=== PATIENT | female | born 1935 | race Caucasian/White ===

== ENCOUNTER → 2016-03-02 | Outpatient (CLI) | payer MEDICARE ==
[~2016-03-02] MED LIST: ALBU2.5V4 INH; ALLP300T PO; APIX2.5T PO; ATEN25TA PO; ATEN50TA PO; ATN25T; BENA1POW2 PO; BENA1TAB2 PO; BENAZAPRIL; BNZ10T PO; BSP10T PO; BUDE10.2 IH; BUSP10TA95 PO; BUSPAR 15 MG; CALC1TAB76; CLON0.5T3 PO; CNC1KV IJ; CYCL10TA9 PO; D50KC PO; DILT90TA PO; DIPH30CR TP; DLT180CCR PO; DOCU100T2 PO; FRSM40T PO; FURO20TA4 PO; HCT25T PO; HCTZ; HYDR-2889 PO; HYDR-3816 PO; HYDR-757 PO; HYDR12.56 PO; ISM30TCR PO; ISM60TCR PO; LISI10TA2 PO; LOSA25TA21 PO; LOSA50TA36 PO; LRZ.5TRX; MAGN400C PO; MGX400T; OMEP-10 PO; POTA10TA6 PO; POTA20TA15 PO; PRAV40TA PO; PROP1TAB77; PRV20T; SLMFT1E; TIOT18CA IH; WARF1TAB6 PO; WARF3TAB6 PO; WARF4TAB70 PO; WRF2T PO
[2016-03-02 16:30] LABS: INR 3.7 (0.8-1.4); PROTHROMBIN TIME PATIENT 36.7 SEC (12.2-14.7)
[2016-03-02 16:35] LABS: CALCIUM 9.7 MG/DL (8.5-10.1); CREATININE SERUM 1.58 MG/DL (0.60-1.30); POTASSIUM 3.3 MMOL/L (3.6-5.0)
== END ==
LOC: LABNPT 16:11
PROVIDERS: ATTEND Family Medicine
DX: I50.9 Heart failure, unspecified (principal); Z79.01 Long term (current) use of anticoagulants
CPT/HCPCS: 80048; 85610

== ENCOUNTER → 2016-03-14 | Outpatient (CLI) | payer MEDICARE ==
[2016-03-14 14:57] LABS: INR 2.2 (0.8-1.4)
== END ==
LOC: HH 14:42
PROVIDERS: ATTEND Internal Medicine Cardiovascular Disease
DX: Z51.81 Encounter for therapeutic drug level monitoring (principal); Z79.01 Long term (current) use of anticoagulants
CPT/HCPCS: 85610

== ENCOUNTER → 2016-03-14 | Outpatient (CLI) | payer MEDICARE ==
[2016-03-14 15:00] LABS: CALCIUM 9.7 MG/DL (8.5-10.1); CREATININE SERUM 1.19 MG/DL (0.60-1.30); POTASSIUM 3.9 MMOL/L (3.6-5.0)
== END ==
LOC: HH 14:41
PROVIDERS: ATTEND Family Medicine
DX: I11.0 Hypertensive heart disease with heart failure (principal); I50.9 Heart failure, unspecified
CPT/HCPCS: 80048

== ENCOUNTER → 2016-04-27 | Outpatient (CLI) | payer MEDICARE ==
[2016-04-27 11:14] LABS: BASOPHILS # (AUTO) 0.1 10^3/uL (0.0-0.1); BASOPHILS % (AUTO) 1 % (0-10); EOSINOPHILS # (AUTO) 0.1 10^3/uL (0.0-0.3); EOSINOPHILS % (AUTO) 1 % (0-10); LYMPHOCYTES # (AUTO) 1.7 X 10^3 (1.0-4.0); LYMPHOCYTES % (AUTO) 19 % (12-44); MEAN CORPUSCULAR HEMOGLOBIN 26 PG (25-34); MEAN CORPUSCULAR HGB CONC 31 G/DL (32-36); MEAN CORPUSCULAR VOLUME 83 FL (80-99); MEAN PLATELET VOLUME 11.2 FL (7.4-10.4); MONOCYTES # (AUTO) 1.1 X 10^3 (0.0-1.0); MONOCYTES % (AUTO) 13 % (0-12); NEUTROPHILS # (AUTO) 5.8 X 10^3 (1.8-7.8); NEUTROPHILS % (AUTO) 67 % (42-75); PLATELET COUNT 414 10^3/uL (130-400); RED BLOOD COUNT 3.96 10^6/uL (4.35-5.85); RED CELL DISTRIBUTION WIDTH 17.6 % (10.0-14.5); WHITE BLOOD COUNT 8.7 10^3/uL (4.3-11.0)
[2016-04-27 11:24] LABS: INR 3.3 (0.8-1.4); PROTHROMBIN TIME PATIENT 33.6 SEC (12.2-14.7)
[2016-04-27 11:45] LABS: ALBUMIN 4.1 G/DL (3.2-4.5); BILIRUBIN,TOTAL 0.4 MG/DL (0.1-1.0); CALCIUM 9.8 MG/DL (8.5-10.1); CREATININE SERUM 1.28 MG/DL (0.60-1.30); POTASSIUM 3.8 MMOL/L (3.6-5.0); TOTAL PROTEIN 7.2 G/DL (6.4-8.2)
== END ==
LOC: HH 11:06
PROVIDERS: ATTEND Family Medicine
DX: I11.0 Hypertensive heart disease with heart failure (principal); I50.9 Heart failure, unspecified; I48.91 Unspecified atrial fibrillation
CPT/HCPCS: 80053; 85025; 85610

== ENCOUNTER → 2016-05-17 | Outpatient (CLI) | payer MEDICARE ==
[2016-05-17 10:55] LABS: BASOPHILS # (AUTO) 0.1 10^3/uL (0.0-0.1); BASOPHILS % (AUTO) 1 % (0-10); EOSINOPHILS # (AUTO) 0.2 10^3/uL (0.0-0.3); EOSINOPHILS % (AUTO) 2 % (0-10); LYMPHOCYTES % (AUTO) 17 % (12-44); MEAN CORPUSCULAR HEMOGLOBIN 27 PG (25-34); MEAN CORPUSCULAR HGB CONC 32 G/DL (32-36); MEAN CORPUSCULAR VOLUME 83 FL (80-99); MEAN PLATELET VOLUME 11.5 FL (7.4-10.4); MONOCYTES # (AUTO) 1.8 X 10^3 (0.0-1.0); MONOCYTES % (AUTO) 16 % (0-12); NEUTROPHILS # (AUTO) 7.5 X 10^3 (1.8-7.8); NEUTROPHILS % (AUTO) 65 % (42-75); PLATELET COUNT 330 10^3/uL (130-400); RED BLOOD COUNT 3.68 10^6/uL (4.35-5.85); RED CELL DISTRIBUTION WIDTH 17.6 % (10.0-14.5); WHITE BLOOD COUNT 11.5 10^3/uL (4.3-11.0)
[2016-05-17 11:10] LABS: PROTHROMBIN TIME PATIENT 39.2 SEC (12.2-14.7)
[2016-05-17 11:19] LABS: ALBUMIN 3.8 G/DL (3.2-4.5); BILIRUBIN,TOTAL 0.4 MG/DL (0.1-1.0); CALCIUM 9.5 MG/DL (8.5-10.1); CREATININE SERUM 1.23 MG/DL (0.60-1.30); POTASSIUM 3.3 MMOL/L (3.6-5.0); TOTAL PROTEIN 7.1 G/DL (6.4-8.2)
[2016-05-17 11:39] LABS: THYROID STIMULATING HORMONE 1.14 UIU/ML (0.35-4.94)
== END ==
LOC: HH 10:41
PROVIDERS: ATTEND Family Medicine
DX: I48.91 Unspecified atrial fibrillation (principal); I50.9 Heart failure, unspecified; D50.9 Iron deficiency anemia, unspecified
CPT/HCPCS: 80053; 84443; 85025; 85610

== ENCOUNTER → 2016-05-23 | Outpatient (CLI) | payer MEDICARE ==
[2016-05-23 11:27] LABS: BILIRUBIN,URINE NEGATIVE (NEGATIVE); KETONES,URINE NEGATIVE (NEGATIVE); LEUKOCYTE ESTERASE ,URINE 1+ (NEGATIVE); NITRITE,URINE NEGATIVE (NEGATIVE); PH,URINE 8 (5-9); PROTEIN,URINE NEGATIVE (NEGATIVE); UROBILINOGEN,URINE NORMAL (NORMAL)
[2016-05-23 11:35] LABS: INR 1.8 (0.8-1.4); PROTHROMBIN TIME PATIENT 20.2 SEC (12.2-14.7)
[2016-05-23 11:40] LABS: WBC,URINE RARE /HPF
== END ==
LOC: HH 11:23
PROVIDERS: ATTEND Family Medicine
DX: Z51.81 Encounter for therapeutic drug level monitoring (principal); Z79.01 Long term (current) use of anticoagulants
CPT/HCPCS: 81000; 85610

== ENCOUNTER → 2016-05-31 | Outpatient (CLI) | payer MEDICARE ==
[2016-05-31 10:13] LABS: INR 1.6 (0.8-1.4); PROTHROMBIN TIME PATIENT 18.6 SEC (12.2-14.7)
[2016-05-31 10:20] LABS: ALBUMIN 3.8 G/DL (3.2-4.5); BILIRUBIN,TOTAL 0.4 MG/DL (0.1-1.0); CALCIUM 9.7 MG/DL (8.5-10.1); CREATININE SERUM 1.26 MG/DL (0.60-1.30); POTASSIUM 4.5 MMOL/L (3.6-5.0); TOTAL PROTEIN 6.8 G/DL (6.4-8.2)
== END ==
LOC: HH 09:55
PROVIDERS: ATTEND Family Medicine
DX: I50.9 Heart failure, unspecified (principal); Z79.01 Long term (current) use of anticoagulants
CPT/HCPCS: 80053; 85610

== ENCOUNTER → 2016-06-15 | Outpatient (CLI) | payer MEDICARE ==
[2016-06-15 16:24] LABS: INR 2.1 (0.8-1.4); PROTHROMBIN TIME PATIENT 23.7 SEC (12.2-14.7)
== END ==
LOC: HH 15:30
PROVIDERS: ATTEND Internal Medicine Cardiovascular Disease
DX: Z51.81 Encounter for therapeutic drug level monitoring (principal); Z79.01 Long term (current) use of anticoagulants
CPT/HCPCS: 85610

== ENCOUNTER → 2016-07-19 | Outpatient (CLI) | payer MEDICARE ==
[2016-07-19 12:16] LABS: INR 2.4 (0.8-1.4); PROTHROMBIN TIME PATIENT 25.7 SEC (12.2-14.7)
[2016-07-19 12:23] LABS: CALCIUM 9.8 MG/DL (8.5-10.1); CREATININE SERUM 1.24 MG/DL (0.60-1.30); POTASSIUM 3.4 MMOL/L (3.6-5.0)
== END ==
LOC: HH 11:58
PROVIDERS: ATTEND Internal Medicine Cardiovascular Disease
DX: I48.91 Unspecified atrial fibrillation (principal); I50.9 Heart failure, unspecified; Z79.01 Long term (current) use of anticoagulants
CPT/HCPCS: 80048; 85610

== ENCOUNTER → 2016-08-16 | Outpatient (CLI) | payer MEDICARE ==
[~2016-08-16] MED LIST changes: -D50KC PO; +ERGO50006 PO
[2016-08-16 12:31] LABS: INR 3.1 (0.8-1.4); PROTHROMBIN TIME PATIENT 32.2 SEC (12.2-14.7)
[2016-08-16 12:36] LABS: CALCIUM 9.7 MG/DL (8.5-10.1); CREATININE SERUM 1.67 MG/DL (0.60-1.30); ICTERUS 0.5 (-100-1.9); POTASSIUM 4.1 MMOL/L (3.6-5.0)
== END ==
LOC: HH 12:30
PROVIDERS: ATTEND Internal Medicine Cardiovascular Disease
DX: I50.9 Heart failure, unspecified (principal); Z79.01 Long term (current) use of anticoagulants
CPT/HCPCS: 80048; 85610

== ENCOUNTER → 2016-09-12 | Outpatient (CLI) | payer MEDICARE ==
[2016-09-12 15:48] LABS: INR 4.4 (0.8-1.4); PROTHROMBIN TIME PATIENT 42.5 SEC (12.2-14.7)
[2016-09-12 15:55] LABS: CALCIUM 9.8 MG/DL (8.5-10.1); CREATININE SERUM 1.52 MG/DL (0.60-1.30); POTASSIUM 4.3 MMOL/L (3.6-5.0)
== END ==
LOC: HH 15:35
PROVIDERS: ATTEND Family Medicine
DX: I50.9 Heart failure, unspecified (principal); Z79.01 Long term (current) use of anticoagulants
CPT/HCPCS: 80048; 85610

== ENCOUNTER → 2016-09-26 | Outpatient (CLI) | payer MEDICARE ==
[2016-09-26 17:23] LABS: INR 1.5 (0.8-1.4); PROTHROMBIN TIME PATIENT 18.2 SEC (12.2-14.7)
== END ==
LOC: HH 16:45
PROVIDERS: ATTEND Internal Medicine Cardiovascular Disease
DX: Z79.01 Long term (current) use of anticoagulants (principal)
CPT/HCPCS: 85610

== ENCOUNTER → 2016-09-29 | Outpatient (CLI) | payer MEDICARE, OTHER ==
[2016-09-29 17:34] LABS: BASOPHILS # (AUTO) 0.1 10^3/uL (0.0-0.1); BASOPHILS % (AUTO) 1 % (0-10); EOSINOPHILS # (AUTO) 0.2 10^3/uL (0.0-0.3); EOSINOPHILS % (AUTO) 2 % (0-10); LYMPHOCYTES # (AUTO) 1.9 X 10^3 (1.0-4.0); LYMPHOCYTES % (AUTO) 17 % (12-44); MEAN CORPUSCULAR HEMOGLOBIN 28 PG (25-34); MEAN CORPUSCULAR HGB CONC 31 G/DL (32-36); MEAN CORPUSCULAR VOLUME 88 FL (80-99); MEAN PLATELET VOLUME 11.5 FL (7.4-10.4); MONOCYTES # (AUTO) 1.4 X 10^3 (0.0-1.0); MONOCYTES % (AUTO) 13 % (0-12); NEUTROPHILS # (AUTO) 7.2 X 10^3 (1.8-7.8); NEUTROPHILS % (AUTO) 68 % (42-75); PLATELET COUNT 314 10^3/uL (130-400); RED BLOOD COUNT 4.26 10^6/uL (4.35-5.85); RED CELL DISTRIBUTION WIDTH 19.9 % (10.0-14.5); WHITE BLOOD COUNT 10.7 10^3/uL (4.3-11.0)
[2016-09-29 17:45] LABS: INR 2.1 (0.8-1.4); PROTHROMBIN TIME PATIENT 23.1 SEC (12.2-14.7)
[2016-09-29 17:53] LABS: ALANINE AMINOTRANSFERASE 10 U/L (0-55); ALBUMIN 4.2 GM/DL (3.2-4.5); ANION GAP 10 MMOL/L (5-14); ASPARTATE AMINO TRANSFERASE 18 U/L (5-34); BILIRUBIN,TOTAL 0.4 MG/DL (0.1-1.0); BLOOD UREA NITROGEN 34 MG/DL (7-18); BUN/CREATININE RATIO 13; CALCIUM 10.5 MG/DL (8.5-10.1); CARBON DIOXIDE 21 MMOL/L (21-32); CHLORIDE 104 MMOL/L (98-107); CREATININE SERUM 2.59 MG/DL (0.60-1.30); GFR ESTIMATED 18; GLUCOSE 123 MG/DL (70-105); POTASSIUM 6.4 MMOL/L (3.6-5.0); SODIUM 135 MMOL/L (135-145); TOTAL PROTEIN 7.8 GM/DL (6.4-8.2)
[2016-09-29 18:12] LABS: THYROID STIMULATING HORMONE 1.34 UIU/ML (0.35-4.94); TROPONIN I < 0.30 NG/ML (<0.30)
== END ==
LOC: CARD 16:56
PROVIDERS: ATTEND Nurse Practitioner Family
DX: R07.9 Chest pain, unspecified (principal); R53.81 Other malaise; R53.83 Other fatigue
CPT/HCPCS: 36415; 80053; 84443; 84484; 85025; 85610; 93005

== ENCOUNTER → 2016-09-30 | Outpatient (CLI) | payer MEDICARE ==
[2016-09-30 13:21] LABS: CREATININE SERUM 2.71 MG/DL (0.60-1.30); POTASSIUM 5.3 MMOL/L (3.6-5.0)
== END ==
LOC: HH 13:03
PROVIDERS: ATTEND Family Medicine
DX: E87.6 Hypokalemia (principal)
CPT/HCPCS: 80048

== ENCOUNTER → 2016-10-03 | Outpatient (CLI) | payer MEDICARE ==
[2016-10-03 10:37] LABS: ALBUMIN 3.9 GM/DL (3.2-4.5); BILIRUBIN,TOTAL 0.4 MG/DL (0.1-1.0); CALCIUM 9.6 MG/DL (8.5-10.1); CREATININE SERUM 2.2 MG/DL (0.60-1.30); POTASSIUM 5.3 MMOL/L (3.6-5.0); TOTAL PROTEIN 6.9 GM/DL (6.4-8.2)
== END ==
LOC: HH 10:13
PROVIDERS: ATTEND Family Medicine
DX: E86.0 Dehydration (principal); I10 Essential (primary) hypertension; Z79.01 Long term (current) use of anticoagulants
CPT/HCPCS: 80053

== ENCOUNTER → 2016-10-06 | Outpatient (CLI) | payer MEDICARE ==
[2016-10-06 09:28] LABS: ALBUMIN 3.9 GM/DL (3.2-4.5); BILIRUBIN,TOTAL 0.4 MG/DL (0.1-1.0); CALCIUM 9.6 MG/DL (8.5-10.1); CREATININE SERUM 1.47 MG/DL (0.60-1.30); POTASSIUM 4.1 MMOL/L (3.6-5.0); TOTAL PROTEIN 6.7 GM/DL (6.4-8.2)
== END ==
LOC: HH 09:00
PROVIDERS: ATTEND Family Medicine
DX: I10 Essential (primary) hypertension (principal); I50.9 Heart failure, unspecified; Z79.01 Long term (current) use of anticoagulants
CPT/HCPCS: 80053

== ENCOUNTER → 2016-10-13 | Outpatient (CLI) | payer MEDICARE ==
[2016-10-13 10:45] LABS: INR 3.2 (0.8-1.4); PROTHROMBIN TIME PATIENT 32.4 SEC (12.2-14.7)
[2016-10-13 10:53] LABS: CALCIUM 9.3 MG/DL (8.5-10.1); CREATININE SERUM 1.39 MG/DL (0.60-1.30)
== END ==
LOC: HH 10:00
PROVIDERS: ATTEND Internal Medicine Cardiovascular Disease
DX: I50.9 Heart failure, unspecified (principal); Z79.02 Long term (current) use of antithrombotics/antiplatelets
CPT/HCPCS: 80048; 85610

== ENCOUNTER → 2016-10-27 | Outpatient (CLI) | payer MEDICARE ==
[2016-10-27 12:38] LABS: INR 2.3 (0.8-1.4); PROTHROMBIN TIME PATIENT 25.3 SEC (12.2-14.7)
[2016-10-27 12:43] LABS: CALCIUM 9.5 MG/DL (8.5-10.1); CREATININE SERUM 1.6 MG/DL (0.60-1.30); POTASSIUM 4.9 MMOL/L (3.6-5.0)
== END ==
LOC: HH 12:12
PROVIDERS: ATTEND Internal Medicine Cardiovascular Disease
DX: I10 Essential (primary) hypertension (principal); Z79.01 Long term (current) use of anticoagulants
CPT/HCPCS: 80048; 85610

== ENCOUNTER → 2016-11-23 | Outpatient (CLI) | payer MEDICARE ==
[2016-11-23 13:27] LABS: INR 1.6 (0.8-1.4); PROTHROMBIN TIME PATIENT 19.4 SEC (12.2-14.7)
[2016-11-23 13:32] LABS: CALCIUM 9.7 MG/DL (8.5-10.1); CREATININE SERUM 1.28 MG/DL (0.60-1.30); POTASSIUM 4.3 MMOL/L (3.6-5.0)
== END ==
LOC: HH 10:00
PROVIDERS: ATTEND Internal Medicine Cardiovascular Disease
DX: Z79.01 Long term (current) use of anticoagulants (principal)
CPT/HCPCS: 80048; 85610

== ENCOUNTER → 2016-12-15 | Outpatient (CLI) | payer MEDICARE | LOC: CARD 10:52 | PROVIDERS: ATTEND Internal Medicine Cardiovascular Disease | DX: I48.2 Chronic atrial fibrillation (principal); I35.1 Nonrheumatic aortic (valve) insufficiency; I10 Essential (primary) hypertension; R07.89 Other chest pain | CPT/HCPCS: 93306 ==

== ENCOUNTER → 2016-12-21 | Outpatient (CLI) | payer MEDICARE, OTHER ==
[2016-12-21 13:50] LABS: CALCIUM 9.4 MG/DL (8.5-10.1); CREATININE SERUM 1.32 MG/DL (0.60-1.30)
== END ==
LOC: HH 13:29
PROVIDERS: ATTEND Family Medicine
DX: I50.9 Heart failure, unspecified (principal)
CPT/HCPCS: 80048

== ENCOUNTER → 2017-02-08 | Outpatient (CLI) | payer MEDICARE ==
[~2017-02-08] VITALS: Ht 157.5 cm; Wt 66.2 kg
[~2017-02-08] MED LIST changes: +CATHETER FLUSH 10 ML SYR IV PRN; +REGADENOSON 0.4 MG/5 ML SYR (LEXISCAN) IV ONE
[2017-02-08 09:12] VITALS: BP 146/69
--- NOTE | 2017-02-08 14:24 | STRESS TEST ---
DATE OF SERVICE: 02/08/2017 LEXISCAN MYOVIEW STRESS TEST: Baseline heart rate is 69, baseline blood pressure 156/65. Baseline EKG is atrial fibrillation with right bundle branch block. SUMMARY: The patient received 10.14 mCi of technetium-99 Myoview and the resting images were obtained. Then, the patient received 0.4 mg of Lexiscan followed by 28.2 mCi of technetium-99 Myoview. Throughout the test, there were no EKG changes. The resting and stress images were reviewed and compared in the short axis, horizontal long axis, and vertical long axis views. Review of the images showed breast attenuation with reversible ischemia involving the mid to apical inferior wall, inferolateral wall and inferoseptum. SSS is 11, SDS 9. TID value 0.87. On the gated images, the left ventricle appeared to be normal size with normal contractility. Calculated ejection fraction 79%. CONCLUSION: 1. The patient tolerated Lexiscan well. 2. Breast attenuation with reversible ischemia involving the mid to apical inferior wall, inferolateral wall and inferoseptum. 3. Normal left ventricular size with normal contractility. Calculated ejection fraction 79%, gated images are unreliable due to underlying atrial fibrillation. Job ID: [id number] DocumentID: [id number] Dictated Date: 02/08/2017 13:26:05 [employer] Date: 02/08/2017 13:58:17 Dictated By: KAYE VENCES MD
== END ==
LOC: CARD 07:14
PROVIDERS: ATTEND Internal Medicine Cardiovascular Disease
DX: I48.2 Chronic atrial fibrillation (principal); I25.10 Atherosclerotic heart disease of native coronary artery without angina pectoris; I34.0 Nonrheumatic mitral (valve) insufficiency; I27.0 Primary pulmonary hypertension; R07.89 Other chest pain; R09.89 Other specified symptoms and signs involving the circulatory and respiratory systems
CPT/HCPCS: 78452; 93017

== ENCOUNTER → 2017-02-13 | Outpatient (CLI) | payer MEDICARE ==
[~2017-02-13] MED LIST changes: -CATHETER FLUSH 10 ML SYR IV PRN; -REGADENOSON 0.4 MG/5 ML SYR (LEXISCAN) IV ONE
[2017-02-13 11:47] LABS: PROTHROMBIN TIME PATIENT 22.6 SEC (12.2-14.7)
[2017-02-13 11:53] LABS: CALCIUM 9.3 MG/DL (8.5-10.1); CREATININE SERUM 1.82 MG/DL (0.60-1.30); POTASSIUM 5.4 MMOL/L (3.6-5.0)
== END ==
LOC: HH 07:00
PROVIDERS: ATTEND Internal Medicine Cardiovascular Disease
DX: Z51.81 Encounter for therapeutic drug level monitoring (principal); I48.91 Unspecified atrial fibrillation; I50.9 Heart failure, unspecified; Z79.01 Long term (current) use of anticoagulants
CPT/HCPCS: 80048; 85610

== ENCOUNTER → 2017-03-14 | Outpatient (CLI) | payer MEDICARE ==
[2017-03-14 12:33] LABS: CALCIUM 9.8 MG/DL (8.5-10.1); CREATININE SERUM 1.56 MG/DL (0.60-1.30); POTASSIUM 5.3 MMOL/L (3.6-5.0)
[2017-03-14 12:37] LABS: INR 2.2 (0.8-1.4); PROTHROMBIN TIME PATIENT 24.6 SEC (12.2-14.7)
== END ==
LOC: HH 07:00
PROVIDERS: ATTEND Internal Medicine Cardiovascular Disease
DX: Z51.81 Encounter for therapeutic drug level monitoring (principal); I50.9 Heart failure, unspecified; Z79.01 Long term (current) use of anticoagulants
CPT/HCPCS: 80048; 85610

== ENCOUNTER → 2017-03-24 | Outpatient (CLI) | payer MEDICARE ==
[2017-03-24 09:36] LABS: BILIRUBIN,URINE NEGATIVE (NEGATIVE); CLARITY,URINE CLEAR; COLOR,URINE YELLOW; GLUCOSE, URINE (UA) NEGATIVE (NEGATIVE); KETONES,URINE NEGATIVE (NEGATIVE); LEUKOCYTE ESTERASE ,URINE 1+ (NEGATIVE); NITRITE,URINE NEGATIVE (NEGATIVE); PH,URINE 5 (5-9); PROTEIN,URINE 1+ (NEGATIVE); UROBILINOGEN,URINE NORMAL (NORMAL)
[2017-03-24 09:47] LABS: BACTERIA,URINE NEGATIVE /HPF
== END ==
LOC: HH 07:00
PROVIDERS: ATTEND Family Medicine
DX: N39.0 Urinary tract infection, site not specified (principal)
CPT/HCPCS: 81000

== ENCOUNTER → 2017-04-05 | Day surgery (SDC) | payer MEDICARE ==
[~2017-04-05] VITALS: Ht 161.3 cm; Wt 64.0 kg
[~2017-04-05] MED LIST changes: +DILT360C29 PO; +ESCI5TAB12 PO; +FURO40TA4 PO; +HEParin (CATH LAB) 0 ML IV ONE; +HYDR-34 PO; -HYDR-3816 PO; +HYDR-3875 PO; +ISOS30TA3 PO; +LIDOCAINE 1% INJ 50 ML (XYLOCAINE) VIAL ONE; +MAGN250T13 PO; +METO-333 PO; +METO5TAB6 PO; +NS IV 1000 ML 0 ML ONE; +NS IV 1000 ML 1,000 ML IV SCH; +NS IV 1000 ML 1,000 ML ONE; +ONDA4TAB10 PO; +POTA10TA10 PO; +WARF-48 PO
[2017-04-05 08:24] VITALS: BP 122/62
[2017-04-05 08:36] LABS: HEMOGLOBIN 10.8 G/DL (11.5-16.0); MEAN PLATELET VOLUME 11.5 FL (7.4-10.4); RED BLOOD COUNT 3.81 10^6/uL (4.35-5.85); RED CELL DISTRIBUTION WIDTH 16.4 % (10.0-14.5); WHITE BLOOD COUNT 13.5 10^3/uL (4.3-11.0)
[2017-04-05 08:38] LABS: CLARITY,URINE CLEAR; COLOR,URINE YELLOW; GLUCOSE, URINE (UA) NEGATIVE (NEGATIVE); KETONES,URINE NEGATIVE (NEGATIVE); LEUKOCYTE ESTERASE ,URINE 3+ (NEGATIVE); NITRITE,URINE NEGATIVE (NEGATIVE); PH,URINE 5 (5-9); PROTEIN,URINE 1+ (NEGATIVE); UROBILINOGEN,URINE 1 MG/DL (NORMAL)
[2017-04-05 08:50] LABS: INR 3.2 (0.8-1.4); PROTHROMBIN TIME PATIENT 32.6 SEC (12.2-14.7)
[2017-04-05 08:56] LABS: BACTERIA,URINE TRACE /HPF; BILIRUBIN,URINE 2+ (NEGATIVE); HYALINE CASTS, URINE 25-50 /LPF; RBC,URINE RARE /HPF; WBC,URINE 25-50 /HPF
[2017-04-05 08:57] LABS: ALBUMIN 4.2 GM/DL (3.2-4.5); BILIRUBIN,TOTAL 0.5 MG/DL (0.1-1.0); CALCIUM 9.8 MG/DL (8.5-10.1); CREATININE SERUM 4.41 MG/DL (0.60-1.30); POTASSIUM 4.6 MMOL/L (3.6-5.0); TOTAL PROTEIN 7.7 GM/DL (6.4-8.2)
--- NOTE | 2017-04-05 08:59 | Diagnostic Imaging Report ---
Portable erect AP chest at 845 hours. INDICATION: Coronary artery disease, chest wall heaviness. FINDINGS: The cardiomegaly noted on the prior exam of 12/04/2014 is again evident. The heart does seem somewhat larger than on the previous study. The lungs are clear. There is no sign of failure, pneumonia or pleural effusion to suggest an acute abnormality. The mediastinum is not widened. The osseous structures are intact. Surgical clips are again seen overlying the gastroesophageal junction. IMPRESSION: The heart is enlarged and the heart does seem more prominent than on the prior exam. There is no evidence for an acute cardiopulmonary abnormality, however. Dictated by: Dictated on workstation # [id number]
--- OUTSIDE RECORDS SUMMARY | 2017-04-05 11:08 | XMS REPORT | CCD ---
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 Name Role Phone PP Unavailable CCM Unavailable Summary Purpose Interface Exchange Insurance Providers Payer name Policy type / Coverage type Covered constitution party ID Effective Begin Date Effective End Date WPS Medicare Part B Medicare Part B [id number] Unknown Unknown Family history Mother Diagnosis Age At Onset Hypertension Unknown Heart Attack Unknown Social History Social History Element Codes Description Effective Dates Marital status Unknown 07/15/2014 Marital status Unknown 07/15/2014 Number of children Unknown 0 07/15/2014 Number of children Unknown 0 07/15/2014 Employment Unknown Retired 07/15/2014 Employment Unknown Retired 07/15/[address]: 755073636 Has never smoked or chewed tobacco 07/15/[address]: 241379447 Has never smoked or chewed tobacco 07/15/[address]: 378823357 Never drinks alcohol 07/15/[address]: 755168864 Never drinks alcohol 07/15/2014 Allergies, Adverse Reactions, Alerts Allergies, Adverse Reactions, Alerts data not found Past Medical History Illness Codes Condition Status Onset Date Resolved Date Essential (primary) hypertension ICD-9: 401.9 ICD-10: I10 Active 01/13/2016 Unknown Generalized anxiety disorder ICD-9: 300.02 ICD-10: F41.1 Active 01/13/2016 Unknown Localized edema ICD-9 : 782.3 ICD-10: R60.0 Active 01/13/2016 Unknown Paroxysmal atrial fibrillation ICD-9: 427.31 ICD-10: I48.0 Active 01/13/2016 Unknown Major depressive disorder, single episode, unspecified ICD-9: 311 ICD-10: F32.9 Active 03/30/2015 Unknown Other chest pain ICD-9 : 786.59 ICD-10: R07.89 Active 09/29/2016 Unknown Other malaise ICD-9: 780.79 ICD-10: R53.81 Active 09/29/2016 Unknown Low back pain ICD-9: 724.2 ICD-10: M54.5 Active 09/13/2016 Unknown Acute recurrent maxillary sinusitis ICD-9: 461.0 ICD-10: J01.01 Active 01/13/2016 Unknown Encounter for immunization ICD-9: V04.81 ICD-10: Z23 Active 12/09/2015 Unknown 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 Active 06/22/2015 Unknown Encounter for therapeutic drug level monitoring ICD-9: V58.83 ICD-10: Z51.81 Active 06/01/2015 Unknown penitentiary (current) use of anticoagulants ICD-9: V58.61 ICD-10: Z79.01 Active 03/30/2015 Unknown Vitamin D deficiency, unspecified ICD-9: 268.9 ICD-10: E55.9 Active 03/30/2015 Unknown Allergic rhinitis due to pollen ICD-9: 477.0 ICD-10: J30.1 Active 01/29/2015 Unknown Diarrhea, unspecified ICD-9: 787.91 ICD-10: R19.7 Active 12/21/2014 Unknown DYSURIA ICD-9: 788.1 Active 11/06/2014 Unknown Anticoagulated on Coumadin ICD-9: V58.83 Active 07/23/2014 Unknown Cough ICD-9: 786.2 Active 07/14/2014 Unknown DYSPHAGIA, PHARYNGEAL ICD-9: 787.23 Active 10/28/2014 Unknown Low back pain ICD-9: 724.2 Active 10/13/2014 Unknown MUSCLE WEAKNESS-GENERAL ICD-9: 728.87 Active 10/13/2014 Unknown DYSPHAGIA, NOS ICD-9: 787.20 Active 10/13/2014 Unknown Pneumonia ICD-9: 486 Active 10/13/2014 Unknown ESOPHAGEAL REFLUX ICD- 9: 530.81 Active 09/18/2014 Unknown SLEEP RELATED LEG CRAMPS ICD-9: 327.52 Active 09/18/2014 Unknown VITAMIN D DEFICIENCY ICD-9: 268.9 Active 09/18/2014 Unknown EDEMA ICD-9: 782.3 Active 08/21/2014 Unknown Skin irritation ICD-9 : 709.9 Active 07/23/2014 Unknown Depression Unknown Active 07/15/2014 Unknown Diabetes Unknown Active 07/15/2014 Unknown Hyperlipidemia Unknown Active 07/15/2014 Unknown Hypertension Unknown Active 07/15/2014 Unknown Atrial fibrillation ICD-9: 427.31 Active 07/14/2014 Unknown DEPRESSIVE DISORDER NEC ICD-9: 311 Active 07/14/2014 Unknown ESSENTIAL HYPERTENSION ICD-9: 401.9 Active 07/14/2014 Unknown LONG-TERM USE ANTICOAGUL ICD-9: V58.61 Active 07/14/2014 Unknown Problems Condition Codes Effective Dates Condition Status Essential (primary) hypertension ICD-9: 401.9 ICD-10: I10 01/13/2016 Active Generalized anxiety disorder ICD-9: 300.02 ICD-10: F41.1 01/13/2016 Active Localized edema ICD-9 : 782.3 ICD-10: R60.0 01/13/2016 Active Paroxysmal atrial fibrillation ICD-9: 427.31 ICD-10: I48.0 01/13/2016 Active Major depressive disorder, single episode, unspecified ICD-9: 311 ICD-10: F32.9 03/30/2015 Active Other chest pain ICD-9 : 786.59 ICD-10: R07.89 09/29/2016 Active Other malaise ICD-9: 780.79 ICD-10: R53.81 09/29/2016 Active Low back pain ICD-9: 724.2 ICD-10: M54.5 09/13/2016 Active Acute recurrent maxillary sinusitis ICD-9: 461.0 ICD-10: J01.01 01/13/2016 Active Encounter for immunization ICD-9: V04.81 ICD-10: Z23 12/09/2015 Active 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 06/22/2015 Active Encounter for therapeutic drug level monitoring ICD-9: V58.83 ICD-10: Z51.81 06/01/2015 Active penitentiary (current) use of anticoagulants ICD-9: V58.61 ICD-10: Z79.01 03/30/2015 Active Vitamin D deficiency, unspecified ICD-9: 268.9 ICD-10: E55.9 03/30/2015 Active Allergic rhinitis due to pollen ICD-9: 477.0 ICD-10: J30.1 01/29/2015 Active Diarrhea, unspecified ICD-9: 787.91 ICD-10: R19.7 12/21/2014 Active DYSURIA ICD-9: 788.1 11/06/2014 Active Anticoagulated on Coumadin ICD-9: V58.83 07/23/2014 Active Cough ICD-9: 786.2 07/14/2014 Active DYSPHAGIA, PHARYNGEAL ICD-9: 787.23 10/28/2014 Active Low back pain ICD-9: 724.2 10/13/2014 Active MUSCLE WEAKNESS-GENERAL ICD-9: 728.87 10/13/2014 Active DYSPHAGIA, NOS ICD-9: 787.20 10/13/2014 Active Pneumonia ICD-9: 486 10/13/2014 Active ESOPHAGEAL REFLUX ICD- 9: 530.81 09/18/2014 Active SLEEP RELATED LEG CRAMPS ICD-9: 327.52 09/18/2014 Active VITAMIN D DEFICIENCY ICD-9: 268.9 09/18/2014 Active EDEMA ICD-9: 782.3 08/21/2014 Active Skin irritation ICD-9 : 709.9 07/23/2014 Active Depression Unknown 07/15/2014 Active Diabetes Unknown 07/15/2014 Active Hyperlipidemia Unknown 07/15/2014 Active Hypertension Unknown 07/15/2014 Active Atrial fibrillation ICD-9: 427.31 07/14/2014 Active DEPRESSIVE DISORDER NEC ICD-9: 311 07/14/2014 Active ESSENTIAL HYPERTENSION ICD-9: 401.9 07/14/2014 Active LONG-TERM USE ANTICOAGUL ICD-9: V58.61 07/14/2014 Active Medications Medication Codes Instructions Start Date Stop Date Status Fill Instructions Tamiflu 75 mg capsule RxNorm: 112751 1 Capsule(s) PO BID 201703/27/2017 Active Zofran 4 mg tablet RxNorm: 985620 1 Tablet(s) PO QID as needed nausea 03/23/2017 06/20/2017 Active Zofran 4 mg tablet RxNorm: 150786 1 Tablet(s) PO QID as needed nausea 03/23/2017 03/22/2017 Inactive Tamiflu 75 mg capsule RxNorm: 342701 1 Capsule(s) PO BID 201703/22/2017 Inactive lisinopril 10 mg tablet RxNorm: 242796 TAKE ONE-HALF TABLET BY MOUTH DAILY 03/10/2017 06/02/2018 Active metolazone 5 mg tablet RxNorm: 439064 1 Tablet(s) PO TIW 201703/01/2018 Active hydrocodone 7.5 mg-acetaminophen 325 mg tablet RxNorm: 734716 1-2 Tablet(s) PO Q4- 6H as needed pain 02/23/2017 No Stop Date Active omeprazole 20 mg capsule,delayed release RxNorm: 904015 Capsule(s) TAKE ONE CAPSULE BY MOUTH TWICE A DAY 02/08/2017 Active metolazone 5 mg tablet RxNorm: 118960 TAKE 1 TABLET BY MOUTH TWICE WEEKLY 02/08/2017 03/06/2017 Inactive Lexapro 5 mg tablet RxNorm: 672568 1 Tablet(s) PO QPM 201603/06/2017 Inactive hydrocodone 7.5 mg-acetaminophen 325 mg tablet RxNorm: 883929 1-2 Tablet(s) PO Q4- 6H as needed pain 01/16/2017 02/22/2017 Inactive Lasix 40 mg tablet RxNorm: 445884 TAKE ONE TABLET BY MOUTH DAILY 01/11/2017 10/07/2017 Active metoprolol tartrate 25 mg tablet RxNorm: 373123 TAKE 1/2 TABLET BY MOUTH TWO TIMES A DAY 01/11/2017 07/09/2017 Active allopurinol 300 mg tablet RxNorm: 065396 TAKE ONE TABLET BY MOUTH DAILY 01/09/2017 06/07/2017 Active hydrocodone 7.5 mg-acetaminophen 325 mg tablet RxNorm: 115770 1-2 Tablet(s) PO Q4- 6H as needed pain 12/06/2016 01/15/2017 Inactive lisinopril 10 mg tablet RxNorm: 499352 TAKE ONE-HALF TABLET BY MOUTH DAILY 12/02/2016 03/09/2017 Inactive buspirone 10 mg tablet RxNorm: 353730 TAKE ONE TABLET BY MOUTH THREE TIMES A DAY 10/25/2016 01/22/2017 Inactive buspirone 10 mg tablet RxNorm: 311882 TAKE ONE TABLET BY MOUTH THREE TIMES A DAY 10/25/2016 10/24/2016 Inactive hydrocodone 7.5 mg-acetaminophen 325 mg tablet RxNorm: 370738 1-2 or 2 Tablet(s) PO Q4-6H as needed pain 10/25/20162016 Inactive cyanocobalamin (vit B-12) 1,000 mcg/mL injection solution RxNorm: 367959 INJECT 1 ML INTRAMUSCULARLY 2 TIMES A MONTH FOR 2 MONTHS, THEN ONCE A MONTH THEREAFTER 10/24/2016 02/12/2017 Inactive metolazone 5 mg tablet RxNorm: 690818 TAKE 1 TABLET BY MOUTH TWICE WEEKLY 09/23/2016 01/12/2017 Inactive hydrocodone 7.5 mg-acetaminophen 325 mg tablet RxNorm: 385030 1-2 or 2 Tablet(s) PO Q4-6H as needed pain 09/13/20162016 Inactive Keflex 500 mg capsule RxNorm: 831548 1 Capsule(s) PO TID 201609/15/2016 Inactive Take with a probiotic BID Keflex 500 mg capsule RxNorm: 672900 1 Capsule(s) PO TID 201609/08/2016 Inactive Take with a probiotic BID metoprolol tartrate 25 mg tablet RxNorm: 835706 TAKE 1/2 TABLET BY MOUTH TWO TIMES A DAY 09/07/2016 01/04/2017 Inactive potassium chloride ER 10 mEq tablet,extended release RxNorm: 041758 TAKE TWO TABLETS BY MOUTH THREE TIMES A DAY 09/01/2016 02/27/2017 Inactive hydrocodone 7.5 mg-acetaminophen 325 mg tablet RxNorm: 376251 1 or 2 Tablet(s) PO Q4-6H as needed pain 08/31/20162016 Inactive omeprazole 20 mg capsule,delayed release RxNorm: 761372 TAKE ONE CAPSULE BY MOUTH TWICE A DAY 08/24/2016 02/07/2017 Inactive hydrocodone 7.5 mg-acetaminophen 325 mg tablet RxNorm: 580534 1 or 2 Tablet(s) PO Q4-6H as needed pain 08/05/20162016 Inactive lisinopril 10 mg tablet RxNorm: 429859 TAKE ONE-HALF TABLET BY MOUTH DAILY 07/28/2016 12/01/2016 Inactive hydrocodone 7.5 mg-acetaminophen 325 mg tablet RxNorm: 873455 1 or 2 Tablet(s) PO Q4-6H as needed pain 07/05/20162016 Inactive allopurinol 300 mg tablet RxNorm: 594660 TAKE ONE TABLET BY MOUTH DAILY 06/16/2016 12/12/2016 Inactive metoprolol tartrate 25 mg tablet RxNorm: 222895 TAKE 1/2 TABLET BY MOUTH TWO TIMES A DAY 06/16/2016 08/14/2016 Inactive buspirone 10 mg tablet RxNorm: 633211 TAKE ONE TABLET BY MOUTH THREE TIMES A DAY 06/15/2016 10/12/2016 Inactive hydrocodone 7.5 mg-acetaminophen 325 mg tablet RxNorm: 416763 1 or 2 Tablet(s) PO Q4-6H as needed pain 06/07/20162016 Inactive metoprolol tartrate 25 mg tablet RxNorm: 765855 1/2 Tablet(s) PO QPM 05/10/2016 06/08/2016 Inactive lisinopril 10 mg tablet RxNorm: 386719 1/2 Tablet(s) PO daily 04/26/2016 07/27/2016 Inactive hydrocodone 7.5 mg-acetaminophen 325 mg tablet RxNorm: 020554 1 or 2 Tablet(s) PO Q4-6H as needed pain 04/25/20162016 Inactive lisinopril 10 mg tablet RxNorm: 353685 1/2 Tablet(s) PO daily 04/25/2016 04/25/2016 Inactive metoprolol tartrate 25 mg tablet RxNorm: 112375 1/2 Tablet(s) PO BID 04/25/2016 05/09/2016 Inactive allopurinol 300 mg tablet RxNorm: 611006 TAKE ONE TABLET BY MOUTH DAILY 04/19/2016 06/15/2016 Inactive metolazone 5 mg tablet RxNorm: 201607 TAKE 1 TABLET BY MOUTH TWICE WEEKLY 04/19/2016 09/05/2016 Inactive warfarin 5 mg tablet RxNorm: 847633 1 Tablet(s) PO daily TAKE ONE TABLET BY MOUTH DAILY 03/21/2016 03/15/[address] Echevarria manages potassium chloride ER 10 mEq tablet,extended release RxNorm: 803105 2 Tablet(s) PO TID 03/21/2016 08/17/2016 Inactive potassium chloride ER 10 mEq tablet,extended release(part/ cryst) RxNorm: 2145963 2 Tablet(s) PO TID 03/11/2016 03/20/2016 Inactive Xanax 0.25 mg tablet RxNorm: 462575 1 Tablet(s) PO TID as needed anxiety 03/10/2016 04/08/2016 Inactive Xanax 0.25 mg tablet RxNorm: 065604 1 Tablet(s) PO TID as needed anxiety 03/10/2016 04/06/2016 Inactive hydrocodone 7.5 mg-acetaminophen 325 mg tablet RxNorm: 958760 1 or 2 Tablet(s) PO Q4-6H as needed pain 02/26/20162016 Inactive Flonase Allergy Relief 50 mcg/actuation nasal spray, suspension RxNorm: 5222353 1 [place] NASAL each nare daily 01/19/2016 03/18/2016 Inactive cefdinir 300 mg capsule RxNorm: 098376 1 Capsule(s) PO BID 01/23/2016 Inactive take probiotic BID x 7 days Flonase Allergy Relief 50 mcg/actuation nasal spray, suspension RxNorm: 4567544 1 [place] NASAL each nare daily 01/19/2016 01/18/2016 Inactive allopurinol 300 mg tablet RxNorm: 600723 TAKE ONE TABLET BY MOUTH DAILY 01/18/2016 04/16/2016 Inactive Lasix 40 mg tablet RxNorm: 740707 1 Tablet(s) PO daily 201501/07/2017 Inactive (this was only twice daily x1 week) now it's daily cefdinir 300 mg capsule RxNorm: 127849 1 Capsule(s) PO BID 01/17/2016 Inactive take probiotic BID x 7 days cefdinir 300 mg capsule RxNorm: 957077 1 Capsule(s) PO BID 01/10/2016 Inactive buspirone 10 mg tablet RxNorm: 385223 TAKE ONE TABLET BY MOUTH THREE TIMES A DAY 01/11/2016 06/08/2016 Inactive hydrocodone 7.5 mg-acetaminophen 325 mg tablet RxNorm: 689045 1 or 2 Tablet(s) PO Q4-6H as needed pain 12/28/20152015 Inactive potassium chloride ER 10 mEq tablet,extended release(part/ cryst) RxNorm: 8450153 2 po TID x 2 days then 2 po BID Tablet(s) 12/28/2015 03/10/2016 Inactive potassium chloride ER 10 mEq tablet,extended release(part/ cryst) RxNorm: 1491231 TAKE ONE TABLET BY MOUTH TWICE A DAY FOR 1 WEEK THEN RETURN TO DAILY 12/28/2015 12/27/2015 Inactive meclizine 25 mg tablet RxNorm: 960106 1 Tablet(s) PO BID PRN No Stop Date Active potassium chloride ER 10 mEq tablet,extended release(part/ cryst) RxNorm: 3681272 1 Tablet(s) PO TID 12/08/2015 03/10/2016 Inactive potassium chloride ER 10 mEq tablet,extended release(part/ cryst) RxNorm: 4552822 2 Tablet(s) PO daily 11/26/20152015 Inactive cyanocobalamin (vit B-12) 1,000 mcg/mL injection solution RxNorm: 859538 INJECT 1 ML INTRAMUSCULARLY 2 TIMES A MONTH FOR 2 MONTHS, THEN ONCE A MONTH THEREAFTER 11/26/2015 04/23/2016 Inactive potassium chloride ER 10 mEq tablet,extended release(part/ cryst) RxNorm: 9351935 3 Tablet(s) PO daily 11/23/20152015 Inactive Lasix 40 mg tablet RxNorm: 726755 1 Tablet(s) PO daily 201501/13/2016 Inactive (this was only twice daily x1 week) now it's daily metolazone 5 mg tablet RxNorm: 150169 1 Tablet(s) BIW TAKE ONE TABLET BY MOUTH DAILY 11/12/2015 04/18/2016 Inactive hydrocodone 7.5 mg-acetaminophen 325 mg tablet RxNorm: 124234 1 or 2 Tablet(s) PO Q4-6H as needed pain 11/12/20152015 Inactive Lasix 40 mg tablet RxNorm: 881064 1 Tablet(s) PO daily 201511/11/2015 Inactive (this was only twice daily x1 week) now it's daily metolazone 5 mg tablet RxNorm: 871517 Tablet(s) TAKE ONE TABLET BY MOUTH DAILY 10/22/2015 10/29/2015 Inactive potassium chloride ER 10 mEq tablet,extended release(part/ cryst) RxNorm: 1759439 1 Tablet(s) PO daily 10/08/20152015 Inactive twice daily x 1 week then return to daily Lasix 40 mg tablet RxNorm: 223591 1 Tablet(s) PO daily 201511/09/2015 Inactive twice daily x 1 week then daily thereafter Keflex 500 mg capsule RxNorm: 594512 1 Capsule(s) PO TID 201510/02/2015 Inactive Keflex 500 mg capsule RxNorm: 666059 1 Capsule(s) PO TID 201509/22/2015 Inactive hydrocodone 7.5 mg-acetaminophen 325 mg tablet RxNorm: 170414 1 or 2 Tablet(s) PO Q4-6H as needed pain 09/22/20152015 Inactive potassium chloride ER 10 mEq tablet,extended release(part/ cryst) RxNorm: 9783262 1 Tablet(s) PO BID 09/22/2015 10/07/2015 Inactive twice daily x 1 week then return to daily Lasix 40 mg tablet RxNorm: 361178 1 Tablet(s) PO BID 201510/07/2015 Inactive twice daily x 1 week then daily thereafter allopurinol 300 mg tablet RxNorm: 695410 1 Tablet(s) PO daily 09/09/2015 01/06/2016 Inactive diltiazem 90 mg tablet RxNorm: 242103 Tablet(s) TAKE ONE TABLET BY MOUTH THREE TIMES A DAY 09/02/2015 01/28/2016 Inactive diltiazem 90 mg tablet RxNorm: 158102 TAKE ONE TABLET BY MOUTH THREE TIMES A DAY 08/31/2015 01/28/2016 Inactive diltiazem 90 mg tablet RxNorm: 484980 TAKE ONE TABLET BY MOUTH THREE TIMES A DAY 08/31/2015 09/01/2015 Inactive Xanax 0.25 mg tablet RxNorm: 191329 1 Tablet(s) PO TID as needed anxiety 08/28/2015 09/26/2015 Inactive Xanax 0.25 mg tablet RxNorm: 361129 1 Tablet(s) PO TID as needed anxiety 08/28/2015 08/27/2015 Inactive potassium chloride ER 10 mEq tablet,extended release(part/ cryst) RxNorm: 669386 TAKE ONE TABLET BY MOUTH DAILY 08/27/2015 2015 Inactive omeprazole 20 mg capsule,delayed release RxNorm: 127564 TAKE ONE CAPSULE BY MOUTH TWICE A DAY 08/16/2015 02/11/2016 Inactive omeprazole 20 mg capsule,delayed release RxNorm: 745036 TAKE ONE CAPSULE BY MOUTH TWICE A DAY 08/16/2015 08/15/2015 Inactive hydrocodone 7.5 mg-acetaminophen 325 mg tablet RxNorm: 899346 1 or 2 Tablet(s) PO Q4-6H as needed pain 08/11/20152015 Inactive omeprazole 20 mg capsule,delayed release RxNorm: 650196 Capsule(s) TAKE ONE CAPSULE BY MOUTH TWICE A DAY 08/03/2015 Inactive omeprazole 20 mg capsule,delayed release RxNorm: 865631 Capsule(s) TAKE ONE CAPSULE BY MOUTH TWICE A DAY 07/31/2015 Inactive buspirone 10 mg tablet RxNorm: 179907 TAKE ONE TABLET BY MOUTH THREE TIMES A DAY 07/13/2015 01/08/2016 Inactive metolazone 5 mg tablet RxNorm: 857796 TAKE ONE TABLET BY MOUTH DAILY 07/02/2015 07/09/2015 Inactive metolazone 5 mg tablet RxNorm: 228259 1 Tablet(s) PO daily 06/18/2015 Inactive metolazone 5 mg tablet RxNorm: 134712 1 Tablet(s) PO daily 06/14/2015 Inactive hydrocodone 7.5 mg-acetaminophen 325 mg tablet RxNorm: 677532 1or2 1 or 2 Tablet(s ) PO Q4-6H as needed pain 06/12/201507/10 Inactive warfarin 1 mg tablet RxNorm: 638445 1 Tablet(s) 04/15/2015 06/22/2015 Inactive take with 3mg to make 4mg on Mon and repeat in 1 week. hydrocodone 7.5 mg-acetaminophen 325 mg tablet RxNorm: 450846 1or2 or 2 Tablet(s) PO Q4-6H as needed pain 03/31/20152015 Inactive hydrocodone 7.5 mg-acetaminophen 325 mg tablet RxNorm: 344017 1or2 or 2 Tablet(s) PO Q4-6H as needed pain 03/25/20152015 Inactive warfarin 5 mg tablet RxNorm: 788370 1 Tablet(s) PO daily TAKE ONE TABLET BY MOUTH DAILY 03/05/2015 06/22/2015 Inactive Xarelto 20 mg tablet RxNorm: 3079250 1 Tablet(s) PO QPM 201503/04/2015 Inactive losartan 100 mg tablet RxNorm: 759270 1 Tablet(s) PO daily 05/201406/22/2015 Inactive [SAVINGS FOR NON-COVERED DRUGS -- BIN:[id number], PCN: ASPROD1, Group: XXXXX, ID# [id number], Questions: . THIS IS NOT INSURANCE.] Kenalog 40 mg/mL suspension for injection RxNorm: 6214826 1 Milliliter(s) Inj 01/30/2015 01/30/2015 Inactive hydrocodone 7.5 mg-acetaminophen 325 mg tablet RxNorm: 496544 1or2 or 2 Tablet(s) PO Q4-6H as needed pain 01/15/20152014 Inactive Lasix 40 mg tablet RxNorm: 211062 1 Tablet(s) PO daily 201409/21/2015 Inactive as needed for swelling-take potassium when you take lasix potassium chloride ER 10 mEq tablet,extended release(part/ cryst) RxNorm: 199490 2 Tablet(s) PO daily 01/06/2015 01/19/2015 Inactive Lasix 40 mg tablet RxNorm: 068161 1 Tablet(s) PO daily 201401/06/2015 Inactive Ok to fill 20mg, not 40mg as needed for swelling-take potassium when you take lasix potassium chloride ER 10 mEq tablet,extended release(part/ cryst) RxNorm: 638783 1 Tablet(s) PO BID 12/30/2014 01/05/2015 Inactive Vitamin D2 50,000 unit capsule RxNorm: 929536 TAKE 1 CAPSULE BY MOUTH ONCE WEEKLY FOR 12 WEEKS 12/30/2014 03/23/2015 Inactive potassium chloride ER 10 mEq tablet,extended release(part/ cryst) RxNorm: 389743 1 Tablet(s) PO daily 12/26/2014 12/29/2014 Inactive potassium chloride ER 10 mEq tablet,extended release(part/ cryst) RxNorm: 095942 1 Tablet(s) PO daily 12/26/2014 12/25/2014 Inactive omeprazole 20 mg capsule,delayed release RxNorm: 498307 TAKE ONE CAPSULE BY MOUTH TWICE A DAY 12/24/2014 07/21/2015 Inactive Flagyl 500 mg tablet RxNorm: 847962 1 Tablet(s) PO TID 201412/20/2014 Inactive Flagyl 500 mg tablet RxNorm: 306430 1 Tablet(s) PO TID 201412/10/2014 Inactive warfarin 3 mg tablet RxNorm: 087634 TAKE ONE TABLET BY MOUTH DAILY 11/13/2014 01/29/2015 Inactive warfarin 3 mg tablet RxNorm: 132252 TAKE ONE TABLET BY MOUTH DAILY 11/13/2014 01/29/2015 Inactive warfarin 3 mg tablet RxNorm: 878443 TAKE ONE TABLET BY MOUTH DAILY 11/13/2014 03/04/2015 Inactive warfarin 3 mg tablet RxNorm: 304846 1 Tablet(s) PO daily 201403/04/2015 Inactive allopurinol 300 mg tablet RxNorm: 930419 1 Tablet(s) PO daily 11/11/2014 03/10/2015 Inactive hydrocodone 7.5 mg-acetaminophen 325 mg tablet RxNorm: 346174 1or2 or 2 Tablet(s) PO Q4-6H as needed pain 11/10/20142014 Inactive hydrocodone 7.5 mg-acetaminophen 325 mg tablet RxNorm: 204786 1or2 or 2 Tablet(s) PO Q4-6H as needed pain 10/15/20142014 Inactive hydrocodone 7.5 mg-acetaminophen 325 mg tablet RxNorm: 315665 1or2 or 2 Tablet(s) PO Q4-6H as needed pain 10/15/20142014 Inactive Kenalog 40 mg/mL suspension for injection RxNorm: 2440135 Milliliter(s) Inj 10/14/2014 10/14/2014 Inactive ceftriaxone 500 mg solution for injection RxNorm: 8254018 Inj 10/14/2014 10/14/2014 Inactive Zithromax Z-Chito 250 mg tablet RxNorm: 901474 1 Tablet(s) PO UD 10/14/2014 01/29/2015 Inactive zpack cefdinir 300 mg capsule RxNorm: 145534 1 Capsule(s) PO BID 10/20/2014 Inactive Vitamin D2 50,000 unit capsule RxNorm: 930281 1 Capsule(s) PO weekly x 12 weeks 09/24/2014 09/23/2014 Inactive Vitamin D2 50,000 unit capsule RxNorm: 661425 1 Capsule(s) PO weekly x 12 weeks 09/24/2014 12/22/2014 Inactive warfarin 1 mg tablet RxNorm: 908893 TAKE 1/2 TABLET BY MOUTH DAILY WITH 3MG TABLET TO EQUAL 3.5MG DAILY 09/22/201404/2014 Inactive warfarin 1 mg tablet RxNorm: 288010 1/2 Tablet(s) PO daily 3.5mg 08/26/2014 2014 Inactive taking with a 3mg to make 3.5mg tablets Lasix 20 mg tablet RxNorm: 986381 1 Tablet(s) PO QDAY PRN 09/24/2014 Inactive Ok to fill 20mg, not 40mg as needed for swelling-take potassium when you take lasix buspirone 10 mg tablet RxNorm: 492379 1 Tablet(s) PO TID 201411/25/2014 Inactive takes it BID but if she feels anxious she takes one during the day Lasix 20 mg tablet RxNorm: 427147 1 Tablet(s) PO QDAY PRN 08/25/2014 Inactive as needed for swelling-take potassium when you take lasix warfarin 1 mg tablet RxNorm: 499574 1/2 Tablet(s) PO daily 3.5mg 08/15/2014 08/21/2014 Inactive taking with a 3mg to make 3.5mg tablets warfarin 3 mg tablet RxNorm: 584078 1 Tablet(s) PO daily 201410/11/2014 Inactive diltiazem 90 mg tablet RxNorm: 441859 1 Tablet(s) PO TID 201408/30/2015 Inactive warfarin 1 mg tablet RxNorm: 021066 1/2 Tablet(s) PO daily 3.5mg 08/05/2014 08/11/2014 Inactive taking with a 3mg to make 3.5mg tablets cyclobenzaprine 10 mg tablet RxNorm: 017905 1 Tablet(s) PO QHS 08/04/2014 11/01/2014 Inactive buspirone 10 mg tablet RxNorm: 334181 1 Tablet(s) PO QID 201408/21/2014 Inactive allopurinol 300 mg tablet RxNorm: 784808 1 Tablet(s) PO daily 08/04/2014 11/01/2014 Inactive clonazepam 0.5 mg tablet RxNorm: 517574 1 Tablet(s) PO daily 09/02/2014 Inactive omeprazole 20 mg capsule,delayed release RxNorm: 328288 1 Capsule(s) PO BID 08/04/2014 11/01/2014 Inactive atenolol 25 mg tablet RxNorm: 129790 1 Tablet(s) PO daily 201411/01/2014 Inactive warfarin 3 mg tablet RxNorm: 263131 1 Tablet(s) PO daily 201408/04/2014 Inactive diphenhydramine 2 % topical cream RxNorm: 2876179 1 Application TOP Q6 PRN 07/24/2014 01/29/2015 Inactive diltiazem 90 mg tablet RxNorm: 547789 1 Tablet(s) PO BID 201408/04/2014 Inactive cyclobenzaprine 10 mg tablet RxNorm: 452142 1 Tablet(s) PO QH 07/24/2014 08/03/2014 Inactive warfarin 2.5 mg tablet RxNorm: 557369 1 Tablet(s) PO daily 08/22/2014 Inactive [SAVINGS FOR NON-COVERED DRUGS -- BIN:[id number], PCN: ASPROD1, Group: XXXXX, ID# [id number], Questions: . THIS IS NOT INSURANCE.] losartan 25 mg tablet RxNorm: 706444 1 Tablet(s) PO daily 201401/29/2015 Inactive [SAVINGS FOR NON-COVERED DRUGS -- BIN:[id number], PCN: ASPROD1, Group: XXXXX, ID # [id number], Questions: . THIS IS NOT INSURANCE.] isosorbide mononitrate oral RxNorm: 6057 oral No Start Date Active diltiazem ER 360 mg tablet,extended release 24 hr RxNorm: 137646 1 Tablet(s) PO daily No Start Date Active benazepril 10 mg tablet RxNorm: 057188 1 Tablet(s) PO daily No Start Date 07/14/2014 Inactive lisinopril 10 mg tablet RxNorm: 783771 1 Tablet(s) PO daily No Start Date 04/24/2016 Inactive clonazepam 0.5 mg tablet RxNorm: 984450 1 Tablet(s) PO daily No Start Date 08/03/2014 Inactive diltiazem 90 mg tablet RxNorm: 901091 1 Tablet(s) PO daily No Start Date 07/23/2014 Inactive atenolol 25 mg tablet RxNorm: 713497 1 Tablet(s) PO daily No Start Date 08/03/2014 Inactive buspirone 10 mg tablet RxNorm: 002438 1 Tablet(s) PO QID No Start Date 08/03/2014 Inactive omeprazole 20 mg capsule,delayed release RxNorm: 159253 1 Capsule(s) PO BID No Start Date 08/03/2014 Inactive allopurinol 300 mg tablet RxNorm: 439224 1 Tablet(s) PO daily No Start Date 08/03/2014 Inactive Xarelto 20 mg tablet RxNorm: 3976420 1 Tablet(s) PO daily No Start Date 03/03/2015 Inactive warfarin 2 mg tablet RxNorm: 635187 1 Tablet(s) PO daily No Start Date 07/16/2014 Inactive cyanocobalamin (vit B-12) 1,000 mcg/mL injection solution RxNorm: 580264 1 Milliliter(s) Inj monthly No Start Date Inactive cyclobenzaprine 10 mg tablet RxNorm: 723415 1 Tablet(s) PO BID No Start Date 07/23/2014 Inactive Eliquis 2.5 mg tablet RxNorm: 3111035 1 Tablet(s) PO daily No Start Date 03/03/2015 Inactive Medication Administered Medication Codes Instructions Start Date Status Kenalog 40 mg/mL suspension for injection RxNorm: 0806769 1Milliliter 01/30/2015 No longer Active ceftriaxone 500 mg solution for injection RxNorm: 1580094 10/14/2014 No longer Active Kenalog 40 mg/mL suspension for injection RxNorm: 8609806 Milliliter 10/14/2014 No longer Active Immunizations Vaccine Codes Date Status Influenza CVX: 141 12/10/2015 completed Assessments Condition Codes Effective Dates Localized edema ICD-10: R60.0 ICD-9: 782.3 03/07/2017 Essential (primary) hypertension ICD-10: I10 ICD-9: 401.9 03/07/2017 Paroxysmal atrial fibrillation ICD-10: I48.0 ICD-9: 427.31 03/07/2017 Generalized anxiety disorder ICD-10: F41.1 ICD-9: 300.02 03/07/2017 Major depressive disorder, single episode, unspecified ICD- 10: F32.9 ICD-9: 311 01/24/2017 Other chest pain ICD-10: R07.89 ICD-9: 786.59 09/29/2016 Other malaise ICD-10: R53.81 ICD-9: 780.79 09/29/2016 Low back pain ICD-10: M54.5 ICD-9: 724.2 09/13/2016 Acute recurrent maxillary sinusitis ICD-10: J01.01 ICD-9: 461.0 01/14/2016 Encounter for immunization ICD-10: Z23 ICD-9: V04.81 12/10/2015 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 ICD-9: 280.0 06/23/2015 Encounter for therapeutic drug level monitoring ICD-10: Z51.81 ICD-9: V58.83 06/02/2015 Anemia, unspecified ICD-10: D64.9 ICD-9: 285.9 03/31/2015 Vitamin D deficiency, unspecified ICD-10: E55.9 ICD-9: 268.9 03/31/2015 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: 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.01 ICD-9: V58.61 03/31/2015 Allergic rhinitis due to pollen ICD-10: J30.1 ICD-9: 477.0 01/30/2015 Diarrhea, unspecified ICD-10: R19.7 ICD-9: 787.91 12/22/2014 DYSURIA ICD-9: 788.1 11/07/2014 MUSCLE WEAKNESS-GENERAL ICD-9: 728.87 03/2014 Low back pain ICD-9: 724.2 10/29/2014 Cough ICD-9: 786.2 10/29/2014 Anticoagulated on Coumadin ICD-9: V58.83 10/29/2014 DYSPHAGIA, PHARYNGEAL ICD-9: 787.23 10/29 EDEMA ICD-9: 782.3 10/29/2014 Pneumonia ICD-9: 486 10/14/2014 DYSPHAGIA, NOS ICD-9: 787.20 10/14/2014 ESOPHAGEAL REFLUX ICD-9: 530.81 2014 SLEEP RELATED LEG CRAMPS ICD-9: 327.52 ESSENTIAL HYPERTENSION ICD-9: 401.9 09/19 VITAMIN D DEFICIENCY ICD-9: 268.9 2014 Atrial fibrillation ICD-9: 427.31 2014 LONG-TERM USE ANTICOAGUL ICD-9: V58.61 DEPRESSIVE DISORDER NEC ICD-9: 311 2014 Skin irritation ICD-9: 709.9 08/04/2014 Reason For Visit Reason For Visit Effective Dates Notes hypertension 03/07/2017 hypertension 01/24/2017 chest pain/pressure 09/29/2016 edema 09/13/2016 edema 05/31/2016 edema 05/10/2016 edema 04/25/2016 edema 01/14/2016 edema 12/10/2015 edema 11/12/2015 edema 10/08/2015 edema 09/29/2015 edema 09/22/2015 edema 07/21/2015 edema 06/23/2015 edema 06/12/2015 edema 06/02/2015 depression 03/31/2015 sinus congestion 01/30/2015 diarrhea 12/22/2014 back pain 10/29/2014 back pain 10/14/2014 edema 09/19/2014 edema 08/22/2014 rash 08/04/2014 --Improved rash 07/24/2014 depression 07/15/2014 Results Observation Observation Code Item Item Code Result Date Comp Metabolic Zua008 NA 138 mEq/L 09/29/2015 Comp Metabolic Zpt258 K 4.6 mEq/L 09/29/2015 Comp Metabolic Dyu686 CL 102 mEq/L 09/29/2015 Comp Metabolic Grm555 CO2 28.0 mEq/L 09/29/2015 Comp Metabolic Sse160 ANION GAP 13 09/29/2015 Comp Metabolic Udg451 GLUCOSE 83 mg/dL 09/29/2015 Comp Metabolic Tzp207 Creat 1.1 mg/dL 09/29/2015 Comp Metabolic Bod436 eGFR 52 ml/min/1.73m2 09/29/2015 Comp Metabolic Uth549 BUN 18 mg/dL 09/29/2015 Comp Metabolic Jne342 B/C Ratio 16.7 Ratio 09/29/2015 Comp Metabolic Qlc618 CALCIUM 9.6 mg/dL 09/29/2015 Comp Metabolic Dee415 ALK PHOS 188 U/L 09/29/2015 Comp Metabolic Tak284 AST(SGOT) 19 U/L 09/29/2015 Comp Metabolic Mnk215 ALT(SGPT) 12 U/L 09/29/2015 Comp Metabolic Yee592 BILI T 0.6 mg/dL 09/29/2015 Comp Metabolic Bko072 ALBUMIN 4.0 g/dL 09/29/2015 Comp Metabolic Oph845 TPRO 6.6 g/dL 09/29/2015 Comp Metabolic Vnf345 GLOB 2.6 g/dL 09/29/2015 Comp Metabolic Msd157 A/G Ratio 1.5 Ratio 09/29/2015 Comp Metabolic Jsl918 Osmo 277 mOsmo 09/29/2015 Cbc With Differential Ord2 WBC 9.90 K/ul 09/29/2015 Cbc With Differential Ord2 RBC 3.64 M/ul 09/29/2015 Cbc With Differential Ord2 HGB 9.5 g/dl 09/29/2015 Cbc With Differential Ord2 HCT 30.6 % 09/29/2015 Cbc With Differential Ord2 Neut% 65.2 % 09/29/2015 Cbc With Differential Ord2 Lymph% 14.2 % 09/29/2015 Cbc With Differential Ord2 MCV 84.1 fl 09/29/2015 Cbc With Differential Ord2 MCH 26.1 pg 09/29/2015 Cbc With Differential Ord2 Cooper% 18.3 % 09/29/2015 Cbc With Differential Ord2 Eos% 1.7 % 09/29/2015 Cbc With Differential Ord2 MCHC 31.0 pg 09/29/2015 Cbc With Differential Ord2 Baso% 0.6 % 09/29/2015 Cbc With Differential Ord2 PLT 380 K/ul 09/29/2015 Cbc With Differential Ord2 Neut ABS# 6.45 K/ul 09/29/2015 Cbc With Differential Ord2 RDW 18.1 % 09/29/2015 Cbc With Differential Ord2 Lymph ABS# 1.41 K/ul 09/29/2015 Cbc With Differential Ord2 Cooper ABS# 1.8 K/ul 09/29/2015 Cbc With Differential Ord2 Eos ABS# 0.2 K/ul 09/29/2015 Cbc With Differential Ord2 Baso ABS# 0.1 K/ul 09/29/2015 Comp Metabolic Bjl221 NA 134 mEq/L 09/22/2015 Comp Metabolic Nnt269 K 4.7 mEq/L 09/22/2015 Comp Metabolic Vxa186 CL 98 mEq/L 09/22/2015 Comp Metabolic Mxw367 CO2 26.0 mEq/L 09/22/2015 Comp Metabolic Ylf303 ANION GAP 15 09/22/2015 Comp Metabolic Pkj257 GLUCOSE 83 mg/dL 09/22/2015 Comp Metabolic Mtj400 Creat 1.1 mg/dL 09/22/2015 Comp Metabolic Rli947 eGFR 52 ml/min/1.73m2 09/22/2015 Comp Metabolic Spx850 BUN 19 mg/dL 09/22/2015 Comp Metabolic Whz066 B/C Ratio 17.8 Ratio 09/22/2015 Comp Metabolic Hiu411 CALCIUM 9.4 mg/dL 09/22/2015 Comp Metabolic Prc516 ALK PHOS 182 U/L 09/22/2015 Comp Metabolic Iwa806 AST(SGOT) 30 U/L 09/22/2015 Comp Metabolic Jbk850 ALT(SGPT) 16 U/L 09/22/2015 Comp Metabolic Ebk243 BILI T 0.8 mg/dL 09/22/2015 Comp Metabolic Xjb774 ALBUMIN 3.9 g/dL 09/22/2015 Comp Metabolic Hga415 TPRO 6.8 g/dL 09/22/2015 Comp Metabolic Chr015 GLOB 2.9 g/dL 09/22/2015 Comp Metabolic Eiq495 A/G Ratio 1.3 Ratio 09/22/2015 Comp Metabolic Fjr306 Osmo 270 mOsmo 09/22/2015 Cbc With Differential Ord2 WBC 10.76 K/ul 09/22/2015 Cbc With Differential Ord2 RBC 3.69 M/ul 09/22/2015 Cbc With Differential Ord2 HGB 9.5 g/dl 09/22/2015 Cbc With Differential Ord2 HCT 30.7 % 09/22/2015 Cbc With Differential Ord2 Neut% 66.6 % 09/22/2015 Cbc With Differential Ord2 MCV 83.2 fl 09/22/2015 Cbc With Differential Ord2 Lymph% 16.8 % 09/22/2015 Cbc With Differential Ord2 MCH 25.7 pg 09/22/2015 Cbc With Differential Ord2 Cooper% 15.4 % 09/22/2015 Cbc With Differential Ord2 MCHC 30.9 pg 09/22/2015 Cbc With Differential Ord2 Eos% 0.7 % 09/22/2015 Cbc With Differential Ord2 Baso% 0.5 % 09/22/2015 Cbc With Differential Ord2 PLT 345 K/ul 09/22/2015 Cbc With Differential Ord2 RDW 18.5 % 09/22/2015 Cbc With Differential Ord2 Neut ABS# 7.16 K/ul 09/22/2015 Cbc With Differential Ord2 Lymph ABS# 1.81 K/ul 09/22/2015 Cbc With Differential Ord2 Cooper ABS# 1.7 K/ul 09/22/2015 Cbc With Differential Ord2 Eos ABS# 0.1 K/ul 09/22/2015 Cbc With Differential Ord2 Baso ABS# 0.1 K/ul 09/22/2015 Cbc With Differential Ord2 WBC 10.52 K/ul 06/02/2015 Cbc With Differential Ord2 RBC 3.16 M/ul 06/02/2015 Cbc With Differential Ord2 HGB 8.8 g/dl 06/02/2015 Cbc With Differential Ord2 Neut% 66.1 % 06/02/2015 Cbc With Differential Ord2 HCT 27.8 % 06/02/2015 Cbc With Differential Ord2 MCV 88.0 fl 06/02/2015 Cbc With Differential Ord2 Lymph% 16.5 % 06/02/2015 Cbc With Differential Ord2 Cooper% 16.6 % 06/02/2015 Cbc With Differential Ord2 MCH 27.8 pg 06/02/2015 Cbc With Differential Ord2 Eos% 0.5 % 06/02/2015 Cbc With Differential Ord2 MCHC 31.7 pg 06/02/2015 Cbc With Differential Ord2 PLT 457 K/ul 06/02/2015 Cbc With Differential Ord2 Baso% 0.3 % 06/02/2015 Cbc With Differential Ord2 RDW 16.6 % 06/02/2015 Cbc With Differential Ord2 Neut ABS# 6.95 K/ul 06/02/2015 Cbc With Differential Ord2 Lymph ABS# 1.74 K/ul 06/02/2015 Cbc With Differential Ord2 Cooper ABS# 1.8 K/ul 06/02/2015 Cbc With Differential Ord2 Eos ABS# 0.1 K/ul 06/02/2015 Cbc With Differential Ord2 Baso ABS# 0.0 K/ul 06/02/2015 Cbc With Differential Ord2 New Analyzer Notice Please note new ref ranges starting 03-11-2015 due to implemntation of new five part differential hematolgy analyzer. 06/02/2015 Pt [id number] PT 21.8 seconds 06/02/2015 Pt Fix9087 INR 2.0 06/02/2015 Pt Qxf5066 Low Intensity - 1.5-2.0 06/02/2015 Pt Uge2705 Mod intensity - 2.0-3.0 06/02/2015 Pt Ikh1087 Hi intensity - 3.0-4.0 06/02/2015 Comp Metabolic Qww017 NA 132 mEq/L 06/02/2015 Comp Metabolic Pya411 K 4.4 mEq/L 06/02/2015 Comp Metabolic Svn554 CL 94 mEq/L 06/02/2015 Comp Metabolic Wrr884 CO2 26.0 mEq/L 06/02/2015 Comp Metabolic Ybm692 ANION GAP 16 06/02/2015 Comp Metabolic Ktj166 GLUCOSE 97 mg/dL 06/02/2015 Comp Metabolic Yhf499 Creat 1.2 mg/dL 06/02/2015 Comp Metabolic Vsa448 eGFR 46 ml/min/1.73m2 06/02/2015 Comp Metabolic Gbu460 BUN 19 mg/dL 06/02/2015 Comp Metabolic Sfs525 B/C Ratio 15.8 Ratio 06/02/2015 Comp Metabolic Zgq293 CALCIUM 9.4 mg/dL 06/02/2015 Comp Metabolic Csc959 ALK PHOS 178 U/L 06/02/2015 Comp Metabolic Ogy722 AST(SGOT) 32 U/L 06/02/2015 Comp Metabolic Uya413 ALT(SGPT) 31 U/L 06/02/2015 Comp Metabolic Acd027 BILI T 0.6 mg/dL 06/02/2015 Comp Metabolic Ewj146 ALBUMIN 4.0 g/dL 06/02/2015 Comp Metabolic Rdq966 TPRO 6.5 g/dL 06/02/2015 Comp Metabolic Fqg463 GLOB 2.5 g/dL 06/02/2015 Comp Metabolic Kan787 A/G Ratio 1.6 Ratio 06/02/2015 Comp Metabolic Bky943 Osmo 267 mOsmo 06/02/2015 Vitamin D 25 Oh Kiu1983 VITAMIN D, 25 HYDROXY 61.20 ng/mL B12 Ntu626 B12 160.00 pg/ml 04/01/2015 Iron Ord72 Iron 39 ug/dl 04/01/2015 Tsh Ord6 hTSH II 1.87 uIU/mL 03/31/2015 Pt Vne0555 PT 36.9 seconds 03/31/2015 Pt Oye2104 INR 3.9 03/31/2015 Pt Sxh7702 Low Intensity - 1.5-2.0 03/31/2015 Pt Iup0682 Mod intensity - 2.0-3.0 03/31/2015 Pt Gbz9154 Hi intensity - 3.0-4.0 03/31/2015 Comp Metabolic Dje625 NA 131 mEq/L 03/31/2015 Comp Metabolic Rhj024 K 5.3 mEq/L 03/31/2015 Comp Metabolic Vpj172 CL 97 mEq/L 03/31/2015 Comp Metabolic Tve821 CO2 24.0 mEq/L 03/31/2015 Comp Metabolic Ytc475 ANION GAP 15 03/31/2015 Comp Metabolic Qif540 GLUCOSE 84 mg/dL 03/31/2015 Comp Metabolic Rrs524 Creat 1.3 mg/dL 03/31/2015 Comp Metabolic Oid570 eGFR 42 ml/min/1.73m2 03/31/2015 Comp Metabolic Vnp816 BUN 26 mg/dL 03/31/2015 Comp Metabolic Dss295 B/C Ratio 20.2 Ratio 03/31/2015 Comp Metabolic Mag586 CALCIUM 9.4 mg/dL 03/31/2015 Comp Metabolic Kro694 ALK PHOS 172 U/L 03/31/2015 Comp Metabolic Lat467 AST(SGOT) 21 U/L 03/31/2015 Comp Metabolic Pek755 ALT(SGPT) 27 U/L 03/31/2015 Comp Metabolic Blz584 BILI T 0.5 mg/dL 03/31/2015 Comp Metabolic Erv840 ALBUMIN 4.0 g/dL 03/31/2015 Comp Metabolic Izz147 TPRO 6.8 g/dL 03/31/2015 Comp Metabolic Qll034 GLOB 2.8 g/dL 03/31/2015 Comp Metabolic Zxl184 A/G Ratio 1.4 Ratio 03/31/2015 Comp Metabolic Qjt907 Osmo 267 mOsmo 03/31/2015 Cbc With Differential Ord2 WBC 11.58 K/ul 03/31/2015 Cbc With Differential Ord2 RBC 3.71 M/ul 03/31/2015 Cbc With Differential Ord2 HGB 10.5 g/dl 03/31/2015 Cbc With Differential Ord2 HCT 33.0 % 03/31/2015 Cbc With Differential Ord2 Neut% 71.2 % 03/31/2015 Cbc With Differential Ord2 MCV 88.9 fl 03/31/2015 Cbc With Differential Ord2 Lymph% 14.0 % 03/31/2015 Cbc With Differential Ord2 MCH 28.3 pg 03/31/2015 Cbc With Differential Ord2 Cooper% 14.0 % 03/31/2015 Cbc With Differential Ord2 Eos% 0.5 % 03/31/2015 Cbc With Differential Ord2 MCHC 31.8 pg 03/31/2015 Cbc With Differential Ord2 Baso% 0.3 % 03/31/2015 Cbc With Differential Ord2 PLT 414 K/ul 03/31/2015 Cbc With Differential Ord2 RDW 17.4 % 03/31/2015 Cbc With Differential Ord2 Neut ABS# 8.25 K/ul 03/31/2015 Cbc With Differential Ord2 Lymph ABS# 1.62 K/ul 03/31/2015 Cbc With Differential Ord2 Cooper ABS# 1.6 K/ul 03/31/2015 Cbc With Differential Ord2 Eos ABS# 0.1 K/ul 03/31/2015 Cbc With Differential Ord2 Baso ABS# 0.0 K/ul 03/31/2015 Cbc With Differential Ord2 New Analyzer Notice Please note new ref ranges starting 03-11-2015 due to implemntation of new five part differential hematolgy analyzer. 03/31/2015 Urine Culture Ucult Preliminary No Growth Day 1 11/10/2014 Urine Culture Ucult Complete No Growth Day 2 11/10/2014 Magnesium Ord90 Mag 2.0 mg/dL 09/19/2014 Pt Lsj1361 PT 29.1 seconds 09/19/2014 Pt Dup0010 INR 2.9 09/19/2014 Pt Zkn5084 Low Intensity - 1.5-2.0 09/19/2014 Pt Xmx0960 Mod intensity - 2.0-3.0 09/19/2014 Pt Gfs8916 Hi intensity - 3.0-4.0 09/19/2014 Tsh Ord6 hTSH II 1.40 uIU/mL 09/19/2014 Lipid Ord30 CHOL 216 mg/dL 09/19/2014 Lipid Ord30 HDL 78.0 mg/dl 09/19/2014 Lipid Ord30 TRIG 85 mg/dL 09/19/2014 Lipid Ord30 LDL 121 mg/dL 09/19/2014 Lipid Ord30 C/HDL 2.8 Ratio 09/19/2014 Vitamin D 25 Oh Zrg1556 VITAMIN D, 25 HYDROXY 14.13 ng/mL Comp Metabolic Nzo439 NA 134 mEq/L 09/19/2014 Comp Metabolic Thr221 K 4.7 mEq/L 09/19/2014 Comp Metabolic Rsi108 CL 98 mEq/L 09/19/2014 Comp Metabolic Hkr074 CO2 27.0 mEq/L 09/19/2014 Comp Metabolic Pga795 ANION GAP 14 09/19/2014 Comp Metabolic Ofe527 GLUCOSE 94 mg/dL 09/19/2014 Comp Metabolic Bhe526 Creat 1.1 mg/dL 09/19/2014 Comp Metabolic Ulx967 eGFR 49 ml/min/1.73m2 09/19/2014 Comp Metabolic Xre673 BUN 14 mg/dL 09/19/2014 Comp Metabolic Duy159 B/C Ratio 12.3 Ratio 09/19/2014 Comp Metabolic Eam322 CALCIUM 9.7 mg/dL 09/19/2014 Comp Metabolic Mmu959 ALK PHOS 150 U/L 09/19/2014 Comp Metabolic Lkd596 AST(SGOT) 16 U/L 09/19/2014 Comp Metabolic Mzb971 ALT(SGPT) 9 U/L 09/19/2014 Comp Metabolic Toa832 BILI T 0.8 mg/dL 09/19/2014 Comp Metabolic Phf987 ALBUMIN 3.9 g/dL 09/19/2014 Comp Metabolic Gfj545 TPRO 6.8 g/dL 09/19/2014 Comp Metabolic Wrb865 GLOB 2.9 g/dL 09/19/2014 Comp Metabolic Pwj543 A/G Ratio 1.3 Ratio 09/19/2014 Comp Metabolic Dni103 Osmo 268 mOsmo 09/19/2014 Cbc With Differential Ord2 WBC 10.0 K/uL 09/19/2014 Cbc With Differential Ord2 LYM 2.4 K/uL 09/19/2014 Cbc With Differential Ord2 LYM% 24.0 % 09/19/2014 Cbc With Differential Ord2 NEUT/GRAN 6.7 K/uL 09/19/2014 Cbc With Differential Ord2 NEUT/GRAN % 67.1 % 09/19/2014 Cbc With Differential Ord2 MID 0.9 K/uL 09/19/2014 Cbc With Differential Ord2 MID% 8.9 % 09/19/2014 Cbc With Differential Ord2 RBC 4.51 M/uL 09/19/2014 Cbc With Differential Ord2 HGB 12.6 g/dL 09/19/2014 Cbc With Differential Ord2 HCT 39.1 % 09/19/2014 Cbc With Differential Ord2 MCV 87 fL 09/19/2014 Cbc With Differential Ord2 MCH 28 pg 09/19/2014 Cbc With Differential Ord2 MCHC 32 g/dL 09/19/2014 Cbc With Differential Ord2 PLT 323 K/uL 09/19/2014 Cbc With Differential Ord2 RDW 17.6 % 09/19/2014 Review of Systems System Result Effective Dates Constitutional No recent illness 2017 Constitutional No anorexia 03/07/2017 Constitutional No night sweats 2017 Constitutional No chills 03/07/2017 Constitutional No diaphoresis 03/07/2017 Constitutional fatigue 03/07/2017 Constitutional No fever 03/07/2017 Constitutional No insomnia 03/07/2017 Constitutional No malaise 03/07/2017 Eyes No eye discharge 03/07/2017 Eyes No eye erythema 03/07/2017 Ears/Nose/Throat/Neck dizziness 2017 Ears/Nose/Throat/Neck No headache 2017 Cardiovascular No chest pain/pressure 10/2017 Cardiovascular dyspnea 03/07/2017 Cardiovascular edema 03/07/2017 Respiratory No cough 03/07/2017 Gastrointestinal No abdominal pain 2017 Gastrointestinal No constipation 2017 Gastrointestinal No diarrhea 03/07/2017 Genitourinary/Nephrology No dysuria 03/07 Musculoskeletal back pain 03/07/2017 Musculoskeletal joint complaint 2017 Dermatologic No rash 03/07/2017 Neurologic No alteration of consciousness 03/07/2017 Psychiatric anxiety 03/07/2017 Psychiatric No depression 03/07/2017 Endocrine No cold sensitivity 03/07/2017 Cardiovascular hypertension 03/07/2017 Constitutional No recent illness 2016 Constitutional No anorexia 01/24/2017 Constitutional No night sweats 2016 Constitutional No chills 01/24/2017 Constitutional No diaphoresis 01/24/2017 Constitutional fatigue 01/24/2017 Constitutional No fever 01/24/2017 Constitutional No insomnia 01/24/2017 Constitutional No malaise 01/24/2017 Eyes No eye discharge 01/24/2017 Eyes No eye erythema 01/24/2017 Ears/Nose/Throat/Neck dizziness 2016 Ears/Nose/Throat/Neck No headache 2016 Cardiovascular No chest pain/pressure Cardiovascular dyspnea 01/24/2017 Cardiovascular edema 01/24/2017 Respiratory No cough 01/24/2017 Gastrointestinal No abdominal pain 2016 Gastrointestinal No constipation 2016 Gastrointestinal No diarrhea 01/24/2017 Genitourinary/Nephrology No dysuria 01/24 Musculoskeletal back pain 01/24/2017 Musculoskeletal joint complaint 2016 Dermatologic No rash 01/24/2017 Neurologic No alteration of consciousness 01/24/2017 Psychiatric anxiety 01/24/2017 Psychiatric No depression 01/24/2017 Endocrine No cold sensitivity 01/24/2017 Constitutional recent illness 09/29/2016 Constitutional chills 09/29/2016 Constitutional fatigue 09/29/2016 Eyes No eye discharge 09/29/2016 Eyes No eye erythema 09/29/2016 Ears/Nose/Throat/Neck No headache 2016 Cardiovascular chest pain/pressure 2016 Respiratory No cough 09/29/2016 Gastrointestinal No abdominal pain 2016 Gastrointestinal No constipation 2016 Gastrointestinal diarrhea 09/29/2016 Musculoskeletal back pain 09/29/2016 Musculoskeletal joint complaint 2016 Dermatologic No rash 09/29/2016 Neurologic No alteration of consciousness 09/29/2016 Constitutional No fever 09/29/2016 Constitutional malaise 09/29/2016 Ears/Nose/Throat/Neck dizziness 2016 Ears/Nose/Throat/Neck nasal allergies 04/2016 Ears/Nose/Throat/Neck nasal discharge 04/2016 Cardiovascular fatigue 09/29/2016 Respiratory dyspnea on exertion 2016 Neurologic No mental status change 2016 Constitutional No recent illness 2016 Constitutional No anorexia 09/13/2016 Constitutional No night sweats 2016 Constitutional No chills 09/13/2016 Constitutional No diaphoresis 09/13/2016 Constitutional fatigue 09/13/2016 Constitutional No fever 09/13/2016 Constitutional No insomnia 09/13/2016 Constitutional No malaise 09/13/2016 Eyes No eye discharge 09/13/2016 Eyes No eye erythema 09/13/2016 Ears/Nose/Throat/Neck dizziness 2016 Ears/Nose/Throat/Neck No headache 2016 Cardiovascular No chest pain/pressure Cardiovascular dyspnea 09/13/2016 Cardiovascular edema 09/13/2016 Respiratory No cough 09/13/2016 Gastrointestinal No abdominal pain 2016 Gastrointestinal No constipation 2016 Gastrointestinal No diarrhea 09/13/2016 Genitourinary/Nephrology No dysuria 09/13 Musculoskeletal joint complaint 2016 Dermatologic No rash 09/13/2016 Neurologic No alteration of consciousness 09/13/2016 Psychiatric anxiety 09/13/2016 Psychiatric No depression 09/13/2016 Endocrine No cold sensitivity 09/13/2016 Musculoskeletal back pain 09/13/2016 Constitutional No recent illness 2016 Constitutional No anorexia 05/31/2016 Constitutional No night sweats 2016 Constitutional No chills 05/31/2016 Constitutional No diaphoresis 05/31/2016 Constitutional fatigue 05/31/2016 Constitutional No fever 05/31/2016 Constitutional No insomnia 05/31/2016 Constitutional No malaise 05/31/2016 Eyes No eye discharge 05/31/2016 Eyes No eye erythema 05/31/2016 Ears/Nose/Throat/Neck dizziness 2016 Ears/Nose/Throat/Neck No headache 2016 Cardiovascular No chest pain/pressure 05/2016 Cardiovascular dyspnea 05/31/2016 Cardiovascular edema 05/31/2016 Respiratory No cough 05/31/2016 Gastrointestinal No abdominal pain 2016 Gastrointestinal No constipation 2016 Gastrointestinal No diarrhea 05/31/2016 Genitourinary/Nephrology No dysuria 05/31 Musculoskeletal joint complaint 2016 Dermatologic No rash 05/31/2016 Neurologic No alteration of consciousness 05/31/2016 Psychiatric anxiety 05/31/2016 Psychiatric No depression 05/31/2016 Endocrine No cold sensitivity 05/31/2016 Constitutional No recent illness 2016 Constitutional No anorexia 05/10/2016 Constitutional No night sweats 2016 Constitutional No chills 05/10/2016 Constitutional No diaphoresis 05/10/2016 Constitutional fatigue 05/10/2016 Constitutional No fever 05/10/2016 Constitutional No insomnia 05/10/2016 Constitutional No malaise 05/10/2016 Constitutional No weight loss 05/10/2016 Constitutional weight gain 05/10/2016 Eyes No eye erythema 05/10/2016 Eyes No eye discharge 05/10/2016 Ears/Nose/Throat/Neck dizziness 2016 Ears/Nose/Throat/Neck No headache 2016 Cardiovascular No chest pain/pressure Cardiovascular edema 05/10/2016 Cardiovascular dyspnea 05/10/2016 Respiratory No cough 05/10/2016 Gastrointestinal No abdominal pain 2016 Gastrointestinal No constipation 2016 Gastrointestinal No diarrhea 05/10/2016 Genitourinary/Nephrology No dysuria 05/10 Musculoskeletal joint complaint 2016 Dermatologic No rash 05/10/2016 Neurologic No alteration of consciousness 05/10/2016 Psychiatric No depression 05/10/2016 Psychiatric anxiety 05/10/2016 Endocrine No cold sensitivity 05/10/2016 Constitutional recent illness 04/25/2016 Constitutional No anorexia 04/25/2016 Constitutional No night sweats 2016 Constitutional No chills 04/25/2016 Constitutional No diaphoresis 04/25/2016 Constitutional fatigue 04/25/2016 Constitutional No fever 04/25/2016 Constitutional No insomnia 04/25/2016 Constitutional No malaise 04/25/2016 Constitutional No weight loss 04/25/2016 Constitutional No weight gain 04/25/2016 Eyes No eye discharge 04/25/2016 Eyes No eye erythema 04/25/2016 Ears/Nose/Throat/Neck dizziness 2016 Cardiovascular chest pain/pressure 2016 Cardiovascular dyspnea 04/25/2016 Cardiovascular edema 04/25/2016 Respiratory No cough 04/25/2016 Gastrointestinal No abdominal pain 2016 Genitourinary/Nephrology No dysuria 04/25 Musculoskeletal joint complaint 2016 Dermatologic No rash 04/25/2016 Neurologic No alteration of consciousness 04/25/2016 Constitutional recent illness 01/14/2016 Constitutional No anorexia 01/14/2016 Constitutional No night sweats 2015 Constitutional No chills 01/14/2016 Constitutional No diaphoresis 01/14/2016 Constitutional No fatigue 01/14/2016 Constitutional fever 01/14/2016 Constitutional insomnia 01/14/2016 Constitutional No malaise 01/14/2016 Constitutional No weight loss 01/14/2016 Constitutional No weight gain 01/14/2016 Constitutional No obesity 01/14/2016 Eyes eye pain 01/14/2016 Eyes eye discharge 01/14/2016 Eyes vision change 01/14/2016 Ears/Nose/Throat/Neck No dizziness 2015 Ears/Nose/Throat/Neck No headache 2015 Ears/Nose/Throat/Neck No nasal discharge 01/14/2016 Ears/Nose/Throat/Neck No nasal allergies 01/14/2016 Ears/Nose/Throat/Neck otalgia 01/14/2016 Ears/Nose/Throat/Neck No sore throat Cardiovascular No chest pain/pressure Cardiovascular dyspnea 01/14/2016 Cardiovascular exercise intolerance 01/13 Cardiovascular fatigue 01/14/2016 Respiratory No chest tightness 2015 Respiratory No chest congestion 2015 Respiratory No cigarette smoking 2015 Respiratory cough 01/14/2016 Respiratory dyspnea 01/14/2016 Respiratory dyspnea on exertion 2015 Gastrointestinal No constipation 2015 Gastrointestinal No diarrhea 01/14/2016 Gastrointestinal No nausea 01/14/2016 Gastrointestinal No vomiting 01/14/2016 Genitourinary/Nephrology No anuria/oliguria 01/14/2016 Genitourinary/Nephrology No dysuria 01/13 Musculoskeletal No stiffness 01/14/2016 Musculoskeletal No swelling 01/14/2016 Musculoskeletal No arthralgia(s) 2015 Dermatologic No rash 01/14/2016 Dermatologic No sores 01/14/2016 Neurologic No alteration of consciousness 01/14/2016 Psychiatric No depression 01/14/2016 Hematologic/Lymphatic No abnormal ecchymoses 01/14/2016 Hematologic/Lymphatic No abnormal bleeding and bruising 01/14/2016 Psychiatric anxiety 01/14/2016 Constitutional No recent illness 2015 Constitutional No anorexia 12/10/2015 Constitutional No night sweats 2015 Constitutional No chills 12/10/2015 Constitutional No diaphoresis 12/10/2015 Constitutional No fatigue 12/10/2015 Constitutional No fever 12/10/2015 Constitutional No insomnia 12/10/2015 Constitutional No malaise 12/10/2015 Constitutional No weight loss 12/10/2015 Constitutional No weight gain 12/10/2015 Eyes No eye discharge 12/10/2015 Eyes No eye erythema 12/10/2015 Ears/Nose/Throat/Neck No dizziness 2015 Ears/Nose/Throat/Neck No headache 2015 Cardiovascular No chest pain/pressure Respiratory No cough 12/10/2015 Respiratory dyspnea on exertion 2015 Gastrointestinal No abdominal pain 2015 Genitourinary/Nephrology No dysuria 12/09 Musculoskeletal No joint complaint 2015 Dermatologic No rash 12/10/2015 Neurologic No alteration of consciousness 12/10/2015 Psychiatric anxiety 12/10/2015 Cardiovascular No dyspnea 12/10/2015 Cardiovascular edema 12/10/2015 Constitutional No recent illness 2015 Constitutional No anorexia 11/12/2015 Constitutional No night sweats 2015 Constitutional No chills 11/12/2015 Constitutional No diaphoresis 11/12/2015 Constitutional No fatigue 11/12/2015 Constitutional No fever 11/12/2015 Constitutional No insomnia 11/12/2015 Constitutional No malaise 11/12/2015 Constitutional No weight loss 11/12/2015 Constitutional No weight gain 11/12/2015 Eyes No eye discharge 11/12/2015 Eyes No eye erythema 11/12/2015 Ears/Nose/Throat/Neck No dizziness 2015 Ears/Nose/Throat/Neck No headache 2015 Cardiovascular No chest pain/pressure Cardiovascular No dyspnea 11/12/2015 Cardiovascular edema 11/12/2015 Respiratory No cough 11/12/2015 Respiratory dyspnea on exertion 2015 Gastrointestinal No abdominal pain 2015 Genitourinary/Nephrology No dysuria 11/11 Musculoskeletal No joint complaint 2015 Dermatologic No rash 11/12/2015 Neurologic No alteration of consciousness 11/12/2015 Psychiatric anxiety 11/12/2015 Constitutional No recent illness 2015 Constitutional No anorexia 10/08/2015 Constitutional No night sweats 2015 Constitutional No chills 10/08/2015 Constitutional No diaphoresis 10/08/2015 Constitutional No fatigue 10/08/2015 Constitutional No fever 10/08/2015 Constitutional No insomnia 10/08/2015 Constitutional No malaise 10/08/2015 Constitutional No weight loss 10/08/2015 Constitutional No weight gain 10/08/2015 Eyes No eye discharge 10/08/2015 Eyes No eye erythema 10/08/2015 Ears/Nose/Throat/Neck No dizziness 2015 Ears/Nose/Throat/Neck No headache 2015 Cardiovascular No chest pain/pressure 12/2015 Cardiovascular No dyspnea 10/08/2015 Cardiovascular edema 10/08/2015 Respiratory No cough 10/08/2015 Respiratory dyspnea on exertion 2015 Gastrointestinal No abdominal pain 2015 Genitourinary/Nephrology No dysuria 10/07 Musculoskeletal No joint complaint 2015 Dermatologic No rash 10/08/2015 Neurologic No alteration of consciousness 10/08/2015 Psychiatric anxiety 10/08/2015 Constitutional No recent illness 2015 Constitutional No anorexia 09/29/2015 Constitutional No night sweats 2015 Constitutional No chills 09/29/2015 Constitutional No diaphoresis 09/29/2015 Constitutional No fatigue 09/29/2015 Constitutional No fever 09/29/2015 Constitutional No insomnia 09/29/2015 Constitutional No malaise 09/29/2015 Constitutional No weight loss 09/29/2015 Constitutional No weight gain 09/29/2015 Eyes No eye erythema 09/29/2015 Eyes No eye discharge 09/29/2015 Ears/Nose/Throat/Neck No dizziness 2015 Ears/Nose/Throat/Neck No headache 2015 Cardiovascular No chest pain/pressure 03/2015 Cardiovascular No dyspnea 09/29/2015 Cardiovascular edema 09/29/2015 Respiratory No cough 09/29/2015 Respiratory dyspnea on exertion 2015 Gastrointestinal No abdominal pain 2015 Genitourinary/Nephrology No dysuria 09/28 Musculoskeletal No joint complaint 2015 Dermatologic No rash 09/29/2015 Neurologic No alteration of consciousness 09/29/2015 Psychiatric anxiety 09/29/2015 Constitutional recent illness 09/22/2015 Constitutional No anorexia 09/22/2015 Constitutional No night sweats 2015 Constitutional No chills 09/22/2015 Constitutional No diaphoresis 09/22/2015 Constitutional fatigue 09/22/2015 Constitutional No fever 09/22/2015 Constitutional No insomnia 09/22/2015 Constitutional No malaise 09/22/2015 Constitutional No weight gain 09/22/2015 Constitutional No weight loss 09/22/2015 Eyes No eye discharge 09/22/2015 Eyes No eye erythema 09/22/2015 Ears/Nose/Throat/Neck No dizziness 2015 Ears/Nose/Throat/Neck No headache 2015 Cardiovascular No chest pain/pressure Cardiovascular dyspnea 09/22/2015 Cardiovascular edema 09/22/2015 Respiratory No productive sputum 2015 Respiratory No cough 09/22/2015 Gastrointestinal No abdominal pain 2015 Gastrointestinal No constipation 2015 Gastrointestinal No diarrhea 09/22/2015 Genitourinary/Nephrology No dysuria 09/21 Musculoskeletal No joint complaint 2015 Dermatologic No rash 09/22/2015 Neurologic No alteration of consciousness 09/22/2015 Psychiatric anxiety 09/22/2015 Constitutional No recent illness 2015 Constitutional No anorexia 07/21/2015 Constitutional No night sweats 2015 Constitutional No chills 07/21/2015 Constitutional No diaphoresis 07/21/2015 Constitutional No fatigue 07/21/2015 Constitutional No fever 07/21/2015 Constitutional No insomnia 07/21/2015 Constitutional No malaise 07/21/2015 Constitutional weight loss 07/21/2015 Constitutional No weight gain 07/21/2015 Constitutional No obesity 07/21/2015 Psychiatric No depression 07/21/2015 Psychiatric anxiety 07/21/2015 Respiratory No dyspnea on exertion 2015 Respiratory No dyspnea 07/21/2015 Respiratory No cough 07/21/2015 Respiratory No cigarette smoking 2015 Respiratory No chest tightness 2015 Respiratory No chest congestion 2015 Dermatologic sores 07/21/2015 Dermatologic No rash 07/21/2015 Cardiovascular No chest pain/pressure Cardiovascular edema 07/21/2015 Cardiovascular No dyspnea 07/21/2015 Ears/Nose/Throat/Neck No nasal discharge 07/21/2015 Ears/Nose/Throat/Neck No nasal allergies 07/21/2015 Ears/Nose/Throat/Neck No headache 2015 Gastrointestinal No constipation 2015 Gastrointestinal No diarrhea 07/21/2015 Genitourinary/Nephrology No dysuria 07/20 Musculoskeletal No myalgias 07/21/2015 Musculoskeletal No muscle weakness 2015 Musculoskeletal No joint complaint 2015 Eyes No vision change 07/21/2015 Constitutional No recent illness 2015 Constitutional No anorexia 06/23/2015 Constitutional No night sweats 2015 Constitutional No chills 06/23/2015 Constitutional No diaphoresis 06/23/2015 Constitutional fatigue 06/23/2015 Constitutional No fever 06/23/2015 Constitutional No insomnia 06/23/2015 Constitutional No malaise 06/23/2015 Constitutional weight loss 06/23/2015 Eyes No eye discharge 06/23/2015 Eyes No eye erythema 06/23/2015 Ears/Nose/Throat/Neck No dizziness 2015 Ears/Nose/Throat/Neck No headache 2015 Cardiovascular No chest pain/pressure Cardiovascular edema 06/23/2015 Cardiovascular No dyspnea 06/23/2015 Respiratory No productive sputum 2015 Respiratory No cough 06/23/2015 Gastrointestinal No abdominal pain 2015 Gastrointestinal No constipation 2015 Gastrointestinal No diarrhea 06/23/2015 Gastrointestinal hematochezia 06/23/2015 Genitourinary/Nephrology No dysuria 06/22 Musculoskeletal No joint complaint 2015 Dermatologic No drainage 06/23/2015 Neurologic No alteration of consciousness 06/23/2015 Musculoskeletal joint complaint 2015 Eyes No eye discharge 06/12/2015 Constitutional No recent illness 2015 Constitutional No anorexia 06/12/2015 Constitutional No night sweats 2015 Constitutional No chills 06/12/2015 Constitutional No diaphoresis 06/12/2015 Constitutional No fatigue 06/12/2015 Constitutional No fever 06/12/2015 Constitutional No insomnia 06/12/2015 Constitutional No malaise 06/12/2015 Constitutional No weight loss 06/12/2015 Constitutional No weight gain 06/12/2015 Ears/Nose/Throat/Neck No dizziness 2015 Ears/Nose/Throat/Neck No headache 2015 Cardiovascular No chest pain/pressure Cardiovascular dyspnea 06/12/2015 Cardiovascular edema 06/12/2015 Respiratory No productive sputum 2015 Respiratory No cough 06/12/2015 Respiratory dyspnea on exertion 2015 Gastrointestinal No abdominal pain 2015 Gastrointestinal No constipation 2015 Gastrointestinal No diarrhea 06/12/2015 Genitourinary/Nephrology No dysuria 06/11 Dermatologic No rash 06/12/2015 Neurologic No alteration of consciousness 06/12/2015 Constitutional No recent illness 2015 Constitutional No anorexia 06/02/2015 Constitutional No night sweats 2015 Constitutional No chills 06/02/2015 Constitutional No diaphoresis 06/02/2015 Constitutional fatigue 06/02/2015 Constitutional No fever 06/02/2015 Constitutional No insomnia 06/02/2015 Constitutional No malaise 06/02/2015 Constitutional No weight loss 06/02/2015 Constitutional No weight gain 06/02/2015 Constitutional No obesity 06/02/2015 Ears/Nose/Throat/Neck nasal discharge 06/2015 Ears/Nose/Throat/Neck nasal allergies 06/2015 Ears/Nose/Throat/Neck No headache 2015 Ears/Nose/Throat/Neck No otitis media 06/2015 Ears/Nose/Throat/Neck No otalgia 2015 Cardiovascular No chest pain/pressure 06/2015 Cardiovascular arrhythmia 06/02/2015 Cardiovascular dyspnea 06/02/2015 Cardiovascular edema 06/02/2015 Cardiovascular exercise intolerance 06/01 Cardiovascular hypertension 06/02/2015 Respiratory dyspnea on exertion 2015 Respiratory dyspnea 06/02/2015 Respiratory No cigarette smoking 2015 Respiratory No cough 06/02/2015 Respiratory No chest congestion 2015 Respiratory No chest tightness 2015 Gastrointestinal No abdominal pain 2015 Gastrointestinal No diarrhea 06/02/2015 Gastrointestinal No constipation 2015 Genitourinary/Nephrology No dysuria 06/01 Musculoskeletal No muscle weakness 2015 Musculoskeletal myalgias 06/02/2015 Musculoskeletal No joint complaint 2015 Dermatologic No rash 06/02/2015 Dermatologic No sores 06/02/2015 Neurologic No alteration of consciousness 06/02/2015 Eyes eye discharge 06/02/2015 Constitutional No recent illness 2015 Constitutional No anorexia 03/31/2015 Constitutional No night sweats 2015 Constitutional No chills 03/31/2015 Constitutional No diaphoresis 03/31/2015 Constitutional fatigue 03/31/2015 Constitutional No fever 03/31/2015 Constitutional No malaise 03/31/2015 Constitutional No insomnia 03/31/2015 Constitutional No weight loss 03/31/2015 Constitutional No weight gain 03/31/2015 Eyes No eye discharge 03/31/2015 Eyes No eye erythema 03/31/2015 Ears/Nose/Throat/Neck No nasal allergies 03/31/2015 Ears/Nose/Throat/Neck No nasal discharge 03/31/2015 Ears/Nose/Throat/Neck No sore throat 03/2015 Ears/Nose/Throat/Neck No sinus congestion 03/31/2015 Cardiovascular No chest pain/pressure 03/2015 Cardiovascular No dyspnea 03/31/2015 Respiratory No productive sputum 2015 Respiratory dyspnea on exertion 2015 Gastrointestinal No abdominal pain 2015 Gastrointestinal No constipation 2015 Gastrointestinal No diarrhea 03/31/2015 Genitourinary/Nephrology No dysuria 03/31 Musculoskeletal joint complaint 2015 Dermatologic No rash 03/31/2015 Neurologic No alteration of consciousness 03/31/2015 Psychiatric anxiety 03/31/2015 Psychiatric depression 03/31/2015 Endocrine No dry or coarse skin 2015 Hematologic/Lymphatic No abnormal bleeding and bruising 03/31/2015 Respiratory cough 01/30/2015 Constitutional No recent illness 2014 Constitutional No anorexia 01/30/2015 Constitutional No night sweats 2014 Constitutional No chills 01/30/2015 Constitutional No diaphoresis 01/30/2015 Constitutional No fatigue 01/30/2015 Constitutional No fever 01/30/2015 Constitutional No weight loss 01/30/2015 Constitutional No malaise 01/30/2015 Constitutional No insomnia 01/30/2015 Constitutional No weight gain 01/30/2015 Eyes No eye discharge 01/30/2015 Eyes No eye erythema 01/30/2015 Ears/Nose/Throat/Neck No headache 2014 Ears/Nose/Throat/Neck No dizziness 2014 Ears/Nose/Throat/Neck nasal discharge 05/2014 Ears/Nose/Throat/Neck No otalgia 2014 Ears/Nose/Throat/Neck No sinus congestion 01/30/2015 Cardiovascular No chest pain/pressure 05/2014 Gastrointestinal No abdominal pain 2014 Gastrointestinal No constipation 2014 Gastrointestinal No diarrhea 01/30/2015 Genitourinary/Nephrology No dysuria 01/30 Musculoskeletal joint complaint 2014 Dermatologic No rash 01/30/2015 Dermatologic No sores 01/30/2015 Neurologic No alteration of consciousness 01/30/2015 Psychiatric No anxiety 01/30/2015 Constitutional No night sweats 2014 Constitutional No chills 12/22/2014 Constitutional fatigue 12/22/2014 Constitutional No fever 12/22/2014 Constitutional No insomnia 12/22/2014 Constitutional No malaise 12/22/2014 Eyes No eye discharge 12/22/2014 Eyes No eye erythema 12/22/2014 Ears/Nose/Throat/Neck nasal allergies Cardiovascular No chest pain/pressure Respiratory No productive sputum 2014 Respiratory No cough 12/22/2014 Gastrointestinal No abdominal pain 2014 Gastrointestinal No constipation 2014 Gastrointestinal diarrhea 12/22/2014 Genitourinary/Nephrology No dysuria 12/22 Musculoskeletal back pain 12/22/2014 Dermatologic No rash 12/22/2014 Neurologic No alteration of consciousness 12/22/2014 Psychiatric No anxiety 12/22/2014 Psychiatric depression 12/22/2014 Ears/Nose/Throat/Neck No sinus congestion 12/22/2014 Ears/Nose/Throat/Neck No otalgia 2014 Ears/Nose/Throat/Neck No nasal discharge 12/22/2014 Cardiovascular No dyspnea 12/22/2014 Cardiovascular edema 12/22/2014 Constitutional recent illness 10/29/2014 Constitutional anorexia 10/29/2014 Constitutional No night sweats 2014 Constitutional No chills 10/29/2014 Constitutional diaphoresis 10/29/2014 Constitutional fatigue 10/29/2014 Constitutional No fever 10/29/2014 Constitutional No insomnia 10/29/2014 Constitutional No malaise 10/29/2014 Eyes No eye discharge 10/29/2014 Eyes No eye erythema 10/29/2014 Ears/Nose/Throat/Neck nasal allergies 03/2014 Ears/Nose/Throat/Neck nasal discharge 03/2014 Ears/Nose/Throat/Neck otalgia 10/29/2014 Ears/Nose/Throat/Neck sinus congestion Cardiovascular No chest pain/pressure 03/2014 Respiratory productive sputum 10/29/2014 Respiratory cough 10/29/2014 Gastrointestinal No abdominal pain 2014 Gastrointestinal No constipation 2014 Gastrointestinal No diarrhea 10/29/2014 Genitourinary/Nephrology No dysuria 10/29 Musculoskeletal back pain 10/29/2014 Dermatologic No rash 10/29/2014 Neurologic No alteration of consciousness 10/29/2014 Psychiatric No anxiety 10/29/2014 Psychiatric depression 10/29/2014 Constitutional recent illness 10/14/2014 Constitutional anorexia 10/14/2014 Constitutional night sweats 10/14/2014 Constitutional chills 10/14/2014 Constitutional diaphoresis 10/14/2014 Constitutional fatigue 10/14/2014 Constitutional fever 10/14/2014 Constitutional No insomnia 10/14/2014 Constitutional No malaise 10/14/2014 Constitutional No weight loss 10/14/2014 Constitutional No weight gain 10/14/2014 Eyes No eye discharge 10/14/2014 Eyes No eye erythema 10/14/2014 Ears/Nose/Throat/Neck nasal allergies Ears/Nose/Throat/Neck nasal discharge Ears/Nose/Throat/Neck sinus congestion Ears/Nose/Throat/Neck otalgia 10/14/2014 Cardiovascular No chest pain/pressure Respiratory productive sputum 10/14/2014 Respiratory cough 10/14/2014 Gastrointestinal No abdominal pain 2014 Gastrointestinal No constipation 2014 Gastrointestinal No diarrhea 10/14/2014 Genitourinary/Nephrology No dysuria 10/14 Musculoskeletal back pain 10/14/2014 Dermatologic No rash 10/14/2014 Neurologic No alteration of consciousness 10/14/2014 Constitutional No recent illness 2014 Constitutional No anorexia 09/19/2014 Constitutional No fever 09/19/2014 Constitutional No insomnia 09/19/2014 Constitutional No malaise 09/19/2014 Constitutional No weight loss 09/19/2014 Constitutional No weight gain 09/19/2014 Eyes No eye discharge 09/19/2014 Eyes No eye erythema 09/19/2014 Ears/Nose/Throat/Neck No dizziness 2014 Ears/Nose/Throat/Neck No headache 2014 Cardiovascular No chest pain/pressure Cardiovascular No dyspnea 09/19/2014 Cardiovascular edema 09/19/2014 Respiratory No chest congestion 2014 Respiratory No cough 09/19/2014 Gastrointestinal No constipation 2014 Gastrointestinal No diarrhea 09/19/2014 Genitourinary/Nephrology No dysuria 09/19 Musculoskeletal No joint complaint 2014 Dermatologic No rash 09/19/2014 Gastrointestinal gastroesophageal reflux 09/19/2014 Musculoskeletal myalgias 09/19/2014 Neurologic No alteration of consciousness 09/19/2014 Constitutional No recent illness 2014 Constitutional No anorexia 08/22/2014 Constitutional No fever 08/22/2014 Constitutional No insomnia 08/22/2014 Constitutional No malaise 08/22/2014 Constitutional No weight loss 08/22/2014 Constitutional No weight gain 08/22/2014 Eyes No eye discharge 08/22/2014 Eyes No eye erythema 08/22/2014 Ears/Nose/Throat/Neck No dizziness 2014 Ears/Nose/Throat/Neck No headache 2014 Cardiovascular No chest pain/pressure Cardiovascular No dyspnea 08/22/2014 Cardiovascular edema 08/22/2014 Respiratory No cough 08/22/2014 Respiratory No chest congestion 2014 Gastrointestinal No constipation 2014 Gastrointestinal No diarrhea 08/22/2014 Genitourinary/Nephrology No dysuria 08/22 Musculoskeletal No joint complaint 2014 Dermatologic No rash 08/22/2014 Respiratory dyspnea on exertion 2014 Genitourinary/Nephrology nocturia 2014 Musculoskeletal back pain 08/04/2014 Constitutional No fever 07/24/2014 Constitutional No night sweats 2014 Constitutional No chills 07/24/2014 Eyes No eye pain 07/24/2014 Eyes No eye discharge 07/24/2014 Ears/Nose/Throat/Neck No headache 2014 Ears/Nose/Throat/Neck No nasal discharge 07/24/2014 Cardiovascular No chest pain/pressure Respiratory dyspnea on exertion 2014 Gastrointestinal No constipation 2014 Gastrointestinal No diarrhea 07/24/2014 Genitourinary/Nephrology No hematuria Genitourinary/Nephrology No dysuria 07/24 Genitourinary/Nephrology nocturia 2014 Musculoskeletal back pain 07/24/2014 Constitutional No chills 07/15/2014 Constitutional No diaphoresis 07/15/2014 Constitutional No fatigue 07/15/2014 Constitutional No fever 07/15/2014 Constitutional No insomnia 07/15/2014 Constitutional No malaise 07/15/2014 Constitutional No recent illness 2014 Ears/Nose/Throat/Neck No dizziness 2014 Ears/Nose/Throat/Neck No sore throat Cardiovascular chest pain/pressure 2014 Cardiovascular No edema 07/15/2014 Cardiovascular No exercise intolerance Cardiovascular fatigue 07/15/2014 Cardiovascular palpitations 07/15/2014 Cardiovascular No syncope 07/15/2014 Respiratory No chest congestion 2014 Respiratory No cough 07/15/2014 Gastrointestinal No abdominal pain 2014 Gastrointestinal No constipation 2014 Gastrointestinal No diarrhea 07/15/2014 Gastrointestinal No nausea 07/15/2014 Gastrointestinal No vomiting 07/15/2014 Dermatologic No rash 07/15/2014 Neurologic No alteration of consciousness 07/15/2014 Neurologic No mental status change 2014 Psychiatric No anxiety 07/15/2014 Psychiatric depression 07/15/2014 Musculoskeletal stiffness 07/15/2014 Musculoskeletal No swelling 07/15/2014 Musculoskeletal No muscle weakness 2014 Musculoskeletal No myalgias 07/15/2014 Musculoskeletal arthralgia(s) 07/15/2014 Genitourinary/Nephrology No dysuria 07/15 Genitourinary/Nephrology No nocturia Genitourinary/Nephrology No urinary incontinence 07/15/2014 Eyes No blindness 07/15/2014 Eyes No vision change 07/15/2014 Physical Exam Exam Name System Name Item Name Status Result Effective Dates Notes Full Exam - General 1994 Constitutional general appearance Overall: well developed 03/07/2017 None Full Exam - General 1994 Constitutional general appearance Overall: in no acute distress 03/07/2017 None Full Exam - General 1994 Constitutional general appearance Overall: well nourished 03/07/2017 None Full Exam - General 1994 Constitutional general appearance Assistive Device: walker 03/07/2017 None Full Exam - General 1994 Eyes conjunctiva /eyelids Overall: conjunctiva clear 03/07/2017 None Full Exam - General 1994 Eyes conjunctiva /eyelids Overall: cornea clear 03/07/2017 None Full Exam - General 1994 Eyes conjunctiva /eyelids Overall: eyelids normal 03/07/2017 None Full Exam - General 1994 Eyes pupils and irises Overall: pupils equal, round, reactive to light and accomodation 03/07/2017 None Full Exam - General 1994 Ears/Nose/Throat otoscopic exam Overall: external auditory canals clear 03/07/2017 None Full Exam - General 1994 Ears/Nose/Throat otoscopic exam Overall: tympanic membranes clear 03/07/2017 None Full Exam - General 1994 Ears/Nose/Throat lips/teeth/gingiva Overall: benign lips 03/07/2017 None Full Exam - General 1995 Ears/Nose/Throat lips/teeth/gingiva Overall: normal dentition 03/07/2017 None Full Exam - General 1995 Ears/Nose/Throat lips/teeth/gingiva Overall: benign gingiva 03/07/2017 None Full Exam - General 1994 Ears/Nose/Throat lips/teeth/gingiva Overall: no masses 03/07/2017 None Full Exam - General 1994 Ears/Nose/Throat oral cavity/pharynx/larynx Overall: oral mucosa clear 03/07/2017 None Full Exam - General 1995 Ears/Nose/Throat oral cavity/pharynx/larynx Overall: oropharyngeal mucosa clear 03/07/2017 None Full Exam - General 1994 Ears/Nose/Throat oral cavity/pharynx/larynx Overall: no masses 03/07/2017 None Full Exam - General 1994 Respiratory auscultation Overall: breath sounds clear bilaterally 03/07/2017 None Full Exam - General 1994 Respiratory respiratory effort/rhythm Overall: no retractions 03/07/2017 None Full Exam - General 1994 Respiratory respiratory effort/rhythm Overall: normal rate 03/07/2017 None Full Exam - General 1994 Cardiovascular extremities Overall: no clubbing 03/07/2017 None Full Exam - General 1994 Cardiovascular extremities Edema present: pitting 03/07/2017 None Full Exam - General 1994 Cardiovascular extremities Edema present: bilateral 03/07/2017 None Full Exam - General 1994 Cardiovascular extremities Edema present: to leg 03/07/2017 None Full Exam - General 1994 Cardiovascular extremities Edema present: to knees 03/07/2017 None Full Exam - General 1994 Cardiovascular auscultation of heart Rate: regular rate 03/07/2017 None Full Exam - General 1994 Cardiovascular auscultation of heart Rhythm: regular rhythm 03/07/2017 None Full Exam - General 1994 Abdomen abdominal exam Overall: no tenderness 03/07/2017 None Full Exam - General 1994 Abdomen abdominal exam Overall: normal bowel sounds 03/07/2017 None Full Exam - General 1994 Musculoskeletal gait and station Overall: normal gait 03/07/2017 None Full Exam - General 1994 Musculoskeletal gait and station Overall: normal station 03/07/2017 None Full Exam - General 1994 Integument inspection of skin Overall: no rash, lesions 03/07/2017 None Full Exam - General 1994 Psychiatric orientation/consciousness Overall: oriented to person, place and time 03/07/2017 None Full Exam - General 1994 Psychiatric mood and affect Overall: normal mood and affect 03/07/2017 None Full Exam - General 1994 Cardiovascular extremities Edema present: severity 3+ 03/07/2017 None Full Exam - General 1994 Constitutional general appearance Overall: well developed 01/24/2017 None Full Exam - General 1994 Constitutional general appearance Overall: in no acute distress 01/24/2017 None Full Exam - General 1994 Constitutional general appearance Overall: well nourished 01/24/2017 None Full Exam - General 1994 Constitutional general appearance Assistive Device: walker 01/24/2017 None Full Exam - General 1994 Eyes conjunctiva /eyelids Overall: conjunctiva clear 01/24/2017 None Full Exam - General 1994 Eyes conjunctiva /eyelids Overall: cornea clear 01/24/2017 None Full Exam - General 1994 Eyes conjunctiva /eyelids Overall: eyelids normal 01/24/2017 None Full Exam - General 1994 Eyes pupils and irises Overall: pupils equal, round, reactive to light and accomodation 01/24/2017 None Full Exam - General 1994 Ears/Nose/Throat otoscopic exam Overall: external auditory canals clear 01/24/2017 None Full Exam - General 1994 Ears/Nose/Throat otoscopic exam Overall: tympanic membranes clear 01/24/2017 None Full Exam - General 1994 Ears/Nose/Throat lips/teeth/gingiva Overall: benign lips 01/24/2017 None Full Exam - General 1994 Ears/Nose/Throat lips/teeth/gingiva Overall: normal dentition 01/24/2017 None Full Exam - General 1994 Ears/Nose/Throat lips/teeth/gingiva Overall: benign gingiva 01/24/2017 None Full Exam - General 1994 Ears/Nose/Throat lips/teeth/gingiva Overall: no masses 01/24/2017 None Full Exam - General 1994 Ears/Nose/Throat oral cavity/pharynx/larynx Overall: oral mucosa clear 01/24/2017 None Full Exam - General 1994 Ears/Nose/Throat oral cavity/pharynx/larynx Overall: oropharyngeal mucosa clear 01/24/2017 None Full Exam - General 1994 Ears/Nose/Throat oral cavity/pharynx/larynx Overall: no masses 01/24/2017 None Full Exam - General 1994 Respiratory auscultation Overall: breath sounds clear bilaterally 01/24/2017 None Full Exam - General 1994 Respiratory respiratory effort/rhythm Overall: no retractions 01/24/2017 None Full Exam - General 1994 Respiratory respiratory effort/rhythm Overall: normal rate 01/24/2017 None Full Exam - General 1994 Cardiovascular extremities Overall: no clubbing 01/24/2017 None Full Exam - General 1994 Cardiovascular extremities Edema present: pitting 01/24/2017 None Full Exam - General 1994 Cardiovascular extremities Edema present: severity 1+ - 4 +: 1-2+ 01/24/2017 None Full Exam - General 1994 Cardiovascular extremities Edema present: bilateral 01/24/2017 None Full Exam - General 1994 Cardiovascular extremities Edema present: to leg 01/24/2017 None Full Exam - General 1994 Cardiovascular extremities Edema present: to knees 01/24/2017 None Full Exam - General 1994 Cardiovascular auscultation of heart Rate: regular rate 01/24/2017 None Full Exam - General 1994 Cardiovascular auscultation of heart Rhythm: regular rhythm 01/24/2017 None Full Exam - General 1994 Abdomen abdominal exam Overall: no tenderness 01/24/2017 None Full Exam - General 1994 Abdomen abdominal exam Overall: normal bowel sounds 01/24/2017 None Full Exam - General 1994 Musculoskeletal gait and station Overall: normal gait 01/24/2017 None Full Exam - General 1994 Musculoskeletal gait and station Overall: normal station 01/24/2017 None Full Exam - General 1994 Integument inspection of skin Overall: no rash, lesions 01/24/2017 None Full Exam - General 1994 Psychiatric orientation/consciousness Overall: oriented to person, place and time 01/24/2017 None Full Exam - General 1994 Psychiatric mood and affect Overall: normal mood and affect 01/24/2017 None Full Exam - General 1994 Constitutional general appearance Overall: well developed 09/29/2016 None Full Exam - General 1994 Constitutional general appearance Overall: in no acute distress 09/29/2016 None Full Exam - General 1994 Constitutional general appearance Overall: well nourished 09/29/2016 None Full Exam - General 1994 Eyes conjunctiva /eyelids Overall: conjunctiva clear 09/29/2016 None Full Exam - General 1994 Eyes conjunctiva /eyelids Overall: eyelids normal 09/29/2016 None Full Exam - General 1994 Eyes pupils and irises Overall: pupils equal, round, reactive to light and accomodation 09/29/2016 None Full Exam - General 1994 Ears/Nose/Throat lips/teeth/gingiva Overall: benign lips 09/29/2016 None Full Exam - General 1994 Ears/Nose/Throat oral cavity/pharynx/larynx Overall: oral mucosa clear 09/29/2016 None Full Exam - General 1994 Ears/Nose/Throat oral cavity/pharynx/larynx Overall: oropharyngeal mucosa clear 09/29/2016 None Full Exam - General 1994 Respiratory respiratory effort/rhythm Overall: no retractions 09/29/2016 None Full Exam - General 1994 Respiratory respiratory effort/rhythm Overall: normal rate 09/29/2016 None Full Exam - General 1994 Cardiovascular auscultation of heart Rate: regular rate 09/29/2016 None Full Exam - General 1994 Cardiovascular auscultation of heart Rhythm: regular rhythm 09/29/2016 None Full Exam - General 1994 Abdomen abdominal exam Overall: no tenderness 09/29/2016 None Full Exam - General 1994 Abdomen abdominal exam Overall: normal bowel sounds 09/29/2016 None Full Exam - General 1994 Psychiatric orientation/consciousness Overall: oriented to person, place and time 09/29/2016 None Full Exam - General 1994 Psychiatric mood and affect Overall: normal mood and affect 09/29/2016 None Full Exam - General 1994 Constitutional general appearance Assistive Device: wheelchair 09/29/2016 None Full Exam - General 1994 Respiratory auscultation Diffuse: diminished 09/29/2016 None Full Exam - General 1994 Musculoskeletal head and neck Overall: head atraumatic 09/29/2016 None Full Exam - General 1994 Neurologic cranial nerves Overall: crainial nerves 2 - 12 grossly intact 09/29/2016 None Full Exam - General 1994 Psychiatric appearance Overall: well-groomed, good eye contact 09/29/2016 None Full Exam - General 1994 Constitutional general appearance Overall: well developed 09/13/2016 None Full Exam - General 1994 Constitutional general appearance Overall: in no acute distress 09/13/2016 None Full Exam - General 1994 Constitutional general appearance Overall: well nourished 09/13/2016 None Full Exam - General 1994 Eyes conjunctiva /eyelids Overall: conjunctiva clear 09/13/2016 None Full Exam - General 1994 Eyes conjunctiva /eyelids Overall: cornea clear 09/13/2016 None Full Exam - General 1994 Eyes conjunctiva /eyelids Overall: eyelids normal 09/13/2016 None Full Exam - General 1994 Eyes pupils and irises Overall: pupils equal, round, reactive to light and accomodation 09/13/2016 None Full Exam - General 1994 Ears/Nose/Throat otoscopic exam Overall: external auditory canals clear 09/13/2016 None Full Exam - General 1994 Ears/Nose/Throat otoscopic exam Overall: tympanic membranes clear 09/13/2016 None Full Exam - General 1994 Ears/Nose/Throat lips/teeth/gingiva Overall: benign lips 09/13/2016 None Full Exam - General 1994 Ears/Nose/Throat lips/teeth/gingiva Overall: normal dentition 09/13/2016 None Full Exam - General 1994 Ears/Nose/Throat lips/teeth/gingiva Overall: benign gingiva 09/13/2016 None Full Exam - General 1994 Ears/Nose/Throat lips/teeth/gingiva Overall: no masses 09/13/2016 None Full Exam - General 1994 Ears/Nose/Throat oral cavity/pharynx/larynx Overall: oral mucosa clear 09/13/2016 None Full Exam - General 1994 Ears/Nose/Throat oral cavity/pharynx/larynx Overall: oropharyngeal mucosa clear 09/13/2016 None Full Exam - General 1994 Ears/Nose/Throat oral cavity/pharynx/larynx Overall: no masses 09/13/2016 None Full Exam - General 1994 Respiratory auscultation Overall: breath sounds clear bilaterally 09/13/2016 None Full Exam - General 1994 Respiratory respiratory effort/rhythm Overall: no retractions 09/13/2016 None Full Exam - General 1994 Respiratory respiratory effort/rhythm Overall: normal rate 09/13/2016 None Full Exam - General 1994 Cardiovascular extremities Overall: no clubbing 09/13/2016 None Full Exam - General 1994 Cardiovascular extremities Edema present: pitting 09/13/2016 None Full Exam - General 1994 Cardiovascular extremities Edema present: severity 1+ - 4 +: 1-2+ 09/13/2016 None Full Exam - General 1994 Cardiovascular extremities Edema present: bilateral 09/13/2016 None Full Exam - General 1994 Cardiovascular extremities Edema present: to leg 09/13/2016 None Full Exam - General 1994 Cardiovascular extremities Edema present: to knees 09/13/2016 None Full Exam - General 1994 Cardiovascular auscultation of heart Rate: regular rate 09/13/2016 None Full Exam - General 1994 Cardiovascular auscultation of heart Rhythm: regular rhythm 09/13/2016 None Full Exam - General 1994 Abdomen abdominal exam Overall: no tenderness 09/13/2016 None Full Exam - General 1994 Abdomen abdominal exam Overall: normal bowel sounds 09/13/2016 None Full Exam - General 1994 Musculoskeletal gait and station Overall: normal gait 09/13/2016 None Full Exam - General 1994 Musculoskeletal gait and station Overall: normal station 09/13/2016 None Full Exam - General 1994 Integument inspection of skin Overall: no rash, lesions 09/13/2016 None Full Exam - General 1994 Psychiatric orientation/consciousness Overall: oriented to person, place and time 09/13/2016 None Full Exam - General 1994 Psychiatric mood and affect Overall: normal mood and affect 09/13/2016 None Full Exam - General 1994 Constitutional general appearance Assistive Device: walker 09/13/2016 None Full Exam - General 1994 Constitutional general appearance Overall: well developed 05/31/2016 None Full Exam - General 1994 Constitutional general appearance Overall: in no acute distress 05/31/2016 None Full Exam - General 1994 Constitutional general appearance Overall: well nourished 05/31/2016 None Full Exam - General 1994 Eyes conjunctiva /eyelids Overall: conjunctiva clear 05/31/2016 None Full Exam - General 1994 Eyes conjunctiva /eyelids Overall: cornea clear 05/31/2016 None Full Exam - General 1994 Eyes conjunctiva /eyelids Overall: eyelids normal 05/31/2016 None Full Exam - General 1994 Eyes pupils and irises Overall: pupils equal, round, reactive to light and accomodation 05/31/2016 None Full Exam - General 1994 Ears/Nose/Throat otoscopic exam Overall: external auditory canals clear 05/31/2016 None Full Exam - General 1994 Ears/Nose/Throat otoscopic exam Overall: tympanic membranes clear 05/31/2016 None Full Exam - General 1994 Ears/Nose/Throat lips/teeth/gingiva Overall: benign lips 05/31/2016 None Full Exam - General 1994 Ears/Nose/Throat lips/teeth/gingiva Overall: normal dentition 05/31/2016 None Full Exam - General 1994 Ears/Nose/Throat lips/teeth/gingiva Overall: benign gingiva 05/31/2016 None Full Exam - General 1994 Ears/Nose/Throat lips/teeth/gingiva Overall: no masses 05/31/2016 None Full Exam - General 1994 Ears/Nose/Throat oral cavity/pharynx/larynx Overall: oral mucosa clear 05/31/2016 None Full Exam - General 1994 Ears/Nose/Throat oral cavity/pharynx/larynx Overall: oropharyngeal mucosa clear 05/31/2016 None Full Exam - General 1994 Ears/Nose/Throat oral cavity/pharynx/larynx Overall: no masses 05/31/2016 None Full Exam - General 1994 Respiratory auscultation Overall: breath sounds clear bilaterally 05/31/2016 None Full Exam - General 1994 Respiratory respiratory effort/rhythm Overall: no retractions 05/31/2016 None Full Exam - General 1994 Respiratory respiratory effort/rhythm Overall: normal rate 05/31/2016 None Full Exam - General 1994 Cardiovascular extremities Overall: no clubbing 05/31/2016 None Full Exam - General 1994 Cardiovascular extremities Edema present: pitting 05/31/2016 None Full Exam - General 1994 Cardiovascular extremities Edema present: severity 1+ - 4 +: 1-2+ 05/31/2016 None Full Exam - General 1994 Cardiovascular extremities Edema present: bilateral 05/31/2016 None Full Exam - General 1994 Cardiovascular extremities Edema present: to leg 05/31/2016 None Full Exam - General 1994 Cardiovascular extremities Edema present: to knees 05/31/2016 None Full Exam - General 1994 Cardiovascular auscultation of heart Rate: regular rate 05/31/2016 None Full Exam - General 1994 Cardiovascular auscultation of heart Rhythm: regular rhythm 05/31/2016 None Full Exam - General 1994 Abdomen abdominal exam Overall: no tenderness 05/31/2016 None Full Exam - General 1994 Abdomen abdominal exam Overall: normal bowel sounds 05/31/2016 None Full Exam - General 1994 Musculoskeletal gait and station Overall: normal gait 05/31/2016 None Full Exam - General 1994 Musculoskeletal gait and station Overall: normal station 05/31/2016 None Full Exam - General 1994 Integument inspection of skin Overall: no rash, lesions 05/31/2016 None Full Exam - General 1994 Psychiatric orientation/consciousness Overall: oriented to person, place and time 05/31/2016 None Full Exam - General 1994 Psychiatric mood and affect Overall: normal mood and affect 05/31/2016 None Full Exam - General 1994 Constitutional general appearance Overall: well developed 05/10/2016 None Full Exam - General 1994 Constitutional general appearance Overall: in no acute distress 05/10/2016 None Full Exam - General 1994 Constitutional general appearance Overall: well nourished 05/10/2016 None Full Exam - General 1994 Eyes conjunctiva /eyelids Overall: conjunctiva clear 05/10/2016 None Full Exam - General 1994 Eyes conjunctiva /eyelids Overall: cornea clear 05/10/2016 None Full Exam - General 1994 Eyes conjunctiva /eyelids Overall: eyelids normal 05/10/2016 None Full Exam - General 1994 Eyes pupils and irises Overall: pupils equal, round, reactive to light and accomodation 05/10/2016 None Full Exam - General 1994 Ears/Nose/Throat otoscopic exam Overall: external auditory canals clear 05/10/2016 None Full Exam - General 1994 Ears/Nose/Throat otoscopic exam Overall: tympanic membranes clear 05/10/2016 None Full Exam - General 1994 Ears/Nose/Throat lips/teeth/gingiva Overall: benign lips 05/10/2016 None Full Exam - General 1994 Ears/Nose/Throat lips/teeth/gingiva Overall: normal dentition 05/10/2016 None Full Exam - General 1994 Ears/Nose/Throat lips/teeth/gingiva Overall: benign gingiva 05/10/2016 None Full Exam - General 1994 Ears/Nose/Throat lips/teeth/gingiva Overall: no masses 05/10/2016 None Full Exam - General 1994 Ears/Nose/Throat oral cavity/pharynx/larynx Overall: oral mucosa clear 05/10/2016 None Full Exam - General 1994 Ears/Nose/Throat oral cavity/pharynx/larynx Overall: oropharyngeal mucosa clear 05/10/2016 None Full Exam - General 1994 Ears/Nose/Throat oral cavity/pharynx/larynx Overall: no masses 05/10/2016 None Full Exam - General 1994 Respiratory auscultation Overall: breath sounds clear bilaterally 05/10/2016 None Full Exam - General 1994 Respiratory respiratory effort/rhythm Overall: no retractions 05/10/2016 None Full Exam - General 1994 Respiratory respiratory effort/rhythm Overall: normal rate 05/10/2016 None Full Exam - General 1994 Cardiovascular extremities Overall: no clubbing 05/10/2016 None Full Exam - General 1994 Cardiovascular extremities Edema present: pitting 05/10/2016 None Full Exam - General 1994 Cardiovascular extremities Edema present: severity 1+ - 4 +: 1-2+ 05/10/2016 None Full Exam - General 1994 Cardiovascular extremities Edema present: bilateral 05/10/2016 None Full Exam - General 1994 Cardiovascular extremities Edema present: to leg 05/10/2016 None Full Exam - General 1994 Cardiovascular extremities Edema present: to knees 05/10/2016 None Full Exam - General 1994 Cardiovascular auscultation of heart Rhythm: regular rhythm 05/10/2016 None Full Exam - General 1994 Abdomen abdominal exam Overall: no tenderness 05/10/2016 None Full Exam - General 1994 Abdomen abdominal exam Overall: normal bowel sounds 05/10/2016 None Full Exam - General 1994 Musculoskeletal gait and station Overall: normal gait 05/10/2016 None Full Exam - General 1994 Musculoskeletal gait and station Overall: normal station 05/10/2016 None Full Exam - General 1994 Integument inspection of skin Overall: no rash, lesions 05/10/2016 None Full Exam - General 1994 Psychiatric orientation/consciousness Overall: oriented to person, place and time 05/10/2016 None Full Exam - General 1994 Psychiatric mood and affect Overall: normal mood and affect 05/10/2016 None Full Exam - General 1994 Cardiovascular auscultation of heart Rate: regular rate 05/10/2016 None Full Exam - General 1994 Constitutional general appearance Overall: well developed 04/25/2016 None Full Exam - General 1994 Constitutional general appearance Overall: in no acute distress 04/25/2016 None Full Exam - General 1994 Constitutional general appearance Overall: well nourished 04/25/2016 None Full Exam - General 1994 Eyes conjunctiva /eyelids Overall: conjunctiva clear 04/25/2016 None Full Exam - General 1994 Eyes conjunctiva /eyelids Overall: cornea clear 04/25/2016 None Full Exam - General 1994 Eyes conjunctiva /eyelids Overall: eyelids normal 04/25/2016 None Full Exam - General 1994 Eyes pupils and irises Overall: pupils equal, round, reactive to light and accomodation 04/25/2016 None Full Exam - General 1994 Ears/Nose/Throat otoscopic exam Overall: external auditory canals clear 04/25/2016 None Full Exam - General 1994 Ears/Nose/Throat otoscopic exam Overall: tympanic membranes clear 04/25/2016 None Full Exam - General 1994 Ears/Nose/Throat lips/teeth/gingiva Overall: benign lips 04/25/2016 None Full Exam - General 1994 Ears/Nose/Throat lips/teeth/gingiva Overall: normal dentition 04/25/2016 None Full Exam - General 1994 Ears/Nose/Throat lips/teeth/gingiva Overall: benign gingiva 04/25/2016 None Full Exam - General 1994 Ears/Nose/Throat lips/teeth/gingiva Overall: no masses 04/25/2016 None Full Exam - General 1994 Ears/Nose/Throat oral cavity/pharynx/larynx Overall: oral mucosa clear 04/25/2016 None Full Exam - General 1994 Ears/Nose/Throat oral cavity/pharynx/larynx Overall: oropharyngeal mucosa clear 04/25/2016 None Full Exam - General 1994 Ears/Nose/Throat oral cavity/pharynx/larynx Overall: no masses 04/25/2016 None Full Exam - General 1994 Respiratory auscultation Overall: breath sounds clear bilaterally 04/25/2016 None Full Exam - General 1994 Respiratory respiratory effort/rhythm Overall: no retractions 04/25/2016 None Full Exam - General 1994 Respiratory respiratory effort/rhythm Overall: normal rate 04/25/2016 None Full Exam - General 1994 Cardiovascular extremities Overall: no clubbing 04/25/2016 None Full Exam - General 1994 Cardiovascular extremities Edema present: pitting 04/25/2016 None Full Exam - General 1994 Cardiovascular extremities Edema present: severity 1+ - 4 +: 1-2+ 04/25/2016 None Full Exam - General 1994 Cardiovascular extremities Edema present: bilateral 04/25/2016 None Full Exam - General 1994 Cardiovascular extremities Edema present: to leg 04/25/2016 None Full Exam - General 1994 Cardiovascular extremities Edema present: to knees 04/25/2016 None Full Exam - General 1994 Abdomen abdominal exam Overall: no tenderness 04/25/2016 None Full Exam - General 1994 Abdomen abdominal exam Overall: normal bowel sounds 04/25/2016 None Full Exam - General 1994 Musculoskeletal gait and station Overall: normal gait 04/25/2016 None Full Exam - General 1994 Musculoskeletal gait and station Overall: normal station 04/25/2016 None Full Exam - General 1994 Integument inspection of skin Overall: no rash, lesions 04/25/2016 None Full Exam - General 1994 Psychiatric orientation/consciousness Overall: oriented to person, place and time 04/25/2016 None Full Exam - General 1994 Psychiatric mood and affect Overall: normal mood and affect 04/25/2016 None Full Exam - General 1994 Cardiovascular auscultation of heart Rate: tachycardia 04/25/2016 None Full Exam - General 1994 Cardiovascular auscultation of heart Rhythm: regular rhythm 04/25/2016 None Full Exam - General 1994 Constitutional general appearance Development: appears stated age 1101/14/2016 None Full Exam - General 1994 Constitutional general appearance Evidence of Distress: in no acute distress 01/14/2016 None Full Exam - General 1994 Eyes pupils and irises Overall: pupils equal, round, reactive to light and accomodation 01/14/2016 None Full Exam - General 1994 Ears/Nose/Throat otoscopic exam External auditory canal: partial cerumen occlusion 01/14/2016 None Full Exam - General 1994 Ears/Nose/Throat otoscopic exam External auditory canal: tender 01/14/2016 None Full Exam - General 1994 Ears/Nose/Throat otoscopic exam External auditory canal: erythematous 01/14/2016 None Full Exam - General 1994 Ears/Nose/Throat otoscopic exam Tympanic membrane: not visualized 01/14/2016 None Full Exam - General 1994 Ears/Nose/Throat otoscopic exam Tympanic membrane: effusion 01/14/2016 None Full Exam - General 1994 Ears/Nose/Throat otoscopic exam External auditory canal: nontender 01/14/2016 None Full Exam - General 1994 Ears/Nose/Throat oral cavity/pharynx/larynx Oropharynx: erythema 01/14/2016 None Full Exam - General 1994 Ears/Nose/Throat oral cavity/pharynx/larynx Oral mucosa: moist 01/14/2016 None Full Exam - General 1994 Ears/Nose/Throat oral cavity/pharynx/larynx Posterior Pharynx: no post nasal drainage 01/14/2016 None Full Exam - General 1994 Neck inspection of neck Size: thick None Full Exam - General 1994 Neck inspection of neck Swelling: right 01/14/2016 None Full Exam - General 1994 Neck inspection of neck Swelling: mastoid 01/14/2016 None Full Exam - General 1994 Neck inspection of neck Swelling: tender 01/14/2016 None Full Exam - General 1994 Neck inspection of neck Swelling: soft 01/14/2016 None Full Exam - General 1994 Neck inspection of neck Swelling: no drainage 01/14/2016 None Full Exam - General 1994 Respiratory respiratory effort/rhythm Rate: tachypnea 01/14/2016 None Full Exam - General 1994 Respiratory respiratory effort/rhythm Overall: no retractions 01/14/2016 None Full Exam - General 1994 Cardiovascular auscultation of heart Overall: normal heart sounds 01/14/2016 None Full Exam - General 1994 Respiratory auscultation Overall: breath sounds clear bilaterally 01/14/2016 None Full Exam - General 1994 Abdomen abdominal exam Overall: normal bowel sounds 01/14/2016 None Full Exam - General 1994 Neurologic mental status Overall: alert 01/14/2016 None Full Exam - General 1994 Neurologic mental status Overall: oriented 01/14/2016 None Full Exam - General 1994 Psychiatric orientation/consciousness Overall: oriented to person, place and time 01/14/2016 None Full Exam - General 1994 Psychiatric mood and affect Overall: normal mood and affect 01/14/2016 None Full Exam - General 1994 Psychiatric speech Overall: normal quality, no aphasia 01/14/2016 None Full Exam - General 1994 Psychiatric thought Overall: normal form and content 01/14/2016 None Full Exam - General 1994 Cardiovascular auscultation of heart Rhythm: irregular rhythm 01/14/2016 None Full Exam - General 1994 Constitutional general appearance Overall: well developed 01/14/2016 None Full Exam - General 1994 Constitutional general appearance Overall: well nourished 01/14/2016 None Full Exam - General 1994 Eyes conjunctiva /eyelids Overall: conjunctiva clear 01/14/2016 None Full Exam - General 1994 Eyes conjunctiva /eyelids Overall: cornea clear 01/14/2016 None Full Exam - General 1994 Eyes conjunctiva /eyelids Overall: eyelids normal 01/14/2016 None Full Exam - General 1994 Ears/Nose/Throat otoscopic exam Overall: external auditory canals clear 01/14/2016 None Full Exam - General 1994 Ears/Nose/Throat otoscopic exam Overall: tympanic membranes clear 01/14/2016 None Full Exam - General 1994 Ears/Nose/Throat lips/teeth/gingiva Overall: benign lips 01/14/2016 None Full Exam - General 1994 Ears/Nose/Throat lips/teeth/gingiva Overall: normal dentition 01/14/2016 None Full Exam - General 1994 Ears/Nose/Throat lips/teeth/gingiva Overall: benign gingiva 01/14/2016 None Full Exam - General 1994 Ears/Nose/Throat lips/teeth/gingiva Overall: no masses 01/14/2016 None Full Exam - General 1994 Ears/Nose/Throat oral cavity/pharynx/larynx Overall: oral mucosa clear 01/14/2016 None Full Exam - General 1994 Ears/Nose/Throat oral cavity/pharynx/larynx Overall: oropharyngeal mucosa clear 01/14/2016 None Full Exam - General 1994 Ears/Nose/Throat oral cavity/pharynx/larynx Overall: no masses 01/14/2016 None Full Exam - General 1994 Respiratory respiratory effort/rhythm Overall: normal rate 01/14/2016 None Full Exam - General 1994 Cardiovascular extremities Overall: no clubbing 01/14/2016 None Full Exam - General 1994 Cardiovascular extremities Edema present: pitting 01/14/2016 None Full Exam - General 1994 Cardiovascular extremities Edema present: bilateral 01/14/2016 None Full Exam - General 1994 Cardiovascular extremities Edema present: to leg 01/14/2016 None Full Exam - General 1994 Cardiovascular extremities Edema present: to knees 01/14/2016 None Full Exam - General 1994 Cardiovascular auscultation of heart Overall: regular rate 01/14/2016 None Full Exam - General 1994 Abdomen abdominal exam Overall: no tenderness 01/14/2016 None Full Exam - General 1994 Musculoskeletal gait and station Overall: normal gait 01/14/2016 None Full Exam - General 1994 Musculoskeletal gait and station Overall: normal station 01/14/2016 None Full Exam - General 1994 Integument inspection of skin Overall: no rash, lesions 01/14/2016 None Full Exam - General 1994 Cardiovascular extremities Edema present: severity 1+ - 4 +: 1+ 01/14/2016 None Full Exam - General 1994 Constitutional general appearance Overall: well developed 12/10/2015 None Full Exam - General 1994 Constitutional general appearance Overall: in no acute distress 12/10/2015 None Full Exam - General 1994 Constitutional general appearance Overall: well nourished 12/10/2015 None Full Exam - General 1994 Eyes conjunctiva /eyelids Overall: conjunctiva clear 12/10/2015 None Full Exam - General 1994 Eyes conjunctiva /eyelids Overall: cornea clear 12/10/2015 None Full Exam - General 1994 Eyes conjunctiva /eyelids Overall: eyelids normal 12/10/2015 None Full Exam - General 1994 Eyes pupils and irises Overall: pupils equal, round, reactive to light and accomodation 12/10/2015 None Full Exam - General 1994 Ears/Nose/Throat otoscopic exam Overall: external auditory canals clear 12/10/2015 None Full Exam - General 1994 Ears/Nose/Throat otoscopic exam Overall: tympanic membranes clear 12/10/2015 None Full Exam - General 1994 Ears/Nose/Throat lips/teeth/gingiva Overall: benign lips 12/10/2015 None Full Exam - General 1994 Ears/Nose/Throat lips/teeth/gingiva Overall: normal dentition 12/10/2015 None Full Exam - General 1994 Ears/Nose/Throat lips/teeth/gingiva Overall: benign gingiva 12/10/2015 None Full Exam - General 1994 Ears/Nose/Throat lips/teeth/gingiva Overall: no masses 12/10/2015 None Full Exam - General 1994 Ears/Nose/Throat oral cavity/pharynx/larynx Overall: oral mucosa clear 12/10/2015 None Full Exam - General 1994 Ears/Nose/Throat oral cavity/pharynx/larynx Overall: oropharyngeal mucosa clear 12/10/2015 None Full Exam - General 1994 Ears/Nose/Throat oral cavity/pharynx/larynx Overall: no masses 12/10/2015 None Full Exam - General 1994 Respiratory auscultation Overall: breath sounds clear bilaterally 12/10/2015 None Full Exam - General 1994 Respiratory respiratory effort/rhythm Overall: no retractions 12/10/2015 None Full Exam - General 1994 Respiratory respiratory effort/rhythm Overall: normal rate 12/10/2015 None Full Exam - General 1994 Cardiovascular extremities Overall: no clubbing 12/10/2015 None Full Exam - General 1994 Cardiovascular extremities Edema present: pitting 12/10/2015 None Full Exam - General 1994 Cardiovascular extremities Edema present: severity 1+ - 4 +: 1-2+ 12/10/2015 None Full Exam - General 1994 Cardiovascular extremities Edema present: bilateral 12/10/2015 None Full Exam - General 1994 Cardiovascular extremities Edema present: to leg 12/10/2015 None Full Exam - General 1994 Cardiovascular extremities Edema present: to knees 12/10/2015 None Full Exam - General 1994 Cardiovascular auscultation of heart Overall: regular rate 12/10/2015 None Full Exam - General 1994 Abdomen abdominal exam Overall: no tenderness 12/10/2015 None Full Exam - General 1994 Abdomen abdominal exam Overall: normal bowel sounds 12/10/2015 None Full Exam - General 1994 Musculoskeletal gait and station Overall: normal gait 12/10/2015 None Full Exam - General 1994 Musculoskeletal gait and station Overall: normal station 12/10/2015 None Full Exam - General 1994 Integument inspection of skin Overall: no rash, lesions 12/10/2015 None Full Exam - General 1994 Psychiatric orientation/consciousness Overall: oriented to person, place and time 12/10/2015 None Full Exam - General 1994 Psychiatric mood and affect Overall: normal mood and affect 12/10/2015 None Full Exam - General 1994 Constitutional general appearance Overall: well developed 11/12/2015 None Full Exam - General 1994 Constitutional general appearance Overall: in no acute distress 11/12/2015 None Full Exam - General 1994 Constitutional general appearance Overall: well nourished 11/12/2015 None Full Exam - General 1994 Eyes conjunctiva /eyelids Overall: conjunctiva clear 11/12/2015 None Full Exam - General 1994 Eyes conjunctiva /eyelids Overall: cornea clear 11/12/2015 None Full Exam - General 1994 Eyes conjunctiva /eyelids Overall: eyelids normal 11/12/2015 None Full Exam - General 1994 Eyes pupils and irises Overall: pupils equal, round, reactive to light and accomodation 11/12/2015 None Full Exam - General 1994 Ears/Nose/Throat otoscopic exam Overall: external auditory canals clear 11/12/2015 None Full Exam - General 1994 Ears/Nose/Throat otoscopic exam Overall: tympanic membranes clear 11/12/2015 None Full Exam - General 1994 Ears/Nose/Throat lips/teeth/gingiva Overall: benign lips 11/12/2015 None Full Exam - General 1994 Ears/Nose/Throat lips/teeth/gingiva Overall: normal dentition 11/12/2015 None Full Exam - General 1994 Ears/Nose/Throat lips/teeth/gingiva Overall: benign gingiva 11/12/2015 None Full Exam - General 1994 Ears/Nose/Throat lips/teeth/gingiva Overall: no masses 11/12/2015 None Full Exam - General 1994 Ears/Nose/Throat oral cavity/pharynx/larynx Overall: oral mucosa clear 11/12/2015 None Full Exam - General 1994 Ears/Nose/Throat oral cavity/pharynx/larynx Overall: oropharyngeal mucosa clear 11/12/2015 None Full Exam - General 1994 Ears/Nose/Throat oral cavity/pharynx/larynx Overall: no masses 11/12/2015 None Full Exam - General 1994 Respiratory auscultation Overall: breath sounds clear bilaterally 11/12/2015 None Full Exam - General 1994 Respiratory respiratory effort/rhythm Overall: no retractions 11/12/2015 None Full Exam - General 1994 Respiratory respiratory effort/rhythm Overall: normal rate 11/12/2015 None Full Exam - General 1994 Cardiovascular extremities Overall: no clubbing 11/12/2015 None Full Exam - General 1994 Cardiovascular extremities Edema present: pitting 11/12/2015 None Full Exam - General 1994 Cardiovascular extremities Edema present: severity 1+ - 4 +: 1+ 11/12/2015 None Full Exam - General 1994 Cardiovascular extremities Edema present: bilateral 11/12/2015 None Full Exam - General 1994 Cardiovascular extremities Edema present: to leg 11/12/2015 None Full Exam - General 1994 Cardiovascular extremities Edema present: to knees 11/12/2015 None Full Exam - General 1994 Cardiovascular auscultation of heart Overall: regular rate 11/12/2015 None Full Exam - General 1994 Abdomen abdominal exam Overall: no tenderness 11/12/2015 None Full Exam - General 1994 Abdomen abdominal exam Overall: normal bowel sounds 11/12/2015 None Full Exam - General 1994 Musculoskeletal gait and station Overall: normal gait 11/12/2015 None Full Exam - General 1994 Musculoskeletal gait and station Overall: normal station 11/12/2015 None Full Exam - General 1994 Integument inspection of skin Overall: no rash, lesions 11/12/2015 None Full Exam - General 1994 Psychiatric orientation/consciousness Overall: oriented to person, place and time 11/12/2015 None Full Exam - General 1994 Psychiatric mood and affect Overall: normal mood and affect 11/12/2015 None Full Exam - General 1994 Constitutional general appearance Overall: well developed 10/08/2015 None Full Exam - General 1994 Constitutional general appearance Overall: in no acute distress 10/08/2015 None Full Exam - General 1994 Constitutional general appearance Overall: well nourished 10/08/2015 None Full Exam - General 1994 Eyes conjunctiva /eyelids Overall: conjunctiva clear 10/08/2015 None Full Exam - General 1994 Eyes conjunctiva /eyelids Overall: cornea clear 10/08/2015 None Full Exam - General 1994 Eyes conjunctiva /eyelids Overall: eyelids normal 10/08/2015 None Full Exam - General 1994 Eyes pupils and irises Overall: pupils equal, round, reactive to light and accomodation 10/08/2015 None Full Exam - General 1994 Ears/Nose/Throat otoscopic exam Overall: external auditory canals clear 10/08/2015 None Full Exam - General 1994 Ears/Nose/Throat otoscopic exam Overall: tympanic membranes clear 10/08/2015 None Full Exam - General 1994 Ears/Nose/Throat lips/teeth/gingiva Overall: benign lips 10/08/2015 None Full Exam - General 1994 Ears/Nose/Throat lips/teeth/gingiva Overall: normal dentition 10/08/2015 None Full Exam - General 1994 Ears/Nose/Throat lips/teeth/gingiva Overall: benign gingiva 10/08/2015 None Full Exam - General 1994 Ears/Nose/Throat lips/teeth/gingiva Overall: no masses 10/08/2015 None Full Exam - General 1994 Ears/Nose/Throat oral cavity/pharynx/larynx Overall: oral mucosa clear 10/08/2015 None Full Exam - General 1994 Ears/Nose/Throat oral cavity/pharynx/larynx Overall: oropharyngeal mucosa clear 10/08/2015 None Full Exam - General 1994 Ears/Nose/Throat oral cavity/pharynx/larynx Overall: no masses 10/08/2015 None Full Exam - General 1994 Respiratory auscultation Overall: breath sounds clear bilaterally 10/08/2015 None Full Exam - General 1994 Respiratory respiratory effort/rhythm Overall: no retractions 10/08/2015 None Full Exam - General 1994 Respiratory respiratory effort/rhythm Overall: normal rate 10/08/2015 None Full Exam - General 1994 Cardiovascular extremities Overall: no clubbing 10/08/2015 None Full Exam - General 1994 Cardiovascular extremities Edema present: pitting 10/08/2015 None Full Exam - General 1994 Cardiovascular extremities Edema present: bilateral 10/08/2015 None Full Exam - General 1994 Cardiovascular extremities Edema present: to leg 10/08/2015 None Full Exam - General 1994 Cardiovascular extremities Edema present: to knees 10/08/2015 None Full Exam - General 1994 Cardiovascular auscultation of heart Overall: regular rate 10/08/2015 None Full Exam - General 1994 Abdomen abdominal exam Overall: no tenderness 10/08/2015 None Full Exam - General 1994 Abdomen abdominal exam Overall: normal bowel sounds 10/08/2015 None Full Exam - General 1994 Musculoskeletal gait and station Overall: normal gait 10/08/2015 None Full Exam - General 1994 Musculoskeletal gait and station Overall: normal station 10/08/2015 None Full Exam - General 1994 Integument inspection of skin Overall: no rash, lesions 10/08/2015 None Full Exam - General 1994 Psychiatric orientation/consciousness Overall: oriented to person, place and time 10/08/2015 None Full Exam - General 1994 Psychiatric mood and affect Overall: normal mood and affect 10/08/2015 None Full Exam - General 1994 Cardiovascular extremities Edema present: severity 1+ - 4 +: 1+ 10/08/2015 None Full Exam - General 1994 Constitutional general appearance Overall: well developed 09/29/2015 None Full Exam - General 1994 Constitutional general appearance Overall: in no acute distress 09/29/2015 None Full Exam - General 1994 Constitutional general appearance Overall: well nourished 09/29/2015 None Full Exam - General 1994 Eyes conjunctiva /eyelids Overall: conjunctiva clear 09/29/2015 None Full Exam - General 1994 Eyes conjunctiva /eyelids Overall: cornea clear 09/29/2015 None Full Exam - General 1994 Eyes conjunctiva /eyelids Overall: eyelids normal 09/29/2015 None Full Exam - General 1994 Eyes pupils and irises Overall: pupils equal, round, reactive to light and accomodation 09/29/2015 None Full Exam - General 1994 Ears/Nose/Throat otoscopic exam Overall: external auditory canals clear 09/29/2015 None Full Exam - General 1994 Ears/Nose/Throat otoscopic exam Overall: tympanic membranes clear 09/29/2015 None Full Exam - General 1994 Ears/Nose/Throat lips/teeth/gingiva Overall: benign lips 09/29/2015 None Full Exam - General 1994 Ears/Nose/Throat lips/teeth/gingiva Overall: normal dentition 09/29/2015 None Full Exam - General 1994 Ears/Nose/Throat lips/teeth/gingiva Overall: benign gingiva 09/29/2015 None Full Exam - General 1994 Ears/Nose/Throat lips/teeth/gingiva Overall: no masses 09/29/2015 None Full Exam - General 1994 Ears/Nose/Throat oral cavity/pharynx/larynx Overall: oral mucosa clear 09/29/2015 None Full Exam - General 1994 Ears/Nose/Throat oral cavity/pharynx/larynx Overall: oropharyngeal mucosa clear 09/29/2015 None Full Exam - General 1994 Ears/Nose/Throat oral cavity/pharynx/larynx Overall: no masses 09/29/2015 None Full Exam - General 1994 Respiratory auscultation Overall: breath sounds clear bilaterally 09/29/2015 None Full Exam - General 1994 Respiratory respiratory effort/rhythm Overall: no retractions 09/29/2015 None Full Exam - General 1994 Respiratory respiratory effort/rhythm Overall: normal rate 09/29/2015 None Full Exam - General 1994 Cardiovascular extremities Overall: no clubbing 09/29/2015 None Full Exam - General 1994 Cardiovascular extremities Edema present: pitting 09/29/2015 None Full Exam - General 1994 Cardiovascular extremities Edema present: severity 1+ - 4 +: 1-2+ 09/29/2015 None Full Exam - General 1994 Cardiovascular extremities Edema present: bilateral 09/29/2015 None Full Exam - General 1994 Cardiovascular extremities Edema present: to leg 09/29/2015 None Full Exam - General 1994 Cardiovascular auscultation of heart Overall: regular rate 09/29/2015 None Full Exam - General 1994 Abdomen abdominal exam Overall: no tenderness 09/29/2015 None Full Exam - General 1994 Abdomen abdominal exam Overall: normal bowel sounds 09/29/2015 None Full Exam - General 1994 Musculoskeletal gait and station Overall: normal gait 09/29/2015 None Full Exam - General 1994 Musculoskeletal gait and station Overall: normal station 09/29/2015 None Full Exam - General 1994 Integument inspection of skin Overall: no rash, lesions 09/29/2015 None Full Exam - General 1994 Psychiatric orientation/consciousness Overall: oriented to person, place and time 09/29/2015 None Full Exam - General 1994 Psychiatric mood and affect Overall: normal mood and affect 09/29/2015 None Full Exam - General 1994 Cardiovascular extremities Edema present: to knees 09/29/2015 None Full Exam - General 1994 Constitutional general appearance Overall: well developed 09/22/2015 None Full Exam - General 1994 Constitutional general appearance Overall: in no acute distress 09/22/2015 None Full Exam - General 1994 Constitutional general appearance Overall: well nourished 09/22/2015 None Full Exam - General 1994 Eyes conjunctiva /eyelids Overall: conjunctiva clear 09/22/2015 None Full Exam - General 1994 Eyes conjunctiva /eyelids Overall: cornea clear 09/22/2015 None Full Exam - General 1994 Eyes conjunctiva /eyelids Overall: eyelids normal 09/22/2015 None Full Exam - General 1994 Eyes pupils and irises Overall: pupils equal, round, reactive to light and accomodation 09/22/2015 None Full Exam - General 1994 Ears/Nose/Throat otoscopic exam Overall: external auditory canals clear 09/22/2015 None Full Exam - General 1994 Ears/Nose/Throat otoscopic exam Overall: tympanic membranes clear 09/22/2015 None Full Exam - General 1994 Ears/Nose/Throat lips/teeth/gingiva Overall: benign lips 09/22/2015 None Full Exam - General 1994 Ears/Nose/Throat lips/teeth/gingiva Overall: normal dentition 09/22/2015 None Full Exam - General 1994 Ears/Nose/Throat lips/teeth/gingiva Overall: benign gingiva 09/22/2015 None Full Exam - General 1994 Ears/Nose/Throat lips/teeth/gingiva Overall: no masses 09/22/2015 None Full Exam - General 1994 Ears/Nose/Throat oral cavity/pharynx/larynx Overall: oral mucosa clear 09/22/2015 None Full Exam - General 1994 Ears/Nose/Throat oral cavity/pharynx/larynx Overall: oropharyngeal mucosa clear 09/22/2015 None Full Exam - General 1994 Ears/Nose/Throat oral cavity/pharynx/larynx Overall: no masses 09/22/2015 None Full Exam - General 1994 Respiratory auscultation Overall: breath sounds clear bilaterally 09/22/2015 None Full Exam - General 1994 Respiratory respiratory effort/rhythm Overall: no retractions 09/22/2015 None Full Exam - General 1994 Respiratory respiratory effort/rhythm Overall: normal rate 09/22/2015 None Full Exam - General 1994 Cardiovascular extremities Overall: no clubbing 09/22/2015 None Full Exam - General 1994 Cardiovascular extremities Edema present: pitting 09/22/2015 None Full Exam - General 1994 Cardiovascular extremities Edema present: bilateral 09/22/2015 None Full Exam - General 1994 Cardiovascular extremities Edema present: to leg 09/22/2015 None Full Exam - General 1994 Cardiovascular auscultation of heart Overall: regular rate 09/22/2015 None Full Exam - General 1994 Abdomen abdominal exam Overall: no tenderness 09/22/2015 None Full Exam - General 1994 Abdomen abdominal exam Overall: normal bowel sounds 09/22/2015 None Full Exam - General 1994 Musculoskeletal gait and station Overall: normal gait 09/22/2015 None Full Exam - General 1994 Musculoskeletal gait and station Overall: normal station 09/22/2015 None Full Exam - General 1994 Integument inspection of skin Overall: no rash, lesions 09/22/2015 None Full Exam - General 1994 Psychiatric orientation/consciousness Overall: oriented to person, place and time 09/22/2015 None Full Exam - General 1994 Psychiatric mood and affect Overall: normal mood and affect 09/22/2015 None Full Exam - General 1994 Cardiovascular extremities Edema present: severity 1+ - 4 +: 3+ 09/22/2015 None Full Exam - General 1994 Cardiovascular extremities Edema present: to thighs 09/22/2015 None Full Exam - General 1994 Constitutional general appearance Overall: well developed 07/21/2015 None Full Exam - General 1994 Constitutional general appearance Overall: in no acute distress 07/21/2015 None Full Exam - General 1994 Constitutional general appearance Overall: well nourished 07/21/2015 None Full Exam - General 1994 Eyes conjunctiva /eyelids Overall: conjunctiva clear 07/21/2015 None Full Exam - General 1994 Eyes conjunctiva /eyelids Overall: cornea clear 07/21/2015 None Full Exam - General 1994 Eyes conjunctiva /eyelids Overall: eyelids normal 07/21/2015 None Full Exam - General 1994 Eyes pupils and irises Overall: pupils equal, round, reactive to light and accomodation 07/21/2015 None Full Exam - General 1994 Ears/Nose/Throat otoscopic exam Overall: external auditory canals clear 07/21/2015 None Full Exam - General 1994 Ears/Nose/Throat otoscopic exam Overall: tympanic membranes clear 07/21/2015 None Full Exam - General 1994 Ears/Nose/Throat lips/teeth/gingiva Overall: benign lips 07/21/2015 None Full Exam - General 1994 Ears/Nose/Throat lips/teeth/gingiva Overall: normal dentition 07/21/2015 None Full Exam - General 1994 Ears/Nose/Throat lips/teeth/gingiva Overall: benign gingiva 07/21/2015 None Full Exam - General 1994 Ears/Nose/Throat lips/teeth/gingiva Overall: no masses 07/21/2015 None Full Exam - General 1994 Ears/Nose/Throat oral cavity/pharynx/larynx Overall: oral mucosa clear 07/21/2015 None Full Exam - General 1994 Ears/Nose/Throat oral cavity/pharynx/larynx Overall: oropharyngeal mucosa clear 07/21/2015 None Full Exam - General 1994 Ears/Nose/Throat oral cavity/pharynx/larynx Overall: no masses 07/21/2015 None Full Exam - General 1994 Respiratory auscultation Overall: breath sounds clear bilaterally 07/21/2015 None Full Exam - General 1994 Respiratory respiratory effort/rhythm Overall: no retractions 07/21/2015 None Full Exam - General 1994 Respiratory respiratory effort/rhythm Overall: normal rate 07/21/2015 None Full Exam - General 1994 Cardiovascular extremities Overall: no clubbing 07/21/2015 None Full Exam - General 1994 Cardiovascular extremities Edema present: pitting 07/21/2015 None Full Exam - General 1994 Cardiovascular extremities Edema present: bilateral 07/21/2015 None Full Exam - General 1994 Cardiovascular extremities Edema present: to leg 07/21/2015 None Full Exam - General 1994 Cardiovascular auscultation of heart Overall: regular rate 07/21/2015 None Full Exam - General 1994 Abdomen abdominal exam Overall: no tenderness 07/21/2015 None Full Exam - General 1994 Abdomen abdominal exam Overall: normal bowel sounds 07/21/2015 None Full Exam - General 1994 Musculoskeletal gait and station Overall: normal gait 07/21/2015 None Full Exam - General 1994 Musculoskeletal gait and station Overall: normal station 07/21/2015 None Full Exam - General 1994 Integument inspection of skin Overall: no rash, lesions 07/21/2015 None Full Exam - General 1994 Psychiatric orientation/consciousness Overall: oriented to person, place and time 07/21/2015 None Full Exam - General 1994 Psychiatric mood and affect Overall: normal mood and affect 07/21/2015 None Full Exam - General 1994 Cardiovascular extremities Edema present: severity 1+ - 4 +: trace 07/21/2015 None Full Exam - General 1994 Constitutional general appearance Overall: well developed 06/23/2015 None Full Exam - General 1994 Constitutional general appearance Overall: in no acute distress 06/23/2015 None Full Exam - General 1994 Constitutional general appearance Overall: well nourished 06/23/2015 None Full Exam - General 1994 Eyes conjunctiva /eyelids Overall: conjunctiva clear 06/23/2015 None Full Exam - General 1994 Eyes conjunctiva /eyelids Overall: cornea clear 06/23/2015 None Full Exam - General 1994 Eyes conjunctiva /eyelids Overall: eyelids normal 06/23/2015 None Full Exam - General 1994 Eyes pupils and irises Overall: pupils equal, round, reactive to light and accomodation 06/23/2015 None Full Exam - General 1994 Ears/Nose/Throat otoscopic exam Overall: external auditory canals clear 06/23/2015 None Full Exam - General 1994 Ears/Nose/Throat otoscopic exam Overall: tympanic membranes clear 06/23/2015 None Full Exam - General 1994 Ears/Nose/Throat lips/teeth/gingiva Overall: benign lips 06/23/2015 None Full Exam - General 1994 Ears/Nose/Throat lips/teeth/gingiva Overall: normal dentition 06/23/2015 None Full Exam - General 1994 Ears/Nose/Throat lips/teeth/gingiva Overall: benign gingiva 06/23/2015 None Full Exam - General 1994 Ears/Nose/Throat lips/teeth/gingiva Overall: no masses 06/23/2015 None Full Exam - General 1994 Ears/Nose/Throat oral cavity/pharynx/larynx Overall: oral mucosa clear 06/23/2015 None Full Exam - General 1994 Ears/Nose/Throat oral cavity/pharynx/larynx Overall: oropharyngeal mucosa clear 06/23/2015 None Full Exam - General 1994 Ears/Nose/Throat oral cavity/pharynx/larynx Overall: no masses 06/23/2015 None Full Exam - General 1994 Respiratory auscultation Overall: breath sounds clear bilaterally 06/23/2015 None Full Exam - General 1994 Respiratory respiratory effort/rhythm Overall: no retractions 06/23/2015 None Full Exam - General 1994 Respiratory respiratory effort/rhythm Overall: normal rate 06/23/2015 None Full Exam - General 1994 Cardiovascular extremities Overall: no clubbing 06/23/2015 None Full Exam - General 1994 Cardiovascular extremities Edema present: pitting 06/23/2015 None Full Exam - General 1994 Cardiovascular extremities Edema present: severity 1+ - 4 +: 2+ 06/23/2015 None Full Exam - General 1994 Cardiovascular extremities Edema present: bilateral 06/23/2015 None Full Exam - General 1994 Cardiovascular extremities Edema present: to leg 06/23/2015 None Full Exam - General 1994 Cardiovascular auscultation of heart Overall: regular rate 06/23/2015 None Full Exam - General 1994 Musculoskeletal gait and station Overall: normal gait 06/23/2015 None Full Exam - General 1994 Musculoskeletal gait and station Overall: normal station 06/23/2015 None Full Exam - General 1994 Integument inspection of skin Overall: no rash, lesions 06/23/2015 None Full Exam - General 1994 Psychiatric orientation/consciousness Overall: oriented to person, place and time 06/23/2015 None Full Exam - General 1994 Psychiatric mood and affect Overall: normal mood and affect 06/23/2015 None Full Exam - General 1994 Abdomen abdominal exam Overall: no tenderness 06/23/2015 None Full Exam - General 1994 Abdomen abdominal exam Overall: normal bowel sounds 06/23/2015 None Full Exam - General 1994 Constitutional general appearance Overall: well developed 06/12/2015 None Full Exam - General 1994 Constitutional general appearance Overall: in no acute distress 06/12/2015 None Full Exam - General 1994 Constitutional general appearance Overall: well nourished 06/12/2015 None Full Exam - General 1994 Eyes conjunctiva /eyelids Overall: conjunctiva clear 06/12/2015 None Full Exam - General 1994 Eyes conjunctiva /eyelids Overall: cornea clear 06/12/2015 None Full Exam - General 1994 Eyes conjunctiva /eyelids Overall: eyelids normal 06/12/2015 None Full Exam - General 1994 Eyes pupils and irises Overall: pupils equal, round, reactive to light and accomodation 06/12/2015 None Full Exam - General 1994 Ears/Nose/Throat otoscopic exam Overall: external auditory canals clear 06/12/2015 None Full Exam - General 1994 Ears/Nose/Throat otoscopic exam Overall: tympanic membranes clear 06/12/2015 None Full Exam - General 1994 Ears/Nose/Throat lips/teeth/gingiva Overall: benign lips 06/12/2015 None Full Exam - General 1994 Ears/Nose/Throat lips/teeth/gingiva Overall: normal dentition 06/12/2015 None Full Exam - General 1994 Ears/Nose/Throat lips/teeth/gingiva Overall: benign gingiva 06/12/2015 None Full Exam - General 1994 Ears/Nose/Throat lips/teeth/gingiva Overall: no masses 06/12/2015 None Full Exam - General 1994 Ears/Nose/Throat oral cavity/pharynx/larynx Overall: oral mucosa clear 06/12/2015 None Full Exam - General 1994 Ears/Nose/Throat oral cavity/pharynx/larynx Overall: oropharyngeal mucosa clear 06/12/2015 None Full Exam - General 1994 Ears/Nose/Throat oral cavity/pharynx/larynx Overall: no masses 06/12/2015 None Full Exam - General 1994 Respiratory auscultation Overall: breath sounds clear bilaterally 06/12/2015 None Full Exam - General 1994 Respiratory respiratory effort/rhythm Overall: no retractions 06/12/2015 None Full Exam - General 1994 Respiratory respiratory effort/rhythm Overall: normal rate 06/12/2015 None Full Exam - General 1994 Cardiovascular extremities Overall: no clubbing 06/12/2015 None Full Exam - General 1994 Cardiovascular extremities Edema present: pitting 06/12/2015 None Full Exam - General 1994 Cardiovascular extremities Edema present: severity 1+ - 4 +: 2+ 06/12/2015 None Full Exam - General 1994 Cardiovascular extremities Edema present: bilateral 06/12/2015 None Full Exam - General 1994 Cardiovascular extremities Edema present: to leg 06/12/2015 None Full Exam - General 1994 Cardiovascular auscultation of heart Overall: regular rate 06/12/2015 None Full Exam - General 1994 Musculoskeletal gait and station Overall: normal gait 06/12/2015 None Full Exam - General 1994 Musculoskeletal gait and station Overall: normal station 06/12/2015 None Full Exam - General 1994 Integument inspection of skin Overall: no rash, lesions 06/12/2015 None Full Exam - General 1994 Psychiatric orientation/consciousness Overall: oriented to person, place and time 06/12/2015 None Full Exam - General 1994 Psychiatric mood and affect Overall: normal mood and affect 06/12/2015 None Full Exam - General 1994 Constitutional general appearance Overall: well nourished 06/02/2015 None Full Exam - General 1994 Constitutional general appearance Overall: well developed 06/02/2015 None Full Exam - General 1994 Constitutional general appearance Overall: in no acute distress 06/02/2015 None Full Exam - General 1994 Eyes pupils and irises Overall: pupils equal, round, reactive to light and accomodation 06/02/2015 None Full Exam - General 1994 Eyes conjunctiva /eyelids Overall: conjunctiva clear 06/02/2015 None Full Exam - General 1994 Eyes conjunctiva /eyelids Overall: eyelids normal 06/02/2015 None Full Exam - General 1994 Eyes conjunctiva /eyelids Overall: cornea clear 06/02/2015 None Full Exam - General 1994 Ears/Nose/Throat oral cavity/pharynx/larynx Overall: oropharyngeal mucosa clear 06/02/2015 None Full Exam - General 1994 Ears/Nose/Throat oral cavity/pharynx/larynx Overall: no masses 06/02/2015 None Full Exam - General 1994 Ears/Nose/Throat oral cavity/pharynx/larynx Overall: oral mucosa clear 06/02/2015 None Full Exam - General 1994 Ears/Nose/Throat lips/teeth/gingiva Overall: benign gingiva 06/02/2015 None Full Exam - General 1994 Ears/Nose/Throat lips/teeth/gingiva Overall: no masses 06/02/2015 None Full Exam - General 1994 Ears/Nose/Throat lips/teeth/gingiva Overall: normal dentition 06/02/2015 None Full Exam - General 1994 Ears/Nose/Throat lips/teeth/gingiva Overall: benign lips 06/02/2015 None Full Exam - General 1994 Ears/Nose/Throat otoscopic exam Overall: tympanic membranes clear 06/02/2015 None Full Exam - General 1994 Ears/Nose/Throat otoscopic exam Overall: external auditory canals clear 06/02/2015 None Full Exam - General 1994 Respiratory auscultation Overall: breath sounds clear bilaterally 06/02/2015 None Full Exam - General 1994 Respiratory respiratory effort/rhythm Overall: normal rate 06/02/2015 None Full Exam - General 1994 Respiratory respiratory effort/rhythm Overall: no retractions 06/02/2015 None Full Exam - General 1994 Cardiovascular extremities Overall: no clubbing 06/02/2015 None Full Exam - General 1994 Cardiovascular extremities Edema present: severity 1+ - 4 +: 2+ 06/02/2015 None Full Exam - General 1994 Cardiovascular extremities Edema present: pitting 06/02/2015 None Full Exam - General 1994 Cardiovascular extremities Edema present: bilateral 06/02/2015 None Full Exam - General 1994 Cardiovascular extremities Edema present: to leg 06/02/2015 None Full Exam - General 1994 Musculoskeletal gait and station Overall: normal station 06/02/2015 None Full Exam - General 1994 Musculoskeletal gait and station Overall: normal gait 06/02/2015 None Full Exam - General 1994 Integument inspection of skin Overall: no rash, lesions 06/02/2015 None Full Exam - General 1994 Psychiatric orientation/consciousness Overall: oriented to person, place and time 06/02/2015 None Full Exam - General 1994 Psychiatric mood and affect Overall: normal mood and affect 06/02/2015 None Full Exam - General 1994 Cardiovascular auscultation of heart Overall: regular rate 06/02/2015 None Full Exam - General 1994 Constitutional general appearance Overall: well developed 03/31/2015 None Full Exam - General 1994 Constitutional general appearance Overall: in no acute distress 03/31/2015 None Full Exam - General 1994 Constitutional general appearance Overall: well nourished 03/31/2015 None Full Exam - General 1994 Eyes conjunctiva /eyelids Overall: conjunctiva clear 03/31/2015 None Full Exam - General 1994 Ears/Nose/Throat otoscopic exam External auditory canal: partial cerumen occlusion 03/31/2015 None Full Exam - General 1994 Ears/Nose/Throat otoscopic exam Tympanic membrane: a normal exam 03/31/2015 None Full Exam - General 1994 Ears/Nose/Throat oral cavity/pharynx/larynx Overall: oral mucosa clear 03/31/2015 None Full Exam - General 1994 Respiratory auscultation Overall: breath sounds clear bilaterally 03/31/2015 None Full Exam - General 1994 Respiratory respiratory effort/rhythm Overall: no retractions 03/31/2015 None Full Exam - General 1994 Respiratory respiratory effort/rhythm Overall: normal rate 03/31/2015 None Full Exam - General 1994 Cardiovascular auscultation of heart Overall: regular rate 03/31/2015 None Full Exam - General 1994 Cardiovascular auscultation of heart Overall: normal heart sounds 03/31/2015 None Full Exam - General 1994 Abdomen abdominal exam Overall: no tenderness 03/31/2015 None Full Exam - General 1994 Abdomen abdominal exam Overall: normal bowel sounds 03/31/2015 None Full Exam - General 1994 Lymphatic neck nodes Overall: anterior cervical chain benign 03/31/2015 None Full Exam - General 1994 Lymphatic neck nodes Overall: posterior cervical chain benign 03/31/2015 None Full Exam - General 1994 Integument inspection of skin Overall: few scattered moles, no gross abnormalities 03/31/2015 None Full Exam - General 1994 Neurologic cranial nerves Overall: crainial nerves 2 - 12 grossly intact 03/31/2015 None Full Exam - General 1994 Psychiatric orientation/consciousness Overall: oriented to person, place and time 03/31/2015 None Full Exam - General 1994 Cardiovascular extremities Overall: no clubbing 03/31/2015 None Full Exam - General 1994 Constitutional general appearance Overall: well developed 01/30/2015 None Full Exam - General 1994 Constitutional general appearance Overall: in no acute distress 01/30/2015 None Full Exam - General 1994 Constitutional general appearance Overall: well nourished 01/30/2015 None Full Exam - General 1994 Eyes conjunctiva /eyelids Overall: conjunctiva clear 01/30/2015 None Full Exam - General 1994 Ears/Nose/Throat otoscopic exam External auditory canal: partial cerumen occlusion 01/30/2015 None Full Exam - General 1994 Ears/Nose/Throat otoscopic exam Tympanic membrane: a normal exam 01/30/2015 None Full Exam - General 1994 Ears/Nose/Throat oral cavity/pharynx/larynx Overall: oral mucosa clear 01/30/2015 None Full Exam - General 1994 Respiratory auscultation Overall: breath sounds clear bilaterally 01/30/2015 None Full Exam - General 1994 Respiratory respiratory effort/rhythm Overall: no retractions 01/30/2015 None Full Exam - General 1994 Respiratory respiratory effort/rhythm Overall: normal rate 01/30/2015 None Full Exam - General 1994 Cardiovascular extremities Edema present: pitting 01/30/2015 None Full Exam - General 1994 Cardiovascular extremities Edema present: severity 1+ - 4 +: 1 01/30/2015 None Full Exam - General 1994 Cardiovascular auscultation of heart Overall: regular rate 01/30/2015 None Full Exam - General 1994 Cardiovascular auscultation of heart Overall: normal heart sounds 01/30/2015 None Full Exam - General 1994 Abdomen abdominal exam Overall: no tenderness 01/30/2015 None Full Exam - General 1994 Abdomen abdominal exam Overall: normal bowel sounds 01/30/2015 None Full Exam - General 1994 Lymphatic neck nodes Overall: anterior cervical chain benign 01/30/2015 None Full Exam - General 1994 Lymphatic neck nodes Overall: posterior cervical chain benign 01/30/2015 None Full Exam - General 1994 Integument inspection of skin Overall: few scattered moles, no gross abnormalities 01/30/2015 None Full Exam - General 1994 Neurologic cranial nerves Overall: crainial nerves 2 - 12 grossly intact 01/30/2015 None Full Exam - General 1994 Psychiatric orientation/consciousness Overall: oriented to person, place and time 01/30/2015 None Full Exam - General 1994 Constitutional general appearance Overall: well developed 12/22/2014 None Full Exam - General 1994 Constitutional general appearance Overall: in no acute distress 12/22/2014 None Full Exam - General 1994 Constitutional general appearance Overall: well nourished 12/22/2014 None Full Exam - General 1994 Eyes conjunctiva /eyelids Overall: conjunctiva clear 12/22/2014 None Full Exam - General 1994 Ears/Nose/Throat otoscopic exam External auditory canal: partial cerumen occlusion 12/22/2014 None Full Exam - General 1994 Ears/Nose/Throat otoscopic exam Tympanic membrane: a normal exam 12/22/2014 None Full Exam - General 1994 Ears/Nose/Throat oral cavity/pharynx/larynx Overall: oral mucosa clear 12/22/2014 None Full Exam - General 1994 Respiratory respiratory effort/rhythm Overall: no retractions 12/22/2014 None Full Exam - General 1994 Respiratory respiratory effort/rhythm Overall: normal rate 12/22/2014 None Full Exam - General 1994 Cardiovascular extremities Edema present: pitting 12/22/2014 None Full Exam - General 1994 Cardiovascular auscultation of heart Overall: regular rate 12/22/2014 None Full Exam - General 1994 Cardiovascular auscultation of heart Overall: normal heart sounds 12/22/2014 None Full Exam - General 1994 Abdomen abdominal exam Overall: no tenderness 12/22/2014 None Full Exam - General 1994 Abdomen abdominal exam Overall: normal bowel sounds 12/22/2014 None Full Exam - General 1994 Lymphatic neck nodes Overall: anterior cervical chain benign 12/22/2014 None Full Exam - General 1994 Lymphatic neck nodes Overall: posterior cervical chain benign 12/22/2014 None Full Exam - General 1994 Integument inspection of skin Overall: few scattered moles, no gross abnormalities 12/22/2014 None Full Exam - General 1994 Neurologic cranial nerves Overall: crainial nerves 2 - 12 grossly intact 12/22/2014 None Full Exam - General 1994 Psychiatric orientation/consciousness Overall: oriented to person, place and time 12/22/2014 None Full Exam - General 1994 Respiratory auscultation Overall: breath sounds clear bilaterally 12/22/2014 None Full Exam - General 1994 Cardiovascular extremities Edema present: severity 1+ - 4 +: 1 12/22/2014 None Full Exam - General 1994 Constitutional general appearance Overall: well developed 10/29/2014 None Full Exam - General 1994 Constitutional general appearance Overall: in no acute distress 10/29/2014 None Full Exam - General 1994 Constitutional general appearance Overall: well nourished 10/29/2014 None Full Exam - General 1994 Eyes conjunctiva /eyelids Overall: conjunctiva clear 10/29/2014 None Full Exam - General 1994 Ears/Nose/Throat otoscopic exam External auditory canal: partial cerumen occlusion 10/29/2014 None Full Exam - General 1994 Ears/Nose/Throat otoscopic exam Tympanic membrane: a normal exam 10/29/2014 None Full Exam - General 1994 Ears/Nose/Throat oral cavity/pharynx/larynx Overall: oral mucosa clear 10/29/2014 None Full Exam - General 1994 Respiratory auscultation Lower lung field: crackles 10/29/2014 None Full Exam - General 1994 Respiratory auscultation Lower lung field: rhonchi 10/29/2014 None Full Exam - General 1994 Respiratory respiratory effort/rhythm Overall: no retractions 10/29/2014 None Full Exam - General 1994 Respiratory respiratory effort/rhythm Overall: normal rate 10/29/2014 None Full Exam - General 1994 Cardiovascular extremities Edema present: pitting 10/29/2014 None Full Exam - General 1994 Cardiovascular extremities Edema present: severity 1+ - 4 +: trace 10/29/2014 None Full Exam - General 1994 Cardiovascular auscultation of heart Overall: regular rate 10/29/2014 None Full Exam - General 1994 Cardiovascular auscultation of heart Overall: normal heart sounds 10/29/2014 None Full Exam - General 1994 Abdomen abdominal exam Overall: no tenderness 10/29/2014 None Full Exam - General 1994 Abdomen abdominal exam Overall: normal bowel sounds 10/29/2014 None Full Exam - General 1994 Lymphatic neck nodes Overall: anterior cervical chain benign 10/29/2014 None Full Exam - General 1994 Lymphatic neck nodes Overall: posterior cervical chain benign 10/29/2014 None Full Exam - General 1994 Integument inspection of skin Overall: few scattered moles, no gross abnormalities 10/29/2014 None Full Exam - General 1994 Neurologic cranial nerves Overall: crainial nerves 2 - 12 grossly intact 10/29/2014 None Full Exam - General 1994 Psychiatric orientation/consciousness Overall: oriented to person, place and time 10/29/2014 None Full Exam - General 1994 Constitutional general appearance Overall: well developed 10/14/2014 None Full Exam - General 1994 Constitutional general appearance Overall: in no acute distress 10/14/2014 None Full Exam - General 1994 Constitutional general appearance Overall: well nourished 10/14/2014 None Full Exam - General 1994 Eyes conjunctiva /eyelids Overall: conjunctiva clear 10/14/2014 None Full Exam - General 1994 Ears/Nose/Throat otoscopic exam External auditory canal: partial cerumen occlusion 10/14/2014 None Full Exam - General 1994 Ears/Nose/Throat otoscopic exam Tympanic membrane: a normal exam 10/14/2014 None Full Exam - General 1994 Ears/Nose/Throat oral cavity/pharynx/larynx Overall: oral mucosa clear 10/14/2014 None Full Exam - General 1994 Respiratory respiratory effort/rhythm Overall: no retractions 10/14/2014 None Full Exam - General 1994 Respiratory respiratory effort/rhythm Overall: normal rate 10/14/2014 None Full Exam - General 1994 Cardiovascular extremities Edema present: pitting 10/14/2014 None Full Exam - General 1994 Cardiovascular extremities Edema present: severity 1+ - 4 +: trace 10/14/2014 None Full Exam - General 1994 Cardiovascular auscultation of heart Overall: regular rate 10/14/2014 None Full Exam - General 1994 Cardiovascular auscultation of heart Overall: normal heart sounds 10/14/2014 None Full Exam - General 1994 Abdomen abdominal exam Overall: no tenderness 10/14/2014 None Full Exam - General 1994 Abdomen abdominal exam Overall: normal bowel sounds 10/14/2014 None Full Exam - General 1994 Lymphatic neck nodes Overall: anterior cervical chain benign 10/14/2014 None Full Exam - General 1994 Lymphatic neck nodes Overall: posterior cervical chain benign 10/14/2014 None Full Exam - General 1994 Integument inspection of skin Overall: few scattered moles, no gross abnormalities 10/14/2014 None Full Exam - General 1994 Neurologic cranial nerves Overall: crainial nerves 2 - 12 grossly intact 10/14/2014 None Full Exam - General 1994 Psychiatric orientation/consciousness Overall: oriented to person, place and time 10/14/2014 None Full Exam - General 1994 Respiratory auscultation Lower lung field: crackles 10/14/2014 None Full Exam - General 1994 Respiratory auscultation Lower lung field: rhonchi 10/14/2014 None Full Exam - General 1994 Constitutional general appearance Overall: well developed 09/19/2014 None Full Exam - General 1994 Constitutional general appearance Overall: in no acute distress 09/19/2014 None Full Exam - General 1994 Constitutional general appearance Overall: well nourished 09/19/2014 None Full Exam - General 1994 Eyes conjunctiva /eyelids Overall: conjunctiva clear 09/19/2014 None Full Exam - General 1994 Respiratory auscultation Overall: breath sounds clear bilaterally 09/19/2014 None Full Exam - General 1994 Respiratory respiratory effort/rhythm Overall: no retractions 09/19/2014 None Full Exam - General 1994 Respiratory respiratory effort/rhythm Overall: normal rate 09/19/2014 None Full Exam - General 1994 Cardiovascular auscultation of heart Overall: regular rate 09/19/2014 None Full Exam - General 1994 Cardiovascular auscultation of heart Overall: normal heart sounds 09/19/2014 None Full Exam - General 1994 Abdomen abdominal exam Overall: no tenderness 09/19/2014 None Full Exam - General 1994 Abdomen abdominal exam Overall: normal bowel sounds 09/19/2014 None Full Exam - General 1994 Integument inspection of skin Overall: few scattered moles, no gross abnormalities 09/19/2014 None Full Exam - General 1994 Neurologic cranial nerves Overall: crainial nerves 2 - 12 grossly intact 09/19/2014 None Full Exam - General 1994 Psychiatric orientation/consciousness Overall: oriented to person, place and time 09/19/2014 None Full Exam - General 1994 Cardiovascular extremities Edema present: pitting 09/19/2014 None Full Exam - General 1994 Cardiovascular extremities Edema present: severity 1+ - 4 +: trace 09/19/2014 None Full Exam - General 1994 Ears/Nose/Throat otoscopic exam External auditory canal: partial cerumen occlusion 09/19/2014 None Full Exam - General 1994 Ears/Nose/Throat otoscopic exam Tympanic membrane: a normal exam 09/19/2014 None Full Exam - General 1994 Ears/Nose/Throat oral cavity/pharynx/larynx Overall: oral mucosa clear 09/19/2014 None Full Exam - General 1994 Lymphatic neck nodes Overall: anterior cervical chain benign 09/19/2014 None Full Exam - General 1994 Lymphatic neck nodes Overall: posterior cervical chain benign 09/19/2014 None Full Exam - General 1994 Constitutional general appearance Overall: well developed 08/22/2014 None Full Exam - General 1994 Constitutional general appearance Overall: in no acute distress 08/22/2014 None Full Exam - General 1994 Constitutional general appearance Overall: well nourished 08/22/2014 None Full Exam - General 1994 Psychiatric orientation/consciousness Overall: oriented to person, place and time 08/22/2014 None Full Exam - General 1994 Neurologic cranial nerves Overall: crainial nerves 2 - 12 grossly intact 08/22/2014 None Full Exam - General 1994 Integument inspection of skin Overall: few scattered moles, no gross abnormalities 08/22/2014 None Full Exam - General 1994 Abdomen abdominal exam Overall: no tenderness 08/22/2014 None Full Exam - General 1994 Abdomen abdominal exam Overall: normal bowel sounds 08/22/2014 None Full Exam - General 1994 Cardiovascular auscultation of heart Overall: regular rate 08/22/2014 None Full Exam - General 1994 Cardiovascular auscultation of heart Overall: normal heart sounds 08/22/2014 None Full Exam - General 1994 Cardiovascular extremities Edema present: pitting 08/22/2014 None Full Exam - General 1994 Cardiovascular extremities Edema present: severity 1+ - 4 +: trace-1+ 08/22/2014 None Full Exam - General 1994 Respiratory respiratory effort/rhythm Overall: normal rate 08/22/2014 None Full Exam - General 1994 Respiratory respiratory effort/rhythm Overall: no retractions 08/22/2014 None Full Exam - General 1994 Respiratory auscultation Overall: breath sounds clear bilaterally 08/22/2014 None Full Exam - General 1994 Eyes conjunctiva /eyelids Overall: conjunctiva clear 08/22/2014 None Full Exam - Dermatology Abdomen liver and spleen exam Overall: normal active bowel sounds 08/04/2014 None Full Exam - Dermatology Abdomen liver and spleen exam Overall: soft 08/04/2014 None Full Exam - Dermatology Extremities inspection & palpation billateral lower extremities no clubbing or cyanosis 08/04/2014 None Full Exam - Dermatology Integument insp & palp - right upper extremity Location: on the forearm 08/04/2014 None Full Exam - Dermatology Integument insp & palp - right upper extremity Color: red 08/04/2014 None Full Exam - Dermatology Integument insp & palp - right upper extremity Number: three 08/04/2014 3 small round bruised areas on right arm. Improved in appearance. Pt states they no longer itch Full Exam - Dermatology Musculoskeletal gait and station Overall: normal gait 08/04/2014 using a walker Full Exam - Dermatology Musculoskeletal gait and station Overall: normal station 08/04/2014 None Full Exam - Dermatology Psychiatric orientation Overall: oriented to person, place and time 08/04/2014 None Full Exam - Dermatology Psychiatric mood and affect Mood: depressed 08/04/2014 pt states that yesterday was her wedding anniversary and was the first anniverary she has had since her 's . She states that it was a hard day. Full Exam - Dermatology Cardiovascular peripheral vascular system Overall: S1S2 08/04/2014 None Full Exam - Dermatology Ears/Nose/Throat lips/teeth/gingiva Overall: benign lips 08/04/2014 None Full Exam - Dermatology Ears/Nose/Throat lips/teeth/gingiva Overall: normal dentition 08/04/2014 None Full Exam - Dermatology Constitutional general appearance Overall: well nourished 08/04/2014 None Full Exam - Dermatology Constitutional general appearance Overall: well developed 08/04/2014 None Full Exam - Dermatology Constitutional general appearance Overall: in no acute distress 08/04/2014 None Full Exam - Dermatology Psychiatric orientation Overall: oriented to person, place and time 07/24/2014 None Full Exam - Dermatology Integument insp & palp - right upper extremity Location: on the forearm 07/24/2014 None Full Exam - Dermatology Integument insp & palp - right upper extremity Shape: round 07/24/2014 None Full Exam - Dermatology Integument insp & palp - right upper extremity Number: three 07/24/2014 3 small round bruised areas on right arm. Pt states that they itch. Full Exam - Dermatology Integument insp & palp - right upper extremity Color: red 07/24/2014 None Full Exam - Dermatology Extremities inspection & palpation billateral lower extremities no clubbing or cyanosis 07/24/2014 None Full Exam - Dermatology Musculoskeletal head and neck Overall: head atraumatic 07/24/2014 None Full Exam - Dermatology Musculoskeletal head and neck Overall: cervical spine benign 07/24/2014 None Full Exam - Dermatology Lymphatic palpation Overall: benign anterior cervical chain 07/24/2014 None Full Exam - Dermatology Lymphatic palpation Overall: benign posterior cervical chain 07/24/2014 None Full Exam - Dermatology Abdomen liver and spleen exam Overall: normal active bowel sounds 07/24/2014 None Full Exam - Dermatology Abdomen liver and spleen exam Overall: soft 07/24/2014 None Full Exam - Dermatology Cardiovascular peripheral vascular system Overall: warm extremities 07/24/2014 auscultation of heart sounds irregular Full Exam - Dermatology Cardiovascular peripheral vascular system Overall: no edema 07/24/2014 None Full Exam - Dermatology Cardiovascular peripheral vascular system Overall: no tenderness 07/24/2014 None Full Exam - Dermatology Respiratory auscultation Overall: breath sounds clear bilaterally 07/24/2014 None Full Exam - Dermatology Ears/Nose/Throat lips/teeth/gingiva Overall: benign lips 07/24/2014 None Full Exam - Dermatology Constitutional general appearance Overall: well nourished 07/24/2014 None Full Exam - Dermatology Constitutional general appearance Overall: well developed 07/24/2014 None Full Exam - Dermatology Constitutional general appearance Overall: in no acute distress 07/24/2014 None Full Exam - Dermatology Ears/Nose/Throat oropharynx Overall: clear oral mucosa 07/24/2014 None Full Exam - General 1994 Constitutional general appearance Development: appears stated age 0507/15/2014 None Full Exam - General 1994 Constitutional general appearance Development: well developed 07/15/2014 None Full Exam - General 1994 Constitutional general appearance Hygiene/Attention to Grooming: good hygiene 07/15/2014 None Full Exam - General 1994 Eyes conjunctiva /eyelids Overall: conjunctiva clear 07/15/2014 None Full Exam - General 1994 Eyes conjunctiva /eyelids Overall: cornea clear 07/15/2014 None Full Exam - General 1994 Eyes conjunctiva /eyelids Overall: eyelids normal 07/15/2014 None Full Exam - General 1994 Eyes pupils and irises Overall: pupils equal, round, reactive to light and accomodation 07/15/2014 None Full Exam - General 1994 Ears/Nose/Throat otoscopic exam Overall: external auditory canals clear 07/15/2014 None Full Exam - General 1994 Ears/Nose/Throat otoscopic exam Overall: tympanic membranes clear 07/15/2014 None Full Exam - General 1994 Ears/Nose/Throat lips/teeth/gingiva Overall: benign lips 07/15/2014 None Full Exam - General 1994 Ears/Nose/Throat lips/teeth/gingiva Overall: normal dentition 07/15/2014 None Full Exam - General 1994 Ears/Nose/Throat oral cavity/pharynx/larynx Overall: hypopharynx benign 07/15/2014 None Full Exam - General 1994 Ears/Nose/Throat oral cavity/pharynx/larynx Overall: no masses 07/15/2014 None Full Exam - General 1994 Ears/Nose/Throat oral cavity/pharynx/larynx Overall: oral mucosa clear 07/15/2014 None Full Exam - General 1994 Ears/Nose/Throat oral cavity/pharynx/larynx Overall: oropharyngeal mucosa clear 07/15/2014 None Full Exam - General 1994 Respiratory auscultation Overall: breath sounds clear bilaterally 07/15/2014 None Full Exam - General 1994 Respiratory respiratory effort/rhythm Overall: no retractions 07/15/2014 None Full Exam - General 1994 Respiratory respiratory effort/rhythm Overall: normal rate 07/15/2014 None Full Exam - General 1994 Cardiovascular extremities Overall: no clubbing 07/15/2014 None Full Exam - General 1994 Cardiovascular auscultation of heart Overall: normal heart sounds 07/15/2014 None Full Exam - General 1994 Cardiovascular auscultation of heart Overall: regular rate 07/15/2014 None Full Exam - General 1994 Abdomen abdominal exam Overall: no tenderness 07/15/2014 None Full Exam - General 1994 Abdomen abdominal exam Overall: normal bowel sounds 07/15/2014 None Full Exam - General 1994 Integument inspection of skin Overall: few scattered moles, no gross abnormalities 07/15/2014 None Full Exam - General 1994 Neurologic deep tendon reflexes Overall: deep tendon reflexes intact 07/15/2014 None Full Exam - General 1994 Neurologic cranial nerves Overall: crainial nerves 2 - 12 grossly intact 07/15/2014 None Full Exam - General 1994 Psychiatric orientation/consciousness Overall: oriented to person, place and time 07/15/2014 None Full Exam - General 1994 Psychiatric mood and affect Mood: depressed 07/15/2014 None Full Exam - General 1994 Psychiatric mood and affect Affect: mood congruent 07/15/2014 None Full Exam - General 1994 Lymphatic neck nodes Overall: anterior cervical chain benign 07/15/2014 None Full Exam - General 1994 Lymphatic neck nodes Overall: posterior cervical chain benign 07/15/2014 None Full Exam - General 1994 Neck thyroid Size: enlarged gland None Procedures Procedure Codes Date ADMIN INFLUENZA VIRUS VAC CPT-4: G0008 12/10/2015 FLU VACC 4 JEAN CARLOS 3 YRS PLUS IM Formatting Model/CDA Sections, Assigned to/Indira Ibanez SNKIESHA CT: [id number] CPT-4: [id number] 12/10/2015 TRIAMCINOLONE ACET INJ NOS CPT-4: J3301 01/30/2015 URINALYSIS NONAUTO W/O SCOPE CPT-4: 06699 11/07/2014 ROCEPHIN, PER 250 MG CPT-4: J0696 10/14/2014 TRIAMCINOLONE ACET INJ NOS CPT-4: J3301 10/14/2014 Vital Signs Date Vital 03/07/2017 Blood Pressure 1: 108/52 Code : 8480-6 BMI: 27.6 Code : 26429-1 Heart Rate 1 : 72 bpm Height: 5'2" SpO2: 96% Weight: 151 lbs 01/24/2017 Blood Pressure 1: 126/60 Code : 8480-6 BMI: 27.1 Code : 60181-6 Heart Rate 1 : 60 bpm Height: 5'2" SpO2: 98% Weight: 148 lbs 09/29/2016 Blood Pressure 1: 110/64 Code : 8480-6 Heart Rate 1: 64 bpm Height: SpO2: 96% Weight: 09/13/2016 Blood Pressure 1: 120/50 Code : 8480-6 Heart Rate 1: 84 bpm Respiratory Rate : bpm SpO2: 97% Weight: 146 lbs 05/31/2016 Blood Pressure 1: 132/64 Code : 8480-6 BMI: 26.8 Code : 31334-8 Heart Rate 1 : 59 bpm Height: 5'2" SpO2: 97% Weight: 146 lbs 8 oz 05/10/2016 Blood Pressure 1: 120/56 Code : 8480-6 BMI: 27.1 Code : 32304-6 Heart Rate 1 : 63 bpm Height: 5'2" SpO2: 97% Weight: 148 lbs 04/25/2016 Blood Pressure 1: 134/66 Code : 8480-6 BMI: 24.9 Code : 43613-5 Heart Rate 1 : 118 bpm Height: 5'2" SpO2: 93% Temperature: 36.8 (C) / 98.3 (F) Weight: 136 lbs 01/14/2016 Blood Pressure 1: 132/78 Code : 8480-6 BMI: 25.6 Code : 79503-9 Heart Rate 1 : 97 bpm Height: 5'2" SpO2: 95% Weight: 140 lbs 12/10/2015 Blood Pressure 1: 118/72 Code : 8480-6 BMI: 26.2 Code : 83126-6 Heart Rate 1 : 68 bpm Height: 5'2" SpO2: 95% Weight: 143 lbs 11/12/2015 Blood Pressure 1: 140/80 Code : 8480-6 BMI: 25.6 Code : 45580-5 Heart Rate 1 : 77 bpm Height: 5'2" SpO2: 93% Weight: 140 lbs 10/08/2015 Blood Pressure 1: 132/60 Code : 8480-6 BMI: 26.2 Code : 65884-6 Heart Rate 1 : 77 bpm Height: 5'2" SpO2: 96% Weight: 143 lbs 09/29/2015 Blood Pressure 1: 130/62 Code : 8480-6 BMI: 27.1 Code : 09517-6 Heart Rate 1 : 86 bpm Height: 5'2" SpO2: 93% Weight: 148 lbs 09/22/2015 Blood Pressure 1: 164/72 Code : 8480-6 BMI: 28.2 Code : 35775-7 Heart Rate 1 : 79 bpm Height: 5'2" SpO2: 92% Weight: 154 lbs 07/21/2015 Blood Pressure 1: 124/70 Code : 8480-6 BMI: 24.5 Code : 18144-1 Heart Rate 1 : 71 bpm Height: 5'2" SpO2: 98% Weight: 134 lbs 06/23/2015 Blood Pressure 1: 122/68 Code : 8480-6 BMI: 25.4 Code : 66685-6 Heart Rate 1 : 78 bpm Height: 5'2" SpO2: 92% Weight: 139 lbs 06/12/2015 Blood Pressure 1: 154/62 Code : 8480-6 BMI: 27.4 Code : 95792-3 Heart Rate 1 : 87 bpm Height: 5'2" SpO2: 94% Weight: 150 lbs 06/02/2015 Blood Pressure 1: 140/68 Code : 8480-6 Heart Rate 1: 90 bpm SpO2: 91% Weight: 142 lbs 03/31/2015 Blood Pressure 1: 120/56 Code : 8480-6 BMI: 23.6 Code : 60361-9 Heart Rate 1 : 82 bpm Height: 5'2" SpO2: 98% Weight: 129 lbs 01/30/2015 Blood Pressure 1: 108/62 Code : 8480-6 BMI: 22.1 Code : 42536-7 Heart Rate 1 : 8299 bpm Height: 5'2 " SpO2: 99% Weight: 121 lbs 12/22/2014 Blood Pressure 1: 130/70 Code : 8480-6 BMI: 21.8 Code : 25361-9 Heart Rate 1 : 106 bpm Height: 5'2" SpO2: 98% Weight: 119 lbs 10/29/2014 Blood Pressure 1: 118/58 Code : 8480-6 BMI: 23.2 Code : 92062-7 Heart Rate 1 : 74 bpm Height: 5'2" SpO2: 93% Weight: 127 lbs 10/14/2014 Blood Pressure 1: 128/64 Code : 8480-6 BMI: 22.9 Code : 59793-8 Heart Rate 1 : 79 bpm Height: 5'2" SpO2: 93% Temperature: 35.9 (C) / 96.6 (F) Weight: 125 lbs 09/19/2014 Blood Pressure 1: 132/72 Code : 8480-6 BMI: 22.9 Code : 98494-7 Heart Rate 1 : 84 bpm Height: 5'2" SpO2: 96% Weight: 125 lbs 08/22/2014 Blood Pressure 1: 124/72 Code : 8480-6 BMI: 23.0 Code : 58019-8 Heart Rate 1 : 64 bpm Height: 5'2" Weight: 126 lbs 08/04/2014 Blood Pressure 1: 126/86 Code : 8480-6 BMI: 23.6 Code : 45543-9 Height: 5'2" Respiratory Rate: 20 bpm Weight: 129 lbs 07/24/2014 Blood Pressure 1: 116/72 Code : 8480-6 BMI: 23.6 Code : 69065-9 Heart Rate 1 : 74 bpm Height: 5'2" Weight: 129 lbs 07/15/2014 Blood Pressure 1: 132/78 Code : 8480-6 BMI: 24.1 Code : 50071-2 Heart Rate 1 : 74 bpm Height: 5'2" SpO2: 97% Weight: 132 lbs Functional Status No Functional Status data History of Present Illness Symptom Name Status Result Effective Date Notes hypertension Quality primary hypertension 03/07/2017 None hypertension Quality stable 03/07/2017 None hypertension Onset and Resolution ongoing 03/07/2017 None hypertension Onset of Symptom during adulthood 03/07/2017 None hypertension Blood Pressure Values patient checking blood pressure at home - did not bring in readings 03/07/2017 -Checks occasionally hypertension Severity not consistently severe symptoms, the symptoms fluctuate from no symptoms to anxiety and headaches 03/07/2017 None hypertension Frequency of Episodes unchanged 03/07/2017 None hypertension Alleviating Factors medication 03/07/2017 None hypertension Pertinent Findings anxiety 03/07/2017 None hypertension Pertinent Findings dizziness 03/07/2017 "at times" hypertension Pertinent Findings dyspnea 03/07/2017 None hypertension Pertinent Findings edema 03/07/2017 -wears bilateral compression hose arrhythmia Quality irregular beats 03/07/2017 (atrial fibrillation) arrhythmia Onset and Resolution ongoing 03/07/2017 None arrhythmia Alleviating Factors medication 03/07/2017 None hypertension Quality primary hypertension 01/24/2017 None hypertension Onset and Resolution ongoing 01/24/2017 None hypertension Onset of Symptom during adulthood 01/24/2017 None arrhythmia Quality irregular beats 01/24/2017 (atrial fibrillation) arrhythmia Onset and Resolution ongoing 01/24/2017 None arrhythmia Alleviating Factors medication 01/24/2017 None hypertension Blood Pressure Values patient checking blood pressure at home - did not bring in readings 01/24/2017 -Checks occasionally hypertension Alleviating Factors medication 01/24/2017 None hypertension Pertinent Findings dizziness 01/24/2017 "at times" hypertension Pertinent Findings dyspnea 01/24/2017 None hypertension Pertinent Findings edema 01/24/2017 -wears bilateral compression hose hypertension Pertinent Findings anxiety 01/24/2017 None hypertension Quality stable 01/24/2017 None hypertension Severity not consistently severe symptoms, the symptoms fluctuate from no symptoms to anxiety and headaches 01/24/2017 None hypertension Frequency of Episodes unchanged 01/24/2017 None chest pain/pressure Location on the left side of on the chest 09/29/2016 None chest pain/pressure Radiating the left shoulder 09/29/2016 None chest pain/pressure Quality aching 09/29/2016 None chest pain/pressure Onset and Resolution sudden in onset 09/29/2016 None chest pain/pressure Onset of Symptom 1 weeks ago 09/29/2016 None chest pain/pressure Pertinent Findings palpitations 09/29/2016 None chest pain/pressure Pertinent Findings weakness 09/29/2016 None edema Onset and Resolution ongoing 09/13/2016 None edema Onset of Symptom _ months ago 09/13/2016 None edema Limitation on Activities does not limit activities 09/13/2016 None edema Frequency of Episodes unchanged 09/13/2016 None edema Significant Past Medical History cardiac disease 09/13/2016 None edema Significant Past Medical History renal disease 09/13/2016 None edema Significant Medications diuretics 09/13/2016 None edema Triggers no known associated factors 09/13/2016 None edema Alleviating Factors medication 09/13/2016 None edema Pertinent Findings dyspnea 09/13/2016 None edema Pertinent Findings dyspnea on exertion 09/13/2016 None edema Onset and Resolution ongoing 05/31/2016 None edema Onset of Symptom _ months ago 05/31/2016 None edema Limitation on Activities does not limit activities 05/31/2016 None edema Frequency of Episodes unchanged 05/31/2016 None edema Significant Past Medical History cardiac disease 05/31/2016 None edema Significant Past Medical History renal disease 05/31/2016 None edema Significant Medications diuretics 05/31/2016 None edema Triggers no known associated factors 05/31/2016 None edema Alleviating Factors medication 05/31/2016 None edema Pertinent Findings dyspnea 05/31/2016 None edema Pertinent Findings dyspnea on exertion 05/31/2016 None edema Pertinent Findings Denies limb pain / tenderness 05/31/2016 None edema Pertinent Findings Denies limb redness 05/31/2016 None edema Pertinent Findings Denies nausea 05/31/2016 None edema Location on the left leg 05/31/2016 None edema Location on the right leg 05/31/2016 None edema Quality chronic 05/31/2016 None hypertension Quality intermittent 05/31/2016 None hypertension Onset and Resolution ongoing 05/31/2016 None hypertension Blood Pressure Values pt checking blood pressure - see scanned document 05/31/2016 None hypertension Pertinent Findings anxiety 05/31/2016 None hypertension Pertinent Findings Denies confusion 05/31/2016 None hypertension Pertinent Findings Denies dizziness 05/31/2016 None hypertension Pertinent Findings dyspnea 05/31/2016 None hypertension Pertinent Findings edema 05/31/2016 None hypertension Pertinent Findings lethargy 05/31/2016 None hypertension Pertinent Findings muscle weakness 05/31/2016 None edema Onset and Resolution ongoing 05/10/2016 None edema Onset of Symptom _ months ago 05/10/2016 None edema Limitation on Activities does not limit activities 05/10/2016 None edema Frequency of Episodes unchanged 05/10/2016 None edema Significant Past Medical History cardiac disease 05/10/2016 None edema Significant Past Medical History renal disease 05/10/2016 None edema Significant Medications diuretics 05/10/2016 None edema Triggers no known associated factors 05/10/2016 None edema Alleviating Factors medication 05/10/2016 None edema Pertinent Findings dyspnea 05/10/2016 None edema Pertinent Findings dyspnea on exertion 05/10/2016 None edema Pertinent Findings Denies limb pain / tenderness 05/10/2016 None edema Pertinent Findings Denies limb redness 05/10/2016 None edema Pertinent Findings Denies nausea 05/10/2016 None edema Location on the left leg 05/10/2016 None edema Location on the right leg 05/10/2016 None edema Quality chronic 05/10/2016 None hypertension Quality intermittent 05/10/2016 None hypertension Onset and Resolution ongoing 05/10/2016 None hypertension Blood Pressure Values pt checking blood pressure - see scanned document 05/10/2016 None hypertension Pertinent Findings anxiety 05/10/2016 None hypertension Pertinent Findings Denies confusion 05/10/2016 None hypertension Pertinent Findings Denies dizziness 05/10/2016 None hypertension Pertinent Findings dyspnea 05/10/2016 None hypertension Pertinent Findings edema 05/10/2016 None hypertension Pertinent Findings lethargy 05/10/2016 None hypertension Pertinent Findings muscle weakness 05/10/2016 None edema Onset and Resolution ongoing 04/25/2016 None edema Onset of Symptom _ months ago 04/25/2016 None edema Limitation on Activities does not limit activities 04/25/2016 None edema Frequency of Episodes unchanged 04/25/2016 None edema Significant Past Medical History cardiac disease 04/25/2016 None edema Significant Past Medical History renal disease 04/25/2016 None edema Significant Medications diuretics 04/25/2016 None edema Triggers no known associated factors 04/25/2016 None edema Alleviating Factors medication 04/25/2016 None edema Pertinent Findings Denies limb pain / tenderness 04/25/2016 None edema Pertinent Findings Denies limb redness 04/25/2016 None edema Pertinent Findings Denies nausea 04/25/2016 None edema Location on the left leg 04/25/2016 None edema Location on the right leg 04/25/2016 None edema Quality chronic 04/25/2016 None hypertension Quality intermittent 04/25/2016 None hypertension Onset and Resolution ongoing 04/25/2016 None hypertension Blood Pressure Values pt checking blood pressure - see scanned document 04/25/2016 None hypertension Pertinent Findings anxiety 04/25/2016 None hypertension Pertinent Findings Denies confusion 04/25/2016 None hypertension Pertinent Findings Denies dizziness 04/25/2016 None hypertension Pertinent Findings edema 04/25/2016 None edema Pertinent Findings dyspnea 04/25/2016 None edema Pertinent Findings dyspnea on exertion 04/25/2016 None hypertension Pertinent Findings dyspnea 04/25/2016 None hypertension Pertinent Findings lethargy 04/25/2016 None hypertension Pertinent Findings muscle weakness 04/25/2016 None edema Onset and Resolution ongoing 01/14/2016 None edema Onset of Symptom _ months ago 01/14/2016 None edema Limitation on Activities does not limit activities 01/14/2016 None edema Frequency of Episodes unchanged 01/14/2016 None edema Significant Past Medical History cardiac disease 01/14/2016 None edema Significant Past Medical History renal disease 01/14/2016 None edema Significant Medications diuretics 01/14/2016 None edema Triggers no known associated factors 01/14/2016 None edema Alleviating Factors medication 01/14/2016 None edema Pertinent Findings Denies limb pain / tenderness 01/14/2016 None edema Pertinent Findings Denies limb redness 01/14/2016 None edema Pertinent Findings Denies nausea 01/14/2016 None edema Location on the left leg 01/14/2016 None edema Location on the right leg 01/14/2016 None edema Quality chronic 01/14/2016 None hypertension Quality intermittent 01/14/2016 None hypertension Onset and Resolution ongoing 01/14/2016 None hypertension Blood Pressure Values pt checking blood pressure - see scanned document 01/14/2016 None hypertension Pertinent Findings anxiety 01/14/2016 None hypertension Pertinent Findings Denies confusion 01/14/2016 None hypertension Pertinent Findings Denies dizziness 01/14/2016 None hypertension Pertinent Findings edema 01/14/2016 None edema Onset and Resolution ongoing 12/10/2015 None edema Onset of Symptom _ months ago 12/10/2015 None edema Limitation on Activities does not limit activities 12/10/2015 None edema Frequency of Episodes unchanged 12/10/2015 None edema Significant Past Medical History cardiac disease 12/10/2015 None edema Significant Past Medical History renal disease 12/10/2015 None edema Significant Medications diuretics 12/10/2015 None edema Triggers no known associated factors 12/10/2015 None edema Alleviating Factors medication 12/10/2015 None edema Pertinent Findings Denies limb pain / tenderness 12/10/2015 None edema Pertinent Findings Denies limb redness 12/10/2015 None edema Pertinent Findings Denies nausea 12/10/2015 None edema Location on the left leg 12/10/2015 None edema Location on the right leg 12/10/2015 None edema Quality chronic 12/10/2015 None hypertension Quality intermittent 12/10/2015 None hypertension Onset and Resolution ongoing 12/10/2015 None hypertension Blood Pressure Values pt checking blood pressure - see scanned document 12/10/2015 None hypertension Pertinent Findings anxiety 12/10/2015 None hypertension Pertinent Findings Denies confusion 12/10/2015 None hypertension Pertinent Findings Denies dizziness 12/10/2015 None hypertension Pertinent Findings edema 12/10/2015 None edema Onset and Resolution ongoing 11/12/2015 None edema Onset of Symptom _ months ago 11/12/2015 None edema Limitation on Activities does not limit activities 11/12/2015 None edema Frequency of Episodes unchanged 11/12/2015 None edema Significant Past Medical History cardiac disease 11/12/2015 None edema Significant Past Medical History renal disease 11/12/2015 None edema Significant Medications diuretics 11/12/2015 None edema Triggers no known associated factors 11/12/2015 None edema Alleviating Factors medication 11/12/2015 None edema Pertinent Findings Denies nausea 11/12/2015 None edema Pertinent Findings Denies limb redness 11/12/2015 None edema Pertinent Findings Denies limb pain / tenderness 11/12/2015 None edema Location on the left leg 11/12/2015 None edema Location on the right leg 11/12/2015 None edema Quality chronic 11/12/2015 None edema Onset and Resolution gradual in onset 10/08/2015 None edema Limitation on Activities moderately limits activities 10/08/2015 None edema Frequency of Episodes daily 10/08/2015 None edema Significant Past Medical History cardiac disease 10/08/2015 None edema Triggers no known associated factors 10/08/2015 None edema Alleviating Factors medication 10/08/2015 None edema Exacerbating Factors activity 10/08/2015 None edema Pertinent Findings Denies nausea 10/08/2015 None edema Location on both legs 10/08/2015 None edema Quality acute None edema Onset of Symptom 1 months ago 10/08/2015 None edema Quality improving 10/08/2015 None edema Onset and Resolution gradual in onset 09/29/2015 None edema Limitation on Activities moderately limits activities 09/29/2015 None edema Frequency of Episodes daily 09/29/2015 None edema Location on both legs 09/29/2015 None edema Onset of Symptom 3 weeks ago 09/29/2015 None edema Triggers no known associated factors 09/29/2015 None edema Alleviating Factors medication 09/29/2015 None edema Exacerbating Factors activity 09/29/2015 None edema Quality acute None edema Pertinent Findings Denies nausea 09/29/2015 None edema Significant Past Medical History cardiac disease 09/29/2015 None edema Onset and Resolution gradual in onset 09/22/2015 None edema Onset of Symptom 2 weeks ago 09/22/2015 None edema Limitation on Activities moderately limits activities 09/22/2015 None edema Frequency of Episodes daily 09/22/2015 None edema Location on both legs 09/22/2015 None shortness of breath Quality chest tightness 09/22/2015 None shortness of breath Quality breathlessness 09/22/2015 None shortness of breath Onset and Resolution sudden in onset 09/22/2015 None shortness of breath Onset of Symptom 1 weeks ago 09/22/2015 None edema Onset and Resolution ongoing 07/21/2015 None edema Onset of Symptom _ months ago 07/21/2015 None edema Limitation on Activities does not limit activities 07/21/2015 None edema Frequency of Episodes decreasing 07/21/2015 None edema Significant Past Medical History cardiac disease 07/21/2015 None edema Significant Past Medical History renal disease 07/21/2015 None edema Significant Medications diuretics 07/21/2015 None edema Triggers diet change 07/21/2015 None edema Alleviating Factors medication 07/21/2015 None edema Pertinent Findings Denies dark urine 07/21/2015 None edema Pertinent Findings Denies dyspnea 07/21/2015 None edema Pertinent Findings Denies tachypnea 07/21/2015 None edema Location on the left leg 07/21/2015 None edema Location on the right leg 07/21/2015 None edema Quality chronic 07/21/2015 None edema Quality improving 07/21/2015 None edema Onset and Resolution ongoing 06/23/2015 None edema Pertinent Findings Denies dark urine 06/23/2015 None edema Pertinent Findings Denies dyspnea 06/23/2015 None edema Pertinent Findings Denies tachypnea 06/23/2015 None edema Frequency of Episodes decreasing 06/23/2015 None edema Limitation on Activities does not limit activities 06/23/2015 None edema Onset of Symptom _ months ago 06/23/2015 None edema Significant Past Medical History cardiac disease 06/23/2015 None edema Significant Past Medical History renal disease 06/23/2015 None edema Significant Medications diuretics 06/23/2015 None edema Triggers diet change 06/23/2015 None edema Alleviating Factors medication 06/23/2015 None edema Location on the left leg 06/23/2015 None edema Location on the right leg 06/23/2015 None edema Quality chronic 06/23/2015 None edema Quality improving 06/23/2015 None edema Onset and Resolution gradual in onset 06/12/2015 None edema Onset of Symptom 1 months ago 06/12/2015 None shortness of breath Quality breathlessness 06/12/2015 None shortness of breath Onset and Resolution sudden in onset 06/12/2015 None shortness of breath Onset of Symptom 3 weeks ago 06/12/2015 None edema Limitation on Activities moderately limits activities 06/12/2015 None edema Frequency of Episodes increasing 06/12/2015 None edema Significant Past Medical History cardiac disease 06/12/2015 None edema Significant Past Medical History renal disease 06/12/2015 None edema Significant Medications diuretics 06/12/2015 None edema Triggers no known associated factors 06/12/2015 None edema Alleviating Factors medication 06/12/2015 None edema Exacerbating Factors activity 06/12/2015 None edema Pertinent Findings Denies back pain 06/12/2015 None edema Pertinent Findings Denies limb redness 06/12/2015 None edema Pertinent Findings Denies palpitations 06/12/2015 None edema Quality acute None edema Quality chronic 06/12/2015 None edema Onset and Resolution ongoing 06/02/2015 None edema Pertinent Findings dyspnea 06/02/2015 None edema Pertinent Findings dyspnea on exertion 06/02/2015 None shortness of breath Quality worsening 06/02/2015 None shortness of breath Onset and Resolution ongoing 06/02/2015 None shortness of breath Pertinent Findings Denies chest discomfort 06/02/2015 None shortness of breath Pertinent Findings edema 06/02/2015 None shortness of breath Pertinent Findings increased work of breathing 06/02/2015 None hand pain Location on the left 03/31/2015 None hand pain Location on the right 03/31/2015 None hand pain Quality dull pain 03/31/2015 None hand pain Quality constant 03/31/2015 None hand pain Onset and Resolution ongoing 03/31/2015 None hand pain Frequency of Episodes daily 03/31/2015 None hand pain Pertinent Findings pain with movement 03/31/2015 None hand pain Pertinent Findings weakness 03/31/2015 None depression Quality chronic 03/31/2015 None depression Onset and Resolution ongoing 03/31/2015 coming up on 1 years anniversary of brother and 's depression Onset of Symptom during adulthood 03/31/2015 None depression Limitation on Activities does not limit activities 03/31/2015 None depression Frequency of Episodes increasing 03/31/2015 None depression Triggers recent of family member 03/31/2015 None sinus congestion Onset and Resolution ongoing 01/30/2015 None sinus congestion Onset of Symptom _ days ago 01/30/2015 None sinus congestion Severity mild 01/30/2015 None sinus congestion Frequency of Episodes decreasing 01/30/2015 None sinus congestion Timing of Episodes all day long 01/30/2015 None sinus congestion Significant Medical Conditions allergic rhinitis 01/30/2015 None sinus congestion Significant Medications decongestants 01/30/2015 None sinus congestion Triggers allergens 01/30/2015 None sinus congestion Alleviating Factors medication 01/30/2015 None sinus congestion Pertinent Findings Denies cough 01/30/2015 None sinus congestion Pertinent Findings Denies decreased energy level 01/30/2015 None sinus congestion Pertinent Findings Denies fever 01/30/2015 None sinus congestion Location on both sides 01/30/2015 None sinus congestion Quality acute 01/30/2015 None diarrhea Quality intermittent 12/22/2014 None diarrhea Pertinent Findings Denies abdominal distension 12/22/2014 None diarrhea Pertinent Findings Denies cramping 12/22/2014 None diarrhea Pertinent Findings Denies fever 12/22/2014 None diarrhea Pertinent Findings Denies nausea 12/22/2014 None edema Onset and Resolution ongoing 12/22/2014 None edema Exacerbating Factors rest 12/22/2014 None edema Pertinent Findings Denies dyspnea 12/22/2014 None edema Pertinent Findings Denies decreased urinary output 12/22/2014 None edema Location on both ankles 12/22/2014 None back pain Location in the left lower back area 10/29/2014 after fall started hurting on this side, worsening pain when turning or trying to get out of bed back pain Location in the right upper back area 10/29/2014 None back pain Quality acute 10/29/2014 None back pain Onset and Resolution ongoing 10/29/2014 None back pain Onset of Symptom 4 days ago 10/29/2014 None back pain Limitation on Activities does not limit activities 10/29/2014 None back pain Frequency of Episodes increasing 10/29/2014 None back pain Triggers no known associated factors 10/29/2014 None back pain Alleviating Factors rest 10/29/2014 None back pain Exacerbating Factors activity 10/29/2014 None back pain Radiating does not radiate 10/29/2014 None back pain Severity mild 10/29/2014 None back pain Severity moderate 10/29/2014 None back pain Pertinent Findings Denies fever 10/29/2014 None hoarseness Onset of Symptom 1 days ago 10/29/2014 None hoarseness Pertinent Findings cough 10/29/2014 choking while eating. hoarseness Pertinent Findings Denies fever 10/29/2014 None cough Location in the lung 10/29/2014 None cough Location in the throat 10/29/2014 None cough Quality dry 03/2014 does get choked on food, reports this morning while taking pills got choked and they came back up cough Onset and Resolution ongoing 10/29/2014 None cough Onset of Symptom _ days ago 10/29/2014 None cough Limitation on Activities moderately limits activities 10/29/2014 None cough Frequency of Episodes increasing 10/29/2014 None cough Pertinent Findings dyspnea 10/29/2014 None cough Pertinent Findings Denies fever 10/29/2014 None back pain Location in the right upper back area 10/14/2014 None back pain Location in the left lower back area 10/14/2014 after fall started hurting on this side, worsening pain when turning or trying to get out of bed back pain Onset of Symptom 4 days ago 10/14/2014 None back pain Pertinent Findings Denies fever 10/14/2014 None hoarseness Onset of Symptom 1 days ago 10/14/2014 None hoarseness Pertinent Findings Denies fever 10/14/2014 None hoarseness Pertinent Findings cough 10/14/2014 choking while eating. cough Quality dry does get choked on food, reports this morning while taking pills got choked and they came back up cough Pertinent Findings dyspnea 10/14/2014 None cough Pertinent Findings Denies fever 10/14/2014 None back pain Quality acute 10/14/2014 None back pain Onset and Resolution ongoing 10/14/2014 None back pain Limitation on Activities does not limit activities 10/14/2014 None back pain Frequency of Episodes increasing 10/14/2014 None back pain Triggers no known associated factors 10/14/2014 None back pain Alleviating Factors rest 10/14/2014 None back pain Exacerbating Factors activity 10/14/2014 None back pain Radiating does not radiate 10/14/2014 None back pain Severity mild 10/14/2014 None back pain Severity moderate 10/14/2014 None back pain Sports Participation not significant 10/14/2014 None cough Location in the lung 10/14/2014 None cough Location in the throat 10/14/2014 None cough Onset and Resolution ongoing 10/14/2014 None cough Onset of Symptom _ days ago 10/14/2014 None cough Limitation on Activities moderately limits activities 10/14/2014 None cough Frequency of Episodes increasing 10/14/2014 None edema Location on the right ankle 09/19/2014 right worse edema Quality chronic 09/19/2014 None edema Onset of Symptom _ weeks ago 09/19/2014 None edema Limitation on Activities does not limit activities 09/19/2014 None edema Frequency of Episodes decreasing 09/19/2014 None edema Significant Medications diuretics 09/19/2014 None edema Triggers no known associated factors 09/19/2014 None edema Alleviating Factors medication 09/19/2014 None edema Pertinent Findings limb pain / tenderness 09/19/2014 tender, but feels like it is starting to swell again. spasms/spasticity Location on both feet 09/19/2014 None spasms/spasticity Location on both legs 09/19/2014 lower spasms/spasticity Onset and Resolution ongoing 09/19/2014 thumbs edema Location on the left leg 09/19/2014 None spasms/spasticity Timing of Episodes at night 09/19/2014 None spasms/spasticity Timing of Episodes in the afternoon 09/19/2014 None cough Quality productive 09/19/2014 clear- ongoing- reports that occasionally she will eat too fast and choke on her food and then it comes back up cough Pertinent Findings dyspnea 09/19/2014 exertion. Feels like sides of neck have spasms edema Onset and Resolution improved during the day 09/19/2014 None edema Location on the right ankle 08/22/2014 much better- was in bilateral lower extrem. Her right worse with itching, but denies itching today edema Onset of Symptom _ weeks ago 08/22/2014 None edema Pertinent Findings limb pain / tenderness 08/22/2014 tender, but feels like it is starting to swell again. edema Onset and Resolution ongoing 08/22/2014 None edema Quality chronic 08/22/2014 None edema Limitation on Activities does not limit activities 08/22/2014 None edema Frequency of Episodes decreasing 08/22/2014 None edema Significant Medications diuretics 08/22/2014 None edema Triggers no known associated factors 08/22/2014 None edema Alleviating Factors medication 08/22/2014 None rash Quality acute 09/2014 --Improved rash Quality stable --Improved rash Quality erythematous 08/04/2014 --Improved rash Severity mild 09/2014 Pt reports that the itching has gone away. rash Location-Major on the arms 07/24/2014 None rash Quality acute None rash Quality new 07/24 None rash Quality stable None rash Quality erythematous 07/24/2014 None rash Onset and Resolution sudden in onset 07/24/2014 None rash Onset of Symptom 1 week ago 07/24/2014 None rash Severity mild Pt states "I itch a little bit." depression Onset of Symptom 2 months ago 07/15/2014 None depression Frequency of Episodes decreasing 07/15/2014 brother dies in April, and had a DVT that ended up as a saddle embolus causing his . depression Pertinent Findings depressed mood 07/15/2014 starting to eat a little better than she was depression Pertinent Findings Denies sleep disturbance 07/15/2014 reports sleeping pretty good- has medicine she can take if she needs to chest pain/pressure Radiating the left shoulder 07/15/2014 None chest pain/pressure Location on the left side of on the chest 07/15/2014 hx of afib chest pain/pressure Quality intermittent 07/15/2014 None chest pain/pressure Onset of Symptom 2 months ago 07/15/2014 None chest pain/pressure Length of Episodes 30 minutes 07/15/2014 None chest pain/pressure Pertinent Findings Denies dyspnea 07/15/2014 None chest pain/pressure Pertinent Findings cough 07/15/2014 especially at night chest pain/pressure Pertinent Findings edema 07/15/2014 bilateral lower extremities depression Quality chronic 07/15/2014 None Advance Directives No Advance Directive data Encounters Encounter Performer Location Codes Date ([id number]) 55969 EST. PATIENT, LEVEL IV Diagnosis: Essential (primary) hypertension[ICD10: I10] Diagnosis: Paroxysmal atrial fibrillation[ICD10: I48.0] Diagnosis: Generalized anxiety disorder[ICD10: F41.1] Diagnosis: Localized edema[ICD10: R60.0] [facility] CPT- 4: 32912 03/07/2017 ([id number]) 77102 EST. PATIENT, LEVEL IV Diagnosis: Generalized anxiety disorder[ICD10: F41.1] Diagnosis: Major depressive disorder, single episode, unspecified[ICD10: F32.9] Diagnosis: Essential (primary) hypertension[ICD10: I10] Diagnosis: Paroxysmal atrial fibrillation[ICD10: I48.0] Merle Daigle MD, [facility] CPT-4: 14215 01/24/2017 96705 EST. PATIENT, LEVEL IV Diagnosis: Other chest pain[ICD10: R07.89] Diagnosis: Other malaise[ICD10: R53.81] Opal Daigle MD, [facility] CPT-4 : 22346 09/29/2016 ([id number]) 02939 EST. PATIENT, LEVEL IV Diagnosis: Essential (primary) hypertension[ICD10: I10] Diagnosis: Paroxysmal atrial fibrillation[ICD10: I48.0] Diagnosis: Localized edema[ICD10: R60.0] Diagnosis: Generalized anxiety disorder[ICD10: F41.1] Diagnosis: Low back pain[ICD10: M54.5] Merle Daigle MD, [facility] CPT-4: 01511 09/13/2016 ([id number]) 94341 EST. PATIENT, LEVEL III Diagnosis: Essential (primary) hypertension[ICD10: I10] Diagnosis: Paroxysmal atrial fibrillation[ICD10: I48.0] Merle Daigle MD, [facility] CPT-4: 03852 05/31/2016 ([id number]) 25604 EST. PATIENT, LEVEL III Diagnosis: Essential (primary) hypertension[ICD10: I10] Diagnosis: Localized edema[ICD10: R60.0] Merle Daigle MD, [facility] CPT-4: 43083 05/10/2016 ([id number]) 54175 EST. PATIENT, LEVEL IV Diagnosis: Paroxysmal atrial fibrillation[ICD10: I48.0] Diagnosis: Essential (primary) hypertension[ICD10: I10] Diagnosis: Generalized anxiety disorder[ICD10: F41.1] Merle Daigle MD, [facility] CPT-4: 32869 04/25/2016 ([id number]) 29448 EST. PATIENT, LEVEL IV Diagnosis: Generalized anxiety disorder[ICD10: F41.1] Diagnosis: Essential (primary) hypertension[ICD10: I10] Diagnosis: Paroxysmal atrial fibrillation[ICD10: I48.0] Diagnosis: Localized edema[ICD10: R60.0] Diagnosis: Acute recurrent maxillary sinusitis[ICD10: J01.01] Merle Daigle MD, [facility] CPT-4: 03360 01/14/2016 ([id number]) 77687 EST. PATIENT, LEVEL IV Diagnosis: Essential (primary) hypertension[ICD10: I10] Diagnosis: Generalized anxiety disorder[ICD10: F41.1] Diagnosis: Localized edema[ICD10: R60.0] Diagnosis: Encounter for immunization[ICD10: Z23] Merle Daigle MD, [facility] CPT-4: 88830 12/10/2015 ([id number]) 41289 EST. PATIENT, LEVEL III Diagnosis: Essential (primary) hypertension[ICD10: I10] Diagnosis: Localized edema[ICD10: R60.0] Merle Daigle MD, [facility] CPT-4: 73912 11/12/2015 ([id number]) 51896 EST. PATIENT, LEVEL III Diagnosis: Essential (primary) hypertension[ICD10: I10] Diagnosis: Localized edema[ICD10: R60.0] Merle Dagile MD, [facility] CPT-4: 82427 10/08/2015 ([id number]) 42267 EST. PATIENT, LEVEL III Diagnosis: Localized edema[ICD10: R60.0] Diagnosis: Essential (primary) hypertension[ICD10: I10] Merle Daigle MD, [facility] CPT-4: 79572 09/29/2015 ([id number]) 18346 EST. PATIENT, LEVEL IV Diagnosis: Localized edema[ICD10: R60.0] Diagnosis: Essential (primary) hypertension[ICD10: I10] Diagnosis: Paroxysmal atrial fibrillation[ICD10: I48.0] Merle Daigle MD, [facility] CPT-4: 09304 09/22/2015 ([id number]) 90769 EST. PATIENT, LEVEL III Diagnosis: Essential (primary) hypertension[ICD10: I10] Diagnosis: Paroxysmal atrial fibrillation[ICD10: I48.0] Merle Daigle MD, [facility] CPT-4: 74097 07/21/2015 ([id number]) 01290 EST. 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 CPT-4: 70260 06/23/2015 ([id number]) 55905 EST. 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 CPT-4: 37570 06/12/2015 [id number]) 57572 EST. PATIENT, LEVEL IV Diagnosis: Essential (primary) hypertension[ICD10: I10] Diagnosis: Paroxysmal atrial fibrillation[ICD10: I48.0] Diagnosis: Localized edema[ICD10: R60.0] Diagnosis: Encounter for therapeutic drug level monitoring[ICD10: Z51.81] Merle Daigle MD, [facility] CPT-4: 25740 06/02/2015 ([id number]) 86336 EST. 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 CPT-4: 84436 03/31/2015 ([id number]) 36652 EST. PATIENT, LEVEL III Diagnosis: Essential (primary) hypertension[ICD10: I10] Diagnosis: Allergic rhinitis due to pollen[ICD10: J30.1] Merle Daigle MD, [facility] CPT-4: 93896 01/30/2015 56036 EST. PATIENT, LEVEL III Diagnosis: Localized edema[ICD10: R60.0] Diagnosis: Diarrhea, unspecified[ICD10: R19.7] Veronica Daigle MD, [facility] CPT-4: 54346 12/22/2014 ([id number]) 02226 EST. PATIENT, LEVEL IV Diagnosis: DYSPHAGIA, PHARYNGEAL[ICD9: 787.23] Diagnosis: Low back pain[ICD9: 724.2] Diagnosis: Cough[ICD9: 786.2] Diagnosis: Anticoagulated on Coumadin[ICD9: V58.83] Diagnosis: MUSCLE WEAKNESS-GENERAL[ICD9: 728.87] Diagnosis: EDEMA[ICD9: 782.3] Veronica Daigle MD, [facility] CPT-4: 80300 10/29/2014 ([id number]) 25736 EST. PATIENT, LEVEL IV Diagnosis: Low back pain[ICD9: 724.2] Diagnosis: Pneumonia[ICD9: 486] Diagnosis: Cough[ICD9: 786.2] Diagnosis: Anticoagulated on Coumadin[ICD9: V58.83] Diagnosis: DYSPHAGIA, NOS[ICD9: 787.20] Diagnosis: MUSCLE WEAKNESS-GENERAL[ICD9: 728.87] Merle Daigle MD, [facility] CPT-4: 56853 10/14/2014 ([id number]) 18089 EST. PATIENT, LEVEL IV Diagnosis: ESSENTIAL HYPERTENSION[ICD9: 401.9] Diagnosis: ESOPHAGEAL REFLUX[ICD9: 530.81] Diagnosis: SLEEP RELATED LEG CRAMPS[ICD9: 327.52] Diagnosis: Atrial fibrillation[ICD9: 427.31] Diagnosis: Anticoagulated on Coumadin[ICD9: V58.83] Diagnosis: VITAMIN D DEFICIENCY[ICD9: 268.9] Merle Daigle MD, [facility] CPT-4: 39311 09/19/2014 ([id number]) 27502 EST. PATIENT, LEVEL III Diagnosis: EDEMA[ICD9: 782.3] Diagnosis: LONG-TERM USE ANTICOAGUL[ICD9: V58.61] Merle Daigle MD, [facility] CPT-4: 72274 08/22/2014 [id number]) 83792 EST. PATIENT, LEVEL IV Diagnosis: Skin irritation[ICD9: 709.9] Diagnosis: ESSENTIAL HYPERTENSION[ICD9: 401.9] Diagnosis: Anticoagulated on Coumadin[ICD9: V58.83] Diagnosis: DEPRESSIVE DISORDER NEC[ICD9: 311] Yumiko Daigle MD, [facility] CPT-4: 74559 08/04/2014 ([id number]) 83537 EST. PATIENT, LEVEL III Diagnosis: Skin irritation[ICD9: 709.9] [facility] CPT- 4: 38891 07/24/2014 ([id number]) OFFICE/OUTPATIENT VISIT NEW Diagnosis: ESSENTIAL HYPERTENSION[ICD9: 401.9] Diagnosis: COUGH[ICD9: 786.2] Diagnosis: Atrial fibrillation[ICD9: 427.31] Diagnosis: LONG-TERM USE ANTICOAGUL[ICD9: V58.61] Diagnosis: DEPRESSIVE DISORDER NEC[ICD9: 311] [facility] CPT-4: 68999 07/15/2014 Plan of Care Planned Activity Notes Codes Status Date Appointment: Veronica Daigle WPtel: [phone] [phone] (15 min) Moderate 03/07/2017 Patient Education: Patient Medication Summary Completed 03/07/2017 Appointment: Merle Esparza WPtel: [phone] [phone] [place] (30 min) Complex 01/24/2017 Patient Education: Patient Medication Summary Completed 01/24/2017 Patient Education: Hypertension Completed 01/24/2017 [phone] ([facility]) Moderate 09/29/2016 App[facility]ment[phone] (15 min) Moderate 09/29/2016 Patient Education: Patient Medication Summary Completed 09/29/2016 Appointment: Merle Esparza WPtel: [phone] [phone] [place] (30 min) Complex 09/13/2016 Patient Education: Patient Medication Summary Completed 09/13/2016 Appointment: Merle Esparza WPtel: [phone] [phone] [place] (30 min) Complex 05/31/2016 Patient Education: Patient Medication Summary Completed 05/31/2016 App[facility]ment: [phone] [place] (30 min) Complex 05/10/2016 Patient Education: Patient Medication Summary Completed 05/10/2016 Patient Education: Hypertension Completed 05/10/2016 App[facility]ment: [phone] [place] (15 min) Moderate 05/09/2016 Appointment: Merle Esparza WPtel: [phone] [place] (30 min) Complex 04/25/2016 Patient Education: Patient Medication Summary Completed 04/25/2016 Patient Education: Hypertension Completed 04/25/2016 Appointment: Merle Esparza WPtel: [phone] [place] (15 min) Moderate 02/12/2016 Appointment: Merle Esparza WPtel: [phone] [place] (30 min) Complex 01/14/2016 Patient Education: Patient Medication Summary Completed 01/14/2016 Patient Education: Hypertension Completed 01/14/2016 Appointment: Merle Esparza WPtel: [phone] [place] (30 min) Complex 12/10/2015 Patient Education: Patient Medication Summary Completed 12/10/2015 Patient Education: Hypertension Completed 12/10/2015 Appointment: Merle Esparza WPtel: [phone] [place] (15 min) Moderate 11/12/2015 Patient Education: Patient Medication Summary Completed 11/12/2015 Appointment: Merle Esparza WPtel: [phone] [place] (15 min) Moderate 10/22/2015 Appointment: Merle Esparza WPtel: [phone] [place] (15 min) Moderate 10/08/2015 Patient Education: Patient Medication Summary Completed 10/08/2015 Appointment: Merle Esparza WPtel: [phone] (15 min) Moderate 09/29/2015 Patient Education: Patient Medication Summary Completed 09/29/2015 Patient Education: Hypertension Completed 09/29/2015 Appointment: Merle Esparza WPtel: [address] [place], [place] [phone] (30 min) Complex 09/22/2015 Patient Education: Patient Medication Summary Completed 09/22/2015 Patient Education: Hypertension Completed 09/22/2015 Patient Education: Patient Medication Summary Completed 07/21/2015 Appointment: Merle Esparza WPtel: [phone] (30 min) Complex 06/23/2015 Patient Education: Patient Medication Summary Completed 06/23/2015 Patient Education: Patient Medication Summary Completed 06/12/2015 Appointment: (30 min) Complex 06/02/2015 Patient Education: Patient Medication Summary Completed 06/02/2015 Patient Education: Hypertension Completed 06/02/2015 Patient Education: Patient Medication Summary Completed 03/31/2015 Patient Education: Patient Medication Summary Completed 03/31/2015 Patient Education: Hypertension Completed 03/31/2015 Appointment: (30 min) Complex 01/30/2015 Patient Education: Patient Medication Summary Completed 01/30/2015 Patient Education: Hypertension Completed 01/30/2015 Appointment: Veronica Daigle WPtel: [address] [place] [phone] (30 min) Complex 01/28/2015 Appointment: (30 min) Complex 01/27/2015 Appointment: Merle Esparza WPtel: [phone] [place] (30 min) Complex 12/22/2014 Patient Education: Patient Medication Summary Completed 12/22/2014 Appointment: (15 min) Moderate 11/21/2014 Appointment: (30 min) Complex 11/18/2014 Appointment: Lab Draw 11/07/2014 Patient Education: Patient Medication Summary Completed 11/07/2014 Patient Education: Patient Medication Summary Completed 10/29/2014 Appointment: (15 min) Moderate 10/14/2014 Patient Education: Patient Medication Summary Completed 10/14/2014 Appointment: (15 min) Moderate 09/19/2014 Patient Education: Patient Medication Summary Completed 09/19/2014 Patient Education: Hypertension Completed 09/19/2014 Appointment: (30 min) Complex 08/22/2014 Patient Education: Patient Medication Summary Completed 08/22/2014 Care Plan: COMPLETE CBC AUTOMATED LOINC : 01142-9 Ordered 08/22/2014 Appointment: (10 min) Simple 08/04/2014 Patient Education: Patient Medication Summary Completed 08/04/2014 Patient Education: Hypertension Completed 08/04/2014 Appointment: [phone] (10 min) Simple 07/24/2014 Patient Education: Patient Medication Summary Completed 07/24/2014 Appointment: [facility] Da[facility]: [phone] [place] ([place] New Patient 07/15/2014 Patient Education: Patient Medication Summary Completed 07/15/2014 Patient Education: Hypertension Completed 07/15/2014 Instructions No Instructions
--- OUTSIDE RECORDS SUMMARY | 2017-04-05 11:12 | XMS REPORT | CCD ---
Author Author [facility] Organization [facility] Address [address] [place] [address] Phone Care Team Providers Care Appraisal Technician Name Role Phone PP Unavailable CCM Unavailable Summary Purpose Interface Exchange Insurance Providers Payer name Policy type / Coverage type Covered alliance party ID Effective Begin Date Effective End Date WPS Medicare Part B Medicare Part B [id number] Unknown Unknown Family history Mother Diagnosis Age At Onset Hypertension Unknown Heart Attack Unknown Social History Social History Element Codes Description Effective Dates Marital status Unknown 07/15/2014 Marital status Unknown 07/15/2014 Number of children Unknown 0 07/15/2014 Number of children Unknown 0 07/15/2014 Employment Unknown Retired 07/15/2014 Employment Unknown Retired 07/15/[address]: 846202523 Has never smoked or chewed tobacco 07/15/[address]: 778276483 Has never smoked or chewed tobacco 07/15/[address]: 082130695 Never drinks alcohol 07/15/[address]: 851792431 Never drinks alcohol 07/15/2014 Allergies, Adverse Reactions, [...] ICD-9: V58.83 ICD-10: Z51.81 Active 06/01/2015 Unknown [facility] (current) use of anticoagulants ICD-9: V58.61 ICD-10: [...] monitoring ICD-9: V58.83 ICD-10: Z51.81 06/01/2015 Active [facility] (current) use of anticoagulants ICD-9: V58.61 ICD-10: [...] Start Date Stop Date Status Fill Instructions Zofran 4 mg tablet RxNorm: 404339 1 Tablet(s) PO QID as needed nausea 03/23/2017 06/20/2017 Active Zofran 4 mg tablet RxNorm: 341113 1 Tablet(s) PO QID as needed nausea 03/23/2017 03/22/2017 Inactive lisinopril 10 mg tablet RxNorm: 339838 TAKE ONE-HALF TABLET BY MOUTH DAILY 03/10/2017 06/02/2018 Active metolazone 5 mg tablet RxNorm: 765616 1 Tablet(s) PO TIW 201703/01/2018 Active hydrocodone 7.5 mg-acetaminophen 325 mg tablet RxNorm: 579347 1-2 Tablet(s) PO Q4- 6H as needed pain 02/23/2017 No Stop Date Active omeprazole 20 mg capsule,delayed release RxNorm: 200201 Capsule(s) TAKE ONE CAPSULE BY MOUTH TWICE A DAY 02/08/2017 Active metolazone 5 mg tablet RxNorm: 329848 TAKE 1 TABLET BY MOUTH TWICE WEEKLY 02/08/2017 03/06/2017 Inactive Lexapro 5 mg tablet RxNorm: 934740 1 Tablet(s) PO QPM 201603/06/2017 Inactive hydrocodone 7.5 mg-acetaminophen 325 mg tablet RxNorm: 128081 1-2 Tablet(s) PO Q4- 6H as needed pain 01/16/2017 02/22/2017 Inactive Lasix 40 mg tablet RxNorm: 923279 TAKE ONE TABLET BY MOUTH DAILY 01/11/2017 10/07/2017 Active metoprolol tartrate 25 mg tablet RxNorm: 353734 TAKE 1/2 TABLET BY MOUTH TWO TIMES A DAY 01/11/2017 07/09/2017 Active allopurinol 300 mg tablet RxNorm: 090960 TAKE ONE TABLET BY MOUTH DAILY 01/09/2017 06/07/2017 Active hydrocodone 7.5 mg-acetaminophen 325 mg tablet RxNorm: 086010 1-2 Tablet(s) PO Q4- 6H as needed pain 12/06/2016 01/15/2017 Inactive lisinopril 10 mg tablet RxNorm: 966625 TAKE ONE-HALF TABLET BY MOUTH DAILY 12/02/2016 03/09/2017 Inactive buspirone 10 mg tablet RxNorm: 635761 TAKE ONE TABLET BY MOUTH THREE TIMES A DAY 10/25/2016 01/22/2017 Inactive buspirone 10 mg tablet RxNorm: 051773 TAKE ONE TABLET BY MOUTH THREE TIMES A DAY 10/25/2016 10/24/2016 Inactive hydrocodone 7.5 mg-acetaminophen 325 mg tablet RxNorm: 397451 1-2 or 2 Tablet(s) PO Q4-6H as needed pain 10/25/20162016 Inactive cyanocobalamin (vit B-12) 1,000 mcg/mL injection solution RxNorm: 759824 INJECT 1 ML INTRAMUSCULARLY 2 TIMES A MONTH FOR 2 MONTHS, THEN ONCE A MONTH THEREAFTER 10/24/2016 02/12/2017 Inactive metolazone 5 mg tablet RxNorm: 803720 TAKE 1 TABLET BY MOUTH TWICE WEEKLY 09/23/2016 01/12/2017 Inactive hydrocodone 7.5 mg-acetaminophen 325 mg tablet RxNorm: 350109 1-2 or 2 Tablet(s) PO Q4-6H as needed pain 09/13/20162016 Inactive Keflex 500 mg capsule RxNorm: 553244 1 Capsule(s) PO TID 201609/15/2016 Inactive Take with a probiotic BID Keflex 500 mg capsule RxNorm: 751366 1 Capsule(s) PO TID 201609/08/2016 Inactive Take with a probiotic BID metoprolol tartrate 25 mg tablet RxNorm: 039178 TAKE 1/2 TABLET BY MOUTH TWO TIMES A DAY 09/07/2016 01/04/2017 Inactive potassium chloride ER 10 mEq tablet,extended release RxNorm: 339849 TAKE TWO TABLETS BY MOUTH THREE TIMES A DAY 09/01/2016 02/27/2017 Inactive hydrocodone 7.5 mg-acetaminophen 325 mg tablet RxNorm: 705678 1 or 2 Tablet(s) PO Q4-6H as needed pain 08/31/20162016 Inactive omeprazole 20 mg capsule,delayed release RxNorm: 456534 TAKE ONE CAPSULE BY MOUTH TWICE A DAY 08/24/2016 02/07/2017 Inactive hydrocodone 7.5 mg-acetaminophen 325 mg tablet RxNorm: 131838 1 or 2 Tablet(s) PO Q4-6H as needed pain 08/05/20162016 Inactive lisinopril 10 mg tablet RxNorm: 459754 TAKE ONE-HALF TABLET BY MOUTH DAILY 07/28/2016 12/01/2016 Inactive hydrocodone 7.5 mg-acetaminophen 325 mg tablet RxNorm: 396823 1 or 2 Tablet(s) PO Q4-6H as needed pain 07/05/20162016 Inactive allopurinol 300 mg tablet RxNorm: 271175 TAKE ONE TABLET BY MOUTH DAILY 06/16/2016 12/12/2016 Inactive metoprolol tartrate 25 mg tablet RxNorm: 578713 TAKE 1/2 TABLET BY MOUTH TWO TIMES A DAY 06/16/2016 08/14/2016 Inactive buspirone 10 mg tablet RxNorm: 231753 TAKE ONE TABLET BY MOUTH THREE TIMES A DAY 06/15/2016 10/12/2016 Inactive hydrocodone 7.5 mg-acetaminophen 325 mg tablet RxNorm: 800145 1 or 2 Tablet(s) PO Q4-6H as needed pain 06/07/20162016 Inactive metoprolol tartrate 25 mg tablet RxNorm: 244604 1/2 Tablet(s) PO QPM 05/10/2016 06/08/2016 Inactive lisinopril 10 mg tablet RxNorm: 876836 1/2 Tablet(s) PO daily 04/26/2016 07/27/2016 Inactive hydrocodone 7.5 mg-acetaminophen 325 mg tablet RxNorm: 050938 1 or 2 Tablet(s) PO Q4-6H as needed pain 04/25/20162016 Inactive lisinopril 10 mg tablet RxNorm: 783894 1/2 Tablet(s) PO daily 04/25/2016 04/25/2016 Inactive metoprolol tartrate 25 mg tablet RxNorm: 375978 1/2 Tablet(s) PO BID 04/25/2016 05/09/2016 Inactive allopurinol 300 mg tablet RxNorm: 048966 TAKE ONE TABLET BY MOUTH DAILY 04/19/2016 06/15/2016 Inactive metolazone 5 mg tablet RxNorm: 235234 TAKE 1 TABLET BY MOUTH TWICE WEEKLY 04/19/2016 09/05/2016 Inactive warfarin 5 mg tablet RxNorm: 117548 1 Tablet(s) PO daily TAKE ONE TABLET BY MOUTH DAILY 03/21/2016 03/15/[address] Echevarria manages potassium chloride ER 10 mEq tablet,extended release RxNorm: 441771 2 Tablet(s) PO TID 03/21/2016 08/17/2016 Inactive potassium chloride ER 10 mEq tablet,extended release(part/ cryst) RxNorm: 0920470 2 Tablet(s) PO TID 03/11/2016 03/20/2016 Inactive Xanax 0.25 mg tablet RxNorm: 173655 1 Tablet(s) PO TID as needed anxiety 03/10/2016 04/08/2016 Inactive Xanax 0.25 mg tablet RxNorm: 408695 1 Tablet(s) PO TID as needed anxiety 03/10/2016 04/06/2016 Inactive hydrocodone 7.5 mg-acetaminophen 325 mg tablet RxNorm: 571826 1 or 2 Tablet(s) PO Q4-6H as needed pain 02/26/20162016 Inactive Flonase Allergy Relief 50 mcg/actuation nasal spray, suspension RxNorm: 0064013 1 Rescue NASAL each nare daily 01/19/2016 03/18/2016 Inactive cefdinir 300 mg capsule RxNorm: 841225 1 Capsule(s) PO BID 01/23/2016 Inactive take probiotic BID x 7 days Flonase Allergy Relief 50 mcg/actuation nasal spray, suspension RxNorm: 9170931 1 Rescue NASAL each nare daily 01/19/2016 01/18/2016 Inactive allopurinol 300 mg tablet RxNorm: 334964 TAKE ONE TABLET BY MOUTH DAILY 01/18/2016 04/16/2016 Inactive Lasix 40 mg tablet RxNorm: 525337 1 Tablet(s) PO daily 201501/07/2017 Inactive (this was only twice daily x1 week) now it's daily cefdinir 300 mg capsule RxNorm: 593489 1 Capsule(s) PO BID 01/17/2016 Inactive take probiotic BID x 7 days cefdinir 300 mg capsule RxNorm: 399786 1 Capsule(s) PO BID 01/10/2016 Inactive buspirone 10 mg tablet RxNorm: 505599 TAKE ONE TABLET BY MOUTH THREE TIMES A DAY 01/11/2016 06/08/2016 Inactive hydrocodone 7.5 mg-acetaminophen 325 mg tablet RxNorm: 608562 1 or 2 Tablet(s) PO Q4-6H as needed pain 12/28/20152015 Inactive potassium chloride ER 10 mEq tablet,extended release(part/ cryst) RxNorm: 4967773 2 po TID x 2 days then 2 po BID Tablet(s) 12/28/2015 03/10/2016 Inactive potassium chloride ER 10 mEq tablet,extended release(part/ cryst) RxNorm: 4846595 TAKE ONE TABLET BY MOUTH TWICE A DAY FOR 1 WEEK THEN RETURN TO DAILY 12/28/2015 12/27/2015 Inactive meclizine 25 mg tablet RxNorm: 131104 1 Tablet(s) PO BID PRN No Stop Date Active potassium chloride ER 10 mEq tablet,extended release(part/ cryst) RxNorm: 4812707 1 Tablet(s) PO TID 12/08/2015 03/10/2016 Inactive potassium chloride ER 10 mEq tablet,extended release(part/ cryst) RxNorm: 1434789 2 Tablet(s) PO daily 11/26/20152015 Inactive cyanocobalamin (vit B-12) 1,000 mcg/mL injection solution RxNorm: 824244 INJECT 1 ML INTRAMUSCULARLY 2 TIMES A MONTH FOR 2 MONTHS, THEN ONCE A MONTH THEREAFTER 11/26/2015 04/23/2016 Inactive potassium chloride ER 10 mEq tablet,extended release(part/ cryst) RxNorm: 8872747 3 Tablet(s) PO daily 11/23/20152015 Inactive Lasix 40 mg tablet RxNorm: 104766 1 Tablet(s) PO daily 201501/13/2016 Inactive (this was only twice daily x1 week) now it's daily metolazone 5 mg tablet RxNorm: 150977 1 Tablet(s) BIW TAKE ONE TABLET BY MOUTH DAILY 11/12/2015 04/18/2016 Inactive hydrocodone 7.5 mg-acetaminophen 325 mg tablet RxNorm: 954919 1 or 2 Tablet(s) PO Q4-6H as needed pain 11/12/20152015 Inactive Lasix 40 mg tablet RxNorm: 074204 1 Tablet(s) PO daily 201511/11/2015 Inactive (this was only twice daily x1 week) now it's daily metolazone 5 mg tablet RxNorm: 911172 Tablet(s) TAKE ONE TABLET BY MOUTH DAILY 10/22/2015 10/29/2015 Inactive potassium chloride ER 10 mEq tablet,extended release(part/ cryst) RxNorm: 3387724 1 Tablet(s) PO daily 10/08/20152015 Inactive twice daily x 1 week then return to daily Lasix 40 mg tablet RxNorm: 452336 1 Tablet(s) PO daily 201511/09/2015 Inactive twice daily x 1 week then daily thereafter Keflex 500 mg capsule RxNorm: 761579 1 Capsule(s) PO TID 201510/02/2015 Inactive Keflex 500 mg capsule RxNorm: 586662 1 Capsule(s) PO TID 201509/22/2015 Inactive hydrocodone 7.5 mg-acetaminophen 325 mg tablet RxNorm: 005869 1 or 2 Tablet(s) PO Q4-6H as needed pain 09/22/20152015 Inactive potassium chloride ER 10 mEq tablet,extended release(part/ cryst) RxNorm: 0032012 1 Tablet(s) PO BID 09/22/2015 10/07/2015 Inactive twice daily x 1 week then return to daily Lasix 40 mg tablet RxNorm: 769870 1 Tablet(s) PO BID 201510/07/2015 Inactive twice daily x 1 week then daily thereafter allopurinol 300 mg tablet RxNorm: 775368 1 Tablet(s) PO daily 09/09/2015 01/06/2016 Inactive diltiazem 90 mg tablet RxNorm: 702419 Tablet(s) TAKE ONE TABLET BY MOUTH THREE TIMES A DAY 09/02/2015 01/28/2016 Inactive diltiazem 90 mg tablet RxNorm: 866582 TAKE ONE TABLET BY MOUTH THREE TIMES A DAY 08/31/2015 01/28/2016 Inactive diltiazem 90 mg tablet RxNorm: 265408 TAKE ONE TABLET BY MOUTH THREE TIMES A DAY 08/31/2015 09/01/2015 Inactive Xanax 0.25 mg tablet RxNorm: 056689 1 Tablet(s) PO TID as needed anxiety 08/28/2015 09/26/2015 Inactive Xanax 0.25 mg tablet RxNorm: 780495 1 Tablet(s) PO TID as needed anxiety 08/28/2015 08/27/2015 Inactive potassium chloride ER 10 mEq tablet,extended release(part/ cryst) RxNorm: 996172 TAKE ONE TABLET BY MOUTH DAILY 08/27/2015 2015 Inactive omeprazole 20 mg capsule,delayed release RxNorm: 126109 TAKE ONE CAPSULE BY MOUTH TWICE A DAY 08/16/2015 02/11/2016 Inactive omeprazole 20 mg capsule,delayed release RxNorm: 701696 TAKE ONE CAPSULE BY MOUTH TWICE A DAY 08/16/2015 08/15/2015 Inactive hydrocodone 7.5 mg-acetaminophen 325 mg tablet RxNorm: 580571 1 or 2 Tablet(s) PO Q4-6H as needed pain 08/11/20152015 Inactive omeprazole 20 mg capsule,delayed release RxNorm: 563689 Capsule(s) TAKE ONE CAPSULE BY MOUTH TWICE A DAY 08/03/2015 Inactive omeprazole 20 mg capsule,delayed release RxNorm: 530018 Capsule(s) TAKE ONE CAPSULE BY MOUTH TWICE A DAY 07/31/2015 Inactive buspirone 10 mg tablet RxNorm: 042603 TAKE ONE TABLET BY MOUTH THREE TIMES A DAY 07/13/2015 01/08/2016 Inactive metolazone 5 mg tablet RxNorm: 870766 TAKE ONE TABLET BY MOUTH DAILY 07/02/2015 07/09/2015 Inactive metolazone 5 mg tablet RxNorm: 153100 1 Tablet(s) PO daily 06/18/2015 Inactive metolazone 5 mg tablet RxNorm: 422595 1 Tablet(s) PO daily 06/14/2015 Inactive hydrocodone 7.5 mg-acetaminophen 325 mg tablet RxNorm: 339947 1or2 1 or 2 Tablet(s ) PO Q4-6H as needed pain 06/12/201507/10 Inactive warfarin 1 mg tablet RxNorm: 733428 1 Tablet(s) 04/15/2015 06/22/2015 Inactive take with 3mg to make 4mg on e and repeat in 1 week. hydrocodone 7.5 mg-acetaminophen 325 mg tablet RxNorm: 465741 1or2 or 2 Tablet(s) PO Q4-6H as needed pain 03/31/20152015 Inactive hydrocodone 7.5 mg-acetaminophen 325 mg tablet RxNorm: 186354 1or2 or 2 Tablet(s) PO Q4-6H as needed pain 03/25/20152015 Inactive warfarin 5 mg tablet RxNorm: 047681 1 Tablet(s) PO daily TAKE ONE TABLET BY MOUTH DAILY 03/05/2015 06/22/2015 Inactive Xarelto 20 mg tablet RxNorm: 2866333 1 Tablet(s) PO QPM 201503/04/2015 Inactive losartan 100 mg tablet RxNorm: 169127 1 Tablet(s) PO daily 05/201406/22/2015 Inactive [SAVINGS FOR NON-COVERED DRUGS -- BIN:[id number], PCN: ASPROD1, Group: XXXXX, ID# [id number], Questions: . THIS IS NOT INSURANCE.] Kenalog 40 mg/mL suspension for injection RxNorm: 2690742 1 Milliliter(s) Inj 01/30/2015 01/30/2015 Inactive hydrocodone 7.5 mg-acetaminophen 325 mg tablet RxNorm: 743140 1or2 or 2 Tablet(s) PO Q4-6H as needed pain 01/15/20152014 Inactive Lasix 40 mg tablet RxNorm: 121177 1 Tablet(s) PO daily 201409/21/2015 Inactive as needed for swelling-take potassium when you take lasix potassium chloride ER 10 mEq tablet,extended release(part/ cryst) RxNorm: 998626 2 Tablet(s) PO daily 01/06/2015 01/19/2015 Inactive Lasix 40 mg tablet RxNorm: 033067 1 Tablet(s) PO daily 201401/06/2015 Inactive Ok to fill 20mg, not 40mg as needed for swelling-take potassium when you take lasix potassium chloride ER 10 mEq tablet,extended release(part/ cryst) RxNorm: 948701 1 Tablet(s) PO BID 12/30/2014 01/05/2015 Inactive Vitamin D2 50,000 unit capsule RxNorm: 867281 TAKE 1 CAPSULE BY MOUTH ONCE WEEKLY FOR 12 WEEKS 12/30/2014 03/23/2015 Inactive potassium chloride ER 10 mEq tablet,extended release(part/ cryst) RxNorm: 354690 1 Tablet(s) PO daily 12/26/2014 12/29/2014 Inactive potassium chloride ER 10 mEq tablet,extended release(part/ cryst) RxNorm: 840040 1 Tablet(s) PO daily 12/26/2014 12/25/2014 Inactive omeprazole 20 mg capsule,delayed release RxNorm: 741863 TAKE ONE CAPSULE BY MOUTH TWICE A DAY 12/24/2014 07/21/2015 Inactive Flagyl 500 mg tablet RxNorm: 401056 1 Tablet(s) PO TID 201412/20/2014 Inactive Flagyl 500 mg tablet RxNorm: 831512 1 Tablet(s) PO TID 201412/10/2014 Inactive warfarin 3 mg tablet RxNorm: 547538 TAKE ONE TABLET BY MOUTH DAILY 11/13/2014 01/29/2015 Inactive warfarin 3 mg tablet RxNorm: 153330 TAKE ONE TABLET BY MOUTH DAILY 11/13/2014 01/29/2015 Inactive warfarin 3 mg tablet RxNorm: 859284 TAKE ONE TABLET BY MOUTH DAILY 11/13/2014 03/04/2015 Inactive warfarin 3 mg tablet RxNorm: 147830 1 Tablet(s) PO daily 201403/04/2015 Inactive allopurinol 300 mg tablet RxNorm: 207934 1 Tablet(s) PO daily 11/11/2014 03/10/2015 Inactive hydrocodone 7.5 mg-acetaminophen 325 mg tablet RxNorm: 010390 1or2 or 2 Tablet(s) PO Q4-6H as needed pain 11/10/20142014 Inactive hydrocodone 7.5 mg-acetaminophen 325 mg tablet RxNorm: 222965 1or2 or 2 Tablet(s) PO Q4-6H as needed pain 10/15/20142014 Inactive hydrocodone 7.5 mg-acetaminophen 325 mg tablet RxNorm: 232004 1or2 or 2 Tablet(s) PO Q4-6H as needed pain 10/15/20142014 Inactive Kenalog 40 mg/mL suspension for injection RxNorm: 0042959 Milliliter(s) Inj 10/14/2014 10/14/2014 Inactive ceftriaxone 500 mg solution for injection RxNorm: 9266031 Inj 10/14/2014 10/14/2014 Inactive Zithromax Z-Chito 250 mg tablet RxNorm: 556342 1 Tablet(s) PO UD 10/14/2014 01/29/2015 Inactive zpack cefdinir 300 mg capsule RxNorm: 240509 1 Capsule(s) PO BID 10/20/2014 Inactive Vitamin D2 50,000 unit capsule RxNorm: 037559 1 Capsule(s) PO weekly x 12 weeks 09/24/2014 09/23/2014 Inactive Vitamin D2 50,000 unit capsule RxNorm: 408756 1 Capsule(s) PO weekly x 12 weeks 09/24/2014 12/22/2014 Inactive warfarin 1 mg tablet RxNorm: 897938 TAKE 1/2 TABLET BY MOUTH DAILY WITH 3MG TABLET TO EQUAL 3.5MG DAILY 09/22/201404/2014 Inactive warfarin 1 mg tablet RxNorm: 017585 1/2 Tablet(s) PO daily 3.5mg 08/26/2014 2014 Inactive taking with a 3mg to make 3.5mg tablets Lasix 20 mg tablet RxNorm: 613781 1 Tablet(s) PO QDAY PRN 09/24/2014 Inactive Ok to fill 20mg, not 40mg as needed for swelling-take potassium when you take lasix buspirone 10 mg tablet RxNorm: 126844 1 Tablet(s) PO TID 201411/25/2014 Inactive takes it BID but if she feels anxious she takes one during the day Lasix 20 mg tablet RxNorm: 779353 1 Tablet(s) PO QDAY PRN 08/25/2014 Inactive as needed for swelling-take potassium when you take lasix warfarin 1 mg tablet RxNorm: 001822 1/2 Tablet(s) PO daily 3.5mg 08/15/2014 08/21/2014 Inactive taking with a 3mg to make 3.5mg tablets warfarin 3 mg tablet RxNorm: 987561 1 Tablet(s) PO daily 201410/11/2014 Inactive diltiazem 90 mg tablet RxNorm: 048981 1 Tablet(s) PO TID 201408/30/2015 Inactive warfarin 1 mg tablet RxNorm: 708521 1/2 Tablet(s) PO daily 3.5mg 08/05/2014 08/11/2014 Inactive taking with a 3mg to make 3.5mg tablets cyclobenzaprine 10 mg tablet RxNorm: 745791 1 Tablet(s) PO QHS 08/04/2014 11/01/2014 Inactive buspirone 10 mg tablet RxNorm: 303070 1 Tablet(s) PO QID 201408/21/2014 Inactive allopurinol 300 mg tablet RxNorm: 322908 1 Tablet(s) PO daily 08/04/2014 11/01/2014 Inactive clonazepam 0.5 mg tablet RxNorm: 664009 1 Tablet(s) PO daily 09/02/2014 Inactive omeprazole 20 mg capsule,delayed release RxNorm: 804471 1 Capsule(s) PO BID 08/04/2014 11/01/2014 Inactive atenolol 25 mg tablet RxNorm: 881828 1 Tablet(s) PO daily 201411/01/2014 Inactive warfarin 3 mg tablet RxNorm: 637503 1 Tablet(s) PO daily 201408/04/2014 Inactive diphenhydramine 2 % topical cream RxNorm: 7751652 1 Application TOP Q6 PRN 07/24/2014 01/29/2015 Inactive diltiazem 90 mg tablet RxNorm: 095437 1 Tablet(s) PO BID 201408/04/2014 Inactive cyclobenzaprine 10 mg tablet RxNorm: 856598 1 Tablet(s) PO QH 07/24/2014 08/03/2014 Inactive warfarin 2.5 mg tablet RxNorm: 088864 1 Tablet(s) PO daily 08/22/2014 Inactive [SAVINGS FOR NON-COVERED DRUGS -- BIN:[id number], PCN: ASPROD1, Group: XXXXX, ID# [id number], Questions: . THIS IS NOT INSURANCE.] losartan 25 mg tablet RxNorm: 750508 1 Tablet(s) PO daily 201401/29/2015 Inactive [SAVINGS FOR NON-COVERED DRUGS -- BIN:984621, PCN: ASPROD1, Group: XXXXX, ID # [id number], Questions: . THIS IS NOT INSURANCE.] isosorbide mononitrate oral RxNorm: 6057 oral No Start Date Active diltiazem ER 360 mg tablet,extended release 24 hr RxNorm: 909874 1 Tablet(s) PO daily No Start Date Active benazepril 10 mg tablet RxNorm: 244135 1 Tablet(s) PO daily No Start Date 07/14/2014 Inactive lisinopril 10 mg tablet RxNorm: 922212 1 Tablet(s) PO daily No Start Date 04/24/2016 Inactive clonazepam 0.5 mg tablet RxNorm: 637726 1 Tablet(s) PO daily No Start Date 08/03/2014 Inactive diltiazem 90 mg tablet RxNorm: 022721 1 Tablet(s) PO daily No Start Date 07/23/2014 Inactive atenolol 25 mg tablet RxNorm: 410610 1 Tablet(s) PO daily No Start Date 08/03/2014 Inactive buspirone 10 mg tablet RxNorm: 498135 1 Tablet(s) PO QID No Start Date 08/03/2014 Inactive omeprazole 20 mg capsule,delayed release RxNorm: 533193 1 Capsule(s) PO BID No Start Date 08/03/2014 Inactive allopurinol 300 mg tablet RxNorm: 096351 1 Tablet(s) PO daily No Start Date 08/03/2014 Inactive Xarelto 20 mg tablet RxNorm: 3092993 1 Tablet(s) PO daily No Start Date 03/03/2015 Inactive warfarin 2 mg tablet RxNorm: 907194 1 Tablet(s) PO daily No Start Date 07/16/2014 Inactive cyanocobalamin (vit B-12) 1,000 mcg/mL injection solution RxNorm: 390095 1 Milliliter(s) Inj monthly No Start Date Inactive cyclobenzaprine 10 mg tablet RxNorm: 967616 1 Tablet(s) PO BID No Start Date 07/23/2014 Inactive Eliquis 2.5 mg tablet RxNorm: 3037387 1 Tablet(s) PO daily No Start Date 03/03/2015 Inactive Medication Administered Medication Codes Instructions Start Date Status Kenalog 40 mg/mL suspension for injection RxNorm: 8289083 1Milliliter 01/30/2015 No longer Active ceftriaxone 500 mg solution for injection RxNorm: 2634477 10/14/2014 No longer Active Kenalog 40 mg/mL suspension for injection RxNorm: 8271279 Milliliter 10/14/2014 No longer Active Immunizations Vaccine [...] deficiency, unspecified ICD-10: E55.9 ICD-9: 268.9 03/31/2015 [facility] (current) use of anticoagulants ICD-10: Z79.01 ICD-9: [...] Item Item Code Result Date Comp Metabolic Yyj638 NA 138 mEq/L 09/29/2015 Comp Metabolic Ybj449 K 4.6 mEq/L 09/29/2015 Comp Metabolic Flu684 CL 102 mEq/L 09/29/2015 Comp Metabolic Mbq752 CO2 28.0 mEq/L 09/29/2015 Comp Metabolic Ste278 ANION GAP 13 09/29/2015 Comp Metabolic Dxu149 GLUCOSE 83 mg/dL 09/29/2015 Comp Metabolic Drz542 Creat 1.1 mg/dL 09/29/2015 Comp Metabolic Vwh088 eGFR 52 ml/min/1.73m2 09/29/2015 Comp Metabolic Pcd426 BUN 18 mg/dL 09/29/2015 Comp Metabolic Opw744 B/C Ratio 16.7 Ratio 09/29/2015 Comp Metabolic Oyl861 CALCIUM 9.6 mg/dL 09/29/2015 Comp Metabolic Mnm596 ALK PHOS 188 U/L 09/29/2015 Comp Metabolic Fsu631 AST(SGOT) 19 U/L 09/29/2015 Comp Metabolic Euy489 ALT(SGPT) 12 U/L 09/29/2015 Comp Metabolic Uif142 BILI T 0.6 mg/dL 09/29/2015 Comp Metabolic Uxj811 ALBUMIN 4.0 g/dL 09/29/2015 Comp Metabolic Ihn446 TPRO 6.6 g/dL 09/29/2015 Comp Metabolic Uny257 GLOB 2.6 g/dL 09/29/2015 Comp Metabolic Knf203 A/G Ratio 1.5 Ratio 09/29/2015 Comp Metabolic Kkj703 Osmo 277 mOsmo 09/29/2015 Cbc With Differential [...] 26.1 pg 09/29/2015 Cbc With Differential Ord2 [place]% 18.3 % 09/29/2015 Cbc With Differential Ord2 [...] 1.41 K/ul 09/29/2015 Cbc With Differential Ord2 [place] ABS# 1.8 K/ul 09/29/2015 Cbc With Differential Ord2 Eos ABS# 0.2 K/ul 09/29/2015 Cbc With Differential Ord2 Baso ABS# 0.1 K/ul 09/29/2015 Comp Metabolic Aiy206 NA 134 mEq/L 09/22/2015 Comp Metabolic Lqt873 K 4.7 mEq/L 09/22/2015 Comp Metabolic Qzv581 CL 98 mEq/L 09/22/2015 Comp Metabolic Qah159 CO2 26.0 mEq/L 09/22/2015 Comp Metabolic Nfr492 ANION GAP 15 09/22/2015 Comp Metabolic Fns483 GLUCOSE 83 mg/dL 09/22/2015 Comp Metabolic Nzm433 Creat 1.1 mg/dL 09/22/2015 Comp Metabolic Tea894 eGFR 52 ml/min/1.73m2 09/22/2015 Comp Metabolic Rsx144 BUN 19 mg/dL 09/22/2015 Comp Metabolic Ykf702 B/C Ratio 17.8 Ratio 09/22/2015 Comp Metabolic Sph014 CALCIUM 9.4 mg/dL 09/22/2015 Comp Metabolic Avw761 ALK PHOS 182 U/L 09/22/2015 Comp Metabolic Oak839 AST(SGOT) 30 U/L 09/22/2015 Comp Metabolic Enl817 ALT(SGPT) 16 U/L 09/22/2015 Comp Metabolic Jmp489 BILI T 0.8 mg/dL 09/22/2015 Comp Metabolic Zvy516 ALBUMIN 3.9 g/dL 09/22/2015 Comp Metabolic Czm364 TPRO 6.8 g/dL 09/22/2015 Comp Metabolic Dng075 GLOB 2.9 g/dL 09/22/2015 Comp Metabolic Xob313 A/G Ratio 1.3 Ratio 09/22/2015 Comp Metabolic Lio737 Osmo 270 mOsmo 09/22/2015 Cbc With Differential [...] 25.7 pg 09/22/2015 Cbc With Differential Ord2 [place]% 15.4 % 09/22/2015 Cbc With Differential Ord2 [...] 1.81 K/ul 09/22/2015 Cbc With Differential Ord2 [place] ABS# 1.7 K/ul 09/22/2015 Cbc With Differential [...] 16.5 % 06/02/2015 Cbc With Differential Ord2 [place]% 16.6 % 06/02/2015 Cbc With Differential Ord2 [...] 1.74 K/ul 06/02/2015 Cbc With Differential Ord2 [place] ABS# 1.8 K/ul 06/02/2015 Cbc With Differential Ord2 Eos ABS# 0.1 K/ul 06/02/2015 Cbc With Differential Ord2 Baso ABS# 0.0 K/ul 06/02/2015 Cbc With Differential Ord2 New Analyzer Notice Please note new ref ranges starting 03-11-2015 due to implemntation of new five part differential hematolgy analyzer. 06/02/2015 Pt [id number] PT 21.8 seconds 06/02/2015 Pt [id number] INR 2.0 06/02/2015 Pt Sxg5866 Low Intensity - 1.5-2.0 06/02/2015 Pt Kex1400 Mod intensity - 2.0-3.0 06/02/2015 Pt Fuy4752 Hi intensity - 3.0-4.0 06/02/2015 Comp Metabolic Hpq028 NA 132 mEq/L 06/02/2015 Comp Metabolic Ous169 K 4.4 mEq/L 06/02/2015 Comp Metabolic Vaj633 CL 94 mEq/L 06/02/2015 Comp Metabolic Wxr378 CO2 26.0 mEq/L 06/02/2015 Comp Metabolic Afp264 ANION GAP 16 06/02/2015 Comp Metabolic Mho196 GLUCOSE 97 mg/dL 06/02/2015 Comp Metabolic Zba377 Creat 1.2 mg/dL 06/02/2015 Comp Metabolic Fpn028 eGFR 46 ml/min/1.73m2 06/02/2015 Comp Metabolic Fqu763 BUN 19 mg/dL 06/02/2015 Comp Metabolic Tje971 B/C Ratio 15.8 Ratio 06/02/2015 Comp Metabolic Rcz143 CALCIUM 9.4 mg/dL 06/02/2015 Comp Metabolic Yov806 ALK PHOS 178 U/L 06/02/2015 Comp Metabolic Ljy654 AST(SGOT) 32 U/L 06/02/2015 Comp Metabolic Xlu169 ALT(SGPT) 31 U/L 06/02/2015 Comp Metabolic Wko069 BILI T 0.6 mg/dL 06/02/2015 Comp Metabolic Ljq772 ALBUMIN 4.0 g/dL 06/02/2015 Comp Metabolic Jyb240 TPRO 6.5 g/dL 06/02/2015 Comp Metabolic Twn098 GLOB 2.5 g/dL 06/02/2015 Comp Metabolic Xzs955 A/G Ratio 1.6 Ratio 06/02/2015 Comp Metabolic Bvw003 Osmo 267 mOsmo 06/02/2015 Vitamin D 25 Oh Xxz3802 VITAMIN D, 25 HYDROXY 61.20 ng/mL B12 Ynf359 B12 160.00 pg/ml 04/01/2015 Iron Ord72 Iron 39 ug/dl 04/01/2015 Tsh Ord6 hTSH II 1.87 uIU/mL 03/31/2015 Pt Ssi5871 PT 36.9 seconds 03/31/2015 Pt Prz9942 INR 3.9 03/31/2015 Pt Auj1505 Low Intensity - 1.5-2.0 03/31/2015 Pt Iiw7727 Mod intensity - 2.0-3.0 03/31/2015 Pt Qdn8984 Hi intensity - 3.0-4.0 03/31/2015 Comp Metabolic Zhd525 NA 131 mEq/L 03/31/2015 Comp Metabolic Xva379 K 5.3 mEq/L 03/31/2015 Comp Metabolic Dsk031 CL 97 mEq/L 03/31/2015 Comp Metabolic Isi870 CO2 24.0 mEq/L 03/31/2015 Comp Metabolic Gam739 ANION GAP 15 03/31/2015 Comp Metabolic Qxf306 GLUCOSE 84 mg/dL 03/31/2015 Comp Metabolic Rhh731 Creat 1.3 mg/dL 03/31/2015 Comp Metabolic Fhv874 eGFR 42 ml/min/1.73m2 03/31/2015 Comp Metabolic Ycl847 BUN 26 mg/dL 03/31/2015 Comp Metabolic Eqi371 B/C Ratio 20.2 Ratio 03/31/2015 Comp Metabolic Uic110 CALCIUM 9.4 mg/dL 03/31/2015 Comp Metabolic Cbi163 ALK PHOS 172 U/L 03/31/2015 Comp Metabolic Bik793 AST(SGOT) 21 U/L 03/31/2015 Comp Metabolic Exy512 ALT(SGPT) 27 U/L 03/31/2015 Comp Metabolic Zlc682 BILI T 0.5 mg/dL 03/31/2015 Comp Metabolic Ges247 ALBUMIN 4.0 g/dL 03/31/2015 Comp Metabolic Ckf698 TPRO 6.8 g/dL 03/31/2015 Comp Metabolic Obu368 GLOB 2.8 g/dL 03/31/2015 Comp Metabolic Dfk043 A/G Ratio 1.4 Ratio 03/31/2015 Comp Metabolic Vgh423 Osmo 267 mOsmo 03/31/2015 Cbc With Differential [...] 28.3 pg 03/31/2015 Cbc With Differential Ord2 [place]igo% 14.0 % 03/31/2015 Cbc With Differential Ord2 [...] 1.62 K/ul 03/31/2015 Cbc With Differential Ord2 [place] ABS# 1.6 K/ul 03/31/2015 Cbc With Differential [...] Magnesium Ord90 Mag 2.0 mg/dL 09/19/2014 Pt Jdu1351 PT 29.1 seconds 09/19/2014 Pt Urh7864 INR 2.9 09/19/2014 Pt Lwc0745 Low Intensity - 1.5-2.0 09/19/2014 Pt Qpo5375 Mod intensity - 2.0-3.0 09/19/2014 Pt Crj5684 Hi intensity - 3.0-4.0 09/19/2014 Tsh Ord6 hTSH II 1.40 uIU/mL 09/19/2014 Lipid Ord30 CHOL 216 mg/dL 09/19/2014 Lipid Ord30 HDL 78.0 mg/dl 09/19/2014 Lipid Ord30 TRIG 85 mg/dL 09/19/2014 Lipid Ord30 LDL 121 mg/dL 09/19/2014 Lipid Ord30 C/HDL 2.8 Ratio 09/19/2014 Vitamin D 25 Oh Okn0512 VITAMIN D, 25 HYDROXY 14.13 ng/mL Comp Metabolic Biv303 NA 134 mEq/L 09/19/2014 Comp Metabolic Jcn882 K 4.7 mEq/L 09/19/2014 Comp Metabolic Nye834 CL 98 mEq/L 09/19/2014 Comp Metabolic Fub926 CO2 27.0 mEq/L 09/19/2014 Comp Metabolic Bpg545 ANION GAP 14 09/19/2014 Comp Metabolic Try999 GLUCOSE 94 mg/dL 09/19/2014 Comp Metabolic Yri746 Creat 1.1 mg/dL 09/19/2014 Comp Metabolic Kmg665 eGFR 49 ml/min/1.73m2 09/19/2014 Comp Metabolic Jzc151 BUN 14 mg/dL 09/19/2014 Comp Metabolic Cdl825 B/C Ratio 12.3 Ratio 09/19/2014 Comp Metabolic Sek697 CALCIUM 9.7 mg/dL 09/19/2014 Comp Metabolic Tor758 ALK PHOS 150 U/L 09/19/2014 Comp Metabolic Ygj564 AST(SGOT) 16 U/L 09/19/2014 Comp Metabolic Oqa347 ALT(SGPT) 9 U/L 09/19/2014 Comp Metabolic Cup599 BILI T 0.8 mg/dL 09/19/2014 Comp Metabolic Aup542 ALBUMIN 3.9 g/dL 09/19/2014 Comp Metabolic Trw905 TPRO 6.8 g/dL 09/19/2014 Comp Metabolic Qid634 GLOB 2.9 g/dL 09/19/2014 Comp Metabolic Lsh302 A/G Ratio 1.3 Ratio 09/19/2014 Comp Metabolic Qhq579 Osmo 268 mOsmo 09/19/2014 Cbc With Differential [...] lips 03/07/2017 None Full Exam - General 1994 Ears/Nose/Throat lips/teeth/gingiva Overall: normal dentition 03/07/2017 None Full Exam - General 1994 Ears/Nose/Throat lips/teeth/gingiva Overall: benign gingiva 03/07/2017 None Full Exam - General 1995 Ears/Nose/Throat lips/teeth/gingiva Overall: no masses 03/07/2017 None Full Exam - General 1995 Ears/Nose/Throat oral cavity/pharynx/larynx Overall: oral mucosa clear [...] dentition 04/25/2016 None Full Exam - General 1995 Ears/Nose/Throat lips/teeth/gingiva Overall: benign gingiva 04/25/2016 None Full Exam - General 1994 Ears/Nose/Throat lips/teeth/gingiva Overall: no masses 04/25/2016 None Full Exam - General 1994 Ears/Nose/Throat oral cavity/pharynx/larynx Overall: oral mucosa clear 04/25/2016 None Full Exam - General 1995 Ears/Nose/Throat [...] IM Formatting Model/CDA Sections, Assigned to/Indira Ibanez SNOMED CT: [id number] CPT-4: 31853Kpvwqvv 12/10/2015 TRIAMCINOLONE ACET INJ NOS CPT-4: J3301 01/30/2015 URINALYSIS NONAUTO W/O SCOPE CPT-4: 19037 11/07/2014 ROCEPHIN, PER 250 MG CPT-4: J0696 10/14/2014 TRIAMCINOLONE ACET INJ NOS CPT-4: J3301 10/14/2014 Vital Signs Date Vital 03/07/2017 Blood Pressure 1: 108/52 Code : 8480-6 BMI: 27.6 Code : 04502-7 Heart Rate 1 : 72 bpm Height: 5'2" SpO2: 96% Weight: 151 lbs 01/24/2017 Blood Pressure 1: 126/60 Code : 8480-6 BMI: 27.1 Code : 85339-9 Heart Rate 1 : 60 bpm Height: [...] Code : 8480-6 BMI: 26.8 Code : 40285-3 Heart Rate 1 : 59 bpm Height: 5'2" SpO2: 97% Weight: 146 lbs 8 oz 05/10/2016 Blood Pressure 1: 120/56 Code : 8480-6 BMI: 27.1 Code : 91188-6 Heart Rate 1 : 63 bpm Height: 5'2" SpO2: 97% Weight: 148 lbs 04/25/2016 Blood Pressure 1: 134/66 Code : 8480-6 BMI: 24.9 Code : 09831-0 Heart Rate 1 : 118 bpm Height: 5'2" SpO2: 93% Temperature: 36.8 (C) / 98.3 (F) Weight: 136 lbs 01/14/2016 Blood Pressure 1: 132/78 Code : 8480-6 BMI: 25.6 Code : 86711-9 Heart Rate 1 : 97 bpm Height: 5'2" SpO2: 95% Weight: 140 lbs 12/10/2015 Blood Pressure 1: 118/72 Code : 8480-6 BMI: 26.2 Code : 30221-0 Heart Rate 1 : 68 bpm Height: 5'2" SpO2: 95% Weight: 143 lbs 11/12/2015 Blood Pressure 1: 140/80 Code : 8480-6 BMI: 25.6 Code : 84670-6 Heart Rate 1 : 77 bpm Height: 5'2" SpO2: 93% Weight: 140 lbs 10/08/2015 Blood Pressure 1: 132/60 Code : 8480-6 BMI: 26.2 Code : 43913-6 Heart Rate 1 : 77 bpm Height: 5'2" SpO2: 96% Weight: 143 lbs 09/29/2015 Blood Pressure 1: 130/62 Code : 8480-6 BMI: 27.1 Code : 63910-1 Heart Rate 1 : 86 bpm Height: 5'2" SpO2: 93% Weight: 148 lbs 09/22/2015 Blood Pressure 1: 164/72 Code : 8480-6 BMI: 28.2 Code : 75440-8 Heart Rate 1 : 79 bpm Height: 5'2" SpO2: 92% Weight: 154 lbs 07/21/2015 Blood Pressure 1: 124/70 Code : 8480-6 BMI: 24.5 Code : 73654-4 Heart Rate 1 : 71 bpm Height: 5'2" SpO2: 98% Weight: 134 lbs 06/23/2015 Blood Pressure 1: 122/68 Code : 8480-6 BMI: 25.4 Code : 07682-3 Heart Rate 1 : 78 bpm Height: 5'2" SpO2: 92% Weight: 139 lbs 06/12/2015 Blood Pressure 1: 154/62 Code : 8480-6 BMI: 27.4 Code : 23189-6 Heart Rate 1 : 87 bpm Height: 5'2" SpO2: 94% Weight: 150 lbs 06/02/2015 Blood Pressure 1: 140/68 Code : 8480-6 Heart Rate 1: 90 bpm SpO2: 91% Weight: 142 lbs 03/31/2015 Blood Pressure 1: 120/56 Code : 8480-6 BMI: 23.6 Code : 93103-4 Heart Rate 1 : 82 bpm Height: 5'2" SpO2: 98% Weight: 129 lbs 01/30/2015 Blood Pressure 1: 108/62 Code : 8480-6 BMI: 22.1 Code : 16866-5 Heart Rate 1 : 8299 bpm Height: 5'2 " SpO2: 99% Weight: 121 lbs 12/22/2014 Blood Pressure 1: 130/70 Code : 8480-6 BMI: 21.8 Code : 18724-4 Heart Rate 1 : 106 bpm Height: 5'2" SpO2: 98% Weight: 119 lbs 10/29/2014 Blood Pressure 1: 118/58 Code : 8480-6 BMI: 23.2 Code : 82522-9 Heart Rate 1 : 74 bpm Height: 5'2" SpO2: 93% Weight: 127 lbs 10/14/2014 Blood Pressure 1: 128/64 Code : 8480-6 BMI: 22.9 Code : 56981-0 Heart Rate 1 : 79 bpm Height: 5'2" SpO2: 93% Temperature: 35.9 (C) / 96.6 (F) Weight: 125 lbs 09/19/2014 Blood Pressure 1: 132/72 Code : 8480-6 BMI: 22.9 Code : 43359-4 Heart Rate 1 : 84 bpm Height: 5'2" SpO2: 96% Weight: 125 lbs 08/22/2014 Blood Pressure 1: 124/72 Code : 8480-6 BMI: 23.0 Code : 47160-6 Heart Rate 1 : 64 bpm Height: 5'2" Weight: 126 lbs 08/04/2014 Blood Pressure 1: 126/86 Code : 8480-6 BMI: 23.6 Code : 04371-9 Height: 5'2" Respiratory Rate: 20 bpm Weight: 129 lbs 07/24/2014 Blood Pressure 1: 116/72 Code : 8480-6 BMI: 23.6 Code : 55890-8 Heart Rate 1 : 74 bpm Height: 5'2" Weight: 129 lbs 07/15/2014 Blood Pressure 1: 132/78 Code : 8480-6 BMI: 24.1 Code : 53228-9 Heart Rate 1 : 74 bpm Height: [...] data Encounters Encounter Performer Location Codes Date ([id number]) 78717 EST. PATIENT, LEVEL IV Diagnosis: Essential (primary) hypertension[ICD10: I10] Diagnosis: Paroxysmal atrial fibrillation[ICD10: I48.0] Diagnosis: Generalized anxiety disorder[ICD10: F41.1] Diagnosis: Localized edema[ICD10: R60.0] [facility] CPT- 4: 98989 03/07/2017 ([id number]) 25424 EST. PATIENT, LEVEL IV Diagnosis: Generalized anxiety disorder[ICD10: F41.1] Diagnosis: Major depressive disorder, single episode, unspecified[ICD10: F32.9] Diagnosis: Essential (primary) hypertension[ICD10: I10] Diagnosis: Paroxysmal atrial fibrillation[ICD10: I48.0] [facility] CPT-4: 36581 01/24/2017 62844 EST. PATIENT, LEVEL IV Diagnosis: Other chest pain[ICD10: R07.89] Diagnosis: Other malaise[ICD10: R53.81] Opal Daigle MD, [facility] CPT-4 : 30498 09/29/2016 ([id number]) 79603 EST. PATIENT, LEVEL IV Diagnosis: Essential (primary) hypertension[ICD10: I10] Diagnosis: Paroxysmal atrial fibrillation[ICD10: I48.0] Diagnosis: Localized edema[ICD10: R60.0] Diagnosis: Generalized anxiety disorder[ICD10: F41.1] Diagnosis: Low back pain[ICD10: M54.5] Merle Daigle MD, [facility] CPT-4: 98686 09/13/2016 ([id number]) 00117 EST. PATIENT, LEVEL III Diagnosis: Essential (primary) hypertension[ICD10: I10] Diagnosis: Paroxysmal atrial fibrillation[ICD10: I48.0] Merle Daigle MD, [facility] CPT-4: 73608 05/31/2016 ([id number]) 47846 EST. PATIENT, LEVEL III Diagnosis: Essential (primary) hypertension[ICD10: I10] Diagnosis: Localized edema[ICD10: R60.0] Merle Daigle MD, [facility] CPT-4: 39731 05/10/2016 ([id number]) 01491 EST. PATIENT, LEVEL IV Diagnosis: Paroxysmal atrial fibrillation[ICD10: I48.0] Diagnosis: Essential (primary) hypertension[ICD10: I10] Diagnosis: Generalized anxiety disorder[ICD10: F41.1] Merle Daigle MD, [facility] CPT-4: 79717 04/25/2016 ([id number]) 82133 EST. PATIENT, LEVEL IV Diagnosis: Generalized anxiety disorder[ICD10: F41.1] Diagnosis: Essential (primary) hypertension[ICD10: I10] Diagnosis: Paroxysmal atrial fibrillation[ICD10: I48.0] Diagnosis: Localized edema[ICD10: R60.0] Diagnosis: Acute recurrent maxillary sinusitis[ICD10: J01.01] Merle Daigle MD, [facility] CPT-4: 88747 01/14/2016 ([id number]) 09984 EST. PATIENT, LEVEL IV Diagnosis: Essential (primary) hypertension[ICD10: I10] Diagnosis: Generalized anxiety disorder[ICD10: F41.1] Diagnosis: Localized edema[ICD10: R60.0] Diagnosis: Encounter for immunization[ICD10: Z23] Merle Daigle MD, [facility] CPT-4: 74104 12/10/2015 ([id number]) 21377 EST. PATIENT, LEVEL III Diagnosis: Essential (primary) hypertension[ICD10: I10] Diagnosis: Localized edema[ICD10: R60.0] Merle Daigle MD, [facility] CPT-4: 99254 11/12/2015 ([id number]) 08636 EST. PATIENT, LEVEL III Diagnosis: Essential (primary) hypertension[ICD10: I10] Diagnosis: Localized edema[ICD10: R60.0] Merle Daigle MD, [facility] CPT-4: 27545 10/08/2015 ([id number]) 85352 EST. PATIENT, LEVEL III Diagnosis: Localized edema[ICD10: R60.0] Diagnosis: Essential (primary) hypertension[ICD10: I10] Merle Daigle MD, [facility] CPT-4: 41762 09/29/2015 ([id number]) 19214 EST. PATIENT, LEVEL IV Diagnosis: Localized edema[ICD10: R60.0] Diagnosis: Essential (primary) hypertension[ICD10: I10] Diagnosis: Paroxysmal atrial fibrillation[ICD10: I48.0] Merle Daigle MD, [facility] CPT-4: 06551 09/22/2015 ([id number]) 91960 EST. PATIENT, LEVEL III Diagnosis: Essential (primary) hypertension[ICD10: I10] Diagnosis: Paroxysmal atrial fibrillation[ICD10: I48.0] Merle Daigle MD, [facility] CPT-4: 03853 07/21/2015 ([id number]) 64776 EST. 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 PATIENT, LEVEL IV Diagnosis: Essential (primary) hypertension[ICD10: I10] Diagnosis: Paroxysmal atrial fibrillation[ICD10: I48.0] Diagnosis: Localized edema[ICD10: R60.0] Diagnosis: Encounter for therapeutic drug level monitoring[ICD10: Z51.81] Merle Daigle MD, [facility] CPT-4: 48877 06/02/2015 ([id number]) 62872 EST. 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 PATIENT, LEVEL III Diagnosis: Essential (primary) hypertension[ICD10: I10] Diagnosis: Allergic rhinitis due to pollen[ICD10: J30.1] Merle Daigle MD, [facility] CPT-4: 59558 01/30/2015 [id number] EST. PATIENT, LEVEL III Diagnosis: Localized edema[ICD10: R60.0] Diagnosis: Diarrhea, unspecified[ICD10: R19.7] Veronica Daigle MD, [facility] CPT-4: 89539 12/22/2014 ([id number]) 75768 EST. PATIENT, LEVEL IV Diagnosis: DYSPHAGIA, PHARYNGEAL[ICD9: 787.23] Diagnosis: Low back pain[ICD9: 724.2] Diagnosis: Cough[ICD9: 786.2] Diagnosis: Anticoagulated on Coumadin[ICD9: V58.83] Diagnosis: MUSCLE WEAKNESS-GENERAL[ICD9: 728.87] Diagnosis: EDEMA[ICD9: 782.3] Veronica Daigle MD, [facility] CPT-4: 07063 10/29/2014 ([id number]) 28527 EST. PATIENT, LEVEL IV Diagnosis: Low back pain[ICD9: 724.2] Diagnosis: Pneumonia[ICD9: 486] Diagnosis: Cough[ICD9: 786.2] Diagnosis: Anticoagulated on Coumadin[ICD9: V58.83] Diagnosis: DYSPHAGIA, NOS[ICD9: 787.20] Diagnosis: MUSCLE WEAKNESS-GENERAL[ICD9: 728.87] Merle Daigle MD, [facility] CPT-4: 07743 10/14/2014 ([id number]) 70627 EST. PATIENT, LEVEL IV Diagnosis: ESSENTIAL HYPERTENSION[ICD9: 401.9] Diagnosis: ESOPHAGEAL REFLUX[ICD9: 530.81] Diagnosis: SLEEP RELATED LEG CRAMPS[ICD9: 327.52] Diagnosis: Atrial fibrillation[ICD9: 427.31] Diagnosis: Anticoagulated on Coumadin[ICD9: V58.83] Diagnosis: VITAMIN D DEFICIENCY[ICD9: 268.9] [facility] CPT-4: 45459 09/19/2014 ([id number]) 93762 EST. PATIENT, LEVEL III Diagnosis: EDEMA[ICD9: 782.3] Diagnosis: LONG-TERM USE ANTICOAGUL[ICD9: V58.61] [facility] CPT-4: 83790 08/22/2014 ([id number]) 19734 EST. PATIENT, LEVEL IV Diagnosis: Skin irritation[ICD9: 709.9] Diagnosis: ESSENTIAL HYPERTENSION[ICD9: 401.9] Diagnosis: Anticoagulated on Coumadin[ICD9: V58.83] Diagnosis: DEPRESSIVE DISORDER NEC[ICD9: 311] [facility] CPT-4: 02145 08/04/2014 ([id number]) 73581 EST. PATIENT, LEVEL III Diagnosis: Skin irritation[ICD9: 709.9] [facility] CPT- 4: 31242 07/24/2014 ([id number]) OFFICE/OUTPATIENT VISIT NEW Diagnosis: ESSENTIAL HYPERTENSION[ICD9: 401.9] Diagnosis: COUGH[ICD9: 786.2] Diagnosis: Atrial fibrillation[ICD9: 427.31] Diagnosis: LONG-TERM USE ANTICOAGUL[ICD9: V58.61] Diagnosis: DEPRESSIVE DISORDER NEC[ICD9: 311] [facility] CPT-4: 06833 07/15/2014 Plan of Care Planned Activity Notes Codes Status Date Appointment: [phone] [place] (15 min) Moderate 03/07/2017 Patient Education: Patient Medication Summary Completed 03/07/2017 Appointment: Merle Esparza WPtel: [phone] [phone] [place] (30 min) Complex 01/24/2017 Patient Education: Patient Medication Summary Completed 01/24/2017 Patient Education: Hypertension Completed 01/24/2017 App[facility]ment[phone] [place] ([place] min) Moderate 09/29/2016 Appointment: [phone] [facility] [place] ([place] min) Moderate 09/29/2016 Patient Education: Patient Medication Summary Completed 09/29/2016 Appointment: Merle Esparza WPtel: [phone] [phone] [place] (30 min) Complex 09/13/2016 Patient Education: Patient Medication Summary Completed 09/13/2016 Appointment: [facility] [phone] [phone] [place] (30 min) Complex 05/31/2016 Patient Education: Patient Medication Summary Completed 05/31/2016 Appointment: [facility] [phone] [phone] [place] (30 min) Complex 05/10/2016 Patient Education: Patient Medication Summary Completed 05/10/2016 Patient Education: Hypertension Completed 05/10/2016 Appointment: [facility] [phone] [phone] [place] (15 min) Moderate 05/09/2016 Appointment: [phone] [phone] [place] (30 min) Complex 04/25/2016 Patient Education: Patient Medication Summary Completed 04/25/2016 Patient Education: Hypertension Completed 04/25/2016 Appointment: [facility] [phone] [phone] [place] (15 min) Moderate 02/12/2016 Appointment: Merle Esparza WPtel: [phone] [phone] [place] (30 min) Complex 01/14/2016 Patient Education: Patient Medication Summary Completed 01/14/2016 Patient Education: Hypertension Completed 01/14/2016 Appointment: Merle Esparza WPtel: [phone] [place] (30 min) Complex 12/10/2015 Patient Education: Patient Medication Summary Completed 12/10/2015 Patient Education: Hypertension Completed 12/10/2015 Appointment: Merle Esparza WPtel: [phone] [place] (15 min) Moderate 11/12/2015 Patient Education: Patient Medication Summary Completed 11/12/2015 Appointment: Mer[facility] Esparza [facility]Ptel[facility] [phone] [phone] [place] (15 min) Moderate 10/22/2015 Appointment: [facility] Espar[facility] [phone] [phone] [place] (15 min) Moderate 10/08/2015 Patient Education: Patient Medication Summary Completed 10/08/2015 Appointment: Merle Esparza WPtel: [facility]5 [phone] [place] (15 min) Moderate 09/29/2015 Patient Education: Patient Medication Summary Completed 09/29/2015 Patient Education: Hypertension Completed 09/29/2015 Appointment: Merle Esparza WPtel: [phone] (30 min) Complex 09/22/2015 Patient Education: Patient Medication Summary Completed 09/22/2015 Patient Education: Hypertension Completed 09/22/2015 Patient Education: Patient Medication Summary Completed 07/21/2015 Appointment: Merle Esparza WPtel: [phone] (30 min) Complex 06/23/2015 Patient Education: Patient [...] Hypertension Completed 01/30/2015 Appointment: Veronica Daigle WPtel: [facility] ([facility] min) Complex 01/28/2015 Appointment: (30 min) Complex 01/27/2015 Appointment: Merle Esparza WPtel: [address] [place], [place] [phone] (30 min) Complex 12/22/2014 Patient Education: Patient [...] Care Plan: COMPLETE CBC AUTOMATED LOINC : 49104-8 Ordered 08/22/2014 Appointment: (10 min) Simple 08/04/2014 Patient Education: Patient Medication Summary Completed 08/04/2014 Patient Education: Hypertension Completed 08/04/2014 Appointment: Yumiko Dickinson WPtel: [facility] (10 min) Simple 07/24/2014 Patient Education: Patient Medication Summary Completed 07/24/2014 Appointment: [phone] [place] (S[facility] New Patient 07/15/2014 Patient Education: Patient Medication Summary Completed 07/15/2014 Patient Education: Hypertension Completed 07/15/2014 Instructions No Instructions
--- OUTSIDE RECORDS SUMMARY | 2017-04-05 11:16 | XMS REPORT | CCD ---
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 Name Role Phone PP Unavailable CCM Unavailable Summary Purpose Interface Exchange Insurance Providers Payer name Policy type / Coverage type Covered alliance party ID Effective Begin Date Effective End Date WPS Medicare Part B Medicare Part B [id number] Unknown Unknown Family history Mother Diagnosis Age At Onset Hypertension Unknown Heart Attack Unknown Social History Social History Element Codes Description Effective Dates Marital status Unknown 07/15/2014 Marital status Unknown 07/15/2014 Number of children Unknown 0 07/15/2014 Number of children Unknown 0 07/15/2014 Employment Unknown Retired 07/15/2014 Employment Unknown Retired 07/15/[address]: 408875187 Has never smoked or chewed tobacco 07/15/[address]: 844392867 Has never smoked or chewed tobacco 07/15/[address]: 991338654 Never drinks alcohol 07/15/[address]: 126893907 Never drinks alcohol 07/15/2014 Allergies, Adverse Reactions, [...] ICD-9: V58.83 ICD-10: Z51.81 Active 06/01/2015 Unknown shelter (current) use of anticoagulants ICD-9: V58.61 ICD-10: [...] monitoring ICD-9: V58.83 ICD-10: Z51.81 06/01/2015 Active shelter (current) use of anticoagulants ICD-9: V58.61 ICD-10: [...] Start Date Stop Date Status Fill Instructions potassium chloride ER 10 mEq tablet,extended release RxNorm: 704670 TAKE TWO TABLETS BY MOUTH THREE TIMES A DAY 03/27/2017 08/23/2017 Active Tamiflu 75 mg capsule RxNorm: 748338 1 Capsule(s) PO BID 201703/27/2017 Inactive Zofran 4 mg tablet RxNorm: 460724 1 Tablet(s) PO QID as needed nausea 03/23/2017 06/20/2017 Active Zofran 4 mg tablet RxNorm: 379669 1 Tablet(s) PO QID as needed nausea 03/23/2017 03/22/2017 Inactive Tamiflu 75 mg capsule RxNorm: 524135 1 Capsule(s) PO BID 201703/22/2017 Inactive lisinopril 10 mg tablet RxNorm: 242365 TAKE ONE-HALF TABLET BY MOUTH DAILY 03/10/2017 06/02/2018 Active metolazone 5 mg tablet RxNorm: 505166 1 Tablet(s) PO TIW 201703/01/2018 Active hydrocodone 7.5 mg-acetaminophen 325 mg tablet RxNorm: 741742 1-2 Tablet(s) PO Q4- 6H as needed pain 02/23/2017 No Stop Date Active omeprazole 20 mg capsule,delayed release RxNorm: 932321 Capsule(s) TAKE ONE CAPSULE BY MOUTH TWICE A DAY 02/08/2017 Active metolazone 5 mg tablet RxNorm: 128340 TAKE 1 TABLET BY MOUTH TWICE WEEKLY 02/08/2017 03/06/2017 Inactive Lexapro 5 mg tablet RxNorm: 518095 1 Tablet(s) PO QPM 201603/06/2017 Inactive hydrocodone 7.5 mg-acetaminophen 325 mg tablet RxNorm: 124656 1-2 Tablet(s) PO Q4- 6H as needed pain 01/16/2017 02/22/2017 Inactive Lasix 40 mg tablet RxNorm: 282291 TAKE ONE TABLET BY MOUTH DAILY 01/11/2017 10/07/2017 Active metoprolol tartrate 25 mg tablet RxNorm: 455584 TAKE 1/2 TABLET BY MOUTH TWO TIMES A DAY 01/11/2017 07/09/2017 Active allopurinol 300 mg tablet RxNorm: 983155 TAKE ONE TABLET BY MOUTH DAILY 01/09/2017 06/07/2017 Active hydrocodone 7.5 mg-acetaminophen 325 mg tablet RxNorm: 644929 1-2 Tablet(s) PO Q4- 6H as needed pain 12/06/2016 01/15/2017 Inactive lisinopril 10 mg tablet RxNorm: 164332 TAKE ONE-HALF TABLET BY MOUTH DAILY 12/02/2016 03/09/2017 Inactive buspirone 10 mg tablet RxNorm: 813029 TAKE ONE TABLET BY MOUTH THREE TIMES A DAY 10/25/2016 01/22/2017 Inactive buspirone 10 mg tablet RxNorm: 795602 TAKE ONE TABLET BY MOUTH THREE TIMES A DAY 10/25/2016 10/24/2016 Inactive hydrocodone 7.5 mg-acetaminophen 325 mg tablet RxNorm: 900870 1-2 or 2 Tablet(s) PO Q4-6H as needed pain 10/25/20162016 Inactive cyanocobalamin (vit B-12) 1,000 mcg/mL injection solution RxNorm: 431626 INJECT 1 ML INTRAMUSCULARLY 2 TIMES A MONTH FOR 2 MONTHS, THEN ONCE A MONTH THEREAFTER 10/24/2016 02/12/2017 Inactive metolazone 5 mg tablet RxNorm: 188325 TAKE 1 TABLET BY MOUTH TWICE WEEKLY 09/23/2016 01/12/2017 Inactive hydrocodone 7.5 mg-acetaminophen 325 mg tablet RxNorm: 846352 1-2 or 2 Tablet(s) PO Q4-6H as needed pain 09/13/20162016 Inactive Keflex 500 mg capsule RxNorm: 274467 1 Capsule(s) PO TID 201609/15/2016 Inactive Take with a probiotic BID Keflex 500 mg capsule RxNorm: 597830 1 Capsule(s) PO TID 201609/08/2016 Inactive Take with a probiotic BID metoprolol tartrate 25 mg tablet RxNorm: 018008 TAKE 1/2 TABLET BY MOUTH TWO TIMES A DAY 09/07/2016 01/04/2017 Inactive potassium chloride ER 10 mEq tablet,extended release RxNorm: 950722 TAKE TWO TABLETS BY MOUTH THREE TIMES A DAY 09/01/2016 02/27/2017 Inactive hydrocodone 7.5 mg-acetaminophen 325 mg tablet RxNorm: 918170 1 or 2 Tablet(s) PO Q4-6H as needed pain 08/31/20162016 Inactive omeprazole 20 mg capsule,delayed release RxNorm: 636094 TAKE ONE CAPSULE BY MOUTH TWICE A DAY 08/24/2016 02/07/2017 Inactive hydrocodone 7.5 mg-acetaminophen 325 mg tablet RxNorm: 185697 1 or 2 Tablet(s) PO Q4-6H as needed pain 08/05/20162016 Inactive lisinopril 10 mg tablet RxNorm: 405653 TAKE ONE-HALF TABLET BY MOUTH DAILY 07/28/2016 12/01/2016 Inactive hydrocodone 7.5 mg-acetaminophen 325 mg tablet RxNorm: 897711 1 or 2 Tablet(s) PO Q4-6H as needed pain 07/05/20162016 Inactive allopurinol 300 mg tablet RxNorm: 749084 TAKE ONE TABLET BY MOUTH DAILY 06/16/2016 12/12/2016 Inactive metoprolol tartrate 25 mg tablet RxNorm: 380463 TAKE 1/2 TABLET BY MOUTH TWO TIMES A DAY 06/16/2016 08/14/2016 Inactive buspirone 10 mg tablet RxNorm: 079000 TAKE ONE TABLET BY MOUTH THREE TIMES A DAY 06/15/2016 10/12/2016 Inactive hydrocodone 7.5 mg-acetaminophen 325 mg tablet RxNorm: 991539 1 or 2 Tablet(s) PO Q4-6H as needed pain 06/07/20162016 Inactive metoprolol tartrate 25 mg tablet RxNorm: 532361 1/2 Tablet(s) PO QPM 05/10/2016 06/08/2016 Inactive lisinopril 10 mg tablet RxNorm: 936849 1/2 Tablet(s) PO daily 04/26/2016 07/27/2016 Inactive hydrocodone 7.5 mg-acetaminophen 325 mg tablet RxNorm: 492588 1 or 2 Tablet(s) PO Q4-6H as needed pain 04/25/20162016 Inactive lisinopril 10 mg tablet RxNorm: 899255 1/2 Tablet(s) PO daily 04/25/2016 04/25/2016 Inactive metoprolol tartrate 25 mg tablet RxNorm: 173755 1/2 Tablet(s) PO BID 04/25/2016 05/09/2016 Inactive allopurinol 300 mg tablet RxNorm: 959508 TAKE ONE TABLET BY MOUTH DAILY 04/19/2016 06/15/2016 Inactive metolazone 5 mg tablet RxNorm: 060043 TAKE 1 TABLET BY MOUTH TWICE WEEKLY 04/19/2016 09/05/2016 Inactive warfarin 5 mg tablet RxNorm: 165010 1 Tablet(s) PO daily TAKE ONE TABLET BY MOUTH DAILY 03/21/2016 03/15/[address] Echevarria manages potassium chloride ER 10 mEq tablet,extended release RxNorm: 020360 2 Tablet(s) PO TID 03/21/2016 08/17/2016 Inactive potassium chloride ER 10 mEq tablet,extended release(part/ cryst) RxNorm: 2456614 2 Tablet(s) PO TID 03/11/2016 03/20/2016 Inactive Xanax 0.25 mg tablet RxNorm: 100584 1 Tablet(s) PO TID as needed anxiety 03/10/2016 04/08/2016 Inactive Xanax 0.25 mg tablet RxNorm: 790347 1 Tablet(s) PO TID as needed anxiety 03/10/2016 04/06/2016 Inactive hydrocodone 7.5 mg-acetaminophen 325 mg tablet RxNorm: 481011 1 or 2 Tablet(s) PO Q4-6H as needed pain 02/26/20162016 Inactive Flonase Allergy Relief 50 mcg/actuation nasal spray, suspension RxNorm: 9610115 1 Simon NASAL each nare daily 01/19/2016 03/18/2016 Inactive cefdinir 300 mg capsule RxNorm: 240458 1 Capsule(s) PO BID 01/23/2016 Inactive take probiotic BID x 7 days Flonase Allergy Relief 50 mcg/actuation nasal spray, suspension RxNorm: 3998180 1 Simon NASAL each nare daily 01/19/2016 01/18/2016 Inactive allopurinol 300 mg tablet RxNorm: 931979 TAKE ONE TABLET BY MOUTH DAILY 01/18/2016 04/16/2016 Inactive Lasix 40 mg tablet RxNorm: 586213 1 Tablet(s) PO daily 201501/07/2017 Inactive (this was only twice daily x1 week) now it's daily cefdinir 300 mg capsule RxNorm: 332889 1 Capsule(s) PO BID 01/17/2016 Inactive take probiotic BID x 7 days cefdinir 300 mg capsule RxNorm: 303698 1 Capsule(s) PO BID 01/10/2016 Inactive buspirone 10 mg tablet RxNorm: 893083 TAKE ONE TABLET BY MOUTH THREE TIMES A DAY 01/11/2016 06/08/2016 Inactive hydrocodone 7.5 mg-acetaminophen 325 mg tablet RxNorm: 588902 1 or 2 Tablet(s) PO Q4-6H as needed pain 12/28/20152015 Inactive potassium chloride ER 10 mEq tablet,extended release(part/ cryst) RxNorm: 6935950 2 po TID x 2 days then 2 po BID Tablet(s) 12/28/2015 03/10/2016 Inactive potassium chloride ER 10 mEq tablet,extended release(part/ cryst) RxNorm: 5738261 TAKE ONE TABLET BY MOUTH TWICE A DAY FOR 1 WEEK THEN RETURN TO DAILY 12/28/2015 12/27/2015 Inactive meclizine 25 mg tablet RxNorm: 073002 1 Tablet(s) PO BID PRN No Stop Date Active potassium chloride ER 10 mEq tablet,extended release(part/ cryst) RxNorm: 7494431 1 Tablet(s) PO TID 12/08/2015 03/10/2016 Inactive potassium chloride ER 10 mEq tablet,extended release(part/ cryst) RxNorm: 0927362 2 Tablet(s) PO daily 11/26/20152015 Inactive cyanocobalamin (vit B-12) 1,000 mcg/mL injection solution RxNorm: 682565 INJECT 1 ML INTRAMUSCULARLY 2 TIMES A MONTH FOR 2 MONTHS, THEN ONCE A MONTH THEREAFTER 11/26/2015 04/23/2016 Inactive potassium chloride ER 10 mEq tablet,extended release(part/ cryst) RxNorm: 6916231 3 Tablet(s) PO daily 11/23/20152015 Inactive Lasix 40 mg tablet RxNorm: 736654 1 Tablet(s) PO daily 201501/13/2016 Inactive (this was only twice daily x1 week) now it's daily metolazone 5 mg tablet RxNorm: 457686 1 Tablet(s) BIW TAKE ONE TABLET BY MOUTH DAILY 11/12/2015 04/18/2016 Inactive hydrocodone 7.5 mg-acetaminophen 325 mg tablet RxNorm: 351959 1 or 2 Tablet(s) PO Q4-6H as needed pain 11/12/20152015 Inactive Lasix 40 mg tablet RxNorm: 810453 1 Tablet(s) PO daily 201511/11/2015 Inactive (this was only twice daily x1 week) now it's daily metolazone 5 mg tablet RxNorm: 414668 Tablet(s) TAKE ONE TABLET BY MOUTH DAILY 10/22/2015 10/29/2015 Inactive potassium chloride ER 10 mEq tablet,extended release(part/ cryst) RxNorm: 2580713 1 Tablet(s) PO daily 10/08/20152015 Inactive twice daily x 1 week then return to daily Lasix 40 mg tablet RxNorm: 051166 1 Tablet(s) PO daily 201511/09/2015 Inactive twice daily x 1 week then daily thereafter Keflex 500 mg capsule RxNorm: 578743 1 Capsule(s) PO TID 201510/02/2015 Inactive Keflex 500 mg capsule RxNorm: 563969 1 Capsule(s) PO TID 201509/22/2015 Inactive hydrocodone 7.5 mg-acetaminophen 325 mg tablet RxNorm: 582323 1 or 2 Tablet(s) PO Q4-6H as needed pain 09/22/20152015 Inactive potassium chloride ER 10 mEq tablet,extended release(part/ cryst) RxNorm: 5162208 1 Tablet(s) PO BID 09/22/2015 10/07/2015 Inactive twice daily x 1 week then return to daily Lasix 40 mg tablet RxNorm: 931293 1 Tablet(s) PO BID 201510/07/2015 Inactive twice daily x 1 week then daily thereafter allopurinol 300 mg tablet RxNorm: 956923 1 Tablet(s) PO daily 09/09/2015 01/06/2016 Inactive diltiazem 90 mg tablet RxNorm: 292937 Tablet(s) TAKE ONE TABLET BY MOUTH THREE TIMES A DAY 09/02/2015 01/28/2016 Inactive diltiazem 90 mg tablet RxNorm: 930039 TAKE ONE TABLET BY MOUTH THREE TIMES A DAY 08/31/2015 01/28/2016 Inactive diltiazem 90 mg tablet RxNorm: 843645 TAKE ONE TABLET BY MOUTH THREE TIMES A DAY 08/31/2015 09/01/2015 Inactive Xanax 0.25 mg tablet RxNorm: 381554 1 Tablet(s) PO TID as needed anxiety 08/28/2015 09/26/2015 Inactive Xanax 0.25 mg tablet RxNorm: 885299 1 Tablet(s) PO TID as needed anxiety 08/28/2015 08/27/2015 Inactive potassium chloride ER 10 mEq tablet,extended release(part/ cryst) RxNorm: 554458 TAKE ONE TABLET BY MOUTH DAILY 08/27/2015 2015 Inactive omeprazole 20 mg capsule,delayed release RxNorm: 503851 TAKE ONE CAPSULE BY MOUTH TWICE A DAY 08/16/2015 02/11/2016 Inactive omeprazole 20 mg capsule,delayed release RxNorm: 531831 TAKE ONE CAPSULE BY MOUTH TWICE A DAY 08/16/2015 08/15/2015 Inactive hydrocodone 7.5 mg-acetaminophen 325 mg tablet RxNorm: 911963 1 or 2 Tablet(s) PO Q4-6H as needed pain 08/11/20152015 Inactive omeprazole 20 mg capsule,delayed release RxNorm: 657364 Capsule(s) TAKE ONE CAPSULE BY MOUTH TWICE A DAY 08/03/2015 Inactive omeprazole 20 mg capsule,delayed release RxNorm: 042661 Capsule(s) TAKE ONE CAPSULE BY MOUTH TWICE A DAY 07/31/2015 Inactive buspirone 10 mg tablet RxNorm: 709972 TAKE ONE TABLET BY MOUTH THREE TIMES A DAY 07/13/2015 01/08/2016 Inactive metolazone 5 mg tablet RxNorm: 768797 TAKE ONE TABLET BY MOUTH DAILY 07/02/2015 07/09/2015 Inactive metolazone 5 mg tablet RxNorm: 520879 1 Tablet(s) PO daily 06/18/2015 Inactive metolazone 5 mg tablet RxNorm: 864966 1 Tablet(s) PO daily 06/14/2015 Inactive hydrocodone 7.5 mg-acetaminophen 325 mg tablet RxNorm: 624130 1or2 1 or 2 Tablet(s ) PO Q4-6H as needed pain 06/12/201507/10 Inactive warfarin 1 mg tablet RxNorm: 181059 1 Tablet(s) 04/15/2015 06/22/2015 Inactive take with 3mg to make 4mg on Mon and repeat in 1 week. hydrocodone 7.5 mg-acetaminophen 325 mg tablet RxNorm: 337761 1or2 or 2 Tablet(s) PO Q4-6H as needed pain 03/31/20152015 Inactive hydrocodone 7.5 mg-acetaminophen 325 mg tablet RxNorm: 858476 1or2 or 2 Tablet(s) PO Q4-6H as needed pain 03/25/20152015 Inactive warfarin 5 mg tablet RxNorm: 413273 1 Tablet(s) PO daily TAKE ONE TABLET BY MOUTH DAILY 03/05/2015 06/22/2015 Inactive Xarelto 20 mg tablet RxNorm: 5919972 1 Tablet(s) PO QPM 201503/04/2015 Inactive losartan 100 mg tablet RxNorm: 114318 1 Tablet(s) PO daily 05/201406/22/2015 Inactive [SAVINGS FOR NON-COVERED DRUGS -- BIN:[id number], PCN: ASPROD1, Group: XXXXX, ID# [id number], Questions: . THIS IS NOT INSURANCE.] Kenalog 40 mg/mL suspension for injection RxNorm: 9538197 1 Milliliter(s) Inj 01/30/2015 01/30/2015 Inactive hydrocodone 7.5 mg-acetaminophen 325 mg tablet RxNorm: 928896 1or2 or 2 Tablet(s) PO Q4-6H as needed pain 01/15/20152014 Inactive Lasix 40 mg tablet RxNorm: 000453 1 Tablet(s) PO daily 201409/21/2015 Inactive as needed for swelling-take potassium when you take lasix potassium chloride ER 10 mEq tablet,extended release(part/ cryst) RxNorm: 054306 2 Tablet(s) PO daily 01/06/2015 01/19/2015 Inactive Lasix 40 mg tablet RxNorm: 200637 1 Tablet(s) PO daily 201401/06/2015 Inactive Ok to fill 20mg, not 40mg as needed for swelling-take potassium when you take lasix potassium chloride ER 10 mEq tablet,extended release(part/ cryst) RxNorm: 446181 1 Tablet(s) PO BID 12/30/2014 01/05/2015 Inactive Vitamin D2 50,000 unit capsule RxNorm: 082831 TAKE 1 CAPSULE BY MOUTH ONCE WEEKLY FOR 12 WEEKS 12/30/2014 03/23/2015 Inactive potassium chloride ER 10 mEq tablet,extended release(part/ cryst) RxNorm: 263864 1 Tablet(s) PO daily 12/26/2014 12/29/2014 Inactive potassium chloride ER 10 mEq tablet,extended release(part/ cryst) RxNorm: 034284 1 Tablet(s) PO daily 12/26/2014 12/25/2014 Inactive omeprazole 20 mg capsule,delayed release RxNorm: 252832 TAKE ONE CAPSULE BY MOUTH TWICE A DAY 12/24/2014 07/21/2015 Inactive Flagyl 500 mg tablet RxNorm: 386894 1 Tablet(s) PO TID 201412/20/2014 Inactive Flagyl 500 mg tablet RxNorm: 012720 1 Tablet(s) PO TID 201412/10/2014 Inactive warfarin 3 mg tablet RxNorm: 388271 TAKE ONE TABLET BY MOUTH DAILY 11/13/2014 01/29/2015 Inactive warfarin 3 mg tablet RxNorm: 386550 TAKE ONE TABLET BY MOUTH DAILY 11/13/2014 01/29/2015 Inactive warfarin 3 mg tablet RxNorm: 012509 TAKE ONE TABLET BY MOUTH DAILY 11/13/2014 03/04/2015 Inactive warfarin 3 mg tablet RxNorm: 256094 1 Tablet(s) PO daily 201403/04/2015 Inactive allopurinol 300 mg tablet RxNorm: 099089 1 Tablet(s) PO daily 11/11/2014 03/10/2015 Inactive hydrocodone 7.5 mg-acetaminophen 325 mg tablet RxNorm: 997742 1or2 or 2 Tablet(s) PO Q4-6H as needed pain 11/10/20142014 Inactive hydrocodone 7.5 mg-acetaminophen 325 mg tablet RxNorm: 077258 1or2 or 2 Tablet(s) PO Q4-6H as needed pain 10/15/20142014 Inactive hydrocodone 7.5 mg-acetaminophen 325 mg tablet RxNorm: 904327 1or2 or 2 Tablet(s) PO Q4-6H as needed pain 10/15/20142014 Inactive Kenalog 40 mg/mL suspension for injection RxNorm: 6016297 Milliliter(s) Inj 10/14/2014 10/14/2014 Inactive ceftriaxone 500 mg solution for injection RxNorm: 7998468 Inj 10/14/2014 10/14/2014 Inactive Zithromax Z-Chito 250 mg tablet RxNorm: 708765 1 Tablet(s) PO UD 10/14/2014 01/29/2015 Inactive zpack cefdinir 300 mg capsule RxNorm: 004167 1 Capsule(s) PO BID 10/20/2014 Inactive Vitamin D2 50,000 unit capsule RxNorm: 381274 1 Capsule(s) PO weekly x 12 weeks 09/24/2014 09/23/2014 Inactive Vitamin D2 50,000 unit capsule RxNorm: 553370 1 Capsule(s) PO weekly x 12 weeks 09/24/2014 12/22/2014 Inactive warfarin 1 mg tablet RxNorm: 939004 TAKE 1/2 TABLET BY MOUTH DAILY WITH 3MG TABLET TO EQUAL 3.5MG DAILY 09/22/201404/2014 Inactive warfarin 1 mg tablet RxNorm: 103640 1/2 Tablet(s) PO daily 3.5mg 08/26/2014 2014 Inactive taking with a 3mg to make 3.5mg tablets Lasix 20 mg tablet RxNorm: 560845 1 Tablet(s) PO QDAY PRN 09/24/2014 Inactive Ok to fill 20mg, not 40mg as needed for swelling-take potassium when you take lasix buspirone 10 mg tablet RxNorm: 061389 1 Tablet(s) PO TID 201411/25/2014 Inactive takes it BID but if she feels anxious she takes one during the day Lasix 20 mg tablet RxNorm: 037176 1 Tablet(s) PO QDAY PRN 08/25/2014 Inactive as needed for swelling-take potassium when you take lasix warfarin 1 mg tablet RxNorm: 623174 1/2 Tablet(s) PO daily 3.5mg 08/15/2014 08/21/2014 Inactive taking with a 3mg to make 3.5mg tablets warfarin 3 mg tablet RxNorm: 950995 1 Tablet(s) PO daily 201410/11/2014 Inactive diltiazem 90 mg tablet RxNorm: 535323 1 Tablet(s) PO TID 201408/30/2015 Inactive warfarin 1 mg tablet RxNorm: 788300 1/2 Tablet(s) PO daily 3.5mg 08/05/2014 08/11/2014 Inactive taking with a 3mg to make 3.5mg tablets cyclobenzaprine 10 mg tablet RxNorm: 670386 1 Tablet(s) PO QHS 08/04/2014 11/01/2014 Inactive buspirone 10 mg tablet RxNorm: 322286 1 Tablet(s) PO QID 201408/21/2014 Inactive allopurinol 300 mg tablet RxNorm: 861326 1 Tablet(s) PO daily 08/04/2014 11/01/2014 Inactive clonazepam 0.5 mg tablet RxNorm: 487124 1 Tablet(s) PO daily 09/02/2014 Inactive omeprazole 20 mg capsule,delayed release RxNorm: 144149 1 Capsule(s) PO BID 08/04/2014 11/01/2014 Inactive atenolol 25 mg tablet RxNorm: 936692 1 Tablet(s) PO daily 201411/01/2014 Inactive warfarin 3 mg tablet RxNorm: 377634 1 Tablet(s) PO daily 201408/04/2014 Inactive diphenhydramine 2 % topical cream RxNorm: 8062235 1 Application TOP Q6 PRN 07/24/2014 01/29/2015 Inactive diltiazem 90 mg tablet RxNorm: 591229 1 Tablet(s) PO BID 201408/04/2014 Inactive cyclobenzaprine 10 mg tablet RxNorm: 695654 1 Tablet(s) PO QH 07/24/2014 08/03/2014 Inactive warfarin 2.5 mg tablet RxNorm: 652833 1 Tablet(s) PO daily 08/22/2014 Inactive [SAVINGS FOR NON-COVERED DRUGS -- BIN:[id number], PCN: ASPROD1, Group: XXXXX, ID# [id number], Questions: . THIS IS NOT INSURANCE.] losartan 25 mg tablet RxNorm: 228872 1 Tablet(s) PO daily 201401/29/2015 Inactive [SAVINGS FOR NON-COVERED DRUGS -- BIN:917211, PCN: ASPROD1, Group: XXXXX, ID # [id number], Questions: . THIS IS NOT INSURANCE.] isosorbide mononitrate oral RxNorm: 6057 oral No Start Date Active diltiazem ER 360 mg tablet,extended release 24 hr RxNorm: 058249 1 Tablet(s) PO daily No Start Date Active benazepril 10 mg tablet RxNorm: 430518 1 Tablet(s) PO daily No Start Date 07/14/2014 Inactive lisinopril 10 mg tablet RxNorm: 531781 1 Tablet(s) PO daily No Start Date 04/24/2016 Inactive clonazepam 0.5 mg tablet RxNorm: 279554 1 Tablet(s) PO daily No Start Date 08/03/2014 Inactive diltiazem 90 mg tablet RxNorm: 676346 1 Tablet(s) PO daily No Start Date 07/23/2014 Inactive atenolol 25 mg tablet RxNorm: 713767 1 Tablet(s) PO daily No Start Date 08/03/2014 Inactive buspirone 10 mg tablet RxNorm: 086815 1 Tablet(s) PO QID No Start Date 08/03/2014 Inactive omeprazole 20 mg capsule,delayed release RxNorm: 918843 1 Capsule(s) PO BID No Start Date 08/03/2014 Inactive allopurinol 300 mg tablet RxNorm: 513208 1 Tablet(s) PO daily No Start Date 08/03/2014 Inactive Xarelto 20 mg tablet RxNorm: 6405263 1 Tablet(s) PO daily No Start Date 03/03/2015 Inactive warfarin 2 mg tablet RxNorm: 045406 1 Tablet(s) PO daily No Start Date 07/16/2014 Inactive cyanocobalamin (vit B-12) 1,000 mcg/mL injection solution RxNorm: 843825 1 Milliliter(s) Inj monthly No Start Date Inactive cyclobenzaprine 10 mg tablet RxNorm: 622737 1 Tablet(s) PO BID No Start Date 07/23/2014 Inactive Eliquis 2.5 mg tablet RxNorm: 7223452 1 Tablet(s) PO daily No Start Date 03/03/2015 Inactive Medication Administered Medication Codes Instructions Start Date Status Kenalog 40 mg/mL suspension for injection RxNorm: 9355518 1Milliliter 01/30/2015 No longer Active ceftriaxone 500 mg solution for injection RxNorm: 5167476 10/14/2014 No longer Active Kenalog 40 mg/mL suspension for injection RxNorm: 9231705 Milliliter 10/14/2014 No longer Active Immunizations Vaccine [...] deficiency, unspecified ICD-10: E55.9 ICD-9: 268.9 03/31/2015 [employer]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 ICD-10: Z79.01 ICD-9: [...] Item Item Code Result Date Comp Metabolic Lsw439 NA 138 mEq/L 09/29/2015 Comp Metabolic Mdx455 K 4.6 mEq/L 09/29/2015 Comp Metabolic Ulk354 CL 102 mEq/L 09/29/2015 Comp Metabolic Nqc118 CO2 28.0 mEq/L 09/29/2015 Comp Metabolic Hxe594 ANION GAP 13 09/29/2015 Comp Metabolic Ecf753 GLUCOSE 83 mg/dL 09/29/2015 Comp Metabolic Rjp204 Creat 1.1 mg/dL 09/29/2015 Comp Metabolic Lih877 eGFR 52 ml/min/1.73m2 09/29/2015 Comp Metabolic Hkk047 BUN 18 mg/dL 09/29/2015 Comp Metabolic Pbo042 B/C Ratio 16.7 Ratio 09/29/2015 Comp Metabolic Zzp861 CALCIUM 9.6 mg/dL 09/29/2015 Comp Metabolic Eeu945 ALK PHOS 188 U/L 09/29/2015 Comp Metabolic Gzl590 AST(SGOT) 19 U/L 09/29/2015 Comp Metabolic Ihn376 ALT(SGPT) 12 U/L 09/29/2015 Comp Metabolic Bge445 BILI T 0.6 mg/dL 09/29/2015 Comp Metabolic Hwb403 ALBUMIN 4.0 g/dL 09/29/2015 Comp Metabolic Ddg164 TPRO 6.6 g/dL 09/29/2015 Comp Metabolic Xtb397 GLOB 2.6 g/dL 09/29/2015 Comp Metabolic Vvx408 A/G Ratio 1.5 Ratio 09/29/2015 Comp Metabolic Rdz490 Osmo 277 mOsmo 09/29/2015 Cbc With Differential [...] 26.1 pg 09/29/2015 Cbc With Differential Ord2 [place]% 18.3 % 09/29/2015 Cbc With Differential Ord2 [...] 1.41 K/ul 09/29/2015 Cbc With Differential Ord2 [place] ABS# 1.8 K/ul 09/29/2015 Cbc With Differential Ord2 Eos ABS# 0.2 K/ul 09/29/2015 Cbc With Differential Ord2 Baso ABS# 0.1 K/ul 09/29/2015 Cbc With Differential Ord2 WBC 10.76 K/ul [...] 25.7 pg 09/22/2015 Cbc With Differential Ord2 [place]% 15.4 % 09/22/2015 Cbc With Differential Ord2 [...] 1.81 K/ul 09/22/2015 Cbc With Differential Ord2 [place] ABS# 1.7 K/ul 09/22/2015 Cbc With Differential Ord2 Eos ABS# 0.1 K/ul 09/22/2015 Cbc With Differential Ord2 Baso ABS# 0.1 K/ul 09/22/2015 Comp Metabolic Stl340 NA 134 mEq/L 09/22/2015 Comp Metabolic Ubp649 K 4.7 mEq/L 09/22/2015 Comp Metabolic Ugs850 CL 98 mEq/L 09/22/2015 Comp Metabolic Vci694 CO2 26.0 mEq/L 09/22/2015 Comp Metabolic Tcq464 ANION GAP 15 09/22/2015 Comp Metabolic Vgt038 GLUCOSE 83 mg/dL 09/22/2015 Comp Metabolic Svr239 Creat 1.1 mg/dL 09/22/2015 Comp Metabolic Pni626 eGFR 52 ml/min/1.73m2 09/22/2015 Comp Metabolic Ngm831 BUN 19 mg/dL 09/22/2015 Comp Metabolic Srm754 B/C Ratio 17.8 Ratio 09/22/2015 Comp Metabolic Mqs214 CALCIUM 9.4 mg/dL 09/22/2015 Comp Metabolic Qwn261 ALK PHOS 182 U/L 09/22/2015 Comp Metabolic Viy103 AST(SGOT) 30 U/L 09/22/2015 Comp Metabolic Jrk961 ALT(SGPT) 16 U/L 09/22/2015 Comp Metabolic Uzf157 BILI T 0.8 mg/dL 09/22/2015 Comp Metabolic Eiv549 ALBUMIN 3.9 g/dL 09/22/2015 Comp Metabolic Mah973 TPRO 6.8 g/dL 09/22/2015 Comp Metabolic Vty137 GLOB 2.9 g/dL 09/22/2015 Comp Metabolic Xue087 A/G Ratio 1.3 Ratio 09/22/2015 Comp Metabolic Kld632 Osmo 270 mOsmo 09/22/2015 Pt Kkd4244 PT 21.8 seconds 06/02/2015 Pt Izz9745 INR 2.0 06/02/2015 Pt Icf4528 Low Intensity - 1.5-2.0 06/02/2015 Pt Rry0286 Mod intensity - 2.0-3.0 06/02/2015 Pt Xpg5405 Hi intensity - 3.0-4.0 06/02/2015 Comp Metabolic Csw099 NA 132 mEq/L 06/02/2015 Comp Metabolic Tsh395 K 4.4 mEq/L 06/02/2015 Comp Metabolic Ory436 CL 94 mEq/L 06/02/2015 Comp Metabolic Arj039 CO2 26.0 mEq/L 06/02/2015 Comp Metabolic Fwp389 ANION GAP 16 06/02/2015 Comp Metabolic Upb352 GLUCOSE 97 mg/dL 06/02/2015 Comp Metabolic Eay973 Creat 1.2 mg/dL 06/02/2015 Comp Metabolic Rnx205 eGFR 46 ml/min/1.73m2 06/02/2015 Comp Metabolic Gpo996 BUN 19 mg/dL 06/02/2015 Comp Metabolic Wnh398 B/C Ratio 15.8 Ratio 06/02/2015 Comp Metabolic Hpn459 CALCIUM 9.4 mg/dL 06/02/2015 Comp Metabolic Msp280 ALK PHOS 178 U/L 06/02/2015 Comp Metabolic Gdo880 AST(SGOT) 32 U/L 06/02/2015 Comp Metabolic Aex962 ALT(SGPT) 31 U/L 06/02/2015 Comp Metabolic Blq009 BILI T 0.6 mg/dL 06/02/2015 Comp Metabolic Mhs773 ALBUMIN 4.0 g/dL 06/02/2015 Comp Metabolic Kmi370 TPRO 6.5 g/dL 06/02/2015 Comp Metabolic Pmk015 GLOB 2.5 g/dL 06/02/2015 Comp Metabolic Ayv354 A/G Ratio 1.6 Ratio 06/02/2015 Comp Metabolic Eid028 Osmo 267 mOsmo 06/02/2015 Cbc With Differential Ord2 WBC 10.52 K/ul 06/02/2015 Cbc With Differential Ord2 RBC 3.16 M/ul 06/02/2015 Cbc With Differential Ord2 HGB 8.8 g/dl 06/02/2015 Cbc With Differential Ord2 Neut% 66.1 % 06/02/2015 Cbc With Differential Ord2 HCT 27.8 % 06/02/2015 Cbc With Differential Ord2 MCV 88.0 fl 06/02/2015 Cbc With Differential Ord2 Lymph% 16.5 % 06/02/2015 Cbc With Differential Ord2 [place]% 16.6 % 06/02/2015 Cbc With Differential Ord2 [...] 1.74 K/ul 06/02/2015 Cbc With Differential Ord2 [place] ABS# 1.8 K/ul 06/02/2015 Cbc With Differential Ord2 Eos ABS# 0.1 K/ul 06/02/2015 Cbc With Differential Ord2 Baso ABS# 0.0 K/ul 06/02/2015 Cbc With Differential Ord2 New Analyzer Notice Please note new ref ranges starting 03-11-2015 due to implemntation of new five part differential hematolgy analyzer. 06/02/2015 Vitamin D 25 Oh Bgx0680 VITAMIN D, 25 HYDROXY 61.20 ng/mL Iron Ord72 Iron 39 ug/dl 04/01/2015 B12 Zvi949 B12 160.00 pg/ml 04/01/2015 Tsh Ord6 hTSH II 1.87 uIU/mL 03/31/2015 Comp Metabolic Sdd659 NA 131 mEq/L 03/31/2015 Comp Metabolic Dzk603 K 5.3 mEq/L 03/31/2015 Comp Metabolic Tul253 CL 97 mEq/L 03/31/2015 Comp Metabolic Uun591 CO2 24.0 mEq/L 03/31/2015 Comp Metabolic Ish369 ANION GAP 15 03/31/2015 Comp Metabolic Chz791 GLUCOSE 84 mg/dL 03/31/2015 Comp Metabolic Osu315 Creat 1.3 mg/dL 03/31/2015 Comp Metabolic Zvc265 eGFR 42 ml/min/1.73m2 03/31/2015 Comp Metabolic Zys422 BUN 26 mg/dL 03/31/2015 Comp Metabolic Xwc401 B/C Ratio 20.2 Ratio 03/31/2015 Comp Metabolic Cmh233 CALCIUM 9.4 mg/dL 03/31/2015 Comp Metabolic Aef577 ALK PHOS 172 U/L 03/31/2015 Comp Metabolic Rrf441 AST(SGOT) 21 U/L 03/31/2015 Comp Metabolic Rqp385 ALT(SGPT) 27 U/L 03/31/2015 Comp Metabolic Txu449 BILI T 0.5 mg/dL 03/31/2015 Comp Metabolic Dsh395 ALBUMIN 4.0 g/dL 03/31/2015 Comp Metabolic Cws661 TPRO 6.8 g/dL 03/31/2015 Comp Metabolic Wfi441 GLOB 2.8 g/dL 03/31/2015 Comp Metabolic Upb176 A/G Ratio 1.4 Ratio 03/31/2015 Comp Metabolic Pie536 Osmo 267 mOsmo 03/31/2015 Pt Fbd1540 PT 36.9 seconds 03/31/2015 Pt Rfu1402 INR 3.9 03/31/2015 Pt Sja5631 Low Intensity - 1.5-2.0 03/31/2015 Pt Lib2409 Mod intensity - 2.0-3.0 03/31/2015 Pt Sor9548 Hi intensity - 3.0-4.0 03/31/2015 Cbc With Differential Ord2 WBC 11.58 [...] 28.3 pg 03/31/2015 Cbc With Differential Ord2 [place]% 14.0 % 03/31/2015 Cbc With Differential Ord2 [...] 1.62 K/ul 03/31/2015 Cbc With Differential Ord2 [place] ABS# 1.6 K/ul 03/31/2015 Cbc With Differential [...] Ucult Complete No Growth Day 2 11/10/2014 Pt Nhh8023 PT 29.1 seconds 09/19/2014 Pt Waf9712 INR 2.9 09/19/2014 Pt Esv9524 Low Intensity - 1.5-2.0 09/19/2014 Pt Vcx2571 Mod intensity - 2.0-3.0 09/19/2014 Pt Vjf8869 Hi intensity - 3.0-4.0 09/19/2014 Comp Metabolic Rbg544 NA 134 mEq/L 09/19/2014 Comp Metabolic Wbr663 K 4.7 mEq/L 09/19/2014 Comp Metabolic Xeu495 CL 98 mEq/L 09/19/2014 Comp Metabolic Cwl681 CO2 27.0 mEq/L 09/19/2014 Comp Metabolic Wdu877 ANION GAP 14 09/19/2014 Comp Metabolic Aug997 GLUCOSE 94 mg/dL 09/19/2014 Comp Metabolic Pcp914 Creat 1.1 mg/dL 09/19/2014 Comp Metabolic Owx448 eGFR 49 ml/min/1.73m2 09/19/2014 Comp Metabolic Nrc943 BUN 14 mg/dL 09/19/2014 Comp Metabolic Psy994 B/C Ratio 12.3 Ratio 09/19/2014 Comp Metabolic Pzg712 CALCIUM 9.7 mg/dL 09/19/2014 Comp Metabolic Uea589 ALK PHOS 150 U/L 09/19/2014 Comp Metabolic Sir032 AST(SGOT) 16 U/L 09/19/2014 Comp Metabolic Kif433 ALT(SGPT) 9 U/L 09/19/2014 Comp Metabolic Uhm410 BILI T 0.8 mg/dL 09/19/2014 Comp Metabolic Ggc987 ALBUMIN 3.9 g/dL 09/19/2014 Comp Metabolic Usl703 TPRO 6.8 g/dL 09/19/2014 Comp Metabolic Lte731 GLOB 2.9 g/dL 09/19/2014 Comp Metabolic Uvn588 A/G Ratio 1.3 Ratio 09/19/2014 Comp Metabolic Ghs724 Osmo 268 mOsmo 09/19/2014 Cbc With Differential [...] With Differential Ord2 RDW 17.6 % 09/19/2014 Lipid Ord30 CHOL 216 mg/dL 09/19/2014 Lipid Ord30 HDL 78.0 mg/dl 09/19/2014 Lipid Ord30 TRIG 85 mg/dL 09/19/2014 Lipid Ord30 LDL 121 mg/dL 09/19/2014 Lipid Ord30 C/HDL 2.8 Ratio 09/19/2014 Magnesium Ord90 Mag 2.0 mg/dL 09/19/2014 Vitamin D 25 Oh Oim7296 VITAMIN D, 25 HYDROXY 14.13 ng/mL Tsh Ord6 hTSH II 1.40 uIU/mL 09/19/2014 Review of Systems System Result Effective [...] IM Formatting Model/CDA Sections, Assigned to/Indira Ibanez CT: [id number] CPT-4: 44821Ghoukeb 12/10/2015 TRIAMCINOLONE ACET INJ NOS CPT-4: J3301 01/30/2015 URINALYSIS NONAUTO W/O SCOPE CPT-4: 14397 11/07/2014 ROCEPHIN, PER 250 MG CPT-4: J0696 10/14/2014 TRIAMCINOLONE ACET INJ NOS CPT-4: J3301 10/14/2014 Vital Signs Date Vital 03/07/2017 Blood Pressure 1: 108/52 Code : 8480-6 BMI: 27.6 Code : 89370-2 Heart Rate 1 : 72 bpm Height: 5'2" SpO2: 96% Weight: 151 lbs 01/24/2017 Blood Pressure 1: 126/60 Code : 8480-6 BMI: 27.1 Code : 23123-1 Heart Rate 1 : 60 bpm Height: [...] Code : 8480-6 BMI: 26.8 Code : 94443-3 Heart Rate 1 : 59 bpm Height: 5'2" SpO2: 97% Weight: 146 lbs 8 oz 05/10/2016 Blood Pressure 1: 120/56 Code : 8480-6 BMI: 27.1 Code : 08430-4 Heart Rate 1 : 63 bpm Height: 5'2" SpO2: 97% Weight: 148 lbs 04/25/2016 Blood Pressure 1: 134/66 Code : 8480-6 BMI: 24.9 Code : 03041-5 Heart Rate 1 : 118 bpm Height: 5'2" SpO2: 93% Temperature: 36.8 (C) / 98.3 (F) Weight: 136 lbs 01/14/2016 Blood Pressure 1: 132/78 Code : 8480-6 BMI: 25.6 Code : 35226-1 Heart Rate 1 : 97 bpm Height: 5'2" SpO2: 95% Weight: 140 lbs 12/10/2015 Blood Pressure 1: 118/72 Code : 8480-6 BMI: 26.2 Code : 86312-2 Heart Rate 1 : 68 bpm Height: 5'2" SpO2: 95% Weight: 143 lbs 11/12/2015 Blood Pressure 1: 140/80 Code : 8480-6 BMI: 25.6 Code : 56376-1 Heart Rate 1 : 77 bpm Height: 5'2" SpO2: 93% Weight: 140 lbs 10/08/2015 Blood Pressure 1: 132/60 Code : 8480-6 BMI: 26.2 Code : 33383-8 Heart Rate 1 : 77 bpm Height: 5'2" SpO2: 96% Weight: 143 lbs 09/29/2015 Blood Pressure 1: 130/62 Code : 8480-6 BMI: 27.1 Code : 33905-8 Heart Rate 1 : 86 bpm Height: 5'2" SpO2: 93% Weight: 148 lbs 09/22/2015 Blood Pressure 1: 164/72 Code : 8480-6 BMI: 28.2 Code : 57615-2 Heart Rate 1 : 79 bpm Height: 5'2" SpO2: 92% Weight: 154 lbs 07/21/2015 Blood Pressure 1: 124/70 Code : 8480-6 BMI: 24.5 Code : 75142-9 Heart Rate 1 : 71 bpm Height: 5'2" SpO2: 98% Weight: 134 lbs 06/23/2015 Blood Pressure 1: 122/68 Code : 8480-6 BMI: 25.4 Code : 42744-7 Heart Rate 1 : 78 bpm Height: 5'2" SpO2: 92% Weight: 139 lbs 06/12/2015 Blood Pressure 1: 154/62 Code : 8480-6 BMI: 27.4 Code : 13051-5 Heart Rate 1 : 87 bpm Height: 5'2" SpO2: 94% Weight: 150 lbs 06/02/2015 Blood Pressure 1: 140/68 Code : 8480-6 Heart Rate 1: 90 bpm SpO2: 91% Weight: 142 lbs 03/31/2015 Blood Pressure 1: 120/56 Code : 8480-6 BMI: 23.6 Code : 78487-7 Heart Rate 1 : 82 bpm Height: 5'2" SpO2: 98% Weight: 129 lbs 01/30/2015 Blood Pressure 1: 108/62 Code : 8480-6 BMI: 22.1 Code : 88178-3 Heart Rate 1 : 8299 bpm Height: 5'2 " SpO2: 99% Weight: 121 lbs 12/22/2014 Blood Pressure 1: 130/70 Code : 8480-6 BMI: 21.8 Code : 74056-5 Heart Rate 1 : 106 bpm Height: 5'2" SpO2: 98% Weight: 119 lbs 10/29/2014 Blood Pressure 1: 118/58 Code : 8480-6 BMI: 23.2 Code : 89920-9 Heart Rate 1 : 74 bpm Height: 5'2" SpO2: 93% Weight: 127 lbs 10/14/2014 Blood Pressure 1: 128/64 Code : 8480-6 BMI: 22.9 Code : 64534-4 Heart Rate 1 : 79 bpm Height: 5'2" SpO2: 93% Temperature: 35.9 (C) / 96.6 (F) Weight: 125 lbs 09/19/2014 Blood Pressure 1: 132/72 Code : 8480-6 BMI: 22.9 Code : 67794-1 Heart Rate 1 : 84 bpm Height: 5'2" SpO2: 96% Weight: 125 lbs 08/22/2014 Blood Pressure 1: 124/72 Code : 8480-6 BMI: 23.0 Code : 56497-7 Heart Rate 1 : 64 bpm Height: 5'2" Weight: 126 lbs 08/04/2014 Blood Pressure 1: 126/86 Code : 8480-6 BMI: 23.6 Code : 43349-1 Height: 5'2" Respiratory Rate: 20 bpm Weight: 129 lbs 07/24/2014 Blood Pressure 1: 116/72 Code : 8480-6 BMI: 23.6 Code : 13027-5 Heart Rate 1 : 74 bpm Height: 5'2" Weight: 129 lbs 07/15/2014 Blood Pressure 1: 132/78 Code : 8480-6 BMI: 24.1 Code : 41512-1 Heart Rate 1 : 74 bpm Height: [...] data Encounters Encounter Performer Location Codes Date ([id number]) 16993 EST. PATIENT, LEVEL IV Diagnosis: Essential (primary) hypertension[ICD10: I10] Diagnosis: Paroxysmal atrial fibrillation[ICD10: I48.0] Diagnosis: Generalized anxiety disorder[ICD10: F41.1] Diagnosis: Localized edema[ICD10: R60.0] Veronica Daigle MD, [facility] CPT- 4: 93988 03/07/2017 ([id number]) 81914 EST. PATIENT, LEVEL IV Diagnosis: Generalized anxiety disorder[ICD10: F41.1] Diagnosis: Major depressive disorder, single episode, unspecified[ICD10: F32.9] Diagnosis: Essential (primary) hypertension[ICD10: I10] Diagnosis: Paroxysmal atrial fibrillation[ICD10: I48.0] Merle Daigle MD, [facility] CPT-4: 57443 01/24/2017 09840 EST. PATIENT, LEVEL IV Diagnosis: Other chest pain[ICD10: R07.89] Diagnosis: Other malaise[ICD10: R53.81] Opal Daigle MD, [facility] CPT-4 : 51828 09/29/2016 ([id number]) 04514 EST. PATIENT, LEVEL IV Diagnosis: Essential (primary) hypertension[ICD10: I10] Diagnosis: Paroxysmal atrial fibrillation[ICD10: I48.0] Diagnosis: Localized edema[ICD10: R60.0] Diagnosis: Generalized anxiety disorder[ICD10: F41.1] Diagnosis: Low back pain[ICD10: M54.5] Merle Daigle MD, [facility] CPT-4: 66367 09/13/2016 ([id number]) 22024 EST. PATIENT, LEVEL III Diagnosis: Essential (primary) hypertension[ICD10: I10] Diagnosis: Paroxysmal atrial fibrillation[ICD10: I48.0] Merle Daigle MD, [facility] CPT-4: 04606 05/31/2016 ([id number]) 15796 EST. PATIENT, LEVEL III Diagnosis: Essential (primary) hypertension[ICD10: I10] Diagnosis: Localized edema[ICD10: R60.0] Merle Daigle MD, [facility] CPT-4: 14572 05/10/2016 ([id number]) 78280 EST. PATIENT, LEVEL IV Diagnosis: Paroxysmal atrial fibrillation[ICD10: I48.0] Diagnosis: Essential (primary) hypertension[ICD10: I10] Diagnosis: Generalized anxiety disorder[ICD10: F41.1] Merle Daigle MD, [facility] CPT-4: 10152 04/25/2016 ([id number]) 36049 EST. PATIENT, LEVEL IV Diagnosis: Generalized anxiety disorder[ICD10: F41.1] Diagnosis: Essential (primary) hypertension[ICD10: I10] Diagnosis: Paroxysmal atrial fibrillation[ICD10: I48.0] Diagnosis: Localized edema[ICD10: R60.0] Diagnosis: Acute recurrent maxillary sinusitis[ICD10: J01.01] Merle Daigle MD, [facility] CPT-4: 13401 01/14/2016 ([id number]) 32656 EST. PATIENT, LEVEL IV Diagnosis: Essential (primary) hypertension[ICD10: I10] Diagnosis: Generalized anxiety disorder[ICD10: F41.1] Diagnosis: Localized edema[ICD10: R60.0] Diagnosis: Encounter for immunization[ICD10: Z23] Merle Daigle MD, [facility] CPT-4: 65637 12/10/2015 ([id number]) 78511 EST. PATIENT, LEVEL III Diagnosis: Essential (primary) hypertension[ICD10: I10] Diagnosis: Localized edema[ICD10: R60.0] Merle Daigle MD, [facility] CPT-4: 92071 11/12/2015 ([id number]) 30049 EST. PATIENT, LEVEL III Diagnosis: Essential (primary) hypertension[ICD10: I10] Diagnosis: Localized edema[ICD10: R60.0] Merle Daigle MD, [facility] CPT-4: 31826 10/08/2015 ([id number]) 57193 EST. PATIENT, LEVEL III Diagnosis: Localized edema[ICD10: R60.0] Diagnosis: Essential (primary) hypertension[ICD10: I10] Merle Daigle MD, [facility] CPT-4: 11205 09/29/2015 ([id number]) 71325 EST. PATIENT, LEVEL IV Diagnosis: Localized edema[ICD10: R60.0] Diagnosis: Essential (primary) hypertension[ICD10: I10] Diagnosis: Paroxysmal atrial fibrillation[ICD10: I48.0] Merle Daigle MD, [facility] CPT-4: 71930 09/22/2015 ([id number]) 82933 EST. PATIENT, LEVEL III Diagnosis: Essential (primary) hypertension[ICD10: I10] Diagnosis: Paroxysmal atrial fibrillation[ICD10: I48.0] Merle Daigle MD, [facility] CPT-4: 30816 07/21/2015 ([id number]) 61415 EST. 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 PATIENT, LEVEL IV Diagnosis: Essential (primary) hypertension[ICD10: I10] Diagnosis: Paroxysmal atrial fibrillation[ICD10: I48.0] Diagnosis: Localized edema[ICD10: R60.0] Diagnosis: Encounter for therapeutic drug level monitoring[ICD10: Z51.81] Merle Daigle MD, [facility] CPT-4: 58747 06/02/2015 ([id number]) 64005 EST. PATIENT, LEVEL IV Diagnosis: Essential (primary) hypertension[ICD10: I10] Diagnosis: Vitamin D deficiency, unspecified[ICD10: E55.9] Diagnosis: Major depressive disorder, single episode, unspecified[ICD10: F32.9] Diagnosis: Paroxysmal atrial fibrillation[ICD10: I48.0] Diagnosis: shelter (current) use of anticoagulants[ICD10: Z79.01] Merle Daigle MD , [facility] CPT-4: 10991 03/31/2015 ([id number]) 89500 EST. PATIENT, LEVEL III Diagnosis: Essential (primary) hypertension[ICD10: I10] Diagnosis: Allergic rhinitis due to pollen[ICD10: J30.1] Merle Daigle MD, [facility] CPT-4: 53975 01/30/2015 71058 EST. PATIENT, LEVEL III Diagnosis: Localized edema[ICD10: R60.0] Diagnosis: Diarrhea, unspecified[ICD10: R19.7] Veronica Daigle MD, [facility] CPT-4: 11930 12/22/2014 ([id number]) 27750 EST. PATIENT, LEVEL IV Diagnosis: DYSPHAGIA, PHARYNGEAL[ICD9: 787.23] Diagnosis: Low back pain[ICD9: 724.2] Diagnosis: Cough[ICD9: 786.2] Diagnosis: Anticoagulated on Coumadin[ICD9: V58.83] Diagnosis: MUSCLE WEAKNESS-GENERAL[ICD9: 728.87] Diagnosis: EDEMA[ICD9: 782.3] Veronica Daigle MD, [facility] CPT-4: 06754 10/29/2014 ([id number]) 96351 EST. PATIENT, LEVEL IV Diagnosis: Low back pain[ICD9: 724.2] Diagnosis: Pneumonia[ICD9: 486] Diagnosis: Cough[ICD9: 786.2] Diagnosis: Anticoagulated on Coumadin[ICD9: V58.83] Diagnosis: DYSPHAGIA, NOS[ICD9: 787.20] Diagnosis: MUSCLE WEAKNESS-GENERAL[ICD9: 728.87] Merle Daigle MD, [facility] CPT-4: 35397 10/14/2014 ([id number]) 23076 EST. PATIENT, LEVEL IV Diagnosis: ESSENTIAL HYPERTENSION[ICD9: 401.9] Diagnosis: ESOPHAGEAL REFLUX[ICD9: 530.81] Diagnosis: SLEEP RELATED LEG CRAMPS[ICD9: 327.52] Diagnosis: Atrial fibrillation[ICD9: 427.31] Diagnosis: Anticoagulated on Coumadin[ICD9: V58.83] Diagnosis: VITAMIN D DEFICIENCY[ICD9: 268.9] Merle Daigle MD, [facility] CPT-4: 33683 09/19/2014 ([id number]) 97000 EST. PATIENT, LEVEL III Diagnosis: EDEMA[ICD9: 782.3] Diagnosis: LONG-TERM USE ANTICOAGUL[ICD9: V58.61] Merle Daigle MD, [facility] CPT-4: 19400 08/22/2014 [id number]) 26127 EST. PATIENT, LEVEL IV Diagnosis: Skin irritation[ICD9: 709.9] Diagnosis: ESSENTIAL HYPERTENSION[ICD9: 401.9] Diagnosis: Anticoagulated on Coumadin[ICD9: V58.83] Diagnosis: DEPRESSIVE DISORDER NEC[ICD9: 311] Yumiko Dickinson [facility] CPT-4: 06029 08/04/2014 ([id number]) 86092 EST. PATIENT, LEVEL III Diagnosis: Skin irritation[ICD9: 709.9] [facility] CPT- 4: 81194 07/24/2014 ([id number]) OFFICE/OUTPATIENT VISIT NEW Diagnosis: ESSENTIAL HYPERTENSION[ICD9: 401.9] Diagnosis: COUGH[ICD9: 786.2] Diagnosis: Atrial fibrillation[ICD9: 427.31] Diagnosis: LONG-TERM USE ANTICOAGUL[ICD9: V58.61] Diagnosis: DEPRESSIVE DISORDER NEC[ICD9: 311] Vernoica Daigle MD, [facility] CPT-4: 29384 07/15/2014 Plan of Care Planned Activity Notes Codes Status Date Visit Plan: Hypertension - well controlled - continue with current medications, continue with no added salt diet. Pt has been encouraged to exercise daily. The pt has been advised to call the office if there are any acute concerns about change in blood pressure readings at home. Edema - pt has been advised to elevate legs to prevent dependent edema, compression has been recommended to help to naturally decrease peripheral edema. Diuretic use has been discussed and pt has been instructed in appropriate use of such medication as necessary to further attempt to reduce peripheral edema. Increase the metalozone to three times a week and take it in the afternoon around 3pm. Atrial Fibrillation - pt on chronic anticoagulation and is currently rate controlled. The pt is to have labs done as appropriate to monitor medication levels and is to report if they start to feel as if their heart rate is becoming uncontrolled. Chronic Depression and anxiety - the pt has symptoms of chronic anxiety and depression that have been fairly well controlled since the last office visit. The pt has expected periods of exacerbation with abatement of the symptoms with change in situational exposure. No change in current medications. 03/07/2017 Appointment: Veronica Daigle WPtel: [address] [place], [place] [phone] (15 min) Moderate 03/07/2017 Patient Education: Patient Medication Summary Completed 03/07/2017 Visit Plan: Anxiety - the patient has uncontrolled anxiety and will benefit from an SSRI on a daily basis to attempt control of the symptoms of anxiety (tachycardia, overwhelming sensations, stress, insomnia, etc ). I also believe that the patient will benefit from very low dose of prn benzodiazepine. Pt is aware of the risks and benefits of treatment with the above medications. Hypertension - well controlled - continue with current medications, continue with no added salt diet. Pt has been encouraged to exercise daily. The pt has been advised to call the office if there are any acute concerns about change in blood pressure readings at home. Atrial Fibrillation - pt on chronic anticoagulation and is currently rate controlled. The pt is to have labs done as appropriate to monitor medication levels and is to report if they start to feel as if their heart rate is becoming uncontrolled. 01/24/2017 Appointment: Merle Esparza WPtel: [phone] (30 min) Complex 01/24/2017 Patient Education: Patient Medication Summary Completed 01/24/2017 Patient Education: Hypertension Completed 01/24/2017 Visit Plan: Chest pain, malaise - recent illness - will check labs and EKG - will treat as indicated - pt is to push fluids - pt is to notify clinic if symptoms do not improve, if they worsen, or with any questions , changes or concerns. 09/29/2016 Appointment: Opal Boyle WPtel: [phone] (15 min) Moderate 09/29/2016 Appointment: Opal Boyle WPtel: [facility] (15 min) Moderate 09/29/2016 Patient Education: Patient Medication Summary Completed 09/29/2016 Visit Plan: Hypertension - well controlled - continue with current medications, continue with no added salt diet. Pt has been encouraged to exercise daily. The pt has been advised to call the office if there are any acute concerns about change in blood pressure readings at home. Atrial Fibrillation - pt on chronic anticoagulation and is currently rate controlled. The pt is to have labs done as appropriate to monitor medication levels and is to report if they start to feel as if their heart rate is becoming uncontrolled. Edema - pt has been advised to elevate legs to prevent dependent edema, compression has been recommended to help to naturally decrease peripheral edema. Diuretic use has been discussed and pt has been instructed in appropriate use of such medication as necessary to further attempt to reduce peripheral edema. Chronic back pain-refill hydrocodone for prn use Chronic anxiety - the pt has symptoms of chronic anxiety and depression that have been fairly well controlled since the last office visit. The pt has expected periods of exacerbation with abatement of the symptoms with change in situational exposure. No change in current medications. 09/13/2016 Appointment: Merle Esparza WPtel: [phone] (30 min) Complex 09/13/2016 Patient Education: Patient Medication Summary Completed 09/13/2016 Visit Plan: Hypertension - well controlled - continue with current medications, continue with no added salt diet. Pt has been encouraged to exercise daily. The pt has been advised to call the office if there are any acute concerns about change in blood pressure readings at home. Atrial Fibrillation - pt on chronic anticoagulation and is currently rate controlled. The pt is to have labs done as appropriate to monitor medication levels and is to report if they start to feel as if their heart rate is becoming uncontrolled. 05/31/2016 Appointment: [facility]Ptel[phone] (30 min[facility] Complex 05/31/2016 Patient Education: Patient Medication Summary Completed 05/31/2016 Visit Plan: Hypertension - too well controlled - medications adjusted, continue with no added salt diet. Pt has been encouraged to exercise daily. The pt has been advised to call the office if there are any acute concerns about change in blood pressure readings at home. Edema - pt has been advised to elevate legs to prevent dependent edema, compression has been recommended to help to naturally decrease peripheral edema. Diuretic use has been discussed and pt has been instructed in appropriate use of such medication as necessary to further attempt to reduce peripheral edema. CHECK LABS TODAY 05/10/2016 Appointment: Merle Esparza WPtel[phone] (30 min) Complex 05/10/2016 Patient Education: Patient Medication Summary Completed 05/10/2016 Patient Education: Hypertension Completed 05/10/2016 Appointment: Merle Esparza WPtel: [phone] [phone] (15 min) Moderate 05/09/2016 Visit Plan: Afib-not rate controlled-discussed with Dr Daigle-add metoprolol 25mg 1/2 tab twice daily-decrease lisinopril-monitor blood pressure and heart rate-follow up in the office in 2 weeks-sooner if needed Chronic Depression and anxiety - the pt has symptoms of chronic anxiety and depression that have been fairly well controlled since the last office visit. The pt has expected periods of exacerbation with abatement of the symptoms with change in situational exposure. No change in current medications. 04/25/2016 Appointment: Merle Esparza WPtel: [phone] (30 min) Complex 04/25/2016 Patient Education: Patient Medication Summary Completed 04/25/2016 Patient Education: Hypertension Completed 04/25/2016 Appointment: Merle Esparza WPtel: [address] [place], [place] [phone] [place] [address] (15 min) Moderate 02/12/2016 Visit Plan: Hypertension - well controlled - continue with current medications, continue with no added salt diet. Pt has been encouraged to exercise daily. The pt has been advised to call the office if there are any acute concerns about change in blood pressure readings at home. Edema - pt has been advised to elevate legs to prevent dependent edema, compression has been recommended to help to naturally decrease peripheral edema. Diuretic use has been discussed and pt has been instructed in appropriate use of such medication as necessary to further attempt to reduce peripheral edema. Sinusitis-improving- finish all of abx Atrial Fibrillation - pt on chronic anticoagulation and is currently rate controlled. The pt is to have labs done as appropriate to monitor medication levels and is to report if they start to feel as if their heart rate is becoming uncontrolled. 01/14/2016 Appointment: Merle Esparza WPtel: [facility]5 [phone] (30 min) Complex 01/14/2016 Patient Education: Patient Medication Summary Completed 01/14/2016 Patient Education: Hypertension Completed 01/14/2016 Visit Plan: Chronic Depression and anxiety - the pt has symptoms of chronic anxiety and depression that have been fairly well controlled since the last office visit. The pt has expected periods of exacerbation with abatement of the symptoms with change in situational exposure. No change in current medications. Hypertension - well controlled - continue with current medications, continue with no added salt diet. Pt has been encouraged to exercise daily. The pt has been advised to call the office if there are any acute concerns about change in blood pressure readings at home. Edema - pt has been advised to elevate legs to prevent dependent edema, compression has been recommended to help to naturally decrease peripheral edema. Diuretic use has been discussed and pt has been instructed in appropriate use of such medication as necessary to further attempt to reduce peripheral edema. 12/10/2015 Appointment: Merle Esparza WPtel: [address] [place] [address] (30 min) Complex 12/10/2015 Patient Education: Patient Medication Summary Completed 12/10/2015 Patient Education: Hypertension Completed 12/10/2015 Visit Plan: Hypertension - well controlled - continue with current medications, continue with no added salt diet. Pt has been encouraged to exercise daily. The pt has been advised to call the office if there are any acute concerns about change in blood pressure readings at home. Edema - pt has been advised to elevate legs to prevent dependent edema, compression has been recommended to help to naturally decrease peripheral edema. Diuretic use has been discussed and pt has been instructed in appropriate use of such medication as necessary to further attempt to reduce peripheral edema. 11/12/2015 Appointment: Merle Esparza WPtel: [address] [place] [address] (15 min) Moderate 11/12/2015 Patient Education: Patient Medication Summary Completed 11/12/2015 Appointment: Merle Esparza WPtel: [facility] (15 min) Moderate 10/22/2015 Visit Plan: Hypertension - well controlled - continue with current medications, continue with no added salt diet. Pt has been encouraged to exercise daily. The pt has been advised to call the office if there are any acute concerns about change in blood pressure readings at home. Edema - pt has been advised to elevate legs to prevent dependent edema, compression has been recommended to help to naturally decrease peripheral edema. Diuretic use has been discussed and pt has been instructed in appropriate use of such medication as necessary to further attempt to reduce peripheral edema. 10/08/2015 Appointment: Merle Esparza WPtel: [address] (15 min) Moderate 10/08/2015 Patient Education: Patient Medication Summary Completed 10/08/2015 Visit Plan: Edema - pt has been advised to elevate legs to prevent dependent edema, compression has been recommended to help to naturally decrease peripheral edema. Diuretic use has been discussed and pt has been instructed in appropriate use of such medication as necessary to further attempt to reduce peripheral edema. Hypertension - well controlled - continue with current medications, continue with no added salt diet. Pt has been encouraged to exercise daily. The pt has been advised to call the office if there are any acute concerns about change in blood pressure readings at home. 09/29/2015 Appointment: Merle Esparza WPtel: [facility] (15 min) Moderate 09/29/2015 Patient Education: Patient Medication Summary Completed 09/29/2015 Patient Education: Hypertension Completed 09/29/2015 Visit Plan: Hypertension - well controlled - continue with current medications, continue with no added salt diet. Pt has been encouraged to exercise daily. The pt has been advised to call the office if there are any acute concerns about change in blood pressure readings at home. Atrial Fibrillation - pt on chronic anticoagulation and is currently rate controlled. The pt is to have labs done as appropriate to monitor medication levels and is to report if they start to feel as if their heart rate is becoming uncontrolled. Edema - pt has been advised to elevate legs to prevent dependent edema, compression has been recommended to help to naturally decrease peripheral edema. Diuretic use has been discussed and pt has been instructed in appropriate use of such medication as necessary to further attempt to reduce peripheral edema. 09/22/2015 Appointment: Merle Esparza WPtel: [address] [id number] [place] [address] (30 min) Complex 09/22/2015 Patient Education: Patient Medication Summary Completed 09/22/2015 Patient Education: Hypertension Completed 09/22/2015 Visit Plan: Hypertension - well controlled - continue with current medications, continue with no added salt diet. Pt has been encouraged to exercise daily. The pt has been advised to call the office if there are any acute concerns about change in blood pressure readings at home. Atrial Fibrillation - pt on chronic anticoagulation and is currently rate controlled. The pt is to have labs done as appropriate to monitor medication levels and is to report if they start to feel as if their heart rate is becoming uncontrolled. 07/21/2015 Patient Education: Patient Medication Summary Completed 07/21/2015 Visit Plan: Hypertension - well controlled - continue with current medications, continue with no added salt diet. Pt has been encouraged to exercise daily. The pt has been advised to call the office if there are any acute concerns about change in blood pressure readings at home. Afib-rate controlled-currently off coumadin due to GI bleed-appt for colonscopy next week- will restart anti coagulant if able Jbjlt-riaepvai-hm change in medications Anemia-received 1 unit blood last week-hgb repeated yesterday and has increased from 9.5 to 9.8-continue to monitor 06/23/2015 Appointment: Merle Esparza WPtel: [phone] (30 min) Complex 06/23/2015 Patient Education: Patient Medication Summary Completed 06/23/2015 Visit Plan: Anemia-stools hemacult positive-patient sent to outpatient for a unit of blood and single dose of IV lasix. Will refer for colonoscopy-patient started on omeprazole twice daily. Repeat labs Monday. Edema - pt has been advised to elevate legs to prevent dependent edema, compression has been recommended to help to naturally decrease peripheral edema. Diuretic use has been discussed and pt has been instructed in appropriate use of such medication as necessary to further attempt to reduce peripheral edema. Chronic pain-refill hydrocodone for prn use 06/12/2015 Patient Education: Patient Medication Summary Completed 06/12/2015 Visit Plan: Hypertension - well controlled - continue with current medications, continue with no added salt diet. Pt has been encouraged to exercise daily. The pt has been advised to call the office if there are any acute concerns about change in blood pressure readings at home. Atrial Fibrillation - pt on chronic anticoagulation and is currently rate controlled. The pt is to have labs done as appropriate to monitor medication levels and is to report if they start to feel as if their heart rate is becoming uncontrolled. Edema - pt has been advised to elevate legs to prevent dependent edema, compression has been recommended to help to naturally decrease peripheral edema. Diuretic use has been discussed and pt has been instructed in appropriate use of such medication as necessary to further attempt to reduce peripheral edema. Chronic Anticoagulant use - Pt has been counseled about the anticoagulant, need for serial monitoring, and need for the pt to alert the physician as to any new bruising, or acute bleeding. Therapeutic goal for INR is between 2.0 and 3.5. 06/02/2015 Appointment: (30 min) Complex 06/02/2015 Patient Education: Patient Medication Summary Completed 06/02/2015 Patient Education: Hypertension Completed 06/02/2015 Visit Plan: Hypertension - well controlled - continue with current medications, continue with no added salt diet. Pt has been encouraged to exercise daily. The pt has been advised to call the office if there are any acute concerns about change in blood pressure readings at home. Vitamin D deficiency-check level today Depression-check vitamin D level-add vitamin B12 1000mcg daily Atrial Fibrillation - pt on chronic anticoagulation and is currently rate controlled. The pt is to have labs done as appropriate to monitor medication levels and is to report if they start to feel as if their heart rate is becoming uncontrolled. Chronic Anticoagulant use - Pt has been counseled about the anticoagulant, need for serial monitoring, and need for the pt to alert the physician as to any new bruising, or acute bleeding. Therapeutic goal for INR is between 2.0 and 3.5. 03/31/2015 Patient Education: Patient Medication Summary Completed 03/31/2015 Patient Education: Patient Medication Summary Completed 03/31/2015 Patient Education: Hypertension Completed 03/31/2015 Visit Plan: Hypertension - well controlled - continue with current medications, continue with no added salt diet. Pt has been encouraged to exercise daily. The pt has been advised to call the office if there are any acute concerns about change in blood pressure readings at home. Allergies - chronic - recommended pt to use allergy medication as prescribed. Pt has been counseled as to the appropriate use of the medication. Pt to call if allergy symptoms are not controlled with the medication. If using nasal spray, instructions as follows: Nasal spray- use twice daily, one spray per nostril twice daily, after 30 minutes, rinse out nose with saline spray.. Use opposite hand per nostril to spray in the nasal steroid allergy spray. Kenalog injection today in the office 01/30/2015 Appointment: (30 min) Complex 01/30/2015 Patient Education: Patient Medication Summary Completed 01/30/2015 Patient Education: Hypertension Completed 01/30/2015 Appointment: Ver[facility] Da[facility]le [facility]el[id number] (30 min) Complex 01/28/2015 Appointment: (30 min) Complex 01/27/2015 Visit Plan: Edema - pt has been advised to elevate legs to prevent dependent edema, compression has been recommended to help to naturally decrease peripheral edema. Diuretic use has been discussed and pt has been instructed in appropriate use of such medication as necessary to further attempt to reduce peripheral edema. Diarrhea - recommended bland diet, low fat diet, start on probiotic, and rehydrate with gatorade-like product. Pt to call if feeling worse, diarrhea becomes bloody, or does not improve with above recommendations. Pt to call for acute worsening of stomach upset or stomach pain. Hypertension - well controlled - continue with current medications, continue with no added salt diet. Pt has been encouraged to exercise daily. The pt has been advised to call the office if there are any acute concerns about change in blood pressure readings at home. 12/22/2014 Appointment: [facility] Esp[facility]Ptel[phone] (30 min) Complex 12/22/2014 Patient Education: Patient Medication Summary Completed 12/22/2014 Appointment: (15 min) Moderate 11/21/2014 Appointment: (30 min) Complex 11/18/2014 Appointment: Lab Draw 11/07/2014 Patient Education: Patient Medication Summary Completed 11/07/2014 Visit Plan: Hypertension - well controlled - continue with current medications, continue with no added salt diet. Pt has been encouraged to exercise daily. The pt has been advised to call the office if there are any acute concerns about change in blood pressure readings at home. Oropharyngeal dysphagia - recommended pt to have the swallow study - she had to cancel the last study - they would like to see if they can get a study on a Monday if possible. 10/29/2014 Patient Education: Patient Medication Summary Completed 10/29/2014 Visit Plan: Pneumonia - Pt has been diagnosed with pneumonia by physical exam. A chest xray has been ordered as have antibiotics. The pt is aware of the diagnosis and the need for acute treatment of this illness. Dysphagia-schedule swallow study Low back pain-recent fall-xray lumbar spine ordered Generalized weakness-falling episode-recommend home health evaluation Chronic Anticoagulant use - Pt has been counseled about the anticoagulant, need for serial monitoring, and need for the pt to alert the physician as to any new bruising, or acute bleeding. Therapeutic goal for INR is between 2.0 and 3.5. Check PT/INR due to antibiotics. 10/14/2014 Visit Plan: Pneumonia - Pt has been diagnosed with pneumonia by physical exam. A chest xray has been ordered as have antibiotics. The pt is aware of the diagnosis and the need for acute treatment of this illness. Patient also has COPD-will order nebulizer machine for albuterol treatments Dysphagia-schedule swallow study Low back pain-recent fall-xray lumbar spine ordered Generalized weakness-falling episode-recommend home health evaluation Chronic Anticoagulant use - Pt has been counseled about the anticoagulant, need for serial monitoring, and need for the pt to alert the physician as to any new bruising, or acute bleeding. Therapeutic goal for INR is between 2.0 and 3.5. Check PT/INR due to antibiotics. 10/14/2014 Appointment: (15 min) Moderate 10/14/2014 Patient Education: Patient Medication Summary Completed 10/14/2014 Visit Plan: Hypertension - well controlled - continue with current medications, continue with no added salt diet. Pt has been encouraged to exercise daily. The pt has been advised to call the office if there are any acute concerns about change in blood pressure readings at home. Esophageal Reflux - the patient has been counseled against excessive intake of caffeine, spicy foods, peppermint, and cinnamon - all of which can exacerbate esophageal reflux. The patient is to take medications as prescribed and call the office if the symptoms are not improving. Atrial Fibrillation - pt on chronic anticoagulation and is currently rate controlled. The pt is to have labs done as appropriate to monitor medication levels and is to report if they start to feel as if their heart rate is becoming uncontrolled. Chronic Anticoagulant use - Pt has been counseled about the anticoagulant, need for serial monitoring, and need for the pt to alert the physician as to any new bruising, or acute bleeding. Therapeutic goal for INR is between 2.0 and 3.5. Leg cramps-check labs -cbc, mag Vitamin D deficiency-check vitamin D 09/19/2014 Appointment: (15 min) Moderate 09/19/2014 Patient Education: Patient Medication Summary Completed 09/19/2014 Patient Education: Hypertension Completed 09/19/2014 Visit Plan: Edema - pt has been advised to elevate legs to prevent dependent edema, compression has been recommended to help to naturally decrease peripheral edema. Diuretic use has been discussed and pt has been instructed in appropriate use of such medication as necessary to further attempt to reduce peripheral edema. Chronic Anticoagulant use - Pt has been counseled about the anticoagulant, need for serial monitoring, and need for the pt to alert the physician as to any new bruising, or acute bleeding. Therapeutic goal for INR is between 2.0 and 3.5. 08/22/2014 Appointment: (30 min) Complex 08/22/2014 Patient Education: Patient Medication Summary Completed 08/22/2014 Care Plan: COMPLETE CBC AUTOMATED LOINC : 08705-8 Ordered 08/22/2014 Visit Plan: Itching/Skin irritation- Resolved. Continue Benadryl cream PRN. Warfarin Therapy- Continue Warfarin to 3 mg PO Daily. Repeat PT/INR in 2 weeks. Pt verbalizes understanding of this plan. Return for office appointment for routine check up or as needed. Maintenance medication refills provided per pt request to "keep everything on the same schedule." 08/04/2014 Visit Plan: Itching/Skin irritation- Resolved. Continue Benadryl cream PRN. Warfarin Therapy- Continue Warfarin to 3 mg PO Daily. Repeat PT/INR in 2 weeks. Pt verbalizes understanding of this plan. Return for office appointment for routine check up or as needed. Maintenance medication refills provided per pt request to "keep everything on the same schedule." 08/04/2014 Appointment: (10 min) Simple 08/04/2014 Patient Education: Patient Medication Summary Completed 08/04/2014 Patient Education: Hypertension Completed 08/04/2014 Visit Plan: Itching- Benadryl cream to right arm itching areas as needed. RX sent to pt's pharmacy. Warfarin Therapy- PT 16.0, INR 1.3 Increase Warfarin to 3 mg PO Daily. Repeat PT/INR in 1 week. Pt verbalizes understanding of this plan. Return for office appointment in 10 days or sooner if needed. 07/24/2014 Appointment: Yumiko Dickinsonl[id number] (10 min) Simple 07/24/2014 Patient Education: Patient Medication Summary Completed 07/24/2014 Visit Plan: Hypertension - well controlled - continue with current medications EXCEPT - stop benzapril due to cough and start on losartan - monitor symptoms. , continue with no added salt diet. Pt has been encouraged to exercise daily. The pt has been advised to call the office if there are any acute concerns about change in blood pressure readings at home. Cough - due to SUJATA Inhibitor - monitor cough. Depression - pt has declined medication changes. She is not interested in counseling. Afib - pt has been counseled that she needs an ECHO and needs to see cardiology - she has refused to see a coil spring assembler and reports to me that she will not go to the hospital and will not have the recommended testing. She states that she does not have any family left, and is not willing to have any further testing/treatment. Labs to be checked today for coumadin levels to be further adjusted. 07/15/2014 Appointment: Veronica Daigle [facility]Ptel: [phone] [id number] [place] ([place] New Patient 07/15/2014 Patient Education: Patient Medication Summary Completed 07/15/2014 Patient Education: Hypertension Completed 07/15/2014 Instructions Comment WE WILL CHECK YOUR PT/INR (WARFARIN LEVEL) TODAY I SENT A PRESCRIPTION FOR LASIX (FUROSEMIDE) TO [facility] YOU CAN TAKE 1 TAB DAILY NEEDED FOR SWELLING TAKE POTASSIUM IF YOU TAKE LASIX IF YOU TAKE THE LASIX MORE THAN 3-4 DAYS IN A ROW, CALL US INCREASE YOUR PROTEIN INTAKE TO HELP DECREASE THE SWELLING AND MAINTAIN YOUR WEIGHT . Edema - pt has been advised to elevate legs to prevent dependent edema, compression has been recommended to help to naturally decrease peripheral edema. Diuretic use has been discussed and pt has been instructed in appropriate use of such medication as necessary to further attempt to reduce peripheral edema. Chronic Anticoagulant use - Pt has been counseled about the anticoagulant, need for serial monitoring, and need for the pt to alert the physician as to any new bruising, or acute bleeding. Therapeutic goal for INR is between 2.0 and 3.5. TAKE AN EXTRA LASIX AND POASSIUM PILL AT NOON FOR 3 DAYS. . Hypertension - well controlled - continue with current medications, continue with no added salt diet. Pt has been encouraged to exercise daily. The pt has been advised to call the office if there are any acute concerns about change in blood pressure readings at home. Atrial Fibrillation - pt on chronic anticoagulation and is currently rate controlled. The pt is to have labs done as appropriate to monitor medication levels and is to report if they start to feel as if their heart rate is becoming uncontrolled. Edema - pt has been advised to elevate legs to prevent dependent edema, compression has been recommended to help to naturally decrease peripheral edema. Diuretic use has been discussed and pt has been instructed in appropriate use of such medication as necessary to further attempt to reduce peripheral edema. Chronic Anticoagulant use - Pt has been counseled about the anticoagulant, need for serial monitoring, and need for the pt to alert the physician as to any new bruising, or acute bleeding. Therapeutic goal for INR is between 2.0 and 3.5. Refill prescription of Lasix 40 mg daily. Finish antibiotic for sinus infection. RTC with no improvement of symptoms following completion of cefdinir. . Hypertension - well controlled - continue with current medications, continue with no added salt diet. Pt has been encouraged to exercise daily. The pt has been advised to call the office if there are any acute concerns about change in blood pressure readings at home. Edema - pt has been advised to elevate legs to prevent dependent edema, compression has been recommended to help to naturally decrease peripheral edema. Diuretic use has been discussed and pt has been instructed in appropriate use of such medication as necessary to further attempt to reduce peripheral edema. Juqmbczsm-vembziudt-[id number] all of abx Atrial Fibrillation - pt on chronic anticoagulation and is currently rate controlled. The pt is to have labs done as appropriate to monitor medication levels and is to report if they start to feel as if their heart rate is becoming uncontrolled. DECREASE METOPROLOL TO 25MG 1/2 TAB DAILY IN THE EVENING ( STOP TAKING THE MORNING DOSE) CONTINUE TO MONITOR BLOOD PRESSURE AND PULSE DAILY CALL IF BLOOD PRESSURE 100/50 OR LESS WE WILL SEND ORDERS FOR HOME HEALTH TO DRAW YOUR LABS-CBC, CMP, PT/INR . Hypertension - too well controlled - medications adjusted, continue with no added salt diet. Pt has been encouraged to exercise daily. The pt has been advised to call the office if there are any acute concerns about change in blood pressure readings at home. Edema - pt has been advised to elevate legs to prevent dependent edema, compression has been recommended to help to naturally decrease peripheral edema. Diuretic use has been discussed and pt has been instructed in appropriate use of such medication as necessary to further attempt to reduce peripheral edema. CHECK LABS TODAY LEXAPRO 5MG DAILY IN THE EVENING CHECK PT/INR NEXT WEEK . Anxiety - the patient has uncontrolled anxiety and will benefit from an SSRI on a daily basis to attempt control of the symptoms of anxiety (tachycardia, overwhelming sensations, stress, insomnia, etc). I also believe that the patient will benefit from very low dose of prn benzodiazepine. Pt is aware of the risks and benefits of treatment with the above medications. Hypertension - well controlled - continue with current medications, continue with no added salt diet. Pt has been encouraged to exercise daily. The pt has been advised to call the office if there are any acute concerns about change in blood pressure readings at home. Atrial Fibrillation - pt on chronic anticoagulation and is currently rate controlled. The pt is to have labs done as appropriate to monitor medication levels and is to report if they start to feel as if their heart rate is becoming uncontrolled. INCREASE LASIX 40MG TO TWICE DAILY X 1 WEEK THEN GO BACK TO DAILY INCREASE POTASSIUM TO TWICE DAILY X 1 WEEK THEN GO BACK TO DAILY . Hypertension - well controlled - continue with current medications, continue with no added salt diet. Pt has been encouraged to exercise daily. The pt has been advised to call the office if there are any acute concerns about change in blood pressure readings at home. Atrial Fibrillation - pt on chronic anticoagulation and is currently rate controlled. The pt is to have labs done as appropriate to monitor medication levels and is to report if they start to feel as if their heart rate is becoming uncontrolled. Edema - pt has been advised to elevate legs to prevent dependent edema, compression has been recommended to help to naturally decrease peripheral edema. Diuretic use has been discussed and pt has been instructed in appropriate use of such medication as necessary to further attempt to reduce peripheral edema. . Hypertension - well controlled - continue with current medications, continue with no added salt diet. Pt has been encouraged to exercise daily. The pt has been advised to call the office if there are any acute concerns about change in blood pressure readings at home. Vitamin D deficiency-check level today Depression-check vitamin D level-add vitamin B12 1000mcg daily Atrial Fibrillation - pt on chronic anticoagulation and is currently rate controlled. The pt is to have labs done as appropriate to monitor medication levels and is to report if they start to feel as if their heart rate is becoming uncontrolled. Chronic Anticoagulant use - Pt has been counseled about the anticoagulant, need for serial monitoring, and need for the pt to alert the physician as to any new bruising, or acute bleeding. Therapeutic goal for INR is between 2.0 and 3.5. . Hypertension - well controlled - continue with current medications, continue with no added salt diet. Pt has been encouraged to exercise daily. The pt has been advised to call the office if there are any acute concerns about change in blood pressure readings at home. Oropharyngeal dysphagia - recommended pt to have the swallow study - she had to cancel the last study - they would like to see if they can get a study on a Monday if possible. take an extra lasix and potassium at noon for the next 3 days we will give lasix IV today at the hospital so start the extra lasix tomorrow omeprazole twice daily call next week with daily weight readings take 2 potassium today when you get home !! . Anemia-stools hemacult positive-patient sent to outpatient for a unit of blood and single dose of IV lasix. Will refer for colonoscopy-patient started on omeprazole twice daily. Repeat labs Monday. Edema - pt has been advised to elevate legs to prevent dependent edema, compression has been recommended to help to naturally decrease peripheral edema. Diuretic use has been discussed and pt has been instructed in appropriate use of such medication as necessary to further attempt to reduce peripheral edema. Chronic pain-refill hydrocodone for prn use START METOPROLOL 12.5MG TWICE DAILY (YOU WILL HAVE TO TAKE 1/2 OF A 25MG TABLET) IF YOU ARE STILL TAKING LISINOPRIL, CUT IT IN 1/2 AND TAKE 1/2 TAB DAILY CONTINUE TO MONITOR BLOOD PRESSURE AND PULSE AT HOME AND BRING READINGS TO APPT IN 2 WEEKS . Afib-not rate controlled-discussed with Dr Daigle-add metoprolol 25mg 1/2 tab twice daily-decrease lisinopril-monitor blood pressure and heart rate- follow up in the office in 2 weeks-sooner if needed Chronic Depression and anxiety - the pt has symptoms of chronic anxiety and depression that have been fairly well controlled since the last office visit. The pt has expected periods of exacerbation with abatement of the symptoms with change in situational exposure. No change in current medications. CONTINUE LASIX TWICE DAILY X 7 DAYS THEN DECREASE TO DAILY TAKE YOUR POTASSIUM TWICE DAILY X 7 DAYS THEN DECREASE TO DAILY FOLLOW UP IN 10 DAYS COMPRESSION STOCKINGS ON IN THE MORNING AND OFF AT BEDTIME CALL IF YOUR WEIGHT INCREASES BY 2 LBS . Edema - pt has been advised to elevate legs to prevent dependent edema, compression has been recommended to help to naturally decrease peripheral edema. Diuretic use has been discussed and pt has been instructed in appropriate use of such medication as necessary to further attempt to reduce peripheral edema. Hypertension - well controlled - continue with current medications, continue with no added salt diet. Pt has been encouraged to exercise daily. The pt has been advised to call the office if there are any acute concerns about change in blood pressure readings at home. . Chest pain, malaise - recent illness - will check labs and EKG - will treat as indicated - pt is to push fluids - pt is to notify clinic if symptoms do not improve, if they worsen, or with any questions, changes or concerns. STOP THE BENZAPRIL START LOSARTAN THE BENZAPRIL IS CAUSING A CHRONIC COUGH - IT WILL TAKE ABOUT 10 DAYS TO GET THE BENZAPRIL OUT OF YOUR BODY AND FOR THE CHRONIC COUGH TO SLOW DOWN AND STOP. PT IS TO GET SOME SWEET OIL TO USE IN HER LEFT EAR AT NIGHT X 1 WEEK FOR THE IMPACTED EAR WAX IN LEFT EAR CANAL. . Hypertension - well controlled - continue with current medications EXCEPT - stop benzapril due to cough and start on losartan - monitor symptoms. , continue with no added salt diet. Pt has been encouraged to exercise daily. The pt has been advised to call the office if there are any acute concerns about change in blood pressure readings at home. Cough - due to SUJATA Inhibitor - monitor cough. Depression - pt has declined medication changes. She is not interested in counseling. Afib - pt has been counseled that she needs an ECHO and needs to see cardiology - she has refused to see a coil spring assembler and reports to me that she will not go to the hospital and will not have the recommended testing. She states that she does not have any family left, and is not willing to have any further testing/ treatment. Labs to be checked today for coumadin levels to be further adjusted. . Hypertension - well controlled - continue with current medications, continue with no added salt diet. Pt has been encouraged to exercise daily. The pt has been advised to call the office if there are any acute concerns about change in blood pressure readings at home. Atrial Fibrillation - pt on chronic anticoagulation and is currently rate controlled. The pt is to have labs done as appropriate to monitor medication levels and is to report if they start to feel as if their heart rate is becoming uncontrolled. START METOLAZONE 5MG TWICE PER WEEK-TUESDAYS AND MONDAY CONTINUE LASIX 40MG DAILY MONITOR WEIGHT AND CALL IN 2 WEEKS WITH WEIGHTS . Hypertension - well controlled - continue with current medications, continue with no added salt diet. Pt has been encouraged to exercise daily. The pt has been advised to call the office if there are any acute concerns about change in blood pressure readings at home. Edema - pt has been advised to elevate legs to prevent dependent edema, compression has been recommended to help to naturally decrease peripheral edema. Diuretic use has been discussed and pt has been instructed in appropriate use of such medication as necessary to further attempt to reduce peripheral edema. Wear compression socks or sujata wraps daily and prop legs up while sitting. Will continue Lasix and potassium. Check blood pressures at home. Call office with concerns. Probiotics twice a day. Home health to check weights and swelling. Will continue physical therapy. If diarrhea gets worse or does not improve notify clinic. . Edema - pt has been advised to elevate legs to prevent dependent edema, compression has been recommended to help to naturally decrease peripheral edema. Diuretic use has been discussed and pt has been instructed in appropriate use of such medication as necessary to further attempt to reduce peripheral edema. Diarrhea - recommended bland diet, low fat diet, start on probiotic, and rehydrate with gatorade-like product. Pt to call if feeling worse, diarrhea becomes bloody, or does not improve with above recommendations. Pt to call for acute worsening of stomach upset or stomach pain. Hypertension - well controlled - continue with current medications, continue with no added salt diet. Pt has been encouraged to exercise daily. The pt has been advised to call the office if there are any acute concerns about change in blood pressure readings at home. OK TO GO BACK TO DAILY ON LASIX AND POTASSIUM . Hypertension - well controlled - continue with current medications, continue with no added salt diet. Pt has been encouraged to exercise daily. The pt has been advised to call the office if there are any acute concerns about change in blood pressure readings at home. Edema - pt has been advised to elevate legs to prevent dependent edema, compression has been recommended to help to naturally decrease peripheral edema. Diuretic use has been discussed and pt has been instructed in appropriate use of such medication as necessary to further attempt to reduce peripheral edema. Have your blood drawn in 2 weeks to check coumadin levels. . Itching/Skin irritation- Resolved. Continue Benadryl cream PRN. Warfarin Therapy- Continue Warfarin to 3 mg PO Daily. Repeat PT/INR in 2 weeks. Pt verbalizes understanding of this plan. Return for office appointment for routine check up or as needed. Maintenance medication refills provided per pt request to "keep everything on the same schedule." Have your blood drawn in 2 weeks to check coumadin levels. . Itching/Skin irritation- Resolved. Continue Benadryl cream PRN. Warfarin Therapy- Continue Warfarin to 3 mg PO Daily. Repeat PT/INR in 2 weeks. Pt verbalizes understanding of this plan. Return for office appointment for routine check up or as needed. Maintenance medication refills provided per pt request to "keep everything on the same schedule." . Hypertension - well controlled - continue with current medications, continue with no added salt diet. Pt has been encouraged to exercise daily. The pt has been advised to call the office if there are any acute concerns about change in blood pressure readings at home. Atrial Fibrillation - pt on chronic anticoagulation and is currently rate controlled. The pt is to have labs done as appropriate to monitor medication levels and is to report if they start to feel as if their heart rate is becoming uncontrolled. increase the metalozone to three times a week and take it in the afternoon around 3pm . Hypertension - well controlled - continue with current medications, continue with no added salt diet. Pt has been encouraged to exercise daily. The pt has been advised to call the office if there are any acute concerns about change in blood pressure readings at home. Edema - pt has been advised to elevate legs to prevent dependent edema, compression has been recommended to help to naturally decrease peripheral edema. Diuretic use has been discussed and pt has been instructed in appropriate use of such medication as necessary to further attempt to reduce peripheral edema. Increase the metalozone to three times a week and take it in the afternoon around 3pm. Atrial Fibrillation - pt on chronic anticoagulation and is currently rate controlled. The pt is to have labs done as appropriate to monitor medication levels and is to report if they start to feel as if their heart rate is becoming uncontrolled. Chronic Depression and anxiety - the pt has symptoms of chronic anxiety and depression that have been fairly well controlled since the last office visit. The pt has expected periods of exacerbation with abatement of the symptoms with change in situational exposure. No change in current medications. . Chronic Depression and anxiety - the pt has symptoms of chronic anxiety and depression that have been fairly well controlled since the last office visit. The pt has expected periods of exacerbation with abatement of the symptoms with change in situational exposure. No change in current medications. Hypertension - well controlled - continue with current medications, continue with no added salt diet. Pt has been encouraged to exercise daily. The pt has been advised to call the office if there are any acute concerns about change in blood pressure readings at home. Edema - pt has been advised to elevate legs to prevent dependent edema, compression has been recommended to help to naturally decrease peripheral edema. Diuretic use has been discussed and pt has been instructed in appropriate use of such medication as necessary to further attempt to reduce peripheral edema. INCREASE YOUR OMEPRAZOLE TO TWICE DAILY . Hypertension - well controlled - continue with current medications, continue with no added salt diet. Pt has been encouraged to exercise daily. The pt has been advised to call the office if there are any acute concerns about change in blood pressure readings at home. Esophageal Reflux - the patient has been counseled against excessive intake of caffeine, spicy foods, peppermint, and cinnamon - all of which can exacerbate esophageal reflux. The patient is to take medications as prescribed and call the office if the symptoms are not improving. Atrial Fibrillation - pt on chronic anticoagulation and is currently rate controlled. The pt is to have labs done as appropriate to monitor medication levels and is to report if they start to feel as if their heart rate is becoming uncontrolled. Chronic Anticoagulant use - Pt has been counseled about the anticoagulant, need for serial monitoring, and need for the pt to alert the physician as to any new bruising, or acute bleeding. Therapeutic goal for INR is between 2.0 and 3.5. Leg cramps-check labs-cbc, mag Vitamin D deficiency-check vitamin D . Hypertension - well controlled - continue with current medications, continue with no added salt diet. Pt has been encouraged to exercise daily. The pt has been advised to call the office if there are any acute concerns about change in blood pressure readings at home. Afib-rate controlled-currently off coumadin due to GI bleed-appt for colonscopy next week-will restart anti coagulant if able Fjjge-[id number] change in medications Anemia-received 1 unit blood last week-hgb repeated yesterday and has increased from 9.5 to 9.8-continue to monitor KENALOG INJECTION TODAY IN THE OFFICE CALL IF YOUR ALLERGIES/CONGESTION DOES NOT RESOLVE . Hypertension - well controlled - continue with current medications, continue with no added salt diet. Pt has been encouraged to exercise daily. The pt has been advised to call the office if there are any acute concerns about change in blood pressure readings at home. Allergies - chronic - recommended pt to use allergy medication as prescribed. Pt has been counseled as to the appropriate use of the medication. Pt to call if allergy symptoms are not controlled with the medication. If using nasal spray, instructions as follows: Nasal spray- use twice daily, one spray per nostril twice daily, after 30 minutes, rinse out nose with saline spray.. Use opposite hand per nostril to spray in the nasal steroid allergy spray. Kenalog injection today in the office INCREASE PROTEIN INTAKE . Hypertension - well controlled - continue with current medications, continue with no added salt diet. Pt has been encouraged to exercise daily. The pt has been advised to call the office if there are any acute concerns about change in blood pressure readings at home. Atrial Fibrillation - pt on chronic anticoagulation and is currently rate controlled. The pt is to have labs done as appropriate to monitor medication levels and is to report if they start to feel as if their heart rate is becoming uncontrolled. Edema - pt has been advised to elevate legs to prevent dependent edema, compression has been recommended to help to naturally decrease peripheral edema. Diuretic use has been discussed and pt has been instructed in appropriate use of such medication as necessary to further attempt to reduce peripheral edema. Chronic back pain-refill hydrocodone for prn use Chronic anxiety - the pt has symptoms of chronic anxiety and depression that have been fairly well controlled since the last office visit. The pt has expected periods of exacerbation with abatement of the symptoms with change in situational exposure. No change in current medications. CHEST XRAY, LUMBAR SPINE Antibiotics sent to [facility] Take a probiotic while on the antibiotics REFER TO HOME [id number] PT/INR on , PT SWALLOW STUDY DX dysphagia Shun (neighbor) [phone] . Pneumonia - Pt has been diagnosed with pneumonia by physical exam. A chest xray has been ordered as have antibiotics. The pt is aware of the diagnosis and the need for acute treatment of this illness. Dysphagia-schedule swallow study Low back pain-recent fall-xray lumbar spine ordered Generalized weakness-falling episode-recommend home health evaluation Chronic Anticoagulant use - Pt has been counseled about the anticoagulant, need for serial monitoring, and need for the pt to alert the physician as to any new bruising, or acute bleeding. Therapeutic goal for INR is between 2.0 and 3.5. Check PT/INR due to antibiotics. CHEST XRAY, LUMBAR SPINE Antibiotics sent to [facility] Take a probiotic while on the antibiotics REFER TO HOME [id number] PT/INR on , PT SWALLOW STUDY DX dysphagia Shun (neighbor) [phone] . Pneumonia - Pt has been diagnosed with pneumonia by physical exam. A chest xray has been ordered as have antibiotics. The pt is aware of the diagnosis and the need for acute treatment of this illness. Patient also has COPD-will order nebulizer machine for albuterol treatments Dysphagia-schedule swallow study Low back pain-recent fall-xray lumbar spine ordered Generalized weakness-falling episode-recommend home health evaluation Chronic Anticoagulant use - Pt has been counseled about the anticoagulant, need for serial monitoring, and need for the pt to alert the physician as to any new bruising, or acute bleeding. Therapeutic goal for INR is between 2.0 and 3.5. Check PT/INR due to antibiotics. . Itching- Benadryl cream to right arm itching areas as needed. RX sent to pt's pharmacy. Warfarin Therapy- PT 16.0, INR 1.3 Increase Warfarin to 3 mg PO Daily. Repeat PT/INR in 1 week. Pt verbalizes understanding of this plan. Return for office appointment in 10 days or sooner if needed.
--- OUTSIDE RECORDS SUMMARY | 2017-04-05 11:20 | XMS REPORT | CCD ---
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 Name Role Phone PP Unavailable CCM Unavailable Summary Purpose Interface Exchange Insurance Providers Payer name Policy type / Coverage type Covered democrat ID Effective Begin Date Effective End Date WPS Medicare Part B Medicare Part B [id number] Unknown Unknown Family history Mother Diagnosis Age At Onset Hypertension Unknown Heart Attack Unknown Social History Social History Element Codes Description Effective Dates Marital status Unknown 07/15/2014 Marital status Unknown 07/15/2014 Number of children Unknown 0 07/15/2014 Number of children Unknown 0 07/15/2014 Employment Unknown Retired 07/15/2014 Employment Unknown Retired 07/15/[address]: 568296210 Has never smoked or chewed tobacco 07/15/[address]: 637299635 Has never smoked or chewed tobacco 07/15/[address]: 664450061 Never drinks alcohol 07/15/[address]: 794421523 Never drinks alcohol 07/15/2014 Allergies, Adverse Reactions, [...] Start Date Stop Date Status Fill Instructions lisinopril 10 mg tablet RxNorm: 100506 TAKE ONE-HALF TABLET BY MOUTH DAILY 03/10/2017 06/02/2018 Active metolazone 5 mg tablet RxNorm: 030198 1 Tablet(s) PO TIW 201703/01/2018 Active hydrocodone 7.5 mg-acetaminophen 325 mg tablet RxNorm: 135504 1-2 Tablet(s) PO Q4- 6H as needed pain 02/23/2017 No Stop Date Active omeprazole 20 mg capsule,delayed release RxNorm: 511500 Capsule(s) TAKE ONE CAPSULE BY MOUTH TWICE A DAY 02/08/2017 Active metolazone 5 mg tablet RxNorm: 192889 TAKE 1 TABLET BY MOUTH TWICE WEEKLY 02/08/2017 03/06/2017 Inactive Lexapro 5 mg tablet RxNorm: 345434 1 Tablet(s) PO QPM 201603/06/2017 Inactive hydrocodone 7.5 mg-acetaminophen 325 mg tablet RxNorm: 790975 1-2 Tablet(s) PO Q4- 6H as needed pain 01/16/2017 02/22/2017 Inactive Lasix 40 mg tablet RxNorm: 788355 TAKE ONE TABLET BY MOUTH DAILY 01/11/2017 10/07/2017 Active metoprolol tartrate 25 mg tablet RxNorm: 266640 TAKE 1/2 TABLET BY MOUTH TWO TIMES A DAY 01/11/2017 07/09/2017 Active allopurinol 300 mg tablet RxNorm: 170661 TAKE ONE TABLET BY MOUTH DAILY 01/09/2017 06/07/2017 Active hydrocodone 7.5 mg-acetaminophen 325 mg tablet RxNorm: 873060 1-2 Tablet(s) PO Q4- 6H as needed pain 12/06/2016 01/15/2017 Inactive lisinopril 10 mg tablet RxNorm: 898187 TAKE ONE-HALF TABLET BY MOUTH DAILY 12/02/2016 03/09/2017 Inactive buspirone 10 mg tablet RxNorm: 284846 TAKE ONE TABLET BY MOUTH THREE TIMES A DAY 10/25/2016 01/22/2017 Inactive buspirone 10 mg tablet RxNorm: 205170 TAKE ONE TABLET BY MOUTH THREE TIMES A DAY 10/25/2016 10/24/2016 Inactive hydrocodone 7.5 mg-acetaminophen 325 mg tablet RxNorm: 678076 1-2 or 2 Tablet(s) PO Q4-6H as needed pain 10/25/20162016 Inactive cyanocobalamin (vit B-12) 1,000 mcg/mL injection solution RxNorm: 062380 INJECT 1 ML INTRAMUSCULARLY 2 TIMES A MONTH FOR 2 MONTHS, THEN ONCE A MONTH THEREAFTER 10/24/2016 02/12/2017 Inactive metolazone 5 mg tablet RxNorm: 909415 TAKE 1 TABLET BY MOUTH TWICE WEEKLY 09/23/2016 01/12/2017 Inactive hydrocodone 7.5 mg-acetaminophen 325 mg tablet RxNorm: 890354 1-2 or 2 Tablet(s) PO Q4-6H as needed pain 09/13/20162016 Inactive Keflex 500 mg capsule RxNorm: 930754 1 Capsule(s) PO TID 201609/15/2016 Inactive Take with a probiotic BID Keflex 500 mg capsule RxNorm: 282204 1 Capsule(s) PO TID 201609/08/2016 Inactive Take with a probiotic BID metoprolol tartrate 25 mg tablet RxNorm: 651933 TAKE 1/2 TABLET BY MOUTH TWO TIMES A DAY 09/07/2016 01/04/2017 Inactive potassium chloride ER 10 mEq tablet,extended release RxNorm: 441417 TAKE TWO TABLETS BY MOUTH THREE TIMES A DAY 09/01/2016 02/27/2017 Inactive hydrocodone 7.5 mg-acetaminophen 325 mg tablet RxNorm: 539890 1 or 2 Tablet(s) PO Q4-6H as needed pain 08/31/20162016 Inactive omeprazole 20 mg capsule,delayed release RxNorm: 568131 TAKE ONE CAPSULE BY MOUTH TWICE A DAY 08/24/2016 02/07/2017 Inactive hydrocodone 7.5 mg-acetaminophen 325 mg tablet RxNorm: 611091 1 or 2 Tablet(s) PO Q4-6H as needed pain 08/05/20162016 Inactive lisinopril 10 mg tablet RxNorm: 326279 TAKE ONE-HALF TABLET BY MOUTH DAILY 07/28/2016 12/01/2016 Inactive hydrocodone 7.5 mg-acetaminophen 325 mg tablet RxNorm: 284958 1 or 2 Tablet(s) PO Q4-6H as needed pain 07/05/20162016 Inactive allopurinol 300 mg tablet RxNorm: 528650 TAKE ONE TABLET BY MOUTH DAILY 06/16/2016 12/12/2016 Inactive metoprolol tartrate 25 mg tablet RxNorm: 227708 TAKE 1/2 TABLET BY MOUTH TWO TIMES A DAY 06/16/2016 08/14/2016 Inactive buspirone 10 mg tablet RxNorm: 313716 TAKE ONE TABLET BY MOUTH THREE TIMES A DAY 06/15/2016 10/12/2016 Inactive hydrocodone 7.5 mg-acetaminophen 325 mg tablet RxNorm: 905931 1 or 2 Tablet(s) PO Q4-6H as needed pain 06/07/20162016 Inactive metoprolol tartrate 25 mg tablet RxNorm: 620969 1/2 Tablet(s) PO QPM 05/10/2016 06/08/2016 Inactive lisinopril 10 mg tablet RxNorm: 297946 1/2 Tablet(s) PO daily 04/26/2016 07/27/2016 Inactive hydrocodone 7.5 mg-acetaminophen 325 mg tablet RxNorm: 042448 1 or 2 Tablet(s) PO Q4-6H as needed pain 04/25/20162016 Inactive lisinopril 10 mg tablet RxNorm: 896251 1/2 Tablet(s) PO daily 04/25/2016 04/25/2016 Inactive metoprolol tartrate 25 mg tablet RxNorm: 713479 1/2 Tablet(s) PO BID 04/25/2016 05/09/2016 Inactive allopurinol 300 mg tablet RxNorm: 936182 TAKE ONE TABLET BY MOUTH DAILY 04/19/2016 06/15/2016 Inactive metolazone 5 mg tablet RxNorm: 220019 TAKE 1 TABLET BY MOUTH TWICE WEEKLY 04/19/2016 09/05/2016 Inactive warfarin 5 mg tablet RxNorm: 332263 1 Tablet(s) PO daily TAKE ONE TABLET BY MOUTH DAILY 03/21/2016 03/15/[address] Echevarria manages potassium chloride ER 10 mEq tablet,extended release RxNorm: 687340 2 Tablet(s) PO TID 03/21/2016 08/17/2016 Inactive potassium chloride ER 10 mEq tablet,extended release(part/ cryst) RxNorm: 6779502 2 Tablet(s) PO TID 03/11/2016 03/20/2016 Inactive Xanax 0.25 mg tablet RxNorm: 687418 1 Tablet(s) PO TID as needed anxiety 03/10/2016 04/08/2016 Inactive Xanax 0.25 mg tablet RxNorm: 410392 1 Tablet(s) PO TID as needed anxiety 03/10/2016 04/06/2016 Inactive hydrocodone 7.5 mg-acetaminophen 325 mg tablet RxNorm: 045921 1 or 2 Tablet(s) PO Q4-6H as needed pain 02/26/20162016 Inactive Flonase Allergy Relief 50 mcg/actuation nasal spray, suspension RxNorm: 9486442 1 [place] NASAL each nare daily 01/19/2016 03/18/2016 Inactive cefdinir 300 mg capsule RxNorm: 348946 1 Capsule(s) PO BID 01/23/2016 Inactive take probiotic BID x 7 days Flonase Allergy Relief 50 mcg/actuation nasal spray, suspension RxNorm: 5436915 1 [place] NASAL each nare daily 01/19/2016 01/18/2016 Inactive allopurinol 300 mg tablet RxNorm: 427879 TAKE ONE TABLET BY MOUTH DAILY 01/18/2016 04/16/2016 Inactive Lasix 40 mg tablet RxNorm: 644974 1 Tablet(s) PO daily 201501/07/2017 Inactive (this was only twice daily x1 week) now it's daily cefdinir 300 mg capsule RxNorm: 099500 1 Capsule(s) PO BID 01/17/2016 Inactive take probiotic BID x 7 days cefdinir 300 mg capsule RxNorm: 835471 1 Capsule(s) PO BID 01/10/2016 Inactive buspirone 10 mg tablet RxNorm: 398181 TAKE ONE TABLET BY MOUTH THREE TIMES A DAY 01/11/2016 06/08/2016 Inactive hydrocodone 7.5 mg-acetaminophen 325 mg tablet RxNorm: 769580 1 or 2 Tablet(s) PO Q4-6H as needed pain 12/28/20152015 Inactive potassium chloride ER 10 mEq tablet,extended release(part/ cryst) RxNorm: 4607014 2 po TID x 2 days then 2 po BID Tablet(s) 12/28/2015 03/10/2016 Inactive potassium chloride ER 10 mEq tablet,extended release(part/ cryst) RxNorm: 3855077 TAKE ONE TABLET BY MOUTH TWICE A DAY FOR 1 WEEK THEN RETURN TO DAILY 12/28/2015 12/27/2015 Inactive meclizine 25 mg tablet RxNorm: 919164 1 Tablet(s) PO BID PRN No Stop Date Active potassium chloride ER 10 mEq tablet,extended release(part/ cryst) RxNorm: 7316285 1 Tablet(s) PO TID 12/08/2015 03/10/2016 Inactive potassium chloride ER 10 mEq tablet,extended release(part/ cryst) RxNorm: 4814473 2 Tablet(s) PO daily 11/26/20152015 Inactive cyanocobalamin (vit B-12) 1,000 mcg/mL injection solution RxNorm: 199548 INJECT 1 ML INTRAMUSCULARLY 2 TIMES A MONTH FOR 2 MONTHS, THEN ONCE A MONTH THEREAFTER 11/26/2015 04/23/2016 Inactive potassium chloride ER 10 mEq tablet,extended release(part/ cryst) RxNorm: 3549876 3 Tablet(s) PO daily 11/23/20152015 Inactive Lasix 40 mg tablet RxNorm: 824524 1 Tablet(s) PO daily 201501/13/2016 Inactive (this was only twice daily x1 week) now it's daily metolazone 5 mg tablet RxNorm: 540808 1 Tablet(s) BIW TAKE ONE TABLET BY MOUTH DAILY 11/12/2015 04/18/2016 Inactive hydrocodone 7.5 mg-acetaminophen 325 mg tablet RxNorm: 934490 1 or 2 Tablet(s) PO Q4-6H as needed pain 11/12/20152015 Inactive Lasix 40 mg tablet RxNorm: 925744 1 Tablet(s) PO daily 201511/11/2015 Inactive (this was only twice daily x1 week) now it's daily metolazone 5 mg tablet RxNorm: 355899 Tablet(s) TAKE ONE TABLET BY MOUTH DAILY 10/22/2015 10/29/2015 Inactive potassium chloride ER 10 mEq tablet,extended release(part/ cryst) RxNorm: 7226884 1 Tablet(s) PO daily 10/08/20152015 Inactive twice daily x 1 week then return to daily Lasix 40 mg tablet RxNorm: 988622 1 Tablet(s) PO daily 201511/09/2015 Inactive twice daily x 1 week then daily thereafter Keflex 500 mg capsule RxNorm: 698716 1 Capsule(s) PO TID 201510/02/2015 Inactive Keflex 500 mg capsule RxNorm: 140979 1 Capsule(s) PO TID 201509/22/2015 Inactive hydrocodone 7.5 mg-acetaminophen 325 mg tablet RxNorm: 373522 1 or 2 Tablet(s) PO Q4-6H as needed pain 09/22/20152015 Inactive potassium chloride ER 10 mEq tablet,extended release(part/ cryst) RxNorm: 4276002 1 Tablet(s) PO BID 09/22/2015 10/07/2015 Inactive twice daily x 1 week then return to daily Lasix 40 mg tablet RxNorm: 980716 1 Tablet(s) PO BID 201510/07/2015 Inactive twice daily x 1 week then daily thereafter allopurinol 300 mg tablet RxNorm: 964463 1 Tablet(s) PO daily 09/09/2015 01/06/2016 Inactive diltiazem 90 mg tablet RxNorm: 882781 Tablet(s) TAKE ONE TABLET BY MOUTH THREE TIMES A DAY 09/02/2015 01/28/2016 Inactive diltiazem 90 mg tablet RxNorm: 361624 TAKE ONE TABLET BY MOUTH THREE TIMES A DAY 08/31/2015 01/28/2016 Inactive diltiazem 90 mg tablet RxNorm: 084208 TAKE ONE TABLET BY MOUTH THREE TIMES A DAY 08/31/2015 09/01/2015 Inactive Xanax 0.25 mg tablet RxNorm: 740608 1 Tablet(s) PO TID as needed anxiety 08/28/2015 09/26/2015 Inactive Xanax 0.25 mg tablet RxNorm: 458606 1 Tablet(s) PO TID as needed anxiety 08/28/2015 08/27/2015 Inactive potassium chloride ER 10 mEq tablet,extended release(part/ cryst) RxNorm: 599069 TAKE ONE TABLET BY MOUTH DAILY 08/27/2015 2015 Inactive omeprazole 20 mg capsule,delayed release RxNorm: 901412 TAKE ONE CAPSULE BY MOUTH TWICE A DAY 08/16/2015 02/11/2016 Inactive omeprazole 20 mg capsule,delayed release RxNorm: 484336 TAKE ONE CAPSULE BY MOUTH TWICE A DAY 08/16/2015 08/15/2015 Inactive hydrocodone 7.5 mg-acetaminophen 325 mg tablet RxNorm: 177863 1 or 2 Tablet(s) PO Q4-6H as needed pain 08/11/20152015 Inactive omeprazole 20 mg capsule,delayed release RxNorm: 445527 Capsule(s) TAKE ONE CAPSULE BY MOUTH TWICE A DAY 08/03/2015 Inactive omeprazole 20 mg capsule,delayed release RxNorm: 949768 Capsule(s) TAKE ONE CAPSULE BY MOUTH TWICE A DAY 07/31/2015 Inactive buspirone 10 mg tablet RxNorm: 299545 TAKE ONE TABLET BY MOUTH THREE TIMES A DAY 07/13/2015 01/08/2016 Inactive metolazone 5 mg tablet RxNorm: 648639 TAKE ONE TABLET BY MOUTH DAILY 07/02/2015 07/09/2015 Inactive metolazone 5 mg tablet RxNorm: 256356 1 Tablet(s) PO daily 06/18/2015 Inactive metolazone 5 mg tablet RxNorm: 514876 1 Tablet(s) PO daily 06/14/2015 Inactive hydrocodone 7.5 mg-acetaminophen 325 mg tablet RxNorm: 002629 1or2 1 or 2 Tablet(s ) PO Q4-6H as needed pain 06/12/201507/10 Inactive warfarin 1 mg tablet RxNorm: 925178 1 Tablet(s) 04/15/2015 06/22/2015 Inactive take with 3mg to make 4mg on Mon and repeat in 1 week. hydrocodone 7.5 mg-acetaminophen 325 mg tablet RxNorm: 310627 1or2 or 2 Tablet(s) PO Q4-6H as needed pain 03/31/20152015 Inactive hydrocodone 7.5 mg-acetaminophen 325 mg tablet RxNorm: 292413 1or2 or 2 Tablet(s) PO Q4-6H as needed pain 03/25/20152015 Inactive warfarin 5 mg tablet RxNorm: 173538 1 Tablet(s) PO daily TAKE ONE TABLET BY MOUTH DAILY 03/05/2015 06/22/2015 Inactive Xarelto 20 mg tablet RxNorm: 5244345 1 Tablet(s) PO QPM 201503/04/2015 Inactive losartan 100 mg tablet RxNorm: 297960 1 Tablet(s) PO daily 05/201406/22/2015 Inactive [SAVINGS FOR NON-COVERED DRUGS -- BIN:[id number], PCN: ASPROD1, Group: XXXXX, ID# [id number], Questions: . THIS IS NOT INSURANCE.] Kenalog 40 mg/mL suspension for injection RxNorm: 1731114 1 Milliliter(s) Inj 01/30/2015 01/30/2015 Inactive hydrocodone 7.5 mg-acetaminophen 325 mg tablet RxNorm: 772316 1or2 or 2 Tablet(s) PO Q4-6H as needed pain 01/15/20152014 Inactive Lasix 40 mg tablet RxNorm: 591333 1 Tablet(s) PO daily 201409/21/2015 Inactive as needed for swelling-take potassium when you take lasix potassium chloride ER 10 mEq tablet,extended release(part/ cryst) RxNorm: 230813 2 Tablet(s) PO daily 01/06/2015 01/19/2015 Inactive Lasix 40 mg tablet RxNorm: 765246 1 Tablet(s) PO daily 201401/06/2015 Inactive Ok to fill 20mg, not 40mg as needed for swelling-take potassium when you take lasix potassium chloride ER 10 mEq tablet,extended release(part/ cryst) RxNorm: 783053 1 Tablet(s) PO BID 12/30/2014 01/05/2015 Inactive Vitamin D2 50,000 unit capsule RxNorm: 750886 TAKE 1 CAPSULE BY MOUTH ONCE WEEKLY FOR 12 WEEKS 12/30/2014 03/23/2015 Inactive potassium chloride ER 10 mEq tablet,extended release(part/ cryst) RxNorm: 426810 1 Tablet(s) PO daily 12/26/2014 12/29/2014 Inactive potassium chloride ER 10 mEq tablet,extended release(part/ cryst) RxNorm: 308725 1 Tablet(s) PO daily 12/26/2014 12/25/2014 Inactive omeprazole 20 mg capsule,delayed release RxNorm: 591218 TAKE ONE CAPSULE BY MOUTH TWICE A DAY 12/24/2014 07/21/2015 Inactive Flagyl 500 mg tablet RxNorm: 023919 1 Tablet(s) PO TID 201412/20/2014 Inactive Flagyl 500 mg tablet RxNorm: 347328 1 Tablet(s) PO TID 201412/10/2014 Inactive warfarin 3 mg tablet RxNorm: 296398 TAKE ONE TABLET BY MOUTH DAILY 11/13/2014 01/29/2015 Inactive warfarin 3 mg tablet RxNorm: 382899 TAKE ONE TABLET BY MOUTH DAILY 11/13/2014 01/29/2015 Inactive warfarin 3 mg tablet RxNorm: 049545 TAKE ONE TABLET BY MOUTH DAILY 11/13/2014 03/04/2015 Inactive warfarin 3 mg tablet RxNorm: 054953 1 Tablet(s) PO daily 201403/04/2015 Inactive allopurinol 300 mg tablet RxNorm: 566200 1 Tablet(s) PO daily 11/11/2014 03/10/2015 Inactive hydrocodone 7.5 mg-acetaminophen 325 mg tablet RxNorm: 921361 1or2 or 2 Tablet(s) PO Q4-6H as needed pain 11/10/20142014 Inactive hydrocodone 7.5 mg-acetaminophen 325 mg tablet RxNorm: 668600 1or2 or 2 Tablet(s) PO Q4-6H as needed pain 10/15/20142014 Inactive hydrocodone 7.5 mg-acetaminophen 325 mg tablet RxNorm: 833631 1or2 or 2 Tablet(s) PO Q4-6H as needed pain 10/15/20142014 Inactive Kenalog 40 mg/mL suspension for injection RxNorm: 2828639 Milliliter(s) Inj 10/14/2014 10/14/2014 Inactive ceftriaxone 500 mg solution for injection RxNorm: 1628823 Inj 10/14/2014 10/14/2014 Inactive Zithromax Z-Chito 250 mg tablet RxNorm: 318918 1 Tablet(s) PO UD 10/14/2014 01/29/2015 Inactive zpack cefdinir 300 mg capsule RxNorm: 657482 1 Capsule(s) PO BID 10/20/2014 Inactive Vitamin D2 50,000 unit capsule RxNorm: 381610 1 Capsule(s) PO weekly x 12 weeks 09/24/2014 09/23/2014 Inactive Vitamin D2 50,000 unit capsule RxNorm: 425029 1 Capsule(s) PO weekly x 12 weeks 09/24/2014 12/22/2014 Inactive warfarin 1 mg tablet RxNorm: 954435 TAKE 1/2 TABLET BY MOUTH DAILY WITH 3MG TABLET TO EQUAL 3.5MG DAILY 09/22/201404/2014 Inactive warfarin 1 mg tablet RxNorm: 383959 1/2 Tablet(s) PO daily 3.5mg 08/26/2014 2014 Inactive taking with a 3mg to make 3.5mg tablets Lasix 20 mg tablet RxNorm: 749534 1 Tablet(s) PO QDAY PRN 09/24/2014 Inactive Ok to fill 20mg, not 40mg as needed for swelling-take potassium when you take lasix buspirone 10 mg tablet RxNorm: 452618 1 Tablet(s) PO TID 201411/25/2014 Inactive takes it BID but if she feels anxious she takes one during the day Lasix 20 mg tablet RxNorm: 359337 1 Tablet(s) PO QDAY PRN 08/25/2014 Inactive as needed for swelling-take potassium when you take lasix warfarin 1 mg tablet RxNorm: 427790 1/2 Tablet(s) PO daily 3.5mg 08/15/2014 08/21/2014 Inactive taking with a 3mg to make 3.5mg tablets warfarin 3 mg tablet RxNorm: 346837 1 Tablet(s) PO daily 201410/11/2014 Inactive diltiazem 90 mg tablet RxNorm: 838433 1 Tablet(s) PO TID 201408/30/2015 Inactive warfarin 1 mg tablet RxNorm: 393071 1/2 Tablet(s) PO daily 3.5mg 08/05/2014 08/11/2014 Inactive taking with a 3mg to make 3.5mg tablets cyclobenzaprine 10 mg tablet RxNorm: 036136 1 Tablet(s) PO QHS 08/04/2014 11/01/2014 Inactive buspirone 10 mg tablet RxNorm: 645218 1 Tablet(s) PO QID 201408/21/2014 Inactive allopurinol 300 mg tablet RxNorm: 419430 1 Tablet(s) PO daily 08/04/2014 11/01/2014 Inactive clonazepam 0.5 mg tablet RxNorm: 042100 1 Tablet(s) PO daily 09/02/2014 Inactive omeprazole 20 mg capsule,delayed release RxNorm: 182357 1 Capsule(s) PO BID 08/04/2014 11/01/2014 Inactive atenolol 25 mg tablet RxNorm: 059239 1 Tablet(s) PO daily 201411/01/2014 Inactive warfarin 3 mg tablet RxNorm: 979950 1 Tablet(s) PO daily 201408/04/2014 Inactive diphenhydramine 2 % topical cream RxNorm: 0929105 1 Application TOP Q6 PRN 07/24/2014 01/29/2015 Inactive diltiazem 90 mg tablet RxNorm: 791280 1 Tablet(s) PO BID 201408/04/2014 Inactive cyclobenzaprine 10 mg tablet RxNorm: 329609 1 Tablet(s) PO QH 07/24/2014 08/03/2014 Inactive warfarin 2.5 mg tablet RxNorm: 780316 1 Tablet(s) PO daily 08/22/2014 Inactive [SAVINGS FOR NON-COVERED DRUGS -- BIN:[id number], PCN: ASPROD1, Group: XXXXX, ID# [id number], Questions: . THIS IS NOT INSURANCE.] losartan 25 mg tablet RxNorm: 154204 1 Tablet(s) PO daily 201401/29/2015 Inactive [SAVINGS FOR NON-COVERED DRUGS -- BIN:[id number], PCN: ASPROD1, Group: XXXXX, ID # [id number], Questions: . THIS IS NOT INSURANCE.] isosorbide mononitrate oral RxNorm: 6057 oral No Start Date Active diltiazem ER 360 mg tablet,extended release 24 hr RxNorm: 457743 1 Tablet(s) PO daily No Start Date Active benazepril 10 mg tablet RxNorm: 468032 1 Tablet(s) PO daily No Start Date 07/14/2014 Inactive lisinopril 10 mg tablet RxNorm: 098793 1 Tablet(s) PO daily No Start Date 04/24/2016 Inactive clonazepam 0.5 mg tablet RxNorm: 044987 1 Tablet(s) PO daily No Start Date 08/03/2014 Inactive diltiazem 90 mg tablet RxNorm: 561407 1 Tablet(s) PO daily No Start Date 07/23/2014 Inactive atenolol 25 mg tablet RxNorm: 387182 1 Tablet(s) PO daily No Start Date 08/03/2014 Inactive buspirone 10 mg tablet RxNorm: 486887 1 Tablet(s) PO QID No Start Date 08/03/2014 Inactive omeprazole 20 mg capsule,delayed release RxNorm: 956332 1 Capsule(s) PO BID No Start Date 08/03/2014 Inactive allopurinol 300 mg tablet RxNorm: 529753 1 Tablet(s) PO daily No Start Date 08/03/2014 Inactive Xarelto 20 mg tablet RxNorm: 9830017 1 Tablet(s) PO daily No Start Date 03/03/2015 Inactive warfarin 2 mg tablet RxNorm: 504223 1 Tablet(s) PO daily No Start Date 07/16/2014 Inactive cyanocobalamin (vit B-12) 1,000 mcg/mL injection solution RxNorm: 728873 1 Milliliter(s) Inj monthly No Start Date Inactive cyclobenzaprine 10 mg tablet RxNorm: 822239 1 Tablet(s) PO BID No Start Date 07/23/2014 Inactive Eliquis 2.5 mg tablet RxNorm: 4418471 1 Tablet(s) PO daily No Start Date 03/03/2015 Inactive Medication Administered Medication Codes Instructions Start Date Status Kenalog 40 mg/mL suspension for injection RxNorm: 7459184 1Milliliter 01/30/2015 No longer Active ceftriaxone 500 mg solution for injection RxNorm: 1422421 10/14/2014 No longer Active Kenalog 40 mg/mL suspension for injection RxNorm: 4029441 Milliliter 10/14/2014 No longer Active Immunizations Vaccine Codes Date Status Influenza CVX: 141 12/10/2015 completed Assessments Condition Codes Effective Dates Localized edema ICD-10: R60.0 ICD-9: 782.3 03/07/2017 Essential (primary) hypertension ICD-10: I10 ICD-9: 401.9 03/07/2017 Generalized anxiety disorder ICD-10: F41.1 ICD-9: 300.02 03/07/2017 Paroxysmal atrial fibrillation ICD-10: I48.0 ICD-9: 427.31 03/07/2017 Major depressive disorder, single episode, unspecified [...] 788.1 11/07/2014 MUSCLE WEAKNESS-GENERAL ICD-9: 728.87 03/2014 Cough ICD-9: 786.2 10/29/2014 DYSPHAGIA, PHARYNGEAL ICD-9: 787.23 10/29 EDEMA ICD-9: 782.3 10/29/2014 Anticoagulated on Coumadin ICD-9: V58.83 10/29/2014 Low back pain ICD-9: 724.2 10/29/2014 Pneumonia ICD-9: 486 10/14/2014 DYSPHAGIA, NOS ICD-9: 787.20 10/14/2014 ESOPHAGEAL REFLUX ICD-9: 530.81 2014 SLEEP RELATED LEG CRAMPS ICD-9: 327.52 VITAMIN D DEFICIENCY ICD-9: 268.9 2014 Atrial fibrillation ICD-9: 427.31 2014 ESSENTIAL HYPERTENSION ICD-9: 401.9 09/19 LONG-TERM USE ANTICOAGUL ICD-9: V58.61 Skin irritation ICD-9: 709.9 08/04/2014 DEPRESSIVE DISORDER NEC ICD-9: 311 2014 Reason For Visit Reason For Visit Effective [...] Item Item Code Result Date Comp Metabolic Cxq023 NA 138 mEq/L 09/29/2015 Comp Metabolic Ibj445 K 4.6 mEq/L 09/29/2015 Comp Metabolic Osn905 CL 102 mEq/L 09/29/2015 Comp Metabolic Yrc569 CO2 28.0 mEq/L 09/29/2015 Comp Metabolic Ezx132 ANION GAP 13 09/29/2015 Comp Metabolic Huu173 GLUCOSE 83 mg/dL 09/29/2015 Comp Metabolic Pwe155 Creat 1.1 mg/dL 09/29/2015 Comp Metabolic Ppa380 eGFR 52 ml/min/1.73m2 09/29/2015 Comp Metabolic Tcu621 BUN 18 mg/dL 09/29/2015 Comp Metabolic Mmh383 B/C Ratio 16.7 Ratio 09/29/2015 Comp Metabolic Pko409 CALCIUM 9.6 mg/dL 09/29/2015 Comp Metabolic Pbc188 ALK PHOS 188 U/L 09/29/2015 Comp Metabolic Hqo203 AST(SGOT) 19 U/L 09/29/2015 Comp Metabolic Vmz122 ALT(SGPT) 12 U/L 09/29/2015 Comp Metabolic Wyu338 BILI T 0.6 mg/dL 09/29/2015 Comp Metabolic Ima538 ALBUMIN 4.0 g/dL 09/29/2015 Comp Metabolic Bzi326 TPRO 6.6 g/dL 09/29/2015 Comp Metabolic Fee689 GLOB 2.6 g/dL 09/29/2015 Comp Metabolic Aop959 A/G Ratio 1.5 Ratio 09/29/2015 Comp Metabolic Nww714 Osmo 277 mOsmo 09/29/2015 Cbc With Differential [...] 84.1 fl 09/29/2015 Cbc With Differential Ord2 Routt% 18.3 % 09/29/2015 Cbc With Differential Ord2 MCH 26.1 pg 09/29/2015 Cbc With Differential Ord2 Eos% 1.7 % 09/29/2015 Cbc With Differential Ord2 MCHC 31.0 pg 09/29/2015 Cbc With Differential Ord2 PLT 380 K/ul 09/29/2015 Cbc With Differential Ord2 Baso% 0.6 % 09/29/2015 Cbc With Differential Ord2 Neut ABS# 6.45 K/ul 09/29/2015 Cbc With Differential Ord2 RDW 18.1 % 09/29/2015 Cbc With Differential Ord2 Lymph ABS# 1.41 K/ul 09/29/2015 Cbc With Differential Ord2 Routt ABS# 1.8 K/ul 09/29/2015 Cbc With Differential Ord2 Eos ABS# 0.2 K/ul 09/29/2015 Cbc With Differential Ord2 Baso ABS# 0.1 K/ul 09/29/2015 Comp Metabolic Ism608 NA 134 mEq/L 09/22/2015 Comp Metabolic Mee484 K 4.7 mEq/L 09/22/2015 Comp Metabolic Zsx999 CL 98 mEq/L 09/22/2015 Comp Metabolic Xjc538 CO2 26.0 mEq/L 09/22/2015 Comp Metabolic Wcq220 ANION GAP 15 09/22/2015 Comp Metabolic Gog825 GLUCOSE 83 mg/dL 09/22/2015 Comp Metabolic Iho366 Creat 1.1 mg/dL 09/22/2015 Comp Metabolic Dcr794 eGFR 52 ml/min/1.73m2 09/22/2015 Comp Metabolic Lrg796 BUN 19 mg/dL 09/22/2015 Comp Metabolic Ylt946 B/C Ratio 17.8 Ratio 09/22/2015 Comp Metabolic Wsd683 CALCIUM 9.4 mg/dL 09/22/2015 Comp Metabolic Hje670 ALK PHOS 182 U/L 09/22/2015 Comp Metabolic Ngn738 AST(SGOT) 30 U/L 09/22/2015 Comp Metabolic Ala168 ALT(SGPT) 16 U/L 09/22/2015 Comp Metabolic Zeh573 BILI T 0.8 mg/dL 09/22/2015 Comp Metabolic Clh838 ALBUMIN 3.9 g/dL 09/22/2015 Comp Metabolic Mdm326 TPRO 6.8 g/dL 09/22/2015 Comp Metabolic Ucf547 GLOB 2.9 g/dL 09/22/2015 Comp Metabolic Qcl155 A/G Ratio 1.3 Ratio 09/22/2015 Comp Metabolic Hci281 Osmo 270 mOsmo 09/22/2015 Cbc With Differential Ord2 WBC 10.76 K/ul 09/22/2015 Cbc With Differential Ord2 RBC 3.69 M/ul 09/22/2015 Cbc With Differential Ord2 HGB 9.5 g/dl 09/22/2015 Cbc With Differential Ord2 HCT 30.7 % 09/22/2015 Cbc With Differential Ord2 Neut% 66.6 % 09/22/2015 Cbc With Differential Ord2 Lymph% 16.8 % 09/22/2015 Cbc With Differential Ord2 MCV 83.2 fl 09/22/2015 Cbc With Differential Ord2 MCH 25.7 pg 09/22/2015 Cbc With Differential Ord2 Routt% 15.4 % 09/22/2015 Cbc With Differential Ord2 MCHC 30.9 pg 09/22/2015 Cbc With Differential Ord2 Eos% 0.7 % 09/22/2015 Cbc With Differential Ord2 Baso% 0.5 % 09/22/2015 Cbc With Differential Ord2 PLT 345 K/ul 09/22/2015 Cbc With Differential Ord2 Neut ABS# 7.16 K/ul 09/22/2015 Cbc With Differential Ord2 RDW 18.5 % 09/22/2015 Cbc With Differential Ord2 Lymph ABS# 1.81 K/ul 09/22/2015 Cbc With Differential Ord2 Routt ABS# 1.7 K/ul 09/22/2015 Cbc With Differential [...] 16.5 % 06/02/2015 Cbc With Differential Ord2 MCH 27.8 pg 06/02/2015 Cbc With Differential Ord2 Routt% 16.6 % 06/02/2015 Cbc With Differential Ord2 MCHC 31.7 pg 06/02/2015 Cbc With Differential Ord2 Eos% 0.5 % 06/02/2015 Cbc With Differential Ord2 Baso% 0.3 % 06/02/2015 Cbc With Differential Ord2 PLT 457 K/ul 06/02/2015 Cbc With Differential Ord2 RDW 16.6 % 06/02/2015 Cbc With Differential Ord2 Neut ABS# 6.95 K/ul 06/02/2015 Cbc With Differential Ord2 Lymph ABS# 1.74 K/ul 06/02/2015 Cbc With Differential Ord2 Routt ABS# 1.8 K/ul 06/02/2015 Cbc With Differential Ord2 Eos ABS# 0.1 K/ul 06/02/2015 Cbc With Differential Ord2 Baso ABS# 0.0 K/ul 06/02/2015 Cbc With Differential Ord2 New Analyzer Notice Please note new ref ranges starting 03-11-2015 due to implemntation of new five part differential hematolgy analyzer. 06/02/2015 Comp Metabolic Dct822 NA 132 mEq/L 06/02/2015 Comp Metabolic Wtk663 K 4.4 mEq/L 06/02/2015 Comp Metabolic Ivb802 CL 94 mEq/L 06/02/2015 Comp Metabolic Dlh517 CO2 26.0 mEq/L 06/02/2015 Comp Metabolic Whr041 ANION GAP 16 06/02/2015 Comp Metabolic Nzr301 GLUCOSE 97 mg/dL 06/02/2015 Comp Metabolic Qnj683 Creat 1.2 mg/dL 06/02/2015 Comp Metabolic Rmc655 eGFR 46 ml/min/1.73m2 06/02/2015 Comp Metabolic Zha117 BUN 19 mg/dL 06/02/2015 Comp Metabolic Ann749 B/C Ratio 15.8 Ratio 06/02/2015 Comp Metabolic Nwd050 CALCIUM 9.4 mg/dL 06/02/2015 Comp Metabolic Dax584 ALK PHOS 178 U/L 06/02/2015 Comp Metabolic Bzo964 AST(SGOT) 32 U/L 06/02/2015 Comp Metabolic Rqy146 ALT(SGPT) 31 U/L 06/02/2015 Comp Metabolic Kwq375 BILI T 0.6 mg/dL 06/02/2015 Comp Metabolic Exp056 ALBUMIN 4.0 g/dL 06/02/2015 Comp Metabolic Nlw636 TPRO 6.5 g/dL 06/02/2015 Comp Metabolic Avd734 GLOB 2.5 g/dL 06/02/2015 Comp Metabolic Kiz328 A/G Ratio 1.6 Ratio 06/02/2015 Comp Metabolic Rkl208 Osmo 267 mOsmo 06/02/2015 Pt Yqr8545 PT 21.8 seconds 06/02/2015 Pt Vog1967 INR 2.0 06/02/2015 Pt Ueh9816 Low Intensity - 1.5-2.0 06/02/2015 Pt Vov4978 Mod intensity - 2.0-3.0 06/02/2015 Pt Cyh8358 Hi intensity - 3.0-4.0 06/02/2015 Vitamin D 25 Oh Gey6485 VITAMIN D, 25 HYDROXY 61.20 ng/mL Iron Ord72 Iron 39 ug/dl 04/01/2015 B12 Hft230 B12 160.00 pg/ml 04/01/2015 Tsh Ord6 hTSH II 1.87 uIU/mL 03/31/2015 Pt Yxp2782 PT 36.9 seconds 03/31/2015 Pt Ouy5489 INR 3.9 03/31/2015 Pt Glf2820 Low Intensity - 1.5-2.0 03/31/2015 Pt Waa0276 Mod intensity - 2.0-3.0 03/31/2015 Pt Aiy9196 Hi intensity - 3.0-4.0 03/31/2015 Comp Metabolic Jsp606 NA 131 mEq/L 03/31/2015 Comp Metabolic Ovk237 K 5.3 mEq/L 03/31/2015 Comp Metabolic Wzv105 CL 97 mEq/L 03/31/2015 Comp Metabolic Cgm388 CO2 24.0 mEq/L 03/31/2015 Comp Metabolic Akj736 ANION GAP 15 03/31/2015 Comp Metabolic Xbj234 GLUCOSE 84 mg/dL 03/31/2015 Comp Metabolic Olz693 Creat 1.3 mg/dL 03/31/2015 Comp Metabolic Lqd781 eGFR 42 ml/min/1.73m2 03/31/2015 Comp Metabolic Rzg719 BUN 26 mg/dL 03/31/2015 Comp Metabolic Slv744 B/C Ratio 20.2 Ratio 03/31/2015 Comp Metabolic Gvt479 CALCIUM 9.4 mg/dL 03/31/2015 Comp Metabolic Zaz486 ALK PHOS 172 U/L 03/31/2015 Comp Metabolic Tjc758 AST(SGOT) 21 U/L 03/31/2015 Comp Metabolic Oog765 ALT(SGPT) 27 U/L 03/31/2015 Comp Metabolic Oos765 BILI T 0.5 mg/dL 03/31/2015 Comp Metabolic Bwq738 ALBUMIN 4.0 g/dL 03/31/2015 Comp Metabolic Ikx315 TPRO 6.8 g/dL 03/31/2015 Comp Metabolic Dpi682 GLOB 2.8 g/dL 03/31/2015 Comp Metabolic Yoj797 A/G Ratio 1.4 Ratio 03/31/2015 Comp Metabolic Get643 Osmo 267 mOsmo 03/31/2015 Cbc With Differential Ord2 WBC 11.58 K/ul 03/31/2015 Cbc With Differential Ord2 RBC 3.71 M/ul 03/31/2015 Cbc With Differential Ord2 HGB 10.5 g/dl 03/31/2015 Cbc With Differential Ord2 Neut% 71.2 % 03/31/2015 Cbc With Differential Ord2 HCT 33.0 % 03/31/2015 Cbc With Differential Ord2 MCV 88.9 fl 03/31/2015 Cbc With Differential Ord2 Lymph% 14.0 % 03/31/2015 Cbc With Differential Ord2 Routt% 14.0 % 03/31/2015 Cbc With Differential Ord2 MCH 28.3 pg 03/31/2015 Cbc With Differential Ord2 Eos% 0.5 % 03/31/2015 Cbc With Differential Ord2 MCHC 31.8 pg 03/31/2015 Cbc With Differential Ord2 PLT 414 K/ul 03/31/2015 Cbc With Differential Ord2 Baso% 0.3 % 03/31/2015 Cbc With Differential Ord2 Neut ABS# 8.25 K/ul 03/31/2015 Cbc With Differential Ord2 RDW 17.4 % 03/31/2015 Cbc With Differential Ord2 Lymph ABS# 1.62 K/ul 03/31/2015 Cbc With Differential Ord2 Routt ABS# 1.6 K/ul 03/31/2015 Cbc With Differential [...] Magnesium Ord90 Mag 2.0 mg/dL 09/19/2014 Pt Bwu7867 PT 29.1 seconds 09/19/2014 Pt Mql5099 INR 2.9 09/19/2014 Pt Zlu2006 Low Intensity - 1.5-2.0 09/19/2014 Pt Imv6313 Mod intensity - 2.0-3.0 09/19/2014 Pt Etn4027 Hi intensity - 3.0-4.0 09/19/2014 Tsh Ord6 hTSH II 1.40 uIU/mL 09/19/2014 Lipid Ord30 CHOL 216 mg/dL 09/19/2014 Lipid Ord30 HDL 78.0 mg/dl 09/19/2014 Lipid Ord30 TRIG 85 mg/dL 09/19/2014 Lipid Ord30 LDL 121 mg/dL 09/19/2014 Lipid Ord30 C/HDL 2.8 Ratio 09/19/2014 Vitamin D 25 Oh Adr6683 VITAMIN D, 25 HYDROXY 14.13 ng/mL Comp Metabolic Mhb562 NA 134 mEq/L 09/19/2014 Comp Metabolic Giu216 K 4.7 mEq/L 09/19/2014 Comp Metabolic Bcd817 CL 98 mEq/L 09/19/2014 Comp Metabolic Ved480 CO2 27.0 mEq/L 09/19/2014 Comp Metabolic Sih205 ANION GAP 14 09/19/2014 Comp Metabolic Qpf152 GLUCOSE 94 mg/dL 09/19/2014 Comp Metabolic Ucu633 Creat 1.1 mg/dL 09/19/2014 Comp Metabolic Wmq229 eGFR 49 ml/min/1.73m2 09/19/2014 Comp Metabolic Vqx412 BUN 14 mg/dL 09/19/2014 Comp Metabolic Vxd944 B/C Ratio 12.3 Ratio 09/19/2014 Comp Metabolic Iap095 CALCIUM 9.7 mg/dL 09/19/2014 Comp Metabolic Zub438 ALK PHOS 150 U/L 09/19/2014 Comp Metabolic Oct786 AST(SGOT) 16 U/L 09/19/2014 Comp Metabolic Cia011 ALT(SGPT) 9 U/L 09/19/2014 Comp Metabolic Hfe367 BILI T 0.8 mg/dL 09/19/2014 Comp Metabolic Ttg177 ALBUMIN 3.9 g/dL 09/19/2014 Comp Metabolic Lgm798 TPRO 6.8 g/dL 09/19/2014 Comp Metabolic Dyv871 GLOB 2.9 g/dL 09/19/2014 Comp Metabolic Djd721 A/G Ratio 1.3 Ratio 09/19/2014 Comp Metabolic Aio938 Osmo 268 mOsmo 09/19/2014 Cbc With Differential [...] Model/CDA Sections, Assigned to/Indira Ibanez SNKIESHA CT: [id number] CPT-4: 40152Zbjkseo 12/10/2015 TRIAMCINOLONE ACET INJ NOS CPT-4: J3301 01/30/2015 URINALYSIS NONAUTO W/O SCOPE CPT-4: 35213 11/07/2014 ROCEPHIN, PER 250 MG CPT-4: J0696 10/14/2014 TRIAMCINOLONE ACET INJ NOS CPT-4: J3301 10/14/2014 Vital Signs Date Vital 03/07/2017 Blood Pressure 1: 108/52 Code : 8480-6 BMI: 27.6 Code : 42841-3 Heart Rate 1 : 72 bpm Height: 5'2" SpO2: 96% Weight: 151 lbs 01/24/2017 Blood Pressure 1: 126/60 Code : 8480-6 BMI: 27.1 Code : 51175-4 Heart Rate 1 : 60 bpm Height: [...] Code : 8480-6 BMI: 26.8 Code : 46720-4 Heart Rate 1 : 59 bpm Height: 5'2" SpO2: 97% Weight: 146 lbs 8 oz 05/10/2016 Blood Pressure 1: 120/56 Code : 8480-6 BMI: 27.1 Code : 22186-1 Heart Rate 1 : 63 bpm Height: 5'2" SpO2: 97% Weight: 148 lbs 04/25/2016 Blood Pressure 1: 134/66 Code : 8480-6 BMI: 24.9 Code : 02466-3 Heart Rate 1 : 118 bpm Height: 5'2" SpO2: 93% Temperature: 36.8 (C) / 98.3 (F) Weight: 136 lbs 01/14/2016 Blood Pressure 1: 132/78 Code : 8480-6 BMI: 25.6 Code : 56424-7 Heart Rate 1 : 97 bpm Height: 5'2" SpO2: 95% Weight: 140 lbs 12/10/2015 Blood Pressure 1: 118/72 Code : 8480-6 BMI: 26.2 Code : 04632-3 Heart Rate 1 : 68 bpm Height: 5'2" SpO2: 95% Weight: 143 lbs 11/12/2015 Blood Pressure 1: 140/80 Code : 8480-6 BMI: 25.6 Code : 75771-9 Heart Rate 1 : 77 bpm Height: 5'2" SpO2: 93% Weight: 140 lbs 10/08/2015 Blood Pressure 1: 132/60 Code : 8480-6 BMI: 26.2 Code : 87120-2 Heart Rate 1 : 77 bpm Height: 5'2" SpO2: 96% Weight: 143 lbs 09/29/2015 Blood Pressure 1: 130/62 Code : 8480-6 BMI: 27.1 Code : 04473-8 Heart Rate 1 : 86 bpm Height: 5'2" SpO2: 93% Weight: 148 lbs 09/22/2015 Blood Pressure 1: 164/72 Code : 8480-6 BMI: 28.2 Code : 47625-1 Heart Rate 1 : 79 bpm Height: 5'2" SpO2: 92% Weight: 154 lbs 07/21/2015 Blood Pressure 1: 124/70 Code : 8480-6 BMI: 24.5 Code : 93015-2 Heart Rate 1 : 71 bpm Height: 5'2" SpO2: 98% Weight: 134 lbs 06/23/2015 Blood Pressure 1: 122/68 Code : 8480-6 BMI: 25.4 Code : 48795-2 Heart Rate 1 : 78 bpm Height: 5'2" SpO2: 92% Weight: 139 lbs 06/12/2015 Blood Pressure 1: 154/62 Code : 8480-6 BMI: 27.4 Code : 16190-9 Heart Rate 1 : 87 bpm Height: 5'2" SpO2: 94% Weight: 150 lbs 06/02/2015 Blood Pressure 1: 140/68 Code : 8480-6 Heart Rate 1: 90 bpm SpO2: 91% Weight: 142 lbs 03/31/2015 Blood Pressure 1: 120/56 Code : 8480-6 BMI: 23.6 Code : 37547-8 Heart Rate 1 : 82 bpm Height: 5'2" SpO2: 98% Weight: 129 lbs 01/30/2015 Blood Pressure 1: 108/62 Code : 8480-6 BMI: 22.1 Code : 37164-1 Heart Rate 1 : 8299 bpm Height: 5'2 " SpO2: 99% Weight: 121 lbs 12/22/2014 Blood Pressure 1: 130/70 Code : 8480-6 BMI: 21.8 Code : 63836-1 Heart Rate 1 : 106 bpm Height: 5'2" SpO2: 98% Weight: 119 lbs 10/29/2014 Blood Pressure 1: 118/58 Code : 8480-6 BMI: 23.2 Code : 70620-4 Heart Rate 1 : 74 bpm Height: 5'2" SpO2: 93% Weight: 127 lbs 10/14/2014 Blood Pressure 1: 128/64 Code : 8480-6 BMI: 22.9 Code : 42400-7 Heart Rate 1 : 79 bpm Height: 5'2" SpO2: 93% Temperature: 35.9 (C) / 96.6 (F) Weight: 125 lbs 09/19/2014 Blood Pressure 1: 132/72 Code : 8480-6 BMI: 22.9 Code : 97726-8 Heart Rate 1 : 84 bpm Height: 5'2" SpO2: 96% Weight: 125 lbs 08/22/2014 Blood Pressure 1: 124/72 Code : 8480-6 BMI: 23.0 Code : 66283-1 Heart Rate 1 : 64 bpm Height: 5'2" Weight: 126 lbs 08/04/2014 Blood Pressure 1: 126/86 Code : 8480-6 BMI: 23.6 Code : 75660-7 Height: 5'2" Respiratory Rate: 20 bpm Weight: 129 lbs 07/24/2014 Blood Pressure 1: 116/72 Code : 8480-6 BMI: 23.6 Code : 53975-2 Heart Rate 1 : 74 bpm Height: 5'2" Weight: 129 lbs 07/15/2014 Blood Pressure 1: 132/78 Code : 8480-6 BMI: 24.1 Code : 06660-0 Heart Rate 1 : 74 bpm Height: [...] data Encounters Encounter Performer Location Codes Date EST. PATIENT, LEVEL IV Diagnosis: Essential (primary) hypertension[ICD10: I10] Diagnosis: Paroxysmal atrial fibrillation[ICD10: I48.0] Diagnosis: Generalized anxiety disorder[ICD10: F41.1] Diagnosis: Localized edema[ICD10: R60.0] [facility] CPT- 4: 88662 03/07/2017 ([id number]) 68183 EST. PATIENT, LEVEL IV Diagnosis: Generalized anxiety disorder[ICD10: F41.1] Diagnosis: Major depressive disorder, single episode, unspecified[ICD10: F32.9] Diagnosis: Essential (primary) hypertension[ICD10: I10] Diagnosis: Paroxysmal atrial fibrillation[ICD10: I48.0] [facility] CPT-4: 57622 01/24/2017 [id number] EST. PATIENT, LEVEL IV Diagnosis: Other chest pain[ICD10: R07.89] Diagnosis: Other malaise[ICD10: R53.81] [facility] CPT-4 : 42214 09/29/2016 ([id number]) 14446 EST. PATIENT, LEVEL IV Diagnosis: Essential (primary) hypertension[ICD10: I10] Diagnosis: Paroxysmal atrial fibrillation[ICD10: I48.0] Diagnosis: Localized edema[ICD10: R60.0] Diagnosis: Generalized anxiety disorder[ICD10: F41.1] Diagnosis: Low back pain[ICD10: M54.5] Merle Daigle MD, [facility] CPT-4: 46049 09/13/2016 ([id number]) 83234 EST. PATIENT, LEVEL III Diagnosis: Essential (primary) hypertension[ICD10: I10] Diagnosis: Paroxysmal atrial fibrillation[ICD10: I48.0] Merle Daigle MD, [facility] CPT-4: 35378 05/31/2016 ([id number]) 06596 EST. PATIENT, LEVEL III Diagnosis: Essential (primary) hypertension[ICD10: I10] Diagnosis: Localized edema[ICD10: R60.0] Merle Daigle MD, [facility] CPT-4: 80015 05/10/2016 ([id number]) 36847 EST. PATIENT, LEVEL IV Diagnosis: Paroxysmal atrial fibrillation[ICD10: I48.0] Diagnosis: Essential (primary) hypertension[ICD10: I10] Diagnosis: Generalized anxiety disorder[ICD10: F41.1] Merle Daigle MD, [facility] CPT-4: 75178 04/25/2016 ([id number]) 73694 EST. PATIENT, LEVEL IV Diagnosis: Generalized anxiety disorder[ICD10: F41.1] Diagnosis: Essential (primary) hypertension[ICD10: I10] Diagnosis: Paroxysmal atrial fibrillation[ICD10: I48.0] Diagnosis: Localized edema[ICD10: R60.0] Diagnosis: Acute recurrent maxillary sinusitis[ICD10: J01.01] [facility] CPT-4: 55464 01/14/2016 ([id number]) 19448 EST. PATIENT, LEVEL IV Diagnosis: Essential (primary) hypertension[ICD10: I10] Diagnosis: Generalized anxiety disorder[ICD10: F41.1] Diagnosis: Localized edema[ICD10: R60.0] Diagnosis: Encounter for immunization[ICD10: Z23] [facility] CPT-4: 80818 12/10/2015 ([id number]) 73881 EST. PATIENT, LEVEL III Diagnosis: Essential (primary) hypertension[ICD10: I10] Diagnosis: Localized edema[ICD10: R60.0] Merle Daigle MD, [facility] CPT-4: 15291 11/12/2015 ([id number]) 85912 EST. PATIENT, LEVEL III Diagnosis: Essential (primary) hypertension[ICD10: I10] Diagnosis: Localized edema[ICD10: R60.0] Merle Daigle MD, [facility] CPT-4: 96444 10/08/2015 ([id number]) 51342 EST. PATIENT, LEVEL III Diagnosis: Localized edema[ICD10: R60.0] Diagnosis: Essential (primary) hypertension[ICD10: I10] Merle Daigle MD, [facility] CPT-4: 58139 09/29/2015 ([id number]) 85412 EST. PATIENT, LEVEL IV Diagnosis: Localized edema[ICD10: R60.0] Diagnosis: Essential (primary) hypertension[ICD10: I10] Diagnosis: Paroxysmal atrial fibrillation[ICD10: I48.0] Merle Daigle MD, [facility] CPT-4: 03293 09/22/2015 ([id number]) 59608 EST. PATIENT, LEVEL III Diagnosis: Essential (primary) hypertension[ICD10: I10] Diagnosis: Paroxysmal atrial fibrillation[ICD10: I48.0] Merle Daigle MD, [facility] CPT-4: 53342 07/21/2015 ([id number]) 09185 EST. 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 PATIENT, LEVEL IV Diagnosis: Essential (primary) hypertension[ICD10: I10] Diagnosis: Paroxysmal atrial fibrillation[ICD10: I48.0] Diagnosis: Localized edema[ICD10: R60.0] Diagnosis: Encounter for therapeutic drug level monitoring[ICD10: Z51.81] Merle Daigle MD, [facility] CPT-4: 53479 06/02/2015 ([id number]) 03759 EST. PATIENT, LEVEL IV Diagnosis: Essential (primary) hypertension[ICD10: I10] Diagnosis: Vitamin D deficiency, unspecified[ICD10: E55.9] Diagnosis: Major depressive disorder, single episode, unspecified[ICD10: F32.9] Diagnosis: Paroxysmal atrial fibrillation[ICD10: I48.0] Diagnosis: FDC (current) use of anticoagulants[ICD10: Z79.01] Merle Daigle MD , [facility] CPT-4: 24135 03/31/2015 ([id number]) 12524 EST. PATIENT, LEVEL III Diagnosis: Essential (primary) hypertension[ICD10: I10] Diagnosis: Allergic rhinitis due to pollen[ICD10: J30.1] Merle Daigle MD, [facility] CPT-4: 30240 01/30/2015 35787 EST. PATIENT, LEVEL III Diagnosis: Localized edema[ICD10: R60.0] Diagnosis: Diarrhea, unspecified[ICD10: R19.7] Veronica Daigle MD, [facility] CPT-4: 64699 12/22/2014 ([id number]) 21429 EST. PATIENT, LEVEL IV Diagnosis: DYSPHAGIA, PHARYNGEAL[ICD9: 787.23] Diagnosis: Low back pain[ICD9: 724.2] Diagnosis: Cough[ICD9: 786.2] Diagnosis: Anticoagulated on Coumadin[ICD9: V58.83] Diagnosis: MUSCLE WEAKNESS-GENERAL[ICD9: 728.87] Diagnosis: EDEMA[ICD9: 782.3] Veronica Daigle MD, [facility] CPT-4: 67075 10/29/2014 ([id number]) 47793 EST. PATIENT, LEVEL IV Diagnosis: Low back pain[ICD9: 724.2] Diagnosis: Pneumonia[ICD9: 486] Diagnosis: Cough[ICD9: 786.2] Diagnosis: Anticoagulated on Coumadin[ICD9: V58.83] Diagnosis: DYSPHAGIA, NOS[ICD9: 787.20] Diagnosis: MUSCLE WEAKNESS-GENERAL[ICD9: 728.87] Merle Daigle MD, [facility] CPT-4: 62547 10/14/2014 ([id number]) 29213 EST. PATIENT, LEVEL IV Diagnosis: ESSENTIAL HYPERTENSION[ICD9: 401.9] Diagnosis: ESOPHAGEAL REFLUX[ICD9: 530.81] Diagnosis: SLEEP RELATED LEG CRAMPS[ICD9: 327.52] Diagnosis: Atrial fibrillation[ICD9: 427.31] Diagnosis: Anticoagulated on Coumadin[ICD9: V58.83] Diagnosis: VITAMIN D DEFICIENCY[ICD9: 268.9] Merle Daigle MD, [facility] CPT-4: 36070 09/19/2014 ([id number]) 07199 EST. PATIENT, LEVEL III Diagnosis: EDEMA[ICD9: 782.3] Diagnosis: LONG-TERM USE ANTICOAGUL[ICD9: V58.61] [facility] CPT-4: 28045 08/22/2014 ([id number]) 49812 EST. PATIENT, LEVEL IV Diagnosis: Skin irritation[ICD9: 709.9] Diagnosis: ESSENTIAL HYPERTENSION[ICD9: 401.9] Diagnosis: Anticoagulated on Coumadin[ICD9: V58.83] Diagnosis: DEPRESSIVE DISORDER NEC[ICD9: 311] [facility] CPT-4: 46415 08/04/2014 ([id number]) 32346 EST. PATIENT, LEVEL III Diagnosis: Skin irritation[ICD9: 709.9] [facility] CPT- 4: 38502 07/24/2014 ([id number]) OFFICE/OUTPATIENT VISIT NEW Diagnosis: ESSENTIAL HYPERTENSION[ICD9: 401.9] Diagnosis: COUGH[ICD9: 786.2] Diagnosis: Atrial fibrillation[ICD9: 427.31] Diagnosis: LONG-TERM USE ANTICOAGUL[ICD9: V58.61] Diagnosis: DEPRESSIVE DISORDER NEC[ICD9: 311] [facility] CPT-4: 27480 07/15/2014 Plan of Care Planned Activity Notes [...] current medications. 03/07/2017 Appointment: Veronica Daigle WPtel: [facility] [place]5 [facility] (15 min) Moderate 03/07/2017 Patient Education: Patient [...] becoming uncontrolled. 01/24/2017 Appointment: Merle Esparza WPtel: [facility] [place]6 [id number] (30 min) Complex 01/24/2017 Patient Education: Patient [...] or concerns. 09/29/2016 Appointment: Opal Boyle WPtel: [address] [place], [place] [phone] (15 min) Moderate 09/29/2016 Appointment: Opal Boyle WPtel: [address] [place], [place] [phone] (15 min) Moderate 09/29/2016 Patient Education: Patient [...] current medications. 09/13/2016 Appointment: Merle Esparza WPtel: [facility] [id number] [place] (30 min) Complex 09/13/2016 Patient Education: [...] becoming uncontrolled. 05/31/2016 Appointment: Merle Esparza WPtel: [phone] [id number] (30 min) Complex 05/31/2016 Patient Education: Patient [...] LABS TODAY 05/10/2016 Appointment: Merle Esparza WPtel: [phone] [id number] (30 min) Complex 05/10/2016 Patient Education: Patient Medication Summary Completed 05/10/2016 Patient Education: Hypertension Completed 05/10/2016 Appointment: Merle Esparza WPtel: [facility] [id number] (15 min) Moderate 05/09/2016 Visit Plan: Afib-not [...] current medications. 04/25/2016 Appointment: Merle Esparza WPtel: [phone] [id number] (30 min) Complex 04/25/2016 Patient Education: Patient Medication Summary Completed 04/25/2016 Patient Education: Hypertension Completed 04/25/2016 Appointment: Merle Esparza WPtel: [facility] [id number] (15 min) Moderate 02/12/2016 Visit Plan: Hypertension [...] becoming uncontrolled. 01/14/2016 Appointment: Merle Esparza WPtel: [facility] [id number] [place] [address] (30 min) Complex 01/14/2016 Patient Education: Patient [...] peripheral edema. 12/10/2015 Appointment: Merle Esparza WPtel: [facility] [id number] (30 min) Complex 12/10/2015 Patient Education: Patient [...] peripheral edema. 11/12/2015 Appointment: Merle Esparza WPtel: [phone] [id number] (15 min) Moderate 11/12/2015 Patient Education: Patient Medication Summary Completed 11/12/2015 Appointment: Merle Esparza WPtel: [facility] [id number] (15 min) Moderate 10/22/2015 Visit Plan: Hypertension [...] peripheral edema. 10/08/2015 Appointment: Merle Esparza WPtel: [facility] [place] [place] (15 min) Moderate 10/08/2015 Patient Education: [...] at home. 09/29/2015 Appointment: [phone] (15 min) Moderate 09/29/2015 Patient Education: Patient [...] peripheral edema. 09/22/2015 Appointment: Merle Esparza WPtel: [facility] [phone] (30 min) Complex 09/22/2015 Patient Education: Patient [...] week- will restart anti coagulant if able Mjgmb-obbkxelz-ua change in medications Anemia-received 1 unit blood last week-hgb repeated yesterday and has increased from 9.5 to 9.8-continue to monitor 06/23/2015 Appointment: Isaias Merle WPtel: [facility] [place] [phone] (30 min) Complex 06/23/2015 Patient Education: Patient [...] Hypertension Completed 01/30/2015 Appointment: Veronica Daigle WPtel: [facility] [place] [facility] (30 min) Complex 01/28/2015 Appointment: (30 min) [...] at home. 12/22/2014 Appointment: [phone] (30 min) Complex 12/22/2014 Patient Education: Patient [...] Care Plan: COMPLETE CBC AUTOMATED LOINC : 62546-7 Ordered 08/22/2014 Visit Plan: Itching/Skin irritation- Resolved. [...] or sooner if needed. 07/24/2014 Appointment: Yumiko Dickinson WPtel: [address] [place], [place] [address] (10 min) Simple 07/24/2014 Patient Education: Patient [...] - she has refused to see a marketing content coordinator and reports to me that she will not go to the hospital and will not have the recommended testing. She states that she does not have any family left, and is not willing to have any further testing/treatment. Labs to be checked today for coumadin levels to be further adjusted. 07/15/2014 Appointment: [facility]el[phone] [facility] [place] ([place] New Patient 07/15/2014 Patient Education: [...] for INR is between 2.0 and 3.5. DECREASE METOPROLOL TO 25MG 1/2 TAB DAILY [...] to reduce peripheral edema. CHECK LABS TODAY STOP THE BENZAPRIL START LOSARTAN THE BENZAPRIL [...] - she has refused to see a marketing content coordinator and reports to me that she will not go to the hospital and will not have the recommended testing. She states that she does not have any family left, and is not willing to have any further testing/ treatment. Labs to be checked today for coumadin levels to be further adjusted. INCREASE PROTEIN INTAKE . Hypertension - well [...] situational exposure. No change in current medications. TAKE AN EXTRA LASIX AND POASSIUM PILL [...] for INR is between 2.0 and 3.5. CHEST XRAY, LUMBAR SPINE Antibiotics sent to [facility] Take a probiotic while on the antibiotics REFER TO HOME MCPNNJ-Fsiskie-xxpns PT/INR on , PT SWALLOW STUDY DX dysphagia Shun (neighbor) [phone] . Pneumonia - Pt has been diagnosed [...] while on the antibiotics REFER TO HOME [id number] PT/INR on , PT SWALLOW STUDY DX dysphagia Shun (neighbor) [phone] . Pneumonia - Pt has been diagnosed [...] and 3.5. Check PT/INR due to antibiotics. START METOLAZONE 5MG TWICE PER WEEK-TUESDAYS AND [...] further attempt to reduce peripheral edema. . Itching- Benadryl cream to right arm itching areas as needed. RX sent to pt's pharmacy. Warfarin Therapy- PT 16.0, INR 1.3 Increase Warfarin to 3 mg PO Daily. Repeat PT/INR in 1 week. Pt verbalizes understanding of this plan. Return for office appointment in 10 days or sooner if needed. Wear compression socks or sujata wraps daily [...] INR is between 2.0 and 3.5. . Chronic Depression and anxiety - the [...] a study on a Monday if possible. INCREASE YOUR OMEPRAZOLE TO TWICE DAILY . [...] labs-cbc, mag Vitamin D deficiency-check vitamin D take an extra lasix and potassium at [...] edema. Chronic pain-refill hydrocodone for prn use . Hypertension - well controlled - continue with current medications, continue with no added salt diet. Pt has been encouraged to exercise daily. The pt has been advised to call the office if there are any acute concerns about change in blood pressure readings at home. Afib-rate controlled-currently off coumadin due to GI bleed-appt for colonscopy next week-will restart anti coagulant if able Dajux-vguyuifc-fu change in medications Anemia-received 1 unit blood last week-hgb repeated yesterday and has increased from 9.5 to 9.8-continue to monitor START METOPROLOL 12.5MG TWICE DAILY (YOU WILL [...] situational exposure. No change in current medications. KENALOG INJECTION TODAY IN THE OFFICE CALL [...] spray. Kenalog injection today in the office CONTINUE LASIX TWICE DAILY X 7 DAYS [...] or with any questions, changes or concerns. LEXAPRO 5MG DAILY IN THE EVENING CHECK [...] to further attempt to reduce peripheral edema. Refill prescription of Lasix 40 mg daily. [...] to further attempt to reduce peripheral edema. Eylyzefzf-yynqkctyz-jetrqh all of abx Atrial Fibrillation - pt on chronic anticoagulation and is currently rate controlled. The pt is to have labs done as appropriate to monitor medication levels and is to report if they start to feel as if their heart rate is becoming uncontrolled. . Hypertension - well controlled - continue [...] if their heart rate is becoming uncontrolled. . Hypertension - well controlled - continue [...]
--- OUTSIDE RECORDS SUMMARY | 2017-04-05 11:24 | XMS REPORT | Continuity of Care Document ---
Author Author [facility] Organization [facility] Address Unknown Phone Unavailable Allergies Active Description Code Type Severity Reaction Onset Reported/Identified Relationship to Patient Clinical Status Yes Sulfa (Sulfonamide Antibiotics) [id number] Drug Allergy Unknown N/A 2014 Medications There is no data. 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 DIASTOLIC HRT FAILURE 05/23/2011 Ot 443.9 PERIPH VASCULAR DIS NOS 05/23/2011 Ot 482.41 METHICILLIN SUSCEPTIBLE PNEUMONIA D/T ST 05/23/2011 Ot 496 CHR AIRWAY OBSTRUCT NEC 05/23/2011 Ot 715.90 OSTEOARTHROS NOS-UNSPEC 08/23/2011 Ot 427.31 ATRIAL FIBRILLATION 09/24/2011 Ot 459.30 CHRONIC VENOUS HYPERTEN W/O COMPLICATION 09/24/2011 Ot 729.81 SWELLING OF LIMB 11/23/2011 Ot 427.31 ATRIAL FIBRILLATION 03/04/2012 Ot 427.31 ATRIAL FIBRILLATION 06/06/2012 Ot 427.31 ATRIAL FIBRILLATION 09/05/2012 TIANA BORJAS, NATY Lay Ot 427.31 ATRIAL FIBRILLATION 10/27/2012 EDITH AUGUSTINE CORN SHUCKER Ot 813.42 FX DISTAL RADIUS NEC-CL 10/27/2012 EDITH AUGUSTINE [employer]N SHUCKER Ot 959.4 HAND INJURY NOS 10/27/2012 EDITH AUGUSTINE CORN SHUCKER Ot E000.8 OTHER EXTERNAL CAUSE STATUS 10/27/2012 EDITH AUGUSTINE CORN SHUCKER Ot E029.9 OTHER ACTIVITY 10/27/2012 EDITH AUGUSTINE CORN SHUCKER Ot E885.9 FALL FROM SLIPPING, TRIPPING, OR STUMBLI 12/09/2012 TIANA BORJAS, NATY Lay Ot 427.31 ATRIAL FIBRILLATION 03/27/2013 NATY MONTIEL MD Ot 427.31 ATRIAL FIBRILLATION 06/27/2013 NATY MONTIEL MD Ot 427.31 ATRIAL FIBRILLATION 09/26/2013 NATY MONTIEL MD Ot 427.31 ATRIAL FIBRILLATION 12/29/2013 NATY MONTIEL MD Ot 427.31 ATRIAL FIBRILLATION 03/25/2014 Ot 486 03/25/2014 Ot 733.00 03/25/2014 Ot V76.12 03/25/2014 Ot V76.12 03/25/2014 Ot 719.46 03/25/2014 Ot 786.2 03/25/2014 Ot V15.51 03/25/2014 Ot 786.2 03/25/2014 Ot 486 03/25/2014 Ot 786.05 03/25/2014 Ot 401.1 03/25/2014 Ot 428.0 03/25/2014 Ot 427.31 03/25/2014 Ot 782.3 03/25/2014 Ot 719.40 03/25/2014 Ot 782.3 03/25/2014 Ot 401.1 03/25/2014 Ot 427.31 03/25/2014 Ot V58.69 03/25/2014 TIANA BORJAS, NATY Lay Ot 244.8 03/25/2014 NATY MONTIEL MD Ot 272.4 03/25/2014 TIANA BORJAS, NATY Lay Ot 401.1 03/25/2014 NATY MONTIEL MD Ot 451.11 03/25/2014 TIANA BORJAS, NATY M Ot 401.1 03/25/2014 NATY MONTIEL MD M Ot 428.0 03/25/2014 NATY MONTIEL MD Ot 429.3 03/25/2014 NATY MONTIEL MD Ot 721.2 03/25/2014 NATY MONTIEL MD Ot 786.05 03/25/2014 NATY MONTIEL MD Ot 786.2 03/25/2014 NATY MONTIEL MD Ot 244.8 03/25/2014 TIANA BORJAS, NATY M Ot 272.4 03/25/2014 TIANA BORJAS, NATY M Ot 401.1 03/25/2014 TIANA BORJAS, NATY M Ot 427.31 03/30/2014 TIANA BORJAS, NATY M Ot 427.31 ATRIAL FIBRILLATION 03/31/2014 TIANA BORJAS, NATY M Ot 427.31 03/31/2014 TIANA BORJAS, NATY M Ot 427.31 03/31/2014 TIANA BORJAS, NATY M Ot 427.31 04/01/2014 TIANA BORJAS, NATY M Ot 427.31 04/02/2014 TIANA BORJAS, NATY M Ot 427.31 04/02/2014 TIANA BORJAS, NATY M Ot 427.31 04/09/2014 TIANA BORJAS, NATY M Ot 429.3 04/09/2014 TIANA BORJAS, NATY M Ot 786.9 06/29/2014 TIANA BORJAS, NATY M Ot 427.31 ATRIAL FIBRILLATION 07/18/2014 TIANA BORJAS, NATY M Ot 429.3 07/18/2014 TIANA BORJAS, NATY M Ot 786.9 07/29/2014 TIANA BORJAS, NATY M Ot 429.3 07/29/2014 TIANA BORJAS, NATY Lay Ot 786.9 10/14/2014 Ot V76.12 10/14/2014 Ot V76.12 10/14/2014 Ot 719.46 10/14/2014 Ot 786.2 10/14/2014 Ot V15.51 10/14/2014 Ot 786.2 10/14/2014 Ot 486 10/14/2014 Ot 786.05 10/14/2014 Ot 401.1 10/14/2014 Ot 428.0 10/14/2014 Ot 427.31 10/14/2014 Ot 782.3 10/14/2014 Ot 719.40 10/14/2014 Ot 782.3 10/14/2014 Ot 401.1 10/14/2014 Ot 427.31 10/14/2014 Ot V58.69 10/14/2014 TIANA BORJAS, NATY M Ot 244.8 10/14/2014 TIANA BORJAS, NATY M Ot 272.4 10/14/2014 TIANA BORJAS, NATY M Ot 401.1 10/14/2014 TIANA BORJAS, NATY M Ot 451.11 10/14/2014 TIANA BORJAS, NATY M Ot 401.1 10/14/2014 TIANA BORJAS, NATY M Ot 428.0 10/14/2014 TIANA BORJAS, NATY M Ot 429.3 10/14/2014 TIANA BORJAS, NATY M Ot 721.2 10/14/2014 TIANA BORJAS, NATY M Ot 786.05 10/14/2014 TIANA BORJAS, NATY M Ot 786.2 10/14/2014 TIANA BORJAS, NATY M Ot 244.8 10/14/2014 TIANA BORJAS, NATY M Ot 272.4 10/14/2014 TIANA BORJAS, NATY M Ot 401.1 10/14/2014 TIANA BORJAS, NATY M Ot 429.3 10/14/2014 TIANA BORJAS, NATY M Ot 786.9 10/14/2014 TIANA BORJAS, NATY M Ot 427.31 10/21/2014 MARIUSZ BORJAS, JAMEE Kennedy Ot V58.61 10/21/2014 MARIUSZ BORJAS, JAMEE A Ot V58.83 11/05/2014 KATHYA SMITH INSURANCE SALES ASSISTANT Ot 496 11/05/2014 KATHYA SMITH INSURANCE SALES ASSISTANT Ot 721.3 11/05/2014 KATHYA SMITH INSURANCE SALES ASSISTANT Ot 733.90 11/05/2014 KATHYA SMITH INSURANCE SALES ASSISTANT Ot 737.30 11/05/2014 MARIUSZ BORJAS, JAMEE A Ot V58.61 11/05/2014 MARIUSZ BORJAS, JAMEE A Ot V58.83 11/10/2014 MARIUSZ BORJAS, JAMEE A Ot 530.6 11/10/2014 MARIUSZ BORJAS, JAMEE A Ot 786.2 11/10/2014 MARIUSZ BORJAS, JAMEE A Ot 787.22 11/10/2014 MARIUSZ BORJAS, JAMEE A Ot V58.61 11/10/2014 MARIUSZ BORJAS, JAMEE A Ot V58.83 11/11/2014 MARIUSZ BORJAS, JAMEE A Ot V58.61 11/11/2014 MARIUSZ BORJAS, JAMEE A Ot V58.83 11/11/2014 MARIUSZ BORJAS, JAMEE A Ot V58.61 11/11/2014 MARIUSZ BORJAS, JAMEE Kennedy Ot V58.83 11/18/2014 Ot V76.12 11/18/2014 Ot 719.46 11/18/2014 Ot 786.2 11/18/2014 Ot V15.51 11/18/2014 Ot 786.2 11/18/2014 Ot 486 11/18/2014 Ot 786.05 11/18/2014 Ot 401.1 11/18/2014 Ot 428.0 11/18/2014 Ot 427.31 11/18/2014 Ot 782.3 11/18/2014 Ot 719.40 11/18/2014 Ot 782.3 11/18/2014 Ot 401.1 11/18/2014 Ot 427.31 11/18/2014 Ot V58.69 11/18/2014 TIANA BORJAS, NATY M Ot 244.8 11/18/2014 TIANA BORJAS, NATY M Ot 272.4 11/18/2014 TIANA BORJAS, NATY M Ot 401.1 11/18/2014 TIANA BORJAS, NATY M Ot 451.11 11/18/2014 TIANA BORJAS, NATY M Ot 401.1 11/18/2014 TIANA BORJAS, NATY M Ot 428.0 11/18/2014 TIANA BORJAS, NATY M Ot 429.3 11/18/2014 TIANA BORJAS, NATY M Ot 721.2 11/18/2014 TIANA BORJAS, NATY M Ot 786.05 11/18/2014 TIANA BORJAS, NATY M Ot 786.2 11/18/2014 TIANA BORJAS, NATY M Ot 244.8 11/18/2014 TIANA BORJAS, NATY M Ot 272.4 11/18/2014 TIANA BORJAS, NATY M Ot 401.1 11/18/2014 TIANA BORJAS, NATY M Ot 429.3 11/18/2014 TIANA BORJAS, NATY M Ot 786.9 11/18/2014 TIANA BORJAS, NATY M Ot 427.31 11/18/2014 KATHYA SMITH INSURANCE SALES ASSISTANT Ot 496 11/18/2014 KATHYA SMITH INSURANCE SALES ASSISTANT Ot 721.3 11/18/2014 KATHYA SMITH INSURANCE SALES ASSISTANT Ot 733.90 11/18/2014 KATHYA SMITH INSURANCE SALES ASSISTANT Ot 737.30 11/18/2014 SARAHKATHYA INSURANCE SALES ASSISTANT Ot 787.22 11/18/2014 MARIUSZ BORJAS, JAMEE A Ot V58.61 11/18/2014 MARIUSZ BORJAS, JAMEE A Ot V58.83 11/18/2014 MARIUSZ BORJAS, JAMEE A Ot V58.61 11/18/2014 MARIUSZ BORJAS, JAMEE A Ot V58.83 11/18/2014 MARIUSZ BORJAS, JAMEE A Ot V58.61 11/18/2014 MARIUSZ BORJAS, JAMEE A Ot V58.83 11/18/2014 MARIUSZ BORJAS, JAMEE A Ot V58.61 11/18/2014 MARIUSZ BORJAS, JAMEE A Ot V58.83 11/18/2014 MARIUSZ BORJAS, JAMEE A Ot 530.6 11/18/2014 MARIUSZ BORJAS, JAMEE A Ot 786.2 11/18/2014 MARIUSZ BORJAS, JAMEE A Ot 787.22 11/18/2014 MARIUSZ BORJAS, JAMEE A Ot V58.61 11/18/2014 MARIUSZ BORJAS, JAMEE A Ot V58.83 11/18/2014 MARIUSZ BORJAS, JAMEE A Ot V58.61 11/18/2014 MARIUSZ BORJAS, JAMEE A Ot V58.83 11/21/2014 NAHUN BORJAS, JORDAN R Ot 276.8 11/21/2014 NAHUN BORJAS, JORDAN R Ot 288.60 11/21/2014 NAHUN BORJAS, JORDAN R Ot 297.1 11/21/2014 NAHUN BORJAS, JORDAN R Ot 401.9 11/21/2014 NAHUN BORJAS, JORDAN R Ot 414.01 11/21/2014 NAHUN BORJAS, JORDAN R Ot 427.31 11/21/2014 NAHUN BORJAS, JORDAN R Ot 466.0 11/21/2014 NHAUN BORJAS, JORDAN R Ot 496 11/21/2014 NAHUN BORJAS, JORDAN R Ot 530.6 11/21/2014 NAHUN BORJAS, JORDAN R Ot 530.81 11/21/2014 NAHUN BORJAS, JORDAN R Ot 716.90 11/21/2014 NAHUN BORJAS, JORDAN R Ot 920 11/21/2014 NAHUN BORJAS, JORDAN R Ot 922.1 11/21/2014 NAHUN BORJAS, JORDAN R Ot 923.10 11/21/2014 NAHUN BORJAS, JORDAN R Ot E849.0 11/21/2014 NAHUN BORJAS, JORDAN R Ot E888.9 11/21/2014 NAHUN BORJAS, JORDAN R Ot V58.61 11/21/2014 NAHUN BORJAS, JORDAN R Ot 276.8 11/21/2014 NAHUN BORJAS, JORDAN R Ot 288.60 11/21/2014 NAHUN BORJAS, JORDAN R Ot 297.1 11/21/2014 NAHUN BORJAS, JORDAN R Ot 401.9 11/21/2014 NAHUN BORJAS, JORDAN R Ot 414.01 11/21/2014 NAHUN BORJAS, JORDAN R Ot 427.31 11/21/2014 NAHUN BORJAS, JORDAN R Ot 466.0 11/21/2014 NAHUN BORJAS, JORDAN R Ot 496 11/21/2014 NAHUN BORJAS, JORDAN R Ot 530.6 11/21/2014 NAHUN BORJAS, JORDAN R Ot 530.81 11/21/2014 NAHUN BORJAS, JORDAN R Ot 716.90 11/21/2014 NAHUN BORJAS, JORDAN R Ot 920 11/21/2014 NAHUN BORJAS, JORDAN R Ot 922.1 11/21/2014 NAHUN BORJAS, JORDAN R Ot 923.10 11/21/2014 NAHUN BORJAS, JORDAN R Ot E849.0 11/21/2014 NAHUN BORJAS, JORDAN R Ot E888.9 11/21/2014 NAHUN BORJAS, JORDAN R Ot V58.61 11/24/2014 MARIUSZ BORJAS, JAMEE A Ot V58.61 11/24/2014 MARIUSZ BORJAS, JAMEE A Ot V58.83 11/25/2014 MARIUSZ BORJAS, JAMEE A Ot V58.61 11/25/2014 MARIUSZ BORJAS, JAMEE A Ot V58.83 11/27/2014 NAHUN BORJAS, JORDAN R Ot 276.8 11/27/2014 NAHUN BORJAS, JORDAN R Ot 288.60 11/27/2014 NAHUN BORJAS, JORDAN R Ot 297.1 11/27/2014 NAHUN BORJAS, JORDAN R Ot 397.0 11/27/2014 NAHUN BORJAS, JORDAN R Ot 401.9 11/27/2014 NAHUN BORJAS, JORDAN R Ot 414.01 11/27/2014 NAHUN BORJAS, JORDAN R Ot 424.1 11/27/2014 NAHUN BORJAS, JORDAN R Ot 427.31 11/27/2014 NAHUN BORJAS, JORDAN R Ot 491.22 11/27/2014 NAHUN BORJAS, JORDAN R Ot 507.0 11/27/2014 NAHUN BORJAS, JORDAN R Ot 530.6 11/27/2014 NAHUN BORJAS, JORDAN R Ot 530.81 11/27/2014 NAHUN BORJAS, JORDAN R Ot 599.0 11/27/2014 NAHUN BORJAS, JORDAN R Ot 716.90 11/27/2014 NAHUN BORJAS, JORDAN R Ot 781.2 11/27/2014 NAHUN BORJAS, JORDAN R Ot 786.50 11/27/2014 NAHUN BORJAS, JORDAN R Ot 790.92 11/27/2014 NAHUN BORJAS, JORDAN R Ot 920 11/27/2014 NAHUN BORJAS, JORDAN R Ot 922.1 11/27/2014 NAHUN BORJAS, JORDAN R Ot 923.10 11/27/2014 NAHUN BORJAS, JORDAN R Ot E849.0 11/27/2014 NAHUN BORJAS, JORDAN R Ot E888.9 11/27/2014 NAHUN BORJAS, JORDAN R Ot V58.61 11/27/2014 MARIUSZ BORJAS, JAMEE Kennedy Ot 530.6 11/27/2014 MARIUSZ BORJAS, JAMEE A Ot 786.2 11/27/2014 MARIUSZ BORJAS, JAMEE A Ot 787.22 11/27/2014 NAHUN BORJAS, JORDAN R Ot 276.8 11/27/2014 NAHUN BORJAS, JORDAN R Ot 288.60 11/27/2014 NAHUN BORJAS, JORDAN R Ot 297.1 11/27/2014 NAUHN BORJAS, JORDAN R Ot 397.0 11/27/2014 NAHUN BORJAS, JORDAN R Ot 401.9 11/27/2014 NAHUN BORJAS, JORDAN R Ot 414.01 11/27/2014 NAHUN BORJAS, JORDAN R Ot 424.1 11/27/2014 NAHUN BORJAS, JORDAN R Ot 427.31 11/27/2014 NAHUN BORJAS, JORDAN R Ot 491.22 11/27/2014 NAHUN BORJAS, JORDAN R Ot 507.0 11/27/2014 NAHUN BORJAS, JORDAN R Ot 530.6 11/27/2014 NAHUN BORJAS, JORDAN R Ot 530.81 11/27/2014 NAHUN BORJAS, JORDAN R Ot 599.0 11/27/2014 NAHUN BORJAS, JORDAN R Ot 716.90 11/27/2014 NAHUN BORJAS, JORDAN R Ot 781.2 11/27/2014 NAHUN BORJAS, JORDAN R Ot 786.50 11/27/2014 NAHUN BORJAS, JORDAN R Ot 790.92 11/27/2014 NAHUN BORJAS, JORDAN R Ot 920 11/27/2014 NAHUN BORJAS, JORDAN R Ot 922.1 11/27/2014 NAHUN BORJAS, JORDAN R Ot 923.10 11/27/2014 NAHUN BORJAS, JORDAN R Ot E849.0 11/27/2014 NAHUN BORJAS, JORDAN R Ot E888.9 11/27/2014 NAHUN BORJAS, JORDAN R Ot V58.61 11/28/2014 NAHUN BORJAS, JORDAN R Ot 276.8 11/28/2014 NAHUN BORJAS, JORDAN R Ot 288.60 11/28/2014 NAHUN BORJAS, JORDAN R Ot 297.1 11/28/2014 NAHUN BOJRAS, JORDAN R Ot 397.0 11/28/2014 NAHUN BORJAS, JORDAN R Ot 401.9 11/28/2014 NAHUN BORJAS, JORDAN R Ot 414.01 11/28/2014 NAHUN BORJAS, JORDAN R Ot 424.1 11/28/2014 NAHUN BORJAS, JORDAN R Ot 427.31 11/28/2014 NAHUN BORJAS, JORDAN R Ot 491.22 11/28/2014 NAHUN BORJAS, JORDAN R Ot 507.0 11/28/2014 NAHUN BORJAS, JORDAN R Ot 530.6 11/28/2014 NAHUN BORJAS, JORDAN R Ot 530.81 11/28/2014 NAHUN BORJAS, JORDAN R Ot 599.0 11/28/2014 NAHUN BORJAS, JORDAN R Ot 716.90 11/28/2014 NAHUN BORJAS, JORDAN R Ot 781.2 11/28/2014 NAHUN BORJAS, JORDAN R Ot 786.50 11/28/2014 NAHUN BORJAS, JORDAN R Ot 790.92 11/28/2014 NAHUN BORJAS, JORDAN R Ot 920 11/28/2014 NAHUN BORJAS, JORDAN R Ot 922.1 11/28/2014 NAHUN BORJAS, JORDAN R Ot 923.10 11/28/2014 NAHUN BORJAS, JORDAN R Ot E849.0 11/28/2014 NAHUN BORJAS, JORDAN R Ot E888.9 11/28/2014 NAHUN BORJAS, JORDAN R Ot V58.61 12/01/2014 NAHUN BORJAS, JORDAN R Ot 276.8 12/01/2014 NAHUN BORJAS, JORDAN R Ot 288.60 12/01/2014 NAHUN BORJAS, JORDAN R Ot 297.1 12/01/2014 NAHUN BORJAS, JORDAN R Ot 397.0 12/01/2014 NAHUN BORJAS, JORDAN R Ot 401.9 12/01/2014 NAHUN BORJAS, JORDAN R Ot 414.01 12/01/2014 NAHUN BORJAS, JORDAN R Ot 424.1 12/01/2014 NAHUN BORJAS, JORDNA R Ot 427.31 12/01/2014 NAHUN BORJAS, JORDAN R Ot 491.22 12/01/2014 NAHUN BORJAS, JORDAN R Ot 507.0 12/01/2014 NAHUN BORJAS, JORDAN R Ot 530.6 12/01/2014 NAHUN BORJAS, JORDAN R Ot 530.81 12/01/2014 NAHUN BORJAS, JORDAN R Ot 599.0 12/01/2014 NAHUN BORJAS, JORDAN R Ot 716.90 12/01/2014 NAHUN BORJAS, JORDAN R Ot 781.2 12/01/2014 NAHUN BORJAS, JORDAN R Ot 786.50 12/01/2014 NAHUN BORJAS, JORDAN R Ot 790.92 12/01/2014 NAHUN BORJAS, JORDAN R Ot 920 12/01/2014 NAHUN BOJRAS, JORDAN R Ot 922.1 12/01/2014 NAHUN BORJAS, JORDAN R Ot 923.10 12/01/2014 NAHUN BORJAS, JORDAN R Ot E849.0 12/01/2014 NAHUN BORJAS, JORDAN R Ot E888.9 12/01/2014 NAHUN BORJAS, JORDAN R Ot V58.61 12/01/2014 NAHUN BORJAS, JORDAN R Ot 276.8 12/01/2014 NAHUN BORJAS, JODRAN R Ot 288.60 12/01/2014 NAHUN BORJAS, JORDAN R Ot 297.1 12/01/2014 NAHUN BORJAS, JORDAN R Ot 397.0 12/01/2014 NAHUN BORJAS, JORDAN R Ot 401.9 12/01/2014 NAHUN BORJAS, JORDAN R Ot 414.01 12/01/2014 NAHUN BORJAS, JORDAN R Ot 424.1 12/01/2014 NAHUN BORJAS, JORDAN R Ot 427.31 12/01/2014 NAHUN BORJAS, JORDAN R Ot 491.22 12/01/2014 NAHUN BORJAS, JORDAN R Ot 507.0 12/01/2014 NAHUN BORJAS, JORDAN R Ot 530.6 12/01/2014 NAHUN BORJAS, JORDAN R Ot 530.81 12/01/2014 NAHUN BORJAS, JORDAN R Ot 599.0 12/01/2014 NAHUN BORJAS, JORDAN R Ot 716.90 12/01/2014 NAHUN BORJAS, JORDAN R Ot 781.2 12/01/2014 NAHUN BOJRAS, JORDAN R Ot 786.50 12/01/2014 NAHUN BORJAS, JORDAN R Ot 790.92 12/01/2014 NAHNU BORJAS, JORDAN R Ot 920 12/01/2014 NAHUN BORJAS, JORDAN R Ot 922.1 12/01/2014 NAHUN BORJAS, JORDAN R Ot 923.10 12/01/2014 NAHUN BORJAS, JORDAN R Ot D72.829 ELEVATED WHITE BLOOD CELL COUNT, UNSPECI 12/01/2014 NAHUN BORJAS, JORDAN R Ot E849.0 12/01/2014 NAHUN BORJAS, JORDAN R Ot E87.6 HYPOKALEMIA 12/01/2014 JORDAN GARNICA MD Ot E888.9 12/01/2014 JORDAN GARNICA MD, Ot I10 ESSENTIAL (PRIMARY) HYPERTENSION 12/01/2014 JORDAN GARNICA MD Ot I25.10 ATHSCL HEART DISEASE OF [place] CORONARY 12/01/2014 JORDAN GARNICA MD Ot I48.91 UNSPECIFIED ATRIAL FIBRILLATION 12/01/2014 JORDAN GARNICA MD Ot J20.9 ACUTE BRONCHITIS, UNSPECIFIED 12/01/2014 JORDAN GARNICA MD, Ot J44.0 CHRONIC OBSTRUCTIVE PULMON DISEASE W ACU 12/01/2014 JORDAN GARNICA MD, Ot J69.0 PNEUMONITIS DUE TO INHALATION OF FOOD AN 12/01/2014 JORDAN GARNICA MD, Ot K21.9 GASTRO-ESOPHAGEAL REFLUX DISEASE WITHOUT 12/01/2014 JORDAN GARNICA MD Ot 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, ACQUIRED 12/01/2014 JORDAN GARNICA MD Ot M19.90 UNSPECIFIED OSTEOARTHRITIS, UNSPECIFIED 12/01/2014 JORDAN GARNICA MD Ot N39.0 URINARY TRACT INFECTION, SITE NOT SPECIF 12/01/2014 JORDAN GARNICA MD Ot R26.81 UNSTEADINESS ON FEET 12/01/2014 JORDAN GARNICA MD Ot R41.0 DISORIENTATION, UNSPECIFIED 12/01/2014 JORDAN GARNICA MD Ot R79.1 ABNORMAL COAGULATION PROFILE 12/01/2014 JORDAN GARNICA MD Ot S00.03XA CONTUSION OF SCALP, INITIAL ENCOUNTER 12/01/2014 JORDAN GARNICA MD Ot S20.20XA CONTUSION OF THORAX, UNSPECIFIED, INITIA 12/01/2014 JORDAN GARNICA MD Ot S50.12XA CONTUSION OF LEFT FOREARM, INITIAL ENCOU 12/01/2014 JORDAN GARNICA MD Ot V58.61 12/01/2014 JORDAN GARNICA MD Ot W19.XXXA UNSPECIFIED FALL, INITIAL ENCOUNTER 12/01/2014 JORDAN GARNICA MD Ot Y92.[address] IN [facility] NON-INSTITUTIONAL RESI 12/01/2014 SEGLIE MD, JORDAN R Ot Z23 ENCOUNTER FOR IMMUNIZATION 12/01/2014 NAHUN BORJAS, JORDAN R Ot Z66 DO NOT RESUSCITATE 12/01/2014 NAHUN BORJAS, JORDAN R Ot Z79.01 PRISON (CURRENT) USE OF ANTICOAGULANT 12/01/2014 TIANA BORJAS, NATY Lay Ot 427.31 12/05/2014 MARIUSZ BORJAS, JAMEE Kennedy Ot I08.2 12/05/2014 JAMEE VEE MD Ot I10 12/05/2014 JAMEE VEE MD Ot I25.10 12/05/2014 JAMEE VEE MD Ot I48.91 12/05/2014 JAMEE VEE MD Ot J69.0 12/05/2014 JAMEE VEE MD Ot K21.9 12/05/2014 JAMEE VEE MD Ot N39.0 12/05/2014 JAMEE VEE MD Ot R13.10 12/05/2014 JAMEE VEE MD Ot S00.03XD 12/05/2014 JAMEE VEE MD Ot W19.XXXD 12/05/2014 JAMEE VEE MD Ot Z48.815 12/05/2014 JAMEE VEE MD Ot Z66 12/08/2014 JAMEE VEE MD Ot 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 12/08/2014 JAMEE VEE MD Ot I10 ESSENTIAL (PRIMARY) HYPERTENSION 12/08/2014 JAMEE VEE MD Ot I25.10 ATHSCL HEART DISEASE OF [place] CORONARY 12/08/2014 JAMEE VEE MD Ot I48.2 CHRONIC ATRIAL FIBRILLATION 12/08/2014 JAMEE VEE MD Ot I48.91 12/08/2014 JAMEE VEE MD Ot J69.0 PNEUMONITIS DUE TO INHALATION OF FOOD AN 12/08/2014 JAMEE EVE MD Ot K21.9 GASTRO-ESOPHAGEAL REFLUX DISEASE WITHOUT 12/08/2014 JAMEE VEE MD Ot N39.0 URINARY TRACT INFECTION, SITE NOT SPECIF 12/08/2014 JAMEE VEE MD Ot R13.10 DYSPHAGIA, UNSPECIFIED 12/08/2014 JAMEE VEE MD Ot R41.0 DISORIENTATION, UNSPECIFIED 12/08/2014 JAMEE VEE MD Marcia Ot S00.03XD CONTUSION OF SCALP, SUBSEQUENT ENCOUNTER 12/08/2014 MARIUSZ BORJAS, JAMEE Marcia Ot W19.XXXD UNSPECIFIED FALL, SUBSEQUENT ENCOUNTER 12/08/2014 MARIUSZ BORJAS, JAMEE Marcia Ot Z48.815 ENCNTR FOR SURGICAL AFTCR FOLLOWING SURG 12/08/2014 MARIUSZ BORJAS, JAMEE Kennedy Ot Z66 DO NOT RESUSCITATE 12/11/2014 NAHUN BORJAS, JORDAN R Ot D72.829 12/11/2014 NAHUN BORJAS, JORDAN R Ot E87.6 12/11/2014 NAHUN BORJAS, JORDAN R Ot I10 12/11/2014 NAHUN BORJAS, JORDAN R Ot I25.10 12/11/2014 NAHUN BORJAS, JORDAN R Ot I48.91 12/11/2014 NAHUN BORJAS, JORDAN R Ot J20.9 12/11/2014 NAHUN BORJAS, JORDAN R Ot J44.0 12/11/2014 NAHUN BORJAS, JORDAN R Ot J69.0 12/11/2014 NAHUN BORJAS, JORDAN R Ot K21.9 12/11/2014 NAHUN BORJAS, JORDAN R Ot K22.5 12/11/2014 NAHUN BORJAS, JORDAN R Ot M19.90 12/11/2014 NAHUN BORJAS, JORDAN R Ot N39.0 12/11/2014 NAHUN BORJAS, JORDAN R Ot R26.81 12/11/2014 NAHUN BORJAS, JORDAN R Ot R41.0 12/11/2014 NAHUN BORJAS, JORDAN R Ot R79.1 12/11/2014 NAHUN BORJAS, JORDAN R Ot S00.03XA 12/11/2014 NAHUN BORJAS, JORDAN R Ot S20.20XA 12/11/2014 NAHUN BORJAS, JORDAN R Ot S50.12XA 12/11/2014 NAHUN BORJAS, JORDAN R Ot W19.XXXA 12/11/2014 NAHUN BORJAS, JORDAN R Ot Y92.099 12/11/2014 NAHUN BORJAS, JORDAN R Ot Z66 12/11/2014 NAHUN BORJAS, JORDAN R Ot Z79.01 12/11/2014 NAHUN BORJAS, JORDAN R Ot D72.829 12/11/2014 NAHUN BORJAS, JORDAN R Ot E87.6 12/11/2014 NAHUN BORJAS, JORDAN R Ot I10 12/11/2014 NAHUN BORJAS, JORDAN R Ot I25.10 12/11/2014 NAHUN BORJAS, JORDAN R Ot I48.91 12/11/2014 NAHUN BORJAS, JORDAN R Ot J20.9 12/11/2014 NAHUN BORJAS, JORDAN R Ot J44.0 12/11/2014 NAHUN BORJAS, JORDAN R Ot J69.0 12/11/2014 NAHUN BORJAS, JORDAN R Ot K21.9 12/11/2014 NAHUN BORJAS, JORDAN R Ot K22.5 12/11/2014 NAHUN BORJAS, JORDAN R Ot M19.90 12/11/2014 NAHUN BORJAS, JORDAN R Ot N39.0 12/11/2014 NAHUN BORJAS, JORDAN R Ot R26.81 12/11/2014 NAHUN BORJAS, JORDAN R Ot R41.0 12/11/2014 NAHUN BORJAS, JORDAN R Ot R79.1 12/11/2014 NAHUN BORJAS, JORDAN R Ot S00.03XA 12/11/2014 NAHUN BORJAS, JORDAN R Ot S20.20XA 12/11/2014 NAHUN BORJAS, JORDAN R Ot S50.12XA 12/11/2014 NAHUN BORJAS, JORDAN R Ot W19.XXXA 12/11/2014 NAHUN BORJAS, JORDAN R Ot Y92.099 12/11/2014 NAHUN BORJAS, JORDAN R Ot Z66 12/11/2014 NAHUN BORJAS, JORDAN R Ot Z79.01 12/11/2014 NAHUN BORJAS, JORDAN R Ot D72.829 12/11/2014 NAHUN BORJAS, JORDAN R Ot E87.6 12/11/2014 NAHUN BORJAS, JORDAN R Ot I10 12/11/2014 NAHUN BORJAS, JORDAN R Ot I25.10 12/11/2014 NAHUN BORJAS, JORDAN R Ot I48.91 12/11/2014 NAHUN BORJAS, JORDAN R Ot J20.9 12/11/2014 NAHUN BORJAS, JORDAN R Ot J44.0 12/11/2014 NAHUN BORJAS, JORDAN R Ot J69.0 12/11/2014 NAHUN BORJAS, JORDAN R Ot K21.9 12/11/2014 NAHUN BORJAS, JORDAN R Ot K22.5 12/11/2014 NAHUN BORJAS, JORDAN R Ot M19.90 12/11/2014 NAHUN BORJAS, JORDAN R Ot N39.0 12/11/2014 NAHUN BORJAS, JORDAN R Ot R26.81 12/11/2014 NAHUN BORJAS, JORDAN R Ot R41.0 12/11/2014 NAHUN BORJAS, JORDAN R Ot R79.1 12/11/2014 NAHUN BORJAS, JORDAN R Ot S00.03XA 12/11/2014 NAHUN BORJAS, JORDAN R Ot S20.20XA 12/11/2014 NAHUN BORJAS, JORDAN R Ot S50.12XA 12/11/2014 NAHUN BORJAS, JORDAN R Ot W19.XXXA 12/11/2014 NAHUN BORJAS, JORDAN R Ot Y92.099 12/11/2014 NAHUN BORJAS, JORDAN R Ot Z66 12/11/2014 NAHUN BORJAS, JORDAN R Ot Z79.01 12/11/2014 NAHUN BORJAS, JORDAN R Ot D72.829 12/11/2014 NAHUN BORJAS, JORDAN R Ot E87.6 12/11/2014 NAHUN BORJAS, JORDAN R Ot I10 12/11/2014 NAHUN BORJAS, JORDAN R Ot I25.10 12/11/2014 NAHUN BORJAS, JORDAN R Ot I48.91 12/11/2014 NAHUN BORJAS, JORDAN R Ot J20.9 12/11/2014 NAHUN BORJAS, JORDAN R Ot J44.0 12/11/2014 NAHUN BORJAS, JORDAN R Ot J69.0 12/11/2014 NAHUN BORJAS, JORDAN R Ot K21.9 12/11/2014 NAHUN BORJAS, JORDAN R Ot K22.5 12/11/2014 NAHUN BORJAS, JORDAN R Ot M19.90 12/11/2014 NAHUN BORJAS, JORDAN R Ot N39.0 12/11/2014 NAHUN BORJAS, JORDAN R Ot R26.81 12/11/2014 NAHUN BORJAS, JORDAN R Ot R41.0 12/11/2014 NAHUN BORJAS, JORDAN R Ot R79.1 12/11/2014 NAHUN BORJAS, JORDAN R Ot S00.03XA 12/11/2014 NAHUN BORJAS, JORDAN R Ot S20.20XA 12/11/2014 NAHUN BORJAS, JORDAN R Ot S50.12XA 12/11/2014 NAHUN BORJAS, JORDAN R Ot W19.XXXA 12/11/2014 NAHUN BORJAS, JORDAN R Ot Y92.099 12/11/2014 NAHUN BORJAS, JORDAN R Ot Z66 12/11/2014 NAHUN BORJAS, JORDAN R Ot Z79.01 12/15/2014 MARIUSZ BORJAS, JAMEE A Ot V58.61 12/15/2014 MARIUSZ BORJAS, JAMEE A Ot V58.83 12/31/2014 MARIUSZ BORJAS, JAMEE A Ot R19.7 12/31/2014 VANGIE BORJAS, KAYE Bright Ot E87.70 12/31/2014 VANGIE BORJAS, KAYE Bright Ot R60.9 12/31/2014 MARIUSZ BORJAS, JAMEE Kennedy Ot 530.6 12/31/2014 MARIUSZ BORJAS, JAMEE Kennedy Ot 786.2 12/31/2014 MARIUSZ BORJAS, JAMEE Kennedy Ot 787.22 12/31/2014 KATHYA SMITH INSURANCE SALES ASSISTANT Ot 496 12/31/2014 KATHYA SMITH INSURANCE SALES ASSISTANT Ot 721.3 12/31/2014 KATHYA SMITH INSURANCE SALES ASSISTANT Ot 733.90 12/31/2014 KATHYA SMITH INSURANCE SALES ASSISTANT Ot 737.30 01/01/2015 MARIUSZ BORJAS, JAMEE A Ot R19.7 01/13/2015 KATHYA SMITH INSURANCE SALES ASSISTANT Ot 496 01/13/2015 KATHYA SMITH INSURANCE SALES ASSISTANT Ot 721.3 01/13/2015 KATHYA SMITH INSURANCE SALES ASSISTANT Ot 733.90 01/13/2015 KATHYA SMITH INSURANCE SALES ASSISTANT Ot 737.30 01/13/2015 MARIUSZ BORJAS, JAMEE A Ot 530.6 01/13/2015 MARIUSZ BORJAS, JAMEE Kennedy Ot 786.2 01/13/2015 MARIUSZ BORJAS, JAMEE Kennedy Ot 787.22 01/26/2015 MARIUSZ BORJAS, JAMEE Kennedy Ot I50.9 01/30/2015 DE LEON-TIMOTHY PA, HEATH K Ot I10 01/30/2015 DE LEON-TIMOTHY PA, HEATH K Ot I27.0 01/30/2015 DE LEON-TIMOTHY PA, HEATH K Ot I35.1 01/30/2015 DE LEON-TIMOTHY PA, HEATH K Ot I48.91 02/06/2015 DE LEON-TIMOTHY PA, HEATH K Ot I10 02/06/2015 DE LEON-TIMOTHY PA, HEATH K Ot I27.0 02/06/2015 DE LEON-TIMOTHY PA, HEATH K Ot I35.1 02/06/2015 DE LEON-TIMOTHY PA, HEATH K Ot I48.91 02/06/2015 DE LEON-TIMOTHY PA, HEATH K Ot R09.89 02/24/2015 DE LEON-TIMOTHY PA, HEATH K Ot I10 02/24/2015 DE LEON-TIMOTHY PA, HEATH K Ot I27.0 02/24/2015 DE LEON-TIMOTHY PA, HEATH K Ot I35.1 02/24/2015 DE LEON-TIMOTHY PA, HEATH K Ot I48.91 03/04/2015 VANGIE BORJAS, KAYE Bright Ot E87.70 03/04/2015 VANGIE BORJAS, KAYE Bright Ot R60.9 03/04/2015 DE LEON-TIMOTHY PA, HEATH K Ot I10 03/04/2015 DE LEON-TIMOTHY PA, HEATH K Ot I27.0 03/04/2015 DE LEON-TIMOTHY PA, HEATH K Ot I35.1 03/04/2015 DE LEON-TIMOTHY PA, HEATH K Ot I48.91 03/04/2015 DE LEON-TIMOTHY PA, HEATH K Ot R09.89 03/05/2015 MARIUSZ BORJAS, JAMEE Kennedy Ot R82.99 03/09/2015 DE LEON-TIMOTHY PA, HEATH K Ot I10 03/09/2015 DE LEON-TIMOTHY PA, HEATH K Ot I27.0 03/09/2015 DE LEON-TIMOTHY PA, HEATH K Ot I35.1 03/09/2015 DE LEON-TIMOTHY PA, HEATH K Ot I48.91 03/09/2015 DE LEON-TIMOTHY PA, HEATH K Ot R09.89 03/09/2015 DE LEON-TIMOTHY PA, HEATH K Ot I10 03/09/2015 DE LEON-TIMOTHY PA, HEATH K Ot I27.0 03/09/2015 DE LEON-TIMOTHY PA, HEATH K Ot I35.1 03/09/2015 DE LEON-TIMOTHY PA, HEATH K Ot I48.91 03/09/2015 DE LEON-TIMOTHY PA, HEATH K Ot R09.89 03/09/2015 DE LEON-TIMOTHY PA, HEATH K Ot I10 03/09/2015 DE LEON-TIMOTHY PA, HEATH K Ot I27.0 03/09/2015 DE LEON-TIMOTHY PA, HEATH K Ot I35.1 03/09/2015 DE LEON-TIMOTHY PA, HEATH K Ot I48.91 03/24/2015 DE LEON-TIMOTHY PA, HEATH K Ot I10 03/24/2015 DE LEON-TIMOTHY PA, HEATH K Ot I27.0 03/24/2015 DE LEON-TIMOTHY PA, HEATH K Ot I35.1 03/24/2015 DE LEON-TIMOTHY PA, HEATH K Ot I48.91 03/24/2015 DE LEON-TIMOTHY PA, HEATH K Ot R09.89 03/24/2015 ED LEON-TIMOTHY PA, HEATH K Ot I10 03/24/2015 DE LEON-TIMOTHY PA, HEATH K Ot I27.0 03/24/2015 DE LEON-TIMOTHY PA, HEATH K Ot I35.1 03/24/2015 DE LEON-TIMOTHY PA, HEATH K Ot I48.91 04/02/2015 MARIUSZ BORJAS, JAMEE Kennedy Ot Z51.81 04/02/2015 MARIUSZ BORJAS, JAMEE Kennedy Ot Z79.01 04/10/2015 MARIUSZ BORJAS, JAMEE Kennedy Ot Z51.81 04/10/2015 MARIUSZ BORJAS, JAMEE Kennedy Ot Z79.01 04/10/2015 Ot R82.99 04/23/2015 Ot R82.99 04/29/2015 MARIUSZ BORJAS, JAMEE Kennedy Ot Z51.81 04/29/2015 MARIUSZ BORJAS, JAMEE A Ot Z79.01 05/01/2015 MARIUSZ BORJAS, JAMEE A Ot Z51.81 05/01/2015 MARIUSZ BORJAS, JAMEE A Ot Z79.01 05/14/2015 MARIUSZ BORJAS, JAMEE A Ot Z51.81 05/14/2015 MARIUSZ BORJAS, JAMEE A Ot Z79.01 05/26/2015 MARUISZ BORJAS, JAMEE A Ot Z51.81 05/26/2015 MARIUSZ BORJAS, JAMEE A Ot Z79.01 06/12/2015 MARIUSZ BORJAS, JAMEE A Ot D64.9 ANEMIA, UNSPECIFIED 06/12/2015 MARIUSZ BORJAS, JAMEE A Ot I50.9 HEART FAILURE, UNSPECIFIED 06/12/2015 MARIUSZ BORJAS, JAMEE A Ot N39.0 URINARY TRACT INFECTION, SITE NOT SPECIF 06/17/2015 MARIUSZ BORJAS, JAMEE A Ot D64.9 ANEMIA, UNSPECIFIED 06/17/2015 MARIUSZ BORJAS, JAMEE A Ot I50.9 HEART FAILURE, UNSPECIFIED 06/17/2015 MARIUSZ BORJAS, JAMEE A Ot N39.0 URINARY TRACT INFECTION, SITE NOT SPECIF 06/17/2015 KATHYA SMITH Ot D64.9 ANEMIA, UNSPECIFIED 06/23/2015 MARIUSZ BORJAS, JAMEE A Ot D64.9 ANEMIA, UNSPECIFIED 07/01/2015 VENKAT BORJAS, PAM M Ot D64.9 ANEMIA, UNSPECIFIED 07/01/2015 VENKAT BORJAS, PAM M Ot R19.5 OTHER FECAL ABNORMALITIES 07/01/2015 VENKAT BORJAS, PAM M Ot Z01.818 ENCOUNTER FOR OTHER PREPROCEDURAL EXAMIN 07/02/2015 VENKAT BORJAS, PAM M Ot D64.9 ANEMIA, UNSPECIFIED 07/02/2015 VENKAT BORJAS, PAM M Ot R19.5 OTHER FECAL ABNORMALITIES 07/02/2015 VENKAT BORJAS, PAM M Ot Z01.818 ENCOUNTER FOR OTHER PREPROCEDURAL EXAMIN 07/03/2015 MARIUSZ BORJAS, JAMEE A Ot D64.9 ANEMIA, UNSPECIFIED 07/03/2015 MARIUSZ BORJAS, JAMEE A Ot I50.9 HEART FAILURE, UNSPECIFIED 07/03/2015 AMRIUSZ BORJAS, JAMEE A Ot N39.0 URINARY TRACT INFECTION, SITE NOT SPECIF 07/03/2015 DAYANARA SMITHIE M INSURANCE SALES ASSISTANT Ot D64.9 ANEMIA, UNSPECIFIED 07/06/2015 VENKAT BORJAS, PAM Lay Ot D64.9 ANEMIA, UNSPECIFIED 07/06/2015 VENKAT BORJAS, PAM Lay Ot K57.90 DVRTCLOS OF INTEST, PART UNSP, W/O PERF 07/06/2015 PAM ROBLEDO MD Ot K64.8 OTHER HEMORRHOIDS 07/07/2015 PAM ROBLEDO MD Ot D64.9 ANEMIA, UNSPECIFIED 07/07/2015 VENKAT BORJAS, PAM Lay Ot K57.90 DVRTCLOS OF INTEST, PART UNSP, W/O PERF 07/07/2015 PAM ROBLEDO MD Ot K64.8 OTHER HEMORRHOIDS 07/07/2015 JAMEE VEE MD Ot D50.0 IRON DEFICIENCY ANEMIA SECONDARY TO BLOO 07/14/2015 JAMEE VEE MD Ot D64.9 ANEMIA, UNSPECIFIED 07/14/2015 JAMEE VEE MD Ot I50.9 HEART FAILURE, UNSPECIFIED 07/14/2015 JAMEE VEE MD Ot N39.0 URINARY TRACT INFECTION, SITE NOT SPECIF 07/14/2015 KAYE VENCES MD Ot Z51.81 ENCOUNTER FOR THERAPEUTIC DRUG LEVEL MON 07/14/2015 KAYE VENCES MD, Ot 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 07/14/2015 KAYE VENCES MD Ot Z51.81 ENCOUNTER FOR THERAPEUTIC DRUG LEVEL MON 07/14/2015 KAYE VENCES MD Ot 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 07/15/2015 JAMEE VEE MD Ot D64.9 ANEMIA, UNSPECIFIED 07/17/2015 KAYE VENCES MD Ot Z51.81 ENCOUNTER FOR THERAPEUTIC DRUG LEVEL MON 07/17/2015 KAYE VENCES MD, Ot 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 07/21/2015 HEATH BOLDEN Ot I10 ESSENTIAL (PRIMARY) HYPERTENSION 07/21/2015 HEATH BOLDEN Ot I25.10 ATHSCL HEART DISEASE OF [place] CORONARY 07/21/2015 HEATH BOLDEN Ot I35.1 NONRHEUMATIC AORTIC (VALVE) INSUFFICIENC 07/21/2015 HEATH BOLDEN Ot I48.2 CHRONIC ATRIAL FIBRILLATION 07/31/2015 KAYE VENCES MD Ot Z51.81 ENCOUNTER FOR THERAPEUTIC DRUG LEVEL MON 07/31/2015 KAYE VENCES MD, Ot Z79.01 PRISON (CURRENT) USE OF ANTICOAGULANT 07/31/2015 KAYE VENCES MD Ot Z51.81 ENCOUNTER FOR THERAPEUTIC DRUG LEVEL MON 07/31/2015 KAYE VENCES MD, Ot 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 07/31/2015 KAYE VENCES MD Ot Z51.81 ENCOUNTER FOR THERAPEUTIC DRUG LEVEL MON 07/31/2015 KAYE VENCES MD, Ot Z79.01 PRISON (CURRENT) USE OF ANTICOAGULANT 07/31/2015 KAYE VENCES MD, Ot Z51.81 ENCOUNTER FOR THERAPEUTIC DRUG LEVEL MON 07/31/2015 KAYE VENCES MD, Ot Z79.01 PRISON (CURRENT) USE OF ANTICOAGULANT 07/31/2015 HEATH BOLDEN Ot I10 ESSENTIAL (PRIMARY) HYPERTENSION 07/31/2015 HEATH BOLDEN Ot I25.10 ATHSCL HEART DISEASE OF [place] CORONARY 07/31/2015 HEATH BOLDEN Ot I35.1 NONRHEUMATIC AORTIC (VALVE) INSUFFICIENC 07/31/2015 HEATH BOLDEN Ot I48.2 CHRONIC ATRIAL FIBRILLATION 07/31/2015 KATHYA SMITH Ot D64.9 ANEMIA, UNSPECIFIED 07/31/2015 JAMEE VEE MD Ot D64.9 ANEMIA, UNSPECIFIED 07/31/2015 JAMEE VEE MD Ot I50.9 HEART FAILURE, UNSPECIFIED 07/31/2015 JAMEE VEE MD Ot N39.0 URINARY TRACT INFECTION, SITE NOT SPECIF 08/04/2015 JAMEE VEE MD Ot D64.9 ANEMIA, UNSPECIFIED 08/04/2015 JAMEE VEE MD Ot I50.9 HEART FAILURE, UNSPECIFIED 08/04/2015 JAMEE VEE MD Ot N39.0 URINARY TRACT INFECTION, SITE NOT SPECIF 08/05/2015 IRAM LANDEROS MD Ot Z51.81 ENCOUNTER FOR THERAPEUTIC DRUG LEVEL MON 08/05/2015 IRAM LANDEROS MD Ot Z79.01 PRISON (CURRENT) USE OF ANTICOAGULANT 08/07/2015 KAYE VENCES MD Ot Z51.81 ENCOUNTER FOR THERAPEUTIC DRUG LEVEL MON 08/07/2015 KAYE VENCES MD, Ot Z79.01 PRISON (CURRENT) USE OF ANTICOAGULANT 08/14/2015 KAYE EVNCES MD Ot Z51.81 ENCOUNTER FOR THERAPEUTIC DRUG LEVEL MON 08/14/2015 KAYE VENCES MD, Ot 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 08/17/2015 KAYE VENCES MD Ot Z51.81 ENCOUNTER FOR THERAPEUTIC DRUG LEVEL MON 08/17/2015 KAYE VENCES MD, Ot 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 08/18/2015 KAYE VENCES MD, Ot Z51.81 ENCOUNTER FOR THERAPEUTIC DRUG LEVEL MON 08/18/2015 KAYE VENCES MD, Ot Z79.01 PRISON (CURRENT) USE OF ANTICOAGULANT 08/25/2015 IRAM LANDEROS MD Ot Z51.81 ENCOUNTER FOR THERAPEUTIC DRUG LEVEL MON 08/25/2015 IRAM LANDEROS MD, Ot Z79.01 PRISON (CURRENT) USE OF ANTICOAGULANT 08/27/2015 KATHYA SMITH Ot D64.9 ANEMIA, UNSPECIFIED 08/27/2015 HEATH BOLDEN Ot I10 ESSENTIAL (PRIMARY) HYPERTENSION 08/27/2015 HEATH BOLDEN Ot I25.10 ATHSCL HEART DISEASE OF [place] CORONARY 08/27/2015 HEATH BOLDEN Ot I35.1 NONRHEUMATIC AORTIC (VALVE) INSUFFICIENC 08/27/2015 HEATH BOLDEN Ot I48.2 CHRONIC ATRIAL FIBRILLATION 09/15/2015 KAYE VENCES MD, Ot Z51.81 ENCOUNTER FOR THERAPEUTIC DRUG LEVEL MON 09/15/2015 KAYE VENCES MD, Ot Z79.01 PRISON (CURRENT) USE OF ANTICOAGULANT 09/16/2015 KAYE VENCES MD, Ot Z51.81 ENCOUNTER FOR THERAPEUTIC DRUG LEVEL MON 09/16/2015 KAYE VENCES MD, Ot 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 09/24/2015 JAMEE VEE MD Ot N39.0 URINARY TRACT INFECTION, SITE NOT SPECIF 10/13/2015 JAMEE VEE MD Ot Z51.81 ENCOUNTER FOR THERAPEUTIC DRUG LEVEL MON 10/13/2015 JAMEE VEE MD Ot 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 10/14/2015 JAMEE VEE MD Ot N39.0 URINARY TRACT INFECTION, SITE NOT SPECIF 10/16/2015 KAYE VENCES MD Ot Z51.81 ENCOUNTER FOR THERAPEUTIC DRUG LEVEL MON 10/16/2015 KAYE VENCES MD Ot Z79.01 PRISON (CURRENT) USE OF ANTICOAGULANT 10/18/2015 KAYE VENCES MD Ot Z51.81 ENCOUNTER FOR THERAPEUTIC DRUG LEVEL MON 10/18/2015 KAYE VENCES MD Ot 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 10/22/2015 JAMEE VEE MD Ot I50.9 HEART FAILURE, UNSPECIFIED 10/26/2015 Ot 719.46 JOINT PAIN-L /LEG 10/26/2015 Ot 786.2 COUGH 10/26/2015 Ot V15.51 PERSONAL HISTORY OF TRAUMATIC FRACTURE 10/26/2015 Ot 786.2 COUGH 10/26/2015 Ot 486 PNEUMONIA, ORGANISM NOS 10/26/2015 Ot 786.05 SHORTNESS OF BREATH 10/26/2015 Ot 401.1 BENIGN HYPERTENSION 10/26/2015 Ot 428.0 CONGESTIVE HEART FAILURE NOS 10/26/2015 Ot 427.31 ATRIAL FIBRILLATION 10/26/2015 Ot 782.3 EDEMA 10/26/2015 Ot 719.40 JOINT PAIN- UNSPEC 10/26/2015 Ot 782.3 EDEMA 10/26/2015 Ot 401.1 BENIGN HYPERTENSION 10/26/2015 Ot 427.31 ATRIAL FIBRILLATION 10/26/2015 Ot V58.69 OTH MED,LT, CURRENT USE 10/26/2015 NATY MONTIEL MD Ot 244.8 ACQUIRED HYPOTHYROID NEC 10/26/2015 NATY MONTIEL MD Ot 272.4 HYPERLIPIDEMIA NEC/NOS 10/26/2015 NATY MONTIEL MD Ot 401.1 BENIGN HYPERTENSION 10/26/2015 NATY MONTIEL MD Ot 451.11 PHLEBITIS THROMBOPHLEBITIS,FEMORAL VEIN( 10/26/2015 NATY MONTIEL MD Ot 401.1 BENIGN HYPERTENSION 10/26/2015 NATY MONTIEL MD Ot 428.0 CONGESTIVE HEART FAILURE NOS 10/26/2015 NATY MONTIEL MD Ot 429.3 CARDIOMEGALY 10/26/2015 NATY MONTIEL MD Ot 721.2 THORACIC SPONDYLOSIS 10/26/2015 NATY MONTIEL MD Ot 786.05 SHORTNESS OF BREATH 10/26/2015 NATY MONTIEL MD Ot 786.2 COUGH 10/26/2015 NATY MONTIEL MD Ot 244.8 ACQUIRED HYPOTHYROID NEC 10/26/2015 NATY MONTIEL MD Ot 272.4 HYPERLIPIDEMIA NEC/NOS 10/26/2015 NATY MONTIEL MD Ot 401.1 BENIGN HYPERTENSION 10/26/2015 NATY MONTIEL MD Ot 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 CARDIOMEGALY 10/26/2015 NATY MONTIEL MD Ot 786.9 RESP SYS/CHEST SYMP NEC 10/26/2015 NATY MONTIEL MD Ot 427.31 ATRIAL FIBRILLATION 10/26/2015 KATHYA SMITH INSURANCE SALES ASSISTANT Ot 496 CHR AIRWAY OBSTRUCT NEC 10/26/2015 KATHYA SMITH INSURANCE SALES ASSISTANT Ot 721.3 LUMBOSACRAL SPONDYLOSIS 10/26/2015 KATHYA SMITH INSURANCE SALES ASSISTANT Ot 733.90 BONE CARTILAGE DIS NOS 10/26/2015 KATHYA SMITH INSURANCE SALES ASSISTANT Ot 737.30 IDIOPATHIC SCOLIOSIS 10/26/2015 KATHYA SMITH INSURANCE SALES ASSISTANT Ot 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, OROPHARYNGEAL PHASE 10/26/2015 JAMEE VEE MD Ot V58.61 ANTICOAGULANTS,LT,CURRENT USE 10/26/2015 JAMEE VEE MD Ot V58.83 ENCOUNTER FOR THERAPEUTIC DRUG MONITORIN 10/26/2015 JAMEE VEE MD Ot V58.61 ANTICOAGULANTS,LT,CURRENT USE 10/26/2015 JAMEE VEE MD Ot V58.83 ENCOUNTER FOR THERAPEUTIC DRUG MONITORIN 10/26/2015 JAMEE VEE MD Ot V58.61 ANTICOAGULANTS,LT,CURRENT USE 10/26/2015 JAMEE VEE MD Ot V58.83 ENCOUNTER FOR THERAPEUTIC DRUG MONITORIN 10/26/2015 JAMEE VEE MD Ot V58.61 ANTICOAGULANTS,LT,CURRENT USE 10/26/2015 JAMEE VEE MD Ot V58.83 ENCOUNTER FOR THERAPEUTIC DRUG MONITORIN 10/26/2015 JAMEE VEE MD Ot 530.6 ACQ ESOPHAG DIVERTICULUM 10/26/2015 JAMEE VEE MD Ot 786.2 COUGH 10/26/2015 JAMEE VEE MD Ot 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, OROPHARYNGEAL PHASE 10/26/2015 JAMEE VEE MD Ot V58.61 ANTICOAGULANTS,LT,CURRENT USE 10/26/2015 JAMEE VEE MD Ot V58.83 ENCOUNTER FOR THERAPEUTIC DRUG MONITORIN 10/26/2015 JAMEE VEE MD Ot R19.7 DIARRHEA, UNSPECIFIED 10/26/2015 KAYE VENCES MD Ot E87.70 FLUID OVERLOAD, UNSPECIFIED 10/26/2015 KAYE VENCES MD Ot R60.9 EDEMA, UNSPECIFIED 10/26/2015 JAMEE VEE MD Ot I50.9 HEART FAILURE, UNSPECIFIED 10/26/2015 HEATH BOLDEN Ot I10 ESSENTIAL (PRIMARY) HYPERTENSION 10/26/2015 HEATH BOLDEN Ot 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 10/26/2015 HEATH BOLDEN Ot I35.1 NONRHEUMATIC AORTIC (VALVE) INSUFFICIENC 10/26/2015 HEATH BOLDEN Ot I48.91 UNSPECIFIED ATRIAL FIBRILLATION 10/26/2015 HEATH BOLDEN Ot R09.89 OTH SYMPTOMS AND SIGNS INVOLVING THE CIR 10/26/2015 HEATH BOLDEN Ot I10 ESSENTIAL (PRIMARY) HYPERTENSION 10/26/2015 HEATH BOLDEN Ot 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81 ENCOUNTER FOR THERAPEUTIC DRUG LEVEL MON 10/26/2015 JAMEE VEE MD, Ot Z79.01 PRISON (CURRENT) USE OF ANTICOAGULANT 10/26/2015 JAMEE VEE MD Ot Z51.81 ENCOUNTER FOR THERAPEUTIC DRUG LEVEL MON 10/26/2015 JAMEE VEE MD Ot Z79.01 PRISON (CURRENT) USE OF ANTICOAGULANT 10/26/2015 JAMEE VEE MD Ot Z51.81 ENCOUNTER FOR THERAPEUTIC DRUG LEVEL MON 10/26/2015 JAMEE VEE MD, Ot Z79.01 PRISON (CURRENT) USE OF ANTICOAGULANT 10/26/2015 JAMEE VEE MD Ot D64.9 ANEMIA, UNSPECIFIED 10/26/2015 JAMEE VEE MD Ot I50.9 HEART FAILURE, UNSPECIFIED 10/26/2015 JAMEE VEE MD Ot N39.0 URINARY TRACT INFECTION, SITE NOT SPECIF 10/26/2015 JAMEE VEE MD Ot D64.9 ANEMIA, UNSPECIFIED 10/26/2015 JAMEE VEE MD Ot I50.9 HEART FAILURE, UNSPECIFIED 10/26/2015 JAMEE VEE MD Ot N39.0 URINARY TRACT INFECTION, SITE NOT SPECIF 10/26/2015 KATHYA SMITH Ot D64.9 ANEMIA, UNSPECIFIED 10/26/2015 JAMEE VEE MD Ot D50.0 IRON DEFICIENCY ANEMIA SECONDARY TO BLOO 10/26/2015 HEATH BOLDEN Ot I10 ESSENTIAL (PRIMARY) HYPERTENSION 10/26/2015 HEATH BOLDEN Ot I25.10 ATHSCL HEART DISEASE OF [place] CORONARY 10/26/2015 HEATH BOLDEN Ot I35.1 NONRHEUMATIC AORTIC (VALVE) INSUFFICIENC 10/26/2015 HEATH BOLDEN Ot I48.2 CHRONIC ATRIAL FIBRILLATION 10/26/2015 JAMEE VEE MD Ot D64.9 ANEMIA, UNSPECIFIED 10/26/2015 KAYE VENCES MD Ot Z51.81 ENCOUNTER FOR THERAPEUTIC DRUG LEVEL MON 10/26/2015 KAYE VENCES MD Ot Z79.01 PRISON (CURRENT) USE OF ANTICOAGULANT 10/26/2015 KAYE VENCES MD Ot Z51.81 ENCOUNTER FOR THERAPEUTIC DRUG LEVEL MON 10/26/2015 KAYE VENCES MD Ot 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 10/26/2015 KAYE VENCES MD Ot Z51.81 ENCOUNTER FOR THERAPEUTIC DRUG LEVEL MON 10/26/2015 KAYE VENCES MD Ot Z79.01 PRISON (CURRENT) USE OF ANTICOAGULANT 10/26/2015 IRAM LANDEROS MD Ot Z51.81 ENCOUNTER FOR THERAPEUTIC DRUG LEVEL MON 10/26/2015 IRAM LANDEROS MD Ot Z79.01 PRISON (CURRENT) USE OF ANTICOAGULANT 10/26/2015 KAYE VENCES MD Ot Z51.81 ENCOUNTER FOR THERAPEUTIC DRUG LEVEL MON 10/26/2015 KAYE VENCES MD Ot 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 10/26/2015 KAYE VENCES MD Ot Z51.81 ENCOUNTER FOR THERAPEUTIC DRUG LEVEL MON 10/26/2015 KAYE VENCES MD Ot Z79.01 PRISON (CURRENT) USE OF ANTICOAGULANT 10/26/2015 JAMEE VEE MD Ot N39.0 URINARY TRACT INFECTION, SITE NOT SPECIF 10/26/2015 JAMEE VEE MD Ot Z51.81 ENCOUNTER FOR THERAPEUTIC DRUG LEVEL Mon10/26/2015 JAMEE VEE MD Ot Z79.01 PRISON (CURRENT) USE OF ANTICOAGULANT 10/26/2015 JAMEE VEE MD Ot I50.9 HEART FAILURE, UNSPECIFIED 11/06/2015 KAYE VENCES MD Ot Z51.81 ENCOUNTER FOR THERAPEUTIC DRUG LEVEL MON 11/06/2015 KAYE VENCES MD Ot 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 11/06/2015 JAMEE VEE MD Ot Z51.81 ENCOUNTER FOR THERAPEUTIC DRUG LEVEL MON 11/06/2015 JAMEE VEE MD Ot Z79.01 PRISON (CURRENT) USE OF ANTICOAGULANT 11/11/2015 JAMEE VEE MD A Ot I50.9 HEART FAILURE, UNSPECIFIED 11/13/2015 Ot 719.46 JOINT PAIN-L /LEG 11/13/2015 Ot 786.2 COUGH 11/13/2015 Ot V15.51 PERSONAL HISTORY OF TRAUMATIC FRACTURE 11/13/2015 Ot 786.2 COUGH 11/13/2015 Ot 486 PNEUMONIA, ORGANISM NOS 11/13/2015 Ot 786.05 SHORTNESS OF BREATH 11/13/2015 Ot 401.1 BENIGN HYPERTENSION 11/13/2015 Ot 428.0 CONGESTIVE HEART FAILURE NOS 11/13/2015 Ot 427.31 ATRIAL FIBRILLATION 11/13/2015 Ot 782.3 EDEMA 11/13/2015 Ot 719.40 JOINT PAIN- UNSPEC 11/13/2015 Ot 782.3 EDEMA 11/13/2015 Ot 401.1 BENIGN HYPERTENSION 11/13/2015 Ot 427.31 ATRIAL FIBRILLATION 11/13/2015 Ot V58.69 OTH MED,LT, CURRENT USE 11/13/2015 NATY MONTIEL MD Ot 244.8 ACQUIRED HYPOTHYROID NEC 11/13/2015 NATY MONTIEL MD Ot 272.4 HYPERLIPIDEMIA NEC/NOS 11/13/2015 NATY MONTIEL MD Ot 401.1 BENIGN HYPERTENSION 11/13/2015 NATY MONTIEL MD Ot 451.11 PHLEBITIS THROMBOPHLEBITIS,FEMORAL VEIN( 11/13/2015 NATY MONTIEL MD Ot 401.1 BENIGN HYPERTENSION 11/13/2015 NATY MONTIEL MD Ot 428.0 CONGESTIVE HEART FAILURE NOS 11/13/2015 NATY MONTIEL MD Ot 429.3 CARDIOMEGALY 11/13/2015 NATY MONTIEL MD Ot 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 THORACIC SPONDYLOSIS 11/13/2015 NATY MONTIEL MD Ot 786.05 SHORTNESS OF BREATH 11/13/2015 NATY MONTIEL MD Ot 786.2 COUGH 11/13/2015 NATY MONTIEL MD Ot 244.8 ACQUIRED HYPOTHYROID NEC 11/13/2015 NATY MONTIEL MD Ot 272.4 HYPERLIPIDEMIA NEC/NOS 11/13/2015 NATY MONTIEL MD Ot 401.1 BENIGN HYPERTENSION 11/13/2015 NATY MONTIEL MD Ot 429.3 CARDIOMEGALY 11/13/2015 NATY MONTIEL MD Ot 786.9 RESP SYS/CHEST SYMP NEC 11/13/2015 NATY MONTIEL MD Ot 427.31 ATRIAL FIBRILLATION 11/13/2015 KATHYA SMITH INSURANCE SALES ASSISTANT Ot 496 CHR AIRWAY OBSTRUCT NEC 11/13/2015 KATHYA SMITH INSURANCE SALES ASSISTANT Ot 721.3 LUMBOSACRAL SPONDYLOSIS 11/13/2015 KATHYA SMITH INSURANCE SALES ASSISTANT Ot 733.90 BONE CARTILAGE DIS NOS 11/13/2015 KATHYA SMITH INSURANCE SALES ASSISTANT Ot 737.30 IDIOPATHIC SCOLIOSIS 11/13/2015 KATHYA SMITH INSURANCE SALES ASSISTANT Ot 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, OROPHARYNGEAL PHASE 11/13/2015 JAMEE VEE MD Ot V58.61 ANTICOAGULANTS,LT,CURRENT USE 11/13/2015 JAMEE VEE MD Ot V58.83 ENCOUNTER FOR THERAPEUTIC DRUG MONITORIN 11/13/2015 JAMEE VEE MD Ot V58.61 ANTICOAGULANTS,LT,CURRENT USE 11/13/2015 JAMEE VEE MD Ot V58.83 ENCOUNTER FOR THERAPEUTIC DRUG MONITORIN 11/13/2015 JAMEE VEE MD Ot V58.61 ANTICOAGULANTS,LT,CURRENT USE 11/13/2015 JAMEE VEE MD Ot V58.83 ENCOUNTER FOR THERAPEUTIC DRUG MONITORIN 11/13/2015 JAMEE VEE MD Ot V58.61 ANTICOAGULANTS,LT,CURRENT USE 11/13/2015 JAMEE VEE MD Ot V58.83 ENCOUNTER FOR THERAPEUTIC DRUG MONITORIN 11/13/2015 JAMEE VEE MD Ot 530.6 ACQ ESOPHAG DIVERTICULUM 11/13/2015 JAMEE VEE MD Ot 786.2 COUGH 11/13/2015 JAMEE VEE MD Ot 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, OROPHARYNGEAL PHASE 11/13/2015 JAMEE VEE MD Ot V58.61 ANTICOAGULANTS,LT,CURRENT USE 11/13/2015 JAMEE VEE MD Ot V58.83 ENCOUNTER FOR THERAPEUTIC DRUG MONITORIN 11/13/2015 JAMEE VEE MD Ot R19.7 DIARRHEA, UNSPECIFIED 11/13/2015 VANGIE BORJAS, KAYE Bright Ot E87.70 FLUID OVERLOAD, UNSPECIFIED 11/13/2015 KAYE VENCES MD Ot R60.9 EDEMA, UNSPECIFIED 11/13/2015 JAMEE VEE MD Ot I50.9 HEART FAILURE, UNSPECIFIED 11/13/2015 HEIKE GONZALEZ HEATH K Ot I10 ESSENTIAL (PRIMARY) HYPERTENSION 11/13/2015 HEIKE GONZALEZ HEATH K Ot 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 11/13/2015 HEIKE GONZALEZ HEATH K Ot I35.1 NONRHEUMATIC AORTIC (VALVE) INSUFFICIENC 11/13/2015 HEIKE GONZALEZ HEATH K Ot I48.91 UNSPECIFIED ATRIAL FIBRILLATION 11/13/2015 HEIKE GONZALEZ HEATH K Ot R09.89 OTH SYMPTOMS AND SIGNS INVOLVING THE CIR 11/13/2015 HEATH BOLDEN K Ot I10 ESSENTIAL (PRIMARY) HYPERTENSION 11/13/2015 HEATH BOLDEN K Ot 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 11/13/2015 HEATH BOLDEN K Ot I35.1 NONRHEUMATIC AORTIC (VALVE) INSUFFICIENC 11/13/2015 HEATH BOLDEN K Ot I48.91 UNSPECIFIED ATRIAL FIBRILLATION 11/13/2015 JAMEE VEE MD Ot R82.99 OTHER ABNORMAL FINDINGS IN URINE 11/13/2015 JAMEE VEE MD Ot Z51.81 ENCOUNTER FOR THERAPEUTIC DRUG LEVEL MON 11/13/2015 JAMEE VEE MD Ot Z79.01 PRISON (CURRENT) USE OF ANTICOAGULANT 11/13/2015 Ot R82.99 OTHER ABNORMAL FINDINGS IN URINE 11/13/2015 JAMEE VEE MD Ot Z51.81 ENCOUNTER FOR THERAPEUTIC DRUG LEVEL MON 11/13/2015 JAMEE VEE MD Ot Z79.01 PRISON (CURRENT) USE OF ANTICOAGULANT 11/13/2015 JAMEE VEE MD Ot Z51.81 ENCOUNTER FOR THERAPEUTIC DRUG LEVEL Mon11/13/2015 JAMEE VEE MD Ot Z79.01 PRISON (CURRENT) USE OF ANTICOAGULANT 11/13/2015 JAMEE VEE MD Ot Z51.81 ENCOUNTER FOR THERAPEUTIC DRUG LEVEL MON 11/13/2015 JAMEE VEE MD Ot Z79.01 PRISON (CURRENT) USE OF ANTICOAGULANT 11/13/2015 JAMEE VEE MD Ot Z51.81 ENCOUNTER FOR THERAPEUTIC DRUG LEVEL MON 11/13/2015 JAMEE VEE MD Ot 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 11/13/2015 JAMEE VEE MD Ot D64.9 ANEMIA, UNSPECIFIED 11/13/2015 JAMEE VEE MD Ot I50.9 HEART FAILURE, UNSPECIFIED 11/13/2015 MARIUSZ BORJAS, JAMEE Kennedy Ot N39.0 URINARY TRACT INFECTION, SITE NOT SPECIF 11/13/2015 JAMEE VEE MD Ot D64.9 ANEMIA, UNSPECIFIED 11/13/2015 JAMEE VEE MD Ot I50.9 HEART FAILURE, UNSPECIFIED 11/13/2015 MARIUSZ BORJAS, JAMEE Kennedy Ot N39.0 URINARY TRACT INFECTION, SITE NOT SPECIF 11/13/2015 KATHYA SMITH Ot D64.9 ANEMIA, UNSPECIFIED 11/13/2015 JAMEE VEE MD Ot D50.0 IRON DEFICIENCY ANEMIA SECONDARY TO BLOO 11/13/2015 HEATH BOLDEN Ot I10 ESSENTIAL (PRIMARY) HYPERTENSION 11/13/2015 HEATH BOLDEN Ot I25.10 ATHSCL HEART DISEASE OF [place] CORONARY 11/13/2015 HEATH BOLDEN Ot I35.1 NONRHEUMATIC AORTIC (VALVE) INSUFFICIENC 11/13/2015 HEATH BOLDEN Ot I48.2 CHRONIC ATRIAL FIBRILLATION 11/13/2015 JAMEE VEE MD Ot D64.9 ANEMIA, UNSPECIFIED 11/13/2015 KAYE VENCES MD Ot Z51.81 ENCOUNTER FOR THERAPEUTIC DRUG LEVEL MON 11/13/2015 KAYE VENCES MD Ot Z79.01 PRISON (CURRENT) USE OF ANTICOAGULANT 11/13/2015 KAYE VENCES MD Ot Z51.81 ENCOUNTER FOR THERAPEUTIC DRUG LEVEL MON 11/13/2015 KAYE VENCES MD, Ot 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 11/13/2015 KAYE VENCES MD Ot Z51.81 ENCOUNTER FOR THERAPEUTIC DRUG LEVEL MON 11/13/2015 KAYE VENCES MD Ot 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 11/13/2015 IRAM LANDEROS MD Ot Z51.81 ENCOUNTER FOR THERAPEUTIC DRUG LEVEL MON 11/13/2015 IRAM LANDEROS MD Ot 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 11/13/2015 KAYE VENCES MD Ot Z51.81 ENCOUNTER FOR THERAPEUTIC DRUG LEVEL MON 11/13/2015 KAYE VENCES MD Ot Z79.01 PRISON (CURRENT) USE OF ANTICOAGULANT 11/13/2015 KAYE VENCES MD Ot Z51.81 ENCOUNTER FOR THERAPEUTIC DRUG LEVEL MON 11/13/2015 KAYE VENCES MD Ot 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 11/13/2015 JAMEE VEE MD Ot N39.0 URINARY TRACT INFECTION, SITE NOT SPECIF 11/13/2015 JAMEE VEE MD Ot Z51.81 ENCOUNTER FOR THERAPEUTIC DRUG LEVEL MON 11/13/2015 JAMEE VEE MD Ot Z79.01 PRISON (CURRENT) USE OF ANTICOAGULANT 11/13/2015 JAMEE VEE MD Ot I50.9 HEART FAILURE, UNSPECIFIED 11/13/2015 KAYE VENCES MD Ot Z79.01 PRISON (CURRENT) USE OF ANTICOAGULANT 11/13/2015 JAMEE VEE MD Ot I50.9 HEART FAILURE, UNSPECIFIED 11/13/2015 JAMEE VEE MD Ot I50.9 HEART FAILURE, UNSPECIFIED 11/16/2015 KAYE VENCES MD Ot Z51.81 ENCOUNTER FOR THERAPEUTIC DRUG LEVEL MON 11/16/2015 KAYE VENCES MD Ot Z79.01 PRISON (CURRENT) USE OF ANTICOAGULANT 11/16/2015 JAMEE VEE MD Ot I50.9 HEART FAILURE, UNSPECIFIED 11/19/2015 JAMEE VEE MD Ot I50.9 HEART FAILURE, UNSPECIFIED 11/19/2015 KAYE VENCES MD Ot Z51.81 ENCOUNTER FOR THERAPEUTIC DRUG LEVEL MON 11/19/2015 KAYE VENCES MD Ot Z79.01 PRISON (CURRENT) USE OF ANTICOAGULANT 11/19/2015 JAMEE VEE MD A Ot I50.9 HEART FAILURE, UNSPECIFIED 11/21/2015 JAMEE VEE MD A Ot I50.9 HEART FAILURE, UNSPECIFIED 11/23/2015 JAMEE VEE MD Ot I50.9 HEART FAILURE, UNSPECIFIED 11/28/2015 JAMEE VEE MD Ot I50.9 HEART FAILURE, UNSPECIFIED 12/02/2015 JAMEE VEE MD Ot E87.6 HYPOKALEMIA 12/02/2015 JAMEE VEE MD Ot I50.9 HEART FAILURE, UNSPECIFIED 12/02/2015 JAMEE VEE MD A Ot I50.9 HEART FAILURE, UNSPECIFIED 12/03/2015 JAMEE VEE MD Ot E87.6 HYPOKALEMIA 12/03/2015 JAMEE VEE MD A Ot I50.9 HEART FAILURE, UNSPECIFIED 12/04/2015 JAMEE VEE MD Ot I50.9 HEART FAILURE, UNSPECIFIED 12/08/2015 KAYE VENCES MD Ot Z79.01 PRISON (CURRENT) USE OF ANTICOAGULANT 12/09/2015 JAMEE VEE MD Ot I50.9 HEART FAILURE, UNSPECIFIED 12/09/2015 KAYE VENCES MD Ot Z51.81 ENCOUNTER FOR THERAPEUTIC DRUG LEVEL MON 12/09/2015 KAYE VENCES MD Ot Z79.01 PRISON (CURRENT) USE OF ANTICOAGULANT 12/09/2015 JAMEE VEE MD Ot I50.9 HEART FAILURE, UNSPECIFIED 12/09/2015 KAYE VENCES MD Ot Z51.81 ENCOUNTER FOR THERAPEUTIC DRUG LEVEL MON 12/09/2015 KAYE VENCES MD Ot Z79.01 PRISON (CURRENT) USE OF ANTICOAGULANT 12/23/2015 JAMEE VEE MD Ot I50.9 HEART FAILURE, UNSPECIFIED 12/23/2015 JAMEE VEE MD Ot E87.6 HYPOKALEMIA 12/23/2015 JAMEE VEE MD Ot I50.9 HEART FAILURE, UNSPECIFIED 12/29/2015 KAYE VENCES MD Ot Z51.81 ENCOUNTER FOR THERAPEUTIC DRUG LEVEL MON 12/29/2015 KAYE VENCES MD Ot 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 12/29/2015 JAMEE VEE MD Ot I11.0 HYPERTENSIVE HEART DISEASE WITH HEART FA 12/29/2015 JAMEE VEE MD Ot I50.9 HEART FAILURE, UNSPECIFIED 01/04/2016 JAMEE VEE MD Ot E87.6 HYPOKALEMIA 01/04/2016 JAMEE VEE MD Ot Z51.81 ENCOUNTER FOR THERAPEUTIC DRUG LEVEL MON 01/04/2016 JAMEE VEE MD Ot Z79.01 PRISON (CURRENT) USE OF ANTICOAGULANT 01/10/2016 JAMEE VEE MD Ot Z51.81 ENCOUNTER FOR THERAPEUTIC DRUG LEVEL MON 01/10/2016 JAMEE VEE MD Ot Z79.01 PRISON (CURRENT) USE OF ANTICOAGULANT 01/19/2016 JAMEE VEE MD Ot I11.0 HYPERTENSIVE HEART DISEASE WITH HEART FA 01/19/2016 JAMEE VEE MD Ot I50.9 HEART FAILURE, UNSPECIFIED 01/26/2016 JAMEE VEE MD Ot E87.6 HYPOKALEMIA 01/26/2016 JAMEE VEE MD Ot Z51.81 ENCOUNTER FOR THERAPEUTIC DRUG LEVEL MON 01/26/2016 JAMEE VEE MD Ot Z79.01 PRISON (CURRENT) USE OF ANTICOAGULANT 02/01/2016 Ot 719.46 JOINT PAIN-L /LEG 02/01/2016 Ot 786.2 COUGH 02/01/2016 Ot V15.51 PERSONAL HISTORY OF TRAUMATIC FRACTURE 02/01/2016 Ot 786.2 COUGH 02/01/2016 Ot 486 PNEUMONIA, ORGANISM NOS 02/01/2016 Ot 786.05 SHORTNESS OF BREATH 02/01/2016 Ot 401.1 BENIGN HYPERTENSION 02/01/2016 Ot 428.0 CONGESTIVE HEART FAILURE NOS 02/01/2016 Ot 427.31 ATRIAL FIBRILLATION 02/01/2016 Ot 782.3 EDEMA 02/01/2016 Ot 719.40 JOINT PAIN- UNSPEC 02/01/2016 Ot 782.3 EDEMA 02/01/2016 Ot 401.1 BENIGN HYPERTENSION 02/01/2016 Ot 427.31 ATRIAL FIBRILLATION 02/01/2016 Ot V58.69 OTH MED,LT, CURRENT USE 02/01/2016 NATY MONTIEL MD Ot 244.8 ACQUIRED HYPOTHYROID NEC 02/01/2016 NATY MONTIEL MD Ot 272.4 HYPERLIPIDEMIA NEC/NOS 02/01/2016 NATY MONTIEL MD Ot 401.1 BENIGN HYPERTENSION 02/01/2016 NATY MONTIEL MD Ot 451.11 PHLEBITIS THROMBOPHLEBITIS,FEMORAL VEIN( 02/01/2016 NATY MONTIEL MD Ot 401.1 BENIGN HYPERTENSION 02/01/2016 NATY MONTIEL MD Ot 428.0 CONGESTIVE HEART FAILURE NOS 02/01/2016 NATY MONTIEL MD Ot 429.3 CARDIOMEGALY 02/01/2016 NATY MONTIEL MD Ot 721.2 THORACIC SPONDYLOSIS 02/01/2016 NATY MONTIEL MD Ot 786.05 SHORTNESS OF BREATH 02/01/2016 NATY MONTIEL MD Ot 786.2 COUGH 02/01/2016 NATY MONTIEL MD Ot 244.8 ACQUIRED HYPOTHYROID NEC 02/01/2016 NATY MONTIEL MD Ot 272.4 HYPERLIPIDEMIA NEC/NOS 02/01/2016 NATY MONTIEL MD Ot 401.1 BENIGN HYPERTENSION 02/01/2016 NATY MONTIEL MD Ot 429.3 CARDIOMEGALY 02/01/2016 NATY MONTIEL MD Ot 786.9 RESP SYS/CHEST SYMP NEC 02/01/2016 NATY MONTIEL MD Ot 427.31 ATRIAL FIBRILLATION 02/01/2016 KATHYA SMITH INSURANCE SALES ASSISTANT Ot 496 CHR AIRWAY OBSTRUCT NEC 02/01/2016 KATHYA SMITH INSURANCE SALES ASSISTANT Ot 721.3 LUMBOSACRAL SPONDYLOSIS 02/01/2016 KATHYA SMITH INSURANCE SALES ASSISTANT Ot 733.90 BONE CARTILAGE DIS NOS 02/01/2016 KATHYA SMITH INSURANCE SALES ASSISTANT Ot 737.30 IDIOPATHIC SCOLIOSIS 02/01/2016 KATHYA SMITH INSURANCE SALES ASSISTANT Ot 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, OROPHARYNGEAL PHASE 02/01/2016 JAMEE VEE MD Ot V58.61 ANTICOAGULANTS,LT,CURRENT USE 02/01/2016 JAMEE VEE MD Ot V58.83 ENCOUNTER FOR THERAPEUTIC DRUG MONITORIN 02/01/2016 JAMEE VEE MD Ot V58.61 ANTICOAGULANTS,LT,CURRENT USE 02/01/2016 JAMEE VEE MD Ot V58.83 ENCOUNTER FOR THERAPEUTIC DRUG MONITORIN 02/01/2016 JAMEE VEE MD Ot V58.61 ANTICOAGULANTS,LT,CURRENT USE 02/01/2016 JAMEE VEE MD Ot V58.83 ENCOUNTER FOR THERAPEUTIC DRUG MONITORIN 02/01/2016 JAMEE VEE MD Ot V58.61 ANTICOAGULANTS,LT,CURRENT USE 02/01/2016 JAMEE VEE MD Ot V58.83 ENCOUNTER FOR THERAPEUTIC DRUG MONITORIN 02/01/2016 JAMEE VEE MD Ot 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.6 ACQ ESOPHAG DIVERTICULUM 02/01/2016 JAMEE VEE MD Ot 786.2 COUGH 02/01/2016 JAMEE VEE MD Ot 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, OROPHARYNGEAL PHASE 02/01/2016 JAMEE VEE MD Ot V58.61 ANTICOAGULANTS,LT,CURRENT USE 02/01/2016 JAMEE VEE MD Ot V58.83 ENCOUNTER FOR THERAPEUTIC DRUG MONITORIN 02/01/2016 JAMEE VEE MD Ot R19.7 DIARRHEA, UNSPECIFIED 02/01/2016 VANGIE BORJAS, KAYE Bright Ot E87.70 FLUID OVERLOAD, UNSPECIFIED 02/01/2016 VANGIE BORJAS, KAYE Bright Ot R60.9 EDEMA, UNSPECIFIED 02/01/2016 JAMEE VEE MD Ot I50.9 HEART FAILURE, UNSPECIFIED 02/01/2016 HEATH BOLDEN Ot I10 ESSENTIAL (PRIMARY) HYPERTENSION 02/01/2016 HEATH BOLDEN Ot 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 02/01/2016 HEATH BOLDEN Ot I35.1 NONRHEUMATIC AORTIC (VALVE) INSUFFICIENC 02/01/2016 HEATH BOLDEN Ot I48.91 UNSPECIFIED ATRIAL FIBRILLATION 02/01/2016 HEATH BOLDEN Ot R09.89 OTH SYMPTOMS AND SIGNS INVOLVING THE CIR 02/01/2016 HEATH BOLDEN Ot I10 ESSENTIAL (PRIMARY) HYPERTENSION 02/01/2016 HEATH BOLDEN Ot 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81 ENCOUNTER FOR THERAPEUTIC DRUG LEVEL MON 02/01/2016 JAMEE VEE MD, Ot 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 02/01/2016 JAMEE VEE MD Ot Z51.81 ENCOUNTER FOR THERAPEUTIC DRUG LEVEL MON 02/01/2016 JAMEE VEE MD, Ot 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 02/01/2016 JAMEE VEE MD Ot Z51.81 ENCOUNTER FOR THERAPEUTIC DRUG LEVEL MON 02/01/2016 JAMEE VEE MD, Ot Z79.01 PRISON (CURRENT) USE OF ANTICOAGULANT 02/01/2016 JAMEE VEE MD Ot D64.9 ANEMIA, UNSPECIFIED 02/01/2016 JAMEE VEE MD Ot I50.9 HEART FAILURE, UNSPECIFIED 02/01/2016 JAMEE VEE MD Ot N39.0 URINARY TRACT INFECTION, SITE NOT SPECIF 02/01/2016 JAMEE VEE MD Ot D64.9 ANEMIA, UNSPECIFIED 02/01/2016 JAMEE VEE MD Ot I50.9 HEART FAILURE, UNSPECIFIED 02/01/2016 JAMEE VEE MD Ot N39.0 URINARY TRACT INFECTION, SITE NOT SPECIF 02/01/2016 KATHYA SMITH Ot D64.9 ANEMIA, UNSPECIFIED 02/01/2016 JAMEE VEE MD Ot D50.0 IRON DEFICIENCY ANEMIA SECONDARY TO BLOO 02/01/2016 HEATH BOLDEN Ot I10 ESSENTIAL (PRIMARY) HYPERTENSION 02/01/2016 HEATH BOLDEN Ot I25.10 ATHSCL HEART DISEASE OF [place] CORONARY 02/01/2016 HEATH BOLDEN Ot I35.1 NONRHEUMATIC AORTIC (VALVE) INSUFFICIENC 02/01/2016 HEATH BOLDEN Ot I48.2 CHRONIC ATRIAL FIBRILLATION 02/01/2016 MARIUSZ MD, JAMEE A Ot D64.9 ANEMIA, UNSPECIFIED 02/01/2016 KAYE VENCES MD Ot Z51.81 ENCOUNTER FOR THERAPEUTIC DRUG LEVEL MON 02/01/2016 KAYE VENCES MD Ot 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 02/01/2016 KAYE VENCES MD Ot Z51.81 ENCOUNTER FOR THERAPEUTIC DRUG LEVEL MON 02/01/2016 KAYE VENCES MD Ot Z79.01 PRISON (CURRENT) USE OF ANTICOAGULANT 02/01/2016 KAYE VENCES MD Ot Z51.81 ENCOUNTER FOR THERAPEUTIC DRUG LEVEL MON 02/01/2016 KAYE VENCES MD Ot 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 02/01/2016 IRAM LANDEROS MD Ot Z51.81 ENCOUNTER FOR THERAPEUTIC DRUG LEVEL MON 02/01/2016 IRAM LANDEROS MD Ot Z79.01 PRISON (CURRENT) USE OF ANTICOAGULANT 02/01/2016 KAYE VENCES MD Ot Z51.81 ENCOUNTER FOR THERAPEUTIC DRUG LEVEL MON 02/01/2016 KAYE VENCES MD Ot Z79.01 PRISON (CURRENT) USE OF ANTICOAGULANT 02/01/2016 KAYE VENCES MD Ot Z51.81 ENCOUNTER FOR THERAPEUTIC DRUG LEVEL MON 02/01/2016 KAYE VENCES MD Ot Z79.01 PRISON (CURRENT) USE OF ANTICOAGULANT 02/01/2016 JAMEE VEE MD Ot N39.0 URINARY TRACT INFECTION, SITE NOT SPECIF 02/01/2016 JAMEE VEE MD Ot Z51.81 ENCOUNTER FOR THERAPEUTIC DRUG LEVEL MON 02/01/2016 JAMEE VEE MD Ot Z79.01 PRISON (CURRENT) USE OF ANTICOAGULANT 02/01/2016 JAMEE VEE MD Ot I50.9 HEART FAILURE, UNSPECIFIED 02/01/2016 JAMEE VEE MD Ot I50.9 HEART FAILURE, UNSPECIFIED 02/01/2016 JAMEE VEE MD Ot I50.9 HEART FAILURE, UNSPECIFIED 02/01/2016 KAYE VENCES MD Ot Z51.81 ENCOUNTER FOR THERAPEUTIC DRUG LEVEL MON 02/01/2016 KAYE VENCES MD Ot 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 02/01/2016 JAMEE VEE MD Ot I50.9 HEART FAILURE, UNSPECIFIED 02/01/2016 JAMEE VEE MD Ot I50.9 HEART FAILURE, UNSPECIFIED 02/01/2016 JAMEE VEE MD Ot E87.6 HYPOKALEMIA 02/01/2016 JAMEE VEE MD Ot I50.9 HEART FAILURE, UNSPECIFIED 02/01/2016 KAYE VENCES MD Ot Z51.81 ENCOUNTER FOR THERAPEUTIC DRUG LEVEL MON 02/01/2016 KAYE VENCES MD Ot 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 02/01/2016 JAMEE VEE MD Ot I11.0 HYPERTENSIVE HEART DISEASE WITH HEART FA 02/01/2016 JAMEE VEE MD Ot I50.9 HEART FAILURE, UNSPECIFIED 02/01/2016 JAMEE VEE MD Ot E87.6 HYPOKALEMIA 02/01/2016 JAMEE VEE MD Ot Z51.81 ENCOUNTER FOR THERAPEUTIC DRUG LEVEL MON 02/01/2016 JAMEE VEE MD Ot Z79.01 PRISON (CURRENT) USE OF ANTICOAGULANT 02/02/2016 KAYE VENCES MD Ot Z51.81 ENCOUNTER FOR THERAPEUTIC DRUG LEVEL MON 02/02/2016 KAYE VENCES MD Ot Z79.01 PRISON (CURRENT) USE OF ANTICOAGULANT 02/03/2016 JAMEE VEE MD Ot I11.0 HYPERTENSIVE HEART DISEASE WITH HEART FA 02/03/2016 JAMEE VEE MD Ot I50.9 HEART FAILURE, UNSPECIFIED 02/03/2016 HEATH BOLDEN Ot I10 ESSENTIAL (PRIMARY) HYPERTENSION 02/03/2016 HEATH BOLDEN Ot I25.10 ATHSCL HEART DISEASE OF [place] CORONARY 02/03/2016 HEATH BOLDEN Ot I35.1 NONRHEUMATIC AORTIC (VALVE) INSUFFICIENC 02/03/2016 HEATH BOLDEN Ot I48.2 CHRONIC ATRIAL FIBRILLATION 02/03/2016 HEATH BOLDEN Ot R60.9 EDEMA, UNSPECIFIED 02/19/2016 JAMEE VEE MD Ot I11.0 HYPERTENSIVE HEART DISEASE WITH HEART FA 02/19/2016 JAMEE VEE MD Ot I50.9 HEART FAILURE, UNSPECIFIED 02/19/2016 JAMEE VEE MD Ot R25.2 CRAMP AND SPASM 02/24/2016 JAMEE VEE MD Ot D64.9 ANEMIA, UNSPECIFIED 02/25/2016 JAMEE VEE MD Ot D64.9 ANEMIA, UNSPECIFIED 02/25/2016 JAMEE VEE MD Ot R25.2 CRAMP AND SPASM 02/25/2016 HEATH BOLDEN Ot I10 ESSENTIAL (PRIMARY) HYPERTENSION 02/25/2016 HEATH BOLDEN Ot I25.10 ATHSCL HEART DISEASE OF [place] CORONARY 02/25/2016 HEATH BOLDEN Ot I35.1 NONRHEUMATIC AORTIC (VALVE) INSUFFICIENC 02/25/2016 HEATH BOLDEN Ot I48.2 CHRONIC ATRIAL FIBRILLATION 02/25/2016 HEATH BOLDEN Ot R60.9 EDEMA, UNSPECIFIED 02/25/2016 KAYE VENCES MD Ot Z51.81 ENCOUNTER FOR THERAPEUTIC DRUG LEVEL [facility] 02/25/2016 KAYE VENCES MD Ot 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 02/28/2016 JAMEE VEE MD Ot D64.9 ANEMIA, UNSPECIFIED 02/28/2016 JAMEE VEE MD Ot R25.2 CRAMP AND SPASM 03/03/2016 JAMEE VEE MD Ot Z79.01 PRISON (CURRENT) USE OF ANTICOAGULANT 03/03/2016 JAMEE VEE MD Ot I50.9 HEART FAILURE, UNSPECIFIED 03/03/2016 JAMEE VEE MD Ot 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 03/08/2016 HEATH BOLDEN Ot I10 ESSENTIAL (PRIMARY) HYPERTENSION 03/08/2016 HEATH BOLDEN Ot I25.10 ATHSCL HEART DISEASE OF [place] CORONARY 03/08/2016 HEATH BOLDEN Ot I35.1 NONRHEUMATIC AORTIC (VALVE) INSUFFICIENC 03/08/2016 HEATH BOLDEN Ot I48.2 CHRONIC ATRIAL FIBRILLATION 03/08/2016 HEATH BOLDEN Ot R60.9 EDEMA, UNSPECIFIED 03/11/2016 JAMEE VEE MD Ot I11.0 HYPERTENSIVE HEART DISEASE WITH HEART FA 03/11/2016 JAMEE VEE MD Ot I50.9 HEART FAILURE, UNSPECIFIED 03/11/2016 JAMEE VEE MD Ot R25.2 CRAMP AND SPASM 03/15/2016 JAMEE VEE MD Ot I11.0 HYPERTENSIVE HEART DISEASE WITH HEART FA 03/15/2016 JAMEE VEE MD Ot I50.9 HEART FAILURE, UNSPECIFIED 03/15/2016 JAMEE VEE MD Ot I11.0 HYPERTENSIVE HEART DISEASE WITH HEART FA 03/15/2016 JAMEE VEE MD Ot I50.9 HEART FAILURE, UNSPECIFIED 03/15/2016 KAYE VENCES MD Ot Z51.81 ENCOUNTER FOR THERAPEUTIC DRUG LEVEL MON 03/15/2016 KAYE VENCES MD Ot Z79.01 PRISON (CURRENT) USE OF ANTICOAGULANT 03/18/2016 JAMEE VEE MD Ot D64.9 ANEMIA, UNSPECIFIED 03/18/2016 JAMEE VEE MD Ot R25.2 CRAMP AND SPASM 03/20/2016 KAYE VENCES MD Ot Z51.81 ENCOUNTER FOR THERAPEUTIC DRUG LEVEL MON 03/20/2016 KAYE VENCES MD Ot 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 03/23/2016 JAMEE VEE MD Ot I50.9 HEART FAILURE, UNSPECIFIED 03/23/2016 JAMEE VEE MD Ot 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 04/05/2016 JAMEE VEE MD Ot I11.0 HYPERTENSIVE HEART DISEASE WITH HEART FA 04/05/2016 JAMEE VEE MD Ot I50.9 HEART FAILURE, UNSPECIFIED 04/05/2016 KAYE VENCES MD Ot Z51.81 ENCOUNTER FOR THERAPEUTIC DRUG LEVEL MON 04/05/2016 KAYE VENCES MD Ot Z79.01 PRISON (CURRENT) USE OF ANTICOAGULANT 04/28/2016 JAMEE VEE MD Ot 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 05/02/2016 JAMEE VEE MD Ot I11.0 HYPERTENSIVE HEART DISEASE WITH HEART FA 05/02/2016 MARIUSZ MD, JAMEE A Ot I48.91 UNSPECIFIED ATRIAL FIBRILLATION 05/02/2016 JAMEE VEE MD Ot I50.9 HEART FAILURE, UNSPECIFIED 05/18/2016 JAMEE VEE MD Ot D50.9 IRON DEFICIENCY ANEMIA, UNSPECIFIED 05/18/2016 JAMEE VEE MD Ot I48.91 UNSPECIFIED ATRIAL FIBRILLATION 05/18/2016 JAMEE VEE MD Ot I50.9 HEART FAILURE, UNSPECIFIED 05/23/2016 JAMEE VEE MD Ot 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 05/24/2016 JAMEE VEE MD Ot Z51.81 ENCOUNTER FOR THERAPEUTIC DRUG LEVEL MON 05/24/2016 JAMEE VEE MD Ot 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 06/08/2016 JAMEE VEE MD Ot D50.9 IRON DEFICIENCY ANEMIA, UNSPECIFIED 06/08/2016 JAMEE VEE MD Ot I48.91 UNSPECIFIED ATRIAL FIBRILLATION 06/08/2016 JAMEE VEE MD Ot I50.9 HEART FAILURE, UNSPECIFIED 06/15/2016 KAYE VENCES MD Ot 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 06/16/2016 KAYE VNECES MD Ot Z51.81 ENCOUNTER FOR THERAPEUTIC DRUG LEVEL MON 06/16/2016 KAYE VENCES MD Ot 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 06/21/2016 JAMEE VEE MD Ot I11.0 HYPERTENSIVE HEART DISEASE WITH HEART FA 06/21/2016 JAMEE VEE MD Ot I48.91 UNSPECIFIED ATRIAL FIBRILLATION 06/21/2016 JAMEE VEE MD Ot I50.9 HEART FAILURE, UNSPECIFIED 07/04/2016 JAMEE VEE MD Ot I50.9 HEART FAILURE, UNSPECIFIED 07/04/2016 JAMEE VEE MD Ot 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 07/06/2016 KAYE VENCES MD Ot Z51.81 ENCOUNTER FOR THERAPEUTIC DRUG LEVEL MON 07/06/2016 KAYE VENCES MD Ot 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 07/17/2016 KAYE VENCES MD Ot Z51.81 ENCOUNTER FOR THERAPEUTIC DRUG LEVEL MON 07/17/2016 KAYE VENCES MD, Ot 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 08/08/2016 JAMEE VEE MD Ot Z51.81 ENCOUNTER FOR THERAPEUTIC DRUG LEVEL [facility] 08/08/2016 JAMEE VEE MD, Ot 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 08/10/2016 KAYE VENCES MD, Ot I48.91 UNSPECIFIED ATRIAL FIBRILLATION 08/10/2016 KAYE VENCES MD, Ot I50.9 HEART FAILURE, UNSPECIFIED 08/10/2016 KAYE VENCES MD, Ot Z79.01 PRISON (CURRENT) USE OF ANTICOAGULANT 09/07/2016 KAYE VENCES MD, Ot I50.9 HEART FAILURE, UNSPECIFIED 09/07/2016 KAYE VENCES MD, Ot Z79.01 PRISON (CURRENT) USE OF ANTICOAGULANT 09/13/2016 JAMEE VEE MD, Ot 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 09/14/2016 JAMEE VEE MD, Ot Z79.01 PRISON (CURRENT) USE OF ANTICOAGULANT 09/15/2016 JAMEE VEE MD, Ot I50.9 HEART FAILURE, UNSPECIFIED 09/15/2016 JAMEE VEE MD, Ot Z79.01 PRISON (CURRENT) USE OF ANTICOAGULANT 09/27/2016 KAYE VENCES MD, Ot Z79.01 PRISON (CURRENT) USE OF ANTICOAGULANT 09/30/2016 KAYE VENCES MD, Ot Z79.01 PRISON (CURRENT) USE OF ANTICOAGULANT 09/30/2016 CRESCENCIO KEEN APRN Ot R79.1 ABNORMAL COAGULATION PROFILE 09/30/2016 CRESCENCIO KEEN APRN Ot R94.6 ABNORMAL RESULTS OF THYROID FUNCTION RADHA 10/02/2016 KAYE VENCES MD, Ot 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 10/03/2016 JAMEE VEE MD Ot E87.6 HYPOKALEMIA 10/03/2016 CRESCENCIO KEEN APRN Ot R07.9 CHEST PAIN, UNSPECIFIED 10/03/2016 CRESCENCIO KEEN APRN Ot R53.81 OTHER MALAISE 10/03/2016 CRESCENCIO KEEN CORN SHUCKER Ot R53.83 OTHER FATIGUE 10/05/2016 JAMEE VEE MD, Ot I50.9 HEART FAILURE, UNSPECIFIED 10/05/2016 JAMEE VEE MD Ot 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 10/06/2016 JAMEE VEE MD Ot I10 ESSENTIAL (PRIMARY) HYPERTENSION 10/06/2016 JAMEE VEE MD Ot I50.9 HEART FAILURE, UNSPECIFIED 10/06/2016 JAMEE VEE MD Ot Z79.01 PRISON (CURRENT) USE OF ANTICOAGULANT 10/14/2016 KAYE VENCES MD Ot 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 10/17/2016 KAYE VENCES MD Ot I50.9 HEART FAILURE, UNSPECIFIED 10/17/2016 KAYE VENCES MD Ot Z79.02 DRAFTING SUPERVISOR (CURRENT) USE OF ANTITHROMBOTI 10/19/2016 KAYE VENCES MD Ot I50.9 HEART FAILURE, UNSPECIFIED 10/19/2016 KAYE VENCES MD Ot Z79.02 DRAFTING SUPERVISOR (CURRENT) USE OF ANTITHROMBOTI 10/24/2016 KAYE VENCES MD Ot Z79.01 PRISON (CURRENT) USE OF ANTICOAGULANT 10/25/2016 CRESCENCIO KEEN CORN SHUCKER Ot R07.9 CHEST PAIN, UNSPECIFIED 10/25/2016 CRESCENCIO KEEN CORN SHUCKER Ot R53.81 OTHER MALAISE 10/25/2016 CRESCENCIO KEEN CORN SHUCKER Ot R53.83 OTHER FATIGUE 10/26/2016 JAMEE VEE MD Ot E86.0 DEHYDRATION 10/26/2016 JAMEE VEE MD Ot I10 ESSENTIAL (PRIMARY) HYPERTENSION 10/26/2016 JAMEE VEE MD Ot Z79.01 PRISON (CURRENT) USE OF ANTICOAGULANT 10/26/2016 JAMEE VEE MD Ot I10 ESSENTIAL (PRIMARY) HYPERTENSION 10/26/2016 JAMEE VEE MD Ot I50.9 HEART FAILURE, UNSPECIFIED 10/26/2016 JAMEE VEE MD Ot 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 10/28/2016 KAYE VENCES MD Ot Z79.01 PRISON (CURRENT) USE OF ANTICOAGULANT 10/29/2016 KAYE VENCES MD Ot I10 ESSENTIAL (PRIMARY) HYPERTENSION 10/29/2016 KAYE VENCES MD Ot Z79.01 PRISON (CURRENT) USE OF ANTICOAGULANT 10/29/2016 KAYE VENCES MD Ot I10 ESSENTIAL (PRIMARY) HYPERTENSION 10/29/2016 KAYE VENCES MD Ot Z79.01 PRISON (CURRENT) USE OF ANTICOAGULANT 11/04/2016 KAYE VENCES MD Ot I50.9 HEART FAILURE, UNSPECIFIED 11/04/2016 KAYE VENCES MD Ot Z79.02 DRAFTING SUPERVISOR (CURRENT) USE OF ANTITHROMBOTI 11/18/2016 KAYE VENCES MD Ot I10 ESSENTIAL (PRIMARY) HYPERTENSION 11/18/2016 KAYE VENCES MD, Ot Z79.01 PRISON (CURRENT) USE OF ANTICOAGULANT 11/23/2016 KAYE VENCES MD, Ot UNK 11/27/2016 KAYE VENCES MD, Ot Z79.01 PRISON (CURRENT) USE OF ANTICOAGULANT 12/13/2016 KAYE VENCES MD Ot 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 12/16/2016 KAYE VENCES MD Ot I10 ESSENTIAL (PRIMARY) HYPERTENSION 12/16/2016 KAYE VENCES MD Ot I35.1 NONRHEUMATIC AORTIC (VALVE) INSUFFICIENC 12/16/2016 KAYE VENCES MD Ot I48.2 CHRONIC ATRIAL FIBRILLATION 12/16/2016 KAYE VENCES MD Ot R07.89 OTHER CHEST PAIN 12/21/2016 KAYE VENCES MD Ot I10 ESSENTIAL (PRIMARY) HYPERTENSION 12/21/2016 KAYE VENCES MD Ot I35.1 NONRHEUMATIC AORTIC (VALVE) INSUFFICIENC 12/21/2016 KAYE VENCES MD Ot I48.2 CHRONIC ATRIAL FIBRILLATION 12/21/2016 KAYE VENCES MD Ot R07.89 OTHER CHEST PAIN 12/26/2016 JAMEE VEE MD Ot I50.9 HEART FAILURE, UNSPECIFIED 12/27/2016 JAMEE VEE MD Ot I50.9 HEART FAILURE, UNSPECIFIED 12/27/2016 JAMEE VEE MD Ot I50.9 HEART FAILURE, UNSPECIFIED 01/06/2017 KAYE VENCES MD Ot I10 ESSENTIAL (PRIMARY) HYPERTENSION 01/06/2017 KAYE VENCES MD Ot I35.1 NONRHEUMATIC AORTIC (VALVE) INSUFFICIENC 01/06/2017 KAYE VENCES MD Ot I48.2 CHRONIC ATRIAL FIBRILLATION 01/06/2017 KAYE VENCES MD Ot R07.89 OTHER CHEST PAIN 01/11/2017 JAMEE VEE MD Ot E87.6 HYPOKALEMIA 01/11/2017 KAYE VENCES MD Ot I10 ESSENTIAL (PRIMARY) HYPERTENSION 01/11/2017 KAYE VENCES MD Ot I35.1 NONRHEUMATIC AORTIC (VALVE) INSUFFICIENC 01/11/2017 KAYE VENCES MD Ot I48.2 CHRONIC ATRIAL FIBRILLATION 01/11/2017 KAYE VENCES MD Ot R07.89 OTHER CHEST PAIN 01/11/2017 KAYE VENCES MD Ot Z79.01 PRISON (CURRENT) USE OF ANTICOAGULANT 01/16/2017 JAMEE VEE MD Ot I50.9 HEART FAILURE, UNSPECIFIED 03/01/2017 KAYE VENCES MD Ot I25.10 ATHSCL HEART DISEASE OF [place] CORONARY 03/01/2017 KAYE VENCES MD Ot 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 03/01/2017 KAYE VENCES MD Ot 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 MITRAL (VALVE) INSUFFICIENC 03/01/2017 KAYE VENCES MD Ot I48.2 CHRONIC ATRIAL FIBRILLATION 03/01/2017 KAYE VENCES MD Ot R07.89 OTHER CHEST PAIN 03/01/2017 KAYE VENCES MD Ot R09.89 OTH SYMPTOMS AND SIGNS INVOLVING THE CIR 03/08/2017 KAYE VENCES MD Ot I48.91 UNSPECIFIED ATRIAL FIBRILLATION 03/08/2017 KAYE VENCES MD Ot I50.9 HEART FAILURE, UNSPECIFIED 03/08/2017 KAYE VENCES MD Ot Z51.81 ENCOUNTER FOR THERAPEUTIC DRUG LEVEL MON 03/08/2017 KAYE VENCES MD Ot 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 03/10/2017 KAYE VENCES MD Ot I25.10 ATHSCL HEART DISEASE OF [place] CORONARY 03/10/2017 KAYE VENCES MD Ot 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 03/10/2017 KAYE VENCES MD Ot 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 MITRAL (VALVE) INSUFFICIENC 03/10/2017 KAYE VENCES MD Ot I48.2 CHRONIC ATRIAL FIBRILLATION 03/10/2017 KAYE VENCES MD Ot R07.89 OTHER CHEST PAIN 03/10/2017 KAYE VENCES MD Ot R09.89 OT SYMPTOMS AND SIGNS INVOLVING THE CIR 03/10/2017 CRESCENCIO KEEN CORN SHUCKER Ot R07.9 CHEST PAIN, UNSPECIFIED 03/10/2017 CRESCENCIO KEEN CORN SHUCKER Ot R53.81 OTHER MALAISE 03/10/2017 CRESCENCIO KEEN CORN SHUCKER Ot R53.83 OTHER FATIGUE 03/17/2017 KAYE VENCES MD Ot I50.9 HEART FAILURE, UNSPECIFIED 03/17/2017 KAYE VENCES MD Ot Z51.81 ENCOUNTER FOR THERAPEUTIC DRUG LEVEL MON 03/17/2017 KAYE VENCES MD Ot Z79.01 PRISON (CURRENT) USE OF ANTICOAGULANT 03/28/2017 MARIUSZ BORJAS, JAMEE Kennedy Ot N39.0 URINARY TRACT INFECTION, SITE NOT SPECIF 04/04/2017 KAYE VENCES MD Ot I50.9 HEART FAILURE, UNSPECIFIED 04/04/2017 KAYE VENCES MD Ot Z51.81 ENCOUNTER FOR THERAPEUTIC DRUG LEVEL MON 04/04/2017 KAYE VENCES MD Ot Z79.01 PRISON (CURRENT) USE OF ANTICOAGULANT 04/05/2017 Ot 401.1 BENIGN HYPERTENSION 04/05/2017 Ot 427.31 ATRIAL FIBRILLATION 04/05/2017 Ot V58.69 OTH MED,LT, CURRENT USE 04/05/2017 NATY MONTIEL MD Ot 244.8 ACQUIRED HYPOTHYROID NEC 04/05/2017 NATY MONTIEL MD Ot 272.4 HYPERLIPIDEMIA NEC/NOS 04/05/2017 NATY MONTIEL MD Ot 401.1 BENIGN HYPERTENSION 04/05/2017 NATY MONTIEL MD Ot 451.11 PHLEBITIS THROMBOPHLEBITIS,FEMORAL VEIN( 04/05/2017 NATY MONTIEL MD Ot 401.1 BENIGN HYPERTENSION 04/05/2017 NATY MONTIEL MD Ot 428.0 CONGESTIVE HEART FAILURE NOS 04/05/2017 NATY MONTIEL MD Ot 429.3 CARDIOMEGALY 04/05/2017 NATY MONTIEL MD Ot 721.2 THORACIC SPONDYLOSIS 04/05/2017 NATY MONTIEL MD Ot 786.05 SHORTNESS OF BREATH 04/05/2017 NATY MONTIEL MD Ot 786.2 COUGH 04/05/2017 NATY MONTIEL MD Ot 244.8 ACQUIRED HYPOTHYROID NEC 04/05/2017 NAYT MONTIEL MD Ot 272.4 HYPERLIPIDEMIA NEC/NOS 04/05/2017 NATY MONTIEL MD Ot 401.1 BENIGN HYPERTENSION 04/05/2017 NATY MONTIEL MD Ot 429.3 CARDIOMEGALY 04/05/2017 NATY MONTIEL MD Ot 786.9 RESP SYS/CHEST SYMP NEC 04/05/2017 NATY MONTIEL MD Ot 427.31 ATRIAL FIBRILLATION 04/05/2017 KATHYA SMITH INSURANCE SALES ASSISTANT Ot 496 CHR AIRWAY OBSTRUCT NEC 04/05/2017 KATHYA SMITH INSURANCE SALES ASSISTANT Ot 721.3 LUMBOSACRAL SPONDYLOSIS 04/05/2017 KATHYA SMITH INSURANCE SALES ASSISTANT Ot 733.90 BONE CARTILAGE DIS NOS 04/05/2017 KATHYA SMITH INSURANCE SALES ASSISTANT Ot 737.30 IDIOPATHIC SCOLIOSIS 04/05/2017 KATHYA SIMTH INSURANCE SALES ASSISTANT Ot 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, OROPHARYNGEAL PHASE 04/05/2017 JAMEE VEE MD Ot V58.61 ANTICOAGULANTS,LT,CURRENT USE 04/05/2017 JAMEE VEE MD Ot V58.83 ENCOUNTER FOR THERAPEUTIC DRUG MONITORIN 04/05/2017 JAMEE VEE MD Ot V58.61 ANTICOAGULANTS,LT,CURRENT USE 04/05/2017 JAMEE VEE MD Ot V58.83 ENCOUNTER FOR THERAPEUTIC DRUG MONITORIN 04/05/2017 JAMEE VEE MD Ot V58.61 ANTICOAGULANTS,LT,CURRENT USE 04/05/2017 JAMEE VEE MD Ot V58.83 ENCOUNTER FOR THERAPEUTIC DRUG MONITORIN 04/05/2017 JAMEE VEE MD Ot V58.61 ANTICOAGULANTS,LT,CURRENT USE 04/05/2017 JAMEE VEE MD Ot V58.83 ENCOUNTER FOR THERAPEUTIC DRUG MONITORIN 04/05/2017 JAMEE VEE MD Ot 530.6 ACQ ESOPHAG DIVERTICULUM 04/05/2017 JAMEE VEE MD Ot 786.2 COUGH 04/05/2017 MARIUSZ MD, JAMEE A Ot 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, OROPHARYNGEAL PHASE 04/05/2017 JAMEE VEE MD Ot V58.61 ANTICOAGULANTS,LT,CURRENT USE 04/05/2017 JAMEE VEE MD Ot V58.83 ENCOUNTER FOR THERAPEUTIC DRUG MONITORIN 04/05/2017 JAMEE VEE MD Ot R19.7 DIARRHEA, UNSPECIFIED 04/05/2017 KAYE VENCES MD Ot E87.70 FLUID OVERLOAD, UNSPECIFIED 04/05/2017 KAYE VENCES MD Ot R60.9 EDEMA, UNSPECIFIED 04/05/2017 JAMEE VEE MD Ot I50.9 HEART FAILURE, UNSPECIFIED 04/05/2017 HEATH BOLDEN Ot I10 ESSENTIAL (PRIMARY) HYPERTENSION 04/05/2017 HEATH BOLDEN Ot 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 04/05/2017 HEATH BOLDEN Ot I35.1 NONRHEUMATIC AORTIC (VALVE) INSUFFICIENC 04/05/2017 HEATH BOLDEN Ot I48.91 UNSPECIFIED ATRIAL FIBRILLATION 04/05/2017 HEATH BOLDEN Ot R09.89 OTH SYMPTOMS AND SIGNS INVOLVING THE CIR 04/05/2017 HEATH BOLDEN Ot I10 ESSENTIAL (PRIMARY) HYPERTENSION 04/05/2017 HEATH BOLDEN Ot 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 04/05/2017 HEATH BOLDEN Ot I35.1 NONRHEUMATIC AORTIC (VALVE) INSUFFICIENC 04/05/2017 HEATH BOLDEN Ot I48.91 UNSPECIFIED ATRIAL FIBRILLATION 04/05/2017 JAMEE VEE MD Ot R82.99 OTHER ABNORMAL FINDINGS IN URINE 04/05/2017 JAMEE VEE MD Ot Z51.81 ENCOUNTER FOR THERAPEUTIC DRUG LEVEL MON 04/05/2017 JAMEE VEE MD Ot Z79.01 PRISON (CURRENT) USE OF ANTICOAGULANT 04/05/2017 Ot R82.99 OTHER ABNORMAL FINDINGS IN URINE 04/05/2017 JAMEE VEE MD Ot Z51.81 ENCOUNTER FOR THERAPEUTIC DRUG LEVEL MON 04/05/2017 JAMEE VEE MD Ot 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 04/05/2017 JAMEE VEE MD Ot Z51.81 ENCOUNTER FOR THERAPEUTIC DRUG LEVEL MON 04/05/2017 JAMEE VEE MD Ot Z79.01 PRISON (CURRENT) USE OF ANTICOAGULANT 04/05/2017 JAMEE VEE MD Ot Z51.81 ENCOUNTER FOR THERAPEUTIC DRUG LEVEL MON 04/05/2017 JAMEE VEE MD Ot Z79.01 PRISON (CURRENT) USE OF ANTICOAGULANT 04/05/2017 JAMEE VEE MD Ot Z51.81 ENCOUNTER FOR THERAPEUTIC DRUG LEVEL MON 04/05/2017 JAMEE VEE MD Ot 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 04/05/2017 JAMEE VEE MD Ot D64.9 ANEMIA, UNSPECIFIED 04/05/2017 JAMEE VEE MD Ot I50.9 HEART FAILURE, UNSPECIFIED 04/05/2017 JAMEE VEE MD Ot N39.0 URINARY TRACT INFECTION, SITE NOT SPECIF 04/05/2017 JAMEE VEE MD Ot D64.9 ANEMIA, UNSPECIFIED 04/05/2017 JAMEE VEE MD Ot I50.9 HEART FAILURE, UNSPECIFIED 04/05/2017 JAMEE VEE MD Ot N39.0 URINARY TRACT INFECTION, SITE NOT SPECIF 04/05/2017 KATHYA SMITH Ot D64.9 ANEMIA, UNSPECIFIED 04/05/2017 JAMEE VEE MD Ot D50.0 IRON DEFICIENCY ANEMIA SECONDARY TO BLOO 04/05/2017 HEATH BOLDEN Ot I10 ESSENTIAL (PRIMARY) HYPERTENSION 04/05/2017 HEATH BOLDEN Ot I25.10 ATHSCL HEART DISEASE OF [place] CORONARY 04/05/2017 HEATH BOLDEN Ot I35.1 NONRHEUMATIC AORTIC (VALVE) INSUFFICIENC 04/05/2017 HEATH BOLDEN Ot I48.2 CHRONIC ATRIAL FIBRILLATION 04/05/2017 JAMEE VEE MD Ot D64.9 ANEMIA, UNSPECIFIED 04/05/2017 KAYE VENCES MD Ot Z51.81 ENCOUNTER FOR THERAPEUTIC DRUG LEVEL MON 04/05/2017 KAYE VENCES MD Ot 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 04/05/2017 KAYE VENCES MD Ot Z51.81 ENCOUNTER FOR THERAPEUTIC DRUG LEVEL MON 04/05/2017 KAYE VENCES MD Ot Z79.01 PRISON (CURRENT) USE OF ANTICOAGULANT 04/05/2017 KAYE VENCES MD Ot Z51.81 ENCOUNTER FOR THERAPEUTIC DRUG LEVEL MON 04/05/2017 KAYE VENCES MD Ot 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 04/05/2017 IRAM LANDEROS MD Ot Z51.81 ENCOUNTER FOR THERAPEUTIC DRUG LEVEL MON 04/05/2017 IRAM LANDEROS MD Ot 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 04/05/2017 KAYE VENCES MD Ot Z51.81 ENCOUNTER FOR THERAPEUTIC DRUG LEVEL MON 04/05/2017 KAYE VENCES MD Ot Z79.01 PRISON (CURRENT) USE OF ANTICOAGULANT 04/05/2017 KAYE VENCES MD Ot Z51.81 ENCOUNTER FOR THERAPEUTIC DRUG LEVEL MON 04/05/2017 KAYE VENCES MD Ot Z79.01 PRISON (CURRENT) USE OF ANTICOAGULANT 04/05/2017 JAMEE VEE MD Ot N39.0 URINARY TRACT INFECTION, SITE NOT SPECIF 04/05/2017 JAMEE VEE MD Ot Z51.81 ENCOUNTER FOR THERAPEUTIC DRUG LEVEL MON 04/05/2017 JAMEE VEE MD Ot Z79.01 PRISON (CURRENT) USE OF ANTICOAGULANT 04/05/2017 JAMEE VEE MD Ot I50.9 HEART FAILURE, UNSPECIFIED 04/05/2017 JAMEE VEE MD Ot I50.9 HEART FAILURE, UNSPECIFIED 04/05/2017 JAMEE VEE MD Ot I50.9 HEART FAILURE, UNSPECIFIED 04/05/2017 KAYE VENCES MD Ot Z51.81 ENCOUNTER FOR THERAPEUTIC DRUG LEVEL MON 04/05/2017 KAYE VENCES MD Ot 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 04/05/2017 JAMEE VEE MD Ot I50.9 HEART FAILURE, UNSPECIFIED 04/05/2017 JAMEE VEE MD Ot I50.9 HEART FAILURE, UNSPECIFIED 04/05/2017 JAMEE VEE MD Ot E87.6 HYPOKALEMIA 04/05/2017 JAMEE VEE MD Ot I50.9 HEART FAILURE, UNSPECIFIED 04/05/2017 KAYE VENCES MD, Ot Z51.81 ENCOUNTER FOR THERAPEUTIC DRUG LEVEL MON 04/05/2017 KAYE VENCES MD, Ot Z79.01 PRISON (CURRENT) USE OF ANTICOAGULANT 04/05/2017 JAMEE VEE MD Ot I11.0 HYPERTENSIVE HEART DISEASE WITH HEART FA 04/05/2017 JAMEE VEE MD Ot I50.9 HEART FAILURE, UNSPECIFIED 04/05/2017 JAMEE VEE MD Ot E87.6 HYPOKALEMIA 04/05/2017 JAMEE VEE MD Ot Z51.81 ENCOUNTER FOR THERAPEUTIC DRUG LEVEL MON 04/05/2017 JAMEE VEE MD, Ot Z79.01 PRISON (CURRENT) USE OF ANTICOAGULANT 04/05/2017 HEATH BOLDEN Ot I10 ESSENTIAL (PRIMARY) HYPERTENSION 04/05/2017 HEATH BOLDEN Ot I25.10 ATHSCL HEART DISEASE OF [place] CORONARY 04/05/2017 HEATH BOLDEN Ot I35.1 NONRHEUMATIC AORTIC (VALVE) INSUFFICIENC 04/05/2017 HEATH BOLDEN Ot I48.2 CHRONIC ATRIAL FIBRILLATION 04/05/2017 HEATH BOLDEN Ot R60.9 EDEMA, UNSPECIFIED 04/05/2017 KAYE VENCES MD, Ot Z51.81 ENCOUNTER FOR THERAPEUTIC DRUG LEVEL MON 04/05/2017 KAYE VENCES MD, Ot 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 04/05/2017 JAMEE VEE MD Ot I11.0 HYPERTENSIVE HEART DISEASE WITH HEART FA 04/05/2017 JAMEE VEE MD Ot I50.9 HEART FAILURE, UNSPECIFIED 04/05/2017 JAMEE VEE MD Ot I11.0 HYPERTENSIVE HEART DISEASE WITH HEART FA 04/05/2017 JAMEE VEE MD Ot I50.9 HEART FAILURE, UNSPECIFIED 04/05/2017 JAMEE VEE MD Ot R25.2 CRAMP AND SPASM 04/05/2017 JAMEE VEE MD Ot D64.9 ANEMIA, UNSPECIFIED 04/05/2017 JAMEE VEE MD Ot R25.2 CRAMP AND SPASM 04/05/2017 JAMEE VEE MD Ot I50.9 HEART FAILURE, UNSPECIFIED 04/05/2017 JAMEE VEE MD Ot 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 04/05/2017 JAMEE VEE MD Ot I11.0 HYPERTENSIVE HEART DISEASE WITH HEART FA 04/05/2017 JAMEE VEE MD Ot I50.9 HEART FAILURE, UNSPECIFIED 04/05/2017 KAYE VENCES MD Ot Z51.81 ENCOUNTER FOR THERAPEUTIC DRUG LEVEL MON 04/05/2017 KAYE VENCES MD Ot 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 04/05/2017 JAMEE VEE MD Ot I11.0 HYPERTENSIVE HEART DISEASE WITH HEART FA 04/05/2017 JAMEE VEE MD Ot I48.91 UNSPECIFIED ATRIAL FIBRILLATION 04/05/2017 JAMEE VEE MD Ot I50.9 HEART FAILURE, UNSPECIFIED 04/05/2017 JAMEE VEE MD Ot D50.9 IRON DEFICIENCY ANEMIA, UNSPECIFIED 04/05/2017 JAMEE VEE MD Ot I48.91 UNSPECIFIED ATRIAL FIBRILLATION 04/05/2017 JAMEE VEE MD Ot I50.9 HEART FAILURE, UNSPECIFIED 04/05/2017 JAMEE VEE MD Ot Z51.81 ENCOUNTER FOR THERAPEUTIC DRUG LEVEL MON 04/05/2017 JAMEE VEE MD Ot Z79.01 PRISON (CURRENT) USE OF ANTICOAGULANT 04/05/2017 JAMEE VEE MD Ot I50.9 HEART FAILURE, UNSPECIFIED 04/05/2017 JAMEE VEE MD Ot 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 04/05/2017 KAYE VENCES MD Ot Z51.81 ENCOUNTER FOR THERAPEUTIC DRUG LEVEL MON 04/05/2017 KAYE VENCES MD Ot 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 04/05/2017 KAYE VENCES MD Ot I48.91 UNSPECIFIED ATRIAL FIBRILLATION 04/05/2017 KAYE VENCES MD Ot I50.9 HEART FAILURE, UNSPECIFIED 04/05/2017 KAYE VENCES MD Ot 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 04/05/2017 KAYE VENCES MD, Ot I50.9 HEART FAILURE, UNSPECIFIED 04/05/2017 KAYE VENCES MD, Ot Z79.01 PRISON (CURRENT) USE OF ANTICOAGULANT 04/05/2017 JAMEE VEE MD Ot I50.9 HEART FAILURE, UNSPECIFIED 04/05/2017 JAMEE VEE MD Ot Z79.01 PRISON (CURRENT) USE OF ANTICOAGULANT 04/05/2017 JAMEE VEE MD Ot I10 ESSENTIAL (PRIMARY) HYPERTENSION 04/05/2017 JAMEE VEE MD, Ot I50.9 HEART FAILURE, UNSPECIFIED 04/05/2017 JAMEE VEE MD Ot Z79.01 PRISON (CURRENT) USE OF ANTICOAGULANT 04/05/2017 KAYE VENCES MD, Ot Z79.01 PRISON (CURRENT) USE OF ANTICOAGULANT 04/05/2017 CRESCENCIO KEEN [employer]N SHUCKER Ot R07.9 CHEST PAIN, UNSPECIFIED 04/05/2017 CRESCENCIO KEEN [employer]N SHUCKER Ot R53.81 OTHER MALAISE 04/05/2017 CRESCENCIO KEEN [employer] SHUCKER Ot R53.83 OTHER FATIGUE 04/05/2017 JAMEE VEE MD Ot E87.6 HYPOKALEMIA 04/05/2017 JAMEE VEE MD Ot E86.0 DEHYDRATION 04/05/2017 JAMEE VEE MD Ot I10 ESSENTIAL (PRIMARY) HYPERTENSION 04/05/2017 JAMEE VEE MD Ot Z79.01 PRISON (CURRENT) USE OF ANTICOAGULANT 04/05/2017 KAYE VENCES MD, Ot I50.9 HEART FAILURE, UNSPECIFIED 04/05/2017 KAYE VENCES MD Ot Z79.02 PRISON (CURRENT) USE OF ANTITHROMBOTI 04/05/2017 KAYE VENCES MD Ot I10 ESSENTIAL (PRIMARY) HYPERTENSION 04/05/2017 KAYE VENCES MD Ot 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 04/05/2017 KAYE VENCES MD Ot Z79.01 PRISON (CURRENT) USE OF ANTICOAGULANT 04/05/2017 KAYE VENCES MD Ot I10 ESSENTIAL (PRIMARY) HYPERTENSION 04/05/2017 KAYE VENCES MD Ot I35.1 NONRHEUMATIC AORTIC (VALVE) INSUFFICIENC 04/05/2017 VANGIE MD, BASHAR J Ot I48.2 CHRONIC ATRIAL FIBRILLATION 04/05/2017 KAYE VENCES MD Ot R07.89 OTHER CHEST PAIN 04/05/2017 KAYE VENCES MD Ot 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 04/05/2017 JAMEE VEE MD Ot I50.9 HEART FAILURE, UNSPECIFIED 04/05/2017 KAYE VENCES MD Ot I25.10 ATHSCL HEART DISEASE OF [place] CORONARY 04/05/2017 KAYE VENCES MD Ot 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 04/05/2017 KAYE VENCES MD Ot 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 MITRAL (VALVE) INSUFFICIENC 04/05/2017 KAYE VENCES MD Ot I48.2 CHRONIC ATRIAL FIBRILLATION 04/05/2017 KAYE VENCES MD Ot R07.89 OTHER CHEST PAIN 04/05/2017 KAYE VENCES MD Ot R09.89 OT SYMPTOMS AND SIGNS INVOLVING THE CIR 04/05/2017 KAYE VENCES MD Ot Z79.01 PRISON (CURRENT) USE OF ANTICOAGULANT 04/05/2017 KAYE VENCES MD Ot I48.91 UNSPECIFIED ATRIAL FIBRILLATION 04/05/2017 KAYE VENCES MD Ot I50.9 HEART FAILURE, UNSPECIFIED 04/05/2017 KAYE VENCES MD Ot Z51.81 ENCOUNTER FOR THERAPEUTIC DRUG LEVEL MON 04/05/2017 KAYE VENCES MD Ot 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 04/05/2017 KAYE VENCES MD Ot I50.9 HEART FAILURE, UNSPECIFIED 04/05/2017 KAYE VENCES MD Ot Z51.81 ENCOUNTER FOR THERAPEUTIC DRUG LEVEL MON 04/05/2017 KAYE VENCES MD Ot Z79.01 PRISON (CURRENT) USE OF ANTICOAGULANT 04/05/2017 JAMEE VEE MD Ot N39.0 URINARY TRACT INFECTION, SITE NOT SPECIF Procedures Code Description Performed By Performed On [id number] INSERTION OF INFUSION DEV INTO SUP VENA 11/28/2014 [id number] EXCISION OF UPPER ESOPHAGUS, OPEN APPROA 11/28/2014 [id number] DIVISION OF TONGUE, PALATE , PHARYNX MUSC 11/28/2014 [id number] INSPECTION OF UPPER INTESTINAL TRACT, EN 11/30/2014 Results Test Result Range PT panel in platelet poor plasma by coagulation assay - 10/12/15 12:00 Prothrombin time (PT) in platelet poor plasma by coagulation assay 24.1 s 12.2-14.7 INR in platelet poor plasma or blood by coagulation assay 2.2 0.8-1.4 Comprehensive metabolic panel - 10/21/15 09:30 Serum or plasma sodium measurement (moles/volume) 139 mmol/L 135-145 Serum or plasma potassium measurement (moles/volume) 3.8 mmol/L 3.6-5.0 Serum or plasma chloride measurement (moles/volume) 102 mmol/L 98-107 Carbon dioxide 26 mmol/L 21-32 Serum or plasma anion gap determination (moles/volume) 11 mmol/L 5-14 Serum or plasma urea nitrogen measurement (mass/volume) 21 mg/dL 7-18 Serum or plasma creatinine measurement (mass/volume) 1.10 mg/dL 0.60-1.30 Serum or plasma urea nitrogen/creatinine mass ratio 19 NRG Serum or plasma creatinine measurement with calculation of estimated glomerular filtration rate 48 NRG Serum or plasma glucose measurement (mass/volume) 96 mg/dL 70-105 Serum or plasma calcium measurement (mass/volume) 9.2 mg/dL 8.5-10.1 Serum or plasma total bilirubin measurement (mass/volume) 0.5 mg/dL 0.1-1.0 Serum or plasma alkaline phosphatase measurement (enzymatic activity/volume) 168 U/L 40-136 Serum or plasma aspartate aminotransferase measurement (enzymatic activity/ volume) 30 U/L 5-34 Serum or plasma alanine aminotransferase measurement (enzymatic activity/volume ) 21 U/L 0-55 Serum or plasma protein measurement (mass/volume) 6.9 g/dL 6.4-8.2 Serum or plasma albumin measurement (mass/volume) 4.0 g/dL 3.2-4.5 Whole blood basic metabolic panel - 10/26/15 10:10 Serum or plasma sodium measurement (moles/volume) 138 mmol/L 135-145 Serum or plasma potassium measurement (moles/volume) 2.8 mmol/L 3.6-5.0 Serum or plasma chloride measurement (moles/volume) 92 mmol/L 98-107 Carbon dioxide 33 mmol/L 21-32 Serum or plasma anion gap determination (moles/volume) 13 mmol/L 5-14 Serum or plasma urea nitrogen measurement (mass/volume) 19 mg/dL 7-18 Serum or plasma creatinine measurement (mass/volume) 1.07 mg/dL 0.60-1.30 Serum or plasma urea nitrogen/creatinine mass ratio 18 NRG Serum or plasma creatinine measurement with calculation of estimated glomerular filtration rate 49 NRG Serum or plasma glucose measurement (mass/volume) 104 mg/dL 70-105 Serum or plasma calcium measurement (mass/volume) 9.9 mg/dL 8.5-10.1 Whole blood basic metabolic panel - 10/30/15 10:00 Serum or plasma sodium measurement (moles/volume) 135 mmol/L 135-145 Serum or plasma potassium measurement (moles/volume) 3.8 mmol/L 3.6-5.0 Serum or plasma chloride measurement (moles/volume) 93 mmol/L 98-107 Carbon dioxide 30 mmol/L 21-32 Serum or plasma anion gap determination (moles/volume) 12 mmol/L 5-14 Serum or plasma urea nitrogen measurement (mass/volume) 29 mg/dL 7-18 Serum or plasma creatinine measurement (mass/volume) 1.21 mg/dL 0.60-1.30 Serum or plasma urea nitrogen/creatinine mass ratio 24 NRG Serum or plasma creatinine measurement with calculation of estimated glomerular filtration rate 43 NRG Serum or plasma glucose measurement (mass/volume) 103 mg/dL 70-105 Serum or plasma calcium measurement (mass/volume) 10.0 mg/dL 8.5-10.1 Complete blood count (CBC) with automated white blood cell (WBC) differential - 11/13/15 10:35 Blood leukocytes automated count (number/volume) 8.1 10*3/uL 4.3-11.0 Blood erythrocytes automated count (number/volume) 3.87 10*6/uL 4.35-5.85 Venous blood hemoglobin measurement (mass/volume) 10.1 g/dL 11.5-16.0 Blood hematocrit (volume fraction) 31 % 35-52 Automated erythrocyte mean corpuscular volume 81 [foz_us] 80-99 Automated erythrocyte mean corpuscular hemoglobin (mass per erythrocyte) 26 pg 25-34 Automated erythrocyte mean corpuscular hemoglobin concentration measurement ( mass/volume) 32 g/dL 32-36 Automated erythrocyte distribution width ratio 17.2 % 10.0-14.5 Automated blood platelet count (count/volume) 358 10*3/uL 130-400 Automated blood platelet mean volume measurement 11.6 [foz_us] 7.4-10.4 Automated blood neutrophils/100 leukocytes 58 % 42-75 Automated blood lymphocytes/100 leukocytes 24 % 12-44 Blood monocytes/100 leukocytes 16 % 0-12 Automated blood eosinophils/100 leukocytes 1 % 0-10 Automated blood basophils/100 leukocytes 1 % 0-10 Blood neutrophils automated count (number/volume) 4.7 10*3 1.8-7.8 Blood lymphocytes automated count (number/volume) 1.9 10*3 1.0-4.0 Blood monocytes automated count (number/volume) 1.3 10*3 0.0-1.0 Automated eosinophil count 0.1 10*3/uL 0.0-0.3 Automated blood basophil count (count/volume) 0.1 10*3/uL 0.0-0.1 PT panel in platelet poor plasma by coagulation assay - 11/13/15 10:35 Prothrombin time (PT) in platelet poor plasma by coagulation assay 24.0 s 12.2-14.7 INR in platelet poor plasma or blood by coagulation assay 2.2 0.8-1.4 Whole blood basic metabolic panel - 11/19/15 10:30 Serum or plasma sodium measurement (moles/volume) 136 mmol/L 135-145 Serum or plasma potassium measurement (moles/volume) 3.3 mmol/L 3.6-5.0 Serum or plasma chloride measurement (moles/volume) 94 mmol/L 98-107 Carbon dioxide 27 mmol/L 21-32 Serum or plasma anion gap determination (moles/volume) 15 mmol/L 5-14 Serum or plasma urea nitrogen measurement (mass/volume) 17 mg/dL 7-18 Serum or plasma creatinine measurement (mass/volume) 1.06 mg/dL 0.60-1.30 Serum or plasma urea nitrogen/creatinine mass ratio 16 NRG Serum or plasma creatinine measurement with calculation of estimated glomerular filtration rate 50 NRG Serum or plasma glucose measurement (mass/volume) 108 mg/dL 70-105 Serum or plasma calcium measurement (mass/volume) 9.9 mg/dL 8.5-10.1 Whole blood basic metabolic panel - 11/30/15 10:55 Serum or plasma sodium measurement (moles/volume) 137 mmol/L 135-145 Serum or plasma potassium measurement (moles/volume) 3.3 mmol/L 3.6-5.0 Serum or plasma chloride measurement (moles/volume) 96 mmol/L 98-107 Carbon dioxide 24 mmol/L 21-32 Serum or plasma anion gap determination (moles/volume) 17 mmol/L 5-14 Serum or plasma urea nitrogen measurement (mass/volume) 21 mg/dL 7-18 Serum or plasma creatinine measurement (mass/volume) 1.06 mg/dL 0.60-1.30 Serum or plasma urea nitrogen/creatinine mass ratio 20 NRG Serum or plasma creatinine measurement with calculation of estimated glomerular filtration rate 50 NRG Serum or plasma glucose measurement (mass/volume) 89 mg/dL 70-105 Serum or plasma calcium measurement (mass/volume) 10.0 mg/dL 8.5-10.1 Magnesium - 11/30/15 10:55 Magnesium 2.3 mg/dL 1.8-2.4 PT panel in platelet poor plasma by coagulation assay - 12/07/15 10:35 Prothrombin time (PT) in platelet poor plasma by coagulation assay 26.4 s 12.2-14.7 INR in platelet poor plasma or blood by coagulation assay 2.5 0.8-1.4 Whole blood basic metabolic panel - 12/28/15 12:45 Serum or plasma sodium measurement (moles/volume) 137 mmol/L 135-145 Serum or plasma potassium measurement (moles/volume) 2.7 mmol/L 3.6-5.0 Serum or plasma chloride measurement (moles/volume) 91 mmol/L 98-107 Carbon dioxide 35 mmol/L -32 Serum or plasma anion gap determination (moles/volume) 11 mmol/L 5-14 Serum or plasma urea nitrogen measurement (mass/volume) 30 mg/dL 7-18 Serum or plasma creatinine measurement (mass/volume) 1.15 mg/dL 0.60-1.30 Serum or plasma urea nitrogen/creatinine mass ratio 26 NRG Serum or plasma creatinine measurement with calculation of estimated glomerular filtration rate 45 NRG Serum or plasma glucose measurement (mass/volume) 124 mg/dL 70-105 Serum or plasma calcium measurement (mass/volume) 9.7 mg/dL 8.5-10.1 Whole blood basic metabolic panel - 01/01/16 10:40 Serum or plasma sodium measurement (moles/volume) 136 mmol/L 135-145 Serum or plasma potassium measurement (moles/volume) 2.9 mmol/L 3.6-5.0 Serum or plasma chloride measurement (moles/volume) 92 mmol/L 98-107 Carbon dioxide 31 mmol/L 21-32 Serum or plasma anion gap determination (moles/volume) 13 mmol/L 5-14 Serum or plasma urea nitrogen measurement (mass/volume) 32 mg/dL 7-18 Serum or plasma creatinine measurement (mass/volume) 1.13 mg/dL 0.60-1.30 Serum or plasma urea nitrogen/creatinine mass ratio 28 NRG Serum or plasma creatinine measurement with calculation of estimated glomerular filtration rate 46 NRG Serum or plasma glucose measurement (mass/volume) 94 mg/dL 70-105 Serum or plasma calcium measurement (mass/volume) 9.8 mg/dL 8.5-10.1 PT panel in platelet poor plasma by coagulation assay - 01/04/16 11:10 Prothrombin time (PT) in platelet poor plasma by coagulation assay 28.9 s 12.2-14.7 INR in platelet poor plasma or blood by coagulation assay 2.7 0.8-1.4 Whole blood basic metabolic panel - 01/04/16 11:10 Serum or plasma sodium measurement (moles/volume) 139 mmol/L 135-145 Serum or plasma potassium measurement (moles/volume) 3.5 mmol/L 3.6-5.0 Serum or plasma chloride measurement (moles/volume) 94 mmol/L 98-107 Carbon dioxide 34 mmol/L 21-32 Serum or plasma anion gap determination (moles/volume) 11 mmol/L 5-14 Serum or plasma urea nitrogen measurement (mass/volume) 22 mg/dL 7-18 Serum or plasma creatinine measurement (mass/volume) 1.03 mg/dL 0.60-1.30 Serum or plasma urea nitrogen/creatinine mass ratio 21 NRG Serum or plasma creatinine measurement with calculation of estimated glomerular filtration rate 51 NRG Serum or plasma glucose measurement (mass/volume) 95 mg/dL 70-105 Serum or plasma calcium measurement (mass/volume) 10.0 mg/dL 8.5-10.1 PT panel in platelet poor plasma by coagulation assay - 02/01/16 11:15 Prothrombin time (PT) in platelet poor plasma by coagulation assay 29.3 s 12.2-14.7 INR in platelet poor plasma or blood by coagulation assay 2.8 0.8-1.4 Whole blood basic metabolic panel - 02/01/16 11:15 Serum or plasma sodium measurement (moles/volume) 139 mmol/L 135-145 Serum or plasma potassium measurement (moles/volume) 3.9 mmol/L 3.6-5.0 Serum or plasma chloride measurement (moles/volume) 99 mmol/L 98-107 Carbon dioxide 28 mmol/L 21-32 Serum or plasma anion gap determination (moles/volume) 12 mmol/L 5-14 Serum or plasma urea nitrogen measurement (mass/volume) 22 mg/dL 7-18 Serum or plasma creatinine measurement (mass/volume) 0.89 mg/dL 0.60-1.30 Serum or plasma urea nitrogen/creatinine mass ratio 25 NRG Serum or plasma creatinine measurement with calculation of estimated glomerular filtration rate > NRG Serum or plasma glucose measurement (mass/volume) 83 mg/dL 70-105 Serum or plasma calcium measurement (mass/volume) 9.9 mg/dL 8.5-10.1 Whole blood basic metabolic panel - 02/18/16 16:20 Serum or plasma sodium measurement (moles/volume) 136 mmol/L 135-145 Serum or plasma potassium measurement (moles/volume) 3.7 mmol/L 3.6-5.0 Serum or plasma chloride measurement (moles/volume) 94 mmol/L 98-107 Carbon dioxide 29 mmol/L 21-32 Serum or plasma anion gap determination (moles/volume) 13 mmol/L 5-14 Serum or plasma urea nitrogen measurement (mass/volume) 28 mg/dL 7-18 Serum or plasma creatinine measurement (mass/volume) 1.26 mg/dL 0.60-1.30 Serum or plasma urea nitrogen/creatinine mass ratio 22 NRG Serum or plasma creatinine measurement with calculation of estimated glomerular filtration rate 41 NRG Serum or plasma glucose measurement (mass/volume) 88 mg/dL 70-105 Serum or plasma calcium measurement (mass/volume) 10.0 mg/dL 8.5-10.1 Automated blood complete blood count (hemogram) panel - 02/24/16 09:55 Blood leukocytes automated count (number/volume) 9.4 10*3/uL 4.3-11.0 Blood erythrocytes automated count (number/volume) 4.35 10*6/uL 4.35-5.85 Venous blood hemoglobin measurement (mass/volume) 11.4 g/dL 11.5-16.0 Blood hematocrit (volume fraction) 36 % 35-52 Automated erythrocyte mean corpuscular volume 82 [foz_us] 80-99 Automated erythrocyte mean corpuscular hemoglobin (mass per erythrocyte) 26 pg 25-34 Automated erythrocyte mean corpuscular hemoglobin concentration measurement ( mass/volume) 32 g/dL 32-36 Automated erythrocyte distribution width ratio 18.4 % 10.0-14.5 Automated blood platelet count (count/volume) 355 10*3/uL 130-400 Automated blood platelet mean volume measurement 11.1 [foz_us] 7.4-10.4 Serum iron and total iron binding capacity panel - 02/24/16 09:55 Serum or plasma iron measurement (mass/volume) 45 % 35- 180 Total iron binding capacity and transferrin saturation measurement 10 % 15-50 Iron binding capacity [mass/volume] in serum or plasma 450 % 280-380 UIBC (unsaturated iron binding capacity) 405 % 55-450 Serum or plasma ferritin measurement (mass/volume) 21 % 15-150 PT panel in platelet poor plasma by coagulation assay - 03/02/16 16:12 Prothrombin time (PT) in platelet poor plasma by coagulation assay 36.7 s 12.2-14.7 INR in platelet poor plasma or blood by coagulation assay 3.7 0.8-1.4 Whole blood basic metabolic panel - 03/02/16 16:12 Serum or plasma sodium measurement (moles/volume) 137 mmol/L 135-145 Serum or plasma potassium measurement (moles/volume) 3.3 mmol/L 3.6-5.0 Serum or plasma chloride measurement (moles/volume) 94 mmol/L 98-107 Carbon dioxide 31 mmol/L 21-32 Serum or plasma anion gap determination (moles/volume) 12 mmol/L 5-14 Serum or plasma urea nitrogen measurement (mass/volume) 31 mg/dL 7-18 Serum or plasma creatinine measurement (mass/volume) 1.58 mg/dL 0.60-1.30 Serum or plasma urea nitrogen/creatinine mass ratio 20 NRG Serum or plasma creatinine measurement with calculation of estimated glomerular filtration rate 31 NRG Serum or plasma glucose measurement (mass/volume) 115 mg/dL 70-105 Serum or plasma calcium measurement (mass/volume) 9.7 mg/dL 8.5-10.1 PT panel in platelet poor plasma by coagulation assay - 03/14/16 14:20 Prothrombin time (PT) in platelet poor plasma by coagulation assay 24.0 s 12.2-14.7 INR in platelet poor plasma or blood by coagulation assay 2.2 0.8-1.4 Whole blood basic metabolic panel - 03/14/16 14:20 Serum or plasma sodium measurement (moles/volume) 137 mmol/L 135-145 Serum or plasma potassium measurement (moles/volume) 3.9 mmol/L 3.6-5.0 Serum or plasma chloride measurement (moles/volume) 95 mmol/L 98-107 Carbon dioxide 32 mmol/L 21-32 Serum or plasma anion gap determination (moles/volume) 10 mmol/L 5-14 Serum or plasma urea nitrogen measurement (mass/volume) 24 mg/dL 7-18 Serum or plasma creatinine measurement (mass/volume) 1.19 mg/dL 0.60-1.30 Serum or plasma urea nitrogen/creatinine mass ratio 20 NRG Serum or plasma creatinine measurement with calculation of estimated glomerular filtration rate 43 NRG Serum or plasma glucose measurement (mass/volume) 123 mg/dL 70-105 Serum or plasma calcium measurement (mass/volume) 9.7 mg/dL 8.5-10.1 Complete blood count (CBC) with automated white blood cell (WBC) differential - 04/27/16 10:45 Blood leukocytes automated count (number/volume) 8.7 10*3/uL 4.3-11.0 Blood erythrocytes automated count (number/volume) 3.96 10*6/uL 4.35-5.85 Venous blood hemoglobin measurement (mass/volume) 10.3 g/dL 11.5-16.0 Blood hematocrit (volume fraction) 33 % 35-52 Automated erythrocyte mean corpuscular volume 83 [foz_us] 80-99 Automated erythrocyte mean corpuscular hemoglobin (mass per erythrocyte) 26 pg 25-34 Automated erythrocyte mean corpuscular hemoglobin concentration measurement ( mass/volume) 31 g/dL 32-36 Automated erythrocyte distribution width ratio 17.6 % 10.0-14.5 Automated blood platelet count (count/volume) 414 10*3/uL 130-400 Automated blood platelet mean volume measurement 11.2 [foz_us] 7.4-10.4 Automated blood neutrophils/100 leukocytes 67 % 42-75 Automated blood lymphocytes/100 leukocytes 19 % 12-44 Blood monocytes/100 leukocytes 13 % 0-12 Automated blood eosinophils/100 leukocytes 1 % 0-10 Automated blood basophils/100 leukocytes 1 % 0-10 Blood neutrophils automated count (number/volume) 5.8 10*3 1.8-7.8 Blood lymphocytes automated count (number/volume) 1.7 10*3 1.0-4.0 Blood monocytes automated count (number/volume) 1.1 10*3 0.0-1.0 Automated eosinophil count 0.1 10*3/uL 0.0-0.3 Automated blood basophil count (count/volume) 0.1 10*3/uL 0.0-0.1 PT panel in platelet poor plasma by coagulation assay - 04/27/16 10:45 Prothrombin time (PT) in platelet poor plasma by coagulation assay 33.6 s 12.2-14.7 INR in platelet poor plasma or blood by coagulation assay 3.3 0.8-1.4 Comprehensive metabolic panel - 04/27/16 10:45 Serum or plasma sodium measurement (moles/volume) 135 mmol/L 135-145 Serum or plasma potassium measurement (moles/volume) 3.8 mmol/L 3.6-5.0 Serum or plasma chloride measurement (moles/volume) 95 mmol/L 98-107 Carbon dioxide 28 mmol/L 21-32 Serum or plasma anion gap determination (moles/volume) 12 mmol/L 5-14 Serum or plasma urea nitrogen measurement (mass/volume) 23 mg/dL 7-18 Serum or plasma creatinine measurement (mass/volume) 1.28 mg/dL 0.60-1.30 Serum or plasma urea nitrogen/creatinine mass ratio 18 NRG Serum or plasma creatinine measurement with calculation of estimated glomerular filtration rate 40 NRG Serum or plasma glucose measurement (mass/volume) 92 mg/dL 70-105 Serum or plasma calcium measurement (mass/volume) 9.8 mg/dL 8.5-10.1 Serum or plasma total bilirubin measurement (mass/volume) 0.4 mg/dL 0.1-1.0 Serum or plasma alkaline phosphatase measurement (enzymatic activity/volume) 171 U/L 40-136 Serum or plasma aspartate aminotransferase measurement (enzymatic activity/ volume) 27 U/L 5-34 Serum or plasma alanine aminotransferase measurement (enzymatic activity/volume ) 19 U/L 0-55 Serum or plasma protein measurement (mass/volume) 7.2 g/dL 6.4-8.2 Serum or plasma albumin measurement (mass/volume) 4.1 g/dL 3.2-4.5 Complete blood count (CBC) with automated white blood cell (WBC) differential - 05/17/16 10:10 Blood leukocytes automated count (number/volume) 11.5 10*3/uL 4.3-11.0 Blood erythrocytes automated count (number/volume) 3.68 10*6/uL 4.35-5.85 Venous blood hemoglobin measurement (mass/volume) 9.8 g/dL 11.5-16.0 Blood hematocrit (volume fraction) 31 % 35-52 Automated erythrocyte mean corpuscular volume 83 [foz_us] 80-99 Automated erythrocyte mean corpuscular hemoglobin (mass per erythrocyte) 27 pg 25-34 Automated erythrocyte mean corpuscular hemoglobin concentration measurement ( mass/volume) 32 g/dL 32-36 Automated erythrocyte distribution width ratio 17.6 % 10.0-14.5 Automated blood platelet count (count/volume) 330 10*3/uL 130-400 Automated blood platelet mean volume measurement 11.5 [foz_us] 7.4-10.4 Automated blood neutrophils/100 leukocytes 65 % 42-75 Automated blood lymphocytes/100 leukocytes 17 % 12-44 Blood monocytes/100 leukocytes 16 % 0-12 Automated blood eosinophils/100 leukocytes 2 % 0-10 Automated blood basophils/100 leukocytes 1 % 0-10 Blood neutrophils automated count (number/volume) 7.5 10*3 1.8-7.8 Blood lymphocytes automated count (number/volume) 2.0 10*3 1.0-4.0 Blood monocytes automated count (number/volume) 1.8 10*3 0.0-1.0 Automated eosinophil count 0.2 10*3/uL 0.0-0.3 Automated blood basophil count (count/volume) 0.1 10*3/uL 0.0-0.1 PT panel in platelet poor plasma by coagulation assay - 05/17/16 10:10 Prothrombin time (PT) in platelet poor plasma by coagulation assay 39.2 s 12.2-14.7 INR in platelet poor plasma or blood by coagulation assay 4.0 0.8-1.4 Comprehensive metabolic panel - 05/17/16 10:10 Serum or plasma sodium measurement (moles/volume) 138 mmol/L 135-145 Serum or plasma potassium measurement (moles/volume) 3.3 mmol/L 3.6-5.0 Serum or plasma chloride measurement (moles/volume) 98 mmol/L 98-107 Carbon dioxide 28 mmol/L 21-32 Serum or plasma anion gap determination (moles/volume) 12 mmol/L 5-14 Serum or plasma urea nitrogen measurement (mass/volume) 19 mg/dL 7-18 Serum or plasma creatinine measurement (mass/volume) 1.23 mg/dL 0.60-1.30 Serum or plasma urea nitrogen/creatinine mass ratio 15 NRG Serum or plasma creatinine measurement with calculation of estimated glomerular filtration rate 42 NRG Serum or plasma glucose measurement (mass/volume) 105 mg/dL 70-105 Serum or plasma calcium measurement (mass/volume) 9.5 mg/dL 8.5-10.1 Serum or plasma total bilirubin measurement (mass/volume) 0.4 mg/dL 0.1-1.0 Serum or plasma alkaline phosphatase measurement (enzymatic activity/volume) 179 U/L 40-136 Serum or plasma aspartate aminotransferase measurement (enzymatic activity/ volume) 20 U/L 5-34 Serum or plasma alanine aminotransferase measurement (enzymatic activity/volume ) 17 U/L 0-55 Serum or plasma protein measurement (mass/volume) 7.1 g/dL 6.4-8.2 Serum or plasma albumin measurement (mass/volume) 3.8 g/dL 3.2-4.5 THYROID STIMULATING HORMONE - 05/17/16 10:10 THYROID STIMULATING HORMONE 1.14 u[iU]/mL 0.35-4.94 PT panel in platelet poor plasma by coagulation assay - 05/23/16 10:40 Prothrombin time (PT) in platelet poor plasma by coagulation assay 20.2 s 12.2-14.7 INR in platelet poor plasma or blood by coagulation assay 1.8 0.8-1.4 Complete urinalysis with reflex to culture - 05/23/16 10:40 Urine color determination YELLOW NRG Urine clarity determination CLEAR NRG Urine pH measurement by test strip 8 5-9 Specific gravity of urine by test strip 1.010 1.016- 1.022 Urine protein assay by test strip, semi-quantitative NEGATIVE NEGATIVE Urine glucose detection by automated test strip NEGATIVE NEGATIVE Erythrocytes detection in urine sediment by light microscopy NEGATIVE NEGATIVE Urine ketones detection by automated test strip NEGATIVE NEGATIVE Urine nitrite detection by test strip NEGATIVE NEGATIVE Urine total bilirubin detection by test strip NEGATIVE NEGATIVE Urine urobilinogen measurement by automated test strip (mass/volume) NORMAL NORMAL Urine leukocyte esterase detection by dipstick 1+ NEGATIVE Automated urine sediment erythrocyte count by microscopy (number/high power field) RARE NRG Automated urine sediment leukocyte count by microscopy (number/high power field ) RARE NRG Bacteria detection in urine sediment by light microscopy NEGATIVE NRG Squamous epithelial cells detection in urine sediment by light microscopy 2-5 NRG Crystals detection in urine sediment by light microscopy NONE NRG Casts detection in urine sediment by light microscopy NONE NRG Mucus detection in urine sediment by light microscopy NEGATIVE NRG Complete urinalysis with reflex to culture NO NRG PT panel in platelet poor plasma by coagulation assay - 05/31/16 09:30 Prothrombin time (PT) in platelet poor plasma by coagulation assay 18.6 s 12.2-14.7 INR in platelet poor plasma or blood by coagulation assay 1.6 0.8-1.4 Comprehensive metabolic panel - 05/31/16 09:30 Serum or plasma sodium measurement (moles/volume) 138 mmol/L 135-145 Serum or plasma potassium measurement (moles/volume) 4.5 mmol/L 3.6-5.0 Serum or plasma chloride measurement (moles/volume) 104 mmol/L 98-107 Carbon dioxide 26 mmol/L 21-32 Serum or plasma anion gap determination (moles/volume) 8 mmol/L 5-14 Serum or plasma urea nitrogen measurement (mass/volume) 22 mg/dL 7-18 Serum or plasma creatinine measurement (mass/volume) 1.26 mg/dL 0.60-1.30 Serum or plasma urea nitrogen/creatinine mass ratio 17 NRG Serum or plasma creatinine measurement with calculation of estimated glomerular filtration rate 41 NRG Serum or plasma glucose measurement (mass/volume) 82 mg/dL 70-105 Serum or plasma calcium measurement (mass/volume) 9.7 mg/dL 8.5-10.1 Serum or plasma total bilirubin measurement (mass/volume) 0.4 mg/dL 0.1-1.0 Serum or plasma alkaline phosphatase measurement (enzymatic activity/volume) 168 U/L 40-136 Serum or plasma aspartate aminotransferase measurement (enzymatic activity/ volume) 24 U/L 5-34 Serum or plasma alanine aminotransferase measurement (enzymatic activity/volume ) 13 U/L 0-55 Serum or plasma protein measurement (mass/volume) 6.8 g/dL 6.4-8.2 Serum or plasma albumin measurement (mass/volume) 3.8 g/dL 3.2-4.5 PT panel in platelet poor plasma by coagulation assay - 06/15/16 15:30 Prothrombin time (PT) in platelet poor plasma by coagulation assay 23.7 s 12.2-14.7 INR in platelet poor plasma or blood by coagulation assay 2.1 0.8-1.4 PT panel in platelet poor plasma by coagulation assay - 08/16/16 11:45 Prothrombin time (PT) in platelet poor plasma by coagulation assay 32.2 s 12.2-14.7 INR in platelet poor plasma or blood by coagulation assay 3.1 0.8-1.4 Whole blood basic metabolic panel - 08/16/16 11:45 Serum or plasma sodium measurement (moles/volume) 137 mmol/L 135-145 Serum or plasma potassium measurement (moles/volume) 4.1 mmol/L 3.6-5.0 Serum or plasma chloride measurement (moles/volume) 99 mmol/L 98-107 Carbon dioxide 27 mmol/L 21-32 Serum or plasma anion gap determination (moles/volume) 11 mmol/L 5-14 Serum or plasma urea nitrogen measurement (mass/volume) 31 mg/dL 7-18 Serum or plasma creatinine measurement (mass/volume) 1.67 mg/dL 0.60-1.30 Serum or plasma urea nitrogen/creatinine mass ratio 19 0 -20 Serum or plasma creatinine measurement with calculation of estimated glomerular filtration rate 29 NRG Serum or plasma glucose measurement (mass/volume) 84 mg/dL 70-105 Serum or plasma calcium measurement (mass/volume) 9.7 mg/dL 8.5-10.1 PT panel in platelet poor plasma by coagulation assay - 09/12/16 15:15 Prothrombin time (PT) in platelet poor plasma by coagulation assay 42.5 s 12.2-14.7 INR in platelet poor plasma or blood by coagulation assay 4.4 0.8-1.4 Whole blood basic metabolic panel - 09/12/16 15:15 Serum or plasma sodium measurement (moles/volume) 137 mmol/L 135-145 Serum or plasma potassium measurement (moles/volume) 4.3 mmol/L 3.6-5.0 Serum or plasma chloride measurement (moles/volume) 100 mmol/L 98-107 Carbon dioxide 25 mmol/L 21-32 Serum or plasma anion gap determination (moles/volume) 12 mmol/L 5-14 Serum or plasma urea nitrogen measurement (mass/volume) 28 mg/dL 7-18 Serum or plasma creatinine measurement (mass/volume) 1.52 mg/dL 0.60-1.30 Serum or plasma urea nitrogen/creatinine mass ratio 18 NRG Serum or plasma creatinine measurement with calculation of estimated glomerular filtration rate 33 NRG Serum or plasma glucose measurement (mass/volume) 92 mg/dL 70-105 Serum or plasma calcium measurement (mass/volume) 9.8 mg/dL 8.5-10.1 PT panel in platelet poor plasma by coagulation assay - 09/26/16 16:45 Prothrombin time (PT) in platelet poor plasma by coagulation assay 18.2 s 12.2-14.7 INR in platelet poor plasma or blood by coagulation assay 1.5 0.8-1.4 Complete blood count (CBC) with automated white blood cell (WBC) differential - 09/29/16 17:30 Blood leukocytes automated count (number/volume) 10.7 10*3/uL 4.3-11.0 Blood erythrocytes automated count (number/volume) 4.26 10*6/uL 4.35-5.85 Venous blood hemoglobin measurement (mass/volume) 11.7 g/dL 11.5-16.0 Blood hematocrit (volume fraction) 37 % 35-52 Automated erythrocyte mean corpuscular volume 88 [foz_us] 80-99 Automated erythrocyte mean corpuscular hemoglobin (mass per erythrocyte) 28 pg 25-34 Automated erythrocyte mean corpuscular hemoglobin concentration measurement ( mass/volume) 31 g/dL 32-36 Automated erythrocyte distribution width ratio 19.9 % 10.0-14.5 Automated blood platelet count (count/volume) 314 10*3/uL 130-400 Automated blood platelet mean volume measurement 11.5 [foz_us] 7.4-10.4 Automated blood neutrophils/100 leukocytes 68 % 42-75 Automated blood lymphocytes/100 leukocytes 17 % 12-44 Blood monocytes/100 leukocytes 13 % 0-12 Automated blood eosinophils/100 leukocytes 2 % 0-10 Automated blood basophils/100 leukocytes 1 % 0-10 Blood neutrophils automated count (number/volume) 7.2 10*3 1.8-7.8 Blood lymphocytes automated count (number/volume) 1.9 10*3 1.0-4.0 Blood monocytes automated count (number/volume) 1.4 10*3 0.0-1.0 Automated eosinophil count 0.2 10*3/uL 0.0-0.3 Automated blood basophil count (count/volume) 0.1 10*3/uL 0.0-0.1 PT panel in platelet poor plasma by coagulation assay - 09/29/16 17:30 Prothrombin time (PT) in platelet poor plasma by coagulation assay 23.1 s 12.2-14.7 INR in platelet poor plasma or blood by coagulation assay 2.1 0.8-1.4 Comprehensive metabolic panel - 09/29/16 17:30 Serum or plasma sodium measurement (moles/volume) 135 mmol/L 135-145 Serum or plasma potassium measurement (moles/volume) 6.4 mmol/L 3.6-5.0 Serum or plasma chloride measurement (moles/volume) 104 mmol/L 98-107 Carbon dioxide 21 mmol/L 21-32 Serum or plasma anion gap determination (moles/volume) 10 mmol/L 5-14 Serum or plasma urea nitrogen measurement (mass/volume) 34 mg/dL 7-18 Serum or plasma creatinine measurement (mass/volume) 2.59 mg/dL 0.60-1.30 Serum or plasma urea nitrogen/creatinine mass ratio 13 NRG Serum or plasma creatinine measurement with calculation of estimated glomerular filtration rate 18 NRG Serum or plasma glucose measurement (mass/volume) 123 mg/dL 70-105 Serum or plasma calcium measurement (mass/volume) 10.5 mg/dL 8.5-10.1 Serum or plasma total bilirubin measurement (mass/volume) 0.4 mg/dL 0.1-1.0 Serum or plasma alkaline phosphatase measurement (enzymatic activity/volume) 185 U/L 40-136 Serum or plasma aspartate aminotransferase measurement (enzymatic activity/ volume) 18 U/L 5-34 Serum or plasma alanine aminotransferase measurement (enzymatic activity/volume ) 10 U/L 0-55 Serum or plasma protein measurement (mass/volume) 7.8 g/dL 6.4-8.2 Serum or plasma albumin measurement (mass/volume) 4.2 g/dL 3.2-4.5 Serum or plasma troponin i.cardiac measurement (mass/volume) - 09/29/16 17:30 Serum or plasma troponin i.cardiac measurement (mass/volume) < ng/ mL <0.30 THYROID STIMULATING HORMONE - 09/29/16 17:30 THYROID STIMULATING HORMONE 1.34 u[iU]/mL 0.35-4.94 Whole blood basic metabolic panel - 09/30/16 12:45 Serum or plasma sodium measurement (moles/volume) 133 mmol/L 135-145 Serum or plasma potassium measurement (moles/volume) 5.3 mmol/L 3.6-5.0 Serum or plasma chloride measurement (moles/volume) 103 mmol/L 98-107 Carbon dioxide 16 mmol/L 21-32 Serum or plasma anion gap determination (moles/volume) 14 mmol/L 5-14 Serum or plasma urea nitrogen measurement (mass/volume) 39 mg/dL 7-18 Serum or plasma creatinine measurement (mass/volume) 2.71 mg/dL 0.60-1.30 Serum or plasma urea nitrogen/creatinine mass ratio 14 NRG Serum or plasma creatinine measurement with calculation of estimated glomerular filtration rate 17 NRG Serum or plasma glucose measurement (mass/volume) 85 mg/dL 70-105 Serum or plasma calcium measurement (mass/volume) 10.0 mg/dL 8.5-10.1 Comprehensive metabolic panel - 10/03/16 09:55 Serum or plasma sodium measurement (moles/volume) 131 mmol/L 135-145 Serum or plasma potassium measurement (moles/volume) 5.3 mmol/L 3.6-5.0 Serum or plasma chloride measurement (moles/volume) 103 mmol/L 98-107 Carbon dioxide 17 mmol/L -32 Serum or plasma anion gap determination (moles/volume) 11 mmol/L 5-14 Serum or plasma urea nitrogen measurement (mass/volume) 41 mg/dL 7-18 Serum or plasma creatinine measurement (mass/volume) 2.20 mg/dL 0.60-1.30 Serum or plasma urea nitrogen/creatinine mass ratio 19 NRG Serum or plasma creatinine measurement with calculation of estimated glomerular filtration rate 21 NRG Serum or plasma glucose measurement (mass/volume) 110 mg/dL 70-105 Serum or plasma calcium measurement (mass/volume) 9.6 mg/dL 8.5-10.1 Serum or plasma total bilirubin measurement (mass/volume) 0.4 mg/dL 0.1-1.0 Serum or plasma alkaline phosphatase measurement (enzymatic activity/volume) 168 U/L 40-136 Serum or plasma aspartate aminotransferase measurement (enzymatic activity/ volume) 17 U/L 5-34 Serum or plasma alanine aminotransferase measurement (enzymatic activity/volume ) 8 U/L 0-55 Serum or plasma protein measurement (mass/volume) 6.9 g/dL 6.4-8.2 Serum or plasma albumin measurement (mass/volume) 3.9 g/dL 3.2-4.5 Comprehensive metabolic panel - 10/06/16 08:35 Serum or plasma sodium measurement (moles/volume) 134 mmol/L 135-145 Serum or plasma potassium measurement (moles/volume) 4.1 mmol/L 3.6-5.0 Serum or plasma chloride measurement (moles/volume) 99 mmol/L 98-107 Carbon dioxide 25 mmol/L 21-32 Serum or plasma anion gap determination (moles/volume) 10 mmol/L 5-14 Serum or plasma urea nitrogen measurement (mass/volume) 21 mg/dL 7-18 Serum or plasma creatinine measurement (mass/volume) 1.47 mg/dL 0.60-1.30 Serum or plasma urea nitrogen/creatinine mass ratio 14 NRG Serum or plasma creatinine measurement with calculation of estimated glomerular filtration rate 34 NRG Serum or plasma glucose measurement (mass/volume) 105 mg/dL 70-105 Serum or plasma calcium measurement (mass/volume) 9.6 mg/dL 8.5-10.1 Serum or plasma total bilirubin measurement (mass/volume) 0.4 mg/dL 0.1-1.0 Serum or plasma alkaline phosphatase measurement (enzymatic activity/volume) 155 U/L 40-136 Serum or plasma aspartate aminotransferase measurement (enzymatic activity/ volume) 17 U/L 5-34 Serum or plasma alanine aminotransferase measurement (enzymatic activity/volume ) 7 U/L 0-55 Serum or plasma protein measurement (mass/volume) 6.7 g/dL 6.4-8.2 Serum or plasma albumin measurement (mass/volume) 3.9 g/dL 3.2-4.5 PT panel in platelet poor plasma by coagulation assay - 10/13/16 10:00 Prothrombin time (PT) in platelet poor plasma by coagulation assay 32.4 s 12.2-14.7 INR in platelet poor plasma or blood by coagulation assay 3.2 0.8-1.4 Whole blood basic metabolic panel - 10/13/16 10:00 Serum or plasma sodium measurement (moles/volume) 136 mmol/L 135-145 Serum or plasma potassium measurement (moles/volume) 4.0 mmol/L 3.6-5.0 Serum or plasma chloride measurement (moles/volume) 102 mmol/L 98-107 Carbon dioxide 26 mmol/L 21-32 Serum or plasma anion gap determination (moles/volume) 8 mmol/L 5-14 Serum or plasma urea nitrogen measurement (mass/volume) 26 mg/dL 7-18 Serum or plasma creatinine measurement (mass/volume) 1.39 mg/dL 0.60-1.30 Serum or plasma urea nitrogen/creatinine mass ratio 19 NRG Serum or plasma creatinine measurement with calculation of estimated glomerular filtration rate 36 NRG Serum or plasma glucose measurement (mass/volume) 116 mg/dL 70-105 Serum or plasma calcium measurement (mass/volume) 9.3 mg/dL 8.5-10.1 Whole blood basic metabolic panel - 10/27/16 09:50 Serum or plasma sodium measurement (moles/volume) 130 mmol/L 135-145 Serum or plasma potassium measurement (moles/volume) 4.9 mmol/L 3.6-5.0 Serum or plasma chloride measurement (moles/volume) 97 mmol/L 98-107 Carbon dioxide 26 mmol/L -32 Serum or plasma anion gap determination (moles/volume) 7 mmol/L 5-14 Serum or plasma urea nitrogen measurement (mass/volume) 25 mg/dL 7-18 Serum or plasma creatinine measurement (mass/volume) 1.60 mg/dL 0.60-1.30 Serum or plasma urea nitrogen/creatinine mass ratio 16 NRG Serum or plasma creatinine measurement with calculation of estimated glomerular filtration rate 31 NRG Serum or plasma glucose measurement (mass/volume) 73 mg/dL 70-105 Serum or plasma calcium measurement (mass/volume) 9.5 mg/dL 8.5-10.1 PT panel in platelet poor plasma by coagulation assay - 10/27/16 09:50 Prothrombin time (PT) in platelet poor plasma by coagulation assay 25.3 s 12.2-14.7 INR in platelet poor plasma or blood by coagulation assay 2.3 0.8-1.4 PT panel in platelet poor plasma by coagulation assay - 11/23/16 12:45 Prothrombin time (PT) in platelet poor plasma by coagulation assay 19.4 s 12.2-14.7 INR in platelet poor plasma or blood by coagulation assay 1.6 0.8-1.4 Whole blood basic metabolic panel - 11/23/16 12:45 Serum or plasma sodium measurement (moles/volume) 137 mmol/L 135-145 Serum or plasma potassium measurement (moles/volume) 4.3 mmol/L 3.6-5.0 Serum or plasma chloride measurement (moles/volume) 99 mmol/L 98-107 Carbon dioxide 27 mmol/L 21-32 Serum or plasma anion gap determination (moles/volume) 11 mmol/L 5-14 Serum or plasma urea nitrogen measurement (mass/volume) 31 mg/dL 7-18 Serum or plasma creatinine measurement (mass/volume) 1.28 mg/dL 0.60-1.30 Serum or plasma urea nitrogen/creatinine mass ratio 24 NRG Serum or plasma creatinine measurement with calculation of estimated glomerular filtration rate 40 NRG Serum or plasma glucose measurement (mass/volume) 90 mg/dL 70-105 Serum or plasma calcium measurement (mass/volume) 9.7 mg/dL 8.5-10.1 PT panel in platelet poor plasma by coagulation assay - 12/07/16 11:15 Prothrombin time (PT) in platelet poor plasma by coagulation assay 28.1 s 12.2-14.7 INR in platelet poor plasma or blood by coagulation assay 2.6 0.8-1.4 Whole blood basic metabolic panel - 12/21/16 12:30 Serum or plasma sodium measurement (moles/volume) 137 mmol/L 135-145 Serum or plasma potassium measurement (moles/volume) 5.0 mmol/L 3.6-5.0 Serum or plasma chloride measurement (moles/volume) 101 mmol/L 98-107 Carbon dioxide 29 mmol/L 21-32 Serum or plasma anion gap determination (moles/volume) 7 mmol/L 5-14 Serum or plasma urea nitrogen measurement (mass/volume) 23 mg/dL 7-18 Serum or plasma creatinine measurement (mass/volume) 1.32 mg/dL 0.60-1.30 Serum or plasma urea nitrogen/creatinine mass ratio 17 NRG Serum or plasma creatinine measurement with calculation of estimated glomerular filtration rate 38 NRG Serum or plasma glucose measurement (mass/volume) 94 mg/dL 70-105 Serum or plasma calcium measurement (mass/volume) 9.4 mg/dL 8.5-10.1 PT panel in platelet poor plasma by coagulation assay - 01/17/17 11:21 Prothrombin time (PT) in platelet poor plasma by coagulation assay 23.5 s 12.2-14.7 INR in platelet poor plasma or blood by coagulation assay 2.1 0.8-1.4 Whole blood basic metabolic panel - 01/17/17 11:21 Serum or plasma sodium measurement (moles/volume) 137 mmol/L 135-145 Serum or plasma potassium measurement (moles/volume) 4.6 mmol/L 3.6-5.0 Serum or plasma chloride measurement (moles/volume) 100 mmol/L 98-107 Carbon dioxide 26 mmol/L 21-32 Serum or plasma anion gap determination (moles/volume) 11 mmol/L 5-14 Serum or plasma urea nitrogen measurement (mass/volume) 22 mg/dL 7-18 Serum or plasma creatinine measurement (mass/volume) 1.72 mg/dL 0.60-1.30 Serum or plasma urea nitrogen/creatinine mass ratio 13 NRG Serum or plasma creatinine measurement with calculation of estimated glomerular filtration rate 28 NRG Serum or plasma glucose measurement (mass/volume) 89 mg/dL 70-105 Serum or plasma calcium measurement (mass/volume) 9.6 mg/dL 8.5-10.1 PT panel in platelet poor plasma by coagulation assay - 02/13/17 10:45 Prothrombin time (PT) in platelet poor plasma by coagulation assay 22.6 s 12.2-14.7 INR in platelet poor plasma or blood by coagulation assay 2.0 0.8-1.4 Whole blood basic metabolic panel - 02/13/17 10:45 Serum or plasma sodium measurement (moles/volume) 140 mmol/L 135-145 Serum or plasma potassium measurement (moles/volume) 5.4 mmol/L 3.6-5.0 Serum or plasma chloride measurement (moles/volume) 109 mmol/L 98-107 Carbon dioxide 23 mmol/L 21-32 Serum or plasma anion gap determination (moles/volume) 8 mmol/L 5-14 Serum or plasma urea nitrogen measurement (mass/volume) 41 mg/dL 7-18 Serum or plasma creatinine measurement (mass/volume) 1.82 mg/dL 0.60-1.30 Serum or plasma urea nitrogen/creatinine mass ratio 23 NRG Serum or plasma creatinine measurement with calculation of estimated glomerular filtration rate 27 NRG Serum or plasma glucose measurement (mass/volume) 99 mg/dL 70-105 Serum or plasma calcium measurement (mass/volume) 9.3 mg/dL 8.5-10.1 Whole blood basic metabolic panel - 03/14/17 10:50 Serum or plasma sodium measurement (moles/volume) 137 mmol/L 135-145 Serum or plasma potassium measurement (moles/volume) 5.3 mmol/L 3.6-5.0 Serum or plasma chloride measurement (moles/volume) 105 mmol/L 98-107 Carbon dioxide 22 mmol/L 21-32 Serum or plasma anion gap determination (moles/volume) 10 mmol/L 5-14 Serum or plasma urea nitrogen measurement (mass/volume) 29 mg/dL 7-18 Serum or plasma creatinine measurement (mass/volume) 1.56 mg/dL 0.60-1.30 Serum or plasma urea nitrogen/creatinine mass ratio 19 NRG Serum or plasma creatinine measurement with calculation of estimated glomerular filtration rate 32 NRG Serum or plasma glucose measurement (mass/volume) 91 mg/dL 70-105 Serum or plasma calcium measurement (mass/volume) 9.8 mg/dL 8.5-10.1 Complete urinalysis with reflex to culture - 03/24/17 09:00 Urine color determination YELLOW NRG Urine clarity determination CLEAR NRG Urine pH measurement by test strip 5 5-9 Specific gravity of urine by test strip 1.015 1.016- 1.022 Urine protein assay by test strip, semi-quantitative 1+ NEGATIVE Urine glucose detection by automated test strip NEGATIVE NEGATIVE Erythrocytes detection in urine sediment by light microscopy NEGATIVE NEGATIVE Urine ketones detection by automated test strip NEGATIVE NEGATIVE Urine nitrite detection by test strip NEGATIVE NEGATIVE Urine total bilirubin detection by test strip NEGATIVE NEGATIVE Urine urobilinogen measurement by automated test strip (mass/volume) NORMAL NORMAL Urine leukocyte esterase detection by dipstick 1+ NEGATIVE Automated urine sediment erythrocyte count by microscopy (number/high power field) NONE NRG Automated urine sediment leukocyte count by microscopy (number/high power field ) [HPF] NRG Bacteria detection in urine sediment by light microscopy NEGATIVE NRG Squamous epithelial cells detection in urine sediment by light microscopy 5-10 NRG Crystals detection in urine sediment by light microscopy NONE NRG Casts detection in urine sediment by light microscopy NONE NRG Mucus detection in urine sediment by light microscopy NEGATIVE NRG Complete urinalysis with reflex to culture NO NRG Complete urinalysis with reflex to culture - 04/05/17 08:20 Urine color determination YELLOW NRG Urine clarity determination CLEAR NRG Urine pH measurement by test strip 5 5-9 Specific gravity of urine by test strip 1.020 1.016- 1.022 Urine protein assay by test strip, semi-quantitative 1+ NEGATIVE Urine glucose detection by automated test strip NEGATIVE NEGATIVE Erythrocytes detection in urine sediment by light microscopy 1+ NEGATIVE Urine ketones detection by automated test strip NEGATIVE NEGATIVE Urine nitrite detection by test strip NEGATIVE NEGATIVE Urine total bilirubin detection by test strip 2+ NEGATIVE Urine urobilinogen measurement by automated test strip (mass/volume) 1 mg/dL NORMAL Urine leukocyte esterase detection by dipstick 3+ NEGATIVE Automated urine sediment erythrocyte count by microscopy (number/high power field) RARE NRG Automated urine sediment leukocyte count by microscopy (number/high power field ) [HPF] NRG Bacteria detection in urine sediment by light microscopy TRACE NRG Squamous epithelial cells detection in urine sediment by light microscopy 10-25 NRG Crystals detection in urine sediment by light microscopy NONE NRG Casts detection in urine sediment by light microscopy PRESENT NRG Mucus detection in urine sediment by light microscopy NEGATIVE NRG Complete urinalysis with reflex to culture YES NRG Hyaline casts detection in urine sediment by light microscopy 25-50 NRG Automated blood complete blood count (hemogram) panel - 04/05/17 08:25 Blood leukocytes automated count (number/volume) 13.5 10*3/uL 4.3-11.0 Blood erythrocytes automated count (number/volume) 3.81 10*6/uL 4.35-5.85 Venous blood hemoglobin measurement (mass/volume) 10.8 g/dL 11.5-16.0 Blood hematocrit (volume fraction) 34 % 35-52 Automated erythrocyte mean corpuscular volume 88 [foz_us] 80-99 Automated erythrocyte mean corpuscular hemoglobin (mass per erythrocyte) 28 pg 25-34 Automated erythrocyte mean corpuscular hemoglobin concentration measurement ( mass/volume) 32 g/dL 32-36 Automated erythrocyte distribution width ratio 16.4 % 10.0-14.5 Automated blood platelet count (count/volume) 299 10*3/uL 130-400 Automated blood platelet mean volume measurement 11.5 [foz_us] 7.4-10.4 Comprehensive metabolic panel - 04/05/17 08:25 Serum or plasma sodium measurement (moles/volume) 134 mmol/L 135-145 Serum or plasma potassium measurement (moles/volume) 4.6 mmol/L 3.6-5.0 Serum or plasma chloride measurement (moles/volume) 98 mmol/L 98-107 Carbon dioxide 20 mmol/L 21-32 Serum or plasma anion gap determination (moles/volume) 16 mmol/L 5-14 Serum or plasma urea nitrogen measurement (mass/volume) 46 mg/dL 7-18 Serum or plasma creatinine measurement (mass/volume) 4.41 mg/dL 0.60-1.30 Serum or plasma urea nitrogen/creatinine mass ratio 10 NRG Serum or plasma creatinine measurement with calculation of estimated glomerular filtration rate 10 NRG Serum or plasma glucose measurement (mass/volume) 91 mg/dL 70-105 Serum or plasma calcium measurement (mass/volume) 9.8 mg/dL 8.5-10.1 Serum or plasma total bilirubin measurement (mass/volume) 0.5 mg/dL 0.1-1.0 Serum or plasma alkaline phosphatase measurement (enzymatic activity/volume) 150 U/L 40-136 Serum or plasma aspartate aminotransferase measurement (enzymatic activity/ volume) 17 U/L 5-34 Serum or plasma alanine aminotransferase measurement (enzymatic activity/volume ) 8 U/L 0-55 Serum or plasma protein measurement (mass/volume) 7.7 g/dL 6.4-8.2 Serum or plasma albumin measurement (mass/volume) 4.2 g/dL 3.2-4.5 Lipid 1996 panel - 04/05/17 08:25 Serum or plasma triglyceride measurement (mass/volume) 147 mg/dL <150 Serum or plasma cholesterol measurement (mass/volume) 231 mg/dL < 200 Serum or plasma cholesterol in HDL measurement (mass/volume) 66 mg/ dL 40-60 Cholesterol in LDL [mass/volume] in serum or plasma by direct assay 123 mg/dL 1-129 Serum or plasma cholesterol in VLDL measurement (mass/volume) 29 mg/ dL 5-40 PT panel in platelet poor plasma by coagulation assay - 04/05/17 08:25 Prothrombin time (PT) in platelet poor plasma by coagulation assay 32.6 s 12.2-14.7 INR in platelet poor plasma or blood by coagulation assay 3.2 0.8-1.4 Activated partial thromboplastin time (aPTT) in platelet poor plasma bycoagulation assay - 04/05/17 08:25 Activated partial thromboplastin time (aPTT) in platelet poor plasma bycoagulation assay 35 s 24-35 Encounters ACCT No. Visit Date/Time Discharge Status Pt. Type Provider Facility Loc./Unit Complaint [id number] 03/24/2017 07:00:00 03/24/2017 23:59:59 CLS Outpatient JAMEE VEE MD [facility] UTI [id number] 03/14/2017 07:00:00 03/14/2017 23:59:59 CLS Outpatient KAYE VENCES MD [facility] ANTICOAGULANT THERAPHY, CHF [id number] 02/13/2017 07:00:00 02/13/2017 23:59:59 CLS Outpatient KAYE VENCES MD [facility] Z79.01 CHF A-FIB [id number] 02/08/2017 07:14:00 02/08/2017 23:59:59 CLS Outpatient KAYE VENCES MD Via [facility] AF I48.2 [id number] 01/17/2017 09:39:00 01/17/2017 23:59:59 CLS Preadmit KAYE VENCES MD [facility] CHF/ANTI-COAG [id number] 12/21/2016 13:29:00 12/21/2016 23:59:59 CLS Outpatient JAMEE VEE MD [facility] [id number] 12/15/2016 10:52:00 12/15/2016 23:59:59 CLS Outpatient KAYE VENCES MD [facility] AF I48.2 [id number] 12/07/2016 09:47:00 12/07/2016 23:59:59 CLS Preadmit KAYE VENCES MD Via [facility] [id number] 11/23/2016 10:00:00 11/23/2016 23:59:59 CLS Outpatient KAYE VENCES MD [facility] CHF/ANTICOG [id number] 10/27/2016 12:12:00 10/27/2016 23:59:59 CLS Outpatient KAYE VENCES MD [facility] ANTI COAG THERAPY, HTN [id number] 10/19/2016 10:00:00 10/19/2016 23:59:59 CLS Preadmit KAYE VENCES MD [facility] AF I48.2 [id number] 10/13/2016 10:00:00 10/13/2016 23:59:59 CLS Outpatient KAYE VENCES MD [facility] HEART FAILURE, ANTICOAG THERAPY [id number] 10/11/2016 13:00:00 10/11/2016 23:59:59 CLS Preadmit KAYE VENCES MD [facility] AF I48.2 [id number] 10/06/2016 09:00:00 10/06/2016 23:59:59 CLS Outpatient JAMEE VEE MD [facility] CHF [id number] 10/03/2016 10:13:00 10/03/2016 23:59:59 CLS Outpatient JAMEE VEE MD [facility] DEHYDRATION [id number] 09/30/2016 13:03:00 09/30/2016 23:59:59 CLS Outpatient JAMEE VEE MD [facility] HYPERKALEMIA [id number] 09/29/2016 16:56:00 09/29/2016 23:59:59 CLS Outpatient CRESCENCIO KEEN APRN [facility] CHEST PAIN,FATIGUE [id number] 09/26/2016 16:45:00 09/26/2016 23:59:59 CLS Outpatient KAYE VENCES MD [facility] [id number] 09/12/2016 15:35:00 09/12/2016 23:59:59 CLS Outpatient JAMEE VEE MD [facility] CHF, ANTICOAG THERAPY [id number] 08/16/2016 12:30:00 08/16/2016 23:59:59 CLS Outpatient KAYE VENCES MD [facility] CHF, ANTICOAG THERAPY [id number] 07/19/2016 11:58:00 07/19/2016 23:59:59 CLS Outpatient KAYE VENCES MD [facility] A FIB, CHF [id number] 06/15/2016 15:30:00 06/15/2016 23:59:59 CLS Outpatient KAYE VENCES MD [facility] ANTICOAG THERAPY [id number] 05/31/2016 09:55:00 05/31/2016 23:59:59 CLS Outpatient JAMEE VEE MD [facility] CHF, ANTICOAG THERAPY [id number] 05/23/2016 11:23:00 05/23/2016 23:59:59 CLS Outpatient JAMEE VEE MD [facility] ANTICOAG THERAPY [id number] 05/17/2016 10:41:00 05/17/2016 23:59:59 CLS Outpatient JAMEE VEE MD [facility] HTN,ANEMIA,A-FIB [id number] 04/27/2016 11:06:00 04/27/2016 23:59:59 CLS Outpatient JAMEE VEE MD [facility] CHF [id number] 03/14/2016 14:42:00 03/14/2016 23:59:59 CLS Outpatient KAYE VENCES MD [facility] ANTICOAG THERAPY [id number] 03/14/2016 14:41:00 03/14/2016 23:59:59 CLS Outpatient JAMEE VEE MD [facility] HTN, HEART DISEASE W/ HEART FAILURE [id number] 03/02/2016 16:11:00 03/02/2016 23:59:59 CLS Outpatient JAMEE VEE MD [facility] ANTICOAG THERAPY, CHF [id number] 02/24/2016 10:15:00 02/24/2016 23:59:59 CLS Outpatient JAMEE VEE MD [facility] ANEMIA, LEG CRAMPS [id number] 02/18/2016 16:34:00 02/18/2016 23:59:59 CLS Outpatient JAMEE VEE MD [facility] LEG CRAMPS, HTN, HEART DISEASE [id number] 02/02/2016 11:25:00 02/02/2016 23:59:59 CLS Outpatient HEATH BOLDEN Via [facility] PERIPHERAL EDEMA,AF,AR,CAD,HTN [id number] 02/02/2016 10:30:00 02/02/2016 23:59:59 CLS Outpatient JAMEE VEE MD [facility] HTN HEART DISEASE WITH HEART FAILURE [id number] 02/01/2016 11:15:00 02/01/2016 23:59:59 CLS Outpatient KAYE VENCES MD [facility] ANITCOAGULANT THERAPY [id number] 01/04/2016 11:47:00 01/04/2016 23:59:59 CLS Outpatient JAMEE VEE MD [facility] HYPOKALEMIA, ANTICOAG THERPAY [id number] 01/01/2016 11:02:00 01/01/2016 23:59:59 CLS Outpatient JAMEE VEE MD [facility] HYPOKALEMIA [id number] 12/28/2015 13:18:00 12/28/2015 23:59:59 CLS Outpatient JAMEE VEE MD [facility] HTN, HEART DISEASE WITH HEART FAILURE [id number] 12/07/2015 11:11:00 12/07/2015 23:59:59 CLS Outpatient KAYE VENCES MD [facility] ANTICOAG THERAPY [id number] 11/30/2015 11:18:00 11/30/2015 23:59:59 CLS Outpatient JAMEE VEE MD [facility] LOW POTASSIUM LEVEL [id number] 11/19/2015 11:56:00 11/19/2015 23:59:59 CLS Outpatient JAMEE VEE MD [facility] CHF [id number] 11/13/2015 11:54:00 11/13/2015 23:59:59 CLS Outpatient JAMEE VEE MD [facility] HEART FAILURE [id number] 11/13/2015 11:50:00 11/13/2015 23:59:59 CLS Outpatient KAYE VENCES MD [facility] ANTICOAG THERPAY [id number] 10/30/2015 10:00:00 10/30/2015 23:59:59 CLS Outpatient JAMEE VEE MD [facility] CHF [id number] 10/26/2015 10:10:00 10/26/2015 23:59:59 CLS Outpatient JAMEE VEE MD Via [facility] [id number] 10/21/2015 10:59:00 10/21/2015 23:59:59 CLS Outpatient JAMEE VEE MD [facility] CHF [id number] 10/12/2015 12:42:00 10/12/2015 23:59:59 CLS Outpatient JAMEE VEE MD [facility] ANTICOAG THERAPY [id number] 09/23/2015 16:58:00 09/23/2015 23:59:59 CLS Outpatient JAMEE VEE MD [facility] UTI [id number] 09/15/2015 10:32:00 09/15/2015 23:59:59 CLS Outpatient KAYE VENCES MD [facility] ANTICOAG THERAPY [id number] 08/18/2015 11:18:00 08/18/2015 23:59:59 CLS Outpatient KAYE VENCES MD [facility] ANTICOAG THERAPY [id number] 08/03/2015 13:33:00 08/03/2015 23:59:59 CLS Outpatient IRAM LANDEROS MD [facility] ANTICOAG THERAPY [id number] 07/20/2015 11:13:00 07/20/2015 23:59:59 CLS Outpatient KAYE VENCES MD [facility] ANTICOAG THERAPY [id number] 07/16/2015 10:46:00 07/16/2015 23:59:59 CLS Outpatient KAYE VENCES MD [facility] ANTICOAG THERAPY [id number] 07/13/2015 12:36:00 07/13/2015 23:59:59 CLS Outpatient KAYE VENCES MD [facility] ANTICOAG THERAPY [id number] 07/06/2015 06:53:00 07/06/2015 10:00:00 DIS Outpatient PAM ROBLEDO MD Via [facility] ANEMIA,BLOOD IN STOOL [id number] 07/01/2015 05:35:00 07/01/2015 10:49:00 DIS Outpatient PAM ROBLEDO MD [facility] PREOP ANEMIA,BLOOD IN STOOL [id number] 06/30/2015 11:49:00 06/30/2015 23:59:59 CLS Outpatient HEATH BOLDEN [facility] CARD AF,AR,CAD, HTN [id number] 06/22/2015 16:30:00 06/22/2015 23:59:59 CLS Outpatient JAMEE VEE MD [facility] ANEMIA, POSIBLE GI BLEED [id number] 06/15/2015 17:28:00 06/15/2015 23:59:59 CLS Outpatient JAMEE VEE MD [facility] POSSIBLE GI BLEED [id number] 06/12/2015 12:22:00 06/12/2015 23:59:59 [facility] [id number] 06/11/2015 15:34:00 06/11/2015 23:59:59 CLS Preadmit JAMEE VEE MD [facility] ANEMIA,POSITIVE STOOL [id number] 06/10/2015 15:00:00 06/10/2015 23:59:59 CLS Outpatient JAMEE VEE MD [facility] CHF, ANEMIA [id number] 06/09/2015 15:00:00 06/09/2015 23:59:59 CLS Outpatient JAMEE VEE MD [facility] R/O GI BLEED [id number] 05/05/2015 11:05:00 05/05/2015 23:59:59 CLS Outpatient JAMEE VEE MD [facility] ANTI COGULANT THERAPY [id number] 04/22/2015 11:07:00 04/22/2015 23:59:59 CLS Outpatient JAMEE VEE MD [facility] ANTICOAG THERAPY [id number] 04/09/2015 13:50:00 04/09/2015 23:59:59 CLS Outpatient JAMEE VEE MD [facility] ANTICOAG THERAPY [id number] 04/06/2015 15:20:00 04/06/2015 23:59:59 CLS Outpatient JAMEE VEE MD [facility] ANTICOAG THERAPY [id number] 03/12/2015 14:17:00 03/12/2015 23:59:59 CLS Outpatient JAMEE VEE MD [facility] ANTICOAG THERAPY [id number] 02/10/2015 13:13:00 02/10/2015 23:59:59 CLS Outpatient JAMEE VEE MD [facility] POSSIBLE UTI [id number] 01/28/2015 08:09:00 01/28/2015 23:59:59 CLS Outpatient HEATH BOLDEN Via [facility] CARD AF,AR,HTN, [id number] 01/16/2015 10:25:00 01/16/2015 23:59:59 CLS Outpatient HEATH BOLDEN [facility] RAD AF,AR,HTN [id number] 12/30/2014 14:03:00 12/30/2014 23:59:59 CLS Outpatient JAMEE VEE MD [facility] CHF, EDEMA [id number] 12/19/2014 11:28:00 12/19/2014 23:59:59 CLS Outpatient KAYE VENCES MD [facility] EDEMA, FLUID OVERLOAD [id number] 12/12/2014 10:00:00 12/12/2014 23:59:59 CLS Outpatient JAMEE VEE MD [facility] DIARHEA [id number] 12/01/2014 17:17:00 12/08/2014 11:45:00 DIS Inpatient JAMEE VEE MD [facility] SURGICAL SWB LEUKOCYTOSIS BRONCHITIS CHI UNSTABLE GAIT [id number] 11/17/2014 18:28:00 12/01/2014 17:12:00 DIS Inpatient NAHUN BORJAS, JORDAN R [facility] SURGICAL LEUKOCYTOSIS BRONCHITIS CHI UNSTABLE GAIT [id number] 11/12/2014 15:30:00 11/12/2014 23:59:59 CLS Outpatient JAMEE VEE MD [facility] ANTICOAGULANT THERAPY [id number] 11/07/2014 10:14:00 11/07/2014 23:59:59 CLS Outpatient JAMEE VEE MD [facility] RAD 787.22,COUGH [id number] 10/27/2014 15:48:00 10/27/2014 23:59:59 CLS Outpatient JAMEE VEE MD [facility] ANTICOAG THERAPY [id number] 10/21/2014 14:11:00 10/21/2014 23:59:59 CLS Outpatient JAMEE VEE MD [facility] ANTICOAG THERAPY [id number] 10/20/2014 14:45:00 10/20/2014 23:59:59 CLS Outpatient JAMEE VEE MD [facility] ANTICOAG THERAPY [id number] 10/20/2014 11:06:00 10/20/2014 23:59:59 CLS Outpatient KATHYA SMITH [facility] RAD OROPHARNGEAL DSYPHAGIA [id number] 10/16/2014 15:30:00 10/16/2014 23:59:59 CLS Outpatient JAMEE VEE MD [facility] ANTICOAG THERAPY [id number] 10/14/2014 11:24:00 10/14/2014 23:59:59 CLS Outpatient KATHYA SMITH [facility] RAD COUGH,FALL-BACK PAIN [id number] 06/30/2014 00:08:00 06/30/2014 23:59:59 CLS Preadmit NATY MONTIEL MD [facility] LAB A-FIB [id number] 03/31/2014 06:34:00 06/29/2014 00:01:00 DIS Outpatient NATY MONTIEL MD [facility] LAB A-FIB [id number] 03/03/2014 07:13:00 03/30/2014 00:01:00 DIS Outpatient NATY MONTIEL MD [facility] LAB A-FIB [id number] 03/25/2014 10:44:00 03/25/2014 23:59:59 CLS Outpatient NATY MONTIEL MD [facility] RAD RT RHONCHI [id number] 10/30/2013 06:40:00 12/29/2013 00:01:00 DIS Outpatient NATY MONTIEL MD [facility] LAB A-FIB [id number] 08/28/2013 06:13:00 09/26/2013 00:01:00 DIS Outpatient NATY MONTIEL MD [facility] LAB A-FIB [id number] 09/11/2013 06:19:00 09/11/2013 23:59:59 CLS Outpatient NATY MONTIEL MD [facility] LAB HYPERTENTION, HYPERLIPIDEMIA [id number] 08/11/2013 13:38:00 08/11/2013 23:59:59 CLS Outpatient [id number] 05/28/2013 16:25:00 06/27/2013 00:01:00 DIS Outpatient NATY MONTIEL MD [facility] LAB A-FIB [id number] 06/13/2013 09:01:00 06/13/2013 23:59:59 CLS Outpatient NATY MONTIEL MD [facility] RAD COUGH [id number] 01/29/2013 05:55:00 03/27/2013 00:01:00 DIS Outpatient NATY MONTIEL MD [facility] LAB A-FIB [id number] 11/27/2012 05:41:00 12/09/2012 00:01:00 DIS Outpatient NATY MONTIEL MD [facility] LAB A-FIB [id number] 11/27/2012 05:33:00 11/27/2012 23:59:59 CLS Outpatient NATY MONTIEL MD [facility] LAB HYPERTENSION,CHF [id number] 10/27/2012 07:13:00 10/27/2012 08:48:00 DIS Emergency EDITH AUGUSTINE Deangelo ROONEYN Via [facility] ER L HAND INJURY [id number] 08/27/2012 05:59:00 09/05/2012 00:01:00 DIS Outpatient NATY MONTIEL MD [facility] LAB A-FIB [id number] 08/13/2012 06:12:00 08/13/2012 23:59:59 CLS Outpatient NATY MONTIEL MD [facility] LAB HTN,HYPOTHYROIDISM [id number] 04/05/2017 07:55:00 ACT Outpatient HEATH BOLDEN [facility] CATH ABN STRESS TEST,CP,HTN [id number] 04/06/2015 07:47:00 Document Registration [id number] 03/25/2014 10:44:00 Document Registration [id number] 03/25/2014 10:44:00 Document Registration [id number] 05/24/2012 06:31:00 Document Registration [id number] 05/10/2012 06:03:00 Document Registration [id number] 02/23/2012 06:19:00 Document Registration [id number] 11/21/2011 06:28:00 Document Registration [id number] 09/24/2011 09:20:00 Document Registration [id number] 08/29/2011 14:38:00 Document Registration [id number] 08/18/2011 06:56:00 Document Registration [id number] 08/08/2011 10:23:00 Document Registration [id number] 07/21/2011 08:26:00 Document Registration [id number] 06/09/2011 07:20:00 Document Registration [id number] 05/16/2011 16:40:00 Document Registration [id number] 02/24/2011 08:49:00 Document Registration [id number] 01/05/2011 10:57:00 Document Registration [id number] 12/30/2010 14:25:00 Document Registration [id number] 10/04/2010 16:13:00 Document Registration [id number] 05/05/2010 07:05:00 Document Registration [id number] 04/28/2009 06:53:00 Document Registration [id number] 03/19/2009 08:44:00 Document Registration [id number] 10/15/2008 07:28:00 Document Registration [id number] 10/09/2008 07:18:00 Document Registration [id number] 07/22/2008 14:24:00 Document Registration
== END | disposition home or self-care (01) ==
LOC: CATH 07:55
PROVIDERS: ATTEND Physician Assistant
DX: I25.10 Atherosclerotic heart disease of native coronary artery without angina pectoris (principal); R82.90 Unspecified abnormal findings in urine; Z79.01 Long term (current) use of anticoagulants; Z53.9 Procedure and treatment not carried out, unspecified reason; Z11.2 Encounter for screening for other bacterial diseases
CPT/HCPCS: 36415; 71045; 80053; 80061; 81000; 85027; 85610; 85730; 87081; 87088

== ENCOUNTER 2017-04-18 07:00 | Outpatient (RCR) | payer MEDICARE ==
[~2017-04-18 07:00] MED LIST changes: -HEParin (CATH LAB) 0 ML IV ONE; -LIDOCAINE 1% INJ 50 ML (XYLOCAINE) VIAL ONE; -NS IV 1000 ML 0 ML ONE; -NS IV 1000 ML 1,000 ML IV SCH; -NS IV 1000 ML 1,000 ML ONE; -WARF1TAB6 PO; +WARF1TAB82 PO; +WARF3TAB56 PO; -WARF3TAB6 PO
[2017-04-18 13:34] LABS: BASOPHILS # (AUTO) 0.1 10^3/uL (0.0-0.1); BASOPHILS % (AUTO) 1 % (0-10); EOSINOPHILS # (AUTO) 0.1 10^3/uL (0.0-0.3); EOSINOPHILS % (AUTO) 1 % (0-10); HEMATOCRIT 34 % (35-52); HEMOGLOBIN 10.8 G/DL (11.5-16.0); LYMPHOCYTES # (AUTO) 1.9 X 10^3 (1.0-4.0); LYMPHOCYTES % (AUTO) 19 % (12-44); MEAN CORPUSCULAR HEMOGLOBIN 28 PG (25-34); MEAN CORPUSCULAR HGB CONC 32 G/DL (32-36); MEAN CORPUSCULAR VOLUME 88 FL (80-99); MEAN PLATELET VOLUME 12.5 FL (7.4-10.4); MONOCYTES # (AUTO) 1.4 X 10^3 (0.0-1.0); MONOCYTES % (AUTO) 14 % (0-12); NEUTROPHILS # (AUTO) 6.8 X 10^3 (1.8-7.8); NEUTROPHILS % (AUTO) 66 % (42-75); PLATELET COUNT 261 10^3/uL (130-400); RED BLOOD COUNT 3.86 10^6/uL (4.35-5.85); RED CELL DISTRIBUTION WIDTH 16.7 % (10.0-14.5); WHITE BLOOD COUNT 10.3 10^3/uL (4.3-11.0)
[2017-04-18 13:44] LABS: ALBUMIN 4.2 GM/DL (3.2-4.5); CREATININE SERUM 1.6 MG/DL (0.60-1.30); PHOSPHORUS 2.9 MG/DL (2.3-4.7); POTASSIUM 4.7 MMOL/L (3.6-5.0)
[2017-04-18 13:46] LABS: INR 1.8 (0.8-1.4); PROTHROMBIN TIME PATIENT 21.3 SEC (12.2-14.7)
[2017-04-18 13:53] LABS: URINE CREATININE FOR RATIO 23 MG/DL (30-125); URINE PROTEIN FOR RATIO ONLY < 6 MG/DL (6-12)
[2017-05-10] MEDS ORDERED: ALPR0.25 PO (10:14)
[2017-05-10] MEDS ORDERED: BUSP10TA95 PO (10:14)
[2017-05-10] MEDS ORDERED: MECL-124 PO (10:14)
[2017-05-15] MEDS ORDERED: WARF2.5T PO (09:20)
== END 2017-07-17 | disposition home or self-care (01) ==
LOC: HH 07:00 → EDSTATUS 13:35
PROVIDERS: ATTEND Internal Medicine Nephrology
DX: N19 Unspecified kidney failure (principal); Z79.01 Long term (current) use of anticoagulants
CPT/HCPCS: 80069; 82570; 84156; 85025; 85610

== ENCOUNTER → 2017-05-10 | Day surgery (SDC) | payer MEDICARE ==
[~2017-05-10] VITALS: Ht 160 cm; Wt 63.0 kg
[~2017-05-10] MED LIST changes: +ALPR0.25 PO; +HEParin (CATH LAB) 0 ML IV ONE; +MECL-124 PO; +NS IV 1000 ML 1,000 ML IV SCH; +NS IV 1000 ML 1,000 ML ONE
[2017-05-10 09:50] VITALS: BP 167/70
[2017-05-10 09:53] LABS: HEMOGLOBIN 10.9 G/DL (11.5-16.0); MEAN PLATELET VOLUME 11.3 FL (7.4-10.4); RED BLOOD COUNT 3.99 10^6/uL (4.35-5.85); RED CELL DISTRIBUTION WIDTH 16.6 % (10.0-14.5)
[2017-05-10 09:53] LABS: BILIRUBIN,URINE NEGATIVE (NEGATIVE); CLARITY,URINE CLEAR; COLOR,URINE YELLOW; GLUCOSE, URINE (UA) NEGATIVE (NEGATIVE); KETONES,URINE NEGATIVE (NEGATIVE); LEUKOCYTE ESTERASE ,URINE 1+ (NEGATIVE); NITRITE,URINE NEGATIVE (NEGATIVE); PH,URINE 5 (5-9); PROTEIN,URINE 2+ (NEGATIVE); UROBILINOGEN,URINE NORMAL (NORMAL)
[2017-05-10 10:02] LABS: INR 7.2 (0.8-1.4); PROTHROMBIN TIME PATIENT 60.9 SEC (12.2-14.7)
[2017-05-10 10:05] LABS: BACTERIA,URINE TRACE /HPF; WBC,URINE RARE /HPF
[2017-05-10 10:05] LABS: ALBUMIN 4.3 GM/DL (3.2-4.5); BILIRUBIN,TOTAL 0.4 MG/DL (0.1-1.0); CALCIUM 9.9 MG/DL (8.5-10.1); CREATININE SERUM 1.21 MG/DL (0.60-1.30); POTASSIUM 4.2 MMOL/L (3.6-5.0); TOTAL PROTEIN 7.3 GM/DL (6.4-8.2)
--- NOTE | 2017-05-10 10:23 | Diagnostic Imaging Report ---
Portable erect AP chest at 1001 hours. INDICATION: Chest pain. FINDINGS: The cardiomegaly and chronic pulmonary changes evident on the prior exam of 04/05/17 are again visualized and no different. There is still no sign of failure, pneumonia or pleural effusion to indicate an acute abnormality. The mediastinum is not widened. The osseous structures are intact. IMPRESSION: There is cardiomegaly and chronic pulmonary disease, but there is no evidence for an acute cardiopulmonary abnormality. Dictated by: Dictated on workstation # [id number]
== END ==
LOC: CATH 08:33
PROVIDERS: ATTEND Internal Medicine Cardiovascular Disease
DX: I25.10 Atherosclerotic heart disease of native coronary artery without angina pectoris (principal); R94.39 Abnormal result of other cardiovascular function study; R07.9 Chest pain, unspecified; N18.9 Chronic kidney disease, unspecified; Z11.2 Encounter for screening for other bacterial diseases; Z53.9 Procedure and treatment not carried out, unspecified reason; Z79.01 Long term (current) use of anticoagulants
CPT/HCPCS: 36415; 71045; 80053; 80061; 81000; 85027; 85610; 85730; 87081; 93005

== ENCOUNTER 2017-05-15 07:27 | Day surgery (SDC) | payer MEDICARE ==
[~2017-05-15] VITALS: Ht 160 cm; Wt 63.0 kg
[2017-05-15] VITALS (10 sets, daily range): BP systolic 134–176; BP diastolic 57–73
[~2017-05-15 07:27] MED LIST changes: -HEParin (CATH LAB) 0 ML IV ONE; -NS IV 1000 ML 1,000 ML IV SCH; -NS IV 1000 ML 1,000 ML ONE
[2017-05-15] MEDS ORDERED: HEParin (CATH LAB) 2,000 ML IV ONE (07:30)
[2017-05-15] MEDS ORDERED: NS IV 1000 ML 1,000 ML IV SCH ×3 (07:30→09:17)
[2017-05-15 08:04] LABS: HEMOGLOBIN 10.4 G/DL (11.5-16.0); MEAN PLATELET VOLUME 11.1 FL (7.4-10.4); RED BLOOD COUNT 3.79 10^6/uL (4.35-5.85); RED CELL DISTRIBUTION WIDTH 16.5 % (10.0-14.5); WHITE BLOOD COUNT 11.1 10^3/uL (4.3-11.0)
[2017-05-15] MEDS ORDERED: LIDOCAINE 1% INJ 50 ML (XYLOCAINE) VIAL ONE (08:10)
[2017-05-15 08:20] LABS: INR 1.4 (0.8-1.4); PROTHROMBIN TIME PATIENT 17.4 SEC (12.2-14.7)
[2017-05-15 08:25] LABS: ALBUMIN 4.3 GM/DL (3.2-4.5); BILIRUBIN,TOTAL 0.6 MG/DL (0.1-1.0); CREATININE SERUM 1.25 MG/DL (0.60-1.30); POTASSIUM 4.6 MMOL/L (3.6-5.0); TOTAL PROTEIN 7.4 GM/DL (6.4-8.2)
[2017-05-15] MEDS ORDERED: fentaNYL INJECTION 100 MCG/2 ML AMP ONE (08:36)
[2017-05-15] MEDS ORDERED: MIDAZOLAM 2 MG/2 ML (VERSED) VIAL ONE (08:36)
--- NOTE | 2017-05-15 08:49 | Cardiac Procedure Note-CS/ASA ---
Pre-Procedure Note Pre-Op Procedure Note H&P Reviewed The H&P was reviewed, patient examined and no changes noted. Date H&P Reviewed: May 15, 2017 Time H&P Reviewed: 08:49 Conscious Sedation Pre-Proced Time Reviewed: 08:49 ASA Class: 3 Airway Mallampati Classification: ([place] appropriate class) I. II. III, IV Lungs Heart ASA score ASA 1: a normal healthy patient ASA 2: a patient with a mild systemic disease (mid diabetes, controlled hypertension, obesity x ASA 3: a patient with a severe systemic disease that limits activity (angina , COPD, prior Myocardial infarction) ASA 4: a patient with an incapacitating disease that is a constant threat to life (CHF, renal failure) ASA 5: a moribund patient not expected to survive 24 hrs. (ruptured aneurysm) ASA 6: a declared brain patient whose organs are being harvested. For emergent operations, add the letter E after the classification Grade 3 Sedation Plan: Analgesia, Amnesia, Plan communicated to team members, Discussed options with patient/fam, Discussed risks with patient/fam Note The patient is an appropriate candidate to undergo the planned procedure, sedation, and anesthesia. The patient immediately re-assessed prior to indication. KAYE VENCES MD May 15, 2017 08:49
[2017-05-15] MEDS ORDERED: meTOprolol 5 MG/5 ML (LOPRESSOR) VIAL ONE (09:10)
[2017-05-15] MEDS ORDERED: WARF2.5T PO (09:20)
--- NOTE | 2017-05-15 09:21 | Discharge Inst-Post CATH ---
Discharge Inst-CATH Post Cardiac Cath D/C Inst Follow Up/Plan Start Coumadin at 2.5 mg daily PT/INR on May 18, [address] Echevarria's office in 2-4 weeks CARDIAC CATH DISCHARGE INSTRUCTIONS *Hold Metformin for 48 hours post heart cath. ACTIVITY * Go Home directly and rest. * Limit activity of the leg (or wrist if it was used) for 7 days including aerobics, swimming, jogging, bicycling, etc. * Restrict stair-climbing for 7 days if possible, if not, climb up with your non -cath leg, then bring together on the same step. * Avoid lifting, pushing, pulling or excessive movement of the affected extremity for 7 days. * Customary sexual activity may be resumed after 2 days-use caution not to use a position that strains or causes pain to the affected extremity. * No driving for 24 hours. * NO SMOKING. * Avoid straining for bowel movements for 7 days. * Gentle walking on level ground is allowed. * Returning to work will depend on the type of procedure and the results. Your doctor will discuss this with you. CALL YOUR DOCTOR FOR ANY OF THE FOLLOWING: *If bleeding from the puncture site occurs- Apply gentle pressure to site with clean cloth and call your doctor or EMS. * If a knot or lump forms under the skin, increases in size, or causes pain. * If bruising appears to be worsening or moving further down your leg instead of disappearing. * Temperature above 101 F. CARE OF YOUR GROIN INCISION; * Bruising or purple discoloration of the skin near the puncture site is common. * You may shower only, no bathtub bathing for 5 days. Be careful to avoid slipping as your leg may feel stiff. * If a closure device was used on your femoral artery, please see the attached guide regarding care of the device and your leg. * REMOVE the dressing from your groin the next day after your procedure in the shower. CARE OF YOUR WRIST INCISION; * Bruising or purple discoloration of the skin near the puncture site is common. * You may shower. * DO NOT submerge wrist. * Remove dressing in 24 hours. KAYE ECHEVARRIA MD May 15, 2017 9:21 am
--- NOTE | 2017-05-15 09:25 | Cardiac Cath Report ---
Cardiac Cath Report Physician (s)/Show Host/Hostess (s) Physician KAYE VENCES MD Pre-Procedure Diagnosis Pre-Procedure Diagnosis: Coronary artery disease Post-Procedure Note Procedure Start Date: May 15, 2017 Name of Procedure: Left heart catheterization Left ventricular pressure Findings/Procedure Note PROCEDURE NOTE: After explaining the procedure to the patient, all pros and cons were explained, all questions were answered. The patient signed the consent and then she was placed on the cardiac catheterization laboratory. The patient was placed on the cardiac catheterization laboratory. Groin was prepped SL fashion local anesthesia was used. Sheath placed in the right radial artery. Kassy right and left catheter were used to access the coronary system. JR was used to access the left ventricular cavity. Left ventriculogram was not done, pressure was measured At the end of the procedure the sheath was removed. Closure device was used FINDINGS: Hemodynamics LV 180/25, end-diastolic pressure of 25 Aorta 179/71 mean of 111 ANATOMY: Left Main is free of obstructive disease Left Anterior Descending has 40-50 percent stenosis proximally, small vessel disease distally nonobstructive disease Left Circumflex is dominant artery with mild disease obstructive disease Right Coronory Artery is small nondominant artery with nonobstructive disease LV Gram was not done, pressure was measured CONCLUSION: 1. Mild to moderate disease in the proximal and distal LAD nonobstructive disease 2. Mild disease in the circumflex and right coronary artery nonobstructive disease 3. Severe hypertension, elevated liver and trigger end-diastolic pressure due to hypertensive heart disease DISCUSSION AND RECOMMENDATION: I will continue maximizing medical therapy no intervention is were noted Anesthesia Type: Conscious Sedation Estimated blood loss (mL): 5 ml Contrast Amount: 14 ml Total Radiation Dose: 185 mGy Post-Procedure Diagnosis Post-operative diagnosis: Coronary artery disease Hypertension Hypertensive heart disease Hyperlipidemia Atrial fibrillation KAYE VENCES MD May 15, 2017 9:25 am
[2017-05-15] MEDS ORDERED: PATIENT MAY USE OWN MEDS, ALL PO SCH (09:30)
== END 2017-05-15 15:30 | disposition home or self-care (01) ==
LOC: CATH 07:27 → SURG 09:35 → CATH 15:30
PROVIDERS: ATTEND Internal Medicine Cardiovascular Disease
DX: I25.10 Atherosclerotic heart disease of native coronary artery without angina pectoris (principal); Z11.2 Encounter for screening for other bacterial diseases; I11.9 Hypertensive heart disease without heart failure; E78.5 Hyperlipidemia, unspecified; I48.2 Chronic atrial fibrillation; N18.9 Chronic kidney disease, unspecified; I35.1 Nonrheumatic aortic (valve) insufficiency; Z79.899 Other long term (current) drug therapy; Z79.01 Long term (current) use of anticoagulants; F41.9 Anxiety disorder, unspecified; I27.20 Pulmonary hypertension, unspecified; I65.23 Occlusion and stenosis of bilateral carotid arteries
CPT/HCPCS: 36415; 80053; 85027; 85610; 85730; 87081; 93458

== ENCOUNTER → 2017-05-18 | Outpatient (CLI) | payer MEDICARE ==
[~2017-05-18] MED LIST changes: +WARF2.5T PO
[2017-05-18 11:09] LABS: INR 1.4 (0.8-1.4)
== END ==
LOC: HH 08:00
PROVIDERS: ATTEND Internal Medicine Cardiovascular Disease
DX: Z51.81 Encounter for therapeutic drug level monitoring (principal); Z79.01 Long term (current) use of anticoagulants
CPT/HCPCS: 85610

== ENCOUNTER → 2017-05-29 | Outpatient (CLI) | payer MEDICARE ==
[2017-05-29 12:38] LABS: INR 1.8 (0.8-1.4); PROTHROMBIN TIME PATIENT 20.7 SEC (12.2-14.7)
== END ==
LOC: HH 08:00
PROVIDERS: ATTEND Internal Medicine Cardiovascular Disease
DX: Z51.81 Encounter for therapeutic drug level monitoring (principal); Z79.01 Long term (current) use of anticoagulants
CPT/HCPCS: 85610

== ENCOUNTER → 2017-06-12 | Outpatient (CLI) | payer MEDICARE ==
[2017-06-12 12:27] LABS: CREATININE SERUM 1.08 MG/DL (0.60-1.30); POTASSIUM 4.4 MMOL/L (3.6-5.0)
[2017-06-12 12:28] LABS: CALCIUM 9.9 MG/DL (8.5-10.1)
[2017-06-12 12:29] LABS: INR 2.2 (0.8-1.4); PROTHROMBIN TIME PATIENT 24.4 SEC (12.2-14.7)
== END ==
LOC: HH 08:00
PROVIDERS: ATTEND Internal Medicine Cardiovascular Disease
DX: I50.9 Heart failure, unspecified (principal); I48.91 Unspecified atrial fibrillation; Z79.01 Long term (current) use of anticoagulants
CPT/HCPCS: 80048; 85610

== ENCOUNTER → 2017-06-15 | Outpatient (CLI) | payer MEDICARE ==
--- NOTE | 2017-06-15 15:46 | Diagnostic Imaging Report ---
INDICATION: Injury to the left foot and ankle. TIME OF EXAM: 2:55 PM FINDINGS: Diffuse demineralization is noted. Ankle mortise is maintained. Talar dome is smooth. No definite fracture or dislocation is seen. There is moderate soft tissue swelling about the medial and lateral ankle. IMPRESSION: Demineralization and soft tissue swelling. No acute bony abnormality is detected. Dictated by: Dictated on workstation # [id number]
== END ==
LOC: RAD 14:22
PROVIDERS: ATTEND Internal Medicine Cardiovascular Disease
DX: M81.0 Age-related osteoporosis without current pathological fracture (principal); M79.89 Other specified soft tissue disorders; I35.1 Nonrheumatic aortic (valve) insufficiency; I51.7 Cardiomegaly; I25.10 Atherosclerotic heart disease of native coronary artery without angina pectoris; R09.89 Other specified symptoms and signs involving the circulatory and respiratory systems; I10 Essential (primary) hypertension; I34.0 Nonrheumatic mitral (valve) insufficiency; I45.10 Unspecified right bundle-branch block
CPT/HCPCS: 73600

== ENCOUNTER 2017-07-10 15:55 | Emergency (ER) | payer MEDICARE ==
[~2017-07-10] VITALS: Ht 152.4 cm; Wt 49.9 kg
--- NOTE | 2017-07-10 16:07 | ED Chest Pain ---
General Stated Complaint: CP Source: patient, EMS, old records Exam Limitations: no limitations History of Present Illness Date Seen by Provider: July 10, 2017 Time Seen by Provider: 15:45 Initial Comments This young lady presents to the ER by EMS with a chief complaint of 2-3 days now intermittent chest pain centered over the left breast which is presently a 2 out of 10. She says it gets a little worse than this for times but not much. She is not having any shortness of breath, cough, nausea, chills, radiation of pain anywhere, sweats or history of coronary artery disease. She does have a history of CHF with some progressively worsening swelling of bilateral lower extremities over the last 1-2 weeks. She takes metolazone per records. She had a heart catheter recently that was she was told did not need any intervention at that time. She's not had any hemoptysis, pain in her calves or redness. She denies any recent surgeries or prolonged periods of immobilization. She does not smoke cigarettes or have diabetes. EMS gave the patient 324 mg aspirin on route but experienced problems with her 12-lead EKG on route and were unable to obtain one so they did not give any nitroglycerin. She is on warfarin for her atrial fibrillation. Allergies and Home Medications Allergies Coded Allergies: Sulfa (Sulfonamide Antibiotics) (Verified Allergy, Unknown, 12/01/14) Home Medications Alprazolam 0.25 Mg Tablet, 0.25 MG PO TID PRN for ANXIETY, (Reported) Buspirone HCl 10 Mg Tablet, 10 MG PO TID, (Reported) Cyanocobalamin 1,000 Mcg/Ml Inj, 1,000 MCG IJ MONTHLY, (Reported) Diltiazem HCl 360 Mg Cap.er.24h, 360 MG PO DAILY, (Reported) Docusate Sodium 100 Mg Tablet, 100 MG PO PRN PRN for CONSTIPATION, (Reported) Escitalopram Oxalate 5 Mg Tablet, 5 MG PO HS, (Reported) Furosemide 40 Mg Tablet, 40 MG PO DAILY, (Reported) Hydrocodone/Acetaminophen 1 Each Tablet, 1-2 EACH PO Q6H PRN for PAIN-MILD, ( Reported) Isosorbide Mononitrate 30 Mg Tab.er.24h, 30 MG PO DAILY, (Reported) Meclizine HCl 25 Mg Tab.chew, 25 MG PO BID PRN for DIZZINESS, (Reported) Metoprolol Tartrate 25 Mg Tablet, 12.5 MG PO BID, (Reported) Omeprazole 20 Mg Capsule.dr, 20 MG PO BID, (Reported) Ondansetron HCl 4 Mg Tablet, 4 MG PO QID PRN for NAUSEA/VOMITING-1ST LINE, ( Reported) Potassium Chloride 10 Meq Tablet.er, 20 MEQ PO TID, (Reported) Warfarin Sodium 2.5 Mg Tablet, 2.5 MG PO DAILY Prescribed by: KAYE ECHEVARRIA on 05/15/17 0920 Patient Home Medication List Home Medication List Reviewed: Yes Review of Systems Constitutional: No chills, No diaphoresis EENTM: No Blurred Vision, No Double Vision Respiratory: Denies Cough, Denies Shortness of Air Cardiovascular: See HPI, Chest Pain, Edema; Denies Irregular Heart Rate, Denies Lightheadedness, Denies Palpitations, Denies Syncope Gastrointestinal: Denies Constipated, Denies Diarrhea, Denies Nausea, Denies Vomiting Genitourinary: Denies Discharge, Denies Drainage Musculoskeletal: No back pain, No joint pain Skin: No pruritus, No rash Psychiatric/Neurological: Denies Headache, Denies Numbness Past [id number] Hx Patient Social History Alcohol Use: Denies Use Recreational Drug Use: No Smoking Status: Never a Smoker Immunizations Up To Date Date of Pneumonia Vaccine: Nov 17, 2014 Date of Influenza Vaccine: Nov 28, 2016 Past Medical History Abdominal, Appendectomy, Hysterectomy, Joint Replacement Sleep Apnea Atrial Fibrillation, Hypertension, Irregular Heartbeat Reproductive Disorders: No [employer] History: Hysterectomy Kidney Infection Gastroesophageal Reflux, Polyps Family Medical History Cardiovascular disease 19 MOTHER Neoplasm G8 BROTHER (BRAIN TUMORS X2) Physical Exam Vital Signs Vital Signs - First Documented 07/10/17 16:00 Temp 98.9 Pulse 57 Resp 20 B/P (MAP) 135/59 (84) Pulse Ox 95 O2 Delivery Room Air Capillary Refill : General Appearance: No Apparent Distress, WD/WN HEENT: PERRL/EOMI, Pharynx Normal Neck: Full Range of Motion, Non Tender, Supple Respiratory: Lungs Clear, Normal Breath Sounds, No Accessory Muscle Use, No Respiratory Distress, Other (chest wall is tender to palpation) Cardiovascular: Regular Rate, Rhythm, No Edema, No Gallop, No Murmur, Normal Peripheral Pulses Gastrointestinal: Normal Bowel Sounds, Non Tender, Soft Extremity: Normal Capillary Refill, Normal Range of Motion, Non Tender, No Calf Tenderness, Pedal Edema (1+ pitting edema bilateral lower extremities to the calf) Neurologic/Psychiatric: Alert, Oriented x3 Skin: Normal Color, Warm/Dry Progress/Results/Core Measures Results/Orders Lab Results Laboratory Tests Test 07/10/17 16:00 Range/Units White Blood Count 9.1 4.3-11.0 10^3/uL Red Blood Count 3.85 L 4.35-5.85 10^6/uL Hemoglobin 9.6 L 11.5-16.0 G/DL Hematocrit 31 L 35-52 % Mean Corpuscular Volume 81 80-99 FL Mean Corpuscular Hemoglobin 25 25-34 PG Mean Corpuscular Hemoglobin Concent 31 L 32-36 G/DL Red Cell Distribution Width 17.1 H 10.0-14.5 % Platelet Count 319 130-400 10^3/uL Mean Platelet Volume 11.1 H 7.4-10.4 FL Neutrophils (%) (Auto) 66 42-75 % Lymphocytes (%) (Auto) 17 12-44 % Monocytes (%) (Auto) 15 H 0-12 % Eosinophils (%) (Auto) 1 0-10 % Basophils (%) (Auto) 0 0-10 % Neutrophils # (Auto) 6.0 1.8-7.8 X 10^3 Lymphocytes # (Auto) 1.6 1.0-4.0 X 10^3 Monocytes # (Auto) 1.4 H 0.0-1.0 X 10^3 Eosinophils # (Auto) 0.1 0.0-0.3 10^3/uL Basophils # (Auto) 0.0 0.0-0.1 10^3/uL Prothrombin Time 26.5 H 12.2-14.7 SEC INR Comment 2.5 H 0.8-1.4 Activated Partial Thromboplast Time 36 H 24-35 SEC D-Dimer 0.27 0.00-0.49 UG/ML Sodium Level 140 135-145 MMOL/L Potassium Level 4.6 3.6-5.0 MMOL/L Chloride Level 105 98-107 MMOL/L Carbon Dioxide Level 23 21-32 MMOL/L Anion Gap 12 5-14 MMOL/L Blood Urea Nitrogen 15 7-18 MG/DL Creatinine 1.09 0.60-1.30 MG/DL Estimat Glomerular Filtration Rate 48 BUN/Creatinine Ratio 14 Glucose Level 92 70-105 MG/DL Calcium Level 9.6 8.5-10.1 MG/DL Magnesium Level 2.0 1.8-2.4 MG/DL Total Bilirubin 0.6 0.1-1.0 MG/DL Aspartate Amino Transf (AST/SGOT) 18 5-34 U/L Alanine Aminotransferase (ALT/SGPT) 11 0-55 U/L Alkaline Phosphatase 171 H 40-136 U/L Myoglobin 47.1 10.0-92.0 NG/ML Troponin I < 0.30 <0.30 NG/ML Total Protein 6.8 6.4-8.2 GM/DL Albumin 3.9 3.2-4.5 GM/DL Lipase 36 8-78 U/L My Orders Orders - ELIJAH RÍOS Cbc With Automated Diff (07/10/17 16:01) Magnesium (07/10/17 16:01) Chest 1 View, Ap/Pa Only (07/10/17 16:01) Ekg Tracing (07/10/17 16:) Cardiac Profile 1 (07/10/17 16:01) Comprehensive Metabolic Panel (07/10/17 16:01) Myoglobin Serum (07/10/17 16:01) Protime With Inr (07/10/17 16:) Partial Thromboplastin Time (07/10/17 16:) O2 (07/10/17 16:01) Monitor-Rhythm Ecg Trace Only (07/10/17 16:) Lipid Panel (07/11/17 06:00) Saline Lock/Iv-Start (07/10/17 16:) Lipase (07/10/17 16:) Fibrin Degradation Products (07/10/17 16:01) Vital Signs/I&O 07/10/17 07/10/17 16:00 16:25 Temp 98.9 Pulse 57 Resp 20 B/P (MAP) 135/59 (84) Pulse Ox 95 O2 Delivery Room Air Room Air Progress Progress Note : Time: 17:54 Progress Note May [address] Echevarria: CONCLUSION: 1. Mild to moderate disease in the proximal and distal LAD nonobstructive disease 2. Mild disease in the circumflex and right coronary artery nonobstructive disease 3. Severe hypertension, elevated liver and trigger end-diastolic pressure due to hypertensive heart disease Initial ECG Impression Date: July 10, 2017 Initial ECG Impression Time: 15:57 Initial ECG Rate: 63 Initial ECG Rhythm: A Fib/Flutter Initial ECG Intervals: QT (455) Initial ECG Impression: Nonspecific Changes (right bundle-branch block), Atrial Fibrillation Initial ECG Comparisson: Unchanged Comment Right bundle-branch block, atrial fibrillation but no evidence of ST elevation or depression. Diagnostic Imaging Diagonstic Imaging: Xray Plain Films/CT/US/NM/MRI: chest (1v) Comments [facility] [place], [place] NAME: [facility] REC#: [id number] PT STATUS: REG ER : 1935 PHYSICIAN: ELIJAH RÍOS MD ADMIT DATE: 07/10/17/ER Draft Date of Exam:07/10/17 CHEST 1 VIEW, AP/PA ONLY EXAM: CHEST 1 VIEW, AP/PA ONLY INDICATION: Chest pain. COMPARISON: Chest radiograph 05/10/2017. FINDINGS: Cardiomegaly. Normal central pulmonary vascularity. No new dense consolidation, pleural effusion or pneumothorax. Calcified aorta. Surgical clips near the GE junction. No acute osseous findings. IMPRESSION: No acute cardiopulmonary findings. Stable cardiomegaly. Dictated on workstation # [id number] Dict: 07/10/17 1717 Trans: 07/10/17 1724 [id number] Interpreted by: JOSE MURPHY MD Electronically signed by: Reviewed: Reviewed by Me Consults : Consulting Physician: KAYE ECHEVARRIA MD Consults Notes Discussed the patient and given her recent cardiac catheterization 2 months ago he doesn't think that this is cardiogenic and recommends something such as a PPI or NSAID. He will see her in the clinic tomorrow if she would like. Departure Impression Primary Impression: Costochondritis, acute Disposition: 01 HOME, SELF-CARE Condition: Stable Departure-Patient Inst. Decision time for Depature: 18:01 Referrals: JAMEE VEE MD (PCP/Family) Primary Care Physician Patient Instructions: Costochondritis (DC) Add. Discharge Instructions: Because you're on warfarin it may be better to use your hydrocodone one half to one tablet as needed for chest wall pain rather than ibuprofen. Please call Dr. Echevarria's office in the morning at [phone] and request to be seen that day. If you have worsening symptoms or new symptoms you can follow-up with us. You can also use Tylenol 1000 mg every 8 hours as needed for pain. Muscle rubs such as icy hot or Biofreeze can be helpful on the chest wall. Copy Copies To 1: JAMEE VEE MD; KAYE ECHEVARRIA MD, TITUS J July 10, 2017 16:07
[2017-07-10 16:12] LABS: BASOPHILS % (AUTO) 0 % (0-10); EOSINOPHILS # (AUTO) 0.1 10^3/uL (0.0-0.3); EOSINOPHILS % (AUTO) 1 % (0-10); HEMATOCRIT 31 % (35-52); HEMOGLOBIN 9.6 G/DL (11.5-16.0); LYMPHOCYTES # (AUTO) 1.6 X 10^3 (1.0-4.0); LYMPHOCYTES % (AUTO) 17 % (12-44); MEAN CORPUSCULAR HEMOGLOBIN 25 PG (25-34); MEAN CORPUSCULAR HGB CONC 31 G/DL (32-36); MEAN CORPUSCULAR VOLUME 81 FL (80-99); MEAN PLATELET VOLUME 11.1 FL (7.4-10.4); MONOCYTES # (AUTO) 1.4 X 10^3 (0.0-1.0); MONOCYTES % (AUTO) 15 % (0-12); NEUTROPHILS % (AUTO) 66 % (42-75); PLATELET COUNT 319 10^3/uL (130-400); RED BLOOD COUNT 3.85 10^6/uL (4.35-5.85); RED CELL DISTRIBUTION WIDTH 17.1 % (10.0-14.5); WHITE BLOOD COUNT 9.1 10^3/uL (4.3-11.0)
[2017-07-10 16:31] LABS: INR 2.5 (0.8-1.4); PROTHROMBIN TIME PATIENT 26.5 SEC (12.2-14.7)
[2017-07-10 16:34] LABS: ALANINE AMINOTRANSFERASE 11 U/L (0-55); ALBUMIN 3.9 GM/DL (3.2-4.5); ALKALINE PHOSPHATASE 171 U/L (40-136); BILIRUBIN,TOTAL 0.6 MG/DL (0.1-1.0); BUN/CREATININE RATIO 14; CALCIUM 9.6 MG/DL (8.5-10.1); CARBON DIOXIDE 23 MMOL/L (21-32); CHLORIDE 105 MMOL/L (98-107); CREATININE SERUM 1.09 MG/DL (0.60-1.30); GFR ESTIMATED 48; GLUCOSE 92 MG/DL (70-105); LIPASE 36 U/L (8-78); POTASSIUM 4.6 MMOL/L (3.6-5.0); SODIUM 140 MMOL/L (135-145); TOTAL PROTEIN 6.8 GM/DL (6.4-8.2)
[2017-07-10 16:41] LABS: MYOGLOBIN SERUM 47.1 NG/ML (10.0-92.0)
--- NOTE | 2017-07-10 17:25 | Diagnostic Imaging Report ---
EXAM: CHEST 1 VIEW, AP/PA ONLY INDICATION: Chest pain. COMPARISON: Chest radiograph 05/10/2017. FINDINGS: Cardiomegaly. Normal central pulmonary vascularity. No new dense consolidation, pleural effusion or pneumothorax. Calcified aorta. Surgical clips near the GE junction. No acute osseous findings. IMPRESSION: No acute cardiopulmonary findings. Stable cardiomegaly. Dictated by: Dictated on workstation # [id number]
[2017-07-10 18:13] VITALS: BP 141/67
== END 2017-07-10 18:15 | disposition home or self-care (01) ==
LOC: EDUNIT# 15:55 → ER 15:55
DX: M94.0 Chondrocostal junction syndrome [Tietze] (principal); I48.91 Unspecified atrial fibrillation; I10 Essential (primary) hypertension; K21.9 Gastro-esophageal reflux disease without esophagitis; G47.30 Sleep apnea, unspecified; Z82.49 Family history of ischemic heart disease and other diseases of the circulatory system; Z80.8 Family history of malignant neoplasm of other organs or systems; Z88.2 Allergy status to sulfonamides; Z79.01 Long term (current) use of anticoagulants; Z90.49 Acquired absence of other specified parts of digestive tract; Z90.710 Acquired absence of both cervix and uterus
CPT/HCPCS: 36415; 71045; 80053; 83690; 83735; 83874; 84484; 85025; 85379; 85610; 85730; 93005; 93041

== ENCOUNTER → 2017-07-11 | Outpatient (CLI) | payer MEDICARE ==
[2017-07-11 12:19] LABS: INR 2.1 (0.8-1.4); PROTHROMBIN TIME PATIENT 23.6 SEC (12.2-14.7)
== END ==
LOC: HH 08:00
PROVIDERS: ATTEND Internal Medicine Cardiovascular Disease
DX: Z51.81 Encounter for therapeutic drug level monitoring (principal); I50.9 Heart failure, unspecified; Z79.01 Long term (current) use of anticoagulants
CPT/HCPCS: 85610

== ENCOUNTER → 2017-08-16 | Outpatient (CLI) | payer MEDICARE ==
[2017-08-16 11:15] LABS: INR 2.3 (0.8-1.4); PROTHROMBIN TIME PATIENT 25.6 SEC (12.2-14.7)
[2017-08-16 11:22] LABS: CALCIUM 9.6 MG/DL (8.5-10.1); CREATININE SERUM 1.08 MG/DL (0.60-1.30)
== END ==
LOC: HH 10:58
PROVIDERS: ATTEND Internal Medicine Cardiovascular Disease
DX: I50.9 Heart failure, unspecified (principal); Z79.01 Long term (current) use of anticoagulants
CPT/HCPCS: 80048; 85610

== ENCOUNTER → 2017-08-25 | Outpatient (CLI) | payer MEDICARE ==
[2017-08-25 12:18] LABS: BILIRUBIN,URINE NEGATIVE (NEGATIVE); CLARITY,URINE CLEAR; COLOR,URINE YELLOW; GLUCOSE, URINE (UA) NEGATIVE (NEGATIVE); KETONES,URINE NEGATIVE (NEGATIVE); LEUKOCYTE ESTERASE ,URINE 1+ (NEGATIVE); NITRITE,URINE NEGATIVE (NEGATIVE); PH,URINE 8 (5-9); PROTEIN,URINE NEGATIVE (NEGATIVE); UROBILINOGEN,URINE NORMAL (NORMAL)
[2017-08-25 12:28] LABS: BACTERIA,URINE FEW /HPF; SQUAMOUS EPITHELIAL CELL,UR 0-2 /HPF
== END ==
LOC: HH 08:00
PROVIDERS: ATTEND Family Medicine
DX: N39.0 Urinary tract infection, site not specified (principal)
CPT/HCPCS: 81000; 87077; 87088; 87186

== ENCOUNTER → 2017-09-11 | Outpatient (CLI) | payer MEDICARE, OTHER ==
[2017-09-11 12:28] LABS: INR 1.8 (0.8-1.4); PROTHROMBIN TIME PATIENT 21.1 SEC (12.2-14.7)
[2017-09-11 12:33] LABS: CALCIUM 9.5 MG/DL (8.5-10.1); CREATININE SERUM 1.19 MG/DL (0.60-1.30); POTASSIUM 4.1 MMOL/L (3.6-5.0)
== END ==
LOC: HH 08:00
PROVIDERS: ATTEND Internal Medicine Cardiovascular Disease
DX: I48.91 Unspecified atrial fibrillation (principal); I50.9 Heart failure, unspecified
CPT/HCPCS: 80048; 85610

== ENCOUNTER → 2017-09-27 | Outpatient (CLI) | payer MEDICARE ==
[2017-09-27 14:11] LABS: BILIRUBIN,URINE NEGATIVE (NEGATIVE); CLARITY,URINE CLEAR; COLOR,URINE YELLOW; GLUCOSE, URINE (UA) NEGATIVE (NEGATIVE); KETONES,URINE NEGATIVE (NEGATIVE); LEUKOCYTE ESTERASE ,URINE 1+ (NEGATIVE); NITRITE,URINE NEGATIVE (NEGATIVE); PH,URINE 6 (5-9); PROTEIN,URINE 2+ (NEGATIVE); UROBILINOGEN,URINE NORMAL (NORMAL)
[2017-09-27 14:18] LABS: BACTERIA,URINE NEGATIVE /HPF; RBC,URINE RARE /HPF; SQUAMOUS EPITHELIAL CELL,UR 0-2 /HPF; WBC,URINE RARE /HPF
== END ==
LOC: HH 08:00
PROVIDERS: ATTEND Family Medicine
DX: R44.3 Hallucinations, unspecified (principal); R41.0 Disorientation, unspecified
CPT/HCPCS: 81000

== ENCOUNTER → 2017-11-21 | Outpatient (CLI) | payer MEDICARE ==
[~2017-11-21] MED LIST changes: -LOSA25TA21 PO; +LOSA25TA6 PO; -LOSA50TA36 PO; +LOSA50TA7 PO
[2017-11-21 12:34] LABS: INR 2.6 (0.8-1.4); PROTHROMBIN TIME PATIENT 27.9 SEC (12.2-14.7)
[2017-11-21 12:38] LABS: CALCIUM 9.8 MG/DL (8.5-10.1); CREATININE SERUM 1.21 MG/DL (0.60-1.30); POTASSIUM 4.2 MMOL/L (3.6-5.0)
== END ==
LOC: HH 08:00
PROVIDERS: ATTEND Internal Medicine Cardiovascular Disease
DX: Z51.81 Encounter for therapeutic drug level monitoring (principal); I48.91 Unspecified atrial fibrillation; I50.9 Heart failure, unspecified; Z79.01 Long term (current) use of anticoagulants
CPT/HCPCS: 80048; 85610

== ENCOUNTER 2018-04-18 23:11 | Emergency (ER) | payer MEDICARE ==
[~2018-04-18] VITALS: Ht 162.6 cm; Wt 81.6 kg
[~2018-04-18 23:11] MED LIST changes: +LOSA25TA41 PO; -LOSA25TA6 PO; +LOSA50TA63 PO; -LOSA50TA7 PO
[2018-04-18] MEDS ORDERED: fentaNYL INJECTION 100 MCG/2 ML AMP IVP STA (23:12)
--- OUTSIDE RECORDS SUMMARY | 2018-04-18 23:22 | XMS REPORT | CCD ---
Author Author [facility] Organization [facility] Address [address] [place] [address] Phone Care Team Providers Care [employer] Faculty Member Name Role Phone PP Unavailable CCM Unavailable Summary Purpose Interface Exchange Insurance Providers Payer name Policy type / Coverage type Covered libertarian ID Effective Begin Date Effective End Date WPS Medicare Part B Medicare Part B [id number] Unknown Family history Mother Diagnosis Age At Onset Hypertension Unknown Heart Attack Unknown Social History Social History Element Codes Description Effective Dates Marital status Unknown 07/15/2014 Marital status Unknown 07/15/2014 Number of children Unknown 0 07/15/2014 Number of children Unknown 0 07/15/2014 Employment Unknown Retired 07/15/2014 Employment Unknown Retired 07/15/[address]: 648879368 Has never smoked or chewed tobacco 07/15/[address]: 211301018 Has never smoked or chewed tobacco 07/15/[address]: 096171295 Never drinks alcohol 07/15/[address]: 093475357 Never drinks alcohol 07/15/2014 Allergies, Adverse Reactions, Alerts Substance Reaction Codes Entered Date Inactivated Date Status * NO KNOWN FOOD ALLERGIES Unknown 07/15/2014 No Inactive Date Active SULFA(SULFONAMIDE ANTIBIOTICS) Unknown 07/15/2014 No Inactive Date Active Past Medical History Illness Codes Condition Status Onset Date Resolved Date Essential (primary) hypertension ICD-9: 401.9 ICD-10: I10 Active 01/13/2016 Unknown Localized edema ICD-9 : 782.3 ICD-10: R60.0 Active 01/13/2016 Unknown Right lower quadrant pain ICD-9: 789.03 ICD-10: R10.31 Active 03/15/2018 Unknown Diarrhea, unspecified ICD-9: 787.91 ICD-10: R19.7 Active 12/21/2014 Unknown Gastro-esophageal reflux disease without esophagitis ICD-9: 530.81 ICD-10: K21.9 Active 03/15/2018 Unknown Low back pain ICD-9: 724.2 ICD-10: M54.5 Active 09/13/2016 Unknown 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 ICD-9: V58.61 ICD-10: Z79.01 Active 03/30/2015 Unknown Other malaise ICD-9: 780.79 ICD-10: R53.81 Active 09/29/2016 Unknown Vascular dementia without behavioral disturbance ICD-9: 290.40 ICD-10: F01.50 Active 12/12/2017 Unknown Generalized anxiety disorder ICD-9: 300.02 ICD-10: F41.1 Active 01/13/2016 Unknown Paroxysmal atrial fibrillation ICD-9: 427.31 ICD-10: I48.0 Active 01/13/2016 Unknown Major depressive disorder, single episode, unspecified ICD-9: 311 ICD-10: F32.9 Active 03/30/2015 Unknown Other chest pain ICD-9 : 786.59 ICD-10: R07.89 Active 09/29/2016 Unknown Acute recurrent maxillary sinusitis ICD-9: 461.0 ICD-10: J01.01 Active 01/13/2016 Unknown Encounter for immunization ICD-9: V04.81 ICD-10: Z23 Active 12/09/2015 Unknown 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 Active 06/22/2015 Unknown Encounter for therapeutic drug level monitoring ICD-9: V58.83 ICD-10: Z51.81 Active 06/01/2015 Unknown Vitamin D deficiency, unspecified ICD-9: 268.9 ICD-10: E55.9 Active 03/30/2015 Unknown Allergic rhinitis due to pollen ICD-9: 477.0 ICD-10: J30.1 Active 01/29/2015 Unknown DYSURIA ICD-9: 788.1 Active 11/06/2014 Unknown [...] hypertension ICD-9: 401.9 ICD-10: I10 01/13/2016 Active Localized edema ICD-9 : 782.3 ICD-10: R60.0 01/13/2016 Active Right lower quadrant pain ICD-9: 789.03 ICD-10: R10.31 03/15/2018 Active Diarrhea, unspecified ICD-9: 787.91 ICD-10: R19.7 12/21/2014 Active Gastro-esophageal reflux disease without esophagitis ICD-9: 530.81 ICD-10: K21.9 03/15/2018 Active Low back pain ICD-9: 724.2 ICD-10: M54.5 09/13/2016 Active 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 ICD-9: V58.61 ICD-10: Z79.01 03/30/2015 Active Other malaise ICD-9: 780.79 ICD-10: R53.81 09/29/2016 Active Vascular dementia without behavioral disturbance ICD-9: 290.40 ICD-10: F01.50 12/12/2017 Active Generalized anxiety disorder ICD-9: 300.02 ICD-10: F41.1 01/13/2016 Active Paroxysmal atrial fibrillation ICD-9: 427.31 ICD-10: I48.0 01/13/2016 Active Major depressive disorder, single episode, unspecified ICD-9: 311 ICD-10: F32.9 03/30/2015 Active Other chest pain ICD-9 : 786.59 ICD-10: R07.89 09/29/2016 Active Acute recurrent maxillary sinusitis ICD-9: 461.0 ICD-10: J01.01 01/13/2016 Active Encounter for immunization ICD-9: V04.81 ICD-10: Z23 12/09/2015 Active 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 06/22/2015 Active Encounter for therapeutic drug level monitoring ICD-9: V58.83 ICD-10: Z51.81 06/01/2015 Active Vitamin D deficiency, unspecified ICD-9: 268.9 ICD-10: E55.9 03/30/2015 Active Allergic rhinitis due to pollen ICD-9: 477.0 ICD-10: J30.1 01/29/2015 Active DYSURIA ICD-9: 788.1 11/06/2014 Active Anticoagulated [...] Start Date Stop Date Status Fill Instructions hydrocodone 7.5 mg-acetaminophen 325 mg tablet RxNorm: 279511 1 Tablet(s) PO daily as needed pain 04/17/20182018 Active cyanocobalamin (vit B-12) 1,000 mcg/mL injection solution RxNorm: 928873 INJECT 1 ML INTRAMUSCULARLY 2 TIMES A MONTH FOR 2 MONTHS, THEN ONCE A MONTH THEREAFTER 04/10/2018 09/24/2018 Active buspirone 10 mg tablet RxNorm: 186139 TAKE ONE TABLET BY MOUTH THREE TIMES A DAY 03/21/2018 07/18/2018 Active hydrocodone 7.5 mg-acetaminophen 325 mg tablet RxNorm: 967806 1 Tablet(s) PO daily as needed pain 03/15/20182018 Inactive Flagyl 500 mg tablet RxNorm: 007251 1 Tablet(s) PO TID 201803/24/2018 Inactive potassium chloride ER 10 mEq tablet,extended release RxNorm: 734189 TAKE TWO TABLETS BY MOUTH THREE TIMES A DAY 02/28/2018 07/27/2018 Active hydrocodone 7.5 mg-acetaminophen 325 mg tablet RxNorm: 421896 1 Tablet(s) PO daily as needed pain 02/01/20182018 Inactive Xanax 0.25 mg tablet RxNorm: 921321 1 Tablet(s) PO TID as needed anxiety 01/01/2018 01/20/2018 Inactive hydrocodone 7.5 mg-acetaminophen 325 mg tablet RxNorm: 665985 1 Tablet(s) PO daily as needed pain 12/12/20172017 Inactive cyanocobalamin (vit B-12) 1,000 mcg/mL injection solution RxNorm: 261258 INJECT 1 ML INTRAMUSCULARLY 2 TIMES A MONTH FOR 2 MONTHS, THEN ONCE A MONTH THEREAFTER 11/28/2017 01/22/2018 Inactive hydrocodone 7.5 mg-acetaminophen 325 mg tablet RxNorm: 183287 1-2 Tablet(s) PO Q4- 6H as needed pain 11/21/2017 12/11/2017 Inactive Lasix 40 mg tablet RxNorm: 799933 TAKE ONE TABLET BY MOUTH DAILY 10/23/2017 04/20/2018 Active Lexapro 5 mg tablet RxNorm: 313541 TAKE ONE TABLET BY MOUTH EVERY EVENING 10/23/2017 12/21/2017 Inactive buspirone 10 mg tablet RxNorm: 849978 TAKE ONE TABLET BY MOUTH THREE TIMES A DAY 10/02/2017 02/28/2018 Inactive omeprazole 20 mg capsule,delayed release RxNorm: 730844 TAKE ONE CAPSULE BY MOUTH TWICE A DAY 09/13/2017 03/11/2018 Inactive Levaquin 750 mg tablet RxNorm: 474466 1 tab every other day for 5 doses 1 Tablet(s ) PO 08/29/2017 08/28/2017 Inactive Levaquin 750 mg tablet RxNorm: 317088 1 tab every other day for 5 doses 1 Tablet(s ) PO 08/29/2017 09/02/2017 Inactive hydrocodone 7.5 mg-acetaminophen 325 mg tablet RxNorm: 435665 1-2 Tablet(s) PO Q4- 6H as needed pain 08/28/2017 09/26/2017 Inactive potassium chloride ER 10 mEq tablet,extended release RxNorm: 953877 TAKE TWO TABLETS BY MOUTH THREE TIMES A DAY 08/28/2017 12/25/2017 Inactive metoprolol tartrate 25 mg tablet RxNorm: 292333 TAKE 1/2 TABLET BY MOUTH TWO TIMES A DAY 07/25/2017 07/19/2018 Active Lexapro 5 mg tablet RxNorm: 442889 TAKE ONE TABLET BY MOUTH EVERY EVENING 07/21/2017 10/18/2017 Inactive hydrocodone 7.5 mg-acetaminophen 325 mg tablet RxNorm: 959452 1-2 Tablet(s) PO Q4- 6H as needed pain 07/19/2017 08/17/2017 Inactive hydrocodone 7.5 mg-acetaminophen 325 mg tablet RxNorm: 060921 1-2 Tablet(s) PO Q4- 6H as needed pain 07/03/2017 07/18/2017 Inactive hydrocodone 7.5 mg-acetaminophen 325 mg tablet RxNorm: 344672 1-2 Tablet(s) PO Q4- 6H as needed pain 05/25/2017 06/23/2017 Inactive cyanocobalamin (vit B-12) 1,000 mcg/mL injection solution RxNorm: 494812 INJECT 1 ML INTRAMUSCULARLY 2 TIMES A MONTH FOR 2 MONTHS, THEN ONCE A MONTH THEREAFTER 05/19/2017 08/10/2017 Inactive warfarin 5 mg tablet RxNorm: 899387 TAKE ONE TABLET BY MOUTH DAILY 04/26/2017 04/20/2018 Active buspirone 10 mg tablet RxNorm: 568786 TAKE ONE TABLET BY MOUTH THREE TIMES A DAY 04/26/2017 09/22/2017 Inactive Xanax 0.25 mg tablet RxNorm: 605514 1 Tablet(s) PO TID as needed anxiety 04/17/2017 05/14/2017 Inactive Levaquin 500 mg tablet RxNorm: 418677 1 Tablet(s) PO Q72H x3 doses 04/11/2017 04/10/2017 Inactive Levaquin 500 mg tablet RxNorm: 494380 1 Tablet(s) PO Q72H x3 doses 04/11/2017 07/03/2017 Inactive potassium chloride ER 10 mEq tablet,extended release RxNorm: 841102 TAKE TWO TABLETS BY MOUTH THREE TIMES A DAY 03/27/2017 08/23/2017 Inactive Tamiflu 75 mg capsule RxNorm: 421915 1 Capsule(s) PO BID 201707/03/2017 Inactive Zofran 4 mg tablet RxNorm: 129366 1 Tablet(s) PO QID as needed nausea 03/23/2017 06/20/2017 Inactive Zofran 4 mg tablet RxNorm: 360942 1 Tablet(s) PO QID as needed nausea 03/23/2017 03/22/2017 Inactive Tamiflu 75 mg capsule RxNorm: 872483 1 Capsule(s) PO BID 201703/22/2017 Inactive lisinopril 10 mg tablet RxNorm: 764300 TAKE ONE-HALF TABLET BY MOUTH DAILY 03/10/2017 06/02/2018 Active metolazone 5 mg tablet RxNorm: 507593 1 Tablet(s) PO TIW 201703/01/2018 Inactive hydrocodone 7.5 mg-acetaminophen 325 mg tablet RxNorm: 005557 1-2 Tablet(s) PO Q4- 6H as needed pain 02/23/2017 05/24/2017 Inactive omeprazole 20 mg capsule,delayed release RxNorm: 585560 Capsule(s) TAKE ONE CAPSULE BY MOUTH TWICE A DAY 02/08/2017 Inactive metolazone 5 mg tablet RxNorm: 366635 TAKE 1 TABLET BY MOUTH TWICE WEEKLY 02/08/2017 03/06/2017 Inactive Lexapro 5 mg tablet RxNorm: 830224 1 Tablet(s) PO QPM 201603/06/2017 Inactive hydrocodone 7.5 mg-acetaminophen 325 mg tablet RxNorm: 333245 1-2 Tablet(s) PO Q4- 6H as needed pain 01/16/2017 02/22/2017 Inactive Lasix 40 mg tablet RxNorm: 024721 TAKE ONE TABLET BY MOUTH DAILY 01/11/2017 10/07/2017 Inactive metoprolol tartrate 25 mg tablet RxNorm: 003334 TAKE 1/2 TABLET BY MOUTH TWO TIMES A DAY 01/11/2017 07/09/2017 Inactive allopurinol 300 mg tablet RxNorm: 424290 TAKE ONE TABLET BY MOUTH DAILY 01/09/2017 06/07/2017 Inactive hydrocodone 7.5 mg-acetaminophen 325 mg tablet RxNorm: 433648 1-2 Tablet(s) PO Q4- 6H as needed pain 12/06/2016 01/15/2017 Inactive lisinopril 10 mg tablet RxNorm: 219409 TAKE ONE-HALF TABLET BY MOUTH DAILY 12/02/2016 03/09/2017 Inactive buspirone 10 mg tablet RxNorm: 821132 TAKE ONE TABLET BY MOUTH THREE TIMES A DAY 10/25/2016 01/22/2017 Inactive buspirone 10 mg tablet RxNorm: 941174 TAKE ONE TABLET BY MOUTH THREE TIMES A DAY 10/25/2016 10/24/2016 Inactive hydrocodone 7.5 mg-acetaminophen 325 mg tablet RxNorm: 213591 1-2 or 2 Tablet(s) PO Q4-6H as needed pain 10/25/20162016 Inactive cyanocobalamin (vit B-12) 1,000 mcg/mL injection solution RxNorm: 771743 INJECT 1 ML INTRAMUSCULARLY 2 TIMES A MONTH FOR 2 MONTHS, THEN ONCE A MONTH THEREAFTER 10/24/2016 02/12/2017 Inactive metolazone 5 mg tablet RxNorm: 914335 TAKE 1 TABLET BY MOUTH TWICE WEEKLY 09/23/2016 01/12/2017 Inactive hydrocodone 7.5 mg-acetaminophen 325 mg tablet RxNorm: 562439 1-2 or 2 Tablet(s) PO Q4-6H as needed pain 09/13/20162016 Inactive Keflex 500 mg capsule RxNorm: 066602 1 Capsule(s) PO TID 201609/15/2016 Inactive Take with a probiotic BID Keflex 500 mg capsule RxNorm: 532266 1 Capsule(s) PO TID 201609/08/2016 Inactive Take with a probiotic BID metoprolol tartrate 25 mg tablet RxNorm: 225480 TAKE 1/2 TABLET BY MOUTH TWO TIMES A DAY 09/07/2016 01/04/2017 Inactive potassium chloride ER 10 mEq tablet,extended release RxNorm: 736783 TAKE TWO TABLETS BY MOUTH THREE TIMES A DAY 09/01/2016 02/27/2017 Inactive hydrocodone 7.5 mg-acetaminophen 325 mg tablet RxNorm: 552782 1 or 2 Tablet(s) PO Q4-6H as needed pain 08/31/20162016 Inactive omeprazole 20 mg capsule,delayed release RxNorm: 862658 TAKE ONE CAPSULE BY MOUTH TWICE A DAY 08/24/2016 02/07/2017 Inactive hydrocodone 7.5 mg-acetaminophen 325 mg tablet RxNorm: 930324 1 or 2 Tablet(s) PO Q4-6H as needed pain 08/05/20162016 Inactive lisinopril 10 mg tablet RxNorm: 733999 TAKE ONE-HALF TABLET BY MOUTH DAILY 07/28/2016 12/01/2016 Inactive hydrocodone 7.5 mg-acetaminophen 325 mg tablet RxNorm: 563682 1 or 2 Tablet(s) PO Q4-6H as needed pain 07/05/20162016 Inactive allopurinol 300 mg tablet RxNorm: 779275 TAKE ONE TABLET BY MOUTH DAILY 06/16/2016 12/12/2016 Inactive metoprolol tartrate 25 mg tablet RxNorm: 219998 TAKE 1/2 TABLET BY MOUTH TWO TIMES A DAY 06/16/2016 08/14/2016 Inactive buspirone 10 mg tablet RxNorm: 200905 TAKE ONE TABLET BY MOUTH THREE TIMES A DAY 06/15/2016 10/12/2016 Inactive hydrocodone 7.5 mg-acetaminophen 325 mg tablet RxNorm: 471797 1 or 2 Tablet(s) PO Q4-6H as needed pain 06/07/20162016 Inactive metoprolol tartrate 25 mg tablet RxNorm: 852307 1/2 Tablet(s) PO QPM 05/10/2016 06/08/2016 Inactive lisinopril 10 mg tablet RxNorm: 945851 1/2 Tablet(s) PO daily 04/26/2016 07/27/2016 Inactive hydrocodone 7.5 mg-acetaminophen 325 mg tablet RxNorm: 802917 1 or 2 Tablet(s) PO Q4-6H as needed pain 04/25/20162016 Inactive lisinopril 10 mg tablet RxNorm: 112794 1/2 Tablet(s) PO daily 04/25/2016 04/25/2016 Inactive metoprolol tartrate 25 mg tablet RxNorm: 280851 1/2 Tablet(s) PO BID 04/25/2016 05/09/2016 Inactive allopurinol 300 mg tablet RxNorm: 854143 TAKE ONE TABLET BY MOUTH DAILY 04/19/2016 06/15/2016 Inactive metolazone 5 mg tablet RxNorm: 283172 TAKE 1 TABLET BY MOUTH TWICE WEEKLY 04/19/2016 09/05/2016 Inactive potassium chloride ER 10 mEq tablet,extended release RxNorm: 968673 2 Tablet(s) PO TID 03/21/2016 08/17/2016 Inactive warfarin 5 mg tablet RxNorm: 489772 1 Tablet(s) PO daily TAKE ONE TABLET BY MOUTH DAILY 03/21/2016 03/15/[address] Echevarria manages potassium chloride ER 10 mEq tablet,extended release(part/ cryst) RxNorm: 7235381 2 Tablet(s) PO TID 03/11/2016 03/20/2016 Inactive Xanax 0.25 mg tablet RxNorm: 321270 1 Tablet(s) PO TID as needed anxiety 03/10/2016 04/06/2016 Inactive Xanax 0.25 mg tablet RxNorm: 538933 1 Tablet(s) PO TID as needed anxiety 03/10/2016 12/31/2017 Inactive hydrocodone 7.5 mg-acetaminophen 325 mg tablet RxNorm: 592749 1 or 2 Tablet(s) PO Q4-6H as needed pain 02/26/20162016 Inactive Flonase Allergy Relief 50 mcg/actuation nasal spray, suspension RxNorm: 5451627 1 [place] NASAL each nare daily 01/19/2016 03/18/2016 Inactive cefdinir 300 mg capsule RxNorm: 783777 1 Capsule(s) PO BID 01/23/2016 Inactive take probiotic BID x 7 days Flonase Allergy Relief 50 mcg/actuation nasal spray, suspension RxNorm: 5868312 1 [place] NASAL each nare daily 01/19/2016 01/18/2016 Inactive allopurinol 300 mg tablet RxNorm: 629874 TAKE ONE TABLET BY MOUTH DAILY 01/18/2016 04/16/2016 Inactive Lasix 40 mg tablet RxNorm: 550270 1 Tablet(s) PO daily 201501/07/2017 Inactive (this was only twice daily x1 week) now it's daily cefdinir 300 mg capsule RxNorm: 824637 1 Capsule(s) PO BID 01/17/2016 Inactive take probiotic BID x 7 days cefdinir 300 mg capsule RxNorm: 310057 1 Capsule(s) PO BID 01/10/2016 Inactive buspirone 10 mg tablet RxNorm: 967684 TAKE ONE TABLET BY MOUTH THREE TIMES A DAY 01/11/2016 06/08/2016 Inactive hydrocodone 7.5 mg-acetaminophen 325 mg tablet RxNorm: 803016 1 or 2 Tablet(s) PO Q4-6H as needed pain 12/28/20152015 Inactive potassium chloride ER 10 mEq tablet,extended release(part/ cryst) RxNorm: 2967679 2 po TID x 2 days then 2 po BID Tablet(s) 12/28/2015 03/10/2016 Inactive potassium chloride ER 10 mEq tablet,extended release(part/ cryst) RxNorm: 7695726 TAKE ONE TABLET BY MOUTH TWICE A DAY FOR 1 WEEK THEN RETURN TO DAILY 12/28/2015 12/27/2015 Inactive meclizine 25 mg tablet RxNorm: 569354 1 Tablet(s) PO BID PRN No Stop Date Active potassium chloride ER 10 mEq tablet,extended release(part/ cryst) RxNorm: 0807034 1 Tablet(s) PO TID 12/08/2015 03/10/2016 Inactive potassium chloride ER 10 mEq tablet,extended release(part/ cryst) RxNorm: 5988336 2 Tablet(s) PO daily 11/26/20152015 Inactive cyanocobalamin (vit B-12) 1,000 mcg/mL injection solution RxNorm: 189411 INJECT 1 ML INTRAMUSCULARLY 2 TIMES A MONTH FOR 2 MONTHS, THEN ONCE A MONTH THEREAFTER 11/26/2015 04/23/2016 Inactive potassium chloride ER 10 mEq tablet,extended release(part/ cryst) RxNorm: 2550367 3 Tablet(s) PO daily 11/23/20152015 Inactive Lasix 40 mg tablet RxNorm: 092684 1 Tablet(s) PO daily 201501/13/2016 Inactive (this was only twice daily x1 week) now it's daily metolazone 5 mg tablet RxNorm: 477092 1 Tablet(s) BIW TAKE ONE TABLET BY MOUTH DAILY 11/12/2015 04/18/2016 Inactive hydrocodone 7.5 mg-acetaminophen 325 mg tablet RxNorm: 098934 1 or 2 Tablet(s) PO Q4-6H as needed pain 11/12/20152015 Inactive Lasix 40 mg tablet RxNorm: 579327 1 Tablet(s) PO daily 201511/11/2015 Inactive (this was only twice daily x1 week) now it's daily metolazone 5 mg tablet RxNorm: 326999 Tablet(s) TAKE ONE TABLET BY MOUTH DAILY 10/22/2015 10/29/2015 Inactive potassium chloride ER 10 mEq tablet,extended release(part/ cryst) RxNorm: 9766919 1 Tablet(s) PO daily 10/08/20152015 Inactive twice daily x 1 week then return to daily Lasix 40 mg tablet RxNorm: 295854 1 Tablet(s) PO daily 201511/09/2015 Inactive twice daily x 1 week then daily thereafter Keflex 500 mg capsule RxNorm: 082012 1 Capsule(s) PO TID 201510/02/2015 Inactive Keflex 500 mg capsule RxNorm: 362760 1 Capsule(s) PO TID 201509/22/2015 Inactive hydrocodone 7.5 mg-acetaminophen 325 mg tablet RxNorm: 601789 1 or 2 Tablet(s) PO Q4-6H as needed pain 09/22/20152015 Inactive potassium chloride ER 10 mEq tablet,extended release(part/ cryst) RxNorm: 3433164 1 Tablet(s) PO BID 09/22/2015 10/07/2015 Inactive twice daily x 1 week then return to daily Lasix 40 mg tablet RxNorm: 176759 1 Tablet(s) PO BID 201510/07/2015 Inactive twice daily x 1 week then daily thereafter allopurinol 300 mg tablet RxNorm: 574538 1 Tablet(s) PO daily 09/09/2015 01/06/2016 Inactive diltiazem 90 mg tablet RxNorm: 482280 Tablet(s) TAKE ONE TABLET BY MOUTH THREE TIMES A DAY 09/02/2015 01/28/2016 Inactive diltiazem 90 mg tablet RxNorm: 910707 TAKE ONE TABLET BY MOUTH THREE TIMES A DAY 08/31/2015 01/28/2016 Inactive diltiazem 90 mg tablet RxNorm: 068199 TAKE ONE TABLET BY MOUTH THREE TIMES A DAY 08/31/2015 09/01/2015 Inactive Xanax 0.25 mg tablet RxNorm: 515672 1 Tablet(s) PO TID as needed anxiety 08/28/2015 09/26/2015 Inactive Xanax 0.25 mg tablet RxNorm: 836184 1 Tablet(s) PO TID as needed anxiety 08/28/2015 08/27/2015 Inactive potassium chloride ER 10 mEq tablet,extended release(part/ cryst) RxNorm: 916233 TAKE ONE TABLET BY MOUTH DAILY 08/27/2015 2015 Inactive omeprazole 20 mg capsule,delayed release RxNorm: 049753 TAKE ONE CAPSULE BY MOUTH TWICE A DAY 08/16/2015 02/11/2016 Inactive omeprazole 20 mg capsule,delayed release RxNorm: 347679 TAKE ONE CAPSULE BY MOUTH TWICE A DAY 08/16/2015 08/15/2015 Inactive hydrocodone 7.5 mg-acetaminophen 325 mg tablet RxNorm: 012248 1 or 2 Tablet(s) PO Q4-6H as needed pain 08/11/20152015 Inactive omeprazole 20 mg capsule,delayed release RxNorm: 137698 Capsule(s) TAKE ONE CAPSULE BY MOUTH TWICE A DAY 08/03/2015 Inactive omeprazole 20 mg capsule,delayed release RxNorm: 516164 Capsule(s) TAKE ONE CAPSULE BY MOUTH TWICE A DAY 07/31/2015 Inactive buspirone 10 mg tablet RxNorm: 850497 TAKE ONE TABLET BY MOUTH THREE TIMES A DAY 07/13/2015 01/08/2016 Inactive metolazone 5 mg tablet RxNorm: 095419 TAKE ONE TABLET BY MOUTH DAILY 07/02/2015 07/09/2015 Inactive metolazone 5 mg tablet RxNorm: 205673 1 Tablet(s) PO daily 06/18/2015 Inactive metolazone 5 mg tablet RxNorm: 367292 1 Tablet(s) PO daily 06/14/2015 Inactive hydrocodone 7.5 mg-acetaminophen 325 mg tablet RxNorm: 113354 1or2 1 or 2 Tablet(s ) PO Q4-6H as needed pain 06/12/201507/10 Inactive warfarin 1 mg tablet RxNorm: 524537 1 Tablet(s) 04/15/2015 06/22/2015 Inactive take with 3mg to make 4mg on Mon and repeat in 1 week. hydrocodone 7.5 mg-acetaminophen 325 mg tablet RxNorm: 028743 1or2 or 2 Tablet(s) PO Q4-6H as needed pain 03/31/20152015 Inactive hydrocodone 7.5 mg-acetaminophen 325 mg tablet RxNorm: 968627 1or2 or 2 Tablet(s) PO Q4-6H as needed pain 03/25/20152015 Inactive warfarin 5 mg tablet RxNorm: 924973 1 Tablet(s) PO daily TAKE ONE TABLET BY MOUTH DAILY 03/05/2015 06/22/2015 Inactive Xarelto 20 mg tablet RxNorm: 0914252 1 Tablet(s) PO QPM 201503/04/2015 Inactive losartan 100 mg tablet RxNorm: 749214 1 Tablet(s) PO daily 05/201406/22/2015 Inactive [SAVINGS FOR NON-COVERED DRUGS -- BIN:[id number], PCN: [id number], Group: [id number], ID# [id number], Questions: . THIS IS NOT INSURANCE.] Kenalog 40 mg/mL suspension for injection RxNorm: 9169771 1 Milliliter(s) Inj 01/30/2015 01/30/2015 Inactive hydrocodone 7.5 mg-acetaminophen 325 mg tablet RxNorm: 436980 1or2 or 2 Tablet(s) PO Q4-6H as needed pain 01/15/20152014 Inactive Lasix 40 mg tablet RxNorm: 571664 1 Tablet(s) PO daily 201409/21/2015 Inactive as needed for swelling-take potassium when you take lasix potassium chloride ER 10 mEq tablet,extended release(part/ cryst) RxNorm: 976965 2 Tablet(s) PO daily 01/06/2015 01/19/2015 Inactive Lasix 40 mg tablet RxNorm: 708432 1 Tablet(s) PO daily 201401/06/2015 Inactive Ok to fill 20mg, not 40mg as needed for swelling-take potassium when you take lasix potassium chloride ER 10 mEq tablet,extended release(part/ cryst) RxNorm: 260981 1 Tablet(s) PO BID 12/30/2014 01/05/2015 Inactive Vitamin D2 50,000 unit capsule RxNorm: 859969 TAKE 1 CAPSULE BY MOUTH ONCE WEEKLY FOR 12 WEEKS 12/30/2014 03/23/2015 Inactive potassium chloride ER 10 mEq tablet,extended release(part/ cryst) RxNorm: 966110 1 Tablet(s) PO daily 12/26/2014 12/29/2014 Inactive potassium chloride ER 10 mEq tablet,extended release(part/ cryst) RxNorm: 130559 1 Tablet(s) PO daily 12/26/2014 12/25/2014 Inactive omeprazole 20 mg capsule,delayed release RxNorm: 526885 TAKE ONE CAPSULE BY MOUTH TWICE A DAY 12/24/2014 07/21/2015 Inactive Flagyl 500 mg tablet RxNorm: 405097 1 Tablet(s) PO TID 201412/20/2014 Inactive Flagyl 500 mg tablet RxNorm: 481992 1 Tablet(s) PO TID 201412/10/2014 Inactive warfarin 3 mg tablet RxNorm: 092768 TAKE ONE TABLET BY MOUTH DAILY 11/13/2014 01/29/2015 Inactive warfarin 3 mg tablet RxNorm: 106427 TAKE ONE TABLET BY MOUTH DAILY 11/13/2014 01/29/2015 Inactive warfarin 3 mg tablet RxNorm: 073572 TAKE ONE TABLET BY MOUTH DAILY 11/13/2014 03/04/2015 Inactive warfarin 3 mg tablet RxNorm: 317170 1 Tablet(s) PO daily 201403/04/2015 Inactive allopurinol 300 mg tablet RxNorm: 128042 1 Tablet(s) PO daily 11/11/2014 03/10/2015 Inactive hydrocodone 7.5 mg-acetaminophen 325 mg tablet RxNorm: 758423 1or2 or 2 Tablet(s) PO Q4-6H as needed pain 11/10/20142014 Inactive hydrocodone 7.5 mg-acetaminophen 325 mg tablet RxNorm: 420951 1or2 or 2 Tablet(s) PO Q4-6H as needed pain 10/15/20142014 Inactive hydrocodone 7.5 mg-acetaminophen 325 mg tablet RxNorm: 363934 1or2 or 2 Tablet(s) PO Q4-6H as needed pain 10/15/20142014 Inactive Kenalog 40 mg/mL suspension for injection RxNorm: 7479478 Milliliter(s) Inj 10/14/2014 10/14/2014 Inactive ceftriaxone 500 mg solution for injection RxNorm: 5054195 Inj 10/14/2014 10/14/2014 Inactive Zithromax Z-Chito 250 mg tablet RxNorm: 339737 1 Tablet(s) PO UD 10/14/2014 01/29/2015 Inactive zpack cefdinir 300 mg capsule RxNorm: 979301 1 Capsule(s) PO BID 10/20/2014 Inactive Vitamin D2 50,000 unit capsule RxNorm: 449228 1 Capsule(s) PO weekly x 12 weeks 09/24/2014 09/23/2014 Inactive Vitamin D2 50,000 unit capsule RxNorm: 952510 1 Capsule(s) PO weekly x 12 weeks 09/24/2014 12/22/2014 Inactive warfarin 1 mg tablet RxNorm: 309318 TAKE 1/2 TABLET BY MOUTH DAILY WITH 3MG TABLET TO EQUAL 3.5MG DAILY 09/22/201404/2014 Inactive warfarin 1 mg tablet RxNorm: 245818 1/2 Tablet(s) PO daily 3.5mg 08/26/2014 2014 Inactive taking with a 3mg to make 3.5mg tablets Lasix 20 mg tablet RxNorm: 450352 1 Tablet(s) PO QDAY PRN 09/24/2014 Inactive Ok to fill 20mg, not 40mg as needed for swelling-take potassium when you take lasix buspirone 10 mg tablet RxNorm: 009612 1 Tablet(s) PO TID 201411/25/2014 Inactive takes it BID but if she feels anxious she takes one during the day Lasix 20 mg tablet RxNorm: 634786 1 Tablet(s) PO QDAY PRN 08/25/2014 Inactive as needed for swelling-take potassium when you take lasix warfarin 1 mg tablet RxNorm: 347406 1/2 Tablet(s) PO daily 3.5mg 08/15/2014 08/21/2014 Inactive taking with a 3mg to make 3.5mg tablets warfarin 3 mg tablet RxNorm: 084023 1 Tablet(s) PO daily 201410/11/2014 Inactive diltiazem 90 mg tablet RxNorm: 544349 1 Tablet(s) PO TID 201408/30/2015 Inactive warfarin 1 mg tablet RxNorm: 175767 1/2 Tablet(s) PO daily 3.5mg 08/05/2014 08/11/2014 Inactive taking with a 3mg to make 3.5mg tablets cyclobenzaprine 10 mg tablet RxNorm: 234445 1 Tablet(s) PO QHS 08/04/2014 11/01/2014 Inactive buspirone 10 mg tablet RxNorm: 699782 1 Tablet(s) PO QID 201408/21/2014 Inactive allopurinol 300 mg tablet RxNorm: 653086 1 Tablet(s) PO daily 08/04/2014 11/01/2014 Inactive clonazepam 0.5 mg tablet RxNorm: 434165 1 Tablet(s) PO daily 09/02/2014 Inactive omeprazole 20 mg capsule,delayed release RxNorm: 858595 1 Capsule(s) PO BID 08/04/2014 11/01/2014 Inactive atenolol 25 mg tablet RxNorm: 661786 1 Tablet(s) PO daily 201411/01/2014 Inactive warfarin 3 mg tablet RxNorm: 490570 1 Tablet(s) PO daily 201408/04/2014 Inactive diphenhydramine 2 % topical cream RxNorm: 4299730 1 Application TOP Q6 PRN 07/24/2014 01/29/2015 Inactive diltiazem 90 mg tablet RxNorm: 691799 1 Tablet(s) PO BID 201408/04/2014 Inactive cyclobenzaprine 10 mg tablet RxNorm: 284079 1 Tablet(s) PO QH 07/24/2014 08/03/2014 Inactive warfarin 2.5 mg tablet RxNorm: 418387 1 Tablet(s) PO daily 08/22/2014 Inactive [SAVINGS FOR NON-COVERED DRUGS -- [id number], PCN: [id number], Group: XXXXX, ID# [id number], Questions: . THIS IS NOT INSURANCE.] losartan 25 mg tablet RxNorm: 595033 1 Tablet(s) PO daily 201401/29/2015 Inactive [SAVINGS FOR NON-COVERED DRUGS -- [id number], PCN: [id number], Group: XXXXX, ID # [id number], Questions: . THIS IS NOT INSURANCE.] isosorbide mononitrate oral RxNorm: 6057 oral No Start Date Active diltiazem ER 360 mg tablet,extended release 24 hr RxNorm: 042721 1 Tablet(s) PO daily No Start Date Active benazepril 10 mg tablet RxNorm: 440094 1 Tablet(s) PO daily No Start Date 07/14/2014 Inactive lisinopril 10 mg tablet RxNorm: 800592 1 Tablet(s) PO daily No Start Date 04/24/2016 Inactive clonazepam 0.5 mg tablet RxNorm: 415361 1 Tablet(s) PO daily No Start Date 08/03/2014 Inactive diltiazem 90 mg tablet RxNorm: 104911 1 Tablet(s) PO daily No Start Date 07/23/2014 Inactive atenolol 25 mg tablet RxNorm: 121026 1 Tablet(s) PO daily No Start Date 08/03/2014 Inactive buspirone 10 mg tablet RxNorm: 922765 1 Tablet(s) PO QID No Start Date 08/03/2014 Inactive omeprazole 20 mg capsule,delayed release RxNorm: 467864 1 Capsule(s) PO BID No Start Date 08/03/2014 Inactive allopurinol 300 mg tablet RxNorm: 571685 1 Tablet(s) PO daily No Start Date 08/03/2014 Inactive Xarelto 20 mg tablet RxNorm: 0702422 1 Tablet(s) PO daily No Start Date 03/03/2015 Inactive warfarin 2 mg tablet RxNorm: 507891 1 Tablet(s) PO daily No Start Date 07/16/2014 Inactive cyanocobalamin (vit B-12) 1,000 mcg/mL injection solution RxNorm: 307959 1 Milliliter(s) Inj monthly No Start Date Inactive cyclobenzaprine 10 mg tablet RxNorm: 302224 1 Tablet(s) PO BID No Start Date 07/23/2014 Inactive Eliquis 2.5 mg tablet RxNorm: 3913771 1 Tablet(s) PO daily No Start Date 03/03/2015 Inactive Medication Administered Medication Codes Instructions Start Date Status Kenalog 40 mg/mL suspension for injection RxNorm: 4137926 1Milliliter 01/30/2015 No longer Active Kenalog 40 mg/mL suspension for injection RxNorm: 6426893 Milliliter 10/14/2014 No longer Active ceftriaxone 500 mg solution for injection RxNorm: 5912150 10/14/2014 No longer Active Immunizations Vaccine Codes Date Status Influenza CVX: 141 12/10/2015 completed Assessments Condition Codes Effective Dates Right lower quadrant pain ICD-10: R10.31 ICD-9: 789.03 03/27/2018 Essential (primary) hypertension ICD-10: I10 ICD-9: 401.9 03/27/2018 Localized edema ICD-10: R60.0 ICD-9: 782.3 03/27/2018 Gastro-esophageal reflux disease without esophagitis ICD-10 : K21.9 ICD-9: 530.81 03/15/2018 Low back pain ICD-10: M54.5 ICD-9: 724.2 03/15/2018 Diarrhea, unspecified ICD-10: R19.7 ICD-9: 787.91 03/15/2018 Other malaise ICD-10: R53.81 ICD-9: 780.79 12/12/2017 Vascular dementia without behavioral disturbance ICD-10: F01.50 ICD-9: 290.40 12/12/2017 assisted (current) use of anticoagulants ICD-10: Z79.01 ICD-9: V58.61 12/12/2017 Paroxysmal atrial fibrillation ICD-10: I48.0 ICD-9: 427.31 09/05/2017 Major depressive disorder, single episode, unspecified ICD- 10: F32.9 ICD-9: 311 05/09/2017 Generalized anxiety disorder ICD-10: F41.1 ICD-9: 300.02 05/09/2017 Other chest pain ICD-10: R07.89 ICD-9: 786.59 09/29/2016 Acute recurrent maxillary sinusitis ICD-10: J01.01 ICD-9: 461.0 01/14/2016 Encounter for immunization ICD-10: Z23 ICD-9: V04.81 12/10/2015 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 ICD-9: 280.0 06/23/2015 Encounter for therapeutic drug level monitoring ICD-10: Z51.81 ICD-9: V58.83 06/02/2015 Anemia, unspecified ICD-10: D64.9 ICD-9: 285.9 03/31/2015 Vitamin D deficiency, unspecified ICD-10: E55.9 ICD-9: 268.9 03/31/2015 Allergic rhinitis due to pollen ICD-10: J30.1 ICD-9: 477.0 01/30/2015 DYSURIA ICD-9: 788.1 11/07/2014 MUSCLE WEAKNESS-GENERAL ICD-9: [...] Visit Reason For Visit Effective Dates Notes abdominal pain 03/27/2018 hypertension 03/15/2018 fatigue 12/12/2017 fatigue 09/05/2017 hypertension 05/09/2017 hypertension 03/07/2017 hypertension 01/24/2017 chest pain/pressure 09/29/2016 [...] Observation Code Item Item Code Result Date Pt [id number] PT 32.8 seconds 04/06/2018 Pt Cze4806 INR 3.2 04/06/2018 Pt Phv9771 Low Intensity - 1.5-2.0 04/06/2018 Pt Dex6578 Mod intensity - 2.0-3.0 04/06/2018 Pt Fss4147 Hi intensity - 3.0-4.0 04/06/2018 Metabolic Ord15 NA 139 mEq/L 03/28/2018 Metabolic Ord15 K 4.4 mEq/L 03/28/2018 Metabolic Ord15 CL 102 mEq/L 03/28/2018 Metabolic Ord15 CO2 30.0 mEq/L 03/28/2018 Metabolic Ord15 GLUCOSE 84 mg/dL 03/28/2018 Metabolic Ord15 BUN 20 mg/dL 03/28/2018 Metabolic Ord15 Creat 1.2 mg/dL 03/28/2018 Metabolic Ord15 B/C Ratio 17.4 Ratio 03/28/2018 Metabolic Ord15 eGFR 48 ml/min/1.73m2 03/28/2018 Metabolic Ord15 Osmo 279 mOsmo 03/28/2018 Metabolic Ord15 ANION GAP 11 03/28/2018 Metabolic Ord15 CALCIUM 9.3 mg/dL 03/28/2018 Pt Fjs9035 PT 31.7 seconds 03/28/2018 Pt Obb3901 INR 3.1 03/28/2018 Pt Erf2745 Low Intensity - 1.5-2.0 03/28/2018 Pt Xrz8500 Mod intensity - 2.0-3.0 03/28/2018 Pt Xvp7416 Hi intensity - 3.0-4.0 03/28/2018 Metabolic Ord15 NA 139 mEq/L 02/21/2018 Metabolic Ord15 K 4.4 mEq/L 02/21/2018 Metabolic Ord15 CL 104 mEq/L 02/21/2018 Metabolic Ord15 CO2 28.0 mEq/L 02/21/2018 Metabolic Ord15 GLUCOSE 113 mg/dL 02/21/2018 Metabolic Ord15 BUN 20 mg/dL 02/21/2018 Metabolic Ord15 Creat 1.0 mg/dL 02/21/2018 Metabolic Ord15 B/C Ratio 19.2 Ratio 02/21/2018 Metabolic Ord15 eGFR 54 ml/min/1.73m2 02/21/2018 Metabolic Ord15 Osmo 281 mOsmo 02/21/2018 Metabolic Ord15 ANION GAP 11 02/21/2018 Metabolic Ord15 CALCIUM 9.0 mg/dL 02/21/2018 Pt Eyi3665 PT 23.4 seconds 02/21/2018 Pt Apu6500 INR 2.1 02/21/2018 Pt Eyc0478 Low Intensity - 1.5-2.0 02/21/2018 Pt Gvw4005 Mod intensity - 2.0-3.0 02/21/2018 Pt Gtv8420 Hi intensity - 3.0-4.0 02/21/2018 Pt Zyz4078 PT 27.0 seconds 01/15/2018 Pt Bym4820 INR 2.5 01/15/2018 Pt Yuq4458 Low Intensity - 1.5-2.0 01/15/2018 Pt Dtq2243 Mod intensity - 2.0-3.0 01/15/2018 Pt Qde0483 Hi intensity - 3.0-4.0 01/15/2018 Metabolic Ord15 NA 139 mEq/L 01/15/2018 Metabolic Ord15 K 4.5 mEq/L 01/15/2018 Metabolic Ord15 CL 101 mEq/L 01/15/2018 Metabolic Ord15 CO2 28.0 mEq/L 01/15/2018 Metabolic Ord15 GLUCOSE 111 mg/dL 01/15/2018 Metabolic Ord15 BUN 17 mg/dL 01/15/2018 Metabolic Ord15 Creat 1.2 mg/dL 01/15/2018 Metabolic Ord15 B/C Ratio 14.5 Ratio 01/15/2018 Metabolic Ord15 eGFR 47 ml/min/1.73m2 01/15/2018 Metabolic Ord15 Osmo 280 mOsmo 01/15/2018 Metabolic Ord15 ANION GAP 15 01/15/2018 Metabolic Ord15 CALCIUM 9.2 mg/dL 01/15/2018 Pt Att7626 PT 29.3 seconds 12/18/2017 Pt Hid0826 INR 2.8 12/18/2017 Pt Exy3507 Low Intensity - 1.5-2.0 12/18/2017 Pt Qeg3538 Mod intensity - 2.0-3.0 12/18/2017 Pt Web0564 Hi intensity - 3.0-4.0 12/18/2017 Metabolic Ord15 NA 138 mEq/L 12/18/2017 Metabolic Ord15 K 3.7 mEq/L 12/18/2017 Metabolic Ord15 CL 100 mEq/L 12/18/2017 Metabolic Ord15 CO2 31.0 mEq/L 12/18/2017 Metabolic Ord15 GLUCOSE 78 mg/dL 12/18/2017 Metabolic Ord15 BUN 17 mg/dL 12/18/2017 Metabolic Ord15 Creat 1.1 mg/dL 12/18/2017 Metabolic Ord15 B/C Ratio 15.6 Ratio 12/18/2017 Metabolic Ord15 eGFR 51 ml/min/1.73m2 12/18/2017 Metabolic Ord15 Osmo 276 mOsmo 12/18/2017 Metabolic Ord15 ANION GAP 11 12/18/2017 Metabolic Ord15 CALCIUM 9.7 mg/dL 12/18/2017 Comp Metabolic Mco770 NA 138 mEq/L 09/29/2015 Comp Metabolic Zne111 K 4.6 mEq/L 09/29/2015 Comp Metabolic Mns087 CL 102 mEq/L 09/29/2015 Comp Metabolic Zbd620 CO2 28.0 mEq/L 09/29/2015 Comp Metabolic Glj872 ANION GAP 13 09/29/2015 Comp Metabolic Rub911 GLUCOSE 83 mg/dL 09/29/2015 Comp Metabolic Rxf811 Creat 1.1 mg/dL 09/29/2015 Comp Metabolic Kyu173 eGFR 52 ml/min/1.73m2 09/29/2015 Comp Metabolic Quo618 BUN 18 mg/dL 09/29/2015 Comp Metabolic Bkm882 B/C Ratio 16.7 Ratio 09/29/2015 Comp Metabolic Xml603 CALCIUM 9.6 mg/dL 09/29/2015 Comp Metabolic Yju908 ALK PHOS 188 U/L 09/29/2015 Comp Metabolic Fod242 AST(SGOT) 19 U/L 09/29/2015 Comp Metabolic Daj359 ALT(SGPT) 12 U/L 09/29/2015 Comp Metabolic Dvl959 BILI T 0.6 mg/dL 09/29/2015 Comp Metabolic Uzk335 ALBUMIN 4.0 g/dL 09/29/2015 Comp Metabolic Ijb740 TPRO 6.6 g/dL 09/29/2015 Comp Metabolic Ape496 GLOB 2.6 g/dL 09/29/2015 Comp Metabolic Zxv051 A/G Ratio 1.5 Ratio 09/29/2015 Comp Metabolic Aml323 Osmo 277 mOsmo 09/29/2015 Cbc With Differential [...] 84.1 fl 09/29/2015 Cbc With Differential Ord2 [place]% 18.3 % 09/29/2015 Cbc With Differential Ord2 [...] 1.41 K/ul 09/29/2015 Cbc With Differential Ord2 [place] ABS# 1.8 K/ul 09/29/2015 Cbc With Differential Ord2 Eos ABS# 0.2 K/ul 09/29/2015 Cbc With Differential Ord2 Baso ABS# 0.1 K/ul 09/29/2015 Comp Metabolic Ebi006 NA 134 mEq/L 09/22/2015 Comp Metabolic Gzz333 K 4.7 mEq/L 09/22/2015 Comp Metabolic Bhe491 CL 98 mEq/L 09/22/2015 Comp Metabolic Mky120 CO2 26.0 mEq/L 09/22/2015 Comp Metabolic Nzx346 ANION GAP 15 09/22/2015 Comp Metabolic Bpd972 GLUCOSE 83 mg/dL 09/22/2015 Comp Metabolic Wdl168 Creat 1.1 mg/dL 09/22/2015 Comp Metabolic Qla021 eGFR 52 ml/min/1.73m2 09/22/2015 Comp Metabolic Yvz531 BUN 19 mg/dL 09/22/2015 Comp Metabolic Knu696 B/C Ratio 17.8 Ratio 09/22/2015 Comp Metabolic Yhy510 CALCIUM 9.4 mg/dL 09/22/2015 Comp Metabolic Omd090 ALK PHOS 182 U/L 09/22/2015 Comp Metabolic Vbs608 AST(SGOT) 30 U/L 09/22/2015 Comp Metabolic Hud213 ALT(SGPT) 16 U/L 09/22/2015 Comp Metabolic Ett940 BILI T 0.8 mg/dL 09/22/2015 Comp Metabolic Rqz084 ALBUMIN 3.9 g/dL 09/22/2015 Comp Metabolic Zfp821 TPRO 6.8 g/dL 09/22/2015 Comp Metabolic Ell672 GLOB 2.9 g/dL 09/22/2015 Comp Metabolic Etd530 A/G Ratio 1.3 Ratio 09/22/2015 Comp Metabolic Ddz960 Osmo 270 mOsmo 09/22/2015 Cbc With Differential Ord2 WBC 10.76 K/ul 09/22/2015 Cbc With Differential Ord2 RBC 3.69 M/ul 09/22/2015 Cbc With Differential Ord2 HGB 9.5 g/dl 09/22/2015 Cbc With Differential Ord2 Neut% 66.6 % 09/22/2015 Cbc With Differential Ord2 HCT 30.7 % 09/22/2015 Cbc With Differential Ord2 MCV 83.2 fl 09/22/2015 Cbc With Differential Ord2 Lymph% 16.8 % 09/22/2015 Cbc With Differential Ord2 [place]% 15.4 % 09/22/2015 Cbc With Differential Ord2 MCH 25.7 pg 09/22/2015 Cbc With Differential Ord2 Eos% 0.7 % 09/22/2015 Cbc With Differential Ord2 MCHC 30.9 pg 09/22/2015 Cbc With Differential Ord2 Baso% 0.5 % 09/22/2015 Cbc With Differential Ord2 PLT 345 K/ul 09/22/2015 Cbc With Differential Ord2 Neut ABS# 7.16 K/ul 09/22/2015 Cbc With Differential Ord2 RDW 18.5 % 09/22/2015 Cbc With Differential Ord2 Lymph ABS# 1.81 K/ul 09/22/2015 Cbc With Differential Ord2 [place] ABS# 1.7 K/ul 09/22/2015 Cbc With Differential Ord2 Eos ABS# 0.1 K/ul 09/22/2015 Cbc With Differential Ord2 Baso ABS# 0.1 K/ul 09/22/2015 Cbc With Differential Ord2 WBC 10.52 K/ul 06/02/2015 Cbc With Differential Ord2 RBC 3.16 M/ul 06/02/2015 Cbc With Differential Ord2 HGB 8.8 g/dl 06/02/2015 Cbc With Differential Ord2 HCT 27.8 % 06/02/2015 Cbc With Differential Ord2 Neut% 66.1 % 06/02/2015 Cbc With Differential Ord2 MCV 88.0 fl 06/02/2015 Cbc With Differential Ord2 Lymph% 16.5 % 06/02/2015 Cbc With Differential Ord2 [place]% 16.6 % 06/02/2015 Cbc With Differential Ord2 MCH 27.8 pg 06/02/2015 Cbc With Differential Ord2 MCHC 31.7 pg 06/02/2015 Cbc With Differential Ord2 Eos% 0.5 % 06/02/2015 Cbc With Differential Ord2 Baso% 0.3 % 06/02/2015 Cbc With Differential Ord2 PLT 457 K/ul 06/02/2015 Cbc With Differential Ord2 RDW 16.6 % 06/02/2015 Cbc With Differential Ord2 Neut ABS# 6.95 K/ul 06/02/2015 Cbc With Differential Ord2 Lymph ABS# 1.74 K/ul 06/02/2015 Cbc With Differential Ord2 [place] ABS# 1.8 K/ul 06/02/2015 Cbc With Differential Ord2 Eos ABS# 0.1 K/ul 06/02/2015 Cbc With Differential Ord2 Baso ABS# 0.0 K/ul 06/02/2015 Cbc With Differential Ord2 New Analyzer Notice Please note new ref ranges starting 03-11-2015 due to implemntation of new five part differential hematolgy analyzer. 06/02/2015 Pt Vus0324 PT 21.8 seconds 06/02/2015 Pt Hnf7421 INR 2.0 06/02/2015 Pt Rxt6217 Low Intensity - 1.5-2.0 06/02/2015 Pt Itj9060 Mod intensity - 2.0-3.0 06/02/2015 Pt Emb3389 Hi intensity - 3.0-4.0 06/02/2015 Comp Metabolic Koi615 NA 132 mEq/L 06/02/2015 Comp Metabolic Dlb400 K 4.4 mEq/L 06/02/2015 Comp Metabolic Dsu305 CL 94 mEq/L 06/02/2015 Comp Metabolic Fux000 CO2 26.0 mEq/L 06/02/2015 Comp Metabolic Jjx892 ANION GAP 16 06/02/2015 Comp Metabolic Pcv349 GLUCOSE 97 mg/dL 06/02/2015 Comp Metabolic Yra320 Creat 1.2 mg/dL 06/02/2015 Comp Metabolic Loa984 eGFR 46 ml/min/1.73m2 06/02/2015 Comp Metabolic Ihy691 BUN 19 mg/dL 06/02/2015 Comp Metabolic Iaa762 B/C Ratio 15.8 Ratio 06/02/2015 Comp Metabolic Vlb599 CALCIUM 9.4 mg/dL 06/02/2015 Comp Metabolic Bxy221 ALK PHOS 178 U/L 06/02/2015 Comp Metabolic Tom476 AST(SGOT) 32 U/L 06/02/2015 Comp Metabolic Uto646 ALT(SGPT) 31 U/L 06/02/2015 Comp Metabolic Nyk067 BILI T 0.6 mg/dL 06/02/2015 Comp Metabolic Cwu698 ALBUMIN 4.0 g/dL 06/02/2015 Comp Metabolic Puu221 TPRO 6.5 g/dL 06/02/2015 Comp Metabolic Wqm682 GLOB 2.5 g/dL 06/02/2015 Comp Metabolic Mhw692 A/G Ratio 1.6 Ratio 06/02/2015 Comp Metabolic Yyt797 Osmo 267 mOsmo 06/02/2015 B12 Cpp436 B12 160.00 pg/ml 04/01/2015 Iron Ord72 Iron 39 ug/dl 04/01/2015 Vitamin D 25 Oh Dcw6362 VITAMIN D, 25 HYDROXY 61.20 ng/mL Tsh Ord6 hTSH II 1.87 uIU/mL 03/31/2015 Pt Xzn2405 PT 36.9 seconds 03/31/2015 Pt Lft2409 INR 3.9 03/31/2015 Pt Nhk7328 Low Intensity - 1.5-2.0 03/31/2015 Pt Vkd7491 Mod intensity - 2.0-3.0 03/31/2015 Pt Bgu6704 Hi intensity - 3.0-4.0 03/31/2015 Comp Metabolic Ydt315 NA 131 mEq/L 03/31/2015 Comp Metabolic Yip386 K 5.3 mEq/L 03/31/2015 Comp Metabolic Xra626 CL 97 mEq/L 03/31/2015 Comp Metabolic Wfa270 CO2 24.0 mEq/L 03/31/2015 Comp Metabolic Ozn782 ANION GAP 15 03/31/2015 Comp Metabolic Scb626 GLUCOSE 84 mg/dL 03/31/2015 Comp Metabolic Gku330 Creat 1.3 mg/dL 03/31/2015 Comp Metabolic Sxy136 eGFR 42 ml/min/1.73m2 03/31/2015 Comp Metabolic Tes944 BUN 26 mg/dL 03/31/2015 Comp Metabolic Tje595 B/C Ratio 20.2 Ratio 03/31/2015 Comp Metabolic Riv724 CALCIUM 9.4 mg/dL 03/31/2015 Comp Metabolic Jvx602 ALK PHOS 172 U/L 03/31/2015 Comp Metabolic Ghg448 AST(SGOT) 21 U/L 03/31/2015 Comp Metabolic Ywb120 ALT(SGPT) 27 U/L 03/31/2015 Comp Metabolic Uoy520 BILI T 0.5 mg/dL 03/31/2015 Comp Metabolic Rpb767 ALBUMIN 4.0 g/dL 03/31/2015 Comp Metabolic Qgd462 TPRO 6.8 g/dL 03/31/2015 Comp Metabolic Okm709 GLOB 2.8 g/dL 03/31/2015 Comp Metabolic Dor810 A/G Ratio 1.4 Ratio 03/31/2015 Comp Metabolic Piv013 Osmo 267 mOsmo 03/31/2015 Cbc With Differential Ord2 WBC 11.58 K/ul 03/31/2015 Cbc With Differential Ord2 RBC 3.71 M/ul 03/31/2015 Cbc With Differential Ord2 HGB 10.5 g/dl 03/31/2015 Cbc With Differential Ord2 Neut% 71.2 % 03/31/2015 Cbc With Differential Ord2 HCT 33.0 % 03/31/2015 Cbc With Differential Ord2 Lymph% 14.0 % 03/31/2015 Cbc With Differential Ord2 MCV 88.9 fl 03/31/2015 Cbc With Differential Ord2 [place]% 14.0 % 03/31/2015 Cbc With Differential Ord2 MCH 28.3 pg 03/31/2015 Cbc With Differential Ord2 MCHC 31.8 pg 03/31/2015 Cbc With Differential Ord2 Eos% 0.5 % 03/31/2015 Cbc With Differential Ord2 Baso% 0.3 % 03/31/2015 Cbc With Differential Ord2 PLT 414 K/ul 03/31/2015 Cbc With Differential Ord2 Neut ABS# 8.25 K/ul 03/31/2015 Cbc With Differential Ord2 RDW 17.4 % 03/31/2015 Cbc With Differential Ord2 Lymph ABS# 1.62 K/ul 03/31/2015 Cbc With Differential Ord2 [place] ABS# 1.6 K/ul 03/31/2015 Cbc With Differential [...] Magnesium Ord90 Mag 2.0 mg/dL 09/19/2014 Pt Lhk7239 PT 29.1 seconds 09/19/2014 Pt Ivn2838 INR 2.9 09/19/2014 Pt Auz1086 Low Intensity - 1.5-2.0 09/19/2014 Pt Uce4105 Mod intensity - 2.0-3.0 09/19/2014 Pt Bqt5803 Hi intensity - 3.0-4.0 09/19/2014 Tsh Ord6 hTSH II 1.40 uIU/mL 09/19/2014 Lipid Ord30 CHOL 216 mg/dL 09/19/2014 Lipid Ord30 HDL 78.0 mg/dl 09/19/2014 Lipid Ord30 TRIG 85 mg/dL 09/19/2014 Lipid Ord30 LDL 121 mg/dL 09/19/2014 Lipid Ord30 C/HDL 2.8 Ratio 09/19/2014 Vitamin D 25 Oh Afk5264 VITAMIN D, 25 HYDROXY 14.13 ng/mL Comp Metabolic Glr650 NA 134 mEq/L 09/19/2014 Comp Metabolic Pqd351 K 4.7 mEq/L 09/19/2014 Comp Metabolic Yuj943 CL 98 mEq/L 09/19/2014 Comp Metabolic Cuh424 CO2 27.0 mEq/L 09/19/2014 Comp Metabolic Tee131 ANION GAP 14 09/19/2014 Comp Metabolic Ama007 GLUCOSE 94 mg/dL 09/19/2014 Comp Metabolic Ywb871 Creat 1.1 mg/dL 09/19/2014 Comp Metabolic Yuv752 eGFR 49 ml/min/1.73m2 09/19/2014 Comp Metabolic Cii893 BUN 14 mg/dL 09/19/2014 Comp Metabolic Seg507 B/C Ratio 12.3 Ratio 09/19/2014 Comp Metabolic Vvz407 CALCIUM 9.7 mg/dL 09/19/2014 Comp Metabolic Xpz717 ALK PHOS 150 U/L 09/19/2014 Comp Metabolic Yiz165 AST(SGOT) 16 U/L 09/19/2014 Comp Metabolic Axg412 ALT(SGPT) 9 U/L 09/19/2014 Comp Metabolic Ioe626 BILI T 0.8 mg/dL 09/19/2014 Comp Metabolic Fjk331 ALBUMIN 3.9 g/dL 09/19/2014 Comp Metabolic Fqr124 TPRO 6.8 g/dL 09/19/2014 Comp Metabolic Wli780 GLOB 2.9 g/dL 09/19/2014 Comp Metabolic Erj104 A/G Ratio 1.3 Ratio 09/19/2014 Comp Metabolic Drl638 Osmo 268 mOsmo 09/19/2014 Cbc With Differential [...] Review of Systems System Result Effective Dates Gastrointestinal No abdominal pain 2018 Gastrointestinal No constipation 2018 Gastrointestinal No diarrhea 03/27/2018 Constitutional recent illness 03/27/2018 Constitutional No anorexia 03/27/2018 Constitutional No night sweats 2018 Constitutional No chills 03/27/2018 Constitutional No diaphoresis 03/27/2018 Constitutional fatigue 03/27/2018 Constitutional No fever 03/27/2018 Constitutional No malaise 03/27/2018 Constitutional No insomnia 03/27/2018 Constitutional No weight loss 03/27/2018 Constitutional No weight gain 03/27/2018 Eyes No eye erythema 03/27/2018 Eyes No eye discharge 03/27/2018 Cardiovascular No chest pain/pressure Cardiovascular dyspnea 03/27/2018 Cardiovascular edema 03/27/2018 Respiratory No cough 03/27/2018 Ears/Nose/Throat/Neck No dizziness 2018 Genitourinary/Nephrology No dysuria 03/27 Musculoskeletal joint complaint 2018 Musculoskeletal shoulder pain 03/27/2018 Dermatologic No rash 03/27/2018 Neurologic No alteration of consciousness 03/27/2018 Psychiatric anxiety 03/27/2018 Gastrointestinal abdominal pain 2018 Gastrointestinal No constipation 2018 Gastrointestinal diarrhea 03/15/2018 Gastrointestinal gastroesophageal reflux 03/15/2018 Constitutional No recent illness 2018 Constitutional No anorexia 03/15/2018 Constitutional No night sweats 2018 Constitutional No chills 03/15/2018 Constitutional No diaphoresis 03/15/2018 Constitutional fatigue 03/15/2018 Constitutional No fever 03/15/2018 Constitutional No insomnia 03/15/2018 Constitutional No malaise 03/15/2018 Constitutional No weight loss 03/15/2018 Constitutional No weight gain 03/15/2018 Eyes No eye erythema 03/15/2018 Eyes No eye discharge 03/15/2018 Ears/Nose/Throat/Neck No dizziness 2018 Ears/Nose/Throat/Neck No headache 2018 Cardiovascular No chest pain/pressure Cardiovascular fatigue 03/15/2018 Cardiovascular hypertension 03/15/2018 Cardiovascular edema 03/15/2018 Respiratory No cough 03/15/2018 Genitourinary/Nephrology No dysuria 03/15 Musculoskeletal joint complaint 2018 Dermatologic No rash 03/15/2018 Neurologic No alteration of consciousness 03/15/2018 Constitutional No recent illness 2017 Constitutional No chills 12/12/2017 Constitutional No diaphoresis 12/12/2017 Constitutional fatigue 12/12/2017 Constitutional No fever 12/12/2017 Constitutional No insomnia 12/12/2017 Constitutional No malaise 12/12/2017 Eyes No eye discharge 12/12/2017 Eyes No eye erythema 12/12/2017 Ears/Nose/Throat/Neck dizziness 2017 Ears/Nose/Throat/Neck No headache 2017 Cardiovascular No chest pain/pressure Cardiovascular dyspnea 12/12/2017 Cardiovascular edema 12/12/2017 Cardiovascular hypertension 12/12/2017 Respiratory No cough 12/12/2017 Gastrointestinal No abdominal pain 2017 Gastrointestinal No constipation 2017 Gastrointestinal No diarrhea 12/12/2017 Genitourinary/Nephrology No dysuria 12/12 Musculoskeletal back pain 12/12/2017 Musculoskeletal joint complaint 2017 Dermatologic No rash 12/12/2017 Neurologic No alteration of consciousness 12/12/2017 Psychiatric anxiety 12/12/2017 Psychiatric No depression 12/12/2017 Endocrine No cold sensitivity 12/12/2017 Psychiatric disturbances of memory 2017 Psychiatric disturbances of emotion 12/12 Constitutional No recent illness 2017 Constitutional No anorexia 09/05/2017 Constitutional No night sweats 2017 Constitutional No chills 09/05/2017 Constitutional No diaphoresis 09/05/2017 Constitutional fatigue 09/05/2017 Constitutional No fever 09/05/2017 Constitutional No insomnia 09/05/2017 Constitutional No malaise 09/05/2017 Eyes No eye discharge 09/05/2017 Eyes No eye erythema 09/05/2017 Ears/Nose/Throat/Neck dizziness 2017 Ears/Nose/Throat/Neck No headache 2017 Cardiovascular No chest pain/pressure 11/2017 Cardiovascular dyspnea 09/05/2017 Cardiovascular edema 09/05/2017 Cardiovascular hypertension 09/05/2017 Respiratory No cough 09/05/2017 Gastrointestinal No abdominal pain 2017 Gastrointestinal No constipation 2017 Gastrointestinal No diarrhea 09/05/2017 Genitourinary/Nephrology No dysuria 09/05 Musculoskeletal back pain 09/05/2017 Musculoskeletal joint complaint 2017 Dermatologic No rash 09/05/2017 Neurologic No alteration of consciousness 09/05/2017 Psychiatric anxiety 09/05/2017 Psychiatric No depression 09/05/2017 Endocrine No cold sensitivity 09/05/2017 Psychiatric disturbances of thinking 11/2017 Constitutional No recent illness 2017 Constitutional No anorexia 05/09/2017 Constitutional No night sweats 2017 Constitutional No chills 05/09/2017 Constitutional No diaphoresis 05/09/2017 Constitutional fatigue 05/09/2017 Constitutional No fever 05/09/2017 Constitutional No insomnia 05/09/2017 Constitutional No malaise 05/09/2017 Eyes No eye discharge 05/09/2017 Eyes No eye erythema 05/09/2017 Ears/Nose/Throat/Neck dizziness 2017 Ears/Nose/Throat/Neck No headache 2017 Cardiovascular No chest pain/pressure Cardiovascular dyspnea 05/09/2017 Cardiovascular edema 05/09/2017 Cardiovascular hypertension 05/09/2017 Respiratory No cough 05/09/2017 Gastrointestinal No abdominal pain 2017 Gastrointestinal No constipation 2017 Gastrointestinal No diarrhea 05/09/2017 Genitourinary/Nephrology No dysuria 05/09 Musculoskeletal back pain 05/09/2017 Musculoskeletal joint complaint 2017 Dermatologic No rash 05/09/2017 Neurologic No alteration of consciousness 05/09/2017 Psychiatric anxiety 05/09/2017 Psychiatric No depression 05/09/2017 Endocrine No cold sensitivity 05/09/2017 Constitutional No recent illness 2017 Constitutional No [...] 1994 Constitutional general appearance Overall: well developed 03/27/2018 None Full Exam - General 1994 Constitutional general appearance Overall: in no acute distress 03/27/2018 None Full Exam - General 1994 Constitutional general appearance Overall: well nourished 03/27/2018 None Full Exam - General 1994 Eyes conjunctiva /eyelids Overall: conjunctiva clear 03/27/2018 None Full Exam - General 1994 Eyes conjunctiva /eyelids Overall: cornea clear 03/27/2018 None Full Exam - General 1994 Eyes conjunctiva /eyelids Overall: eyelids normal 03/27/2018 None Full Exam - General 1994 Eyes pupils and irises Overall: pupils equal, round, reactive to light and accomodation 03/27/2018 None Full Exam - General 1994 Ears/Nose/Throat otoscopic exam Overall: external auditory canals clear 03/27/2018 None Full Exam - General 1994 Ears/Nose/Throat otoscopic exam Overall: tympanic membranes clear 03/27/2018 None Full Exam - General 1994 Ears/Nose/Throat lips/teeth/gingiva Overall: benign lips 03/27/2018 None Full Exam - General 1994 Ears/Nose/Throat lips/teeth/gingiva Overall: normal dentition 03/27/2018 None Full Exam - General 1995 Ears/Nose/Throat lips/teeth/gingiva Overall: benign gingiva 03/27/2018 None Full Exam - General 1994 Ears/Nose/Throat lips/teeth/gingiva Overall: no masses 03/27/2018 None Full Exam - General 1995 Ears/Nose/Throat oral cavity/pharynx/larynx Overall: oral mucosa clear 03/27/2018 None Full Exam - General 1994 Ears/Nose/Throat oral cavity/pharynx/larynx Overall: oropharyngeal mucosa clear 03/27/2018 None Full Exam - General 1994 Ears/Nose/Throat oral cavity/pharynx/larynx Overall: no masses 03/27/2018 None Full Exam - General 1994 Respiratory auscultation Overall: breath sounds clear bilaterally 03/27/2018 None Full Exam - General 1994 Respiratory respiratory effort/rhythm Overall: no retractions 03/27/2018 None Full Exam - General 1994 Respiratory respiratory effort/rhythm Overall: normal rate 03/27/2018 None Full Exam - General 1994 Cardiovascular extremities Overall: no clubbing 03/27/2018 None Full Exam - General 1994 Cardiovascular auscultation of heart Rate: regular rate 03/27/2018 None Full Exam - General 1994 Cardiovascular auscultation of heart Rhythm: regular rhythm 03/27/2018 None Full Exam - General 1994 Abdomen abdominal exam Overall: no tenderness 03/27/2018 None Full Exam - General 1994 Abdomen abdominal exam Overall: normal bowel sounds 03/27/2018 None Full Exam - General 1994 Musculoskeletal gait and station Overall: normal gait 03/27/2018 None Full Exam - General 1994 Musculoskeletal gait and station Overall: normal station 03/27/2018 None Full Exam - General 1994 Integument inspection of skin Overall: no rash, lesions 03/27/2018 None Full Exam - General 1994 Psychiatric orientation/consciousness Oriented to person: yes 03/27/2018 None Full Exam - General 1994 Psychiatric orientation/consciousness Oriented to time: no 03/27/2018 None Full Exam - General 1994 Psychiatric mood and affect Overall: normal mood and affect 03/27/2018 None Full Exam - Cardiology Constitutional general appearance Assistive Device: wheelchair 03/27/2018 None Full Exam - Cardiology Psychiatric orientation/consciousness Oriented to place: yes 03/27/2018 None Full Exam - General 1994 Constitutional general appearance Overall: well developed 03/15/2018 None Full Exam - General 1994 Constitutional general appearance Overall: in no acute distress 03/15/2018 None Full Exam - General 1994 Constitutional general appearance Overall: well nourished 03/15/2018 None Full Exam - General 1994 Eyes conjunctiva /eyelids Overall: conjunctiva clear 03/15/2018 None Full Exam - General 1994 Eyes conjunctiva /eyelids Overall: cornea clear 03/15/2018 None Full Exam - General 1994 Eyes conjunctiva /eyelids Overall: eyelids normal 03/15/2018 None Full Exam - General 1994 Eyes pupils and irises Overall: pupils equal, round, reactive to light and accomodation 03/15/2018 None Full Exam - General 1995 Ears/Nose/Throat otoscopic exam Overall: external auditory canals clear 03/15/2018 None Full Exam - General 1995 Ears/Nose/Throat otoscopic exam Overall: tympanic membranes clear 03/15/2018 None Full Exam - General 1995 Ears/Nose/Throat lips/teeth/gingiva Overall: benign lips 03/15/2018 None Full Exam - General 1995 Ears/Nose/Throat lips/teeth/gingiva Overall: normal dentition 03/15/2018 None Full Exam - General 1995 Ears/Nose/Throat lips/teeth/gingiva Overall: benign gingiva 03/15/2018 None Full Exam - General 1995 Ears/Nose/Throat lips/teeth/gingiva Overall: no masses 03/15/2018 None Full Exam - General 1994 Ears/Nose/Throat oral cavity/pharynx/larynx Overall: oral mucosa clear 03/15/2018 None Full Exam - General 1995 Ears/Nose/Throat oral cavity/pharynx/larynx Overall: oropharyngeal mucosa clear 03/15/2018 None Full Exam - General 1995 Ears/Nose/Throat oral cavity/pharynx/larynx Overall: no masses 03/15/2018 None Full Exam - General 1994 Respiratory auscultation Overall: breath sounds clear bilaterally 03/15/2018 None Full Exam - General 1994 Respiratory respiratory effort/rhythm Overall: no retractions 03/15/2018 None Full Exam - General 1994 Respiratory respiratory effort/rhythm Overall: normal rate 03/15/2018 None Full Exam - General 1994 Cardiovascular extremities Overall: no clubbing 03/15/2018 None Full Exam - General 1994 Cardiovascular auscultation of heart Rate: regular rate 03/15/2018 None Full Exam - General 1994 Cardiovascular auscultation of heart Rhythm: regular rhythm 03/15/2018 None Full Exam - General 1994 Musculoskeletal gait and station Overall: normal gait 03/15/2018 None Full Exam - General 1994 Musculoskeletal gait and station Overall: normal station 03/15/2018 None Full Exam - General 1994 Integument inspection of skin Overall: no rash, lesions 03/15/2018 None Full Exam - General 1994 Psychiatric orientation/consciousness Oriented to person: yes 03/15/2018 None Full Exam - General 1994 Psychiatric orientation/consciousness Oriented to place: no 03/15/2018 None Full Exam - General 1994 Psychiatric orientation/consciousness Oriented to time: no 03/15/2018 None Full Exam - General 1994 Psychiatric mood and affect Overall: normal mood and affect 03/15/2018 None Full Exam - Cardiology Constitutional general appearance Assistive Device: wheelchair 03/15/2018 None Full Exam - Cardiology Abdomen abdominal exam Left lower quadrant: tender to palpation 03/15/2018 None Full Exam - Cardiology Abdomen abdominal exam Right lower quadrant: tender to palpation 03/15/2018 None Full Exam - Cardiology Abdomen abdominal exam Overall: normal bowel sounds 03/15/2018 None Full Exam - General 1994 Constitutional general appearance Overall: well developed 12/12/2017 None Full Exam - General 1994 Constitutional general appearance Overall: in no acute distress 12/12/2017 None Full Exam - General 1994 Constitutional general appearance Overall: well nourished 12/12/2017 None Full Exam - General 1994 Constitutional general appearance Assistive Device: walker 12/12/2017 None Full Exam - General 1994 Eyes conjunctiva /eyelids Overall: conjunctiva clear 12/12/2017 None Full Exam - General 1994 Eyes conjunctiva /eyelids Overall: cornea clear 12/12/2017 None Full Exam - General 1994 Eyes conjunctiva /eyelids Overall: eyelids normal 12/12/2017 None Full Exam - General 1994 Eyes pupils and irises Overall: pupils equal, round, reactive to light and accomodation 12/12/2017 None Full Exam - General 1994 Ears/Nose/Throat otoscopic exam Overall: external auditory canals clear 12/12/2017 None Full Exam - General 1994 Ears/Nose/Throat otoscopic exam Overall: tympanic membranes clear 12/12/2017 None Full Exam - General 1994 Ears/Nose/Throat lips/teeth/gingiva Overall: benign lips 12/12/2017 None Full Exam - General 1994 Ears/Nose/Throat lips/teeth/gingiva Overall: normal dentition 12/12/2017 None Full Exam - General 1994 Ears/Nose/Throat lips/teeth/gingiva Overall: benign gingiva 12/12/2017 None Full Exam - General 1994 Ears/Nose/Throat lips/teeth/gingiva Overall: no masses 12/12/2017 None Full Exam - General 1994 Ears/Nose/Throat oral cavity/pharynx/larynx Overall: oral mucosa clear 12/12/2017 None Full Exam - General 1994 Ears/Nose/Throat oral cavity/pharynx/larynx Overall: oropharyngeal mucosa clear 12/12/2017 None Full Exam - General 1994 Ears/Nose/Throat oral cavity/pharynx/larynx Overall: no masses 12/12/2017 None Full Exam - General 1994 Respiratory auscultation Overall: breath sounds clear bilaterally 12/12/2017 None Full Exam - General 1994 Respiratory respiratory effort/rhythm Overall: no retractions 12/12/2017 None Full Exam - General 1994 Respiratory respiratory effort/rhythm Overall: normal rate 12/12/2017 None Full Exam - General 1994 Cardiovascular extremities Overall: no clubbing 12/12/2017 None Full Exam - General 1994 Cardiovascular auscultation of heart Rate: regular rate 12/12/2017 None Full Exam - General 1994 Cardiovascular auscultation of heart Rhythm: regular rhythm 12/12/2017 None Full Exam - General 1994 Abdomen abdominal exam Overall: no tenderness 12/12/2017 None Full Exam - General 1994 Abdomen abdominal exam Overall: normal bowel sounds 12/12/2017 None Full Exam - General 1994 Musculoskeletal gait and station Overall: normal gait 12/12/2017 None Full Exam - General 1994 Musculoskeletal gait and station Overall: normal station 12/12/2017 None Full Exam - General 1994 Integument inspection of skin Overall: no rash, lesions 12/12/2017 None Full Exam - General 1994 Psychiatric mood and affect Overall: normal mood and affect 12/12/2017 None Full Exam - General 1994 Psychiatric orientation/consciousness Oriented to person: yes 12/12/2017 None Full Exam - General 1994 Psychiatric orientation/consciousness Oriented to place: no 12/12/2017 None Full Exam - General 1994 Psychiatric orientation/consciousness Oriented to time: no 12/12/2017 None Full Exam - General 1994 Constitutional general appearance Overall: well developed 09/05/2017 None Full Exam - General 1994 Constitutional general appearance Overall: in no acute distress 09/05/2017 None Full Exam - General 1994 Constitutional general appearance Overall: well nourished 09/05/2017 None Full Exam - General 1994 Constitutional general appearance Assistive Device: walker 09/05/2017 None Full Exam - General 1994 Eyes conjunctiva /eyelids Overall: conjunctiva clear 09/05/2017 None Full Exam - General 1994 Eyes conjunctiva /eyelids Overall: cornea clear 09/05/2017 None Full Exam - General 1994 Eyes conjunctiva /eyelids Overall: eyelids normal 09/05/2017 None Full Exam - General 1994 Eyes pupils and irises Overall: pupils equal, round, reactive to light and accomodation 09/05/2017 None Full Exam - General 1994 Ears/Nose/Throat otoscopic exam Overall: external auditory canals clear 09/05/2017 None Full Exam - General 1994 Ears/Nose/Throat otoscopic exam Overall: tympanic membranes clear 09/05/2017 None Full Exam - General 1994 Ears/Nose/Throat lips/teeth/gingiva Overall: benign lips 09/05/2017 None Full Exam - General 1994 Ears/Nose/Throat lips/teeth/gingiva Overall: normal dentition 09/05/2017 None Full Exam - General 1994 Ears/Nose/Throat lips/teeth/gingiva Overall: benign gingiva 09/05/2017 None Full Exam - General 1994 Ears/Nose/Throat lips/teeth/gingiva Overall: no masses 09/05/2017 None Full Exam - General 1994 Ears/Nose/Throat oral cavity/pharynx/larynx Overall: oral mucosa clear 09/05/2017 None Full Exam - General 1994 Ears/Nose/Throat oral cavity/pharynx/larynx Overall: oropharyngeal mucosa clear 09/05/2017 None Full Exam - General 1995 Ears/Nose/Throat oral cavity/pharynx/larynx Overall: no masses 09/05/2017 None Full Exam - General 1994 Respiratory auscultation Overall: breath sounds clear bilaterally 09/05/2017 None Full Exam - General 1994 Respiratory respiratory effort/rhythm Overall: no retractions 09/05/2017 None Full Exam - General 1994 Respiratory respiratory effort/rhythm Overall: normal rate 09/05/2017 None Full Exam - General 1994 Cardiovascular extremities Overall: no clubbing 09/05/2017 None Full Exam - General 1994 Cardiovascular extremities Edema present: pitting 09/05/2017 None Full Exam - General 1994 Cardiovascular extremities Edema present: severity 1+ 09/05/2017 None Full Exam - General 1994 Cardiovascular extremities Edema present: bilateral 09/05/2017 None Full Exam - General 1994 Cardiovascular extremities Edema present: to leg 09/05/2017 mid calf Full Exam - General 1994 Cardiovascular auscultation of heart Rate: regular rate 09/05/2017 None Full Exam - General 1994 Cardiovascular auscultation of heart Rhythm: regular rhythm 09/05/2017 None Full Exam - General 1994 Abdomen abdominal exam Overall: no tenderness 09/05/2017 None Full Exam - General 1994 Abdomen abdominal exam Overall: normal bowel sounds 09/05/2017 None Full Exam - General 1994 Musculoskeletal gait and station Overall: normal gait 09/05/2017 None Full Exam - General 1994 Musculoskeletal gait and station Overall: normal station 09/05/2017 None Full Exam - General 1994 Integument inspection of skin Overall: no rash, lesions 09/05/2017 None Full Exam - General 1994 Psychiatric orientation/consciousness Overall: oriented to person, place and time 09/05/2017 None Full Exam - General 1994 Psychiatric mood and affect Overall: normal mood and affect 09/05/2017 None Full Exam - General 1994 Constitutional general appearance Overall: well developed 05/09/2017 None Full Exam - General 1994 Constitutional general appearance Overall: in no acute distress 05/09/2017 None Full Exam - General 1994 Constitutional general appearance Overall: well nourished 05/09/2017 None Full Exam - General 1994 Constitutional general appearance Assistive Device: walker 05/09/2017 None Full Exam - General 1994 Eyes conjunctiva /eyelids Overall: conjunctiva clear 05/09/2017 None Full Exam - General 1994 Eyes conjunctiva /eyelids Overall: cornea clear 05/09/2017 None Full Exam - General 1994 Eyes conjunctiva /eyelids Overall: eyelids normal 05/09/2017 None Full Exam - General 1994 Eyes pupils and irises Overall: pupils equal, round, reactive to light and accomodation 05/09/2017 None Full Exam - General 1994 Ears/Nose/Throat otoscopic exam Overall: external auditory canals clear 05/09/2017 None Full Exam - General 1994 Ears/Nose/Throat otoscopic exam Overall: tympanic membranes clear 05/09/2017 None Full Exam - General 1994 Ears/Nose/Throat lips/teeth/gingiva Overall: benign lips 05/09/2017 None Full Exam - General 1994 Ears/Nose/Throat lips/teeth/gingiva Overall: normal dentition 05/09/2017 None Full Exam - General 1994 Ears/Nose/Throat lips/teeth/gingiva Overall: benign gingiva 05/09/2017 None Full Exam - General 1994 Ears/Nose/Throat lips/teeth/gingiva Overall: no masses 05/09/2017 None Full Exam - General 1994 Ears/Nose/Throat oral cavity/pharynx/larynx Overall: oral mucosa clear 05/09/2017 None Full Exam - General 1994 Ears/Nose/Throat oral cavity/pharynx/larynx Overall: oropharyngeal mucosa clear 05/09/2017 None Full Exam - General 1994 Ears/Nose/Throat oral cavity/pharynx/larynx Overall: no masses 05/09/2017 None Full Exam - General 1994 Respiratory auscultation Overall: breath sounds clear bilaterally 05/09/2017 None Full Exam - General 1994 Respiratory respiratory effort/rhythm Overall: no retractions 05/09/2017 None Full Exam - General 1994 Respiratory respiratory effort/rhythm Overall: normal rate 05/09/2017 None Full Exam - General 1994 Cardiovascular extremities Overall: no clubbing 05/09/2017 None Full Exam - General 1994 Cardiovascular extremities Edema present: pitting 05/09/2017 None Full Exam - General 1994 Cardiovascular extremities Edema present: bilateral 05/09/2017 None Full Exam - General 1994 Cardiovascular auscultation of heart Rate: regular rate 05/09/2017 None Full Exam - General 1994 Cardiovascular auscultation of heart Rhythm: regular rhythm 05/09/2017 None Full Exam - General 1994 Abdomen abdominal exam Overall: no tenderness 05/09/2017 None Full Exam - General 1994 Abdomen abdominal exam Overall: normal bowel sounds 05/09/2017 None Full Exam - General 1994 Musculoskeletal gait and station Overall: normal gait 05/09/2017 None Full Exam - General 1994 Musculoskeletal gait and station Overall: normal station 05/09/2017 None Full Exam - General 1994 Integument inspection of skin Overall: no rash, lesions 05/09/2017 None Full Exam - General 1994 Psychiatric orientation/consciousness Overall: oriented to person, place and time 05/09/2017 None Full Exam - General 1994 Psychiatric mood and affect Overall: normal mood and affect 05/09/2017 None Full Exam - General 1994 Cardiovascular extremities Edema present: severity 1+ 05/09/2017 None Full Exam - General 1994 Cardiovascular extremities Edema present: to leg 05/09/2017 mid calf Full Exam - General 1994 Constitutional general [...] Model/CDA Sections, Assigned to/Indira Ibanez SNOMED CT: [id number] CPT-4: [id number] 12/10/2015 TRIAMCINOLONE ACET INJ NOS CPT-4: J3301 01/30/2015 URINALYSIS NONAUTO W/O SCOPE CPT-4: 44055 11/07/2014 ROCEPHIN, PER 250 MG CPT-4: J0696 10/14/2014 TRIAMCINOLONE ACET INJ NOS CPT-4: J3301 10/14/2014 Vital Signs Date Vital 03/27/2018 Blood Pressure 1: 120/62 Code : 8480-6 Heart Rate 1: 58 bpm Height: 5'2" SpO2: 98% Weight: 03/15/2018 Blood Pressure 1: 146/60 Code : 8480-6 BMI: 25.2 Code : 81994-7 Heart Rate 1 : 79 bpm Height: 5'2" SpO2: 98% Weight: 138 lbs 12/12/2017 Blood Pressure 1: 130/60 Code : 8480-6 BMI: 25.2 Code : 08932-8 Heart Rate 1 : 60 bpm Height: 5'2" SpO2: 98% Weight: 138 lbs 09/05/2017 Blood Pressure 1: 108/46 Code : 8480-6 BMI: 24.0 Code : 09827-5 Heart Rate 1 : 70 bpm Height: 5'2" SpO2: 96% Weight: 131 lbs 05/09/2017 Blood Pressure 1: 122/82 Code : 8480-6 BMI: 25.2 Code : 04594-3 Heart Rate 1 : 72 bpm Height: 5'2" SpO2: 95% Weight: 138 lbs 03/07/2017 Blood Pressure 1: 108/52 Code : 8480-6 BMI: 27.6 Code : 99885-1 Heart Rate 1 : 72 bpm Height: 5'2" SpO2: 96% Weight: 151 lbs 01/24/2017 Blood Pressure 1: 126/60 Code : 8480-6 BMI: 27.1 Code : 56478-8 Heart Rate 1 : 60 bpm Height: [...] Code : 8480-6 BMI: 26.8 Code : 96380-9 Heart Rate 1 : 59 bpm Height: 5'2" SpO2: 97% Weight: 146 lbs 8 05/10/2016 Blood Pressure 1: 120/56 Code : 8480-6 BMI: 27.1 Code : 46696-9 Heart Rate 1 : 63 bpm Height: 5'2" SpO2: 97% Weight: 148 lbs 04/25/2016 Blood Pressure 1: 134/66 Code : 8480-6 BMI: 24.9 Code : 30035-6 Heart Rate 1 : 118 bpm Height: 5'2" SpO2: 93% Temperature: 36.8 (C) / 98.3 (F) Weight: 136 lbs 01/14/2016 Blood Pressure 1: 132/78 Code : 8480-6 BMI: 25.6 Code : 38315-8 Heart Rate 1 : 97 bpm Height: 5'2" SpO2: 95% Weight: 140 lbs 12/10/2015 Blood Pressure 1: 118/72 Code : 8480-6 BMI: 26.2 Code : 93529-0 Heart Rate 1 : 68 bpm Height: 5'2" SpO2: 95% Weight: 143 lbs 11/12/2015 Blood Pressure 1: 140/80 Code : 8480-6 BMI: 25.6 Code : 73073-7 Heart Rate 1 : 77 bpm Height: 5'2" SpO2: 93% Weight: 140 lbs 10/08/2015 Blood Pressure 1: 132/60 Code : 8480-6 BMI: 26.2 Code : 54842-4 Heart Rate 1 : 77 bpm Height: 5'2" SpO2: 96% Weight: 143 lbs 09/29/2015 Blood Pressure 1: 130/62 Code : 8480-6 BMI: 27.1 Code : 13576-8 Heart Rate 1 : 86 bpm Height: 5'2" SpO2: 93% Weight: 148 lbs 09/22/2015 Blood Pressure 1: 164/72 Code : 8480-6 BMI: 28.2 Code : 59091-4 Heart Rate 1 : 79 bpm Height: 5'2" SpO2: 92% Weight: 154 lbs 07/21/2015 Blood Pressure 1: 124/70 Code : 8480-6 BMI: 24.5 Code : 54927-4 Heart Rate 1 : 71 bpm Height: 5'2" SpO2: 98% Weight: 134 lbs 06/23/2015 Blood Pressure 1: 122/68 Code : 8480-6 BMI: 25.4 Code : 36682-4 Heart Rate 1 : 78 bpm Height: 5'2" SpO2: 92% Weight: 139 lbs 06/12/2015 Blood Pressure 1: 154/62 Code : 8480-6 BMI: 27.4 Code : 75190-7 Heart Rate 1 : 87 bpm Height: 5'2" SpO2: 94% Weight: 150 lbs 06/02/2015 Blood Pressure 1: 140/68 Code : 8480-6 Heart Rate 1: 90 bpm SpO2: 91% Weight: 142 lbs 03/31/2015 Blood Pressure 1: 120/56 Code : 8480-6 BMI: 23.6 Code : 18758-2 Heart Rate 1 : 82 bpm Height: 5'2" SpO2: 98% Weight: 129 lbs 01/30/2015 Blood Pressure 1: 108/62 Code : 8480-6 BMI: 22.1 Code : 95990-2 Heart Rate 1 : 8299 bpm Height: 5'2 " SpO2: 99% Weight: 121 lbs 12/22/2014 Blood Pressure 1: 130/70 Code : 8480-6 BMI: 21.8 Code : 59543-1 Heart Rate 1 : 106 bpm Height: 5'2" SpO2: 98% Weight: 119 lbs 10/29/2014 Blood Pressure 1: 118/58 Code : 8480-6 BMI: 23.2 Code : 70467-0 Heart Rate 1 : 74 bpm Height: 5'2" SpO2: 93% Weight: 127 lbs 10/14/2014 Blood Pressure 1: 128/64 Code : 8480-6 BMI: 22.9 Code : 42624-0 Heart Rate 1 : 79 bpm Height: 5'2" SpO2: 93% Temperature: 35.9 (C) / 96.6 (F) Weight: 125 lbs 09/19/2014 Blood Pressure 1: 132/72 Code : 8480-6 BMI: 22.9 Code : 51771-0 Heart Rate 1 : 84 bpm Height: 5'2" SpO2: 96% Weight: 125 lbs 08/22/2014 Blood Pressure 1: 124/72 Code : 8480-6 BMI: 23.0 Code : 42913-5 Heart Rate 1 : 64 bpm Height: 5'2" Weight: 126 lbs 08/04/2014 Blood Pressure 1: 126/86 Code : 8480-6 BMI: 23.6 Code : 75382-4 Height: 5'2" Respiratory Rate: 20 bpm Weight: 129 lbs 07/24/2014 Blood Pressure 1: 116/72 Code : 8480-6 BMI: 23.6 Code : 08737-3 Heart Rate 1 : 74 bpm Height: 5'2" Weight: 129 lbs 07/15/2014 Blood Pressure 1: 132/78 Code : 8480-6 BMI: 24.1 Code : 56773-6 Heart Rate 1 : 74 bpm Height: 5'2" SpO2: 97% Weight: 132 lbs Functional Status No Functional Status data History of Present Illness Symptom Name Status Result Effective Date Notes Location in the [facility] 03/27/2018 None Onset and Resolution ongoing 03/27/2018 None Onset of Symptom 3 weeks ago 03/27/2018 None Triggers no known associated factors 03/27/2018 None Pertinent Findings Denies nausea 03/27/2018 None Quality improving None Limitation on Activities does not limit activities 03/27/2018 None Frequency of Episodes increasing 03/27/2018 None Alleviating Factors medication 03/27/2018 None Quality primary hypertension 03/15/2018 None Onset and Resolution ongoing 03/15/2018 None Onset of Symptom during adulthood 03/15/2018 None Quality chronic 03/15 None Alleviating Factors medication 03/15/2018 None Blood Pressure Values patient checking blood pressure at home - did not bring in readings 2018 None Pertinent Findings dyspnea 03/15/2018 None Pertinent Findings Denies dizziness 03/15/2018 None Pertinent Findings decreased energy 03/15/2018 None Pertinent Findings edema 03/15/2018 in both legs- more in the right Location in the RLQ 03/15/2018 None Quality Denies acute 03/15/2018 None Quality Denies intermittent 03/15/2018 None Onset and Resolution ongoing 03/15/2018 None Onset of Symptom 3 weeks ago 03/15/2018 None Triggers no known associated factors 03/15/2018 None Pertinent Findings Denies nausea 03/15/2018 None fatigue Onset and Resolution sudden in onset 12/12/2017 None fatigue Onset of Symptom 1 weeks ago 12/12/2017 None fatigue Frequency of Episodes daily 12/12/2017 None fatigue Timing of Episodes no specific time 12/12/2017 None muscle weakness Location diffusely 12/12/2017 None muscle weakness Onset and Resolution sudden in onset 12/12/2017 None fatigue Pertinent Findings Denies cough 12/12/2017 None fatigue Pertinent Findings Denies dizziness 12/12/2017 None fatigue Onset and Resolution sudden in onset 09/05/2017 None fatigue Onset of Symptom 1 weeks ago 09/05/2017 None fatigue Frequency of Episodes daily 09/05/2017 None fatigue Timing of Episodes no specific time 09/05/2017 None muscle weakness Location diffusely 09/05/2017 None muscle weakness Onset and Resolution sudden in onset 09/05/2017 None hallucination Quality constant 09/05/2017 None hallucination Onset and Resolution sudden in onset 09/05/2017 None hallucination Onset of Symptom 2 weeks ago 09/05/2017 None hypertension Quality primary hypertension 05/09/2017 None hypertension Quality stable 05/09/2017 None hypertension Onset and Resolution ongoing 05/09/2017 None hypertension Onset of Symptom during adulthood 05/09/2017 None hypertension Blood Pressure Values patient checking blood pressure at home - did not bring in readings 05/09/2017 -Checks occasionally hypertension Severity not consistently severe symptoms, the symptoms fluctuate from no symptoms to anxiety and headaches 05/09/2017 None hypertension Frequency of Episodes unchanged 05/09/2017 None hypertension Alleviating Factors medication 05/09/2017 None hypertension Pertinent Findings anxiety 05/09/2017 None hypertension Pertinent Findings dizziness 05/09/2017 "at times" hypertension Pertinent Findings dyspnea 05/09/2017 None hypertension Pertinent Findings edema 05/09/2017 -wears bilateral compression hose arrhythmia Quality irregular beats 05/09/2017 (atrial fibrillation) arrhythmia Onset and Resolution ongoing 05/09/2017 None arrhythmia Alleviating Factors medication 05/09/2017 None hypertension Quality primary hypertension 03/07/2017 None hypertension [...] data Encounters Encounter Performer Location Codes Date ([id number]) 81353 EST. PATIENT, LEVEL IV Diagnosis: Essential (primary) hypertension[ICD10: I10] Diagnosis: Localized edema[ICD10: R60.0] Diagnosis: Right lower quadrant pain[ICD10: R10.31] Merle Daigle MD, [facility] CPT-4: 38819 03/27/2018 ([id number]) 57214 EST. PATIENT, LEVEL IV Diagnosis: Right lower quadrant pain[ICD10: R10.31] Diagnosis: Diarrhea, unspecified[ICD10: R19.7] Diagnosis: Essential (primary) hypertension[ICD10: I10] Diagnosis: Low back pain[ICD10: M54.5] Diagnosis: Gastro-esophageal reflux disease without esophagitis[ICD10: K21.9] Merle Daigle MD, [facility] CPT-4: 10697 03/15/2018 ([id number]) 74645 EST. PATIENT, LEVEL IV Diagnosis: Essential (primary) hypertension[ICD10: I10] Diagnosis: assisted (current) use of anticoagulants[ICD10: Z79.01] Diagnosis: Other malaise[ICD10: R53.81] Diagnosis: Vascular dementia without behavioral disturbance[ICD10: F01.50] Veronica Daigle MD, [facility] CPT-4: 63646 12/12/2017 ([id number]) 42723 EST. 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 PATIENT, LEVEL IV Diagnosis: Essential (primary) hypertension[ICD10: I10] Diagnosis: Generalized anxiety disorder[ICD10: F41.1] Diagnosis: Major depressive disorder, single episode, unspecified[ICD10: F32.9] Diagnosis: Localized edema[ICD10: R60.0] Veronica Daigle MD, [facility] CPT- 4: 81535 05/09/2017 ([id number]) 86130 EST. PATIENT, LEVEL IV Diagnosis: Essential (primary) hypertension[ICD10: I10] Diagnosis: Paroxysmal atrial fibrillation[ICD10: I48.0] Diagnosis: Generalized anxiety disorder[ICD10: F41.1] Diagnosis: Localized edema[ICD10: R60.0] Veronica Daigle MD, [facility] CPT- 4: 85127 03/07/2017 ([id number]) 25658 EST. PATIENT, LEVEL IV Diagnosis: Generalized anxiety disorder[ICD10: F41.1] Diagnosis: Major depressive disorder, single episode, unspecified[ICD10: F32.9] Diagnosis: Essential (primary) hypertension[ICD10: I10] Diagnosis: Paroxysmal atrial fibrillation[ICD10: I48.0] Merle Daigle MD, [facility] CPT-4: 09907 01/24/2017 12612 EST. PATIENT, LEVEL IV Diagnosis: Other chest pain[ICD10: R07.89] Diagnosis: Other malaise[ICD10: R53.81] Opal Daigle MD, [facility] CPT-4 : 52391 09/29/2016 ([id number]) 42886 EST. PATIENT, LEVEL IV Diagnosis: Essential (primary) hypertension[ICD10: I10] Diagnosis: Paroxysmal atrial fibrillation[ICD10: I48.0] Diagnosis: Localized edema[ICD10: R60.0] Diagnosis: Generalized anxiety disorder[ICD10: F41.1] Diagnosis: Low back pain[ICD10: M54.5] Merle Daigle MD, [facility] CPT-4: 53962 09/13/2016 ([id number]) 36912 EST. PATIENT, LEVEL III Diagnosis: Essential (primary) hypertension[ICD10: I10] Diagnosis: Paroxysmal atrial fibrillation[ICD10: I48.0] Merle Daigle MD, [facility] CPT-4: 32126 05/31/2016 ([id number]) 65141 EST. PATIENT, LEVEL III Diagnosis: Essential (primary) hypertension[ICD10: I10] Diagnosis: Localized edema[ICD10: R60.0] Merle Daigle MD, [facility] CPT-4: 55771 05/10/2016 ([id number]) 15630 EST. PATIENT, LEVEL IV Diagnosis: Paroxysmal atrial fibrillation[ICD10: I48.0] Diagnosis: Essential (primary) hypertension[ICD10: I10] Diagnosis: Generalized anxiety disorder[ICD10: F41.1] Merle Daigle MD, [facility] CPT-4: 17342 04/25/2016 ([id number] 19901 EST. PATIENT, LEVEL IV Diagnosis: Generalized anxiety disorder[ICD10: F41.1] Diagnosis: Essential (primary) hypertension[ICD10: I10] Diagnosis: Paroxysmal atrial fibrillation[ICD10: I48.0] Diagnosis: Localized edema[ICD10: R60.0] Diagnosis: Acute recurrent maxillary sinusitis[ICD10: J01.01] Merle Daigle MD, [facility] CPT-4: 80711 01/14/2016 ([id number]) 24407 EST. PATIENT, LEVEL IV Diagnosis: Essential (primary) hypertension[ICD10: I10] Diagnosis: Generalized anxiety disorder[ICD10: F41.1] Diagnosis: Localized edema[ICD10: R60.0] Diagnosis: Encounter for immunization[ICD10: Z23] Merle Daigle MD, [facility] CPT-4: 14848 12/10/2015 ([id number]) 99599 EST. PATIENT, LEVEL III Diagnosis: Essential (primary) hypertension[ICD10: I10] Diagnosis: Localized edema[ICD10: R60.0] Merle Daigle MD, [facility] CPT-4: 06422 11/12/2015 ([id number]) 66730 EST. PATIENT, LEVEL III Diagnosis: Essential (primary) hypertension[ICD10: I10] Diagnosis: Localized edema[ICD10: R60.0] Merle Daigle MD, [facility] CPT-4: 75237 10/08/2015 ([id number]) 12045 EST. PATIENT, LEVEL III Diagnosis: Localized edema[ICD10: R60.0] Diagnosis: Essential (primary) hypertension[ICD10: I10] Merle Daigle MD, [facility] CPT-4: 53981 09/29/2015 ([id number]) 11795 EST. PATIENT, LEVEL IV Diagnosis: Localized edema[ICD10: R60.0] Diagnosis: Essential (primary) hypertension[ICD10: I10] Diagnosis: Paroxysmal atrial fibrillation[ICD10: I48.0] Merle Daigle MD, [facility] CPT-4: 70414 09/22/2015 ([id number]) 91598 EST. PATIENT, LEVEL III Diagnosis: Essential (primary) hypertension[ICD10: I10] Diagnosis: Paroxysmal atrial fibrillation[ICD10: I48.0] Merle Daigle MD, [facility] CPT-4: 99900 07/21/2015 ([id number]) 47436 EST. 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 PATIENT, LEVEL IV Diagnosis: Essential (primary) hypertension[ICD10: I10] Diagnosis: Paroxysmal atrial fibrillation[ICD10: I48.0] Diagnosis: Localized edema[ICD10: R60.0] Diagnosis: Encounter for therapeutic drug level monitoring[ICD10: Z51.81] Merle Daigle MD, [facility] CPT-4: 01719 06/02/2015 [id number]) 75145 EST. PATIENT, LEVEL IV Diagnosis: Essential (primary) hypertension[ICD10: I10] Diagnosis: Vitamin D deficiency, unspecified[ICD10: E55.9] Diagnosis: Major depressive disorder, single episode, unspecified[ICD10: F32.9] Diagnosis: Paroxysmal atrial fibrillation[ICD10: I48.0] Diagnosis: assisted (current) use of anticoagulants[ICD10: Z79.01] Merle Daigle MD , [facility] CPT-4: 82740 03/31/2015 [id number]) 98192 EST. PATIENT, LEVEL III Diagnosis: Essential (primary) hypertension[ICD10: I10] Diagnosis: Allergic rhinitis due to pollen[ICD10: J30.1] Merle Daigle MD, [facility] CPT-4: 64252 01/30/2015 42030 EST. PATIENT, LEVEL III Diagnosis: Localized edema[ICD10: R60.0] Diagnosis: Diarrhea, unspecified[ICD10: R19.7] Veronica Daigle MD, [facility] CPT-4: 95402 12/22/2014 ([id number]) 34966 EST. PATIENT, LEVEL IV Diagnosis: DYSPHAGIA, PHARYNGEAL[ICD9: 787.23] Diagnosis: Low back pain[ICD9: 724.2] Diagnosis: Cough[ICD9: 786.2] Diagnosis: Anticoagulated on Coumadin[ICD9: V58.83] Diagnosis: MUSCLE WEAKNESS-GENERAL[ICD9: 728.87] Diagnosis: EDEMA[ICD9: 782.3] Veronica Daigle MD, [facility] CPT-4: 58584 10/29/2014 ([id number]) 50732 EST. PATIENT, LEVEL IV Diagnosis: Low back pain[ICD9: 724.2] Diagnosis: Pneumonia[ICD9: 486] Diagnosis: Cough[ICD9: 786.2] Diagnosis: Anticoagulated on Coumadin[ICD9: V58.83] Diagnosis: DYSPHAGIA, NOS[ICD9: 787.20] Diagnosis: MUSCLE WEAKNESS-GENERAL[ICD9: 728.87] Merle Daigle MD, [facility] CPT-4: 50592 10/14/2014 ([id number]) 04165 EST. PATIENT, LEVEL IV Diagnosis: ESSENTIAL HYPERTENSION[ICD9: 401.9] Diagnosis: ESOPHAGEAL REFLUX[ICD9: 530.81] Diagnosis: SLEEP RELATED LEG CRAMPS[ICD9: 327.52] Diagnosis: Atrial fibrillation[ICD9: 427.31] Diagnosis: Anticoagulated on Coumadin[ICD9: V58.83] Diagnosis: VITAMIN D DEFICIENCY[ICD9: 268.9] [facility] CPT-4: 62931 09/19/2014 ([id number]) 20117 EST. PATIENT, LEVEL III Diagnosis: EDEMA[ICD9: 782.3] Diagnosis: LONG-TERM USE ANTICOAGUL[ICD9: V58.61] Merle Daigle MD, [facility] CPT-4: 96925 08/22/2014 ([id number]) 35010 EST. PATIENT, LEVEL IV Diagnosis: Skin irritation[ICD9: 709.9] Diagnosis: ESSENTIAL HYPERTENSION[ICD9: 401.9] Diagnosis: Anticoagulated on Coumadin[ICD9: V58.83] Diagnosis: DEPRESSIVE DISORDER NEC[ICD9: 311] Yumiko Daigle MD, [facility] CPT-4: 06403 08/04/2014 ([id number]) 78373 EST. PATIENT, LEVEL III Diagnosis: Skin irritation[ICD9: 709.9] [facility] CPT- 4: 07792 07/24/2014 ([id number]) OFFICE/OUTPATIENT VISIT NEW Diagnosis: ESSENTIAL HYPERTENSION[ICD9: 401.9] Diagnosis: COUGH[ICD9: 786.2] Diagnosis: Atrial fibrillation[ICD9: 427.31] Diagnosis: LONG-TERM USE ANTICOAGUL[ICD9: V58.61] Diagnosis: DEPRESSIVE DISORDER NEC[ICD9: 311] Veronica Daigle MD, [facility] CPT-4: 96643 07/15/2014 Plan of Care Planned Activity Notes Codes Status Date Visit Plan: Hypertension - well controlled - continue with current medications, continue with no added salt diet. Pt has been encouraged to exercise daily. The pt has been advised to call the office if there are any acute concerns about change in blood pressure readings at home. Edema-fairly well controlled-no changes today Abdominal pain -diarrhea- resolved -finish all of abx -call if symptoms return 03/27/2018 Appointment: Merle Esparza WPtel: [address] [place], [place] [phone] (30 min) [facility] 03/27/2018 Patient Education: Patient Medication Summary Completed 03/27/2018 Patient Education: Hypertension Completed 03/27/2018 Visit Plan: Abdominal pain -diarrhea - rx for antibiotic sent to pt's pharmacy - pt advised to avoid seeds, nuts, popcorn, or any other food which has been proven to upset the pt's stomach. Esophageal Reflux - the patient has been counseled against excessive intake of caffeine, spicy foods, peppermint, and cinnamon - all of which can exacerbate esophageal reflux. The patient is to take medications as prescribed and call the office if the symptoms are not improving. Hypertension - well controlled - continue with current medications, continue with no added salt diet. Pt has been encouraged to exercise daily. The pt has been advised to call the office if there are any acute concerns about change in blood pressure readings at home. Chronic Pain Syndrome - pt has chronic pain - has been maintained on current medications, has not sought out other medications, only uses PRN pain medications as directed , and understands the consequences of over-medication. 03/15/2018 Appointment: Merle Esparza WPtel: [phone] [phone] [place] (30 min) Complex 03/15/2018 Patient Education: Patient Medication Summary Completed 03/15/2018 Patient Education: Hypertension Completed 03/15/2018 Patient Education: Back Pain Completed 03/15/2018 Appointment: Veronica Daigle WPtel: [phone] [phone] [place] (15 min) Moderate 02/01/2018 Appointment: Veronica Daigle WPtel: [phone] [phone] (15 min) Moderate 01/16/2018 Visit Plan: Hypertension - well controlled - continue with current medications, continue with no added salt diet. Pt has been encouraged to exercise daily. The pt has been advised to call the office if there are any acute concerns about change in blood pressure readings at home. Chronic pain syndrome - discussed with pt and her DPOA - will decrease dose of pain medication down to one time daily and then will taper off further as able. Vascular dementia - discussed with patient and her DPOA - pt needs to be in assisted living - she is extremely resistant to the idea of going to [place]. She wants to stay in her home, however she is in need of more care in her home, which she cannot afford to pay for at this time. 12/12/2017 Appointment: Veronica Daigle WPtel: [phone] [phone] [place] (15 min) Moderate 12/12/2017 Patient Education: Patient Medication Summary Completed 12/12/2017 Patient Education: Hypertension Completed 12/12/2017 Visit Plan: Hypertension - well controlled - [...] their heart rate is becoming uncontrolled. Chronic pain - pt has had her pain medication stolen by a direct care specialist through home health - i have given pt a script for 50 pills to get her through for when she can get her next RX for her pain medication. 09/05/2017 Appointment: Veronica Daigle WPtel: [phone] [phone] (15 min) Moderate 09/05/2017 Patient Education: Patient Medication Summary Completed 09/05/2017 Visit Plan: Hypertension - well controlled - continue with current medications, continue with no added salt diet. Pt has been encouraged to exercise daily. The pt has been advised to call the office if there are any acute concerns about change in blood pressure readings at home. Edema - pt has been advised to continue with compression, elevation of legs to prevent dependent edema. Atrial Fibrillation - pt on chronic anticoagulation [...] situational exposure. No change in current medications. 05/09/2017 Appointment: Veronica Daigle WPtel: [phone] [phone] (15 min) Moderate 05/09/2017 Patient Education: Patient Medication Summary Completed 05/09/2017 Visit Plan: Hypertension - well controlled - [...] current medications. 03/07/2017 Appointment: Veronica Daigle WPtel: [phone] [phone] (15 min) Moderate 03/07/2017 Patient Education: Patient [...] 01/24/2017 Appointment: [facility]ar[facility]Ptel[phone] (30 min) Complex 01/24/2017 Patient Education: Patient [...] or concerns. 09/29/2016 Appointment: Opal Boyle WPtel: [phone] [phone] [place] (15 min) Moderate 09/29/2016 Appointment: [phone] [facility] [place] (15 min) Moderate 09/29/2016 Patient Education: [...] current medications. 09/13/2016 Appointment: Merle Esparza WPtel: [phone] [phone] (30 min) Complex 09/13/2016 Patient Education: Patient [...] uncontrolled. 05/31/2016 Appointment: [facility]el[phone] [phone] (30 min) Complex 05/31/2016 Patient Education: [...] LABS TODAY 05/10/2016 Appointment: Merle Esparza WPtel: [address] [place], [place] [id number] [place] [address] (30 min) Complex 05/10/2016 Patient Education: Patient Medication Summary Completed 05/10/2016 Patient Education: Hypertension Completed 05/10/2016 Appointment: Merle Esparza WPtel: [address] [place] [address] (15 min) Moderate 05/09/2016 Visit Plan: Afib-not [...] current medications. 04/25/2016 Appointment: Merle Esparza WPtel: [address] [place], [place] [phone] (30 min) Complex 04/25/2016 Patient Education: Patient Medication Summary Completed 04/25/2016 Patient Education: Hypertension Completed 04/25/2016 Appointment: Merle Esparza WPtel: [address] [place], [place] [phone] (15 min) Moderate 02/12/2016 Visit Plan: Hypertension [...] becoming uncontrolled. 01/14/2016 Appointment: Merle Esparza WPtel: [phone] [id number] (30 min) Complex 01/14/2016 Patient Education: Patient [...] peripheral edema. 12/10/2015 Appointment: [facility] [phone] [phone] (30 min) Complex 12/10/2015 Patient Education: Patient [...] peripheral edema. 11/12/2015 Appointment: Merle Esparza WPtel: [address] [place], [place] [phone] [place] [address] (15 min) Moderate 11/12/2015 Patient Education: Patient Medication Summary Completed 11/12/2015 Appointment: Merle Esparza WPtel: [address] [place], [place] [phone] [place] [address] (15 min) Moderate 10/22/2015 Visit Plan: Hypertension [...] peripheral edema. 10/08/2015 Appointment: Merle Esparza WPtel: [phone] [place] [address] (15 min) Moderate 10/08/2015 Patient Education: Patient [...] 09/29/2015 Appointment: Merle Esparza WPtel: [phone] (15 min) Moderate 09/29/2015 Patient Education: Patient [...] peripheral edema. 09/22/2015 Appointment: Merle Esparza WPtel: [address] [place], [place] [phone] (30 min) Complex 09/22/2015 Patient Education: Patient [...] week- will restart anti coagulant if able Dpkea-nnkmwqlv-yo change in medications Anemia-received 1 unit blood last week-hgb repeated yesterday and has increased from 9.5 to 9.8-continue to monitor 06/23/2015 Appointment: Merle Esparza WPtel: [phone] (30 min) Complex 06/23/2015 Patient Education: Patient [...] Completed 01/30/2015 Appointment: Veronica Daigle WPtel: [phone] (30 min) Complex 01/28/2015 Appointment: (30 min) [...] home. 12/22/2014 Appointment: [phone] [phone] (30 min) Complex 12/22/2014 Patient Education: [...] Care Plan: COMPLETE CBC AUTOMATED LOINC : 35998-7 Ordered 08/22/2014 Visit Plan: Itching/Skin irritation- Resolved. [...] if needed. 07/24/2014 Appointment: Yumiko Dickinson [facility]Ptel[phone] [facility] [place] (10 min) Simple 07/24/2014 Patient Education: Patient [...] - she has refused to see a enterprise architect manager and reports to me that she will not go to the hospital and will not have the recommended testing. She states that she does not have any family left, and is not willing to have any further testing/treatment. Labs to be checked today for coumadin levels to be further adjusted. 07/15/2014 Appointment: [facility] Daigle [phone] [facility] [place] (S[facility] New Patient 07/15/2014 Patient Education: Patient Medication Summary Completed 07/15/2014 Patient Education: Hypertension Completed 07/15/2014 Instructions Comment START METOPROLOL 12.5MG TWICE DAILY (YOU WILL [...] situational exposure. No change in current medications. LEXAPRO 5MG DAILY IN THE EVENING CHECK [...] change in blood pressure readings at home. Chronic pain syndrome - discussed with pt and her DPOA - will decrease dose of pain medication down to one time daily and then will taper off further as able. Vascular dementia - discussed with patient and her DPOA - pt needs to be in assisted living - she is extremely resistant to the idea of going to [place]. She wants to stay in her home, however she is in need of more care in her home, which she cannot afford to pay for at this time. TAKE AN EXTRA LASIX AND POASSIUM PILL [...] change in blood pressure readings at home. Edema-fairly well controlled-no changes today Abdominal pain -diarrhea- resolved -finish all of abx -call if symptoms return WE WILL CHECK YOUR PT/INR (WARFARIN LEVEL) [...] INR is between 2.0 and 3.5. . Itching- Benadryl cream to right arm [...] next week-will restart anti coagulant if able Oyifr-uuladkyj-ux change in medications Anemia-received 1 unit blood [...] or with any questions, changes or concerns. take an extra lasix and potassium at [...] edema. Chronic pain-refill hydrocodone for prn use DECREASE METOPROLOL TO 25MG 1/2 TAB DAILY [...] to reduce peripheral edema. CHECK LABS TODAY . Hypertension - well controlled - continue with current medications, continue with no added salt diet. Pt has been encouraged to exercise daily. The pt has been advised to call the office if there are any acute concerns about change in blood pressure readings at home. Edema - pt has been advised to continue with compression, elevation of legs to prevent dependent edema. Atrial Fibrillation - pt on chronic anticoagulation [...] situational exposure. No change in current medications. STOP THE BENZAPRIL START LOSARTAN THE BENZAPRIL [...] - she has refused to see a enterprise architect manager and reports to me that she will not go to the hospital and will not have the recommended testing. She states that she does not have any family left, and is not willing to have any further testing/ treatment. Labs to be checked today for coumadin levels to be further adjusted. INCREASE YOUR OMEPRAZOLE TO TWICE DAILY . [...] labs-cbc, mag Vitamin D deficiency-check vitamin D Refill prescription of Lasix 40 mg daily. [...] to further attempt to reduce peripheral edema. Uibblrdlv-tpjumptzd-ozjjpr all of abx Atrial Fibrillation - pt on chronic anticoagulation and is currently rate controlled. The pt is to have labs done as appropriate to monitor medication levels and is to report if they start to feel as if their heart rate is becoming uncontrolled. INCREASE PROTEIN INTAKE . Hypertension - well [...] exposure. No change in current medications. . Hypertension - well controlled - continue [...] their heart rate is becoming uncontrolled. Chronic pain - pt has had her pain medication stolen by a direct care specialist through home health - i have given pt a script for 50 pills to get her through for when she can get her next RX for her pain medication. . Hypertension - well controlled - continue [...] a study on a Monday if possible. make sure you are taking omeprazole twice daily . Abdominal pain -diarrhea - rx for antibiotic sent to pt's pharmacy - pt advised to avoid seeds, nuts, popcorn, or any other food which has been proven to upset the pt's stomach. Esophageal Reflux - the patient has been counseled against excessive intake of caffeine, spicy foods, peppermint, and cinnamon - all of which can exacerbate esophageal reflux. The patient is to take medications as prescribed and call the office if the symptoms are not improving. Hypertension - well controlled - continue with current medications, continue with no added salt diet. Pt has been encouraged to exercise daily. The pt has been advised to call the office if there are any acute concerns about change in blood pressure readings at home. Chronic Pain Syndrome - pt has chronic pain - has been maintained on current medications, has not sought out other medications, only uses PRN pain medications as directed, and understands the consequences of over-medication. . Chronic Depression and anxiety - the [...] CHEST XRAY, LUMBAR SPINE Antibiotics sent to [facility] Take a probiotic while on the antibiotics REFER TO HOME WVMXOO-Ngqvrkk-rwhoh PT/INR on , PT SWALLOW STUDY DX dysphagia Shun (santosh) [phone] . Pneumonia - Pt has been diagnosed [...] while on the antibiotics REFER TO HOME WZIISE-Ahukdoj-fmssr PT/INR on , PT SWALLOW STUDY DX dysphagia Shun (neighbor) [phone] . Pneumonia - Pt has been diagnosed [...] further attempt to reduce peripheral edema. INCREASE LASIX 40MG TO TWICE DAILY X [...] to further attempt to reduce peripheral edema. increase the metalozone to three times a [...] exposure. No change in current medications. . Hypertension - well controlled - continue [...]
--- NOTE | 2018-04-18 23:25 | ED Fall/Injury ---
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 PT STATES SHE HAD GOTTEN UP TO GO TO BED, AND LOST BALANCE AND FELL, LANDING ON LEFT HIP ON CARPETED FLOOR OCCURRED APPROXIMATELY AN HOUR AGO PT TOOK HER REGULAR HYDROCODONE JUST BEFORE THIS OCCURRED PT DENIES HITTING HER HEAD OR HAVING LOSS OF CONSCIOUSNESS DENIES ANY NECK OR BACK PAIN DENIES PARESTHESIAS OR MOTOR DEFICITS ONLY C/O PAIN TO LEFT HIP NO PRIOR INJURY TO THIS HIP PCP: DR. VEE CORD CUTTER: DR. VENCES Allergies and Home Medications Allergies Coded Allergies: Sulfa (Sulfonamide Antibiotics) (Verified Allergy, Unknown, 12/01/14) No Allergy Information Available (Unverified , 04/18/18) Home Medications Alprazolam 0.25 Mg Tablet, 0.25 MG PO TID PRN for ANXIETY, (Reported) Buspirone HCl 10 Mg Tablet, 10 MG PO TID, (Reported) Cyanocobalamin 1,000 Mcg/Ml Inj, 1,000 MCG IJ MONTHLY, (Reported) Diltiazem HCl 360 Mg Cap.er.24h, 360 MG PO DAILY, (Reported) Docusate Sodium 100 Mg Tablet, 100 MG PO PRN PRN for CONSTIPATION, (Reported) Escitalopram Oxalate 5 Mg Tablet, 5 MG PO HS, (Reported) Furosemide 40 Mg Tablet, 40 MG PO DAILY, (Reported) Hydrocodone/Acetaminophen 1 Each Tablet, 1-2 EACH PO Q6H PRN for PAIN-MILD, ( Reported) Isosorbide Mononitrate 30 Mg Tab.er.24h, 30 MG PO DAILY, (Reported) Meclizine HCl 25 Mg Tab.chew, 25 MG PO BID PRN for DIZZINESS, (Reported) Metoprolol Tartrate 25 Mg Tablet, 12.5 MG PO BID, (Reported) Omeprazole 20 Mg Capsule.dr, 20 MG PO BID, (Reported) Ondansetron HCl 4 Mg Tablet, 4 MG PO QID PRN for NAUSEA/VOMITING-1ST LINE, ( Reported) Potassium Chloride 10 Meq Tablet.er, 20 MEQ PO TID, (Reported) Warfarin Sodium 2.5 Mg Tablet, 2.5 MG PO DAILY Prescribed by: KAYE VENCES on 05/15/17 1859 Patient Home Medication List Home Medication List Reviewed: Yes Review of Systems Review of Systems Constitutional: no symptoms reported Eyes: No Symptoms Reported Ears, Nose, Mouth, Throat: no symptoms reported Respiratory: no symptoms reported Cardiovascular: no symptoms reported Gastrointestinal: no symptoms reported Genitourinary: no symptoms reported Musculoskeletal: see HPI; No back pain, No neck pain Skin: no symptoms reported Psychiatric/Neurological: Anxiety; Denies Numbness, Denies Paresthesia, Denies Tingling, Denies Weakness Past Euurqfq-Wojqrd-Voozaz Hx Patient Social History Alcohol Use: Denies Use Recreational Drug Use: No Smoking Status: Never a Smoker Recent Foreign Travel: No Contact w/Someone Who Travel: No Immunizations Up To Date Date of Pneumonia Vaccine: Nov 17, 2014 Date of Influenza Vaccine: Nov 28, 2016 Past Medical History Surgeries: Yes (REPAIR OF ZENKER'S DIVERTICULUM; RIGHT ANKLE FX/ORIF; RIGHT KNEE REPLACEMENT; HYST; CARDIAC CATHS--NO INTERVENTION--LAST CATH 05/15/17 ) Abdominal, Appendectomy, Cardiac, Hysterectomy, Joint Replacement, Orthopedic Respiratory: Yes (PULMONARY HTN) Sleep Apnea Cardiac: Yes (DIASTOLIC DYSFUNCTION; CHF; ATRIAL/MITRAL/TRICUSPID REGURG; CAROTID BRUIT; RBBB/LPFB; CARDIAC CATHS--NO INTERVENTION/ MILD TO MODERATE NON- OCCLUSIVE DISEASE--LAST CATH 05/15/17 ) Atrial Fibrillation, Chronic Edema/Swelling, Coronary Artery Disease, Hypertension, Irregular Heartbeat, Valvular Heart Disease Neurological: No Reproductive Disorders: No 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, 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 Genitourinary: Yes Kidney Infection Gastrointestinal: Yes (ZENKER'S DIVERTICULUM REPAIR) Gastroesophageal Reflux, Polyps Musculoskeletal: Yes (RIGHT ANKLE FX; RIGHT KNEE REPLACEMENT) Arthritis, Fractures Endocrine: No HEENT: No Cancer: No Psychosocial: Yes Anxiety Integumentary: No Blood Disorders: No Family Medical History Cardiovascular disease 19 MOTHER Neoplasm G8 BROTHER (BRAIN TUMORS X2) Physical Exam Vital Signs Vital Signs - First Documented 04/18/18 23:35 Temp 97.9 Pulse 68 Resp 18 B/P (MAP) 112/59 (76) Pulse Ox 100 O2 Delivery Room Air Capillary Refill : Height, Weight, BMI Height: 5'0" Weight: 110lbs. 0.0oz. [id number]; 24.6 BMI Method:Estimated General Appearance: WD/WN, no apparent distress, other (VERY ANXIOUS AND TREMULOUS) HEENT: PERRL/EOMI, normal ENT inspection Neck: non-tender, full range of motion, supple, normal inspection Cardiovascular: no JVD, no murmur, irregularly irregular Respiratory: chest non-tender, normal breath sounds, no respiratory distress, no accessory muscle use Gastrointestinal: non tender, soft Back: no CVA tenderness, no vertebral tenderness Extremities: other (TENDERNESS, SWELLING AND DEFORMITY TO LEFT HIP WITH SHORTENING AND EXTERNAL ROTATION OF LEFT LEG. BILATERAL PEDAL EDEMA 1+/4) Neurologic/Psychiatric: selling underwriter II-XII nml as tested, no motor/sensory deficits, alert, oriented x 3, other (VERY ANXIOUS AND TREMULOUS) Skin: normal color, warm/dry [place] Coma Score Best Eye Response: (4) Open Spontaneously Best Verbal Response: (5) Oriented Best Motor Response: (6) Obeys Commands [place] Total: 15 Progress/Results/Core Measures Results/Orders Lab Results Laboratory Tests Test 04/18/18 23:40 04/19/18 00:22 Range/Units White Blood Count 10.9 4.3-11.0 10^3/uL Red Blood Count 4.14 L 4.35-5.85 10^6/uL Hemoglobin 10.2 L 11.5-16.0 G/DL Hematocrit 33 L 35-52 % Mean Corpuscular Volume 80 80-99 FL Mean Corpuscular Hemoglobin 25 25-34 PG Mean Corpuscular Hemoglobin Concent 31 L 32-36 G/DL Red Cell Distribution Width 17.6 H 10.0-14.5 % Platelet Count 368 130-400 10^3/uL Mean Platelet Volume 11.2 H 7.4-10.4 FL Neutrophils (%) (Auto) 66 42-75 % Lymphocytes (%) (Auto) 16 12-44 % Monocytes (%) (Auto) 16 H 0-12 % Eosinophils (%) (Auto) 1 0-10 % Basophils (%) (Auto) 1 0-10 % Neutrophils # (Auto) 7.2 1.8-7.8 X 10^3 Lymphocytes # (Auto) 1.8 1.0-4.0 X 10^3 Monocytes # (Auto) 1.8 H 0.0-1.0 X 10^3 Eosinophils # (Auto) 0.1 0.0-0.3 10^3/uL Basophils # (Auto) 0.1 0.0-0.1 10^3/uL Prothrombin Time 23.6 H 12.2-14.7 SEC INR Comment 2.1 H 0.8-1.4 Activated Partial Thromboplast Time 30 24-35 SEC Sodium Level 139 135-145 MMOL/L Potassium Level 4.4 3.6-5.0 MMOL/L Chloride Level 102 98-107 MMOL/L Carbon Dioxide Level 24 21-32 MMOL/L Anion Gap 13 5-14 MMOL/L Blood Urea Nitrogen 22 H 7-18 MG/DL Creatinine 1.26 0.60-1.30 MG/DL Estimat Glomerular Filtration Rate 40 BUN/Creatinine Ratio 17 Glucose Level 113 H 70-105 MG/DL Calcium Level 10.3 H 8.5-10.1 MG/DL Corrected Calcium 10.2 H 8.5-10.1 MG/DL Magnesium Level 2.1 1.8-2.4 MG/DL Total Bilirubin 0.3 0.1-1.0 MG/DL Aspartate Amino Transf (AST/SGOT) 25 5-34 U/L Alanine Aminotransferase (ALT/SGPT) 12 0-55 U/L Alkaline Phosphatase 155 H 40-136 U/L Total Protein 7.2 6.4-8.2 GM/DL Albumin 4.1 3.2-4.5 GM/DL Urine Color YELLOW Urine Clarity SLIGHTLY CLOUDY Urine pH 6.5 5-9 Urine Specific Candor 1.020 1.016-1.022 Urine Protein 2+ H NEGATIVE Urine Glucose (UA) NEGATIVE NEGATIVE Urine Ketones NEGATIVE NEGATIVE Urine Nitrite NEGATIVE NEGATIVE Urine Bilirubin NEGATIVE NEGATIVE Urine Urobilinogen NORMAL NORMAL MG/DL Urine Leukocyte Esterase 3+ H NEGATIVE Urine RBC (Auto) 2+ H NEGATIVE Urine RBC RARE /HPF Urine WBC 25-50 H /HPF Urine Squamous Epithelial Cells 2-5 /HPF Urine Crystals NONE /LPF Urine Bacteria FEW H /HPF Urine Casts PRESENT /LPF Urine Hyaline Casts 0-2 H /LPF Urine Mucus NEGATIVE /LPF Urine Culture Indicated YES My Orders Orders - MITCH ABEBE DO Cbc With Automated Diff (04/18/18 23:12) Comprehensive Metabolic Panel (04/18/18 23:12) Magnesium (04/18/18 23:12) Protime With Inr (04/18/18 23:12) Partial Thromboplastin Time (04/18/18 23:12) Ua Culture If Indicated (04/18/18 23:12) Catheter(Urinary) Insert & Ass 03,15 (04/18/18 23:12) Monitor-Rhythm Ecg Trace Only (04/18/18 23:12) Chest 1 View, Ap/Pa Only (04/18/18 23:12) Pelvis With Left Hip 2-3 Views (04/18/18 23:12) Fentanyl Injection (Sublimaze Injection (04/18/18 23:12) Saline Lock/Iv-Start (04/19/18 00:00) Ekg Tracing (04/19/18 00:00) O2 (04/19/18 00:00) Fentanyl Injection (Sublimaze Injection (04/19/18 00:00) Saline Lock/Iv-Start (04/19/18 00:00) Ns Iv 1000 Ml (Sodium Chloride 0.9%) (04/19/18 00:00) Urine Culture (04/19/18 00:22) Medications Given in ED Current Medications Medications Dose Ordered Sig/Leatha Route Start Time Stop Time Status Last Admin Dose Admin Sodium Chloride 1,000 ml @ 0 mls/hr Q0M ONCE IV 04/19/18 00:00 04/19/18 00:02 DC 04/19/18 00:13 1,000 MLS/HR Vital Signs/I&O 04/18/18 23:35 Temp 97.9 Pulse 68 Resp 18 B/P (MAP) 112/59 (76) Pulse Ox 100 O2 Delivery Room Air Progress Progress Note : Progress Note PT CALMER AND NO LONGER TREMULOUS PAIN IS LESS WITH MEDICATIONS Initial ECG Impression Date: Apr 19, 2018 Initial ECG Impression Time: 00:20 Initial ECG Rate: 84 Initial ECG Rhythm: A Fib/Flutter (RBBB, LPFB) Diagnostic Imaging Comments CXR-- XRAYS PELVIS AND LEFT HIP--COMMINUTED ANGULATED INTERTROCHANTERIC 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 2352--SPOKE WITH DR. ESCOBAR, ER PHYSICIAN, ACCEPTS PT FOR TRANSFER. Impression Primary Impression: S/P FALL FROM [place] Additional Impressions: Closed left hip fracture Chronic atrial fibrillation Chronic anticoagulation UTI (urinary tract infection) Disposition: 02 XFER SHT-TRM HOSP Condition: Improved Transfer Transfer Facility: [facility] Method of Transfer: EMS Departure-Patient Inst. Referrals: JAMEE VEE MD (PCP/Family) Primary Care Physician MITCH ABEBE DO Apr 18, 2018 23:25
--- OUTSIDE RECORDS SUMMARY | 2018-04-18 23:26 | XMS REPORT | CCD ---
Author Author [facility] Organization [facility] Address [address] [place] [address] Phone Care Team Providers [facility] [employer] Name Role Phone PP Unavailable CCM Unavailable Summary Purpose Interface Exchange Insurance Providers Payer name Policy type / Coverage type Covered libertarian ID Effective Begin Date Effective End Date WPS Medicare Part B Medicare Part B [id number] Unknown Family history Mother Diagnosis Age At Onset Hypertension Unknown Heart Attack Unknown Social History Social History Element Codes Description Effective Dates Marital status Unknown 07/15/2014 Marital status Unknown 07/15/2014 Number of children Unknown 0 07/15/2014 Number of children Unknown 0 07/15/2014 Employment Unknown Retired 07/15/2014 Employment Unknown Retired 07/15/[address]: 069403481 Has never smoked or chewed tobacco 07/15/[address]: 380232655 Has never smoked or chewed tobacco 07/15/[address]: 165509587 Never drinks alcohol 07/15/[address]: 736320137 Never drinks alcohol 07/15/2014 Allergies, Adverse Reactions, [...] ICD-9: 724.2 ICD-10: M54.5 Active 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/2016 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 ICD-9: V58.61 ICD-10: [...] pain ICD-9: 724.2 ICD-10: M54.5 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 ICD-9: V58.61 ICD-10: [...] Start Date Stop Date Status Fill Instructions cyanocobalamin (vit B-12) 1,000 mcg/mL injection solution RxNorm: 188530 INJECT 1 ML INTRAMUSCULARLY 2 TIMES A MONTH FOR 2 MONTHS, THEN ONCE A MONTH THEREAFTER 04/10/2018 09/24/2018 Active buspirone 10 mg tablet RxNorm: 904043 TAKE ONE TABLET BY MOUTH THREE TIMES A DAY 03/21/2018 07/18/2018 Active hydrocodone 7.5 mg-acetaminophen 325 mg tablet RxNorm: 182435 1 Tablet(s) PO daily as needed pain 03/15/20182018 Active Flagyl 500 mg tablet RxNorm: 066198 1 Tablet(s) PO TID 201803/24/2018 Inactive potassium chloride ER 10 mEq tablet,extended release RxNorm: 741325 TAKE TWO TABLETS BY MOUTH THREE TIMES A DAY 02/28/2018 07/27/2018 Active hydrocodone 7.5 mg-acetaminophen 325 mg tablet RxNorm: 578440 1 Tablet(s) PO daily as needed pain 02/01/20182018 Inactive Xanax 0.25 mg tablet RxNorm: 698708 1 Tablet(s) PO TID as needed anxiety 01/01/2018 01/20/2018 Inactive hydrocodone 7.5 mg-acetaminophen 325 mg tablet RxNorm: 360567 1 Tablet(s) PO daily as needed pain 12/12/20172017 Inactive cyanocobalamin (vit B-12) 1,000 mcg/mL injection solution RxNorm: 623017 INJECT 1 ML INTRAMUSCULARLY 2 TIMES A MONTH FOR 2 MONTHS, THEN ONCE A MONTH THEREAFTER 11/28/2017 01/22/2018 Inactive hydrocodone 7.5 mg-acetaminophen 325 mg tablet RxNorm: 582549 1-2 Tablet(s) PO Q4- 6H as needed pain 11/21/2017 12/11/2017 Inactive Lasix 40 mg tablet RxNorm: 788319 TAKE ONE TABLET BY MOUTH DAILY 10/23/2017 04/20/2018 Active Lexapro 5 mg tablet RxNorm: 690067 TAKE ONE TABLET BY MOUTH EVERY EVENING 10/23/2017 12/21/2017 Inactive buspirone 10 mg tablet RxNorm: 467323 TAKE ONE TABLET BY MOUTH THREE TIMES A DAY 10/02/2017 02/28/2018 Inactive omeprazole 20 mg capsule,delayed release RxNorm: 066347 TAKE ONE CAPSULE BY MOUTH TWICE A DAY 09/13/2017 03/11/2018 Inactive Levaquin 750 mg tablet RxNorm: 228662 1 tab every other day for 5 doses 1 Tablet(s ) PO 08/29/2017 08/28/2017 Inactive Levaquin 750 mg tablet RxNorm: 626748 1 tab every other day for 5 doses 1 Tablet(s ) PO 08/29/2017 09/02/2017 Inactive hydrocodone 7.5 mg-acetaminophen 325 mg tablet RxNorm: 561765 1-2 Tablet(s) PO Q4- 6H as needed pain 08/28/2017 09/26/2017 Inactive potassium chloride ER 10 mEq tablet,extended release RxNorm: 051227 TAKE TWO TABLETS BY MOUTH THREE TIMES A DAY 08/28/2017 12/25/2017 Inactive metoprolol tartrate 25 mg tablet RxNorm: 997540 TAKE 1/2 TABLET BY MOUTH TWO TIMES A DAY 07/25/2017 07/19/2018 Active Lexapro 5 mg tablet RxNorm: 839848 TAKE ONE TABLET BY MOUTH EVERY EVENING 07/21/2017 10/18/2017 Inactive hydrocodone 7.5 mg-acetaminophen 325 mg tablet RxNorm: 905471 1-2 Tablet(s) PO Q4- 6H as needed pain 07/19/2017 08/17/2017 Inactive hydrocodone 7.5 mg-acetaminophen 325 mg tablet RxNorm: 729137 1-2 Tablet(s) PO Q4- 6H as needed pain 07/03/2017 07/18/2017 Inactive hydrocodone 7.5 mg-acetaminophen 325 mg tablet RxNorm: 955523 1-2 Tablet(s) PO Q4- 6H as needed pain 05/25/2017 06/23/2017 Inactive cyanocobalamin (vit B-12) 1,000 mcg/mL injection solution RxNorm: 618644 INJECT 1 ML INTRAMUSCULARLY 2 TIMES A MONTH FOR 2 MONTHS, THEN ONCE A MONTH THEREAFTER 05/19/2017 08/10/2017 Inactive warfarin 5 mg tablet RxNorm: 804466 TAKE ONE TABLET BY MOUTH DAILY 04/26/2017 04/20/2018 Active buspirone 10 mg tablet RxNorm: 050530 TAKE ONE TABLET BY MOUTH THREE TIMES A DAY 04/26/2017 09/22/2017 Inactive Xanax 0.25 mg tablet RxNorm: 519892 1 Tablet(s) PO TID as needed anxiety 04/17/2017 05/14/2017 Inactive Levaquin 500 mg tablet RxNorm: 908436 1 Tablet(s) PO Q72H x3 doses 04/11/2017 04/10/2017 Inactive Levaquin 500 mg tablet RxNorm: 911468 1 Tablet(s) PO Q72H x3 doses 04/11/2017 07/03/2017 Inactive potassium chloride ER 10 mEq tablet,extended release RxNorm: 512814 TAKE TWO TABLETS BY MOUTH THREE TIMES A DAY 03/27/2017 08/23/2017 Inactive Tamiflu 75 mg capsule RxNorm: 322423 1 Capsule(s) PO BID 201707/03/2017 Inactive Zofran 4 mg tablet RxNorm: 600184 1 Tablet(s) PO QID as needed nausea 03/23/2017 06/20/2017 Inactive Zofran 4 mg tablet RxNorm: 239623 1 Tablet(s) PO QID as needed nausea 03/23/2017 03/22/2017 Inactive Tamiflu 75 mg capsule RxNorm: 461044 1 Capsule(s) PO BID 201703/22/2017 Inactive lisinopril 10 mg tablet RxNorm: 348658 TAKE ONE-HALF TABLET BY MOUTH DAILY 03/10/2017 06/02/2018 Active metolazone 5 mg tablet RxNorm: 194241 1 Tablet(s) PO TIW 201703/01/2018 Inactive hydrocodone 7.5 mg-acetaminophen 325 mg tablet RxNorm: 110561 1-2 Tablet(s) PO Q4- 6H as needed pain 02/23/2017 05/24/2017 Inactive omeprazole 20 mg capsule,delayed release RxNorm: 525886 Capsule(s) TAKE ONE CAPSULE BY MOUTH TWICE A DAY 02/08/2017 Inactive metolazone 5 mg tablet RxNorm: 180185 TAKE 1 TABLET BY MOUTH TWICE WEEKLY 02/08/2017 03/06/2017 Inactive Lexapro 5 mg tablet RxNorm: 493791 1 Tablet(s) PO QPM 201603/06/2017 Inactive hydrocodone 7.5 mg-acetaminophen 325 mg tablet RxNorm: 603950 1-2 Tablet(s) PO Q4- 6H as needed pain 01/16/2017 02/22/2017 Inactive Lasix 40 mg tablet RxNorm: 014585 TAKE ONE TABLET BY MOUTH DAILY 01/11/2017 10/07/2017 Inactive metoprolol tartrate 25 mg tablet RxNorm: 072682 TAKE 1/2 TABLET BY MOUTH TWO TIMES A DAY 01/11/2017 07/09/2017 Inactive allopurinol 300 mg tablet RxNorm: 567749 TAKE ONE TABLET BY MOUTH DAILY 01/09/2017 06/07/2017 Inactive hydrocodone 7.5 mg-acetaminophen 325 mg tablet RxNorm: 154464 1-2 Tablet(s) PO Q4- 6H as needed pain 12/06/2016 01/15/2017 Inactive lisinopril 10 mg tablet RxNorm: 894234 TAKE ONE-HALF TABLET BY MOUTH DAILY 12/02/2016 03/09/2017 Inactive buspirone 10 mg tablet RxNorm: 788367 TAKE ONE TABLET BY MOUTH THREE TIMES A DAY 10/25/2016 01/22/2017 Inactive buspirone 10 mg tablet RxNorm: 676492 TAKE ONE TABLET BY MOUTH THREE TIMES A DAY 10/25/2016 10/24/2016 Inactive hydrocodone 7.5 mg-acetaminophen 325 mg tablet RxNorm: 868378 1-2 or 2 Tablet(s) PO Q4-6H as needed pain 10/25/20162016 Inactive cyanocobalamin (vit B-12) 1,000 mcg/mL injection solution RxNorm: 596002 INJECT 1 ML INTRAMUSCULARLY 2 TIMES A MONTH FOR 2 MONTHS, THEN ONCE A MONTH THEREAFTER 10/24/2016 02/12/2017 Inactive metolazone 5 mg tablet RxNorm: 677059 TAKE 1 TABLET BY MOUTH TWICE WEEKLY 09/23/2016 01/12/2017 Inactive hydrocodone 7.5 mg-acetaminophen 325 mg tablet RxNorm: 193643 1-2 or 2 Tablet(s) PO Q4-6H as needed pain 09/13/20162016 Inactive Keflex 500 mg capsule RxNorm: 048233 1 Capsule(s) PO TID 201609/15/2016 Inactive Take with a probiotic BID Keflex 500 mg capsule RxNorm: 059319 1 Capsule(s) PO TID 201609/08/2016 Inactive Take with a probiotic BID metoprolol tartrate 25 mg tablet RxNorm: 390972 TAKE 1/2 TABLET BY MOUTH TWO TIMES A DAY 09/07/2016 01/04/2017 Inactive potassium chloride ER 10 mEq tablet,extended release RxNorm: 018435 TAKE TWO TABLETS BY MOUTH THREE TIMES A DAY 09/01/2016 02/27/2017 Inactive hydrocodone 7.5 mg-acetaminophen 325 mg tablet RxNorm: 870570 1 or 2 Tablet(s) PO Q4-6H as needed pain 08/31/20162016 Inactive omeprazole 20 mg capsule,delayed release RxNorm: 371195 TAKE ONE CAPSULE BY MOUTH TWICE A DAY 08/24/2016 02/07/2017 Inactive hydrocodone 7.5 mg-acetaminophen 325 mg tablet RxNorm: 353416 1 or 2 Tablet(s) PO Q4-6H as needed pain 08/05/20162016 Inactive lisinopril 10 mg tablet RxNorm: 015841 TAKE ONE-HALF TABLET BY MOUTH DAILY 07/28/2016 12/01/2016 Inactive hydrocodone 7.5 mg-acetaminophen 325 mg tablet RxNorm: 644668 1 or 2 Tablet(s) PO Q4-6H as needed pain 07/05/20162016 Inactive allopurinol 300 mg tablet RxNorm: 668771 TAKE ONE TABLET BY MOUTH DAILY 06/16/2016 12/12/2016 Inactive metoprolol tartrate 25 mg tablet RxNorm: 270045 TAKE 1/2 TABLET BY MOUTH TWO TIMES A DAY 06/16/2016 08/14/2016 Inactive buspirone 10 mg tablet RxNorm: 101657 TAKE ONE TABLET BY MOUTH THREE TIMES A DAY 06/15/2016 10/12/2016 Inactive hydrocodone 7.5 mg-acetaminophen 325 mg tablet RxNorm: 662946 1 or 2 Tablet(s) PO Q4-6H as needed pain 06/07/20162016 Inactive metoprolol tartrate 25 mg tablet RxNorm: 935829 1/2 Tablet(s) PO QPM 05/10/2016 06/08/2016 Inactive lisinopril 10 mg tablet RxNorm: 726226 1/2 Tablet(s) PO daily 04/26/2016 07/27/2016 Inactive hydrocodone 7.5 mg-acetaminophen 325 mg tablet RxNorm: 837207 1 or 2 Tablet(s) PO Q4-6H as needed pain 04/25/20162016 Inactive lisinopril 10 mg tablet RxNorm: 000403 1/2 Tablet(s) PO daily 04/25/2016 04/25/2016 Inactive metoprolol tartrate 25 mg tablet RxNorm: 480075 1/2 Tablet(s) PO BID 04/25/2016 05/09/2016 Inactive allopurinol 300 mg tablet RxNorm: 623833 TAKE ONE TABLET BY MOUTH DAILY 04/19/2016 06/15/2016 Inactive metolazone 5 mg tablet RxNorm: 208752 TAKE 1 TABLET BY MOUTH TWICE WEEKLY 04/19/2016 09/05/2016 Inactive potassium chloride ER 10 mEq tablet,extended release RxNorm: 284272 2 Tablet(s) PO TID 03/21/2016 08/17/2016 Inactive warfarin 5 mg tablet RxNorm: 491279 1 Tablet(s) PO daily TAKE ONE TABLET BY MOUTH DAILY 03/21/2016 03/15/[address] Echevarria manages potassium chloride ER 10 mEq tablet,extended release(part/ cryst) RxNorm: 5682496 2 Tablet(s) PO TID 03/11/2016 03/20/2016 Inactive Xanax 0.25 mg tablet RxNorm: 419762 1 Tablet(s) PO TID as needed anxiety 03/10/2016 04/06/2016 Inactive Xanax 0.25 mg tablet RxNorm: 417598 1 Tablet(s) PO TID as needed anxiety 03/10/2016 12/31/2017 Inactive hydrocodone 7.5 mg-acetaminophen 325 mg tablet RxNorm: 128776 1 or 2 Tablet(s) PO Q4-6H as needed pain 02/26/20162016 Inactive Flonase Allergy Relief 50 mcg/actuation nasal spray, suspension RxNorm: 4035035 1 [place] NASAL each nare daily 01/19/2016 03/18/2016 Inactive cefdinir 300 mg capsule RxNorm: 006926 1 Capsule(s) PO BID 01/23/2016 Inactive take probiotic BID x 7 days Flonase Allergy Relief 50 mcg/actuation nasal spray, suspension RxNorm: 5661414 1 [place] NASAL each nare daily 01/19/2016 01/18/2016 Inactive allopurinol 300 mg tablet RxNorm: 780780 TAKE ONE TABLET BY MOUTH DAILY 01/18/2016 04/16/2016 Inactive Lasix 40 mg tablet RxNorm: 762904 1 Tablet(s) PO daily 201501/07/2017 Inactive (this was only twice daily x1 week) now it's daily cefdinir 300 mg capsule RxNorm: 807324 1 Capsule(s) PO BID 01/17/2016 Inactive take probiotic BID x 7 days cefdinir 300 mg capsule RxNorm: 259806 1 Capsule(s) PO BID 01/10/2016 Inactive buspirone 10 mg tablet RxNorm: 884922 TAKE ONE TABLET BY MOUTH THREE TIMES A DAY 01/11/2016 06/08/2016 Inactive hydrocodone 7.5 mg-acetaminophen 325 mg tablet RxNorm: 527841 1 or 2 Tablet(s) PO Q4-6H as needed pain 12/28/20152015 Inactive potassium chloride ER 10 mEq tablet,extended release(part/ cryst) RxNorm: 8316127 2 po TID x 2 days then 2 po BID Tablet(s) 12/28/2015 03/10/2016 Inactive potassium chloride ER 10 mEq tablet,extended release(part/ cryst) RxNorm: 0377981 TAKE ONE TABLET BY MOUTH TWICE A DAY FOR 1 WEEK THEN RETURN TO DAILY 12/28/2015 12/27/2015 Inactive meclizine 25 mg tablet RxNorm: 255800 1 Tablet(s) PO BID PRN No Stop Date Active potassium chloride ER 10 mEq tablet,extended release(part/ cryst) RxNorm: 6416559 1 Tablet(s) PO TID 12/08/2015 03/10/2016 Inactive potassium chloride ER 10 mEq tablet,extended release(part/ cryst) RxNorm: 1335063 2 Tablet(s) PO daily 11/26/20152015 Inactive cyanocobalamin (vit B-12) 1,000 mcg/mL injection solution RxNorm: 965868 INJECT 1 ML INTRAMUSCULARLY 2 TIMES A MONTH FOR 2 MONTHS, THEN ONCE A MONTH THEREAFTER 11/26/2015 04/23/2016 Inactive potassium chloride ER 10 mEq tablet,extended release(part/ cryst) RxNorm: 2971591 3 Tablet(s) PO daily 11/23/20152015 Inactive Lasix 40 mg tablet RxNorm: 1 Tablet(s) PO daily 201501/13/2016 Inactive (this was only twice daily x1 week) now it's daily metolazone 5 mg tablet RxNorm: 160123 1 Tablet(s) BIW TAKE ONE TABLET BY MOUTH DAILY 11/12/2015 04/18/2016 Inactive hydrocodone 7.5 mg-acetaminophen 325 mg tablet RxNorm: 663592 1 or 2 Tablet(s) PO Q4-6H as needed pain 11/12/20152015 Inactive Lasix 40 mg tablet RxNorm: 1 Tablet(s) PO daily 201511/11/2015 Inactive (this was only twice daily x1 week) now it's daily metolazone 5 mg tablet RxNorm: 657189 Tablet(s) TAKE ONE TABLET BY MOUTH DAILY 10/22/2015 10/29/2015 Inactive potassium chloride ER 10 mEq tablet,extended release(part/ cryst) RxNorm: 7426354 1 Tablet(s) PO daily 10/08/20152015 Inactive twice daily x 1 week then return to daily Lasix 40 mg tablet RxNorm: 1 Tablet(s) PO daily 201511/09/2015 Inactive twice daily x 1 week then daily thereafter Keflex 500 mg capsule RxNorm: 294574 1 Capsule(s) PO TID 201510/02/2015 Inactive Keflex 500 mg capsule RxNorm: 490842 1 Capsule(s) PO TID 201509/22/2015 Inactive hydrocodone 7.5 mg-acetaminophen 325 mg tablet RxNorm: 132970 1 or 2 Tablet(s) PO Q4-6H as needed pain 09/22/20152015 Inactive potassium chloride ER 10 mEq tablet,extended release(part/ cryst) RxNorm: 5306244 1 Tablet(s) PO BID 09/22/2015 10/07/2015 Inactive twice daily x 1 week then return to daily Lasix 40 mg tablet RxNorm: 268945 1 Tablet(s) PO BID 201510/07/2015 Inactive twice daily x 1 week then daily thereafter allopurinol 300 mg tablet RxNorm: 663480 1 Tablet(s) PO daily 09/09/2015 01/06/2016 Inactive diltiazem 90 mg tablet RxNorm: 931233 Tablet(s) TAKE ONE TABLET BY MOUTH THREE TIMES A DAY 09/02/2015 01/28/2016 Inactive diltiazem 90 mg tablet RxNorm: 917761 TAKE ONE TABLET BY MOUTH THREE TIMES A DAY 08/31/2015 01/28/2016 Inactive diltiazem 90 mg tablet RxNorm: 076695 TAKE ONE TABLET BY MOUTH THREE TIMES A DAY 08/31/2015 09/01/2015 Inactive Xanax 0.25 mg tablet RxNorm: 673316 1 Tablet(s) PO TID as needed anxiety 08/28/2015 09/26/2015 Inactive Xanax 0.25 mg tablet RxNorm: 424729 1 Tablet(s) PO TID as needed anxiety 08/28/2015 08/27/2015 Inactive potassium chloride ER 10 mEq tablet,extended release(part/ cryst) RxNorm: 754481 TAKE ONE TABLET BY MOUTH DAILY 08/27/2015 2015 Inactive omeprazole 20 mg capsule,delayed release RxNorm: 864880 TAKE ONE CAPSULE BY MOUTH TWICE A DAY 08/16/2015 02/11/2016 Inactive omeprazole 20 mg capsule,delayed release RxNorm: 859072 TAKE ONE CAPSULE BY MOUTH TWICE A DAY 08/16/2015 08/15/2015 Inactive hydrocodone 7.5 mg-acetaminophen 325 mg tablet RxNorm: 801299 1 or 2 Tablet(s) PO Q4-6H as needed pain 08/11/20152015 Inactive omeprazole 20 mg capsule,delayed release RxNorm: 079202 Capsule(s) TAKE ONE CAPSULE BY MOUTH TWICE A DAY 08/03/2015 Inactive omeprazole 20 mg capsule,delayed release RxNorm: 252382 Capsule(s) TAKE ONE CAPSULE BY MOUTH TWICE A DAY 07/31/2015 Inactive buspirone 10 mg tablet RxNorm: 778666 TAKE ONE TABLET BY MOUTH THREE TIMES A DAY 07/13/2015 01/08/2016 Inactive metolazone 5 mg tablet RxNorm: 595168 TAKE ONE TABLET BY MOUTH DAILY 07/02/2015 07/09/2015 Inactive metolazone 5 mg tablet RxNorm: 851433 1 Tablet(s) PO daily 06/18/2015 Inactive metolazone 5 mg tablet RxNorm: 155333 1 Tablet(s) PO daily 06/14/2015 Inactive hydrocodone 7.5 mg-acetaminophen 325 mg tablet RxNorm: 812833 1or2 1 or 2 Tablet(s ) PO Q4-6H as needed pain 06/12/201507/10 Inactive warfarin 1 mg tablet RxNorm: 305471 1 Tablet(s) 04/15/2015 06/22/2015 Inactive take with 3mg to make 4mg on Mon and repeat in 1 week. hydrocodone 7.5 mg-acetaminophen 325 mg tablet RxNorm: 596409 1or2 or 2 Tablet(s) PO Q4-6H as needed pain 03/31/20152015 Inactive hydrocodone 7.5 mg-acetaminophen 325 mg tablet RxNorm: 311267 1or2 or 2 Tablet(s) PO Q4-6H as needed pain 03/25/20152015 Inactive warfarin 5 mg tablet RxNorm: 200022 1 Tablet(s) PO daily TAKE ONE TABLET BY MOUTH DAILY 03/05/2015 06/22/2015 Inactive Xarelto 20 mg tablet RxNorm: 0230326 1 Tablet(s) PO QPM 201503/04/2015 Inactive losartan 100 mg tablet RxNorm: 146542 1 Tablet(s) PO daily 05/201406/22/2015 Inactive [SAVINGS FOR NON-COVERED DRUGS -- BIN:[id number], PCN: ASPROD1, Group: XXXXX, ID# [id number], Questions: . THIS IS NOT INSURANCE.] Kenalog 40 mg/mL suspension for injection RxNorm: 7752354 1 Milliliter(s) Inj 01/30/2015 01/30/2015 Inactive hydrocodone 7.5 mg-acetaminophen 325 mg tablet RxNorm: 744967 1or2 or 2 Tablet(s) PO Q4-6H as needed pain 01/15/20152014 Inactive Lasix 40 mg tablet RxNorm: 641145 1 Tablet(s) PO daily 201409/21/2015 Inactive as needed for swelling-take potassium when you take lasix potassium chloride ER 10 mEq tablet,extended release(part/ cryst) RxNorm: 814540 2 Tablet(s) PO daily 01/06/2015 01/19/2015 Inactive Lasix 40 mg tablet RxNorm: 989440 1 Tablet(s) PO daily 201401/06/2015 Inactive Ok to fill 20mg, not 40mg as needed for swelling-take potassium when you take lasix potassium chloride ER 10 mEq tablet,extended release(part/ cryst) RxNorm: 425363 1 Tablet(s) PO BID 12/30/2014 01/05/2015 Inactive Vitamin D2 50,000 unit capsule RxNorm: 311078 TAKE 1 CAPSULE BY MOUTH ONCE WEEKLY FOR 12 WEEKS 12/30/2014 03/23/2015 Inactive potassium chloride ER 10 mEq tablet,extended release(part/ cryst) RxNorm: 970016 1 Tablet(s) PO daily 12/26/2014 12/29/2014 Inactive potassium chloride ER 10 mEq tablet,extended release(part/ cryst) RxNorm: 697418 1 Tablet(s) PO daily 12/26/2014 12/25/2014 Inactive omeprazole 20 mg capsule,delayed release RxNorm: 113582 TAKE ONE CAPSULE BY MOUTH TWICE A DAY 12/24/2014 07/21/2015 Inactive Flagyl 500 mg tablet RxNorm: 397678 1 Tablet(s) PO TID 201412/20/2014 Inactive Flagyl 500 mg tablet RxNorm: 801450 1 Tablet(s) PO TID 201412/10/2014 Inactive warfarin 3 mg tablet RxNorm: 327610 TAKE ONE TABLET BY MOUTH DAILY 11/13/2014 01/29/2015 Inactive warfarin 3 mg tablet RxNorm: 810827 TAKE ONE TABLET BY MOUTH DAILY 11/13/2014 01/29/2015 Inactive warfarin 3 mg tablet RxNorm: 068968 TAKE ONE TABLET BY MOUTH DAILY 11/13/2014 03/04/2015 Inactive warfarin 3 mg tablet RxNorm: 913089 1 Tablet(s) PO daily 201403/04/2015 Inactive allopurinol 300 mg tablet RxNorm: 417750 1 Tablet(s) PO daily 11/11/2014 03/10/2015 Inactive hydrocodone 7.5 mg-acetaminophen 325 mg tablet RxNorm: 380912 1or2 or 2 Tablet(s) PO Q4-6H as needed pain 11/10/20142014 Inactive hydrocodone 7.5 mg-acetaminophen 325 mg tablet RxNorm: 417521 1or2 or 2 Tablet(s) PO Q4-6H as needed pain 10/15/20142014 Inactive hydrocodone 7.5 mg-acetaminophen 325 mg tablet RxNorm: 557106 1or2 or 2 Tablet(s) PO Q4-6H as needed pain 10/15/20142014 Inactive Kenalog 40 mg/mL suspension for injection RxNorm: 4400753 Milliliter(s) Inj 10/14/2014 10/14/2014 Inactive ceftriaxone 500 mg solution for injection RxNorm: 7325492 Inj 10/14/2014 10/14/2014 Inactive Zithromax Z-Chito 250 mg tablet RxNorm: 792107 1 Tablet(s) PO UD 10/14/2014 01/29/2015 Inactive zpack cefdinir 300 mg capsule RxNorm: 864596 1 Capsule(s) PO BID 10/20/2014 Inactive Vitamin D2 50,000 unit capsule RxNorm: 231291 1 Capsule(s) PO weekly x 12 weeks 09/24/2014 09/23/2014 Inactive Vitamin D2 50,000 unit capsule RxNorm: 636367 1 Capsule(s) PO weekly x 12 weeks 09/24/2014 12/22/2014 Inactive warfarin 1 mg tablet RxNorm: 101561 TAKE 1/2 TABLET BY MOUTH DAILY WITH 3MG TABLET TO EQUAL 3.5MG DAILY 09/22/201404/2014 Inactive warfarin 1 mg tablet RxNorm: 335654 1/2 Tablet(s) PO daily 3.5mg 08/26/2014 2014 Inactive taking with a 3mg to make 3.5mg tablets Lasix 20 mg tablet RxNorm: 557135 1 Tablet(s) PO QDAY PRN 09/24/2014 Inactive Ok to fill 20mg, not 40mg as needed for swelling-take potassium when you take lasix buspirone 10 mg tablet RxNorm: 731815 1 Tablet(s) PO TID 201411/25/2014 Inactive takes it BID but if she feels anxious she takes one during the day Lasix 20 mg tablet RxNorm: 333951 1 Tablet(s) PO QDAY PRN 08/25/2014 Inactive as needed for swelling-take potassium when you take lasix warfarin 1 mg tablet RxNorm: 655731 1/2 Tablet(s) PO daily 3.5mg 08/15/2014 08/21/2014 Inactive taking with a 3mg to make 3.5mg tablets warfarin 3 mg tablet RxNorm: 587293 1 Tablet(s) PO daily 201410/11/2014 Inactive diltiazem 90 mg tablet RxNorm: 464098 1 Tablet(s) PO TID 201408/30/2015 Inactive warfarin 1 mg tablet RxNorm: 591175 1/2 Tablet(s) PO daily 3.5mg 08/05/2014 08/11/2014 Inactive taking with a 3mg to make 3.5mg tablets cyclobenzaprine 10 mg tablet RxNorm: 809953 1 Tablet(s) PO QHS 08/04/2014 11/01/2014 Inactive buspirone 10 mg tablet RxNorm: 366609 1 Tablet(s) PO QID 201408/21/2014 Inactive allopurinol 300 mg tablet RxNorm: 035557 1 Tablet(s) PO daily 08/04/2014 11/01/2014 Inactive clonazepam 0.5 mg tablet RxNorm: 879420 1 Tablet(s) PO daily 09/02/2014 Inactive omeprazole 20 mg capsule,delayed release RxNorm: 230646 1 Capsule(s) PO BID 08/04/2014 11/01/2014 Inactive atenolol 25 mg tablet RxNorm: 504804 1 Tablet(s) PO daily 201411/01/2014 Inactive warfarin 3 mg tablet RxNorm: 132138 1 Tablet(s) PO daily 201408/04/2014 Inactive diphenhydramine 2 % topical cream RxNorm: 3367705 1 Application TOP Q6 PRN 07/24/2014 01/29/2015 Inactive diltiazem 90 mg tablet RxNorm: 427242 1 Tablet(s) PO BID 201408/04/2014 Inactive cyclobenzaprine 10 mg tablet RxNorm: 590683 1 Tablet(s) PO QH 07/24/2014 08/03/2014 Inactive warfarin 2.5 mg tablet RxNorm: 709283 1 Tablet(s) PO daily 08/22/2014 Inactive [SAVINGS FOR NON-COVERED DRUGS -- BIN:[id number], PCN: ASPROD1, Group: XXXXX, ID# [id number], Questions: . THIS IS NOT INSURANCE.] losartan 25 mg tablet RxNorm: 657405 1 Tablet(s) PO daily 201401/29/2015 Inactive [SAVINGS FOR NON-COVERED DRUGS -- BIN:[id number], PCN: ASPROD1, Group: XXXXX, ID # [id number], Questions: . THIS IS NOT INSURANCE.] isosorbide mononitrate oral RxNorm: 6057 oral No Start Date Active diltiazem ER 360 mg tablet,extended release 24 hr RxNorm: 445246 1 Tablet(s) PO daily No Start Date Active benazepril 10 mg tablet RxNorm: 005581 1 Tablet(s) PO daily No Start Date 07/14/2014 Inactive lisinopril 10 mg tablet RxNorm: 908428 1 Tablet(s) PO daily No Start Date 04/24/2016 Inactive clonazepam 0.5 mg tablet RxNorm: 240343 1 Tablet(s) PO daily No Start Date 08/03/2014 Inactive diltiazem 90 mg tablet RxNorm: 987273 1 Tablet(s) PO daily No Start Date 07/23/2014 Inactive atenolol 25 mg tablet RxNorm: 710810 1 Tablet(s) PO daily No Start Date 08/03/2014 Inactive buspirone 10 mg tablet RxNorm: 464936 1 Tablet(s) PO QID No Start Date 08/03/2014 Inactive omeprazole 20 mg capsule,delayed release RxNorm: 210015 1 Capsule(s) PO BID No Start Date 08/03/2014 Inactive allopurinol 300 mg tablet RxNorm: 049795 1 Tablet(s) PO daily No Start Date 08/03/2014 Inactive Xarelto 20 mg tablet RxNorm: 4743386 1 Tablet(s) PO daily No Start Date 03/03/2015 Inactive warfarin 2 mg tablet RxNorm: 193353 1 Tablet(s) PO daily No Start Date 07/16/2014 Inactive cyanocobalamin (vit B-12) 1,000 mcg/mL injection solution RxNorm: 651046 1 Milliliter(s) Inj monthly No Start Date Inactive cyclobenzaprine 10 mg tablet RxNorm: 524219 1 Tablet(s) PO BID No Start Date 07/23/2014 Inactive Eliquis 2.5 mg tablet RxNorm: 1473303 1 Tablet(s) PO daily No Start Date 03/03/2015 Inactive Medication Administered Medication Codes Instructions Start Date Status Kenalog 40 mg/mL suspension for injection RxNorm: 3489934 1Milliliter 01/30/2015 No longer Active ceftriaxone 500 mg solution for injection RxNorm: 3027715 10/14/2014 No longer Active Kenalog 40 mg/mL suspension for injection RxNorm: 6270347 Milliliter 10/14/2014 No longer Active Immunizations Vaccine [...] behavioral disturbance ICD-10: F01.50 ICD-9: 290.40 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 ICD-9: [...] Code Item Item Code Result Date Pt [id number] PT 32.8 seconds 04/06/2018 Pt Vte1361 INR 3.2 04/06/2018 Pt Jxx8161 Low Intensity - 1.5-2.0 04/06/2018 Pt Rmb0325 Mod intensity - 2.0-3.0 04/06/2018 Pt Nba3484 Hi intensity - 3.0-4.0 04/06/2018 Metabolic Ord15 [...] Metabolic Ord15 CALCIUM 9.3 mg/dL 03/28/2018 Pt Jqm1625 PT 31.7 seconds 03/28/2018 Pt Cws3110 INR 3.1 03/28/2018 Pt Rgh4398 Low Intensity - 1.5-2.0 03/28/2018 Pt Iwp8182 Mod intensity - 2.0-3.0 03/28/2018 Pt Vns6013 Hi intensity - 3.0-4.0 03/28/2018 Pt Buh5727 PT 23.4 seconds 02/21/2018 Pt Lcs5691 INR 2.1 02/21/2018 Pt Umd5352 Low Intensity - 1.5-2.0 02/21/2018 Pt Cep4639 Mod intensity - 2.0-3.0 02/21/2018 Pt Tzz2653 Hi intensity - 3.0-4.0 02/21/2018 Metabolic Ord15 NA 139 mEq/L 02/21/2018 Metabolic [...] 02/21/2018 Metabolic Ord15 CALCIUM 9.0 mg/dL 02/21/2018 Metabolic Ord15 NA 139 mEq/L 01/15/2018 Metabolic [...] Metabolic Ord15 CALCIUM 9.2 mg/dL 01/15/2018 Pt Cqa4362 PT 27.0 seconds 01/15/2018 Pt Rqz6949 INR 2.5 01/15/2018 Pt Trg3287 Low Intensity - 1.5-2.0 01/15/2018 Pt Hhp9083 Mod intensity - 2.0-3.0 01/15/2018 Pt Sfa4987 Hi intensity - 3.0-4.0 01/15/2018 Pt Zwj8670 PT 29.3 seconds 12/18/2017 Pt Spn4724 INR 2.8 12/18/2017 Pt Fek8701 Low Intensity - 1.5-2.0 12/18/2017 Pt Hex5181 Mod intensity - 2.0-3.0 12/18/2017 Pt Koo4852 Hi intensity - 3.0-4.0 12/18/2017 Metabolic Ord15 [...] 12/18/2017 Metabolic Ord15 CALCIUM 9.7 mg/dL 12/18/2017 Cbc With Differential Ord2 WBC 9.90 K/ul 09/29/2015 Cbc With Differential Ord2 RBC 3.64 M/ul 09/29/2015 Cbc With Differential Ord2 HGB 9.5 g/dl 09/29/2015 Cbc With Differential Ord2 HCT 30.6 % 09/29/2015 Cbc With Differential Ord2 Neut% 65.2 % 09/29/2015 Cbc With Differential Ord2 MCV 84.1 fl 09/29/2015 Cbc With Differential Ord2 Lymph% 14.2 % 09/29/2015 Cbc With Differential Ord2 [place]% 18.3 % 09/29/2015 Cbc With Differential Ord2 MCH 26.1 pg 09/29/2015 Cbc With Differential Ord2 MCHC 31.0 pg 09/29/2015 Cbc With Differential Ord2 Eos% 1.7 % 09/29/2015 Cbc With Differential Ord2 PLT 380 K/ul 09/29/2015 Cbc With Differential Ord2 Baso% 0.6 % 09/29/2015 Cbc With Differential Ord2 RDW 18.1 % 09/29/2015 Cbc With Differential Ord2 Neut ABS# 6.45 K/ul 09/29/2015 Cbc With Differential Ord2 Lymph ABS# 1.41 K/ul 09/29/2015 Cbc With Differential Ord2 [place] ABS# 1.8 K/ul 09/29/2015 Cbc With Differential Ord2 Eos ABS# 0.2 K/ul 09/29/2015 Cbc With Differential Ord2 Baso ABS# 0.1 K/ul 09/29/2015 Comp Metabolic Afb456 NA 138 mEq/L 09/29/2015 Comp Metabolic Eqf716 K 4.6 mEq/L 09/29/2015 Comp Metabolic Qyr422 CL 102 mEq/L 09/29/2015 Comp Metabolic Ivs148 CO2 28.0 mEq/L 09/29/2015 Comp Metabolic Rhd387 ANION GAP 13 09/29/2015 Comp Metabolic Pbr040 GLUCOSE 83 mg/dL 09/29/2015 Comp Metabolic Znu483 Creat 1.1 mg/dL 09/29/2015 Comp Metabolic Nbz859 eGFR 52 ml/min/1.73m2 09/29/2015 Comp Metabolic Dzi855 BUN 18 mg/dL 09/29/2015 Comp Metabolic Ypn260 B/C Ratio 16.7 Ratio 09/29/2015 Comp Metabolic Oun062 CALCIUM 9.6 mg/dL 09/29/2015 Comp Metabolic Hnq554 ALK PHOS 188 U/L 09/29/2015 Comp Metabolic Luo808 AST(SGOT) 19 U/L 09/29/2015 Comp Metabolic Dak607 ALT(SGPT) 12 U/L 09/29/2015 Comp Metabolic Frq080 BILI T 0.6 mg/dL 09/29/2015 Comp Metabolic Sod930 ALBUMIN 4.0 g/dL 09/29/2015 Comp Metabolic Ale489 TPRO 6.6 g/dL 09/29/2015 Comp Metabolic Vms117 GLOB 2.6 g/dL 09/29/2015 Comp Metabolic Bqx950 A/G Ratio 1.5 Ratio 09/29/2015 Comp Metabolic Xna189 Osmo 277 mOsmo 09/29/2015 Comp Metabolic Qrw213 NA 134 mEq/L 09/22/2015 Comp Metabolic Doq073 K 4.7 mEq/L 09/22/2015 Comp Metabolic Dnn695 CL 98 mEq/L 09/22/2015 Comp Metabolic Hqp604 CO2 26.0 mEq/L 09/22/2015 Comp Metabolic Obo541 ANION GAP 15 09/22/2015 Comp Metabolic Yrm132 GLUCOSE 83 mg/dL 09/22/2015 Comp Metabolic Nul393 Creat 1.1 mg/dL 09/22/2015 Comp Metabolic Bvf649 eGFR 52 ml/min/1.73m2 09/22/2015 Comp Metabolic Wxb826 BUN 19 mg/dL 09/22/2015 Comp Metabolic Mbd797 B/C Ratio 17.8 Ratio 09/22/2015 Comp Metabolic Iii275 CALCIUM 9.4 mg/dL 09/22/2015 Comp Metabolic Vpr775 ALK PHOS 182 U/L 09/22/2015 Comp Metabolic Gan501 AST(SGOT) 30 U/L 09/22/2015 Comp Metabolic Che452 ALT(SGPT) 16 U/L 09/22/2015 Comp Metabolic Ucn302 BILI T 0.8 mg/dL 09/22/2015 Comp Metabolic Jrz044 ALBUMIN 3.9 g/dL 09/22/2015 Comp Metabolic Jwc121 TPRO 6.8 g/dL 09/22/2015 Comp Metabolic Yiv467 GLOB 2.9 g/dL 09/22/2015 Comp Metabolic Bwb152 A/G Ratio 1.3 Ratio 09/22/2015 Comp Metabolic Snm615 Osmo 270 mOsmo 09/22/2015 Cbc With Differential Ord2 WBC 10.76 K/ul 09/22/2015 Cbc With Differential Ord2 RBC 3.69 M/ul 09/22/2015 Cbc With Differential Ord2 HGB 9.5 g/dl 09/22/2015 Cbc With Differential Ord2 Neut% 66.6 % 09/22/2015 Cbc With Differential Ord2 HCT 30.7 % 09/22/2015 Cbc With Differential Ord2 Lymph% 16.8 % 09/22/2015 Cbc With Differential Ord2 MCV 83.2 fl 09/22/2015 Cbc With Differential Ord2 [place]% 15.4 % 09/22/2015 Cbc With Differential Ord2 MCH 25.7 pg 09/22/2015 Cbc With Differential Ord2 MCHC 30.9 pg 09/22/2015 Cbc With Differential Ord2 Eos% 0.7 % 09/22/2015 Cbc With Differential Ord2 Baso% 0.5 % 09/22/2015 Cbc With Differential Ord2 PLT 345 K/ul 09/22/2015 Cbc With Differential Ord2 RDW 18.5 % 09/22/2015 Cbc With Differential Ord2 Neut ABS# 7.16 K/ul 09/22/2015 Cbc With Differential Ord2 Lymph ABS# 1.81 K/ul 09/22/2015 Cbc With Differential Ord2 [place] ABS# 1.7 K/ul 09/22/2015 Cbc With Differential [...] 16.5 % 06/02/2015 Cbc With Differential Ord2 [place]% 16.6 % 06/02/2015 Cbc With Differential Ord2 MCH 27.8 pg 06/02/2015 Cbc With Differential Ord2 Eos% 0.5 % 06/02/2015 Cbc With Differential Ord2 MCHC 31.7 pg 06/02/2015 Cbc With Differential Ord2 PLT 457 K/ul 06/02/2015 Cbc With Differential Ord2 Baso% 0.3 % 06/02/2015 Cbc With Differential Ord2 Neut ABS# 6.95 K/ul 06/02/2015 Cbc With Differential Ord2 RDW 16.6 % 06/02/2015 Cbc With Differential Ord2 Lymph ABS# 1.74 K/ul 06/02/2015 Cbc With Differential Ord2 [place] ABS# 1.8 K/ul 06/02/2015 Cbc With Differential Ord2 Eos ABS# 0.1 K/ul 06/02/2015 Cbc With Differential Ord2 Baso ABS# 0.0 K/ul 06/02/2015 Cbc With Differential Ord2 New Analyzer Notice Please note new ref ranges starting 03-11-2015 due to implemntation of new five part differential hematolgy analyzer. 06/02/2015 Pt Zej2935 PT 21.8 seconds 06/02/2015 Pt Ziz8720 INR 2.0 06/02/2015 Pt Qhu0295 Low Intensity - 1.5-2.0 06/02/2015 Pt Raj3196 Mod intensity - 2.0-3.0 06/02/2015 Pt Efj9558 Hi intensity - 3.0-4.0 06/02/2015 Comp Metabolic Kmu974 NA 132 mEq/L 06/02/2015 Comp Metabolic Oqe266 K 4.4 mEq/L 06/02/2015 Comp Metabolic Leg367 CL 94 mEq/L 06/02/2015 Comp Metabolic Ocg413 CO2 26.0 mEq/L 06/02/2015 Comp Metabolic Wxg868 ANION GAP 16 06/02/2015 Comp Metabolic Cvf713 GLUCOSE 97 mg/dL 06/02/2015 Comp Metabolic Cis097 Creat 1.2 mg/dL 06/02/2015 Comp Metabolic Zpv093 eGFR 46 ml/min/1.73m2 06/02/2015 Comp Metabolic Hqd560 BUN 19 mg/dL 06/02/2015 Comp Metabolic Kxo588 B/C Ratio 15.8 Ratio 06/02/2015 Comp Metabolic Vtg406 CALCIUM 9.4 mg/dL 06/02/2015 Comp Metabolic Xzq027 ALK PHOS 178 U/L 06/02/2015 Comp Metabolic Aku921 AST(SGOT) 32 U/L 06/02/2015 Comp Metabolic Got095 ALT(SGPT) 31 U/L 06/02/2015 Comp Metabolic Pmz512 BILI T 0.6 mg/dL 06/02/2015 Comp Metabolic Mhj895 ALBUMIN 4.0 g/dL 06/02/2015 Comp Metabolic Vae166 TPRO 6.5 g/dL 06/02/2015 Comp Metabolic Itb554 GLOB 2.5 g/dL 06/02/2015 Comp Metabolic Xjv838 A/G Ratio 1.6 Ratio 06/02/2015 Comp Metabolic Yoo406 Osmo 267 mOsmo 06/02/2015 B12 Jqm296 B12 160.00 pg/ml 04/01/2015 Iron Ord72 Iron 39 ug/dl 04/01/2015 Vitamin D 25 Oh Iqe5975 VITAMIN D, 25 HYDROXY 61.20 ng/mL Pt Jtj1693 PT 36.9 seconds 03/31/2015 Pt Pxp3039 INR 3.9 03/31/2015 Pt Rmv2899 Low Intensity - 1.5-2.0 03/31/2015 Pt Hzc8686 Mod intensity - 2.0-3.0 03/31/2015 Pt Ylq5517 Hi intensity - 3.0-4.0 03/31/2015 Comp Metabolic Mxh982 NA 131 mEq/L 03/31/2015 Comp Metabolic Aoa506 K 5.3 mEq/L 03/31/2015 Comp Metabolic Jlp592 CL 97 mEq/L 03/31/2015 Comp Metabolic Sjm056 CO2 24.0 mEq/L 03/31/2015 Comp Metabolic Dsy028 ANION GAP 15 03/31/2015 Comp Metabolic Xdg693 GLUCOSE 84 mg/dL 03/31/2015 Comp Metabolic Ubq023 Creat 1.3 mg/dL 03/31/2015 Comp Metabolic Phi939 eGFR 42 ml/min/1.73m2 03/31/2015 Comp Metabolic Pur742 BUN 26 mg/dL 03/31/2015 Comp Metabolic Ivw507 B/C Ratio 20.2 Ratio 03/31/2015 Comp Metabolic Dwk253 CALCIUM 9.4 mg/dL 03/31/2015 Comp Metabolic Ygf854 ALK PHOS 172 U/L 03/31/2015 Comp Metabolic Utf263 AST(SGOT) 21 U/L 03/31/2015 Comp Metabolic Nkg663 ALT(SGPT) 27 U/L 03/31/2015 Comp Metabolic Uud564 BILI T 0.5 mg/dL 03/31/2015 Comp Metabolic Mpc407 ALBUMIN 4.0 g/dL 03/31/2015 Comp Metabolic Bfc614 TPRO 6.8 g/dL 03/31/2015 Comp Metabolic Nai725 GLOB 2.8 g/dL 03/31/2015 Comp Metabolic Tob202 A/G Ratio 1.4 Ratio 03/31/2015 Comp Metabolic Oub866 Osmo 267 mOsmo 03/31/2015 Cbc With Differential [...] 14.0 % 03/31/2015 Cbc With Differential Ord2 [place]% 14.0 % 03/31/2015 Cbc With Differential Ord2 MCH 28.3 pg 03/31/2015 Cbc With Differential Ord2 MCHC 31.8 pg 03/31/2015 Cbc With Differential Ord2 Eos% 0.5 % 03/31/2015 Cbc With Differential Ord2 PLT 414 K/ul 03/31/2015 Cbc With Differential Ord2 Baso% 0.3 % 03/31/2015 Cbc With Differential Ord2 RDW 17.4 % 03/31/2015 Cbc With Differential Ord2 Neut ABS# 8.25 K/ul 03/31/2015 Cbc With Differential Ord2 Lymph ABS# 1.62 K/ul 03/31/2015 Cbc With Differential Ord2 [place] ABS# 1.6 K/ul 03/31/2015 Cbc With Differential Ord2 Eos ABS# 0.1 K/ul 03/31/2015 Cbc With Differential Ord2 Baso ABS# 0.0 K/ul 03/31/2015 Cbc With Differential Ord2 New Analyzer Notice Please note new ref ranges starting 03-11-2015 due to implemntation of new five part differential hematolgy analyzer. 03/31/2015 Tsh Ord6 hTSH II 1.87 uIU/mL 03/31/2015 Urine Culture Ucult Preliminary No Growth Day 1 11/10/2014 Urine Culture Ucult Complete No Growth Day 2 11/10/2014 Magnesium Ord90 Mag 2.0 mg/dL 09/19/2014 Lipid Ord30 CHOL 216 mg/dL 09/19/2014 Lipid Ord30 HDL 78.0 mg/dl 09/19/2014 Lipid Ord30 TRIG 85 mg/dL 09/19/2014 Lipid Ord30 LDL 121 mg/dL 09/19/2014 Lipid Ord30 C/HDL 2.8 Ratio 09/19/2014 Comp Metabolic Fyd156 NA 134 mEq/L 09/19/2014 Comp Metabolic Opd258 K 4.7 mEq/L 09/19/2014 Comp Metabolic Btc506 CL 98 mEq/L 09/19/2014 Comp Metabolic Xxv308 CO2 27.0 mEq/L 09/19/2014 Comp Metabolic Rei897 ANION GAP 14 09/19/2014 Comp Metabolic Mmi450 GLUCOSE 94 mg/dL 09/19/2014 Comp Metabolic Djf023 Creat 1.1 mg/dL 09/19/2014 Comp Metabolic Skx914 eGFR 49 ml/min/1.73m2 09/19/2014 Comp Metabolic Gir161 BUN 14 mg/dL 09/19/2014 Comp Metabolic Hsr518 B/C Ratio 12.3 Ratio 09/19/2014 Comp Metabolic Tsg045 CALCIUM 9.7 mg/dL 09/19/2014 Comp Metabolic Nar077 ALK PHOS 150 U/L 09/19/2014 Comp Metabolic Cgb476 AST(SGOT) 16 U/L 09/19/2014 Comp Metabolic Rco899 ALT(SGPT) 9 U/L 09/19/2014 Comp Metabolic Ddt876 BILI T 0.8 mg/dL 09/19/2014 Comp Metabolic Vyd035 ALBUMIN 3.9 g/dL 09/19/2014 Comp Metabolic Xwk306 TPRO 6.8 g/dL 09/19/2014 Comp Metabolic Izj410 GLOB 2.9 g/dL 09/19/2014 Comp Metabolic Hqv430 A/G Ratio 1.3 Ratio 09/19/2014 Comp Metabolic Kcv773 Osmo 268 mOsmo 09/19/2014 Cbc With Differential [...] With Differential Ord2 RDW 17.6 % 09/19/2014 Vitamin D 25 Oh Yib1248 VITAMIN D, 25 HYDROXY 14.13 ng/mL Tsh Ord6 hTSH II 1.40 uIU/mL 09/19/2014 Pt Fnu6592 PT 29.1 seconds 09/19/2014 Pt Sys8209 INR 2.9 09/19/2014 Pt Liv5302 Low Intensity - 1.5-2.0 09/19/2014 Pt Mzu3117 Mod intensity - 2.0-3.0 09/19/2014 Pt Fwg5741 Hi intensity - 3.0-4.0 09/19/2014 Review of Systems System Result Effective [...] dentition 03/27/2018 None Full Exam - General 1994 Ears/Nose/Throat lips/teeth/gingiva Overall: benign gingiva 03/27/2018 None Full Exam - General 1994 Ears/Nose/Throat lips/teeth/gingiva Overall: no masses 03/27/2018 None Full Exam - General 1995 Ears/Nose/Throat oral cavity/pharynx/larynx Overall: oral mucosa clear 03/27/2018 None Full Exam - General 1995 Ears/Nose/Throat oral cavity/pharynx/larynx Overall: oropharyngeal mucosa clear 03/27/2018 None Full Exam - General 1995 Ears/Nose/Throat oral cavity/pharynx/larynx Overall: no masses 03/27/2018 [...] gingiva 03/15/2018 None Full Exam - General 1994 Ears/Nose/Throat lips/teeth/gingiva Overall: no masses 03/15/2018 None [...] dentition 12/12/2017 None Full Exam - General 1995 Ears/Nose/Throat lips/teeth/gingiva Overall: benign gingiva 12/12/2017 None [...] 1994 Ears/Nose/Throat oral cavity/pharynx/larynx Overall: no masses 09/05/2017 [...] General 1995 Ears/Nose/Throat lips/teeth/gingiva Overall: benign lips 03/07/2017 None [...] 1995 Ears/Nose/Throat oral cavity/pharynx/larynx Overall: no masses 03/07/2017 [...] YRS PLUS IM Formatting Model/CDA Sections, Assigned to/Shamar Indira SNOMED CT: [id number] CPT-4: 98066Dcprwig 12/10/2015 TRIAMCINOLONE ACET INJ NOS CPT-4: J3301 01/30/2015 URINALYSIS NONAUTO W/O SCOPE CPT-4: 02318 11/07/2014 ROCEPHIN, PER 250 MG CPT-4: J0696 10/14/2014 TRIAMCINOLONE ACET INJ NOS CPT-4: J3301 10/14/2014 Vital Signs Date Vital 03/27/2018 Blood Pressure 1: 120/62 Code : 8480-6 Heart Rate 1: 58 bpm Height: 5'2" SpO2: 98% Weight: 03/15/2018 Blood Pressure 1: 146/60 Code : 8480-6 BMI: 25.2 Code : 85464-2 Heart Rate 1 : 79 bpm Height: 5'2" SpO2: 98% Weight: 138 lbs 12/12/2017 Blood Pressure 1: 130/60 Code : 8480-6 BMI: 25.2 Code : 54194-0 Heart Rate 1 : 60 bpm Height: 5'2" SpO2: 98% Weight: 138 lbs 09/05/2017 Blood Pressure 1: 108/46 Code : 8480-6 BMI: 24.0 Code : 78737-5 Heart Rate 1 : 70 bpm Height: 5'2" SpO2: 96% Weight: 131 lbs 05/09/2017 Blood Pressure 1: 122/82 Code : 8480-6 BMI: 25.2 Code : 16250-3 Heart Rate 1 : 72 bpm Height: 5'2" SpO2: 95% Weight: 138 lbs 03/07/2017 Blood Pressure 1: 108/52 Code : 8480-6 BMI: 27.6 Code : 22618-7 Heart Rate 1 : 72 bpm Height: 5'2" SpO2: 96% Weight: 151 lbs 01/24/2017 Blood Pressure 1: 126/60 Code : 8480-6 BMI: 27.1 Code : 31558-3 Heart Rate 1 : 60 bpm Height: [...] Code : 8480-6 BMI: 26.8 Code : 83447-0 Heart Rate 1 : 59 bpm Height: 5'2" SpO2: 97% Weight: 146 lbs 8 oz 05/10/2016 Blood Pressure 1: 120/56 Code : 8480-6 BMI: 27.1 Code : 18249-1 Heart Rate 1 : 63 bpm Height: 5'2" SpO2: 97% Weight: 148 lbs 04/25/2016 Blood Pressure 1: 134/66 Code : 8480-6 BMI: 24.9 Code : 89359-2 Heart Rate 1 : 118 bpm Height: 5'2" SpO2: 93% Temperature: 36.8 (C) / 98.3 (F) Weight: 136 lbs 01/14/2016 Blood Pressure 1: 132/78 Code : 8480-6 BMI: 25.6 Code : 37873-8 Heart Rate 1 : 97 bpm Height: 5'2" SpO2: 95% Weight: 140 lbs 12/10/2015 Blood Pressure 1: 118/72 Code : 8480-6 BMI: 26.2 Code : 70215-0 Heart Rate 1 : 68 bpm Height: 5'2" SpO2: 95% Weight: 143 lbs 11/12/2015 Blood Pressure 1: 140/80 Code : 8480-6 BMI: 25.6 Code : 74240-1 Heart Rate 1 : 77 bpm Height: 5'2" SpO2: 93% Weight: 140 lbs 10/08/2015 Blood Pressure 1: 132/60 Code : 8480-6 BMI: 26.2 Code : 95611-7 Heart Rate 1 : 77 bpm Height: 5'2" SpO2: 96% Weight: 143 lbs 09/29/2015 Blood Pressure 1: 130/62 Code : 8480-6 BMI: 27.1 Code : 98987-4 Heart Rate 1 : 86 bpm Height: 5'2" SpO2: 93% Weight: 148 lbs 09/22/2015 Blood Pressure 1: 164/72 Code : 8480-6 BMI: 28.2 Code : 95435-2 Heart Rate 1 : 79 bpm Height: 5'2" SpO2: 92% Weight: 154 lbs 07/21/2015 Blood Pressure 1: 124/70 Code : 8480-6 BMI: 24.5 Code : 25583-1 Heart Rate 1 : 71 bpm Height: 5'2" SpO2: 98% Weight: 134 lbs 06/23/2015 Blood Pressure 1: 122/68 Code : 8480-6 BMI: 25.4 Code : 26086-8 Heart Rate 1 : 78 bpm Height: 5'2" SpO2: 92% Weight: 139 lbs 06/12/2015 Blood Pressure 1: 154/62 Code : 8480-6 BMI: 27.4 Code : 20254-8 Heart Rate 1 : 87 bpm Height: 5'2" SpO2: 94% Weight: 150 lbs 06/02/2015 Blood Pressure 1: 140/68 Code : 8480-6 Heart Rate 1: 90 bpm SpO2: 91% Weight: 142 lbs 03/31/2015 Blood Pressure 1: 120/56 Code : 8480-6 BMI: 23.6 Code : 75406-4 Heart Rate 1 : 82 bpm Height: 5'2" SpO2: 98% Weight: 129 lbs 01/30/2015 Blood Pressure 1: 108/62 Code : 8480-6 BMI: 22.1 Code : 44285-3 Heart Rate 1 : 8299 bpm Height: 5'2 " SpO2: 99% Weight: 121 lbs 12/22/2014 Blood Pressure 1: 130/70 Code : 8480-6 BMI: 21.8 Code : 36746-9 Heart Rate 1 : 106 bpm Height: 5'2" SpO2: 98% Weight: 119 lbs 10/29/2014 Blood Pressure 1: 118/58 Code : 8480-6 BMI: 23.2 Code : 89474-1 Heart Rate 1 : 74 bpm Height: 5'2" SpO2: 93% Weight: 127 lbs 10/14/2014 Blood Pressure 1: 128/64 Code : 8480-6 BMI: 22.9 Code : 26920-4 Heart Rate 1 : 79 bpm Height: 5'2" SpO2: 93% Temperature: 35.9 (C) / 96.6 (F) Weight: 125 lbs 09/19/2014 Blood Pressure 1: 132/72 Code : 8480-6 BMI: 22.9 Code : 88746-3 Heart Rate 1 : 84 bpm Height: 5'2" SpO2: 96% Weight: 125 lbs 08/22/2014 Blood Pressure 1: 124/72 Code : 8480-6 BMI: 23.0 Code : 79443-6 Heart Rate 1 : 64 bpm Height: 5'2" Weight: 126 lbs 08/04/2014 Blood Pressure 1: 126/86 Code : 8480-6 BMI: 23.6 Code : 05401-5 Height: 5'2" Respiratory Rate: 20 bpm Weight: 129 lbs 07/24/2014 Blood Pressure 1: 116/72 Code : 8480-6 BMI: 23.6 Code : 50765-3 Heart Rate 1 : 74 bpm Height: 5'2" Weight: 129 lbs 07/15/2014 Blood Pressure 1: 132/78 Code : 8480-6 BMI: 24.1 Code : 57535-5 Heart Rate 1 : 74 bpm Height: 5'2" SpO2: 97% Weight: 132 lbs Functional Status No Functional Status data History of Present Illness Symptom Name Status Result Effective Date Notes Location in the [facility] 03/27/2018 None Onset and Resolution ongoing [...] data Encounters Encounter Performer Location Codes Date ([id number]) [id number] EST. PATIENT, LEVEL IV Diagnosis: Essential (primary) hypertension[ICD10: I10] Diagnosis: Localized edema[ICD10: R60.0] Diagnosis: Right lower quadrant pain[ICD10: R10.31] Merle Daigle MD, [facility] CPT-4: 94999 03/27/2018 ([id number]) 12505 EST. PATIENT, LEVEL IV Diagnosis: Right lower quadrant pain[ICD10: R10.31] Diagnosis: Diarrhea, unspecified[ICD10: R19.7] Diagnosis: Essential (primary) hypertension[ICD10: I10] Diagnosis: Low back pain[ICD10: M54.5] Diagnosis: Gastro-esophageal reflux disease without esophagitis[ICD10: K21.9] Merle Daigle MD, [facility] CPT-4: 88736 03/15/2018 ([id number]) 04174 EST. PATIENT, LEVEL IV Diagnosis: Essential (primary) hypertension[ICD10: I10] Diagnosis: [facility] (current) use of anticoagulants[ICD10: Z79.01] Diagnosis: Other malaise[ICD10: R53.81] Diagnosis: Vascular dementia without behavioral disturbance[ICD10: F01.50] Veronica Daigle MD, [facility] CPT-4: 54517 12/12/2017 ([id number]) 36125 EST. PATIENT, LEVEL IV Diagnosis: Paroxysmal atrial fibrillation[ICD10: I48.0] Diagnosis: Essential (primary) hypertension[ICD10: I10] Diagnosis: [facility] (current) use of anticoagulants[ICD10: Z79.01] Diagnosis: Low back pain[ICD10: M54.5] Veronica Daigle MD, [facility] CPT- 4: 14408 09/05/2017 ([id number]) 69702 EST. PATIENT, LEVEL IV Diagnosis: Essential (primary) hypertension[ICD10: I10] Diagnosis: Generalized anxiety disorder[ICD10: F41.1] Diagnosis: Major depressive disorder, single episode, unspecified[ICD10: F32.9] Diagnosis: Localized edema[ICD10: R60.0] Veronica Daigle MD, [facility] CPT- 4: 55794 05/09/2017 ([id number]) 63683 EST. PATIENT, LEVEL IV Diagnosis: Essential (primary) hypertension[ICD10: I10] Diagnosis: Paroxysmal atrial fibrillation[ICD10: I48.0] Diagnosis: Generalized anxiety disorder[ICD10: F41.1] Diagnosis: Localized edema[ICD10: R60.0] Veronica Daigle MD, [facility] CPT- 4: 63019 03/07/2017 ([id number]) 95597 EST. PATIENT, LEVEL IV Diagnosis: Generalized anxiety disorder[ICD10: F41.1] Diagnosis: Major depressive disorder, single episode, unspecified[ICD10: F32.9] Diagnosis: Essential (primary) hypertension[ICD10: I10] Diagnosis: Paroxysmal atrial fibrillation[ICD10: I48.0] Merle Daigle MD, [facility] CPT-4: 78137 01/24/2017 04757 EST. PATIENT, LEVEL IV Diagnosis: Other chest pain[ICD10: R07.89] Diagnosis: Other malaise[ICD10: R53.81] Opal Daigle MD, [facility] CPT-4 : 59319 09/29/2016 ([id number]) 87815 EST. PATIENT, LEVEL IV Diagnosis: Essential (primary) hypertension[ICD10: I10] Diagnosis: Paroxysmal atrial fibrillation[ICD10: I48.0] Diagnosis: Localized edema[ICD10: R60.0] Diagnosis: Generalized anxiety disorder[ICD10: F41.1] Diagnosis: Low back pain[ICD10: M54.5] Merle Daigle MD, [facility] CPT-4: 43383 09/13/2016 ([id number]) 99166 EST. PATIENT, LEVEL III Diagnosis: Essential (primary) hypertension[ICD10: I10] Diagnosis: Paroxysmal atrial fibrillation[ICD10: I48.0] Merle Daigle MD, [facility] CPT-4: 42017 05/31/2016 ([id number]) 75156 EST. PATIENT, LEVEL III Diagnosis: Essential (primary) hypertension[ICD10: I10] Diagnosis: Localized edema[ICD10: R60.0] Merle Daigle MD, [facility] CPT-4: 06187 05/10/2016 ([id number]) 75597 EST. PATIENT, LEVEL IV Diagnosis: Paroxysmal atrial fibrillation[ICD10: I48.0] Diagnosis: Essential (primary) hypertension[ICD10: I10] Diagnosis: Generalized anxiety disorder[ICD10: F41.1] Merle Daigle MD, [facility] CPT-4: 71706 04/25/2016 ([id number]) 77616 EST. PATIENT, LEVEL IV Diagnosis: Generalized anxiety disorder[ICD10: F41.1] Diagnosis: Essential (primary) hypertension[ICD10: I10] Diagnosis: Paroxysmal atrial fibrillation[ICD10: I48.0] Diagnosis: Localized edema[ICD10: R60.0] Diagnosis: Acute recurrent maxillary sinusitis[ICD10: J01.01] Merle Daigle MD, [facility] CPT-4: 41294 01/14/2016 ([id number]) 87975 EST. PATIENT, LEVEL IV Diagnosis: Essential (primary) hypertension[ICD10: I10] Diagnosis: Generalized anxiety disorder[ICD10: F41.1] Diagnosis: Localized edema[ICD10: R60.0] Diagnosis: Encounter for immunization[ICD10: Z23] Merle Daigle MD, [facility] CPT-4: 02234 12/10/2015 ([id number]) 92947 EST. PATIENT, LEVEL III Diagnosis: Essential (primary) hypertension[ICD10: I10] Diagnosis: Localized edema[ICD10: R60.0] Merle Daigle MD, [facility] CPT-4: 94322 11/12/2015 ([id number]) 37105 EST. PATIENT, LEVEL III Diagnosis: Essential (primary) hypertension[ICD10: I10] Diagnosis: Localized edema[ICD10: R60.0] Merle Daigle MD, [facility] CPT-4: 66767 10/08/2015 ([id number]) 46845 EST. PATIENT, LEVEL III Diagnosis: Localized edema[ICD10: R60.0] Diagnosis: Essential (primary) hypertension[ICD10: I10] Merle Daigle MD, [facility] CPT-4: 33050 09/29/2015 ([id number]) 21206 EST. PATIENT, LEVEL IV Diagnosis: Localized edema[ICD10: R60.0] Diagnosis: Essential (primary) hypertension[ICD10: I10] Diagnosis: Paroxysmal atrial fibrillation[ICD10: I48.0] Merle Daigle MD, [facility] CPT-4: 38991 09/22/2015 ([id number]) 42958 EST. PATIENT, LEVEL III Diagnosis: Essential (primary) hypertension[ICD10: I10] Diagnosis: Paroxysmal atrial fibrillation[ICD10: I48.0] Merle Daigle MD, [facility] CPT-4: 97293 07/21/2015 ([id number]) 39187 EST. 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 PATIENT, LEVEL IV Diagnosis: Essential (primary) hypertension[ICD10: I10] Diagnosis: Paroxysmal atrial fibrillation[ICD10: I48.0] Diagnosis: Localized edema[ICD10: R60.0] Diagnosis: Encounter for therapeutic drug level monitoring[ICD10: Z51.81] Merle Daigle MD, [facility] CPT-4: 82931 06/02/2015 ([id number]) 99174 EST. 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 PATIENT, LEVEL III Diagnosis: Essential (primary) hypertension[ICD10: I10] Diagnosis: Allergic rhinitis due to pollen[ICD10: J30.1] Merle Daigle MD, [facility] CPT-4: 06113 01/30/2015 [id number] EST. PATIENT, LEVEL III Diagnosis: Localized edema[ICD10: R60.0] Diagnosis: Diarrhea, unspecified[ICD10: R19.7] Veronica Daigle MD, [facility] CPT-4: 30076 12/22/2014 [id number]) 11922 EST. PATIENT, LEVEL IV Diagnosis: DYSPHAGIA, PHARYNGEAL[ICD9: 787.23] Diagnosis: Low back pain[ICD9: 724.2] Diagnosis: Cough[ICD9: 786.2] Diagnosis: Anticoagulated on Coumadin[ICD9: V58.83] Diagnosis: MUSCLE WEAKNESS-GENERAL[ICD9: 728.87] Diagnosis: EDEMA[ICD9: 782.3] Veronica Daigle MD, [facility] CPT-4: 42143 10/29/2014 ([id number]) 37755 EST. PATIENT, LEVEL IV Diagnosis: Low back pain[ICD9: 724.2] Diagnosis: Pneumonia[ICD9: 486] Diagnosis: Cough[ICD9: 786.2] Diagnosis: Anticoagulated on Coumadin[ICD9: V58.83] Diagnosis: DYSPHAGIA, NOS[ICD9: 787.20] Diagnosis: MUSCLE WEAKNESS-GENERAL[ICD9: 728.87] Merle Daigle MD, [facility] CPT-4: 86267 10/14/2014 [id number]) 23836 EST. PATIENT, LEVEL IV Diagnosis: ESSENTIAL HYPERTENSION[ICD9: 401.9] Diagnosis: ESOPHAGEAL REFLUX[ICD9: 530.81] Diagnosis: SLEEP RELATED LEG CRAMPS[ICD9: 327.52] Diagnosis: Atrial fibrillation[ICD9: 427.31] Diagnosis: Anticoagulated on Coumadin[ICD9: V58.83] Diagnosis: VITAMIN D DEFICIENCY[ICD9: 268.9] Merle Daigle MD, [facility] CPT-4: 87751 09/19/2014 [id number]) 90044 EST. PATIENT, LEVEL III Diagnosis: EDEMA[ICD9: 782.3] Diagnosis: LONG-TERM USE ANTICOAGUL[ICD9: V58.61] Merle Daigle MD, [facility] CPT-4: 11496 08/22/2014 [id number]) 44945 EST. PATIENT, LEVEL IV Diagnosis: Skin irritation[ICD9: 709.9] Diagnosis: ESSENTIAL HYPERTENSION[ICD9: 401.9] Diagnosis: Anticoagulated on Coumadin[ICD9: V58.83] Diagnosis: DEPRESSIVE DISORDER NEC[ICD9: 311] Yumiko Dickinson [facility] CPT-4: 48818 08/04/2014 ([id number]) 23033 EST. PATIENT, LEVEL III Diagnosis: Skin irritation[ICD9: 709.9] [facility] CPT- 4: 28659 07/24/2014 ([id number]) OFFICE/OUTPATIENT VISIT NEW Diagnosis: ESSENTIAL HYPERTENSION[ICD9: 401.9] Diagnosis: COUGH[ICD9: 786.2] Diagnosis: Atrial fibrillation[ICD9: 427.31] Diagnosis: LONG-TERM USE ANTICOAGUL[ICD9: V58.61] Diagnosis: DEPRESSIVE DISORDER NEC[ICD9: 311] [facility] CPT-4: 28472 07/15/2014 Plan of Care Planned Activity Notes [...] symptoms return 03/27/2018 Appointment: Merle Esparza WPtel: [address] [place], [place] [phone] (30 min) [facility] 03/27/2018 Patient Education: Patient Medication Summary [...] understands the consequences of over-medication. 03/15/2018 Appointment: Isaias Merle WPtel: [phone] [phone] [place] (30 min) Complex 03/15/2018 Patient Education: Patient Medication Summary Completed 03/15/2018 Patient Education: Hypertension Completed 03/15/2018 Patient Education: Back Pain Completed 03/15/2018 Appointment: Veronica Daigle WPtel: [phone] [phone] (15 min) Moderate 02/01/2018 Appointment: Veronica Daigle WPtel: [phone] [facility] (15 min) Moderate 01/16/2018 Visit Plan: Hypertension [...] [facility] the [facility] She wants to stay in her home, however she is in need of more care in her home, which she cannot afford to pay for at this time. 12/12/2017 Appointment: Veronica Daigle WPtel: [phone] [facility] [place] (15 min) Moderate 12/12/2017 Patient Education: [...] had her pain medication stolen by a care management specialist through home health - i have given pt a script for 50 pills to get her through for when she can get her next RX for her pain medication. 09/05/2017 Appointment: Veronica Daigle WPtel: [phone] [phone] (15 min) Moderate 09/05/2017 Patient Education: Patient [...] current medications. 05/09/2017 Appointment: Veronica Daigle WPtel: [phone] [phone] (15 min) Moderate 05/09/2017 Patient Education: Patient [...] current medications. 03/07/2017 Appointment: Veronica Daigle WPtel: [phone] [facility] (15 min) Moderate 03/07/2017 Patient Education: Patient [...] becoming uncontrolled. 01/24/2017 Appointment: [phone] [place] (30 min) Complex 01/24/2017 Patient Education: [...] or concerns. 09/29/2016 Appointment: Opal Boyle WPtel: [phone] [facility] [place] (15 min) Moderate 09/29/2016 Appointment: Opal Boyle WPtel: [phone] [facility] [place] (15 min) Moderate 09/29/2016 Patient Education: [...] current medications. 09/13/2016 Appointment: Merle Esparza WPtel: [address] [place], [place] [phone] (30 min) Complex 09/13/2016 Patient Education: Patient [...] becoming uncontrolled. 05/31/2016 Appointment: Merle Esparza WPtel: [phone] (30 min) Complex 05/31/2016 Patient Education: Patient [...] LABS TODAY 05/10/2016 Appointment: Merle Esparza WPtel: [facility] [place] [address] (30 min) Complex 05/10/2016 Patient Education: Patient Medication Summary Completed 05/10/2016 Patient Education: Hypertension Completed 05/10/2016 Appointment: Merle Esparza WPtel: [phone] [facility] [place] [address] (15 min) Moderate 05/09/2016 Visit Plan: Afib-not [...] current medications. 04/25/2016 Appointment: Merle Esparza WPtel: [phone] (30 min) Complex 04/25/2016 Patient Education: Patient Medication Summary Completed 04/25/2016 Patient Education: Hypertension Completed 04/25/2016 Appointment: Merle Esparza WPtel: [phone] (15 min) Moderate 02/12/2016 Visit Plan: Hypertension [...] becoming uncontrolled. 01/14/2016 Appointment: Merle Esparza WPtel: [address] [place], [place] [phone] [place] [address] (30 min) Complex 01/14/2016 Patient Education: Patient [...] peripheral edema. 12/10/2015 Appointment: Merle Esparza WPtel: [phone] (30 min) Complex 12/10/2015 Patient Education: Patient [...] peripheral edema. 11/12/2015 Appointment: Merle Esparza WPtel: [address] [place], [place] [phone] (15 min) Moderate 11/12/2015 Patient Education: Patient Medication Summary Completed 11/12/2015 Appointment: Merle Esparza WPtel: [address] [place], [place] [phone] (15 min) Moderate 10/22/2015 Visit Plan: Hypertension [...] peripheral edema. 10/08/2015 Appointment: Merle Esparza WPtel: [phone] [place] [address] (15 min) Moderate 10/08/2015 Patient Education: Patient [...] at home. 09/29/2015 Appointment: Merle Esparza WPtel: [phone] (15 min) Moderate 09/29/2015 Patient Education: [...] peripheral edema. 09/22/2015 Appointment: Merle Esparza WPtel: [phone] (30 min) Complex 09/22/2015 Patient Education: Patient [...] week- will restart anti coagulant if able Pylcy-ugbwuxkt-ma change in medications Anemia-received 1 unit blood last week-hgb repeated yesterday and has increased from 9.5 to 9.8-continue to monitor 06/23/2015 Appointment: Merle Esparza WPtel: [phone] [phone] (30 min) Complex 06/23/2015 Patient Education: [...] Completed 01/30/2015 App[facility]ment: [phone] ([facility] min) Complex 01/28/2015 Appointment: (30 [...] home. 12/22/2014 Appointment: [phone] (30 min) Complex 12/22/2014 Patient Education: Patient [...] Care Plan: COMPLETE CBC AUTOMATED LOINC : 78072-4 Ordered 08/22/2014 Visit Plan: Itching/Skin irritation- Resolved. [...] needed. 07/24/2014 Appointment: Yumiko Dickinson [facility]el[phone] [place] (10 min) Simple 07/24/2014 Patient Education: [...] - she has refused to see a molecular biology scientist and reports to me that she will not go to the hospital and will not have the recommended testing. She states that she does not have any family left, and is not willing to have any further testing/treatment. Labs to be checked today for coumadin levels to be further adjusted. 07/15/2014 Appointment: [facility]el[phone] [place] ([place] New Patient 07/15/2014 Patient Education: Patient Medication Summary Completed 07/15/2014 Patient Education: Hypertension Completed 07/15/2014 Instructions Comment OK TO GO BACK TO DAILY ON [...] to further attempt to reduce peripheral edema. START METOPROLOL 12.5MG TWICE DAILY (YOU WILL [...] - she has refused to see a molecular biology scientist and reports to me that she will [...] afford to pay for at this time. Refill prescription of Lasix 40 mg daily. [...] to further attempt to reduce peripheral edema. Mofvbpmfv-teipmwvwb-igmely all of abx Atrial Fibrillation - pt [...] had her pain medication stolen by a care management specialist through home health - i have given pt a script for 50 pills to get her through for when she can get her next RX for her pain medication. TAKE AN EXTRA LASIX AND POASSIUM PILL [...] for INR is between 2.0 and 3.5. make sure you are taking omeprazole twice [...] and understands the consequences of over-medication. . Hypertension - well controlled - continue with current medications, continue with no added salt diet. Pt has been encouraged to exercise daily. The pt has been advised to call the office if there are any acute concerns about change in blood pressure readings at home. Edema-fairly well controlled-no changes today Abdominal pain -diarrhea- resolved -finish all of abx -call if symptoms return . Hypertension - well controlled - continue [...] if their heart rate is becoming uncontrolled. WE WILL CHECK YOUR PT/INR (WARFARIN LEVEL) [...] while on the antibiotics REFER TO HOME DONVLB-Faojhqp-jydcv PT/INR on , PT SWALLOW STUDY DX dysphagia Shun (neighbor) [phone] . Pneumonia - Pt has been diagnosed [...] while on the antibiotics REFER TO HOME NCPIXE-Tmkrgbj-uynqr PT/INR on , PT SWALLOW STUDY DX dysphagia Shun (neighbor) [phone] . Pneumonia - Pt has been diagnosed [...] change in blood pressure readings at home. Have your blood drawn in 2 weeks [...] to "keep everything on the same schedule." take an extra lasix and potassium at [...] situational exposure. No change in current medications. INCREASE YOUR OMEPRAZOLE TO TWICE DAILY . [...] a study on a Monday if possible. . Chronic Depression and anxiety - the [...] for INR is between 2.0 and 3.5. INCREASE LASIX 40MG TO TWICE DAILY X [...] next week-will restart anti coagulant if able Gftpk-ichzxlcq-ww change in medications Anemia-received 1 unit blood last week-hgb repeated yesterday and has increased from 9.5 to 9.8-continue to monitor
--- OUTSIDE RECORDS SUMMARY | 2018-04-18 23:30 | XMS REPORT | CCD ---
Author Author [facility] Organization [facility] Address [address] [place] [address] Phone Care Team Providers Care Rolfer Name Role Phone PP Unavailable CCM Unavailable Summary Purpose Interface Exchange Insurance Providers Payer name Policy type / Coverage type Covered republican ID Effective Begin Date Effective End Date WPS Medicare Part B Medicare Part B [id number] Unknown Family history Mother Diagnosis Age At Onset Hypertension Unknown Heart Attack Unknown Social History Social History Element Codes Description Effective Dates Marital status Unknown 07/15/2014 Marital status Unknown 07/15/2014 Number of children Unknown 0 07/15/2014 Number of children Unknown 0 07/15/2014 Employment Unknown Retired 07/15/2014 Employment Unknown Retired 07/15/[address]: 406164160 Has never smoked or chewed tobacco 07/15/[address]: 854945880 Has never smoked or chewed tobacco 07/15/[address]: 698393750 Never drinks alcohol 07/15/[address]: 496314523 Never drinks alcohol 07/15/2014 Allergies, Adverse Reactions, [...] ICD-9: 724.2 ICD-10: M54.5 Active 09/13/2016 Unknown [employer] (current) use of anticoagulants ICD-9: V58.61 ICD-10: [...] pain ICD-9: 724.2 ICD-10: M54.5 09/13/2016 Active [employer] (current) use of anticoagulants ICD-9: V58.61 ICD-10: [...] Start Date Stop Date Status Fill Instructions buspirone 10 mg tablet RxNorm: 663550 TAKE ONE TABLET BY MOUTH THREE TIMES A DAY 03/21/2018 07/18/2018 Active hydrocodone 7.5 mg-acetaminophen 325 mg tablet RxNorm: 731338 1 Tablet(s) PO daily as needed pain 03/15/20182018 Active Flagyl 500 mg tablet RxNorm: 291699 1 Tablet(s) PO TID 201803/24/2018 Inactive potassium chloride ER 10 mEq tablet,extended release RxNorm: 713705 TAKE TWO TABLETS BY MOUTH THREE TIMES A DAY 02/28/2018 07/27/2018 Active hydrocodone 7.5 mg-acetaminophen 325 mg tablet RxNorm: 911413 1 Tablet(s) PO daily as needed pain 02/01/20182018 Inactive Xanax 0.25 mg tablet RxNorm: 041884 1 Tablet(s) PO TID as needed anxiety 01/01/2018 01/20/2018 Inactive hydrocodone 7.5 mg-acetaminophen 325 mg tablet RxNorm: 586746 1 Tablet(s) PO daily as needed pain 12/12/20172017 Inactive cyanocobalamin (vit B-12) 1,000 mcg/mL injection solution RxNorm: 525552 INJECT 1 ML INTRAMUSCULARLY 2 TIMES A MONTH FOR 2 MONTHS, THEN ONCE A MONTH THEREAFTER 11/28/2017 01/22/2018 Inactive hydrocodone 7.5 mg-acetaminophen 325 mg tablet RxNorm: 849800 1-2 Tablet(s) PO Q4- 6H as needed pain 11/21/2017 12/11/2017 Inactive Lasix 40 mg tablet RxNorm: 948606 TAKE ONE TABLET BY MOUTH DAILY 10/23/2017 04/20/2018 Active Lexapro 5 mg tablet RxNorm: 645071 TAKE ONE TABLET BY MOUTH EVERY EVENING 10/23/2017 12/21/2017 Inactive buspirone 10 mg tablet RxNorm: 690596 TAKE ONE TABLET BY MOUTH THREE TIMES A DAY 10/02/2017 02/28/2018 Inactive omeprazole 20 mg capsule,delayed release RxNorm: 382231 TAKE ONE CAPSULE BY MOUTH TWICE A DAY 09/13/2017 03/11/2018 Inactive Levaquin 750 mg tablet RxNorm: 899775 1 tab every other day for 5 doses 1 Tablet(s ) PO 08/29/2017 08/28/2017 Inactive Levaquin 750 mg tablet RxNorm: 224332 1 tab every other day for 5 doses 1 Tablet(s ) PO 08/29/2017 09/02/2017 Inactive hydrocodone 7.5 mg-acetaminophen 325 mg tablet RxNorm: 122686 1-2 Tablet(s) PO Q4- 6H as needed pain 08/28/2017 09/26/2017 Inactive potassium chloride ER 10 mEq tablet,extended release RxNorm: 995765 TAKE TWO TABLETS BY MOUTH THREE TIMES A DAY 08/28/2017 12/25/2017 Inactive metoprolol tartrate 25 mg tablet RxNorm: 491451 TAKE 1/2 TABLET BY MOUTH TWO TIMES A DAY 07/25/2017 07/19/2018 Active Lexapro 5 mg tablet RxNorm: 488384 TAKE ONE TABLET BY MOUTH EVERY EVENING 07/21/2017 10/18/2017 Inactive hydrocodone 7.5 mg-acetaminophen 325 mg tablet RxNorm: 492434 1-2 Tablet(s) PO Q4- 6H as needed pain 07/19/2017 08/17/2017 Inactive hydrocodone 7.5 mg-acetaminophen 325 mg tablet RxNorm: 607807 1-2 Tablet(s) PO Q4- 6H as needed pain 07/03/2017 07/18/2017 Inactive hydrocodone 7.5 mg-acetaminophen 325 mg tablet RxNorm: 095918 1-2 Tablet(s) PO Q4- 6H as needed pain 05/25/2017 06/23/2017 Inactive cyanocobalamin (vit B-12) 1,000 mcg/mL injection solution RxNorm: 478241 INJECT 1 ML INTRAMUSCULARLY 2 TIMES A MONTH FOR 2 MONTHS, THEN ONCE A MONTH THEREAFTER 05/19/2017 08/10/2017 Inactive warfarin 5 mg tablet RxNorm: 841842 TAKE ONE TABLET BY MOUTH DAILY 04/26/2017 04/20/2018 Active buspirone 10 mg tablet RxNorm: 260097 TAKE ONE TABLET BY MOUTH THREE TIMES A DAY 04/26/2017 09/22/2017 Inactive Xanax 0.25 mg tablet RxNorm: 652884 1 Tablet(s) PO TID as needed anxiety 04/17/2017 05/14/2017 Inactive Levaquin 500 mg tablet RxNorm: 185787 1 Tablet(s) PO Q72H x3 doses 04/11/2017 04/10/2017 Inactive Levaquin 500 mg tablet RxNorm: 839845 1 Tablet(s) PO Q72H x3 doses 04/11/2017 07/03/2017 Inactive potassium chloride ER 10 mEq tablet,extended release RxNorm: 069590 TAKE TWO TABLETS BY MOUTH THREE TIMES A DAY 03/27/2017 08/23/2017 Inactive Tamiflu 75 mg capsule RxNorm: 530731 1 Capsule(s) PO BID 201707/03/2017 Inactive Zofran 4 mg tablet RxNorm: 126811 1 Tablet(s) PO QID as needed nausea 03/23/2017 06/20/2017 Inactive Zofran 4 mg tablet RxNorm: 117066 1 Tablet(s) PO QID as needed nausea 03/23/2017 03/22/2017 Inactive Tamiflu 75 mg capsule RxNorm: 688872 1 Capsule(s) PO BID 201703/22/2017 Inactive lisinopril 10 mg tablet RxNorm: 639959 TAKE ONE-HALF TABLET BY MOUTH DAILY 03/10/2017 06/02/2018 Active metolazone 5 mg tablet RxNorm: 351009 1 Tablet(s) PO TIW 201703/01/2018 Inactive hydrocodone 7.5 mg-acetaminophen 325 mg tablet RxNorm: 859663 1-2 Tablet(s) PO Q4- 6H as needed pain 02/23/2017 05/24/2017 Inactive omeprazole 20 mg capsule,delayed release RxNorm: 033798 Capsule(s) TAKE ONE CAPSULE BY MOUTH TWICE A DAY 02/08/2017 Inactive metolazone 5 mg tablet RxNorm: 214775 TAKE 1 TABLET BY MOUTH TWICE WEEKLY 02/08/2017 03/06/2017 Inactive Lexapro 5 mg tablet RxNorm: 988481 1 Tablet(s) PO QPM 201603/06/2017 Inactive hydrocodone 7.5 mg-acetaminophen 325 mg tablet RxNorm: 379001 1-2 Tablet(s) PO Q4- 6H as needed pain 01/16/2017 02/22/2017 Inactive Lasix 40 mg tablet RxNorm: 907371 TAKE ONE TABLET BY MOUTH DAILY 01/11/2017 10/07/2017 Inactive metoprolol tartrate 25 mg tablet RxNorm: 070584 TAKE 1/2 TABLET BY MOUTH TWO TIMES A DAY 01/11/2017 07/09/2017 Inactive allopurinol 300 mg tablet RxNorm: 542260 TAKE ONE TABLET BY MOUTH DAILY 01/09/2017 06/07/2017 Inactive hydrocodone 7.5 mg-acetaminophen 325 mg tablet RxNorm: 307863 1-2 Tablet(s) PO Q4- 6H as needed pain 12/06/2016 01/15/2017 Inactive lisinopril 10 mg tablet RxNorm: 488458 TAKE ONE-HALF TABLET BY MOUTH DAILY 12/02/2016 03/09/2017 Inactive buspirone 10 mg tablet RxNorm: 694383 TAKE ONE TABLET BY MOUTH THREE TIMES A DAY 10/25/2016 01/22/2017 Inactive buspirone 10 mg tablet RxNorm: 645483 TAKE ONE TABLET BY MOUTH THREE TIMES A DAY 10/25/2016 10/24/2016 Inactive hydrocodone 7.5 mg-acetaminophen 325 mg tablet RxNorm: 890702 1-2 or 2 Tablet(s) PO Q4-6H as needed pain 10/25/20162016 Inactive cyanocobalamin (vit B-12) 1,000 mcg/mL injection solution RxNorm: 646132 INJECT 1 ML INTRAMUSCULARLY 2 TIMES A MONTH FOR 2 MONTHS, THEN ONCE A MONTH THEREAFTER 10/24/2016 02/12/2017 Inactive metolazone 5 mg tablet RxNorm: 813793 TAKE 1 TABLET BY MOUTH TWICE WEEKLY 09/23/2016 01/12/2017 Inactive hydrocodone 7.5 mg-acetaminophen 325 mg tablet RxNorm: 702399 1-2 or 2 Tablet(s) PO Q4-6H as needed pain 09/13/20162016 Inactive Keflex 500 mg capsule RxNorm: 750933 1 Capsule(s) PO TID 201609/15/2016 Inactive Take with a probiotic BID Keflex 500 mg capsule RxNorm: 458245 1 Capsule(s) PO TID 201609/08/2016 Inactive Take with a probiotic BID metoprolol tartrate 25 mg tablet RxNorm: 026982 TAKE 1/2 TABLET BY MOUTH TWO TIMES A DAY 09/07/2016 01/04/2017 Inactive potassium chloride ER 10 mEq tablet,extended release RxNorm: 866195 TAKE TWO TABLETS BY MOUTH THREE TIMES A DAY 09/01/2016 02/27/2017 Inactive hydrocodone 7.5 mg-acetaminophen 325 mg tablet RxNorm: 571671 1 or 2 Tablet(s) PO Q4-6H as needed pain 08/31/20162016 Inactive omeprazole 20 mg capsule,delayed release RxNorm: 679008 TAKE ONE CAPSULE BY MOUTH TWICE A DAY 08/24/2016 02/07/2017 Inactive hydrocodone 7.5 mg-acetaminophen 325 mg tablet RxNorm: 203188 1 or 2 Tablet(s) PO Q4-6H as needed pain 08/05/20162016 Inactive lisinopril 10 mg tablet RxNorm: 456632 TAKE ONE-HALF TABLET BY MOUTH DAILY 07/28/2016 12/01/2016 Inactive hydrocodone 7.5 mg-acetaminophen 325 mg tablet RxNorm: 853046 1 or 2 Tablet(s) PO Q4-6H as needed pain 07/05/20162016 Inactive allopurinol 300 mg tablet RxNorm: 352729 TAKE ONE TABLET BY MOUTH DAILY 06/16/2016 12/12/2016 Inactive metoprolol tartrate 25 mg tablet RxNorm: 261213 TAKE 1/2 TABLET BY MOUTH TWO TIMES A DAY 06/16/2016 08/14/2016 Inactive buspirone 10 mg tablet RxNorm: 897495 TAKE ONE TABLET BY MOUTH THREE TIMES A DAY 06/15/2016 10/12/2016 Inactive hydrocodone 7.5 mg-acetaminophen 325 mg tablet RxNorm: 498338 1 or 2 Tablet(s) PO Q4-6H as needed pain 06/07/20162016 Inactive metoprolol tartrate 25 mg tablet RxNorm: 358912 1/2 Tablet(s) PO QPM 05/10/2016 06/08/2016 Inactive lisinopril 10 mg tablet RxNorm: 853783 1/2 Tablet(s) PO daily 04/26/2016 07/27/2016 Inactive hydrocodone 7.5 mg-acetaminophen 325 mg tablet RxNorm: 900587 1 or 2 Tablet(s) PO Q4-6H as needed pain 04/25/20162016 Inactive lisinopril 10 mg tablet RxNorm: 499031 1/2 Tablet(s) PO daily 04/25/2016 04/25/2016 Inactive metoprolol tartrate 25 mg tablet RxNorm: 352123 1/2 Tablet(s) PO BID 04/25/2016 05/09/2016 Inactive allopurinol 300 mg tablet RxNorm: 674486 TAKE ONE TABLET BY MOUTH DAILY 04/19/2016 06/15/2016 Inactive metolazone 5 mg tablet RxNorm: 645752 TAKE 1 TABLET BY MOUTH TWICE WEEKLY 04/19/2016 09/05/2016 Inactive potassium chloride ER 10 mEq tablet,extended release RxNorm: 225624 2 Tablet(s) PO TID 03/21/2016 08/17/2016 Inactive warfarin 5 mg tablet RxNorm: 983859 1 Tablet(s) PO daily TAKE ONE TABLET BY MOUTH DAILY 03/21/2016 03/15/[address] Echevarria manages potassium chloride ER 10 mEq tablet,extended release(part/ cryst) RxNorm: 5603556 2 Tablet(s) PO TID 03/11/2016 03/20/2016 Inactive Xanax 0.25 mg tablet RxNorm: 553899 1 Tablet(s) PO TID as needed anxiety 03/10/2016 04/06/2016 Inactive Xanax 0.25 mg tablet RxNorm: 793698 1 Tablet(s) PO TID as needed anxiety 03/10/2016 12/31/2017 Inactive hydrocodone 7.5 mg-acetaminophen 325 mg tablet RxNorm: 753269 1 or 2 Tablet(s) PO Q4-6H as needed pain 02/26/20162016 Inactive Flonase Allergy Relief 50 mcg/actuation nasal spray, suspension RxNorm: 0757282 1 [place] NASAL each nare daily 01/19/2016 03/18/2016 Inactive cefdinir 300 mg capsule RxNorm: 329695 1 Capsule(s) PO BID 01/23/2016 Inactive take probiotic BID x 7 days Flonase Allergy Relief 50 mcg/actuation nasal spray, suspension RxNorm: 9537717 1 [place] NASAL each nare daily 01/19/2016 01/18/2016 Inactive allopurinol 300 mg tablet RxNorm: 069120 TAKE ONE TABLET BY MOUTH DAILY 01/18/2016 04/16/2016 Inactive Lasix 40 mg tablet RxNorm: 460254 1 Tablet(s) PO daily 201501/07/2017 Inactive (this was only twice daily x1 week) now it's daily cefdinir 300 mg capsule RxNorm: 906500 1 Capsule(s) PO BID 01/17/2016 Inactive take probiotic BID x 7 days cefdinir 300 mg capsule RxNorm: 046180 1 Capsule(s) PO BID 01/10/2016 Inactive buspirone 10 mg tablet RxNorm: 349760 TAKE ONE TABLET BY MOUTH THREE TIMES A DAY 01/11/2016 06/08/2016 Inactive hydrocodone 7.5 mg-acetaminophen 325 mg tablet RxNorm: 706644 1 or 2 Tablet(s) PO Q4-6H as needed pain 12/28/20152015 Inactive potassium chloride ER 10 mEq tablet,extended release(part/ cryst) RxNorm: 8258893 2 po TID x 2 days then 2 po BID Tablet(s) 12/28/2015 03/10/2016 Inactive potassium chloride ER 10 mEq tablet,extended release(part/ cryst) RxNorm: 8493954 TAKE ONE TABLET BY MOUTH TWICE A DAY FOR 1 WEEK THEN RETURN TO DAILY 12/28/2015 12/27/2015 Inactive meclizine 25 mg tablet RxNorm: 493398 1 Tablet(s) PO BID PRN No Stop Date Active potassium chloride ER 10 mEq tablet,extended release(part/ cryst) RxNorm: 0110208 1 Tablet(s) PO TID 12/08/2015 03/10/2016 Inactive potassium chloride ER 10 mEq tablet,extended release(part/ cryst) RxNorm: 0442354 2 Tablet(s) PO daily 11/26/20152015 Inactive cyanocobalamin (vit B-12) 1,000 mcg/mL injection solution RxNorm: 033850 INJECT 1 ML INTRAMUSCULARLY 2 TIMES A MONTH FOR 2 MONTHS, THEN ONCE A MONTH THEREAFTER 11/26/2015 04/23/2016 Inactive potassium chloride ER 10 mEq tablet,extended release(part/ cryst) RxNorm: 0833731 3 Tablet(s) PO daily 11/23/20152015 Inactive Lasix 40 mg tablet RxNorm: 706268 1 Tablet(s) PO daily 201501/13/2016 Inactive (this was only twice daily x1 week) now it's daily metolazone 5 mg tablet RxNorm: 303882 1 Tablet(s) BIW TAKE ONE TABLET BY MOUTH DAILY 11/12/2015 04/18/2016 Inactive hydrocodone 7.5 mg-acetaminophen 325 mg tablet RxNorm: 436499 1 or 2 Tablet(s) PO Q4-6H as needed pain 11/12/20152015 Inactive Lasix 40 mg tablet RxNorm: 392243 1 Tablet(s) PO daily 201511/11/2015 Inactive (this was only twice daily x1 week) now it's daily metolazone 5 mg tablet RxNorm: 767168 Tablet(s) TAKE ONE TABLET BY MOUTH DAILY 10/22/2015 10/29/2015 Inactive potassium chloride ER 10 mEq tablet,extended release(part/ cryst) RxNorm: 8454565 1 Tablet(s) PO daily 10/08/20152015 Inactive twice daily x 1 week then return to daily Lasix 40 mg tablet RxNorm: 370463 1 Tablet(s) PO daily 201511/09/2015 Inactive twice daily x 1 week then daily thereafter Keflex 500 mg capsule RxNorm: 411183 1 Capsule(s) PO TID 201510/02/2015 Inactive Keflex 500 mg capsule RxNorm: 898550 1 Capsule(s) PO TID 201509/22/2015 Inactive hydrocodone 7.5 mg-acetaminophen 325 mg tablet RxNorm: 579394 1 or 2 Tablet(s) PO Q4-6H as needed pain 09/22/20152015 Inactive potassium chloride ER 10 mEq tablet,extended release(part/ cryst) RxNorm: 2550451 1 Tablet(s) PO BID 09/22/2015 10/07/2015 Inactive twice daily x 1 week then return to daily Lasix 40 mg tablet RxNorm: 952625 1 Tablet(s) PO BID 201510/07/2015 Inactive twice daily x 1 week then daily thereafter allopurinol 300 mg tablet RxNorm: 297254 1 Tablet(s) PO daily 09/09/2015 01/06/2016 Inactive diltiazem 90 mg tablet RxNorm: 690783 Tablet(s) TAKE ONE TABLET BY MOUTH THREE TIMES A DAY 09/02/2015 01/28/2016 Inactive diltiazem 90 mg tablet RxNorm: 552128 TAKE ONE TABLET BY MOUTH THREE TIMES A DAY 08/31/2015 01/28/2016 Inactive diltiazem 90 mg tablet RxNorm: 028436 TAKE ONE TABLET BY MOUTH THREE TIMES A DAY 08/31/2015 09/01/2015 Inactive Xanax 0.25 mg tablet RxNorm: 741213 1 Tablet(s) PO TID as needed anxiety 08/28/2015 09/26/2015 Inactive Xanax 0.25 mg tablet RxNorm: 069765 1 Tablet(s) PO TID as needed anxiety 08/28/2015 08/27/2015 Inactive potassium chloride ER 10 mEq tablet,extended release(part/ cryst) RxNorm: 939940 TAKE ONE TABLET BY MOUTH DAILY 08/27/2015 2015 Inactive omeprazole 20 mg capsule,delayed release RxNorm: 934356 TAKE ONE CAPSULE BY MOUTH TWICE A DAY 08/16/2015 02/11/2016 Inactive omeprazole 20 mg capsule,delayed release RxNorm: 982144 TAKE ONE CAPSULE BY MOUTH TWICE A DAY 08/16/2015 08/15/2015 Inactive hydrocodone 7.5 mg-acetaminophen 325 mg tablet RxNorm: 862190 1 or 2 Tablet(s) PO Q4-6H as needed pain 08/11/20152015 Inactive omeprazole 20 mg capsule,delayed release RxNorm: 844128 Capsule(s) TAKE ONE CAPSULE BY MOUTH TWICE A DAY 08/03/2015 Inactive omeprazole 20 mg capsule,delayed release RxNorm: 165519 Capsule(s) TAKE ONE CAPSULE BY MOUTH TWICE A DAY 07/31/2015 Inactive buspirone 10 mg tablet RxNorm: 154185 TAKE ONE TABLET BY MOUTH THREE TIMES A DAY 07/13/2015 01/08/2016 Inactive metolazone 5 mg tablet RxNorm: 852000 TAKE ONE TABLET BY MOUTH DAILY 07/02/2015 07/09/2015 Inactive metolazone 5 mg tablet RxNorm: 951592 1 Tablet(s) PO daily 06/18/2015 Inactive metolazone 5 mg tablet RxNorm: 638349 1 Tablet(s) PO daily 06/14/2015 Inactive hydrocodone 7.5 mg-acetaminophen 325 mg tablet RxNorm: 896975 1or2 1 or 2 Tablet(s ) PO Q4-6H as needed pain 06/12/201507/10 Inactive warfarin 1 mg tablet RxNorm: 562944 1 Tablet(s) 04/15/2015 06/22/2015 Inactive take with 3mg to make 4mg on Mon and repeat in 1 week. hydrocodone 7.5 mg-acetaminophen 325 mg tablet RxNorm: 965283 1or2 or 2 Tablet(s) PO Q4-6H as needed pain 03/31/20152015 Inactive hydrocodone 7.5 mg-acetaminophen 325 mg tablet RxNorm: 549021 1or2 or 2 Tablet(s) PO Q4-6H as needed pain 03/25/20152015 Inactive warfarin 5 mg tablet RxNorm: 597701 1 Tablet(s) PO daily TAKE ONE TABLET BY MOUTH DAILY 03/05/2015 06/22/2015 Inactive Xarelto 20 mg tablet RxNorm: 7693000 1 Tablet(s) PO QPM 201503/04/2015 Inactive losartan 100 mg tablet RxNorm: 293436 1 Tablet(s) PO daily 05/201406/22/2015 Inactive [SAVINGS FOR NON-COVERED DRUGS -- BIN:[id number], PCN: ASPROD1, Group: XXXXX, ID# [id number], Questions: . THIS IS NOT INSURANCE.] Kenalog 40 mg/mL suspension for injection RxNorm: 0682330 1 Milliliter(s) Inj 01/30/2015 01/30/2015 Inactive hydrocodone 7.5 mg-acetaminophen 325 mg tablet RxNorm: 838753 1or2 or 2 Tablet(s) PO Q4-6H as needed pain 01/15/20152014 Inactive Lasix 40 mg tablet RxNorm: 615319 1 Tablet(s) PO daily 201409/21/2015 Inactive as needed for swelling-take potassium when you take lasix potassium chloride ER 10 mEq tablet,extended release(part/ cryst) RxNorm: 943992 2 Tablet(s) PO daily 01/06/2015 01/19/2015 Inactive Lasix 40 mg tablet RxNorm: 304614 1 Tablet(s) PO daily 201401/06/2015 Inactive Ok to fill 20mg, not 40mg as needed for swelling-take potassium when you take lasix potassium chloride ER 10 mEq tablet,extended release(part/ cryst) RxNorm: 684481 1 Tablet(s) PO BID 12/30/2014 01/05/2015 Inactive Vitamin D2 50,000 unit capsule RxNorm: 853507 TAKE 1 CAPSULE BY MOUTH ONCE WEEKLY FOR 12 WEEKS 12/30/2014 03/23/2015 Inactive potassium chloride ER 10 mEq tablet,extended release(part/ cryst) RxNorm: 101665 1 Tablet(s) PO daily 12/26/2014 12/29/2014 Inactive potassium chloride ER 10 mEq tablet,extended release(part/ cryst) RxNorm: 292765 1 Tablet(s) PO daily 12/26/2014 12/25/2014 Inactive omeprazole 20 mg capsule,delayed release RxNorm: 474251 TAKE ONE CAPSULE BY MOUTH TWICE A DAY 12/24/2014 07/21/2015 Inactive Flagyl 500 mg tablet RxNorm: 385938 1 Tablet(s) PO TID 201412/20/2014 Inactive Flagyl 500 mg tablet RxNorm: 683324 1 Tablet(s) PO TID 201412/10/2014 Inactive warfarin 3 mg tablet RxNorm: 422702 TAKE ONE TABLET BY MOUTH DAILY 11/13/2014 01/29/2015 Inactive warfarin 3 mg tablet RxNorm: 514133 TAKE ONE TABLET BY MOUTH DAILY 11/13/2014 01/29/2015 Inactive warfarin 3 mg tablet RxNorm: 725528 TAKE ONE TABLET BY MOUTH DAILY 11/13/2014 03/04/2015 Inactive warfarin 3 mg tablet RxNorm: 045487 1 Tablet(s) PO daily 201403/04/2015 Inactive allopurinol 300 mg tablet RxNorm: 958608 1 Tablet(s) PO daily 11/11/2014 03/10/2015 Inactive hydrocodone 7.5 mg-acetaminophen 325 mg tablet RxNorm: 579456 1or2 or 2 Tablet(s) PO Q4-6H as needed pain 11/10/20142014 Inactive hydrocodone 7.5 mg-acetaminophen 325 mg tablet RxNorm: 263762 1or2 or 2 Tablet(s) PO Q4-6H as needed pain 10/15/20142014 Inactive hydrocodone 7.5 mg-acetaminophen 325 mg tablet RxNorm: 483489 1or2 or 2 Tablet(s) PO Q4-6H as needed pain 10/15/20142014 Inactive Kenalog 40 mg/mL suspension for injection RxNorm: 5002426 Milliliter(s) Inj 10/14/2014 10/14/2014 Inactive ceftriaxone 500 mg solution for injection RxNorm: 9163030 Inj 10/14/2014 10/14/2014 Inactive Zithromax Z-Chito 250 mg tablet RxNorm: 513973 1 Tablet(s) PO UD 10/14/2014 01/29/2015 Inactive zpack cefdinir 300 mg capsule RxNorm: 432686 1 Capsule(s) PO BID 10/20/2014 Inactive Vitamin D2 50,000 unit capsule RxNorm: 967804 1 Capsule(s) PO weekly x 12 weeks 09/24/2014 09/23/2014 Inactive Vitamin D2 50,000 unit capsule RxNorm: 063281 1 Capsule(s) PO weekly x 12 weeks 09/24/2014 12/22/2014 Inactive warfarin 1 mg tablet RxNorm: 626883 TAKE 1/2 TABLET BY MOUTH DAILY WITH 3MG TABLET TO EQUAL 3.5MG DAILY 09/22/201404/2014 Inactive warfarin 1 mg tablet RxNorm: 959191 1/2 Tablet(s) PO daily 3.5mg 08/26/2014 2014 Inactive taking with a 3mg to make 3.5mg tablets Lasix 20 mg tablet RxNorm: 431215 1 Tablet(s) PO QDAY PRN 09/24/2014 Inactive Ok to fill 20mg, not 40mg as needed for swelling-take potassium when you take lasix buspirone 10 mg tablet RxNorm: 652789 1 Tablet(s) PO TID 201411/25/2014 Inactive takes it BID but if she feels anxious she takes one during the day Lasix 20 mg tablet RxNorm: 877771 1 Tablet(s) PO QDAY PRN 08/25/2014 Inactive as needed for swelling-take potassium when you take lasix warfarin 1 mg tablet RxNorm: 964474 1/2 Tablet(s) PO daily 3.5mg 08/15/2014 08/21/2014 Inactive taking with a 3mg to make 3.5mg tablets warfarin 3 mg tablet RxNorm: 359547 1 Tablet(s) PO daily 201410/11/2014 Inactive diltiazem 90 mg tablet RxNorm: 070718 1 Tablet(s) PO TID 201408/30/2015 Inactive warfarin 1 mg tablet RxNorm: 473667 1/2 Tablet(s) PO daily 3.5mg 08/05/2014 08/11/2014 Inactive taking with a 3mg to make 3.5mg tablets cyclobenzaprine 10 mg tablet RxNorm: 923542 1 Tablet(s) PO QHS 08/04/2014 11/01/2014 Inactive buspirone 10 mg tablet RxNorm: 501614 1 Tablet(s) PO QID 201408/21/2014 Inactive allopurinol 300 mg tablet RxNorm: 476402 1 Tablet(s) PO daily 08/04/2014 11/01/2014 Inactive clonazepam 0.5 mg tablet RxNorm: 654154 1 Tablet(s) PO daily 09/02/2014 Inactive omeprazole 20 mg capsule,delayed release RxNorm: 229940 1 Capsule(s) PO BID 08/04/2014 11/01/2014 Inactive atenolol 25 mg tablet RxNorm: 100251 1 Tablet(s) PO daily 201411/01/2014 Inactive warfarin 3 mg tablet RxNorm: 008769 1 Tablet(s) PO daily 201408/04/2014 Inactive diphenhydramine 2 % topical cream RxNorm: 9052651 1 Application TOP Q6 PRN 07/24/2014 01/29/2015 Inactive diltiazem 90 mg tablet RxNorm: 070888 1 Tablet(s) PO BID 201408/04/2014 Inactive cyclobenzaprine 10 mg tablet RxNorm: 119683 1 Tablet(s) PO QH 07/24/2014 08/03/2014 Inactive warfarin 2.5 mg tablet RxNorm: 685733 1 Tablet(s) PO daily 08/22/2014 Inactive [SAVINGS FOR NON-COVERED DRUGS -- BIN:[id number], PCN: ASPROD1, Group: XXXXX, ID# [id number], Questions: . THIS IS NOT INSURANCE.] losartan 25 mg tablet RxNorm: 021206 1 Tablet(s) PO daily 201401/29/2015 Inactive [SAVINGS FOR NON-COVERED DRUGS -- BIN:[id number], PCN: ASPROD1, Group: XXXXX, ID # [id number], Questions: . THIS IS NOT INSURANCE.] isosorbide mononitrate oral RxNorm: 6057 oral No Start Date Active diltiazem ER 360 mg tablet,extended release 24 hr RxNorm: 674432 1 Tablet(s) PO daily No Start Date Active benazepril 10 mg tablet RxNorm: 401195 1 Tablet(s) PO daily No Start Date 07/14/2014 Inactive lisinopril 10 mg tablet RxNorm: 568659 1 Tablet(s) PO daily No Start Date 04/24/2016 Inactive clonazepam 0.5 mg tablet RxNorm: 172779 1 Tablet(s) PO daily No Start Date 08/03/2014 Inactive diltiazem 90 mg tablet RxNorm: 136326 1 Tablet(s) PO daily No Start Date 07/23/2014 Inactive atenolol 25 mg tablet RxNorm: 744549 1 Tablet(s) PO daily No Start Date 08/03/2014 Inactive buspirone 10 mg tablet RxNorm: 390507 1 Tablet(s) PO QID No Start Date 08/03/2014 Inactive omeprazole 20 mg capsule,delayed release RxNorm: 637805 1 Capsule(s) PO BID No Start Date 08/03/2014 Inactive allopurinol 300 mg tablet RxNorm: 851819 1 Tablet(s) PO daily No Start Date 08/03/2014 Inactive Xarelto 20 mg tablet RxNorm: 6122609 1 Tablet(s) PO daily No Start Date 03/03/2015 Inactive warfarin 2 mg tablet RxNorm: 822099 1 Tablet(s) PO daily No Start Date 07/16/2014 Inactive cyanocobalamin (vit B-12) 1,000 mcg/mL injection solution RxNorm: 132376 1 Milliliter(s) Inj monthly No Start Date Inactive cyclobenzaprine 10 mg tablet RxNorm: 283665 1 Tablet(s) PO BID No Start Date 07/23/2014 Inactive Eliquis 2.5 mg tablet RxNorm: 8814024 1 Tablet(s) PO daily No Start Date 03/03/2015 Inactive Medication Administered Medication Codes Instructions Start Date Status Kenalog 40 mg/mL suspension for injection RxNorm: 8518553 1Milliliter 01/30/2015 No longer Active Kenalog 40 mg/mL suspension for injection RxNorm: 8444969 Milliliter 10/14/2014 No longer Active ceftriaxone 500 mg solution for injection RxNorm: 0731785 10/14/2014 No longer Active Immunizations Vaccine Codes [...] behavioral disturbance ICD-10: F01.50 ICD-9: 290.40 12/12/2017 [employer] (current) use of anticoagulants ICD-10: Z79.01 ICD-9: [...] Code Item Item Code Result Date Pt [id number] PT 32.8 seconds 04/06/2018 Pt Kth9194 INR 3.2 04/06/2018 Pt Aku5131 Low Intensity - 1.5-2.0 04/06/2018 Pt Eqf5079 Mod intensity - 2.0-3.0 04/06/2018 Pt Vjd5729 Hi intensity - 3.0-4.0 04/06/2018 Metabolic Ord15 [...] Metabolic Ord15 CALCIUM 9.3 mg/dL 03/28/2018 Pt Jyy8634 PT 31.7 seconds 03/28/2018 Pt Awx0569 INR 3.1 03/28/2018 Pt Vqh8618 Low Intensity - 1.5-2.0 03/28/2018 Pt Luo7829 Mod intensity - 2.0-3.0 03/28/2018 Pt Jaj6822 Hi intensity - 3.0-4.0 03/28/2018 Metabolic Ord15 [...] Metabolic Ord15 CALCIUM 9.0 mg/dL 02/21/2018 Pt Qff3600 PT 23.4 seconds 02/21/2018 Pt Cjr6070 INR 2.1 02/21/2018 Pt Bvn1447 Low Intensity - 1.5-2.0 02/21/2018 Pt Zdz2053 Mod intensity - 2.0-3.0 02/21/2018 Pt Elh8654 Hi intensity - 3.0-4.0 02/21/2018 Pt Akt0161 PT 27.0 seconds 01/15/2018 Pt Uje5646 INR 2.5 01/15/2018 Pt Mqk5623 Low Intensity - 1.5-2.0 01/15/2018 Pt Whl2865 Mod intensity - 2.0-3.0 01/15/2018 Pt Zsc5251 Hi intensity - 3.0-4.0 01/15/2018 Metabolic Ord15 [...] Metabolic Ord15 CALCIUM 9.2 mg/dL 01/15/2018 Pt Hyv8791 PT 29.3 seconds 12/18/2017 Pt Zka3111 INR 2.8 12/18/2017 Pt Xvz2643 Low Intensity - 1.5-2.0 12/18/2017 Pt Rnk8966 Mod intensity - 2.0-3.0 12/18/2017 Pt Kfv8631 Hi intensity - 3.0-4.0 12/18/2017 Metabolic Ord15 [...] Ord15 CALCIUM 9.7 mg/dL 12/18/2017 Comp Metabolic Zuq244 NA 138 mEq/L 09/29/2015 Comp Metabolic Vnw192 K 4.6 mEq/L 09/29/2015 Comp Metabolic Umu398 CL 102 mEq/L 09/29/2015 Comp Metabolic Pdi683 CO2 28.0 mEq/L 09/29/2015 Comp Metabolic Dak656 ANION GAP 13 09/29/2015 Comp Metabolic Xtd446 GLUCOSE 83 mg/dL 09/29/2015 Comp Metabolic Svd217 Creat 1.1 mg/dL 09/29/2015 Comp Metabolic Zkb916 eGFR 52 ml/min/1.73m2 09/29/2015 Comp Metabolic Mqk472 BUN 18 mg/dL 09/29/2015 Comp Metabolic Wrh663 B/C Ratio 16.7 Ratio 09/29/2015 Comp Metabolic Dlx911 CALCIUM 9.6 mg/dL 09/29/2015 Comp Metabolic Wsz391 ALK PHOS 188 U/L 09/29/2015 Comp Metabolic Mvd985 AST(SGOT) 19 U/L 09/29/2015 Comp Metabolic Ijf249 ALT(SGPT) 12 U/L 09/29/2015 Comp Metabolic Ggb294 BILI T 0.6 mg/dL 09/29/2015 Comp Metabolic Toy722 ALBUMIN 4.0 g/dL 09/29/2015 Comp Metabolic Luq788 TPRO 6.6 g/dL 09/29/2015 Comp Metabolic Zyd672 GLOB 2.6 g/dL 09/29/2015 Comp Metabolic Zyt502 A/G Ratio 1.5 Ratio 09/29/2015 Comp Metabolic Cqu587 Osmo 277 mOsmo 09/29/2015 Cbc With Differential [...] 84.1 fl 09/29/2015 Cbc With Differential Ord2 Crowley% 18.3 % 09/29/2015 Cbc With Differential Ord2 [...] 1.41 K/ul 09/29/2015 Cbc With Differential Ord2 Crowley ABS# 1.8 K/ul 09/29/2015 Cbc With Differential Ord2 Eos ABS# 0.2 K/ul 09/29/2015 Cbc With Differential Ord2 Baso ABS# 0.1 K/ul 09/29/2015 Comp Metabolic Gdn522 NA 134 mEq/L 09/22/2015 Comp Metabolic Kpr359 K 4.7 mEq/L 09/22/2015 Comp Metabolic Fmf157 CL 98 mEq/L 09/22/2015 Comp Metabolic Ufw515 CO2 26.0 mEq/L 09/22/2015 Comp Metabolic Qxy850 ANION GAP 15 09/22/2015 Comp Metabolic Oqp129 GLUCOSE 83 mg/dL 09/22/2015 Comp Metabolic Vba498 Creat 1.1 mg/dL 09/22/2015 Comp Metabolic Xny954 eGFR 52 ml/min/1.73m2 09/22/2015 Comp Metabolic Qbm967 BUN 19 mg/dL 09/22/2015 Comp Metabolic Nwc811 B/C Ratio 17.8 Ratio 09/22/2015 Comp Metabolic Ycp814 CALCIUM 9.4 mg/dL 09/22/2015 Comp Metabolic Zqq102 ALK PHOS 182 U/L 09/22/2015 Comp Metabolic Uxt305 AST(SGOT) 30 U/L 09/22/2015 Comp Metabolic Ryp390 ALT(SGPT) 16 U/L 09/22/2015 Comp Metabolic Yrg091 BILI T 0.8 mg/dL 09/22/2015 Comp Metabolic Imo448 ALBUMIN 3.9 g/dL 09/22/2015 Comp Metabolic Coi564 TPRO 6.8 g/dL 09/22/2015 Comp Metabolic Olw414 GLOB 2.9 g/dL 09/22/2015 Comp Metabolic Rvj054 A/G Ratio 1.3 Ratio 09/22/2015 Comp Metabolic Ogu782 Osmo 270 mOsmo 09/22/2015 Cbc With Differential [...] 16.8 % 09/22/2015 Cbc With Differential Ord2 Crowley% 15.4 % 09/22/2015 Cbc With Differential Ord2 [...] 1.81 K/ul 09/22/2015 Cbc With Differential Ord2 Crowley ABS# 1.7 K/ul 09/22/2015 Cbc With Differential [...] 16.5 % 06/02/2015 Cbc With Differential Ord2 Crowley% 16.6 % 06/02/2015 Cbc With Differential Ord2 [...] 1.74 K/ul 06/02/2015 Cbc With Differential Ord2 Crowley ABS# 1.8 K/ul 06/02/2015 Cbc With Differential Ord2 Eos ABS# 0.1 K/ul 06/02/2015 Cbc With Differential Ord2 Baso ABS# 0.0 K/ul 06/02/2015 Cbc With Differential Ord2 New Analyzer Notice Please note new ref ranges starting 03-11-2015 due to implemntation of new five part differential hematolgy analyzer. 06/02/2015 Pt Xrl6949 PT 21.8 seconds 06/02/2015 Pt Bjt6786 INR 2.0 06/02/2015 Pt Eeg4280 Low Intensity - 1.5-2.0 06/02/2015 Pt Exl9513 Mod intensity - 2.0-3.0 06/02/2015 Pt Buq6919 Hi intensity - 3.0-4.0 06/02/2015 Comp Metabolic Hqn685 NA 132 mEq/L 06/02/2015 Comp Metabolic Kyu637 K 4.4 mEq/L 06/02/2015 Comp Metabolic Xty961 CL 94 mEq/L 06/02/2015 Comp Metabolic Atx083 CO2 26.0 mEq/L 06/02/2015 Comp Metabolic Vbc360 ANION GAP 16 06/02/2015 Comp Metabolic Avw533 GLUCOSE 97 mg/dL 06/02/2015 Comp Metabolic Zoj429 Creat 1.2 mg/dL 06/02/2015 Comp Metabolic Wpl940 eGFR 46 ml/min/1.73m2 06/02/2015 Comp Metabolic Nzk757 BUN 19 mg/dL 06/02/2015 Comp Metabolic Uxc739 B/C Ratio 15.8 Ratio 06/02/2015 Comp Metabolic Ydb926 CALCIUM 9.4 mg/dL 06/02/2015 Comp Metabolic Kqa865 ALK PHOS 178 U/L 06/02/2015 Comp Metabolic Dyk897 AST(SGOT) 32 U/L 06/02/2015 Comp Metabolic Ldq454 ALT(SGPT) 31 U/L 06/02/2015 Comp Metabolic Bnt237 BILI T 0.6 mg/dL 06/02/2015 Comp Metabolic Uua281 ALBUMIN 4.0 g/dL 06/02/2015 Comp Metabolic Eyv305 TPRO 6.5 g/dL 06/02/2015 Comp Metabolic Odu743 GLOB 2.5 g/dL 06/02/2015 Comp Metabolic Xia162 A/G Ratio 1.6 Ratio 06/02/2015 Comp Metabolic Ttp700 Osmo 267 mOsmo 06/02/2015 B12 Dbw835 B12 160.00 pg/ml 04/01/2015 Iron Ord72 Iron 39 ug/dl 04/01/2015 Vitamin D 25 Oh Ksy1144 VITAMIN D, 25 HYDROXY 61.20 ng/mL Tsh Ord6 hTSH II 1.87 uIU/mL 03/31/2015 Pt Cwd3514 PT 36.9 seconds 03/31/2015 Pt Zib0001 INR 3.9 03/31/2015 Pt Btp5822 Low Intensity - 1.5-2.0 03/31/2015 Pt Dxm2588 Mod intensity - 2.0-3.0 03/31/2015 Pt Aii7025 Hi intensity - 3.0-4.0 03/31/2015 Comp Metabolic Wjk024 NA 131 mEq/L 03/31/2015 Comp Metabolic Lma351 K 5.3 mEq/L 03/31/2015 Comp Metabolic Jui991 CL 97 mEq/L 03/31/2015 Comp Metabolic Ltq976 CO2 24.0 mEq/L 03/31/2015 Comp Metabolic Tfr630 ANION GAP 15 03/31/2015 Comp Metabolic Mmh459 GLUCOSE 84 mg/dL 03/31/2015 Comp Metabolic Ixn635 Creat 1.3 mg/dL 03/31/2015 Comp Metabolic Dzg561 eGFR 42 ml/min/1.73m2 03/31/2015 Comp Metabolic Hgt369 BUN 26 mg/dL 03/31/2015 Comp Metabolic Vci589 B/C Ratio 20.2 Ratio 03/31/2015 Comp Metabolic Deg770 CALCIUM 9.4 mg/dL 03/31/2015 Comp Metabolic Vqa435 ALK PHOS 172 U/L 03/31/2015 Comp Metabolic Efm061 AST(SGOT) 21 U/L 03/31/2015 Comp Metabolic Fui834 ALT(SGPT) 27 U/L 03/31/2015 Comp Metabolic Fdd858 BILI T 0.5 mg/dL 03/31/2015 Comp Metabolic Zmr405 ALBUMIN 4.0 g/dL 03/31/2015 Comp Metabolic Okz907 TPRO 6.8 g/dL 03/31/2015 Comp Metabolic Wdp332 GLOB 2.8 g/dL 03/31/2015 Comp Metabolic Jdk907 A/G Ratio 1.4 Ratio 03/31/2015 Comp Metabolic Bpf124 Osmo 267 mOsmo 03/31/2015 Cbc With Differential [...] 88.9 fl 03/31/2015 Cbc With Differential Ord2 Crowley% 14.0 % 03/31/2015 Cbc With Differential Ord2 [...] 1.62 K/ul 03/31/2015 Cbc With Differential Ord2 Crowley ABS# 1.6 K/ul 03/31/2015 Cbc With Differential [...] Magnesium Ord90 Mag 2.0 mg/dL 09/19/2014 Pt Qle1822 PT 29.1 seconds 09/19/2014 Pt Xrs7053 INR 2.9 09/19/2014 Pt Twy9884 Low Intensity - 1.5-2.0 09/19/2014 Pt Fjz0873 Mod intensity - 2.0-3.0 09/19/2014 Pt Tca7976 Hi intensity - 3.0-4.0 09/19/2014 Tsh Ord6 hTSH II 1.40 uIU/mL 09/19/2014 Lipid Ord30 CHOL 216 mg/dL 09/19/2014 Lipid Ord30 HDL 78.0 mg/dl 09/19/2014 Lipid Ord30 TRIG 85 mg/dL 09/19/2014 Lipid Ord30 LDL 121 mg/dL 09/19/2014 Lipid Ord30 C/HDL 2.8 Ratio 09/19/2014 Vitamin D 25 Oh Fkh4704 VITAMIN D, 25 HYDROXY 14.13 ng/mL Comp Metabolic Rjl641 NA 134 mEq/L 09/19/2014 Comp Metabolic Qmc487 K 4.7 mEq/L 09/19/2014 Comp Metabolic Och121 CL 98 mEq/L 09/19/2014 Comp Metabolic Qgc974 CO2 27.0 mEq/L 09/19/2014 Comp Metabolic Mmt883 ANION GAP 14 09/19/2014 Comp Metabolic Mdz194 GLUCOSE 94 mg/dL 09/19/2014 Comp Metabolic Evf518 Creat 1.1 mg/dL 09/19/2014 Comp Metabolic Yul507 eGFR 49 ml/min/1.73m2 09/19/2014 Comp Metabolic Euu323 BUN 14 mg/dL 09/19/2014 Comp Metabolic Vxp387 B/C Ratio 12.3 Ratio 09/19/2014 Comp Metabolic Zkx067 CALCIUM 9.7 mg/dL 09/19/2014 Comp Metabolic Kob101 ALK PHOS 150 U/L 09/19/2014 Comp Metabolic Fkc829 AST(SGOT) 16 U/L 09/19/2014 Comp Metabolic Orj198 ALT(SGPT) 9 U/L 09/19/2014 Comp Metabolic Wnj706 BILI T 0.8 mg/dL 09/19/2014 Comp Metabolic Gng074 ALBUMIN 3.9 g/dL 09/19/2014 Comp Metabolic Ech953 TPRO 6.8 g/dL 09/19/2014 Comp Metabolic Jla458 GLOB 2.9 g/dL 09/19/2014 Comp Metabolic Fyw394 A/G Ratio 1.3 Ratio 09/19/2014 Comp Metabolic Khq705 Osmo 268 mOsmo 09/19/2014 Cbc With Differential [...] gingiva 03/27/2018 None Full Exam - General 1995 Ears/Nose/Throat lips/teeth/gingiva Overall: no masses 03/27/2018 None [...] masses 03/15/2018 None Full Exam - General 1995 [...] Model/CDA Sections, Assigned to/Indira Ibanez SNOMED CT: [id number] CPT-4: 85165Wtqhlkv 12/10/2015 TRIAMCINOLONE ACET INJ NOS CPT-4: J3301 01/30/2015 URINALYSIS NONAUTO W/O SCOPE CPT-4: 85194 11/07/2014 ROCEPHIN, PER 250 MG CPT-4: J0696 10/14/2014 TRIAMCINOLONE ACET INJ NOS CPT-4: J3301 10/14/2014 Vital Signs Date Vital 03/27/2018 Blood Pressure 1: 120/62 Code : 8480-6 Heart Rate 1: 58 bpm Height: 5'2" SpO2: 98% Weight: 03/15/2018 Blood Pressure 1: 146/60 Code : 8480-6 BMI: 25.2 Code : 02401-4 Heart Rate 1 : 79 bpm Height: 5'2" SpO2: 98% Weight: 138 lbs 12/12/2017 Blood Pressure 1: 130/60 Code : 8480-6 BMI: 25.2 Code : 12304-5 Heart Rate 1 : 60 bpm Height: 5'2" SpO2: 98% Weight: 138 lbs 09/05/2017 Blood Pressure 1: 108/46 Code : 8480-6 BMI: 24.0 Code : 69397-0 Heart Rate 1 : 70 bpm Height: 5'2" SpO2: 96% Weight: 131 lbs 05/09/2017 Blood Pressure 1: 122/82 Code : 8480-6 BMI: 25.2 Code : 04446-6 Heart Rate 1 : 72 bpm Height: 5'2" SpO2: 95% Weight: 138 lbs 03/07/2017 Blood Pressure 1: 108/52 Code : 8480-6 BMI: 27.6 Code : 76839-6 Heart Rate 1 : 72 bpm Height: 5'2" SpO2: 96% Weight: 151 lbs 01/24/2017 Blood Pressure 1: 126/60 Code : 8480-6 BMI: 27.1 Code : 88750-8 Heart Rate 1 : 60 bpm Height: [...] Code : 8480-6 BMI: 26.8 Code : 34832-0 Heart Rate 1 : 59 bpm Height: 5'2" SpO2: 97% Weight: 146 lbs 8 oz 05/10/2016 Blood Pressure 1: 120/56 Code : 8480-6 BMI: 27.1 Code : 83445-6 Heart Rate 1 : 63 bpm Height: 5'2" SpO2: 97% Weight: 148 lbs 04/25/2016 Blood Pressure 1: 134/66 Code : 8480-6 BMI: 24.9 Code : 62162-9 Heart Rate 1 : 118 bpm Height: 5'2" SpO2: 93% Temperature: 36.8 (C) / 98.3 (F) Weight: 136 lbs 01/14/2016 Blood Pressure 1: 132/78 Code : 8480-6 BMI: 25.6 Code : 29729-4 Heart Rate 1 : 97 bpm Height: 5'2" SpO2: 95% Weight: 140 lbs 12/10/2015 Blood Pressure 1: 118/72 Code : 8480-6 BMI: 26.2 Code : 23761-0 Heart Rate 1 : 68 bpm Height: 5'2" SpO2: 95% Weight: 143 lbs 11/12/2015 Blood Pressure 1: 140/80 Code : 8480-6 BMI: 25.6 Code : 59000-3 Heart Rate 1 : 77 bpm Height: 5'2" SpO2: 93% Weight: 140 lbs 10/08/2015 Blood Pressure 1: 132/60 Code : 8480-6 BMI: 26.2 Code : 18717-5 Heart Rate 1 : 77 bpm Height: 5'2" SpO2: 96% Weight: 143 lbs 09/29/2015 Blood Pressure 1: 130/62 Code : 8480-6 BMI: 27.1 Code : 05515-6 Heart Rate 1 : 86 bpm Height: 5'2" SpO2: 93% Weight: 148 lbs 09/22/2015 Blood Pressure 1: 164/72 Code : 8480-6 BMI: 28.2 Code : 37252-0 Heart Rate 1 : 79 bpm Height: 5'2" SpO2: 92% Weight: 154 lbs 07/21/2015 Blood Pressure 1: 124/70 Code : 8480-6 BMI: 24.5 Code : 88680-3 Heart Rate 1 : 71 bpm Height: 5'2" SpO2: 98% Weight: 134 lbs 06/23/2015 Blood Pressure 1: 122/68 Code : 8480-6 BMI: 25.4 Code : 30345-7 Heart Rate 1 : 78 bpm Height: 5'2" SpO2: 92% Weight: 139 lbs 06/12/2015 Blood Pressure 1: 154/62 Code : 8480-6 BMI: 27.4 Code : 69073-9 Heart Rate 1 : 87 bpm Height: 5'2" SpO2: 94% Weight: 150 lbs 06/02/2015 Blood Pressure 1: 140/68 Code : 8480-6 Heart Rate 1: 90 bpm SpO2: 91% Weight: 142 lbs 03/31/2015 Blood Pressure 1: 120/56 Code : 8480-6 BMI: 23.6 Code : 37848-9 Heart Rate 1 : 82 bpm Height: 5'2" SpO2: 98% Weight: 129 lbs 01/30/2015 Blood Pressure 1: 108/62 Code : 8480-6 BMI: 22.1 Code : 25490-8 Heart Rate 1 : 8299 bpm Height: 5'2 " SpO2: 99% Weight: 121 lbs 12/22/2014 Blood Pressure 1: 130/70 Code : 8480-6 BMI: 21.8 Code : 45233-0 Heart Rate 1 : 106 bpm Height: 5'2" SpO2: 98% Weight: 119 lbs 10/29/2014 Blood Pressure 1: 118/58 Code : 8480-6 BMI: 23.2 Code : 23913-3 Heart Rate 1 : 74 bpm Height: 5'2" SpO2: 93% Weight: 127 lbs 10/14/2014 Blood Pressure 1: 128/64 Code : 8480-6 BMI: 22.9 Code : 36586-6 Heart Rate 1 : 79 bpm Height: 5'2" SpO2: 93% Temperature: 35.9 (C) / 96.6 (F) Weight: 125 lbs 09/19/2014 Blood Pressure 1: 132/72 Code : 8480-6 BMI: 22.9 Code : 46263-1 Heart Rate 1 : 84 bpm Height: 5'2" SpO2: 96% Weight: 125 lbs 08/22/2014 Blood Pressure 1: 124/72 Code : 8480-6 BMI: 23.0 Code : 56374-2 Heart Rate 1 : 64 bpm Height: 5'2" Weight: 126 lbs 08/04/2014 Blood Pressure 1: 126/86 Code : 8480-6 BMI: 23.6 Code : 87647-8 Height: 5'2" Respiratory Rate: 20 bpm Weight: 129 lbs 07/24/2014 Blood Pressure 1: 116/72 Code : 8480-6 BMI: 23.6 Code : 85655-6 Heart Rate 1 : 74 bpm Height: 5'2" Weight: 129 lbs 07/15/2014 Blood Pressure 1: 132/78 Code : 8480-6 BMI: 24.1 Code : 14995-8 Heart Rate 1 : 74 bpm Height: 5'2" SpO2: 97% Weight: 132 lbs Functional Status No Functional Status data History of Present Illness Symptom Name Status Result Effective Date Notes Location in the RLQ 03/27/2018 None Onset and Resolution ongoing 03/27/2018 [...] data Encounters Encounter Performer Location Codes Date ([id number]) [id number] EST. PATIENT, LEVEL IV Diagnosis: Essential (primary) hypertension[ICD10: I10] Diagnosis: Localized edema[ICD10: R60.0] Diagnosis: Right lower quadrant pain[ICD10: R10.31] [facility] CPT-4: 05805 03/27/2018 ([id number]) 28820 EST. PATIENT, LEVEL IV Diagnosis: Right lower quadrant pain[ICD10: R10.31] Diagnosis: Diarrhea, unspecified[ICD10: R19.7] Diagnosis: Essential (primary) hypertension[ICD10: I10] Diagnosis: Low back pain[ICD10: M54.5] Diagnosis: Gastro-esophageal reflux disease without esophagitis[ICD10: K21.9] Merle Daigle MD, [facility] CPT-4: 36275 03/15/2018 ([id number]) 63971 EST. PATIENT, LEVEL IV Diagnosis: Essential (primary) hypertension[ICD10: I10] Diagnosis: retirement (current) use of anticoagulants[ICD10: Z79.01] Diagnosis: Other malaise[ICD10: R53.81] Diagnosis: Vascular dementia without behavioral disturbance[ICD10: F01.50] Veronica Daigle MD, [facility] CPT-4: 63978 12/12/2017 ([id number]) 24531 EST. PATIENT, LEVEL IV Diagnosis: Paroxysmal atrial fibrillation[ICD10: I48.0] Diagnosis: Essential (primary) hypertension[ICD10: I10] Diagnosis: retirement (current) use of anticoagulants[ICD10: Z79.01] Diagnosis: Low back pain[ICD10: M54.5] Veronica Daigle MD, [facility] CPT- 4: 03799 09/05/2017 ([id number]) 09021 EST. PATIENT, LEVEL IV Diagnosis: Essential (primary) hypertension[ICD10: I10] Diagnosis: Generalized anxiety disorder[ICD10: F41.1] Diagnosis: Major depressive disorder, single episode, unspecified[ICD10: F32.9] Diagnosis: Localized edema[ICD10: R60.0] Veronica Daigle MD, [facility] CPT- 4: 87424 05/09/2017 ([id number]) 06433 EST. PATIENT, LEVEL IV Diagnosis: Essential (primary) hypertension[ICD10: I10] Diagnosis: Paroxysmal atrial fibrillation[ICD10: I48.0] Diagnosis: Generalized anxiety disorder[ICD10: F41.1] Diagnosis: Localized edema[ICD10: R60.0] Veronica Daigle MD, [facility] CPT- 4: 22111 03/07/2017 ([id number]) 39093 EST. PATIENT, LEVEL IV Diagnosis: Generalized anxiety disorder[ICD10: F41.1] Diagnosis: Major depressive disorder, single episode, unspecified[ICD10: F32.9] Diagnosis: Essential (primary) hypertension[ICD10: I10] Diagnosis: Paroxysmal atrial fibrillation[ICD10: I48.0] Merle Daigle MD, [facility] CPT-4: 74102 01/24/2017 [id number] EST. PATIENT, LEVEL IV Diagnosis: Other chest pain[ICD10: R07.89] Diagnosis: Other malaise[ICD10: R53.81] Opal Daigle MD, [facility] CPT-4 : 58060 09/29/2016 ([id number]) 82709 EST. PATIENT, LEVEL IV Diagnosis: Essential (primary) hypertension[ICD10: I10] Diagnosis: Paroxysmal atrial fibrillation[ICD10: I48.0] Diagnosis: Localized edema[ICD10: R60.0] Diagnosis: Generalized anxiety disorder[ICD10: F41.1] Diagnosis: Low back pain[ICD10: M54.5] Merle Daigle MD, [facility] CPT-4: 11996 09/13/2016 ([id number]) 23401 EST. PATIENT, LEVEL III Diagnosis: Essential (primary) hypertension[ICD10: I10] Diagnosis: Paroxysmal atrial fibrillation[ICD10: I48.0] Merle Daigle MD, [facility] CPT-4: 43069 05/31/2016 ([id number]) 00644 EST. PATIENT, LEVEL III Diagnosis: Essential (primary) hypertension[ICD10: I10] Diagnosis: Localized edema[ICD10: R60.0] Merle Daigle MD, [facility] CPT-4: 91558 05/10/2016 ([id number]) 25351 EST. PATIENT, LEVEL IV Diagnosis: Paroxysmal atrial fibrillation[ICD10: I48.0] Diagnosis: Essential (primary) hypertension[ICD10: I10] Diagnosis: Generalized anxiety disorder[ICD10: F41.1] Merle Daigle MD, [facility] CPT-4: 64252 04/25/2016 ([id number]) 55706 EST. PATIENT, LEVEL IV Diagnosis: Generalized anxiety disorder[ICD10: F41.1] Diagnosis: Essential (primary) hypertension[ICD10: I10] Diagnosis: Paroxysmal atrial fibrillation[ICD10: I48.0] Diagnosis: Localized edema[ICD10: R60.0] Diagnosis: Acute recurrent maxillary sinusitis[ICD10: J01.01] Merle Daigle MD, [facility] CPT-4: 31249 01/14/2016 ([id number]) 97961 EST. PATIENT, LEVEL IV Diagnosis: Essential (primary) hypertension[ICD10: I10] Diagnosis: Generalized anxiety disorder[ICD10: F41.1] Diagnosis: Localized edema[ICD10: R60.0] Diagnosis: Encounter for immunization[ICD10: Z23] Merle Daigle MD, [facility] CPT-4: 21043 12/10/2015 ([id number]) 41797 EST. PATIENT, LEVEL III Diagnosis: Essential (primary) hypertension[ICD10: I10] Diagnosis: Localized edema[ICD10: R60.0] Merle Daigle MD, [facility] CPT-4: 71470 11/12/2015 ([id number]) 65104 EST. PATIENT, LEVEL III Diagnosis: Essential (primary) hypertension[ICD10: I10] Diagnosis: Localized edema[ICD10: R60.0] Merle Daigle MD, [facility] CPT-4: 42493 10/08/2015 ([id number]) 07753 EST. PATIENT, LEVEL III Diagnosis: Localized edema[ICD10: R60.0] Diagnosis: Essential (primary) hypertension[ICD10: I10] Merle Daigle MD, [facility] CPT-4: 96440 09/29/2015 ([id number]) 82623 EST. PATIENT, LEVEL IV Diagnosis: Localized edema[ICD10: R60.0] Diagnosis: Essential (primary) hypertension[ICD10: I10] Diagnosis: Paroxysmal atrial fibrillation[ICD10: I48.0] Merle Daigle MD, [facility] CPT-4: 65756 09/22/2015 ([id number]) 98797 EST. PATIENT, LEVEL III Diagnosis: Essential (primary) hypertension[ICD10: I10] Diagnosis: Paroxysmal atrial fibrillation[ICD10: I48.0] Merle Daigle MD, [facility] CPT-4: 63104 07/21/2015 ([id number]) 78060 EST. 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 PATIENT, LEVEL IV Diagnosis: Essential (primary) hypertension[ICD10: I10] Diagnosis: Paroxysmal atrial fibrillation[ICD10: I48.0] Diagnosis: Localized edema[ICD10: R60.0] Diagnosis: Encounter for therapeutic drug level monitoring[ICD10: Z51.81] Merle Daigle MD, [facility] CPT-4: 71050 06/02/2015 [id number]) 61865 EST. PATIENT, LEVEL IV Diagnosis: Essential (primary) hypertension[ICD10: I10] Diagnosis: Vitamin D deficiency, unspecified[ICD10: E55.9] Diagnosis: Major depressive disorder, single episode, unspecified[ICD10: F32.9] Diagnosis: Paroxysmal atrial fibrillation[ICD10: I48.0] Diagnosis: retirement (current) use of anticoagulants[ICD10: Z79.01] Merle Daigle MD , [facility] CPT-4: 34347 03/31/2015 [id number]) 91957 EST. PATIENT, LEVEL III Diagnosis: Essential (primary) hypertension[ICD10: I10] Diagnosis: Allergic rhinitis due to pollen[ICD10: J30.1] Merle Daigle MD, [facility] CPT-4: 78475 01/30/2015 [id number] EST. PATIENT, LEVEL III Diagnosis: Localized edema[ICD10: R60.0] Diagnosis: Diarrhea, unspecified[ICD10: R19.7] Veronica Daigle MD, [facility] CPT-4: 92074 12/22/2014 ([id number]) 46617 EST. PATIENT, LEVEL IV Diagnosis: DYSPHAGIA, PHARYNGEAL[ICD9: 787.23] Diagnosis: Low back pain[ICD9: 724.2] Diagnosis: Cough[ICD9: 786.2] Diagnosis: Anticoagulated on Coumadin[ICD9: V58.83] Diagnosis: MUSCLE WEAKNESS-GENERAL[ICD9: 728.87] Diagnosis: EDEMA[ICD9: 782.3] Veronica Daigle MD, [facility] CPT-4: 98706 10/29/2014 ([id number]) 56644 EST. PATIENT, LEVEL IV Diagnosis: Low back pain[ICD9: 724.2] Diagnosis: Pneumonia[ICD9: 486] Diagnosis: Cough[ICD9: 786.2] Diagnosis: Anticoagulated on Coumadin[ICD9: V58.83] Diagnosis: DYSPHAGIA, NOS[ICD9: 787.20] Diagnosis: MUSCLE WEAKNESS-GENERAL[ICD9: 728.87] Merle Daigle MD, [facility] CPT-4: 23673 10/14/2014 ([id number]) 91280 EST. PATIENT, LEVEL IV Diagnosis: ESSENTIAL HYPERTENSION[ICD9: 401.9] Diagnosis: ESOPHAGEAL REFLUX[ICD9: 530.81] Diagnosis: SLEEP RELATED LEG CRAMPS[ICD9: 327.52] Diagnosis: Atrial fibrillation[ICD9: 427.31] Diagnosis: Anticoagulated on Coumadin[ICD9: V58.83] Diagnosis: VITAMIN D DEFICIENCY[ICD9: 268.9] Merle Daigle MD, [facility] CPT-4: 33017 09/19/2014 ([id number]) 11480 EST. PATIENT, LEVEL III Diagnosis: EDEMA[ICD9: 782.3] Diagnosis: LONG-TERM USE ANTICOAGUL[ICD9: V58.61] Merle Daigle MD, [facility] CPT-4: 86767 08/22/2014 [id number]) 69554 EST. PATIENT, LEVEL IV Diagnosis: Skin irritation[ICD9: 709.9] Diagnosis: ESSENTIAL HYPERTENSION[ICD9: 401.9] Diagnosis: Anticoagulated on Coumadin[ICD9: V58.83] Diagnosis: DEPRESSIVE DISORDER NEC[ICD9: 311] Yumiko Daigle MD, [facility] CPT-4: 80169 08/04/2014 ([id number]) [id number] EST. PATIENT, LEVEL III Diagnosis: Skin irritation[ICD9: 709.9] [facility] CPT- 4: 65430 07/24/2014 ([id number]) OFFICE/OUTPATIENT VISIT NEW Diagnosis: ESSENTIAL HYPERTENSION[ICD9: 401.9] Diagnosis: COUGH[ICD9: 786.2] Diagnosis: Atrial fibrillation[ICD9: 427.31] Diagnosis: LONG-TERM USE ANTICOAGUL[ICD9: V58.61] Diagnosis: DEPRESSIVE DISORDER NEC[ICD9: 311] [facility] CPT-4: 89386 07/15/2014 Plan of Care Planned Activity Notes [...] symptoms return 03/27/2018 Appointment: Merle Esparza WPtel: [address] [place], [place] [phone] (30 min) [facility] 03/27/2018 Patient Education: Patient Medication Summary Completed [...] of over-medication. 03/15/2018 Appointment: [phone] [place] (30 min) Complex 03/15/2018 Patient Education: Patient Medication Summary Completed 03/15/2018 Patient Education: Hypertension Completed 03/15/2018 Patient Education: Back Pain Completed 03/15/2018 [facility]ment[facility] [phone] [facility] [place] ([facility] min) Moderate 02/01/2018 Appointment: Veronica Daigle WPtel: [facility] (15 min) Moderate 01/16/2018 Visit Plan: Hypertension [...] resistant to the idea of going to OR. She wants to stay in her home, however she is in need of more care in her home, which she cannot afford to pay for at this time. 12/12/2017 Appointment: Veronica Daigle WPtel[facility] [place] ([facility] min) Moderate 12/12/2017 Patient Education: [...] had her pain medication stolen by a animal care provider through home health - i have given pt a script for 50 pills to get her through for when she can get her next RX for her pain medication. 09/05/2017 App[facility]ment: [facility] [phone] [facility] ([facility] min) Moderate 09/05/2017 Patient Education: Patient [...] No change in current medications. 05/09/2017 Appointment: [facility] [phone] [facility] (15 min) Moderate 05/09/2017 Patient Education: Patient [...] current medications. 03/07/2017 Appointment: Veronica Daigle WPtel: [facility]5 [phone] (15 min) Moderate 03/07/2017 Patient Education: Patient [...] becoming uncontrolled. 01/24/2017 Appointment: Merle Esparza WPtel: [facility]8 [phone] [place] (30 min) Complex 01/24/2017 Patient Education: [...] or concerns. 09/29/2016 Appointment: Opal Boyle WPtel: [facility]6 [facility] (15 min) Moderate 09/29/2016 Appointment: Opal Boyle WPtel: [phone] (15 min) Moderate 09/29/2016 Patient Education: Patient [...] medications. 09/13/2016 Appointment: Merle Esparza WPtel: [phone] [phone] (30 min) Complex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
--- OUTSIDE RECORDS SUMMARY | 2018-04-18 23:35 | XMS REPORT | CCD ---
Author Author [facility] Organization [facility] Address [address] [place] [address] Phone Care Team Providers Care Rn Pool Name Role Phone PP Unavailable CCM Unavailable Summary Purpose Interface Exchange Insurance Providers Payer name Policy type / Coverage type Covered democrat ID Effective Begin Date Effective End Date WPS Medicare Part B Medicare Part B [id number] Unknown Family history Mother Diagnosis Age At Onset Hypertension Unknown Heart Attack Unknown Social History Social History Element Codes Description Effective Dates Marital status Unknown 07/15/2014 Marital status Unknown 07/15/2014 Number of children Unknown 0 07/15/2014 Number of children Unknown 0 07/15/2014 Employment Unknown Retired 07/15/2014 Employment Unknown Retired 07/15/[address]: 833881093 Has never smoked or chewed tobacco 07/15/[address]: 099763135 Has never smoked or chewed tobacco 07/15/[address]: 490517565 Never drinks alcohol 07/15/[address]: 733007959 Never drinks alcohol 07/15/2014 Allergies, Adverse Reactions, [...] ICD-9: 724.2 ICD-10: M54.5 Active 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 ICD-9: V58.61 ICD-10: [...] pain ICD-9: 724.2 ICD-10: M54.5 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 ICD-10: [...] Fill Instructions buspirone 10 mg tablet RxNorm: 747309 TAKE ONE TABLET BY MOUTH THREE TIMES A DAY 03/21/2018 07/18/2018 Active hydrocodone 7.5 mg-acetaminophen 325 mg tablet RxNorm: 169805 1 Tablet(s) PO daily as needed pain 03/15/20182018 Active Flagyl 500 mg tablet RxNorm: 326000 1 Tablet(s) PO TID 201803/24/2018 Inactive potassium chloride ER 10 mEq tablet,extended release RxNorm: 252451 TAKE TWO TABLETS BY MOUTH THREE TIMES A DAY 02/28/2018 07/27/2018 Active hydrocodone 7.5 mg-acetaminophen 325 mg tablet RxNorm: 977704 1 Tablet(s) PO daily as needed pain 02/01/20182018 Inactive Xanax 0.25 mg tablet RxNorm: 518533 1 Tablet(s) PO TID as needed anxiety 01/01/2018 01/20/2018 Inactive hydrocodone 7.5 mg-acetaminophen 325 mg tablet RxNorm: 849817 1 Tablet(s) PO daily as needed pain 12/12/20172017 Inactive cyanocobalamin (vit B-12) 1,000 mcg/mL injection solution RxNorm: 838975 INJECT 1 ML INTRAMUSCULARLY 2 TIMES A MONTH FOR 2 MONTHS, THEN ONCE A MONTH THEREAFTER 11/28/2017 01/22/2018 Inactive hydrocodone 7.5 mg-acetaminophen 325 mg tablet RxNorm: 845136 1-2 Tablet(s) PO Q4- 6H as needed pain 11/21/2017 12/11/2017 Inactive Lasix 40 mg tablet RxNorm: 451911 TAKE ONE TABLET BY MOUTH DAILY 10/23/2017 04/20/2018 Active Lexapro 5 mg tablet RxNorm: 022224 TAKE ONE TABLET BY MOUTH EVERY EVENING 10/23/2017 12/21/2017 Inactive buspirone 10 mg tablet RxNorm: 985446 TAKE ONE TABLET BY MOUTH THREE TIMES A DAY 10/02/2017 02/28/2018 Inactive omeprazole 20 mg capsule,delayed release RxNorm: 044585 TAKE ONE CAPSULE BY MOUTH TWICE A DAY 09/13/2017 03/11/2018 Inactive Levaquin 750 mg tablet RxNorm: 142450 1 tab every other day for 5 doses 1 Tablet(s ) PO 08/29/2017 08/28/2017 Inactive Levaquin 750 mg tablet RxNorm: 383107 1 tab every other day for 5 doses 1 Tablet(s ) PO 08/29/2017 09/02/2017 Inactive hydrocodone 7.5 mg-acetaminophen 325 mg tablet RxNorm: 234360 1-2 Tablet(s) PO Q4- 6H as needed pain 08/28/2017 09/26/2017 Inactive potassium chloride ER 10 mEq tablet,extended release RxNorm: 902508 TAKE TWO TABLETS BY MOUTH THREE TIMES A DAY 08/28/2017 12/25/2017 Inactive metoprolol tartrate 25 mg tablet RxNorm: 999163 TAKE 1/2 TABLET BY MOUTH TWO TIMES A DAY 07/25/2017 07/19/2018 Active Lexapro 5 mg tablet RxNorm: 927789 TAKE ONE TABLET BY MOUTH EVERY EVENING 07/21/2017 10/18/2017 Inactive hydrocodone 7.5 mg-acetaminophen 325 mg tablet RxNorm: 710862 1-2 Tablet(s) PO Q4- 6H as needed pain 07/19/2017 08/17/2017 Inactive hydrocodone 7.5 mg-acetaminophen 325 mg tablet RxNorm: 334542 1-2 Tablet(s) PO Q4- 6H as needed pain 07/03/2017 07/18/2017 Inactive hydrocodone 7.5 mg-acetaminophen 325 mg tablet RxNorm: 972192 1-2 Tablet(s) PO Q4- 6H as needed pain 05/25/2017 06/23/2017 Inactive cyanocobalamin (vit B-12) 1,000 mcg/mL injection solution RxNorm: 761418 INJECT 1 ML INTRAMUSCULARLY 2 TIMES A MONTH FOR 2 MONTHS, THEN ONCE A MONTH THEREAFTER 05/19/2017 08/10/2017 Inactive warfarin 5 mg tablet RxNorm: 303640 TAKE ONE TABLET BY MOUTH DAILY 04/26/2017 04/20/2018 Active buspirone 10 mg tablet RxNorm: 540772 TAKE ONE TABLET BY MOUTH THREE TIMES A DAY 04/26/2017 09/22/2017 Inactive Xanax 0.25 mg tablet RxNorm: 628454 1 Tablet(s) PO TID as needed anxiety 04/17/2017 05/14/2017 Inactive Levaquin 500 mg tablet RxNorm: 395596 1 Tablet(s) PO Q72H x3 doses 04/11/2017 04/10/2017 Inactive Levaquin 500 mg tablet RxNorm: 152993 1 Tablet(s) PO Q72H x3 doses 04/11/2017 07/03/2017 Inactive potassium chloride ER 10 mEq tablet,extended release RxNorm: 189964 TAKE TWO TABLETS BY MOUTH THREE TIMES A DAY 03/27/2017 08/23/2017 Inactive Tamiflu 75 mg capsule RxNorm: 843592 1 Capsule(s) PO BID 201707/03/2017 Inactive Zofran 4 mg tablet RxNorm: 636903 1 Tablet(s) PO QID as needed nausea 03/23/2017 06/20/2017 Inactive Zofran 4 mg tablet RxNorm: 346747 1 Tablet(s) PO QID as needed nausea 03/23/2017 03/22/2017 Inactive Tamiflu 75 mg capsule RxNorm: 264725 1 Capsule(s) PO BID 201703/22/2017 Inactive lisinopril 10 mg tablet RxNorm: 641843 TAKE ONE-HALF TABLET BY MOUTH DAILY 03/10/2017 06/02/2018 Active metolazone 5 mg tablet RxNorm: 752228 1 Tablet(s) PO TIW 201703/01/2018 Inactive hydrocodone 7.5 mg-acetaminophen 325 mg tablet RxNorm: 522122 1-2 Tablet(s) PO Q4- 6H as needed pain 02/23/2017 05/24/2017 Inactive omeprazole 20 mg capsule,delayed release RxNorm: 137507 Capsule(s) TAKE ONE CAPSULE BY MOUTH TWICE A DAY 02/08/2017 Inactive metolazone 5 mg tablet RxNorm: 207657 TAKE 1 TABLET BY MOUTH TWICE WEEKLY 02/08/2017 03/06/2017 Inactive Lexapro 5 mg tablet RxNorm: 502133 1 Tablet(s) PO QPM 201603/06/2017 Inactive hydrocodone 7.5 mg-acetaminophen 325 mg tablet RxNorm: 591868 1-2 Tablet(s) PO Q4- 6H as needed pain 01/16/2017 02/22/2017 Inactive Lasix 40 mg tablet RxNorm: 387366 TAKE ONE TABLET BY MOUTH DAILY 01/11/2017 10/07/2017 Inactive metoprolol tartrate 25 mg tablet RxNorm: 737384 TAKE 1/2 TABLET BY MOUTH TWO TIMES A DAY 01/11/2017 07/09/2017 Inactive allopurinol 300 mg tablet RxNorm: 299935 TAKE ONE TABLET BY MOUTH DAILY 01/09/2017 06/07/2017 Inactive hydrocodone 7.5 mg-acetaminophen 325 mg tablet RxNorm: 654320 1-2 Tablet(s) PO Q4- 6H as needed pain 12/06/2016 01/15/2017 Inactive lisinopril 10 mg tablet RxNorm: 386412 TAKE ONE-HALF TABLET BY MOUTH DAILY 12/02/2016 03/09/2017 Inactive buspirone 10 mg tablet RxNorm: 233904 TAKE ONE TABLET BY MOUTH THREE TIMES A DAY 10/25/2016 01/22/2017 Inactive buspirone 10 mg tablet RxNorm: 788702 TAKE ONE TABLET BY MOUTH THREE TIMES A DAY 10/25/2016 10/24/2016 Inactive hydrocodone 7.5 mg-acetaminophen 325 mg tablet RxNorm: 082037 1-2 or 2 Tablet(s) PO Q4-6H as needed pain 10/25/20162016 Inactive cyanocobalamin (vit B-12) 1,000 mcg/mL injection solution RxNorm: 774505 INJECT 1 ML INTRAMUSCULARLY 2 TIMES A MONTH FOR 2 MONTHS, THEN ONCE A MONTH THEREAFTER 10/24/2016 02/12/2017 Inactive metolazone 5 mg tablet RxNorm: 322516 TAKE 1 TABLET BY MOUTH TWICE WEEKLY 09/23/2016 01/12/2017 Inactive hydrocodone 7.5 mg-acetaminophen 325 mg tablet RxNorm: 097108 1-2 or 2 Tablet(s) PO Q4-6H as needed pain 09/13/20162016 Inactive Keflex 500 mg capsule RxNorm: 645333 1 Capsule(s) PO TID 201609/15/2016 Inactive Take with a probiotic BID Keflex 500 mg capsule RxNorm: 462812 1 Capsule(s) PO TID 201609/08/2016 Inactive Take with a probiotic BID metoprolol tartrate 25 mg tablet RxNorm: 102054 TAKE 1/2 TABLET BY MOUTH TWO TIMES A DAY 09/07/2016 01/04/2017 Inactive potassium chloride ER 10 mEq tablet,extended release RxNorm: 015565 TAKE TWO TABLETS BY MOUTH THREE TIMES A DAY 09/01/2016 02/27/2017 Inactive hydrocodone 7.5 mg-acetaminophen 325 mg tablet RxNorm: 025035 1 or 2 Tablet(s) PO Q4-6H as needed pain 08/31/20162016 Inactive omeprazole 20 mg capsule,delayed release RxNorm: 198299 TAKE ONE CAPSULE BY MOUTH TWICE A DAY 08/24/2016 02/07/2017 Inactive hydrocodone 7.5 mg-acetaminophen 325 mg tablet RxNorm: 034694 1 or 2 Tablet(s) PO Q4-6H as needed pain 08/05/20162016 Inactive lisinopril 10 mg tablet RxNorm: 385207 TAKE ONE-HALF TABLET BY MOUTH DAILY 07/28/2016 12/01/2016 Inactive hydrocodone 7.5 mg-acetaminophen 325 mg tablet RxNorm: 759348 1 or 2 Tablet(s) PO Q4-6H as needed pain 07/05/20162016 Inactive allopurinol 300 mg tablet RxNorm: 426533 TAKE ONE TABLET BY MOUTH DAILY 06/16/2016 12/12/2016 Inactive metoprolol tartrate 25 mg tablet RxNorm: 628134 TAKE 1/2 TABLET BY MOUTH TWO TIMES A DAY 06/16/2016 08/14/2016 Inactive buspirone 10 mg tablet RxNorm: 846965 TAKE ONE TABLET BY MOUTH THREE TIMES A DAY 06/15/2016 10/12/2016 Inactive hydrocodone 7.5 mg-acetaminophen 325 mg tablet RxNorm: 984418 1 or 2 Tablet(s) PO Q4-6H as needed pain 06/07/20162016 Inactive metoprolol tartrate 25 mg tablet RxNorm: 962850 1/2 Tablet(s) PO QPM 05/10/2016 06/08/2016 Inactive lisinopril 10 mg tablet RxNorm: 059479 1/2 Tablet(s) PO daily 04/26/2016 07/27/2016 Inactive hydrocodone 7.5 mg-acetaminophen 325 mg tablet RxNorm: 614085 1 or 2 Tablet(s) PO Q4-6H as needed pain 04/25/20162016 Inactive lisinopril 10 mg tablet RxNorm: 771169 1/2 Tablet(s) PO daily 04/25/2016 04/25/2016 Inactive metoprolol tartrate 25 mg tablet RxNorm: 277962 1/2 Tablet(s) PO BID 04/25/2016 05/09/2016 Inactive allopurinol 300 mg tablet RxNorm: 380091 TAKE ONE TABLET BY MOUTH DAILY 04/19/2016 06/15/2016 Inactive metolazone 5 mg tablet RxNorm: 912494 TAKE 1 TABLET BY MOUTH TWICE WEEKLY 04/19/2016 09/05/2016 Inactive potassium chloride ER 10 mEq tablet,extended release RxNorm: 757123 2 Tablet(s) PO TID 03/21/2016 08/17/2016 Inactive warfarin 5 mg tablet RxNorm: 138472 1 Tablet(s) PO daily TAKE ONE TABLET BY MOUTH DAILY 03/21/2016 03/15/[address] Echevarria manages potassium chloride ER 10 mEq tablet,extended release(part/ cryst) RxNorm: 8126077 2 Tablet(s) PO TID 03/11/2016 03/20/2016 Inactive Xanax 0.25 mg tablet RxNorm: 171910 1 Tablet(s) PO TID as needed anxiety 03/10/2016 04/06/2016 Inactive Xanax 0.25 mg tablet RxNorm: 173486 1 Tablet(s) PO TID as needed anxiety 03/10/2016 12/31/2017 Inactive hydrocodone 7.5 mg-acetaminophen 325 mg tablet RxNorm: 531486 1 or 2 Tablet(s) PO Q4-6H as needed pain 02/26/20162016 Inactive Flonase Allergy Relief 50 mcg/actuation nasal spray, suspension RxNorm: 7478089 1 [place] NASAL each nare daily 01/19/2016 03/18/2016 Inactive cefdinir 300 mg capsule RxNorm: 997890 1 Capsule(s) PO BID 01/23/2016 Inactive take probiotic BID x 7 days Flonase Allergy Relief 50 mcg/actuation nasal spray, suspension RxNorm: 2341356 1 [place] NASAL each nare daily 01/19/2016 01/18/2016 Inactive allopurinol 300 mg tablet RxNorm: 802644 TAKE ONE TABLET BY MOUTH DAILY 01/18/2016 04/16/2016 Inactive Lasix 40 mg tablet RxNorm: 820522 1 Tablet(s) PO daily 201501/07/2017 Inactive (this was only twice daily x1 week) now it's daily cefdinir 300 mg capsule RxNorm: 222799 1 Capsule(s) PO BID 01/17/2016 Inactive take probiotic BID x 7 days cefdinir 300 mg capsule RxNorm: 616297 1 Capsule(s) PO BID 01/10/2016 Inactive buspirone 10 mg tablet RxNorm: 679685 TAKE ONE TABLET BY MOUTH THREE TIMES A DAY 01/11/2016 06/08/2016 Inactive hydrocodone 7.5 mg-acetaminophen 325 mg tablet RxNorm: 241013 1 or 2 Tablet(s) PO Q4-6H as needed pain 12/28/20152015 Inactive potassium chloride ER 10 mEq tablet,extended release(part/ cryst) RxNorm: 8044263 2 po TID x 2 days then 2 po BID Tablet(s) 12/28/2015 03/10/2016 Inactive potassium chloride ER 10 mEq tablet,extended release(part/ cryst) RxNorm: 8015091 TAKE ONE TABLET BY MOUTH TWICE A DAY FOR 1 WEEK THEN RETURN TO DAILY 12/28/2015 12/27/2015 Inactive meclizine 25 mg tablet RxNorm: 888131 1 Tablet(s) PO BID PRN No Stop Date Active potassium chloride ER 10 mEq tablet,extended release(part/ cryst) RxNorm: 6643885 1 Tablet(s) PO TID 12/08/2015 03/10/2016 Inactive potassium chloride ER 10 mEq tablet,extended release(part/ cryst) RxNorm: 9818890 2 Tablet(s) PO daily 11/26/20152015 Inactive cyanocobalamin (vit B-12) 1,000 mcg/mL injection solution RxNorm: 724344 INJECT 1 ML INTRAMUSCULARLY 2 TIMES A MONTH FOR 2 MONTHS, THEN ONCE A MONTH THEREAFTER 11/26/2015 04/23/2016 Inactive potassium chloride ER 10 mEq tablet,extended release(part/ cryst) RxNorm: 6516785 3 Tablet(s) PO daily 11/23/20152015 Inactive Lasix 40 mg tablet RxNorm: 504690 1 Tablet(s) PO daily 201501/13/2016 Inactive (this was only twice daily x1 week) now it's daily metolazone 5 mg tablet RxNorm: 067508 1 Tablet(s) BIW TAKE ONE TABLET BY MOUTH DAILY 11/12/2015 04/18/2016 Inactive hydrocodone 7.5 mg-acetaminophen 325 mg tablet RxNorm: 117712 1 or 2 Tablet(s) PO Q4-6H as needed pain 11/12/20152015 Inactive Lasix 40 mg tablet RxNorm: 211006 1 Tablet(s) PO daily 201511/11/2015 Inactive (this was only twice daily x1 week) now it's daily metolazone 5 mg tablet RxNorm: 357802 Tablet(s) TAKE ONE TABLET BY MOUTH DAILY 10/22/2015 10/29/2015 Inactive potassium chloride ER 10 mEq tablet,extended release(part/ cryst) RxNorm: 1428009 1 Tablet(s) PO daily 10/08/20152015 Inactive twice daily x 1 week then return to daily Lasix 40 mg tablet RxNorm: 960843 1 Tablet(s) PO daily 201511/09/2015 Inactive twice daily x 1 week then daily thereafter Keflex 500 mg capsule RxNorm: 161368 1 Capsule(s) PO TID 201510/02/2015 Inactive Keflex 500 mg capsule RxNorm: 814803 1 Capsule(s) PO TID 201509/22/2015 Inactive hydrocodone 7.5 mg-acetaminophen 325 mg tablet RxNorm: 781210 1 or 2 Tablet(s) PO Q4-6H as needed pain 09/22/20152015 Inactive potassium chloride ER 10 mEq tablet,extended release(part/ cryst) RxNorm: 5053234 1 Tablet(s) PO BID 09/22/2015 10/07/2015 Inactive twice daily x 1 week then return to daily Lasix 40 mg tablet RxNorm: 908124 1 Tablet(s) PO BID 201510/07/2015 Inactive twice daily x 1 week then daily thereafter allopurinol 300 mg tablet RxNorm: 829368 1 Tablet(s) PO daily 09/09/2015 01/06/2016 Inactive diltiazem 90 mg tablet RxNorm: 359210 Tablet(s) TAKE ONE TABLET BY MOUTH THREE TIMES A DAY 09/02/2015 01/28/2016 Inactive diltiazem 90 mg tablet RxNorm: 314936 TAKE ONE TABLET BY MOUTH THREE TIMES A DAY 08/31/2015 01/28/2016 Inactive diltiazem 90 mg tablet RxNorm: 969354 TAKE ONE TABLET BY MOUTH THREE TIMES A DAY 08/31/2015 09/01/2015 Inactive Xanax 0.25 mg tablet RxNorm: 916693 1 Tablet(s) PO TID as needed anxiety 08/28/2015 09/26/2015 Inactive Xanax 0.25 mg tablet RxNorm: 825155 1 Tablet(s) PO TID as needed anxiety 08/28/2015 08/27/2015 Inactive potassium chloride ER 10 mEq tablet,extended release(part/ cryst) RxNorm: 162977 TAKE ONE TABLET BY MOUTH DAILY 08/27/2015 2015 Inactive omeprazole 20 mg capsule,delayed release RxNorm: 749334 TAKE ONE CAPSULE BY MOUTH TWICE A DAY 08/16/2015 02/11/2016 Inactive omeprazole 20 mg capsule,delayed release RxNorm: 389990 TAKE ONE CAPSULE BY MOUTH TWICE A DAY 08/16/2015 08/15/2015 Inactive hydrocodone 7.5 mg-acetaminophen 325 mg tablet RxNorm: 341243 1 or 2 Tablet(s) PO Q4-6H as needed pain 08/11/20152015 Inactive omeprazole 20 mg capsule,delayed release RxNorm: 340215 Capsule(s) TAKE ONE CAPSULE BY MOUTH TWICE A DAY 08/03/2015 Inactive omeprazole 20 mg capsule,delayed release RxNorm: 234800 Capsule(s) TAKE ONE CAPSULE BY MOUTH TWICE A DAY 07/31/2015 Inactive buspirone 10 mg tablet RxNorm: 758697 TAKE ONE TABLET BY MOUTH THREE TIMES A DAY 07/13/2015 01/08/2016 Inactive metolazone 5 mg tablet RxNorm: 745854 TAKE ONE TABLET BY MOUTH DAILY 07/02/2015 07/09/2015 Inactive metolazone 5 mg tablet RxNorm: 066536 1 Tablet(s) PO daily 06/18/2015 Inactive metolazone 5 mg tablet RxNorm: 090944 1 Tablet(s) PO daily 06/14/2015 Inactive hydrocodone 7.5 mg-acetaminophen 325 mg tablet RxNorm: 769362 1or2 1 or 2 Tablet(s ) PO Q4-6H as needed pain 06/12/201507/10 Inactive warfarin 1 mg tablet RxNorm: 018176 1 Tablet(s) 04/15/2015 06/22/2015 Inactive take with 3mg to make 4mg on Mon and repeat in 1 week. hydrocodone 7.5 mg-acetaminophen 325 mg tablet RxNorm: 685437 1or2 or 2 Tablet(s) PO Q4-6H as needed pain 03/31/20152015 Inactive hydrocodone 7.5 mg-acetaminophen 325 mg tablet RxNorm: 553964 1or2 or 2 Tablet(s) PO Q4-6H as needed pain 03/25/20152015 Inactive warfarin 5 mg tablet RxNorm: 966272 1 Tablet(s) PO daily TAKE ONE TABLET BY MOUTH DAILY 03/05/2015 06/22/2015 Inactive Xarelto 20 mg tablet RxNorm: 3275443 1 Tablet(s) PO QPM 201503/04/2015 Inactive losartan 100 mg tablet RxNorm: 502324 1 Tablet(s) PO daily 05/201406/22/2015 Inactive [SAVINGS FOR NON-COVERED DRUGS -- BIN:[id number], PCN: ASPROD1, Group: XXXXX, ID# [id number], Questions: . THIS IS NOT INSURANCE.] Kenalog 40 mg/mL suspension for injection RxNorm: 1397836 1 Milliliter(s) Inj 01/30/2015 01/30/2015 Inactive hydrocodone 7.5 mg-acetaminophen 325 mg tablet RxNorm: 363033 1or2 or 2 Tablet(s) PO Q4-6H as needed pain 01/15/20152014 Inactive Lasix 40 mg tablet RxNorm: 240883 1 Tablet(s) PO daily 201409/21/2015 Inactive as needed for swelling-take potassium when you take lasix potassium chloride ER 10 mEq tablet,extended release(part/ cryst) RxNorm: 637177 2 Tablet(s) PO daily 01/06/2015 01/19/2015 Inactive Lasix 40 mg tablet RxNorm: 511926 1 Tablet(s) PO daily 201401/06/2015 Inactive Ok to fill 20mg, not 40mg as needed for swelling-take potassium when you take lasix potassium chloride ER 10 mEq tablet,extended release(part/ cryst) RxNorm: 447069 1 Tablet(s) PO BID 12/30/2014 01/05/2015 Inactive Vitamin D2 50,000 unit capsule RxNorm: 835780 TAKE 1 CAPSULE BY MOUTH ONCE WEEKLY FOR 12 WEEKS 12/30/2014 03/23/2015 Inactive potassium chloride ER 10 mEq tablet,extended release(part/ cryst) RxNorm: 303624 1 Tablet(s) PO daily 12/26/2014 12/29/2014 Inactive potassium chloride ER 10 mEq tablet,extended release(part/ cryst) RxNorm: 391275 1 Tablet(s) PO daily 12/26/2014 12/25/2014 Inactive omeprazole 20 mg capsule,delayed release RxNorm: 955537 TAKE ONE CAPSULE BY MOUTH TWICE A DAY 12/24/2014 07/21/2015 Inactive Flagyl 500 mg tablet RxNorm: 446235 1 Tablet(s) PO TID 201412/20/2014 Inactive Flagyl 500 mg tablet RxNorm: 658425 1 Tablet(s) PO TID 201412/10/2014 Inactive warfarin 3 mg tablet RxNorm: 366126 TAKE ONE TABLET BY MOUTH DAILY 11/13/2014 01/29/2015 Inactive warfarin 3 mg tablet RxNorm: 994136 TAKE ONE TABLET BY MOUTH DAILY 11/13/2014 01/29/2015 Inactive warfarin 3 mg tablet RxNorm: 778562 TAKE ONE TABLET BY MOUTH DAILY 11/13/2014 03/04/2015 Inactive warfarin 3 mg tablet RxNorm: 404115 1 Tablet(s) PO daily 201403/04/2015 Inactive allopurinol 300 mg tablet RxNorm: 418922 1 Tablet(s) PO daily 11/11/2014 03/10/2015 Inactive hydrocodone 7.5 mg-acetaminophen 325 mg tablet RxNorm: 159022 1or2 or 2 Tablet(s) PO Q4-6H as needed pain 11/10/20142014 Inactive hydrocodone 7.5 mg-acetaminophen 325 mg tablet RxNorm: 517554 1or2 or 2 Tablet(s) PO Q4-6H as needed pain 10/15/20142014 Inactive hydrocodone 7.5 mg-acetaminophen 325 mg tablet RxNorm: 258128 1or2 or 2 Tablet(s) PO Q4-6H as needed pain 10/15/20142014 Inactive Kenalog 40 mg/mL suspension for injection RxNorm: 5255025 Milliliter(s) Inj 10/14/2014 10/14/2014 Inactive ceftriaxone 500 mg solution for injection RxNorm: 3384972 Inj 10/14/2014 10/14/2014 Inactive Zithromax Z-Chito 250 mg tablet RxNorm: 256076 1 Tablet(s) PO UD 10/14/2014 01/29/2015 Inactive zpack cefdinir 300 mg capsule RxNorm: 950776 1 Capsule(s) PO BID 10/20/2014 Inactive Vitamin D2 50,000 unit capsule RxNorm: 910765 1 Capsule(s) PO weekly x 12 weeks 09/24/2014 09/23/2014 Inactive Vitamin D2 50,000 unit capsule RxNorm: 085736 1 Capsule(s) PO weekly x 12 weeks 09/24/2014 12/22/2014 Inactive warfarin 1 mg tablet RxNorm: 285094 TAKE 1/2 TABLET BY MOUTH DAILY WITH 3MG TABLET TO EQUAL 3.5MG DAILY 09/22/201404/2014 Inactive warfarin 1 mg tablet RxNorm: 997266 1/2 Tablet(s) PO daily 3.5mg 08/26/2014 2014 Inactive taking with a 3mg to make 3.5mg tablets Lasix 20 mg tablet RxNorm: 528609 1 Tablet(s) PO QDAY PRN 09/24/2014 Inactive Ok to fill 20mg, not 40mg as needed for swelling-take potassium when you take lasix buspirone 10 mg tablet RxNorm: 098436 1 Tablet(s) PO TID 201411/25/2014 Inactive takes it BID but if she feels anxious she takes one during the day Lasix 20 mg tablet RxNorm: 652704 1 Tablet(s) PO QDAY PRN 08/25/2014 Inactive as needed for swelling-take potassium when you take lasix warfarin 1 mg tablet RxNorm: 564355 1/2 Tablet(s) PO daily 3.5mg 08/15/2014 08/21/2014 Inactive taking with a 3mg to make 3.5mg tablets warfarin 3 mg tablet RxNorm: 190163 1 Tablet(s) PO daily 201410/11/2014 Inactive diltiazem 90 mg tablet RxNorm: 001362 1 Tablet(s) PO TID 201408/30/2015 Inactive warfarin 1 mg tablet RxNorm: 168243 1/2 Tablet(s) PO daily 3.5mg 08/05/2014 08/11/2014 Inactive taking with a 3mg to make 3.5mg tablets cyclobenzaprine 10 mg tablet RxNorm: 327953 1 Tablet(s) PO QHS 08/04/2014 11/01/2014 Inactive buspirone 10 mg tablet RxNorm: 685785 1 Tablet(s) PO QID 201408/21/2014 Inactive allopurinol 300 mg tablet RxNorm: 102314 1 Tablet(s) PO daily 08/04/2014 11/01/2014 Inactive clonazepam 0.5 mg tablet RxNorm: 076603 1 Tablet(s) PO daily 09/02/2014 Inactive omeprazole 20 mg capsule,delayed release RxNorm: 513362 1 Capsule(s) PO BID 08/04/2014 11/01/2014 Inactive atenolol 25 mg tablet RxNorm: 243621 1 Tablet(s) PO daily 201411/01/2014 Inactive warfarin 3 mg tablet RxNorm: 522997 1 Tablet(s) PO daily 201408/04/2014 Inactive diphenhydramine 2 % topical cream RxNorm: 9440199 1 Application TOP Q6 PRN 07/24/2014 01/29/2015 Inactive diltiazem 90 mg tablet RxNorm: 766303 1 Tablet(s) PO BID 201408/04/2014 Inactive cyclobenzaprine 10 mg tablet RxNorm: 577074 1 Tablet(s) PO QH 07/24/2014 08/03/2014 Inactive warfarin 2.5 mg tablet RxNorm: 909097 1 Tablet(s) PO daily 08/22/2014 Inactive [SAVINGS FOR NON-COVERED DRUGS -- BIN:[id number], PCN: ASPROD1, Group: XXXXX, ID# [id number], Questions: . THIS IS NOT INSURANCE.] losartan 25 mg tablet RxNorm: 878949 1 Tablet(s) PO daily 201401/29/2015 Inactive [SAVINGS FOR NON-COVERED DRUGS -- BIN:[id number], PCN: ASPROD1, Group: XXXXX, ID # [id number], Questions: . THIS IS NOT INSURANCE.] isosorbide mononitrate oral RxNorm: 6057 oral No Start Date Active diltiazem ER 360 mg tablet,extended release 24 hr RxNorm: 540556 1 Tablet(s) PO daily No Start Date Active benazepril 10 mg tablet RxNorm: 329709 1 Tablet(s) PO daily No Start Date 07/14/2014 Inactive lisinopril 10 mg tablet RxNorm: 171201 1 Tablet(s) PO daily No Start Date 04/24/2016 Inactive clonazepam 0.5 mg tablet RxNorm: 240893 1 Tablet(s) PO daily No Start Date 08/03/2014 Inactive diltiazem 90 mg tablet RxNorm: 442569 1 Tablet(s) PO daily No Start Date 07/23/2014 Inactive atenolol 25 mg tablet RxNorm: 360938 1 Tablet(s) PO daily No Start Date 08/03/2014 Inactive buspirone 10 mg tablet RxNorm: 891490 1 Tablet(s) PO QID No Start Date 08/03/2014 Inactive omeprazole 20 mg capsule,delayed release RxNorm: 976714 1 Capsule(s) PO BID No Start Date 08/03/2014 Inactive allopurinol 300 mg tablet RxNorm: 276112 1 Tablet(s) PO daily No Start Date 08/03/2014 Inactive Xarelto 20 mg tablet RxNorm: 7355455 1 Tablet(s) PO daily No Start Date 03/03/2015 Inactive warfarin 2 mg tablet RxNorm: 661339 1 Tablet(s) PO daily No Start Date 07/16/2014 Inactive cyanocobalamin (vit B-12) 1,000 mcg/mL injection solution RxNorm: 943312 1 Milliliter(s) Inj monthly No Start Date Inactive cyclobenzaprine 10 mg tablet RxNorm: 189668 1 Tablet(s) PO BID No Start Date 07/23/2014 Inactive Eliquis 2.5 mg tablet RxNorm: 4409560 1 Tablet(s) PO daily No Start Date 03/03/2015 Inactive Medication Administered Medication Codes Instructions Start Date Status Kenalog 40 mg/mL suspension for injection RxNorm: 1794604 1Milliliter 01/30/2015 No longer Active ceftriaxone 500 mg solution for injection RxNorm: 1632951 10/14/2014 No longer Active Kenalog 40 mg/mL suspension for injection RxNorm: 0044521 Milliliter 10/14/2014 No longer Active Immunizations Vaccine [...] behavioral disturbance ICD-10: F01.50 ICD-9: 290.40 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: Z79.01 ICD-9: V58.61 12/12/2017 Paroxysmal atrial fibrillation ICD-10: I48.0 ICD-9: 427.31 09/05/2017 Generalized anxiety disorder ICD-10: F41.1 ICD-9: 300.02 05/09/2017 Major depressive disorder, single episode, unspecified ICD- 10: F32.9 ICD-9: 311 05/09/2017 Other chest pain ICD-10: R07.89 ICD-9: [...] ICD-9: 477.0 01/30/2015 DYSURIA ICD-9: 788.1 11/07/2014 EDEMA ICD-9: 782.3 10/29/2014 Cough ICD-9: 786.2 10/29/2014 MUSCLE WEAKNESS-GENERAL ICD-9: 728.87 03/2014 Anticoagulated on Coumadin ICD-9: V58.83 10/29/2014 Low back pain ICD-9: 724.2 10/29/2014 DYSPHAGIA, PHARYNGEAL ICD-9: 787.23 10/29 Pneumonia ICD-9: 486 10/14/2014 DYSPHAGIA, NOS ICD-9: 787.20 10/14/2014 SLEEP RELATED LEG CRAMPS ICD-9: 327.52 ESSENTIAL HYPERTENSION ICD-9: 401.9 09/19 VITAMIN D DEFICIENCY ICD-9: 268.9 2014 ESOPHAGEAL REFLUX ICD-9: 530.81 2014 Atrial fibrillation ICD-9: 427.31 2014 LONG-TERM USE ANTICOAGUL ICD-9: V58.61 Skin irritation [...] Observation Code Item Item Code Result Date Metabolic Ord15 NA 139 mEq/L 03/28/2018 Metabolic [...] Metabolic Ord15 CALCIUM 9.3 mg/dL 03/28/2018 Pt Iaa7959 PT 31.7 seconds 03/28/2018 Pt Jwb3607 INR 3.1 03/28/2018 Pt Chm7408 Low Intensity - 1.5-2.0 03/28/2018 Pt Wcv1064 Mod intensity - 2.0-3.0 03/28/2018 Pt Zhz7159 Hi intensity - 3.0-4.0 03/28/2018 Metabolic Ord15 [...] Metabolic Ord15 CALCIUM 9.0 mg/dL 02/21/2018 Pt Cbe2810 PT 23.4 seconds 02/21/2018 Pt Xha2513 INR 2.1 02/21/2018 Pt Qfp6543 Low Intensity - 1.5-2.0 02/21/2018 Pt Ilp8486 Mod intensity - 2.0-3.0 02/21/2018 Pt Iyz6481 Hi intensity - 3.0-4.0 02/21/2018 Pt Ref9705 PT 27.0 seconds 01/15/2018 Pt Hsn6491 INR 2.5 01/15/2018 Pt Fmb7523 Low Intensity - 1.5-2.0 01/15/2018 Pt Uan0020 Mod intensity - 2.0-3.0 01/15/2018 Pt Zzc0955 Hi intensity - 3.0-4.0 01/15/2018 Metabolic Ord15 [...] 01/15/2018 Metabolic Ord15 CALCIUM 9.2 mg/dL 01/15/2018 Metabolic Ord15 NA 138 mEq/L 12/18/2017 Metabolic [...] 12/18/2017 Metabolic Ord15 CALCIUM 9.7 mg/dL 12/18/2017 Pt Byy2686 PT 29.3 seconds 12/18/2017 Pt Num3017 INR 2.8 12/18/2017 Pt Hgd7915 Low Intensity - 1.5-2.0 12/18/2017 Pt Ybf8543 Mod intensity - 2.0-3.0 12/18/2017 Pt Zqc1463 Hi intensity - 3.0-4.0 12/18/2017 Cbc With Differential Ord2 WBC 9.90 K/ul 09/29/2015 Cbc With Differential Ord2 RBC 3.64 M/ul 09/29/2015 Cbc With Differential Ord2 HGB 9.5 g/dl 09/29/2015 Cbc With Differential Ord2 HCT 30.6 % 09/29/2015 Cbc With Differential Ord2 Neut% 65.2 % 09/29/2015 Cbc With Differential Ord2 MCV 84.1 fl 09/29/2015 Cbc With Differential Ord2 Lymph% 14.2 % 09/29/2015 Cbc With Differential Ord2 MCH 26.1 pg 09/29/2015 Cbc With Differential Ord2 [place]% 18.3 % 09/29/2015 Cbc With Differential Ord2 MCHC 31.0 pg 09/29/2015 Cbc With Differential Ord2 Eos% 1.7 % 09/29/2015 Cbc With Differential Ord2 Baso% 0.6 % 09/29/2015 Cbc With Differential Ord2 PLT 380 K/ul 09/29/2015 Cbc With Differential Ord2 RDW 18.1 % 09/29/2015 Cbc With Differential Ord2 Neut ABS# 6.45 K/ul 09/29/2015 Cbc With Differential Ord2 Lymph ABS# 1.41 K/ul 09/29/2015 Cbc With Differential Ord2 [place] ABS# 1.8 K/ul 09/29/2015 Cbc With Differential Ord2 Eos ABS# 0.2 K/ul 09/29/2015 Cbc With Differential Ord2 Baso ABS# 0.1 K/ul 09/29/2015 Comp Metabolic Kdt544 NA 138 mEq/L 09/29/2015 Comp Metabolic Dhu792 K 4.6 mEq/L 09/29/2015 Comp Metabolic Igd572 CL 102 mEq/L 09/29/2015 Comp Metabolic Azf898 CO2 28.0 mEq/L 09/29/2015 Comp Metabolic Fmn944 ANION GAP 13 09/29/2015 Comp Metabolic Evm885 GLUCOSE 83 mg/dL 09/29/2015 Comp Metabolic Jhs344 Creat 1.1 mg/dL 09/29/2015 Comp Metabolic Qsn783 eGFR 52 ml/min/1.73m2 09/29/2015 Comp Metabolic Waw025 BUN 18 mg/dL 09/29/2015 Comp Metabolic Ejg746 B/C Ratio 16.7 Ratio 09/29/2015 Comp Metabolic Ner622 CALCIUM 9.6 mg/dL 09/29/2015 Comp Metabolic Onj933 ALK PHOS 188 U/L 09/29/2015 Comp Metabolic Pmo689 AST(SGOT) 19 U/L 09/29/2015 Comp Metabolic Xpy730 ALT(SGPT) 12 U/L 09/29/2015 Comp Metabolic Nhj535 BILI T 0.6 mg/dL 09/29/2015 Comp Metabolic Sbu100 ALBUMIN 4.0 g/dL 09/29/2015 Comp Metabolic Zlh310 TPRO 6.6 g/dL 09/29/2015 Comp Metabolic Opv760 GLOB 2.6 g/dL 09/29/2015 Comp Metabolic Dud009 A/G Ratio 1.5 Ratio 09/29/2015 Comp Metabolic Tkt956 Osmo 277 mOsmo 09/29/2015 Comp Metabolic Nai312 NA 134 mEq/L 09/22/2015 Comp Metabolic Cdk717 K 4.7 mEq/L 09/22/2015 Comp Metabolic Oka677 CL 98 mEq/L 09/22/2015 Comp Metabolic Tfl554 CO2 26.0 mEq/L 09/22/2015 Comp Metabolic Cev840 ANION GAP 15 09/22/2015 Comp Metabolic Nyo616 GLUCOSE 83 mg/dL 09/22/2015 Comp Metabolic Ntj140 Creat 1.1 mg/dL 09/22/2015 Comp Metabolic Ptd631 eGFR 52 ml/min/1.73m2 09/22/2015 Comp Metabolic Etm003 BUN 19 mg/dL 09/22/2015 Comp Metabolic Vxh444 B/C Ratio 17.8 Ratio 09/22/2015 Comp Metabolic Tbt324 CALCIUM 9.4 mg/dL 09/22/2015 Comp Metabolic Ngv279 ALK PHOS 182 U/L 09/22/2015 Comp Metabolic Fda435 AST(SGOT) 30 U/L 09/22/2015 Comp Metabolic Typ788 ALT(SGPT) 16 U/L 09/22/2015 Comp Metabolic Sii196 BILI T 0.8 mg/dL 09/22/2015 Comp Metabolic Elh502 ALBUMIN 3.9 g/dL 09/22/2015 Comp Metabolic Cfc042 TPRO 6.8 g/dL 09/22/2015 Comp Metabolic Wqy399 GLOB 2.9 g/dL 09/22/2015 Comp Metabolic Ytz989 A/G Ratio 1.3 Ratio 09/22/2015 Comp Metabolic Zcr841 Osmo 270 mOsmo 09/22/2015 Cbc With Differential [...] 25.7 pg 09/22/2015 Cbc With Differential Ord2 [place]% 15.4 % 09/22/2015 Cbc With Differential Ord2 MCHC 30.9 pg 09/22/2015 Cbc With Differential Ord2 Eos% 0.7 % 09/22/2015 Cbc With Differential Ord2 PLT 345 K/ul 09/22/2015 Cbc With Differential Ord2 Baso% 0.5 % 09/22/2015 Cbc With Differential Ord2 Neut ABS# 7.16 K/ul 09/22/2015 Cbc With Differential Ord2 RDW 18.5 % 09/22/2015 Cbc With Differential Ord2 Lymph ABS# 1.81 K/ul 09/22/2015 Cbc With Differential Ord2 [place] ABS# 1.7 K/ul 09/22/2015 Cbc With Differential [...] 66.1 % 06/02/2015 Cbc With Differential Ord2 Lymph% 16.5 % 06/02/2015 Cbc With Differential Ord2 MCV 88.0 fl 06/02/2015 Cbc With Differential Ord2 MCH 27.8 pg 06/02/2015 Cbc With Differential Ord2 [place]% 16.6 % 06/02/2015 Cbc With Differential Ord2 [...] 1.74 K/ul 06/02/2015 Cbc With Differential Ord2 [place] ABS# 1.8 K/ul 06/02/2015 Cbc With Differential Ord2 Eos ABS# 0.1 K/ul 06/02/2015 Cbc With Differential Ord2 Baso ABS# 0.0 K/ul 06/02/2015 Cbc With Differential Ord2 New Analyzer Notice Please note new ref ranges starting 03-11-2015 due to implemntation of new five part differential hematolgy analyzer. 06/02/2015 Comp Metabolic Hiv225 NA 132 mEq/L 06/02/2015 Comp Metabolic Xjn980 K 4.4 mEq/L 06/02/2015 Comp Metabolic Auy269 CL 94 mEq/L 06/02/2015 Comp Metabolic Kyd347 CO2 26.0 mEq/L 06/02/2015 Comp Metabolic Ucl926 ANION GAP 16 06/02/2015 Comp Metabolic Vdn244 GLUCOSE 97 mg/dL 06/02/2015 Comp Metabolic Kuz762 Creat 1.2 mg/dL 06/02/2015 Comp Metabolic Krp164 eGFR 46 ml/min/1.73m2 06/02/2015 Comp Metabolic Jsg233 BUN 19 mg/dL 06/02/2015 Comp Metabolic Lxe208 B/C Ratio 15.8 Ratio 06/02/2015 Comp Metabolic Zef983 CALCIUM 9.4 mg/dL 06/02/2015 Comp Metabolic Dom224 ALK PHOS 178 U/L 06/02/2015 Comp Metabolic Icg358 AST(SGOT) 32 U/L 06/02/2015 Comp Metabolic Vyx976 ALT(SGPT) 31 U/L 06/02/2015 Comp Metabolic Qyz696 BILI T 0.6 mg/dL 06/02/2015 Comp Metabolic Jnk765 ALBUMIN 4.0 g/dL 06/02/2015 Comp Metabolic Dlv100 TPRO 6.5 g/dL 06/02/2015 Comp Metabolic Xku243 GLOB 2.5 g/dL 06/02/2015 Comp Metabolic Aap046 A/G Ratio 1.6 Ratio 06/02/2015 Comp Metabolic Ykv625 Osmo 267 mOsmo 06/02/2015 Pt Aey8380 PT 21.8 seconds 06/02/2015 Pt Idt2331 INR 2.0 06/02/2015 Pt Rou0607 Low Intensity - 1.5-2.0 06/02/2015 Pt Pwh7240 Mod intensity - 2.0-3.0 06/02/2015 Pt Rzv5405 Hi intensity - 3.0-4.0 06/02/2015 Iron Ord72 Iron 39 ug/dl 04/01/2015 B12 Wnq924 B12 160.00 pg/ml 04/01/2015 Vitamin D 25 Oh Nhu1925 VITAMIN D, 25 HYDROXY 61.20 ng/mL Tsh Ord6 hTSH II 1.87 uIU/mL 03/31/2015 Pt Cle5228 PT 36.9 seconds 03/31/2015 Pt Zlw3942 INR 3.9 03/31/2015 Pt Chb6891 Low Intensity - 1.5-2.0 03/31/2015 Pt Lvw9604 Mod intensity - 2.0-3.0 03/31/2015 Pt Qhj8198 Hi intensity - 3.0-4.0 03/31/2015 Comp Metabolic Gxu444 NA 131 mEq/L 03/31/2015 Comp Metabolic Ozj428 K 5.3 mEq/L 03/31/2015 Comp Metabolic Sbb154 CL 97 mEq/L 03/31/2015 Comp Metabolic Eyg519 CO2 24.0 mEq/L 03/31/2015 Comp Metabolic Eyc145 ANION GAP 15 03/31/2015 Comp Metabolic Vqc411 GLUCOSE 84 mg/dL 03/31/2015 Comp Metabolic Awg354 Creat 1.3 mg/dL 03/31/2015 Comp Metabolic Cbf937 eGFR 42 ml/min/1.73m2 03/31/2015 Comp Metabolic Xnq348 BUN 26 mg/dL 03/31/2015 Comp Metabolic Ymu187 B/C Ratio 20.2 Ratio 03/31/2015 Comp Metabolic Vdq792 CALCIUM 9.4 mg/dL 03/31/2015 Comp Metabolic Nmv939 ALK PHOS 172 U/L 03/31/2015 Comp Metabolic Wqd776 AST(SGOT) 21 U/L 03/31/2015 Comp Metabolic Asu060 ALT(SGPT) 27 U/L 03/31/2015 Comp Metabolic Lck238 BILI T 0.5 mg/dL 03/31/2015 Comp Metabolic Irj823 ALBUMIN 4.0 g/dL 03/31/2015 Comp Metabolic Weo705 TPRO 6.8 g/dL 03/31/2015 Comp Metabolic Frl815 GLOB 2.8 g/dL 03/31/2015 Comp Metabolic Wxf504 A/G Ratio 1.4 Ratio 03/31/2015 Comp Metabolic Njh228 Osmo 267 mOsmo 03/31/2015 Cbc With Differential [...] 28.3 pg 03/31/2015 Cbc With Differential Ord2 [place]% 14.0 % 03/31/2015 Cbc With Differential Ord2 MCHC [...] 1.62 K/ul 03/31/2015 Cbc With Differential Ord2 [place] ABS# 1.6 K/ul 03/31/2015 Cbc With Differential [...] Ucult Complete No Growth Day 2 11/10/2014 Tsh Ord6 hTSH II 1.40 uIU/mL 09/19/2014 Vitamin D 25 Oh Zjw6975 VITAMIN D, 25 HYDROXY 14.13 ng/mL Comp Metabolic Oid677 NA 134 mEq/L 09/19/2014 Comp Metabolic Rmz032 K 4.7 mEq/L 09/19/2014 Comp Metabolic Oyy225 CL 98 mEq/L 09/19/2014 Comp Metabolic Wah157 CO2 27.0 mEq/L 09/19/2014 Comp Metabolic Aab244 ANION GAP 14 09/19/2014 Comp Metabolic Plz307 GLUCOSE 94 mg/dL 09/19/2014 Comp Metabolic Cus201 Creat 1.1 mg/dL 09/19/2014 Comp Metabolic Stk493 eGFR 49 ml/min/1.73m2 09/19/2014 Comp Metabolic Wdu836 BUN 14 mg/dL 09/19/2014 Comp Metabolic Jcn680 B/C Ratio 12.3 Ratio 09/19/2014 Comp Metabolic Ndg288 CALCIUM 9.7 mg/dL 09/19/2014 Comp Metabolic Oto933 ALK PHOS 150 U/L 09/19/2014 Comp Metabolic Iki647 AST(SGOT) 16 U/L 09/19/2014 Comp Metabolic Njx667 ALT(SGPT) 9 U/L 09/19/2014 Comp Metabolic Lfn909 BILI T 0.8 mg/dL 09/19/2014 Comp Metabolic Xji753 ALBUMIN 3.9 g/dL 09/19/2014 Comp Metabolic Hxw943 TPRO 6.8 g/dL 09/19/2014 Comp Metabolic Yts977 GLOB 2.9 g/dL 09/19/2014 Comp Metabolic Qtz614 A/G Ratio 1.3 Ratio 09/19/2014 Comp Metabolic Aep155 Osmo 268 mOsmo 09/19/2014 Cbc With Differential [...] 09/19/2014 Lipid Ord30 C/HDL 2.8 Ratio 09/19/2014 Pt Ikf4704 PT 29.1 seconds 09/19/2014 Pt Sea3670 INR 2.9 09/19/2014 Pt Zph2175 Low Intensity - 1.5-2.0 09/19/2014 Pt Uvt4499 Mod intensity - 2.0-3.0 09/19/2014 Pt Skz0243 Hi intensity - 3.0-4.0 09/19/2014 Magnesium Ord90 Mag 2.0 mg/dL 09/19/2014 Review of Systems System Result Effective [...] accomodation 03/15/2018 None Full Exam - General 1994 Ears/Nose/Throat otoscopic exam Overall: external auditory canals clear 03/15/2018 None Full Exam - General 1994 Ears/Nose/Throat otoscopic exam Overall: tympanic membranes clear 03/15/2018 None Full Exam - General 1994 Ears/Nose/Throat lips/teeth/gingiva Overall: benign lips 03/15/2018 None [...] Model/CDA Sections, Assigned to/Indira Ibanez SNOMED CT: [id number] CPT-4: 53565Lkcqhce 12/10/2015 TRIAMCINOLONE ACET INJ NOS CPT-4: J3301 01/30/2015 URINALYSIS NONAUTO W/O SCOPE CPT-4: 32989 11/07/2014 ROCEPHIN, PER 250 MG CPT-4: J0696 10/14/2014 TRIAMCINOLONE ACET INJ NOS CPT-4: J3301 10/14/2014 Vital Signs Date Vital 03/27/2018 Blood Pressure 1: 120/62 Code : 8480-6 Heart Rate 1: 58 bpm Height: 5'2" SpO2: 98% Weight: 03/15/2018 Blood Pressure 1: 146/60 Code : 8480-6 BMI: 25.2 Code : 30976-6 Heart Rate 1 : 79 bpm Height: 5'2" SpO2: 98% Weight: 138 lbs 12/12/2017 Blood Pressure 1: 130/60 Code : 8480-6 BMI: 25.2 Code : 46918-1 Heart Rate 1 : 60 bpm Height: 5'2" SpO2: 98% Weight: 138 lbs 09/05/2017 Blood Pressure 1: 108/46 Code : 8480-6 BMI: 24.0 Code : 67617-1 Heart Rate 1 : 70 bpm Height: 5'2" SpO2: 96% Weight: 131 lbs 05/09/2017 Blood Pressure 1: 122/82 Code : 8480-6 BMI: 25.2 Code : 99564-3 Heart Rate 1 : 72 bpm Height: 5'2" SpO2: 95% Weight: 138 lbs 03/07/2017 Blood Pressure 1: 108/52 Code : 8480-6 BMI: 27.6 Code : 20946-5 Heart Rate 1 : 72 bpm Height: 5'2" SpO2: 96% Weight: 151 lbs 01/24/2017 Blood Pressure 1: 126/60 Code : 8480-6 BMI: 27.1 Code : 90659-3 Heart Rate 1 : 60 bpm Height: [...] Code : 8480-6 BMI: 26.8 Code : 15092-4 Heart Rate 1 : 59 bpm Height: 5'2" SpO2: 97% Weight: 146 lbs 8 oz 05/10/2016 Blood Pressure 1: 120/56 Code : 8480-6 BMI: 27.1 Code : 36948-5 Heart Rate 1 : 63 bpm Height: 5'2" SpO2: 97% Weight: 148 lbs 04/25/2016 Blood Pressure 1: 134/66 Code : 8480-6 BMI: 24.9 Code : 48633-8 Heart Rate 1 : 118 bpm Height: 5'2" SpO2: 93% Temperature: 36.8 (C) / 98.3 (F) Weight: 136 lbs 01/14/2016 Blood Pressure 1: 132/78 Code : 8480-6 BMI: 25.6 Code : 72215-1 Heart Rate 1 : 97 bpm Height: 5'2" SpO2: 95% Weight: 140 lbs 12/10/2015 Blood Pressure 1: 118/72 Code : 8480-6 BMI: 26.2 Code : 54653-3 Heart Rate 1 : 68 bpm Height: 5'2" SpO2: 95% Weight: 143 lbs 11/12/2015 Blood Pressure 1: 140/80 Code : 8480-6 BMI: 25.6 Code : 49662-2 Heart Rate 1 : 77 bpm Height: 5'2" SpO2: 93% Weight: 140 lbs 10/08/2015 Blood Pressure 1: 132/60 Code : 8480-6 BMI: 26.2 Code : 69827-5 Heart Rate 1 : 77 bpm Height: 5'2" SpO2: 96% Weight: 143 lbs 09/29/2015 Blood Pressure 1: 130/62 Code : 8480-6 BMI: 27.1 Code : 57897-3 Heart Rate 1 : 86 bpm Height: 5'2" SpO2: 93% Weight: 148 lbs 09/22/2015 Blood Pressure 1: 164/72 Code : 8480-6 BMI: 28.2 Code : 07488-7 Heart Rate 1 : 79 bpm Height: 5'2" SpO2: 92% Weight: 154 lbs 07/21/2015 Blood Pressure 1: 124/70 Code : 8480-6 BMI: 24.5 Code : 02896-5 Heart Rate 1 : 71 bpm Height: 5'2" SpO2: 98% Weight: 134 lbs 06/23/2015 Blood Pressure 1: 122/68 Code : 8480-6 BMI: 25.4 Code : 15864-6 Heart Rate 1 : 78 bpm Height: 5'2" SpO2: 92% Weight: 139 lbs 06/12/2015 Blood Pressure 1: 154/62 Code : 8480-6 BMI: 27.4 Code : 29768-4 Heart Rate 1 : 87 bpm Height: 5'2" SpO2: 94% Weight: 150 lbs 06/02/2015 Blood Pressure 1: 140/68 Code : 8480-6 Heart Rate 1: 90 bpm SpO2: 91% Weight: 142 lbs 03/31/2015 Blood Pressure 1: 120/56 Code : 8480-6 BMI: 23.6 Code : 37272-3 Heart Rate 1 : 82 bpm Height: 5'2" SpO2: 98% Weight: 129 lbs 01/30/2015 Blood Pressure 1: 108/62 Code : 8480-6 BMI: 22.1 Code : 48723-3 Heart Rate 1 : 8299 bpm Height: 5'2 " SpO2: 99% Weight: 121 lbs 12/22/2014 Blood Pressure 1: 130/70 Code : 8480-6 BMI: 21.8 Code : 43992-0 Heart Rate 1 : 106 bpm Height: 5'2" SpO2: 98% Weight: 119 lbs 10/29/2014 Blood Pressure 1: 118/58 Code : 8480-6 BMI: 23.2 Code : 84202-0 Heart Rate 1 : 74 bpm Height: 5'2" SpO2: 93% Weight: 127 lbs 10/14/2014 Blood Pressure 1: 128/64 Code : 8480-6 BMI: 22.9 Code : 42371-3 Heart Rate 1 : 79 bpm Height: 5'2" SpO2: 93% Temperature: 35.9 (C) / 96.6 (F) Weight: 125 lbs 09/19/2014 Blood Pressure 1: 132/72 Code : 8480-6 BMI: 22.9 Code : 83722-3 Heart Rate 1 : 84 bpm Height: 5'2" SpO2: 96% Weight: 125 lbs 08/22/2014 Blood Pressure 1: 124/72 Code : 8480-6 BMI: 23.0 Code : 19771-9 Heart Rate 1 : 64 bpm Height: 5'2" Weight: 126 lbs 08/04/2014 Blood Pressure 1: 126/86 Code : 8480-6 BMI: 23.6 Code : 79825-7 Height: 5'2" Respiratory Rate: 20 bpm Weight: 129 lbs 07/24/2014 Blood Pressure 1: 116/72 Code : 8480-6 BMI: 23.6 Code : 52397-6 Heart Rate 1 : 74 bpm Height: 5'2" Weight: 129 lbs 07/15/2014 Blood Pressure 1: 132/78 Code : 8480-6 BMI: 24.1 Code : 13758-8 Heart Rate 1 : 74 bpm Height: [...] data Encounters Encounter Performer Location Codes Date ([id number]) 13830 EST. PATIENT, LEVEL IV Diagnosis: Essential (primary) hypertension[ICD10: I10] Diagnosis: Localized edema[ICD10: R60.0] Diagnosis: Right lower quadrant pain[ICD10: R10.31] Merle Daigle MD, [facility] CPT-4: 80671 03/27/2018 [id number]) [id number] EST. PATIENT, LEVEL IV Diagnosis: Right lower quadrant pain[ICD10: R10.31] Diagnosis: Diarrhea, unspecified[ICD10: R19.7] Diagnosis: Essential (primary) hypertension[ICD10: I10] Diagnosis: Low back pain[ICD10: M54.5] Diagnosis: Gastro-esophageal reflux disease without esophagitis[ICD10: K21.9] Merle Daigle MD, [facility] CPT-4: 44393 03/15/2018 [id number]) 32966 EST. 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 PATIENT, LEVEL IV Diagnosis: Essential (primary) hypertension[ICD10: I10] Diagnosis: Generalized anxiety disorder[ICD10: F41.1] Diagnosis: Major depressive disorder, single episode, unspecified[ICD10: F32.9] Diagnosis: Localized edema[ICD10: R60.0] Veronica Daigle MD, [facility] CPT- 4: 87106 05/09/2017 ([id number]) 08498 EST. PATIENT, LEVEL IV Diagnosis: Essential (primary) hypertension[ICD10: I10] Diagnosis: Paroxysmal atrial fibrillation[ICD10: I48.0] Diagnosis: Generalized anxiety disorder[ICD10: F41.1] Diagnosis: Localized edema[ICD10: R60.0] Veronica Daigle MD, [facility] CPT- 4: 84210 03/07/2017 ([id number]) 21415 EST. PATIENT, LEVEL IV Diagnosis: Generalized anxiety disorder[ICD10: F41.1] Diagnosis: Major depressive disorder, single episode, unspecified[ICD10: F32.9] Diagnosis: Essential (primary) hypertension[ICD10: I10] Diagnosis: Paroxysmal atrial fibrillation[ICD10: I48.0] Merle Daigle MD, [facility] CPT-4: 92601 01/24/2017 74826 EST. PATIENT, LEVEL IV Diagnosis: Other chest pain[ICD10: R07.89] Diagnosis: Other malaise[ICD10: R53.81] Opal Daigle MD, [facility] CPT-4 : 71750 09/29/2016 [id number] 44223 EST. PATIENT, LEVEL IV Diagnosis: Essential (primary) hypertension[ICD10: I10] Diagnosis: Paroxysmal atrial fibrillation[ICD10: I48.0] Diagnosis: Localized edema[ICD10: R60.0] Diagnosis: Generalized anxiety disorder[ICD10: F41.1] Diagnosis: Low back pain[ICD10: M54.5] Merle Daigle MD, [facility] CPT-4: 14821 09/13/2016 ([id number]) 43927 EST. PATIENT, LEVEL III Diagnosis: Essential (primary) hypertension[ICD10: I10] Diagnosis: Paroxysmal atrial fibrillation[ICD10: I48.0] Merle Daigle MD, [facility] CPT-4: 09076 05/31/2016 ([id number]) 60115 EST. PATIENT, LEVEL III Diagnosis: Essential (primary) hypertension[ICD10: I10] Diagnosis: Localized edema[ICD10: R60.0] Merle Daigle MD, [facility] CPT-4: 04551 05/10/2016 ([id number]) 91682 EST. PATIENT, LEVEL IV Diagnosis: Paroxysmal atrial fibrillation[ICD10: I48.0] Diagnosis: Essential (primary) hypertension[ICD10: I10] Diagnosis: Generalized anxiety disorder[ICD10: F41.1] Merle Daigle MD, [facility] CPT-4: 00164 04/25/2016 ([id number]) 50165 EST. PATIENT, LEVEL IV Diagnosis: Generalized anxiety disorder[ICD10: F41.1] Diagnosis: Essential (primary) hypertension[ICD10: I10] Diagnosis: Paroxysmal atrial fibrillation[ICD10: I48.0] Diagnosis: Localized edema[ICD10: R60.0] Diagnosis: Acute recurrent maxillary sinusitis[ICD10: J01.01] Merle Daigle MD, [facility] CPT-4: 18353 01/14/2016 ([id number]) 34459 EST. PATIENT, LEVEL IV Diagnosis: Essential (primary) hypertension[ICD10: I10] Diagnosis: Generalized anxiety disorder[ICD10: F41.1] Diagnosis: Localized edema[ICD10: R60.0] Diagnosis: Encounter for immunization[ICD10: Z23] Merle Daigle MD, [facility] CPT-4: 14080 12/10/2015 ([id number]) 17874 EST. PATIENT, LEVEL III Diagnosis: Essential (primary) hypertension[ICD10: I10] Diagnosis: Localized edema[ICD10: R60.0] Merle Daigle MD, [facility] CPT-4: 79042 11/12/2015 ([id number]) 15967 EST. PATIENT, LEVEL III Diagnosis: Essential (primary) hypertension[ICD10: I10] Diagnosis: Localized edema[ICD10: R60.0] Merle Daigle MD, [facility] CPT-4: 27928 10/08/2015 ([id number]) 61646 EST. PATIENT, LEVEL III Diagnosis: Localized edema[ICD10: R60.0] Diagnosis: Essential (primary) hypertension[ICD10: I10] Merle Daigle MD, [facility] CPT-4: 06557 09/29/2015 ([id number]) 57659 EST. PATIENT, LEVEL IV Diagnosis: Localized edema[ICD10: R60.0] Diagnosis: Essential (primary) hypertension[ICD10: I10] Diagnosis: Paroxysmal atrial fibrillation[ICD10: I48.0] Merle Daigle MD, [facility] CPT-4: 42132 09/22/2015 ([id number]) 58682 EST. PATIENT, LEVEL III Diagnosis: Essential (primary) hypertension[ICD10: I10] Diagnosis: Paroxysmal atrial fibrillation[ICD10: I48.0] Merle Daigle MD, [facility] CPT-4: 32079 07/21/2015 ([id number]) 85573 EST. 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 PATIENT, LEVEL IV Diagnosis: Essential (primary) hypertension[ICD10: I10] Diagnosis: Paroxysmal atrial fibrillation[ICD10: I48.0] Diagnosis: Localized edema[ICD10: R60.0] Diagnosis: Encounter for therapeutic drug level monitoring[ICD10: Z51.81] Merle Daigle MD, [facility] CPT-4: 75632 06/02/2015 ([id number]) 04001 EST. 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 PATIENT, LEVEL III Diagnosis: Essential (primary) hypertension[ICD10: I10] Diagnosis: Allergic rhinitis due to pollen[ICD10: J30.1] Merle Daigle MD, [facility] CPT-4: 67421 01/30/2015 [id number] EST. PATIENT, LEVEL III Diagnosis: Localized edema[ICD10: R60.0] Diagnosis: Diarrhea, unspecified[ICD10: R19.7] Veronica Daigle MD, [facility] CPT-4: 80007 12/22/2014 [id number]) [id number] EST. PATIENT, LEVEL IV Diagnosis: DYSPHAGIA, PHARYNGEAL[ICD9: 787.23] Diagnosis: Low back pain[ICD9: 724.2] Diagnosis: Cough[ICD9: 786.2] Diagnosis: Anticoagulated on Coumadin[ICD9: V58.83] Diagnosis: MUSCLE WEAKNESS-GENERAL[ICD9: 728.87] Diagnosis: EDEMA[ICD9: 782.3] [facility] CPT-4: 78243 10/29/2014 ([id number]) 06992 EST. PATIENT, LEVEL IV Diagnosis: Low back pain[ICD9: 724.2] Diagnosis: Pneumonia[ICD9: 486] Diagnosis: Cough[ICD9: 786.2] Diagnosis: Anticoagulated on Coumadin[ICD9: V58.83] Diagnosis: DYSPHAGIA, NOS[ICD9: 787.20] Diagnosis: MUSCLE WEAKNESS-GENERAL[ICD9: 728.87] Merle Daigle MD, [facility] CPT-4: 75497 10/14/2014 ([id number]) 56299 EST. PATIENT, LEVEL IV Diagnosis: ESSENTIAL HYPERTENSION[ICD9: 401.9] Diagnosis: ESOPHAGEAL REFLUX[ICD9: 530.81] Diagnosis: SLEEP RELATED LEG CRAMPS[ICD9: 327.52] Diagnosis: Atrial fibrillation[ICD9: 427.31] Diagnosis: Anticoagulated on Coumadin[ICD9: V58.83] Diagnosis: VITAMIN D DEFICIENCY[ICD9: 268.9] Merle Daigle MD, [facility] CPT-4: 56707 09/19/2014 ([id number]) 20988 EST. PATIENT, LEVEL III Diagnosis: EDEMA[ICD9: 782.3] Diagnosis: LONG-TERM USE ANTICOAGUL[ICD9: V58.61] Merle Daigle MD, [facility] CPT-4: 92029 08/22/2014 ([id number]) [id number] EST. PATIENT, LEVEL IV Diagnosis: Skin irritation[ICD9: 709.9] Diagnosis: ESSENTIAL HYPERTENSION[ICD9: 401.9] Diagnosis: Anticoagulated on Coumadin[ICD9: V58.83] Diagnosis: DEPRESSIVE DISORDER NEC[ICD9: 311] Yumiko Daigle MD, [facility] CPT-4: 42700 08/04/2014 ([id number]) 16208 EST. PATIENT, LEVEL III Diagnosis: Skin irritation[ICD9: 709.9] Veronica Daigle MD, [facility] CPT- 4: 81208 07/24/2014 ([id number]) OFFICE/OUTPATIENT VISIT NEW Diagnosis: ESSENTIAL HYPERTENSION[ICD9: 401.9] Diagnosis: COUGH[ICD9: 786.2] Diagnosis: Atrial fibrillation[ICD9: 427.31] Diagnosis: LONG-TERM USE ANTICOAGUL[ICD9: V58.61] Diagnosis: DEPRESSIVE DISORDER NEC[ICD9: 311] [facility]onica [facility]igle [facility] CPT-4: 16735 07/15/2014 Plan of Care Planned Activity Notes [...] symptoms return 03/27/2018 Appointment: Merle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
--- OUTSIDE RECORDS SUMMARY | 2018-04-18 23:39 | XMS REPORT | CCD ---
Author Author [facility] Organization [facility] Address [address] [place] [address] Phone Care Team Providers Care Customer Service Correspondence Clerk Name Role Phone PP Unavailable CCM Unavailable Summary Purpose Interface Exchange Insurance Providers Payer name Policy type / Coverage type Covered democrat ID Effective Begin Date Effective End Date WPS Medicare Part B Medicare Part B [id number] Unknown Family history Mother Diagnosis Age At Onset Hypertension Unknown Heart Attack Unknown Social History Social History Element Codes Description Effective Dates Marital status Unknown 07/15/2014 Marital status Unknown 07/15/2014 Number of children Unknown 0 07/15/2014 Number of children Unknown 0 07/15/2014 Employment Unknown Retired 07/15/2014 Employment Unknown Retired 07/15/[address]: 084050616 Has never smoked or chewed tobacco 07/15/[address]: 696983403 Has never smoked or chewed tobacco 07/15/[address]: 841024345 Never drinks alcohol 07/15/[address]: 721537327 Never drinks alcohol 07/15/2014 Allergies, Adverse Reactions, [...] ICD-9: 724.2 ICD-10: M54.5 Active 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 ICD-9: V58.61 ICD-10: [...] pain ICD-9: 724.2 ICD-10: M54.5 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/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 ICD-9: V58.61 ICD-10: [...] Fill Instructions buspirone 10 mg tablet RxNorm: 989307 TAKE ONE TABLET BY MOUTH THREE TIMES A DAY 03/21/2018 07/18/2018 Active hydrocodone 7.5 mg-acetaminophen 325 mg tablet RxNorm: 511374 1 Tablet(s) PO daily as needed pain 03/15/20182018 Active Flagyl 500 mg tablet RxNorm: 511401 1 Tablet(s) PO TID 201803/24/2018 Inactive potassium chloride ER 10 mEq tablet,extended release RxNorm: 364379 TAKE TWO TABLETS BY MOUTH THREE TIMES A DAY 02/28/2018 07/27/2018 Active hydrocodone 7.5 mg-acetaminophen 325 mg tablet RxNorm: 336276 1 Tablet(s) PO daily as needed pain 02/01/20182018 Inactive Xanax 0.25 mg tablet RxNorm: 259639 1 Tablet(s) PO TID as needed anxiety 01/01/2018 01/20/2018 Inactive hydrocodone 7.5 mg-acetaminophen 325 mg tablet RxNorm: 657402 1 Tablet(s) PO daily as needed pain 12/12/20172017 Inactive cyanocobalamin (vit B-12) 1,000 mcg/mL injection solution RxNorm: 230151 INJECT 1 ML INTRAMUSCULARLY 2 TIMES A MONTH FOR 2 MONTHS, THEN ONCE A MONTH THEREAFTER 11/28/2017 01/22/2018 Inactive hydrocodone 7.5 mg-acetaminophen 325 mg tablet RxNorm: 378225 1-2 Tablet(s) PO Q4- 6H as needed pain 11/21/2017 12/11/2017 Inactive Lasix 40 mg tablet RxNorm: 330181 TAKE ONE TABLET BY MOUTH DAILY 10/23/2017 04/20/2018 Active Lexapro 5 mg tablet RxNorm: 892830 TAKE ONE TABLET BY MOUTH EVERY EVENING 10/23/2017 12/21/2017 Inactive buspirone 10 mg tablet RxNorm: 668722 TAKE ONE TABLET BY MOUTH THREE TIMES A DAY 10/02/2017 02/28/2018 Inactive omeprazole 20 mg capsule,delayed release RxNorm: 810763 TAKE ONE CAPSULE BY MOUTH TWICE A DAY 09/13/2017 03/11/2018 Inactive Levaquin 750 mg tablet RxNorm: 202598 1 tab every other day for 5 doses 1 Tablet(s ) PO 08/29/2017 08/28/2017 Inactive Levaquin 750 mg tablet RxNorm: 315492 1 tab every other day for 5 doses 1 Tablet(s ) PO 08/29/2017 09/02/2017 Inactive hydrocodone 7.5 mg-acetaminophen 325 mg tablet RxNorm: 419290 1-2 Tablet(s) PO Q4- 6H as needed pain 08/28/2017 09/26/2017 Inactive potassium chloride ER 10 mEq tablet,extended release RxNorm: 580130 TAKE TWO TABLETS BY MOUTH THREE TIMES A DAY 08/28/2017 12/25/2017 Inactive metoprolol tartrate 25 mg tablet RxNorm: 405638 TAKE 1/2 TABLET BY MOUTH TWO TIMES A DAY 07/25/2017 07/19/2018 Active Lexapro 5 mg tablet RxNorm: 096721 TAKE ONE TABLET BY MOUTH EVERY EVENING 07/21/2017 10/18/2017 Inactive hydrocodone 7.5 mg-acetaminophen 325 mg tablet RxNorm: 193506 1-2 Tablet(s) PO Q4- 6H as needed pain 07/19/2017 08/17/2017 Inactive hydrocodone 7.5 mg-acetaminophen 325 mg tablet RxNorm: 299533 1-2 Tablet(s) PO Q4- 6H as needed pain 07/03/2017 07/18/2017 Inactive hydrocodone 7.5 mg-acetaminophen 325 mg tablet RxNorm: 800239 1-2 Tablet(s) PO Q4- 6H as needed pain 05/25/2017 06/23/2017 Inactive cyanocobalamin (vit B-12) 1,000 mcg/mL injection solution RxNorm: 136703 INJECT 1 ML INTRAMUSCULARLY 2 TIMES A MONTH FOR 2 MONTHS, THEN ONCE A MONTH THEREAFTER 05/19/2017 08/10/2017 Inactive warfarin 5 mg tablet RxNorm: 300109 TAKE ONE TABLET BY MOUTH DAILY 04/26/2017 04/20/2018 Active buspirone 10 mg tablet RxNorm: 008896 TAKE ONE TABLET BY MOUTH THREE TIMES A DAY 04/26/2017 09/22/2017 Inactive Xanax 0.25 mg tablet RxNorm: 268331 1 Tablet(s) PO TID as needed anxiety 04/17/2017 05/14/2017 Inactive Levaquin 500 mg tablet RxNorm: 895211 1 Tablet(s) PO Q72H x3 doses 04/11/2017 04/10/2017 Inactive Levaquin 500 mg tablet RxNorm: 266318 1 Tablet(s) PO Q72H x3 doses 04/11/2017 07/03/2017 Inactive potassium chloride ER 10 mEq tablet,extended release RxNorm: 110492 TAKE TWO TABLETS BY MOUTH THREE TIMES A DAY 03/27/2017 08/23/2017 Inactive Tamiflu 75 mg capsule RxNorm: 424647 1 Capsule(s) PO BID 201707/03/2017 Inactive Zofran 4 mg tablet RxNorm: 332685 1 Tablet(s) PO QID as needed nausea 03/23/2017 06/20/2017 Inactive Zofran 4 mg tablet RxNorm: 682261 1 Tablet(s) PO QID as needed nausea 03/23/2017 03/22/2017 Inactive Tamiflu 75 mg capsule RxNorm: 203100 1 Capsule(s) PO BID 201703/22/2017 Inactive lisinopril 10 mg tablet RxNorm: 785465 TAKE ONE-HALF TABLET BY MOUTH DAILY 03/10/2017 06/02/2018 Active metolazone 5 mg tablet RxNorm: 750200 1 Tablet(s) PO TIW 201703/01/2018 Inactive hydrocodone 7.5 mg-acetaminophen 325 mg tablet RxNorm: 311999 1-2 Tablet(s) PO Q4- 6H as needed pain 02/23/2017 05/24/2017 Inactive omeprazole 20 mg capsule,delayed release RxNorm: 255500 Capsule(s) TAKE ONE CAPSULE BY MOUTH TWICE A DAY 02/08/2017 Inactive metolazone 5 mg tablet RxNorm: 386865 TAKE 1 TABLET BY MOUTH TWICE WEEKLY 02/08/2017 03/06/2017 Inactive Lexapro 5 mg tablet RxNorm: 455829 1 Tablet(s) PO QPM 201603/06/2017 Inactive hydrocodone 7.5 mg-acetaminophen 325 mg tablet RxNorm: 314106 1-2 Tablet(s) PO Q4- 6H as needed pain 01/16/2017 02/22/2017 Inactive Lasix 40 mg tablet RxNorm: 820381 TAKE ONE TABLET BY MOUTH DAILY 01/11/2017 10/07/2017 Inactive metoprolol tartrate 25 mg tablet RxNorm: 938193 TAKE 1/2 TABLET BY MOUTH TWO TIMES A DAY 01/11/2017 07/09/2017 Inactive allopurinol 300 mg tablet RxNorm: 714972 TAKE ONE TABLET BY MOUTH DAILY 01/09/2017 06/07/2017 Inactive hydrocodone 7.5 mg-acetaminophen 325 mg tablet RxNorm: 337041 1-2 Tablet(s) PO Q4- 6H as needed pain 12/06/2016 01/15/2017 Inactive lisinopril 10 mg tablet RxNorm: 368355 TAKE ONE-HALF TABLET BY MOUTH DAILY 12/02/2016 03/09/2017 Inactive buspirone 10 mg tablet RxNorm: 939124 TAKE ONE TABLET BY MOUTH THREE TIMES A DAY 10/25/2016 01/22/2017 Inactive buspirone 10 mg tablet RxNorm: 414863 TAKE ONE TABLET BY MOUTH THREE TIMES A DAY 10/25/2016 10/24/2016 Inactive hydrocodone 7.5 mg-acetaminophen 325 mg tablet RxNorm: 405111 1-2 or 2 Tablet(s) PO Q4-6H as needed pain 10/25/20162016 Inactive cyanocobalamin (vit B-12) 1,000 mcg/mL injection solution RxNorm: 050862 INJECT 1 ML INTRAMUSCULARLY 2 TIMES A MONTH FOR 2 MONTHS, THEN ONCE A MONTH THEREAFTER 10/24/2016 02/12/2017 Inactive metolazone 5 mg tablet RxNorm: 769563 TAKE 1 TABLET BY MOUTH TWICE WEEKLY 09/23/2016 01/12/2017 Inactive hydrocodone 7.5 mg-acetaminophen 325 mg tablet RxNorm: 459608 1-2 or 2 Tablet(s) PO Q4-6H as needed pain 09/13/20162016 Inactive Keflex 500 mg capsule RxNorm: 302775 1 Capsule(s) PO TID 201609/15/2016 Inactive Take with a probiotic BID Keflex 500 mg capsule RxNorm: 203847 1 Capsule(s) PO TID 201609/08/2016 Inactive Take with a probiotic BID metoprolol tartrate 25 mg tablet RxNorm: 852517 TAKE 1/2 TABLET BY MOUTH TWO TIMES A DAY 09/07/2016 01/04/2017 Inactive potassium chloride ER 10 mEq tablet,extended release RxNorm: 305936 TAKE TWO TABLETS BY MOUTH THREE TIMES A DAY 09/01/2016 02/27/2017 Inactive hydrocodone 7.5 mg-acetaminophen 325 mg tablet RxNorm: 363084 1 or 2 Tablet(s) PO Q4-6H as needed pain 08/31/20162016 Inactive omeprazole 20 mg capsule,delayed release RxNorm: 592240 TAKE ONE CAPSULE BY MOUTH TWICE A DAY 08/24/2016 02/07/2017 Inactive hydrocodone 7.5 mg-acetaminophen 325 mg tablet RxNorm: 611323 1 or 2 Tablet(s) PO Q4-6H as needed pain 08/05/20162016 Inactive lisinopril 10 mg tablet RxNorm: 300583 TAKE ONE-HALF TABLET BY MOUTH DAILY 07/28/2016 12/01/2016 Inactive hydrocodone 7.5 mg-acetaminophen 325 mg tablet RxNorm: 169293 1 or 2 Tablet(s) PO Q4-6H as needed pain 07/05/20162016 Inactive allopurinol 300 mg tablet RxNorm: 068832 TAKE ONE TABLET BY MOUTH DAILY 06/16/2016 12/12/2016 Inactive metoprolol tartrate 25 mg tablet RxNorm: 088848 TAKE 1/2 TABLET BY MOUTH TWO TIMES A DAY 06/16/2016 08/14/2016 Inactive buspirone 10 mg tablet RxNorm: 090150 TAKE ONE TABLET BY MOUTH THREE TIMES A DAY 06/15/2016 10/12/2016 Inactive hydrocodone 7.5 mg-acetaminophen 325 mg tablet RxNorm: 537637 1 or 2 Tablet(s) PO Q4-6H as needed pain 06/07/20162016 Inactive metoprolol tartrate 25 mg tablet RxNorm: 684316 1/2 Tablet(s) PO QPM 05/10/2016 06/08/2016 Inactive lisinopril 10 mg tablet RxNorm: 087305 1/2 Tablet(s) PO daily 04/26/2016 07/27/2016 Inactive hydrocodone 7.5 mg-acetaminophen 325 mg tablet RxNorm: 931518 1 or 2 Tablet(s) PO Q4-6H as needed pain 04/25/20162016 Inactive lisinopril 10 mg tablet RxNorm: 206779 1/2 Tablet(s) PO daily 04/25/2016 04/25/2016 Inactive metoprolol tartrate 25 mg tablet RxNorm: 422623 1/2 Tablet(s) PO BID 04/25/2016 05/09/2016 Inactive allopurinol 300 mg tablet RxNorm: 682195 TAKE ONE TABLET BY MOUTH DAILY 04/19/2016 06/15/2016 Inactive metolazone 5 mg tablet RxNorm: 361046 TAKE 1 TABLET BY MOUTH TWICE WEEKLY 04/19/2016 09/05/2016 Inactive potassium chloride ER 10 mEq tablet,extended release RxNorm: 255206 2 Tablet(s) PO TID 03/21/2016 08/17/2016 Inactive warfarin 5 mg tablet RxNorm: 330655 1 Tablet(s) PO daily TAKE ONE TABLET BY MOUTH DAILY 03/21/2016 03/15/[address] Echevarria manages potassium chloride ER 10 mEq tablet,extended release(part/ cryst) RxNorm: 5525473 2 Tablet(s) PO TID 03/11/2016 03/20/2016 Inactive Xanax 0.25 mg tablet RxNorm: 871708 1 Tablet(s) PO TID as needed anxiety 03/10/2016 04/06/2016 Inactive Xanax 0.25 mg tablet RxNorm: 003505 1 Tablet(s) PO TID as needed anxiety 03/10/2016 12/31/2017 Inactive hydrocodone 7.5 mg-acetaminophen 325 mg tablet RxNorm: 652598 1 or 2 Tablet(s) PO Q4-6H as needed pain 02/26/20162016 Inactive Flonase Allergy Relief 50 mcg/actuation nasal spray, suspension RxNorm: 3169333 1 [place] NASAL each nare daily 01/19/2016 03/18/2016 Inactive cefdinir 300 mg capsule RxNorm: 700915 1 Capsule(s) PO BID 01/23/2016 Inactive take probiotic BID x 7 days Flonase Allergy Relief 50 mcg/actuation nasal spray, suspension RxNorm: 6741189 1 [place] NASAL each nare daily 01/19/2016 01/18/2016 Inactive allopurinol 300 mg tablet RxNorm: 776851 TAKE ONE TABLET BY MOUTH DAILY 01/18/2016 04/16/2016 Inactive Lasix 40 mg tablet RxNorm: 286978 1 Tablet(s) PO daily 201501/07/2017 Inactive (this was only twice daily x1 week) now it's daily cefdinir 300 mg capsule RxNorm: 408074 1 Capsule(s) PO BID 01/17/2016 Inactive take probiotic BID x 7 days cefdinir 300 mg capsule RxNorm: 113768 1 Capsule(s) PO BID 01/10/2016 Inactive buspirone 10 mg tablet RxNorm: 094636 TAKE ONE TABLET BY MOUTH THREE TIMES A DAY 01/11/2016 06/08/2016 Inactive hydrocodone 7.5 mg-acetaminophen 325 mg tablet RxNorm: 807113 1 or 2 Tablet(s) PO Q4-6H as needed pain 12/28/20152015 Inactive potassium chloride ER 10 mEq tablet,extended release(part/ cryst) RxNorm: 3950183 2 po TID x 2 days then 2 po BID Tablet(s) 12/28/2015 03/10/2016 Inactive potassium chloride ER 10 mEq tablet,extended release(part/ cryst) RxNorm: 2010517 TAKE ONE TABLET BY MOUTH TWICE A DAY FOR 1 WEEK THEN RETURN TO DAILY 12/28/2015 12/27/2015 Inactive meclizine 25 mg tablet RxNorm: 703823 1 Tablet(s) PO BID PRN No Stop Date Active potassium chloride ER 10 mEq tablet,extended release(part/ cryst) RxNorm: 7845796 1 Tablet(s) PO TID 12/08/2015 03/10/2016 Inactive potassium chloride ER 10 mEq tablet,extended release(part/ cryst) RxNorm: 8360609 2 Tablet(s) PO daily 11/26/20152015 Inactive cyanocobalamin (vit B-12) 1,000 mcg/mL injection solution RxNorm: 097541 INJECT 1 ML INTRAMUSCULARLY 2 TIMES A MONTH FOR 2 MONTHS, THEN ONCE A MONTH THEREAFTER 11/26/2015 04/23/2016 Inactive potassium chloride ER 10 mEq tablet,extended release(part/ cryst) RxNorm: 8161244 3 Tablet(s) PO daily 11/23/20152015 Inactive Lasix 40 mg tablet RxNorm: 360573 1 Tablet(s) PO daily 201501/13/2016 Inactive (this was only twice daily x1 week) now it's daily metolazone 5 mg tablet RxNorm: 447371 1 Tablet(s) BIW TAKE ONE TABLET BY MOUTH DAILY 11/12/2015 04/18/2016 Inactive hydrocodone 7.5 mg-acetaminophen 325 mg tablet RxNorm: 094194 1 or 2 Tablet(s) PO Q4-6H as needed pain 11/12/20152015 Inactive Lasix 40 mg tablet RxNorm: 642477 1 Tablet(s) PO daily 201511/11/2015 Inactive (this was only twice daily x1 week) now it's daily metolazone 5 mg tablet RxNorm: 257619 Tablet(s) TAKE ONE TABLET BY MOUTH DAILY 10/22/2015 10/29/2015 Inactive potassium chloride ER 10 mEq tablet,extended release(part/ cryst) RxNorm: 3433972 1 Tablet(s) PO daily 10/08/20152015 Inactive twice daily x 1 week then return to daily Lasix 40 mg tablet RxNorm: 777678 1 Tablet(s) PO daily 201511/09/2015 Inactive twice daily x 1 week then daily thereafter Keflex 500 mg capsule RxNorm: 500751 1 Capsule(s) PO TID 201510/02/2015 Inactive Keflex 500 mg capsule RxNorm: 504617 1 Capsule(s) PO TID 201509/22/2015 Inactive hydrocodone 7.5 mg-acetaminophen 325 mg tablet RxNorm: 089126 1 or 2 Tablet(s) PO Q4-6H as needed pain 09/22/20152015 Inactive potassium chloride ER 10 mEq tablet,extended release(part/ cryst) RxNorm: 1085344 1 Tablet(s) PO BID 09/22/2015 10/07/2015 Inactive twice daily x 1 week then return to daily Lasix 40 mg tablet RxNorm: 310241 1 Tablet(s) PO BID 201510/07/2015 Inactive twice daily x 1 week then daily thereafter allopurinol 300 mg tablet RxNorm: 496635 1 Tablet(s) PO daily 09/09/2015 01/06/2016 Inactive diltiazem 90 mg tablet RxNorm: 244074 Tablet(s) TAKE ONE TABLET BY MOUTH THREE TIMES A DAY 09/02/2015 01/28/2016 Inactive diltiazem 90 mg tablet RxNorm: 887630 TAKE ONE TABLET BY MOUTH THREE TIMES A DAY 08/31/2015 01/28/2016 Inactive diltiazem 90 mg tablet RxNorm: 782559 TAKE ONE TABLET BY MOUTH THREE TIMES A DAY 08/31/2015 09/01/2015 Inactive Xanax 0.25 mg tablet RxNorm: 151343 1 Tablet(s) PO TID as needed anxiety 08/28/2015 09/26/2015 Inactive Xanax 0.25 mg tablet RxNorm: 671339 1 Tablet(s) PO TID as needed anxiety 08/28/2015 08/27/2015 Inactive potassium chloride ER 10 mEq tablet,extended release(part/ cryst) RxNorm: 177546 TAKE ONE TABLET BY MOUTH DAILY 08/27/2015 2015 Inactive omeprazole 20 mg capsule,delayed release RxNorm: 229346 TAKE ONE CAPSULE BY MOUTH TWICE A DAY 08/16/2015 02/11/2016 Inactive omeprazole 20 mg capsule,delayed release RxNorm: 429793 TAKE ONE CAPSULE BY MOUTH TWICE A DAY 08/16/2015 08/15/2015 Inactive hydrocodone 7.5 mg-acetaminophen 325 mg tablet RxNorm: 702064 1 or 2 Tablet(s) PO Q4-6H as needed pain 08/11/20152015 Inactive omeprazole 20 mg capsule,delayed release RxNorm: 016170 Capsule(s) TAKE ONE CAPSULE BY MOUTH TWICE A DAY 08/03/2015 Inactive omeprazole 20 mg capsule,delayed release RxNorm: 359088 Capsule(s) TAKE ONE CAPSULE BY MOUTH TWICE A DAY 07/31/2015 Inactive buspirone 10 mg tablet RxNorm: 928702 TAKE ONE TABLET BY MOUTH THREE TIMES A DAY 07/13/2015 01/08/2016 Inactive metolazone 5 mg tablet RxNorm: 366737 TAKE ONE TABLET BY MOUTH DAILY 07/02/2015 07/09/2015 Inactive metolazone 5 mg tablet RxNorm: 140043 1 Tablet(s) PO daily 06/18/2015 Inactive metolazone 5 mg tablet RxNorm: 664483 1 Tablet(s) PO daily 06/14/2015 Inactive hydrocodone 7.5 mg-acetaminophen 325 mg tablet RxNorm: 962737 1or2 1 or 2 Tablet(s ) PO Q4-6H as needed pain 06/12/201507/10 Inactive warfarin 1 mg tablet RxNorm: 274926 1 Tablet(s) 04/15/2015 06/22/2015 Inactive take with 3mg to make 4mg on Mon and repeat in 1 week. hydrocodone 7.5 mg-acetaminophen 325 mg tablet RxNorm: 090140 1or2 or 2 Tablet(s) PO Q4-6H as needed pain 03/31/20152015 Inactive hydrocodone 7.5 mg-acetaminophen 325 mg tablet RxNorm: 978685 1or2 or 2 Tablet(s) PO Q4-6H as needed pain 03/25/20152015 Inactive warfarin 5 mg tablet RxNorm: 628353 1 Tablet(s) PO daily TAKE ONE TABLET BY MOUTH DAILY 03/05/2015 06/22/2015 Inactive Xarelto 20 mg tablet RxNorm: 7426087 1 Tablet(s) PO QPM 201503/04/2015 Inactive losartan 100 mg tablet RxNorm: 373343 1 Tablet(s) PO daily 05/201406/22/2015 Inactive [SAVINGS FOR NON-COVERED DRUGS -- BIN:176916, PCN: ASPROD1, Group: XXXXX, ID# [id number], Questions: . THIS IS NOT INSURANCE.] Kenalog 40 mg/mL suspension for injection RxNorm: 7522025 1 Milliliter(s) Inj 01/30/2015 01/30/2015 Inactive hydrocodone 7.5 mg-acetaminophen 325 mg tablet RxNorm: 894426 1or2 or 2 Tablet(s) PO Q4-6H as needed pain 01/15/20152014 Inactive Lasix 40 mg tablet RxNorm: 587399 1 Tablet(s) PO daily 201409/21/2015 Inactive as needed for swelling-take potassium when you take lasix potassium chloride ER 10 mEq tablet,extended release(part/ cryst) RxNorm: 318163 2 Tablet(s) PO daily 01/06/2015 01/19/2015 Inactive Lasix 40 mg tablet RxNorm: 676002 1 Tablet(s) PO daily 201401/06/2015 Inactive Ok to fill 20mg, not 40mg as needed for swelling-take potassium when you take lasix potassium chloride ER 10 mEq tablet,extended release(part/ cryst) RxNorm: 695703 1 Tablet(s) PO BID 12/30/2014 01/05/2015 Inactive Vitamin D2 50,000 unit capsule RxNorm: 367807 TAKE 1 CAPSULE BY MOUTH ONCE WEEKLY FOR 12 WEEKS 12/30/2014 03/23/2015 Inactive potassium chloride ER 10 mEq tablet,extended release(part/ cryst) RxNorm: 515554 1 Tablet(s) PO daily 12/26/2014 12/29/2014 Inactive potassium chloride ER 10 mEq tablet,extended release(part/ cryst) RxNorm: 368693 1 Tablet(s) PO daily 12/26/2014 12/25/2014 Inactive omeprazole 20 mg capsule,delayed release RxNorm: 371386 TAKE ONE CAPSULE BY MOUTH TWICE A DAY 12/24/2014 07/21/2015 Inactive Flagyl 500 mg tablet RxNorm: 304673 1 Tablet(s) PO TID 201412/20/2014 Inactive Flagyl 500 mg tablet RxNorm: 515066 1 Tablet(s) PO TID 201412/10/2014 Inactive warfarin 3 mg tablet RxNorm: 067419 TAKE ONE TABLET BY MOUTH DAILY 11/13/2014 01/29/2015 Inactive warfarin 3 mg tablet RxNorm: 651608 TAKE ONE TABLET BY MOUTH DAILY 11/13/2014 01/29/2015 Inactive warfarin 3 mg tablet RxNorm: 311978 TAKE ONE TABLET BY MOUTH DAILY 11/13/2014 03/04/2015 Inactive warfarin 3 mg tablet RxNorm: 812610 1 Tablet(s) PO daily 201403/04/2015 Inactive allopurinol 300 mg tablet RxNorm: 299159 1 Tablet(s) PO daily 11/11/2014 03/10/2015 Inactive hydrocodone 7.5 mg-acetaminophen 325 mg tablet RxNorm: 164858 1or2 or 2 Tablet(s) PO Q4-6H as needed pain 11/10/20142014 Inactive hydrocodone 7.5 mg-acetaminophen 325 mg tablet RxNorm: 240921 1or2 or 2 Tablet(s) PO Q4-6H as needed pain 10/15/20142014 Inactive hydrocodone 7.5 mg-acetaminophen 325 mg tablet RxNorm: 342032 1or2 or 2 Tablet(s) PO Q4-6H as needed pain 10/15/20142014 Inactive Kenalog 40 mg/mL suspension for injection RxNorm: 1046886 Milliliter(s) Inj 10/14/2014 10/14/2014 Inactive ceftriaxone 500 mg solution for injection RxNorm: 9697137 Inj 10/14/2014 10/14/2014 Inactive Zithromax Z-[place]ito 250 mg tablet RxNorm: 124854 1 Tablet(s) PO UD 10/14/2014 01/29/2015 Inactive zpack cefdinir 300 mg capsule RxNorm: 777060 1 Capsule(s) PO BID 10/20/2014 Inactive Vitamin D2 50,000 unit capsule RxNorm: 283947 1 Capsule(s) PO weekly x 12 weeks 09/24/2014 09/23/2014 Inactive Vitamin D2 50,000 unit capsule RxNorm: 872050 1 Capsule(s) PO weekly x 12 weeks 09/24/2014 12/22/2014 Inactive warfarin 1 mg tablet RxNorm: 161490 TAKE 1/2 TABLET BY MOUTH DAILY WITH 3MG TABLET TO EQUAL 3.5MG DAILY 09/22/201404/2014 Inactive warfarin 1 mg tablet RxNorm: 790688 1/2 Tablet(s) PO daily 3.5mg 08/26/2014 2014 Inactive taking with a 3mg to make 3.5mg tablets Lasix 20 mg tablet RxNorm: 277063 1 Tablet(s) PO QDAY PRN 09/24/2014 Inactive Ok to fill 20mg, not 40mg as needed for swelling-take potassium when you take lasix buspirone 10 mg tablet RxNorm: 453796 1 Tablet(s) PO TID 201411/25/2014 Inactive takes it BID but if she feels anxious she takes one during the day Lasix 20 mg tablet RxNorm: 666145 1 Tablet(s) PO QDAY PRN 08/25/2014 Inactive as needed for swelling-take potassium when you take lasix warfarin 1 mg tablet RxNorm: 073781 1/2 Tablet(s) PO daily 3.5mg 08/15/2014 08/21/2014 Inactive taking with a 3mg to make 3.5mg tablets warfarin 3 mg tablet RxNorm: 129007 1 Tablet(s) PO daily 201410/11/2014 Inactive diltiazem 90 mg tablet RxNorm: 207382 1 Tablet(s) PO TID 201408/30/2015 Inactive warfarin 1 mg tablet RxNorm: 543460 1/2 Tablet(s) PO daily 3.5mg 08/05/2014 08/11/2014 Inactive taking with a 3mg to make 3.5mg tablets cyclobenzaprine 10 mg tablet RxNorm: 937531 1 Tablet(s) PO QHS 08/04/2014 11/01/2014 Inactive buspirone 10 mg tablet RxNorm: 483603 1 Tablet(s) PO QID 201408/21/2014 Inactive allopurinol 300 mg tablet RxNorm: 437263 1 Tablet(s) PO daily 08/04/2014 11/01/2014 Inactive clonazepam 0.5 mg tablet RxNorm: 047069 1 Tablet(s) PO daily 09/02/2014 Inactive omeprazole 20 mg capsule,delayed release RxNorm: 679848 1 Capsule(s) PO BID 08/04/2014 11/01/2014 Inactive atenolol 25 mg tablet RxNorm: 439525 1 Tablet(s) PO daily 201411/01/2014 Inactive warfarin 3 mg tablet RxNorm: 506040 1 Tablet(s) PO daily 201408/04/2014 Inactive diphenhydramine 2 % topical cream RxNorm: 8414354 1 Application TOP Q6 PRN 07/24/2014 01/29/2015 Inactive diltiazem 90 mg tablet RxNorm: 640955 1 Tablet(s) PO BID 201408/04/2014 Inactive cyclobenzaprine 10 mg tablet RxNorm: 465034 1 Tablet(s) PO QH 07/24/2014 08/03/2014 Inactive warfarin 2.5 mg tablet RxNorm: 507240 1 Tablet(s) PO daily 08/22/2014 Inactive [SAVINGS FOR NON-COVERED DRUGS -- BIN:610569, PCN: ASPROD1, Group: XXXXX, ID# [id number], Questions: . THIS IS NOT INSURANCE.] losartan 25 mg tablet RxNorm: 599668 1 Tablet(s) PO daily 201401/29/2015 Inactive [SAVINGS FOR NON-COVERED DRUGS -- BIN:519379, PCN: ASPROD1, Group: XXXXX, ID # [id number], Questions: . THIS IS NOT INSURANCE.] isosorbide mononitrate oral RxNorm: 6057 oral No Start Date Active diltiazem ER 360 mg tablet,extended release 24 hr RxNorm: 690946 1 Tablet(s) PO daily No Start Date Active benazepril 10 mg tablet RxNorm: 553861 1 Tablet(s) PO daily No Start Date 07/14/2014 Inactive lisinopril 10 mg tablet RxNorm: 411572 1 Tablet(s) PO daily No Start Date 04/24/2016 Inactive clonazepam 0.5 mg tablet RxNorm: 430667 1 Tablet(s) PO daily No Start Date 08/03/2014 Inactive diltiazem 90 mg tablet RxNorm: 891530 1 Tablet(s) PO daily No Start Date 07/23/2014 Inactive atenolol 25 mg tablet RxNorm: 758194 1 Tablet(s) PO daily No Start Date 08/03/2014 Inactive buspirone 10 mg tablet RxNorm: 009227 1 Tablet(s) PO QID No Start Date 08/03/2014 Inactive omeprazole 20 mg capsule,delayed release RxNorm: 886830 1 Capsule(s) PO BID No Start Date 08/03/2014 Inactive allopurinol 300 mg tablet RxNorm: 578437 1 Tablet(s) PO daily No Start Date 08/03/2014 Inactive Xarelto 20 mg tablet RxNorm: 7648689 1 Tablet(s) PO daily No Start Date 03/03/2015 Inactive warfarin 2 mg tablet RxNorm: 796435 1 Tablet(s) PO daily No Start Date 07/16/2014 Inactive cyanocobalamin (vit B-12) 1,000 mcg/mL injection solution RxNorm: 471700 1 Milliliter(s) Inj monthly No Start Date Inactive cyclobenzaprine 10 mg tablet RxNorm: 703245 1 Tablet(s) PO BID No Start Date 07/23/2014 Inactive Eliquis 2.5 mg tablet RxNorm: 1243954 1 Tablet(s) PO daily No Start Date 03/03/2015 Inactive Medication Administered Medication Codes Instructions Start Date Status Kenalog 40 mg/mL suspension for injection RxNorm: 6829335 1Milliliter 01/30/2015 No longer Active Kenalog 40 mg/mL suspension for injection RxNorm: 2091109 Milliliter 10/14/2014 No longer Active ceftriaxone 500 mg solution for injection RxNorm: 2011491 10/14/2014 No longer Active Immunizations Vaccine Codes [...] behavioral disturbance ICD-10: F01.50 ICD-9: 290.40 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0 seconds 01/15/2018 Pt Ate7684 INR 2.5 01/15/2018 Pt Pod7691 Low Intensity - 1.5-2.0 01/15/2018 Pt Mbz6566 Mod intensity - 2.0-3.0 01/15/2018 Pt Eue6165 Hi intensity - 3.0-4.0 01/15/2018 Metabolic Ord15 [...] Metabolic Ord15 CALCIUM 9.2 mg/dL 01/15/2018 Pt Pkp6898 PT 29.3 seconds 12/18/2017 Pt Uir9236 INR 2.8 12/18/2017 Pt Dyi2099 Low Intensity - 1.5-2.0 12/18/2017 Pt Wam1331 Mod intensity - 2.0-3.0 12/18/2017 Pt Csp4282 Hi intensity - 3.0-4.0 12/18/2017 Metabolic Ord15 [...] Ord15 CALCIUM 9.7 mg/dL 12/18/2017 Comp Metabolic Spc535 NA 138 mEq/L 09/29/2015 Comp Metabolic Mqc447 K 4.6 mEq/L 09/29/2015 Comp Metabolic Ssr566 CL 102 mEq/L 09/29/2015 Comp Metabolic Fud572 CO2 28.0 mEq/L 09/29/2015 Comp Metabolic Elj158 ANION GAP 13 09/29/2015 Comp Metabolic Skh601 GLUCOSE 83 mg/dL 09/29/2015 Comp Metabolic Drx552 Creat 1.1 mg/dL 09/29/2015 Comp Metabolic Amc553 eGFR 52 ml/min/1.73m2 09/29/2015 Comp Metabolic Mns230 BUN 18 mg/dL 09/29/2015 Comp Metabolic Gfb471 B/C Ratio 16.7 Ratio 09/29/2015 Comp Metabolic Jtw716 CALCIUM 9.6 mg/dL 09/29/2015 Comp Metabolic Vyc373 ALK PHOS 188 U/L 09/29/2015 Comp Metabolic Qnr101 AST(SGOT) 19 U/L 09/29/2015 Comp Metabolic Mqw125 ALT(SGPT) 12 U/L 09/29/2015 Comp Metabolic Zum157 BILI T 0.6 mg/dL 09/29/2015 Comp Metabolic Bjw572 ALBUMIN 4.0 g/dL 09/29/2015 Comp Metabolic Ppb671 TPRO 6.6 g/dL 09/29/2015 Comp Metabolic Ehe897 GLOB 2.6 g/dL 09/29/2015 Comp Metabolic Bfz489 A/G Ratio 1.5 Ratio 09/29/2015 Comp Metabolic Ccg411 Osmo 277 mOsmo 09/29/2015 Cbc With Differential [...] 26.1 pg 09/29/2015 Cbc With Differential Ord2 Anderson% 18.3 % 09/29/2015 Cbc With Differential Ord2 [...] 1.41 K/ul 09/29/2015 Cbc With Differential Ord2 Anderson ABS# 1.8 K/ul 09/29/2015 Cbc With Differential Ord2 Eos ABS# 0.2 K/ul 09/29/2015 Cbc With Differential Ord2 Baso ABS# 0.1 K/ul 09/29/2015 Comp Metabolic Dlc452 NA 134 mEq/L 09/22/2015 Comp Metabolic Quj383 K 4.7 mEq/L 09/22/2015 Comp Metabolic Lbq952 CL 98 mEq/L 09/22/2015 Comp Metabolic Msi455 CO2 26.0 mEq/L 09/22/2015 Comp Metabolic Dke973 ANION GAP 15 09/22/2015 Comp Metabolic Ftg492 GLUCOSE 83 mg/dL 09/22/2015 Comp Metabolic Njf971 Creat 1.1 mg/dL 09/22/2015 Comp Metabolic Rdr451 eGFR 52 ml/min/1.73m2 09/22/2015 Comp Metabolic Wqq922 BUN 19 mg/dL 09/22/2015 Comp Metabolic Frd338 B/C Ratio 17.8 Ratio 09/22/2015 Comp Metabolic Oli173 CALCIUM 9.4 mg/dL 09/22/2015 Comp Metabolic Mzi502 ALK PHOS 182 U/L 09/22/2015 Comp Metabolic Rqo105 AST(SGOT) 30 U/L 09/22/2015 Comp Metabolic Pjw881 ALT(SGPT) 16 U/L 09/22/2015 Comp Metabolic Dxa691 BILI T 0.8 mg/dL 09/22/2015 Comp Metabolic Els361 ALBUMIN 3.9 g/dL 09/22/2015 Comp Metabolic Iya095 TPRO 6.8 g/dL 09/22/2015 Comp Metabolic Qrn701 GLOB 2.9 g/dL 09/22/2015 Comp Metabolic Oal241 A/G Ratio 1.3 Ratio 09/22/2015 Comp Metabolic Mln989 Osmo 270 mOsmo 09/22/2015 Cbc With Differential [...] 16.8 % 09/22/2015 Cbc With Differential Ord2 Anderson% 15.4 % 09/22/2015 Cbc With Differential Ord2 [...] 1.81 K/ul 09/22/2015 Cbc With Differential Ord2 Anderson ABS# 1.7 K/ul 09/22/2015 Cbc With Differential [...] 27.8 pg 06/02/2015 Cbc With Differential Ord2 Anderson% 16.6 % 06/02/2015 Cbc With Differential Ord2 [...] 1.74 K/ul 06/02/2015 Cbc With Differential Ord2 Anderson ABS# 1.8 K/ul 06/02/2015 Cbc With Differential Ord2 Eos ABS# 0.1 K/ul 06/02/2015 Cbc With Differential Ord2 Baso ABS# 0.0 K/ul 06/02/2015 Cbc With Differential Ord2 New Analyzer Notice Please note new ref ranges starting 03-11-2015 due to implemntation of new five part differential hematolgy analyzer. 06/02/2015 Pt Ycj1996 PT 21.8 seconds 06/02/2015 Pt Eit1723 INR 2.0 06/02/2015 Pt Qyu4567 Low Intensity - 1.5-2.0 06/02/2015 Pt Qqz2404 Mod intensity - 2.0-3.0 06/02/2015 Pt Iui5776 Hi intensity - 3.0-4.0 06/02/2015 Comp Metabolic Bzi959 NA 132 mEq/L 06/02/2015 Comp Metabolic Cpe147 K 4.4 mEq/L 06/02/2015 Comp Metabolic Bko405 CL 94 mEq/L 06/02/2015 Comp Metabolic Vor385 CO2 26.0 mEq/L 06/02/2015 Comp Metabolic Rry456 ANION GAP 16 06/02/2015 Comp Metabolic Jgg436 GLUCOSE 97 mg/dL 06/02/2015 Comp Metabolic Xdj845 Creat 1.2 mg/dL 06/02/2015 Comp Metabolic Nod210 eGFR 46 ml/min/1.73m2 06/02/2015 Comp Metabolic Grz712 BUN 19 mg/dL 06/02/2015 Comp Metabolic Lmn400 B/C Ratio 15.8 Ratio 06/02/2015 Comp Metabolic Aih692 CALCIUM 9.4 mg/dL 06/02/2015 Comp Metabolic Sys736 ALK PHOS 178 U/L 06/02/2015 Comp Metabolic Nho623 AST(SGOT) 32 U/L 06/02/2015 Comp Metabolic Csa259 ALT(SGPT) 31 U/L 06/02/2015 Comp Metabolic Cpd117 BILI T 0.6 mg/dL 06/02/2015 Comp Metabolic Uyt643 ALBUMIN 4.0 g/dL 06/02/2015 Comp Metabolic Awi160 TPRO 6.5 g/dL 06/02/2015 Comp Metabolic Tno509 GLOB 2.5 g/dL 06/02/2015 Comp Metabolic Qvj605 A/G Ratio 1.6 Ratio 06/02/2015 Comp Metabolic Ugl847 Osmo 267 mOsmo 06/02/2015 B12 Zwm047 B12 160.00 pg/ml 04/01/2015 Iron Ord72 Iron 39 ug/dl 04/01/2015 Vitamin D 25 Oh Mwl6797 VITAMIN D, 25 HYDROXY 61.20 ng/mL Tsh Ord6 hTSH II 1.87 uIU/mL 03/31/2015 Pt Gpo9993 PT 36.9 seconds 03/31/2015 Pt Czq8568 INR 3.9 03/31/2015 Pt Mpo1881 Low Intensity - 1.5-2.0 03/31/2015 Pt Buc6314 Mod intensity - 2.0-3.0 03/31/2015 Pt Kmz6041 Hi intensity - 3.0-4.0 03/31/2015 Comp Metabolic Ztn655 NA 131 mEq/L 03/31/2015 Comp Metabolic Ucd344 K 5.3 mEq/L 03/31/2015 Comp Metabolic Rwn838 CL 97 mEq/L 03/31/2015 Comp Metabolic Kwg925 CO2 24.0 mEq/L 03/31/2015 Comp Metabolic Qjg360 ANION GAP 15 03/31/2015 Comp Metabolic Rqg020 GLUCOSE 84 mg/dL 03/31/2015 Comp Metabolic Vqt081 Creat 1.3 mg/dL 03/31/2015 Comp Metabolic Ddr447 eGFR 42 ml/min/1.73m2 03/31/2015 Comp Metabolic Iqe693 BUN 26 mg/dL 03/31/2015 Comp Metabolic Ftw711 B/C Ratio 20.2 Ratio 03/31/2015 Comp Metabolic Plr506 CALCIUM 9.4 mg/dL 03/31/2015 Comp Metabolic Btl246 ALK PHOS 172 U/L 03/31/2015 Comp Metabolic Qhi240 AST(SGOT) 21 U/L 03/31/2015 Comp Metabolic Buu973 ALT(SGPT) 27 U/L 03/31/2015 Comp Metabolic Icx769 BILI T 0.5 mg/dL 03/31/2015 Comp Metabolic Mcy130 ALBUMIN 4.0 g/dL 03/31/2015 Comp Metabolic Suu801 TPRO 6.8 g/dL 03/31/2015 Comp Metabolic Jzv281 GLOB 2.8 g/dL 03/31/2015 Comp Metabolic Ydd566 A/G Ratio 1.4 Ratio 03/31/2015 Comp Metabolic Ekb400 Osmo 267 mOsmo 03/31/2015 Cbc With Differential [...] 88.9 fl 03/31/2015 Cbc With Differential Ord2 Anderson% 14.0 % 03/31/2015 Cbc With Differential Ord2 [...] 1.62 K/ul 03/31/2015 Cbc With Differential Ord2 Anderson ABS# 1.6 K/ul 03/31/2015 Cbc With Differential [...] Magnesium Ord90 Mag 2.0 mg/dL 09/19/2014 Pt Are3222 PT 29.1 seconds 09/19/2014 Pt Fij8882 INR 2.9 09/19/2014 Pt Yts5273 Low Intensity - 1.5-2.0 09/19/2014 Pt Tzy0340 Mod intensity - 2.0-3.0 09/19/2014 Pt Rbx1138 Hi intensity - 3.0-4.0 09/19/2014 Tsh Ord6 hTSH II 1.40 uIU/mL 09/19/2014 Lipid Ord30 CHOL 216 mg/dL 09/19/2014 Lipid Ord30 HDL 78.0 mg/dl 09/19/2014 Lipid Ord30 TRIG 85 mg/dL 09/19/2014 Lipid Ord30 LDL 121 mg/dL 09/19/2014 Lipid Ord30 C/HDL 2.8 Ratio 09/19/2014 Vitamin D 25 Oh Xqi5484 VITAMIN D, 25 HYDROXY 14.13 ng/mL Comp Metabolic Zlf471 NA 134 mEq/L 09/19/2014 Comp Metabolic Vyo020 K 4.7 mEq/L 09/19/2014 Comp Metabolic Feb861 CL 98 mEq/L 09/19/2014 Comp Metabolic Dgf039 CO2 27.0 mEq/L 09/19/2014 Comp Metabolic Rie835 ANION GAP 14 09/19/2014 Comp Metabolic Hvz290 GLUCOSE 94 mg/dL 09/19/2014 Comp Metabolic Lvl435 Creat 1.1 mg/dL 09/19/2014 Comp Metabolic Mdd047 eGFR 49 ml/min/1.73m2 09/19/2014 Comp Metabolic Sbf368 BUN 14 mg/dL 09/19/2014 Comp Metabolic Xpy461 B/C Ratio 12.3 Ratio 09/19/2014 Comp Metabolic Ckn807 CALCIUM 9.7 mg/dL 09/19/2014 Comp Metabolic Bit274 ALK PHOS 150 U/L 09/19/2014 Comp Metabolic Jbi360 AST(SGOT) 16 U/L 09/19/2014 Comp Metabolic Qad614 ALT(SGPT) 9 U/L 09/19/2014 Comp Metabolic Hxp778 BILI T 0.8 mg/dL 09/19/2014 Comp Metabolic Xsh784 ALBUMIN 3.9 g/dL 09/19/2014 Comp Metabolic Zmz219 TPRO 6.8 g/dL 09/19/2014 Comp Metabolic Elm661 GLOB 2.9 g/dL 09/19/2014 Comp Metabolic Rbp868 A/G Ratio 1.3 Ratio 09/19/2014 Comp Metabolic Fsg590 Osmo 268 mOsmo 09/19/2014 Cbc With Differential [...] Model/CDA Sections, Assigned to/Indira Ibanez SNOMED CT: [id number] CPT-4: 17686Xorhukt 12/10/2015 TRIAMCINOLONE ACET INJ NOS CPT-4: J3301 01/30/2015 URINALYSIS NONAUTO W/O SCOPE CPT-4: 38971 11/07/2014 ROCEPHIN, PER 250 MG CPT-4: J0696 10/14/2014 TRIAMCINOLONE ACET INJ NOS CPT-4: J3301 10/14/2014 Vital Signs Date Vital 03/27/2018 Blood Pressure 1: 120/62 Code : 8480-6 Heart Rate 1: 58 bpm Height: 5'2" SpO2: 98% Weight: 03/15/2018 Blood Pressure 1: 146/60 Code : 8480-6 BMI: 25.2 Code : 90700-7 Heart Rate 1 : 79 bpm Height: 5'2" SpO2: 98% Weight: 138 lbs 12/12/2017 Blood Pressure 1: 130/60 Code : 8480-6 BMI: 25.2 Code : 31782-8 Heart Rate 1 : 60 bpm Height: 5'2" SpO2: 98% Weight: 138 lbs 09/05/2017 Blood Pressure 1: 108/46 Code : 8480-6 BMI: 24.0 Code : 81157-5 Heart Rate 1 : 70 bpm Height: 5'2" SpO2: 96% Weight: 131 lbs 05/09/2017 Blood Pressure 1: 122/82 Code : 8480-6 BMI: 25.2 Code : 83330-7 Heart Rate 1 : 72 bpm Height: 5'2" SpO2: 95% Weight: 138 lbs 03/07/2017 Blood Pressure 1: 108/52 Code : 8480-6 BMI: 27.6 Code : 41640-0 Heart Rate 1 : 72 bpm Height: 5'2" SpO2: 96% Weight: 151 lbs 01/24/2017 Blood Pressure 1: 126/60 Code : 8480-6 BMI: 27.1 Code : 90692-0 Heart Rate 1 : 60 bpm Height: [...] Code : 8480-6 BMI: 26.8 Code : 45426-7 Heart Rate 1 : 59 bpm Height: 5'2" SpO2: 97% Weight: 146 lbs 8 oz 05/10/2016 Blood Pressure 1: 120/56 Code : 8480-6 BMI: 27.1 Code : 20649-3 Heart Rate 1 : 63 bpm Height: 5'2" SpO2: 97% Weight: 148 lbs 04/25/2016 Blood Pressure 1: 134/66 Code : 8480-6 BMI: 24.9 Code : 61937-9 Heart Rate 1 : 118 bpm Height: 5'2" SpO2: 93% Temperature: 36.8 (C) / 98.3 (F) Weight: 136 lbs 01/14/2016 Blood Pressure 1: 132/78 Code : 8480-6 BMI: 25.6 Code : 19110-9 Heart Rate 1 : 97 bpm Height: 5'2" SpO2: 95% Weight: 140 lbs 12/10/2015 Blood Pressure 1: 118/72 Code : 8480-6 BMI: 26.2 Code : 47086-3 Heart Rate 1 : 68 bpm Height: 5'2" SpO2: 95% Weight: 143 lbs 11/12/2015 Blood Pressure 1: 140/80 Code : 8480-6 BMI: 25.6 Code : 67167-4 Heart Rate 1 : 77 bpm Height: 5'2" SpO2: 93% Weight: 140 lbs 10/08/2015 Blood Pressure 1: 132/60 Code : 8480-6 BMI: 26.2 Code : 20791-3 Heart Rate 1 : 77 bpm Height: 5'2" SpO2: 96% Weight: 143 lbs 09/29/2015 Blood Pressure 1: 130/62 Code : 8480-6 BMI: 27.1 Code : 08273-8 Heart Rate 1 : 86 bpm Height: 5'2" SpO2: 93% Weight: 148 lbs 09/22/2015 Blood Pressure 1: 164/72 Code : 8480-6 BMI: 28.2 Code : 83415-7 Heart Rate 1 : 79 bpm Height: 5'2" SpO2: 92% Weight: 154 lbs 07/21/2015 Blood Pressure 1: 124/70 Code : 8480-6 BMI: 24.5 Code : 68460-9 Heart Rate 1 : 71 bpm Height: 5'2" SpO2: 98% Weight: 134 lbs 06/23/2015 Blood Pressure 1: 122/68 Code : 8480-6 BMI: 25.4 Code : 78663-4 Heart Rate 1 : 78 bpm Height: 5'2" SpO2: 92% Weight: 139 lbs 06/12/2015 Blood Pressure 1: 154/62 Code : 8480-6 BMI: 27.4 Code : 76936-6 Heart Rate 1 : 87 bpm Height: 5'2" SpO2: 94% Weight: 150 lbs 06/02/2015 Blood Pressure 1: 140/68 Code : 8480-6 Heart Rate 1: 90 bpm SpO2: 91% Weight: 142 lbs 03/31/2015 Blood Pressure 1: 120/56 Code : 8480-6 BMI: 23.6 Code : 40773-8 Heart Rate 1 : 82 bpm Height: 5'2" SpO2: 98% Weight: 129 lbs 01/30/2015 Blood Pressure 1: 108/62 Code : 8480-6 BMI: 22.1 Code : 93968-9 Heart Rate 1 : 8299 bpm Height: 5'2 " SpO2: 99% Weight: 121 lbs 12/22/2014 Blood Pressure 1: 130/70 Code : 8480-6 BMI: 21.8 Code : 81362-9 Heart Rate 1 : 106 bpm Height: 5'2" SpO2: 98% Weight: 119 lbs 10/29/2014 Blood Pressure 1: 118/58 Code : 8480-6 BMI: 23.2 Code : 03772-9 Heart Rate 1 : 74 bpm Height: 5'2" SpO2: 93% Weight: 127 lbs 10/14/2014 Blood Pressure 1: 128/64 Code : 8480-6 BMI: 22.9 Code : 41785-2 Heart Rate 1 : 79 bpm Height: 5'2" SpO2: 93% Temperature: 35.9 (C) / 96.6 (F) Weight: 125 lbs 09/19/2014 Blood Pressure 1: 132/72 Code : 8480-6 BMI: 22.9 Code : 14775-7 Heart Rate 1 : 84 bpm Height: 5'2" SpO2: 96% Weight: 125 lbs 08/22/2014 Blood Pressure 1: 124/72 Code : 8480-6 BMI: 23.0 Code : 08688-3 Heart Rate 1 : 64 bpm Height: 5'2" Weight: 126 lbs 08/04/2014 Blood Pressure 1: 126/86 Code : 8480-6 BMI: 23.6 Code : 56056-6 Height: 5'2" Respiratory Rate: 20 bpm Weight: 129 lbs 07/24/2014 Blood Pressure 1: 116/72 Code : 8480-6 BMI: 23.6 Code : 30695-2 Heart Rate 1 : 74 bpm Height: 5'2" Weight: 129 lbs 07/15/2014 Blood Pressure 1: 132/78 Code : 8480-6 BMI: 24.1 Code : 36349-4 Heart Rate 1 : 74 bpm Height: [...] data Encounters Encounter Performer Location Codes Date ([id number]) 27812 EST. PATIENT, LEVEL IV Diagnosis: Essential (primary) hypertension[ICD10: I10] Diagnosis: Localized edema[ICD10: R60.0] Diagnosis: Right lower quadrant pain[ICD10: R10.31] Merle Daigle MD, [facility] CPT-4: 73985 03/27/2018 [id number]) 56508 EST. PATIENT, LEVEL IV Diagnosis: Right lower quadrant pain[ICD10: R10.31] Diagnosis: Diarrhea, unspecified[ICD10: R19.7] Diagnosis: Essential (primary) hypertension[ICD10: I10] Diagnosis: Low back pain[ICD10: M54.5] Diagnosis: Gastro-esophageal reflux disease without esophagitis[ICD10: K21.9] Merle Daigle MD, [facility] CPT-4: 93906 03/15/2018 [id number]) 18627 EST. 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 PATIENT, LEVEL IV Diagnosis: Paroxysmal atrial fibrillation[ICD10: I48.0] Diagnosis: Essential (primary) hypertension[ICD10: I10] Diagnosis: correction (current) use of anticoagulants[ICD10: Z79.01] Diagnosis: Low back pain[ICD10: M54.5] Veronica Daigle MD, [facility] CPT- 4: 34445 09/05/2017 ([id number]) 76792 EST. PATIENT, LEVEL IV Diagnosis: Essential (primary) hypertension[ICD10: I10] Diagnosis: Generalized anxiety disorder[ICD10: F41.1] Diagnosis: Major depressive disorder, single episode, unspecified[ICD10: F32.9] Diagnosis: Localized edema[ICD10: R60.0] Veronica Daigle MD, [facility] CPT- 4: 23636 05/09/2017 ([id number]) 10373 EST. PATIENT, LEVEL IV Diagnosis: Essential (primary) hypertension[ICD10: I10] Diagnosis: Paroxysmal atrial fibrillation[ICD10: I48.0] Diagnosis: Generalized anxiety disorder[ICD10: F41.1] Diagnosis: Localized edema[ICD10: R60.0] Veronica Daigle MD, [facility] CPT- 4: 65585 03/07/2017 ([id number]) 70062 EST. PATIENT, LEVEL IV Diagnosis: Generalized anxiety disorder[ICD10: F41.1] Diagnosis: Major depressive disorder, single episode, unspecified[ICD10: F32.9] Diagnosis: Essential (primary) hypertension[ICD10: I10] Diagnosis: Paroxysmal atrial fibrillation[ICD10: I48.0] Merle Daigle MD, [facility] CPT-4: 21348 01/24/2017 22052 EST. PATIENT, LEVEL IV Diagnosis: Other chest pain[ICD10: R07.89] Diagnosis: Other malaise[ICD10: R53.81] Opal Daigle MD, [facility] CPT-4 : 81726 09/29/2016 [id number] 16772 EST. PATIENT, LEVEL IV Diagnosis: Essential (primary) hypertension[ICD10: I10] Diagnosis: Paroxysmal atrial fibrillation[ICD10: I48.0] Diagnosis: Localized edema[ICD10: R60.0] Diagnosis: Generalized anxiety disorder[ICD10: F41.1] Diagnosis: Low back pain[ICD10: M54.5] Merle Daigle MD, [facility] CPT-4: 24278 09/13/2016 ([id number]) 34517 EST. PATIENT, LEVEL III Diagnosis: Essential (primary) hypertension[ICD10: I10] Diagnosis: Paroxysmal atrial fibrillation[ICD10: I48.0] Merle Daigle MD, [facility] CPT-4: 87384 05/31/2016 ([id number]) 14078 EST. PATIENT, LEVEL III Diagnosis: Essential (primary) hypertension[ICD10: I10] Diagnosis: Localized edema[ICD10: R60.0] Merle Daigle MD, [facility] CPT-4: 20943 05/10/2016 ([id number]) 16612 EST. PATIENT, LEVEL IV Diagnosis: Paroxysmal atrial fibrillation[ICD10: I48.0] Diagnosis: Essential (primary) hypertension[ICD10: I10] Diagnosis: Generalized anxiety disorder[ICD10: F41.1] Merle Daigle MD, [facility] CPT-4: 38807 04/25/2016 ([id number]) 23797 EST. PATIENT, LEVEL IV Diagnosis: Generalized anxiety disorder[ICD10: F41.1] Diagnosis: Essential (primary) hypertension[ICD10: I10] Diagnosis: Paroxysmal atrial fibrillation[ICD10: I48.0] Diagnosis: Localized edema[ICD10: R60.0] Diagnosis: Acute recurrent maxillary sinusitis[ICD10: J01.01] Merle Daigle MD, [facility] CPT-4: 19758 01/14/2016 ([id number]) 31188 EST. PATIENT, LEVEL IV Diagnosis: Essential (primary) hypertension[ICD10: I10] Diagnosis: Generalized anxiety disorder[ICD10: F41.1] Diagnosis: Localized edema[ICD10: R60.0] Diagnosis: Encounter for immunization[ICD10: Z23] Merle Daigle MD, [facility] CPT-4: 61966 12/10/2015 ([id number]) 64679 EST. PATIENT, LEVEL III Diagnosis: Essential (primary) hypertension[ICD10: I10] Diagnosis: Localized edema[ICD10: R60.0] Merle Daigle MD, [facility] CPT-4: 22949 11/12/2015 ([id number]) 74755 EST. PATIENT, LEVEL III Diagnosis: Essential (primary) hypertension[ICD10: I10] Diagnosis: Localized edema[ICD10: R60.0] Merle aDigle MD, [facility] CPT-4: 46082 10/08/2015 ([id number]) 19906 EST. PATIENT, LEVEL III Diagnosis: Localized edema[ICD10: R60.0] Diagnosis: Essential (primary) hypertension[ICD10: I10] Merle Daigle MD, [facility] CPT-4: 96955 09/29/2015 ([id number]) 19044 EST. PATIENT, LEVEL IV Diagnosis: Localized edema[ICD10: R60.0] Diagnosis: Essential (primary) hypertension[ICD10: I10] Diagnosis: Paroxysmal atrial fibrillation[ICD10: I48.0] Merle Daigle MD, [facility] CPT-4: 72361 09/22/2015 ([id number]) 34465 EST. PATIENT, LEVEL III Diagnosis: Essential (primary) hypertension[ICD10: I10] Diagnosis: Paroxysmal atrial fibrillation[ICD10: I48.0] Merle Daigle MD, [facility] CPT-4: 77844 07/21/2015 ([id number]) 91796 EST. 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 PATIENT, LEVEL IV Diagnosis: Essential (primary) hypertension[ICD10: I10] Diagnosis: Paroxysmal atrial fibrillation[ICD10: I48.0] Diagnosis: Localized edema[ICD10: R60.0] Diagnosis: Encounter for therapeutic drug level monitoring[ICD10: Z51.81] Merle Daigle MD, [facility] CPT-4: 40382 06/02/2015 ([id number]) 48475 EST. PATIENT, LEVEL IV Diagnosis: Essential (primary) hypertension[ICD10: I10] Diagnosis: Vitamin D deficiency, unspecified[ICD10: E55.9] Diagnosis: Major depressive disorder, single episode, unspecified[ICD10: F32.9] Diagnosis: Paroxysmal atrial fibrillation[ICD10: I48.0] Diagnosis: correction (current) use of anticoagulants[ICD10: Z79.01] Merle Daigle MD , [facility] CPT-4: 59798 03/31/2015 [id number]) 18515 EST. PATIENT, LEVEL III Diagnosis: Essential (primary) hypertension[ICD10: I10] Diagnosis: Allergic rhinitis due to pollen[ICD10: J30.1] Merle Daigle MD, [facility] CPT-4: 31960 01/30/2015 53573 EST. PATIENT, LEVEL III Diagnosis: Localized edema[ICD10: R60.0] Diagnosis: Diarrhea, unspecified[ICD10: R19.7] Veronica Daigle MD, [facility] CPT-4: 89261 12/22/2014 [id number]) 58273 EST. PATIENT, LEVEL IV Diagnosis: DYSPHAGIA, PHARYNGEAL[ICD9: 787.23] Diagnosis: Low back pain[ICD9: 724.2] Diagnosis: Cough[ICD9: 786.2] Diagnosis: Anticoagulated on Coumadin[ICD9: V58.83] Diagnosis: MUSCLE WEAKNESS-GENERAL[ICD9: 728.87] Diagnosis: EDEMA[ICD9: 782.3] [facility] CPT-4: 46728 10/29/2014 ([id number]) 56626 EST. PATIENT, LEVEL IV Diagnosis: Low back pain[ICD9: 724.2] Diagnosis: Pneumonia[ICD9: 486] Diagnosis: Cough[ICD9: 786.2] Diagnosis: Anticoagulated on Coumadin[ICD9: V58.83] Diagnosis: DYSPHAGIA, NOS[ICD9: 787.20] Diagnosis: MUSCLE WEAKNESS-GENERAL[ICD9: 728.87] Merle Daigle MD, [facility] CPT-4: 81563 10/14/2014 ([id number]) 13616 EST. PATIENT, LEVEL IV Diagnosis: ESSENTIAL HYPERTENSION[ICD9: 401.9] Diagnosis: ESOPHAGEAL REFLUX[ICD9: 530.81] Diagnosis: SLEEP RELATED LEG CRAMPS[ICD9: 327.52] Diagnosis: Atrial fibrillation[ICD9: 427.31] Diagnosis: Anticoagulated on Coumadin[ICD9: V58.83] Diagnosis: VITAMIN D DEFICIENCY[ICD9: 268.9] Merle Daigle MD, [facility] CPT-4: 32366 09/19/2014 ([id number]) 41872 EST. PATIENT, LEVEL III Diagnosis: EDEMA[ICD9: 782.3] Diagnosis: LONG-TERM USE ANTICOAGUL[ICD9: V58.61] Merle Daigle MD, [facility] CPT-4: 33691 08/22/2014 ([id number]) 02456 EST. PATIENT, LEVEL IV Diagnosis: Skin irritation[ICD9: 709.9] Diagnosis: ESSENTIAL HYPERTENSION[ICD9: 401.9] Diagnosis: Anticoagulated on Coumadin[ICD9: V58.83] Diagnosis: DEPRESSIVE DISORDER NEC[ICD9: 311] Yumiko Daigle MD, [facility] CPT-4: 57007 08/04/2014 ([id number]) 72927 EST. PATIENT, LEVEL III Diagnosis: Skin irritation[ICD9: 709.9] Veronica Daigle MD, [facility] CPT- 4: 50903 07/24/2014 ([id number]) OFFICE/OUTPATIENT VISIT NEW Diagnosis: ESSENTIAL HYPERTENSION[ICD9: 401.9] Diagnosis: COUGH[ICD9: 786.2] Diagnosis: Atrial fibrillation[ICD9: 427.31] Diagnosis: LONG-TERM USE ANTICOAGUL[ICD9: V58.61] Diagnosis: DEPRESSIVE DISORDER NEC[ICD9: 311] [facility] CPT-4: 29133 07/15/2014 Plan of Care Planned Activity Notes [...] symptoms return 03/27/2018 Appointment: Merle Esparza WPtel: [phone] (30 min) Complex 03/27/2018 Patient Education: Patient [...] over-medication. 03/15/2018 Appointment: Merle Esparza WPtel: [phone] [phone] (30 min) Complex 03/15/2018 Patient Education: Patient Medication Summary Completed 03/15/2018 Patient Education: Hypertension Completed 03/15/2018 Patient Education: Back Pain Completed 03/15/2018 Appointment: Veronica Daigle WPtel: [address] [place], [place] [phone] (15 min) Moderate 02/01/2018 Appointment: Veronica Daigle WPtel: [facility] (15 min) Moderate 01/16/2018 Visit Plan: Hypertension [...] resistant to the idea of going to [place]. She wants to stay in her home, however she is in need of more care in her home, which she cannot afford to pay for at this time. 12/12/2017 Appointment: Veronica Daigle WPtel: [id number] (15 min) Moderate 12/12/2017 Patient Education: Patient [...] had her pain medication stolen by a tire care manager through home health - i have given pt a script for 50 pills to get her through for when she can get her next RX for her pain medication. 09/05/2017 Appointment: Veronica Daigle WPtel: [id number] (15 min) Moderate 09/05/2017 Patient Education: [...] current medications. 05/09/2017 App[facility]ment: [facility] ([facility]) Moderate 05/09/2017 Patient Education: Patient [...] current medications. 03/07/2017 Appointment: [facility] Da[facility]le [facility] ([facility] min) Moderate 03/07/2017 Patient Education: Patient [...] becoming uncontrolled. 01/24/2017 Appointment: Merle Esparza WPtel: [address] [place], [place] [id number] (30 min) Complex 01/24/2017 Patient Education: Patient [...] questions , changes or concerns. 09/29/2016 Appointment: Opla Boyle WPtel: [address] [place], [place] [id number] (15 min) Moderate 09/29/2016 Appointment: Opal Boyle WPtel: [address] [place] [address] (15 min) Moderate 09/29/2016 Patient Education: Patient [...] current medications. 09/13/2016 Appointment: Merle Esparza WPtel: [phone] (30 min) Complex 09/13/2016 Patient Education: Patient [...] becoming uncontrolled. 05/31/2016 Appointment: Merle Esparza WPtel: [facility] [place] [address] (30 min) Complex 05/31/2016 Patient Education: Patient [...] TODAY 05/10/2016 Appointment: Merle Esparza WPtel: [phone] [phone] (30 min) Complex 05/10/2016 Patient Education: Patient Medication Summary Completed 05/10/2016 Patient Education: Hypertension Completed 05/10/2016 Appointment: Merle Esparzatel: [phone] (15 min) Moderate 05/09/2016 Visit Plan: Afib-not [...] current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
--- OUTSIDE RECORDS SUMMARY | 2018-04-18 23:45 | XMS REPORT | CCD ---
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 Name Role Phone PP Unavailable CCM Unavailable Summary Purpose Interface Exchange Insurance Providers Payer name Policy type / Coverage type Covered green party ID Effective Begin Date Effective End Date WPS Medicare Part B Medicare Part B [id number] Unknown Family history Mother Diagnosis Age At Onset Hypertension Unknown Heart Attack Unknown Social History Social History Element Codes Description Effective Dates Marital status Unknown 07/15/2014 Marital status Unknown 07/15/2014 Number of children Unknown 0 07/15/2014 Number of children Unknown 0 07/15/2014 Employment Unknown Retired 07/15/2014 Employment Unknown Retired 07/15/[address]: 721162989 Has never smoked or chewed tobacco 07/15/[address]: 946854877 Has never smoked or chewed tobacco 07/15/[address]: 414332881 Never drinks alcohol 07/15/[address]: 207285698 Never drinks alcohol 07/15/2014 Allergies, Adverse Reactions, Alerts Substance Reaction Codes Entered Date Inactivated Date Status * NO KNOWN FOOD ALLERGIES Unknown 07/15/2014 No Inactive Date Active SULFA(SULFONAMIDE ANTIBIOTICS) Unknown 07/15/2014 No Inactive Date Active Past Medical History Illness Codes Condition Status Onset Date Resolved Date Diarrhea, unspecified ICD-9: 787.91 ICD-10: R19.7 Active 12/21/2014 Unknown Essential (primary) hypertension ICD-9: 401.9 ICD-10: I10 Active 01/13/2016 Unknown Gastro-esophageal reflux disease without esophagitis ICD-9: 530.81 ICD-10: K21.9 Active 03/15/2018 Unknown Low back pain ICD-9: 724.2 ICD-10: M54.5 Active 09/13/2016 Unknown Right lower quadrant pain ICD-9: 789.03 ICD-10: R10.31 Active 03/15/2018 Unknown 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 ICD-10: Z79.01 Active 03/30/2015 Unknown Other malaise ICD-9: 780.79 ICD-10: R53.81 Active 09/29/2016 Unknown Vascular dementia without behavioral disturbance ICD-9: 290.40 ICD-10: F01.50 Active 12/12/2017 Unknown Generalized anxiety disorder ICD-9: 300.02 ICD-10: F41.1 Active 01/13/2016 Unknown Paroxysmal atrial fibrillation ICD-9: 427.31 ICD-10: I48.0 Active 01/13/2016 Unknown Localized edema ICD-9 : 782.3 ICD-10: R60.0 Active 01/13/2016 Unknown Major depressive disorder, single [...] Problems Condition Codes Effective Dates Condition Status Diarrhea, unspecified ICD-9: 787.91 ICD-10: R19.7 12/21/2014 Active Essential (primary) hypertension ICD-9: 401.9 ICD-10: I10 01/13/2016 Active Gastro-esophageal reflux disease without esophagitis ICD-9: 530.81 ICD-10: K21.9 03/15/2018 Active Low back pain ICD-9: 724.2 ICD-10: M54.5 09/13/2016 Active Right lower quadrant pain ICD-9: 789.03 ICD-10: R10.31 03/15/2018 Active correction (current) use of anticoagulants ICD-9: V58.61 ICD-10: Z79.01 03/30/2015 Active Other malaise ICD-9: 780.79 ICD-10: R53.81 09/29/2016 Active Vascular dementia without behavioral disturbance ICD-9: 290.40 ICD-10: F01.50 12/12/2017 Active Generalized anxiety disorder ICD-9: 300.02 ICD-10: F41.1 01/13/2016 Active Paroxysmal atrial fibrillation ICD-9: 427.31 ICD-10: I48.0 01/13/2016 Active Localized edema ICD-9 : 782.3 ICD-10: R60.0 01/13/2016 Active Major depressive disorder, single episode, [...] Fill Instructions buspirone 10 mg tablet RxNorm: 393826 TAKE ONE TABLET BY MOUTH THREE TIMES A DAY 03/21/2018 07/18/2018 Active hydrocodone 7.5 mg-acetaminophen 325 mg tablet RxNorm: 456882 1 Tablet(s) PO daily as needed pain 03/15/20182018 Active Flagyl 500 mg tablet RxNorm: 303328 1 Tablet(s) PO TID 201803/24/2018 Inactive potassium chloride ER 10 mEq tablet,extended release RxNorm: 618371 TAKE TWO TABLETS BY MOUTH THREE TIMES A DAY 02/28/2018 07/27/2018 Active hydrocodone 7.5 mg-acetaminophen 325 mg tablet RxNorm: 696253 1 Tablet(s) PO daily as needed pain 02/01/20182018 Inactive Xanax 0.25 mg tablet RxNorm: 782353 1 Tablet(s) PO TID as needed anxiety 01/01/2018 01/20/2018 Inactive hydrocodone 7.5 mg-acetaminophen 325 mg tablet RxNorm: 015377 1 Tablet(s) PO daily as needed pain 12/12/20172017 Inactive cyanocobalamin (vit B-12) 1,000 mcg/mL injection solution RxNorm: 834137 INJECT 1 ML INTRAMUSCULARLY 2 TIMES A MONTH FOR 2 MONTHS, THEN ONCE A MONTH THEREAFTER 11/28/2017 01/22/2018 Inactive hydrocodone 7.5 mg-acetaminophen 325 mg tablet RxNorm: 675623 1-2 Tablet(s) PO Q4- 6H as needed pain 11/21/2017 12/11/2017 Inactive Lasix 40 mg tablet RxNorm: 675278 TAKE ONE TABLET BY MOUTH DAILY 10/23/2017 04/20/2018 Active Lexapro 5 mg tablet RxNorm: 368170 TAKE ONE TABLET BY MOUTH EVERY EVENING 10/23/2017 12/21/2017 Inactive buspirone 10 mg tablet RxNorm: 918718 TAKE ONE TABLET BY MOUTH THREE TIMES A DAY 10/02/2017 02/28/2018 Inactive omeprazole 20 mg capsule,delayed release RxNorm: 883410 TAKE ONE CAPSULE BY MOUTH TWICE A DAY 09/13/2017 03/11/2018 Inactive Levaquin 750 mg tablet RxNorm: 850682 1 tab every other day for 5 doses 1 Tablet(s ) PO 08/29/2017 08/28/2017 Inactive Levaquin 750 mg tablet RxNorm: 510783 1 tab every other day for 5 doses 1 Tablet(s ) PO 08/29/2017 09/02/2017 Inactive hydrocodone 7.5 mg-acetaminophen 325 mg tablet RxNorm: 515578 1-2 Tablet(s) PO Q4- 6H as needed pain 08/28/2017 09/26/2017 Inactive potassium chloride ER 10 mEq tablet,extended release RxNorm: 752768 TAKE TWO TABLETS BY MOUTH THREE TIMES A DAY 08/28/2017 12/25/2017 Inactive metoprolol tartrate 25 mg tablet RxNorm: 353575 TAKE 1/2 TABLET BY MOUTH TWO TIMES A DAY 07/25/2017 07/19/2018 Active Lexapro 5 mg tablet RxNorm: 322988 TAKE ONE TABLET BY MOUTH EVERY EVENING 07/21/2017 10/18/2017 Inactive hydrocodone 7.5 mg-acetaminophen 325 mg tablet RxNorm: 402153 1-2 Tablet(s) PO Q4- 6H as needed pain 07/19/2017 08/17/2017 Inactive hydrocodone 7.5 mg-acetaminophen 325 mg tablet RxNorm: 723449 1-2 Tablet(s) PO Q4- 6H as needed pain 07/03/2017 07/18/2017 Inactive hydrocodone 7.5 mg-acetaminophen 325 mg tablet RxNorm: 757788 1-2 Tablet(s) PO Q4- 6H as needed pain 05/25/2017 06/23/2017 Inactive cyanocobalamin (vit B-12) 1,000 mcg/mL injection solution RxNorm: 645062 INJECT 1 ML INTRAMUSCULARLY 2 TIMES A MONTH FOR 2 MONTHS, THEN ONCE A MONTH THEREAFTER 05/19/2017 08/10/2017 Inactive warfarin 5 mg tablet RxNorm: 184833 TAKE ONE TABLET BY MOUTH DAILY 04/26/2017 04/20/2018 Active buspirone 10 mg tablet RxNorm: 596901 TAKE ONE TABLET BY MOUTH THREE TIMES A DAY 04/26/2017 09/22/2017 Inactive Xanax 0.25 mg tablet RxNorm: 744545 1 Tablet(s) PO TID as needed anxiety 04/17/2017 05/14/2017 Inactive Levaquin 500 mg tablet RxNorm: 072291 1 Tablet(s) PO Q72H x3 doses 04/11/2017 04/10/2017 Inactive Levaquin 500 mg tablet RxNorm: 265470 1 Tablet(s) PO Q72H x3 doses 04/11/2017 07/03/2017 Inactive potassium chloride ER 10 mEq tablet,extended release RxNorm: 200551 TAKE TWO TABLETS BY MOUTH THREE TIMES A DAY 03/27/2017 08/23/2017 Inactive Tamiflu 75 mg capsule RxNorm: 402309 1 Capsule(s) PO BID 201707/03/2017 Inactive Zofran 4 mg tablet RxNorm: 633842 1 Tablet(s) PO QID as needed nausea 03/23/2017 06/20/2017 Inactive Zofran 4 mg tablet RxNorm: 435186 1 Tablet(s) PO QID as needed nausea 03/23/2017 03/22/2017 Inactive Tamiflu 75 mg capsule RxNorm: 269802 1 Capsule(s) PO BID 201703/22/2017 Inactive lisinopril 10 mg tablet RxNorm: 746197 TAKE ONE-HALF TABLET BY MOUTH DAILY 03/10/2017 06/02/2018 Active metolazone 5 mg tablet RxNorm: 921379 1 Tablet(s) PO TIW 201703/01/2018 Inactive hydrocodone 7.5 mg-acetaminophen 325 mg tablet RxNorm: 813119 1-2 Tablet(s) PO Q4- 6H as needed pain 02/23/2017 05/24/2017 Inactive omeprazole 20 mg capsule,delayed release RxNorm: 851547 Capsule(s) TAKE ONE CAPSULE BY MOUTH TWICE A DAY 02/08/2017 Inactive metolazone 5 mg tablet RxNorm: 368433 TAKE 1 TABLET BY MOUTH TWICE WEEKLY 02/08/2017 03/06/2017 Inactive Lexapro 5 mg tablet RxNorm: 794162 1 Tablet(s) PO QPM 201603/06/2017 Inactive hydrocodone 7.5 mg-acetaminophen 325 mg tablet RxNorm: 870303 1-2 Tablet(s) PO Q4- 6H as needed pain 01/16/2017 02/22/2017 Inactive Lasix 40 mg tablet RxNorm: 645915 TAKE ONE TABLET BY MOUTH DAILY 01/11/2017 10/07/2017 Inactive metoprolol tartrate 25 mg tablet RxNorm: 719041 TAKE 1/2 TABLET BY MOUTH TWO TIMES A DAY 01/11/2017 07/09/2017 Inactive allopurinol 300 mg tablet RxNorm: 740921 TAKE ONE TABLET BY MOUTH DAILY 01/09/2017 06/07/2017 Inactive hydrocodone 7.5 mg-acetaminophen 325 mg tablet RxNorm: 442781 1-2 Tablet(s) PO Q4- 6H as needed pain 12/06/2016 01/15/2017 Inactive lisinopril 10 mg tablet RxNorm: 180731 TAKE ONE-HALF TABLET BY MOUTH DAILY 12/02/2016 03/09/2017 Inactive buspirone 10 mg tablet RxNorm: 941877 TAKE ONE TABLET BY MOUTH THREE TIMES A DAY 10/25/2016 01/22/2017 Inactive buspirone 10 mg tablet RxNorm: 068682 TAKE ONE TABLET BY MOUTH THREE TIMES A DAY 10/25/2016 10/24/2016 Inactive hydrocodone 7.5 mg-acetaminophen 325 mg tablet RxNorm: 923665 1-2 or 2 Tablet(s) PO Q4-6H as needed pain 10/25/20162016 Inactive cyanocobalamin (vit B-12) 1,000 mcg/mL injection solution RxNorm: 135172 INJECT 1 ML INTRAMUSCULARLY 2 TIMES A MONTH FOR 2 MONTHS, THEN ONCE A MONTH THEREAFTER 10/24/2016 02/12/2017 Inactive metolazone 5 mg tablet RxNorm: 272473 TAKE 1 TABLET BY MOUTH TWICE WEEKLY 09/23/2016 01/12/2017 Inactive hydrocodone 7.5 mg-acetaminophen 325 mg tablet RxNorm: 598881 1-2 or 2 Tablet(s) PO Q4-6H as needed pain 09/13/20162016 Inactive Keflex 500 mg capsule RxNorm: 106516 1 Capsule(s) PO TID 201609/15/2016 Inactive Take with a probiotic BID Keflex 500 mg capsule RxNorm: 086239 1 Capsule(s) PO TID 201609/08/2016 Inactive Take with a probiotic BID metoprolol tartrate 25 mg tablet RxNorm: 319663 TAKE 1/2 TABLET BY MOUTH TWO TIMES A DAY 09/07/2016 01/04/2017 Inactive potassium chloride ER 10 mEq tablet,extended release RxNorm: 486679 TAKE TWO TABLETS BY MOUTH THREE TIMES A DAY 09/01/2016 02/27/2017 Inactive hydrocodone 7.5 mg-acetaminophen 325 mg tablet RxNorm: 647597 1 or 2 Tablet(s) PO Q4-6H as needed pain 08/31/20162016 Inactive omeprazole 20 mg capsule,delayed release RxNorm: 826571 TAKE ONE CAPSULE BY MOUTH TWICE A DAY 08/24/2016 02/07/2017 Inactive hydrocodone 7.5 mg-acetaminophen 325 mg tablet RxNorm: 819837 1 or 2 Tablet(s) PO Q4-6H as needed pain 08/05/20162016 Inactive lisinopril 10 mg tablet RxNorm: 946745 TAKE ONE-HALF TABLET BY MOUTH DAILY 07/28/2016 12/01/2016 Inactive hydrocodone 7.5 mg-acetaminophen 325 mg tablet RxNorm: 766771 1 or 2 Tablet(s) PO Q4-6H as needed pain 07/05/20162016 Inactive allopurinol 300 mg tablet RxNorm: 220185 TAKE ONE TABLET BY MOUTH DAILY 06/16/2016 12/12/2016 Inactive metoprolol tartrate 25 mg tablet RxNorm: 319697 TAKE 1/2 TABLET BY MOUTH TWO TIMES A DAY 06/16/2016 08/14/2016 Inactive buspirone 10 mg tablet RxNorm: 932414 TAKE ONE TABLET BY MOUTH THREE TIMES A DAY 06/15/2016 10/12/2016 Inactive hydrocodone 7.5 mg-acetaminophen 325 mg tablet RxNorm: 404746 1 or 2 Tablet(s) PO Q4-6H as needed pain 06/07/20162016 Inactive metoprolol tartrate 25 mg tablet RxNorm: 886567 1/2 Tablet(s) PO QPM 05/10/2016 06/08/2016 Inactive lisinopril 10 mg tablet RxNorm: 478750 1/2 Tablet(s) PO daily 04/26/2016 07/27/2016 Inactive hydrocodone 7.5 mg-acetaminophen 325 mg tablet RxNorm: 825064 1 or 2 Tablet(s) PO Q4-6H as needed pain 04/25/20162016 Inactive lisinopril 10 mg tablet RxNorm: 698674 1/2 Tablet(s) PO daily 04/25/2016 04/25/2016 Inactive metoprolol tartrate 25 mg tablet RxNorm: 338537 1/2 Tablet(s) PO BID 04/25/2016 05/09/2016 Inactive allopurinol 300 mg tablet RxNorm: 549446 TAKE ONE TABLET BY MOUTH DAILY 04/19/2016 06/15/2016 Inactive metolazone 5 mg tablet RxNorm: 989056 TAKE 1 TABLET BY MOUTH TWICE WEEKLY 04/19/2016 09/05/2016 Inactive potassium chloride ER 10 mEq tablet,extended release RxNorm: 427412 2 Tablet(s) PO TID 03/21/2016 08/17/2016 Inactive warfarin 5 mg tablet RxNorm: 639106 1 Tablet(s) PO daily TAKE ONE TABLET BY MOUTH DAILY 03/21/2016 03/15/[address] Echevarria manages potassium chloride ER 10 mEq tablet,extended release(part/ cryst) RxNorm: 9450448 2 Tablet(s) PO TID 03/11/2016 03/20/2016 Inactive Xanax 0.25 mg tablet RxNorm: 738162 1 Tablet(s) PO TID as needed anxiety 03/10/2016 04/06/2016 Inactive Xanax 0.25 mg tablet RxNorm: 935922 1 Tablet(s) PO TID as needed anxiety 03/10/2016 12/31/2017 Inactive hydrocodone 7.5 mg-acetaminophen 325 mg tablet RxNorm: 343809 1 or 2 Tablet(s) PO Q4-6H as needed pain 02/26/20162016 Inactive Flonase Allergy Relief 50 mcg/actuation nasal spray, suspension RxNorm: 0176300 1 [place] NASAL each nare daily 01/19/2016 03/18/2016 Inactive cefdinir 300 mg capsule RxNorm: 705145 1 Capsule(s) PO BID 01/23/2016 Inactive take probiotic BID x 7 days Flonase Allergy Relief 50 mcg/actuation nasal spray, suspension RxNorm: 8889092 1 [place] NASAL each nare daily 01/19/2016 01/18/2016 Inactive allopurinol 300 mg tablet RxNorm: 405058 TAKE ONE TABLET BY MOUTH DAILY 01/18/2016 04/16/2016 Inactive Lasix 40 mg tablet RxNorm: 380658 1 Tablet(s) PO daily 201501/07/2017 Inactive (this was only twice daily x1 week) now it's daily cefdinir 300 mg capsule RxNorm: 164991 1 Capsule(s) PO BID 01/17/2016 Inactive take probiotic BID x 7 days cefdinir 300 mg capsule RxNorm: 416835 1 Capsule(s) PO BID 01/10/2016 Inactive buspirone 10 mg tablet RxNorm: 432935 TAKE ONE TABLET BY MOUTH THREE TIMES A DAY 01/11/2016 06/08/2016 Inactive hydrocodone 7.5 mg-acetaminophen 325 mg tablet RxNorm: 375375 1 or 2 Tablet(s) PO Q4-6H as needed pain 12/28/20152015 Inactive potassium chloride ER 10 mEq tablet,extended release(part/ cryst) RxNorm: 9747190 2 po TID x 2 days then 2 po BID Tablet(s) 12/28/2015 03/10/2016 Inactive potassium chloride ER 10 mEq tablet,extended release(part/ cryst) RxNorm: 8741491 TAKE ONE TABLET BY MOUTH TWICE A DAY FOR 1 WEEK THEN RETURN TO DAILY 12/28/2015 12/27/2015 Inactive meclizine 25 mg tablet RxNorm: 691815 1 Tablet(s) PO BID PRN No Stop Date Active potassium chloride ER 10 mEq tablet,extended release(part/ cryst) RxNorm: 6138916 1 Tablet(s) PO TID 12/08/2015 03/10/2016 Inactive potassium chloride ER 10 mEq tablet,extended release(part/ cryst) RxNorm: 8663212 2 Tablet(s) PO daily 11/26/20152015 Inactive cyanocobalamin (vit B-12) 1,000 mcg/mL injection solution RxNorm: 253552 INJECT 1 ML INTRAMUSCULARLY 2 TIMES A MONTH FOR 2 MONTHS, THEN ONCE A MONTH THEREAFTER 11/26/2015 04/23/2016 Inactive potassium chloride ER 10 mEq tablet,extended release(part/ cryst) RxNorm: 9862778 3 Tablet(s) PO daily 11/23/20152015 Inactive Lasix 40 mg tablet RxNorm: 746307 1 Tablet(s) PO daily 201501/13/2016 Inactive (this was only twice daily x1 week) now it's daily metolazone 5 mg tablet RxNorm: 808233 1 Tablet(s) BIW TAKE ONE TABLET BY MOUTH DAILY 11/12/2015 04/18/2016 Inactive hydrocodone 7.5 mg-acetaminophen 325 mg tablet RxNorm: 474736 1 or 2 Tablet(s) PO Q4-6H as needed pain 11/12/20152015 Inactive Lasix 40 mg tablet RxNorm: 820406 1 Tablet(s) PO daily 201511/11/2015 Inactive (this was only twice daily x1 week) now it's daily metolazone 5 mg tablet RxNorm: 703267 Tablet(s) TAKE ONE TABLET BY MOUTH DAILY 10/22/2015 10/29/2015 Inactive potassium chloride ER 10 mEq tablet,extended release(part/ cryst) RxNorm: 1618071 1 Tablet(s) PO daily 10/08/20152015 Inactive twice daily x 1 week then return to daily Lasix 40 mg tablet RxNorm: 806481 1 Tablet(s) PO daily 201511/09/2015 Inactive twice daily x 1 week then daily thereafter Keflex 500 mg capsule RxNorm: 777594 1 Capsule(s) PO TID 201510/02/2015 Inactive Keflex 500 mg capsule RxNorm: 979489 1 Capsule(s) PO TID 201509/22/2015 Inactive hydrocodone 7.5 mg-acetaminophen 325 mg tablet RxNorm: 970029 1 or 2 Tablet(s) PO Q4-6H as needed pain 09/22/20152015 Inactive potassium chloride ER 10 mEq tablet,extended release(part/ cryst) RxNorm: 0591392 1 Tablet(s) PO BID 09/22/2015 10/07/2015 Inactive twice daily x 1 week then return to daily Lasix 40 mg tablet RxNorm: 110894 1 Tablet(s) PO BID 201510/07/2015 Inactive twice daily x 1 week then daily thereafter allopurinol 300 mg tablet RxNorm: 203363 1 Tablet(s) PO daily 09/09/2015 01/06/2016 Inactive diltiazem 90 mg tablet RxNorm: 843838 Tablet(s) TAKE ONE TABLET BY MOUTH THREE TIMES A DAY 09/02/2015 01/28/2016 Inactive diltiazem 90 mg tablet RxNorm: 271237 TAKE ONE TABLET BY MOUTH THREE TIMES A DAY 08/31/2015 01/28/2016 Inactive diltiazem 90 mg tablet RxNorm: 756782 TAKE ONE TABLET BY MOUTH THREE TIMES A DAY 08/31/2015 09/01/2015 Inactive Xanax 0.25 mg tablet RxNorm: 430011 1 Tablet(s) PO TID as needed anxiety 08/28/2015 09/26/2015 Inactive Xanax 0.25 mg tablet RxNorm: 826327 1 Tablet(s) PO TID as needed anxiety 08/28/2015 08/27/2015 Inactive potassium chloride ER 10 mEq tablet,extended release(part/ cryst) RxNorm: 366485 TAKE ONE TABLET BY MOUTH DAILY 08/27/2015 2015 Inactive omeprazole 20 mg capsule,delayed release RxNorm: 878042 TAKE ONE CAPSULE BY MOUTH TWICE A DAY 08/16/2015 02/11/2016 Inactive omeprazole 20 mg capsule,delayed release RxNorm: 500485 TAKE ONE CAPSULE BY MOUTH TWICE A DAY 08/16/2015 08/15/2015 Inactive hydrocodone 7.5 mg-acetaminophen 325 mg tablet RxNorm: 392872 1 or 2 Tablet(s) PO Q4-6H as needed pain 08/11/20152015 Inactive omeprazole 20 mg capsule,delayed release RxNorm: 906785 Capsule(s) TAKE ONE CAPSULE BY MOUTH TWICE A DAY 08/03/2015 Inactive omeprazole 20 mg capsule,delayed release RxNorm: 584421 Capsule(s) TAKE ONE CAPSULE BY MOUTH TWICE A DAY 07/31/2015 Inactive buspirone 10 mg tablet RxNorm: 554535 TAKE ONE TABLET BY MOUTH THREE TIMES A DAY 07/13/2015 01/08/2016 Inactive metolazone 5 mg tablet RxNorm: 888688 TAKE ONE TABLET BY MOUTH DAILY 07/02/2015 07/09/2015 Inactive metolazone 5 mg tablet RxNorm: 567475 1 Tablet(s) PO daily 06/18/2015 Inactive metolazone 5 mg tablet RxNorm: 838077 1 Tablet(s) PO daily 06/14/2015 Inactive hydrocodone 7.5 mg-acetaminophen 325 mg tablet RxNorm: 686851 1or2 1 or 2 Tablet(s ) PO Q4-6H as needed pain 06/12/201507/10 Inactive warfarin 1 mg tablet RxNorm: 483380 1 Tablet(s) 04/15/2015 06/22/2015 Inactive take with 3mg to make 4mg on Mon and repeat in 1 week. hydrocodone 7.5 mg-acetaminophen 325 mg tablet RxNorm: 589533 1or2 or 2 Tablet(s) PO Q4-6H as needed pain 03/31/20152015 Inactive hydrocodone 7.5 mg-acetaminophen 325 mg tablet RxNorm: 108346 1or2 or 2 Tablet(s) PO Q4-6H as needed pain 03/25/20152015 Inactive warfarin 5 mg tablet RxNorm: 597066 1 Tablet(s) PO daily TAKE ONE TABLET BY MOUTH DAILY 03/05/2015 06/22/2015 Inactive Xarelto 20 mg tablet RxNorm: 5909583 1 Tablet(s) PO QPM 201503/04/2015 Inactive losartan 100 mg tablet RxNorm: 587622 1 Tablet(s) PO daily 05/201406/22/2015 Inactive [SAVINGS FOR NON-COVERED DRUGS -- BIN:[id number], PCN: [id number], Group: XXXXX, ID# [id number], Questions: . THIS IS NOT INSURANCE.] Kenalog 40 mg/mL suspension for injection RxNorm: 2047519 1 Milliliter(s) Inj 01/30/2015 01/30/2015 Inactive hydrocodone 7.5 mg-acetaminophen 325 mg tablet RxNorm: 342478 1or2 or 2 Tablet(s) PO Q4-6H as needed pain 01/15/20152014 Inactive Lasix 40 mg tablet RxNorm: 685662 1 Tablet(s) PO daily 201409/21/2015 Inactive as needed for swelling-take potassium when you take lasix potassium chloride ER 10 mEq tablet,extended release(part/ cryst) RxNorm: 088346 2 Tablet(s) PO daily 01/06/2015 01/19/2015 Inactive Lasix 40 mg tablet RxNorm: 897826 1 Tablet(s) PO daily 201401/06/2015 Inactive Ok to fill 20mg, not 40mg as needed for swelling-take potassium when you take lasix potassium chloride ER 10 mEq tablet,extended release(part/ cryst) RxNorm: 983372 1 Tablet(s) PO BID 12/30/2014 01/05/2015 Inactive Vitamin D2 50,000 unit capsule RxNorm: 173843 TAKE 1 CAPSULE BY MOUTH ONCE WEEKLY FOR 12 WEEKS 12/30/2014 03/23/2015 Inactive potassium chloride ER 10 mEq tablet,extended release(part/ cryst) RxNorm: 091648 1 Tablet(s) PO daily 12/26/2014 12/29/2014 Inactive potassium chloride ER 10 mEq tablet,extended release(part/ cryst) RxNorm: 702481 1 Tablet(s) PO daily 12/26/2014 12/25/2014 Inactive omeprazole 20 mg capsule,delayed release RxNorm: 434061 TAKE ONE CAPSULE BY MOUTH TWICE A DAY 12/24/2014 07/21/2015 Inactive Flagyl 500 mg tablet RxNorm: 505163 1 Tablet(s) PO TID 201412/20/2014 Inactive Flagyl 500 mg tablet RxNorm: 263281 1 Tablet(s) PO TID 201412/10/2014 Inactive warfarin 3 mg tablet RxNorm: 238019 TAKE ONE TABLET BY MOUTH DAILY 11/13/2014 01/29/2015 Inactive warfarin 3 mg tablet RxNorm: 995777 TAKE ONE TABLET BY MOUTH DAILY 11/13/2014 01/29/2015 Inactive warfarin 3 mg tablet RxNorm: 016202 TAKE ONE TABLET BY MOUTH DAILY 11/13/2014 03/04/2015 Inactive warfarin 3 mg tablet RxNorm: 352718 1 Tablet(s) PO daily 201403/04/2015 Inactive allopurinol 300 mg tablet RxNorm: 738157 1 Tablet(s) PO daily 11/11/2014 03/10/2015 Inactive hydrocodone 7.5 mg-acetaminophen 325 mg tablet RxNorm: 961331 1or2 or 2 Tablet(s) PO Q4-6H as needed pain 11/10/20142014 Inactive hydrocodone 7.5 mg-acetaminophen 325 mg tablet RxNorm: 207231 1or2 or 2 Tablet(s) PO Q4-6H as needed pain 10/15/20142014 Inactive hydrocodone 7.5 mg-acetaminophen 325 mg tablet RxNorm: 292297 1or2 or 2 Tablet(s) PO Q4-6H as needed pain 10/15/20142014 Inactive Kenalog 40 mg/mL suspension for injection RxNorm: 0146503 Milliliter(s) Inj 10/14/2014 10/14/2014 Inactive ceftriaxone 500 mg solution for injection RxNorm: 2886156 Inj 10/14/2014 10/14/2014 Inactive Zithromax Z-Chito 250 mg tablet RxNorm: 731512 1 Tablet(s) PO UD 10/14/2014 01/29/2015 Inactive zpack cefdinir 300 mg capsule RxNorm: 131584 1 Capsule(s) PO BID 10/20/2014 Inactive Vitamin D2 50,000 unit capsule RxNorm: 113312 1 Capsule(s) PO weekly x 12 weeks 09/24/2014 09/23/2014 Inactive Vitamin D2 50,000 unit capsule RxNorm: 738775 1 Capsule(s) PO weekly x 12 weeks 09/24/2014 12/22/2014 Inactive warfarin 1 mg tablet RxNorm: 342192 TAKE 1/2 TABLET BY MOUTH DAILY WITH 3MG TABLET TO EQUAL 3.5MG DAILY 09/22/201404/2014 Inactive warfarin 1 mg tablet RxNorm: 719747 1/2 Tablet(s) PO daily 3.5mg 08/26/2014 2014 Inactive taking with a 3mg to make 3.5mg tablets Lasix 20 mg tablet RxNorm: 670142 1 Tablet(s) PO QDAY PRN 09/24/2014 Inactive Ok to fill 20mg, not 40mg as needed for swelling-take potassium when you take lasix buspirone 10 mg tablet RxNorm: 329654 1 Tablet(s) PO TID 201411/25/2014 Inactive takes it BID but if she feels anxious she takes one during the day Lasix 20 mg tablet RxNorm: 024139 1 Tablet(s) PO QDAY PRN 08/25/2014 Inactive as needed for swelling-take potassium when you take lasix warfarin 1 mg tablet RxNorm: 603664 1/2 Tablet(s) PO daily 3.5mg 08/15/2014 08/21/2014 Inactive taking with a 3mg to make 3.5mg tablets warfarin 3 mg tablet RxNorm: 136450 1 Tablet(s) PO daily 201410/11/2014 Inactive diltiazem 90 mg tablet RxNorm: 118195 1 Tablet(s) PO TID 201408/30/2015 Inactive warfarin 1 mg tablet RxNorm: 250403 1/2 Tablet(s) PO daily 3.5mg 08/05/2014 08/11/2014 Inactive taking with a 3mg to make 3.5mg tablets cyclobenzaprine 10 mg tablet RxNorm: 130836 1 Tablet(s) PO QHS 08/04/2014 11/01/2014 Inactive buspirone 10 mg tablet RxNorm: 658454 1 Tablet(s) PO QID 201408/21/2014 Inactive allopurinol 300 mg tablet RxNorm: 511000 1 Tablet(s) PO daily 08/04/2014 11/01/2014 Inactive clonazepam 0.5 mg tablet RxNorm: 972660 1 Tablet(s) PO daily 09/02/2014 Inactive omeprazole 20 mg capsule,delayed release RxNorm: 302644 1 Capsule(s) PO BID 08/04/2014 11/01/2014 Inactive atenolol 25 mg tablet RxNorm: 411680 1 Tablet(s) PO daily 201411/01/2014 Inactive warfarin 3 mg tablet RxNorm: 416301 1 Tablet(s) PO daily 201408/04/2014 Inactive diphenhydramine 2 % topical cream RxNorm: 4787767 1 Application TOP Q6 PRN 07/24/2014 01/29/2015 Inactive diltiazem 90 mg tablet RxNorm: 740734 1 Tablet(s) PO BID 201408/04/2014 Inactive cyclobenzaprine 10 mg tablet RxNorm: 747239 1 Tablet(s) PO QH 07/24/2014 08/03/2014 Inactive warfarin 2.5 mg tablet RxNorm: 285336 1 Tablet(s) PO daily 08/22/2014 Inactive [SAVINGS FOR NON-COVERED DRUGS -- BIN:[id number], PCN: ASPROD1, Group: XXXXX, ID# [id number], Questions: . THIS IS NOT INSURANCE.] losartan 25 mg tablet RxNorm: 153852 1 Tablet(s) PO daily 201401/29/2015 Inactive [SAVINGS FOR NON-COVERED DRUGS -- BIN:[id number], PCN: ASPROD1, Group: XXXXX, ID # [id number], Questions: . THIS IS NOT INSURANCE.] isosorbide mononitrate oral RxNorm: 6057 oral No Start Date Active diltiazem ER 360 mg tablet,extended release 24 hr RxNorm: 595351 1 Tablet(s) PO daily No Start Date Active benazepril 10 mg tablet RxNorm: 457648 1 Tablet(s) PO daily No Start Date 07/14/2014 Inactive lisinopril 10 mg tablet RxNorm: 471822 1 Tablet(s) PO daily No Start Date 04/24/2016 Inactive clonazepam 0.5 mg tablet RxNorm: 132536 1 Tablet(s) PO daily No Start Date 08/03/2014 Inactive diltiazem 90 mg tablet RxNorm: 063980 1 Tablet(s) PO daily No Start Date 07/23/2014 Inactive atenolol 25 mg tablet RxNorm: 454483 1 Tablet(s) PO daily No Start Date 08/03/2014 Inactive buspirone 10 mg tablet RxNorm: 779245 1 Tablet(s) PO QID No Start Date 08/03/2014 Inactive omeprazole 20 mg capsule,delayed release RxNorm: 772267 1 Capsule(s) PO BID No Start Date 08/03/2014 Inactive allopurinol 300 mg tablet RxNorm: 887341 1 Tablet(s) PO daily No Start Date 08/03/2014 Inactive Xarelto 20 mg tablet RxNorm: 6376601 1 Tablet(s) PO daily No Start Date 03/03/2015 Inactive warfarin 2 mg tablet RxNorm: 405574 1 Tablet(s) PO daily No Start Date 07/16/2014 Inactive cyanocobalamin (vit B-12) 1,000 mcg/mL injection solution RxNorm: 502116 1 Milliliter(s) Inj monthly No Start Date Inactive cyclobenzaprine 10 mg tablet RxNorm: 006594 1 Tablet(s) PO BID No Start Date 07/23/2014 Inactive Eliquis 2.5 mg tablet RxNorm: 2289533 1 Tablet(s) PO daily No Start Date 03/03/2015 Inactive Medication Administered Medication Codes Instructions Start Date Status Kenalog 40 mg/mL suspension for injection RxNorm: 4038340 1Milliliter 01/30/2015 No longer Active Kenalog 40 mg/mL suspension for injection RxNorm: 3868355 Milliliter 10/14/2014 No longer Active ceftriaxone 500 mg solution for injection RxNorm: 9700120 10/14/2014 No longer Active Immunizations Vaccine Codes Date Status Influenza CVX: 141 12/10/2015 completed Assessments Condition Codes Effective Dates Gastro-esophageal reflux disease without esophagitis ICD-10 : K21.9 ICD-9: 530.81 03/15/2018 Right lower quadrant pain ICD-10: R10.31 ICD-9: 789.03 03/15/2018 Essential (primary) hypertension ICD-10: I10 ICD-9: 401.9 03/15/2018 Low back pain ICD-10: M54.5 ICD-9: 724.2 03/15/2018 Diarrhea, unspecified ICD-10: R19.7 ICD-9: 787.91 03/15/2018 Other malaise ICD-10: R53.81 ICD-9: 780.79 12/12/2017 Vascular dementia without behavioral disturbance ICD-10: F01.50 ICD-9: 290.40 12/12/2017 correction (current) use of anticoagulants ICD-10: Z79.01 ICD-9: V58.61 12/12/2017 Paroxysmal atrial fibrillation ICD-10: I48.0 ICD-9: 427.31 09/05/2017 Localized edema ICD-10: R60.0 ICD-9: 782.3 05/09/2017 Major depressive disorder, single episode, unspecified [...] Reason For Visit Effective Dates Notes hypertension 03/15/2018 fatigue 12/12/2017 fatigue 09/05/2017 hypertension [...] Code Item Item Code Result Date Pt [id number] PT 31.7 seconds 03/28/2018 Pt Ptp8549 INR 3.1 03/28/2018 Pt Obs0092 Low Intensity - 1.5-2.0 03/28/2018 Pt Yqh7947 Mod intensity - 2.0-3.0 03/28/2018 Pt Aeq4471 Hi intensity - 3.0-4.0 03/28/2018 Metabolic Ord15 [...] Metabolic Ord15 CALCIUM 9.0 mg/dL 02/21/2018 Pt Nfd8650 PT 23.4 seconds 02/21/2018 Pt Tat2620 INR 2.1 02/21/2018 Pt Nqv1194 Low Intensity - 1.5-2.0 02/21/2018 Pt Mkm8669 Mod intensity - 2.0-3.0 02/21/2018 Pt Cja6031 Hi intensity - 3.0-4.0 02/21/2018 Pt Fwq6213 PT 27.0 seconds 01/15/2018 Pt Bjl8788 INR 2.5 01/15/2018 Pt Swj9035 Low Intensity - 1.5-2.0 01/15/2018 Pt Xhr5388 Mod intensity - 2.0-3.0 01/15/2018 Pt Hny5510 Hi intensity - 3.0-4.0 01/15/2018 Metabolic Ord15 [...] Metabolic Ord15 CALCIUM 9.2 mg/dL 01/15/2018 Pt Ktu6343 PT 29.3 seconds 12/18/2017 Pt Eaz4738 INR 2.8 12/18/2017 Pt Rog9558 Low Intensity - 1.5-2.0 12/18/2017 Pt Zwq9989 Mod intensity - 2.0-3.0 12/18/2017 Pt Eig8518 Hi intensity - 3.0-4.0 12/18/2017 Metabolic Ord15 [...] Ord15 CALCIUM 9.7 mg/dL 12/18/2017 Comp Metabolic Aut115 NA 138 mEq/L 09/29/2015 Comp Metabolic Zla925 K 4.6 mEq/L 09/29/2015 Comp Metabolic Xid402 CL 102 mEq/L 09/29/2015 Comp Metabolic Tfg628 CO2 28.0 mEq/L 09/29/2015 Comp Metabolic Ifk475 ANION GAP 13 09/29/2015 Comp Metabolic Oqr080 GLUCOSE 83 mg/dL 09/29/2015 Comp Metabolic Utz074 Creat 1.1 mg/dL 09/29/2015 Comp Metabolic Ogj261 eGFR 52 ml/min/1.73m2 09/29/2015 Comp Metabolic Vfq975 BUN 18 mg/dL 09/29/2015 Comp Metabolic Ccy765 B/C Ratio 16.7 Ratio 09/29/2015 Comp Metabolic Wou648 CALCIUM 9.6 mg/dL 09/29/2015 Comp Metabolic Uew155 ALK PHOS 188 U/L 09/29/2015 Comp Metabolic Bpg468 AST(SGOT) 19 U/L 09/29/2015 Comp Metabolic Zln871 ALT(SGPT) 12 U/L 09/29/2015 Comp Metabolic Nwx065 BILI T 0.6 mg/dL 09/29/2015 Comp Metabolic Wim596 ALBUMIN 4.0 g/dL 09/29/2015 Comp Metabolic Stj564 TPRO 6.6 g/dL 09/29/2015 Comp Metabolic Xjn645 GLOB 2.6 g/dL 09/29/2015 Comp Metabolic Elk669 A/G Ratio 1.5 Ratio 09/29/2015 Comp Metabolic Dug135 Osmo 277 mOsmo 09/29/2015 Cbc With Differential [...] 84.1 fl 09/29/2015 Cbc With Differential Ord2 Webb% 18.3 % 09/29/2015 Cbc With Differential Ord2 [...] 1.41 K/ul 09/29/2015 Cbc With Differential Ord2 Webb ABS# 1.8 K/ul 09/29/2015 Cbc With Differential Ord2 Eos ABS# 0.2 K/ul 09/29/2015 Cbc With Differential Ord2 Baso ABS# 0.1 K/ul 09/29/2015 Comp Metabolic Fov555 NA 134 mEq/L 09/22/2015 Comp Metabolic Gli505 K 4.7 mEq/L 09/22/2015 Comp Metabolic Lgm283 CL 98 mEq/L 09/22/2015 Comp Metabolic Hou967 CO2 26.0 mEq/L 09/22/2015 Comp Metabolic Cva429 ANION GAP 15 09/22/2015 Comp Metabolic Xak886 GLUCOSE 83 mg/dL 09/22/2015 Comp Metabolic Ioj427 Creat 1.1 mg/dL 09/22/2015 Comp Metabolic Sgv852 eGFR 52 ml/min/1.73m2 09/22/2015 Comp Metabolic Vin560 BUN 19 mg/dL 09/22/2015 Comp Metabolic Tag584 B/C Ratio 17.8 Ratio 09/22/2015 Comp Metabolic Tbd099 CALCIUM 9.4 mg/dL 09/22/2015 Comp Metabolic Mch648 ALK PHOS 182 U/L 09/22/2015 Comp Metabolic Vcg449 AST(SGOT) 30 U/L 09/22/2015 Comp Metabolic Rgl518 ALT(SGPT) 16 U/L 09/22/2015 Comp Metabolic Pfa924 BILI T 0.8 mg/dL 09/22/2015 Comp Metabolic Bjm681 ALBUMIN 3.9 g/dL 09/22/2015 Comp Metabolic Lcz257 TPRO 6.8 g/dL 09/22/2015 Comp Metabolic Wzm030 GLOB 2.9 g/dL 09/22/2015 Comp Metabolic Uxc808 A/G Ratio 1.3 Ratio 09/22/2015 Comp Metabolic Rxs779 Osmo 270 mOsmo 09/22/2015 Cbc With Differential [...] 16.8 % 09/22/2015 Cbc With Differential Ord2 Webb% 15.4 % 09/22/2015 Cbc With Differential Ord2 [...] 1.81 K/ul 09/22/2015 Cbc With Differential Ord2 Webb ABS# 1.7 K/ul 09/22/2015 Cbc With Differential [...] 27.8 pg 06/02/2015 Cbc With Differential Ord2 Webb% 16.6 % 06/02/2015 Cbc With Differential Ord2 MCHC 31.7 pg 06/02/2015 Cbc With Differential Ord2 Eos% 0.5 % 06/02/2015 Cbc With Differential Ord2 PLT 457 K/ul 06/02/2015 Cbc With Differential Ord2 Baso% 0.3 % 06/02/2015 Cbc With Differential Ord2 RDW 16.6 % 06/02/2015 Cbc With Differential Ord2 Neut ABS# 6.95 K/ul 06/02/2015 Cbc With Differential Ord2 Lymph ABS# 1.74 K/ul 06/02/2015 Cbc With Differential Ord2 Webb ABS# 1.8 K/ul 06/02/2015 Cbc With Differential Ord2 Eos ABS# 0.1 K/ul 06/02/2015 Cbc With Differential Ord2 Baso ABS# 0.0 K/ul 06/02/2015 Cbc With Differential Ord2 New Analyzer Notice Please note new ref ranges starting 03-11-2015 due to implemntation of new five part differential hematolgy analyzer. 06/02/2015 Pt Pty1855 PT 21.8 seconds 06/02/2015 Pt Bsa9366 INR 2.0 06/02/2015 Pt Bvp4103 Low Intensity - 1.5-2.0 06/02/2015 Pt Sdq7117 Mod intensity - 2.0-3.0 06/02/2015 Pt Xfe3065 Hi intensity - 3.0-4.0 06/02/2015 Comp Metabolic Eyv200 NA 132 mEq/L 06/02/2015 Comp Metabolic Opw917 K 4.4 mEq/L 06/02/2015 Comp Metabolic Vwd891 CL 94 mEq/L 06/02/2015 Comp Metabolic Pts483 CO2 26.0 mEq/L 06/02/2015 Comp Metabolic Mdn771 ANION GAP 16 06/02/2015 Comp Metabolic Ovz944 GLUCOSE 97 mg/dL 06/02/2015 Comp Metabolic Bfv914 Creat 1.2 mg/dL 06/02/2015 Comp Metabolic Pfx230 eGFR 46 ml/min/1.73m2 06/02/2015 Comp Metabolic Mux462 BUN 19 mg/dL 06/02/2015 Comp Metabolic Pgr488 B/C Ratio 15.8 Ratio 06/02/2015 Comp Metabolic Ngm379 CALCIUM 9.4 mg/dL 06/02/2015 Comp Metabolic Vfv152 ALK PHOS 178 U/L 06/02/2015 Comp Metabolic Zqx975 AST(SGOT) 32 U/L 06/02/2015 Comp Metabolic Ojj632 ALT(SGPT) 31 U/L 06/02/2015 Comp Metabolic Xus220 BILI T 0.6 mg/dL 06/02/2015 Comp Metabolic See543 ALBUMIN 4.0 g/dL 06/02/2015 Comp Metabolic Hak782 TPRO 6.5 g/dL 06/02/2015 Comp Metabolic Omt808 GLOB 2.5 g/dL 06/02/2015 Comp Metabolic Evs446 A/G Ratio 1.6 Ratio 06/02/2015 Comp Metabolic Two333 Osmo 267 mOsmo 06/02/2015 B12 Yuj718 B12 160.00 pg/ml 04/01/2015 Iron Ord72 Iron 39 ug/dl 04/01/2015 Vitamin D 25 Oh Mon4805 VITAMIN D, 25 HYDROXY 61.20 ng/mL Tsh Ord6 hTSH II 1.87 uIU/mL 03/31/2015 Pt Rlq6713 PT 36.9 seconds 03/31/2015 Pt Cjz9820 INR 3.9 03/31/2015 Pt Ofu5631 Low Intensity - 1.5-2.0 03/31/2015 Pt Irc4411 Mod intensity - 2.0-3.0 03/31/2015 Pt Bhv0488 Hi intensity - 3.0-4.0 03/31/2015 Comp Metabolic Kdp843 NA 131 mEq/L 03/31/2015 Comp Metabolic Qml600 K 5.3 mEq/L 03/31/2015 Comp Metabolic Cql103 CL 97 mEq/L 03/31/2015 Comp Metabolic Bla773 CO2 24.0 mEq/L 03/31/2015 Comp Metabolic Mhu057 ANION GAP 15 03/31/2015 Comp Metabolic Iak081 GLUCOSE 84 mg/dL 03/31/2015 Comp Metabolic Fbr198 Creat 1.3 mg/dL 03/31/2015 Comp Metabolic Yqo634 eGFR 42 ml/min/1.73m2 03/31/2015 Comp Metabolic Xip226 BUN 26 mg/dL 03/31/2015 Comp Metabolic Pxr719 B/C Ratio 20.2 Ratio 03/31/2015 Comp Metabolic Ebt651 CALCIUM 9.4 mg/dL 03/31/2015 Comp Metabolic Cfl810 ALK PHOS 172 U/L 03/31/2015 Comp Metabolic Lgt699 AST(SGOT) 21 U/L 03/31/2015 Comp Metabolic Zan382 ALT(SGPT) 27 U/L 03/31/2015 Comp Metabolic Dgi999 BILI T 0.5 mg/dL 03/31/2015 Comp Metabolic Lkq153 ALBUMIN 4.0 g/dL 03/31/2015 Comp Metabolic Pfm574 TPRO 6.8 g/dL 03/31/2015 Comp Metabolic Cxg222 GLOB 2.8 g/dL 03/31/2015 Comp Metabolic Ftr024 A/G Ratio 1.4 Ratio 03/31/2015 Comp Metabolic Mzs567 Osmo 267 mOsmo 03/31/2015 Cbc With Differential [...] 88.9 fl 03/31/2015 Cbc With Differential Ord2 Webb% 14.0 % 03/31/2015 Cbc With Differential Ord2 [...] 1.62 K/ul 03/31/2015 Cbc With Differential Ord2 Webb ABS# 1.6 K/ul 03/31/2015 Cbc With Differential [...] Magnesium Ord90 Mag 2.0 mg/dL 09/19/2014 Pt Srr6283 PT 29.1 seconds 09/19/2014 Pt Ggf6534 INR 2.9 09/19/2014 Pt Bkz3960 Low Intensity - 1.5-2.0 09/19/2014 Pt Jac2528 Mod intensity - 2.0-3.0 09/19/2014 Pt Prc7084 Hi intensity - 3.0-4.0 09/19/2014 Tsh Ord6 hTSH II 1.40 uIU/mL 09/19/2014 Lipid Ord30 CHOL 216 mg/dL 09/19/2014 Lipid Ord30 HDL 78.0 mg/dl 09/19/2014 Lipid Ord30 TRIG 85 mg/dL 09/19/2014 Lipid Ord30 LDL 121 mg/dL 09/19/2014 Lipid Ord30 C/HDL 2.8 Ratio 09/19/2014 Vitamin D 25 Oh Hzg1304 VITAMIN D, 25 HYDROXY 14.13 ng/mL Comp Metabolic Zuf357 NA 134 mEq/L 09/19/2014 Comp Metabolic Nmg024 K 4.7 mEq/L 09/19/2014 Comp Metabolic Rrv213 CL 98 mEq/L 09/19/2014 Comp Metabolic Lrl496 CO2 27.0 mEq/L 09/19/2014 Comp Metabolic Qnt452 ANION GAP 14 09/19/2014 Comp Metabolic Vot262 GLUCOSE 94 mg/dL 09/19/2014 Comp Metabolic Wof966 Creat 1.1 mg/dL 09/19/2014 Comp Metabolic Tzt033 eGFR 49 ml/min/1.73m2 09/19/2014 Comp Metabolic Vgs233 BUN 14 mg/dL 09/19/2014 Comp Metabolic Anm635 B/C Ratio 12.3 Ratio 09/19/2014 Comp Metabolic Qzo432 CALCIUM 9.7 mg/dL 09/19/2014 Comp Metabolic Fuz226 ALK PHOS 150 U/L 09/19/2014 Comp Metabolic Lgd560 AST(SGOT) 16 U/L 09/19/2014 Comp Metabolic Atf126 ALT(SGPT) 9 U/L 09/19/2014 Comp Metabolic Rpr086 BILI T 0.8 mg/dL 09/19/2014 Comp Metabolic Jpd921 ALBUMIN 3.9 g/dL 09/19/2014 Comp Metabolic Pbu918 TPRO 6.8 g/dL 09/19/2014 Comp Metabolic Smk869 GLOB 2.9 g/dL 09/19/2014 Comp Metabolic Sox151 A/G Ratio 1.3 Ratio 09/19/2014 Comp Metabolic Mpn592 Osmo 268 mOsmo 09/19/2014 Cbc With Differential [...] of Systems System Result Effective Dates Gastrointestinal abdominal pain 2018 Gastrointestinal No constipation [...] lips 03/15/2018 None Full Exam - General 1994 Ears/Nose/Throat lips/teeth/gingiva Overall: normal dentition 03/15/2018 None [...] clear 10/29/2014 None Full Exam - General 1995 Ears/Nose/Throat otoscopic exam External auditory canal: partial [...] Model/CDA Sections, Assigned to/Indira Ibanez SNOMED CT: [id number] CPT-4: 06184Gwtayxc 12/10/2015 TRIAMCINOLONE ACET INJ NOS CPT-4: J3301 01/30/2015 URINALYSIS NONAUTO W/O SCOPE CPT-4: 99356 11/07/2014 ROCEPHIN, PER 250 MG CPT-4: J0696 10/14/2014 TRIAMCINOLONE ACET INJ NOS CPT-4: J3301 10/14/2014 Vital Signs Date Vital 03/15/2018 Blood Pressure 1: 146/60 Code : 8480-6 BMI: 25.2 Code : 56645-5 Heart Rate 1 : 79 bpm Height: 5'2" SpO2: 98% Weight: 138 lbs 12/12/2017 Blood Pressure 1: 130/60 Code : 8480-6 BMI: 25.2 Code : 96394-1 Heart Rate 1 : 60 bpm Height: 5'2" SpO2: 98% Weight: 138 lbs 09/05/2017 Blood Pressure 1: 108/46 Code : 8480-6 BMI: 24.0 Code : 02006-0 Heart Rate 1 : 70 bpm Height: 5'2" SpO2: 96% Weight: 131 lbs 05/09/2017 Blood Pressure 1: 122/82 Code : 8480-6 BMI: 25.2 Code : 20050-6 Heart Rate 1 : 72 bpm Height: 5'2" SpO2: 95% Weight: 138 lbs 03/07/2017 Blood Pressure 1: 108/52 Code : 8480-6 BMI: 27.6 Code : 64824-1 Heart Rate 1 : 72 bpm Height: 5'2" SpO2: 96% Weight: 151 lbs 01/24/2017 Blood Pressure 1: 126/60 Code : 8480-6 BMI: 27.1 Code : 54817-4 Heart Rate 1 : 60 bpm Height: [...] Code : 8480-6 BMI: 26.8 Code : 73654-0 Heart Rate 1 : 59 bpm Height: 5'2" SpO2: 97% Weight: 146 lbs 8 oz 05/10/2016 Blood Pressure 1: 120/56 Code : 8480-6 BMI: 27.1 Code : 81082-7 Heart Rate 1 : 63 bpm Height: 5'2" SpO2: 97% Weight: 148 lbs 04/25/2016 Blood Pressure 1: 134/66 Code : 8480-6 BMI: 24.9 Code : 33745-5 Heart Rate 1 : 118 bpm Height: 5'2" SpO2: 93% Temperature: 36.8 (C) / 98.3 (F) Weight: 136 lbs 01/14/2016 Blood Pressure 1: 132/78 Code : 8480-6 BMI: 25.6 Code : 00676-5 Heart Rate 1 : 97 bpm Height: 5'2" SpO2: 95% Weight: 140 lbs 12/10/2015 Blood Pressure 1: 118/72 Code : 8480-6 BMI: 26.2 Code : 87466-5 Heart Rate 1 : 68 bpm Height: 5'2" SpO2: 95% Weight: 143 lbs 11/12/2015 Blood Pressure 1: 140/80 Code : 8480-6 BMI: 25.6 Code : 53393-5 Heart Rate 1 : 77 bpm Height: 5'2" SpO2: 93% Weight: 140 lbs 10/08/2015 Blood Pressure 1: 132/60 Code : 8480-6 BMI: 26.2 Code : 71742-8 Heart Rate 1 : 77 bpm Height: 5'2" SpO2: 96% Weight: 143 lbs 09/29/2015 Blood Pressure 1: 130/62 Code : 8480-6 BMI: 27.1 Code : 46843-1 Heart Rate 1 : 86 bpm Height: 5'2" SpO2: 93% Weight: 148 lbs 09/22/2015 Blood Pressure 1: 164/72 Code : 8480-6 BMI: 28.2 Code : 03025-3 Heart Rate 1 : 79 bpm Height: 5'2" SpO2: 92% Weight: 154 lbs 07/21/2015 Blood Pressure 1: 124/70 Code : 8480-6 BMI: 24.5 Code : 40570-5 Heart Rate 1 : 71 bpm Height: 5'2" SpO2: 98% Weight: 134 lbs 06/23/2015 Blood Pressure 1: 122/68 Code : 8480-6 BMI: 25.4 Code : 45084-6 Heart Rate 1 : 78 bpm Height: 5'2" SpO2: 92% Weight: 139 lbs 06/12/2015 Blood Pressure 1: 154/62 Code : 8480-6 BMI: 27.4 Code : 48842-9 Heart Rate 1 : 87 bpm Height: 5'2" SpO2: 94% Weight: 150 lbs 06/02/2015 Blood Pressure 1: 140/68 Code : 8480-6 Heart Rate 1: 90 bpm SpO2: 91% Weight: 142 lbs 03/31/2015 Blood Pressure 1: 120/56 Code : 8480-6 BMI: 23.6 Code : 32922-9 Heart Rate 1 : 82 bpm Height: 5'2" SpO2: 98% Weight: 129 lbs 01/30/2015 Blood Pressure 1: 108/62 Code : 8480-6 BMI: 22.1 Code : 34243-4 Heart Rate 1 : 8299 bpm Height: 5'2 " SpO2: 99% Weight: 121 lbs 12/22/2014 Blood Pressure 1: 130/70 Code : 8480-6 BMI: 21.8 Code : 91669-9 Heart Rate 1 : 106 bpm Height: 5'2" SpO2: 98% Weight: 119 lbs 10/29/2014 Blood Pressure 1: 118/58 Code : 8480-6 BMI: 23.2 Code : 38488-3 Heart Rate 1 : 74 bpm Height: 5'2" SpO2: 93% Weight: 127 lbs 10/14/2014 Blood Pressure 1: 128/64 Code : 8480-6 BMI: 22.9 Code : 82773-9 Heart Rate 1 : 79 bpm Height: 5'2" SpO2: 93% Temperature: 35.9 (C) / 96.6 (F) Weight: 125 lbs 09/19/2014 Blood Pressure 1: 132/72 Code : 8480-6 BMI: 22.9 Code : 13543-2 Heart Rate 1 : 84 bpm Height: 5'2" SpO2: 96% Weight: 125 lbs 08/22/2014 Blood Pressure 1: 124/72 Code : 8480-6 BMI: 23.0 Code : 72635-0 Heart Rate 1 : 64 bpm Height: 5'2" Weight: 126 lbs 08/04/2014 Blood Pressure 1: 126/86 Code : 8480-6 BMI: 23.6 Code : 99794-2 Height: 5'2" Respiratory Rate: 20 bpm Weight: 129 lbs 07/24/2014 Blood Pressure 1: 116/72 Code : 8480-6 BMI: 23.6 Code : 98777-0 Heart Rate 1 : 74 bpm Height: 5'2" Weight: 129 lbs 07/15/2014 Blood Pressure 1: 132/78 Code : 8480-6 BMI: 24.1 Code : 13085-0 Heart Rate 1 : 74 bpm Height: 5'2" SpO2: 97% Weight: 132 lbs Functional Status No Functional Status data History of Present Illness Symptom Name Status Result Effective Date Notes Quality primary hypertension 03/15/2018 None Onset and [...] data Encounters Encounter Performer Location Codes Date ([id number]) 21661 EST. PATIENT, LEVEL IV Diagnosis: Right lower quadrant pain[ICD10: R10.31] Diagnosis: Diarrhea, unspecified[ICD10: R19.7] Diagnosis: Essential (primary) hypertension[ICD10: I10] Diagnosis: Low back pain[ICD10: M54.5] Diagnosis: Gastro-esophageal reflux disease without esophagitis[ICD10: K21.9] Merle Daigle MD, [facility] CPT-4: 89423 03/15/2018 ([id number]) 10499 EST. 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 PATIENT, LEVEL IV Diagnosis: Essential (primary) hypertension[ICD10: I10] Diagnosis: Generalized anxiety disorder[ICD10: F41.1] Diagnosis: Major depressive disorder, single episode, unspecified[ICD10: F32.9] Diagnosis: Localized edema[ICD10: R60.0] Veronica Daigle MD, [facility] CPT- 4: 83184 05/09/2017 ([id number]) 20776 EST. PATIENT, LEVEL IV Diagnosis: Essential (primary) hypertension[ICD10: I10] Diagnosis: Paroxysmal atrial fibrillation[ICD10: I48.0] Diagnosis: Generalized anxiety disorder[ICD10: F41.1] Diagnosis: Localized edema[ICD10: R60.0] Veronica Daigle MD, [facility] CPT- 4: 00275 03/07/2017 ([id number]) 50538 EST. PATIENT, LEVEL IV Diagnosis: Generalized anxiety disorder[ICD10: F41.1] Diagnosis: Major depressive disorder, single episode, unspecified[ICD10: F32.9] Diagnosis: Essential (primary) hypertension[ICD10: I10] Diagnosis: Paroxysmal atrial fibrillation[ICD10: I48.0] Merle Daigle MD, [facility] CPT-4: 75673 01/24/2017 [id number] EST. PATIENT, LEVEL IV Diagnosis: Other chest pain[ICD10: R07.89] Diagnosis: Other malaise[ICD10: R53.81] Opal Daigle MD, [facility] CPT-4 : 25356 09/29/2016 ([id number]) 66411 EST. PATIENT, LEVEL IV Diagnosis: Essential (primary) hypertension[ICD10: I10] Diagnosis: Paroxysmal atrial fibrillation[ICD10: I48.0] Diagnosis: Localized edema[ICD10: R60.0] Diagnosis: Generalized anxiety disorder[ICD10: F41.1] Diagnosis: Low back pain[ICD10: M54.5] Merle Daigle MD, [facility] CPT-4: 81501 09/13/2016 ([id number]) 36338 EST. PATIENT, LEVEL III Diagnosis: Essential (primary) hypertension[ICD10: I10] Diagnosis: Paroxysmal atrial fibrillation[ICD10: I48.0] Merle Daigle MD, [facility] CPT-4: 27225 05/31/2016 ([id number]) 32199 EST. PATIENT, LEVEL III Diagnosis: Essential (primary) hypertension[ICD10: I10] Diagnosis: Localized edema[ICD10: R60.0] Merle Daigle MD, [facility] CPT-4: 15620 05/10/2016 ([id number]) 90749 EST. PATIENT, LEVEL IV Diagnosis: Paroxysmal atrial fibrillation[ICD10: I48.0] Diagnosis: Essential (primary) hypertension[ICD10: I10] Diagnosis: Generalized anxiety disorder[ICD10: F41.1] Merle Daigle MD, [facility] CPT-4: 79576 04/25/2016 ([id number]) 98114 EST. PATIENT, LEVEL IV Diagnosis: Generalized anxiety disorder[ICD10: F41.1] Diagnosis: Essential (primary) hypertension[ICD10: I10] Diagnosis: Paroxysmal atrial fibrillation[ICD10: I48.0] Diagnosis: Localized edema[ICD10: R60.0] Diagnosis: Acute recurrent maxillary sinusitis[ICD10: J01.01] Merle Daigle MD, [facility] CPT-4: 67133 01/14/2016 ([id number]) 94804 EST. PATIENT, LEVEL IV Diagnosis: Essential (primary) hypertension[ICD10: I10] Diagnosis: Generalized anxiety disorder[ICD10: F41.1] Diagnosis: Localized edema[ICD10: R60.0] Diagnosis: Encounter for immunization[ICD10: Z23] Merle Daigle MD, [facility] CPT-4: 95180 12/10/2015 ([id number]) 32967 EST. PATIENT, LEVEL III Diagnosis: Essential (primary) hypertension[ICD10: I10] Diagnosis: Localized edema[ICD10: R60.0] Merle Daigle MD, [facility] CPT-4: 63314 11/12/2015 ([id number]) 98545 EST. PATIENT, LEVEL III Diagnosis: Essential (primary) hypertension[ICD10: I10] Diagnosis: Localized edema[ICD10: R60.0] Merle Daigle MD, [facility] CPT-4: 43417 10/08/2015 ([id number]) 12528 EST. PATIENT, LEVEL III Diagnosis: Localized edema[ICD10: R60.0] Diagnosis: Essential (primary) hypertension[ICD10: I10] Merle Daigle MD, [facility] CPT-4: 44996 09/29/2015 ([id number]) 36849 EST. PATIENT, LEVEL IV Diagnosis: Localized edema[ICD10: R60.0] Diagnosis: Essential (primary) hypertension[ICD10: I10] Diagnosis: Paroxysmal atrial fibrillation[ICD10: I48.0] Merle Daigle MD, [facility] CPT-4: 48930 09/22/2015 ([id number]) 90204 EST. PATIENT, LEVEL III Diagnosis: Essential (primary) hypertension[ICD10: I10] Diagnosis: Paroxysmal atrial fibrillation[ICD10: I48.0] Merle Daigle MD, [facility] CPT-4: 34106 07/21/2015 ([id number]) 10464 EST. 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 PATIENT, LEVEL IV Diagnosis: Essential (primary) hypertension[ICD10: I10] Diagnosis: Paroxysmal atrial fibrillation[ICD10: I48.0] Diagnosis: Localized edema[ICD10: R60.0] Diagnosis: Encounter for therapeutic drug level monitoring[ICD10: Z51.81] Merle Daigle MD, [facility] CPT-4: 58923 06/02/2015 ([id number]) [id number] EST. 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 PATIENT, LEVEL III Diagnosis: Essential (primary) hypertension[ICD10: I10] Diagnosis: Allergic rhinitis due to pollen[ICD10: J30.1] Merle Daigle MD, [facility] CPT-4: 61338 01/30/2015 [id number] EST. PATIENT, LEVEL III Diagnosis: Localized edema[ICD10: R60.0] Diagnosis: Diarrhea, unspecified[ICD10: R19.7] Veronica Daigle MD, [facility] CPT-4: 72860 12/22/2014 ([id number]) [id number] EST. PATIENT, LEVEL IV Diagnosis: DYSPHAGIA, PHARYNGEAL[ICD9: 787.23] Diagnosis: Low back pain[ICD9: 724.2] Diagnosis: Cough[ICD9: 786.2] Diagnosis: Anticoagulated on Coumadin[ICD9: V58.83] Diagnosis: MUSCLE WEAKNESS-GENERAL[ICD9: 728.87] Diagnosis: EDEMA[ICD9: 782.3] Veronica Daigle MD, [facility] CPT-4: 13592 10/29/2014 ([id number]) [id number] EST. PATIENT, LEVEL IV Diagnosis: Low back pain[ICD9: 724.2] Diagnosis: Pneumonia[ICD9: 486] Diagnosis: Cough[ICD9: 786.2] Diagnosis: Anticoagulated on Coumadin[ICD9: V58.83] Diagnosis: DYSPHAGIA, NOS[ICD9: 787.20] Diagnosis: MUSCLE WEAKNESS-GENERAL[ICD9: 728.87] Merle Daigle MD, [facility] CPT-4: 48063 10/14/2014 ([id number]) 40912 EST. PATIENT, LEVEL IV Diagnosis: ESSENTIAL HYPERTENSION[ICD9: 401.9] Diagnosis: ESOPHAGEAL REFLUX[ICD9: 530.81] Diagnosis: SLEEP RELATED LEG CRAMPS[ICD9: 327.52] Diagnosis: Atrial fibrillation[ICD9: 427.31] Diagnosis: Anticoagulated on Coumadin[ICD9: V58.83] Diagnosis: VITAMIN D DEFICIENCY[ICD9: 268.9] Merle Daigle MD, [facility] CPT-4: 22469 09/19/2014 ([id number]) 06946 EST. PATIENT, LEVEL III Diagnosis: EDEMA[ICD9: 782.3] Diagnosis: LONG-TERM USE ANTICOAGUL[ICD9: V58.61] Merle Daigle MD, [facility] CPT-4: 44959 08/22/2014 [id number]) [id number] EST. PATIENT, LEVEL IV Diagnosis: Skin irritation[ICD9: 709.9] Diagnosis: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
[2018-04-18 23:50] LABS: BASOPHILS # (AUTO) 0.1 10^3/uL (0.0-0.1); BASOPHILS % (AUTO) 1 % (0-10); EOSINOPHILS # (AUTO) 0.1 10^3/uL (0.0-0.3); EOSINOPHILS % (AUTO) 1 % (0-10); HEMATOCRIT 33 % (35-52); HEMOGLOBIN 10.2 G/DL (11.5-16.0); LYMPHOCYTES # (AUTO) 1.8 X 10^3 (1.0-4.0); LYMPHOCYTES % (AUTO) 16 % (12-44); MEAN CORPUSCULAR HEMOGLOBIN 25 PG (25-34); MEAN CORPUSCULAR HGB CONC 31 G/DL (32-36); MEAN CORPUSCULAR VOLUME 80 FL (80-99); MEAN PLATELET VOLUME 11.2 FL (7.4-10.4); MONOCYTES # (AUTO) 1.8 X 10^3 (0.0-1.0); MONOCYTES % (AUTO) 16 % (0-12); NEUTROPHILS # (AUTO) 7.2 X 10^3 (1.8-7.8); NEUTROPHILS % (AUTO) 66 % (42-75); PLATELET COUNT 368 10^3/uL (130-400); RED CELL DISTRIBUTION WIDTH 17.6 % (10.0-14.5); WHITE BLOOD COUNT 10.9 10^3/uL (4.3-11.0)
--- OUTSIDE RECORDS SUMMARY | 2018-04-18 23:50 | XMS REPORT | CCD ---
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 Name Role Phone PP Unavailable CCM Unavailable Summary Purpose Interface Exchange Insurance Providers Payer name Policy type / Coverage type Covered alliance party ID Effective Begin Date Effective End Date WPS Medicare Part B Medicare Part B [id number] Unknown Family history Mother Diagnosis Age At Onset Hypertension Unknown Heart Attack Unknown Social History Social History Element Codes Description Effective Dates Marital status Unknown 07/15/2014 Marital status Unknown 07/15/2014 Number of children Unknown 0 07/15/2014 Number of children Unknown 0 07/15/2014 Employment Unknown Retired 07/15/2014 Employment Unknown Retired 07/15/[address]: 724630911 Has never smoked or chewed tobacco 07/15/[address]: 927514849 Has never smoked or chewed tobacco 07/15/[address]: 636989882 Never drinks alcohol 07/15/[address]: 621560006 Never drinks alcohol 07/15/2014 Allergies, Adverse Reactions, [...] ICD-9: 789.03 ICD-10: R10.31 Active 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/2018 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 ICD-9: V58.61 ICD-10: [...] pain ICD-9: 789.03 ICD-10: R10.31 03/15/2018 Active retirement (current) use of anticoagulants ICD-9: V58.61 ICD-10: [...] Fill Instructions buspirone 10 mg tablet RxNorm: 488277 TAKE ONE TABLET BY MOUTH THREE TIMES A DAY 03/21/2018 07/18/2018 Active hydrocodone 7.5 mg-acetaminophen 325 mg tablet RxNorm: 156664 1 Tablet(s) PO daily as needed pain 03/15/20182018 Active Flagyl 500 mg tablet RxNorm: 212330 1 Tablet(s) PO TID 201803/24/2018 Active potassium chloride ER 10 mEq tablet,extended release RxNorm: 786181 TAKE TWO TABLETS BY MOUTH THREE TIMES A DAY 02/28/2018 07/27/2018 Active hydrocodone 7.5 mg-acetaminophen 325 mg tablet RxNorm: 176277 1 Tablet(s) PO daily as needed pain 02/01/20182018 Inactive Xanax 0.25 mg tablet RxNorm: 384340 1 Tablet(s) PO TID as needed anxiety 01/01/2018 01/20/2018 Inactive hydrocodone 7.5 mg-acetaminophen 325 mg tablet RxNorm: 392195 1 Tablet(s) PO daily as needed pain 12/12/20172017 Inactive cyanocobalamin (vit B-12) 1,000 mcg/mL injection solution RxNorm: 749214 INJECT 1 ML INTRAMUSCULARLY 2 TIMES A MONTH FOR 2 MONTHS, THEN ONCE A MONTH THEREAFTER 11/28/2017 01/22/2018 Inactive hydrocodone 7.5 mg-acetaminophen 325 mg tablet RxNorm: 899075 1-2 Tablet(s) PO Q4- 6H as needed pain 11/21/2017 12/11/2017 Inactive Lasix 40 mg tablet RxNorm: 406540 TAKE ONE TABLET BY MOUTH DAILY 10/23/2017 04/20/2018 Active Lexapro 5 mg tablet RxNorm: 665378 TAKE ONE TABLET BY MOUTH EVERY EVENING 10/23/2017 12/21/2017 Inactive buspirone 10 mg tablet RxNorm: 257676 TAKE ONE TABLET BY MOUTH THREE TIMES A DAY 10/02/2017 02/28/2018 Inactive omeprazole 20 mg capsule,delayed release RxNorm: 679024 TAKE ONE CAPSULE BY MOUTH TWICE A DAY 09/13/2017 03/11/2018 Inactive Levaquin 750 mg tablet RxNorm: 011664 1 tab every other day for 5 doses 1 Tablet(s ) PO 08/29/2017 08/28/2017 Inactive Levaquin 750 mg tablet RxNorm: 032275 1 tab every other day for 5 doses 1 Tablet(s ) PO 08/29/2017 09/02/2017 Inactive hydrocodone 7.5 mg-acetaminophen 325 mg tablet RxNorm: 736223 1-2 Tablet(s) PO Q4- 6H as needed pain 08/28/2017 09/26/2017 Inactive potassium chloride ER 10 mEq tablet,extended release RxNorm: 819257 TAKE TWO TABLETS BY MOUTH THREE TIMES A DAY 08/28/2017 12/25/2017 Inactive metoprolol tartrate 25 mg tablet RxNorm: 134012 TAKE 1/2 TABLET BY MOUTH TWO TIMES A DAY 07/25/2017 07/19/2018 Active Lexapro 5 mg tablet RxNorm: 288333 TAKE ONE TABLET BY MOUTH EVERY EVENING 07/21/2017 10/18/2017 Inactive hydrocodone 7.5 mg-acetaminophen 325 mg tablet RxNorm: 609891 1-2 Tablet(s) PO Q4- 6H as needed pain 07/19/2017 08/17/2017 Inactive hydrocodone 7.5 mg-acetaminophen 325 mg tablet RxNorm: 187734 1-2 Tablet(s) PO Q4- 6H as needed pain 07/03/2017 07/18/2017 Inactive hydrocodone 7.5 mg-acetaminophen 325 mg tablet RxNorm: 634223 1-2 Tablet(s) PO Q4- 6H as needed pain 05/25/2017 06/23/2017 Inactive cyanocobalamin (vit B-12) 1,000 mcg/mL injection solution RxNorm: 466430 INJECT 1 ML INTRAMUSCULARLY 2 TIMES A MONTH FOR 2 MONTHS, THEN ONCE A MONTH THEREAFTER 05/19/2017 08/10/2017 Inactive warfarin 5 mg tablet RxNorm: 300874 TAKE ONE TABLET BY MOUTH DAILY 04/26/2017 04/20/2018 Active buspirone 10 mg tablet RxNorm: 968723 TAKE ONE TABLET BY MOUTH THREE TIMES A DAY 04/26/2017 09/22/2017 Inactive Xanax 0.25 mg tablet RxNorm: 110928 1 Tablet(s) PO TID as needed anxiety 04/17/2017 05/14/2017 Inactive Levaquin 500 mg tablet RxNorm: 184177 1 Tablet(s) PO Q72H x3 doses 04/11/2017 04/10/2017 Inactive Levaquin 500 mg tablet RxNorm: 307241 1 Tablet(s) PO Q72H x3 doses 04/11/2017 07/03/2017 Inactive potassium chloride ER 10 mEq tablet,extended release RxNorm: 018669 TAKE TWO TABLETS BY MOUTH THREE TIMES A DAY 03/27/2017 08/23/2017 Inactive Tamiflu 75 mg capsule RxNorm: 244781 1 Capsule(s) PO BID 201707/03/2017 Inactive Zofran 4 mg tablet RxNorm: 593194 1 Tablet(s) PO QID as needed nausea 03/23/2017 06/20/2017 Inactive Zofran 4 mg tablet RxNorm: 507097 1 Tablet(s) PO QID as needed nausea 03/23/2017 03/22/2017 Inactive Tamiflu 75 mg capsule RxNorm: 106123 1 Capsule(s) PO BID 201703/22/2017 Inactive lisinopril 10 mg tablet RxNorm: 309118 TAKE ONE-HALF TABLET BY MOUTH DAILY 03/10/2017 06/02/2018 Active metolazone 5 mg tablet RxNorm: 233797 1 Tablet(s) PO TIW 201703/01/2018 Inactive hydrocodone 7.5 mg-acetaminophen 325 mg tablet RxNorm: 549006 1-2 Tablet(s) PO Q4- 6H as needed pain 02/23/2017 05/24/2017 Inactive omeprazole 20 mg capsule,delayed release RxNorm: 560042 Capsule(s) TAKE ONE CAPSULE BY MOUTH TWICE A DAY 02/08/2017 Inactive metolazone 5 mg tablet RxNorm: 077183 TAKE 1 TABLET BY MOUTH TWICE WEEKLY 02/08/2017 03/06/2017 Inactive Lexapro 5 mg tablet RxNorm: 758298 1 Tablet(s) PO QPM 201603/06/2017 Inactive hydrocodone 7.5 mg-acetaminophen 325 mg tablet RxNorm: 039761 1-2 Tablet(s) PO Q4- 6H as needed pain 01/16/2017 02/22/2017 Inactive Lasix 40 mg tablet RxNorm: 162116 TAKE ONE TABLET BY MOUTH DAILY 01/11/2017 10/07/2017 Inactive metoprolol tartrate 25 mg tablet RxNorm: 535322 TAKE 1/2 TABLET BY MOUTH TWO TIMES A DAY 01/11/2017 07/09/2017 Inactive allopurinol 300 mg tablet RxNorm: 670055 TAKE ONE TABLET BY MOUTH DAILY 01/09/2017 06/07/2017 Inactive hydrocodone 7.5 mg-acetaminophen 325 mg tablet RxNorm: 300008 1-2 Tablet(s) PO Q4- 6H as needed pain 12/06/2016 01/15/2017 Inactive lisinopril 10 mg tablet RxNorm: 166491 TAKE ONE-HALF TABLET BY MOUTH DAILY 12/02/2016 03/09/2017 Inactive buspirone 10 mg tablet RxNorm: 629274 TAKE ONE TABLET BY MOUTH THREE TIMES A DAY 10/25/2016 01/22/2017 Inactive buspirone 10 mg tablet RxNorm: 040078 TAKE ONE TABLET BY MOUTH THREE TIMES A DAY 10/25/2016 10/24/2016 Inactive hydrocodone 7.5 mg-acetaminophen 325 mg tablet RxNorm: 566471 1-2 or 2 Tablet(s) PO Q4-6H as needed pain 10/25/20162016 Inactive cyanocobalamin (vit B-12) 1,000 mcg/mL injection solution RxNorm: 129321 INJECT 1 ML INTRAMUSCULARLY 2 TIMES A MONTH FOR 2 MONTHS, THEN ONCE A MONTH THEREAFTER 10/24/2016 02/12/2017 Inactive metolazone 5 mg tablet RxNorm: 321762 TAKE 1 TABLET BY MOUTH TWICE WEEKLY 09/23/2016 01/12/2017 Inactive hydrocodone 7.5 mg-acetaminophen 325 mg tablet RxNorm: 332086 1-2 or 2 Tablet(s) PO Q4-6H as needed pain 09/13/20162016 Inactive Keflex 500 mg capsule RxNorm: 246316 1 Capsule(s) PO TID 201609/15/2016 Inactive Take with a probiotic BID Keflex 500 mg capsule RxNorm: 237040 1 Capsule(s) PO TID 201609/08/2016 Inactive Take with a probiotic BID metoprolol tartrate 25 mg tablet RxNorm: 522025 TAKE 1/2 TABLET BY MOUTH TWO TIMES A DAY 09/07/2016 01/04/2017 Inactive potassium chloride ER 10 mEq tablet,extended release RxNorm: 717200 TAKE TWO TABLETS BY MOUTH THREE TIMES A DAY 09/01/2016 02/27/2017 Inactive hydrocodone 7.5 mg-acetaminophen 325 mg tablet RxNorm: 373738 1 or 2 Tablet(s) PO Q4-6H as needed pain 08/31/20162016 Inactive omeprazole 20 mg capsule,delayed release RxNorm: 379931 TAKE ONE CAPSULE BY MOUTH TWICE A DAY 08/24/2016 02/07/2017 Inactive hydrocodone 7.5 mg-acetaminophen 325 mg tablet RxNorm: 453701 1 or 2 Tablet(s) PO Q4-6H as needed pain 08/05/20162016 Inactive lisinopril 10 mg tablet RxNorm: 802403 TAKE ONE-HALF TABLET BY MOUTH DAILY 07/28/2016 12/01/2016 Inactive hydrocodone 7.5 mg-acetaminophen 325 mg tablet RxNorm: 174397 1 or 2 Tablet(s) PO Q4-6H as needed pain 07/05/20162016 Inactive allopurinol 300 mg tablet RxNorm: 651140 TAKE ONE TABLET BY MOUTH DAILY 06/16/2016 12/12/2016 Inactive metoprolol tartrate 25 mg tablet RxNorm: 165220 TAKE 1/2 TABLET BY MOUTH TWO TIMES A DAY 06/16/2016 08/14/2016 Inactive buspirone 10 mg tablet RxNorm: 625692 TAKE ONE TABLET BY MOUTH THREE TIMES A DAY 06/15/2016 10/12/2016 Inactive hydrocodone 7.5 mg-acetaminophen 325 mg tablet RxNorm: 138445 1 or 2 Tablet(s) PO Q4-6H as needed pain 06/07/20162016 Inactive metoprolol tartrate 25 mg tablet RxNorm: 663795 1/2 Tablet(s) PO QPM 05/10/2016 06/08/2016 Inactive lisinopril 10 mg tablet RxNorm: 769001 1/2 Tablet(s) PO daily 04/26/2016 07/27/2016 Inactive hydrocodone 7.5 mg-acetaminophen 325 mg tablet RxNorm: 772409 1 or 2 Tablet(s) PO Q4-6H as needed pain 04/25/20162016 Inactive lisinopril 10 mg tablet RxNorm: 213801 1/2 Tablet(s) PO daily 04/25/2016 04/25/2016 Inactive metoprolol tartrate 25 mg tablet RxNorm: 445562 1/2 Tablet(s) PO BID 04/25/2016 05/09/2016 Inactive allopurinol 300 mg tablet RxNorm: 579517 TAKE ONE TABLET BY MOUTH DAILY 04/19/2016 06/15/2016 Inactive metolazone 5 mg tablet RxNorm: 054656 TAKE 1 TABLET BY MOUTH TWICE WEEKLY 04/19/2016 09/05/2016 Inactive potassium chloride ER 10 mEq tablet,extended release RxNorm: 733409 2 Tablet(s) PO TID 03/21/2016 08/17/2016 Inactive warfarin 5 mg tablet RxNorm: 894267 1 Tablet(s) PO daily TAKE ONE TABLET BY MOUTH DAILY 03/21/2016 03/15/[address] Echevarria manages potassium chloride ER 10 mEq tablet,extended release(part/ cryst) RxNorm: 8476539 2 Tablet(s) PO TID 03/11/2016 03/20/2016 Inactive Xanax 0.25 mg tablet RxNorm: 107398 1 Tablet(s) PO TID as needed anxiety 03/10/2016 04/06/2016 Inactive Xanax 0.25 mg tablet RxNorm: 624729 1 Tablet(s) PO TID as needed anxiety 03/10/2016 12/31/2017 Inactive hydrocodone 7.5 mg-acetaminophen 325 mg tablet RxNorm: 109446 1 or 2 Tablet(s) PO Q4-6H as needed pain 02/26/20162016 Inactive Flonase Allergy Relief 50 mcg/actuation nasal spray, suspension RxNorm: 1290078 1 [place] NASAL each nare daily 01/19/2016 03/18/2016 Inactive cefdinir 300 mg capsule RxNorm: 096378 1 Capsule(s) PO BID 01/23/2016 Inactive take probiotic BID x 7 days Flonase Allergy Relief 50 mcg/actuation nasal spray, suspension RxNorm: 9014146 1 [place] NASAL each nare daily 01/19/2016 01/18/2016 Inactive allopurinol 300 mg tablet RxNorm: 612190 TAKE ONE TABLET BY MOUTH DAILY 01/18/2016 04/16/2016 Inactive Lasix 40 mg tablet RxNorm: 279540 1 Tablet(s) PO daily 201501/07/2017 Inactive (this was only twice daily x1 week) now it's daily cefdinir 300 mg capsule RxNorm: 375259 1 Capsule(s) PO BID 01/17/2016 Inactive take probiotic BID x 7 days cefdinir 300 mg capsule RxNorm: 156371 1 Capsule(s) PO BID 01/10/2016 Inactive buspirone 10 mg tablet RxNorm: 199904 TAKE ONE TABLET BY MOUTH THREE TIMES A DAY 01/11/2016 06/08/2016 Inactive hydrocodone 7.5 mg-acetaminophen 325 mg tablet RxNorm: 801444 1 or 2 Tablet(s) PO Q4-6H as needed pain 12/28/20152015 Inactive potassium chloride ER 10 mEq tablet,extended release(part/ cryst) RxNorm: 4334200 2 po TID x 2 days then 2 po BID Tablet(s) 12/28/2015 03/10/2016 Inactive potassium chloride ER 10 mEq tablet,extended release(part/ cryst) RxNorm: 5204098 TAKE ONE TABLET BY MOUTH TWICE A DAY FOR 1 WEEK THEN RETURN TO DAILY 12/28/2015 12/27/2015 Inactive meclizine 25 mg tablet RxNorm: 796221 1 Tablet(s) PO BID PRN No Stop Date Active potassium chloride ER 10 mEq tablet,extended release(part/ cryst) RxNorm: 3265106 1 Tablet(s) PO TID 12/08/2015 03/10/2016 Inactive potassium chloride ER 10 mEq tablet,extended release(part/ cryst) RxNorm: 6087230 2 Tablet(s) PO daily 11/26/20152015 Inactive cyanocobalamin (vit B-12) 1,000 mcg/mL injection solution RxNorm: 442145 INJECT 1 ML INTRAMUSCULARLY 2 TIMES A MONTH FOR 2 MONTHS, THEN ONCE A MONTH THEREAFTER 11/26/2015 04/23/2016 Inactive potassium chloride ER 10 mEq tablet,extended release(part/ cryst) RxNorm: 2516502 3 Tablet(s) PO daily 11/23/20152015 Inactive Lasix 40 mg tablet RxNorm: 407759 1 Tablet(s) PO daily 201501/13/2016 Inactive (this was only twice daily x1 week) now it's daily metolazone 5 mg tablet RxNorm: 094645 1 Tablet(s) BIW TAKE ONE TABLET BY MOUTH DAILY 11/12/2015 04/18/2016 Inactive hydrocodone 7.5 mg-acetaminophen 325 mg tablet RxNorm: 587824 1 or 2 Tablet(s) PO Q4-6H as needed pain 11/12/20152015 Inactive Lasix 40 mg tablet RxNorm: 341987 1 Tablet(s) PO daily 201511/11/2015 Inactive (this was only twice daily x1 week) now it's daily metolazone 5 mg tablet RxNorm: 458330 Tablet(s) TAKE ONE TABLET BY MOUTH DAILY 10/22/2015 10/29/2015 Inactive potassium chloride ER 10 mEq tablet,extended release(part/ cryst) RxNorm: 9342359 1 Tablet(s) PO daily 10/08/20152015 Inactive twice daily x 1 week then return to daily Lasix 40 mg tablet RxNorm: 153373 1 Tablet(s) PO daily 201511/09/2015 Inactive twice daily x 1 week then daily thereafter Keflex 500 mg capsule RxNorm: 220774 1 Capsule(s) PO TID 201510/02/2015 Inactive Keflex 500 mg capsule RxNorm: 183194 1 Capsule(s) PO TID 201509/22/2015 Inactive hydrocodone 7.5 mg-acetaminophen 325 mg tablet RxNorm: 461989 1 or 2 Tablet(s) PO Q4-6H as needed pain 09/22/20152015 Inactive potassium chloride ER 10 mEq tablet,extended release(part/ cryst) RxNorm: 8653035 1 Tablet(s) PO BID 09/22/2015 10/07/2015 Inactive twice daily x 1 week then return to daily Lasix 40 mg tablet RxNorm: 505296 1 Tablet(s) PO BID 201510/07/2015 Inactive twice daily x 1 week then daily thereafter allopurinol 300 mg tablet RxNorm: 990997 1 Tablet(s) PO daily 09/09/2015 01/06/2016 Inactive diltiazem 90 mg tablet RxNorm: 307680 Tablet(s) TAKE ONE TABLET BY MOUTH THREE TIMES A DAY 09/02/2015 01/28/2016 Inactive diltiazem 90 mg tablet RxNorm: 777658 TAKE ONE TABLET BY MOUTH THREE TIMES A DAY 08/31/2015 01/28/2016 Inactive diltiazem 90 mg tablet RxNorm: 382199 TAKE ONE TABLET BY MOUTH THREE TIMES A DAY 08/31/2015 09/01/2015 Inactive Xanax 0.25 mg tablet RxNorm: 991392 1 Tablet(s) PO TID as needed anxiety 08/28/2015 09/26/2015 Inactive Xanax 0.25 mg tablet RxNorm: 338801 1 Tablet(s) PO TID as needed anxiety 08/28/2015 08/27/2015 Inactive potassium chloride ER 10 mEq tablet,extended release(part/ cryst) RxNorm: 396161 TAKE ONE TABLET BY MOUTH DAILY 08/27/2015 2015 Inactive omeprazole 20 mg capsule,delayed release RxNorm: 984430 TAKE ONE CAPSULE BY MOUTH TWICE A DAY 08/16/2015 02/11/2016 Inactive omeprazole 20 mg capsule,delayed release RxNorm: 676134 TAKE ONE CAPSULE BY MOUTH TWICE A DAY 08/16/2015 08/15/2015 Inactive hydrocodone 7.5 mg-acetaminophen 325 mg tablet RxNorm: 286356 1 or 2 Tablet(s) PO Q4-6H as needed pain 08/11/20152015 Inactive omeprazole 20 mg capsule,delayed release RxNorm: 481934 Capsule(s) TAKE ONE CAPSULE BY MOUTH TWICE A DAY 08/03/2015 Inactive omeprazole 20 mg capsule,delayed release RxNorm: 764440 Capsule(s) TAKE ONE CAPSULE BY MOUTH TWICE A DAY 07/31/2015 Inactive buspirone 10 mg tablet RxNorm: 926326 TAKE ONE TABLET BY MOUTH THREE TIMES A DAY 07/13/2015 01/08/2016 Inactive metolazone 5 mg tablet RxNorm: 286581 TAKE ONE TABLET BY MOUTH DAILY 07/02/2015 07/09/2015 Inactive metolazone 5 mg tablet RxNorm: 388153 1 Tablet(s) PO daily 06/18/2015 Inactive metolazone 5 mg tablet RxNorm: 077032 1 Tablet(s) PO daily 06/14/2015 Inactive hydrocodone 7.5 mg-acetaminophen 325 mg tablet RxNorm: 010495 1or2 1 or 2 Tablet(s ) PO Q4-6H as needed pain 06/12/201507/10 Inactive warfarin 1 mg tablet RxNorm: 850352 1 Tablet(s) 04/15/2015 06/22/2015 Inactive take with 3mg to make 4mg on Mon and repeat in 1 week. hydrocodone 7.5 mg-acetaminophen 325 mg tablet RxNorm: 116311 1or2 or 2 Tablet(s) PO Q4-6H as needed pain 03/31/20152015 Inactive hydrocodone 7.5 mg-acetaminophen 325 mg tablet RxNorm: 956798 1or2 or 2 Tablet(s) PO Q4-6H as needed pain 03/25/20152015 Inactive warfarin 5 mg tablet RxNorm: 279583 1 Tablet(s) PO daily TAKE ONE TABLET BY MOUTH DAILY 03/05/2015 06/22/2015 Inactive Xarelto 20 mg tablet RxNorm: 1920724 1 Tablet(s) PO QPM 201503/04/2015 Inactive losartan 100 mg tablet RxNorm: 511807 1 Tablet(s) PO daily 05/201406/22/2015 Inactive [SAVINGS FOR NON-COVERED DRUGS -- BIN:[id number], PCN: ASPROD1, Group: XXXXX, ID# [id number], Questions: . THIS IS NOT INSURANCE.] Kenalog 40 mg/mL suspension for injection RxNorm: 1341140 1 Milliliter(s) Inj 01/30/2015 01/30/2015 Inactive hydrocodone 7.5 mg-acetaminophen 325 mg tablet RxNorm: 906364 1or2 or 2 Tablet(s) PO Q4-6H as needed pain 01/15/20152014 Inactive Lasix 40 mg tablet RxNorm: 345910 1 Tablet(s) PO daily 201409/21/2015 Inactive as needed for swelling-take potassium when you take lasix potassium chloride ER 10 mEq tablet,extended release(part/ cryst) RxNorm: 653473 2 Tablet(s) PO daily 01/06/2015 01/19/2015 Inactive Lasix 40 mg tablet RxNorm: 316874 1 Tablet(s) PO daily 201401/06/2015 Inactive Ok to fill 20mg, not 40mg as needed for swelling-take potassium when you take lasix potassium chloride ER 10 mEq tablet,extended release(part/ cryst) RxNorm: 394053 1 Tablet(s) PO BID 12/30/2014 01/05/2015 Inactive Vitamin D2 50,000 unit capsule RxNorm: 079462 TAKE 1 CAPSULE BY MOUTH ONCE WEEKLY FOR 12 WEEKS 12/30/2014 03/23/2015 Inactive potassium chloride ER 10 mEq tablet,extended release(part/ cryst) RxNorm: 743227 1 Tablet(s) PO daily 12/26/2014 12/29/2014 Inactive potassium chloride ER 10 mEq tablet,extended release(part/ cryst) RxNorm: 062697 1 Tablet(s) PO daily 12/26/2014 12/25/2014 Inactive omeprazole 20 mg capsule,delayed release RxNorm: 841517 TAKE ONE CAPSULE BY MOUTH TWICE A DAY 12/24/2014 07/21/2015 Inactive Flagyl 500 mg tablet RxNorm: 718741 1 Tablet(s) PO TID 201412/20/2014 Inactive Flagyl 500 mg tablet RxNorm: 441733 1 Tablet(s) PO TID 201412/10/2014 Inactive warfarin 3 mg tablet RxNorm: 598939 TAKE ONE TABLET BY MOUTH DAILY 11/13/2014 01/29/2015 Inactive warfarin 3 mg tablet RxNorm: 637259 TAKE ONE TABLET BY MOUTH DAILY 11/13/2014 01/29/2015 Inactive warfarin 3 mg tablet RxNorm: 713085 TAKE ONE TABLET BY MOUTH DAILY 11/13/2014 03/04/2015 Inactive warfarin 3 mg tablet RxNorm: 218597 1 Tablet(s) PO daily 201403/04/2015 Inactive allopurinol 300 mg tablet RxNorm: 071843 1 Tablet(s) PO daily 11/11/2014 03/10/2015 Inactive hydrocodone 7.5 mg-acetaminophen 325 mg tablet RxNorm: 440857 1or2 or 2 Tablet(s) PO Q4-6H as needed pain 11/10/20142014 Inactive hydrocodone 7.5 mg-acetaminophen 325 mg tablet RxNorm: 390997 1or2 or 2 Tablet(s) PO Q4-6H as needed pain 10/15/20142014 Inactive hydrocodone 7.5 mg-acetaminophen 325 mg tablet RxNorm: 594694 1or2 or 2 Tablet(s) PO Q4-6H as needed pain 10/15/20142014 Inactive Kenalog 40 mg/mL suspension for injection RxNorm: 0121895 Milliliter(s) Inj 10/14/2014 10/14/2014 Inactive ceftriaxone 500 mg solution for injection RxNorm: 8432701 Inj 10/14/2014 10/14/2014 Inactive Zithromax Z-Chito 250 mg tablet RxNorm: 721175 1 Tablet(s) PO UD 10/14/2014 01/29/2015 Inactive zpack cefdinir 300 mg capsule RxNorm: 297133 1 Capsule(s) PO BID 10/20/2014 Inactive Vitamin D2 50,000 unit capsule RxNorm: 067782 1 Capsule(s) PO weekly x 12 weeks 09/24/2014 09/23/2014 Inactive Vitamin D2 50,000 unit capsule RxNorm: 821524 1 Capsule(s) PO weekly x 12 weeks 09/24/2014 12/22/2014 Inactive warfarin 1 mg tablet RxNorm: 964203 TAKE 1/2 TABLET BY MOUTH DAILY WITH 3MG TABLET TO EQUAL 3.5MG DAILY 09/22/201404/2014 Inactive warfarin 1 mg tablet RxNorm: 947740 1/2 Tablet(s) PO daily 3.5mg 08/26/2014 2014 Inactive taking with a 3mg to make 3.5mg tablets Lasix 20 mg tablet RxNorm: 346517 1 Tablet(s) PO QDAY PRN 09/24/2014 Inactive Ok to fill 20mg, not 40mg as needed for swelling-take potassium when you take lasix buspirone 10 mg tablet RxNorm: 649243 1 Tablet(s) PO TID 201411/25/2014 Inactive takes it BID but if she feels anxious she takes one during the day Lasix 20 mg tablet RxNorm: 776307 1 Tablet(s) PO QDAY PRN 08/25/2014 Inactive as needed for swelling-take potassium when you take lasix warfarin 1 mg tablet RxNorm: 021893 1/2 Tablet(s) PO daily 3.5mg 08/15/2014 08/21/2014 Inactive taking with a 3mg to make 3.5mg tablets warfarin 3 mg tablet RxNorm: 372444 1 Tablet(s) PO daily 201410/11/2014 Inactive diltiazem 90 mg tablet RxNorm: 719354 1 Tablet(s) PO TID 201408/30/2015 Inactive warfarin 1 mg tablet RxNorm: 217570 1/2 Tablet(s) PO daily 3.5mg 08/05/2014 08/11/2014 Inactive taking with a 3mg to make 3.5mg tablets cyclobenzaprine 10 mg tablet RxNorm: 859314 1 Tablet(s) PO QHS 08/04/2014 11/01/2014 Inactive buspirone 10 mg tablet RxNorm: 247242 1 Tablet(s) PO QID 201408/21/2014 Inactive allopurinol 300 mg tablet RxNorm: 396059 1 Tablet(s) PO daily 08/04/2014 11/01/2014 Inactive clonazepam 0.5 mg tablet RxNorm: 660345 1 Tablet(s) PO daily 09/02/2014 Inactive omeprazole 20 mg capsule,delayed release RxNorm: 031164 1 Capsule(s) PO BID 08/04/2014 11/01/2014 Inactive atenolol 25 mg tablet RxNorm: 278600 1 Tablet(s) PO daily 201411/01/2014 Inactive warfarin 3 mg tablet RxNorm: 339405 1 Tablet(s) PO daily 201408/04/2014 Inactive diphenhydramine 2 % topical cream RxNorm: 4454506 1 Application TOP Q6 PRN 07/24/2014 01/29/2015 Inactive diltiazem 90 mg tablet RxNorm: 497031 1 Tablet(s) PO BID 201408/04/2014 Inactive cyclobenzaprine 10 mg tablet RxNorm: 327195 1 Tablet(s) PO QH 07/24/2014 08/03/2014 Inactive warfarin 2.5 mg tablet RxNorm: 532460 1 Tablet(s) PO daily 08/22/2014 Inactive [SAVINGS FOR NON-COVERED DRUGS -- BIN:[id number], PCN: ASPROD1, Group: XXXXX, ID# [id number], Questions: . THIS IS NOT INSURANCE.] losartan 25 mg tablet RxNorm: 784596 1 Tablet(s) PO daily 201401/29/2015 Inactive [SAVINGS FOR NON-COVERED DRUGS -- BIN:[id number], PCN: ASPROD1, Group: XXXXX, ID # [id number], Questions: . THIS IS NOT INSURANCE.] isosorbide mononitrate oral RxNorm: 6057 oral No Start Date Active diltiazem ER 360 mg tablet,extended release 24 hr RxNorm: 292104 1 Tablet(s) PO daily No Start Date Active benazepril 10 mg tablet RxNorm: 767029 1 Tablet(s) PO daily No Start Date 07/14/2014 Inactive lisinopril 10 mg tablet RxNorm: 862498 1 Tablet(s) PO daily No Start Date 04/24/2016 Inactive clonazepam 0.5 mg tablet RxNorm: 574631 1 Tablet(s) PO daily No Start Date 08/03/2014 Inactive diltiazem 90 mg tablet RxNorm: 222671 1 Tablet(s) PO daily No Start Date 07/23/2014 Inactive atenolol 25 mg tablet RxNorm: 070580 1 Tablet(s) PO daily No Start Date 08/03/2014 Inactive buspirone 10 mg tablet RxNorm: 244669 1 Tablet(s) PO QID No Start Date 08/03/2014 Inactive omeprazole 20 mg capsule,delayed release RxNorm: 709700 1 Capsule(s) PO BID No Start Date 08/03/2014 Inactive allopurinol 300 mg tablet RxNorm: 815699 1 Tablet(s) PO daily No Start Date 08/03/2014 Inactive Xarelto 20 mg tablet RxNorm: 2487885 1 Tablet(s) PO daily No Start Date 03/03/2015 Inactive warfarin 2 mg tablet RxNorm: 191776 1 Tablet(s) PO daily No Start Date 07/16/2014 Inactive cyanocobalamin (vit B-12) 1,000 mcg/mL injection solution RxNorm: 523859 1 Milliliter(s) Inj monthly No Start Date Inactive cyclobenzaprine 10 mg tablet RxNorm: 542705 1 Tablet(s) PO BID No Start Date 07/23/2014 Inactive Eliquis 2.5 mg tablet RxNorm: 8748060 1 Tablet(s) PO daily No Start Date 03/03/2015 Inactive Medication Administered Medication Codes Instructions Start Date Status Kenalog 40 mg/mL suspension for injection RxNorm: 0217632 1Milliliter 01/30/2015 No longer Active ceftriaxone 500 mg solution for injection RxNorm: 1415728 10/14/2014 No longer Active Kenalog 40 mg/mL suspension for injection RxNorm: 7018479 Milliliter 10/14/2014 No longer Active Immunizations Vaccine [...] behavioral disturbance ICD-10: F01.50 ICD-9: 290.40 12/12/2017 retirement (current) use of anticoagulants ICD-10: Z79.01 ICD-9: V58.61 12/12/2017 Paroxysmal atrial fibrillation ICD-10: I48.0 ICD-9: 427.31 09/05/2017 Localized edema ICD-10: R60.0 ICD-9: 782.3 05/09/2017 Generalized anxiety disorder ICD-10: F41.1 ICD-9: [...] ICD-9: 477.0 01/30/2015 DYSURIA ICD-9: 788.1 11/07/2014 Low back pain ICD-9: 724.2 10/29/2014 Cough ICD-9: 786.2 10/29/2014 DYSPHAGIA, PHARYNGEAL ICD-9: 787.23 10/29 EDEMA ICD-9: 782.3 10/29/2014 Anticoagulated on Coumadin ICD-9: V58.83 10/29/2014 MUSCLE WEAKNESS-GENERAL ICD-9: 728.87 03/2014 Pneumonia ICD-9: 486 10/14/2014 DYSPHAGIA, NOS ICD-9: 787.20 10/14/2014 ESOPHAGEAL REFLUX ICD-9: 530.81 2014 ESSENTIAL HYPERTENSION ICD-9: 401.9 09/19 VITAMIN D DEFICIENCY ICD-9: 268.9 2014 Atrial fibrillation ICD-9: 427.31 2014 SLEEP RELATED LEG CRAMPS ICD-9: 327.52 LONG-TERM USE ANTICOAGUL ICD-9: V58.61 Skin irritation [...] Code Item Item Code Result Date Pt Bns1045 PT 23.4 seconds 02/21/2018 Pt Hev3920 INR 2.1 02/21/2018 Pt Sfs4446 Low Intensity - 1.5-2.0 02/21/2018 Pt Pzr4889 Mod intensity - 2.0-3.0 02/21/2018 Pt Nun6321 Hi intensity - 3.0-4.0 02/21/2018 Metabolic Ord15 [...] Metabolic Ord15 CALCIUM 9.0 mg/dL 02/21/2018 Pt Ldw4985 PT 27.0 seconds 01/15/2018 Pt Gaw7012 INR 2.5 01/15/2018 Pt Bzy9428 Low Intensity - 1.5-2.0 01/15/2018 Pt Xjy4727 Mod intensity - 2.0-3.0 01/15/2018 Pt Bgx9351 Hi intensity - 3.0-4.0 01/15/2018 Metabolic Ord15 [...] Metabolic Ord15 CALCIUM 9.2 mg/dL 01/15/2018 Pt Nrs0977 PT 29.3 seconds 12/18/2017 Pt Wyh5314 INR 2.8 12/18/2017 Pt Cgz5479 Low Intensity - 1.5-2.0 12/18/2017 Pt Ngq6624 Mod intensity - 2.0-3.0 12/18/2017 Pt Vnq1702 Hi intensity - 3.0-4.0 12/18/2017 Metabolic Ord15 [...] 9.5 g/dl 09/29/2015 Cbc With Differential Ord2 Neut% 65.2 % 09/29/2015 Cbc With Differential Ord2 HCT 30.6 % 09/29/2015 Cbc With Differential Ord2 Lymph% 14.2 % 09/29/2015 Cbc With Differential Ord2 MCV 84.1 fl 09/29/2015 Cbc With Differential Ord2 [facility]% 18.3 % 09/29/2015 Cbc With Differential Ord2 [...] 1.41 K/ul 09/29/2015 Cbc With Differential Ord2 [facility] ABS# 1.8 K/ul 09/29/2015 Cbc With Differential Ord2 Eos ABS# 0.2 K/ul 09/29/2015 Cbc With Differential Ord2 Baso ABS# 0.1 K/ul 09/29/2015 Comp Metabolic Hcn658 NA 138 mEq/L 09/29/2015 Comp Metabolic Diq827 K 4.6 mEq/L 09/29/2015 Comp Metabolic Hmf473 CL 102 mEq/L 09/29/2015 Comp Metabolic Olc083 CO2 28.0 mEq/L 09/29/2015 Comp Metabolic Tcy722 ANION GAP 13 09/29/2015 Comp Metabolic Trf925 GLUCOSE 83 mg/dL 09/29/2015 Comp Metabolic Irx651 Creat 1.1 mg/dL 09/29/2015 Comp Metabolic Prj681 eGFR 52 ml/min/1.73m2 09/29/2015 Comp Metabolic Uez403 BUN 18 mg/dL 09/29/2015 Comp Metabolic Kkb854 B/C Ratio 16.7 Ratio 09/29/2015 Comp Metabolic Oxs347 CALCIUM 9.6 mg/dL 09/29/2015 Comp Metabolic Aum343 ALK PHOS 188 U/L 09/29/2015 Comp Metabolic Fyj646 AST(SGOT) 19 U/L 09/29/2015 Comp Metabolic Kuy583 ALT(SGPT) 12 U/L 09/29/2015 Comp Metabolic Qlq325 BILI T 0.6 mg/dL 09/29/2015 Comp Metabolic Gak685 ALBUMIN 4.0 g/dL 09/29/2015 Comp Metabolic Vlw220 TPRO 6.6 g/dL 09/29/2015 Comp Metabolic Rcs630 GLOB 2.6 g/dL 09/29/2015 Comp Metabolic Xja948 A/G Ratio 1.5 Ratio 09/29/2015 Comp Metabolic Xnv953 Osmo 277 mOsmo 09/29/2015 Cbc With Differential Ord2 WBC 10.76 K/ul 09/22/2015 Cbc With Differential Ord2 RBC 3.69 M/ul 09/22/2015 Cbc With Differential Ord2 HGB 9.5 g/dl 09/22/2015 Cbc With Differential Ord2 Neut% 66.6 % 09/22/2015 Cbc With Differential Ord2 HCT 30.7 % 09/22/2015 Cbc With Differential Ord2 MCV 83.2 fl 09/22/2015 Cbc With Differential Ord2 Lymph% 16.8 % 09/22/2015 Cbc With Differential Ord2 [facility]% 15.4 % 09/22/2015 Cbc With Differential Ord2 [...] 1.81 K/ul 09/22/2015 Cbc With Differential Ord2 [facility] ABS# 1.7 K/ul 09/22/2015 Cbc With Differential Ord2 Eos ABS# 0.1 K/ul 09/22/2015 Cbc With Differential Ord2 Baso ABS# 0.1 K/ul 09/22/2015 Comp Metabolic Ofu597 NA 134 mEq/L 09/22/2015 Comp Metabolic Ocv895 K 4.7 mEq/L 09/22/2015 Comp Metabolic Lrv195 CL 98 mEq/L 09/22/2015 Comp Metabolic Xhx844 CO2 26.0 mEq/L 09/22/2015 Comp Metabolic Qzf206 ANION GAP 15 09/22/2015 Comp Metabolic Pgi237 GLUCOSE 83 mg/dL 09/22/2015 Comp Metabolic Tdq907 Creat 1.1 mg/dL 09/22/2015 Comp Metabolic Ygr471 eGFR 52 ml/min/1.73m2 09/22/2015 Comp Metabolic Lwb729 BUN 19 mg/dL 09/22/2015 Comp Metabolic Dvj188 B/C Ratio 17.8 Ratio 09/22/2015 Comp Metabolic Iiq600 CALCIUM 9.4 mg/dL 09/22/2015 Comp Metabolic Tut584 ALK PHOS 182 U/L 09/22/2015 Comp Metabolic Bbn843 AST(SGOT) 30 U/L 09/22/2015 Comp Metabolic Mwe891 ALT(SGPT) 16 U/L 09/22/2015 Comp Metabolic Ers936 BILI T 0.8 mg/dL 09/22/2015 Comp Metabolic Ojl799 ALBUMIN 3.9 g/dL 09/22/2015 Comp Metabolic Htk384 TPRO 6.8 g/dL 09/22/2015 Comp Metabolic Vph148 GLOB 2.9 g/dL 09/22/2015 Comp Metabolic Ifn010 A/G Ratio 1.3 Ratio 09/22/2015 Comp Metabolic Uwx146 Osmo 270 mOsmo 09/22/2015 Cbc With Differential Ord2 WBC 10.52 K/ul 06/02/2015 Cbc With Differential Ord2 RBC 3.16 M/ul 06/02/2015 Cbc With Differential Ord2 HGB 8.8 g/dl 06/02/2015 Cbc With Differential Ord2 HCT 27.8 % 06/02/2015 Cbc With Differential Ord2 Neut% 66.1 % 06/02/2015 Cbc With Differential Ord2 MCV 88.0 fl 06/02/2015 Cbc With Differential Ord2 Lymph% 16.5 % 06/02/2015 Cbc With Differential Ord2 [facility]% 16.6 % 06/02/2015 Cbc With Differential Ord2 [...] 1.74 K/ul 06/02/2015 Cbc With Differential Ord2 [facility] ABS# 1.8 K/ul 06/02/2015 Cbc With Differential Ord2 Eos ABS# 0.1 K/ul 06/02/2015 Cbc With Differential Ord2 Baso ABS# 0.0 K/ul 06/02/2015 Cbc With Differential Ord2 New Analyzer Notice Please note new ref ranges starting 03-11-2015 due to implemntation of new five part differential hematolgy analyzer. 06/02/2015 Comp Metabolic Xxj437 NA 132 mEq/L 06/02/2015 Comp Metabolic Zga538 K 4.4 mEq/L 06/02/2015 Comp Metabolic Riq647 CL 94 mEq/L 06/02/2015 Comp Metabolic Wyi844 CO2 26.0 mEq/L 06/02/2015 Comp Metabolic Hjy482 ANION GAP 16 06/02/2015 Comp Metabolic Uii310 GLUCOSE 97 mg/dL 06/02/2015 Comp Metabolic Uhn292 Creat 1.2 mg/dL 06/02/2015 Comp Metabolic Cyg219 eGFR 46 ml/min/1.73m2 06/02/2015 Comp Metabolic Iec052 BUN 19 mg/dL 06/02/2015 Comp Metabolic Vaf535 B/C Ratio 15.8 Ratio 06/02/2015 Comp Metabolic Ujy879 CALCIUM 9.4 mg/dL 06/02/2015 Comp Metabolic Jns211 ALK PHOS 178 U/L 06/02/2015 Comp Metabolic Qoz691 AST(SGOT) 32 U/L 06/02/2015 Comp Metabolic Iyc168 ALT(SGPT) 31 U/L 06/02/2015 Comp Metabolic Cmr462 BILI T 0.6 mg/dL 06/02/2015 Comp Metabolic Ruj991 ALBUMIN 4.0 g/dL 06/02/2015 Comp Metabolic Amj448 TPRO 6.5 g/dL 06/02/2015 Comp Metabolic Qwd957 GLOB 2.5 g/dL 06/02/2015 Comp Metabolic Pdq684 A/G Ratio 1.6 Ratio 06/02/2015 Comp Metabolic Glr449 Osmo 267 mOsmo 06/02/2015 Pt Xio8447 PT 21.8 seconds 06/02/2015 Pt Wzl1690 INR 2.0 06/02/2015 Pt Blx8020 Low Intensity - 1.5-2.0 06/02/2015 Pt Kjb0487 Mod intensity - 2.0-3.0 06/02/2015 Pt Wvj6119 Hi intensity - 3.0-4.0 06/02/2015 B12 Hyh922 B12 160.00 pg/ml 04/01/2015 Iron Ord72 Iron 39 ug/dl 04/01/2015 Vitamin D 25 Oh Ixy0664 VITAMIN D, 25 HYDROXY 61.20 ng/mL Cbc With Differential Ord2 WBC 11.58 K/ul 03/31/2015 Cbc With Differential Ord2 RBC 3.71 M/ul 03/31/2015 Cbc With Differential Ord2 HGB 10.5 g/dl 03/31/2015 Cbc With Differential Ord2 Neut% 71.2 % 03/31/2015 Cbc With Differential Ord2 HCT 33.0 % 03/31/2015 Cbc With Differential Ord2 Lymph% 14.0 % 03/31/2015 Cbc With Differential Ord2 MCV 88.9 fl 03/31/2015 Cbc With Differential Ord2 [facility]% 14.0 % 03/31/2015 Cbc With Differential Ord2 [...] 1.62 K/ul 03/31/2015 Cbc With Differential Ord2 [facility] ABS# 1.6 K/ul 03/31/2015 Cbc With Differential Ord2 Eos ABS# 0.1 K/ul 03/31/2015 Cbc With Differential Ord2 Baso ABS# 0.0 K/ul 03/31/2015 Cbc With Differential Ord2 New Analyzer Notice Please note new ref ranges starting 03-11-2015 due to implemntation of new five part differential hematolgy analyzer. 03/31/2015 Comp Metabolic Jak010 NA 131 mEq/L 03/31/2015 Comp Metabolic Hod937 K 5.3 mEq/L 03/31/2015 Comp Metabolic Ylb871 CL 97 mEq/L 03/31/2015 Comp Metabolic Wtu472 CO2 24.0 mEq/L 03/31/2015 Comp Metabolic Bwb238 ANION GAP 15 03/31/2015 Comp Metabolic Zpv516 GLUCOSE 84 mg/dL 03/31/2015 Comp Metabolic Fhi479 Creat 1.3 mg/dL 03/31/2015 Comp Metabolic Xam540 eGFR 42 ml/min/1.73m2 03/31/2015 Comp Metabolic Bkn898 BUN 26 mg/dL 03/31/2015 Comp Metabolic Lni749 B/C Ratio 20.2 Ratio 03/31/2015 Comp Metabolic Gos111 CALCIUM 9.4 mg/dL 03/31/2015 Comp Metabolic Fdu042 ALK PHOS 172 U/L 03/31/2015 Comp Metabolic Gem818 AST(SGOT) 21 U/L 03/31/2015 Comp Metabolic Nhb289 ALT(SGPT) 27 U/L 03/31/2015 Comp Metabolic Lrm111 BILI T 0.5 mg/dL 03/31/2015 Comp Metabolic Eef367 ALBUMIN 4.0 g/dL 03/31/2015 Comp Metabolic Xvt939 TPRO 6.8 g/dL 03/31/2015 Comp Metabolic Hbb300 GLOB 2.8 g/dL 03/31/2015 Comp Metabolic Pxa298 A/G Ratio 1.4 Ratio 03/31/2015 Comp Metabolic Pnf450 Osmo 267 mOsmo 03/31/2015 Pt Okh8991 PT 36.9 seconds 03/31/2015 Pt Mdz8211 INR 3.9 03/31/2015 Pt Ste2784 Low Intensity - 1.5-2.0 03/31/2015 Pt Mfq5751 Mod intensity - 2.0-3.0 03/31/2015 Pt Diz1148 Hi intensity - 3.0-4.0 03/31/2015 Tsh Ord6 hTSH II 1.87 uIU/mL [...] Ord30 C/HDL 2.8 Ratio 09/19/2014 Comp Metabolic Ien633 NA 134 mEq/L 09/19/2014 Comp Metabolic Scy412 K 4.7 mEq/L 09/19/2014 Comp Metabolic Nli680 CL 98 mEq/L 09/19/2014 Comp Metabolic Frv884 CO2 27.0 mEq/L 09/19/2014 Comp Metabolic Hyk235 ANION GAP 14 09/19/2014 Comp Metabolic Wph844 GLUCOSE 94 mg/dL 09/19/2014 Comp Metabolic Ubx088 Creat 1.1 mg/dL 09/19/2014 Comp Metabolic Oew733 eGFR 49 ml/min/1.73m2 09/19/2014 Comp Metabolic Ptb081 BUN 14 mg/dL 09/19/2014 Comp Metabolic Ecx090 B/C Ratio 12.3 Ratio 09/19/2014 Comp Metabolic Bvf062 CALCIUM 9.7 mg/dL 09/19/2014 Comp Metabolic Xpc121 ALK PHOS 150 U/L 09/19/2014 Comp Metabolic Dun006 AST(SGOT) 16 U/L 09/19/2014 Comp Metabolic Jvg988 ALT(SGPT) 9 U/L 09/19/2014 Comp Metabolic Ovf721 BILI T 0.8 mg/dL 09/19/2014 Comp Metabolic Mbt404 ALBUMIN 3.9 g/dL 09/19/2014 Comp Metabolic Zqx446 TPRO 6.8 g/dL 09/19/2014 Comp Metabolic Buh981 GLOB 2.9 g/dL 09/19/2014 Comp Metabolic Xvt843 A/G Ratio 1.3 Ratio 09/19/2014 Comp Metabolic Nnc020 Osmo 268 mOsmo 09/19/2014 Cbc With Differential [...] 17.6 % 09/19/2014 Vitamin D 25 Oh Lnc4202 VITAMIN D, 25 HYDROXY 14.13 ng/mL Pt Tit3331 PT 29.1 seconds 09/19/2014 Pt Pmh7075 INR 2.9 09/19/2014 Pt Lxa9341 Low Intensity - 1.5-2.0 09/19/2014 Pt Tof3979 Mod intensity - 2.0-3.0 09/19/2014 Pt Gvs1490 Hi intensity - 3.0-4.0 09/19/2014 Tsh Ord6 [...] dentition 03/15/2018 None Full Exam - General 1994 Ears/Nose/Throat lips/teeth/gingiva Overall: benign gingiva 03/15/2018 None Full Exam - General 1994 Ears/Nose/Throat lips/teeth/gingiva Overall: no masses 03/15/2018 None Full Exam - General 1994 Ears/Nose/Throat oral cavity/pharynx/larynx Overall: oral mucosa clear 03/15/2018 None Full Exam - General 1994 Ears/Nose/Throat oral cavity/pharynx/larynx Overall: oropharyngeal mucosa clear 03/15/2018 None Full Exam - General 1994 Ears/Nose/Throat oral cavity/pharynx/larynx Overall: no masses 03/15/2018 [...] clear 05/09/2017 None Full Exam - General 1995 Ears/Nose/Throat lips/teeth/gingiva Overall: benign lips 05/09/2017 None [...] mucosa 07/24/2014 None Full Exam - General [facility] Constitutional general appearance Development: appears stated age [...] Model/CDA Sections, Assigned to/Indira Ibanez SNOMED CT: [id number] CPT-4: 01013Basrlei 12/10/2015 TRIAMCINOLONE ACET INJ NOS CPT-4: J3301 01/30/2015 URINALYSIS NONAUTO W/O SCOPE CPT-4: 50004 11/07/2014 ROCEPHIN, PER 250 MG CPT-4: J0696 10/14/2014 TRIAMCINOLONE ACET INJ NOS CPT-4: J3301 10/14/2014 Vital Signs Date Vital 03/15/2018 Blood Pressure 1: 146/60 Code : 8480-6 BMI: 25.2 Code : 85962-6 Heart Rate 1 : 79 bpm Height: 5'2" SpO2: 98% Weight: 138 lbs 12/12/2017 Blood Pressure 1: 130/60 Code : 8480-6 BMI: 25.2 Code : 92795-6 Heart Rate 1 : 60 bpm Height: 5'2" SpO2: 98% Weight: 138 lbs 09/05/2017 Blood Pressure 1: 108/46 Code : 8480-6 BMI: 24.0 Code : 29163-3 Heart Rate 1 : 70 bpm Height: 5'2" SpO2: 96% Weight: 131 lbs 05/09/2017 Blood Pressure 1: 122/82 Code : 8480-6 BMI: 25.2 Code : 71858-5 Heart Rate 1 : 72 bpm Height: 5'2" SpO2: 95% Weight: 138 lbs 03/07/2017 Blood Pressure 1: 108/52 Code : 8480-6 BMI: 27.6 Code : 86806-0 Heart Rate 1 : 72 bpm Height: 5'2" SpO2: 96% Weight: 151 lbs 01/24/2017 Blood Pressure 1: 126/60 Code : 8480-6 BMI: 27.1 Code : 46826-2 Heart Rate 1 : 60 bpm Height: [...] Code : 8480-6 BMI: 26.8 Code : 48754-7 Heart Rate 1 : 59 bpm Height: 5'2" SpO2: 97% Weight: 146 lbs 8 oz 05/10/2016 Blood Pressure 1: 120/56 Code : 8480-6 BMI: 27.1 Code : 63165-7 Heart Rate 1 : 63 bpm Height: 5'2" SpO2: 97% Weight: 148 lbs 04/25/2016 Blood Pressure 1: 134/66 Code : 8480-6 BMI: 24.9 Code : 36543-8 Heart Rate 1 : 118 bpm Height: 5'2" SpO2: 93% Temperature: 36.8 (C) / 98.3 (F) Weight: 136 lbs 01/14/2016 Blood Pressure 1: 132/78 Code : 8480-6 BMI: 25.6 Code : 84541-7 Heart Rate 1 : 97 bpm Height: 5'2" SpO2: 95% Weight: 140 lbs 12/10/2015 Blood Pressure 1: 118/72 Code : 8480-6 BMI: 26.2 Code : 89156-0 Heart Rate 1 : 68 bpm Height: 5'2" SpO2: 95% Weight: 143 lbs 11/12/2015 Blood Pressure 1: 140/80 Code : 8480-6 BMI: 25.6 Code : 04287-1 Heart Rate 1 : 77 bpm Height: 5'2" SpO2: 93% Weight: 140 lbs 10/08/2015 Blood Pressure 1: 132/60 Code : 8480-6 BMI: 26.2 Code : 29616-6 Heart Rate 1 : 77 bpm Height: 5'2" SpO2: 96% Weight: 143 lbs 09/29/2015 Blood Pressure 1: 130/62 Code : 8480-6 BMI: 27.1 Code : 64329-3 Heart Rate 1 : 86 bpm Height: 5'2" SpO2: 93% Weight: 148 lbs 09/22/2015 Blood Pressure 1: 164/72 Code : 8480-6 BMI: 28.2 Code : 89253-2 Heart Rate 1 : 79 bpm Height: 5'2" SpO2: 92% Weight: 154 lbs 07/21/2015 Blood Pressure 1: 124/70 Code : 8480-6 BMI: 24.5 Code : 98451-6 Heart Rate 1 : 71 bpm Height: 5'2" SpO2: 98% Weight: 134 lbs 06/23/2015 Blood Pressure 1: 122/68 Code : 8480-6 BMI: 25.4 Code : 11655-0 Heart Rate 1 : 78 bpm Height: 5'2" SpO2: 92% Weight: 139 lbs 06/12/2015 Blood Pressure 1: 154/62 Code : 8480-6 BMI: 27.4 Code : 73201-0 Heart Rate 1 : 87 bpm Height: 5'2" SpO2: 94% Weight: 150 lbs 06/02/2015 Blood Pressure 1: 140/68 Code : 8480-6 Heart Rate 1: 90 bpm SpO2: 91% Weight: 142 lbs 03/31/2015 Blood Pressure 1: 120/56 Code : 8480-6 BMI: 23.6 Code : 01479-5 Heart Rate 1 : 82 bpm Height: 5'2" SpO2: 98% Weight: 129 lbs 01/30/2015 Blood Pressure 1: 108/62 Code : 8480-6 BMI: 22.1 Code : 14730-9 Heart Rate 1 : 8299 bpm Height: 5'2 " SpO2: 99% Weight: 121 lbs 12/22/2014 Blood Pressure 1: 130/70 Code : 8480-6 BMI: 21.8 Code : 09360-7 Heart Rate 1 : 106 bpm Height: 5'2" SpO2: 98% Weight: 119 lbs 10/29/2014 Blood Pressure 1: 118/58 Code : 8480-6 BMI: 23.2 Code : 41921-6 Heart Rate 1 : 74 bpm Height: 5'2" SpO2: 93% Weight: 127 lbs 10/14/2014 Blood Pressure 1: 128/64 Code : 8480-6 BMI: 22.9 Code : 80845-0 Heart Rate 1 : 79 bpm Height: 5'2" SpO2: 93% Temperature: 35.9 (C) / 96.6 (F) Weight: 125 lbs 09/19/2014 Blood Pressure 1: 132/72 Code : 8480-6 BMI: 22.9 Code : 03970-9 Heart Rate 1 : 84 bpm Height: 5'2" SpO2: 96% Weight: 125 lbs 08/22/2014 Blood Pressure 1: 124/72 Code : 8480-6 BMI: 23.0 Code : 77684-3 Heart Rate 1 : 64 bpm Height: 5'2" Weight: 126 lbs 08/04/2014 Blood Pressure 1: 126/86 Code : 8480-6 BMI: 23.6 Code : 73488-1 Height: 5'2" Respiratory Rate: 20 bpm Weight: 129 lbs 07/24/2014 Blood Pressure 1: 116/72 Code : 8480-6 BMI: 23.6 Code : 07312-4 Heart Rate 1 : 74 bpm Height: 5'2" Weight: 129 lbs 07/15/2014 Blood Pressure 1: 132/78 Code : 8480-6 BMI: 24.1 Code : 66012-3 Heart Rate 1 : 74 bpm Height: [...] data Encounters Encounter Performer Location Codes Date ([id number]) [id number] EST. PATIENT, LEVEL IV Diagnosis: Right lower quadrant pain[ICD10: R10.31] Diagnosis: Diarrhea, unspecified[ICD10: R19.7] Diagnosis: Essential (primary) hypertension[ICD10: I10] Diagnosis: Low back pain[ICD10: M54.5] Diagnosis: Gastro-esophageal reflux disease without esophagitis[ICD10: K21.9] Merle Daigle MD, [facility] CPT-4: 95343 03/15/2018 [id number] EST. 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 PATIENT, LEVEL IV Diagnosis: Essential (primary) hypertension[ICD10: I10] Diagnosis: Generalized anxiety disorder[ICD10: F41.1] Diagnosis: Major depressive disorder, single episode, unspecified[ICD10: F32.9] Diagnosis: Localized edema[ICD10: R60.0] Veronica Daigle MD, [facility] CPT- 4: 89052 05/09/2017 ([id number]) 74516 EST. PATIENT, LEVEL IV Diagnosis: Essential (primary) hypertension[ICD10: I10] Diagnosis: Paroxysmal atrial fibrillation[ICD10: I48.0] Diagnosis: Generalized anxiety disorder[ICD10: F41.1] Diagnosis: Localized edema[ICD10: R60.0] Veronica Daigle MD, [facility] CPT- 4: 98226 03/07/2017 [id number]) [id number] EST. PATIENT, LEVEL IV Diagnosis: Generalized anxiety disorder[ICD10: F41.1] Diagnosis: Major depressive disorder, single episode, unspecified[ICD10: F32.9] Diagnosis: Essential (primary) hypertension[ICD10: I10] Diagnosis: Paroxysmal atrial fibrillation[ICD10: I48.0] Merle Daigle MD, [facility] CPT-4: 64144 01/24/2017 [id number] EST. PATIENT, LEVEL IV Diagnosis: Other chest pain[ICD10: R07.89] Diagnosis: Other malaise[ICD10: R53.81] Opal Daigle MD, [facility] CPT-4 : 68750 09/29/2016 ([id number]) 86887 EST. PATIENT, LEVEL IV Diagnosis: Essential (primary) hypertension[ICD10: I10] Diagnosis: Paroxysmal atrial fibrillation[ICD10: I48.0] Diagnosis: Localized edema[ICD10: R60.0] Diagnosis: Generalized anxiety disorder[ICD10: F41.1] Diagnosis: Low back pain[ICD10: M54.5] Merle Daigle MD, [facility] CPT-4: 13359 09/13/2016 ([id number]) 07727 EST. PATIENT, LEVEL III Diagnosis: Essential (primary) hypertension[ICD10: I10] Diagnosis: Paroxysmal atrial fibrillation[ICD10: I48.0] Merle Daigle MD, [facility] CPT-4: 19421 05/31/2016 ([id number]) 86152 EST. PATIENT, LEVEL III Diagnosis: Essential (primary) hypertension[ICD10: I10] Diagnosis: Localized edema[ICD10: R60.0] Merle Daigle MD, [facility] CPT-4: 80983 05/10/2016 ([id number]) 84653 EST. PATIENT, LEVEL IV Diagnosis: Paroxysmal atrial fibrillation[ICD10: I48.0] Diagnosis: Essential (primary) hypertension[ICD10: I10] Diagnosis: Generalized anxiety disorder[ICD10: F41.1] Merle Daigle MD, [facility] CPT-4: 98966 04/25/2016 ([id number]) 35594 EST. PATIENT, LEVEL IV Diagnosis: Generalized anxiety disorder[ICD10: F41.1] Diagnosis: Essential (primary) hypertension[ICD10: I10] Diagnosis: Paroxysmal atrial fibrillation[ICD10: I48.0] Diagnosis: Localized edema[ICD10: R60.0] Diagnosis: Acute recurrent maxillary sinusitis[ICD10: J01.01] Merle Daigle MD, [facility] CPT-4: 65593 01/14/2016 ([id number]) 23672 EST. PATIENT, LEVEL IV Diagnosis: Essential (primary) hypertension[ICD10: I10] Diagnosis: Generalized anxiety disorder[ICD10: F41.1] Diagnosis: Localized edema[ICD10: R60.0] Diagnosis: Encounter for immunization[ICD10: Z23] Merle Daigle MD, [facility] CPT-4: 08302 12/10/2015 ([id number]) 59472 EST. PATIENT, LEVEL III Diagnosis: Essential (primary) hypertension[ICD10: I10] Diagnosis: Localized edema[ICD10: R60.0] Merle Daigle MD, [facility] CPT-4: 71642 11/12/2015 ([id number]) 20365 EST. PATIENT, LEVEL III Diagnosis: Essential (primary) hypertension[ICD10: I10] Diagnosis: Localized edema[ICD10: R60.0] Merle Daigle MD, [facility] CPT-4: 06261 10/08/2015 ([id number]) 07030 EST. PATIENT, LEVEL III Diagnosis: Localized edema[ICD10: R60.0] Diagnosis: Essential (primary) hypertension[ICD10: I10] Merle Daigle MD, [facility] CPT-4: 92008 09/29/2015 ([id number]) 61427 EST. PATIENT, LEVEL IV Diagnosis: Localized edema[ICD10: R60.0] Diagnosis: Essential (primary) hypertension[ICD10: I10] Diagnosis: Paroxysmal atrial fibrillation[ICD10: I48.0] Merle Daigle MD, [facility] CPT-4: 16133 09/22/2015 ([id number]) 44007 EST. PATIENT, LEVEL III Diagnosis: Essential (primary) hypertension[ICD10: I10] Diagnosis: Paroxysmal atrial fibrillation[ICD10: I48.0] Merle Daigle MD, [facility] CPT-4: 46239 07/21/2015 ([id number]) 28992 EST. 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 PATIENT, LEVEL IV Diagnosis: Essential (primary) hypertension[ICD10: I10] Diagnosis: Paroxysmal atrial fibrillation[ICD10: I48.0] Diagnosis: Localized edema[ICD10: R60.0] Diagnosis: Encounter for therapeutic drug level monitoring[ICD10: Z51.81] Merle Daigle MD, [facility] CPT-4: 17916 06/02/2015 ([id number]) 26929 EST. 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 PATIENT, LEVEL III Diagnosis: Essential (primary) hypertension[ICD10: I10] Diagnosis: Allergic rhinitis due to pollen[ICD10: J30.1] Merle Daigle MD, [facility] CPT-4: 91694 01/30/2015 [id number] EST. PATIENT, LEVEL III Diagnosis: Localized edema[ICD10: R60.0] Diagnosis: Diarrhea, unspecified[ICD10: R19.7] Veronica Daigle MD, [facility] CPT-4: 09475 12/22/2014 ([id number]) 40716 EST. PATIENT, LEVEL IV Diagnosis: DYSPHAGIA, PHARYNGEAL[ICD9: 787.23] Diagnosis: Low back pain[ICD9: 724.2] Diagnosis: Cough[ICD9: 786.2] Diagnosis: Anticoagulated on Coumadin[ICD9: V58.83] Diagnosis: MUSCLE WEAKNESS-GENERAL[ICD9: 728.87] Diagnosis: EDEMA[ICD9: 782.3] Veronica Daigle MD, [facility] CPT-4: 69704 10/29/2014 ([id number]) 92428 EST. PATIENT, LEVEL IV Diagnosis: Low back pain[ICD9: 724.2] Diagnosis: Pneumonia[ICD9: 486] Diagnosis: Cough[ICD9: 786.2] Diagnosis: Anticoagulated on Coumadin[ICD9: V58.83] Diagnosis: DYSPHAGIA, NOS[ICD9: 787.20] Diagnosis: MUSCLE WEAKNESS-GENERAL[ICD9: 728.87] Merle Daigle MD, [facility] CPT-4: 31265 10/14/2014 ([id number]) 54678 EST. PATIENT, LEVEL IV Diagnosis: ESSENTIAL HYPERTENSION[ICD9: 401.9] Diagnosis: ESOPHAGEAL REFLUX[ICD9: 530.81] Diagnosis: SLEEP RELATED LEG CRAMPS[ICD9: 327.52] Diagnosis: Atrial fibrillation[ICD9: 427.31] Diagnosis: Anticoagulated on Coumadin[ICD9: V58.83] Diagnosis: VITAMIN D DEFICIENCY[ICD9: 268.9] Merle Daigle MD, [facility] CPT-4: 16260 09/19/2014 ([id number]) 40757 EST. PATIENT, LEVEL III Diagnosis: EDEMA[ICD9: 782.3] Diagnosis: LONG-TERM USE ANTICOAGUL[ICD9: V58.61] Merle Daigle MD, [facility] CPT-4: 28172 08/22/2014 ([id number]) 17997 EST. PATIENT, LEVEL IV Diagnosis: Skin irritation[ICD9: 709.9] Diagnosis: ESSENTIAL HYPERTENSION[ICD9: 401.9] Diagnosis: Anticoagulated on Coumadin[ICD9: V58.83] Diagnosis: DEPRESSIVE DISORDER NEC[ICD9: 311] [facility] CPT-4: 66032 08/04/2014 ([id number]) [id number] EST. PATIENT, LEVEL III Diagnosis: Skin irritation[ICD9: 709.9] Veronica Daigle MD, [facility] CPT- 4: 04975 07/24/2014 ([id number]) OFFICE/OUTPATIENT VISIT NEW Diagnosis: ESSENTIAL HYPERTENSION[ICD9: 401.9] Diagnosis: COUGH[ICD9: 786.2] Diagnosis: Atrial fibrillation[ICD9: 427.31] Diagnosis: LONG-TERM USE ANTICOAGUL[ICD9: V58.61] Diagnosis: DEPRESSIVE DISORDER NEC[ICD9: 311] Veronica Daigle MD, [facility] CPT-4: 73497 07/15/2014 Plan of Care Planned Activity Notes Codes Status Date Visit Plan: Abdominal pain -diarrhea - rx [...] over-medication. 03/15/2018 Appointment: Merle Esparza WPtel: [facility]5 [id number] [place] [address] (30 min) Complex 03/15/2018 Patient Education: Patient Medication Summary Completed 03/15/2018 Patient Education: Hypertension Completed 03/15/2018 Patient Education: Back Pain Completed 03/15/2018 Appointment: Veronica Daigle WPtel: [facility]5 [facility] (15 min) Moderate 02/01/2018 Appointment: Veronica Daigle WPtel: [facility]5 [facility] (15 min) Moderate 01/16/2018 Visit [...] this time. 12/12/2017 Appointment: Veronica Daigle WPtel: [phone] [phone] (15 min) Moderate 12/12/2017 Patient Education: Patient [...] had her pain medication stolen by a transitional care liaison through home health - i have given pt a script for 50 pills to get her through for when she can get her next RX for her pain medication. 09/05/2017 Appointment: Veronica Daigle WPtel: [phone] [phone] (15 min) Moderate 09/05/2017 Patient Education: Patient [...] medications. 05/09/2017 Appointment: Veronica Daigle WPtel: [phone] [phone] (15 min) Moderate 05/09/2017 Patient Education: Patient [...] medications. 03/07/2017 App[facility]ment[phone] ([facility] min) Moderate 03/07/2017 Patient Education: [...] becoming uncontrolled. 01/24/2017 Appointment: Merle Esparza WPtel: [phone] [phone] [place] (30 min) Complex 01/24/2017 Patient Education: [...] or concerns. 09/29/2016 Appointment: Opal Boyle WPtel: [phone] [phone] [place] (15 min) Moderate 09/29/2016 Appointment: Opal Boyle WPtel: [phone] [phone] [place] (15 min) Moderate 09/29/2016 Patient Education: [...] current medications. 09/13/2016 Appointment: Merle Esparza WPtel: [address] [place], [place] [id number] [place] [address] (30 min) Complex 09/13/2016 Patient Education: Patient [...] becoming uncontrolled. 05/31/2016 Appointment: Merle Esparza WPtel: [address] [place], [place] [phone] [place] [address] (30 min) Complex 05/31/2016 Patient Education: Patient [...] LABS TODAY 05/10/2016 Appointment: Merle Esparza WPtel: [address] [place], [place] [phone] (30 min) Complex 05/10/2016 Patient Education: Patient Medication Summary Completed 05/10/2016 Patient Education: Hypertension Completed 05/10/2016 Appointment: Merle Esparza WPtel: [address] [place] [address] (15 min) Moderate 05/09/2016 Visit Plan: Afib-not [...] current medications. 04/25/2016 Appointment: Merle Esparza WPtel: [phone] [facility] [place] [address] (30 min) Complex 04/25/2016 Patient Education: Patient Medication Summary Completed 04/25/2016 Patient Education: Hypertension Completed 04/25/2016 Appointment: Merle Esparza WPtel: [facility]1 [phone] [place] [address] (15 min) Moderate 02/12/2016 Visit Plan: Hypertension [...] becoming uncontrolled. 01/14/2016 Appointment: Merle Esparza WPtel: [facility]8 [phone] (30 min) Complex 01/14/2016 Patient Education: [...] to reduce peripheral edema. 12/10/2015 Appointment: Merle sEparza WPtel: [phone] [facility] [place] [address] (30 min) Complex 12/10/2015 Patient Education: Patient [...] edema. 11/12/2015 Appointment: Merle Esparza WPtel: [facility]8 [phone] [place] [address] (15 min) Moderate 11/12/2015 Patient Education: Patient Medication Summary Completed 11/12/2015 Appointment: Merle Esparza WPtel: [phone] (15 min) Moderate 10/22/2015 Visit Plan: Hypertension [...] edema. 10/08/2015 Appointment: Merle Esparza WPtel: [phone] [id number] [place] [address] (15 min) Moderate 10/08/2015 Patient Education: Patient [...] home. 09/29/2015 Appointment: Merle Esparza WPtel: [facility]5 [facility] [place] [address] (15 min) Moderate 09/29/2015 Patient Education: Patient [...] edema. 09/22/2015 Appointment: Merle Esparza WPtel: [facility]5 [phone] (30 min) Complex 09/22/2015 Patient Education: Patient [...] week- will restart anti coagulant if able Vxjft-umzqktkz-lb change in medications Anemia-received 1 unit blood last week-hgb repeated yesterday and has increased from 9.5 to 9.8-continue to monitor 06/23/2015 Appointment: Merle Esparza WPtel: [phone] (30 min) Complex 06/23/2015 Patient Education: Patient [...] Hypertension Completed 01/30/2015 Appointment: Veronica Daigle WPtel: [address] [place], [place] [address] (30 min) Complex 01/28/2015 Appointment: (30 min) [...] home. 12/22/2014 Appointment: [facility]el[phone] (30 min) Complex 12/22/2014 Patient Education: Patient [...] Care Plan: COMPLETE CBC AUTOMATED LOINC : 30113-5 Ordered 08/22/2014 Visit Plan: Itching/Skin irritation- Resolved. [...] if needed. 07/24/2014 Appointment: Yumiko Dickinson WPtel: [address] [place] [address] (10 min) Simple 07/24/2014 Patient Education: Patient [...] - she has refused to see a guest services agent and reports to me that she will not go to the hospital and will not have the recommended testing. She states that she does not have any family left, and is not willing to have any further testing/treatment. Labs to be checked today for coumadin levels to be further adjusted. 07/15/2014 Appointment: Veronica Daigle WPtel: [facility] [place] ([place] New Patient 07/15/2014 Patient [...] next week-will restart anti coagulant if able Donwz-vmvltmxc-nz change in medications Anemia-received 1 unit blood [...] exposure. No change in current medications. . Chest pain, malaise - recent illness [...] if their heart rate is becoming uncontrolled. Refill prescription of Lasix 40 mg daily. [...] to further attempt to reduce peripheral edema. Mfvaqdupx-ppsktojrx-khafcb all of abx Atrial Fibrillation - pt on chronic anticoagulation and is currently rate controlled. The pt is to have labs done as appropriate to monitor medication levels and is to report if they start to feel as if their heart rate is becoming uncontrolled. TAKE AN EXTRA LASIX AND POASSIUM PILL [...] while on the antibiotics REFER TO HOME GPUCLL-Wowpjdq-qjcpe PT/INR on , PT SWALLOW STUDY DX dysphagia Shun (neighbor) [phone] . Pneumonia - Pt has been diagnosed [...] while on the antibiotics REFER TO HOME YXVFWF-Qnjqitb-aohdr PT/INR on , PT SWALLOW STUDY DX dysphagia Shun (neighbor) [phone] . Pneumonia - Pt has been diagnosed [...] change in blood pressure readings at home. INCREASE YOUR OMEPRAZOLE TO TWICE DAILY . [...] a study on a Monday if possible. DECREASE METOPROLOL TO 25MG 1/2 TAB DAILY [...] - she has refused to see a guest services agent and reports to me that she will [...] afford to pay for at this time. . Chronic Depression and anxiety - the [...] further attempt to reduce peripheral edema. INCREASE PROTEIN INTAKE . Hypertension - well [...] had her pain medication stolen by a transitional care liaison through home health - i have given [...] further attempt to reduce peripheral edema. START METOLAZONE 5MG TWICE PER WEEK-TUESDAYS AND [...]
--- OUTSIDE RECORDS SUMMARY | 2018-04-18 23:55 | XMS REPORT | CCD ---
Author Author [facility] Organization [facility] Address [address] [place] [address] Phone Care Team Providers Care Key Carrier Name Role Phone PP Unavailable CCM Unavailable Summary Purpose Interface Exchange Insurance Providers Payer name Policy type / Coverage type Covered republican ID Effective Begin Date Effective End Date WPS Medicare Part B Medicare Part B [id number] Unknown Family history Mother Diagnosis Age At Onset Hypertension Unknown Heart Attack Unknown Social History Social History Element Codes Description Effective Dates Marital status Unknown 07/15/2014 Marital status Unknown 07/15/2014 Number of children Unknown 0 07/15/2014 Number of children Unknown 0 07/15/2014 Employment Unknown Retired 07/15/2014 Employment Unknown Retired 07/15/[address]: 273810294 Has never smoked or chewed tobacco 07/15/[address]: 439436730 Has never smoked or chewed tobacco 07/15/[address]: 704559580 Never drinks alcohol 07/15/[address]: 633268736 Never drinks alcohol 07/15/2014 Allergies, Adverse Reactions, [...] ICD-9: 789.03 ICD-10: R10.31 Active 03/15/2018 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 ICD-9: V58.61 [...] pain ICD-9: 789.03 ICD-10: R10.31 03/15/2018 Active jail (current) use of anticoagulants ICD-9: V58.61 ICD-10: [...] hydrocodone 7.5 mg-acetaminophen 325 mg tablet RxNorm: 784173 1 Tablet(s) PO daily as needed pain 03/15/20182018 Active Flagyl 500 mg tablet RxNorm: 819669 1 Tablet(s) PO TID 201803/24/2018 Active potassium chloride ER 10 mEq tablet,extended release RxNorm: 989483 TAKE TWO TABLETS BY MOUTH THREE TIMES A DAY 02/28/2018 07/27/2018 Active hydrocodone 7.5 mg-acetaminophen 325 mg tablet RxNorm: 127715 1 Tablet(s) PO daily as needed pain 02/01/20182018 Inactive Xanax 0.25 mg tablet RxNorm: 908264 1 Tablet(s) PO TID as needed anxiety 01/01/2018 01/20/2018 Inactive hydrocodone 7.5 mg-acetaminophen 325 mg tablet RxNorm: 061693 1 Tablet(s) PO daily as needed pain 12/12/20172017 Inactive cyanocobalamin (vit B-12) 1,000 mcg/mL injection solution RxNorm: 480391 INJECT 1 ML INTRAMUSCULARLY 2 TIMES A MONTH FOR 2 MONTHS, THEN ONCE A MONTH THEREAFTER 11/28/2017 01/22/2018 Inactive hydrocodone 7.5 mg-acetaminophen 325 mg tablet RxNorm: 169302 1-2 Tablet(s) PO Q4- 6H as needed pain 11/21/2017 12/11/2017 Inactive Lasix 40 mg tablet RxNorm: 001995 TAKE ONE TABLET BY MOUTH DAILY 10/23/2017 04/20/2018 Active Lexapro 5 mg tablet RxNorm: 990760 TAKE ONE TABLET BY MOUTH EVERY EVENING 10/23/2017 12/21/2017 Inactive buspirone 10 mg tablet RxNorm: 382640 TAKE ONE TABLET BY MOUTH THREE TIMES A DAY 10/02/2017 02/28/2018 Inactive omeprazole 20 mg capsule,delayed release RxNorm: 584379 TAKE ONE CAPSULE BY MOUTH TWICE A DAY 09/13/2017 03/11/2018 Inactive Levaquin 750 mg tablet RxNorm: 349589 1 tab every other day for 5 doses 1 Tablet(s ) PO 08/29/2017 08/28/2017 Inactive Levaquin 750 mg tablet RxNorm: 578446 1 tab every other day for 5 doses 1 Tablet(s ) PO 08/29/2017 09/02/2017 Inactive hydrocodone 7.5 mg-acetaminophen 325 mg tablet RxNorm: 473915 1-2 Tablet(s) PO Q4- 6H as needed pain 08/28/2017 09/26/2017 Inactive potassium chloride ER 10 mEq tablet,extended release RxNorm: 165900 TAKE TWO TABLETS BY MOUTH THREE TIMES A DAY 08/28/2017 12/25/2017 Inactive metoprolol tartrate 25 mg tablet RxNorm: 994974 TAKE 1/2 TABLET BY MOUTH TWO TIMES A DAY 07/25/2017 07/19/2018 Active Lexapro 5 mg tablet RxNorm: 088144 TAKE ONE TABLET BY MOUTH EVERY EVENING 07/21/2017 10/18/2017 Inactive hydrocodone 7.5 mg-acetaminophen 325 mg tablet RxNorm: 251014 1-2 Tablet(s) PO Q4- 6H as needed pain 07/19/2017 08/17/2017 Inactive hydrocodone 7.5 mg-acetaminophen 325 mg tablet RxNorm: 777060 1-2 Tablet(s) PO Q4- 6H as needed pain 07/03/2017 07/18/2017 Inactive hydrocodone 7.5 mg-acetaminophen 325 mg tablet RxNorm: 378483 1-2 Tablet(s) PO Q4- 6H as needed pain 05/25/2017 06/23/2017 Inactive cyanocobalamin (vit B-12) 1,000 mcg/mL injection solution RxNorm: 690092 INJECT 1 ML INTRAMUSCULARLY 2 TIMES A MONTH FOR 2 MONTHS, THEN ONCE A MONTH THEREAFTER 05/19/2017 08/10/2017 Inactive warfarin 5 mg tablet RxNorm: 618647 TAKE ONE TABLET BY MOUTH DAILY 04/26/2017 04/20/2018 Active buspirone 10 mg tablet RxNorm: 249613 TAKE ONE TABLET BY MOUTH THREE TIMES A DAY 04/26/2017 09/22/2017 Inactive Xanax 0.25 mg tablet RxNorm: 402469 1 Tablet(s) PO TID as needed anxiety 04/17/2017 05/14/2017 Inactive Levaquin 500 mg tablet RxNorm: 637680 1 Tablet(s) PO Q72H x3 doses 04/11/2017 04/10/2017 Inactive Levaquin 500 mg tablet RxNorm: 709462 1 Tablet(s) PO Q72H x3 doses 04/11/2017 07/03/2017 Inactive potassium chloride ER 10 mEq tablet,extended release RxNorm: 670974 TAKE TWO TABLETS BY MOUTH THREE TIMES A DAY 03/27/2017 08/23/2017 Inactive Tamiflu 75 mg capsule RxNorm: 100505 1 Capsule(s) PO BID 201707/03/2017 Inactive Zofran 4 mg tablet RxNorm: 011515 1 Tablet(s) PO QID as needed nausea 03/23/2017 06/20/2017 Inactive Zofran 4 mg tablet RxNorm: 765430 1 Tablet(s) PO QID as needed nausea 03/23/2017 03/22/2017 Inactive Tamiflu 75 mg capsule RxNorm: 925677 1 Capsule(s) PO BID 201703/22/2017 Inactive lisinopril 10 mg tablet RxNorm: 167336 TAKE ONE-HALF TABLET BY MOUTH DAILY 03/10/2017 06/02/2018 Active metolazone 5 mg tablet RxNorm: 710242 1 Tablet(s) PO TIW 201703/01/2018 Inactive hydrocodone 7.5 mg-acetaminophen 325 mg tablet RxNorm: 614514 1-2 Tablet(s) PO Q4- 6H as needed pain 02/23/2017 05/24/2017 Inactive omeprazole 20 mg capsule,delayed release RxNorm: 130610 Capsule(s) TAKE ONE CAPSULE BY MOUTH TWICE A DAY 02/08/2017 Inactive metolazone 5 mg tablet RxNorm: 603874 TAKE 1 TABLET BY MOUTH TWICE WEEKLY 02/08/2017 03/06/2017 Inactive Lexapro 5 mg tablet RxNorm: 863152 1 Tablet(s) PO QPM 201603/06/2017 Inactive hydrocodone 7.5 mg-acetaminophen 325 mg tablet RxNorm: 853615 1-2 Tablet(s) PO Q4- 6H as needed pain 01/16/2017 02/22/2017 Inactive Lasix 40 mg tablet RxNorm: 393479 TAKE ONE TABLET BY MOUTH DAILY 01/11/2017 10/07/2017 Inactive metoprolol tartrate 25 mg tablet RxNorm: 476840 TAKE 1/2 TABLET BY MOUTH TWO TIMES A DAY 01/11/2017 07/09/2017 Inactive allopurinol 300 mg tablet RxNorm: 054218 TAKE ONE TABLET BY MOUTH DAILY 01/09/2017 06/07/2017 Inactive hydrocodone 7.5 mg-acetaminophen 325 mg tablet RxNorm: 973403 1-2 Tablet(s) PO Q4- 6H as needed pain 12/06/2016 01/15/2017 Inactive lisinopril 10 mg tablet RxNorm: 297073 TAKE ONE-HALF TABLET BY MOUTH DAILY 12/02/2016 03/09/2017 Inactive buspirone 10 mg tablet RxNorm: 815284 TAKE ONE TABLET BY MOUTH THREE TIMES A DAY 10/25/2016 01/22/2017 Inactive buspirone 10 mg tablet RxNorm: 407095 TAKE ONE TABLET BY MOUTH THREE TIMES A DAY 10/25/2016 10/24/2016 Inactive hydrocodone 7.5 mg-acetaminophen 325 mg tablet RxNorm: 680117 1-2 or 2 Tablet(s) PO Q4-6H as needed pain 10/25/20162016 Inactive cyanocobalamin (vit B-12) 1,000 mcg/mL injection solution RxNorm: 902776 INJECT 1 ML INTRAMUSCULARLY 2 TIMES A MONTH FOR 2 MONTHS, THEN ONCE A MONTH THEREAFTER 10/24/2016 02/12/2017 Inactive metolazone 5 mg tablet RxNorm: 423191 TAKE 1 TABLET BY MOUTH TWICE WEEKLY 09/23/2016 01/12/2017 Inactive hydrocodone 7.5 mg-acetaminophen 325 mg tablet RxNorm: 734136 1-2 or 2 Tablet(s) PO Q4-6H as needed pain 09/13/20162016 Inactive Keflex 500 mg capsule RxNorm: 559913 1 Capsule(s) PO TID 201609/15/2016 Inactive Take with a probiotic BID Keflex 500 mg capsule RxNorm: 796078 1 Capsule(s) PO TID 201609/08/2016 Inactive Take with a probiotic BID metoprolol tartrate 25 mg tablet RxNorm: 706487 TAKE 1/2 TABLET BY MOUTH TWO TIMES A DAY 09/07/2016 01/04/2017 Inactive potassium chloride ER 10 mEq tablet,extended release RxNorm: 708110 TAKE TWO TABLETS BY MOUTH THREE TIMES A DAY 09/01/2016 02/27/2017 Inactive hydrocodone 7.5 mg-acetaminophen 325 mg tablet RxNorm: 844632 1 or 2 Tablet(s) PO Q4-6H as needed pain 08/31/20162016 Inactive omeprazole 20 mg capsule,delayed release RxNorm: 516075 TAKE ONE CAPSULE BY MOUTH TWICE A DAY 08/24/2016 02/07/2017 Inactive hydrocodone 7.5 mg-acetaminophen 325 mg tablet RxNorm: 042572 1 or 2 Tablet(s) PO Q4-6H as needed pain 08/05/20162016 Inactive lisinopril 10 mg tablet RxNorm: 534021 TAKE ONE-HALF TABLET BY MOUTH DAILY 07/28/2016 12/01/2016 Inactive hydrocodone 7.5 mg-acetaminophen 325 mg tablet RxNorm: 677943 1 or 2 Tablet(s) PO Q4-6H as needed pain 07/05/20162016 Inactive allopurinol 300 mg tablet RxNorm: 728427 TAKE ONE TABLET BY MOUTH DAILY 06/16/2016 12/12/2016 Inactive metoprolol tartrate 25 mg tablet RxNorm: 842648 TAKE 1/2 TABLET BY MOUTH TWO TIMES A DAY 06/16/2016 08/14/2016 Inactive buspirone 10 mg tablet RxNorm: 094551 TAKE ONE TABLET BY MOUTH THREE TIMES A DAY 06/15/2016 10/12/2016 Inactive hydrocodone 7.5 mg-acetaminophen 325 mg tablet RxNorm: 589967 1 or 2 Tablet(s) PO Q4-6H as needed pain 06/07/20162016 Inactive metoprolol tartrate 25 mg tablet RxNorm: 864184 1/2 Tablet(s) PO QPM 05/10/2016 06/08/2016 Inactive lisinopril 10 mg tablet RxNorm: 242434 1/2 Tablet(s) PO daily 04/26/2016 07/27/2016 Inactive hydrocodone 7.5 mg-acetaminophen 325 mg tablet RxNorm: 298290 1 or 2 Tablet(s) PO Q4-6H as needed pain 04/25/20162016 Inactive lisinopril 10 mg tablet RxNorm: 091595 1/2 Tablet(s) PO daily 04/25/2016 04/25/2016 Inactive metoprolol tartrate 25 mg tablet RxNorm: 412132 1/2 Tablet(s) PO BID 04/25/2016 05/09/2016 Inactive allopurinol 300 mg tablet RxNorm: 422023 TAKE ONE TABLET BY MOUTH DAILY 04/19/2016 06/15/2016 Inactive metolazone 5 mg tablet RxNorm: 198837 TAKE 1 TABLET BY MOUTH TWICE WEEKLY 04/19/2016 09/05/2016 Inactive potassium chloride ER 10 mEq tablet,extended release RxNorm: 927060 2 Tablet(s) PO TID 03/21/2016 08/17/2016 Inactive warfarin 5 mg tablet RxNorm: 384279 1 Tablet(s) PO daily TAKE ONE TABLET BY MOUTH DAILY 03/21/2016 03/15/[address] Echevarria manages potassium chloride ER 10 mEq tablet,extended release(part/ cryst) RxNorm: 9190926 2 Tablet(s) PO TID 03/11/2016 03/20/2016 Inactive Xanax 0.25 mg tablet RxNorm: 299296 1 Tablet(s) PO TID as needed anxiety 03/10/2016 04/06/2016 Inactive Xanax 0.25 mg tablet RxNorm: 111300 1 Tablet(s) PO TID as needed anxiety 03/10/2016 12/31/2017 Inactive hydrocodone 7.5 mg-acetaminophen 325 mg tablet RxNorm: 365435 1 or 2 Tablet(s) PO Q4-6H as needed pain 02/26/20162016 Inactive Flonase Allergy Relief 50 mcg/actuation nasal spray, suspension RxNorm: 9447617 1 [place] NASAL each nare daily 01/19/2016 03/18/2016 Inactive cefdinir 300 mg capsule RxNorm: 681187 1 Capsule(s) PO BID 01/23/2016 Inactive take probiotic BID x 7 days Flonase Allergy Relief 50 mcg/actuation nasal spray, suspension RxNorm: 9914686 1 [place] NASAL each nare daily 01/19/2016 01/18/2016 Inactive allopurinol 300 mg tablet RxNorm: 618747 TAKE ONE TABLET BY MOUTH DAILY 01/18/2016 04/16/2016 Inactive Lasix 40 mg tablet RxNorm: 406029 1 Tablet(s) PO daily 201501/07/2017 Inactive (this was only twice daily x1 week) now it's daily cefdinir 300 mg capsule RxNorm: 311730 1 Capsule(s) PO BID 01/17/2016 Inactive take probiotic BID x 7 days cefdinir 300 mg capsule RxNorm: 864263 1 Capsule(s) PO BID 01/10/2016 Inactive buspirone 10 mg tablet RxNorm: 311376 TAKE ONE TABLET BY MOUTH THREE TIMES A DAY 01/11/2016 06/08/2016 Inactive hydrocodone 7.5 mg-acetaminophen 325 mg tablet RxNorm: 281636 1 or 2 Tablet(s) PO Q4-6H as needed pain 12/28/20152015 Inactive potassium chloride ER 10 mEq tablet,extended release(part/ cryst) RxNorm: 5889390 2 po TID x 2 days then 2 po BID Tablet(s) 12/28/2015 03/10/2016 Inactive potassium chloride ER 10 mEq tablet,extended release(part/ cryst) RxNorm: 3317584 TAKE ONE TABLET BY MOUTH TWICE A DAY FOR 1 WEEK THEN RETURN TO DAILY 12/28/2015 12/27/2015 Inactive meclizine 25 mg tablet RxNorm: 497486 1 Tablet(s) PO BID PRN No Stop Date Active potassium chloride ER 10 mEq tablet,extended release(part/ cryst) RxNorm: 1159974 1 Tablet(s) PO TID 12/08/2015 03/10/2016 Inactive potassium chloride ER 10 mEq tablet,extended release(part/ cryst) RxNorm: 5347107 2 Tablet(s) PO daily 11/26/20152015 Inactive cyanocobalamin (vit B-12) 1,000 mcg/mL injection solution RxNorm: 579223 INJECT 1 ML INTRAMUSCULARLY 2 TIMES A MONTH FOR 2 MONTHS, THEN ONCE A MONTH THEREAFTER 11/26/2015 04/23/2016 Inactive potassium chloride ER 10 mEq tablet,extended release(part/ cryst) RxNorm: 8764336 3 Tablet(s) PO daily 11/23/20152015 Inactive Lasix 40 mg tablet RxNorm: 450626 1 Tablet(s) PO daily 201501/13/2016 Inactive (this was only twice daily x1 week) now it's daily metolazone 5 mg tablet RxNorm: 397303 1 Tablet(s) BIW TAKE ONE TABLET BY MOUTH DAILY 11/12/2015 04/18/2016 Inactive hydrocodone 7.5 mg-acetaminophen 325 mg tablet RxNorm: 811808 1 or 2 Tablet(s) PO Q4-6H as needed pain 11/12/20152015 Inactive Lasix 40 mg tablet RxNorm: 989919 1 Tablet(s) PO daily 201511/11/2015 Inactive (this was only twice daily x1 week) now it's daily metolazone 5 mg tablet RxNorm: 065585 Tablet(s) TAKE ONE TABLET BY MOUTH DAILY 10/22/2015 10/29/2015 Inactive potassium chloride ER 10 mEq tablet,extended release(part/ cryst) RxNorm: 7721319 1 Tablet(s) PO daily 10/08/20152015 Inactive twice daily x 1 week then return to daily Lasix 40 mg tablet RxNorm: 581050 1 Tablet(s) PO daily 201511/09/2015 Inactive twice daily x 1 week then daily thereafter Keflex 500 mg capsule RxNorm: 556138 1 Capsule(s) PO TID 201510/02/2015 Inactive Keflex 500 mg capsule RxNorm: 320111 1 Capsule(s) PO TID 201509/22/2015 Inactive hydrocodone 7.5 mg-acetaminophen 325 mg tablet RxNorm: 164512 1 or 2 Tablet(s) PO Q4-6H as needed pain 09/22/20152015 Inactive potassium chloride ER 10 mEq tablet,extended release(part/ cryst) RxNorm: 5656318 1 Tablet(s) PO BID 09/22/2015 10/07/2015 Inactive twice daily x 1 week then return to daily Lasix 40 mg tablet RxNorm: 100129 1 Tablet(s) PO BID 201510/07/2015 Inactive twice daily x 1 week then daily thereafter allopurinol 300 mg tablet RxNorm: 823168 1 Tablet(s) PO daily 09/09/2015 01/06/2016 Inactive diltiazem 90 mg tablet RxNorm: 977408 Tablet(s) TAKE ONE TABLET BY MOUTH THREE TIMES A DAY 09/02/2015 01/28/2016 Inactive diltiazem 90 mg tablet RxNorm: 599475 TAKE ONE TABLET BY MOUTH THREE TIMES A DAY 08/31/2015 01/28/2016 Inactive diltiazem 90 mg tablet RxNorm: 355600 TAKE ONE TABLET BY MOUTH THREE TIMES A DAY 08/31/2015 09/01/2015 Inactive Xanax 0.25 mg tablet RxNorm: 427857 1 Tablet(s) PO TID as needed anxiety 08/28/2015 09/26/2015 Inactive Xanax 0.25 mg tablet RxNorm: 334806 1 Tablet(s) PO TID as needed anxiety 08/28/2015 08/27/2015 Inactive potassium chloride ER 10 mEq tablet,extended release(part/ cryst) RxNorm: 279616 TAKE ONE TABLET BY MOUTH DAILY 08/27/2015 2015 Inactive omeprazole 20 mg capsule,delayed release RxNorm: 472028 TAKE ONE CAPSULE BY MOUTH TWICE A DAY 08/16/2015 02/11/2016 Inactive omeprazole 20 mg capsule,delayed release RxNorm: 171101 TAKE ONE CAPSULE BY MOUTH TWICE A DAY 08/16/2015 08/15/2015 Inactive hydrocodone 7.5 mg-acetaminophen 325 mg tablet RxNorm: 450464 1 or 2 Tablet(s) PO Q4-6H as needed pain 08/11/20152015 Inactive omeprazole 20 mg capsule,delayed release RxNorm: 378070 Capsule(s) TAKE ONE CAPSULE BY MOUTH TWICE A DAY 08/03/2015 Inactive omeprazole 20 mg capsule,delayed release RxNorm: 160273 Capsule(s) TAKE ONE CAPSULE BY MOUTH TWICE A DAY 07/31/2015 Inactive buspirone 10 mg tablet RxNorm: 963407 TAKE ONE TABLET BY MOUTH THREE TIMES A DAY 07/13/2015 01/08/2016 Inactive metolazone 5 mg tablet RxNorm: 187745 TAKE ONE TABLET BY MOUTH DAILY 07/02/2015 07/09/2015 Inactive metolazone 5 mg tablet RxNorm: 906867 1 Tablet(s) PO daily 06/18/2015 Inactive metolazone 5 mg tablet RxNorm: 007689 1 Tablet(s) PO daily 06/14/2015 Inactive hydrocodone 7.5 mg-acetaminophen 325 mg tablet RxNorm: 339078 1or2 1 or 2 Tablet(s ) PO Q4-6H as needed pain 06/12/201507/10 Inactive warfarin 1 mg tablet RxNorm: 068262 1 Tablet(s) 04/15/2015 06/22/2015 Inactive take with 3mg to make 4mg on Mon and repeat in 1 week. hydrocodone 7.5 mg-acetaminophen 325 mg tablet RxNorm: 951883 1or2 or 2 Tablet(s) PO Q4-6H as needed pain 03/31/20152015 Inactive hydrocodone 7.5 mg-acetaminophen 325 mg tablet RxNorm: 713964 1or2 or 2 Tablet(s) PO Q4-6H as needed pain 03/25/20152015 Inactive warfarin 5 mg tablet RxNorm: 079204 1 Tablet(s) PO daily TAKE ONE TABLET BY MOUTH DAILY 03/05/2015 06/22/2015 Inactive Xarelto 20 mg tablet RxNorm: 4960735 1 Tablet(s) PO QPM 201503/04/2015 Inactive losartan 100 mg tablet RxNorm: 917357 1 Tablet(s) PO daily 05/201406/22/2015 Inactive [SAVINGS FOR NON-COVERED DRUGS -- BIN:[id number], PCN: ASPROD1, Group: XXXXX, ID# [id number], Questions: . THIS IS NOT INSURANCE.] Kenalog 40 mg/mL suspension for injection RxNorm: 7480547 1 Milliliter(s) Inj 01/30/2015 01/30/2015 Inactive hydrocodone 7.5 mg-acetaminophen 325 mg tablet RxNorm: 312162 1or2 or 2 Tablet(s) PO Q4-6H as needed pain 01/15/20152014 Inactive Lasix 40 mg tablet RxNorm: 227543 1 Tablet(s) PO daily 201409/21/2015 Inactive as needed for swelling-take potassium when you take lasix potassium chloride ER 10 mEq tablet,extended release(part/ cryst) RxNorm: 499568 2 Tablet(s) PO daily 01/06/2015 01/19/2015 Inactive Lasix 40 mg tablet RxNorm: 521997 1 Tablet(s) PO daily 201401/06/2015 Inactive Ok to fill 20mg, not 40mg as needed for swelling-take potassium when you take lasix potassium chloride ER 10 mEq tablet,extended release(part/ cryst) RxNorm: 448013 1 Tablet(s) PO BID 12/30/2014 01/05/2015 Inactive Vitamin D2 50,000 unit capsule RxNorm: 414228 TAKE 1 CAPSULE BY MOUTH ONCE WEEKLY FOR 12 WEEKS 12/30/2014 03/23/2015 Inactive potassium chloride ER 10 mEq tablet,extended release(part/ cryst) RxNorm: 681837 1 Tablet(s) PO daily 12/26/2014 12/29/2014 Inactive potassium chloride ER 10 mEq tablet,extended release(part/ cryst) RxNorm: 827044 1 Tablet(s) PO daily 12/26/2014 12/25/2014 Inactive omeprazole 20 mg capsule,delayed release RxNorm: 652099 TAKE ONE CAPSULE BY MOUTH TWICE A DAY 12/24/2014 07/21/2015 Inactive Flagyl 500 mg tablet RxNorm: 027725 1 Tablet(s) PO TID 201412/20/2014 Inactive Flagyl 500 mg tablet RxNorm: 481184 1 Tablet(s) PO TID 201412/10/2014 Inactive warfarin 3 mg tablet RxNorm: 312401 TAKE ONE TABLET BY MOUTH DAILY 11/13/2014 01/29/2015 Inactive warfarin 3 mg tablet RxNorm: 019054 TAKE ONE TABLET BY MOUTH DAILY 11/13/2014 01/29/2015 Inactive warfarin 3 mg tablet RxNorm: 069752 TAKE ONE TABLET BY MOUTH DAILY 11/13/2014 03/04/2015 Inactive warfarin 3 mg tablet RxNorm: 453837 1 Tablet(s) PO daily 201403/04/2015 Inactive allopurinol 300 mg tablet RxNorm: 275219 1 Tablet(s) PO daily 11/11/2014 03/10/2015 Inactive hydrocodone 7.5 mg-acetaminophen 325 mg tablet RxNorm: 275001 1or2 or 2 Tablet(s) PO Q4-6H as needed pain 11/10/20142014 Inactive hydrocodone 7.5 mg-acetaminophen 325 mg tablet RxNorm: 524001 1or2 or 2 Tablet(s) PO Q4-6H as needed pain 10/15/20142014 Inactive hydrocodone 7.5 mg-acetaminophen 325 mg tablet RxNorm: 168134 1or2 or 2 Tablet(s) PO Q4-6H as needed pain 10/15/20142014 Inactive Kenalog 40 mg/mL suspension for injection RxNorm: 8486987 Milliliter(s) Inj 10/14/2014 10/14/2014 Inactive ceftriaxone 500 mg solution for injection RxNorm: 9707777 Inj 10/14/2014 10/14/2014 Inactive Zithromax Z-Chito 250 mg tablet RxNorm: 868152 1 Tablet(s) PO UD 10/14/2014 01/29/2015 Inactive zpack cefdinir 300 mg capsule RxNorm: 995783 1 Capsule(s) PO BID 10/20/2014 Inactive Vitamin D2 50,000 unit capsule RxNorm: 127760 1 Capsule(s) PO weekly x 12 weeks 09/24/2014 09/23/2014 Inactive Vitamin D2 50,000 unit capsule RxNorm: 491977 1 Capsule(s) PO weekly x 12 weeks 09/24/2014 12/22/2014 Inactive warfarin 1 mg tablet RxNorm: 050576 TAKE 1/2 TABLET BY MOUTH DAILY WITH 3MG TABLET TO EQUAL 3.5MG DAILY 09/22/201404/2014 Inactive warfarin 1 mg tablet RxNorm: 761077 1/2 Tablet(s) PO daily 3.5mg 08/26/2014 2014 Inactive taking with a 3mg to make 3.5mg tablets Lasix 20 mg tablet RxNorm: 942042 1 Tablet(s) PO QDAY PRN 09/24/2014 Inactive Ok to fill 20mg, not 40mg as needed for swelling-take potassium when you take lasix buspirone 10 mg tablet RxNorm: 333293 1 Tablet(s) PO TID 201411/25/2014 Inactive takes it BID but if she feels anxious she takes one during the day Lasix 20 mg tablet RxNorm: 275167 1 Tablet(s) PO QDAY PRN 08/25/2014 Inactive as needed for swelling-take potassium when you take lasix warfarin 1 mg tablet RxNorm: 105664 1/2 Tablet(s) PO daily 3.5mg 08/15/2014 08/21/2014 Inactive taking with a 3mg to make 3.5mg tablets warfarin 3 mg tablet RxNorm: 435205 1 Tablet(s) PO daily 201410/11/2014 Inactive diltiazem 90 mg tablet RxNorm: 052220 1 Tablet(s) PO TID 201408/30/2015 Inactive warfarin 1 mg tablet RxNorm: 814273 1/2 Tablet(s) PO daily 3.5mg 08/05/2014 08/11/2014 Inactive taking with a 3mg to make 3.5mg tablets cyclobenzaprine 10 mg tablet RxNorm: 797812 1 Tablet(s) PO QHS 08/04/2014 11/01/2014 Inactive buspirone 10 mg tablet RxNorm: 788737 1 Tablet(s) PO QID 201408/21/2014 Inactive allopurinol 300 mg tablet RxNorm: 138421 1 Tablet(s) PO daily 08/04/2014 11/01/2014 Inactive clonazepam 0.5 mg tablet RxNorm: 275586 1 Tablet(s) PO daily 09/02/2014 Inactive omeprazole 20 mg capsule,delayed release RxNorm: 573744 1 Capsule(s) PO BID 08/04/2014 11/01/2014 Inactive atenolol 25 mg tablet RxNorm: 177072 1 Tablet(s) PO daily 201411/01/2014 Inactive warfarin 3 mg tablet RxNorm: 472763 1 Tablet(s) PO daily 201408/04/2014 Inactive diphenhydramine 2 % topical cream RxNorm: 8366723 1 Application TOP Q6 PRN 07/24/2014 01/29/2015 Inactive diltiazem 90 mg tablet RxNorm: 530151 1 Tablet(s) PO BID 201408/04/2014 Inactive cyclobenzaprine 10 mg tablet RxNorm: 669482 1 Tablet(s) PO QH 07/24/2014 08/03/2014 Inactive warfarin 2.5 mg tablet RxNorm: 480650 1 Tablet(s) PO daily 08/22/2014 Inactive [SAVINGS FOR NON-COVERED DRUGS -- BIN:[id number], PCN: ASPROD1, Group: XXXXX, ID# [id number], Questions: . THIS IS NOT INSURANCE.] losartan 25 mg tablet RxNorm: 784469 1 Tablet(s) PO daily 201401/29/2015 Inactive [SAVINGS FOR NON-COVERED DRUGS -- BIN:[id number], PCN: ASPROD1, Group: XXXXX, ID # [id number], Questions: . THIS IS NOT INSURANCE.] isosorbide mononitrate oral RxNorm: 6057 oral No Start Date Active diltiazem ER 360 mg tablet,extended release 24 hr RxNorm: 822392 1 Tablet(s) PO daily No Start Date Active benazepril 10 mg tablet RxNorm: 308678 1 Tablet(s) PO daily No Start Date 07/14/2014 Inactive lisinopril 10 mg tablet RxNorm: 296254 1 Tablet(s) PO daily No Start Date 04/24/2016 Inactive clonazepam 0.5 mg tablet RxNorm: 419935 1 Tablet(s) PO daily No Start Date 08/03/2014 Inactive diltiazem 90 mg tablet RxNorm: 135686 1 Tablet(s) PO daily No Start Date 07/23/2014 Inactive atenolol 25 mg tablet RxNorm: 826321 1 Tablet(s) PO daily No Start Date 08/03/2014 Inactive buspirone 10 mg tablet RxNorm: 531888 1 Tablet(s) PO QID No Start Date 08/03/2014 Inactive omeprazole 20 mg capsule,delayed release RxNorm: 508170 1 Capsule(s) PO BID No Start Date 08/03/2014 Inactive allopurinol 300 mg tablet RxNorm: 666181 1 Tablet(s) PO daily No Start Date 08/03/2014 Inactive Xarelto 20 mg tablet RxNorm: 8339354 1 Tablet(s) PO daily No Start Date 03/03/2015 Inactive warfarin 2 mg tablet RxNorm: 219641 1 Tablet(s) PO daily No Start Date 07/16/2014 Inactive cyanocobalamin (vit B-12) 1,000 mcg/mL injection solution RxNorm: 765188 1 Milliliter(s) Inj monthly No Start Date Inactive cyclobenzaprine 10 mg tablet RxNorm: 883103 1 Tablet(s) PO BID No Start Date 07/23/2014 Inactive Eliquis 2.5 mg tablet RxNorm: 9396061 1 Tablet(s) PO daily No Start Date 03/03/2015 Inactive Medication Administered Medication Codes Instructions Start Date Status Kenalog 40 mg/mL suspension for injection RxNorm: 9663196 1Milliliter 01/30/2015 No longer Active ceftriaxone 500 mg solution for injection RxNorm: 3437277 10/14/2014 No longer Active Kenalog 40 mg/mL suspension for injection RxNorm: 4244582 Milliliter 10/14/2014 No longer Active Immunizations Vaccine [...] Other malaise ICD-10: R53.81 ICD-9: 780.79 12/12/2017 jail (current) use of anticoagulants ICD-10: Z79.01 ICD-9: V58.61 12/12/2017 Vascular dementia without behavioral disturbance ICD-10: F01.50 ICD-9: 290.40 12/12/2017 Paroxysmal atrial fibrillation ICD-10: I48.0 ICD-9: 427.31 09/05/2017 Major depressive disorder, single episode, unspecified ICD- 10: F32.9 ICD-9: 311 05/09/2017 Generalized anxiety disorder ICD-10: F41.1 ICD-9: 300.02 05/09/2017 Localized edema ICD-10: R60.0 ICD-9: 782.3 05/09/2017 Other chest pain ICD-10: R07.89 ICD-9: [...] ICD-9: 724.2 10/29/2014 Cough ICD-9: 786.2 10/29/2014 MUSCLE WEAKNESS-GENERAL ICD-9: 728.87 03/2014 Anticoagulated on Coumadin ICD-9: V58.83 10/29/2014 DYSPHAGIA, PHARYNGEAL ICD-9: 787.23 10/29 EDEMA ICD-9: 782.3 10/29/2014 Pneumonia ICD-9: 486 10/14/2014 DYSPHAGIA, NOS ICD-9: 787.20 10/14/2014 ESOPHAGEAL REFLUX ICD-9: 530.81 2014 ESSENTIAL HYPERTENSION ICD-9: 401.9 09/19 VITAMIN D DEFICIENCY ICD-9: 268.9 2014 Atrial fibrillation ICD-9: 427.31 2014 SLEEP RELATED LEG CRAMPS ICD-9: 327.52 LONG-TERM USE ANTICOAGUL ICD-9: V58.61 DEPRESSIVE DISORDER [...] Result Date Metabolic Ord15 NA 139 mEq/L 02/21/2018 Metabolic [...] Metabolic Ord15 CALCIUM 9.0 mg/dL 02/21/2018 Pt Mrw0449 PT 23.4 seconds 02/21/2018 Pt Tew1208 INR 2.1 02/21/2018 Pt Dek7133 Low Intensity - 1.5-2.0 02/21/2018 Pt Coc7349 Mod intensity - 2.0-3.0 02/21/2018 Pt Mgn0080 Hi intensity - 3.0-4.0 02/21/2018 Pt Rnt0082 PT 27.0 seconds 01/15/2018 Pt Tub4846 INR 2.5 01/15/2018 Pt Osa7416 Low Intensity - 1.5-2.0 01/15/2018 Pt Hdy1627 Mod intensity - 2.0-3.0 01/15/2018 Pt Mrq4647 Hi intensity - 3.0-4.0 01/15/2018 Metabolic Ord15 [...] Metabolic Ord15 CALCIUM 9.2 mg/dL 01/15/2018 Pt Yfx4106 PT 29.3 seconds 12/18/2017 Pt Vaw8114 INR 2.8 12/18/2017 Pt Sss7633 Low Intensity - 1.5-2.0 12/18/2017 Pt Fog9649 Mod intensity - 2.0-3.0 12/18/2017 Pt Ehg5368 Hi intensity - 3.0-4.0 12/18/2017 Metabolic Ord15 [...] Ord15 CALCIUM 9.7 mg/dL 12/18/2017 Comp Metabolic Qvo706 NA 138 mEq/L 09/29/2015 Comp Metabolic Lba700 K 4.6 mEq/L 09/29/2015 Comp Metabolic Ctg876 CL 102 mEq/L 09/29/2015 Comp Metabolic Xbd810 CO2 28.0 mEq/L 09/29/2015 Comp Metabolic Azm538 ANION GAP 13 09/29/2015 Comp Metabolic Iha572 GLUCOSE 83 mg/dL 09/29/2015 Comp Metabolic Wzz501 Creat 1.1 mg/dL 09/29/2015 Comp Metabolic Ogd803 eGFR 52 ml/min/1.73m2 09/29/2015 Comp Metabolic Gfh550 BUN 18 mg/dL 09/29/2015 Comp Metabolic Dbk627 B/C Ratio 16.7 Ratio 09/29/2015 Comp Metabolic Lmk895 CALCIUM 9.6 mg/dL 09/29/2015 Comp Metabolic Mvu219 ALK PHOS 188 U/L 09/29/2015 Comp Metabolic Hvn853 AST(SGOT) 19 U/L 09/29/2015 Comp Metabolic Zcz152 ALT(SGPT) 12 U/L 09/29/2015 Comp Metabolic Ryz776 BILI T 0.6 mg/dL 09/29/2015 Comp Metabolic Roj649 ALBUMIN 4.0 g/dL 09/29/2015 Comp Metabolic Ntw757 TPRO 6.6 g/dL 09/29/2015 Comp Metabolic Hiu250 GLOB 2.6 g/dL 09/29/2015 Comp Metabolic Fpw641 A/G Ratio 1.5 Ratio 09/29/2015 Comp Metabolic Cxj501 Osmo 277 mOsmo 09/29/2015 Cbc With Differential [...] 84.1 fl 09/29/2015 Cbc With Differential Ord2 Bull[place]% 18.3 % 09/29/2015 Cbc With Differential Ord2 [...] 1.41 K/ul 09/29/2015 Cbc With Differential Ord2 [place] ABS# 1.8 K/ul 09/29/2015 Cbc With Differential Ord2 Eos ABS# 0.2 K/ul 09/29/2015 Cbc With Differential Ord2 Baso ABS# 0.1 K/ul 09/29/2015 Comp Metabolic Nye018 NA 134 mEq/L 09/22/2015 Comp Metabolic Oob156 K 4.7 mEq/L 09/22/2015 Comp Metabolic Mur034 CL 98 mEq/L 09/22/2015 Comp Metabolic Djy625 CO2 26.0 mEq/L 09/22/2015 Comp Metabolic Oft946 ANION GAP 15 09/22/2015 Comp Metabolic Ida773 GLUCOSE 83 mg/dL 09/22/2015 Comp Metabolic Nli497 Creat 1.1 mg/dL 09/22/2015 Comp Metabolic Aqq139 eGFR 52 ml/min/1.73m2 09/22/2015 Comp Metabolic Osl194 BUN 19 mg/dL 09/22/2015 Comp Metabolic Rkz703 B/C Ratio 17.8 Ratio 09/22/2015 Comp Metabolic Mwx352 CALCIUM 9.4 mg/dL 09/22/2015 Comp Metabolic Clw005 ALK PHOS 182 U/L 09/22/2015 Comp Metabolic Owm490 AST(SGOT) 30 U/L 09/22/2015 Comp Metabolic Grf775 ALT(SGPT) 16 U/L 09/22/2015 Comp Metabolic Rjo646 BILI T 0.8 mg/dL 09/22/2015 Comp Metabolic Epz697 ALBUMIN 3.9 g/dL 09/22/2015 Comp Metabolic Ogy241 TPRO 6.8 g/dL 09/22/2015 Comp Metabolic Tac185 GLOB 2.9 g/dL 09/22/2015 Comp Metabolic Skw983 A/G Ratio 1.3 Ratio 09/22/2015 Comp Metabolic Ohv420 Osmo 270 mOsmo 09/22/2015 Cbc With Differential [...] 25.7 pg 09/22/2015 Cbc With Differential Ord2 Bull[place]% 15.4 % 09/22/2015 Cbc With Differential Ord2 [...] 1.81 K/ul 09/22/2015 Cbc With Differential Ord2 [place] ABS# 1.7 K/ul 09/22/2015 Cbc With Differential [...] 27.8 % 06/02/2015 Cbc With Differential Ord2 Lymph% 16.5 % 06/02/2015 Cbc With Differential Ord2 MCV 88.0 fl 06/02/2015 Cbc With Differential Ord2 [place]% 16.6 % 06/02/2015 Cbc With Differential Ord2 [...] 1.74 K/ul 06/02/2015 Cbc With Differential Ord2 [place] ABS# 1.8 K/ul 06/02/2015 Cbc With Differential Ord2 Eos ABS# 0.1 K/ul 06/02/2015 Cbc With Differential Ord2 Baso ABS# 0.0 K/ul 06/02/2015 Cbc With Differential Ord2 New Analyzer Notice Please note new ref ranges starting 03-11-2015 due to implemntation of new five part differential hematolgy analyzer. 06/02/2015 Pt Hsb3505 PT 21.8 seconds 06/02/2015 Pt Yvw8372 INR 2.0 06/02/2015 Pt Uye4907 Low Intensity - 1.5-2.0 06/02/2015 Pt Aej3701 Mod intensity - 2.0-3.0 06/02/2015 Pt Dof6839 Hi intensity - 3.0-4.0 06/02/2015 Comp Metabolic Kqn739 NA 132 mEq/L 06/02/2015 Comp Metabolic Vap567 K 4.4 mEq/L 06/02/2015 Comp Metabolic Cnl545 CL 94 mEq/L 06/02/2015 Comp Metabolic Ftk479 CO2 26.0 mEq/L 06/02/2015 Comp Metabolic Rhe556 ANION GAP 16 06/02/2015 Comp Metabolic Vpd973 GLUCOSE 97 mg/dL 06/02/2015 Comp Metabolic Fit798 Creat 1.2 mg/dL 06/02/2015 Comp Metabolic Acg900 eGFR 46 ml/min/1.73m2 06/02/2015 Comp Metabolic Vok930 BUN 19 mg/dL 06/02/2015 Comp Metabolic Gii772 B/C Ratio 15.8 Ratio 06/02/2015 Comp Metabolic Rbg123 CALCIUM 9.4 mg/dL 06/02/2015 Comp Metabolic Ssi613 ALK PHOS 178 U/L 06/02/2015 Comp Metabolic Rwa890 AST(SGOT) 32 U/L 06/02/2015 Comp Metabolic Njb939 ALT(SGPT) 31 U/L 06/02/2015 Comp Metabolic Hvc107 BILI T 0.6 mg/dL 06/02/2015 Comp Metabolic Aff980 ALBUMIN 4.0 g/dL 06/02/2015 Comp Metabolic Nvu419 TPRO 6.5 g/dL 06/02/2015 Comp Metabolic Qfi856 GLOB 2.5 g/dL 06/02/2015 Comp Metabolic Qqi040 A/G Ratio 1.6 Ratio 06/02/2015 Comp Metabolic Lic120 Osmo 267 mOsmo 06/02/2015 B12 Cib299 B12 160.00 pg/ml 04/01/2015 Iron Ord72 Iron 39 ug/dl 04/01/2015 Vitamin D 25 Oh Gov4090 VITAMIN D, 25 HYDROXY 61.20 ng/mL Tsh Ord6 hTSH II 1.87 uIU/mL 03/31/2015 Pt Ycz2471 PT 36.9 seconds 03/31/2015 Pt Ckh0726 INR 3.9 03/31/2015 Pt Lyc6809 Low Intensity - 1.5-2.0 03/31/2015 Pt Wwx3630 Mod intensity - 2.0-3.0 03/31/2015 Pt Acb4253 Hi intensity - 3.0-4.0 03/31/2015 Comp Metabolic Pyp564 NA 131 mEq/L 03/31/2015 Comp Metabolic Sun052 K 5.3 mEq/L 03/31/2015 Comp Metabolic Afm244 CL 97 mEq/L 03/31/2015 Comp Metabolic Nyz133 CO2 24.0 mEq/L 03/31/2015 Comp Metabolic Mbl758 ANION GAP 15 03/31/2015 Comp Metabolic Wrf534 GLUCOSE 84 mg/dL 03/31/2015 Comp Metabolic Tun075 Creat 1.3 mg/dL 03/31/2015 Comp Metabolic Zva312 eGFR 42 ml/min/1.73m2 03/31/2015 Comp Metabolic Zei385 BUN 26 mg/dL 03/31/2015 Comp Metabolic Uwp543 B/C Ratio 20.2 Ratio 03/31/2015 Comp Metabolic Qmj231 CALCIUM 9.4 mg/dL 03/31/2015 Comp Metabolic Oan708 ALK PHOS 172 U/L 03/31/2015 Comp Metabolic Tey932 AST(SGOT) 21 U/L 03/31/2015 Comp Metabolic Oha897 ALT(SGPT) 27 U/L 03/31/2015 Comp Metabolic Rwo582 BILI T 0.5 mg/dL 03/31/2015 Comp Metabolic Gso821 ALBUMIN 4.0 g/dL 03/31/2015 Comp Metabolic Cco100 TPRO 6.8 g/dL 03/31/2015 Comp Metabolic Rfx502 GLOB 2.8 g/dL 03/31/2015 Comp Metabolic Inb098 A/G Ratio 1.4 Ratio 03/31/2015 Comp Metabolic Agb249 Osmo 267 mOsmo 03/31/2015 Cbc With Differential [...] 28.3 pg 03/31/2015 Cbc With Differential Ord2 Bull[place]% 14.0 % 03/31/2015 Cbc With Differential Ord2 [...] 1.62 K/ul 03/31/2015 Cbc With Differential Ord2 [place] ABS# 1.6 K/ul 03/31/2015 Cbc With Differential [...] Magnesium Ord90 Mag 2.0 mg/dL 09/19/2014 Pt Lyt0978 PT 29.1 seconds 09/19/2014 Pt Vvz6894 INR 2.9 09/19/2014 Pt Qtk3792 Low Intensity - 1.5-2.0 09/19/2014 Pt Pyw6310 Mod intensity - 2.0-3.0 09/19/2014 Pt Aee8907 Hi intensity - 3.0-4.0 09/19/2014 Tsh Ord6 hTSH II 1.40 uIU/mL 09/19/2014 Lipid Ord30 CHOL 216 mg/dL 09/19/2014 Lipid Ord30 HDL 78.0 mg/dl 09/19/2014 Lipid Ord30 TRIG 85 mg/dL 09/19/2014 Lipid Ord30 LDL 121 mg/dL 09/19/2014 Lipid Ord30 C/HDL 2.8 Ratio 09/19/2014 Vitamin D 25 Oh Owf4181 VITAMIN D, 25 HYDROXY 14.13 ng/mL Comp Metabolic Zsz155 NA 134 mEq/L 09/19/2014 Comp Metabolic Elj714 K 4.7 mEq/L 09/19/2014 Comp Metabolic Fjv144 CL 98 mEq/L 09/19/2014 Comp Metabolic Kvf267 CO2 27.0 mEq/L 09/19/2014 Comp Metabolic Qak379 ANION GAP 14 09/19/2014 Comp Metabolic Vpr108 GLUCOSE 94 mg/dL 09/19/2014 Comp Metabolic Why909 Creat 1.1 mg/dL 09/19/2014 Comp Metabolic Nkp406 eGFR 49 ml/min/1.73m2 09/19/2014 Comp Metabolic Wzo461 BUN 14 mg/dL 09/19/2014 Comp Metabolic Fsd708 B/C Ratio 12.3 Ratio 09/19/2014 Comp Metabolic Ajz061 CALCIUM 9.7 mg/dL 09/19/2014 Comp Metabolic Qhi433 ALK PHOS 150 U/L 09/19/2014 Comp Metabolic Fro571 AST(SGOT) 16 U/L 09/19/2014 Comp Metabolic Rtb469 ALT(SGPT) 9 U/L 09/19/2014 Comp Metabolic Eyf280 BILI T 0.8 mg/dL 09/19/2014 Comp Metabolic Hdm349 ALBUMIN 3.9 g/dL 09/19/2014 Comp Metabolic Uxa467 TPRO 6.8 g/dL 09/19/2014 Comp Metabolic Zdn892 GLOB 2.9 g/dL 09/19/2014 Comp Metabolic Zfq873 A/G Ratio 1.3 Ratio 09/19/2014 Comp Metabolic Bgq570 Osmo 268 mOsmo 09/19/2014 Cbc With Differential [...] clear 01/24/2017 None Full Exam - General 1995 Ears/Nose/Throat lips/teeth/gingiva Overall: benign lips 01/24/2017 None [...] Model/CDA Sections, Assigned to/Indira Ibanez SNKIESHA CT: [id number] CPT-4: 65522Bitgbza 12/10/2015 TRIAMCINOLONE ACET INJ NOS CPT-4: J3301 01/30/2015 URINALYSIS NONAUTO W/O SCOPE CPT-4: 41695 11/07/2014 ROCEPHIN, PER 250 MG CPT-4: J0696 10/14/2014 TRIAMCINOLONE ACET INJ NOS CPT-4: J3301 10/14/2014 Vital Signs Date Vital 03/15/2018 Blood Pressure 1: 146/60 Code : 8480-6 BMI: 25.2 Code : 08940-9 Heart Rate 1 : 79 bpm Height: 5'2" SpO2: 98% Weight: 138 lbs 12/12/2017 Blood Pressure 1: 130/60 Code : 8480-6 BMI: 25.2 Code : 98207-6 Heart Rate 1 : 60 bpm Height: 5'2" SpO2: 98% Weight: 138 lbs 09/05/2017 Blood Pressure 1: 108/46 Code : 8480-6 BMI: 24.0 Code : 82237-5 Heart Rate 1 : 70 bpm Height: 5'2" SpO2: 96% Weight: 131 lbs 05/09/2017 Blood Pressure 1: 122/82 Code : 8480-6 BMI: 25.2 Code : 65402-0 Heart Rate 1 : 72 bpm Height: 5'2" SpO2: 95% Weight: 138 lbs 03/07/2017 Blood Pressure 1: 108/52 Code : 8480-6 BMI: 27.6 Code : 32387-9 Heart Rate 1 : 72 bpm Height: 5'2" SpO2: 96% Weight: 151 lbs 01/24/2017 Blood Pressure 1: 126/60 Code : 8480-6 BMI: 27.1 Code : 07204-3 Heart Rate 1 : 60 bpm Height: [...] Code : 8480-6 BMI: 26.8 Code : 86295-7 Heart Rate 1 : 59 bpm Height: 5'2" SpO2: 97% Weight: 146 lbs 8 oz 05/10/2016 Blood Pressure 1: 120/56 Code : 8480-6 BMI: 27.1 Code : 75492-3 Heart Rate 1 : 63 bpm Height: 5'2" SpO2: 97% Weight: 148 lbs 04/25/2016 Blood Pressure 1: 134/66 Code : 8480-6 BMI: 24.9 Code : 24381-3 Heart Rate 1 : 118 bpm Height: 5'2" SpO2: 93% Temperature: 36.8 (C) / 98.3 (F) Weight: 136 lbs 01/14/2016 Blood Pressure 1: 132/78 Code : 8480-6 BMI: 25.6 Code : 97762-8 Heart Rate 1 : 97 bpm Height: 5'2" SpO2: 95% Weight: 140 lbs 12/10/2015 Blood Pressure 1: 118/72 Code : 8480-6 BMI: 26.2 Code : 89594-9 Heart Rate 1 : 68 bpm Height: 5'2" SpO2: 95% Weight: 143 lbs 11/12/2015 Blood Pressure 1: 140/80 Code : 8480-6 BMI: 25.6 Code : 50869-9 Heart Rate 1 : 77 bpm Height: 5'2" SpO2: 93% Weight: 140 lbs 10/08/2015 Blood Pressure 1: 132/60 Code : 8480-6 BMI: 26.2 Code : 18534-3 Heart Rate 1 : 77 bpm Height: 5'2" SpO2: 96% Weight: 143 lbs 09/29/2015 Blood Pressure 1: 130/62 Code : 8480-6 BMI: 27.1 Code : 27514-1 Heart Rate 1 : 86 bpm Height: 5'2" SpO2: 93% Weight: 148 lbs 09/22/2015 Blood Pressure 1: 164/72 Code : 8480-6 BMI: 28.2 Code : 60126-6 Heart Rate 1 : 79 bpm Height: 5'2" SpO2: 92% Weight: 154 lbs 07/21/2015 Blood Pressure 1: 124/70 Code : 8480-6 BMI: 24.5 Code : 22618-9 Heart Rate 1 : 71 bpm Height: 5'2" SpO2: 98% Weight: 134 lbs 06/23/2015 Blood Pressure 1: 122/68 Code : 8480-6 BMI: 25.4 Code : 09455-4 Heart Rate 1 : 78 bpm Height: 5'2" SpO2: 92% Weight: 139 lbs 06/12/2015 Blood Pressure 1: 154/62 Code : 8480-6 BMI: 27.4 Code : 22215-7 Heart Rate 1 : 87 bpm Height: 5'2" SpO2: 94% Weight: 150 lbs 06/02/2015 Blood Pressure 1: 140/68 Code : 8480-6 Heart Rate 1: 90 bpm SpO2: 91% Weight: 142 lbs 03/31/2015 Blood Pressure 1: 120/56 Code : 8480-6 BMI: 23.6 Code : 38497-0 Heart Rate 1 : 82 bpm Height: 5'2" SpO2: 98% Weight: 129 lbs 01/30/2015 Blood Pressure 1: 108/62 Code : 8480-6 BMI: 22.1 Code : 62017-0 Heart Rate 1 : 8299 bpm Height: 5'2 " SpO2: 99% Weight: 121 lbs 12/22/2014 Blood Pressure 1: 130/70 Code : 8480-6 BMI: 21.8 Code : 62474-0 Heart Rate 1 : 106 bpm Height: 5'2" SpO2: 98% Weight: 119 lbs 10/29/2014 Blood Pressure 1: 118/58 Code : 8480-6 BMI: 23.2 Code : 33567-0 Heart Rate 1 : 74 bpm Height: 5'2" SpO2: 93% Weight: 127 lbs 10/14/2014 Blood Pressure 1: 128/64 Code : 8480-6 BMI: 22.9 Code : 80385-1 Heart Rate 1 : 79 bpm Height: 5'2" SpO2: 93% Temperature: 35.9 (C) / 96.6 (F) Weight: 125 lbs 09/19/2014 Blood Pressure 1: 132/72 Code : 8480-6 BMI: 22.9 Code : 24646-5 Heart Rate 1 : 84 bpm Height: 5'2" SpO2: 96% Weight: 125 lbs 08/22/2014 Blood Pressure 1: 124/72 Code : 8480-6 BMI: 23.0 Code : 00745-0 Heart Rate 1 : 64 bpm Height: 5'2" Weight: 126 lbs 08/04/2014 Blood Pressure 1: 126/86 Code : 8480-6 BMI: 23.6 Code : 99987-6 Height: 5'2" Respiratory Rate: 20 bpm Weight: 129 lbs 07/24/2014 Blood Pressure 1: 116/72 Code : 8480-6 BMI: 23.6 Code : 41485-0 Heart Rate 1 : 74 bpm Height: 5'2" Weight: 129 lbs 07/15/2014 Blood Pressure 1: 132/78 Code : 8480-6 BMI: 24.1 Code : 08372-7 Heart Rate 1 : 74 bpm Height: [...] data Encounters Encounter Performer Location Codes Date ([id number]) [id number] EST. PATIENT, LEVEL IV Diagnosis: Right lower quadrant pain[ICD10: R10.31] Diagnosis: Diarrhea, unspecified[ICD10: R19.7] Diagnosis: Essential (primary) hypertension[ICD10: I10] Diagnosis: Low back pain[ICD10: M54.5] Diagnosis: Gastro-esophageal reflux disease without esophagitis[ICD10: K21.9] Merle Daigle MD, [facility] CPT-4: 38013 03/15/2018 ([id number]) 04893 EST. PATIENT, LEVEL IV Diagnosis: Essential (primary) hypertension[ICD10: I10] Diagnosis: jail (current) use of anticoagulants[ICD10: Z79.01] Diagnosis: Other malaise[ICD10: R53.81] Diagnosis: Vascular dementia without behavioral disturbance[ICD10: F01.50] Veronica Daigle MD, [facility] CPT-4: 08854 12/12/2017 ([id number]) 56415 EST. PATIENT, LEVEL IV Diagnosis: Paroxysmal atrial fibrillation[ICD10: I48.0] Diagnosis: Essential (primary) hypertension[ICD10: I10] Diagnosis: jail (current) use of anticoagulants[ICD10: Z79.01] Diagnosis: Low back pain[ICD10: M54.5] Veronica Daigle MD, [facility] CPT- 4: 28954 09/05/2017 ([id number]) 26004 EST. PATIENT, LEVEL IV Diagnosis: Essential (primary) hypertension[ICD10: I10] Diagnosis: Generalized anxiety disorder[ICD10: F41.1] Diagnosis: Major depressive disorder, single episode, unspecified[ICD10: F32.9] Diagnosis: Localized edema[ICD10: R60.0] Veronica Daigle MD, [facility] CPT- 4: 58213 05/09/2017 ([id number]) 22608 EST. PATIENT, LEVEL IV Diagnosis: Essential (primary) hypertension[ICD10: I10] Diagnosis: Paroxysmal atrial fibrillation[ICD10: I48.0] Diagnosis: Generalized anxiety disorder[ICD10: F41.1] Diagnosis: Localized edema[ICD10: R60.0] Veronica Daigle MD, [facility] CPT- 4: 14220 03/07/2017 ([id number]) 56165 EST. PATIENT, LEVEL IV Diagnosis: Generalized anxiety disorder[ICD10: F41.1] Diagnosis: Major depressive disorder, single episode, unspecified[ICD10: F32.9] Diagnosis: Essential (primary) hypertension[ICD10: I10] Diagnosis: Paroxysmal atrial fibrillation[ICD10: I48.0] Merle Daigle MD, [facility] CPT-4: 84209 01/24/2017 [id number] EST. PATIENT, LEVEL IV Diagnosis: Other chest pain[ICD10: R07.89] Diagnosis: Other malaise[ICD10: R53.81] Opal Daigle MD, [facility] CPT-4 : 83755 09/29/2016 ([id number]) 33962 EST. PATIENT, LEVEL IV Diagnosis: Essential (primary) hypertension[ICD10: I10] Diagnosis: Paroxysmal atrial fibrillation[ICD10: I48.0] Diagnosis: Localized edema[ICD10: R60.0] Diagnosis: Generalized anxiety disorder[ICD10: F41.1] Diagnosis: Low back pain[ICD10: M54.5] Merle Daigle MD, [facility] CPT-4: 41658 09/13/2016 ([id number]) 11995 EST. PATIENT, LEVEL III Diagnosis: Essential (primary) hypertension[ICD10: I10] Diagnosis: Paroxysmal atrial fibrillation[ICD10: I48.0] Merle Daigle MD, [facility] CPT-4: 74971 05/31/2016 ([id number]) 01836 EST. PATIENT, LEVEL III Diagnosis: Essential (primary) hypertension[ICD10: I10] Diagnosis: Localized edema[ICD10: R60.0] Merle Daigle MD, [facility] CPT-4: 20112 05/10/2016 ([id number]) 49683 EST. PATIENT, LEVEL IV Diagnosis: Paroxysmal atrial fibrillation[ICD10: I48.0] Diagnosis: Essential (primary) hypertension[ICD10: I10] Diagnosis: Generalized anxiety disorder[ICD10: F41.1] Merle Daigle MD, [facility] CPT-4: 62373 04/25/2016 ([id number]) 17376 EST. PATIENT, LEVEL IV Diagnosis: Generalized anxiety disorder[ICD10: F41.1] Diagnosis: Essential (primary) hypertension[ICD10: I10] Diagnosis: Paroxysmal atrial fibrillation[ICD10: I48.0] Diagnosis: Localized edema[ICD10: R60.0] Diagnosis: Acute recurrent maxillary sinusitis[ICD10: J01.01] Merle Daigle MD, [facility] CPT-4: 23552 01/14/2016 ([id number]) 08072 EST. PATIENT, LEVEL IV Diagnosis: Essential (primary) hypertension[ICD10: I10] Diagnosis: Generalized anxiety disorder[ICD10: F41.1] Diagnosis: Localized edema[ICD10: R60.0] Diagnosis: Encounter for immunization[ICD10: Z23] Merle Daigle MD, [facility] CPT-4: 59055 12/10/2015 ([id number]) 13450 EST. PATIENT, LEVEL III Diagnosis: Essential (primary) hypertension[ICD10: I10] Diagnosis: Localized edema[ICD10: R60.0] Merle Daigle MD, [facility] CPT-4: 41881 11/12/2015 ([id number]) 14731 EST. PATIENT, LEVEL III Diagnosis: Essential (primary) hypertension[ICD10: I10] Diagnosis: Localized edema[ICD10: R60.0] Merle Daigle MD, [facility] CPT-4: 80212 10/08/2015 ([id number]) 35066 EST. PATIENT, LEVEL III Diagnosis: Localized edema[ICD10: R60.0] Diagnosis: Essential (primary) hypertension[ICD10: I10] Merle Daigle MD, [facility] CPT-4: 25473 09/29/2015 ([id number]) 53051 EST. PATIENT, LEVEL IV Diagnosis: Localized edema[ICD10: R60.0] Diagnosis: Essential (primary) hypertension[ICD10: I10] Diagnosis: Paroxysmal atrial fibrillation[ICD10: I48.0] Merle Daigle MD, [facility] CPT-4: 77698 09/22/2015 ([id number]) 88607 EST. PATIENT, LEVEL III Diagnosis: Essential (primary) hypertension[ICD10: I10] Diagnosis: Paroxysmal atrial fibrillation[ICD10: I48.0] Merle Daigle MD, [facility] CPT-4: 29303 07/21/2015 ([id number]) 90576 EST. 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 PATIENT, LEVEL IV Diagnosis: Essential (primary) hypertension[ICD10: I10] Diagnosis: Paroxysmal atrial fibrillation[ICD10: I48.0] Diagnosis: Localized edema[ICD10: R60.0] Diagnosis: Encounter for therapeutic drug level monitoring[ICD10: Z51.81] Merle Daigle MD, [facility] CPT-4: 69402 06/02/2015 [id number]) [id number] EST. PATIENT, LEVEL IV Diagnosis: Essential (primary) hypertension[ICD10: I10] Diagnosis: Vitamin D deficiency, unspecified[ICD10: E55.9] Diagnosis: Major depressive disorder, single episode, unspecified[ICD10: F32.9] Diagnosis: Paroxysmal atrial fibrillation[ICD10: I48.0] Diagnosis: [employer] (current) use of anticoagulants[ICD10: Z79.01] Merle Daigle MD , [facility] CPT-4: 28786 03/31/2015 [id number]) 99750 EST. PATIENT, LEVEL III Diagnosis: Essential (primary) hypertension[ICD10: I10] Diagnosis: Allergic rhinitis due to pollen[ICD10: J30.1] Merle Daigle MD, [facility] CPT-4: 27053 01/30/2015 [id number] EST. PATIENT, LEVEL III Diagnosis: Localized edema[ICD10: R60.0] Diagnosis: Diarrhea, unspecified[ICD10: R19.7] Veronica Daigle MD, [facility] CPT-4: 85535 12/22/2014 [id number]) 77680 EST. PATIENT, LEVEL IV Diagnosis: DYSPHAGIA, PHARYNGEAL[ICD9: 787.23] Diagnosis: Low back pain[ICD9: 724.2] Diagnosis: Cough[ICD9: 786.2] Diagnosis: Anticoagulated on Coumadin[ICD9: V58.83] Diagnosis: MUSCLE WEAKNESS-GENERAL[ICD9: 728.87] Diagnosis: EDEMA[ICD9: 782.3] Veronica Daigle MD, [facility] CPT-4: 50939 10/29/2014 ([id number]) 41702 EST. PATIENT, LEVEL IV Diagnosis: Low back pain[ICD9: 724.2] Diagnosis: Pneumonia[ICD9: 486] Diagnosis: Cough[ICD9: 786.2] Diagnosis: Anticoagulated on Coumadin[ICD9: V58.83] Diagnosis: DYSPHAGIA, NOS[ICD9: 787.20] Diagnosis: MUSCLE WEAKNESS-GENERAL[ICD9: 728.87] Merle Daigle MD, [facility] CPT-4: 38279 10/14/2014 ([id number]) 22480 EST. PATIENT, LEVEL IV Diagnosis: ESSENTIAL HYPERTENSION[ICD9: 401.9] Diagnosis: ESOPHAGEAL REFLUX[ICD9: 530.81] Diagnosis: SLEEP RELATED LEG CRAMPS[ICD9: 327.52] Diagnosis: Atrial fibrillation[ICD9: 427.31] Diagnosis: Anticoagulated on Coumadin[ICD9: V58.83] Diagnosis: VITAMIN D DEFICIENCY[ICD9: 268.9] Merle Daigle MD, [facility] CPT-4: 71302 09/19/2014 ([id number]) 83546 EST. PATIENT, LEVEL III Diagnosis: EDEMA[ICD9: 782.3] Diagnosis: LONG-TERM USE ANTICOAGUL[ICD9: V58.61] Merle Daigle MD, [facility] CPT-4: 47516 08/22/2014 ([id number]) 26960 EST. PATIENT, LEVEL IV Diagnosis: Skin irritation[ICD9: 709.9] Diagnosis: ESSENTIAL HYPERTENSION[ICD9: 401.9] Diagnosis: Anticoagulated on Coumadin[ICD9: V58.83] Diagnosis: DEPRESSIVE DISORDER NEC[ICD9: 311] [facility] CPT-4: 75108 08/04/2014 ([id number]) 80968 EST. PATIENT, LEVEL III Diagnosis: Skin irritation[ICD9: 709.9] Veronica Daigle MD, [facility] CPT- 4: 72467 07/24/2014 ([id number]) OFFICE/OUTPATIENT VISIT NEW Diagnosis: ESSENTIAL HYPERTENSION[ICD9: 401.9] Diagnosis: COUGH[ICD9: 786.2] Diagnosis: Atrial fibrillation[ICD9: 427.31] Diagnosis: LONG-TERM USE ANTICOAGUL[ICD9: V58.61] Diagnosis: DEPRESSIVE DISORDER NEC[ICD9: 311] Veronica Daigle MD, [facility] CPT-4: 80641 07/15/2014 Plan of Care Planned Activity Notes [...] of over-medication. 03/15/2018 Appointment: Merle Esparza WPtel: [id number] (30 min) Complex 03/15/2018 Patient Education: Patient Medication Summary Completed 03/15/2018 Patient Education: Hypertension Completed 03/15/2018 Patient Education: Back Pain Completed 03/15/2018 Appointment: Veronica Daigle WPtel: [facility]5 [facility] (15 min) Moderate 02/01/2018 Appointment: Veronica Daigle WPtel: [facility] (15 min) Moderate 01/16/2018 Visit Plan: Hypertension [...] this time. 12/12/2017 Appointment: Veronica Daigle WPtel: [facility] (15 min) Moderate 12/12/2017 Patient Education: Patient [...] had her pain medication stolen by a child caregiver private home through home health - i have given pt a script for 50 pills to get her through for when she can get her next RX for her pain medication. 09/05/2017 Appointment: Veronica Daigle WPtel: [facility] (15 min) Moderate 09/05/2017 Patient Education: [...] current medications. 05/09/2017 Appointment: Veronica Daigle WPtel: [facility] (15 min) Moderate 05/09/2017 Patient Education: Patient [...] medications. 03/07/2017 Appointment: Veronica Daigle WPtel: [id number] [facility] (15 min) Moderate 03/07/2017 Patient Education: [...] becoming uncontrolled. 01/24/2017 Appointment: Merle Esparza WPtel: [facility]5 [phone] (30 min) Complex 01/24/2017 Patient Education: Patient [...] or concerns. 09/29/2016 Appointment: Opal Boyle WPtel: [facility]2 [facility] (15 min) Moderate 09/29/2016 Appointment: Opal Boyle WPtel: [facility]9 [facility] (15 min) Moderate 09/29/2016 Patient Education: Patient [...] No change in current medications. 09/13/2016 Appointment: eMrle Esparza WPtel: [facility]8 [phone] [place] (30 min) Complex 09/13/2016 [...] becoming uncontrolled. 05/31/2016 Appointment: Mer[facility] Esparza [facility]Ptel: [phone] (30 min) Complex 05/31/2016 Patient Education: Patient [...] LABS TODAY 05/10/2016 Appointment: Merle Esparza WPtel: [phone] (30 min) Complex 05/10/2016 Patient Education: Patient Medication Summary Completed 05/10/2016 Patient Education: Hypertension Completed 05/10/2016 Appointment: Merle Esparza WPtel: [phone] (15 min)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
[2018-04-19] MEDS ORDERED: NS IV 1000 ML 1,000 ML IV ONE
[2018-04-19] MEDS ORDERED: fentaNYL INJECTION 100 MCG/2 ML AMP IVP STA
--- OUTSIDE RECORDS SUMMARY | 2018-04-19 00:01 | XMS REPORT | CCD ---
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 Name Role Phone PP Unavailable CCM Unavailable Summary Purpose Interface Exchange Insurance Providers Payer name Policy type / Coverage type Covered alliance party ID Effective Begin Date Effective End Date WPS Medicare Part B Medicare Part B [id number] Unknown Family history Mother Diagnosis Age At Onset Hypertension Unknown Heart Attack Unknown Social History Social History Element Codes Description Effective Dates Marital status Unknown 07/15/2014 Marital status Unknown 07/15/2014 Number of children Unknown 0 07/15/2014 Number of children Unknown 0 07/15/2014 Employment Unknown Retired 07/15/2014 Employment Unknown Retired 07/15/[address]: 323545302 Has never smoked or chewed tobacco 07/15/[address]: 558476424 Has never smoked or chewed tobacco 07/15/[address]: 096617282 Never drinks alcohol 07/15/[address]: 470475670 Never drinks alcohol 07/15/2014 Allergies, Adverse Reactions, [...] ICD-9: 789.03 ICD-10: R10.31 Active 03/15/2018 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 ICD-9: V58.61 [...] pain ICD-9: 789.03 ICD-10: R10.31 03/15/2018 Active detention (current) use of anticoagulants ICD-9: V58.61 ICD-10: [...] hydrocodone 7.5 mg-acetaminophen 325 mg tablet RxNorm: 532018 1 Tablet(s) PO daily as needed pain 03/15/20182018 Active Flagyl 500 mg tablet RxNorm: 196074 1 Tablet(s) PO TID 201803/24/2018 Active potassium chloride ER 10 mEq tablet,extended release RxNorm: 715938 TAKE TWO TABLETS BY MOUTH THREE TIMES A DAY 02/28/2018 07/27/2018 Active hydrocodone 7.5 mg-acetaminophen 325 mg tablet RxNorm: 663973 1 Tablet(s) PO daily as needed pain 02/01/20182018 Inactive Xanax 0.25 mg tablet RxNorm: 369550 1 Tablet(s) PO TID as needed anxiety 01/01/2018 01/20/2018 Inactive hydrocodone 7.5 mg-acetaminophen 325 mg tablet RxNorm: 149919 1 Tablet(s) PO daily as needed pain 12/12/20172017 Inactive cyanocobalamin (vit B-12) 1,000 mcg/mL injection solution RxNorm: 001908 INJECT 1 ML INTRAMUSCULARLY 2 TIMES A MONTH FOR 2 MONTHS, THEN ONCE A MONTH THEREAFTER 11/28/2017 01/22/2018 Inactive hydrocodone 7.5 mg-acetaminophen 325 mg tablet RxNorm: 228158 1-2 Tablet(s) PO Q4- 6H as needed pain 11/21/2017 12/11/2017 Inactive Lasix 40 mg tablet RxNorm: 521497 TAKE ONE TABLET BY MOUTH DAILY 10/23/2017 04/20/2018 Active Lexapro 5 mg tablet RxNorm: 927701 TAKE ONE TABLET BY MOUTH EVERY EVENING 10/23/2017 12/21/2017 Inactive buspirone 10 mg tablet RxNorm: 879799 TAKE ONE TABLET BY MOUTH THREE TIMES A DAY 10/02/2017 02/28/2018 Inactive omeprazole 20 mg capsule,delayed release RxNorm: 475656 TAKE ONE CAPSULE BY MOUTH TWICE A DAY 09/13/2017 03/11/2018 Inactive Levaquin 750 mg tablet RxNorm: 047999 1 tab every other day for 5 doses 1 Tablet(s ) PO 08/29/2017 08/28/2017 Inactive Levaquin 750 mg tablet RxNorm: 307176 1 tab every other day for 5 doses 1 Tablet(s ) PO 08/29/2017 09/02/2017 Inactive hydrocodone 7.5 mg-acetaminophen 325 mg tablet RxNorm: 466939 1-2 Tablet(s) PO Q4- 6H as needed pain 08/28/2017 09/26/2017 Inactive potassium chloride ER 10 mEq tablet,extended release RxNorm: 595342 TAKE TWO TABLETS BY MOUTH THREE TIMES A DAY 08/28/2017 12/25/2017 Inactive metoprolol tartrate 25 mg tablet RxNorm: 977606 TAKE 1/2 TABLET BY MOUTH TWO TIMES A DAY 07/25/2017 07/19/2018 Active Lexapro 5 mg tablet RxNorm: 636142 TAKE ONE TABLET BY MOUTH EVERY EVENING 07/21/2017 10/18/2017 Inactive hydrocodone 7.5 mg-acetaminophen 325 mg tablet RxNorm: 208153 1-2 Tablet(s) PO Q4- 6H as needed pain 07/19/2017 08/17/2017 Inactive hydrocodone 7.5 mg-acetaminophen 325 mg tablet RxNorm: 354815 1-2 Tablet(s) PO Q4- 6H as needed pain 07/03/2017 07/18/2017 Inactive hydrocodone 7.5 mg-acetaminophen 325 mg tablet RxNorm: 269301 1-2 Tablet(s) PO Q4- 6H as needed pain 05/25/2017 06/23/2017 Inactive cyanocobalamin (vit B-12) 1,000 mcg/mL injection solution RxNorm: 548678 INJECT 1 ML INTRAMUSCULARLY 2 TIMES A MONTH FOR 2 MONTHS, THEN ONCE A MONTH THEREAFTER 05/19/2017 08/10/2017 Inactive warfarin 5 mg tablet RxNorm: 367941 TAKE ONE TABLET BY MOUTH DAILY 04/26/2017 04/20/2018 Active buspirone 10 mg tablet RxNorm: 338985 TAKE ONE TABLET BY MOUTH THREE TIMES A DAY 04/26/2017 09/22/2017 Inactive Xanax 0.25 mg tablet RxNorm: 433183 1 Tablet(s) PO TID as needed anxiety 04/17/2017 05/14/2017 Inactive Levaquin 500 mg tablet RxNorm: 808734 1 Tablet(s) PO Q72H x3 doses 04/11/2017 04/10/2017 Inactive Levaquin 500 mg tablet RxNorm: 785654 1 Tablet(s) PO Q72H x3 doses 04/11/2017 07/03/2017 Inactive potassium chloride ER 10 mEq tablet,extended release RxNorm: 591393 TAKE TWO TABLETS BY MOUTH THREE TIMES A DAY 03/27/2017 08/23/2017 Inactive Tamiflu 75 mg capsule RxNorm: 559713 1 Capsule(s) PO BID 201707/03/2017 Inactive Zofran 4 mg tablet RxNorm: 984150 1 Tablet(s) PO QID as needed nausea 03/23/2017 06/20/2017 Inactive Zofran 4 mg tablet RxNorm: 484086 1 Tablet(s) PO QID as needed nausea 03/23/2017 03/22/2017 Inactive Tamiflu 75 mg capsule RxNorm: 778106 1 Capsule(s) PO BID 201703/22/2017 Inactive lisinopril 10 mg tablet RxNorm: 250611 TAKE ONE-HALF TABLET BY MOUTH DAILY 03/10/2017 06/02/2018 Active metolazone 5 mg tablet RxNorm: 857782 1 Tablet(s) PO TIW 201703/01/2018 Inactive hydrocodone 7.5 mg-acetaminophen 325 mg tablet RxNorm: 860452 1-2 Tablet(s) PO Q4- 6H as needed pain 02/23/2017 05/24/2017 Inactive omeprazole 20 mg capsule,delayed release RxNorm: 979240 Capsule(s) TAKE ONE CAPSULE BY MOUTH TWICE A DAY 02/08/2017 Inactive metolazone 5 mg tablet RxNorm: 687278 TAKE 1 TABLET BY MOUTH TWICE WEEKLY 02/08/2017 03/06/2017 Inactive Lexapro 5 mg tablet RxNorm: 940005 1 Tablet(s) PO QPM 201603/06/2017 Inactive hydrocodone 7.5 mg-acetaminophen 325 mg tablet RxNorm: 383298 1-2 Tablet(s) PO Q4- 6H as needed pain 01/16/2017 02/22/2017 Inactive Lasix 40 mg tablet RxNorm: 890708 TAKE ONE TABLET BY MOUTH DAILY 01/11/2017 10/07/2017 Inactive metoprolol tartrate 25 mg tablet RxNorm: 576231 TAKE 1/2 TABLET BY MOUTH TWO TIMES A DAY 01/11/2017 07/09/2017 Inactive allopurinol 300 mg tablet RxNorm: 663735 TAKE ONE TABLET BY MOUTH DAILY 01/09/2017 06/07/2017 Inactive hydrocodone 7.5 mg-acetaminophen 325 mg tablet RxNorm: 438519 1-2 Tablet(s) PO Q4- 6H as needed pain 12/06/2016 01/15/2017 Inactive lisinopril 10 mg tablet RxNorm: 181125 TAKE ONE-HALF TABLET BY MOUTH DAILY 12/02/2016 03/09/2017 Inactive buspirone 10 mg tablet RxNorm: 729887 TAKE ONE TABLET BY MOUTH THREE TIMES A DAY 10/25/2016 01/22/2017 Inactive buspirone 10 mg tablet RxNorm: 699290 TAKE ONE TABLET BY MOUTH THREE TIMES A DAY 10/25/2016 10/24/2016 Inactive hydrocodone 7.5 mg-acetaminophen 325 mg tablet RxNorm: 004528 1-2 or 2 Tablet(s) PO Q4-6H as needed pain 10/25/20162016 Inactive cyanocobalamin (vit B-12) 1,000 mcg/mL injection solution RxNorm: 050863 INJECT 1 ML INTRAMUSCULARLY 2 TIMES A MONTH FOR 2 MONTHS, THEN ONCE A MONTH THEREAFTER 10/24/2016 02/12/2017 Inactive metolazone 5 mg tablet RxNorm: 000788 TAKE 1 TABLET BY MOUTH TWICE WEEKLY 09/23/2016 01/12/2017 Inactive hydrocodone 7.5 mg-acetaminophen 325 mg tablet RxNorm: 851828 1-2 or 2 Tablet(s) PO Q4-6H as needed pain 09/13/20162016 Inactive Keflex 500 mg capsule RxNorm: 580487 1 Capsule(s) PO TID 201609/15/2016 Inactive Take with a probiotic BID Keflex 500 mg capsule RxNorm: 126597 1 Capsule(s) PO TID 201609/08/2016 Inactive Take with a probiotic BID metoprolol tartrate 25 mg tablet RxNorm: 519465 TAKE 1/2 TABLET BY MOUTH TWO TIMES A DAY 09/07/2016 01/04/2017 Inactive potassium chloride ER 10 mEq tablet,extended release RxNorm: 593152 TAKE TWO TABLETS BY MOUTH THREE TIMES A DAY 09/01/2016 02/27/2017 Inactive hydrocodone 7.5 mg-acetaminophen 325 mg tablet RxNorm: 051060 1 or 2 Tablet(s) PO Q4-6H as needed pain 08/31/20162016 Inactive omeprazole 20 mg capsule,delayed release RxNorm: 503600 TAKE ONE CAPSULE BY MOUTH TWICE A DAY 08/24/2016 02/07/2017 Inactive hydrocodone 7.5 mg-acetaminophen 325 mg tablet RxNorm: 403379 1 or 2 Tablet(s) PO Q4-6H as needed pain 08/05/20162016 Inactive lisinopril 10 mg tablet RxNorm: 725311 TAKE ONE-HALF TABLET BY MOUTH DAILY 07/28/2016 12/01/2016 Inactive hydrocodone 7.5 mg-acetaminophen 325 mg tablet RxNorm: 707101 1 or 2 Tablet(s) PO Q4-6H as needed pain 07/05/20162016 Inactive allopurinol 300 mg tablet RxNorm: 610317 TAKE ONE TABLET BY MOUTH DAILY 06/16/2016 12/12/2016 Inactive metoprolol tartrate 25 mg tablet RxNorm: 732053 TAKE 1/2 TABLET BY MOUTH TWO TIMES A DAY 06/16/2016 08/14/2016 Inactive buspirone 10 mg tablet RxNorm: 436559 TAKE ONE TABLET BY MOUTH THREE TIMES A DAY 06/15/2016 10/12/2016 Inactive hydrocodone 7.5 mg-acetaminophen 325 mg tablet RxNorm: 575878 1 or 2 Tablet(s) PO Q4-6H as needed pain 06/07/20162016 Inactive metoprolol tartrate 25 mg tablet RxNorm: 769181 1/2 Tablet(s) PO QPM 05/10/2016 06/08/2016 Inactive lisinopril 10 mg tablet RxNorm: 485720 1/2 Tablet(s) PO daily 04/26/2016 07/27/2016 Inactive hydrocodone 7.5 mg-acetaminophen 325 mg tablet RxNorm: 131310 1 or 2 Tablet(s) PO Q4-6H as needed pain 04/25/20162016 Inactive lisinopril 10 mg tablet RxNorm: 398244 1/2 Tablet(s) PO daily 04/25/2016 04/25/2016 Inactive metoprolol tartrate 25 mg tablet RxNorm: 155152 1/2 Tablet(s) PO BID 04/25/2016 05/09/2016 Inactive allopurinol 300 mg tablet RxNorm: 460799 TAKE ONE TABLET BY MOUTH DAILY 04/19/2016 06/15/2016 Inactive metolazone 5 mg tablet RxNorm: 705510 TAKE 1 TABLET BY MOUTH TWICE WEEKLY 04/19/2016 09/05/2016 Inactive potassium chloride ER 10 mEq tablet,extended release RxNorm: 274546 2 Tablet(s) PO TID 03/21/2016 08/17/2016 Inactive warfarin 5 mg tablet RxNorm: 808849 1 Tablet(s) PO daily TAKE ONE TABLET BY MOUTH DAILY 03/21/2016 03/15/[address] Echevarria manages potassium chloride ER 10 mEq tablet,extended release(part/ cryst) RxNorm: 7283547 2 Tablet(s) PO TID 03/11/2016 03/20/2016 Inactive Xanax 0.25 mg tablet RxNorm: 240610 1 Tablet(s) PO TID as needed anxiety 03/10/2016 04/06/2016 Inactive Xanax 0.25 mg tablet RxNorm: 114460 1 Tablet(s) PO TID as needed anxiety 03/10/2016 12/31/2017 Inactive hydrocodone 7.5 mg-acetaminophen 325 mg tablet RxNorm: 057280 1 or 2 Tablet(s) PO Q4-6H as needed pain 02/26/20162016 Inactive Flonase Allergy Relief 50 mcg/actuation nasal spray, suspension RxNorm: 2358068 1 [place] NASAL each nare daily 01/19/2016 03/18/2016 Inactive cefdinir 300 mg capsule RxNorm: 046168 1 Capsule(s) PO BID 01/23/2016 Inactive take probiotic BID x 7 days Flonase Allergy Relief 50 mcg/actuation nasal spray, suspension RxNorm: 3426851 1 [place] NASAL each nare daily 01/19/2016 01/18/2016 Inactive allopurinol 300 mg tablet RxNorm: 376872 TAKE ONE TABLET BY MOUTH DAILY 01/18/2016 04/16/2016 Inactive Lasix 40 mg tablet RxNorm: 892708 1 Tablet(s) PO daily 201501/07/2017 Inactive (this was only twice daily x1 week) now it's daily cefdinir 300 mg capsule RxNorm: 352115 1 Capsule(s) PO BID 01/17/2016 Inactive take probiotic BID x 7 days cefdinir 300 mg capsule RxNorm: 045645 1 Capsule(s) PO BID 01/10/2016 Inactive buspirone 10 mg tablet RxNorm: 856850 TAKE ONE TABLET BY MOUTH THREE TIMES A DAY 01/11/2016 06/08/2016 Inactive hydrocodone 7.5 mg-acetaminophen 325 mg tablet RxNorm: 140676 1 or 2 Tablet(s) PO Q4-6H as needed pain 12/28/20152015 Inactive potassium chloride ER 10 mEq tablet,extended release(part/ cryst) RxNorm: 8059807 2 po TID x 2 days then 2 po BID Tablet(s) 12/28/2015 03/10/2016 Inactive potassium chloride ER 10 mEq tablet,extended release(part/ cryst) RxNorm: 4489821 TAKE ONE TABLET BY MOUTH TWICE A DAY FOR 1 WEEK THEN RETURN TO DAILY 12/28/2015 12/27/2015 Inactive meclizine 25 mg tablet RxNorm: 734043 1 Tablet(s) PO BID PRN No Stop Date Active potassium chloride ER 10 mEq tablet,extended release(part/ cryst) RxNorm: 3029421 1 Tablet(s) PO TID 12/08/2015 03/10/2016 Inactive potassium chloride ER 10 mEq tablet,extended release(part/ cryst) RxNorm: 4141615 2 Tablet(s) PO daily 11/26/20152015 Inactive cyanocobalamin (vit B-12) 1,000 mcg/mL injection solution RxNorm: 478518 INJECT 1 ML INTRAMUSCULARLY 2 TIMES A MONTH FOR 2 MONTHS, THEN ONCE A MONTH THEREAFTER 11/26/2015 04/23/2016 Inactive potassium chloride ER 10 mEq tablet,extended release(part/ cryst) RxNorm: 8886305 3 Tablet(s) PO daily 11/23/20152015 Inactive Lasix 40 mg tablet RxNorm: 965048 1 Tablet(s) PO daily 201501/13/2016 Inactive (this was only twice daily x1 week) now it's daily metolazone 5 mg tablet RxNorm: 388881 1 Tablet(s) BIW TAKE ONE TABLET BY MOUTH DAILY 11/12/2015 04/18/2016 Inactive hydrocodone 7.5 mg-acetaminophen 325 mg tablet RxNorm: 558421 1 or 2 Tablet(s) PO Q4-6H as needed pain 11/12/20152015 Inactive Lasix 40 mg tablet RxNorm: 296935 1 Tablet(s) PO daily 201511/11/2015 Inactive (this was only twice daily x1 week) now it's daily metolazone 5 mg tablet RxNorm: 453980 Tablet(s) TAKE ONE TABLET BY MOUTH DAILY 10/22/2015 10/29/2015 Inactive potassium chloride ER 10 mEq tablet,extended release(part/ cryst) RxNorm: 3495094 1 Tablet(s) PO daily 10/08/20152015 Inactive twice daily x 1 week then return to daily Lasix 40 mg tablet RxNorm: 479362 1 Tablet(s) PO daily 201511/09/2015 Inactive twice daily x 1 week then daily thereafter Keflex 500 mg capsule RxNorm: 721695 1 Capsule(s) PO TID 201510/02/2015 Inactive Keflex 500 mg capsule RxNorm: 630867 1 Capsule(s) PO TID 201509/22/2015 Inactive hydrocodone 7.5 mg-acetaminophen 325 mg tablet RxNorm: 814203 1 or 2 Tablet(s) PO Q4-6H as needed pain 09/22/20152015 Inactive potassium chloride ER 10 mEq tablet,extended release(part/ cryst) RxNorm: 0904602 1 Tablet(s) PO BID 09/22/2015 10/07/2015 Inactive twice daily x 1 week then return to daily Lasix 40 mg tablet RxNorm: 832983 1 Tablet(s) PO BID 201510/07/2015 Inactive twice daily x 1 week then daily thereafter allopurinol 300 mg tablet RxNorm: 121011 1 Tablet(s) PO daily 09/09/2015 01/06/2016 Inactive diltiazem 90 mg tablet RxNorm: 120381 Tablet(s) TAKE ONE TABLET BY MOUTH THREE TIMES A DAY 09/02/2015 01/28/2016 Inactive diltiazem 90 mg tablet RxNorm: 607778 TAKE ONE TABLET BY MOUTH THREE TIMES A DAY 08/31/2015 01/28/2016 Inactive diltiazem 90 mg tablet RxNorm: 601644 TAKE ONE TABLET BY MOUTH THREE TIMES A DAY 08/31/2015 09/01/2015 Inactive Xanax 0.25 mg tablet RxNorm: 247290 1 Tablet(s) PO TID as needed anxiety 08/28/2015 09/26/2015 Inactive Xanax 0.25 mg tablet RxNorm: 362075 1 Tablet(s) PO TID as needed anxiety 08/28/2015 08/27/2015 Inactive potassium chloride ER 10 mEq tablet,extended release(part/ cryst) RxNorm: 956539 TAKE ONE TABLET BY MOUTH DAILY 08/27/2015 2015 Inactive omeprazole 20 mg capsule,delayed release RxNorm: 101091 TAKE ONE CAPSULE BY MOUTH TWICE A DAY 08/16/2015 02/11/2016 Inactive omeprazole 20 mg capsule,delayed release RxNorm: 842731 TAKE ONE CAPSULE BY MOUTH TWICE A DAY 08/16/2015 08/15/2015 Inactive hydrocodone 7.5 mg-acetaminophen 325 mg tablet RxNorm: 544245 1 or 2 Tablet(s) PO Q4-6H as needed pain 08/11/20152015 Inactive omeprazole 20 mg capsule,delayed release RxNorm: 535483 Capsule(s) TAKE ONE CAPSULE BY MOUTH TWICE A DAY 08/03/2015 Inactive omeprazole 20 mg capsule,delayed release RxNorm: 724747 Capsule(s) TAKE ONE CAPSULE BY MOUTH TWICE A DAY 07/31/2015 Inactive buspirone 10 mg tablet RxNorm: 027199 TAKE ONE TABLET BY MOUTH THREE TIMES A DAY 07/13/2015 01/08/2016 Inactive metolazone 5 mg tablet RxNorm: 779852 TAKE ONE TABLET BY MOUTH DAILY 07/02/2015 07/09/2015 Inactive metolazone 5 mg tablet RxNorm: 573909 1 Tablet(s) PO daily 06/18/2015 Inactive metolazone 5 mg tablet RxNorm: 839948 1 Tablet(s) PO daily 06/14/2015 Inactive hydrocodone 7.5 mg-acetaminophen 325 mg tablet RxNorm: 039855 1or2 1 or 2 Tablet(s ) PO Q4-6H as needed pain 06/12/201507/10 Inactive warfarin 1 mg tablet RxNorm: 997259 1 Tablet(s) 04/15/2015 06/22/2015 Inactive take with 3mg to make 4mg on Mon and repeat in 1 week. hydrocodone 7.5 mg-acetaminophen 325 mg tablet RxNorm: 591272 1or2 or 2 Tablet(s) PO Q4-6H as needed pain 03/31/20152015 Inactive hydrocodone 7.5 mg-acetaminophen 325 mg tablet RxNorm: 774874 1or2 or 2 Tablet(s) PO Q4-6H as needed pain 03/25/20152015 Inactive warfarin 5 mg tablet RxNorm: 219591 1 Tablet(s) PO daily TAKE ONE TABLET BY MOUTH DAILY 03/05/2015 06/22/2015 Inactive Xarelto 20 mg tablet RxNorm: 2522081 1 Tablet(s) PO QPM 201503/04/2015 Inactive losartan 100 mg tablet RxNorm: 993581 1 Tablet(s) PO daily 05/201406/22/2015 Inactive [SAVINGS FOR NON-COVERED DRUGS -- BIN:[id number], PCN: ASPROD1, Group: XXXXX, ID# [id number], Questions: . THIS IS NOT INSURANCE.] Kenalog 40 mg/mL suspension for injection RxNorm: 4156842 1 Milliliter(s) Inj 01/30/2015 01/30/2015 Inactive hydrocodone 7.5 mg-acetaminophen 325 mg tablet RxNorm: 785530 1or2 or 2 Tablet(s) PO Q4-6H as needed pain 01/15/20152014 Inactive Lasix 40 mg tablet RxNorm: 163047 1 Tablet(s) PO daily 201409/21/2015 Inactive as needed for swelling-take potassium when you take lasix potassium chloride ER 10 mEq tablet,extended release(part/ cryst) RxNorm: 344721 2 Tablet(s) PO daily 01/06/2015 01/19/2015 Inactive Lasix 40 mg tablet RxNorm: 236254 1 Tablet(s) PO daily 201401/06/2015 Inactive Ok to fill 20mg, not 40mg as needed for swelling-take potassium when you take lasix potassium chloride ER 10 mEq tablet,extended release(part/ cryst) RxNorm: 359892 1 Tablet(s) PO BID 12/30/2014 01/05/2015 Inactive Vitamin D2 50,000 unit capsule RxNorm: 785271 TAKE 1 CAPSULE BY MOUTH ONCE WEEKLY FOR 12 WEEKS 12/30/2014 03/23/2015 Inactive potassium chloride ER 10 mEq tablet,extended release(part/ cryst) RxNorm: 260078 1 Tablet(s) PO daily 12/26/2014 12/29/2014 Inactive potassium chloride ER 10 mEq tablet,extended release(part/ cryst) RxNorm: 307663 1 Tablet(s) PO daily 12/26/2014 12/25/2014 Inactive omeprazole 20 mg capsule,delayed release RxNorm: 679451 TAKE ONE CAPSULE BY MOUTH TWICE A DAY 12/24/2014 07/21/2015 Inactive Flagyl 500 mg tablet RxNorm: 411505 1 Tablet(s) PO TID 201412/20/2014 Inactive Flagyl 500 mg tablet RxNorm: 539606 1 Tablet(s) PO TID 201412/10/2014 Inactive warfarin 3 mg tablet RxNorm: 279374 TAKE ONE TABLET BY MOUTH DAILY 11/13/2014 01/29/2015 Inactive warfarin 3 mg tablet RxNorm: 451848 TAKE ONE TABLET BY MOUTH DAILY 11/13/2014 01/29/2015 Inactive warfarin 3 mg tablet RxNorm: 994424 TAKE ONE TABLET BY MOUTH DAILY 11/13/2014 03/04/2015 Inactive warfarin 3 mg tablet RxNorm: 125745 1 Tablet(s) PO daily 201403/04/2015 Inactive allopurinol 300 mg tablet RxNorm: 899733 1 Tablet(s) PO daily 11/11/2014 03/10/2015 Inactive hydrocodone 7.5 mg-acetaminophen 325 mg tablet RxNorm: 347819 1or2 or 2 Tablet(s) PO Q4-6H as needed pain 11/10/20142014 Inactive hydrocodone 7.5 mg-acetaminophen 325 mg tablet RxNorm: 083851 1or2 or 2 Tablet(s) PO Q4-6H as needed pain 10/15/20142014 Inactive hydrocodone 7.5 mg-acetaminophen 325 mg tablet RxNorm: 460677 1or2 or 2 Tablet(s) PO Q4-6H as needed pain 10/15/20142014 Inactive Kenalog 40 mg/mL suspension for injection RxNorm: 0053223 Milliliter(s) Inj 10/14/2014 10/14/2014 Inactive ceftriaxone 500 mg solution for injection RxNorm: 2425328 Inj 10/14/2014 10/14/2014 Inactive Zithromax Z-Chito 250 mg tablet RxNorm: 047471 1 Tablet(s) PO UD 10/14/2014 01/29/2015 Inactive zpack cefdinir 300 mg capsule RxNorm: 325432 1 Capsule(s) PO BID 10/20/2014 Inactive Vitamin D2 50,000 unit capsule RxNorm: 036083 1 Capsule(s) PO weekly x 12 weeks 09/24/2014 09/23/2014 Inactive Vitamin D2 50,000 unit capsule RxNorm: 017519 1 Capsule(s) PO weekly x 12 weeks 09/24/2014 12/22/2014 Inactive warfarin 1 mg tablet RxNorm: 176217 TAKE 1/2 TABLET BY MOUTH DAILY WITH 3MG TABLET TO EQUAL 3.5MG DAILY 09/22/201404/2014 Inactive warfarin 1 mg tablet RxNorm: 248714 1/2 Tablet(s) PO daily 3.5mg 08/26/2014 2014 Inactive taking with a 3mg to make 3.5mg tablets Lasix 20 mg tablet RxNorm: 176783 1 Tablet(s) PO QDAY PRN 09/24/2014 Inactive Ok to fill 20mg, not 40mg as needed for swelling-take potassium when you take lasix buspirone 10 mg tablet RxNorm: 175653 1 Tablet(s) PO TID 201411/25/2014 Inactive takes it BID but if she feels anxious she takes one during the day Lasix 20 mg tablet RxNorm: 891506 1 Tablet(s) PO QDAY PRN 08/25/2014 Inactive as needed for swelling-take potassium when you take lasix warfarin 1 mg tablet RxNorm: 770205 1/2 Tablet(s) PO daily 3.5mg 08/15/2014 08/21/2014 Inactive taking with a 3mg to make 3.5mg tablets warfarin 3 mg tablet RxNorm: 799342 1 Tablet(s) PO daily 201410/11/2014 Inactive diltiazem 90 mg tablet RxNorm: 811451 1 Tablet(s) PO TID 201408/30/2015 Inactive warfarin 1 mg tablet RxNorm: 191478 1/2 Tablet(s) PO daily 3.5mg 08/05/2014 08/11/2014 Inactive taking with a 3mg to make 3.5mg tablets cyclobenzaprine 10 mg tablet RxNorm: 978163 1 Tablet(s) PO QHS 08/04/2014 11/01/2014 Inactive buspirone 10 mg tablet RxNorm: 169723 1 Tablet(s) PO QID 201408/21/2014 Inactive allopurinol 300 mg tablet RxNorm: 032074 1 Tablet(s) PO daily 08/04/2014 11/01/2014 Inactive clonazepam 0.5 mg tablet RxNorm: 840505 1 Tablet(s) PO daily 09/02/2014 Inactive omeprazole 20 mg capsule,delayed release RxNorm: 478833 1 Capsule(s) PO BID 08/04/2014 11/01/2014 Inactive atenolol 25 mg tablet RxNorm: 104638 1 Tablet(s) PO daily 201411/01/2014 Inactive warfarin 3 mg tablet RxNorm: 086197 1 Tablet(s) PO daily 201408/04/2014 Inactive diphenhydramine 2 % topical cream RxNorm: 6680431 1 Application TOP Q6 PRN 07/24/2014 01/29/2015 Inactive diltiazem 90 mg tablet RxNorm: 617959 1 Tablet(s) PO BID 201408/04/2014 Inactive cyclobenzaprine 10 mg tablet RxNorm: 171395 1 Tablet(s) PO QH 07/24/2014 08/03/2014 Inactive warfarin 2.5 mg tablet RxNorm: 888942 1 Tablet(s) PO daily 08/22/2014 Inactive [SAVINGS FOR NON-COVERED DRUGS -- BIN:[id number], PCN: ASPROD1, Group: XXXXX, ID# [id number], Questions: . THIS IS NOT INSURANCE.] losartan 25 mg tablet RxNorm: 943007 1 Tablet(s) PO daily 201401/29/2015 Inactive [SAVINGS FOR NON-COVERED DRUGS -- BIN:594110, PCN: ASPROD1, Group: XXXXX, ID # [id number], Questions: . THIS IS NOT INSURANCE.] isosorbide mononitrate oral RxNorm: 6057 oral No Start Date Active diltiazem ER 360 mg tablet,extended release 24 hr RxNorm: 604375 1 Tablet(s) PO daily No Start Date Active benazepril 10 mg tablet RxNorm: 703295 1 Tablet(s) PO daily No Start Date 07/14/2014 Inactive lisinopril 10 mg tablet RxNorm: 164284 1 Tablet(s) PO daily No Start Date 04/24/2016 Inactive clonazepam 0.5 mg tablet RxNorm: 524302 1 Tablet(s) PO daily No Start Date 08/03/2014 Inactive diltiazem 90 mg tablet RxNorm: 245976 1 Tablet(s) PO daily No Start Date 07/23/2014 Inactive atenolol 25 mg tablet RxNorm: 286760 1 Tablet(s) PO daily No Start Date 08/03/2014 Inactive buspirone 10 mg tablet RxNorm: 710059 1 Tablet(s) PO QID No Start Date 08/03/2014 Inactive omeprazole 20 mg capsule,delayed release RxNorm: 635779 1 Capsule(s) PO BID No Start Date 08/03/2014 Inactive allopurinol 300 mg tablet RxNorm: 291815 1 Tablet(s) PO daily No Start Date 08/03/2014 Inactive Xarelto 20 mg tablet RxNorm: 7641770 1 Tablet(s) PO daily No Start Date 03/03/2015 Inactive warfarin 2 mg tablet RxNorm: 658611 1 Tablet(s) PO daily No Start Date 07/16/2014 Inactive cyanocobalamin (vit B-12) 1,000 mcg/mL injection solution RxNorm: 561929 1 Milliliter(s) Inj monthly No Start Date Inactive cyclobenzaprine 10 mg tablet RxNorm: 396823 1 Tablet(s) PO BID No Start Date 07/23/2014 Inactive Eliquis 2.5 mg tablet RxNorm: 6550620 1 Tablet(s) PO daily No Start Date 03/03/2015 Inactive Medication Administered Medication Codes Instructions Start Date Status Kenalog 40 mg/mL suspension for injection RxNorm: 5512877 1Milliliter 01/30/2015 No longer Active Kenalog 40 mg/mL suspension for injection RxNorm: 0224003 Milliliter 10/14/2014 No longer Active ceftriaxone 500 mg solution for injection RxNorm: 5430128 10/14/2014 No longer Active Immunizations Vaccine Codes [...] behavioral disturbance ICD-10: F01.50 ICD-9: 290.40 12/12/2017 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 ICD-9: [...] Metabolic Ord15 CALCIUM 9.0 mg/dL 02/21/2018 Pt Ptp5509 PT 23.4 seconds 02/21/2018 Pt Vxw9580 INR 2.1 02/21/2018 Pt Dij8352 Low Intensity - 1.5-2.0 02/21/2018 Pt Lic9273 Mod intensity - 2.0-3.0 02/21/2018 Pt Uzm8970 Hi intensity - 3.0-4.0 02/21/2018 Pt Xuv0954 PT 27.0 seconds 01/15/2018 Pt Pgu3627 INR 2.5 01/15/2018 Pt Imj3135 Low Intensity - 1.5-2.0 01/15/2018 Pt Rrc6021 Mod intensity - 2.0-3.0 01/15/2018 Pt Grh6641 Hi intensity - 3.0-4.0 01/15/2018 Metabolic Ord15 [...] Metabolic Ord15 CALCIUM 9.2 mg/dL 01/15/2018 Pt Iea1694 PT 29.3 seconds 12/18/2017 Pt Qkq1667 INR 2.8 12/18/2017 Pt Ddn3326 Low Intensity - 1.5-2.0 12/18/2017 Pt Mzm0647 Mod intensity - 2.0-3.0 12/18/2017 Pt Oqy4894 Hi intensity - 3.0-4.0 12/18/2017 Metabolic Ord15 [...] Ord15 CALCIUM 9.7 mg/dL 12/18/2017 Comp Metabolic Qie176 NA 138 mEq/L 09/29/2015 Comp Metabolic Lpo407 K 4.6 mEq/L 09/29/2015 Comp Metabolic Eyf273 CL 102 mEq/L 09/29/2015 Comp Metabolic Zwx100 CO2 28.0 mEq/L 09/29/2015 Comp Metabolic Row801 ANION GAP 13 09/29/2015 Comp Metabolic Awu182 GLUCOSE 83 mg/dL 09/29/2015 Comp Metabolic Zgp071 Creat 1.1 mg/dL 09/29/2015 Comp Metabolic Orv752 eGFR 52 ml/min/1.73m2 09/29/2015 Comp Metabolic Lgq696 BUN 18 mg/dL 09/29/2015 Comp Metabolic Bqn548 B/C Ratio 16.7 Ratio 09/29/2015 Comp Metabolic Qzn191 CALCIUM 9.6 mg/dL 09/29/2015 Comp Metabolic Wsa870 ALK PHOS 188 U/L 09/29/2015 Comp Metabolic Hzn023 AST(SGOT) 19 U/L 09/29/2015 Comp Metabolic Rdc068 ALT(SGPT) 12 U/L 09/29/2015 Comp Metabolic Mng376 BILI T 0.6 mg/dL 09/29/2015 Comp Metabolic Caq212 ALBUMIN 4.0 g/dL 09/29/2015 Comp Metabolic Eqv070 TPRO 6.6 g/dL 09/29/2015 Comp Metabolic Fxx151 GLOB 2.6 g/dL 09/29/2015 Comp Metabolic Ycq450 A/G Ratio 1.5 Ratio 09/29/2015 Comp Metabolic Wtg530 Osmo 277 mOsmo 09/29/2015 Cbc With Differential [...] 84.1 fl 09/29/2015 Cbc With Differential Ord2 [place]% 18.3 % 09/29/2015 Cbc With Differential Ord2 [...] 1.41 K/ul 09/29/2015 Cbc With Differential Ord2 [place] ABS# 1.8 K/ul 09/29/2015 Cbc With Differential Ord2 Eos ABS# 0.2 K/ul 09/29/2015 Cbc With Differential Ord2 Baso ABS# 0.1 K/ul 09/29/2015 Comp Metabolic Sji796 NA 134 mEq/L 09/22/2015 Comp Metabolic Ozq849 K 4.7 mEq/L 09/22/2015 Comp Metabolic Pbs276 CL 98 mEq/L 09/22/2015 Comp Metabolic Kge819 CO2 26.0 mEq/L 09/22/2015 Comp Metabolic Btd993 ANION GAP 15 09/22/2015 Comp Metabolic Yst705 GLUCOSE 83 mg/dL 09/22/2015 Comp Metabolic Gmv405 Creat 1.1 mg/dL 09/22/2015 Comp Metabolic Bnu344 eGFR 52 ml/min/1.73m2 09/22/2015 Comp Metabolic Fik286 BUN 19 mg/dL 09/22/2015 Comp Metabolic Jjb551 B/C Ratio 17.8 Ratio 09/22/2015 Comp Metabolic Tgu009 CALCIUM 9.4 mg/dL 09/22/2015 Comp Metabolic Mkg755 ALK PHOS 182 U/L 09/22/2015 Comp Metabolic Isp140 AST(SGOT) 30 U/L 09/22/2015 Comp Metabolic Ogc251 ALT(SGPT) 16 U/L 09/22/2015 Comp Metabolic Ils870 BILI T 0.8 mg/dL 09/22/2015 Comp Metabolic Kan202 ALBUMIN 3.9 g/dL 09/22/2015 Comp Metabolic Efr603 TPRO 6.8 g/dL 09/22/2015 Comp Metabolic Ybm208 GLOB 2.9 g/dL 09/22/2015 Comp Metabolic Ajm628 A/G Ratio 1.3 Ratio 09/22/2015 Comp Metabolic Bdy340 Osmo 270 mOsmo 09/22/2015 Cbc With Differential [...] 16.8 % 09/22/2015 Cbc With Differential Ord2 [place]% 15.4 % 09/22/2015 Cbc With Differential Ord2 [...] 1.81 K/ul 09/22/2015 Cbc With Differential Ord2 [place] ABS# 1.7 K/ul 09/22/2015 Cbc With Differential [...] 27.8 pg 06/02/2015 Cbc With Differential Ord2 [place]% 16.6 % 06/02/2015 Cbc With Differential Ord2 [...] 1.74 K/ul 06/02/2015 Cbc With Differential Ord2 [place] ABS# 1.8 K/ul 06/02/2015 Cbc With Differential Ord2 Eos ABS# 0.1 K/ul 06/02/2015 Cbc With Differential Ord2 Baso ABS# 0.0 K/ul 06/02/2015 Cbc With Differential Ord2 New Analyzer Notice Please note new ref ranges starting 03-11-2015 due to implemntation of new five part differential hematolgy analyzer. 06/02/2015 Pt Iuj3564 PT 21.8 seconds 06/02/2015 Pt Xce3829 INR 2.0 06/02/2015 Pt Fbu3932 Low Intensity - 1.5-2.0 06/02/2015 Pt Wdw2255 Mod intensity - 2.0-3.0 06/02/2015 Pt Dha6020 Hi intensity - 3.0-4.0 06/02/2015 Comp Metabolic Kyj810 NA 132 mEq/L 06/02/2015 Comp Metabolic Ium044 K 4.4 mEq/L 06/02/2015 Comp Metabolic Ldx935 CL 94 mEq/L 06/02/2015 Comp Metabolic Ats915 CO2 26.0 mEq/L 06/02/2015 Comp Metabolic Hoo303 ANION GAP 16 06/02/2015 Comp Metabolic Faf076 GLUCOSE 97 mg/dL 06/02/2015 Comp Metabolic Wyj339 Creat 1.2 mg/dL 06/02/2015 Comp Metabolic Qgq902 eGFR 46 ml/min/1.73m2 06/02/2015 Comp Metabolic Tls907 BUN 19 mg/dL 06/02/2015 Comp Metabolic Jsh424 B/C Ratio 15.8 Ratio 06/02/2015 Comp Metabolic Amm307 CALCIUM 9.4 mg/dL 06/02/2015 Comp Metabolic Enj102 ALK PHOS 178 U/L 06/02/2015 Comp Metabolic Cvz838 AST(SGOT) 32 U/L 06/02/2015 Comp Metabolic Ttv362 ALT(SGPT) 31 U/L 06/02/2015 Comp Metabolic Zbf912 BILI T 0.6 mg/dL 06/02/2015 Comp Metabolic Stz320 ALBUMIN 4.0 g/dL 06/02/2015 Comp Metabolic Tkm585 TPRO 6.5 g/dL 06/02/2015 Comp Metabolic Hgy427 GLOB 2.5 g/dL 06/02/2015 Comp Metabolic Yum809 A/G Ratio 1.6 Ratio 06/02/2015 Comp Metabolic Ycs799 Osmo 267 mOsmo 06/02/2015 B12 Zvo824 B12 160.00 pg/ml 04/01/2015 Iron Ord72 Iron 39 ug/dl 04/01/2015 Vitamin D 25 Oh Avx0178 VITAMIN D, 25 HYDROXY 61.20 ng/mL Tsh Ord6 hTSH II 1.87 uIU/mL 03/31/2015 Pt Yal4380 PT 36.9 seconds 03/31/2015 Pt Nqk4652 INR 3.9 03/31/2015 Pt Rop0993 Low Intensity - 1.5-2.0 03/31/2015 Pt Wlb8790 Mod intensity - 2.0-3.0 03/31/2015 Pt Aoo9312 Hi intensity - 3.0-4.0 03/31/2015 Comp Metabolic Cpm983 NA 131 mEq/L 03/31/2015 Comp Metabolic Jvg318 K 5.3 mEq/L 03/31/2015 Comp Metabolic Gzt478 CL 97 mEq/L 03/31/2015 Comp Metabolic Srp738 CO2 24.0 mEq/L 03/31/2015 Comp Metabolic Kvm509 ANION GAP 15 03/31/2015 Comp Metabolic Nza634 GLUCOSE 84 mg/dL 03/31/2015 Comp Metabolic Cix441 Creat 1.3 mg/dL 03/31/2015 Comp Metabolic Fxl963 eGFR 42 ml/min/1.73m2 03/31/2015 Comp Metabolic Plc670 BUN 26 mg/dL 03/31/2015 Comp Metabolic Kfp443 B/C Ratio 20.2 Ratio 03/31/2015 Comp Metabolic Jzz171 CALCIUM 9.4 mg/dL 03/31/2015 Comp Metabolic Qnl209 ALK PHOS 172 U/L 03/31/2015 Comp Metabolic Kdv791 AST(SGOT) 21 U/L 03/31/2015 Comp Metabolic Amw237 ALT(SGPT) 27 U/L 03/31/2015 Comp Metabolic Kbh924 BILI T 0.5 mg/dL 03/31/2015 Comp Metabolic Qau204 ALBUMIN 4.0 g/dL 03/31/2015 Comp Metabolic Hft236 TPRO 6.8 g/dL 03/31/2015 Comp Metabolic Geu271 GLOB 2.8 g/dL 03/31/2015 Comp Metabolic Avy728 A/G Ratio 1.4 Ratio 03/31/2015 Comp Metabolic Rrl325 Osmo 267 mOsmo 03/31/2015 Cbc With Differential [...] 88.9 fl 03/31/2015 Cbc With Differential Ord2 [place]% 14.0 % 03/31/2015 Cbc With Differential Ord2 [...] 1.62 K/ul 03/31/2015 Cbc With Differential Ord2 [place] ABS# 1.6 K/ul 03/31/2015 Cbc With Differential [...] Magnesium Ord90 Mag 2.0 mg/dL 09/19/2014 Pt Aoi2564 PT 29.1 seconds 09/19/2014 Pt Jtf4984 INR 2.9 09/19/2014 Pt Rbl8005 Low Intensity - 1.5-2.0 09/19/2014 Pt Tyz8142 Mod intensity - 2.0-3.0 09/19/2014 Pt Qit4871 Hi intensity - 3.0-4.0 09/19/2014 Tsh Ord6 hTSH II 1.40 uIU/mL 09/19/2014 Lipid Ord30 CHOL 216 mg/dL 09/19/2014 Lipid Ord30 HDL 78.0 mg/dl 09/19/2014 Lipid Ord30 TRIG 85 mg/dL 09/19/2014 Lipid Ord30 LDL 121 mg/dL 09/19/2014 Lipid Ord30 C/HDL 2.8 Ratio 09/19/2014 Vitamin D 25 Oh Nmx2341 VITAMIN D, 25 HYDROXY 14.13 ng/mL Comp Metabolic Mty822 NA 134 mEq/L 09/19/2014 Comp Metabolic Obr541 K 4.7 mEq/L 09/19/2014 Comp Metabolic Ool115 CL 98 mEq/L 09/19/2014 Comp Metabolic Klp966 CO2 27.0 mEq/L 09/19/2014 Comp Metabolic Qyu731 ANION GAP 14 09/19/2014 Comp Metabolic Sdh629 GLUCOSE 94 mg/dL 09/19/2014 Comp Metabolic Xxu385 Creat 1.1 mg/dL 09/19/2014 Comp Metabolic Kiy726 eGFR 49 ml/min/1.73m2 09/19/2014 Comp Metabolic Tzp188 BUN 14 mg/dL 09/19/2014 Comp Metabolic Eyy099 B/C Ratio 12.3 Ratio 09/19/2014 Comp Metabolic Glq273 CALCIUM 9.7 mg/dL 09/19/2014 Comp Metabolic Rrv943 ALK PHOS 150 U/L 09/19/2014 Comp Metabolic Jeu701 AST(SGOT) 16 U/L 09/19/2014 Comp Metabolic Lpd348 ALT(SGPT) 9 U/L 09/19/2014 Comp Metabolic Qay799 BILI T 0.8 mg/dL 09/19/2014 Comp Metabolic Wtf536 ALBUMIN 3.9 g/dL 09/19/2014 Comp Metabolic Bai979 TPRO 6.8 g/dL 09/19/2014 Comp Metabolic Huc755 GLOB 2.9 g/dL 09/19/2014 Comp Metabolic Vya415 A/G Ratio 1.3 Ratio 09/19/2014 Comp Metabolic Gno410 Osmo 268 mOsmo 09/19/2014 Cbc With Differential [...] Model/CDA Sections, Assigned to/Indira Ibanez SNKIESHA CT: [id number] CPT-4: 24548Yphjjyb 12/10/2015 TRIAMCINOLONE ACET INJ NOS CPT-4: J3301 01/30/2015 URINALYSIS NONAUTO W/O SCOPE CPT-4: 91374 11/07/2014 ROCEPHIN, PER 250 MG CPT-4: J0696 10/14/2014 TRIAMCINOLONE ACET INJ NOS CPT-4: J3301 10/14/2014 Vital Signs Date Vital 03/15/2018 Blood Pressure 1: 146/60 Code : 8480-6 BMI: 25.2 Code : 22722-1 Heart Rate 1 : 79 bpm Height: 5'2" SpO2: 98% Weight: 138 lbs 12/12/2017 Blood Pressure 1: 130/60 Code : 8480-6 BMI: 25.2 Code : 31749-9 Heart Rate 1 : 60 bpm Height: 5'2" SpO2: 98% Weight: 138 lbs 09/05/2017 Blood Pressure 1: 108/46 Code : 8480-6 BMI: 24.0 Code : 77153-1 Heart Rate 1 : 70 bpm Height: 5'2" SpO2: 96% Weight: 131 lbs 05/09/2017 Blood Pressure 1: 122/82 Code : 8480-6 BMI: 25.2 Code : 27188-8 Heart Rate 1 : 72 bpm Height: 5'2" SpO2: 95% Weight: 138 lbs 03/07/2017 Blood Pressure 1: 108/52 Code : 8480-6 BMI: 27.6 Code : 82854-0 Heart Rate 1 : 72 bpm Height: 5'2" SpO2: 96% Weight: 151 lbs 01/24/2017 Blood Pressure 1: 126/60 Code : 8480-6 BMI: 27.1 Code : 50508-4 Heart Rate 1 : 60 bpm Height: [...] Code : 8480-6 BMI: 26.8 Code : 04009-6 Heart Rate 1 : 59 bpm Height: 5'2" SpO2: 97% Weight: 146 lbs 8 oz 05/10/2016 Blood Pressure 1: 120/56 Code : 8480-6 BMI: 27.1 Code : 81682-3 Heart Rate 1 : 63 bpm Height: 5'2" SpO2: 97% Weight: 148 lbs 04/25/2016 Blood Pressure 1: 134/66 Code : 8480-6 BMI: 24.9 Code : 79482-6 Heart Rate 1 : 118 bpm Height: 5'2" SpO2: 93% Temperature: 36.8 (C) / 98.3 (F) Weight: 136 lbs 01/14/2016 Blood Pressure 1: 132/78 Code : 8480-6 BMI: 25.6 Code : 70982-8 Heart Rate 1 : 97 bpm Height: 5'2" SpO2: 95% Weight: 140 lbs 12/10/2015 Blood Pressure 1: 118/72 Code : 8480-6 BMI: 26.2 Code : 81529-6 Heart Rate 1 : 68 bpm Height: 5'2" SpO2: 95% Weight: 143 lbs 11/12/2015 Blood Pressure 1: 140/80 Code : 8480-6 BMI: 25.6 Code : 68045-7 Heart Rate 1 : 77 bpm Height: 5'2" SpO2: 93% Weight: 140 lbs 10/08/2015 Blood Pressure 1: 132/60 Code : 8480-6 BMI: 26.2 Code : 59078-6 Heart Rate 1 : 77 bpm Height: 5'2" SpO2: 96% Weight: 143 lbs 09/29/2015 Blood Pressure 1: 130/62 Code : 8480-6 BMI: 27.1 Code : 51637-6 Heart Rate 1 : 86 bpm Height: 5'2" SpO2: 93% Weight: 148 lbs 09/22/2015 Blood Pressure 1: 164/72 Code : 8480-6 BMI: 28.2 Code : 57506-9 Heart Rate 1 : 79 bpm Height: 5'2" SpO2: 92% Weight: 154 lbs 07/21/2015 Blood Pressure 1: 124/70 Code : 8480-6 BMI: 24.5 Code : 97135-5 Heart Rate 1 : 71 bpm Height: 5'2" SpO2: 98% Weight: 134 lbs 06/23/2015 Blood Pressure 1: 122/68 Code : 8480-6 BMI: 25.4 Code : 58774-3 Heart Rate 1 : 78 bpm Height: 5'2" SpO2: 92% Weight: 139 lbs 06/12/2015 Blood Pressure 1: 154/62 Code : 8480-6 BMI: 27.4 Code : 21618-2 Heart Rate 1 : 87 bpm Height: 5'2" SpO2: 94% Weight: 150 lbs 06/02/2015 Blood Pressure 1: 140/68 Code : 8480-6 Heart Rate 1: 90 bpm SpO2: 91% Weight: 142 lbs 03/31/2015 Blood Pressure 1: 120/56 Code : 8480-6 BMI: 23.6 Code : 15363-5 Heart Rate 1 : 82 bpm Height: 5'2" SpO2: 98% Weight: 129 lbs 01/30/2015 Blood Pressure 1: 108/62 Code : 8480-6 BMI: 22.1 Code : 88790-0 Heart Rate 1 : 8299 bpm Height: 5'2 " SpO2: 99% Weight: 121 lbs 12/22/2014 Blood Pressure 1: 130/70 Code : 8480-6 BMI: 21.8 Code : 63378-5 Heart Rate 1 : 106 bpm Height: 5'2" SpO2: 98% Weight: 119 lbs 10/29/2014 Blood Pressure 1: 118/58 Code : 8480-6 BMI: 23.2 Code : 79344-7 Heart Rate 1 : 74 bpm Height: 5'2" SpO2: 93% Weight: 127 lbs 10/14/2014 Blood Pressure 1: 128/64 Code : 8480-6 BMI: 22.9 Code : 62146-4 Heart Rate 1 : 79 bpm Height: 5'2" SpO2: 93% Temperature: 35.9 (C) / 96.6 (F) Weight: 125 lbs 09/19/2014 Blood Pressure 1: 132/72 Code : 8480-6 BMI: 22.9 Code : 67822-6 Heart Rate 1 : 84 bpm Height: 5'2" SpO2: 96% Weight: 125 lbs 08/22/2014 Blood Pressure 1: 124/72 Code : 8480-6 BMI: 23.0 Code : 99169-1 Heart Rate 1 : 64 bpm Height: 5'2" Weight: 126 lbs 08/04/2014 Blood Pressure 1: 126/86 Code : 8480-6 BMI: 23.6 Code : 48112-3 Height: 5'2" Respiratory Rate: 20 bpm Weight: 129 lbs 07/24/2014 Blood Pressure 1: 116/72 Code : 8480-6 BMI: 23.6 Code : 76382-1 Heart Rate 1 : 74 bpm Height: 5'2" Weight: 129 lbs 07/15/2014 Blood Pressure 1: 132/78 Code : 8480-6 BMI: 24.1 Code : 10529-0 Heart Rate 1 : 74 bpm Height: [...] data Encounters Encounter Performer Location Codes Date ([id number]) 30603 EST. PATIENT, LEVEL IV Diagnosis: Right lower quadrant pain[ICD10: R10.31] Diagnosis: Diarrhea, unspecified[ICD10: R19.7] Diagnosis: Essential (primary) hypertension[ICD10: I10] Diagnosis: Low back pain[ICD10: M54.5] Diagnosis: Gastro-esophageal reflux disease without esophagitis[ICD10: K21.9] Merle Daigle MD, [facility] CPT-4: 17738 03/15/2018 ([id number]) 44304 EST. PATIENT, LEVEL IV Diagnosis: Essential (primary) hypertension[ICD10: I10] Diagnosis: detention (current) use of anticoagulants[ICD10: Z79.01] Diagnosis: Other malaise[ICD10: R53.81] Diagnosis: Vascular dementia without behavioral disturbance[ICD10: F01.50] Veronica Daigle MD, [facility] CPT-4: 10584 12/12/2017 ([id number]) 79312 EST. PATIENT, LEVEL IV Diagnosis: Paroxysmal atrial fibrillation[ICD10: I48.0] Diagnosis: Essential (primary) hypertension[ICD10: I10] Diagnosis: detention (current) use of anticoagulants[ICD10: Z79.01] Diagnosis: Low back pain[ICD10: M54.5] Veronica Daigle MD, [facility] CPT- 4: 28292 09/05/2017 ([id number]) 34364 EST. PATIENT, LEVEL IV Diagnosis: Essential (primary) hypertension[ICD10: I10] Diagnosis: Generalized anxiety disorder[ICD10: F41.1] Diagnosis: Major depressive disorder, single episode, unspecified[ICD10: F32.9] Diagnosis: Localized edema[ICD10: R60.0] Veronica Daigle MD, [facility] CPT- 4: 53114 05/09/2017 ([id number]) 30821 EST. PATIENT, LEVEL IV Diagnosis: Essential (primary) hypertension[ICD10: I10] Diagnosis: Paroxysmal atrial fibrillation[ICD10: I48.0] Diagnosis: Generalized anxiety disorder[ICD10: F41.1] Diagnosis: Localized edema[ICD10: R60.0] Veronica Daigle MD, [facility] CPT- 4: 03102 03/07/2017 ([id number]) 39970 EST. PATIENT, LEVEL IV Diagnosis: Generalized anxiety disorder[ICD10: F41.1] Diagnosis: Major depressive disorder, single episode, unspecified[ICD10: F32.9] Diagnosis: Essential (primary) hypertension[ICD10: I10] Diagnosis: Paroxysmal atrial fibrillation[ICD10: I48.0] Merle Daigle MD, [facility] CPT-4: 45671 01/24/2017 66537 EST. PATIENT, LEVEL IV Diagnosis: Other chest pain[ICD10: R07.89] Diagnosis: Other malaise[ICD10: R53.81] Opal Daigle MD, [facility] CPT-4 : 18457 09/29/2016 ([id number]) 67909 EST. PATIENT, LEVEL IV Diagnosis: Essential (primary) hypertension[ICD10: I10] Diagnosis: Paroxysmal atrial fibrillation[ICD10: I48.0] Diagnosis: Localized edema[ICD10: R60.0] Diagnosis: Generalized anxiety disorder[ICD10: F41.1] Diagnosis: Low back pain[ICD10: M54.5] Merle Daigle MD, [facility] CPT-4: 97863 09/13/2016 ([id number]) 60065 EST. PATIENT, LEVEL III Diagnosis: Essential (primary) hypertension[ICD10: I10] Diagnosis: Paroxysmal atrial fibrillation[ICD10: I48.0] Merle Daigle MD, [facility] CPT-4: 48788 05/31/2016 ([id number]) 71690 EST. PATIENT, LEVEL III Diagnosis: Essential (primary) hypertension[ICD10: I10] Diagnosis: Localized edema[ICD10: R60.0] Merle Daigle MD, [facility] CPT-4: 20772 05/10/2016 ([id number]) 82751 EST. PATIENT, LEVEL IV Diagnosis: Paroxysmal atrial fibrillation[ICD10: I48.0] Diagnosis: Essential (primary) hypertension[ICD10: I10] Diagnosis: Generalized anxiety disorder[ICD10: F41.1] Merle Daigle MD, [facility] CPT-4: 10692 04/25/2016 ([id number]) 94983 EST. PATIENT, LEVEL IV Diagnosis: Generalized anxiety disorder[ICD10: F41.1] Diagnosis: Essential (primary) hypertension[ICD10: I10] Diagnosis: Paroxysmal atrial fibrillation[ICD10: I48.0] Diagnosis: Localized edema[ICD10: R60.0] Diagnosis: Acute recurrent maxillary sinusitis[ICD10: J01.01] Merle Daigle MD, [facility] CPT-4: 31473 01/14/2016 ([id number]) 06106 EST. PATIENT, LEVEL IV Diagnosis: Essential (primary) hypertension[ICD10: I10] Diagnosis: Generalized anxiety disorder[ICD10: F41.1] Diagnosis: Localized edema[ICD10: R60.0] Diagnosis: Encounter for immunization[ICD10: Z23] Merle Daigle MD, [facility] CPT-4: 14467 12/10/2015 ([id number]) 20430 EST. PATIENT, LEVEL III Diagnosis: Essential (primary) hypertension[ICD10: I10] Diagnosis: Localized edema[ICD10: R60.0] Merle Daigle MD, [facility] CPT-4: 49265 11/12/2015 ([id number]) 32508 EST. PATIENT, LEVEL III Diagnosis: Essential (primary) hypertension[ICD10: I10] Diagnosis: Localized edema[ICD10: R60.0] Merle Daigle MD, [facility] CPT-4: 80165 10/08/2015 ([id number]) 76412 EST. PATIENT, LEVEL III Diagnosis: Localized edema[ICD10: R60.0] Diagnosis: Essential (primary) hypertension[ICD10: I10] Merle Daigle MD, [facility] CPT-4: 39882 09/29/2015 ([id number]) 13043 EST. PATIENT, LEVEL IV Diagnosis: Localized edema[ICD10: R60.0] Diagnosis: Essential (primary) hypertension[ICD10: I10] Diagnosis: Paroxysmal atrial fibrillation[ICD10: I48.0] Merle Daigle MD, [facility] CPT-4: 83901 09/22/2015 ([id number]) 35840 EST. PATIENT, LEVEL III Diagnosis: Essential (primary) hypertension[ICD10: I10] Diagnosis: Paroxysmal atrial fibrillation[ICD10: I48.0] Merle Daigle MD, [facility] CPT-4: 60034 07/21/2015 ([id number]) 08452 EST. 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 PATIENT, LEVEL IV Diagnosis: Essential (primary) hypertension[ICD10: I10] Diagnosis: Paroxysmal atrial fibrillation[ICD10: I48.0] Diagnosis: Localized edema[ICD10: R60.0] Diagnosis: Encounter for therapeutic drug level monitoring[ICD10: Z51.81] Merle Dailge MD, [facility] CPT-4: 49017 06/02/2015 [id number]) 79201 EST. 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 PATIENT, LEVEL III Diagnosis: Essential (primary) hypertension[ICD10: I10] Diagnosis: Allergic rhinitis due to pollen[ICD10: J30.1] Merle Daigle MD, [facility] CPT-4: 86101 01/30/2015 08677 EST. PATIENT, LEVEL III Diagnosis: Localized edema[ICD10: R60.0] Diagnosis: Diarrhea, unspecified[ICD10: R19.7] Veronica Daigle MD, [facility] CPT-4: 21335 12/22/2014 [id number]) 32372 EST. PATIENT, LEVEL IV Diagnosis: DYSPHAGIA, PHARYNGEAL[ICD9: 787.23] Diagnosis: Low back pain[ICD9: 724.2] Diagnosis: Cough[ICD9: 786.2] Diagnosis: Anticoagulated on Coumadin[ICD9: V58.83] Diagnosis: MUSCLE WEAKNESS-GENERAL[ICD9: 728.87] Diagnosis: EDEMA[ICD9: 782.3] Veronica Daigle MD, [facility] CPT-4: 74260 10/29/2014 ([id number]) 25212 EST. PATIENT, LEVEL IV Diagnosis: Low back pain[ICD9: 724.2] Diagnosis: Pneumonia[ICD9: 486] Diagnosis: Cough[ICD9: 786.2] Diagnosis: Anticoagulated on Coumadin[ICD9: V58.83] Diagnosis: DYSPHAGIA, NOS[ICD9: 787.20] Diagnosis: MUSCLE WEAKNESS-GENERAL[ICD9: 728.87] Merle Daigle MD, [facility] CPT-4: 29124 10/14/2014 ([id number]) 54361 EST. PATIENT, LEVEL IV Diagnosis: ESSENTIAL HYPERTENSION[ICD9: 401.9] Diagnosis: ESOPHAGEAL REFLUX[ICD9: 530.81] Diagnosis: SLEEP RELATED LEG CRAMPS[ICD9: 327.52] Diagnosis: Atrial fibrillation[ICD9: 427.31] Diagnosis: Anticoagulated on Coumadin[ICD9: V58.83] Diagnosis: VITAMIN D DEFICIENCY[ICD9: 268.9] Merle Daigle MD, [facility] CPT-4: 69866 09/19/2014 ([id number]) 02922 EST. PATIENT, LEVEL III Diagnosis: EDEMA[ICD9: 782.3] Diagnosis: LONG-TERM USE ANTICOAGUL[ICD9: V58.61] Merle Daigle MD, [facility] CPT-4: 52869 08/22/2014 ([id number]) 07387 EST. PATIENT, LEVEL IV Diagnosis: Skin irritation[ICD9: 709.9] Diagnosis: ESSENTIAL HYPERTENSION[ICD9: 401.9] Diagnosis: Anticoagulated on Coumadin[ICD9: V58.83] Diagnosis: DEPRESSIVE DISORDER NEC[ICD9: 311] [facility] CPT-4: 06219 08/04/2014 ([id number]) 76847 EST. PATIENT, LEVEL III Diagnosis: Skin irritation[ICD9: 709.9] Veronica Daigle MD, [facility] CPT- 4: 05610 07/24/2014 ([id number]) OFFICE/OUTPATIENT VISIT NEW Diagnosis: ESSENTIAL HYPERTENSION[ICD9: 401.9] Diagnosis: COUGH[ICD9: 786.2] Diagnosis: Atrial fibrillation[ICD9: 427.31] Diagnosis: LONG-TERM USE ANTICOAGUL[ICD9: V58.61] Diagnosis: DEPRESSIVE DISORDER NEC[ICD9: 311] Veronica Daigle MD, [facility] CPT-4: 59346 07/15/2014 Plan of Care Planned Activity Notes [...] over-medication. 03/15/2018 Appointment: Merle Esparza WPtel: [id number] (30 min) Complex 03/15/2018 Patient Education: Patient Medication Summary Completed 03/15/2018 Patient Education: Hypertension Completed 03/15/2018 Patient Education: Back Pain Completed 03/15/2018 Appointment: Veronica Daigle WPtel: [facility] (15 min) Moderate 02/01/2018 Appointment: Veronica Daigle WPtel: [facility] (15 min) Moderate 01/16/2018 Visit Plan: Hypertension [...] time. 12/12/2017 Appointment: Veronica Daigle WPtel: [facility] (15 min) Moderate 12/12/2017 Patient Education: [...] had her pain medication stolen by a career services director through home health - i have given pt a script for 50 pills to get her through for when she can get her next RX for her pain medication. 09/05/2017 Appointment: Veronica Daigle WPtel: [facility] (15 min) Moderate 09/05/2017 Patient Education: [...] current medications. 05/09/2017 Appointment: Veronica Daigle WPtel: [facility] (15 min) Moderate 05/09/2017 Patient Education: [...] medications. 03/07/2017 Appointment: Veronica Daigle WPtel: [phone] [facility] (15 min) Moderate 03/07/2017 Patient Education: [...] uncontrolled. 01/24/2017 Appointment: Merle Esparza WPtel: [facility]5 [phone] (30 min) Complex 01/24/2017 Patient Education: [...] concerns. 09/29/2016 Appointment: Opal Boyle WPtel: [facility] (15 min) Moderate 09/29/2016 Appointment: Opal Boyle WPtel: [facility] (15 min) Moderate 09/29/2016 Patient Education: Patient [...] current medications. 09/13/2016 Appointment: Merle Esparza WPtel: [phone] [place] (30 min) Complex 09/13/2016 Patient [...] uncontrolled. 05/31/2016 Appointment: [facility]Ptel[phone] (30 min) Complex 05/31/2016 Patient Education: [...] TODAY 05/10/2016 Appointment: Merle Esparza WPtel[phone] (30 min) Complex 05/10/2016 Patient Education: Patient Medication Summary Completed 05/10/2016 Patient Education: Hypertension Completed 05/10/2016 Appointment: Merle Esparza WPtel[phone] (15 min) Moderate 05/09/2016 Visit Plan: Afib-not [...] current medications. 04/25/2016 Appointment: Merle Esparza WPtel: [address] [place], [place] [id number] [place] [address] (30 min) Complex 04/25/2016 Patient Education: Patient Medication Summary Completed 04/25/2016 Patient Education: Hypertension Completed 04/25/2016 Appointment: Merle Esparza WPtel: [address] [place], [place] [id number] [address] [place] [address] (15 min) Moderate 02/12/2016 Visit Plan: Hypertension [...] becoming uncontrolled. 01/14/2016 Appointment: Merle Esparza WPtel: [address] [place], [place] [phone] [place] [address] (30 min) Complex 01/14/2016 Patient Education: Patient [...] peripheral edema. 12/10/2015 Appointment: Merle Esparza WPtel: [address] [place], [place] [phone] [place] [address] (30 min) Complex 12/10/2015 Patient Education: Patient [...] peripheral edema. 11/12/2015 Appointment: Merle Esparza WPtel: [address] [place], [place] [phone] [place] [address] (15 min) Moderate 11/12/2015 Patient Education: Patient Medication Summary Completed 11/12/2015 Appointment: Merle Esparza WPtel: [address] [place], [place] [phone] [place] [address] (15 min) Moderate 10/22/2015 Visit Plan: Hypertension [...] edema. 10/08/2015 Appointment: Merle Esparza WPtel: [id number] [place] [address] (15 min) Moderate 10/08/2015 Patient Education: Patient [...] home. 09/29/2015 Appointment: Merle Esparza WPtel: [facility] [id number] [place] [address] (15 min) [facility] 09/29/2015 Patient Education: Patient Medication Summary [...] edema. 09/22/2015 Appointment: Merle Esparza WPtel: [phone] [phone] (30 min) Complex 09/22/2015 Patient Education: [...] week- will restart anti coagulant if able Agatr-qibzhjwl-me change in medications Anemia-received 1 unit blood last week-hgb repeated yesterday and has increased from 9.5 to 9.8-continue to monitor 06/23/2015 Appointment: [phone] [phone] (30 min) Complex 06/23/2015 Patient Education: [...] Hypertension Completed 01/30/2015 Appointment: Veronica Daigle WPtel[id number] (30 min) Complex 01/28/2015 Appointment: (30 [...] at home. 12/22/2014 Appointment: Merle Esparza WPtel: [phone] (30 min) Complex 12/22/2014 Patient Education: [...] Care Plan: COMPLETE CBC AUTOMATED LOINC : 38742-9 Ordered 08/22/2014 Visit Plan: Itching/Skin irritation- Resolved. [...] if needed. 07/24/2014 Appointment: Yumiko Dickinson WPtel: [address] [place], [place] [id number] (10 min) Simple 07/24/2014 Patient Education: Patient [...] - she has refused to see a corporate development associate and reports to me that she will not go to the hospital and will not have the recommended testing. She states that she does not have any family left, and is not willing to have any further testing/treatment. Labs to be checked today for coumadin levels to be further adjusted. 07/15/2014 Appointment: Veronica Daigle WPtel: [id number] [place] New Patient 07/15/2014 Patient [...] to "keep everything on the same schedule." make sure you are taking omeprazole twice [...] next week-will restart anti coagulant if able Xkwnq-aljmbrtk-ml change in medications Anemia-received 1 unit blood last week-hgb repeated yesterday and has increased from 9.5 to 9.8-continue to monitor CONTINUE LASIX TWICE DAILY X 7 DAYS [...] or with any questions, changes or concerns. INCREASE LASIX 40MG TO TWICE DAILY X [...] to further attempt to reduce peripheral edema. Vvhbsnvmg-mzhnqylyk-fvroec all of abx Atrial Fibrillation - pt [...] had her pain medication stolen by a career services director through home health - i have given [...] CHEST XRAY, LUMBAR SPINE Antibiotics sent to [facility] Take a probiotic while on the antibiotics REFER TO HOME MVRNMB-Qxhmeqk-odbku PT/INR on , PT SWALLOW STUDY DX dysphagia Shun (neighbor) [phone] . Pneumonia - Pt has been diagnosed [...] while on the antibiotics REFER TO HOME ASGEYD-Kqqxfdi-aapca PT/INR on , PT SWALLOW STUDY DX dysphagia Shun (neighbor) [phone] . Pneumonia - Pt has been diagnosed [...] in 10 days or sooner if needed. OK TO GO BACK TO DAILY ON [...] Kenalog injection today in the office . Chronic Depression and anxiety - the [...] to further attempt to reduce peripheral edema. LEXAPRO 5MG DAILY IN THE EVENING CHECK [...] - she has refused to see a corporate development associate and reports to me that she will [...] for INR is between 2.0 and 3.5. Wear compression socks or sujata wraps daily [...] study on a Monday if possible. . Hypertension - well controlled - continue [...]
[2018-04-19 00:02] LABS: INR 2.1 (0.8-1.4); PROTHROMBIN TIME PATIENT 23.6 SEC (12.2-14.7)
--- OUTSIDE RECORDS SUMMARY | 2018-04-19 00:06 | XMS REPORT | CCD ---
Author Author [facility] Organization [facility] Address [address] [place] [address] Phone Care Team Providers [facility] Activities Coordinator Name Role Phone PP Unavailable CCM Unavailable Summary Purpose Interface Exchange Insurance Providers Payer name Policy type / Coverage type Covered republican ID Effective Begin Date Effective End Date WPS Medicare Part B Medicare Part B [id number] Unknown Family history Mother Diagnosis Age At Onset Hypertension Unknown Heart Attack Unknown Social History Social History Element Codes Description Effective Dates Marital status Unknown 07/15/2014 Marital status Unknown 07/15/2014 Number of children Unknown 0 07/15/2014 Number of children Unknown 0 07/15/2014 Employment Unknown Retired 07/15/2014 Employment Unknown Retired 07/15/[address]: 832923407 Has never smoked or chewed tobacco 07/15/[address]: 972365141 Has never smoked or chewed tobacco 07/15/[address]: 418699750 Never drinks alcohol 07/15/[address]: 211945208 Never drinks alcohol 07/15/2014 Allergies, Adverse Reactions, Alerts Substance Reaction Codes Entered Date Inactivated Date Status * NO KNOWN FOOD ALLERGIES Unknown 07/15/2014 No Inactive Date Active SULFA(SULFONAMIDE ANTIBIOTICS) Unknown 07/15/2014 No Inactive Date Active Past Medical History Illness Codes Condition Status Onset Date Resolved Date Essential (primary) hypertension ICD-9: 401.9 ICD-10: I10 Active 01/13/2016 Unknown group home (current) use of anticoagulants ICD-9: V58.61 ICD-10: Z79.01 Active 03/30/2015 Unknown Other malaise ICD-9: 780.79 ICD-10: R53.81 Active 09/29/2016 Unknown Vascular dementia without behavioral disturbance ICD-9: 290.40 ICD-10: F01.50 Active 12/12/2017 Unknown Generalized anxiety disorder ICD-9: 300.02 ICD-10: F41.1 Active 01/13/2016 Unknown Low back pain ICD-9: 724.2 ICD-10: M54.5 Active 09/13/2016 Unknown Paroxysmal atrial fibrillation ICD-9: 427.31 ICD-10: [...] hypertension ICD-9: 401.9 ICD-10: I10 01/13/2016 Active 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 ICD-9: V58.61 ICD-10: Z79.01 03/30/2015 Active Other malaise ICD-9: 780.79 ICD-10: R53.81 09/29/2016 Active Vascular dementia without behavioral disturbance ICD-9: 290.40 ICD-10: F01.50 12/12/2017 Active Generalized anxiety disorder ICD-9: 300.02 ICD-10: F41.1 01/13/2016 Active Low back pain ICD-9: 724.2 ICD-10: M54.5 09/13/2016 Active Paroxysmal atrial fibrillation ICD-9: 427.31 ICD-10: [...] chloride ER 10 mEq tablet,extended release RxNorm: 740613 TAKE TWO TABLETS BY MOUTH THREE TIMES A DAY 02/28/2018 07/27/2018 Active hydrocodone 7.5 mg-acetaminophen 325 mg tablet RxNorm: 876954 1 Tablet(s) PO daily as needed pain 02/01/20182018 Active Xanax 0.25 mg tablet RxNorm: 486372 1 Tablet(s) PO TID as needed anxiety 01/01/2018 01/20/2018 Inactive hydrocodone 7.5 mg-acetaminophen 325 mg tablet RxNorm: 701244 1 Tablet(s) PO daily as needed pain 12/12/20172017 Inactive cyanocobalamin (vit B-12) 1,000 mcg/mL injection solution RxNorm: 978544 INJECT 1 ML INTRAMUSCULARLY 2 TIMES A MONTH FOR 2 MONTHS, THEN ONCE A MONTH THEREAFTER 11/28/2017 01/22/2018 Inactive hydrocodone 7.5 mg-acetaminophen 325 mg tablet RxNorm: 175458 1-2 Tablet(s) PO Q4- 6H as needed pain 11/21/2017 12/11/2017 Inactive Lasix 40 mg tablet RxNorm: 132700 TAKE ONE TABLET BY MOUTH DAILY 10/23/2017 04/20/2018 Active Lexapro 5 mg tablet RxNorm: 450737 TAKE ONE TABLET BY MOUTH EVERY EVENING 10/23/2017 12/21/2017 Inactive buspirone 10 mg tablet RxNorm: 626670 TAKE ONE TABLET BY MOUTH THREE TIMES A DAY 10/02/2017 02/28/2018 Inactive omeprazole 20 mg capsule,delayed release RxNorm: 492505 TAKE ONE CAPSULE BY MOUTH TWICE A DAY 09/13/2017 03/11/2018 Active Levaquin 750 mg tablet RxNorm: 889367 1 tab every other day for 5 doses 1 Tablet(s ) PO 08/29/2017 08/28/2017 Inactive Levaquin 750 mg tablet RxNorm: 048799 1 tab every other day for 5 doses 1 Tablet(s ) PO 08/29/2017 09/02/2017 Inactive hydrocodone 7.5 mg-acetaminophen 325 mg tablet RxNorm: 850388 1-2 Tablet(s) PO Q4- 6H as needed pain 08/28/2017 09/26/2017 Inactive potassium chloride ER 10 mEq tablet,extended release RxNorm: 631613 TAKE TWO TABLETS BY MOUTH THREE TIMES A DAY 08/28/2017 12/25/2017 Inactive metoprolol tartrate 25 mg tablet RxNorm: 625412 TAKE 1/2 TABLET BY MOUTH TWO TIMES A DAY 07/25/2017 07/19/2018 Active Lexapro 5 mg tablet RxNorm: 768603 TAKE ONE TABLET BY MOUTH EVERY EVENING 07/21/2017 10/18/2017 Inactive hydrocodone 7.5 mg-acetaminophen 325 mg tablet RxNorm: 068233 1-2 Tablet(s) PO Q4- 6H as needed pain 07/19/2017 08/17/2017 Inactive hydrocodone 7.5 mg-acetaminophen 325 mg tablet RxNorm: 435779 1-2 Tablet(s) PO Q4- 6H as needed pain 07/03/2017 07/18/2017 Inactive hydrocodone 7.5 mg-acetaminophen 325 mg tablet RxNorm: 463010 1-2 Tablet(s) PO Q4- 6H as needed pain 05/25/2017 06/23/2017 Inactive cyanocobalamin (vit B-12) 1,000 mcg/mL injection solution RxNorm: 226293 INJECT 1 ML INTRAMUSCULARLY 2 TIMES A MONTH FOR 2 MONTHS, THEN ONCE A MONTH THEREAFTER 05/19/2017 08/10/2017 Inactive warfarin 5 mg tablet RxNorm: 880011 TAKE ONE TABLET BY MOUTH DAILY 04/26/2017 04/20/2018 Active buspirone 10 mg tablet RxNorm: 579839 TAKE ONE TABLET BY MOUTH THREE TIMES A DAY 04/26/2017 09/22/2017 Inactive Xanax 0.25 mg tablet RxNorm: 331319 1 Tablet(s) PO TID as needed anxiety 04/17/2017 05/14/2017 Inactive Levaquin 500 mg tablet RxNorm: 489448 1 Tablet(s) PO Q72H x3 doses 04/11/2017 04/10/2017 Inactive Levaquin 500 mg tablet RxNorm: 317488 1 Tablet(s) PO Q72H x3 doses 04/11/2017 07/03/2017 Inactive potassium chloride ER 10 mEq tablet,extended release RxNorm: 077720 TAKE TWO TABLETS BY MOUTH THREE TIMES A DAY 03/27/2017 08/23/2017 Inactive Tamiflu 75 mg capsule RxNorm: 188679 1 Capsule(s) PO BID 201707/03/2017 Inactive Zofran 4 mg tablet RxNorm: 216502 1 Tablet(s) PO QID as needed nausea 03/23/2017 06/20/2017 Inactive Zofran 4 mg tablet RxNorm: 338467 1 Tablet(s) PO QID as needed nausea 03/23/2017 03/22/2017 Inactive Tamiflu 75 mg capsule RxNorm: 217228 1 Capsule(s) PO BID 201703/22/2017 Inactive lisinopril 10 mg tablet RxNorm: 331109 TAKE ONE-HALF TABLET BY MOUTH DAILY 03/10/2017 06/02/2018 Active metolazone 5 mg tablet RxNorm: 560681 1 Tablet(s) PO TIW 201703/01/2018 Active hydrocodone 7.5 mg-acetaminophen 325 mg tablet RxNorm: 703271 1-2 Tablet(s) PO Q4- 6H as needed pain 02/23/2017 05/24/2017 Inactive omeprazole 20 mg capsule,delayed release RxNorm: 596771 Capsule(s) TAKE ONE CAPSULE BY MOUTH TWICE A DAY 02/08/2017 Inactive metolazone 5 mg tablet RxNorm: 571717 TAKE 1 TABLET BY MOUTH TWICE WEEKLY 02/08/2017 03/06/2017 Inactive Lexapro 5 mg tablet RxNorm: 448826 1 Tablet(s) PO QPM 201603/06/2017 Inactive hydrocodone 7.5 mg-acetaminophen 325 mg tablet RxNorm: 623403 1-2 Tablet(s) PO Q4- 6H as needed pain 01/16/2017 02/22/2017 Inactive Lasix 40 mg tablet RxNorm: 830385 TAKE ONE TABLET BY MOUTH DAILY 01/11/2017 10/07/2017 Inactive metoprolol tartrate 25 mg tablet RxNorm: 133452 TAKE 1/2 TABLET BY MOUTH TWO TIMES A DAY 01/11/2017 07/09/2017 Inactive allopurinol 300 mg tablet RxNorm: 879816 TAKE ONE TABLET BY MOUTH DAILY 01/09/2017 06/07/2017 Inactive hydrocodone 7.5 mg-acetaminophen 325 mg tablet RxNorm: 347724 1-2 Tablet(s) PO Q4- 6H as needed pain 12/06/2016 01/15/2017 Inactive lisinopril 10 mg tablet RxNorm: 308746 TAKE ONE-HALF TABLET BY MOUTH DAILY 12/02/2016 03/09/2017 Inactive buspirone 10 mg tablet RxNorm: 761994 TAKE ONE TABLET BY MOUTH THREE TIMES A DAY 10/25/2016 01/22/2017 Inactive buspirone 10 mg tablet RxNorm: 687150 TAKE ONE TABLET BY MOUTH THREE TIMES A DAY 10/25/2016 10/24/2016 Inactive hydrocodone 7.5 mg-acetaminophen 325 mg tablet RxNorm: 624737 1-2 or 2 Tablet(s) PO Q4-6H as needed pain 10/25/20162016 Inactive cyanocobalamin (vit B-12) 1,000 mcg/mL injection solution RxNorm: 455825 INJECT 1 ML INTRAMUSCULARLY 2 TIMES A MONTH FOR 2 MONTHS, THEN ONCE A MONTH THEREAFTER 10/24/2016 02/12/2017 Inactive metolazone 5 mg tablet RxNorm: 916751 TAKE 1 TABLET BY MOUTH TWICE WEEKLY 09/23/2016 01/12/2017 Inactive hydrocodone 7.5 mg-acetaminophen 325 mg tablet RxNorm: 181028 1-2 or 2 Tablet(s) PO Q4-6H as needed pain 09/13/20162016 Inactive Keflex 500 mg capsule RxNorm: 772478 1 Capsule(s) PO TID 201609/15/2016 Inactive Take with a probiotic BID Keflex 500 mg capsule RxNorm: 798938 1 Capsule(s) PO TID 201609/08/2016 Inactive Take with a probiotic BID metoprolol tartrate 25 mg tablet RxNorm: 062207 TAKE 1/2 TABLET BY MOUTH TWO TIMES A DAY 09/07/2016 01/04/2017 Inactive potassium chloride ER 10 mEq tablet,extended release RxNorm: 107361 TAKE TWO TABLETS BY MOUTH THREE TIMES A DAY 09/01/2016 02/27/2017 Inactive hydrocodone 7.5 mg-acetaminophen 325 mg tablet RxNorm: 712018 1 or 2 Tablet(s) PO Q4-6H as needed pain 08/31/20162016 Inactive omeprazole 20 mg capsule,delayed release RxNorm: 937878 TAKE ONE CAPSULE BY MOUTH TWICE A DAY 08/24/2016 02/07/2017 Inactive hydrocodone 7.5 mg-acetaminophen 325 mg tablet RxNorm: 437126 1 or 2 Tablet(s) PO Q4-6H as needed pain 08/05/20162016 Inactive lisinopril 10 mg tablet RxNorm: 485728 TAKE ONE-HALF TABLET BY MOUTH DAILY 07/28/2016 12/01/2016 Inactive hydrocodone 7.5 mg-acetaminophen 325 mg tablet RxNorm: 661746 1 or 2 Tablet(s) PO Q4-6H as needed pain 07/05/20162016 Inactive allopurinol 300 mg tablet RxNorm: 393420 TAKE ONE TABLET BY MOUTH DAILY 06/16/2016 12/12/2016 Inactive metoprolol tartrate 25 mg tablet RxNorm: 441375 TAKE 1/2 TABLET BY MOUTH TWO TIMES A DAY 06/16/2016 08/14/2016 Inactive buspirone 10 mg tablet RxNorm: 280449 TAKE ONE TABLET BY MOUTH THREE TIMES A DAY 06/15/2016 10/12/2016 Inactive hydrocodone 7.5 mg-acetaminophen 325 mg tablet RxNorm: 491727 1 or 2 Tablet(s) PO Q4-6H as needed pain 06/07/20162016 Inactive metoprolol tartrate 25 mg tablet RxNorm: 000821 1/2 Tablet(s) PO QPM 05/10/2016 06/08/2016 Inactive lisinopril 10 mg tablet RxNorm: 870621 1/2 Tablet(s) PO daily 04/26/2016 07/27/2016 Inactive hydrocodone 7.5 mg-acetaminophen 325 mg tablet RxNorm: 855700 1 or 2 Tablet(s) PO Q4-6H as needed pain 04/25/20162016 Inactive lisinopril 10 mg tablet RxNorm: 542515 1/2 Tablet(s) PO daily 04/25/2016 04/25/2016 Inactive metoprolol tartrate 25 mg tablet RxNorm: 362823 1/2 Tablet(s) PO BID 04/25/2016 05/09/2016 Inactive allopurinol 300 mg tablet RxNorm: 297856 TAKE ONE TABLET BY MOUTH DAILY 04/19/2016 06/15/2016 Inactive metolazone 5 mg tablet RxNorm: 749583 TAKE 1 TABLET BY MOUTH TWICE WEEKLY 04/19/2016 09/05/2016 Inactive potassium chloride ER 10 mEq tablet,extended release RxNorm: 707810 2 Tablet(s) PO TID 03/21/2016 08/17/2016 Inactive warfarin 5 mg tablet RxNorm: 964020 1 Tablet(s) PO daily TAKE ONE TABLET BY MOUTH DAILY 03/21/2016 03/15/[address] Echevarria manages potassium chloride ER 10 mEq tablet,extended release(part/ cryst) RxNorm: 7496612 2 Tablet(s) PO TID 03/11/2016 03/20/2016 Inactive Xanax 0.25 mg tablet RxNorm: 552393 1 Tablet(s) PO TID as needed anxiety 03/10/2016 04/06/2016 Inactive Xanax 0.25 mg tablet RxNorm: 033885 1 Tablet(s) PO TID as needed anxiety 03/10/2016 12/31/2017 Inactive hydrocodone 7.5 mg-acetaminophen 325 mg tablet RxNorm: 729311 1 or 2 Tablet(s) PO Q4-6H as needed pain 02/26/20162016 Inactive Flonase Allergy Relief 50 mcg/actuation nasal spray, suspension RxNorm: 9106522 1 [place] NASAL each nare daily 01/19/2016 03/18/2016 Inactive cefdinir 300 mg capsule RxNorm: 801207 1 Capsule(s) PO BID 01/23/2016 Inactive take probiotic BID x 7 days Flonase Allergy Relief 50 mcg/actuation nasal spray, suspension RxNorm: 6062445 1 [place] NASAL each nare daily 01/19/2016 01/18/2016 Inactive allopurinol 300 mg tablet RxNorm: 970355 TAKE ONE TABLET BY MOUTH DAILY 01/18/2016 04/16/2016 Inactive Lasix 40 mg tablet RxNorm: 803889 1 Tablet(s) PO daily 201501/07/2017 Inactive (this was only twice daily x1 week) now it's daily cefdinir 300 mg capsule RxNorm: 273602 1 Capsule(s) PO BID 01/17/2016 Inactive take probiotic BID x 7 days cefdinir 300 mg capsule RxNorm: 688553 1 Capsule(s) PO BID 01/10/2016 Inactive buspirone 10 mg tablet RxNorm: 135538 TAKE ONE TABLET BY MOUTH THREE TIMES A DAY 01/11/2016 06/08/2016 Inactive hydrocodone 7.5 mg-acetaminophen 325 mg tablet RxNorm: 624872 1 or 2 Tablet(s) PO Q4-6H as needed pain 12/28/20152015 Inactive potassium chloride ER 10 mEq tablet,extended release(part/ cryst) RxNorm: 9327405 2 po TID x 2 days then 2 po BID Tablet(s) 12/28/2015 03/10/2016 Inactive potassium chloride ER 10 mEq tablet,extended release(part/ cryst) RxNorm: 5878842 TAKE ONE TABLET BY MOUTH TWICE A DAY FOR 1 WEEK THEN RETURN TO DAILY 12/28/2015 12/27/2015 Inactive meclizine 25 mg tablet RxNorm: 045258 1 Tablet(s) PO BID PRN No Stop Date Active potassium chloride ER 10 mEq tablet,extended release(part/ cryst) RxNorm: 7576891 1 Tablet(s) PO TID 12/08/2015 03/10/2016 Inactive potassium chloride ER 10 mEq tablet,extended release(part/ cryst) RxNorm: 8689827 2 Tablet(s) PO daily 11/26/20152015 Inactive cyanocobalamin (vit B-12) 1,000 mcg/mL injection solution RxNorm: 183149 INJECT 1 ML INTRAMUSCULARLY 2 TIMES A MONTH FOR 2 MONTHS, THEN ONCE A MONTH THEREAFTER 11/26/2015 04/23/2016 Inactive potassium chloride ER 10 mEq tablet,extended release(part/ cryst) RxNorm: 6930498 3 Tablet(s) PO daily 11/23/20152015 Inactive Lasix 40 mg tablet RxNorm: 044446 1 Tablet(s) PO daily 201501/13/2016 Inactive (this was only twice daily x1 week) now it's daily metolazone 5 mg tablet RxNorm: 134266 1 Tablet(s) BIW TAKE ONE TABLET BY MOUTH DAILY 11/12/2015 04/18/2016 Inactive hydrocodone 7.5 mg-acetaminophen 325 mg tablet RxNorm: 044656 1 or 2 Tablet(s) PO Q4-6H as needed pain 11/12/20152015 Inactive Lasix 40 mg tablet RxNorm: 517932 1 Tablet(s) PO daily 201511/11/2015 Inactive (this was only twice daily x1 week) now it's daily metolazone 5 mg tablet RxNorm: 285219 Tablet(s) TAKE ONE TABLET BY MOUTH DAILY 10/22/2015 10/29/2015 Inactive potassium chloride ER 10 mEq tablet,extended release(part/ cryst) RxNorm: 9632833 1 Tablet(s) PO daily 10/08/20152015 Inactive twice daily x 1 week then return to daily Lasix 40 mg tablet RxNorm: 985643 1 Tablet(s) PO daily 201511/09/2015 Inactive twice daily x 1 week then daily thereafter Keflex 500 mg capsule RxNorm: 208884 1 Capsule(s) PO TID 201510/02/2015 Inactive Keflex 500 mg capsule RxNorm: 300336 1 Capsule(s) PO TID 201509/22/2015 Inactive hydrocodone 7.5 mg-acetaminophen 325 mg tablet RxNorm: 857407 1 or 2 Tablet(s) PO Q4-6H as needed pain 09/22/20152015 Inactive potassium chloride ER 10 mEq tablet,extended release(part/ cryst) RxNorm: 2975688 1 Tablet(s) PO BID 09/22/2015 10/07/2015 Inactive twice daily x 1 week then return to daily Lasix 40 mg tablet RxNorm: 528198 1 Tablet(s) PO BID 201510/07/2015 Inactive twice daily x 1 week then daily thereafter allopurinol 300 mg tablet RxNorm: 724955 1 Tablet(s) PO daily 09/09/2015 01/06/2016 Inactive diltiazem 90 mg tablet RxNorm: 153637 Tablet(s) TAKE ONE TABLET BY MOUTH THREE TIMES A DAY 09/02/2015 01/28/2016 Inactive diltiazem 90 mg tablet RxNorm: 730381 TAKE ONE TABLET BY MOUTH THREE TIMES A DAY 08/31/2015 01/28/2016 Inactive diltiazem 90 mg tablet RxNorm: 504684 TAKE ONE TABLET BY MOUTH THREE TIMES A DAY 08/31/2015 09/01/2015 Inactive Xanax 0.25 mg tablet RxNorm: 924387 1 Tablet(s) PO TID as needed anxiety 08/28/2015 09/26/2015 Inactive Xanax 0.25 mg tablet RxNorm: 997091 1 Tablet(s) PO TID as needed anxiety 08/28/2015 08/27/2015 Inactive potassium chloride ER 10 mEq tablet,extended release(part/ cryst) RxNorm: 074702 TAKE ONE TABLET BY MOUTH DAILY 08/27/2015 2015 Inactive omeprazole 20 mg capsule,delayed release RxNorm: 323384 TAKE ONE CAPSULE BY MOUTH TWICE A DAY 08/16/2015 02/11/2016 Inactive omeprazole 20 mg capsule,delayed release RxNorm: 845069 TAKE ONE CAPSULE BY MOUTH TWICE A DAY 08/16/2015 08/15/2015 Inactive hydrocodone 7.5 mg-acetaminophen 325 mg tablet RxNorm: 261691 1 or 2 Tablet(s) PO Q4-6H as needed pain 08/11/20152015 Inactive omeprazole 20 mg capsule,delayed release RxNorm: 975037 Capsule(s) TAKE ONE CAPSULE BY MOUTH TWICE A DAY 08/03/2015 Inactive omeprazole 20 mg capsule,delayed release RxNorm: 227359 Capsule(s) TAKE ONE CAPSULE BY MOUTH TWICE A DAY 07/31/2015 Inactive buspirone 10 mg tablet RxNorm: 645032 TAKE ONE TABLET BY MOUTH THREE TIMES A DAY 07/13/2015 01/08/2016 Inactive metolazone 5 mg tablet RxNorm: 910674 TAKE ONE TABLET BY MOUTH DAILY 07/02/2015 07/09/2015 Inactive metolazone 5 mg tablet RxNorm: 771748 1 Tablet(s) PO daily 06/18/2015 Inactive metolazone 5 mg tablet RxNorm: 336346 1 Tablet(s) PO daily 06/14/2015 Inactive hydrocodone 7.5 mg-acetaminophen 325 mg tablet RxNorm: 863865 1or2 1 or 2 Tablet(s ) PO Q4-6H as needed pain 06/12/201507/10 Inactive warfarin 1 mg tablet RxNorm: 716952 1 Tablet(s) 04/15/2015 06/22/2015 Inactive take with 3mg to make 4mg on Tue and Th repeat in 1 week. hydrocodone 7.5 mg-acetaminophen 325 mg tablet RxNorm: 369573 1or2 or 2 Tablet(s) PO Q4-6H as needed pain 03/31/20152015 Inactive hydrocodone 7.5 mg-acetaminophen 325 mg tablet RxNorm: 076129 1or2 or 2 Tablet(s) PO Q4-6H as needed pain 03/25/20152015 Inactive warfarin 5 mg tablet RxNorm: 283576 1 Tablet(s) PO daily TAKE ONE TABLET BY MOUTH DAILY 03/05/2015 06/22/2015 Inactive Xarelto 20 mg tablet RxNorm: 2339246 1 Tablet(s) PO QPM 201503/04/2015 Inactive losartan 100 mg tablet RxNorm: 766936 1 Tablet(s) PO daily 05/201406/22/2015 Inactive [SAVINGS FOR NON-COVERED DRUGS -- BIN:[id number], PCN: ASPROD1, Group: XXXXX, ID# [id number], Questions: . THIS IS NOT INSURANCE.] Kenalog 40 mg/mL suspension for injection RxNorm: 8597443 1 Milliliter(s) Inj 01/30/2015 01/30/2015 Inactive hydrocodone 7.5 mg-acetaminophen 325 mg tablet RxNorm: 649360 1or2 or 2 Tablet(s) PO Q4-6H as needed pain 01/15/20152014 Inactive Lasix 40 mg tablet RxNorm: 330031 1 Tablet(s) PO daily 201409/21/2015 Inactive as needed for swelling-take potassium when you take lasix potassium chloride ER 10 mEq tablet,extended release(part/ cryst) RxNorm: 659633 2 Tablet(s) PO daily 01/06/2015 01/19/2015 Inactive Lasix 40 mg tablet RxNorm: 226149 1 Tablet(s) PO daily 201401/06/2015 Inactive Ok to fill 20mg, not 40mg as needed for swelling-take potassium when you take lasix potassium chloride ER 10 mEq tablet,extended release(part/ cryst) RxNorm: 377100 1 Tablet(s) PO BID 12/30/2014 01/05/2015 Inactive Vitamin D2 50,000 unit capsule RxNorm: 435096 TAKE 1 CAPSULE BY MOUTH ONCE WEEKLY FOR 12 WEEKS 12/30/2014 03/23/2015 Inactive potassium chloride ER 10 mEq tablet,extended release(part/ cryst) RxNorm: 284005 1 Tablet(s) PO daily 12/26/2014 12/29/2014 Inactive potassium chloride ER 10 mEq tablet,extended release(part/ cryst) RxNorm: 705745 1 Tablet(s) PO daily 12/26/2014 12/25/2014 Inactive omeprazole 20 mg capsule,delayed release RxNorm: 932990 TAKE ONE CAPSULE BY MOUTH TWICE A DAY 12/24/2014 07/21/2015 Inactive Flagyl 500 mg tablet RxNorm: 378472 1 Tablet(s) PO TID 201412/20/2014 Inactive Flagyl 500 mg tablet RxNorm: 667521 1 Tablet(s) PO TID 201412/10/2014 Inactive warfarin 3 mg tablet RxNorm: 284276 TAKE ONE TABLET BY MOUTH DAILY 11/13/2014 01/29/2015 Inactive warfarin 3 mg tablet RxNorm: 113635 TAKE ONE TABLET BY MOUTH DAILY 11/13/2014 01/29/2015 Inactive warfarin 3 mg tablet RxNorm: 773186 TAKE ONE TABLET BY MOUTH DAILY 11/13/2014 03/04/2015 Inactive warfarin 3 mg tablet RxNorm: 426196 1 Tablet(s) PO daily 201403/04/2015 Inactive allopurinol 300 mg tablet RxNorm: 879628 1 Tablet(s) PO daily 11/11/2014 03/10/2015 Inactive hydrocodone 7.5 mg-acetaminophen 325 mg tablet RxNorm: 335518 1or2 or 2 Tablet(s) PO Q4-6H as needed pain 11/10/20142014 Inactive hydrocodone 7.5 mg-acetaminophen 325 mg tablet RxNorm: 596498 1or2 or 2 Tablet(s) PO Q4-6H as needed pain 10/15/20142014 Inactive hydrocodone 7.5 mg-acetaminophen 325 mg tablet RxNorm: 057512 1or2 or 2 Tablet(s) PO Q4-6H as needed pain 10/15/20142014 Inactive Kenalog 40 mg/mL suspension for injection RxNorm: 3243648 Milliliter(s) Inj 10/14/2014 10/14/2014 Inactive ceftriaxone 500 mg solution for injection RxNorm: 9490147 Inj 10/14/2014 10/14/2014 Inactive Zithromax Z-Chito 250 mg tablet RxNorm: 381057 1 Tablet(s) PO UD 10/14/2014 01/29/2015 Inactive jose cefdinir 300 mg capsule RxNorm: 321709 1 Capsule(s) PO BID 10/20/2014 Inactive Vitamin D2 50,000 unit capsule RxNorm: 309473 1 Capsule(s) PO weekly x 12 weeks 09/24/2014 09/23/2014 Inactive Vitamin D2 50,000 unit capsule RxNorm: 902295 1 Capsule(s) PO weekly x 12 weeks 09/24/2014 12/22/2014 Inactive warfarin 1 mg tablet RxNorm: 382264 TAKE 1/2 TABLET BY MOUTH DAILY WITH 3MG TABLET TO EQUAL 3.5MG DAILY 09/22/201404/2014 Inactive warfarin 1 mg tablet RxNorm: 449247 1/2 Tablet(s) PO daily 3.5mg 08/26/2014 2014 Inactive taking with a 3mg to make 3.5mg tablets Lasix 20 mg tablet RxNorm: 863166 1 Tablet(s) PO QDAY PRN 09/24/2014 Inactive Ok to fill 20mg, not 40mg as needed for swelling-take potassium when you take lasix buspirone 10 mg tablet RxNorm: 013665 1 Tablet(s) PO TID 201411/25/2014 Inactive takes it BID but if she feels anxious she takes one during the day Lasix 20 mg tablet RxNorm: 861495 1 Tablet(s) PO QDAY PRN 08/25/2014 Inactive as needed for swelling-take potassium when you take lasix warfarin 1 mg tablet RxNorm: 539505 1/2 Tablet(s) PO daily 3.5mg 08/15/2014 08/21/2014 Inactive taking with a 3mg to make 3.5mg tablets warfarin 3 mg tablet RxNorm: 454035 1 Tablet(s) PO daily 201410/11/2014 Inactive diltiazem 90 mg tablet RxNorm: 754770 1 Tablet(s) PO TID 201408/30/2015 Inactive warfarin 1 mg tablet RxNorm: 352720 1/2 Tablet(s) PO daily 3.5mg 08/05/2014 08/11/2014 Inactive taking with a 3mg to make 3.5mg tablets cyclobenzaprine 10 mg tablet RxNorm: 548782 1 Tablet(s) PO QHS 08/04/2014 11/01/2014 Inactive buspirone 10 mg tablet RxNorm: 276234 1 Tablet(s) PO QID 201408/21/2014 Inactive allopurinol 300 mg tablet RxNorm: 977728 1 Tablet(s) PO daily 08/04/2014 11/01/2014 Inactive clonazepam 0.5 mg tablet RxNorm: 186396 1 Tablet(s) PO daily 09/02/2014 Inactive omeprazole 20 mg capsule,delayed release RxNorm: 136627 1 Capsule(s) PO BID 08/04/2014 11/01/2014 Inactive atenolol 25 mg tablet RxNorm: 723371 1 Tablet(s) PO daily 201411/01/2014 Inactive warfarin 3 mg tablet RxNorm: 690015 1 Tablet(s) PO daily 201408/04/2014 Inactive diphenhydramine 2 % topical cream RxNorm: 6373916 1 Application TOP Q6 PRN 07/24/2014 01/29/2015 Inactive diltiazem 90 mg tablet RxNorm: 436463 1 Tablet(s) PO BID 201408/04/2014 Inactive cyclobenzaprine 10 mg tablet RxNorm: 319184 1 Tablet(s) PO QH 07/24/2014 08/03/2014 Inactive warfarin 2.5 mg tablet RxNorm: 869643 1 Tablet(s) PO daily 08/22/2014 Inactive [SAVINGS FOR NON-COVERED DRUGS -- BIN:[id number], PCN: ASPROD1, Group: XXXXX, ID# [id number], Questions: . THIS IS NOT INSURANCE.] losartan 25 mg tablet RxNorm: 296380 1 Tablet(s) PO daily 201401/29/2015 Inactive [SAVINGS FOR NON-COVERED DRUGS -- BIN:[id number], PCN: ASPROD1, Group: XXXXX, ID # [id number], Questions: . THIS IS NOT INSURANCE.] isosorbide mononitrate oral RxNorm: 6057 oral No Start Date Active diltiazem ER 360 mg tablet,extended release 24 hr RxNorm: 963324 1 Tablet(s) PO daily No Start Date Active benazepril 10 mg tablet RxNorm: 418506 1 Tablet(s) PO daily No Start Date 07/14/2014 Inactive lisinopril 10 mg tablet RxNorm: 195720 1 Tablet(s) PO daily No Start Date 04/24/2016 Inactive clonazepam 0.5 mg tablet RxNorm: 635409 1 Tablet(s) PO daily No Start Date 08/03/2014 Inactive diltiazem 90 mg tablet RxNorm: 686118 1 Tablet(s) PO daily No Start Date 07/23/2014 Inactive atenolol 25 mg tablet RxNorm: 019560 1 Tablet(s) PO daily No Start Date 08/03/2014 Inactive buspirone 10 mg tablet RxNorm: 394332 1 Tablet(s) PO QID No Start Date 08/03/2014 Inactive omeprazole 20 mg capsule,delayed release RxNorm: 933119 1 Capsule(s) PO BID No Start Date 08/03/2014 Inactive allopurinol 300 mg tablet RxNorm: 436092 1 Tablet(s) PO daily No Start Date 08/03/2014 Inactive Xarelto 20 mg tablet RxNorm: 3247513 1 Tablet(s) PO daily No Start Date 03/03/2015 Inactive warfarin 2 mg tablet RxNorm: 307755 1 Tablet(s) PO daily No Start Date 07/16/2014 Inactive cyanocobalamin (vit B-12) 1,000 mcg/mL injection solution RxNorm: 552630 1 Milliliter(s) Inj monthly No Start Date Inactive cyclobenzaprine 10 mg tablet RxNorm: 054529 1 Tablet(s) PO BID No Start Date 07/23/2014 Inactive Eliquis 2.5 mg tablet RxNorm: 6733629 1 Tablet(s) PO daily No Start Date 03/03/2015 Inactive Medication Administered Medication Codes Instructions Start Date Status Kenalog 40 mg/mL suspension for injection RxNorm: 3319990 1Milliliter 01/30/2015 No longer Active ceftriaxone 500 mg solution for injection RxNorm: 1847668 10/14/2014 No longer Active Kenalog 40 mg/mL suspension for injection RxNorm: 9667090 Milliliter 10/14/2014 No longer Active Immunizations Vaccine Codes Date Status Influenza CVX: 141 12/10/2015 completed Assessments Condition Codes Effective Dates Essential (primary) hypertension ICD-10: I10 ICD-9: 401.9 12/12/2017 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 ICD-10: Z79.01 ICD-9: V58.61 12/12/2017 Vascular dementia without behavioral disturbance ICD-10: F01.50 ICD-9: 290.40 12/12/2017 Other malaise ICD-10: R53.81 ICD-9: 780.79 12/12/2017 Low back pain ICD-10: M54.5 ICD-9: 724.2 09/05/2017 Paroxysmal atrial fibrillation ICD-10: I48.0 ICD-9: 427.31 [...] 486 10/14/2014 DYSPHAGIA, NOS ICD-9: 787.20 10/14/2014 Atrial fibrillation ICD-9: 427.31 2014 ESOPHAGEAL REFLUX ICD-9: 530.81 2014 VITAMIN D DEFICIENCY ICD-9: 268.9 2014 ESSENTIAL HYPERTENSION ICD-9: 401.9 09/19 SLEEP RELATED LEG CRAMPS ICD-9: 327.52 LONG-TERM USE ANTICOAGUL ICD-9: V58.61 DEPRESSIVE DISORDER NEC ICD-9: 311 2014 Skin irritation ICD-9: 709.9 08/04/2014 Reason For Visit Reason For Visit Effective Dates Notes fatigue 12/12/2017 fatigue 09/05/2017 hypertension 05/09/2017 hypertension [...] Metabolic Ord15 CALCIUM 9.0 mg/dL 02/21/2018 Pt Myh7612 PT 23.4 seconds 02/21/2018 Pt Qsx7955 INR 2.1 02/21/2018 Pt Muw0184 Low Intensity - 1.5-2.0 02/21/2018 Pt Uga1136 Mod intensity - 2.0-3.0 02/21/2018 Pt Fhh2120 Hi intensity - 3.0-4.0 02/21/2018 Metabolic Ord15 NA 139 mEq/L 01/15/2018 [...] Metabolic Ord15 CALCIUM 9.2 mg/dL 01/15/2018 Pt Rwh7057 PT 27.0 seconds 01/15/2018 Pt Evz6763 INR 2.5 01/15/2018 Pt Oyk2619 Low Intensity - 1.5-2.0 01/15/2018 Pt Dii0317 Mod intensity - 2.0-3.0 01/15/2018 Pt Yic9122 Hi intensity - 3.0-4.0 01/15/2018 Pt Bcp7799 PT 29.3 seconds 12/18/2017 Pt Ahp1644 INR 2.8 12/18/2017 Pt Jrq1441 Low Intensity - 1.5-2.0 12/18/2017 Pt Tbi0304 Mod intensity - 2.0-3.0 12/18/2017 Pt Tdl7517 Hi intensity - 3.0-4.0 12/18/2017 Metabolic Ord15 [...] Ord15 CALCIUM 9.7 mg/dL 12/18/2017 Comp Metabolic Qtz634 NA 138 mEq/L 09/29/2015 Comp Metabolic Zcz979 K 4.6 mEq/L 09/29/2015 Comp Metabolic Auf530 CL 102 mEq/L 09/29/2015 Comp Metabolic Egd850 CO2 28.0 mEq/L 09/29/2015 Comp Metabolic Irf423 ANION GAP 13 09/29/2015 Comp Metabolic Lia839 GLUCOSE 83 mg/dL 09/29/2015 Comp Metabolic Bys140 Creat 1.1 mg/dL 09/29/2015 Comp Metabolic Pej496 eGFR 52 ml/min/1.73m2 09/29/2015 Comp Metabolic Tku296 BUN 18 mg/dL 09/29/2015 Comp Metabolic Jxv836 B/C Ratio 16.7 Ratio 09/29/2015 Comp Metabolic Ush592 CALCIUM 9.6 mg/dL 09/29/2015 Comp Metabolic Rek454 ALK PHOS 188 U/L 09/29/2015 Comp Metabolic Cpn269 AST(SGOT) 19 U/L 09/29/2015 Comp Metabolic Tiz280 ALT(SGPT) 12 U/L 09/29/2015 Comp Metabolic Obb899 BILI T 0.6 mg/dL 09/29/2015 Comp Metabolic Vuk893 ALBUMIN 4.0 g/dL 09/29/2015 Comp Metabolic Yvs344 TPRO 6.6 g/dL 09/29/2015 Comp Metabolic Bfo656 GLOB 2.6 g/dL 09/29/2015 Comp Metabolic Xre363 A/G Ratio 1.5 Ratio 09/29/2015 Comp Metabolic Xkl376 Osmo 277 mOsmo 09/29/2015 Cbc With Differential Ord2 WBC 9.90 K/ul 09/29/2015 Cbc With Differential Ord2 RBC 3.64 M/ul 09/29/2015 Cbc With Differential Ord2 HGB 9.5 g/dl 09/29/2015 Cbc With Differential Ord2 Neut% 65.2 % 09/29/2015 Cbc With Differential Ord2 HCT 30.6 % 09/29/2015 Cbc With Differential Ord2 MCV 84.1 fl 09/29/2015 Cbc With Differential Ord2 Lymph% 14.2 % 09/29/2015 Cbc With Differential Ord2 MCH 26.1 pg 09/29/2015 Cbc With Differential Ord2 [place]% 18.3 % 09/29/2015 Cbc With Differential Ord2 [...] 1.41 K/ul 09/29/2015 Cbc With Differential Ord2 [place] ABS# 1.8 K/ul 09/29/2015 Cbc With Differential Ord2 Eos ABS# 0.2 K/ul 09/29/2015 Cbc With Differential Ord2 Baso ABS# 0.1 K/ul 09/29/2015 Comp Metabolic Tmi437 NA 134 mEq/L 09/22/2015 Comp Metabolic Luh516 K 4.7 mEq/L 09/22/2015 Comp Metabolic Yog619 CL 98 mEq/L 09/22/2015 Comp Metabolic Clg843 CO2 26.0 mEq/L 09/22/2015 Comp Metabolic Hhw637 ANION GAP 15 09/22/2015 Comp Metabolic Hah990 GLUCOSE 83 mg/dL 09/22/2015 Comp Metabolic Xvq344 Creat 1.1 mg/dL 09/22/2015 Comp Metabolic Enc706 eGFR 52 ml/min/1.73m2 09/22/2015 Comp Metabolic Qfa128 BUN 19 mg/dL 09/22/2015 Comp Metabolic Ass429 B/C Ratio 17.8 Ratio 09/22/2015 Comp Metabolic Wue882 CALCIUM 9.4 mg/dL 09/22/2015 Comp Metabolic Jyu356 ALK PHOS 182 U/L 09/22/2015 Comp Metabolic Zpa648 AST(SGOT) 30 U/L 09/22/2015 Comp Metabolic Xzp309 ALT(SGPT) 16 U/L 09/22/2015 Comp Metabolic Vsc522 BILI T 0.8 mg/dL 09/22/2015 Comp Metabolic Ptw230 ALBUMIN 3.9 g/dL 09/22/2015 Comp Metabolic Zqd088 TPRO 6.8 g/dL 09/22/2015 Comp Metabolic Pze328 GLOB 2.9 g/dL 09/22/2015 Comp Metabolic Sjc799 A/G Ratio 1.3 Ratio 09/22/2015 Comp Metabolic Nsf320 Osmo 270 mOsmo 09/22/2015 Cbc With Differential [...] 25.7 pg 09/22/2015 Cbc With Differential Ord2 [place]% 15.4 % 09/22/2015 Cbc With Differential Ord2 MCHC 30.9 pg 09/22/2015 Cbc With Differential Ord2 Eos% 0.7 % 09/22/2015 Cbc With Differential Ord2 PLT 345 K/ul 09/22/2015 Cbc With Differential Ord2 Baso% 0.5 % 09/22/2015 Cbc With Differential Ord2 RDW 18.5 % 09/22/2015 Cbc With Differential Ord2 Neut ABS# 7.16 K/ul 09/22/2015 Cbc With Differential Ord2 Lymph ABS# 1.81 K/ul 09/22/2015 Cbc With Differential Ord2 [place] ABS# 1.7 K/ul 09/22/2015 Cbc With Differential [...] 16.5 % 06/02/2015 Cbc With Differential Ord2 [place]% 16.6 % 06/02/2015 Cbc With Differential Ord2 [...] 1.74 K/ul 06/02/2015 Cbc With Differential Ord2 [place] ABS# 1.8 K/ul 06/02/2015 Cbc With Differential Ord2 Eos ABS# 0.1 K/ul 06/02/2015 Cbc With Differential Ord2 Baso ABS# 0.0 K/ul 06/02/2015 Cbc With Differential Ord2 New Analyzer Notice Please note new ref ranges starting 03-11-2015 due to implemntation of new five part differential hematolgy analyzer. 06/02/2015 Comp Metabolic Dib455 NA 132 mEq/L 06/02/2015 Comp Metabolic Maz731 K 4.4 mEq/L 06/02/2015 Comp Metabolic Zlc631 CL 94 mEq/L 06/02/2015 Comp Metabolic Sik158 CO2 26.0 mEq/L 06/02/2015 Comp Metabolic Bqp870 ANION GAP 16 06/02/2015 Comp Metabolic Ejm789 GLUCOSE 97 mg/dL 06/02/2015 Comp Metabolic Nzw630 Creat 1.2 mg/dL 06/02/2015 Comp Metabolic Hfu909 eGFR 46 ml/min/1.73m2 06/02/2015 Comp Metabolic Onj567 BUN 19 mg/dL 06/02/2015 Comp Metabolic Tzr363 B/C Ratio 15.8 Ratio 06/02/2015 Comp Metabolic Qva259 CALCIUM 9.4 mg/dL 06/02/2015 Comp Metabolic Rdy094 ALK PHOS 178 U/L 06/02/2015 Comp Metabolic Clb005 AST(SGOT) 32 U/L 06/02/2015 Comp Metabolic Byz819 ALT(SGPT) 31 U/L 06/02/2015 Comp Metabolic Bcd549 BILI T 0.6 mg/dL 06/02/2015 Comp Metabolic Mnj094 ALBUMIN 4.0 g/dL 06/02/2015 Comp Metabolic Zag279 TPRO 6.5 g/dL 06/02/2015 Comp Metabolic Tkk892 GLOB 2.5 g/dL 06/02/2015 Comp Metabolic Iwi427 A/G Ratio 1.6 Ratio 06/02/2015 Comp Metabolic Hux283 Osmo 267 mOsmo 06/02/2015 Pt Tfi9408 PT 21.8 seconds 06/02/2015 Pt Kpw8407 INR 2.0 06/02/2015 Pt Ddw4124 Low Intensity - 1.5-2.0 06/02/2015 Pt Tna2914 Mod intensity - 2.0-3.0 06/02/2015 Pt Snx6764 Hi intensity - 3.0-4.0 06/02/2015 B12 Fti587 B12 160.00 pg/ml 04/01/2015 Iron Ord72 Iron 39 ug/dl 04/01/2015 Vitamin D 25 Oh Aqe8800 VITAMIN D, 25 HYDROXY 61.20 ng/mL Comp Metabolic Tut665 NA 131 mEq/L 03/31/2015 Comp Metabolic Jcw467 K 5.3 mEq/L 03/31/2015 Comp Metabolic Bbh973 CL 97 mEq/L 03/31/2015 Comp Metabolic Ine676 CO2 24.0 mEq/L 03/31/2015 Comp Metabolic Edx595 ANION GAP 15 03/31/2015 Comp Metabolic Iyn078 GLUCOSE 84 mg/dL 03/31/2015 Comp Metabolic Hsh881 Creat 1.3 mg/dL 03/31/2015 Comp Metabolic Sso657 eGFR 42 ml/min/1.73m2 03/31/2015 Comp Metabolic Ath692 BUN 26 mg/dL 03/31/2015 Comp Metabolic Gye841 B/C Ratio 20.2 Ratio 03/31/2015 Comp Metabolic Ltm873 CALCIUM 9.4 mg/dL 03/31/2015 Comp Metabolic Ajy039 ALK PHOS 172 U/L 03/31/2015 Comp Metabolic Fhr443 AST(SGOT) 21 U/L 03/31/2015 Comp Metabolic Bco226 ALT(SGPT) 27 U/L 03/31/2015 Comp Metabolic Hli061 BILI T 0.5 mg/dL 03/31/2015 Comp Metabolic Nvb224 ALBUMIN 4.0 g/dL 03/31/2015 Comp Metabolic Ufd615 TPRO 6.8 g/dL 03/31/2015 Comp Metabolic Ykl100 GLOB 2.8 g/dL 03/31/2015 Comp Metabolic Vyq589 A/G Ratio 1.4 Ratio 03/31/2015 Comp Metabolic Ugg838 Osmo 267 mOsmo 03/31/2015 Cbc With Differential [...] 28.3 pg 03/31/2015 Cbc With Differential Ord2 [place]% 14.0 % 03/31/2015 Cbc With Differential Ord2 [...] 1.62 K/ul 03/31/2015 Cbc With Differential Ord2 [place] ABS# 1.6 K/ul 03/31/2015 Cbc With Differential Ord2 Eos ABS# 0.1 K/ul 03/31/2015 Cbc With Differential Ord2 Baso ABS# 0.0 K/ul 03/31/2015 Cbc With Differential Ord2 New Analyzer Notice Please note new ref ranges starting 03-11-2015 due to implemntation of new five part differential hematolgy analyzer. 03/31/2015 Tsh Ord6 hTSH II 1.87 uIU/mL 03/31/2015 Pt Qps7126 PT 36.9 seconds 03/31/2015 Pt Byl8208 INR 3.9 03/31/2015 Pt Sgt0450 Low Intensity - 1.5-2.0 03/31/2015 Pt Kxh8667 Mod intensity - 2.0-3.0 03/31/2015 Pt Emh2791 Hi intensity - 3.0-4.0 03/31/2015 Urine Culture Ucult Complete No Growth Day 2 11/10/2014 Urine Culture Ucult Preliminary No Growth Day 1 11/10/2014 Lipid Ord30 CHOL 216 mg/dL 09/19/2014 Lipid Ord30 HDL 78.0 mg/dl 09/19/2014 Lipid Ord30 TRIG 85 mg/dL 09/19/2014 Lipid Ord30 LDL 121 mg/dL 09/19/2014 Lipid Ord30 C/HDL 2.8 Ratio 09/19/2014 Vitamin D 25 Oh Xga7231 VITAMIN D, 25 HYDROXY 14.13 ng/mL Comp Metabolic Gpo738 NA 134 mEq/L 09/19/2014 Comp Metabolic Myg737 K 4.7 mEq/L 09/19/2014 Comp Metabolic Gru524 CL 98 mEq/L 09/19/2014 Comp Metabolic Zzo136 CO2 27.0 mEq/L 09/19/2014 Comp Metabolic Emc841 ANION GAP 14 09/19/2014 Comp Metabolic Bba858 GLUCOSE 94 mg/dL 09/19/2014 Comp Metabolic Ahm127 Creat 1.1 mg/dL 09/19/2014 Comp Metabolic Wxn156 eGFR 49 ml/min/1.73m2 09/19/2014 Comp Metabolic Ydx946 BUN 14 mg/dL 09/19/2014 Comp Metabolic Mha917 B/C Ratio 12.3 Ratio 09/19/2014 Comp Metabolic Rxk140 CALCIUM 9.7 mg/dL 09/19/2014 Comp Metabolic Kyx912 ALK PHOS 150 U/L 09/19/2014 Comp Metabolic Zuy527 AST(SGOT) 16 U/L 09/19/2014 Comp Metabolic Gxv688 ALT(SGPT) 9 U/L 09/19/2014 Comp Metabolic Ias009 BILI T 0.8 mg/dL 09/19/2014 Comp Metabolic Lyb553 ALBUMIN 3.9 g/dL 09/19/2014 Comp Metabolic Xww385 TPRO 6.8 g/dL 09/19/2014 Comp Metabolic Vic751 GLOB 2.9 g/dL 09/19/2014 Comp Metabolic Fet328 A/G Ratio 1.3 Ratio 09/19/2014 Comp Metabolic Vmn071 Osmo 268 mOsmo 09/19/2014 Cbc With Differential [...] With Differential Ord2 RDW 17.6 % 09/19/2014 Tsh Ord6 hTSH II 1.40 uIU/mL 09/19/2014 Pt Nwi5878 PT 29.1 seconds 09/19/2014 Pt Kbg2862 INR 2.9 09/19/2014 Pt Clk3198 Low Intensity - 1.5-2.0 09/19/2014 Pt Epg6306 Mod intensity - 2.0-3.0 09/19/2014 Pt Ohy8090 Hi intensity - 3.0-4.0 09/19/2014 Magnesium Ord90 [...] masses 04/25/2016 None Full Exam - General 1995 [...] Model/CDA Sections, Assigned to/Indira Ibanez SNOMED CT: 63444785 CPT-4: 66113Qmwzjed 12/10/2015 TRIAMCINOLONE ACET INJ NOS CPT-4: J3301 01/30/2015 URINALYSIS NONAUTO W/O SCOPE CPT-4: 46036 11/07/2014 ROCEPHIN, PER 250 MG CPT-4: J0696 10/14/2014 TRIAMCINOLONE ACET INJ NOS CPT-4: J3301 10/14/2014 Vital Signs Date Vital 12/12/2017 Blood Pressure 1: 130/60 Code : 8480-6 BMI: 25.2 Code : 72473-8 Heart Rate 1 : 60 bpm Height: 5'2" SpO2: 98% Weight: 138 lbs 09/05/2017 Blood Pressure 1: 108/46 Code : 8480-6 BMI: 24.0 Code : 94713-6 Heart Rate 1 : 70 bpm Height: 5'2" SpO2: 96% Weight: 131 lbs 05/09/2017 Blood Pressure 1: 122/82 Code : 8480-6 BMI: 25.2 Code : 16976-1 Heart Rate 1 : 72 bpm Height: 5'2" SpO2: 95% Weight: 138 lbs 03/07/2017 Blood Pressure 1: 108/52 Code : 8480-6 BMI: 27.6 Code : 54895-5 Heart Rate 1 : 72 bpm Height: 5'2" SpO2: 96% Weight: 151 lbs 01/24/2017 Blood Pressure 1: 126/60 Code : 8480-6 BMI: 27.1 Code : 56820-3 Heart Rate 1 : 60 bpm Height: [...] Code : 8480-6 BMI: 26.8 Code : 45611-7 Heart Rate 1 : 59 bpm Height: 5'2" SpO2: 97% Weight: 146 lbs 8 oz 05/10/2016 Blood Pressure 1: 120/56 Code : 8480-6 BMI: 27.1 Code : 10173-7 Heart Rate 1 : 63 bpm Height: 5'2" SpO2: 97% Weight: 148 lbs 04/25/2016 Blood Pressure 1: 134/66 Code : 8480-6 BMI: 24.9 Code : 68570-4 Heart Rate 1 : 118 bpm Height: 5'2" SpO2: 93% Temperature: 36.8 (C) / 98.3 (F) Weight: 136 lbs 01/14/2016 Blood Pressure 1: 132/78 Code : 8480-6 BMI: 25.6 Code : 47306-4 Heart Rate 1 : 97 bpm Height: 5'2" SpO2: 95% Weight: 140 lbs 12/10/2015 Blood Pressure 1: 118/72 Code : 8480-6 BMI: 26.2 Code : 82297-4 Heart Rate 1 : 68 bpm Height: 5'2" SpO2: 95% Weight: 143 lbs 11/12/2015 Blood Pressure 1: 140/80 Code : 8480-6 BMI: 25.6 Code : 00699-0 Heart Rate 1 : 77 bpm Height: 5'2" SpO2: 93% Weight: 140 lbs 10/08/2015 Blood Pressure 1: 132/60 Code : 8480-6 BMI: 26.2 Code : 79985-0 Heart Rate 1 : 77 bpm Height: 5'2" SpO2: 96% Weight: 143 lbs 09/29/2015 Blood Pressure 1: 130/62 Code : 8480-6 BMI: 27.1 Code : 47352-9 Heart Rate 1 : 86 bpm Height: 5'2" SpO2: 93% Weight: 148 lbs 09/22/2015 Blood Pressure 1: 164/72 Code : 8480-6 BMI: 28.2 Code : 13780-3 Heart Rate 1 : 79 bpm Height: 5'2" SpO2: 92% Weight: 154 lbs 07/21/2015 Blood Pressure 1: 124/70 Code : 8480-6 BMI: 24.5 Code : 02783-4 Heart Rate 1 : 71 bpm Height: 5'2" SpO2: 98% Weight: 134 lbs 06/23/2015 Blood Pressure 1: 122/68 Code : 8480-6 BMI: 25.4 Code : 28096-6 Heart Rate 1 : 78 bpm Height: 5'2" SpO2: 92% Weight: 139 lbs 06/12/2015 Blood Pressure 1: 154/62 Code : 8480-6 BMI: 27.4 Code : 26028-3 Heart Rate 1 : 87 bpm Height: 5'2" SpO2: 94% Weight: 150 lbs 06/02/2015 Blood Pressure 1: 140/68 Code : 8480-6 Heart Rate 1: 90 bpm SpO2: 91% Weight: 142 lbs 03/31/2015 Blood Pressure 1: 120/56 Code : 8480-6 BMI: 23.6 Code : 18556-4 Heart Rate 1 : 82 bpm Height: 5'2" SpO2: 98% Weight: 129 lbs 01/30/2015 Blood Pressure 1: 108/62 Code : 8480-6 BMI: 22.1 Code : 12935-9 Heart Rate 1 : 8299 bpm Height: 5'2 " SpO2: 99% Weight: 121 lbs 12/22/2014 Blood Pressure 1: 130/70 Code : 8480-6 BMI: 21.8 Code : 97670-6 Heart Rate 1 : 106 bpm Height: 5'2" SpO2: 98% Weight: 119 lbs 10/29/2014 Blood Pressure 1: 118/58 Code : 8480-6 BMI: 23.2 Code : 43088-5 Heart Rate 1 : 74 bpm Height: 5'2" SpO2: 93% Weight: 127 lbs 10/14/2014 Blood Pressure 1: 128/64 Code : 8480-6 BMI: 22.9 Code : 51741-8 Heart Rate 1 : 79 bpm Height: 5'2" SpO2: 93% Temperature: 35.9 (C) / 96.6 (F) Weight: 125 lbs 09/19/2014 Blood Pressure 1: 132/72 Code : 8480-6 BMI: 22.9 Code : 84437-8 Heart Rate 1 : 84 bpm Height: 5'2" SpO2: 96% Weight: 125 lbs 08/22/2014 Blood Pressure 1: 124/72 Code : 8480-6 BMI: 23.0 Code : 54076-6 Heart Rate 1 : 64 bpm Height: 5'2" Weight: 126 lbs 08/04/2014 Blood Pressure 1: 126/86 Code : 8480-6 BMI: 23.6 Code : 33355-5 Height: 5'2" Respiratory Rate: 20 bpm Weight: 129 lbs 07/24/2014 Blood Pressure 1: 116/72 Code : 8480-6 BMI: 23.6 Code : 75871-5 Heart Rate 1 : 74 bpm Height: 5'2" Weight: 129 lbs 07/15/2014 Blood Pressure 1: 132/78 Code : 8480-6 BMI: 24.1 Code : 96640-2 Heart Rate 1 : 74 bpm Height: 5'2" SpO2: 97% Weight: 132 lbs Functional Status No Functional Status data History of Present Illness Symptom Name Status Result Effective Date Notes fatigue Onset and Resolution sudden in onset [...] data Encounters Encounter Performer Location Codes Date ([id number]) [id number] EST. PATIENT, LEVEL IV Diagnosis: Essential (primary) hypertension[ICD10: I10] Diagnosis: 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[ICD10: Z79.01] Diagnosis: Other malaise[ICD10: R53.81] Diagnosis: Vascular dementia without behavioral disturbance[ICD10: F01.50] Veronica Daigle MD, [facility] CPT-4: 52926 12/12/2017 ([id number]) 74859 EST. PATIENT, LEVEL IV Diagnosis: Paroxysmal atrial fibrillation[ICD10: I48.0] Diagnosis: Essential (primary) hypertension[ICD10: I10] Diagnosis: 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[ICD10: Z79.01] Diagnosis: Low back pain[ICD10: M54.5] Veronica Daigle MD, [facility] CPT- 4: 26286 09/05/2017 ([id number]) 05844 EST. PATIENT, LEVEL IV Diagnosis: Essential (primary) hypertension[ICD10: I10] Diagnosis: Generalized anxiety disorder[ICD10: F41.1] Diagnosis: Major depressive disorder, single episode, unspecified[ICD10: F32.9] Diagnosis: Localized edema[ICD10: R60.0] Veronica Daigle MD, [facility] CPT- 4: 69416 05/09/2017 ([id number]) 90435 EST. PATIENT, LEVEL IV Diagnosis: Essential (primary) hypertension[ICD10: I10] Diagnosis: Paroxysmal atrial fibrillation[ICD10: I48.0] Diagnosis: Generalized anxiety disorder[ICD10: F41.1] Diagnosis: Localized edema[ICD10: R60.0] Veronica Daigle MD, [facility] CPT- 4: 06922 03/07/2017 ([id number]) 81421 EST. PATIENT, LEVEL IV Diagnosis: Generalized anxiety disorder[ICD10: F41.1] Diagnosis: Major depressive disorder, single episode, unspecified[ICD10: F32.9] Diagnosis: Essential (primary) hypertension[ICD10: I10] Diagnosis: Paroxysmal atrial fibrillation[ICD10: I48.0] Merle Daigle MD, [facility] CPT-4: 74916 01/24/2017 [id number] EST. PATIENT, LEVEL IV Diagnosis: Other chest pain[ICD10: R07.89] Diagnosis: Other malaise[ICD10: R53.81] Opal Daigle MD, [facility] CPT-4 : 82249 09/29/2016 ([id number]) 19364 EST. PATIENT, LEVEL IV Diagnosis: Essential (primary) hypertension[ICD10: I10] Diagnosis: Paroxysmal atrial fibrillation[ICD10: I48.0] Diagnosis: Localized edema[ICD10: R60.0] Diagnosis: Generalized anxiety disorder[ICD10: F41.1] Diagnosis: Low back pain[ICD10: M54.5] Merle Daigle MD, [facility] CPT-4: 72282 09/13/2016 ([id number]) 01012 EST. PATIENT, LEVEL III Diagnosis: Essential (primary) hypertension[ICD10: I10] Diagnosis: Paroxysmal atrial fibrillation[ICD10: I48.0] Merle Daigle MD, [facility] CPT-4: 22528 05/31/2016 ([id number]) 99887 EST. PATIENT, LEVEL III Diagnosis: Essential (primary) hypertension[ICD10: I10] Diagnosis: Localized edema[ICD10: R60.0] Merle Daigle MD, [facility] CPT-4: 03366 05/10/2016 ([id number]) 86378 EST. PATIENT, LEVEL IV Diagnosis: Paroxysmal atrial fibrillation[ICD10: I48.0] Diagnosis: Essential (primary) hypertension[ICD10: I10] Diagnosis: Generalized anxiety disorder[ICD10: F41.1] Merle Daigle MD, [facility] CPT-4: 62443 04/25/2016 ([id number]) 55878 EST. PATIENT, LEVEL IV Diagnosis: Generalized anxiety disorder[ICD10: F41.1] Diagnosis: Essential (primary) hypertension[ICD10: I10] Diagnosis: Paroxysmal atrial fibrillation[ICD10: I48.0] Diagnosis: Localized edema[ICD10: R60.0] Diagnosis: Acute recurrent maxillary sinusitis[ICD10: J01.01] Merle Daigle MD, [facility] CPT-4: 15729 01/14/2016 ([id number]) 58482 EST. PATIENT, LEVEL IV Diagnosis: Essential (primary) hypertension[ICD10: I10] Diagnosis: Generalized anxiety disorder[ICD10: F41.1] Diagnosis: Localized edema[ICD10: R60.0] Diagnosis: Encounter for immunization[ICD10: Z23] [facility] CPT-4: 15764 12/10/2015 ([id number]) 86538 EST. PATIENT, LEVEL III Diagnosis: Essential (primary) hypertension[ICD10: I10] Diagnosis: Localized edema[ICD10: R60.0] Merle Daigle MD, [facility] CPT-4: 92307 11/12/2015 ([id number]) 04541 EST. PATIENT, LEVEL III Diagnosis: Essential (primary) hypertension[ICD10: I10] Diagnosis: Localized edema[ICD10: R60.0] Merle Daigle MD, [facility] CPT-4: 04228 10/08/2015 ([id number]) 99606 EST. PATIENT, LEVEL III Diagnosis: Localized edema[ICD10: R60.0] Diagnosis: Essential (primary) hypertension[ICD10: I10] Merle Daigle MD, [facility] CPT-4: 84113 09/29/2015 ([id number]) 89887 EST. PATIENT, LEVEL IV Diagnosis: Localized edema[ICD10: R60.0] Diagnosis: Essential (primary) hypertension[ICD10: I10] Diagnosis: Paroxysmal atrial fibrillation[ICD10: I48.0] Merle Daigle MD, [facility] CPT-4: 54424 09/22/2015 ([id number]) 38718 EST. PATIENT, LEVEL III Diagnosis: Essential (primary) hypertension[ICD10: I10] Diagnosis: Paroxysmal atrial fibrillation[ICD10: I48.0] Merle Daigle MD, [facility] CPT-4: 09684 07/21/2015 ([id number]) 15894 EST. 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 PATIENT, LEVEL IV Diagnosis: Essential (primary) hypertension[ICD10: I10] Diagnosis: Paroxysmal atrial fibrillation[ICD10: I48.0] Diagnosis: Localized edema[ICD10: R60.0] Diagnosis: Encounter for therapeutic drug level monitoring[ICD10: Z51.81] Merle Daigle MD, [facility] CPT-4: 38219 06/02/2015 ([id number]) 42597 EST. PATIENT, LEVEL IV Diagnosis: Essential (primary) hypertension[ICD10: I10] Diagnosis: Vitamin D deficiency, unspecified[ICD10: E55.9] Diagnosis: Major depressive disorder, single episode, unspecified[ICD10: F32.9] Diagnosis: Paroxysmal atrial fibrillation[ICD10: I48.0] Diagnosis: group home (current) use of anticoagulants[ICD10: Z79.01] Merle Daigle MD , [facility] CPT-4: 53263 03/31/2015 ([id number]) 31131 EST. PATIENT, LEVEL III Diagnosis: Essential (primary) hypertension[ICD10: I10] Diagnosis: Allergic rhinitis due to pollen[ICD10: J30.1] Merle Daigle MD, [facility] CPT-4: 03642 01/30/2015 10028 EST. PATIENT, LEVEL III Diagnosis: Localized edema[ICD10: R60.0] Diagnosis: Diarrhea, unspecified[ICD10: R19.7] Veronica Daigle MD, [facility] CPT-4: 48573 12/22/[id number]) 10537 EST. PATIENT, LEVEL IV Diagnosis: DYSPHAGIA, PHARYNGEAL[ICD9: 787.23] Diagnosis: Low back pain[ICD9: 724.2] Diagnosis: Cough[ICD9: 786.2] Diagnosis: Anticoagulated on Coumadin[ICD9: V58.83] Diagnosis: MUSCLE WEAKNESS-GENERAL[ICD9: 728.87] Diagnosis: EDEMA[ICD9: 782.3] Veronica Daigle MD, [facility] CPT-4: 43341 10/29/2014 [id number]) 60621 EST. PATIENT, LEVEL IV Diagnosis: Low back pain[ICD9: 724.2] Diagnosis: Pneumonia[ICD9: 486] Diagnosis: Cough[ICD9: 786.2] Diagnosis: Anticoagulated on Coumadin[ICD9: V58.83] Diagnosis: DYSPHAGIA, NOS[ICD9: 787.20] Diagnosis: MUSCLE WEAKNESS-GENERAL[ICD9: 728.87] Merle Daigle MD, [facility] CPT-4: 77716 10/14/2014 ([id number]) [id number] EST. PATIENT, LEVEL IV Diagnosis: ESSENTIAL HYPERTENSION[ICD9: 401.9] Diagnosis: ESOPHAGEAL REFLUX[ICD9: 530.81] Diagnosis: SLEEP RELATED LEG CRAMPS[ICD9: 327.52] Diagnosis: Atrial fibrillation[ICD9: 427.31] Diagnosis: Anticoagulated on Coumadin[ICD9: V58.83] Diagnosis: VITAMIN D DEFICIENCY[ICD9: 268.9] Merle Daigle MD, [facility] CPT-4: 87070 09/19/2014 ([id number]) [id number] EST. PATIENT, LEVEL III Diagnosis: EDEMA[ICD9: 782.3] Diagnosis: LONG-TERM USE ANTICOAGUL[ICD9: V58.61] Merle Daigle MD, [facility] CPT-4: 74220 08/22/2014 ([id number]) [id number] EST. PATIENT, LEVEL IV Diagnosis: Skin irritation[ICD9: 709.9] Diagnosis: ESSENTIAL HYPERTENSION[ICD9: 401.9] Diagnosis: Anticoagulated on Coumadin[ICD9: V58.83] Diagnosis: DEPRESSIVE DISORDER NEC[ICD9: 311] Yumiko Daigle MD, [facility] CPT-4: 23824 08/04/2014 ([id number]) 16098 EST. PATIENT, LEVEL III Diagnosis: Skin irritation[ICD9: 709.9] Veronica Daigle MD, [facility] CPT- 4: 03465 07/24/2014 ([id number]) OFFICE/OUTPATIENT VISIT NEW Diagnosis: ESSENTIAL HYPERTENSION[ICD9: 401.9] Diagnosis: COUGH[ICD9: 786.2] Diagnosis: Atrial fibrillation[ICD9: 427.31] Diagnosis: LONG-TERM USE ANTICOAGUL[ICD9: V58.61] Diagnosis: DEPRESSIVE DISORDER NEC[ICD9: 311] Veronica Daigle MD, [facility] CPT-4: 33186 07/15/2014 Plan of Care Planned Activity Notes Codes Status Date Appointment: Veronica Daigle WPtel: [address] [place], [place] [id number] (15 min) Moderate 02/01/2018 Appointment: Veronica Daigle WPtel: [id number] (15 min) Moderate 01/16/2018 Visit Plan: Hypertension [...] resistant to the idea of going to NH. She wants to stay in her home, however she is in need of more care in her home, which she cannot afford to pay for at this time. 12/12/2017 Appointment: Veronica Daigle WPtel: [phone] [facility] (15 min) Moderate 12/12/2017 Patient Education: Patient [...] had her pain medication stolen by a intensive care unit nurse through home health - i have given pt a script for 50 pills to get her through for when she can get her next RX for her pain medication. 09/05/2017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
[2018-04-19 00:09] LABS: CALCIUM 10.3 MG/DL (8.5-10.1); CREATININE SERUM 1.26 MG/DL (0.60-1.30); MAGNESIUM 2.1 MG/DL (1.8-2.4); POTASSIUM 4.4 MMOL/L (3.6-5.0)
[2018-04-19 00:10] LABS: ALBUMIN 4.1 GM/DL (3.2-4.5); BILIRUBIN,TOTAL 0.3 MG/DL (0.1-1.0); TOTAL PROTEIN 7.2 GM/DL (6.4-8.2)
--- NOTE | 2018-04-19 00:10 | NUR ---
Report to [facility]
--- OUTSIDE RECORDS SUMMARY | 2018-04-19 00:11 | XMS REPORT | CCD ---
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 Name Role Phone PP Unavailable CCM Unavailable Summary Purpose Interface Exchange Insurance Providers Payer name Policy type / Coverage type Covered green party ID Effective Begin Date Effective End Date WPS Medicare Part B Medicare Part B [id number] Unknown Family history Mother Diagnosis Age At Onset Hypertension Unknown Heart Attack Unknown Social History Social History Element Codes Description Effective Dates Marital status Unknown 07/15/2014 Marital status Unknown 07/15/2014 Number of children Unknown 0 07/15/2014 Number of children Unknown 0 07/15/2014 Employment Unknown Retired 07/15/2014 Employment Unknown Retired 07/15/[address]: 314124603 Has never smoked or chewed tobacco 07/15/[address]: 650118671 Has never smoked or chewed tobacco 07/15/[address]: 303071941 Never drinks alcohol 07/15/[address]: 273249733 Never drinks alcohol 07/15/2014 Allergies, Adverse Reactions, Alerts Substance Reaction Codes Entered Date Inactivated Date Status * NO KNOWN FOOD ALLERGIES Unknown 07/15/2014 No Inactive Date Active SULFA(SULFONAMIDE ANTIBIOTICS) Unknown 07/15/2014 No Inactive Date Active Past Medical History Illness Codes Condition Status Onset Date Resolved Date Essential (primary) hypertension ICD-9: 401.9 ICD-10: I10 Active 01/13/2016 Unknown USP (current) use of anticoagulants ICD-9: V58.61 ICD-10: [...] hypertension ICD-9: 401.9 ICD-10: I10 01/13/2016 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 ICD-9: V58.61 ICD-10: [...] hydrocodone 7.5 mg-acetaminophen 325 mg tablet RxNorm: 715746 1 Tablet(s) PO daily as needed pain 02/01/20182018 Active Xanax 0.25 mg tablet RxNorm: 711576 1 Tablet(s) PO TID as needed anxiety 01/01/2018 01/20/2018 Inactive hydrocodone 7.5 mg-acetaminophen 325 mg tablet RxNorm: 119403 1 Tablet(s) PO daily as needed pain 12/12/20172017 Inactive cyanocobalamin (vit B-12) 1,000 mcg/mL injection solution RxNorm: 965531 INJECT 1 ML INTRAMUSCULARLY 2 TIMES A MONTH FOR 2 MONTHS, THEN ONCE A MONTH THEREAFTER 11/28/2017 01/22/2018 Inactive hydrocodone 7.5 mg-acetaminophen 325 mg tablet RxNorm: 573448 1-2 Tablet(s) PO Q4- 6H as needed pain 11/21/2017 12/11/2017 Inactive Lasix 40 mg tablet RxNorm: 814484 TAKE ONE TABLET BY MOUTH DAILY 10/23/2017 04/20/2018 Active Lexapro 5 mg tablet RxNorm: 756146 TAKE ONE TABLET BY MOUTH EVERY EVENING 10/23/2017 12/21/2017 Inactive buspirone 10 mg tablet RxNorm: 827303 TAKE ONE TABLET BY MOUTH THREE TIMES A DAY 10/02/2017 02/28/2018 Active omeprazole 20 mg capsule,delayed release RxNorm: 988033 TAKE ONE CAPSULE BY MOUTH TWICE A DAY 09/13/2017 03/11/2018 Active Levaquin 750 mg tablet RxNorm: 110491 1 tab every other day for 5 doses 1 Tablet(s ) PO 08/29/2017 08/28/2017 Inactive Levaquin 750 mg tablet RxNorm: 628873 1 tab every other day for 5 doses 1 Tablet(s ) PO 08/29/2017 09/02/2017 Inactive potassium chloride ER 10 mEq tablet,extended release RxNorm: 721600 TAKE TWO TABLETS BY MOUTH THREE TIMES A DAY 08/28/2017 12/25/2017 Inactive hydrocodone 7.5 mg-acetaminophen 325 mg tablet RxNorm: 281321 1-2 Tablet(s) PO Q4- 6H as needed pain 08/28/2017 09/26/2017 Inactive metoprolol tartrate 25 mg tablet RxNorm: 740121 TAKE 1/2 TABLET BY MOUTH TWO TIMES A DAY 07/25/2017 07/19/2018 Active Lexapro 5 mg tablet RxNorm: 163678 TAKE ONE TABLET BY MOUTH EVERY EVENING 07/21/2017 10/18/2017 Inactive hydrocodone 7.5 mg-acetaminophen 325 mg tablet RxNorm: 174409 1-2 Tablet(s) PO Q4- 6H as needed pain 07/19/2017 08/17/2017 Inactive hydrocodone 7.5 mg-acetaminophen 325 mg tablet RxNorm: 632851 1-2 Tablet(s) PO Q4- 6H as needed pain 07/03/2017 07/18/2017 Inactive hydrocodone 7.5 mg-acetaminophen 325 mg tablet RxNorm: 652361 1-2 Tablet(s) PO Q4- 6H as needed pain 05/25/2017 06/23/2017 Inactive cyanocobalamin (vit B-12) 1,000 mcg/mL injection solution RxNorm: 182068 INJECT 1 ML INTRAMUSCULARLY 2 TIMES A MONTH FOR 2 MONTHS, THEN ONCE A MONTH THEREAFTER 05/19/2017 08/10/2017 Inactive warfarin 5 mg tablet RxNorm: 251460 TAKE ONE TABLET BY MOUTH DAILY 04/26/2017 04/20/2018 Active buspirone 10 mg tablet RxNorm: 310219 TAKE ONE TABLET BY MOUTH THREE TIMES A DAY 04/26/2017 09/22/2017 Inactive Xanax 0.25 mg tablet RxNorm: 767276 1 Tablet(s) PO TID as needed anxiety 04/17/2017 05/14/2017 Inactive Levaquin 500 mg tablet RxNorm: 756069 1 Tablet(s) PO Q72H x3 doses 04/11/2017 04/10/2017 Inactive Levaquin 500 mg tablet RxNorm: 942309 1 Tablet(s) PO Q72H x3 doses 04/11/2017 07/03/2017 Inactive potassium chloride ER 10 mEq tablet,extended release RxNorm: 108264 TAKE TWO TABLETS BY MOUTH THREE TIMES A DAY 03/27/2017 08/23/2017 Inactive Tamiflu 75 mg capsule RxNorm: 765941 1 Capsule(s) PO BID 201707/03/2017 Inactive Zofran 4 mg tablet RxNorm: 463090 1 Tablet(s) PO QID as needed nausea 03/23/2017 06/20/2017 Inactive Zofran 4 mg tablet RxNorm: 033317 1 Tablet(s) PO QID as needed nausea 03/23/2017 03/22/2017 Inactive Tamiflu 75 mg capsule RxNorm: 877923 1 Capsule(s) PO BID 201703/22/2017 Inactive lisinopril 10 mg tablet RxNorm: 775435 TAKE ONE-HALF TABLET BY MOUTH DAILY 03/10/2017 06/02/2018 Active metolazone 5 mg tablet RxNorm: 241959 1 Tablet(s) PO TIW 201703/01/2018 Active hydrocodone 7.5 mg-acetaminophen 325 mg tablet RxNorm: 499078 1-2 Tablet(s) PO Q4- 6H as needed pain 02/23/2017 05/24/2017 Inactive omeprazole 20 mg capsule,delayed release RxNorm: 485009 Capsule(s) TAKE ONE CAPSULE BY MOUTH TWICE A DAY 02/08/2017 Inactive metolazone 5 mg tablet RxNorm: 723910 TAKE 1 TABLET BY MOUTH TWICE WEEKLY 02/08/2017 03/06/2017 Inactive Lexapro 5 mg tablet RxNorm: 799991 1 Tablet(s) PO QPM 201603/06/2017 Inactive hydrocodone 7.5 mg-acetaminophen 325 mg tablet RxNorm: 098587 1-2 Tablet(s) PO Q4- 6H as needed pain 01/16/2017 02/22/2017 Inactive Lasix 40 mg tablet RxNorm: 495678 TAKE ONE TABLET BY MOUTH DAILY 01/11/2017 10/07/2017 Inactive metoprolol tartrate 25 mg tablet RxNorm: 373636 TAKE 1/2 TABLET BY MOUTH TWO TIMES A DAY 01/11/2017 07/09/2017 Inactive allopurinol 300 mg tablet RxNorm: 871808 TAKE ONE TABLET BY MOUTH DAILY 01/09/2017 06/07/2017 Inactive hydrocodone 7.5 mg-acetaminophen 325 mg tablet RxNorm: 656784 1-2 Tablet(s) PO Q4- 6H as needed pain 12/06/2016 01/15/2017 Inactive lisinopril 10 mg tablet RxNorm: 103588 TAKE ONE-HALF TABLET BY MOUTH DAILY 12/02/2016 03/09/2017 Inactive buspirone 10 mg tablet RxNorm: 038775 TAKE ONE TABLET BY MOUTH THREE TIMES A DAY 10/25/2016 01/22/2017 Inactive buspirone 10 mg tablet RxNorm: 551748 TAKE ONE TABLET BY MOUTH THREE TIMES A DAY 10/25/2016 10/24/2016 Inactive hydrocodone 7.5 mg-acetaminophen 325 mg tablet RxNorm: 757343 1-2 or 2 Tablet(s) PO Q4-6H as needed pain 10/25/20162016 Inactive cyanocobalamin (vit B-12) 1,000 mcg/mL injection solution RxNorm: 709251 INJECT 1 ML INTRAMUSCULARLY 2 TIMES A MONTH FOR 2 MONTHS, THEN ONCE A MONTH THEREAFTER 10/24/2016 02/12/2017 Inactive metolazone 5 mg tablet RxNorm: 153878 TAKE 1 TABLET BY MOUTH TWICE WEEKLY 09/23/2016 01/12/2017 Inactive hydrocodone 7.5 mg-acetaminophen 325 mg tablet RxNorm: 634600 1-2 or 2 Tablet(s) PO Q4-6H as needed pain 09/13/20162016 Inactive Keflex 500 mg capsule RxNorm: 333773 1 Capsule(s) PO TID 201609/15/2016 Inactive Take with a probiotic BID Keflex 500 mg capsule RxNorm: 472769 1 Capsule(s) PO TID 201609/08/2016 Inactive Take with a probiotic BID metoprolol tartrate 25 mg tablet RxNorm: 081006 TAKE 1/2 TABLET BY MOUTH TWO TIMES A DAY 09/07/2016 01/04/2017 Inactive potassium chloride ER 10 mEq tablet,extended release RxNorm: 910014 TAKE TWO TABLETS BY MOUTH THREE TIMES A DAY 09/01/2016 02/27/2017 Inactive hydrocodone 7.5 mg-acetaminophen 325 mg tablet RxNorm: 639928 1 or 2 Tablet(s) PO Q4-6H as needed pain 08/31/20162016 Inactive omeprazole 20 mg capsule,delayed release RxNorm: 973259 TAKE ONE CAPSULE BY MOUTH TWICE A DAY 08/24/2016 02/07/2017 Inactive hydrocodone 7.5 mg-acetaminophen 325 mg tablet RxNorm: 626707 1 or 2 Tablet(s) PO Q4-6H as needed pain 08/05/20162016 Inactive lisinopril 10 mg tablet RxNorm: 569169 TAKE ONE-HALF TABLET BY MOUTH DAILY 07/28/2016 12/01/2016 Inactive hydrocodone 7.5 mg-acetaminophen 325 mg tablet RxNorm: 288194 1 or 2 Tablet(s) PO Q4-6H as needed pain 07/05/20162016 Inactive allopurinol 300 mg tablet RxNorm: 296297 TAKE ONE TABLET BY MOUTH DAILY 06/16/2016 12/12/2016 Inactive metoprolol tartrate 25 mg tablet RxNorm: 364782 TAKE 1/2 TABLET BY MOUTH TWO TIMES A DAY 06/16/2016 08/14/2016 Inactive buspirone 10 mg tablet RxNorm: 033235 TAKE ONE TABLET BY MOUTH THREE TIMES A DAY 06/15/2016 10/12/2016 Inactive hydrocodone 7.5 mg-acetaminophen 325 mg tablet RxNorm: 515475 1 or 2 Tablet(s) PO Q4-6H as needed pain 06/07/20162016 Inactive metoprolol tartrate 25 mg tablet RxNorm: 767913 1/2 Tablet(s) PO QPM 05/10/2016 06/08/2016 Inactive lisinopril 10 mg tablet RxNorm: 083948 1/2 Tablet(s) PO daily 04/26/2016 07/27/2016 Inactive hydrocodone 7.5 mg-acetaminophen 325 mg tablet RxNorm: 737275 1 or 2 Tablet(s) PO Q4-6H as needed pain 04/25/20162016 Inactive lisinopril 10 mg tablet RxNorm: 137528 1/2 Tablet(s) PO daily 04/25/2016 04/25/2016 Inactive metoprolol tartrate 25 mg tablet RxNorm: 519377 1/2 Tablet(s) PO BID 04/25/2016 05/09/2016 Inactive allopurinol 300 mg tablet RxNorm: 049478 TAKE ONE TABLET BY MOUTH DAILY 04/19/2016 06/15/2016 Inactive metolazone 5 mg tablet RxNorm: 117010 TAKE 1 TABLET BY MOUTH TWICE WEEKLY 04/19/2016 09/05/2016 Inactive potassium chloride ER 10 mEq tablet,extended release RxNorm: 817864 2 Tablet(s) PO TID 03/21/2016 08/17/2016 Inactive warfarin 5 mg tablet RxNorm: 554601 1 Tablet(s) PO daily TAKE ONE TABLET BY MOUTH DAILY 03/21/2016 03/15/[address] Echevarria manages potassium chloride ER 10 mEq tablet,extended release(part/ cryst) RxNorm: 5496238 2 Tablet(s) PO TID 03/11/2016 03/20/2016 Inactive Xanax 0.25 mg tablet RxNorm: 541640 1 Tablet(s) PO TID as needed anxiety 03/10/2016 04/06/2016 Inactive Xanax 0.25 mg tablet RxNorm: 747168 1 Tablet(s) PO TID as needed anxiety 03/10/2016 12/31/2017 Inactive hydrocodone 7.5 mg-acetaminophen 325 mg tablet RxNorm: 245958 1 or 2 Tablet(s) PO Q4-6H as needed pain 02/26/20162016 Inactive Flonase Allergy Relief 50 mcg/actuation nasal spray, suspension RxNorm: 3233969 1 [place] NASAL each nare daily 01/19/2016 03/18/2016 Inactive cefdinir 300 mg capsule RxNorm: 516149 1 Capsule(s) PO BID 01/23/2016 Inactive take probiotic BID x 7 days Flonase Allergy Relief 50 mcg/actuation nasal spray, suspension RxNorm: 0069694 1 [place] NASAL each nare daily 01/19/2016 01/18/2016 Inactive allopurinol 300 mg tablet RxNorm: 181864 TAKE ONE TABLET BY MOUTH DAILY 01/18/2016 04/16/2016 Inactive Lasix 40 mg tablet RxNorm: 986466 1 Tablet(s) PO daily 201501/07/2017 Inactive (this was only twice daily x1 week) now it's daily cefdinir 300 mg capsule RxNorm: 385287 1 Capsule(s) PO BID 01/17/2016 Inactive take probiotic BID x 7 days cefdinir 300 mg capsule RxNorm: 456013 1 Capsule(s) PO BID 01/10/2016 Inactive buspirone 10 mg tablet RxNorm: 854864 TAKE ONE TABLET BY MOUTH THREE TIMES A DAY 01/11/2016 06/08/2016 Inactive hydrocodone 7.5 mg-acetaminophen 325 mg tablet RxNorm: 268149 1 or 2 Tablet(s) PO Q4-6H as needed pain 12/28/20152015 Inactive potassium chloride ER 10 mEq tablet,extended release(part/ cryst) RxNorm: 5156933 2 po TID x 2 days then 2 po BID Tablet(s) 12/28/2015 03/10/2016 Inactive potassium chloride ER 10 mEq tablet,extended release(part/ cryst) RxNorm: 5748179 TAKE ONE TABLET BY MOUTH TWICE A DAY FOR 1 WEEK THEN RETURN TO DAILY 12/28/2015 12/27/2015 Inactive meclizine 25 mg tablet RxNorm: 353620 1 Tablet(s) PO BID PRN No Stop Date Active potassium chloride ER 10 mEq tablet,extended release(part/ cryst) RxNorm: 0389890 1 Tablet(s) PO TID 12/08/2015 03/10/2016 Inactive potassium chloride ER 10 mEq tablet,extended release(part/ cryst) RxNorm: 3742673 2 Tablet(s) PO daily 11/26/20152015 Inactive cyanocobalamin (vit B-12) 1,000 mcg/mL injection solution RxNorm: 138497 INJECT 1 ML INTRAMUSCULARLY 2 TIMES A MONTH FOR 2 MONTHS, THEN ONCE A MONTH THEREAFTER 11/26/2015 04/23/2016 Inactive potassium chloride ER 10 mEq tablet,extended release(part/ cryst) RxNorm: 0597512 3 Tablet(s) PO daily 11/23/20152015 Inactive Lasix 40 mg tablet RxNorm: 737897 1 Tablet(s) PO daily 201501/13/2016 Inactive (this was only twice daily x1 week) now it's daily metolazone 5 mg tablet RxNorm: 965274 1 Tablet(s) BIW TAKE ONE TABLET BY MOUTH DAILY 11/12/2015 04/18/2016 Inactive hydrocodone 7.5 mg-acetaminophen 325 mg tablet RxNorm: 258902 1 or 2 Tablet(s) PO Q4-6H as needed pain 11/12/20152015 Inactive Lasix 40 mg tablet RxNorm: 010771 1 Tablet(s) PO daily 201511/11/2015 Inactive (this was only twice daily x1 week) now it's daily metolazone 5 mg tablet RxNorm: 461013 Tablet(s) TAKE ONE TABLET BY MOUTH DAILY 10/22/2015 10/29/2015 Inactive potassium chloride ER 10 mEq tablet,extended release(part/ cryst) RxNorm: 4535979 1 Tablet(s) PO daily 10/08/20152015 Inactive twice daily x 1 week then return to daily Lasix 40 mg tablet RxNorm: 1 Tablet(s) PO daily 201511/09/2015 Inactive twice daily x 1 week then daily thereafter Keflex 500 mg capsule RxNorm: 334703 1 Capsule(s) PO TID 201510/02/2015 Inactive Keflex 500 mg capsule RxNorm: 512515 1 Capsule(s) PO TID 201509/22/2015 Inactive hydrocodone 7.5 mg-acetaminophen 325 mg tablet RxNorm: 431827 1 or 2 Tablet(s) PO Q4-6H as needed pain 09/22/20152015 Inactive potassium chloride ER 10 mEq tablet,extended release(part/ cryst) RxNorm: 4549349 1 Tablet(s) PO BID 09/22/2015 10/07/2015 Inactive twice daily x 1 week then return to daily Lasix 40 mg tablet RxNorm: 842320 1 Tablet(s) PO BID 201510/07/2015 Inactive twice daily x 1 week then daily thereafter allopurinol 300 mg tablet RxNorm: 710309 1 Tablet(s) PO daily 09/09/2015 01/06/2016 Inactive diltiazem 90 mg tablet RxNorm: 219461 Tablet(s) TAKE ONE TABLET BY MOUTH THREE TIMES A DAY 09/02/2015 01/28/2016 Inactive diltiazem 90 mg tablet RxNorm: 815504 TAKE ONE TABLET BY MOUTH THREE TIMES A DAY 08/31/2015 01/28/2016 Inactive diltiazem 90 mg tablet RxNorm: 874512 TAKE ONE TABLET BY MOUTH THREE TIMES A DAY 08/31/2015 09/01/2015 Inactive Xanax 0.25 mg tablet RxNorm: 165533 1 Tablet(s) PO TID as needed anxiety 08/28/2015 09/26/2015 Inactive Xanax 0.25 mg tablet RxNorm: 370143 1 Tablet(s) PO TID as needed anxiety 08/28/2015 08/27/2015 Inactive potassium chloride ER 10 mEq tablet,extended release(part/ cryst) RxNorm: 575164 TAKE ONE TABLET BY MOUTH DAILY 08/27/2015 2015 Inactive omeprazole 20 mg capsule,delayed release RxNorm: 181936 TAKE ONE CAPSULE BY MOUTH TWICE A DAY 08/16/2015 02/11/2016 Inactive omeprazole 20 mg capsule,delayed release RxNorm: 090498 TAKE ONE CAPSULE BY MOUTH TWICE A DAY 08/16/2015 08/15/2015 Inactive hydrocodone 7.5 mg-acetaminophen 325 mg tablet RxNorm: 235676 1 or 2 Tablet(s) PO Q4-6H as needed pain 08/11/20152015 Inactive omeprazole 20 mg capsule,delayed release RxNorm: 452717 Capsule(s) TAKE ONE CAPSULE BY MOUTH TWICE A DAY 08/03/2015 Inactive omeprazole 20 mg capsule,delayed release RxNorm: 763974 Capsule(s) TAKE ONE CAPSULE BY MOUTH TWICE A DAY 07/31/2015 Inactive buspirone 10 mg tablet RxNorm: 116817 TAKE ONE TABLET BY MOUTH THREE TIMES A DAY 07/13/2015 01/08/2016 Inactive metolazone 5 mg tablet RxNorm: 186264 TAKE ONE TABLET BY MOUTH DAILY 07/02/2015 07/09/2015 Inactive metolazone 5 mg tablet RxNorm: 019503 1 Tablet(s) PO daily 06/18/2015 Inactive metolazone 5 mg tablet RxNorm: 049531 1 Tablet(s) PO daily 06/14/2015 Inactive hydrocodone 7.5 mg-acetaminophen 325 mg tablet RxNorm: 641846 1or2 1 or 2 Tablet(s ) PO Q4-6H as needed pain 06/12/201507/10 Inactive warfarin 1 mg tablet RxNorm: 579492 1 Tablet(s) 04/15/2015 06/22/2015 Inactive take with 3mg to make 4mg on Mon and repeat in 1 week. hydrocodone 7.5 mg-acetaminophen 325 mg tablet RxNorm: 390237 1or2 or 2 Tablet(s) PO Q4-6H as needed pain 03/31/20152015 Inactive hydrocodone 7.5 mg-acetaminophen 325 mg tablet RxNorm: 087914 1or2 or 2 Tablet(s) PO Q4-6H as needed pain 03/25/20152015 Inactive warfarin 5 mg tablet RxNorm: 342550 1 Tablet(s) PO daily TAKE ONE TABLET BY MOUTH DAILY 03/05/2015 06/22/2015 Inactive Xarelto 20 mg tablet RxNorm: 7218769 1 Tablet(s) PO QPM 201503/04/2015 Inactive losartan 100 mg tablet RxNorm: 037724 1 Tablet(s) PO daily 05/201406/22/2015 Inactive [SAVINGS FOR NON-COVERED DRUGS -- BIN:225040, PCN: ASPROD1, Group: XXXXX, ID# [id number], Questions: . THIS IS NOT INSURANCE.] Kenalog 40 mg/mL suspension for injection RxNorm: 3143595 1 Milliliter(s) Inj 01/30/2015 01/30/2015 Inactive hydrocodone 7.5 mg-acetaminophen 325 mg tablet RxNorm: 950691 1or2 or 2 Tablet(s) PO Q4-6H as needed pain 01/15/20152014 Inactive Lasix 40 mg tablet RxNorm: 610669 1 Tablet(s) PO daily 201409/21/2015 Inactive as needed for swelling-take potassium when you take lasix potassium chloride ER 10 mEq tablet,extended release(part/ cryst) RxNorm: 815996 2 Tablet(s) PO daily 01/06/2015 01/19/2015 Inactive Lasix 40 mg tablet RxNorm: 580392 1 Tablet(s) PO daily 201401/06/2015 Inactive Ok to fill 20mg, not 40mg as needed for swelling-take potassium when you take lasix potassium chloride ER 10 mEq tablet,extended release(part/ cryst) RxNorm: 122304 1 Tablet(s) PO BID 12/30/2014 01/05/2015 Inactive Vitamin D2 50,000 unit capsule RxNorm: 818335 TAKE 1 CAPSULE BY MOUTH ONCE WEEKLY FOR 12 WEEKS 12/30/2014 03/23/2015 Inactive potassium chloride ER 10 mEq tablet,extended release(part/ cryst) RxNorm: 101621 1 Tablet(s) PO daily 12/26/2014 12/29/2014 Inactive potassium chloride ER 10 mEq tablet,extended release(part/ cryst) RxNorm: 327062 1 Tablet(s) PO daily 12/26/2014 12/25/2014 Inactive omeprazole 20 mg capsule,delayed release RxNorm: 668842 TAKE ONE CAPSULE BY MOUTH TWICE A DAY 12/24/2014 07/21/2015 Inactive Flagyl 500 mg tablet RxNorm: 296324 1 Tablet(s) PO TID 201412/20/2014 Inactive Flagyl 500 mg tablet RxNorm: 593173 1 Tablet(s) PO TID 201412/10/2014 Inactive warfarin 3 mg tablet RxNorm: 230981 TAKE ONE TABLET BY MOUTH DAILY 11/13/2014 01/29/2015 Inactive warfarin 3 mg tablet RxNorm: 324277 TAKE ONE TABLET BY MOUTH DAILY 11/13/2014 01/29/2015 Inactive warfarin 3 mg tablet RxNorm: 584946 TAKE ONE TABLET BY MOUTH DAILY 11/13/2014 03/04/2015 Inactive warfarin 3 mg tablet RxNorm: 050817 1 Tablet(s) PO daily 201403/04/2015 Inactive allopurinol 300 mg tablet RxNorm: 471826 1 Tablet(s) PO daily 11/11/2014 03/10/2015 Inactive hydrocodone 7.5 mg-acetaminophen 325 mg tablet RxNorm: 235832 1or2 or 2 Tablet(s) PO Q4-6H as needed pain 11/10/20142014 Inactive hydrocodone 7.5 mg-acetaminophen 325 mg tablet RxNorm: 457079 1or2 or 2 Tablet(s) PO Q4-6H as needed pain 10/15/20142014 Inactive hydrocodone 7.5 mg-acetaminophen 325 mg tablet RxNorm: 710645 1or2 or 2 Tablet(s) PO Q4-6H as needed pain 10/15/20142014 Inactive Kenalog 40 mg/mL suspension for injection RxNorm: 5818921 Milliliter(s) Inj 10/14/2014 10/14/2014 Inactive ceftriaxone 500 mg solution for injection RxNorm: 5590172 Inj 10/14/2014 10/14/2014 Inactive Zithromax Z-Chito 250 mg tablet RxNorm: 484893 1 Tablet(s) PO UD 10/14/2014 01/29/2015 Inactive zpack cefdinir 300 mg capsule RxNorm: 518671 1 Capsule(s) PO BID 10/20/2014 Inactive Vitamin D2 50,000 unit capsule RxNorm: 938411 1 Capsule(s) PO weekly x 12 weeks 09/24/2014 09/23/2014 Inactive Vitamin D2 50,000 unit capsule RxNorm: 358552 1 Capsule(s) PO weekly x 12 weeks 09/24/2014 12/22/2014 Inactive warfarin 1 mg tablet RxNorm: 684207 TAKE 1/2 TABLET BY MOUTH DAILY WITH 3MG TABLET TO EQUAL 3.5MG DAILY 09/22/201404/2014 Inactive warfarin 1 mg tablet RxNorm: 920967 1/2 Tablet(s) PO daily 3.5mg 08/26/2014 2014 Inactive taking with a 3mg to make 3.5mg tablets Lasix 20 mg tablet RxNorm: 615561 1 Tablet(s) PO QDAY PRN 09/24/2014 Inactive Ok to fill 20mg, not 40mg as needed for swelling-take potassium when you take lasix buspirone 10 mg tablet RxNorm: 970204 1 Tablet(s) PO TID 201411/25/2014 Inactive takes it BID but if she feels anxious she takes one during the day Lasix 20 mg tablet RxNorm: 572639 1 Tablet(s) PO QDAY PRN 08/25/2014 Inactive as needed for swelling-take potassium when you take lasix warfarin 1 mg tablet RxNorm: 863211 1/2 Tablet(s) PO daily 3.5mg 08/15/2014 08/21/2014 Inactive taking with a 3mg to make 3.5mg tablets warfarin 3 mg tablet RxNorm: 029097 1 Tablet(s) PO daily 201410/11/2014 Inactive diltiazem 90 mg tablet RxNorm: 374612 1 Tablet(s) PO TID 201408/30/2015 Inactive warfarin 1 mg tablet RxNorm: 463308 1/2 Tablet(s) PO daily 3.5mg 08/05/2014 08/11/2014 Inactive taking with a 3mg to make 3.5mg tablets cyclobenzaprine 10 mg tablet RxNorm: 622479 1 Tablet(s) PO QHS 08/04/2014 11/01/2014 Inactive buspirone 10 mg tablet RxNorm: 171242 1 Tablet(s) PO QID 201408/21/2014 Inactive allopurinol 300 mg tablet RxNorm: 294698 1 Tablet(s) PO daily 08/04/2014 11/01/2014 Inactive clonazepam 0.5 mg tablet RxNorm: 981904 1 Tablet(s) PO daily 09/02/2014 Inactive omeprazole 20 mg capsule,delayed release RxNorm: 636075 1 Capsule(s) PO BID 08/04/2014 11/01/2014 Inactive atenolol 25 mg tablet RxNorm: 595071 1 Tablet(s) PO daily 201411/01/2014 Inactive warfarin 3 mg tablet RxNorm: 734980 1 Tablet(s) PO daily 201408/04/2014 Inactive diphenhydramine 2 % topical cream RxNorm: 7274131 1 Application TOP Q6 PRN 07/24/2014 01/29/2015 Inactive diltiazem 90 mg tablet RxNorm: 055657 1 Tablet(s) PO BID 201408/04/2014 Inactive cyclobenzaprine 10 mg tablet RxNorm: 470937 1 Tablet(s) PO QH 07/24/2014 08/03/2014 Inactive warfarin 2.5 mg tablet RxNorm: 375981 1 Tablet(s) PO daily 08/22/2014 Inactive [SAVINGS FOR NON-COVERED DRUGS -- BIN:173689, N: ASPROD1, Group: XXXXX, ID# [id number], Questions: . THIS IS NOT INSURANCE.] losartan 25 mg tablet RxNorm: 419782 1 Tablet(s) PO daily 201401/29/2015 Inactive [SAVINGS FOR NON-COVERED DRUGS -- BIN:814097, PCN: ASPROD1, Group: XXXXX, ID # [id number], Questions: . THIS IS NOT INSURANCE.] isosorbide mononitrate oral RxNorm: 6057 oral No Start Date Active diltiazem ER 360 mg tablet,extended release 24 hr RxNorm: 637494 1 Tablet(s) PO daily No Start Date Active benazepril 10 mg tablet RxNorm: 570995 1 Tablet(s) PO daily No Start Date 07/14/2014 Inactive lisinopril 10 mg tablet RxNorm: 739537 1 Tablet(s) PO daily No Start Date 04/24/2016 Inactive clonazepam 0.5 mg tablet RxNorm: 710278 1 Tablet(s) PO daily No Start Date 08/03/2014 Inactive diltiazem 90 mg tablet RxNorm: 041482 1 Tablet(s) PO daily No Start Date 07/23/2014 Inactive atenolol 25 mg tablet RxNorm: 659105 1 Tablet(s) PO daily No Start Date 08/03/2014 Inactive buspirone 10 mg tablet RxNorm: 474678 1 Tablet(s) PO QID No Start Date 08/03/2014 Inactive omeprazole 20 mg capsule,delayed release RxNorm: 527153 1 Capsule(s) PO BID No Start Date 08/03/2014 Inactive allopurinol 300 mg tablet RxNorm: 085054 1 Tablet(s) PO daily No Start Date 08/03/2014 Inactive Xarelto 20 mg tablet RxNorm: 3819379 1 Tablet(s) PO daily No Start Date 03/03/2015 Inactive warfarin 2 mg tablet RxNorm: 462622 1 Tablet(s) PO daily No Start Date 07/16/2014 Inactive cyanocobalamin (vit B-12) 1,000 mcg/mL injection solution RxNorm: 251790 1 Milliliter(s) Inj monthly No Start Date Inactive cyclobenzaprine 10 mg tablet RxNorm: 084914 1 Tablet(s) PO BID No Start Date 07/23/2014 Inactive Eliquis 2.5 mg tablet RxNorm: 1890527 1 Tablet(s) PO daily No Start Date 03/03/2015 Inactive Medication Administered Medication Codes Instructions Start Date Status Kenalog 40 mg/mL suspension for injection RxNorm: 7177205 1Milliliter 01/30/2015 No longer Active Kenalog 40 mg/mL suspension for injection RxNorm: 4271157 Milliliter 10/14/2014 No longer Active ceftriaxone 500 mg solution for injection RxNorm: 8996900 10/14/2014 No longer Active Immunizations Vaccine Codes Date Status Influenza CVX: 141 12/10/2015 completed Assessments Condition Codes Effective Dates Other malaise ICD-10: R53.81 ICD-9: 780.79 12/12/2017 Essential (primary) hypertension ICD-10: I10 ICD-9: 401.9 12/12/2017 Vascular dementia without behavioral disturbance ICD-10: F01.50 ICD-9: 290.40 12/12/2017 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
--- OUTSIDE RECORDS SUMMARY | 2018-04-19 00:16 | XMS REPORT | CCD ---
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 [employer] Name Role Phone PP Unavailable CCM Unavailable Summary Purpose Interface Exchange Insurance Providers Payer name Policy type / Coverage type Covered alliance party ID Effective Begin Date Effective End Date WPS Medicare Part B Medicare Part B [id number] Unknown Family history Mother Diagnosis Age At Onset Hypertension Unknown Heart Attack Unknown Social History Social History Element Codes Description Effective Dates Marital status Unknown 07/15/2014 Marital status Unknown 07/15/2014 Number of children Unknown 0 07/15/2014 Number of children Unknown 0 07/15/2014 Employment Unknown Retired 07/15/2014 Employment Unknown Retired 07/15/[address]: 929400812 Has never smoked or chewed tobacco 07/15/[address]: 403282985 Has never smoked or chewed tobacco 07/15/[address]: 394751895 Never drinks alcohol 07/15/[address]: 211454204 Never drinks alcohol 07/15/2014 Allergies, Adverse Reactions, Alerts Substance Reaction Codes Entered Date Inactivated Date Status * NO KNOWN FOOD ALLERGIES Unknown 07/15/2014 No Inactive Date Active SULFA(SULFONAMIDE ANTIBIOTICS) Unknown 07/15/2014 No Inactive Date Active Past Medical History Illness Codes Condition Status Onset Date Resolved Date Essential (primary) hypertension ICD-9: 401.9 ICD-10: I10 Active 01/13/2016 Unknown prison (current) use of anticoagulants ICD-9: V58.61 ICD-10: [...] hypertension ICD-9: 401.9 ICD-10: I10 01/13/2016 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 ICD-10: [...] hydrocodone 7.5 mg-acetaminophen 325 mg tablet RxNorm: 280737 1 Tablet(s) PO daily as needed pain 02/01/20182018 Active Xanax 0.25 mg tablet RxNorm: 642883 1 Tablet(s) PO TID as needed anxiety 01/01/2018 01/20/2018 Inactive hydrocodone 7.5 mg-acetaminophen 325 mg tablet RxNorm: 095995 1 Tablet(s) PO daily as needed pain 12/12/20172017 Inactive cyanocobalamin (vit B-12) 1,000 mcg/mL injection solution RxNorm: 425024 INJECT 1 ML INTRAMUSCULARLY 2 TIMES A MONTH FOR 2 MONTHS, THEN ONCE A MONTH THEREAFTER 11/28/2017 01/22/2018 Inactive hydrocodone 7.5 mg-acetaminophen 325 mg tablet RxNorm: 600867 1-2 Tablet(s) PO Q4- 6H as needed pain 11/21/2017 12/11/2017 Inactive Lasix 40 mg tablet RxNorm: 899105 TAKE ONE TABLET BY MOUTH DAILY 10/23/2017 04/20/2018 Active Lexapro 5 mg tablet RxNorm: 357037 TAKE ONE TABLET BY MOUTH EVERY EVENING 10/23/2017 12/21/2017 Inactive buspirone 10 mg tablet RxNorm: 861844 TAKE ONE TABLET BY MOUTH THREE TIMES A DAY 10/02/2017 02/28/2018 Active omeprazole 20 mg capsule,delayed release RxNorm: 180526 TAKE ONE CAPSULE BY MOUTH TWICE A DAY 09/13/2017 03/11/2018 Active Levaquin 750 mg tablet RxNorm: 297833 1 tab every other day for 5 doses 1 Tablet(s ) PO 08/29/2017 08/28/2017 Inactive Levaquin 750 mg tablet RxNorm: 802851 1 tab every other day for 5 doses 1 Tablet(s ) PO 08/29/2017 09/02/2017 Inactive potassium chloride ER 10 mEq tablet,extended release RxNorm: 953044 TAKE TWO TABLETS BY MOUTH THREE TIMES A DAY 08/28/2017 12/25/2017 Inactive hydrocodone 7.5 mg-acetaminophen 325 mg tablet RxNorm: 066497 1-2 Tablet(s) PO Q4- 6H as needed pain 08/28/2017 09/26/2017 Inactive metoprolol tartrate 25 mg tablet RxNorm: 216234 TAKE 1/2 TABLET BY MOUTH TWO TIMES A DAY 07/25/2017 07/19/2018 Active Lexapro 5 mg tablet RxNorm: 794406 TAKE ONE TABLET BY MOUTH EVERY EVENING 07/21/2017 10/18/2017 Inactive hydrocodone 7.5 mg-acetaminophen 325 mg tablet RxNorm: 555840 1-2 Tablet(s) PO Q4- 6H as needed pain 07/19/2017 08/17/2017 Inactive hydrocodone 7.5 mg-acetaminophen 325 mg tablet RxNorm: 827026 1-2 Tablet(s) PO Q4- 6H as needed pain 07/03/2017 07/18/2017 Inactive hydrocodone 7.5 mg-acetaminophen 325 mg tablet RxNorm: 272287 1-2 Tablet(s) PO Q4- 6H as needed pain 05/25/2017 06/23/2017 Inactive cyanocobalamin (vit B-12) 1,000 mcg/mL injection solution RxNorm: 567619 INJECT 1 ML INTRAMUSCULARLY 2 TIMES A MONTH FOR 2 MONTHS, THEN ONCE A MONTH THEREAFTER 05/19/2017 08/10/2017 Inactive warfarin 5 mg tablet RxNorm: 727929 TAKE ONE TABLET BY MOUTH DAILY 04/26/2017 04/20/2018 Active buspirone 10 mg tablet RxNorm: 683192 TAKE ONE TABLET BY MOUTH THREE TIMES A DAY 04/26/2017 09/22/2017 Inactive Xanax 0.25 mg tablet RxNorm: 630353 1 Tablet(s) PO TID as needed anxiety 04/17/2017 05/14/2017 Inactive Levaquin 500 mg tablet RxNorm: 299311 1 Tablet(s) PO Q72H x3 doses 04/11/2017 04/10/2017 Inactive Levaquin 500 mg tablet RxNorm: 835582 1 Tablet(s) PO Q72H x3 doses 04/11/2017 07/03/2017 Inactive potassium chloride ER 10 mEq tablet,extended release RxNorm: 511405 TAKE TWO TABLETS BY MOUTH THREE TIMES A DAY 03/27/2017 08/23/2017 Inactive Tamiflu 75 mg capsule RxNorm: 474344 1 Capsule(s) PO BID 201707/03/2017 Inactive Zofran 4 mg tablet RxNorm: 238670 1 Tablet(s) PO QID as needed nausea 03/23/2017 06/20/2017 Inactive Zofran 4 mg tablet RxNorm: 584478 1 Tablet(s) PO QID as needed nausea 03/23/2017 03/22/2017 Inactive Tamiflu 75 mg capsule RxNorm: 939688 1 Capsule(s) PO BID 201703/22/2017 Inactive lisinopril 10 mg tablet RxNorm: 470487 TAKE ONE-HALF TABLET BY MOUTH DAILY 03/10/2017 06/02/2018 Active metolazone 5 mg tablet RxNorm: 168015 1 Tablet(s) PO TIW 201703/01/2018 Active hydrocodone 7.5 mg-acetaminophen 325 mg tablet RxNorm: 013882 1-2 Tablet(s) PO Q4- 6H as needed pain 02/23/2017 05/24/2017 Inactive omeprazole 20 mg capsule,delayed release RxNorm: 255526 Capsule(s) TAKE ONE CAPSULE BY MOUTH TWICE A DAY 02/08/2017 Inactive metolazone 5 mg tablet RxNorm: 418493 TAKE 1 TABLET BY MOUTH TWICE WEEKLY 02/08/2017 03/06/2017 Inactive Lexapro 5 mg tablet RxNorm: 334115 1 Tablet(s) PO QPM 201603/06/2017 Inactive hydrocodone 7.5 mg-acetaminophen 325 mg tablet RxNorm: 824786 1-2 Tablet(s) PO Q4- 6H as needed pain 01/16/2017 02/22/2017 Inactive Lasix 40 mg tablet RxNorm: 318809 TAKE ONE TABLET BY MOUTH DAILY 01/11/2017 10/07/2017 Inactive metoprolol tartrate 25 mg tablet RxNorm: 513683 TAKE 1/2 TABLET BY MOUTH TWO TIMES A DAY 01/11/2017 07/09/2017 Inactive allopurinol 300 mg tablet RxNorm: 979897 TAKE ONE TABLET BY MOUTH DAILY 01/09/2017 06/07/2017 Inactive hydrocodone 7.5 mg-acetaminophen 325 mg tablet RxNorm: 846716 1-2 Tablet(s) PO Q4- 6H as needed pain 12/06/2016 01/15/2017 Inactive lisinopril 10 mg tablet RxNorm: 256281 TAKE ONE-HALF TABLET BY MOUTH DAILY 12/02/2016 03/09/2017 Inactive buspirone 10 mg tablet RxNorm: 817553 TAKE ONE TABLET BY MOUTH THREE TIMES A DAY 10/25/2016 01/22/2017 Inactive buspirone 10 mg tablet RxNorm: 588835 TAKE ONE TABLET BY MOUTH THREE TIMES A DAY 10/25/2016 10/24/2016 Inactive hydrocodone 7.5 mg-acetaminophen 325 mg tablet RxNorm: 666075 1-2 or 2 Tablet(s) PO Q4-6H as needed pain 10/25/20162016 Inactive cyanocobalamin (vit B-12) 1,000 mcg/mL injection solution RxNorm: 654461 INJECT 1 ML INTRAMUSCULARLY 2 TIMES A MONTH FOR 2 MONTHS, THEN ONCE A MONTH THEREAFTER 10/24/2016 02/12/2017 Inactive metolazone 5 mg tablet RxNorm: 214344 TAKE 1 TABLET BY MOUTH TWICE WEEKLY 09/23/2016 01/12/2017 Inactive hydrocodone 7.5 mg-acetaminophen 325 mg tablet RxNorm: 546024 1-2 or 2 Tablet(s) PO Q4-6H as needed pain 09/13/20162016 Inactive Keflex 500 mg capsule RxNorm: 349237 1 Capsule(s) PO TID 201609/15/2016 Inactive Take with a probiotic BID Keflex 500 mg capsule RxNorm: 257437 1 Capsule(s) PO TID 201609/08/2016 Inactive Take with a probiotic BID metoprolol tartrate 25 mg tablet RxNorm: 852611 TAKE 1/2 TABLET BY MOUTH TWO TIMES A DAY 09/07/2016 01/04/2017 Inactive potassium chloride ER 10 mEq tablet,extended release RxNorm: 864015 TAKE TWO TABLETS BY MOUTH THREE TIMES A DAY 09/01/2016 02/27/2017 Inactive hydrocodone 7.5 mg-acetaminophen 325 mg tablet RxNorm: 031957 1 or 2 Tablet(s) PO Q4-6H as needed pain 08/31/20162016 Inactive omeprazole 20 mg capsule,delayed release RxNorm: 719175 TAKE ONE CAPSULE BY MOUTH TWICE A DAY 08/24/2016 02/07/2017 Inactive hydrocodone 7.5 mg-acetaminophen 325 mg tablet RxNorm: 913302 1 or 2 Tablet(s) PO Q4-6H as needed pain 08/05/20162016 Inactive lisinopril 10 mg tablet RxNorm: 796208 TAKE ONE-HALF TABLET BY MOUTH DAILY 07/28/2016 12/01/2016 Inactive hydrocodone 7.5 mg-acetaminophen 325 mg tablet RxNorm: 062914 1 or 2 Tablet(s) PO Q4-6H as needed pain 07/05/20162016 Inactive allopurinol 300 mg tablet RxNorm: 040835 TAKE ONE TABLET BY MOUTH DAILY 06/16/2016 12/12/2016 Inactive metoprolol tartrate 25 mg tablet RxNorm: 132725 TAKE 1/2 TABLET BY MOUTH TWO TIMES A DAY 06/16/2016 08/14/2016 Inactive buspirone 10 mg tablet RxNorm: 868743 TAKE ONE TABLET BY MOUTH THREE TIMES A DAY 06/15/2016 10/12/2016 Inactive hydrocodone 7.5 mg-acetaminophen 325 mg tablet RxNorm: 231342 1 or 2 Tablet(s) PO Q4-6H as needed pain 06/07/20162016 Inactive metoprolol tartrate 25 mg tablet RxNorm: 096007 1/2 Tablet(s) PO QPM 05/10/2016 06/08/2016 Inactive lisinopril 10 mg tablet RxNorm: 582624 1/2 Tablet(s) PO daily 04/26/2016 07/27/2016 Inactive hydrocodone 7.5 mg-acetaminophen 325 mg tablet RxNorm: 451993 1 or 2 Tablet(s) PO Q4-6H as needed pain 04/25/20162016 Inactive lisinopril 10 mg tablet RxNorm: 139523 1/2 Tablet(s) PO daily 04/25/2016 04/25/2016 Inactive metoprolol tartrate 25 mg tablet RxNorm: 627063 1/2 Tablet(s) PO BID 04/25/2016 05/09/2016 Inactive allopurinol 300 mg tablet RxNorm: 261079 TAKE ONE TABLET BY MOUTH DAILY 04/19/2016 06/15/2016 Inactive metolazone 5 mg tablet RxNorm: 833575 TAKE 1 TABLET BY MOUTH TWICE WEEKLY 04/19/2016 09/05/2016 Inactive potassium chloride ER 10 mEq tablet,extended release RxNorm: 759909 2 Tablet(s) PO TID 03/21/2016 08/17/2016 Inactive warfarin 5 mg tablet RxNorm: 602025 1 Tablet(s) PO daily TAKE ONE TABLET BY MOUTH DAILY 03/21/2016 03/15/[address] Echevarria manages potassium chloride ER 10 mEq tablet,extended release(part/ cryst) RxNorm: 2844002 2 Tablet(s) PO TID 03/11/2016 03/20/2016 Inactive Xanax 0.25 mg tablet RxNorm: 633274 1 Tablet(s) PO TID as needed anxiety 03/10/2016 04/06/2016 Inactive Xanax 0.25 mg tablet RxNorm: 525552 1 Tablet(s) PO TID as needed anxiety 03/10/2016 12/31/2017 Inactive hydrocodone 7.5 mg-acetaminophen 325 mg tablet RxNorm: 282222 1 or 2 Tablet(s) PO Q4-6H as needed pain 02/26/20162016 Inactive Flonase Allergy Relief 50 mcg/actuation nasal spray, suspension RxNorm: 1907314 1 [place] NASAL each nare daily 01/19/2016 03/18/2016 Inactive cefdinir 300 mg capsule RxNorm: 807803 1 Capsule(s) PO BID 01/23/2016 Inactive take probiotic BID x 7 days Flonase Allergy Relief 50 mcg/actuation nasal spray, suspension RxNorm: 9961718 1 [place] NASAL each nare daily 01/19/2016 01/18/2016 Inactive allopurinol 300 mg tablet RxNorm: 792238 TAKE ONE TABLET BY MOUTH DAILY 01/18/2016 04/16/2016 Inactive Lasix 40 mg tablet RxNorm: 056466 1 Tablet(s) PO daily 201501/07/2017 Inactive (this was only twice daily x1 week) now it's daily cefdinir 300 mg capsule RxNorm: 265472 1 Capsule(s) PO BID 01/17/2016 Inactive take probiotic BID x 7 days cefdinir 300 mg capsule RxNorm: 455858 1 Capsule(s) PO BID 01/10/2016 Inactive buspirone 10 mg tablet RxNorm: 812655 TAKE ONE TABLET BY MOUTH THREE TIMES A DAY 01/11/2016 06/08/2016 Inactive hydrocodone 7.5 mg-acetaminophen 325 mg tablet RxNorm: 692221 1 or 2 Tablet(s) PO Q4-6H as needed pain 12/28/20152015 Inactive potassium chloride ER 10 mEq tablet,extended release(part/ cryst) RxNorm: 2837170 2 po TID x 2 days then 2 po BID Tablet(s) 12/28/2015 03/10/2016 Inactive potassium chloride ER 10 mEq tablet,extended release(part/ cryst) RxNorm: 2500324 TAKE ONE TABLET BY MOUTH TWICE A DAY FOR 1 WEEK THEN RETURN TO DAILY 12/28/2015 12/27/2015 Inactive meclizine 25 mg tablet RxNorm: 821592 1 Tablet(s) PO BID PRN No Stop Date Active potassium chloride ER 10 mEq tablet,extended release(part/ cryst) RxNorm: 5252798 1 Tablet(s) PO TID 12/08/2015 03/10/2016 Inactive potassium chloride ER 10 mEq tablet,extended release(part/ cryst) RxNorm: 9799590 2 Tablet(s) PO daily 11/26/20152015 Inactive cyanocobalamin (vit B-12) 1,000 mcg/mL injection solution RxNorm: 332980 INJECT 1 ML INTRAMUSCULARLY 2 TIMES A MONTH FOR 2 MONTHS, THEN ONCE A MONTH THEREAFTER 11/26/2015 04/23/2016 Inactive potassium chloride ER 10 mEq tablet,extended release(part/ cryst) RxNorm: 5828444 3 Tablet(s) PO daily 11/23/20152015 Inactive Lasix 40 mg tablet RxNorm: 003373 1 Tablet(s) PO daily 201501/13/2016 Inactive (this was only twice daily x1 week) now it's daily metolazone 5 mg tablet RxNorm: 069642 1 Tablet(s) BIW TAKE ONE TABLET BY MOUTH DAILY 11/12/2015 04/18/2016 Inactive hydrocodone 7.5 mg-acetaminophen 325 mg tablet RxNorm: 706962 1 or 2 Tablet(s) PO Q4-6H as needed pain 11/12/20152015 Inactive Lasix 40 mg tablet RxNorm: 343675 1 Tablet(s) PO daily 201511/11/2015 Inactive (this was only twice daily x1 week) now it's daily metolazone 5 mg tablet RxNorm: 787595 Tablet(s) TAKE ONE TABLET BY MOUTH DAILY 10/22/2015 10/29/2015 Inactive potassium chloride ER 10 mEq tablet,extended release(part/ cryst) RxNorm: 3509850 1 Tablet(s) PO daily 10/08/20152015 Inactive twice daily x 1 week then return to daily Lasix 40 mg tablet RxNorm: 1 Tablet(s) PO daily 201511/09/2015 Inactive twice daily x 1 week then daily thereafter Keflex 500 mg capsule RxNorm: 362586 1 Capsule(s) PO TID 201510/02/2015 Inactive Keflex 500 mg capsule RxNorm: 685652 1 Capsule(s) PO TID 201509/22/2015 Inactive hydrocodone 7.5 mg-acetaminophen 325 mg tablet RxNorm: 801949 1 or 2 Tablet(s) PO Q4-6H as needed pain 09/22/20152015 Inactive potassium chloride ER 10 mEq tablet,extended release(part/ cryst) RxNorm: 5965838 1 Tablet(s) PO BID 09/22/2015 10/07/2015 Inactive twice daily x 1 week then return to daily Lasix 40 mg tablet RxNorm: 831308 1 Tablet(s) PO BID 201510/07/2015 Inactive twice daily x 1 week then daily thereafter allopurinol 300 mg tablet RxNorm: 360480 1 Tablet(s) PO daily 09/09/2015 01/06/2016 Inactive diltiazem 90 mg tablet RxNorm: 418994 Tablet(s) TAKE ONE TABLET BY MOUTH THREE TIMES A DAY 09/02/2015 01/28/2016 Inactive diltiazem 90 mg tablet RxNorm: 221795 TAKE ONE TABLET BY MOUTH THREE TIMES A DAY 08/31/2015 01/28/2016 Inactive diltiazem 90 mg tablet RxNorm: 562669 TAKE ONE TABLET BY MOUTH THREE TIMES A DAY 08/31/2015 09/01/2015 Inactive Xanax 0.25 mg tablet RxNorm: 260469 1 Tablet(s) PO TID as needed anxiety 08/28/2015 09/26/2015 Inactive Xanax 0.25 mg tablet RxNorm: 531089 1 Tablet(s) PO TID as needed anxiety 08/28/2015 08/27/2015 Inactive potassium chloride ER 10 mEq tablet,extended release(part/ cryst) RxNorm: 488817 TAKE ONE TABLET BY MOUTH DAILY 08/27/2015 2015 Inactive omeprazole 20 mg capsule,delayed release RxNorm: 308045 TAKE ONE CAPSULE BY MOUTH TWICE A DAY 08/16/2015 02/11/2016 Inactive omeprazole 20 mg capsule,delayed release RxNorm: 325098 TAKE ONE CAPSULE BY MOUTH TWICE A DAY 08/16/2015 08/15/2015 Inactive hydrocodone 7.5 mg-acetaminophen 325 mg tablet RxNorm: 724971 1 or 2 Tablet(s) PO Q4-6H as needed pain 08/11/20152015 Inactive omeprazole 20 mg capsule,delayed release RxNorm: 784303 Capsule(s) TAKE ONE CAPSULE BY MOUTH TWICE A DAY 08/03/2015 Inactive omeprazole 20 mg capsule,delayed release RxNorm: 281163 Capsule(s) TAKE ONE CAPSULE BY MOUTH TWICE A DAY 07/31/2015 Inactive buspirone 10 mg tablet RxNorm: 203474 TAKE ONE TABLET BY MOUTH THREE TIMES A DAY 07/13/2015 01/08/2016 Inactive metolazone 5 mg tablet RxNorm: 325018 TAKE ONE TABLET BY MOUTH DAILY 07/02/2015 07/09/2015 Inactive metolazone 5 mg tablet RxNorm: 649821 1 Tablet(s) PO daily 06/18/2015 Inactive metolazone 5 mg tablet RxNorm: 150521 1 Tablet(s) PO daily 06/14/2015 Inactive hydrocodone 7.5 mg-acetaminophen 325 mg tablet RxNorm: 725819 1or2 1 or 2 Tablet(s ) PO Q4-6H as needed pain 06/12/201507/10 Inactive warfarin 1 mg tablet RxNorm: 053371 1 Tablet(s) 04/15/2015 06/22/2015 Inactive take with 3mg to make 4mg on Mon and repeat in 1 week. hydrocodone 7.5 mg-acetaminophen 325 mg tablet RxNorm: 108562 1or2 or 2 Tablet(s) PO Q4-6H as needed pain 03/31/20152015 Inactive hydrocodone 7.5 mg-acetaminophen 325 mg tablet RxNorm: 522084 1or2 or 2 Tablet(s) PO Q4-6H as needed pain 03/25/20152015 Inactive warfarin 5 mg tablet RxNorm: 149361 1 Tablet(s) PO daily TAKE ONE TABLET BY MOUTH DAILY 03/05/2015 06/22/2015 Inactive Xarelto 20 mg tablet RxNorm: 5052161 1 Tablet(s) PO QPM 201503/04/2015 Inactive losartan 100 mg tablet RxNorm: 436057 1 Tablet(s) PO daily 05/201406/22/2015 Inactive [SAVINGS FOR NON-COVERED DRUGS -- BIN:[id number], PCN: ASPROD1, Group: XXXXX, ID# [id number], Questions: . THIS IS NOT INSURANCE.] Kenalog 40 mg/mL suspension for injection RxNorm: 4715920 1 Milliliter(s) Inj 01/30/2015 01/30/2015 Inactive hydrocodone 7.5 mg-acetaminophen 325 mg tablet RxNorm: 746984 1or2 or 2 Tablet(s) PO Q4-6H as needed pain 01/15/20152014 Inactive Lasix 40 mg tablet RxNorm: 463273 1 Tablet(s) PO daily 201409/21/2015 Inactive as needed for swelling-take potassium when you take lasix potassium chloride ER 10 mEq tablet,extended release(part/ cryst) RxNorm: 560623 2 Tablet(s) PO daily 01/06/2015 01/19/2015 Inactive Lasix 40 mg tablet RxNorm: 530713 1 Tablet(s) PO daily 201401/06/2015 Inactive Ok to fill 20mg, not 40mg as needed for swelling-take potassium when you take lasix potassium chloride ER 10 mEq tablet,extended release(part/ cryst) RxNorm: 416349 1 Tablet(s) PO BID 12/30/2014 01/05/2015 Inactive Vitamin D2 50,000 unit capsule RxNorm: 576060 TAKE 1 CAPSULE BY MOUTH ONCE WEEKLY FOR 12 WEEKS 12/30/2014 03/23/2015 Inactive potassium chloride ER 10 mEq tablet,extended release(part/ cryst) RxNorm: 913059 1 Tablet(s) PO daily 12/26/2014 12/29/2014 Inactive potassium chloride ER 10 mEq tablet,extended release(part/ cryst) RxNorm: 185227 1 Tablet(s) PO daily 12/26/2014 12/25/2014 Inactive omeprazole 20 mg capsule,delayed release RxNorm: 010231 TAKE ONE CAPSULE BY MOUTH TWICE A DAY 12/24/2014 07/21/2015 Inactive Flagyl 500 mg tablet RxNorm: 109102 1 Tablet(s) PO TID 201412/20/2014 Inactive Flagyl 500 mg tablet RxNorm: 649947 1 Tablet(s) PO TID 201412/10/2014 Inactive warfarin 3 mg tablet RxNorm: 790647 TAKE ONE TABLET BY MOUTH DAILY 11/13/2014 01/29/2015 Inactive warfarin 3 mg tablet RxNorm: 905940 TAKE ONE TABLET BY MOUTH DAILY 11/13/2014 01/29/2015 Inactive warfarin 3 mg tablet RxNorm: 112851 TAKE ONE TABLET BY MOUTH DAILY 11/13/2014 03/04/2015 Inactive warfarin 3 mg tablet RxNorm: 698597 1 Tablet(s) PO daily 201403/04/2015 Inactive allopurinol 300 mg tablet RxNorm: 673566 1 Tablet(s) PO daily 11/11/2014 03/10/2015 Inactive hydrocodone 7.5 mg-acetaminophen 325 mg tablet RxNorm: 237652 1or2 or 2 Tablet(s) PO Q4-6H as needed pain 11/10/20142014 Inactive hydrocodone 7.5 mg-acetaminophen 325 mg tablet RxNorm: 482978 1or2 or 2 Tablet(s) PO Q4-6H as needed pain 10/15/20142014 Inactive hydrocodone 7.5 mg-acetaminophen 325 mg tablet RxNorm: 580471 1or2 or 2 Tablet(s) PO Q4-6H as needed pain 10/15/20142014 Inactive Kenalog 40 mg/mL suspension for injection RxNorm: 1500655 Milliliter(s) Inj 10/14/2014 10/14/2014 Inactive ceftriaxone 500 mg solution for injection RxNorm: 1863509 Inj 10/14/2014 10/14/2014 Inactive Zithromax Z-Chito 250 mg tablet RxNorm: 570410 1 Tablet(s) PO UD 10/14/2014 01/29/2015 Inactive zpack cefdinir 300 mg capsule RxNorm: 639839 1 Capsule(s) PO BID 10/20/2014 Inactive Vitamin D2 50,000 unit capsule RxNorm: 840298 1 Capsule(s) PO weekly x 12 weeks 09/24/2014 09/23/2014 Inactive Vitamin D2 50,000 unit capsule RxNorm: 952103 1 Capsule(s) PO weekly x 12 weeks 09/24/2014 12/22/2014 Inactive warfarin 1 mg tablet RxNorm: 499024 TAKE 1/2 TABLET BY MOUTH DAILY WITH 3MG TABLET TO EQUAL 3.5MG DAILY 09/22/201404/2014 Inactive warfarin 1 mg tablet RxNorm: 664340 1/2 Tablet(s) PO daily 3.5mg 08/26/2014 2014 Inactive taking with a 3mg to make 3.5mg tablets Lasix 20 mg tablet RxNorm: 657908 1 Tablet(s) PO QDAY PRN 09/24/2014 Inactive Ok to fill 20mg, not 40mg as needed for swelling-take potassium when you take lasix buspirone 10 mg tablet RxNorm: 904555 1 Tablet(s) PO TID 201411/25/2014 Inactive takes it BID but if she feels anxious she takes one during the day Lasix 20 mg tablet RxNorm: 715157 1 Tablet(s) PO QDAY PRN 08/25/2014 Inactive as needed for swelling-take potassium when you take lasix warfarin 1 mg tablet RxNorm: 359579 1/2 Tablet(s) PO daily 3.5mg 08/15/2014 08/21/2014 Inactive taking with a 3mg to make 3.5mg tablets warfarin 3 mg tablet RxNorm: 032911 1 Tablet(s) PO daily 201410/11/2014 Inactive diltiazem 90 mg tablet RxNorm: 670747 1 Tablet(s) PO TID 201408/30/2015 Inactive warfarin 1 mg tablet RxNorm: 381383 1/2 Tablet(s) PO daily 3.5mg 08/05/2014 08/11/2014 Inactive taking with a 3mg to make 3.5mg tablets cyclobenzaprine 10 mg tablet RxNorm: 560047 1 Tablet(s) PO QHS 08/04/2014 11/01/2014 Inactive buspirone 10 mg tablet RxNorm: 371615 1 Tablet(s) PO QID 201408/21/2014 Inactive allopurinol 300 mg tablet RxNorm: 341836 1 Tablet(s) PO daily 08/04/2014 11/01/2014 Inactive clonazepam 0.5 mg tablet RxNorm: 426377 1 Tablet(s) PO daily 09/02/2014 Inactive omeprazole 20 mg capsule,delayed release RxNorm: 100783 1 Capsule(s) PO BID 08/04/2014 11/01/2014 Inactive atenolol 25 mg tablet RxNorm: 005495 1 Tablet(s) PO daily 201411/01/2014 Inactive warfarin 3 mg tablet RxNorm: 861849 1 Tablet(s) PO daily 201408/04/2014 Inactive diphenhydramine 2 % topical cream RxNorm: 0352590 1 Application TOP Q6 PRN 07/24/2014 01/29/2015 Inactive diltiazem 90 mg tablet RxNorm: 240134 1 Tablet(s) PO BID 201408/04/2014 Inactive cyclobenzaprine 10 mg tablet RxNorm: 061820 1 Tablet(s) PO QH 07/24/2014 08/03/2014 Inactive warfarin 2.5 mg tablet RxNorm: 437570 1 Tablet(s) PO daily 08/22/2014 Inactive [SAVINGS FOR NON-COVERED DRUGS -- BIN:[id number], N: ASPROD1, Group: XXXXX, ID# [id number], Questions: . THIS IS NOT INSURANCE.] losartan 25 mg tablet RxNorm: 520749 1 Tablet(s) PO daily 201401/29/2015 Inactive [SAVINGS FOR NON-COVERED DRUGS -- BIN:[id number], PCN: ASPROD1, Group: XXXXX, ID # [id number], Questions: . THIS IS NOT INSURANCE.] isosorbide mononitrate oral RxNorm: 6057 oral No Start Date Active diltiazem ER 360 mg tablet,extended release 24 hr RxNorm: 212410 1 Tablet(s) PO daily No Start Date Active benazepril 10 mg tablet RxNorm: 318693 1 Tablet(s) PO daily No Start Date 07/14/2014 Inactive lisinopril 10 mg tablet RxNorm: 833794 1 Tablet(s) PO daily No Start Date 04/24/2016 Inactive clonazepam 0.5 mg tablet RxNorm: 542717 1 Tablet(s) PO daily No Start Date 08/03/2014 Inactive diltiazem 90 mg tablet RxNorm: 751338 1 Tablet(s) PO daily No Start Date 07/23/2014 Inactive atenolol 25 mg tablet RxNorm: 809498 1 Tablet(s) PO daily No Start Date 08/03/2014 Inactive buspirone 10 mg tablet RxNorm: 533915 1 Tablet(s) PO QID No Start Date 08/03/2014 Inactive omeprazole 20 mg capsule,delayed release RxNorm: 891632 1 Capsule(s) PO BID No Start Date 08/03/2014 Inactive allopurinol 300 mg tablet RxNorm: 672524 1 Tablet(s) PO daily No Start Date 08/03/2014 Inactive Xarelto 20 mg tablet RxNorm: 4543419 1 Tablet(s) PO daily No Start Date 03/03/2015 Inactive warfarin 2 mg tablet RxNorm: 722160 1 Tablet(s) PO daily No Start Date 07/16/2014 Inactive cyanocobalamin (vit B-12) 1,000 mcg/mL injection solution RxNorm: 308647 1 Milliliter(s) Inj monthly No Start Date Inactive cyclobenzaprine 10 mg tablet RxNorm: 625721 1 Tablet(s) PO BID No Start Date 07/23/2014 Inactive Eliquis 2.5 mg tablet RxNorm: 0596081 1 Tablet(s) PO daily No Start Date 03/03/2015 Inactive Medication Administered Medication Codes Instructions Start Date Status Kenalog 40 mg/mL suspension for injection RxNorm: 9586052 1Milliliter 01/30/2015 No longer Active ceftriaxone 500 mg solution for injection RxNorm: 1688092 10/14/2014 No longer Active Kenalog 40 mg/mL suspension for injection RxNorm: 7275878 Milliliter 10/14/2014 No longer Active Immunizations Vaccine Codes Date Status Influenza CVX: 141 12/10/2015 completed Assessments Condition Codes Effective Dates Other malaise ICD-10: R53.81 ICD-9: 780.79 12/12/2017 Essential (primary) hypertension ICD-10: I10 ICD-9: 401.9 12/12/2017 Vascular dementia without behavioral disturbance ICD-10: F01.50 ICD-9: 290.40 12/12/2017 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
--- OUTSIDE RECORDS SUMMARY | 2018-04-19 00:22 | XMS REPORT | CCD ---
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 Name Role Phone PP Unavailable CCM Unavailable Summary Purpose Interface Exchange Insurance Providers Payer name Policy type / Coverage type Covered constitution party ID Effective Begin Date Effective End Date WPS Medicare Part B Medicare Part B [id number] Unknown Family history Mother Diagnosis Age At Onset Hypertension Unknown Heart Attack Unknown Social History Social History Element Codes Description Effective Dates Marital status Unknown 07/15/2014 Marital status Unknown 07/15/2014 Number of children Unknown 0 07/15/2014 Number of children Unknown 0 07/15/2014 Employment Unknown Retired 07/15/2014 Employment Unknown Retired 07/15/[address]: 500227951 Has never smoked or chewed tobacco 07/15/[address]: 599971228 Has never smoked or chewed tobacco 07/15/[address]: 860587752 Never drinks alcohol 07/15/[address]: 141912280 Never drinks alcohol 07/15/2014 Allergies, Adverse Reactions, Alerts Substance Reaction Codes Entered Date Inactivated Date Status * NO KNOWN FOOD ALLERGIES Unknown 07/15/2014 No Inactive Date Active SULFA(SULFONAMIDE ANTIBIOTICS) Unknown 07/15/2014 No Inactive Date Active Past Medical History Illness Codes Condition Status Onset Date Resolved Date Essential (primary) hypertension ICD-9: 401.9 ICD-10: I10 Active 01/13/2016 Unknown senior living (current) use of anticoagulants ICD-9: V58.61 ICD-10: [...] hypertension ICD-9: 401.9 ICD-10: I10 01/13/2016 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 ICD-10: [...] Start Date Stop Date Status Fill Instructions Xanax 0.25 mg tablet RxNorm: 192811 1 Tablet(s) PO TID as needed anxiety 01/01/2018 01/20/2018 Active hydrocodone 7.5 mg-acetaminophen 325 mg tablet RxNorm: 305941 1 Tablet(s) PO daily as needed pain 12/12/20172017 Inactive cyanocobalamin (vit B-12) 1,000 mcg/mL injection solution RxNorm: 621348 INJECT 1 ML INTRAMUSCULARLY 2 TIMES A MONTH FOR 2 MONTHS, THEN ONCE A MONTH THEREAFTER 11/28/2017 01/22/2018 Active hydrocodone 7.5 mg-acetaminophen 325 mg tablet RxNorm: 596133 1-2 Tablet(s) PO Q4- 6H as needed pain 11/21/2017 12/11/2017 Inactive Lasix 40 mg tablet RxNorm: 409635 TAKE ONE TABLET BY MOUTH DAILY 10/23/2017 04/20/2018 Active Lexapro 5 mg tablet RxNorm: 812617 TAKE ONE TABLET BY MOUTH EVERY EVENING 10/23/2017 12/21/2017 Inactive buspirone 10 mg tablet RxNorm: 496140 TAKE ONE TABLET BY MOUTH THREE TIMES A DAY 10/02/2017 02/28/2018 Active omeprazole 20 mg capsule,delayed release RxNorm: 703117 TAKE ONE CAPSULE BY MOUTH TWICE A DAY 09/13/2017 03/11/2018 Active Levaquin 750 mg tablet RxNorm: 394180 1 tab every other day for 5 doses 1 Tablet(s ) PO 08/29/2017 08/28/2017 Inactive Levaquin 750 mg tablet RxNorm: 058858 1 tab every other day for 5 doses 1 Tablet(s ) PO 08/29/2017 09/02/2017 Inactive potassium chloride ER 10 mEq tablet,extended release RxNorm: 165754 TAKE TWO TABLETS BY MOUTH THREE TIMES A DAY 08/28/2017 12/25/2017 Inactive hydrocodone 7.5 mg-acetaminophen 325 mg tablet RxNorm: 645827 1-2 Tablet(s) PO Q4- 6H as needed pain 08/28/2017 09/26/2017 Inactive metoprolol tartrate 25 mg tablet RxNorm: 633992 TAKE 1/2 TABLET BY MOUTH TWO TIMES A DAY 07/25/2017 07/19/2018 Active Lexapro 5 mg tablet RxNorm: 015790 TAKE ONE TABLET BY MOUTH EVERY EVENING 07/21/2017 10/18/2017 Inactive hydrocodone 7.5 mg-acetaminophen 325 mg tablet RxNorm: 301493 1-2 Tablet(s) PO Q4- 6H as needed pain 07/19/2017 08/17/2017 Inactive hydrocodone 7.5 mg-acetaminophen 325 mg tablet RxNorm: 049154 1-2 Tablet(s) PO Q4- 6H as needed pain 07/03/2017 07/18/2017 Inactive hydrocodone 7.5 mg-acetaminophen 325 mg tablet RxNorm: 327377 1-2 Tablet(s) PO Q4- 6H as needed pain 05/25/2017 06/23/2017 Inactive cyanocobalamin (vit B-12) 1,000 mcg/mL injection solution RxNorm: 935187 INJECT 1 ML INTRAMUSCULARLY 2 TIMES A MONTH FOR 2 MONTHS, THEN ONCE A MONTH THEREAFTER 05/19/2017 08/10/2017 Inactive warfarin 5 mg tablet RxNorm: 394112 TAKE ONE TABLET BY MOUTH DAILY 04/26/2017 04/20/2018 Active buspirone 10 mg tablet RxNorm: 653203 TAKE ONE TABLET BY MOUTH THREE TIMES A DAY 04/26/2017 09/22/2017 Inactive Xanax 0.25 mg tablet RxNorm: 229975 1 Tablet(s) PO TID as needed anxiety 04/17/2017 05/14/2017 Inactive Levaquin 500 mg tablet RxNorm: 204541 1 Tablet(s) PO Q72H x3 doses 04/11/2017 04/10/2017 Inactive Levaquin 500 mg tablet RxNorm: 459675 1 Tablet(s) PO Q72H x3 doses 04/11/2017 07/03/2017 Inactive potassium chloride ER 10 mEq tablet,extended release RxNorm: 949645 TAKE TWO TABLETS BY MOUTH THREE TIMES A DAY 03/27/2017 08/23/2017 Inactive Tamiflu 75 mg capsule RxNorm: 781392 1 Capsule(s) PO BID 201707/03/2017 Inactive Zofran 4 mg tablet RxNorm: 344823 1 Tablet(s) PO QID as needed nausea 03/23/2017 06/20/2017 Inactive Zofran 4 mg tablet RxNorm: 611649 1 Tablet(s) PO QID as needed nausea 03/23/2017 03/22/2017 Inactive Tamiflu 75 mg capsule RxNorm: 986973 1 Capsule(s) PO BID 201703/22/2017 Inactive lisinopril 10 mg tablet RxNorm: 889423 TAKE ONE-HALF TABLET BY MOUTH DAILY 03/10/2017 06/02/2018 Active metolazone 5 mg tablet RxNorm: 565582 1 Tablet(s) PO TIW 201703/01/2018 Active hydrocodone 7.5 mg-acetaminophen 325 mg tablet RxNorm: 036804 1-2 Tablet(s) PO Q4- 6H as needed pain 02/23/2017 05/24/2017 Inactive omeprazole 20 mg capsule,delayed release RxNorm: 117736 Capsule(s) TAKE ONE CAPSULE BY MOUTH TWICE A DAY 02/08/2017 Inactive metolazone 5 mg tablet RxNorm: 711269 TAKE 1 TABLET BY MOUTH TWICE WEEKLY 02/08/2017 03/06/2017 Inactive Lexapro 5 mg tablet RxNorm: 825377 1 Tablet(s) PO QPM 201603/06/2017 Inactive hydrocodone 7.5 mg-acetaminophen 325 mg tablet RxNorm: 489304 1-2 Tablet(s) PO Q4- 6H as needed pain 01/16/2017 02/22/2017 Inactive Lasix 40 mg tablet RxNorm: 857796 TAKE ONE TABLET BY MOUTH DAILY 01/11/2017 10/07/2017 Inactive metoprolol tartrate 25 mg tablet RxNorm: 908650 TAKE 1/2 TABLET BY MOUTH TWO TIMES A DAY 01/11/2017 07/09/2017 Inactive allopurinol 300 mg tablet RxNorm: 967026 TAKE ONE TABLET BY MOUTH DAILY 01/09/2017 06/07/2017 Inactive hydrocodone 7.5 mg-acetaminophen 325 mg tablet RxNorm: 256062 1-2 Tablet(s) PO Q4- 6H as needed pain 12/06/2016 01/15/2017 Inactive lisinopril 10 mg tablet RxNorm: 515232 TAKE ONE-HALF TABLET BY MOUTH DAILY 12/02/2016 03/09/2017 Inactive buspirone 10 mg tablet RxNorm: 303537 TAKE ONE TABLET BY MOUTH THREE TIMES A DAY 10/25/2016 01/22/2017 Inactive buspirone 10 mg tablet RxNorm: 913994 TAKE ONE TABLET BY MOUTH THREE TIMES A DAY 10/25/2016 10/24/2016 Inactive hydrocodone 7.5 mg-acetaminophen 325 mg tablet RxNorm: 795516 1-2 or 2 Tablet(s) PO Q4-6H as needed pain 10/25/20162016 Inactive cyanocobalamin (vit B-12) 1,000 mcg/mL injection solution RxNorm: 710968 INJECT 1 ML INTRAMUSCULARLY 2 TIMES A MONTH FOR 2 MONTHS, THEN ONCE A MONTH THEREAFTER 10/24/2016 02/12/2017 Inactive metolazone 5 mg tablet RxNorm: 028410 TAKE 1 TABLET BY MOUTH TWICE WEEKLY 09/23/2016 01/12/2017 Inactive hydrocodone 7.5 mg-acetaminophen 325 mg tablet RxNorm: 846225 1-2 or 2 Tablet(s) PO Q4-6H as needed pain 09/13/20162016 Inactive Keflex 500 mg capsule RxNorm: 639602 1 Capsule(s) PO TID 201609/15/2016 Inactive Take with a probiotic BID Keflex 500 mg capsule RxNorm: 266423 1 Capsule(s) PO TID 201609/08/2016 Inactive Take with a probiotic BID metoprolol tartrate 25 mg tablet RxNorm: 665712 TAKE 1/2 TABLET BY MOUTH TWO TIMES A DAY 09/07/2016 01/04/2017 Inactive potassium chloride ER 10 mEq tablet,extended release RxNorm: 390900 TAKE TWO TABLETS BY MOUTH THREE TIMES A DAY 09/01/2016 02/27/2017 Inactive hydrocodone 7.5 mg-acetaminophen 325 mg tablet RxNorm: 099938 1 or 2 Tablet(s) PO Q4-6H as needed pain 08/31/20162016 Inactive omeprazole 20 mg capsule,delayed release RxNorm: 125095 TAKE ONE CAPSULE BY MOUTH TWICE A DAY 08/24/2016 02/07/2017 Inactive hydrocodone 7.5 mg-acetaminophen 325 mg tablet RxNorm: 700729 1 or 2 Tablet(s) PO Q4-6H as needed pain 08/05/20162016 Inactive lisinopril 10 mg tablet RxNorm: 487309 TAKE ONE-HALF TABLET BY MOUTH DAILY 07/28/2016 12/01/2016 Inactive hydrocodone 7.5 mg-acetaminophen 325 mg tablet RxNorm: 074704 1 or 2 Tablet(s) PO Q4-6H as needed pain 07/05/20162016 Inactive allopurinol 300 mg tablet RxNorm: 869519 TAKE ONE TABLET BY MOUTH DAILY 06/16/2016 12/12/2016 Inactive metoprolol tartrate 25 mg tablet RxNorm: 551655 TAKE 1/2 TABLET BY MOUTH TWO TIMES A DAY 06/16/2016 08/14/2016 Inactive buspirone 10 mg tablet RxNorm: 115213 TAKE ONE TABLET BY MOUTH THREE TIMES A DAY 06/15/2016 10/12/2016 Inactive hydrocodone 7.5 mg-acetaminophen 325 mg tablet RxNorm: 854965 1 or 2 Tablet(s) PO Q4-6H as needed pain 06/07/20162016 Inactive metoprolol tartrate 25 mg tablet RxNorm: 635447 1/2 Tablet(s) PO QPM 05/10/2016 06/08/2016 Inactive lisinopril 10 mg tablet RxNorm: 436933 1/2 Tablet(s) PO daily 04/26/2016 07/27/2016 Inactive hydrocodone 7.5 mg-acetaminophen 325 mg tablet RxNorm: 448800 1 or 2 Tablet(s) PO Q4-6H as needed pain 04/25/20162016 Inactive lisinopril 10 mg tablet RxNorm: 162921 1/2 Tablet(s) PO daily 04/25/2016 04/25/2016 Inactive metoprolol tartrate 25 mg tablet RxNorm: 320891 1/2 Tablet(s) PO BID 04/25/2016 05/09/2016 Inactive allopurinol 300 mg tablet RxNorm: 428278 TAKE ONE TABLET BY MOUTH DAILY 04/19/2016 06/15/2016 Inactive metolazone 5 mg tablet RxNorm: 492593 TAKE 1 TABLET BY MOUTH TWICE WEEKLY 04/19/2016 09/05/2016 Inactive potassium chloride ER 10 mEq tablet,extended release RxNorm: 091196 2 Tablet(s) PO TID 03/21/2016 08/17/2016 Inactive warfarin 5 mg tablet RxNorm: 921406 1 Tablet(s) PO daily TAKE ONE TABLET BY MOUTH DAILY 03/21/2016 03/15/[address] Echevarria manages potassium chloride ER 10 mEq tablet,extended release(part/ cryst) RxNorm: 5020548 2 Tablet(s) PO TID 03/11/2016 03/20/2016 Inactive Xanax 0.25 mg tablet RxNorm: 450280 1 Tablet(s) PO TID as needed anxiety 03/10/2016 04/06/2016 Inactive Xanax 0.25 mg tablet RxNorm: 254273 1 Tablet(s) PO TID as needed anxiety 03/10/2016 12/31/2017 Inactive hydrocodone 7.5 mg-acetaminophen 325 mg tablet RxNorm: 600231 1 or 2 Tablet(s) PO Q4-6H as needed pain 02/26/20162016 Inactive Flonase Allergy Relief 50 mcg/actuation nasal spray, suspension RxNorm: 6429472 1 Colman NASAL each nare daily 01/19/2016 03/18/2016 Inactive cefdinir 300 mg capsule RxNorm: 982360 1 Capsule(s) PO BID 01/23/2016 Inactive take probiotic BID x 7 days Flonase Allergy Relief 50 mcg/actuation nasal spray, suspension RxNorm: 8226525 1 Colman NASAL each nare daily 01/19/2016 01/18/2016 Inactive allopurinol 300 mg tablet RxNorm: 814281 TAKE ONE TABLET BY MOUTH DAILY 01/18/2016 04/16/2016 Inactive Lasix 40 mg tablet RxNorm: 395737 1 Tablet(s) PO daily 201501/07/2017 Inactive (this was only twice daily x1 week) now it's daily cefdinir 300 mg capsule RxNorm: 340901 1 Capsule(s) PO BID 01/17/2016 Inactive take probiotic BID x 7 days cefdinir 300 mg capsule RxNorm: 612511 1 Capsule(s) PO BID 01/10/2016 Inactive buspirone 10 mg tablet RxNorm: 399631 TAKE ONE TABLET BY MOUTH THREE TIMES A DAY 01/11/2016 06/08/2016 Inactive hydrocodone 7.5 mg-acetaminophen 325 mg tablet RxNorm: 807934 1 or 2 Tablet(s) PO Q4-6H as needed pain 12/28/20152015 Inactive potassium chloride ER 10 mEq tablet,extended release(part/ cryst) RxNorm: 4176697 2 po TID x 2 days then 2 po BID Tablet(s) 12/28/2015 03/10/2016 Inactive potassium chloride ER 10 mEq tablet,extended release(part/ cryst) RxNorm: 2088585 TAKE ONE TABLET BY MOUTH TWICE A DAY FOR 1 WEEK THEN RETURN TO DAILY 12/28/2015 12/27/2015 Inactive meclizine 25 mg tablet RxNorm: 739614 1 Tablet(s) PO BID PRN No Stop Date Active potassium chloride ER 10 mEq tablet,extended release(part/ cryst) RxNorm: 6426661 1 Tablet(s) PO TID 12/08/2015 03/10/2016 Inactive potassium chloride ER 10 mEq tablet,extended release(part/ cryst) RxNorm: 0955065 2 Tablet(s) PO daily 11/26/20152015 Inactive cyanocobalamin (vit B-12) 1,000 mcg/mL injection solution RxNorm: 272252 INJECT 1 ML INTRAMUSCULARLY 2 TIMES A MONTH FOR 2 MONTHS, THEN ONCE A MONTH THEREAFTER 11/26/2015 04/23/2016 Inactive potassium chloride ER 10 mEq tablet,extended release(part/ cryst) RxNorm: 2966653 3 Tablet(s) PO daily 11/23/20152015 Inactive Lasix 40 mg tablet RxNorm: 956788 1 Tablet(s) PO daily 201501/13/2016 Inactive (this was only twice daily x1 week) now it's daily metolazone 5 mg tablet RxNorm: 976010 1 Tablet(s) BIW TAKE ONE TABLET BY MOUTH DAILY 11/12/2015 04/18/2016 Inactive hydrocodone 7.5 mg-acetaminophen 325 mg tablet RxNorm: 762446 1 or 2 Tablet(s) PO Q4-6H as needed pain 11/12/20152015 Inactive Lasix 40 mg tablet RxNorm: 246209 1 Tablet(s) PO daily 201511/11/2015 Inactive (this was only twice daily x1 week) now it's daily metolazone 5 mg tablet RxNorm: 458387 Tablet(s) TAKE ONE TABLET BY MOUTH DAILY 10/22/2015 10/29/2015 Inactive potassium chloride ER 10 mEq tablet,extended release(part/ cryst) RxNorm: 5323093 1 Tablet(s) PO daily 10/08/20152015 Inactive twice daily x 1 week then return to daily Lasix 40 mg tablet RxNorm: 633513 1 Tablet(s) PO daily 201511/09/2015 Inactive twice daily x 1 week then daily thereafter Keflex 500 mg capsule RxNorm: 903846 1 Capsule(s) PO TID 201510/02/2015 Inactive Keflex 500 mg capsule RxNorm: 230579 1 Capsule(s) PO TID 201509/22/2015 Inactive hydrocodone 7.5 mg-acetaminophen 325 mg tablet RxNorm: 014953 1 or 2 Tablet(s) PO Q4-6H as needed pain 09/22/20152015 Inactive potassium chloride ER 10 mEq tablet,extended release(part/ cryst) RxNorm: 6064724 1 Tablet(s) PO BID 09/22/2015 10/07/2015 Inactive twice daily x 1 week then return to daily Lasix 40 mg tablet RxNorm: 806877 1 Tablet(s) PO BID 201510/07/2015 Inactive twice daily x 1 week then daily thereafter allopurinol 300 mg tablet RxNorm: 341242 1 Tablet(s) PO daily 09/09/2015 01/06/2016 Inactive diltiazem 90 mg tablet RxNorm: 721552 Tablet(s) TAKE ONE TABLET BY MOUTH THREE TIMES A DAY 09/02/2015 01/28/2016 Inactive diltiazem 90 mg tablet RxNorm: 348362 TAKE ONE TABLET BY MOUTH THREE TIMES A DAY 08/31/2015 01/28/2016 Inactive diltiazem 90 mg tablet RxNorm: 496984 TAKE ONE TABLET BY MOUTH THREE TIMES A DAY 08/31/2015 09/01/2015 Inactive Xanax 0.25 mg tablet RxNorm: 850965 1 Tablet(s) PO TID as needed anxiety 08/28/2015 09/26/2015 Inactive Xanax 0.25 mg tablet RxNorm: 064689 1 Tablet(s) PO TID as needed anxiety 08/28/2015 08/27/2015 Inactive potassium chloride ER 10 mEq tablet,extended release(part/ cryst) RxNorm: 871529 TAKE ONE TABLET BY MOUTH DAILY 08/27/2015 2015 Inactive omeprazole 20 mg capsule,delayed release RxNorm: 162838 TAKE ONE CAPSULE BY MOUTH TWICE A DAY 08/16/2015 02/11/2016 Inactive omeprazole 20 mg capsule,delayed release RxNorm: 961175 TAKE ONE CAPSULE BY MOUTH TWICE A DAY 08/16/2015 08/15/2015 Inactive hydrocodone 7.5 mg-acetaminophen 325 mg tablet RxNorm: 455822 1 or 2 Tablet(s) PO Q4-6H as needed pain 08/11/20152015 Inactive omeprazole 20 mg capsule,delayed release RxNorm: 220721 Capsule(s) TAKE ONE CAPSULE BY MOUTH TWICE A DAY 08/03/2015 Inactive omeprazole 20 mg capsule,delayed release RxNorm: 910007 Capsule(s) TAKE ONE CAPSULE BY MOUTH TWICE A DAY 07/31/2015 Inactive buspirone 10 mg tablet RxNorm: 281082 TAKE ONE TABLET BY MOUTH THREE TIMES A DAY 07/13/2015 01/08/2016 Inactive metolazone 5 mg tablet RxNorm: 534102 TAKE ONE TABLET BY MOUTH DAILY 07/02/2015 07/09/2015 Inactive metolazone 5 mg tablet RxNorm: 656626 1 Tablet(s) PO daily 06/18/2015 Inactive metolazone 5 mg tablet RxNorm: 180688 1 Tablet(s) PO daily 06/14/2015 Inactive hydrocodone 7.5 mg-acetaminophen 325 mg tablet RxNorm: 115578 1or2 1 or 2 Tablet(s ) PO Q4-6H as needed pain 06/12/201507/10 Inactive warfarin 1 mg tablet RxNorm: 501196 1 Tablet(s) 04/15/2015 06/22/2015 Inactive take with 3mg to make 4mg on Mon and repeat in 1 week. hydrocodone 7.5 mg-acetaminophen 325 mg tablet RxNorm: 325553 1or2 or 2 Tablet(s) PO Q4-6H as needed pain 03/31/20152015 Inactive hydrocodone 7.5 mg-acetaminophen 325 mg tablet RxNorm: 667229 1or2 or 2 Tablet(s) PO Q4-6H as needed pain 03/25/20152015 Inactive warfarin 5 mg tablet RxNorm: 800748 1 Tablet(s) PO daily TAKE ONE TABLET BY MOUTH DAILY 03/05/2015 06/22/2015 Inactive Xarelto 20 mg tablet RxNorm: 3668125 1 Tablet(s) PO QPM 201503/04/2015 Inactive losartan 100 mg tablet RxNorm: 678852 1 Tablet(s) PO daily 05/201406/22/2015 Inactive [SAVINGS FOR NON-COVERED DRUGS -- BIN:[id number], PCN: ASPROD1, Group: XXXXX, ID# [id number], Questions: . THIS IS NOT INSURANCE.] Kenalog 40 mg/mL suspension for injection RxNorm: 7756795 1 Milliliter(s) Inj 01/30/2015 01/30/2015 Inactive hydrocodone 7.5 mg-acetaminophen 325 mg tablet RxNorm: 107975 1or2 or 2 Tablet(s) PO Q4-6H as needed pain 01/15/20152014 Inactive Lasix 40 mg tablet RxNorm: 986693 1 Tablet(s) PO daily 201409/21/2015 Inactive as needed for swelling-take potassium when you take lasix potassium chloride ER 10 mEq tablet,extended release(part/ cryst) RxNorm: 572728 2 Tablet(s) PO daily 01/06/2015 01/19/2015 Inactive Lasix 40 mg tablet RxNorm: 529247 1 Tablet(s) PO daily 201401/06/2015 Inactive Ok to fill 20mg, not 40mg as needed for swelling-take potassium when you take lasix potassium chloride ER 10 mEq tablet,extended release(part/ cryst) RxNorm: 730709 1 Tablet(s) PO BID 12/30/2014 01/05/2015 Inactive Vitamin D2 50,000 unit capsule RxNorm: 935850 TAKE 1 CAPSULE BY MOUTH ONCE WEEKLY FOR 12 WEEKS 12/30/2014 03/23/2015 Inactive potassium chloride ER 10 mEq tablet,extended release(part/ cryst) RxNorm: 462399 1 Tablet(s) PO daily 12/26/2014 12/29/2014 Inactive potassium chloride ER 10 mEq tablet,extended release(part/ cryst) RxNorm: 628241 1 Tablet(s) PO daily 12/26/2014 12/25/2014 Inactive omeprazole 20 mg capsule,delayed release RxNorm: 841612 TAKE ONE CAPSULE BY MOUTH TWICE A DAY 12/24/2014 07/21/2015 Inactive Flagyl 500 mg tablet RxNorm: 201460 1 Tablet(s) PO TID 201412/20/2014 Inactive Flagyl 500 mg tablet RxNorm: 568682 1 Tablet(s) PO TID 201412/10/2014 Inactive warfarin 3 mg tablet RxNorm: 729609 TAKE ONE TABLET BY MOUTH DAILY 11/13/2014 01/29/2015 Inactive warfarin 3 mg tablet RxNorm: 572553 TAKE ONE TABLET BY MOUTH DAILY 11/13/2014 01/29/2015 Inactive warfarin 3 mg tablet RxNorm: 946362 TAKE ONE TABLET BY MOUTH DAILY 11/13/2014 03/04/2015 Inactive warfarin 3 mg tablet RxNorm: 864616 1 Tablet(s) PO daily 201403/04/2015 Inactive allopurinol 300 mg tablet RxNorm: 022164 1 Tablet(s) PO daily 11/11/2014 03/10/2015 Inactive hydrocodone 7.5 mg-acetaminophen 325 mg tablet RxNorm: 466274 1or2 or 2 Tablet(s) PO Q4-6H as needed pain 11/10/20142014 Inactive hydrocodone 7.5 mg-acetaminophen 325 mg tablet RxNorm: 496493 1or2 or 2 Tablet(s) PO Q4-6H as needed pain 10/15/20142014 Inactive hydrocodone 7.5 mg-acetaminophen 325 mg tablet RxNorm: 889038 1or2 or 2 Tablet(s) PO Q4-6H as needed pain 10/15/20142014 Inactive Kenalog 40 mg/mL suspension for injection RxNorm: 6914963 Milliliter(s) Inj 10/14/2014 10/14/2014 Inactive ceftriaxone 500 mg solution for injection RxNorm: 8560428 Inj 10/14/2014 10/14/2014 Inactive Zithromax Z-Chito 250 mg tablet RxNorm: 476362 1 Tablet(s) PO UD 10/14/2014 01/29/2015 Inactive zpack cefdinir 300 mg capsule RxNorm: 504386 1 Capsule(s) PO BID 10/20/2014 Inactive Vitamin D2 50,000 unit capsule RxNorm: 678955 1 Capsule(s) PO weekly x 12 weeks 09/24/2014 09/23/2014 Inactive Vitamin D2 50,000 unit capsule RxNorm: 570588 1 Capsule(s) PO weekly x 12 weeks 09/24/2014 12/22/2014 Inactive warfarin 1 mg tablet RxNorm: 800176 TAKE 1/2 TABLET BY MOUTH DAILY WITH 3MG TABLET TO EQUAL 3.5MG DAILY 09/22/201404/2014 Inactive warfarin 1 mg tablet RxNorm: 790501 1/2 Tablet(s) PO daily 3.5mg 08/26/2014 2014 Inactive taking with a 3mg to make 3.5mg tablets Lasix 20 mg tablet RxNorm: 247301 1 Tablet(s) PO QDAY PRN 09/24/2014 Inactive Ok to fill 20mg, not 40mg as needed for swelling-take potassium when you take lasix buspirone 10 mg tablet RxNorm: 266700 1 Tablet(s) PO TID 201411/25/2014 Inactive takes it BID but if she feels anxious she takes one during the day Lasix 20 mg tablet RxNorm: 312373 1 Tablet(s) PO QDAY PRN 08/25/2014 Inactive as needed for swelling-take potassium when you take lasix warfarin 1 mg tablet RxNorm: 143089 1/2 Tablet(s) PO daily 3.5mg 08/15/2014 08/21/2014 Inactive taking with a 3mg to make 3.5mg tablets warfarin 3 mg tablet RxNorm: 099412 1 Tablet(s) PO daily 201410/11/2014 Inactive diltiazem 90 mg tablet RxNorm: 764744 1 Tablet(s) PO TID 201408/30/2015 Inactive warfarin 1 mg tablet RxNorm: 958262 1/2 Tablet(s) PO daily 3.5mg 08/05/2014 08/11/2014 Inactive taking with a 3mg to make 3.5mg tablets cyclobenzaprine 10 mg tablet RxNorm: 449420 1 Tablet(s) PO QHS 08/04/2014 11/01/2014 Inactive buspirone 10 mg tablet RxNorm: 271251 1 Tablet(s) PO QID 201408/21/2014 Inactive allopurinol 300 mg tablet RxNorm: 374519 1 Tablet(s) PO daily 08/04/2014 11/01/2014 Inactive clonazepam 0.5 mg tablet RxNorm: 791045 1 Tablet(s) PO daily 09/02/2014 Inactive omeprazole 20 mg capsule,delayed release RxNorm: 454960 1 Capsule(s) PO BID 08/04/2014 11/01/2014 Inactive atenolol 25 mg tablet RxNorm: 937331 1 Tablet(s) PO daily 201411/01/2014 Inactive warfarin 3 mg tablet RxNorm: 427083 1 Tablet(s) PO daily 201408/04/2014 Inactive diphenhydramine 2 % topical cream RxNorm: 2432923 1 Application TOP Q6 PRN 07/24/2014 01/29/2015 Inactive diltiazem 90 mg tablet RxNorm: 943900 1 Tablet(s) PO BID 201408/04/2014 Inactive cyclobenzaprine 10 mg tablet RxNorm: 849042 1 Tablet(s) PO QH 07/24/2014 08/03/2014 Inactive warfarin 2.5 mg tablet RxNorm: 465401 1 Tablet(s) PO daily 08/22/2014 Inactive [SAVINGS FOR NON-COVERED DRUGS -- BIN:[id number], PCN: ASPROD1, Group: XXXXX, ID# [id number], Questions: . THIS IS NOT INSURANCE.] losartan 25 mg tablet RxNorm: 141320 1 Tablet(s) PO daily 201401/29/2015 Inactive [SAVINGS FOR NON-COVERED DRUGS -- BIN:170815, PCN: ASPROD1, Group: XXXXX, ID # [id number], Questions: . THIS IS NOT INSURANCE.] isosorbide mononitrate oral RxNorm: 6057 oral No Start Date Active diltiazem ER 360 mg tablet,extended release 24 hr RxNorm: 128177 1 Tablet(s) PO daily No Start Date Active benazepril 10 mg tablet RxNorm: 419119 1 Tablet(s) PO daily No Start Date 07/14/2014 Inactive lisinopril 10 mg tablet RxNorm: 402123 1 Tablet(s) PO daily No Start Date 04/24/2016 Inactive clonazepam 0.5 mg tablet RxNorm: 313301 1 Tablet(s) PO daily No Start Date 08/03/2014 Inactive diltiazem 90 mg tablet RxNorm: 010527 1 Tablet(s) PO daily No Start Date 07/23/2014 Inactive atenolol 25 mg tablet RxNorm: 454831 1 Tablet(s) PO daily No Start Date 08/03/2014 Inactive buspirone 10 mg tablet RxNorm: 243023 1 Tablet(s) PO QID No Start Date 08/03/2014 Inactive omeprazole 20 mg capsule,delayed release RxNorm: 870485 1 Capsule(s) PO BID No Start Date 08/03/2014 Inactive allopurinol 300 mg tablet RxNorm: 598688 1 Tablet(s) PO daily No Start Date 08/03/2014 Inactive Xarelto 20 mg tablet RxNorm: 7057686 1 Tablet(s) PO daily No Start Date 03/03/2015 Inactive warfarin 2 mg tablet RxNorm: 107662 1 Tablet(s) PO daily No Start Date 07/16/2014 Inactive cyanocobalamin (vit B-12) 1,000 mcg/mL injection solution RxNorm: 568845 1 Milliliter(s) Inj monthly No Start Date Inactive cyclobenzaprine 10 mg tablet RxNorm: 644614 1 Tablet(s) PO BID No Start Date 07/23/2014 Inactive Eliquis 2.5 mg tablet RxNorm: 6836858 1 Tablet(s) PO daily No Start Date 03/03/2015 Inactive Medication Administered Medication Codes Instructions Start Date Status Kenalog 40 mg/mL suspension for injection RxNorm: 9222240 1Milliliter 01/30/2015 No longer Active Kenalog 40 mg/mL suspension for injection RxNorm: 8728808 Milliliter 10/14/2014 No longer Active ceftriaxone 500 mg solution for injection RxNorm: 7443872 10/14/2014 No longer Active Immunizations Vaccine Codes Date Status Influenza CVX: 141 12/10/2015 completed Assessments Condition Codes Effective Dates Other malaise ICD-10: R53.81 ICD-9: 780.79 12/12/2017 Essential (primary) hypertension ICD-10: I10 ICD-9: 401.9 12/12/2017 Vascular dementia without behavioral disturbance ICD-10: F01.50 ICD-9: 290.40 12/12/2017 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 ICD-9: [...] level monitoring ICD-10: Z51.81 ICD-9: V58.83 06/02/2015 Vitamin D deficiency, unspecified ICD-10: E55.9 ICD-9: 268.9 03/31/2015 Anemia, unspecified ICD-10: D64.9 ICD-9: 285.9 03/31/2015 Allergic rhinitis due to pollen ICD-10: [...] Code Item Item Code Result Date Pt [id number] PT 27.0 seconds 01/15/2018 Pt Vgb6387 INR 2.5 01/15/2018 Pt Xid4083 Low Intensity - 1.5-2.0 01/15/2018 Pt Rqd3472 Mod intensity - 2.0-3.0 01/15/2018 Pt Pee2863 Hi intensity - 3.0-4.0 01/15/2018 Pt Bvf9796 PT 29.3 seconds 12/18/2017 Pt Tlf8964 INR 2.8 12/18/2017 Pt Zpn4934 Low Intensity - 1.5-2.0 12/18/2017 Pt Sai7088 Mod intensity - 2.0-3.0 12/18/2017 Pt Tnt9066 Hi intensity - 3.0-4.0 12/18/2017 Metabolic Ord15 [...] 26.1 pg 09/29/2015 Cbc With Differential Ord2 Mckinley% 18.3 % 09/29/2015 Cbc With Differential Ord2 [...] 1.41 K/ul 09/29/2015 Cbc With Differential Ord2 Mck[place] ABS# 1.8 K/ul 09/29/2015 Cbc With Differential Ord2 Eos ABS# 0.2 K/ul 09/29/2015 Cbc With Differential Ord2 Baso ABS# 0.1 K/ul 09/29/2015 Comp Metabolic Ayw096 NA 138 mEq/L 09/29/2015 Comp Metabolic Zcs491 K 4.6 mEq/L 09/29/2015 Comp Metabolic Ebe966 CL 102 mEq/L 09/29/2015 Comp Metabolic Zdj124 CO2 28.0 mEq/L 09/29/2015 Comp Metabolic Dcs127 ANION GAP 13 09/29/2015 Comp Metabolic Lxd819 GLUCOSE 83 mg/dL 09/29/2015 Comp Metabolic Gqs765 Creat 1.1 mg/dL 09/29/2015 Comp Metabolic Jhk911 eGFR 52 ml/min/1.73m2 09/29/2015 Comp Metabolic Jjh474 BUN 18 mg/dL 09/29/2015 Comp Metabolic Vnn239 B/C Ratio 16.7 Ratio 09/29/2015 Comp Metabolic Wsh576 CALCIUM 9.6 mg/dL 09/29/2015 Comp Metabolic Dqh153 ALK PHOS 188 U/L 09/29/2015 Comp Metabolic Blz613 AST(SGOT) 19 U/L 09/29/2015 Comp Metabolic Kjs228 ALT(SGPT) 12 U/L 09/29/2015 Comp Metabolic Ayh278 BILI T 0.6 mg/dL 09/29/2015 Comp Metabolic Yne236 ALBUMIN 4.0 g/dL 09/29/2015 Comp Metabolic Wlr484 TPRO 6.6 g/dL 09/29/2015 Comp Metabolic Cbn412 GLOB 2.6 g/dL 09/29/2015 Comp Metabolic Qps094 A/G Ratio 1.5 Ratio 09/29/2015 Comp Metabolic Tfl868 Osmo 277 mOsmo 09/29/2015 Cbc With Differential [...] 25.7 pg 09/22/2015 Cbc With Differential Ord2 Mckinley% 15.4 % 09/22/2015 Cbc With Differential Ord2 [...] 1.81 K/ul 09/22/2015 Cbc With Differential Ord2 Mck[place] ABS# 1.7 K/ul 09/22/2015 Cbc With Differential Ord2 Eos ABS# 0.1 K/ul 09/22/2015 Cbc With Differential Ord2 Baso ABS# 0.1 K/ul 09/22/2015 Comp Metabolic Nbi225 NA 134 mEq/L 09/22/2015 Comp Metabolic Tpa730 K 4.7 mEq/L 09/22/2015 Comp Metabolic Qqo234 CL 98 mEq/L 09/22/2015 Comp Metabolic Quo318 CO2 26.0 mEq/L 09/22/2015 Comp Metabolic Vte035 ANION GAP 15 09/22/2015 Comp Metabolic Xhf767 GLUCOSE 83 mg/dL 09/22/2015 Comp Metabolic Vwq607 Creat 1.1 mg/dL 09/22/2015 Comp Metabolic Vxf928 eGFR 52 ml/min/1.73m2 09/22/2015 Comp Metabolic Euc685 BUN 19 mg/dL 09/22/2015 Comp Metabolic Heo491 B/C Ratio 17.8 Ratio 09/22/2015 Comp Metabolic Nyk446 CALCIUM 9.4 mg/dL 09/22/2015 Comp Metabolic Xei749 ALK PHOS 182 U/L 09/22/2015 Comp Metabolic Ggg391 AST(SGOT) 30 U/L 09/22/2015 Comp Metabolic Tac309 ALT(SGPT) 16 U/L 09/22/2015 Comp Metabolic Xqv121 BILI T 0.8 mg/dL 09/22/2015 Comp Metabolic Tld378 ALBUMIN 3.9 g/dL 09/22/2015 Comp Metabolic Sor024 TPRO 6.8 g/dL 09/22/2015 Comp Metabolic Jic194 GLOB 2.9 g/dL 09/22/2015 Comp Metabolic Aox016 A/G Ratio 1.3 Ratio 09/22/2015 Comp Metabolic Hdi767 Osmo 270 mOsmo 09/22/2015 Cbc With Differential [...] 16.5 % 06/02/2015 Cbc With Differential Ord2 Mckinley% 16.6 % 06/02/2015 Cbc With Differential Ord2 MCH 27.8 pg 06/02/2015 Cbc With Differential Ord2 Eos% 0.5 % 06/02/2015 Cbc With Differential Ord2 MCHC 31.7 pg 06/02/2015 Cbc With Differential Ord2 Baso% 0.3 % 06/02/2015 Cbc With Differential Ord2 PLT 457 K/ul 06/02/2015 Cbc With Differential Ord2 Neut ABS# 6.95 K/ul 06/02/2015 Cbc With Differential Ord2 RDW 16.6 % 06/02/2015 Cbc With Differential Ord2 Lymph ABS# 1.74 K/ul 06/02/2015 Cbc With Differential Ord2 Mckinley ABS# 1.8 K/ul 06/02/2015 Cbc With Differential Ord2 Eos ABS# 0.1 K/ul 06/02/2015 Cbc With Differential Ord2 Baso ABS# 0.0 K/ul 06/02/2015 Cbc With Differential Ord2 New Analyzer Notice Please note new ref ranges starting 03-11-2015 due to implemntation of new five part differential hematolgy analyzer. 06/02/2015 Pt Adw1295 PT 21.8 seconds 06/02/2015 Pt Nhd4696 INR 2.0 06/02/2015 Pt Zpd5248 Low Intensity - 1.5-2.0 06/02/2015 Pt Fut7426 Mod intensity - 2.0-3.0 06/02/2015 Pt Nwi5471 Hi intensity - 3.0-4.0 06/02/2015 Comp Metabolic Jyw699 NA 132 mEq/L 06/02/2015 Comp Metabolic Ouk902 K 4.4 mEq/L 06/02/2015 Comp Metabolic Ola900 CL 94 mEq/L 06/02/2015 Comp Metabolic Crz231 CO2 26.0 mEq/L 06/02/2015 Comp Metabolic Vda894 ANION GAP 16 06/02/2015 Comp Metabolic Lkv908 GLUCOSE 97 mg/dL 06/02/2015 Comp Metabolic Asb315 Creat 1.2 mg/dL 06/02/2015 Comp Metabolic Osn226 eGFR 46 ml/min/1.73m2 06/02/2015 Comp Metabolic Cjf798 BUN 19 mg/dL 06/02/2015 Comp Metabolic Pup490 B/C Ratio 15.8 Ratio 06/02/2015 Comp Metabolic Ope474 CALCIUM 9.4 mg/dL 06/02/2015 Comp Metabolic Smi612 ALK PHOS 178 U/L 06/02/2015 Comp Metabolic Esx255 AST(SGOT) 32 U/L 06/02/2015 Comp Metabolic Amo806 ALT(SGPT) 31 U/L 06/02/2015 Comp Metabolic Pkl819 BILI T 0.6 mg/dL 06/02/2015 Comp Metabolic Tiv481 ALBUMIN 4.0 g/dL 06/02/2015 Comp Metabolic Oia142 TPRO 6.5 g/dL 06/02/2015 Comp Metabolic Bph425 GLOB 2.5 g/dL 06/02/2015 Comp Metabolic Uuu671 A/G Ratio 1.6 Ratio 06/02/2015 Comp Metabolic Dtt656 Osmo 267 mOsmo 06/02/2015 Iron Ord72 Iron 39 ug/dl 04/01/2015 B12 Cnt435 B12 160.00 pg/ml 04/01/2015 Vitamin D 25 Oh Oeb5031 VITAMIN D, 25 HYDROXY 61.20 ng/mL Cbc With Differential Ord2 WBC 11.58 K/ul 03/31/2015 Cbc With Differential Ord2 RBC 3.71 M/ul 03/31/2015 Cbc With Differential Ord2 HGB 10.5 g/dl 03/31/2015 Cbc With Differential Ord2 HCT 33.0 % 03/31/2015 Cbc With Differential Ord2 Neut% 71.2 % 03/31/2015 Cbc With Differential Ord2 Lymph% 14.0 % 03/31/2015 Cbc With Differential Ord2 MCV 88.9 fl 03/31/2015 Cbc With Differential Ord2 Mckinley% 14.0 % 03/31/2015 Cbc With Differential Ord2 [...] 1.62 K/ul 03/31/2015 Cbc With Differential Ord2 [place]ck[place] ABS# 1.6 K/ul 03/31/2015 Cbc With Differential Ord2 Eos ABS# 0.1 K/ul 03/31/2015 Cbc With Differential Ord2 Baso ABS# 0.0 K/ul 03/31/2015 Cbc With Differential Ord2 New Analyzer Notice Please note new ref ranges starting 03-11-2015 due to implemntation of new five part differential hematolgy analyzer. 03/31/2015 Comp Metabolic Nbr525 NA 131 mEq/L 03/31/2015 Comp Metabolic Wix524 K 5.3 mEq/L 03/31/2015 Comp Metabolic Auq977 CL 97 mEq/L 03/31/2015 Comp Metabolic Ggc215 CO2 24.0 mEq/L 03/31/2015 Comp Metabolic Aji631 ANION GAP 15 03/31/2015 Comp Metabolic Wix735 GLUCOSE 84 mg/dL 03/31/2015 Comp Metabolic Eir347 Creat 1.3 mg/dL 03/31/2015 Comp Metabolic Nig101 eGFR 42 ml/min/1.73m2 03/31/2015 Comp Metabolic Vop924 BUN 26 mg/dL 03/31/2015 Comp Metabolic Kta416 B/C Ratio 20.2 Ratio 03/31/2015 Comp Metabolic Ysn562 CALCIUM 9.4 mg/dL 03/31/2015 Comp Metabolic Obv169 ALK PHOS 172 U/L 03/31/2015 Comp Metabolic Ndt715 AST(SGOT) 21 U/L 03/31/2015 Comp Metabolic Crq363 ALT(SGPT) 27 U/L 03/31/2015 Comp Metabolic Qzt398 BILI T 0.5 mg/dL 03/31/2015 Comp Metabolic Zih327 ALBUMIN 4.0 g/dL 03/31/2015 Comp Metabolic Cdt422 TPRO 6.8 g/dL 03/31/2015 Comp Metabolic Cdc913 GLOB 2.8 g/dL 03/31/2015 Comp Metabolic Aip099 A/G Ratio 1.4 Ratio 03/31/2015 Comp Metabolic Psk602 Osmo 267 mOsmo 03/31/2015 Pt Mbj0549 PT 36.9 seconds 03/31/2015 Pt Ckw7453 INR 3.9 03/31/2015 Pt Lwe1559 Low Intensity - 1.5-2.0 03/31/2015 Pt Cbc8663 Mod intensity - 2.0-3.0 03/31/2015 Pt Lwi2368 Hi intensity - 3.0-4.0 03/31/2015 Tsh Ord6 hTSH II 1.87 uIU/mL 03/31/2015 Urine Culture Ucult Preliminary No Growth Day 1 11/10/2014 Urine Culture Ucult Complete No Growth Day 2 11/10/2014 Pt Chp1107 PT 29.1 seconds 09/19/2014 Pt Ojt5051 INR 2.9 09/19/2014 Pt Yxj6949 Low Intensity - 1.5-2.0 09/19/2014 Pt Yzn3530 Mod intensity - 2.0-3.0 09/19/2014 Pt Plp4957 Hi intensity - 3.0-4.0 09/19/2014 Lipid Ord30 CHOL 216 mg/dL 09/19/2014 Lipid Ord30 HDL 78.0 mg/dl 09/19/2014 Lipid Ord30 TRIG 85 mg/dL 09/19/2014 Lipid Ord30 LDL 121 mg/dL 09/19/2014 Lipid Ord30 C/HDL 2.8 Ratio 09/19/2014 Cbc With Differential Ord2 WBC 10.0 [...] With Differential Ord2 RDW 17.6 % 09/19/2014 Comp Metabolic Gdl737 NA 134 mEq/L 09/19/2014 Comp Metabolic Ffs399 K 4.7 mEq/L 09/19/2014 Comp Metabolic Cit113 CL 98 mEq/L 09/19/2014 Comp Metabolic Qjz165 CO2 27.0 mEq/L 09/19/2014 Comp Metabolic Uer046 ANION GAP 14 09/19/2014 Comp Metabolic Orf733 GLUCOSE 94 mg/dL 09/19/2014 Comp Metabolic Sym036 Creat 1.1 mg/dL 09/19/2014 Comp Metabolic Xoi259 eGFR 49 ml/min/1.73m2 09/19/2014 Comp Metabolic Dyn422 BUN 14 mg/dL 09/19/2014 Comp Metabolic Aav434 B/C Ratio 12.3 Ratio 09/19/2014 Comp Metabolic Xtm379 CALCIUM 9.7 mg/dL 09/19/2014 Comp Metabolic Kmv717 ALK PHOS 150 U/L 09/19/2014 Comp Metabolic Jkc728 AST(SGOT) 16 U/L 09/19/2014 Comp Metabolic Exp544 ALT(SGPT) 9 U/L 09/19/2014 Comp Metabolic Glw721 BILI T 0.8 mg/dL 09/19/2014 Comp Metabolic Ooz354 ALBUMIN 3.9 g/dL 09/19/2014 Comp Metabolic Jlv289 TPRO 6.8 g/dL 09/19/2014 Comp Metabolic Upd111 GLOB 2.9 g/dL 09/19/2014 Comp Metabolic Ffr899 A/G Ratio 1.3 Ratio 09/19/2014 Comp Metabolic Ccj270 Osmo 268 mOsmo 09/19/2014 Vitamin D 25 Oh Adn6434 VITAMIN D, 25 HYDROXY 14.13 ng/mL Tsh Ord6 hTSH II 1.40 uIU/mL 09/19/2014 Magnesium Ord90 Mag 2.0 mg/dL 09/19/2014 [...] Effective Dates Notes Full Exam - General 1995 Constitutional general appearance Overall: well developed 12/12/2017 [...] lips 04/25/2016 None Full Exam - General 1995 Ears/Nose/Throat lips/teeth/gingiva Overall: normal dentition 04/25/2016 None [...] Model/CDA Sections, Assigned to/Indira Ibanez SNOMED CT: 85069167 CPT-4: 01761Sgqrkvb 12/10/2015 TRIAMCINOLONE ACET INJ NOS CPT-4: J3301 01/30/2015 URINALYSIS NONAUTO W/O SCOPE CPT-4: 55797 11/07/2014 ROCEPHIN, PER 250 MG CPT-4: J0696 10/14/2014 TRIAMCINOLONE ACET INJ NOS CPT-4: J3301 10/14/2014 Vital Signs Date Vital 12/12/2017 Blood Pressure 1: 130/60 Code : 8480-6 BMI: 25.2 Code : 95143-0 Heart Rate 1 : 60 bpm Height: 5'2" SpO2: 98% Weight: 138 lbs 09/05/2017 Blood Pressure 1: 108/46 Code : 8480-6 BMI: 24.0 Code : 93948-4 Heart Rate 1 : 70 bpm Height: 5'2" SpO2: 96% Weight: 131 lbs 05/09/2017 Blood Pressure 1: 122/82 Code : 8480-6 BMI: 25.2 Code : 30488-4 Heart Rate 1 : 72 bpm Height: 5'2" SpO2: 95% Weight: 138 lbs 03/07/2017 Blood Pressure 1: 108/52 Code : 8480-6 BMI: 27.6 Code : 73477-9 Heart Rate 1 : 72 bpm Height: 5'2" SpO2: 96% Weight: 151 lbs 01/24/2017 Blood Pressure 1: 126/60 Code : 8480-6 BMI: 27.1 Code : 40737-9 Heart Rate 1 : 60 bpm Height: [...] Code : 8480-6 BMI: 26.8 Code : 32489-6 Heart Rate 1 : 59 bpm Height: 5'2" SpO2: 97% Weight: 146 lbs 8 oz 05/10/2016 Blood Pressure 1: 120/56 Code : 8480-6 BMI: 27.1 Code : 97200-1 Heart Rate 1 : 63 bpm Height: 5'2" SpO2: 97% Weight: 148 lbs 04/25/2016 Blood Pressure 1: 134/66 Code : 8480-6 BMI: 24.9 Code : 95497-2 Heart Rate 1 : 118 bpm Height: 5'2" SpO2: 93% Temperature: 36.8 (C) / 98.3 (F) Weight: 136 lbs 01/14/2016 Blood Pressure 1: 132/78 Code : 8480-6 BMI: 25.6 Code : 46027-0 Heart Rate 1 : 97 bpm Height: 5'2" SpO2: 95% Weight: 140 lbs 12/10/2015 Blood Pressure 1: 118/72 Code : 8480-6 BMI: 26.2 Code : 69472-5 Heart Rate 1 : 68 bpm Height: 5'2" SpO2: 95% Weight: 143 lbs 11/12/2015 Blood Pressure 1: 140/80 Code : 8480-6 BMI: 25.6 Code : 50987-3 Heart Rate 1 : 77 bpm Height: 5'2" SpO2: 93% Weight: 140 lbs 10/08/2015 Blood Pressure 1: 132/60 Code : 8480-6 BMI: 26.2 Code : 10431-2 Heart Rate 1 : 77 bpm Height: 5'2" SpO2: 96% Weight: 143 lbs 09/29/2015 Blood Pressure 1: 130/62 Code : 8480-6 BMI: 27.1 Code : 97136-7 Heart Rate 1 : 86 bpm Height: 5'2" SpO2: 93% Weight: 148 lbs 09/22/2015 Blood Pressure 1: 164/72 Code : 8480-6 BMI: 28.2 Code : 35066-8 Heart Rate 1 : 79 bpm Height: 5'2" SpO2: 92% Weight: 154 lbs 07/21/2015 Blood Pressure 1: 124/70 Code : 8480-6 BMI: 24.5 Code : 50180-4 Heart Rate 1 : 71 bpm Height: 5'2" SpO2: 98% Weight: 134 lbs 06/23/2015 Blood Pressure 1: 122/68 Code : 8480-6 BMI: 25.4 Code : 03922-5 Heart Rate 1 : 78 bpm Height: 5'2" SpO2: 92% Weight: 139 lbs 06/12/2015 Blood Pressure 1: 154/62 Code : 8480-6 BMI: 27.4 Code : 80090-5 Heart Rate 1 : 87 bpm Height: 5'2" SpO2: 94% Weight: 150 lbs 06/02/2015 Blood Pressure 1: 140/68 Code : 8480-6 Heart Rate 1: 90 bpm SpO2: 91% Weight: 142 lbs 03/31/2015 Blood Pressure 1: 120/56 Code : 8480-6 BMI: 23.6 Code : 82066-0 Heart Rate 1 : 82 bpm Height: 5'2" SpO2: 98% Weight: 129 lbs 01/30/2015 Blood Pressure 1: 108/62 Code : 8480-6 BMI: 22.1 Code : 51873-5 Heart Rate 1 : 8299 bpm Height: 5'2 " SpO2: 99% Weight: 121 lbs 12/22/2014 Blood Pressure 1: 130/70 Code : 8480-6 BMI: 21.8 Code : 47408-3 Heart Rate 1 : 106 bpm Height: 5'2" SpO2: 98% Weight: 119 lbs 10/29/2014 Blood Pressure 1: 118/58 Code : 8480-6 BMI: 23.2 Code : 40198-7 Heart Rate 1 : 74 bpm Height: 5'2" SpO2: 93% Weight: 127 lbs 10/14/2014 Blood Pressure 1: 128/64 Code : 8480-6 BMI: 22.9 Code : 29368-2 Heart Rate 1 : 79 bpm Height: 5'2" SpO2: 93% Temperature: 35.9 (C) / 96.6 (F) Weight: 125 lbs 09/19/2014 Blood Pressure 1: 132/72 Code : 8480-6 BMI: 22.9 Code : 05588-6 Heart Rate 1 : 84 bpm Height: 5'2" SpO2: 96% Weight: 125 lbs 08/22/2014 Blood Pressure 1: 124/72 Code : 8480-6 BMI: 23.0 Code : 25791-9 Heart Rate 1 : 64 bpm Height: 5'2" Weight: 126 lbs 08/04/2014 Blood Pressure 1: 126/86 Code : 8480-6 BMI: 23.6 Code : 94473-6 Height: 5'2" Respiratory Rate: 20 bpm Weight: 129 lbs 07/24/2014 Blood Pressure 1: 116/72 Code : 8480-6 BMI: 23.6 Code : 13681-6 Heart Rate 1 : 74 bpm Height: 5'2" Weight: 129 lbs 07/15/2014 Blood Pressure 1: 132/78 Code : 8480-6 BMI: 24.1 Code : 93316-1 Heart Rate 1 : 74 bpm Height: [...] data Encounters Encounter Performer Location Codes Date ([id number]) 40815 EST. PATIENT, LEVEL IV Diagnosis: Essential (primary) hypertension[ICD10: I10] Diagnosis: senior living (current) use of anticoagulants[ICD10: Z79.01] Diagnosis: Other malaise[ICD10: R53.81] Diagnosis: Vascular dementia without behavioral disturbance[ICD10: F01.50] Veronica Daigle MD, [facility] CPT-4: 04039 12/12/2017 ([id number]) 90920 EST. PATIENT, LEVEL IV Diagnosis: Paroxysmal atrial fibrillation[ICD10: I48.0] Diagnosis: Essential (primary) hypertension[ICD10: I10] Diagnosis: senior living (current) use of anticoagulants[ICD10: Z79.01] Diagnosis: Low back pain[ICD10: M54.5] Veronica Daigle MD, [facility] CPT- 4: 31363 09/05/2017 ([id number]) 75909 EST. PATIENT, LEVEL IV Diagnosis: Essential (primary) hypertension[ICD10: I10] Diagnosis: Generalized anxiety disorder[ICD10: F41.1] Diagnosis: Major depressive disorder, single episode, unspecified[ICD10: F32.9] Diagnosis: Localized edema[ICD10: R60.0] Veronica Daigle MD, [facility] CPT- 4: 00093 05/09/2017 ([id number]) 68317 EST. PATIENT, LEVEL IV Diagnosis: Essential (primary) hypertension[ICD10: I10] Diagnosis: Paroxysmal atrial fibrillation[ICD10: I48.0] Diagnosis: Generalized anxiety disorder[ICD10: F41.1] Diagnosis: Localized edema[ICD10: R60.0] Veronica Daigle MD, [facility] CPT- 4: 12665 03/07/2017 ([id number]) 05405 EST. PATIENT, LEVEL IV Diagnosis: Generalized anxiety disorder[ICD10: F41.1] Diagnosis: Major depressive disorder, single episode, unspecified[ICD10: F32.9] Diagnosis: Essential (primary) hypertension[ICD10: I10] Diagnosis: Paroxysmal atrial fibrillation[ICD10: I48.0] Merle Daigle MD, [facility] CPT-4: 99288 01/24/2017 [id number] EST. PATIENT, LEVEL IV Diagnosis: Other chest pain[ICD10: R07.89] Diagnosis: Other malaise[ICD10: R53.81] Opal Daigle MD, [facility] CPT-4 : 27661 09/29/2016 ([id number]) 13483 EST. PATIENT, LEVEL IV Diagnosis: Essential (primary) hypertension[ICD10: I10] Diagnosis: Paroxysmal atrial fibrillation[ICD10: I48.0] Diagnosis: Localized edema[ICD10: R60.0] Diagnosis: Generalized anxiety disorder[ICD10: F41.1] Diagnosis: Low back pain[ICD10: M54.5] Merle Daigle MD, [facility] CPT-4: 41976 09/13/2016 ([id number]) 77784 EST. PATIENT, LEVEL III Diagnosis: Essential (primary) hypertension[ICD10: I10] Diagnosis: Paroxysmal atrial fibrillation[ICD10: I48.0] Merle Daigle MD, [facility] CPT-4: 35630 05/31/2016 ([id number]) 99765 EST. PATIENT, LEVEL III Diagnosis: Essential (primary) hypertension[ICD10: I10] Diagnosis: Localized edema[ICD10: R60.0] Merle Daigle MD, [facility] CPT-4: 04360 05/10/2016 ([id number]) 00942 EST. PATIENT, LEVEL IV Diagnosis: Paroxysmal atrial fibrillation[ICD10: I48.0] Diagnosis: Essential (primary) hypertension[ICD10: I10] Diagnosis: Generalized anxiety disorder[ICD10: F41.1] Merle Daigle MD, [facility] CPT-4: 69519 04/25/2016 ([id number]) 00723 EST. PATIENT, LEVEL IV Diagnosis: Generalized anxiety disorder[ICD10: F41.1] Diagnosis: Essential (primary) hypertension[ICD10: I10] Diagnosis: Paroxysmal atrial fibrillation[ICD10: I48.0] Diagnosis: Localized edema[ICD10: R60.0] Diagnosis: Acute recurrent maxillary sinusitis[ICD10: J01.01] Merle Daigle MD, [facility] CPT-4: 58710 01/14/2016 ([id number]) 71037 EST. PATIENT, LEVEL IV Diagnosis: Essential (primary) hypertension[ICD10: I10] Diagnosis: Generalized anxiety disorder[ICD10: F41.1] Diagnosis: Localized edema[ICD10: R60.0] Diagnosis: Encounter for immunization[ICD10: Z23] Merle Daigle MD, [facility] CPT-4: 18334 12/10/2015 ([id number]) 62574 EST. PATIENT, LEVEL III Diagnosis: Essential (primary) hypertension[ICD10: I10] Diagnosis: Localized edema[ICD10: R60.0] Merle Daigle MD, [facility] CPT-4: 17008 11/12/2015 ([id number]) 42632 EST. PATIENT, LEVEL III Diagnosis: Essential (primary) hypertension[ICD10: I10] Diagnosis: Localized edema[ICD10: R60.0] Merle Daigle MD, [facility] CPT-4: 20726 10/08/2015 ([id number]) 31516 EST. PATIENT, LEVEL III Diagnosis: Localized edema[ICD10: R60.0] Diagnosis: Essential (primary) hypertension[ICD10: I10] Merle Daigle MD, [facility] CPT-4: 12652 09/29/2015 ([id number]) 24089 EST. PATIENT, LEVEL IV Diagnosis: Localized edema[ICD10: R60.0] Diagnosis: Essential (primary) hypertension[ICD10: I10] Diagnosis: Paroxysmal atrial fibrillation[ICD10: I48.0] Merle Daigle MD, [facility] CPT-4: 46774 09/22/2015 ([id number]) 18674 EST. PATIENT, LEVEL III Diagnosis: Essential (primary) hypertension[ICD10: I10] Diagnosis: Paroxysmal atrial fibrillation[ICD10: I48.0] Merle Daigle MD, [facility] CPT-4: 26954 07/21/2015 ([id number]) 48788 EST. 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 PATIENT, LEVEL IV Diagnosis: Essential (primary) hypertension[ICD10: I10] Diagnosis: Paroxysmal atrial fibrillation[ICD10: I48.0] Diagnosis: Localized edema[ICD10: R60.0] Diagnosis: Encounter for therapeutic drug level monitoring[ICD10: Z51.81] Merle Daigle MD, [facility] CPT-4: 09311 06/02/2015 ([id number]) 59841 EST. PATIENT, LEVEL IV Diagnosis: Essential (primary) hypertension[ICD10: I10] Diagnosis: Vitamin D deficiency, unspecified[ICD10: E55.9] Diagnosis: Major depressive disorder, single episode, unspecified[ICD10: F32.9] Diagnosis: Paroxysmal atrial fibrillation[ICD10: I48.0] Diagnosis: senior living (current) use of anticoagulants[ICD10: Z79.01] Merle Daigle MD , [facility] CPT-4: 36852 03/31/2015 ([id number]) 07636 EST. PATIENT, LEVEL III Diagnosis: Essential (primary) hypertension[ICD10: I10] Diagnosis: Allergic rhinitis due to pollen[ICD10: J30.1] Merle Daigle MD, [facility] CPT-4: 90758 01/30/2015 03931 EST. PATIENT, LEVEL III Diagnosis: Localized edema[ICD10: R60.0] Diagnosis: Diarrhea, unspecified[ICD10: R19.7] Veronica Daigle MD, [facility] CPT-4: 50801 12/22/[id number]) 69332 EST. PATIENT, LEVEL IV Diagnosis: DYSPHAGIA, PHARYNGEAL[ICD9: 787.23] Diagnosis: Low back pain[ICD9: 724.2] Diagnosis: Cough[ICD9: 786.2] Diagnosis: Anticoagulated on Coumadin[ICD9: V58.83] Diagnosis: MUSCLE WEAKNESS-GENERAL[ICD9: 728.87] Diagnosis: EDEMA[ICD9: 782.3] Veronica Daigle MD, [facility] CPT-4: 55919 10/29/[id number]) 67235 EST. PATIENT, LEVEL IV Diagnosis: Low back pain[ICD9: 724.2] Diagnosis: Pneumonia[ICD9: 486] Diagnosis: Cough[ICD9: 786.2] Diagnosis: Anticoagulated on Coumadin[ICD9: V58.83] Diagnosis: DYSPHAGIA, NOS[ICD9: 787.20] Diagnosis: MUSCLE WEAKNESS-GENERAL[ICD9: 728.87] Merle Daigle MD, [facility] CPT-4: 72315 10/14/2014 ([id number]) 79779 EST. PATIENT, LEVEL IV Diagnosis: ESSENTIAL HYPERTENSION[ICD9: 401.9] Diagnosis: ESOPHAGEAL REFLUX[ICD9: 530.81] Diagnosis: SLEEP RELATED LEG CRAMPS[ICD9: 327.52] Diagnosis: Atrial fibrillation[ICD9: 427.31] Diagnosis: Anticoagulated on Coumadin[ICD9: V58.83] Diagnosis: VITAMIN D DEFICIENCY[ICD9: 268.9] Merle Daigle MD, [facility] CPT-4: 98913 09/19/2014 ([id number]) 54205 EST. PATIENT, LEVEL III Diagnosis: EDEMA[ICD9: 782.3] Diagnosis: LONG-TERM USE ANTICOAGUL[ICD9: V58.61] Merle Daigle MD, [facility] CPT-4: 70646 08/22/2014 ([id number]) 66189 EST. PATIENT, LEVEL IV Diagnosis: Skin irritation[ICD9: 709.9] Diagnosis: ESSENTIAL HYPERTENSION[ICD9: 401.9] Diagnosis: Anticoagulated on Coumadin[ICD9: V58.83] Diagnosis: DEPRESSIVE DISORDER NEC[ICD9: 311] Yumiko Daigle MD, [facility] CPT-4: 48264 08/04/2014 ([id number]) 39039 EST. PATIENT, LEVEL III Diagnosis: Skin irritation[ICD9: 709.9] Veronica Daigle MD, [facility] CPT- 4: 16456 07/24/2014 ([id number]) OFFICE/OUTPATIENT VISIT NEW Diagnosis: ESSENTIAL HYPERTENSION[ICD9: 401.9] Diagnosis: COUGH[ICD9: 786.2] Diagnosis: Atrial fibrillation[ICD9: 427.31] Diagnosis: LONG-TERM USE ANTICOAGUL[ICD9: V58.61] Diagnosis: DEPRESSIVE DISORDER NEC[ICD9: 311] Veronica Daigle MD, [facility] CPT-4: 49624 07/15/2014 Plan of Care Planned Activity Notes [...] this time. 12/12/2017 Appointment: Veronica Daigle WPtel: [phone] [id number] (15 min) Moderate 12/12/2017 Patient [...] pain medication stolen by a health care administrator through home health - i have given pt a script for 50 pills to get her through for when she can get her next RX for her pain medication. 09/05/2017 Appointment: Veronica Daigle WPtel: [phone] [phone] (15 min) Moderate 09/05/2017 Patient [...] Appointment: Veronica Daigle WPtel: [facility] (15 min) Moderate 05/09/2017 Patient Education: Patient [...] Appointment: Veronica Daigle WPtel: [phone] (15 min) Moderate 03/07/2017 Patient Education: Patient [...] Esparza WPtel: [phone] [phone] [place] (30 min) Complex 01/24/2017 Patient Education: [...] or concerns. 09/29/2016 Appointment: Opal Boyle WPtel: [phone] [facility] [place] (15 min) Moderate 09/29/2016 Appointment: Opal Boyle WPtel: [phone] [facility] [place] (15 min) Moderate 09/29/2016 Patient Education: [...] 09/13/2016 Appointment: Merle Esparza WPtel: [phone] (30 min) Complex 09/13/2016 Patient Education: Patient [...] Appointment: Merle Esparza WPtel: [facility] [place] [address] (30 min) Complex 05/31/2016 Patient Education: Patient [...] LABS TODAY 05/10/2016 Appointment: Merle Esparza WPtel: [phone] (30 min) Complex 05/10/2016 Patient Education: Patient Medication Summary Completed 05/10/2016 Patient Education: Hypertension Completed 05/10/2016 Appointment: Merle Esparza WPtel: [address] [place], [place] [id number] (15 min) Moderate 05/09/2016 Visit Plan: Afib-not [...] Appointment: Merle Esparza WPtel: [facility] [place] [address] (30 min) Complex 04/25/2016 Patient Education: Patient Medication Summary Completed 04/25/2016 Patient Education: Hypertension Completed 04/25/2016 Appointment: Merle Esparza WPtel: [facility] [place] [address] (15 min) Moderate 02/12/2016 Visit Plan: Hypertension [...] becoming uncontrolled. 01/14/2016 Appointment: Merle Esparza WPtel: [address] [place], [place] [id number] [place] [address] (30 min) Complex 01/14/2016 Patient Education: Patient [...] edema. 12/10/2015 Appointment: Merle Esparza WPtel: [phone] [facility] [place] [address] (30 min) Complex 12/10/2015 Patient Education: Patient [...] peripheral edema. 11/12/2015 Appointment: Merle Esparza WPtel: [facility] [place] [address] (15 min) Moderate 11/12/2015 Patient Education: Patient Medication Summary Completed 11/12/2015 Appointment: Merle Esparza WPtel: [facility]9 [id number] (15 min) Moderate 10/22/2015 Visit Plan: Hypertension [...] edema. 10/08/2015 Appointment: Merle Esparza WPtel: [phone] [facility] [place] [address] (15 min) Moderate 10/08/2015 Patient Education: Patient [...] home. 09/29/2015 Appointment: Merle Esparza WPtel: [phone] [facility] [place] [address] (15 min) Moderate 09/29/2015 Patient Education: Patient [...] 09/22/2015 Appointment: Merle Esparza WPtel: [id number] [place] [address] (30 min) Complex 09/22/2015 Patient Education: Patient [...] week- will restart anti coagulant if able Kgbhq-sdatlyfv-ec change in medications Anemia-received 1 unit blood last week-hgb repeated yesterday and has increased from 9.5 to 9.8-continue to monitor 06/23/2015 Appointment: [facility]el[phone] (30 min) Complex 06/23/2015 Patient Education: [...] Completed 03/31/2015 Patient Education: Hypertension Completed 03/31/2015 Patient Education: Patient Medication Summary Completed 03/31/2015 Visit Plan: Hypertension - well [...] Hypertension Completed 01/30/2015 Appointment: [facility] Daig[facility]el[id number] ([facility] min) Complex 01/28/2015 Appointment: [...] at home. 12/22/2014 Appointment: [phone] (30 min) Complex 12/22/2014 Patient Education: [...] Care Plan: COMPLETE CBC AUTOMATED LOINC : 90923-1 Ordered 08/22/2014 Visit Plan: Itching/Skin irritation- Resolved. [...] if needed. 07/24/2014 Appointment: Yumiko Dickinson WPtel: [address] [place], [place] [id number] (10 min) Simple 07/24/2014 Patient Education: Patient [...] - she has refused to see a groundskeeper supervisor and reports to me that she will not go to the hospital and will not have the recommended testing. She states that she does not have any family left, and is not willing to have any further testing/treatment. Labs to be checked today for coumadin levels to be further adjusted. 07/15/2014 Appointment: Veronica Daigle WPtel: [facility] [place] [facility] New Patient 07/15/2014 [...] next week-will restart anti coagulant if able Wnfqu-sxikoizu-ja change in medications Anemia-received 1 unit blood [...] - she has refused to see a groundskeeper supervisor and reports to me that she will [...] to further attempt to reduce peripheral edema. Vtgzxkwmk-dsxwhboal-bftmjk all of abx Atrial Fibrillation - pt [...] pain medication stolen by a health care administrator through home health - i have given [...] while on the antibiotics REFER TO HOME QHBFBO-Bkaulub-fexav PT/INR on , PT SWALLOW STUDY DX dysphagia Shun (santosh) [phone] . Pneumonia - Pt has been diagnosed [...] while on the antibiotics REFER TO HOME UUENED-Qtfaiih-qoalv PT/INR on , PT SWALLOW STUDY DX dysphagia Shun (neighbor) [phone] . Pneumonia - Pt has been diagnosed [...] a study on a Monday if possible. KENALOG INJECTION TODAY IN THE OFFICE CALL [...]
--- OUTSIDE RECORDS SUMMARY | 2018-04-19 00:27 | XMS REPORT | CCD ---
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 Name Role Phone PP Unavailable CCM Unavailable Summary Purpose Interface Exchange Insurance Providers Payer name Policy type / Coverage type Covered alliance party ID Effective Begin Date Effective End Date WPS Medicare Part B Medicare Part B [id number] Unknown Family history Mother Diagnosis Age At Onset Hypertension Unknown Heart Attack Unknown Social History Social History Element Codes Description Effective Dates Marital status Unknown 07/15/2014 Marital status Unknown 07/15/2014 Number of children Unknown 0 07/15/2014 Number of children Unknown 0 07/15/2014 Employment Unknown Retired 07/15/2014 Employment Unknown Retired 07/15/[address]: 065321565 Has never smoked or chewed tobacco 07/15/[address]: 784728193 Has never smoked or chewed tobacco 07/15/[address]: 383243835 Never drinks alcohol 07/15/[address]: 162722276 Never drinks alcohol 07/15/2014 Allergies, Adverse Reactions, Alerts Substance Reaction Codes Entered Date Inactivated Date Status * NO KNOWN FOOD ALLERGIES Unknown 07/15/2014 No Inactive Date Active SULFA(SULFONAMIDE ANTIBIOTICS) Unknown 07/15/2014 No Inactive Date Active Past Medical History Illness Codes Condition Status Onset Date Resolved Date Essential (primary) hypertension ICD-9: 401.9 ICD-10: I10 Active 01/13/2016 Unknown jail (current) use of anticoagulants ICD-9: V58.61 [...] hypertension ICD-9: 401.9 ICD-10: I10 01/13/2016 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 ICD-10: [...] Fill Instructions Xanax 0.25 mg tablet RxNorm: 222238 1 Tablet(s) PO TID as needed anxiety 01/01/2018 01/20/2018 Active hydrocodone 7.5 mg-acetaminophen 325 mg tablet RxNorm: 041606 1 Tablet(s) PO daily as needed pain 12/12/20172017 Active cyanocobalamin (vit B-12) 1,000 mcg/mL injection solution RxNorm: 745246 INJECT 1 ML INTRAMUSCULARLY 2 TIMES A MONTH FOR 2 MONTHS, THEN ONCE A MONTH THEREAFTER 11/28/2017 01/22/2018 Active hydrocodone 7.5 mg-acetaminophen 325 mg tablet RxNorm: 456870 1-2 Tablet(s) PO Q4- 6H as needed pain 11/21/2017 12/11/2017 Inactive Lasix 40 mg tablet RxNorm: 559707 TAKE ONE TABLET BY MOUTH DAILY 10/23/2017 04/20/2018 Active Lexapro 5 mg tablet RxNorm: 815993 TAKE ONE TABLET BY MOUTH EVERY EVENING 10/23/2017 12/21/2017 Inactive buspirone 10 mg tablet RxNorm: 085540 TAKE ONE TABLET BY MOUTH THREE TIMES A DAY 10/02/2017 02/28/2018 Active omeprazole 20 mg capsule,delayed release RxNorm: 498420 TAKE ONE CAPSULE BY MOUTH TWICE A DAY 09/13/2017 03/11/2018 Active Levaquin 750 mg tablet RxNorm: 794733 1 tab every other day for 5 doses 1 Tablet(s ) PO 08/29/2017 08/28/2017 Inactive Levaquin 750 mg tablet RxNorm: 752969 1 tab every other day for 5 doses 1 Tablet(s ) PO 08/29/2017 09/02/2017 Inactive potassium chloride ER 10 mEq tablet,extended release RxNorm: 546961 TAKE TWO TABLETS BY MOUTH THREE TIMES A DAY 08/28/2017 12/25/2017 Inactive hydrocodone 7.5 mg-acetaminophen 325 mg tablet RxNorm: 852457 1-2 Tablet(s) PO Q4- 6H as needed pain 08/28/2017 09/26/2017 Inactive metoprolol tartrate 25 mg tablet RxNorm: 536845 TAKE 1/2 TABLET BY MOUTH TWO TIMES A DAY 07/25/2017 07/19/2018 Active Lexapro 5 mg tablet RxNorm: 448645 TAKE ONE TABLET BY MOUTH EVERY EVENING 07/21/2017 10/18/2017 Inactive hydrocodone 7.5 mg-acetaminophen 325 mg tablet RxNorm: 977864 1-2 Tablet(s) PO Q4- 6H as needed pain 07/19/2017 08/17/2017 Inactive hydrocodone 7.5 mg-acetaminophen 325 mg tablet RxNorm: 661044 1-2 Tablet(s) PO Q4- 6H as needed pain 07/03/2017 07/18/2017 Inactive hydrocodone 7.5 mg-acetaminophen 325 mg tablet RxNorm: 962651 1-2 Tablet(s) PO Q4- 6H as needed pain 05/25/2017 06/23/2017 Inactive cyanocobalamin (vit B-12) 1,000 mcg/mL injection solution RxNorm: 317508 INJECT 1 ML INTRAMUSCULARLY 2 TIMES A MONTH FOR 2 MONTHS, THEN ONCE A MONTH THEREAFTER 05/19/2017 08/10/2017 Inactive warfarin 5 mg tablet RxNorm: 712788 TAKE ONE TABLET BY MOUTH DAILY 04/26/2017 04/20/2018 Active buspirone 10 mg tablet RxNorm: 065640 TAKE ONE TABLET BY MOUTH THREE TIMES A DAY 04/26/2017 09/22/2017 Inactive Xanax 0.25 mg tablet RxNorm: 036066 1 Tablet(s) PO TID as needed anxiety 04/17/2017 05/14/2017 Inactive Levaquin 500 mg tablet RxNorm: 683085 1 Tablet(s) PO Q72H x3 doses 04/11/2017 04/10/2017 Inactive Levaquin 500 mg tablet RxNorm: 490454 1 Tablet(s) PO Q72H x3 doses 04/11/2017 07/03/2017 Inactive potassium chloride ER 10 mEq tablet,extended release RxNorm: 686960 TAKE TWO TABLETS BY MOUTH THREE TIMES A DAY 03/27/2017 08/23/2017 Inactive Tamiflu 75 mg capsule RxNorm: 101362 1 Capsule(s) PO BID 201707/03/2017 Inactive Zofran 4 mg tablet RxNorm: 487422 1 Tablet(s) PO QID as needed nausea 03/23/2017 06/20/2017 Inactive Zofran 4 mg tablet RxNorm: 915137 1 Tablet(s) PO QID as needed nausea 03/23/2017 03/22/2017 Inactive Tamiflu 75 mg capsule RxNorm: 687813 1 Capsule(s) PO BID 201703/22/2017 Inactive lisinopril 10 mg tablet RxNorm: 583956 TAKE ONE-HALF TABLET BY MOUTH DAILY 03/10/2017 06/02/2018 Active metolazone 5 mg tablet RxNorm: 257431 1 Tablet(s) PO TIW 201703/01/2018 Active hydrocodone 7.5 mg-acetaminophen 325 mg tablet RxNorm: 021659 1-2 Tablet(s) PO Q4- 6H as needed pain 02/23/2017 05/24/2017 Inactive omeprazole 20 mg capsule,delayed release RxNorm: 637546 Capsule(s) TAKE ONE CAPSULE BY MOUTH TWICE A DAY 02/08/2017 Inactive metolazone 5 mg tablet RxNorm: 892141 TAKE 1 TABLET BY MOUTH TWICE WEEKLY 02/08/2017 03/06/2017 Inactive Lexapro 5 mg tablet RxNorm: 082415 1 Tablet(s) PO QPM 201603/06/2017 Inactive hydrocodone 7.5 mg-acetaminophen 325 mg tablet RxNorm: 655772 1-2 Tablet(s) PO Q4- 6H as needed pain 01/16/2017 02/22/2017 Inactive Lasix 40 mg tablet RxNorm: 000395 TAKE ONE TABLET BY MOUTH DAILY 01/11/2017 10/07/2017 Inactive metoprolol tartrate 25 mg tablet RxNorm: 336448 TAKE 1/2 TABLET BY MOUTH TWO TIMES A DAY 01/11/2017 07/09/2017 Inactive allopurinol 300 mg tablet RxNorm: 477294 TAKE ONE TABLET BY MOUTH DAILY 01/09/2017 06/07/2017 Inactive hydrocodone 7.5 mg-acetaminophen 325 mg tablet RxNorm: 526182 1-2 Tablet(s) PO Q4- 6H as needed pain 12/06/2016 01/15/2017 Inactive lisinopril 10 mg tablet RxNorm: 605799 TAKE ONE-HALF TABLET BY MOUTH DAILY 12/02/2016 03/09/2017 Inactive buspirone 10 mg tablet RxNorm: 414216 TAKE ONE TABLET BY MOUTH THREE TIMES A DAY 10/25/2016 01/22/2017 Inactive buspirone 10 mg tablet RxNorm: 616436 TAKE ONE TABLET BY MOUTH THREE TIMES A DAY 10/25/2016 10/24/2016 Inactive hydrocodone 7.5 mg-acetaminophen 325 mg tablet RxNorm: 176451 1-2 or 2 Tablet(s) PO Q4-6H as needed pain 10/25/20162016 Inactive cyanocobalamin (vit B-12) 1,000 mcg/mL injection solution RxNorm: 505972 INJECT 1 ML INTRAMUSCULARLY 2 TIMES A MONTH FOR 2 MONTHS, THEN ONCE A MONTH THEREAFTER 10/24/2016 02/12/2017 Inactive metolazone 5 mg tablet RxNorm: 172413 TAKE 1 TABLET BY MOUTH TWICE WEEKLY 09/23/2016 01/12/2017 Inactive hydrocodone 7.5 mg-acetaminophen 325 mg tablet RxNorm: 723236 1-2 or 2 Tablet(s) PO Q4-6H as needed pain 09/13/20162016 Inactive Keflex 500 mg capsule RxNorm: 709182 1 Capsule(s) PO TID 201609/15/2016 Inactive Take with a probiotic BID Keflex 500 mg capsule RxNorm: 341916 1 Capsule(s) PO TID 201609/08/2016 Inactive Take with a probiotic BID metoprolol tartrate 25 mg tablet RxNorm: 224519 TAKE 1/2 TABLET BY MOUTH TWO TIMES A DAY 09/07/2016 01/04/2017 Inactive potassium chloride ER 10 mEq tablet,extended release RxNorm: 175551 TAKE TWO TABLETS BY MOUTH THREE TIMES A DAY 09/01/2016 02/27/2017 Inactive hydrocodone 7.5 mg-acetaminophen 325 mg tablet RxNorm: 887573 1 or 2 Tablet(s) PO Q4-6H as needed pain 08/31/20162016 Inactive omeprazole 20 mg capsule,delayed release RxNorm: 421792 TAKE ONE CAPSULE BY MOUTH TWICE A DAY 08/24/2016 02/07/2017 Inactive hydrocodone 7.5 mg-acetaminophen 325 mg tablet RxNorm: 469794 1 or 2 Tablet(s) PO Q4-6H as needed pain 08/05/20162016 Inactive lisinopril 10 mg tablet RxNorm: 430742 TAKE ONE-HALF TABLET BY MOUTH DAILY 07/28/2016 12/01/2016 Inactive hydrocodone 7.5 mg-acetaminophen 325 mg tablet RxNorm: 804583 1 or 2 Tablet(s) PO Q4-6H as needed pain 07/05/20162016 Inactive allopurinol 300 mg tablet RxNorm: 248662 TAKE ONE TABLET BY MOUTH DAILY 06/16/2016 12/12/2016 Inactive metoprolol tartrate 25 mg tablet RxNorm: 554939 TAKE 1/2 TABLET BY MOUTH TWO TIMES A DAY 06/16/2016 08/14/2016 Inactive buspirone 10 mg tablet RxNorm: 840135 TAKE ONE TABLET BY MOUTH THREE TIMES A DAY 06/15/2016 10/12/2016 Inactive hydrocodone 7.5 mg-acetaminophen 325 mg tablet RxNorm: 705677 1 or 2 Tablet(s) PO Q4-6H as needed pain 06/07/20162016 Inactive metoprolol tartrate 25 mg tablet RxNorm: 786101 1/2 Tablet(s) PO QPM 05/10/2016 06/08/2016 Inactive lisinopril 10 mg tablet RxNorm: 484396 1/2 Tablet(s) PO daily 04/26/2016 07/27/2016 Inactive hydrocodone 7.5 mg-acetaminophen 325 mg tablet RxNorm: 360269 1 or 2 Tablet(s) PO Q4-6H as needed pain 04/25/20162016 Inactive lisinopril 10 mg tablet RxNorm: 970767 1/2 Tablet(s) PO daily 04/25/2016 04/25/2016 Inactive metoprolol tartrate 25 mg tablet RxNorm: 294148 1/2 Tablet(s) PO BID 04/25/2016 05/09/2016 Inactive allopurinol 300 mg tablet RxNorm: 500895 TAKE ONE TABLET BY MOUTH DAILY 04/19/2016 06/15/2016 Inactive metolazone 5 mg tablet RxNorm: 208585 TAKE 1 TABLET BY MOUTH TWICE WEEKLY 04/19/2016 09/05/2016 Inactive potassium chloride ER 10 mEq tablet,extended release RxNorm: 861699 2 Tablet(s) PO TID 03/21/2016 08/17/2016 Inactive warfarin 5 mg tablet RxNorm: 341319 1 Tablet(s) PO daily TAKE ONE TABLET BY MOUTH DAILY 03/21/2016 03/15/[address] Echevarria manages potassium chloride ER 10 mEq tablet,extended release(part/ cryst) RxNorm: 7386323 2 Tablet(s) PO TID 03/11/2016 03/20/2016 Inactive Xanax 0.25 mg tablet RxNorm: 062856 1 Tablet(s) PO TID as needed anxiety 03/10/2016 04/06/2016 Inactive Xanax 0.25 mg tablet RxNorm: 596306 1 Tablet(s) PO TID as needed anxiety 03/10/2016 12/31/2017 Inactive hydrocodone 7.5 mg-acetaminophen 325 mg tablet RxNorm: 864434 1 or 2 Tablet(s) PO Q4-6H as needed pain 02/26/20162016 Inactive Flonase Allergy Relief 50 mcg/actuation nasal spray, suspension RxNorm: 3457660 1 [place] NASAL each nare daily 01/19/2016 03/18/2016 Inactive cefdinir 300 mg capsule RxNorm: 753943 1 Capsule(s) PO BID 01/23/2016 Inactive take probiotic BID x 7 days Flonase Allergy Relief 50 mcg/actuation nasal spray, suspension RxNorm: 6726201 1 [place] NASAL each nare daily 01/19/2016 01/18/2016 Inactive allopurinol 300 mg tablet RxNorm: 225696 TAKE ONE TABLET BY MOUTH DAILY 01/18/2016 04/16/2016 Inactive Lasix 40 mg tablet RxNorm: 933458 1 Tablet(s) PO daily 201501/07/2017 Inactive (this was only twice daily x1 week) now it's daily cefdinir 300 mg capsule RxNorm: 096356 1 Capsule(s) PO BID 01/17/2016 Inactive take probiotic BID x 7 days cefdinir 300 mg capsule RxNorm: 900664 1 Capsule(s) PO BID 01/10/2016 Inactive buspirone 10 mg tablet RxNorm: 764439 TAKE ONE TABLET BY MOUTH THREE TIMES A DAY 01/11/2016 06/08/2016 Inactive hydrocodone 7.5 mg-acetaminophen 325 mg tablet RxNorm: 214915 1 or 2 Tablet(s) PO Q4-6H as needed pain 12/28/20152015 Inactive potassium chloride ER 10 mEq tablet,extended release(part/ cryst) RxNorm: 7117178 2 po TID x 2 days then 2 po BID Tablet(s) 12/28/2015 03/10/2016 Inactive potassium chloride ER 10 mEq tablet,extended release(part/ cryst) RxNorm: 7885014 TAKE ONE TABLET BY MOUTH TWICE A DAY FOR 1 WEEK THEN RETURN TO DAILY 12/28/2015 12/27/2015 Inactive meclizine 25 mg tablet RxNorm: 690516 1 Tablet(s) PO BID PRN No Stop Date Active potassium chloride ER 10 mEq tablet,extended release(part/ cryst) RxNorm: 9057645 1 Tablet(s) PO TID 12/08/2015 03/10/2016 Inactive potassium chloride ER 10 mEq tablet,extended release(part/ cryst) RxNorm: 9897002 2 Tablet(s) PO daily 11/26/20152015 Inactive cyanocobalamin (vit B-12) 1,000 mcg/mL injection solution RxNorm: 389395 INJECT 1 ML INTRAMUSCULARLY 2 TIMES A MONTH FOR 2 MONTHS, THEN ONCE A MONTH THEREAFTER 11/26/2015 04/23/2016 Inactive potassium chloride ER 10 mEq tablet,extended release(part/ cryst) RxNorm: 1640288 3 Tablet(s) PO daily 11/23/20152015 Inactive Lasix 40 mg tablet RxNorm: 104752 1 Tablet(s) PO daily 201501/13/2016 Inactive (this was only twice daily x1 week) now it's daily metolazone 5 mg tablet RxNorm: 153355 1 Tablet(s) BIW TAKE ONE TABLET BY MOUTH DAILY 11/12/2015 04/18/2016 Inactive hydrocodone 7.5 mg-acetaminophen 325 mg tablet RxNorm: 155820 1 or 2 Tablet(s) PO Q4-6H as needed pain 11/12/20152015 Inactive Lasix 40 mg tablet RxNorm: 734691 1 Tablet(s) PO daily 201511/11/2015 Inactive (this was only twice daily x1 week) now it's daily metolazone 5 mg tablet RxNorm: 264783 Tablet(s) TAKE ONE TABLET BY MOUTH DAILY 10/22/2015 10/29/2015 Inactive potassium chloride ER 10 mEq tablet,extended release(part/ cryst) RxNorm: 5920352 1 Tablet(s) PO daily 10/08/20152015 Inactive twice daily x 1 week then return to daily Lasix 40 mg tablet RxNorm: 647886 1 Tablet(s) PO daily 201511/09/2015 Inactive twice daily x 1 week then daily thereafter Keflex 500 mg capsule RxNorm: 198669 1 Capsule(s) PO TID 201510/02/2015 Inactive Keflex 500 mg capsule RxNorm: 984824 1 Capsule(s) PO TID 201509/22/2015 Inactive hydrocodone 7.5 mg-acetaminophen 325 mg tablet RxNorm: 941662 1 or 2 Tablet(s) PO Q4-6H as needed pain 09/22/20152015 Inactive potassium chloride ER 10 mEq tablet,extended release(part/ cryst) RxNorm: 5182913 1 Tablet(s) PO BID 09/22/2015 10/07/2015 Inactive twice daily x 1 week then return to daily Lasix 40 mg tablet RxNorm: 465274 1 Tablet(s) PO BID 201510/07/2015 Inactive twice daily x 1 week then daily thereafter allopurinol 300 mg tablet RxNorm: 204040 1 Tablet(s) PO daily 09/09/2015 01/06/2016 Inactive diltiazem 90 mg tablet RxNorm: 152067 Tablet(s) TAKE ONE TABLET BY MOUTH THREE TIMES A DAY 09/02/2015 01/28/2016 Inactive diltiazem 90 mg tablet RxNorm: 851517 TAKE ONE TABLET BY MOUTH THREE TIMES A DAY 08/31/2015 01/28/2016 Inactive diltiazem 90 mg tablet RxNorm: 028072 TAKE ONE TABLET BY MOUTH THREE TIMES A DAY 08/31/2015 09/01/2015 Inactive Xanax 0.25 mg tablet RxNorm: 979908 1 Tablet(s) PO TID as needed anxiety 08/28/2015 09/26/2015 Inactive Xanax 0.25 mg tablet RxNorm: 829139 1 Tablet(s) PO TID as needed anxiety 08/28/2015 08/27/2015 Inactive potassium chloride ER 10 mEq tablet,extended release(part/ cryst) RxNorm: 834963 TAKE ONE TABLET BY MOUTH DAILY 08/27/2015 2015 Inactive omeprazole 20 mg capsule,delayed release RxNorm: 528196 TAKE ONE CAPSULE BY MOUTH TWICE A DAY 08/16/2015 02/11/2016 Inactive omeprazole 20 mg capsule,delayed release RxNorm: 334086 TAKE ONE CAPSULE BY MOUTH TWICE A DAY 08/16/2015 08/15/2015 Inactive hydrocodone 7.5 mg-acetaminophen 325 mg tablet RxNorm: 567930 1 or 2 Tablet(s) PO Q4-6H as needed pain 08/11/20152015 Inactive omeprazole 20 mg capsule,delayed release RxNorm: 022540 Capsule(s) TAKE ONE CAPSULE BY MOUTH TWICE A DAY 08/03/2015 Inactive omeprazole 20 mg capsule,delayed release RxNorm: 495962 Capsule(s) TAKE ONE CAPSULE BY MOUTH TWICE A DAY 07/31/2015 Inactive buspirone 10 mg tablet RxNorm: 999611 TAKE ONE TABLET BY MOUTH THREE TIMES A DAY 07/13/2015 01/08/2016 Inactive metolazone 5 mg tablet RxNorm: 021662 TAKE ONE TABLET BY MOUTH DAILY 07/02/2015 07/09/2015 Inactive metolazone 5 mg tablet RxNorm: 027845 1 Tablet(s) PO daily 06/18/2015 Inactive metolazone 5 mg tablet RxNorm: 952020 1 Tablet(s) PO daily 06/14/2015 Inactive hydrocodone 7.5 mg-acetaminophen 325 mg tablet RxNorm: 107909 1or2 1 or 2 Tablet(s ) PO Q4-6H as needed pain 06/12/201507/10 Inactive warfarin 1 mg tablet RxNorm: 103074 1 Tablet(s) 04/15/2015 06/22/2015 Inactive take with 3mg to make 4mg on Mon and repeat in 1 week. hydrocodone 7.5 mg-acetaminophen 325 mg tablet RxNorm: 184391 1or2 or 2 Tablet(s) PO Q4-6H as needed pain 03/31/20152015 Inactive hydrocodone 7.5 mg-acetaminophen 325 mg tablet RxNorm: 570788 1or2 or 2 Tablet(s) PO Q4-6H as needed pain 03/25/20152015 Inactive warfarin 5 mg tablet RxNorm: 393015 1 Tablet(s) PO daily TAKE ONE TABLET BY MOUTH DAILY 03/05/2015 06/22/2015 Inactive Xarelto 20 mg tablet RxNorm: 6855566 1 Tablet(s) PO QPM 201503/04/2015 Inactive losartan 100 mg tablet RxNorm: 955510 1 Tablet(s) PO daily 05/201406/22/2015 Inactive [SAVINGS FOR NON-COVERED DRUGS -- BIN:[id number], PCN: ASPROD1, Group: [id number], ID# [id number], Questions: . THIS IS NOT INSURANCE.] Kenalog 40 mg/mL suspension for injection RxNorm: 4788968 1 Milliliter(s) Inj 01/30/2015 01/30/2015 Inactive hydrocodone 7.5 mg-acetaminophen 325 mg tablet RxNorm: 970098 1or2 or 2 Tablet(s) PO Q4-6H as needed pain 01/15/20152014 Inactive Lasix 40 mg tablet RxNorm: 293944 1 Tablet(s) PO daily 201409/21/2015 Inactive as needed for swelling-take potassium when you take lasix potassium chloride ER 10 mEq tablet,extended release(part/ cryst) RxNorm: 549426 2 Tablet(s) PO daily 01/06/2015 01/19/2015 Inactive Lasix 40 mg tablet RxNorm: 404497 1 Tablet(s) PO daily 201401/06/2015 Inactive Ok to fill 20mg, not 40mg as needed for swelling-take potassium when you take lasix potassium chloride ER 10 mEq tablet,extended release(part/ cryst) RxNorm: 102451 1 Tablet(s) PO BID 12/30/2014 01/05/2015 Inactive Vitamin D2 50,000 unit capsule RxNorm: 695684 TAKE 1 CAPSULE BY MOUTH ONCE WEEKLY FOR 12 WEEKS 12/30/2014 03/23/2015 Inactive potassium chloride ER 10 mEq tablet,extended release(part/ cryst) RxNorm: 386000 1 Tablet(s) PO daily 12/26/2014 12/29/2014 Inactive potassium chloride ER 10 mEq tablet,extended release(part/ cryst) RxNorm: 109897 1 Tablet(s) PO daily 12/26/2014 12/25/2014 Inactive omeprazole 20 mg capsule,delayed release RxNorm: 587193 TAKE ONE CAPSULE BY MOUTH TWICE A DAY 12/24/2014 07/21/2015 Inactive Flagyl 500 mg tablet RxNorm: 859071 1 Tablet(s) PO TID 201412/20/2014 Inactive Flagyl 500 mg tablet RxNorm: 112639 1 Tablet(s) PO TID 201412/10/2014 Inactive warfarin 3 mg tablet RxNorm: 188997 TAKE ONE TABLET BY MOUTH DAILY 11/13/2014 01/29/2015 Inactive warfarin 3 mg tablet RxNorm: 288592 TAKE ONE TABLET BY MOUTH DAILY 11/13/2014 01/29/2015 Inactive warfarin 3 mg tablet RxNorm: 696623 TAKE ONE TABLET BY MOUTH DAILY 11/13/2014 03/04/2015 Inactive warfarin 3 mg tablet RxNorm: 765674 1 Tablet(s) PO daily 201403/04/2015 Inactive allopurinol 300 mg tablet RxNorm: 579080 1 Tablet(s) PO daily 11/11/2014 03/10/2015 Inactive hydrocodone 7.5 mg-acetaminophen 325 mg tablet RxNorm: 206156 1or2 or 2 Tablet(s) PO Q4-6H as needed pain 11/10/20142014 Inactive hydrocodone 7.5 mg-acetaminophen 325 mg tablet RxNorm: 618832 1or2 or 2 Tablet(s) PO Q4-6H as needed pain 10/15/20142014 Inactive hydrocodone 7.5 mg-acetaminophen 325 mg tablet RxNorm: 783745 1or2 or 2 Tablet(s) PO Q4-6H as needed pain 10/15/20142014 Inactive Kenalog 40 mg/mL suspension for injection RxNorm: 4875104 Milliliter(s) Inj 10/14/2014 10/14/2014 Inactive ceftriaxone 500 mg solution for injection RxNorm: 1341386 Inj 10/14/2014 10/14/2014 Inactive Zithromax Z-Chito 250 mg tablet RxNorm: 851809 1 Tablet(s) PO UD 10/14/2014 01/29/2015 Inactive zpack cefdinir 300 mg capsule RxNorm: 547140 1 Capsule(s) PO BID 10/20/2014 Inactive Vitamin D2 50,000 unit capsule RxNorm: 629724 1 Capsule(s) PO weekly x 12 weeks 09/24/2014 09/23/2014 Inactive Vitamin D2 50,000 unit capsule RxNorm: 808806 1 Capsule(s) PO weekly x 12 weeks 09/24/2014 12/22/2014 Inactive warfarin 1 mg tablet RxNorm: 275093 TAKE 1/2 TABLET BY MOUTH DAILY WITH 3MG TABLET TO EQUAL 3.5MG DAILY 09/22/201404/2014 Inactive warfarin 1 mg tablet RxNorm: 839003 1/2 Tablet(s) PO daily 3.5mg 08/26/2014 2014 Inactive taking with a 3mg to make 3.5mg tablets Lasix 20 mg tablet RxNorm: 491748 1 Tablet(s) PO QDAY PRN 09/24/2014 Inactive Ok to fill 20mg, not 40mg as needed for swelling-take potassium when you take lasix buspirone 10 mg tablet RxNorm: 904606 1 Tablet(s) PO TID 201411/25/2014 Inactive takes it BID but if she feels anxious she takes one during the day Lasix 20 mg tablet RxNorm: 523312 1 Tablet(s) PO QDAY PRN 08/25/2014 Inactive as needed for swelling-take potassium when you take lasix warfarin 1 mg tablet RxNorm: 630953 1/2 Tablet(s) PO daily 3.5mg 08/15/2014 08/21/2014 Inactive taking with a 3mg to make 3.5mg tablets warfarin 3 mg tablet RxNorm: 147267 1 Tablet(s) PO daily 201410/11/2014 Inactive diltiazem 90 mg tablet RxNorm: 333638 1 Tablet(s) PO TID 201408/30/2015 Inactive warfarin 1 mg tablet RxNorm: 179632 1/2 Tablet(s) PO daily 3.5mg 08/05/2014 08/11/2014 Inactive taking with a 3mg to make 3.5mg tablets cyclobenzaprine 10 mg tablet RxNorm: 628218 1 Tablet(s) PO QHS 08/04/2014 11/01/2014 Inactive buspirone 10 mg tablet RxNorm: 922940 1 Tablet(s) PO QID 201408/21/2014 Inactive allopurinol 300 mg tablet RxNorm: 140103 1 Tablet(s) PO daily 08/04/2014 11/01/2014 Inactive clonazepam 0.5 mg tablet RxNorm: 466839 1 Tablet(s) PO daily 09/02/2014 Inactive omeprazole 20 mg capsule,delayed release RxNorm: 313452 1 Capsule(s) PO BID 08/04/2014 11/01/2014 Inactive atenolol 25 mg tablet RxNorm: 890614 1 Tablet(s) PO daily 201411/01/2014 Inactive warfarin 3 mg tablet RxNorm: 557252 1 Tablet(s) PO daily 201408/04/2014 Inactive diphenhydramine 2 % topical cream RxNorm: 9977702 1 Application TOP Q6 PRN 07/24/2014 01/29/2015 Inactive diltiazem 90 mg tablet RxNorm: 492752 1 Tablet(s) PO BID 201408/04/2014 Inactive cyclobenzaprine 10 mg tablet RxNorm: 675691 1 Tablet(s) PO QH 07/24/2014 08/03/2014 Inactive warfarin 2.5 mg tablet RxNorm: 709696 1 Tablet(s) PO daily 08/22/2014 Inactive [SAVINGS FOR NON-COVERED DRUGS -- BIN:200301, PCN: ASPROD1, Group: XXXXX, ID# [id number], Questions: . THIS IS NOT INSURANCE.] losartan 25 mg tablet RxNorm: 200037 1 Tablet(s) PO daily 201401/29/2015 Inactive [SAVINGS FOR NON-COVERED DRUGS -- BIN:[id number], PCN: ASPROD1, Group: XXXXX, ID # [id number], Questions: . THIS IS NOT INSURANCE.] isosorbide mononitrate oral RxNorm: 6057 oral No Start Date Active diltiazem ER 360 mg tablet,extended release 24 hr RxNorm: 217863 1 Tablet(s) PO daily No Start Date Active benazepril 10 mg tablet RxNorm: 816177 1 Tablet(s) PO daily No Start Date 07/14/2014 Inactive lisinopril 10 mg tablet RxNorm: 606753 1 Tablet(s) PO daily No Start Date 04/24/2016 Inactive clonazepam 0.5 mg tablet RxNorm: 937696 1 Tablet(s) PO daily No Start Date 08/03/2014 Inactive diltiazem 90 mg tablet RxNorm: 246380 1 Tablet(s) PO daily No Start Date 07/23/2014 Inactive atenolol 25 mg tablet RxNorm: 097253 1 Tablet(s) PO daily No Start Date 08/03/2014 Inactive buspirone 10 mg tablet RxNorm: 084740 1 Tablet(s) PO QID No Start Date 08/03/2014 Inactive omeprazole 20 mg capsule,delayed release RxNorm: 164001 1 Capsule(s) PO BID No Start Date 08/03/2014 Inactive allopurinol 300 mg tablet RxNorm: 526972 1 Tablet(s) PO daily No Start Date 08/03/2014 Inactive Xarelto 20 mg tablet RxNorm: 1186263 1 Tablet(s) PO daily No Start Date 03/03/2015 Inactive warfarin 2 mg tablet RxNorm: 530997 1 Tablet(s) PO daily No Start Date 07/16/2014 Inactive cyanocobalamin (vit B-12) 1,000 mcg/mL injection solution RxNorm: 193485 1 Milliliter(s) Inj monthly No Start Date Inactive cyclobenzaprine 10 mg tablet RxNorm: 730558 1 Tablet(s) PO BID No Start Date 07/23/2014 Inactive Eliquis 2.5 mg tablet RxNorm: 1487429 1 Tablet(s) PO daily No Start Date 03/03/2015 Inactive Medication Administered Medication Codes Instructions Start Date Status Kenalog 40 mg/mL suspension for injection RxNorm: 1060661 1Milliliter 01/30/2015 No longer Active Kenalog 40 mg/mL suspension for injection RxNorm: 6028559 Milliliter 10/14/2014 No longer Active ceftriaxone 500 mg solution for injection RxNorm: 6978591 10/14/2014 No longer Active Immunizations Vaccine Codes Date Status Influenza CVX: 141 12/10/2015 completed Assessments Condition Codes Effective Dates Other malaise ICD-10: R53.81 ICD-9: 780.79 12/12/2017 Essential (primary) hypertension ICD-10: I10 ICD-9: 401.9 12/12/2017 Vascular dementia without behavioral disturbance ICD-10: F01.50 ICD-9: 290.40 12/12/2017 jail (current) use of anticoagulants ICD-10: [...] Code Item Item Code Result Date Pt [id number] PT 29.3 seconds 12/18/2017 Pt Zhs1185 INR 2.8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
[2018-04-19 00:29] LABS: BILIRUBIN,URINE NEGATIVE (NEGATIVE); CLARITY,URINE SLIGHTLY CLOUDY; COLOR,URINE YELLOW; GLUCOSE, URINE (UA) NEGATIVE (NEGATIVE); KETONES,URINE NEGATIVE (NEGATIVE); LEUKOCYTE ESTERASE ,URINE 3+ (NEGATIVE); NITRITE,URINE NEGATIVE (NEGATIVE); PH,URINE 6.5 (5-9); PROTEIN,URINE 2+ (NEGATIVE); UROBILINOGEN,URINE NORMAL (NORMAL)
--- OUTSIDE RECORDS SUMMARY | 2018-04-19 00:32 | XMS REPORT | CCD ---
Author Author [facility] Organization [facility] Address [address] [place] [address] Phone Care Team Providers Care Insecticide Expert Name Role Phone PP Unavailable CCM Unavailable Summary Purpose Interface Exchange Insurance Providers Payer name Policy type / Coverage type Covered constitution party ID Effective Begin Date Effective End Date WPS Medicare Part B Medicare Part B [id number] Unknown Family history Mother Diagnosis Age At Onset Hypertension Unknown Heart Attack Unknown Social History Social History Element Codes Description Effective Dates Marital status Unknown 07/15/2014 Marital status Unknown 07/15/2014 Number of children Unknown 0 07/15/2014 Number of children Unknown 0 07/15/2014 Employment Unknown Retired 07/15/2014 Employment Unknown Retired 07/15/[address]: 442583575 Has never smoked or chewed tobacco 07/15/[address]: 470283942 Has never smoked or chewed tobacco 07/15/[address]: 617946005 Never drinks alcohol 07/15/[address]: 474462793 Never drinks alcohol 07/15/2014 Allergies, Adverse Reactions, Alerts Substance Reaction Codes Entered Date Inactivated Date Status * NO KNOWN FOOD ALLERGIES Unknown 07/15/2014 No Inactive Date Active SULFA(SULFONAMIDE ANTIBIOTICS) Unknown 07/15/2014 No Inactive Date Active Past Medical History Illness Codes Condition Status Onset Date Resolved Date Essential (primary) hypertension ICD-9: 401.9 ICD-10: I10 Active 01/13/2016 Unknown long-term (current) use of anticoagulants ICD-9: V58.61 ICD-10: [...] hypertension ICD-9: 401.9 ICD-10: I10 01/13/2016 Active 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 ICD-9: V58.61 ICD-10: [...] hydrocodone 7.5 mg-acetaminophen 325 mg tablet RxNorm: 327660 1 Tablet(s) PO daily as needed pain 12/12/20172017 Active cyanocobalamin (vit B-12) 1,000 mcg/mL injection solution RxNorm: 630618 INJECT 1 ML INTRAMUSCULARLY 2 TIMES A MONTH FOR 2 MONTHS, THEN ONCE A MONTH THEREAFTER 11/28/2017 01/22/2018 Active hydrocodone 7.5 mg-acetaminophen 325 mg tablet RxNorm: 562437 1-2 Tablet(s) PO Q4- 6H as needed pain 11/21/2017 12/11/2017 Inactive Lasix 40 mg tablet RxNorm: 875820 TAKE ONE TABLET BY MOUTH DAILY 10/23/2017 04/20/2018 Active Lexapro 5 mg tablet RxNorm: 054930 TAKE ONE TABLET BY MOUTH EVERY EVENING 10/23/2017 12/21/2017 Inactive buspirone 10 mg tablet RxNorm: 395352 TAKE ONE TABLET BY MOUTH THREE TIMES A DAY 10/02/2017 02/28/2018 Active omeprazole 20 mg capsule,delayed release RxNorm: 038302 TAKE ONE CAPSULE BY MOUTH TWICE A DAY 09/13/2017 03/11/2018 Active Levaquin 750 mg tablet RxNorm: 988799 1 tab every other day for 5 doses 1 Tablet(s ) PO 08/29/2017 08/28/2017 Inactive Levaquin 750 mg tablet RxNorm: 844000 1 tab every other day for 5 doses 1 Tablet(s ) PO 08/29/2017 09/02/2017 Inactive potassium chloride ER 10 mEq tablet,extended release RxNorm: 448751 TAKE TWO TABLETS BY MOUTH THREE TIMES A DAY 08/28/2017 12/25/2017 Inactive hydrocodone 7.5 mg-acetaminophen 325 mg tablet RxNorm: 329631 1-2 Tablet(s) PO Q4- 6H as needed pain 08/28/2017 09/26/2017 Inactive metoprolol tartrate 25 mg tablet RxNorm: 019063 TAKE 1/2 TABLET BY MOUTH TWO TIMES A DAY 07/25/2017 07/19/2018 Active Lexapro 5 mg tablet RxNorm: 848201 TAKE ONE TABLET BY MOUTH EVERY EVENING 07/21/2017 10/18/2017 Inactive hydrocodone 7.5 mg-acetaminophen 325 mg tablet RxNorm: 181204 1-2 Tablet(s) PO Q4- 6H as needed pain 07/19/2017 08/17/2017 Inactive hydrocodone 7.5 mg-acetaminophen 325 mg tablet RxNorm: 844475 1-2 Tablet(s) PO Q4- 6H as needed pain 07/03/2017 07/18/2017 Inactive hydrocodone 7.5 mg-acetaminophen 325 mg tablet RxNorm: 102418 1-2 Tablet(s) PO Q4- 6H as needed pain 05/25/2017 06/23/2017 Inactive cyanocobalamin (vit B-12) 1,000 mcg/mL injection solution RxNorm: 833493 INJECT 1 ML INTRAMUSCULARLY 2 TIMES A MONTH FOR 2 MONTHS, THEN ONCE A MONTH THEREAFTER 05/19/2017 08/10/2017 Inactive warfarin 5 mg tablet RxNorm: 076568 TAKE ONE TABLET BY MOUTH DAILY 04/26/2017 04/20/2018 Active buspirone 10 mg tablet RxNorm: 546413 TAKE ONE TABLET BY MOUTH THREE TIMES A DAY 04/26/2017 09/22/2017 Inactive Xanax 0.25 mg tablet RxNorm: 814076 1 Tablet(s) PO TID as needed anxiety 04/17/2017 05/15/2017 Inactive Levaquin 500 mg tablet RxNorm: 102580 1 Tablet(s) PO Q72H x3 doses 04/11/2017 04/10/2017 Inactive Levaquin 500 mg tablet RxNorm: 757379 1 Tablet(s) PO Q72H x3 doses 04/11/2017 07/03/2017 Inactive potassium chloride ER 10 mEq tablet,extended release RxNorm: 844737 TAKE TWO TABLETS BY MOUTH THREE TIMES A DAY 03/27/2017 08/23/2017 Inactive Tamiflu 75 mg capsule RxNorm: 490181 1 Capsule(s) PO BID 201707/03/2017 Inactive Zofran 4 mg tablet RxNorm: 210907 1 Tablet(s) PO QID as needed nausea 03/23/2017 06/20/2017 Inactive Zofran 4 mg tablet RxNorm: 118119 1 Tablet(s) PO QID as needed nausea 03/23/2017 03/22/2017 Inactive Tamiflu 75 mg capsule RxNorm: 470403 1 Capsule(s) PO BID 201703/22/2017 Inactive lisinopril 10 mg tablet RxNorm: 173595 TAKE ONE-HALF TABLET BY MOUTH DAILY 03/10/2017 06/02/2018 Active metolazone 5 mg tablet RxNorm: 181541 1 Tablet(s) PO TIW 201703/01/2018 Active hydrocodone 7.5 mg-acetaminophen 325 mg tablet RxNorm: 592850 1-2 Tablet(s) PO Q4- 6H as needed pain 02/23/2017 05/24/2017 Inactive omeprazole 20 mg capsule,delayed release RxNorm: 911264 Capsule(s) TAKE ONE CAPSULE BY MOUTH TWICE A DAY 02/08/2017 Inactive metolazone 5 mg tablet RxNorm: 764782 TAKE 1 TABLET BY MOUTH TWICE WEEKLY 02/08/2017 03/06/2017 Inactive Lexapro 5 mg tablet RxNorm: 719956 1 Tablet(s) PO QPM 201603/06/2017 Inactive hydrocodone 7.5 mg-acetaminophen 325 mg tablet RxNorm: 115104 1-2 Tablet(s) PO Q4- 6H as needed pain 01/16/2017 02/22/2017 Inactive Lasix 40 mg tablet RxNorm: 118518 TAKE ONE TABLET BY MOUTH DAILY 01/11/2017 10/07/2017 Inactive metoprolol tartrate 25 mg tablet RxNorm: 323906 TAKE 1/2 TABLET BY MOUTH TWO TIMES A DAY 01/11/2017 07/09/2017 Inactive allopurinol 300 mg tablet RxNorm: 604060 TAKE ONE TABLET BY MOUTH DAILY 01/09/2017 06/07/2017 Inactive hydrocodone 7.5 mg-acetaminophen 325 mg tablet RxNorm: 276247 1-2 Tablet(s) PO Q4- 6H as needed pain 12/06/2016 01/15/2017 Inactive lisinopril 10 mg tablet RxNorm: 735753 TAKE ONE-HALF TABLET BY MOUTH DAILY 12/02/2016 03/09/2017 Inactive buspirone 10 mg tablet RxNorm: 846532 TAKE ONE TABLET BY MOUTH THREE TIMES A DAY 10/25/2016 01/22/2017 Inactive buspirone 10 mg tablet RxNorm: 473364 TAKE ONE TABLET BY MOUTH THREE TIMES A DAY 10/25/2016 10/24/2016 Inactive hydrocodone 7.5 mg-acetaminophen 325 mg tablet RxNorm: 493130 1-2 or 2 Tablet(s) PO Q4-6H as needed pain 10/25/20162016 Inactive cyanocobalamin (vit B-12) 1,000 mcg/mL injection solution RxNorm: 200034 INJECT 1 ML INTRAMUSCULARLY 2 TIMES A MONTH FOR 2 MONTHS, THEN ONCE A MONTH THEREAFTER 10/24/2016 02/12/2017 Inactive metolazone 5 mg tablet RxNorm: 491583 TAKE 1 TABLET BY MOUTH TWICE WEEKLY 09/23/2016 01/12/2017 Inactive hydrocodone 7.5 mg-acetaminophen 325 mg tablet RxNorm: 303506 1-2 or 2 Tablet(s) PO Q4-6H as needed pain 09/13/20162016 Inactive Keflex 500 mg capsule RxNorm: 753564 1 Capsule(s) PO TID 201609/15/2016 Inactive Take with a probiotic BID Keflex 500 mg capsule RxNorm: 411088 1 Capsule(s) PO TID 201609/08/2016 Inactive Take with a probiotic BID metoprolol tartrate 25 mg tablet RxNorm: 400567 TAKE 1/2 TABLET BY MOUTH TWO TIMES A DAY 09/07/2016 01/04/2017 Inactive potassium chloride ER 10 mEq tablet,extended release RxNorm: 473042 TAKE TWO TABLETS BY MOUTH THREE TIMES A DAY 09/01/2016 02/27/2017 Inactive hydrocodone 7.5 mg-acetaminophen 325 mg tablet RxNorm: 113202 1 or 2 Tablet(s) PO Q4-6H as needed pain 08/31/20162016 Inactive omeprazole 20 mg capsule,delayed release RxNorm: 491045 TAKE ONE CAPSULE BY MOUTH TWICE A DAY 08/24/2016 02/07/2017 Inactive hydrocodone 7.5 mg-acetaminophen 325 mg tablet RxNorm: 912987 1 or 2 Tablet(s) PO Q4-6H as needed pain 08/05/20162016 Inactive lisinopril 10 mg tablet RxNorm: 786853 TAKE ONE-HALF TABLET BY MOUTH DAILY 07/28/2016 12/01/2016 Inactive hydrocodone 7.5 mg-acetaminophen 325 mg tablet RxNorm: 171256 1 or 2 Tablet(s) PO Q4-6H as needed pain 07/05/20162016 Inactive allopurinol 300 mg tablet RxNorm: 271803 TAKE ONE TABLET BY MOUTH DAILY 06/16/2016 12/12/2016 Inactive metoprolol tartrate 25 mg tablet RxNorm: 258282 TAKE 1/2 TABLET BY MOUTH TWO TIMES A DAY 06/16/2016 08/14/2016 Inactive buspirone 10 mg tablet RxNorm: 445759 TAKE ONE TABLET BY MOUTH THREE TIMES A DAY 06/15/2016 10/12/2016 Inactive hydrocodone 7.5 mg-acetaminophen 325 mg tablet RxNorm: 759255 1 or 2 Tablet(s) PO Q4-6H as needed pain 06/07/20162016 Inactive metoprolol tartrate 25 mg tablet RxNorm: 264169 1/2 Tablet(s) PO QPM 05/10/2016 06/08/2016 Inactive lisinopril 10 mg tablet RxNorm: 075889 1/2 Tablet(s) PO daily 04/26/2016 07/27/2016 Inactive hydrocodone 7.5 mg-acetaminophen 325 mg tablet RxNorm: 549856 1 or 2 Tablet(s) PO Q4-6H as needed pain 04/25/20162016 Inactive lisinopril 10 mg tablet RxNorm: 861624 1/2 Tablet(s) PO daily 04/25/2016 04/25/2016 Inactive metoprolol tartrate 25 mg tablet RxNorm: 191722 1/2 Tablet(s) PO BID 04/25/2016 05/09/2016 Inactive allopurinol 300 mg tablet RxNorm: 106369 TAKE ONE TABLET BY MOUTH DAILY 04/19/2016 06/15/2016 Inactive metolazone 5 mg tablet RxNorm: 777209 TAKE 1 TABLET BY MOUTH TWICE WEEKLY 04/19/2016 09/05/2016 Inactive potassium chloride ER 10 mEq tablet,extended release RxNorm: 963011 2 Tablet(s) PO TID 03/21/2016 08/17/2016 Inactive warfarin 5 mg tablet RxNorm: 690440 1 Tablet(s) PO daily TAKE ONE TABLET BY MOUTH DAILY 03/21/2016 03/15/[address] Echevarria manages potassium chloride ER 10 mEq tablet,extended release(part/ cryst) RxNorm: 2758732 2 Tablet(s) PO TID 03/11/2016 03/20/2016 Inactive Xanax 0.25 mg tablet RxNorm: 823279 1 Tablet(s) PO TID as needed anxiety 03/10/2016 04/07/2016 Inactive Xanax 0.25 mg tablet RxNorm: 114446 1 Tablet(s) PO TID as needed anxiety 03/10/2016 04/06/2016 Inactive hydrocodone 7.5 mg-acetaminophen 325 mg tablet RxNorm: 903810 1 or 2 Tablet(s) PO Q4-6H as needed pain 02/26/20162016 Inactive Flonase Allergy Relief 50 mcg/actuation nasal spray, suspension RxNorm: 2204270 1 Dike NASAL each nare daily 01/19/2016 03/18/2016 Inactive cefdinir 300 mg capsule RxNorm: 893068 1 Capsule(s) PO BID 01/23/2016 Inactive take probiotic BID x 7 days Flonase Allergy Relief 50 mcg/actuation nasal spray, suspension RxNorm: 0009446 1 Dike NASAL each nare daily 01/19/2016 01/18/2016 Inactive allopurinol 300 mg tablet RxNorm: 492012 TAKE ONE TABLET BY MOUTH DAILY 01/18/2016 04/16/2016 Inactive Lasix 40 mg tablet RxNorm: 970765 1 Tablet(s) PO daily 201501/07/2017 Inactive (this was only twice daily x1 week) now it's daily cefdinir 300 mg capsule RxNorm: 484837 1 Capsule(s) PO BID 01/17/2016 Inactive take probiotic BID x 7 days cefdinir 300 mg capsule RxNorm: 460914 1 Capsule(s) PO BID 01/10/2016 Inactive buspirone 10 mg tablet RxNorm: 744521 TAKE ONE TABLET BY MOUTH THREE TIMES A DAY 01/11/2016 06/08/2016 Inactive hydrocodone 7.5 mg-acetaminophen 325 mg tablet RxNorm: 780762 1 or 2 Tablet(s) PO Q4-6H as needed pain 12/28/20152015 Inactive potassium chloride ER 10 mEq tablet,extended release(part/ cryst) RxNorm: 6688428 2 po TID x 2 days then 2 po BID Tablet(s) 12/28/2015 03/10/2016 Inactive potassium chloride ER 10 mEq tablet,extended release(part/ cryst) RxNorm: 6075499 TAKE ONE TABLET BY MOUTH TWICE A DAY FOR 1 WEEK THEN RETURN TO DAILY 12/28/2015 12/27/2015 Inactive meclizine 25 mg tablet RxNorm: 603784 1 Tablet(s) PO BID PRN No Stop Date Active potassium chloride ER 10 mEq tablet,extended release(part/ cryst) RxNorm: 5897795 1 Tablet(s) PO TID 12/08/2015 03/10/2016 Inactive potassium chloride ER 10 mEq tablet,extended release(part/ cryst) RxNorm: 1684840 2 Tablet(s) PO daily 11/26/20152015 Inactive cyanocobalamin (vit B-12) 1,000 mcg/mL injection solution RxNorm: 822726 INJECT 1 ML INTRAMUSCULARLY 2 TIMES A MONTH FOR 2 MONTHS, THEN ONCE A MONTH THEREAFTER 11/26/2015 04/23/2016 Inactive potassium chloride ER 10 mEq tablet,extended release(part/ cryst) RxNorm: 1108465 3 Tablet(s) PO daily 11/23/20152015 Inactive Lasix 40 mg tablet RxNorm: 1 Tablet(s) PO daily 201501/13/2016 Inactive (this was only twice daily x1 week) now it's daily metolazone 5 mg tablet RxNorm: 227990 1 Tablet(s) BIW TAKE ONE TABLET BY MOUTH DAILY 11/12/2015 04/18/2016 Inactive hydrocodone 7.5 mg-acetaminophen 325 mg tablet RxNorm: 556515 1 or 2 Tablet(s) PO Q4-6H as needed pain 11/12/20152015 Inactive Lasix 40 mg tablet RxNorm: 1 Tablet(s) PO daily 201511/11/2015 Inactive (this was only twice daily x1 week) now it's daily metolazone 5 mg tablet RxNorm: 957341 Tablet(s) TAKE ONE TABLET BY MOUTH DAILY 10/22/2015 10/29/2015 Inactive potassium chloride ER 10 mEq tablet,extended release(part/ cryst) RxNorm: 2525076 1 Tablet(s) PO daily 10/08/20152015 Inactive twice daily x 1 week then return to daily Lasix 40 mg tablet RxNorm: 241200 1 Tablet(s) PO daily 201511/09/2015 Inactive twice daily x 1 week then daily thereafter Keflex 500 mg capsule RxNorm: 522578 1 Capsule(s) PO TID 201510/02/2015 Inactive Keflex 500 mg capsule RxNorm: 284354 1 Capsule(s) PO TID 201509/22/2015 Inactive hydrocodone 7.5 mg-acetaminophen 325 mg tablet RxNorm: 211036 1 or 2 Tablet(s) PO Q4-6H as needed pain 09/22/20152015 Inactive potassium chloride ER 10 mEq tablet,extended release(part/ cryst) RxNorm: 8701540 1 Tablet(s) PO BID 09/22/2015 10/07/2015 Inactive twice daily x 1 week then return to daily Lasix 40 mg tablet RxNorm: 437346 1 Tablet(s) PO BID 201510/07/2015 Inactive twice daily x 1 week then daily thereafter allopurinol 300 mg tablet RxNorm: 872612 1 Tablet(s) PO daily 09/09/2015 01/06/2016 Inactive diltiazem 90 mg tablet RxNorm: 158796 Tablet(s) TAKE ONE TABLET BY MOUTH THREE TIMES A DAY 09/02/2015 01/28/2016 Inactive diltiazem 90 mg tablet RxNorm: 528915 TAKE ONE TABLET BY MOUTH THREE TIMES A DAY 08/31/2015 01/28/2016 Inactive diltiazem 90 mg tablet RxNorm: 714327 TAKE ONE TABLET BY MOUTH THREE TIMES A DAY 08/31/2015 09/01/2015 Inactive Xanax 0.25 mg tablet RxNorm: 461656 1 Tablet(s) PO TID as needed anxiety 08/28/2015 09/26/2015 Inactive Xanax 0.25 mg tablet RxNorm: 700561 1 Tablet(s) PO TID as needed anxiety 08/28/2015 08/27/2015 Inactive potassium chloride ER 10 mEq tablet,extended release(part/ cryst) RxNorm: 939293 TAKE ONE TABLET BY MOUTH DAILY 08/27/2015 2015 Inactive omeprazole 20 mg capsule,delayed release RxNorm: 199064 TAKE ONE CAPSULE BY MOUTH TWICE A DAY 08/16/2015 02/11/2016 Inactive omeprazole 20 mg capsule,delayed release RxNorm: 760441 TAKE ONE CAPSULE BY MOUTH TWICE A DAY 08/16/2015 08/15/2015 Inactive hydrocodone 7.5 mg-acetaminophen 325 mg tablet RxNorm: 128196 1 or 2 Tablet(s) PO Q4-6H as needed pain 08/11/20152015 Inactive omeprazole 20 mg capsule,delayed release RxNorm: 249388 Capsule(s) TAKE ONE CAPSULE BY MOUTH TWICE A DAY 08/03/2015 Inactive omeprazole 20 mg capsule,delayed release RxNorm: 784022 Capsule(s) TAKE ONE CAPSULE BY MOUTH TWICE A DAY 07/31/2015 Inactive buspirone 10 mg tablet RxNorm: 406565 TAKE ONE TABLET BY MOUTH THREE TIMES A DAY 07/13/2015 01/08/2016 Inactive metolazone 5 mg tablet RxNorm: 199831 TAKE ONE TABLET BY MOUTH DAILY 07/02/2015 07/09/2015 Inactive metolazone 5 mg tablet RxNorm: 144537 1 Tablet(s) PO daily 06/18/2015 Inactive metolazone 5 mg tablet RxNorm: 211850 1 Tablet(s) PO daily 06/14/2015 Inactive hydrocodone 7.5 mg-acetaminophen 325 mg tablet RxNorm: 741742 1or2 1 or 2 Tablet(s ) PO Q4-6H as needed pain 06/12/201507/10 Inactive warfarin 1 mg tablet RxNorm: 418826 1 Tablet(s) 04/15/2015 06/22/2015 Inactive take with 3mg to make 4mg on Mon and repeat in 1 week. hydrocodone 7.5 mg-acetaminophen 325 mg tablet RxNorm: 068548 1or2 or 2 Tablet(s) PO Q4-6H as needed pain 03/31/20152015 Inactive hydrocodone 7.5 mg-acetaminophen 325 mg tablet RxNorm: 729300 1or2 or 2 Tablet(s) PO Q4-6H as needed pain 03/25/20152015 Inactive warfarin 5 mg tablet RxNorm: 356256 1 Tablet(s) PO daily TAKE ONE TABLET BY MOUTH DAILY 03/05/2015 06/22/2015 Inactive Xarelto 20 mg tablet RxNorm: 7669493 1 Tablet(s) PO QPM 201503/04/2015 Inactive losartan 100 mg tablet RxNorm: 296660 1 Tablet(s) PO daily 05/201406/22/2015 Inactive [SAVINGS FOR NON-COVERED DRUGS -- BIN:[id number], PCN: ASPROD1, Group: XXXXX, ID# [id number], Questions: . THIS IS NOT INSURANCE.] Kenalog 40 mg/mL suspension for injection RxNorm: 3470489 1 Milliliter(s) Inj 01/30/2015 01/30/2015 Inactive hydrocodone 7.5 mg-acetaminophen 325 mg tablet RxNorm: 381401 1or2 or 2 Tablet(s) PO Q4-6H as needed pain 01/15/20152014 Inactive Lasix 40 mg tablet RxNorm: 554426 1 Tablet(s) PO daily 201409/21/2015 Inactive as needed for swelling-take potassium when you take lasix potassium chloride ER 10 mEq tablet,extended release(part/ cryst) RxNorm: 821835 2 Tablet(s) PO daily 01/06/2015 01/19/2015 Inactive Lasix 40 mg tablet RxNorm: 958577 1 Tablet(s) PO daily 201401/06/2015 Inactive Ok to fill 20mg, not 40mg as needed for swelling-take potassium when you take lasix potassium chloride ER 10 mEq tablet,extended release(part/ cryst) RxNorm: 019170 1 Tablet(s) PO BID 12/30/2014 01/05/2015 Inactive Vitamin D2 50,000 unit capsule RxNorm: 179818 TAKE 1 CAPSULE BY MOUTH ONCE WEEKLY FOR 12 WEEKS 12/30/2014 03/23/2015 Inactive potassium chloride ER 10 mEq tablet,extended release(part/ cryst) RxNorm: 257292 1 Tablet(s) PO daily 12/26/2014 12/29/2014 Inactive potassium chloride ER 10 mEq tablet,extended release(part/ cryst) RxNorm: 732735 1 Tablet(s) PO daily 12/26/2014 12/25/2014 Inactive omeprazole 20 mg capsule,delayed release RxNorm: 337200 TAKE ONE CAPSULE BY MOUTH TWICE A DAY 12/24/2014 07/21/2015 Inactive Flagyl 500 mg tablet RxNorm: 564659 1 Tablet(s) PO TID 201412/20/2014 Inactive Flagyl 500 mg tablet RxNorm: 758313 1 Tablet(s) PO TID 201412/10/2014 Inactive warfarin 3 mg tablet RxNorm: 449251 TAKE ONE TABLET BY MOUTH DAILY 11/13/2014 01/29/2015 Inactive warfarin 3 mg tablet RxNorm: 312222 TAKE ONE TABLET BY MOUTH DAILY 11/13/2014 01/29/2015 Inactive warfarin 3 mg tablet RxNorm: 265935 TAKE ONE TABLET BY MOUTH DAILY 11/13/2014 03/04/2015 Inactive warfarin 3 mg tablet RxNorm: 482182 1 Tablet(s) PO daily 201403/04/2015 Inactive allopurinol 300 mg tablet RxNorm: 708073 1 Tablet(s) PO daily 11/11/2014 03/10/2015 Inactive hydrocodone 7.5 mg-acetaminophen 325 mg tablet RxNorm: 242508 1or2 or 2 Tablet(s) PO Q4-6H as needed pain 11/10/20142014 Inactive hydrocodone 7.5 mg-acetaminophen 325 mg tablet RxNorm: 880508 1or2 or 2 Tablet(s) PO Q4-6H as needed pain 10/15/20142014 Inactive hydrocodone 7.5 mg-acetaminophen 325 mg tablet RxNorm: 411614 1or2 or 2 Tablet(s) PO Q4-6H as needed pain 10/15/20142014 Inactive Kenalog 40 mg/mL suspension for injection RxNorm: 9963252 Milliliter(s) Inj 10/14/2014 10/14/2014 Inactive ceftriaxone 500 mg solution for injection RxNorm: 0114543 Inj 10/14/2014 10/14/2014 Inactive Zithromax Z-Chito 250 mg tablet RxNorm: 760554 1 Tablet(s) PO UD 10/14/2014 01/29/2015 Inactive zpack cefdinir 300 mg capsule RxNorm: 061352 1 Capsule(s) PO BID 10/20/2014 Inactive Vitamin D2 50,000 unit capsule RxNorm: 532085 1 Capsule(s) PO weekly x 12 weeks 09/24/2014 09/23/2014 Inactive Vitamin D2 50,000 unit capsule RxNorm: 314250 1 Capsule(s) PO weekly x 12 weeks 09/24/2014 12/22/2014 Inactive warfarin 1 mg tablet RxNorm: 200029 TAKE 1/2 TABLET BY MOUTH DAILY WITH 3MG TABLET TO EQUAL 3.5MG DAILY 09/22/201404/2014 Inactive warfarin 1 mg tablet RxNorm: 141403 1/2 Tablet(s) PO daily 3.5mg 08/26/2014 2014 Inactive taking with a 3mg to make 3.5mg tablets Lasix 20 mg tablet RxNorm: 951489 1 Tablet(s) PO QDAY PRN 09/24/2014 Inactive Ok to fill 20mg, not 40mg as needed for swelling-take potassium when you take lasix buspirone 10 mg tablet RxNorm: 222657 1 Tablet(s) PO TID 201411/25/2014 Inactive takes it BID but if she feels anxious she takes one during the day Lasix 20 mg tablet RxNorm: 099922 1 Tablet(s) PO QDAY PRN 08/25/2014 Inactive as needed for swelling-take potassium when you take lasix warfarin 1 mg tablet RxNorm: 981699 1/2 Tablet(s) PO daily 3.5mg 08/15/2014 08/21/2014 Inactive taking with a 3mg to make 3.5mg tablets warfarin 3 mg tablet RxNorm: 881399 1 Tablet(s) PO daily 201410/11/2014 Inactive diltiazem 90 mg tablet RxNorm: 352593 1 Tablet(s) PO TID 201408/30/2015 Inactive warfarin 1 mg tablet RxNorm: 897151 1/2 Tablet(s) PO daily 3.5mg 08/05/2014 08/11/2014 Inactive taking with a 3mg to make 3.5mg tablets cyclobenzaprine 10 mg tablet RxNorm: 420755 1 Tablet(s) PO QHS 08/04/2014 11/01/2014 Inactive buspirone 10 mg tablet RxNorm: 034526 1 Tablet(s) PO QID 201408/21/2014 Inactive allopurinol 300 mg tablet RxNorm: 262510 1 Tablet(s) PO daily 08/04/2014 11/01/2014 Inactive clonazepam 0.5 mg tablet RxNorm: 397816 1 Tablet(s) PO daily 09/02/2014 Inactive omeprazole 20 mg capsule,delayed release RxNorm: 784389 1 Capsule(s) PO BID 08/04/2014 11/01/2014 Inactive atenolol 25 mg tablet RxNorm: 686107 1 Tablet(s) PO daily 201411/01/2014 Inactive warfarin 3 mg tablet RxNorm: 609833 1 Tablet(s) PO daily 201408/04/2014 Inactive diphenhydramine 2 % topical cream RxNorm: 6388788 1 Application TOP Q6 PRN 07/24/2014 01/29/2015 Inactive diltiazem 90 mg tablet RxNorm: 138366 1 Tablet(s) PO BID 201408/04/2014 Inactive cyclobenzaprine 10 mg tablet RxNorm: 601198 1 Tablet(s) PO QH 07/24/2014 08/03/2014 Inactive warfarin 2.5 mg tablet RxNorm: 978599 1 Tablet(s) PO daily 08/22/2014 Inactive [SAVINGS FOR NON-COVERED DRUGS -- BIN:[id number], PCN: ASPROD1, Group: XXXXX, ID# [id number], Questions: . THIS IS NOT INSURANCE.] losartan 25 mg tablet RxNorm: 966674 1 Tablet(s) PO daily 201401/29/2015 Inactive [SAVINGS FOR NON-COVERED DRUGS -- BIN:[id number], PCN: ASPROD1, Group: XXXXX, ID # [id number], Questions: . THIS IS NOT INSURANCE.] isosorbide mononitrate oral RxNorm: 6057 oral No Start Date Active diltiazem ER 360 mg tablet,extended release 24 hr RxNorm: 175309 1 Tablet(s) PO daily No Start Date Active benazepril 10 mg tablet RxNorm: 601906 1 Tablet(s) PO daily No Start Date 07/14/2014 Inactive lisinopril 10 mg tablet RxNorm: 869270 1 Tablet(s) PO daily No Start Date 04/24/2016 Inactive clonazepam 0.5 mg tablet RxNorm: 398247 1 Tablet(s) PO daily No Start Date 08/03/2014 Inactive diltiazem 90 mg tablet RxNorm: 009016 1 Tablet(s) PO daily No Start Date 07/23/2014 Inactive atenolol 25 mg tablet RxNorm: 502879 1 Tablet(s) PO daily No Start Date 08/03/2014 Inactive buspirone 10 mg tablet RxNorm: 349502 1 Tablet(s) PO QID No Start Date 08/03/2014 Inactive omeprazole 20 mg capsule,delayed release RxNorm: 620429 1 Capsule(s) PO BID No Start Date 08/03/2014 Inactive allopurinol 300 mg tablet RxNorm: 054809 1 Tablet(s) PO daily No Start Date 08/03/2014 Inactive Xarelto 20 mg tablet RxNorm: 3019369 1 Tablet(s) PO daily No Start Date 03/03/2015 Inactive warfarin 2 mg tablet RxNorm: 498328 1 Tablet(s) PO daily No Start Date 07/16/2014 Inactive cyanocobalamin (vit B-12) 1,000 mcg/mL injection solution RxNorm: 519240 1 Milliliter(s) Inj monthly No Start Date Inactive cyclobenzaprine 10 mg tablet RxNorm: 313236 1 Tablet(s) PO BID No Start Date 07/23/2014 Inactive Eliquis 2.5 mg tablet RxNorm: 5122391 1 Tablet(s) PO daily No Start Date 03/03/2015 Inactive Medication Administered Medication Codes Instructions Start Date Status Kenalog 40 mg/mL suspension for injection RxNorm: 9312209 1Milliliter 01/30/2015 No longer Active Kenalog 40 mg/mL suspension for injection RxNorm: 9863851 Milliliter 10/14/2014 No longer Active ceftriaxone 500 mg solution for injection RxNorm: 0515891 10/14/2014 No longer Active Immunizations Vaccine Codes Date Status Influenza CVX: 141 12/10/2015 completed Assessments Condition Codes Effective Dates Other malaise ICD-10: R53.81 ICD-9: 780.79 12/12/2017 Essential (primary) hypertension ICD-10: I10 ICD-9: 401.9 12/12/2017 Vascular dementia without behavioral disturbance ICD-10: F01.50 ICD-9: 290.40 12/12/2017 long-term (current) use of anticoagulants ICD-10: Z79.01 ICD-9: [...] Code Item Item Code Result Date Pt [id number] PT 29.3 seconds 12/18/2017 Pt [id number] INR 2.8 12/18/2017 Pt [id number] Low Intensity - 1.5-2.0 12/18/2017 Pt Imy9622 Mod intensity - 2.0-3.0 12/18/2017 Pt Fjo9867 Hi intensity - 3.0-4.0 12/18/2017 Metabolic Ord15 [...] Ord15 CALCIUM 9.7 mg/dL 12/18/2017 Comp Metabolic Aqy730 NA 138 mEq/L 09/29/2015 Comp Metabolic Zmg566 K 4.6 mEq/L 09/29/2015 Comp Metabolic Zox935 CL 102 mEq/L 09/29/2015 Comp Metabolic Bss553 CO2 28.0 mEq/L 09/29/2015 Comp Metabolic Mcw631 ANION GAP 13 09/29/2015 Comp Metabolic Beq067 GLUCOSE 83 mg/dL 09/29/2015 Comp Metabolic Tpq270 Creat 1.1 mg/dL 09/29/2015 Comp Metabolic Pgj620 eGFR 52 ml/min/1.73m2 09/29/2015 Comp Metabolic Pdg732 BUN 18 mg/dL 09/29/2015 Comp Metabolic Rek538 B/C Ratio 16.7 Ratio 09/29/2015 Comp Metabolic Frs930 CALCIUM 9.6 mg/dL 09/29/2015 Comp Metabolic Hrc088 ALK PHOS 188 U/L 09/29/2015 Comp Metabolic Ywa617 AST(SGOT) 19 U/L 09/29/2015 Comp Metabolic Nqa354 ALT(SGPT) 12 U/L 09/29/2015 Comp Metabolic Lzx974 BILI T 0.6 mg/dL 09/29/2015 Comp Metabolic Ehv077 ALBUMIN 4.0 g/dL 09/29/2015 Comp Metabolic Lfp990 TPRO 6.6 g/dL 09/29/2015 Comp Metabolic Frs755 GLOB 2.6 g/dL 09/29/2015 Comp Metabolic Fkp602 A/G Ratio 1.5 Ratio 09/29/2015 Comp Metabolic Sjf303 Osmo 277 mOsmo 09/29/2015 Cbc With Differential [...] 26.1 pg 09/29/2015 Cbc With Differential Ord2 [place]% 18.3 % 09/29/2015 Cbc With Differential Ord2 [...] 1.41 K/ul 09/29/2015 Cbc With Differential Ord2 [place] ABS# 1.8 K/ul 09/29/2015 Cbc With Differential Ord2 Eos ABS# 0.2 K/ul 09/29/2015 Cbc With Differential Ord2 Baso ABS# 0.1 K/ul 09/29/2015 Comp Metabolic Ags919 NA 134 mEq/L 09/22/2015 Comp Metabolic Ixq690 K 4.7 mEq/L 09/22/2015 Comp Metabolic Xuw057 CL 98 mEq/L 09/22/2015 Comp Metabolic Yix019 CO2 26.0 mEq/L 09/22/2015 Comp Metabolic Oge393 ANION GAP 15 09/22/2015 Comp Metabolic Gnm096 GLUCOSE 83 mg/dL 09/22/2015 Comp Metabolic Fcm934 Creat 1.1 mg/dL 09/22/2015 Comp Metabolic Uen627 eGFR 52 ml/min/1.73m2 09/22/2015 Comp Metabolic Scp551 BUN 19 mg/dL 09/22/2015 Comp Metabolic Ypn206 B/C Ratio 17.8 Ratio 09/22/2015 Comp Metabolic Asz119 CALCIUM 9.4 mg/dL 09/22/2015 Comp Metabolic Vul109 ALK PHOS 182 U/L 09/22/2015 Comp Metabolic Sqc607 AST(SGOT) 30 U/L 09/22/2015 Comp Metabolic Bha208 ALT(SGPT) 16 U/L 09/22/2015 Comp Metabolic Tec999 BILI T 0.8 mg/dL 09/22/2015 Comp Metabolic Arn030 ALBUMIN 3.9 g/dL 09/22/2015 Comp Metabolic Mom328 TPRO 6.8 g/dL 09/22/2015 Comp Metabolic Agy655 GLOB 2.9 g/dL 09/22/2015 Comp Metabolic Kgo072 A/G Ratio 1.3 Ratio 09/22/2015 Comp Metabolic Qxa999 Osmo 270 mOsmo 09/22/2015 Cbc With Differential [...] 25.7 pg 09/22/2015 Cbc With Differential Ord2 [place]% 15.4 % 09/22/2015 Cbc With Differential Ord2 [...] 1.81 K/ul 09/22/2015 Cbc With Differential Ord2 [place] ABS# 1.7 K/ul 09/22/2015 Cbc With Differential [...] 16.5 % 06/02/2015 Cbc With Differential Ord2 [place]% 16.6 % 06/02/2015 Cbc With Differential Ord2 [...] 1.74 K/ul 06/02/2015 Cbc With Differential Ord2 [place] ABS# 1.8 K/ul 06/02/2015 Cbc With Differential Ord2 Eos ABS# 0.1 K/ul 06/02/2015 Cbc With Differential Ord2 Baso ABS# 0.0 K/ul 06/02/2015 Cbc With Differential Ord2 New Analyzer Notice Please note new ref ranges starting 03-11-2015 due to implemntation of new five part differential hematolgy analyzer. 06/02/2015 Pt [id number] PT 21.8 seconds 06/02/2015 Pt Ymn1053 INR 2.0 06/02/2015 Pt Pdy3378 Low Intensity - 1.5-2.0 06/02/2015 Pt Qkp1551 Mod intensity - 2.0-3.0 06/02/2015 Pt Cda5867 Hi intensity - 3.0-4.0 06/02/2015 Comp Metabolic Vtm206 NA 132 mEq/L 06/02/2015 Comp Metabolic Bph984 K 4.4 mEq/L 06/02/2015 Comp Metabolic Olp099 CL 94 mEq/L 06/02/2015 Comp Metabolic Gif187 CO2 26.0 mEq/L 06/02/2015 Comp Metabolic Cjl327 ANION GAP 16 06/02/2015 Comp Metabolic Jqz134 GLUCOSE 97 mg/dL 06/02/2015 Comp Metabolic Kfu971 Creat 1.2 mg/dL 06/02/2015 Comp Metabolic Jeh182 eGFR 46 ml/min/1.73m2 06/02/2015 Comp Metabolic Iub853 BUN 19 mg/dL 06/02/2015 Comp Metabolic Fcy862 B/C Ratio 15.8 Ratio 06/02/2015 Comp Metabolic Xit736 CALCIUM 9.4 mg/dL 06/02/2015 Comp Metabolic Hnu716 ALK PHOS 178 U/L 06/02/2015 Comp Metabolic Twl274 AST(SGOT) 32 U/L 06/02/2015 Comp Metabolic Pou077 ALT(SGPT) 31 U/L 06/02/2015 Comp Metabolic Pkn814 BILI T 0.6 mg/dL 06/02/2015 Comp Metabolic Suu161 ALBUMIN 4.0 g/dL 06/02/2015 Comp Metabolic Wru833 TPRO 6.5 g/dL 06/02/2015 Comp Metabolic Rqc795 GLOB 2.5 g/dL 06/02/2015 Comp Metabolic Qwm747 A/G Ratio 1.6 Ratio 06/02/2015 Comp Metabolic Xbt443 Osmo 267 mOsmo 06/02/2015 Vitamin D 25 Oh Fpf9435 VITAMIN D, 25 HYDROXY 61.20 ng/mL B12 Xet277 B12 160.00 pg/ml 04/01/2015 Iron Ord72 Iron 39 ug/dl 04/01/2015 Tsh Ord6 hTSH II 1.87 uIU/mL 03/31/2015 Pt Gfb6216 PT 36.9 seconds 03/31/2015 Pt Axt6791 INR 3.9 03/31/2015 Pt Phl5127 Low Intensity - 1.5-2.0 03/31/2015 Pt Gsf9046 Mod intensity - 2.0-3.0 03/31/2015 Pt Ywz3801 Hi intensity - 3.0-4.0 03/31/2015 Comp Metabolic Knj427 NA 131 mEq/L 03/31/2015 Comp Metabolic Lvs475 K 5.3 mEq/L 03/31/2015 Comp Metabolic Gts494 CL 97 mEq/L 03/31/2015 Comp Metabolic Rtp696 CO2 24.0 mEq/L 03/31/2015 Comp Metabolic Dnh328 ANION GAP 15 03/31/2015 Comp Metabolic Ari434 GLUCOSE 84 mg/dL 03/31/2015 Comp Metabolic Izp719 Creat 1.3 mg/dL 03/31/2015 Comp Metabolic Rcz482 eGFR 42 ml/min/1.73m2 03/31/2015 Comp Metabolic Lqs840 BUN 26 mg/dL 03/31/2015 Comp Metabolic Yjs666 B/C Ratio 20.2 Ratio 03/31/2015 Comp Metabolic Dne550 CALCIUM 9.4 mg/dL 03/31/2015 Comp Metabolic Cvw264 ALK PHOS 172 U/L 03/31/2015 Comp Metabolic Txi578 AST(SGOT) 21 U/L 03/31/2015 Comp Metabolic Dys898 ALT(SGPT) 27 U/L 03/31/2015 Comp Metabolic Heu683 BILI T 0.5 mg/dL 03/31/2015 Comp Metabolic Tzw671 ALBUMIN 4.0 g/dL 03/31/2015 Comp Metabolic Czz533 TPRO 6.8 g/dL 03/31/2015 Comp Metabolic Agn091 GLOB 2.8 g/dL 03/31/2015 Comp Metabolic Zhq625 A/G Ratio 1.4 Ratio 03/31/2015 Comp Metabolic Zrp475 Osmo 267 mOsmo 03/31/2015 Cbc With Differential [...] 28.3 pg 03/31/2015 Cbc With Differential Ord2 [place]% 14.0 % 03/31/2015 Cbc With Differential Ord2 [...] 1.62 K/ul 03/31/2015 Cbc With Differential Ord2 [place] ABS# 1.6 K/ul 03/31/2015 Cbc With Differential [...] Magnesium Ord90 Mag 2.0 mg/dL 09/19/2014 Pt Hip5261 PT 29.1 seconds 09/19/2014 Pt Xrq7881 INR 2.9 09/19/2014 Pt Gmg0293 Low Intensity - 1.5-2.0 09/19/2014 Pt Zxr0800 Mod intensity - 2.0-3.0 09/19/2014 Pt Lfn1707 Hi intensity - 3.0-4.0 09/19/2014 Tsh Ord6 hTSH II 1.40 uIU/mL 09/19/2014 Lipid Ord30 CHOL 216 mg/dL 09/19/2014 Lipid Ord30 HDL 78.0 mg/dl 09/19/2014 Lipid Ord30 TRIG 85 mg/dL 09/19/2014 Lipid Ord30 LDL 121 mg/dL 09/19/2014 Lipid Ord30 C/HDL 2.8 Ratio 09/19/2014 Vitamin D 25 Oh Qje0484 VITAMIN D, 25 HYDROXY 14.13 ng/mL Comp Metabolic Vte861 NA 134 mEq/L 09/19/2014 Comp Metabolic Lnb136 K 4.7 mEq/L 09/19/2014 Comp Metabolic Hyi754 CL 98 mEq/L 09/19/2014 Comp Metabolic Uip741 CO2 27.0 mEq/L 09/19/2014 Comp Metabolic Dpw451 ANION GAP 14 09/19/2014 Comp Metabolic Nwf765 GLUCOSE 94 mg/dL 09/19/2014 Comp Metabolic Mgj782 Creat 1.1 mg/dL 09/19/2014 Comp Metabolic Zzr778 eGFR 49 ml/min/1.73m2 09/19/2014 Comp Metabolic Xvn888 BUN 14 mg/dL 09/19/2014 Comp Metabolic Pwd762 B/C Ratio 12.3 Ratio 09/19/2014 Comp Metabolic Sdl745 CALCIUM 9.7 mg/dL 09/19/2014 Comp Metabolic Ley132 ALK PHOS 150 U/L 09/19/2014 Comp Metabolic Bms130 AST(SGOT) 16 U/L 09/19/2014 Comp Metabolic Cwp681 ALT(SGPT) 9 U/L 09/19/2014 Comp Metabolic Bhu014 BILI T 0.8 mg/dL 09/19/2014 Comp Metabolic Iar320 ALBUMIN 3.9 g/dL 09/19/2014 Comp Metabolic Sbt994 TPRO 6.8 g/dL 09/19/2014 Comp Metabolic Tiu906 GLOB 2.9 g/dL 09/19/2014 Comp Metabolic Utt249 A/G Ratio 1.3 Ratio 09/19/2014 Comp Metabolic Nji933 Osmo 268 mOsmo 09/19/2014 Cbc With Differential [...] Model/CDA Sections, Assigned to/Indira Ibanez SNKIESHA CT: [id number] CPT-4: [id number] 12/10/2015 TRIAMCINOLONE ACET INJ NOS CPT-4: J3301 01/30/2015 URINALYSIS NONAUTO W/O SCOPE CPT-4: 47730 11/07/2014 ROCEPHIN, PER 250 MG CPT-4: J0696 10/14/2014 TRIAMCINOLONE ACET INJ NOS CPT-4: J3301 10/14/2014 Vital Signs Date Vital 12/12/2017 Blood Pressure 1: 130/60 Code : 8480-6 BMI: 25.2 Code : 66505-2 Heart Rate 1 : 60 bpm Height: 5'2" SpO2: 98% Weight: 138 lbs 09/05/2017 Blood Pressure 1: 108/46 Code : 8480-6 BMI: 24.0 Code : 20454-3 Heart Rate 1 : 70 bpm Height: 5'2" SpO2: 96% Weight: 131 lbs 05/09/2017 Blood Pressure 1: 122/82 Code : 8480-6 BMI: 25.2 Code : 74526-0 Heart Rate 1 : 72 bpm Height: 5'2" SpO2: 95% Weight: 138 lbs 03/07/2017 Blood Pressure 1: 108/52 Code : 8480-6 BMI: 27.6 Code : 86030-5 Heart Rate 1 : 72 bpm Height: 5'2" SpO2: 96% Weight: 151 lbs 01/24/2017 Blood Pressure 1: 126/60 Code : 8480-6 BMI: 27.1 Code : 77485-0 Heart Rate 1 : 60 bpm Height: [...] Code : 8480-6 BMI: 26.8 Code : 27340-6 Heart Rate 1 : 59 bpm Height: 5'2" SpO2: 97% Weight: 146 lbs 8 oz 05/10/2016 Blood Pressure 1: 120/56 Code : 8480-6 BMI: 27.1 Code : 41360-0 Heart Rate 1 : 63 bpm Height: 5'2" SpO2: 97% Weight: 148 lbs 04/25/2016 Blood Pressure 1: 134/66 Code : 8480-6 BMI: 24.9 Code : 88903-2 Heart Rate 1 : 118 bpm Height: 5'2" SpO2: 93% Temperature: 36.8 (C) / 98.3 (F) Weight: 136 lbs 01/14/2016 Blood Pressure 1: 132/78 Code : 8480-6 BMI: 25.6 Code : 79174-7 Heart Rate 1 : 97 bpm Height: 5'2" SpO2: 95% Weight: 140 lbs 12/10/2015 Blood Pressure 1: 118/72 Code : 8480-6 BMI: 26.2 Code : 54781-1 Heart Rate 1 : 68 bpm Height: 5'2" SpO2: 95% Weight: 143 lbs 11/12/2015 Blood Pressure 1: 140/80 Code : 8480-6 BMI: 25.6 Code : 16126-1 Heart Rate 1 : 77 bpm Height: 5'2" SpO2: 93% Weight: 140 lbs 10/08/2015 Blood Pressure 1: 132/60 Code : 8480-6 BMI: 26.2 Code : 18700-7 Heart Rate 1 : 77 bpm Height: 5'2" SpO2: 96% Weight: 143 lbs 09/29/2015 Blood Pressure 1: 130/62 Code : 8480-6 BMI: 27.1 Code : 72729-6 Heart Rate 1 : 86 bpm Height: 5'2" SpO2: 93% Weight: 148 lbs 09/22/2015 Blood Pressure 1: 164/72 Code : 8480-6 BMI: 28.2 Code : 94073-3 Heart Rate 1 : 79 bpm Height: 5'2" SpO2: 92% Weight: 154 lbs 07/21/2015 Blood Pressure 1: 124/70 Code : 8480-6 BMI: 24.5 Code : 25070-8 Heart Rate 1 : 71 bpm Height: 5'2" SpO2: 98% Weight: 134 lbs 06/23/2015 Blood Pressure 1: 122/68 Code : 8480-6 BMI: 25.4 Code : 92915-0 Heart Rate 1 : 78 bpm Height: 5'2" SpO2: 92% Weight: 139 lbs 06/12/2015 Blood Pressure 1: 154/62 Code : 8480-6 BMI: 27.4 Code : 91624-2 Heart Rate 1 : 87 bpm Height: 5'2" SpO2: 94% Weight: 150 lbs 06/02/2015 Blood Pressure 1: 140/68 Code : 8480-6 Heart Rate 1: 90 bpm SpO2: 91% Weight: 142 lbs 03/31/2015 Blood Pressure 1: 120/56 Code : 8480-6 BMI: 23.6 Code : 67226-2 Heart Rate 1 : 82 bpm Height: 5'2" SpO2: 98% Weight: 129 lbs 01/30/2015 Blood Pressure 1: 108/62 Code : 8480-6 BMI: 22.1 Code : 71026-8 Heart Rate 1 : 8299 bpm Height: 5'2 " SpO2: 99% Weight: 121 lbs 12/22/2014 Blood Pressure 1: 130/70 Code : 8480-6 BMI: 21.8 Code : 39699-6 Heart Rate 1 : 106 bpm Height: 5'2" SpO2: 98% Weight: 119 lbs 10/29/2014 Blood Pressure 1: 118/58 Code : 8480-6 BMI: 23.2 Code : 11789-6 Heart Rate 1 : 74 bpm Height: 5'2" SpO2: 93% Weight: 127 lbs 10/14/2014 Blood Pressure 1: 128/64 Code : 8480-6 BMI: 22.9 Code : 89966-5 Heart Rate 1 : 79 bpm Height: 5'2" SpO2: 93% Temperature: 35.9 (C) / 96.6 (F) Weight: 125 lbs 09/19/2014 Blood Pressure 1: 132/72 Code : 8480-6 BMI: 22.9 Code : 99548-9 Heart Rate 1 : 84 bpm Height: 5'2" SpO2: 96% Weight: 125 lbs 08/22/2014 Blood Pressure 1: 124/72 Code : 8480-6 BMI: 23.0 Code : 73228-1 Heart Rate 1 : 64 bpm Height: 5'2" Weight: 126 lbs 08/04/2014 Blood Pressure 1: 126/86 Code : 8480-6 BMI: 23.6 Code : 04916-7 Height: 5'2" Respiratory Rate: 20 bpm Weight: 129 lbs 07/24/2014 Blood Pressure 1: 116/72 Code : 8480-6 BMI: 23.6 Code : 41214-7 Heart Rate 1 : 74 bpm Height: 5'2" Weight: 129 lbs 07/15/2014 Blood Pressure 1: 132/78 Code : 8480-6 BMI: 24.1 Code : 14784-8 Heart Rate 1 : 74 bpm Height: [...] data Encounters Encounter Performer Location Codes Date [id number]) [id number] EST. PATIENT, LEVEL IV Diagnosis: Essential (primary) hypertension[ICD10: I10] Diagnosis: long-term (current) use of anticoagulants[ICD10: Z79.01] Diagnosis: Other malaise[ICD10: R53.81] Diagnosis: Vascular dementia without behavioral disturbance[ICD10: F01.50] Veronica Daigle MD, [facility] CPT-4: 66058 12/12/2017 ([id number]) 58761 EST. PATIENT, LEVEL IV Diagnosis: Paroxysmal atrial fibrillation[ICD10: I48.0] Diagnosis: Essential (primary) hypertension[ICD10: I10] Diagnosis: 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[ICD10: Z79.01] Diagnosis: Low back pain[ICD10: M54.5] Veronica Daigle MD, [facility] CPT- 4: 68535 09/05/2017 ([id number]) 39929 EST. PATIENT, LEVEL IV Diagnosis: Essential (primary) hypertension[ICD10: I10] Diagnosis: Generalized anxiety disorder[ICD10: F41.1] Diagnosis: Major depressive disorder, single episode, unspecified[ICD10: F32.9] Diagnosis: Localized edema[ICD10: R60.0] Veronica Daigle MD, [facility] CPT- 4: 99758 05/09/2017 ([id number]) 37698 EST. PATIENT, LEVEL IV Diagnosis: Essential (primary) hypertension[ICD10: I10] Diagnosis: Paroxysmal atrial fibrillation[ICD10: I48.0] Diagnosis: Generalized anxiety disorder[ICD10: F41.1] Diagnosis: Localized edema[ICD10: R60.0] Veronica Daigle MD, [facility] CPT- 4: 55819 03/07/2017 ([id number]) 63848 EST. PATIENT, LEVEL IV Diagnosis: Generalized anxiety disorder[ICD10: F41.1] Diagnosis: Major depressive disorder, single episode, unspecified[ICD10: F32.9] Diagnosis: Essential (primary) hypertension[ICD10: I10] Diagnosis: Paroxysmal atrial fibrillation[ICD10: I48.0] Merle Daigle MD, [facility] CPT-4: 11308 01/24/2017 [id number] EST. PATIENT, LEVEL IV Diagnosis: Other chest pain[ICD10: R07.89] Diagnosis: Other malaise[ICD10: R53.81] Opal Daigle MD, [facility] CPT-4 : 30123 09/29/2016 ([id number]) 78383 EST. PATIENT, LEVEL IV Diagnosis: Essential (primary) hypertension[ICD10: I10] Diagnosis: Paroxysmal atrial fibrillation[ICD10: I48.0] Diagnosis: Localized edema[ICD10: R60.0] Diagnosis: Generalized anxiety disorder[ICD10: F41.1] Diagnosis: Low back pain[ICD10: M54.5] Merle Daigle MD, [facility] CPT-4: 17376 09/13/2016 ([id number]) 13395 EST. PATIENT, LEVEL III Diagnosis: Essential (primary) hypertension[ICD10: I10] Diagnosis: Paroxysmal atrial fibrillation[ICD10: I48.0] Merle Daigle MD, [facility] CPT-4: 58742 05/31/2016 ([id number]) 13666 EST. PATIENT, LEVEL III Diagnosis: Essential (primary) hypertension[ICD10: I10] Diagnosis: Localized edema[ICD10: R60.0] Merle Daigle MD, [facility] CPT-4: 18467 05/10/2016 ([id number]) 54081 EST. PATIENT, LEVEL IV Diagnosis: Paroxysmal atrial fibrillation[ICD10: I48.0] Diagnosis: Essential (primary) hypertension[ICD10: I10] Diagnosis: Generalized anxiety disorder[ICD10: F41.1] Merle Daigle MD, [facility] CPT-4: 01272 04/25/2016 ([id number]) 83048 EST. PATIENT, LEVEL IV Diagnosis: Generalized anxiety disorder[ICD10: F41.1] Diagnosis: Essential (primary) hypertension[ICD10: I10] Diagnosis: Paroxysmal atrial fibrillation[ICD10: I48.0] Diagnosis: Localized edema[ICD10: R60.0] Diagnosis: Acute recurrent maxillary sinusitis[ICD10: J01.01] Merle Daigle MD, [facility] CPT-4: 19250 01/14/2016 ([id number]) 24142 EST. PATIENT, LEVEL IV Diagnosis: Essential (primary) hypertension[ICD10: I10] Diagnosis: Generalized anxiety disorder[ICD10: F41.1] Diagnosis: Localized edema[ICD10: R60.0] Diagnosis: Encounter for immunization[ICD10: Z23] Merle Daigle MD, [facility] CPT-4: 54776 12/10/2015 ([id number]) 78361 EST. PATIENT, LEVEL III Diagnosis: Essential (primary) hypertension[ICD10: I10] Diagnosis: Localized edema[ICD10: R60.0] Merle Daigle MD, [facility] CPT-4: 12752 11/12/2015 ([id number]) 44772 EST. PATIENT, LEVEL III Diagnosis: Essential (primary) hypertension[ICD10: I10] Diagnosis: Localized edema[ICD10: R60.0] Merle Daigle MD, [facility] CPT-4: 64826 10/08/2015 ([id number]) 11951 EST. PATIENT, LEVEL III Diagnosis: Localized edema[ICD10: R60.0] Diagnosis: Essential (primary) hypertension[ICD10: I10] Merle Daigle MD, [facility] CPT-4: 42553 09/29/2015 [id number]) 83192 EST. PATIENT, LEVEL IV Diagnosis: Localized edema[ICD10: R60.0] Diagnosis: Essential (primary) hypertension[ICD10: I10] Diagnosis: Paroxysmal atrial fibrillation[ICD10: I48.0] Merle Daigle MD, [facility] CPT-4: 63049 09/22/2015 ([id number]) 89867 EST. PATIENT, LEVEL III Diagnosis: Essential (primary) hypertension[ICD10: I10] Diagnosis: Paroxysmal atrial fibrillation[ICD10: I48.0] Merle Daigle MD, [facility] CPT-4: 39621 07/21/2015 ([id number]) 86978 EST. 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 PATIENT, LEVEL IV Diagnosis: Essential (primary) hypertension[ICD10: I10] Diagnosis: Paroxysmal atrial fibrillation[ICD10: I48.0] Diagnosis: Localized edema[ICD10: R60.0] Diagnosis: Encounter for therapeutic drug level monitoring[ICD10: Z51.81] Merle Daigle MD, [facility] CPT-4: 32570 06/02/2015 [id number]) 46054 EST. PATIENT, LEVEL IV Diagnosis: Essential (primary) hypertension[ICD10: I10] Diagnosis: Vitamin D deficiency, unspecified[ICD10: E55.9] Diagnosis: Major depressive disorder, single episode, unspecified[ICD10: F32.9] Diagnosis: Paroxysmal atrial fibrillation[ICD10: I48.0] Diagnosis: 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[ICD10: Z79.01] Merle Daigle MD , [facility] CPT-4: 26075 03/31/2015 ([id number]) 95059 EST. PATIENT, LEVEL III Diagnosis: Essential (primary) hypertension[ICD10: I10] Diagnosis: Allergic rhinitis due to pollen[ICD10: J30.1] Merle Daigle MD, [facility] CPT-4: 66732 01/30/2015 44607 EST. PATIENT, LEVEL III Diagnosis: Localized edema[ICD10: R60.0] Diagnosis: Diarrhea, unspecified[ICD10: R19.7] Veronica Daigle MD, [facility] CPT-4: 05156 12/22/2014 ([id number]) 13816 EST. PATIENT, LEVEL IV Diagnosis: DYSPHAGIA, PHARYNGEAL[ICD9: 787.23] Diagnosis: Low back pain[ICD9: 724.2] Diagnosis: Cough[ICD9: 786.2] Diagnosis: Anticoagulated on Coumadin[ICD9: V58.83] Diagnosis: MUSCLE WEAKNESS-GENERAL[ICD9: 728.87] Diagnosis: EDEMA[ICD9: 782.3] Veronica Daigle MD, [facility] CPT-4: 84396 10/29/2014 ([id number]) 66376 EST. PATIENT, LEVEL IV Diagnosis: Low back pain[ICD9: 724.2] Diagnosis: Pneumonia[ICD9: 486] Diagnosis: Cough[ICD9: 786.2] Diagnosis: Anticoagulated on Coumadin[ICD9: V58.83] Diagnosis: DYSPHAGIA, NOS[ICD9: 787.20] Diagnosis: MUSCLE WEAKNESS-GENERAL[ICD9: 728.87] Merle Daigle MD, [facility] CPT-4: 66495 10/14/2014 ([id number]) 99315 EST. PATIENT, LEVEL IV Diagnosis: ESSENTIAL HYPERTENSION[ICD9: 401.9] Diagnosis: ESOPHAGEAL REFLUX[ICD9: 530.81] Diagnosis: SLEEP RELATED LEG CRAMPS[ICD9: 327.52] Diagnosis: Atrial fibrillation[ICD9: 427.31] Diagnosis: Anticoagulated on Coumadin[ICD9: V58.83] Diagnosis: VITAMIN D DEFICIENCY[ICD9: 268.9] Merle Daigle MD, [facility] CPT-4: 94146 09/19/2014 ([id number]) 97003 EST. PATIENT, LEVEL III Diagnosis: EDEMA[ICD9: 782.3] Diagnosis: LONG-TERM USE ANTICOAGUL[ICD9: V58.61] Merle Daigle MD, [facility] CPT-4: 70496 08/22/2014 ([id number]) 48599 EST. PATIENT, LEVEL IV Diagnosis: Skin irritation[ICD9: 709.9] Diagnosis: ESSENTIAL HYPERTENSION[ICD9: 401.9] Diagnosis: Anticoagulated on Coumadin[ICD9: V58.83] Diagnosis: DEPRESSIVE DISORDER NEC[ICD9: 311] [facility] CPT-4: 19182 08/04/2014 ([id number]) 73675 EST. PATIENT, LEVEL III Diagnosis: Skin irritation[ICD9: 709.9] Veronica Daigle MD, [facility] CPT- 4: 59394 07/24/2014 ([id number]) OFFICE/OUTPATIENT VISIT NEW Diagnosis: ESSENTIAL HYPERTENSION[ICD9: 401.9] Diagnosis: COUGH[ICD9: 786.2] Diagnosis: Atrial fibrillation[ICD9: 427.31] Diagnosis: LONG-TERM USE ANTICOAGUL[ICD9: V58.61] Diagnosis: DEPRESSIVE DISORDER NEC[ICD9: 311] Veronica Daigle MD, [facility] CPT-4: 49792 07/15/2014 Plan of Care Planned Activity Notes [...] this time. 12/12/2017 Appointment: [facility] [phone] [facility] ([facility] min) Moderate 12/12/2017 Patient Education: Patient [...] pain medication stolen by a health care legal assistant through home health - i have given pt a script for 50 pills to get her through for when she can get her next RX for her pain medication. 09/05/2017 Appointment: Veronica Daigle WPtel: [phone] [facility] (15 min) Moderate 09/05/2017 Patient Education: Patient [...] medications. 05/09/2017 Appointment: Veronica Daigle WPtel: [phone] [facility] (15 min) Moderate 05/09/2017 Patient Education: Patient [...] current medications. 03/07/2017 Appointment: [facility] [phone] [facility] ([facility] min) Moderate 03/07/2017 Patient Education: Patient [...] uncontrolled. 01/24/2017 [phone] [phone] (30 min) Complex 01/24/2017 Patient Education: Patient [...] concerns. 09/29/2016 Appointment: Opal [facility] [phone] [facility] [place] (15 min) Moderate 09/29/2016 Appointment: [facility] [phone] [facility] [place] (15 min) Moderate 09/29/2016 Patient Education: [...] current medications. 09/13/2016 Appointment: [facility] [phone] [phone] [place] (30 min) Complex 09/13/2016 Patient Education: [...] becoming uncontrolled. 05/31/2016 Appointment: Merle Esparza WPtel: [facility] (30 min) Complex 05/31/2016 Patient Education: Patient [...] edema. CHECK LABS TODAY 05/10/2016 Appointment: Merle Esparzatel: [address] [place] [address] (30 min) Complex 05/10/2016 Patient Education: Patient Medication Summary Completed 05/10/2016 Patient Education: Hypertension Completed 05/10/2016 Appointment: Merle Esparza WPtel: [address] [place] [address] (15 min) Moderate 05/09/2016 Visit Plan: Afib-not [...] current medications. 04/25/2016 Appointment: Merle Esparza WPtel: [facility]9 [facility] [place] [address] (30 min) Complex 04/25/2016 Patient Education: Patient Medication Summary Completed 04/25/2016 Patient Education: Hypertension Completed 04/25/2016 Appointment: Merle Esparza WPtel: [facility]5 [id number] (15 min) Moderate 02/12/2016 Visit Plan: [...] becoming uncontrolled. 01/14/2016 Appointment: Merle Esparza WPtel: [facility]0 [id number] [place] [address] (30 min) Complex 01/14/2016 Patient Education: Patient [...] peripheral edema. 12/10/2015 Appointment: Merle Esparza WPtel: [phone] [phone] (30 min) Complex 12/10/2015 Patient Education: Patient [...] peripheral edema. 11/12/2015 Appointment: Merle Esparza WPtel: [facility] (15 min) Moderate 11/12/2015 Patient Education: Patient Medication Summary Completed 11/12/2015 Appointment: Merle Esparza WPtel: [address] [place] [address] (15 min) Moderate 10/22/2015 Visit Plan: Hypertension [...] peripheral edema. 10/08/2015 Appointment: Merle Esparza WPtel: [address] [place] [address] (15 min) Moderate 10/08/2015 Patient Education: Patient [...] pressure readings at home. 09/29/2015 Appointment: Merle Esparzatel: [phone] [phone] (15 min) Moderate 09/29/2015 Patient Education: Patient [...] edema. 09/22/2015 Appointment: Merle Esparza WPtel: [phone] [phone] (30 min) Complex 09/22/2015 Patient [...] week- will restart anti coagulant if able Nderu-gtoqmsxf-xc change in medications Anemia-received 1 unit blood last week-hgb repeated yesterday and has increased from 9.5 to 9.8-continue to monitor 06/23/2015 Appointment: EsparzaMerle WPtel: [address] [place], [place] [id number] (30 min) Complex 06/23/2015 Patient Education: Patient [...] Hypertension Completed 01/30/2015 Appointment: Veronica Daigle WPtel: [id number] (30 min) Complex 01/28/2015 Appointment: [...] home. 12/22/2014 [facility]ment[phone] [phone] ([facility] min) Complex 12/22/2014 Patient Education: [...] Care Plan: COMPLETE CBC AUTOMATED LOINC : 70629-7 Ordered 08/22/2014 Visit Plan: Itching/Skin irritation- Resolved. [...] if needed. 07/24/2014 Appointment: Yumiko Dickinson WPtel: [address] [place], [place] [id number] (10 min) Simple 07/24/2014 Patient Education: Patient [...] - she has refused to see a timber surveyor and reports to me that she will not go to the hospital and will not have the recommended testing. She states that she does not have any family left, and is not willing to have any further testing/treatment. Labs to be checked today for coumadin levels to be further adjusted. 07/15/2014 Appointment: Ver[facility] Daigle WPtel[facility] [phone] [id number] [place] New Patient 07/15/2014 [...] next week-will restart anti coagulant if able Tipnc-bydjxmei-as change in medications Anemia-received 1 unit blood [...] - she has refused to see a timber surveyor and reports to me that she will [...] pain medication stolen by a health care legal assistant through home health - i have [...] while on the antibiotics REFER TO HOME KYMMVE-Psnstik-ibxeg PT/INR on , PT SWALLOW STUDY DX dysphagia Shun (santosh) [phone] . Pneumonia - Pt has been diagnosed [...] while on the antibiotics REFER TO HOME ABGKFU-Ceorpxe-nlufu PT/INR on , PT SWALLOW STUDY DX dysphagia Shun (neighbor) [phone] . Pneumonia - Pt has been diagnosed [...] labs-cbc, mag Vitamin D deficiency-check vitamin D START METOPROLOL 12.5MG TWICE DAILY (YOU WILL [...] to further attempt to reduce peripheral edema. Njbqrsndm-umdinpbte-pzuhhr all of abx Atrial Fibrillation - pt [...] situational exposure. No change in current medications. Wear compression socks or sujata wraps daily [...]
[2018-04-19 00:35] VITALS: BP 88/78
[2018-04-19 00:44] LABS: BACTERIA,URINE FEW /HPF; HYALINE CASTS, URINE 0-2 /LPF; RBC,URINE RARE /HPF; WBC,URINE 25-50 /HPF
--- OUTSIDE RECORDS SUMMARY | 2018-04-19 00:50 | XMS REPORT | CCD ---
Author Author [facility] Organization [facility] Address [address] [place] [address] Phone Care Team Providers Care [place] [facility] Name Role Phone PP Unavailable CCM Unavailable Summary Purpose Interface Exchange Insurance Providers Payer name Policy type / Coverage type Covered green party ID Effective Begin Date Effective End Date WPS Medicare Part B Medicare Part B [id number] Unknown Unknown Family history Mother Diagnosis Age At Onset Hypertension Unknown Heart Attack Unknown Social History Social History Element Codes Description Effective Dates Marital status Unknown 07/15/2014 Marital status Unknown 07/15/2014 Number of children Unknown 0 07/15/2014 Number of children Unknown 0 07/15/2014 Employment Unknown Retired 07/15/2014 Employment Unknown Retired 07/15/[address]: 510784539 Has never smoked or chewed tobacco 07/15/[address]: 652215561 Has never smoked or chewed tobacco 07/15/[address]: 323978784 Never drinks alcohol 07/15/[address]: 558763203 Never drinks alcohol 07/15/2014 Allergies, Adverse Reactions, [...] ICD-9: V58.83 ICD-10: Z51.81 Active 06/01/2015 Unknown care home (current) use of anticoagulants ICD-9: V58.61 [...] monitoring ICD-9: V58.83 ICD-10: Z51.81 06/01/2015 Active care home (current) use of anticoagulants ICD-9: V58.61 [...] Start Date Stop Date Status Fill Instructions Levaquin 500 mg tablet RxNorm: 325822 1 Tablet(s) PO Q72H x3 doses 04/11/2017 04/13/2017 Active Levaquin 500 mg tablet RxNorm: 133980 1 Tablet(s) PO Q72H x3 doses 04/11/2017 04/10/2017 Inactive potassium chloride ER 10 mEq tablet,extended release RxNorm: 152942 TAKE TWO TABLETS BY MOUTH THREE TIMES A DAY 03/27/2017 08/23/2017 Active Tamiflu 75 mg capsule RxNorm: 110415 1 Capsule(s) PO BID 201703/27/2017 Inactive Zofran 4 mg tablet RxNorm: 044890 1 Tablet(s) PO QID as needed nausea 03/23/2017 06/20/2017 Active Zofran 4 mg tablet RxNorm: 347323 1 Tablet(s) PO QID as needed nausea 03/23/2017 03/22/2017 Inactive Tamiflu 75 mg capsule RxNorm: 341453 1 Capsule(s) PO BID 201703/22/2017 Inactive lisinopril 10 mg tablet RxNorm: 018814 TAKE ONE-HALF TABLET BY MOUTH DAILY 03/10/2017 06/02/2018 Active metolazone 5 mg tablet RxNorm: 664455 1 Tablet(s) PO TIW 201703/01/2018 Active hydrocodone 7.5 mg-acetaminophen 325 mg tablet RxNorm: 372736 1-2 Tablet(s) PO Q4- 6H as needed pain 02/23/2017 No Stop Date Active omeprazole 20 mg capsule,delayed release RxNorm: 801123 Capsule(s) TAKE ONE CAPSULE BY MOUTH TWICE A DAY 02/08/2017 Active metolazone 5 mg tablet RxNorm: 991925 TAKE 1 TABLET BY MOUTH TWICE WEEKLY 02/08/2017 03/06/2017 Inactive Lexapro 5 mg tablet RxNorm: 375937 1 Tablet(s) PO QPM 201603/06/2017 Inactive hydrocodone 7.5 mg-acetaminophen 325 mg tablet RxNorm: 011165 1-2 Tablet(s) PO Q4- 6H as needed pain 01/16/2017 02/22/2017 Inactive Lasix 40 mg tablet RxNorm: 906131 TAKE ONE TABLET BY MOUTH DAILY 01/11/2017 10/07/2017 Active metoprolol tartrate 25 mg tablet RxNorm: 973987 TAKE 1/2 TABLET BY MOUTH TWO TIMES A DAY 01/11/2017 07/09/2017 Active allopurinol 300 mg tablet RxNorm: 884066 TAKE ONE TABLET BY MOUTH DAILY 01/09/2017 06/07/2017 Active hydrocodone 7.5 mg-acetaminophen 325 mg tablet RxNorm: 806931 1-2 Tablet(s) PO Q4- 6H as needed pain 12/06/2016 01/15/2017 Inactive lisinopril 10 mg tablet RxNorm: 955695 TAKE ONE-HALF TABLET BY MOUTH DAILY 12/02/2016 03/09/2017 Inactive buspirone 10 mg tablet RxNorm: 749806 TAKE ONE TABLET BY MOUTH THREE TIMES A DAY 10/25/2016 01/22/2017 Inactive buspirone 10 mg tablet RxNorm: 859183 TAKE ONE TABLET BY MOUTH THREE TIMES A DAY 10/25/2016 10/24/2016 Inactive hydrocodone 7.5 mg-acetaminophen 325 mg tablet RxNorm: 606626 1-2 or 2 Tablet(s) PO Q4-6H as needed pain 10/25/20162016 Inactive cyanocobalamin (vit B-12) 1,000 mcg/mL injection solution RxNorm: 151202 INJECT 1 ML INTRAMUSCULARLY 2 TIMES A MONTH FOR 2 MONTHS, THEN ONCE A MONTH THEREAFTER 10/24/2016 02/12/2017 Inactive metolazone 5 mg tablet RxNorm: 148397 TAKE 1 TABLET BY MOUTH TWICE WEEKLY 09/23/2016 01/12/2017 Inactive hydrocodone 7.5 mg-acetaminophen 325 mg tablet RxNorm: 343324 1-2 or 2 Tablet(s) PO Q4-6H as needed pain 09/13/20162016 Inactive Keflex 500 mg capsule RxNorm: 824109 1 Capsule(s) PO TID 201609/15/2016 Inactive Take with a probiotic BID Keflex 500 mg capsule RxNorm: 332208 1 Capsule(s) PO TID 201609/08/2016 Inactive Take with a probiotic BID metoprolol tartrate 25 mg tablet RxNorm: 277931 TAKE 1/2 TABLET BY MOUTH TWO TIMES A DAY 09/07/2016 01/04/2017 Inactive potassium chloride ER 10 mEq tablet,extended release RxNorm: 244486 TAKE TWO TABLETS BY MOUTH THREE TIMES A DAY 09/01/2016 02/27/2017 Inactive hydrocodone 7.5 mg-acetaminophen 325 mg tablet RxNorm: 268230 1 or 2 Tablet(s) PO Q4-6H as needed pain 08/31/20162016 Inactive omeprazole 20 mg capsule,delayed release RxNorm: 331734 TAKE ONE CAPSULE BY MOUTH TWICE A DAY 08/24/2016 02/07/2017 Inactive hydrocodone 7.5 mg-acetaminophen 325 mg tablet RxNorm: 527624 1 or 2 Tablet(s) PO Q4-6H as needed pain 08/05/20162016 Inactive lisinopril 10 mg tablet RxNorm: 465664 TAKE ONE-HALF TABLET BY MOUTH DAILY 07/28/2016 12/01/2016 Inactive hydrocodone 7.5 mg-acetaminophen 325 mg tablet RxNorm: 756818 1 or 2 Tablet(s) PO Q4-6H as needed pain 07/05/20162016 Inactive allopurinol 300 mg tablet RxNorm: 595285 TAKE ONE TABLET BY MOUTH DAILY 06/16/2016 12/12/2016 Inactive metoprolol tartrate 25 mg tablet RxNorm: 754257 TAKE 1/2 TABLET BY MOUTH TWO TIMES A DAY 06/16/2016 08/14/2016 Inactive buspirone 10 mg tablet RxNorm: 363004 TAKE ONE TABLET BY MOUTH THREE TIMES A DAY 06/15/2016 10/12/2016 Inactive hydrocodone 7.5 mg-acetaminophen 325 mg tablet RxNorm: 069035 1 or 2 Tablet(s) PO Q4-6H as needed pain 06/07/20162016 Inactive metoprolol tartrate 25 mg tablet RxNorm: 104430 1/2 Tablet(s) PO QPM 05/10/2016 06/08/2016 Inactive lisinopril 10 mg tablet RxNorm: 573581 1/2 Tablet(s) PO daily 04/26/2016 07/27/2016 Inactive hydrocodone 7.5 mg-acetaminophen 325 mg tablet RxNorm: 239463 1 or 2 Tablet(s) PO Q4-6H as needed pain 04/25/20162016 Inactive lisinopril 10 mg tablet RxNorm: 830958 1/2 Tablet(s) PO daily 04/25/2016 04/25/2016 Inactive metoprolol tartrate 25 mg tablet RxNorm: 895525 1/2 Tablet(s) PO BID 04/25/2016 05/09/2016 Inactive allopurinol 300 mg tablet RxNorm: 688449 TAKE ONE TABLET BY MOUTH DAILY 04/19/2016 06/15/2016 Inactive metolazone 5 mg tablet RxNorm: 086951 TAKE 1 TABLET BY MOUTH TWICE WEEKLY 04/19/2016 09/05/2016 Inactive warfarin 5 mg tablet RxNorm: 250775 1 Tablet(s) PO daily TAKE ONE TABLET BY MOUTH DAILY 03/21/2016 03/15/[address] Echevarria manages potassium chloride ER 10 mEq tablet,extended release RxNorm: 342273 2 Tablet(s) PO TID 03/21/2016 08/17/2016 Inactive potassium chloride ER 10 mEq tablet,extended release(part/ cryst) RxNorm: 7291708 2 Tablet(s) PO TID 03/11/2016 03/20/2016 Inactive Xanax 0.25 mg tablet RxNorm: 933822 1 Tablet(s) PO TID as needed anxiety 03/10/2016 04/08/2016 Inactive Xanax 0.25 mg tablet RxNorm: 111645 1 Tablet(s) PO TID as needed anxiety 03/10/2016 04/06/2016 Inactive hydrocodone 7.5 mg-acetaminophen 325 mg tablet RxNorm: 022450 1 or 2 Tablet(s) PO Q4-6H as needed pain 02/26/20162016 Inactive Flonase Allergy Relief 50 mcg/actuation nasal spray, suspension RxNorm: 7074600 1 [place] NASAL each nare daily 01/19/2016 03/18/2016 Inactive cefdinir 300 mg capsule RxNorm: 885705 1 Capsule(s) PO BID 01/23/2016 Inactive take probiotic BID x 7 days Flonase Allergy Relief 50 mcg/actuation nasal spray, suspension RxNorm: 1945455 1 [place] NASAL each nare daily 01/19/2016 01/18/2016 Inactive allopurinol 300 mg tablet RxNorm: 348500 TAKE ONE TABLET BY MOUTH DAILY 01/18/2016 04/16/2016 Inactive Lasix 40 mg tablet RxNorm: 631960 1 Tablet(s) PO daily 201501/07/2017 Inactive (this was only twice daily x1 week) now it's daily cefdinir 300 mg capsule RxNorm: 270158 1 Capsule(s) PO BID 01/17/2016 Inactive take probiotic BID x 7 days cefdinir 300 mg capsule RxNorm: 847126 1 Capsule(s) PO BID 01/10/2016 Inactive buspirone 10 mg tablet RxNorm: 473310 TAKE ONE TABLET BY MOUTH THREE TIMES A DAY 01/11/2016 06/08/2016 Inactive hydrocodone 7.5 mg-acetaminophen 325 mg tablet RxNorm: 088482 1 or 2 Tablet(s) PO Q4-6H as needed pain 12/28/20152015 Inactive potassium chloride ER 10 mEq tablet,extended release(part/ cryst) RxNorm: 2830411 2 po TID x 2 days then 2 po BID Tablet(s) 12/28/2015 03/10/2016 Inactive potassium chloride ER 10 mEq tablet,extended release(part/ cryst) RxNorm: 4858513 TAKE ONE TABLET BY MOUTH TWICE A DAY FOR 1 WEEK THEN RETURN TO DAILY 12/28/2015 12/27/2015 Inactive meclizine 25 mg tablet RxNorm: 051607 1 Tablet(s) PO BID PRN No Stop Date Active potassium chloride ER 10 mEq tablet,extended release(part/ cryst) RxNorm: 0487728 1 Tablet(s) PO TID 12/08/2015 03/10/2016 Inactive potassium chloride ER 10 mEq tablet,extended release(part/ cryst) RxNorm: 9404390 2 Tablet(s) PO daily 11/26/20152015 Inactive cyanocobalamin (vit B-12) 1,000 mcg/mL injection solution RxNorm: 317729 INJECT 1 ML INTRAMUSCULARLY 2 TIMES A MONTH FOR 2 MONTHS, THEN ONCE A MONTH THEREAFTER 11/26/2015 04/23/2016 Inactive potassium chloride ER 10 mEq tablet,extended release(part/ cryst) RxNorm: 8098978 3 Tablet(s) PO daily 11/23/20152015 Inactive Lasix 40 mg tablet RxNorm: 701072 1 Tablet(s) PO daily 201501/13/2016 Inactive (this was only twice daily x1 week) now it's daily metolazone 5 mg tablet RxNorm: 381975 1 Tablet(s) BIW TAKE ONE TABLET BY MOUTH DAILY 11/12/2015 04/18/2016 Inactive hydrocodone 7.5 mg-acetaminophen 325 mg tablet RxNorm: 480871 1 or 2 Tablet(s) PO Q4-6H as needed pain 11/12/20152015 Inactive Lasix 40 mg tablet RxNorm: 433367 1 Tablet(s) PO daily 201511/11/2015 Inactive (this was only twice daily x1 week) now it's daily metolazone 5 mg tablet RxNorm: 775621 Tablet(s) TAKE ONE TABLET BY MOUTH DAILY 10/22/2015 10/29/2015 Inactive potassium chloride ER 10 mEq tablet,extended release(part/ cryst) RxNorm: 1237018 1 Tablet(s) PO daily 10/08/20152015 Inactive twice daily x 1 week then return to daily Lasix 40 mg tablet RxNorm: 344991 1 Tablet(s) PO daily 201511/09/2015 Inactive twice daily x 1 week then daily thereafter Keflex 500 mg capsule RxNorm: 759865 1 Capsule(s) PO TID 201510/02/2015 Inactive Keflex 500 mg capsule RxNorm: 942469 1 Capsule(s) PO TID 201509/22/2015 Inactive hydrocodone 7.5 mg-acetaminophen 325 mg tablet RxNorm: 281877 1 or 2 Tablet(s) PO Q4-6H as needed pain 09/22/20152015 Inactive potassium chloride ER 10 mEq tablet,extended release(part/ cryst) RxNorm: 6072014 1 Tablet(s) PO BID 09/22/2015 10/07/2015 Inactive twice daily x 1 week then return to daily Lasix 40 mg tablet RxNorm: 662220 1 Tablet(s) PO BID 201510/07/2015 Inactive twice daily x 1 week then daily thereafter allopurinol 300 mg tablet RxNorm: 391296 1 Tablet(s) PO daily 09/09/2015 01/06/2016 Inactive diltiazem 90 mg tablet RxNorm: 217214 Tablet(s) TAKE ONE TABLET BY MOUTH THREE TIMES A DAY 09/02/2015 01/28/2016 Inactive diltiazem 90 mg tablet RxNorm: 053688 TAKE ONE TABLET BY MOUTH THREE TIMES A DAY 08/31/2015 01/28/2016 Inactive diltiazem 90 mg tablet RxNorm: 979119 TAKE ONE TABLET BY MOUTH THREE TIMES A DAY 08/31/2015 09/01/2015 Inactive Xanax 0.25 mg tablet RxNorm: 170428 1 Tablet(s) PO TID as needed anxiety 08/28/2015 09/26/2015 Inactive Xanax 0.25 mg tablet RxNorm: 117858 1 Tablet(s) PO TID as needed anxiety 08/28/2015 08/27/2015 Inactive potassium chloride ER 10 mEq tablet,extended release(part/ cryst) RxNorm: 628417 TAKE ONE TABLET BY MOUTH DAILY 08/27/2015 2015 Inactive omeprazole 20 mg capsule,delayed release RxNorm: 615913 TAKE ONE CAPSULE BY MOUTH TWICE A DAY 08/16/2015 02/11/2016 Inactive omeprazole 20 mg capsule,delayed release RxNorm: 112729 TAKE ONE CAPSULE BY MOUTH TWICE A DAY 08/16/2015 08/15/2015 Inactive hydrocodone 7.5 mg-acetaminophen 325 mg tablet RxNorm: 721146 1 or 2 Tablet(s) PO Q4-6H as needed pain 08/11/20152015 Inactive omeprazole 20 mg capsule,delayed release RxNorm: 884683 Capsule(s) TAKE ONE CAPSULE BY MOUTH TWICE A DAY 08/03/2015 Inactive omeprazole 20 mg capsule,delayed release RxNorm: 381162 Capsule(s) TAKE ONE CAPSULE BY MOUTH TWICE A DAY 07/31/2015 Inactive buspirone 10 mg tablet RxNorm: 694749 TAKE ONE TABLET BY MOUTH THREE TIMES A DAY 07/13/2015 01/08/2016 Inactive metolazone 5 mg tablet RxNorm: 163822 TAKE ONE TABLET BY MOUTH DAILY 07/02/2015 07/09/2015 Inactive metolazone 5 mg tablet RxNorm: 243033 1 Tablet(s) PO daily 06/18/2015 Inactive metolazone 5 mg tablet RxNorm: 090213 1 Tablet(s) PO daily 06/14/2015 Inactive hydrocodone 7.5 mg-acetaminophen 325 mg tablet RxNorm: 230908 1or2 1 or 2 Tablet(s ) PO Q4-6H as needed pain 06/12/201507/10 Inactive warfarin 1 mg tablet RxNorm: 467142 1 Tablet(s) 04/15/2015 06/22/2015 Inactive take with 3mg to make 4mg on Mon and repeat in 1 week. hydrocodone 7.5 mg-acetaminophen 325 mg tablet RxNorm: 273620 1or2 or 2 Tablet(s) PO Q4-6H as needed pain 03/31/20152015 Inactive hydrocodone 7.5 mg-acetaminophen 325 mg tablet RxNorm: 848417 1or2 or 2 Tablet(s) PO Q4-6H as needed pain 03/25/20152015 Inactive warfarin 5 mg tablet RxNorm: 095939 1 Tablet(s) PO daily TAKE ONE TABLET BY MOUTH DAILY 03/05/2015 06/22/2015 Inactive Xarelto 20 mg tablet RxNorm: 6332632 1 Tablet(s) PO QPM 201503/04/2015 Inactive losartan 100 mg tablet RxNorm: 932196 1 Tablet(s) PO daily 05/201406/22/2015 Inactive [SAVINGS FOR NON-COVERED DRUGS -- BIN:209949, PCN: ASPROD1, Group: XXXXX, ID# [id number], Questions: . THIS IS NOT INSURANCE.] Kenalog 40 mg/mL suspension for injection RxNorm: 5743780 1 Milliliter(s) Inj 01/30/2015 01/30/2015 Inactive hydrocodone 7.5 mg-acetaminophen 325 mg tablet RxNorm: 614674 1or2 or 2 Tablet(s) PO Q4-6H as needed pain 01/15/20152014 Inactive Lasix 40 mg tablet RxNorm: 941368 1 Tablet(s) PO daily 201409/21/2015 Inactive as needed for swelling-take potassium when you take lasix potassium chloride ER 10 mEq tablet,extended release(part/ cryst) RxNorm: 988183 2 Tablet(s) PO daily 01/06/2015 01/19/2015 Inactive Lasix 40 mg tablet RxNorm: 744921 1 Tablet(s) PO daily 201401/06/2015 Inactive Ok to fill 20mg, not 40mg as needed for swelling-take potassium when you take lasix potassium chloride ER 10 mEq tablet,extended release(part/ cryst) RxNorm: 576015 1 Tablet(s) PO BID 12/30/2014 01/05/2015 Inactive Vitamin D2 50,000 unit capsule RxNorm: 120218 TAKE 1 CAPSULE BY MOUTH ONCE WEEKLY FOR 12 WEEKS 12/30/2014 03/23/2015 Inactive potassium chloride ER 10 mEq tablet,extended release(part/ cryst) RxNorm: 171804 1 Tablet(s) PO daily 12/26/2014 12/29/2014 Inactive potassium chloride ER 10 mEq tablet,extended release(part/ cryst) RxNorm: 925456 1 Tablet(s) PO daily 12/26/2014 12/25/2014 Inactive omeprazole 20 mg capsule,delayed release RxNorm: 272930 TAKE ONE CAPSULE BY MOUTH TWICE A DAY 12/24/2014 07/21/2015 Inactive Flagyl 500 mg tablet RxNorm: 163719 1 Tablet(s) PO TID 201412/20/2014 Inactive Flagyl 500 mg tablet RxNorm: 363477 1 Tablet(s) PO TID 201412/10/2014 Inactive warfarin 3 mg tablet RxNorm: 041654 TAKE ONE TABLET BY MOUTH DAILY 11/13/2014 01/29/2015 Inactive warfarin 3 mg tablet RxNorm: 155081 TAKE ONE TABLET BY MOUTH DAILY 11/13/2014 01/29/2015 Inactive warfarin 3 mg tablet RxNorm: 571353 TAKE ONE TABLET BY MOUTH DAILY 11/13/2014 03/04/2015 Inactive warfarin 3 mg tablet RxNorm: 948718 1 Tablet(s) PO daily 201403/04/2015 Inactive allopurinol 300 mg tablet RxNorm: 865737 1 Tablet(s) PO daily 11/11/2014 03/10/2015 Inactive hydrocodone 7.5 mg-acetaminophen 325 mg tablet RxNorm: 168964 1or2 or 2 Tablet(s) PO Q4-6H as needed pain 11/10/20142014 Inactive hydrocodone 7.5 mg-acetaminophen 325 mg tablet RxNorm: 509721 1or2 or 2 Tablet(s) PO Q4-6H as needed pain 10/15/20142014 Inactive hydrocodone 7.5 mg-acetaminophen 325 mg tablet RxNorm: 273217 1or2 or 2 Tablet(s) PO Q4-6H as needed pain 10/15/20142014 Inactive Kenalog 40 mg/mL suspension for injection RxNorm: 8502059 Milliliter(s) Inj 10/14/2014 10/14/2014 Inactive ceftriaxone 500 mg solution for injection RxNorm: 1279511 Inj 10/14/2014 10/14/2014 Inactive Zithromax Z-Chito 250 mg tablet RxNorm: 068992 1 Tablet(s) PO UD 10/14/2014 01/29/2015 Inactive jose cefdinir 300 mg capsule RxNorm: 077668 1 Capsule(s) PO BID 10/20/2014 Inactive Vitamin D2 50,000 unit capsule RxNorm: 860801 1 Capsule(s) PO weekly x 12 weeks 09/24/2014 09/23/2014 Inactive Vitamin D2 50,000 unit capsule RxNorm: 951226 1 Capsule(s) PO weekly x 12 weeks 09/24/2014 12/22/2014 Inactive warfarin 1 mg tablet RxNorm: 498738 TAKE 1/2 TABLET BY MOUTH DAILY WITH 3MG TABLET TO EQUAL 3.5MG DAILY 09/22/201404/2014 Inactive warfarin 1 mg tablet RxNorm: 351851 1/2 Tablet(s) PO daily 3.5mg 08/26/2014 2014 Inactive taking with a 3mg to make 3.5mg tablets Lasix 20 mg tablet RxNorm: 307329 1 Tablet(s) PO QDAY PRN 09/24/2014 Inactive Ok to fill 20mg, not 40mg as needed for swelling-take potassium when you take lasix buspirone 10 mg tablet RxNorm: 521041 1 Tablet(s) PO TID 201411/25/2014 Inactive takes it BID but if she feels anxious she takes one during the day Lasix 20 mg tablet RxNorm: 800396 1 Tablet(s) PO QDAY PRN 08/25/2014 Inactive as needed for swelling-take potassium when you take lasix warfarin 1 mg tablet RxNorm: 760580 1/2 Tablet(s) PO daily 3.5mg 08/15/2014 08/21/2014 Inactive taking with a 3mg to make 3.5mg tablets warfarin 3 mg tablet RxNorm: 631591 1 Tablet(s) PO daily 201410/11/2014 Inactive diltiazem 90 mg tablet RxNorm: 405957 1 Tablet(s) PO TID 201408/30/2015 Inactive warfarin 1 mg tablet RxNorm: 211894 1/2 Tablet(s) PO daily 3.5mg 08/05/2014 08/11/2014 Inactive taking with a 3mg to make 3.5mg tablets cyclobenzaprine 10 mg tablet RxNorm: 891904 1 Tablet(s) PO QHS 08/04/2014 11/01/2014 Inactive buspirone 10 mg tablet RxNorm: 834686 1 Tablet(s) PO QID 201408/21/2014 Inactive allopurinol 300 mg tablet RxNorm: 760166 1 Tablet(s) PO daily 08/04/2014 11/01/2014 Inactive clonazepam 0.5 mg tablet RxNorm: 072693 1 Tablet(s) PO daily 09/02/2014 Inactive omeprazole 20 mg capsule,delayed release RxNorm: 523148 1 Capsule(s) PO BID 08/04/2014 11/01/2014 Inactive atenolol 25 mg tablet RxNorm: 751322 1 Tablet(s) PO daily 201411/01/2014 Inactive warfarin 3 mg tablet RxNorm: 030670 1 Tablet(s) PO daily 201408/04/2014 Inactive diphenhydramine 2 % topical cream RxNorm: 1346804 1 Application TOP Q6 PRN 07/24/2014 01/29/2015 Inactive diltiazem 90 mg tablet RxNorm: 094631 1 Tablet(s) PO BID 201408/04/2014 Inactive cyclobenzaprine 10 mg tablet RxNorm: 291767 1 Tablet(s) PO QH 07/24/2014 08/03/2014 Inactive warfarin 2.5 mg tablet RxNorm: 090068 1 Tablet(s) PO daily 08/22/2014 Inactive [SAVINGS FOR NON-COVERED DRUGS -- BIN:[id number], PCN: ASPROD1, Group: XXXXX, ID# [id number], Questions: . THIS IS NOT INSURANCE.] losartan 25 mg tablet RxNorm: 291935 1 Tablet(s) PO daily 201401/29/2015 Inactive [SAVINGS FOR NON-COVERED DRUGS -- BIN:945671, PCN: ASPROD1, Group: XXXXX, ID # [id number], Questions: . THIS IS NOT INSURANCE.] isosorbide mononitrate oral RxNorm: 6057 oral No Start Date Active diltiazem ER 360 mg tablet,extended release 24 hr RxNorm: 375194 1 Tablet(s) PO daily No Start Date Active benazepril 10 mg tablet RxNorm: 866209 1 Tablet(s) PO daily No Start Date 07/14/2014 Inactive lisinopril 10 mg tablet RxNorm: 040999 1 Tablet(s) PO daily No Start Date 04/24/2016 Inactive clonazepam 0.5 mg tablet RxNorm: 061730 1 Tablet(s) PO daily No Start Date 08/03/2014 Inactive diltiazem 90 mg tablet RxNorm: 455660 1 Tablet(s) PO daily No Start Date 07/23/2014 Inactive atenolol 25 mg tablet RxNorm: 509697 1 Tablet(s) PO daily No Start Date 08/03/2014 Inactive buspirone 10 mg tablet RxNorm: 579301 1 Tablet(s) PO QID No Start Date 08/03/2014 Inactive omeprazole 20 mg capsule,delayed release RxNorm: 710224 1 Capsule(s) PO BID No Start Date 08/03/2014 Inactive allopurinol 300 mg tablet RxNorm: 608586 1 Tablet(s) PO daily No Start Date 08/03/2014 Inactive Xarelto 20 mg tablet RxNorm: 9018472 1 Tablet(s) PO daily No Start Date 03/03/2015 Inactive warfarin 2 mg tablet RxNorm: 648725 1 Tablet(s) PO daily No Start Date 07/16/2014 Inactive cyanocobalamin (vit B-12) 1,000 mcg/mL injection solution RxNorm: 293255 1 Milliliter(s) Inj monthly No Start Date Inactive cyclobenzaprine 10 mg tablet RxNorm: 878652 1 Tablet(s) PO BID No Start Date 07/23/2014 Inactive Eliquis 2.5 mg tablet RxNorm: 0760404 1 Tablet(s) PO daily No Start Date 03/03/2015 Inactive Medication Administered Medication Codes Instructions Start Date Status Kenalog 40 mg/mL suspension for injection RxNorm: 5384121 1Milliliter 01/30/2015 No longer Active ceftriaxone 500 mg solution for injection RxNorm: 5085621 10/14/2014 No longer Active Kenalog 40 mg/mL suspension for injection RxNorm: 1507033 Milliliter 10/14/2014 No longer Active Immunizations Vaccine [...] deficiency, unspecified ICD-10: E55.9 ICD-9: 268.9 03/31/2015 care home (current) use of anticoagulants ICD-10: Z79.01 ICD-9: [...] Item Item Code Result Date Comp Metabolic Znh577 NA 138 mEq/L 09/29/2015 Comp Metabolic Hnv736 K 4.6 mEq/L 09/29/2015 Comp Metabolic Lhh226 CL 102 mEq/L 09/29/2015 Comp Metabolic Zll748 CO2 28.0 mEq/L 09/29/2015 Comp Metabolic Mks282 ANION GAP 13 09/29/2015 Comp Metabolic Zwa723 GLUCOSE 83 mg/dL 09/29/2015 Comp Metabolic Utv432 Creat 1.1 mg/dL 09/29/2015 Comp Metabolic Azg352 eGFR 52 ml/min/1.73m2 09/29/2015 Comp Metabolic Tgh443 BUN 18 mg/dL 09/29/2015 Comp Metabolic Snb650 B/C Ratio 16.7 Ratio 09/29/2015 Comp Metabolic Mkf724 CALCIUM 9.6 mg/dL 09/29/2015 Comp Metabolic Hfb987 ALK PHOS 188 U/L 09/29/2015 Comp Metabolic Qhy721 AST(SGOT) 19 U/L 09/29/2015 Comp Metabolic Mmm157 ALT(SGPT) 12 U/L 09/29/2015 Comp Metabolic Ule886 BILI T 0.6 mg/dL 09/29/2015 Comp Metabolic Ppe702 ALBUMIN 4.0 g/dL 09/29/2015 Comp Metabolic Bhm524 TPRO 6.6 g/dL 09/29/2015 Comp Metabolic Gor081 GLOB 2.6 g/dL 09/29/2015 Comp Metabolic Bcs116 A/G Ratio 1.5 Ratio 09/29/2015 Comp Metabolic Wve384 Osmo 277 mOsmo 09/29/2015 Cbc With Differential [...] 26.1 pg 09/29/2015 Cbc With Differential Ord2 [place]% 18.3 % 09/29/2015 Cbc With Differential Ord2 [...] 1.41 K/ul 09/29/2015 Cbc With Differential Ord2 [place] ABS# 1.8 K/ul 09/29/2015 Cbc With Differential Ord2 Eos ABS# 0.2 K/ul 09/29/2015 Cbc With Differential Ord2 Baso ABS# 0.1 K/ul 09/29/2015 Comp Metabolic Nyx518 NA 134 mEq/L 09/22/2015 Comp Metabolic Ruy555 K 4.7 mEq/L 09/22/2015 Comp Metabolic Vfe775 CL 98 mEq/L 09/22/2015 Comp Metabolic Llg157 CO2 26.0 mEq/L 09/22/2015 Comp Metabolic Aye984 ANION GAP 15 09/22/2015 Comp Metabolic Esp675 GLUCOSE 83 mg/dL 09/22/2015 Comp Metabolic Tps005 Creat 1.1 mg/dL 09/22/2015 Comp Metabolic Zvi226 eGFR 52 ml/min/1.73m2 09/22/2015 Comp Metabolic Jwb665 BUN 19 mg/dL 09/22/2015 Comp Metabolic Fqp056 B/C Ratio 17.8 Ratio 09/22/2015 Comp Metabolic Nkl920 CALCIUM 9.4 mg/dL 09/22/2015 Comp Metabolic Xff070 ALK PHOS 182 U/L 09/22/2015 Comp Metabolic Xzx526 AST(SGOT) 30 U/L 09/22/2015 Comp Metabolic Bvp595 ALT(SGPT) 16 U/L 09/22/2015 Comp Metabolic Hcf668 BILI T 0.8 mg/dL 09/22/2015 Comp Metabolic Qud589 ALBUMIN 3.9 g/dL 09/22/2015 Comp Metabolic Zbe637 TPRO 6.8 g/dL 09/22/2015 Comp Metabolic Qcz208 GLOB 2.9 g/dL 09/22/2015 Comp Metabolic Mcb558 A/G Ratio 1.3 Ratio 09/22/2015 Comp Metabolic Pcj134 Osmo 270 mOsmo 09/22/2015 Cbc With Differential [...] 25.7 pg 09/22/2015 Cbc With Differential Ord2 [place]% 15.4 % 09/22/2015 Cbc With Differential Ord2 [...] 1.81 K/ul 09/22/2015 Cbc With Differential Ord2 [place] ABS# 1.7 K/ul 09/22/2015 Cbc With Differential [...] 88.0 fl 06/02/2015 Cbc With Differential Ord2 [place]% 16.6 % 06/02/2015 Cbc With Differential Ord2 [...] 1.74 K/ul 06/02/2015 Cbc With Differential Ord2 [place] ABS# 1.8 K/ul 06/02/2015 Cbc With Differential Ord2 Eos ABS# 0.1 K/ul 06/02/2015 Cbc With Differential Ord2 Baso ABS# 0.0 K/ul 06/02/2015 Cbc With Differential Ord2 New Analyzer Notice Please note new ref ranges starting 03-11-2015 due to implemntation of new five part differential hematolgy analyzer. 06/02/2015 Pt [id number] PT 21.8 seconds 06/02/2015 Pt [id number] INR 2.0 06/02/2015 Pt [id number] Low Intensity - 1.5-2.0 06/02/2015 Pt Itm8075 Mod intensity - 2.0-3.0 06/02/2015 Pt Hes6950 Hi intensity - 3.0-4.0 06/02/2015 Comp Metabolic Fwy896 NA 132 mEq/L 06/02/2015 Comp Metabolic Oqj468 K 4.4 mEq/L 06/02/2015 Comp Metabolic Qhg538 CL 94 mEq/L 06/02/2015 Comp Metabolic Ffh008 CO2 26.0 mEq/L 06/02/2015 Comp Metabolic Mnh975 ANION GAP 16 06/02/2015 Comp Metabolic Obf408 GLUCOSE 97 mg/dL 06/02/2015 Comp Metabolic Rcn488 Creat 1.2 mg/dL 06/02/2015 Comp Metabolic Lao696 eGFR 46 ml/min/1.73m2 06/02/2015 Comp Metabolic Dxz411 BUN 19 mg/dL 06/02/2015 Comp Metabolic Rha363 B/C Ratio 15.8 Ratio 06/02/2015 Comp Metabolic Abs368 CALCIUM 9.4 mg/dL 06/02/2015 Comp Metabolic Yqa179 ALK PHOS 178 U/L 06/02/2015 Comp Metabolic Ssu469 AST(SGOT) 32 U/L 06/02/2015 Comp Metabolic Fru650 ALT(SGPT) 31 U/L 06/02/2015 Comp Metabolic Ooh532 BILI T 0.6 mg/dL 06/02/2015 Comp Metabolic Lxe087 ALBUMIN 4.0 g/dL 06/02/2015 Comp Metabolic Bcj210 TPRO 6.5 g/dL 06/02/2015 Comp Metabolic Vzj437 GLOB 2.5 g/dL 06/02/2015 Comp Metabolic Evq670 A/G Ratio 1.6 Ratio 06/02/2015 Comp Metabolic Fco130 Osmo 267 mOsmo 06/02/2015 Vitamin D 25 Oh Nwf4318 VITAMIN D, 25 HYDROXY 61.20 ng/mL B12 Cld096 B12 160.00 pg/ml 04/01/2015 Iron Ord72 Iron 39 ug/dl 04/01/2015 Pt Ear2062 PT 36.9 seconds 03/31/2015 Pt Znq4685 INR 3.9 03/31/2015 Pt Cmr5544 Low Intensity - 1.5-2.0 03/31/2015 Pt Woo8810 Mod intensity - 2.0-3.0 03/31/2015 Pt Goc4980 Hi intensity - 3.0-4.0 03/31/2015 Cbc With [...] 88.9 fl 03/31/2015 Cbc With Differential Ord2 MCH 28.3 pg 03/31/2015 Cbc With Differential Ord2 [place]% 14.0 % 03/31/2015 Cbc With Differential Ord2 [...] 1.62 K/ul 03/31/2015 Cbc With Differential Ord2 [place] ABS# 1.6 K/ul 03/31/2015 Cbc With Differential Ord2 Eos ABS# 0.1 K/ul 03/31/2015 Cbc With Differential Ord2 Baso ABS# 0.0 K/ul 03/31/2015 Cbc With Differential Ord2 New Analyzer Notice Please note new ref ranges starting 03-11-2015 due to implemntation of new five part differential hematolgy analyzer. 03/31/2015 Comp Metabolic Qze038 NA 131 mEq/L 03/31/2015 Comp Metabolic Csr629 K 5.3 mEq/L 03/31/2015 Comp Metabolic Yto557 CL 97 mEq/L 03/31/2015 Comp Metabolic Ddy249 CO2 24.0 mEq/L 03/31/2015 Comp Metabolic Ina273 ANION GAP 15 03/31/2015 Comp Metabolic Cub239 GLUCOSE 84 mg/dL 03/31/2015 Comp Metabolic Tji694 Creat 1.3 mg/dL 03/31/2015 Comp Metabolic Nox288 eGFR 42 ml/min/1.73m2 03/31/2015 Comp Metabolic Kps165 BUN 26 mg/dL 03/31/2015 Comp Metabolic Dux361 B/C Ratio 20.2 Ratio 03/31/2015 Comp Metabolic Edf052 CALCIUM 9.4 mg/dL 03/31/2015 Comp Metabolic Slt518 ALK PHOS 172 U/L 03/31/2015 Comp Metabolic Oca589 AST(SGOT) 21 U/L 03/31/2015 Comp Metabolic Xor938 ALT(SGPT) 27 U/L 03/31/2015 Comp Metabolic Ddq683 BILI T 0.5 mg/dL 03/31/2015 Comp Metabolic Ref728 ALBUMIN 4.0 g/dL 03/31/2015 Comp Metabolic Zja674 TPRO 6.8 g/dL 03/31/2015 Comp Metabolic Vgu976 GLOB 2.8 g/dL 03/31/2015 Comp Metabolic Eio114 A/G Ratio 1.4 Ratio 03/31/2015 Comp Metabolic Ptq162 Osmo 267 mOsmo 03/31/2015 Tsh Ord6 hTSH II 1.87 uIU/mL 03/31/2015 Urine Culture Ucult Preliminary No Growth Day 1 11/10/2014 Urine Culture Ucult Complete No Growth Day 2 11/10/2014 Magnesium Ord90 Mag 2.0 mg/dL 09/19/2014 Pt Yzw2805 PT 29.1 seconds 09/19/2014 Pt Fmy0169 INR 2.9 09/19/2014 Pt Hbr6091 Low Intensity - 1.5-2.0 09/19/2014 Pt Hns2363 Mod intensity - 2.0-3.0 09/19/2014 Pt Gfo0934 Hi intensity - 3.0-4.0 09/19/2014 Vitamin D 25 Oh Dal9662 VITAMIN D, 25 HYDROXY 14.13 ng/mL Cbc With Differential Ord2 WBC 10.0 K/uL [...] Ord2 RDW 17.6 % 09/19/2014 Comp Metabolic Nna072 NA 134 mEq/L 09/19/2014 Comp Metabolic Vej675 K 4.7 mEq/L 09/19/2014 Comp Metabolic Ixk035 CL 98 mEq/L 09/19/2014 Comp Metabolic Wmb546 CO2 27.0 mEq/L 09/19/2014 Comp Metabolic Uot962 ANION GAP 14 09/19/2014 Comp Metabolic Vst072 GLUCOSE 94 mg/dL 09/19/2014 Comp Metabolic Uvy196 Creat 1.1 mg/dL 09/19/2014 Comp Metabolic Mdx805 eGFR 49 ml/min/1.73m2 09/19/2014 Comp Metabolic Bhe911 BUN 14 mg/dL 09/19/2014 Comp Metabolic Tmp341 B/C Ratio 12.3 Ratio 09/19/2014 Comp Metabolic Lhn030 CALCIUM 9.7 mg/dL 09/19/2014 Comp Metabolic Mtq316 ALK PHOS 150 U/L 09/19/2014 Comp Metabolic Xgc428 AST(SGOT) 16 U/L 09/19/2014 Comp Metabolic Dcy407 ALT(SGPT) 9 U/L 09/19/2014 Comp Metabolic Rhc572 BILI T 0.8 mg/dL 09/19/2014 Comp Metabolic Rte917 ALBUMIN 3.9 g/dL 09/19/2014 Comp Metabolic Zgd309 TPRO 6.8 g/dL 09/19/2014 Comp Metabolic Ngz874 GLOB 2.9 g/dL 09/19/2014 Comp Metabolic Cju735 A/G Ratio 1.3 Ratio 09/19/2014 Comp Metabolic Mfg439 Osmo 268 mOsmo 09/19/2014 Lipid Ord30 CHOL 216 mg/dL 09/19/2014 Lipid Ord30 HDL 78.0 mg/dl 09/19/2014 Lipid Ord30 TRIG 85 mg/dL 09/19/2014 Lipid Ord30 LDL 121 mg/dL 09/19/2014 Lipid Ord30 C/HDL 2.8 Ratio 09/19/2014 Tsh Ord6 hTSH II 1.40 uIU/mL [...] Model/CDA Sections, Assigned to/Shamar Indira SNOMED CT: 62815560 CPT-4: 56046Kgmlsqi 12/10/2015 TRIAMCINOLONE ACET INJ NOS CPT-4: J3301 01/30/2015 URINALYSIS NONAUTO W/O SCOPE CPT-4: 40433 11/07/2014 ROCEPHIN, PER 250 MG CPT-4: J0696 10/14/2014 TRIAMCINOLONE ACET INJ NOS CPT-4: J3301 10/14/2014 Vital Signs Date Vital 03/07/2017 Blood Pressure 1: 108/52 Code : 8480-6 BMI: 27.6 Code : 74194-9 Heart Rate 1 : 72 bpm Height: 5'2" SpO2: 96% Weight: 151 lbs 01/24/2017 Blood Pressure 1: 126/60 Code : 8480-6 BMI: 27.1 Code : 57035-9 Heart Rate 1 : 60 bpm Height: [...] Code : 8480-6 BMI: 26.8 Code : 35673-0 Heart Rate 1 : 59 bpm Height: 5'2" SpO2: 97% Weight: 146 lbs 8 oz 05/10/2016 Blood Pressure 1: 120/56 Code : 8480-6 BMI: 27.1 Code : 58541-0 Heart Rate 1 : 63 bpm Height: 5'2" SpO2: 97% Weight: 148 lbs 04/25/2016 Blood Pressure 1: 134/66 Code : 8480-6 BMI: 24.9 Code : 43681-8 Heart Rate 1 : 118 bpm Height: 5'2" SpO2: 93% Temperature: 36.8 (C) / 98.3 (F) Weight: 136 lbs 01/14/2016 Blood Pressure 1: 132/78 Code : 8480-6 BMI: 25.6 Code : 41600-2 Heart Rate 1 : 97 bpm Height: 5'2" SpO2: 95% Weight: 140 lbs 12/10/2015 Blood Pressure 1: 118/72 Code : 8480-6 BMI: 26.2 Code : 73337-6 Heart Rate 1 : 68 bpm Height: 5'2" SpO2: 95% Weight: 143 lbs 11/12/2015 Blood Pressure 1: 140/80 Code : 8480-6 BMI: 25.6 Code : 86204-5 Heart Rate 1 : 77 bpm Height: 5'2" SpO2: 93% Weight: 140 lbs 10/08/2015 Blood Pressure 1: 132/60 Code : 8480-6 BMI: 26.2 Code : 22601-5 Heart Rate 1 : 77 bpm Height: 5'2" SpO2: 96% Weight: 143 lbs 09/29/2015 Blood Pressure 1: 130/62 Code : 8480-6 BMI: 27.1 Code : 65748-8 Heart Rate 1 : 86 bpm Height: 5'2" SpO2: 93% Weight: 148 lbs 09/22/2015 Blood Pressure 1: 164/72 Code : 8480-6 BMI: 28.2 Code : 46291-0 Heart Rate 1 : 79 bpm Height: 5'2" SpO2: 92% Weight: 154 lbs 07/21/2015 Blood Pressure 1: 124/70 Code : 8480-6 BMI: 24.5 Code : 73430-6 Heart Rate 1 : 71 bpm Height: 5'2" SpO2: 98% Weight: 134 lbs 06/23/2015 Blood Pressure 1: 122/68 Code : 8480-6 BMI: 25.4 Code : 68268-2 Heart Rate 1 : 78 bpm Height: 5'2" SpO2: 92% Weight: 139 lbs 06/12/2015 Blood Pressure 1: 154/62 Code : 8480-6 BMI: 27.4 Code : 21962-8 Heart Rate 1 : 87 bpm Height: 5'2" SpO2: 94% Weight: 150 lbs 06/02/2015 Blood Pressure 1: 140/68 Code : 8480-6 Heart Rate 1: 90 bpm SpO2: 91% Weight: 142 lbs 03/31/2015 Blood Pressure 1: 120/56 Code : 8480-6 BMI: 23.6 Code : 93338-9 Heart Rate 1 : 82 bpm Height: 5'2" SpO2: 98% Weight: 129 lbs 01/30/2015 Blood Pressure 1: 108/62 Code : 8480-6 BMI: 22.1 Code : 79982-0 Heart Rate 1 : 8299 bpm Height: 5'2 " SpO2: 99% Weight: 121 lbs 12/22/2014 Blood Pressure 1: 130/70 Code : 8480-6 BMI: 21.8 Code : 91121-1 Heart Rate 1 : 106 bpm Height: 5'2" SpO2: 98% Weight: 119 lbs 10/29/2014 Blood Pressure 1: 118/58 Code : 8480-6 BMI: 23.2 Code : 96455-1 Heart Rate 1 : 74 bpm Height: 5'2" SpO2: 93% Weight: 127 lbs 10/14/2014 Blood Pressure 1: 128/64 Code : 8480-6 BMI: 22.9 Code : 50371-6 Heart Rate 1 : 79 bpm Height: 5'2" SpO2: 93% Temperature: 35.9 (C) / 96.6 (F) Weight: 125 lbs 09/19/2014 Blood Pressure 1: 132/72 Code : 8480-6 BMI: 22.9 Code : 82906-3 Heart Rate 1 : 84 bpm Height: 5'2" SpO2: 96% Weight: 125 lbs 08/22/2014 Blood Pressure 1: 124/72 Code : 8480-6 BMI: 23.0 Code : 12545-6 Heart Rate 1 : 64 bpm Height: 5'2" Weight: 126 lbs 08/04/2014 Blood Pressure 1: 126/86 Code : 8480-6 BMI: 23.6 Code : 41672-8 Height: 5'2" Respiratory Rate: 20 bpm Weight: 129 lbs 07/24/2014 Blood Pressure 1: 116/72 Code : 8480-6 BMI: 23.6 Code : 60975-7 Heart Rate 1 : 74 bpm Height: 5'2" Weight: 129 lbs 07/15/2014 Blood Pressure 1: 132/78 Code : 8480-6 BMI: 24.1 Code : 32264-3 Heart Rate 1 : 74 bpm Height: [...] data Encounters Encounter Performer Location Codes Date ([id number]) 10142 EST. PATIENT, LEVEL IV Diagnosis: Essential (primary) hypertension[ICD10: I10] Diagnosis: Paroxysmal atrial fibrillation[ICD10: I48.0] Diagnosis: Generalized anxiety disorder[ICD10: F41.1] Diagnosis: Localized edema[ICD10: R60.0] Veronica Daigle MD, [facility] CPT- 4: 79658 03/07/2017 [id number]) 44498 EST. PATIENT, LEVEL IV Diagnosis: Generalized anxiety disorder[ICD10: F41.1] Diagnosis: Major depressive disorder, single episode, unspecified[ICD10: F32.9] Diagnosis: Essential (primary) hypertension[ICD10: I10] Diagnosis: Paroxysmal atrial fibrillation[ICD10: I48.0] Merle Daigle MD, [facility] CPT-4: 83067 01/24/2017 54913 EST. PATIENT, LEVEL IV Diagnosis: Other chest pain[ICD10: R07.89] Diagnosis: Other malaise[ICD10: R53.81] Opal Daigle MD, [facility] CPT-4 : 40861 09/29/2016 ([id number]) 93716 EST. PATIENT, LEVEL IV Diagnosis: Essential (primary) hypertension[ICD10: I10] Diagnosis: Paroxysmal atrial fibrillation[ICD10: I48.0] Diagnosis: Localized edema[ICD10: R60.0] Diagnosis: Generalized anxiety disorder[ICD10: F41.1] Diagnosis: Low back pain[ICD10: M54.5] Merle Daigle MD, [facility] CPT-4: 77267 09/13/2016 [id number]) 50737 EST. PATIENT, LEVEL III Diagnosis: Essential (primary) hypertension[ICD10: I10] Diagnosis: Paroxysmal atrial fibrillation[ICD10: I48.0] Merle Daigle MD, [facility] CPT-4: 14096 05/31/2016 [id number]) 16278 EST. PATIENT, LEVEL III Diagnosis: Essential (primary) hypertension[ICD10: I10] Diagnosis: Localized edema[ICD10: R60.0] Merle Daigle MD, [facility] CPT-4: 50277 05/10/2016 [id number]) 87721 EST. PATIENT, LEVEL IV Diagnosis: Paroxysmal atrial fibrillation[ICD10: I48.0] Diagnosis: Essential (primary) hypertension[ICD10: I10] Diagnosis: Generalized anxiety disorder[ICD10: F41.1] Merle Daigle MD, [facility] CPT-4: 64715 04/25/2016 ([id number]) 20133 EST. PATIENT, LEVEL IV Diagnosis: Generalized anxiety disorder[ICD10: F41.1] Diagnosis: Essential (primary) hypertension[ICD10: I10] Diagnosis: Paroxysmal atrial fibrillation[ICD10: I48.0] Diagnosis: Localized edema[ICD10: R60.0] Diagnosis: Acute recurrent maxillary sinusitis[ICD10: J01.01] Merle Daigle MD, [facility] CPT-4: 00435 01/14/2016 ([id number]) 97718 EST. PATIENT, LEVEL IV Diagnosis: Essential (primary) hypertension[ICD10: I10] Diagnosis: Generalized anxiety disorder[ICD10: F41.1] Diagnosis: Localized edema[ICD10: R60.0] Diagnosis: Encounter for immunization[ICD10: Z23] Merle Daigle MD, [facility] CPT-4: 76742 12/10/2015 ([id number]) 82191 EST. PATIENT, LEVEL III Diagnosis: Essential (primary) hypertension[ICD10: I10] Diagnosis: Localized edema[ICD10: R60.0] Merle Daigle MD, [facility] CPT-4: 11841 11/12/2015 ([id number]) 58197 EST. PATIENT, LEVEL III Diagnosis: Essential (primary) hypertension[ICD10: I10] Diagnosis: Localized edema[ICD10: R60.0] Merle Daigle MD, [facility] CPT-4: 79280 10/08/2015 ([id number]) 08290 EST. PATIENT, LEVEL III Diagnosis: Localized edema[ICD10: R60.0] Diagnosis: Essential (primary) hypertension[ICD10: I10] Merle Daigle MD, [facility] CPT-4: 65496 09/29/2015 ([id number]) 85013 EST. PATIENT, LEVEL IV Diagnosis: Localized edema[ICD10: R60.0] Diagnosis: Essential (primary) hypertension[ICD10: I10] Diagnosis: Paroxysmal atrial fibrillation[ICD10: I48.0] Merle Daigle MD, [facility] CPT-4: 82654 09/22/2015 [id number]) 81693 EST. PATIENT, LEVEL III Diagnosis: Essential (primary) hypertension[ICD10: I10] Diagnosis: Paroxysmal atrial fibrillation[ICD10: I48.0] Merle Daigle MD, [facility] CPT-4: 06684 07/21/2015 ([id number]) 48185 EST. 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 CPT-4: 69447 06/23/2015 ([id number]) 10720 EST. 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 CPT-4: 86514 06/12/2015 ([id number]) 30130 EST. PATIENT, LEVEL IV Diagnosis: Essential (primary) hypertension[ICD10: I10] Diagnosis: Paroxysmal atrial fibrillation[ICD10: I48.0] Diagnosis: Localized edema[ICD10: R60.0] Diagnosis: Encounter for therapeutic drug level monitoring[ICD10: Z51.81] Merle Daigle MD, [facility] CPT-4: 43515 06/02/2015 ([id number]) 92061 EST. 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 CPT-4: 97520 03/31/2015 ([id number]) 58050 EST. PATIENT, LEVEL III Diagnosis: Essential (primary) hypertension[ICD10: I10] Diagnosis: Allergic rhinitis due to pollen[ICD10: J30.1] Merle Daigle MD, [facility] CPT-4: 80970 01/30/2015 73557 EST. PATIENT, LEVEL III Diagnosis: Localized edema[ICD10: R60.0] Diagnosis: Diarrhea, unspecified[ICD10: R19.7] Veronica Daigle MD, [facility] CPT-4: 21797 12/22/2014 [id number]) 79221 EST. PATIENT, LEVEL IV Diagnosis: DYSPHAGIA, PHARYNGEAL[ICD9: 787.23] Diagnosis: Low back pain[ICD9: 724.2] Diagnosis: Cough[ICD9: 786.2] Diagnosis: Anticoagulated on Coumadin[ICD9: V58.83] Diagnosis: MUSCLE WEAKNESS-GENERAL[ICD9: 728.87] Diagnosis: EDEMA[ICD9: 782.3] Veronica Daigle MD, [facility] CPT-4: 24782 10/29/2014 ([id number]) 91095 EST. PATIENT, LEVEL IV Diagnosis: Low back pain[ICD9: 724.2] Diagnosis: Pneumonia[ICD9: 486] Diagnosis: Cough[ICD9: 786.2] Diagnosis: Anticoagulated on Coumadin[ICD9: V58.83] Diagnosis: DYSPHAGIA, NOS[ICD9: 787.20] Diagnosis: MUSCLE WEAKNESS-GENERAL[ICD9: 728.87] Merle Daigle MD, [facility] CPT-4: 59297 10/14/2014 [id number]) 55421 EST. PATIENT, LEVEL IV Diagnosis: ESSENTIAL HYPERTENSION[ICD9: 401.9] Diagnosis: ESOPHAGEAL REFLUX[ICD9: 530.81] Diagnosis: SLEEP RELATED LEG CRAMPS[ICD9: 327.52] Diagnosis: Atrial fibrillation[ICD9: 427.31] Diagnosis: Anticoagulated on Coumadin[ICD9: V58.83] Diagnosis: VITAMIN D DEFICIENCY[ICD9: 268.9] Merle Daigle MD, [facility] CPT-4: 80321 09/19/2014 [id number]) 49808 EST. PATIENT, LEVEL III Diagnosis: EDEMA[ICD9: 782.3] Diagnosis: LONG-TERM USE ANTICOAGUL[ICD9: V58.61] Merle Daigle MD, [facility] CPT-4: 46477 08/22/2014 ([id number]) 49425 EST. PATIENT, LEVEL IV Diagnosis: Skin irritation[ICD9: 709.9] Diagnosis: ESSENTIAL HYPERTENSION[ICD9: 401.9] Diagnosis: Anticoagulated on Coumadin[ICD9: V58.83] Diagnosis: DEPRESSIVE DISORDER NEC[ICD9: 311] Yumiko Dickinson Veronica Daigle MD, [facility] CPT-4: 24584 08/04/2014 ([id number]) 79396 EST. PATIENT, LEVEL III Diagnosis: Skin irritation[ICD9: 709.9] Veronica Daigle MD, [facility] CPT- 4: 80631 07/24/2014 ([id number]) OFFICE/OUTPATIENT VISIT NEW Diagnosis: ESSENTIAL HYPERTENSION[ICD9: 401.9] Diagnosis: COUGH[ICD9: 786.2] Diagnosis: Atrial fibrillation[ICD9: 427.31] Diagnosis: LONG-TERM USE ANTICOAGUL[ICD9: V58.61] Diagnosis: DEPRESSIVE DISORDER NEC[ICD9: 311] Veronica Daigle MD, [facility] CPT-4: 96046 07/15/2014 Plan of Care Planned Activity Notes [...] medications. 03/07/2017 Appointment: [phone] (15 min) Moderate [...] becoming uncontrolled. 01/24/2017 Appointment: Merle Esparza WPtel: [phone] (30 min) Complex 01/24/2017 Patient Education: [...] or concerns. 09/29/2016 Appointment: Opal Boyle WPtel: [facility] (15 min) Moderate 09/29/2016 Appointment: Opal Boyle WPtel: [facility] (15 min) Moderate 09/29/2016 Patient Education: Patient [...] medications. 09/13/2016 Appointment: Merle Esparza WPtel: [phone] (30 min) Complex 09/13/2016 Patient Education: Patient [...] uncontrolled. 05/31/2016 Appointment: Merle Esparza WPtel: [phone] [place] [phone] (30 min) Complex 05/31/2016 Patient Education: Patient [...] TODAY 05/10/2016 Appointment: Merle Esparza WPtel: [phone] [phone] (30 min) Complex 05/10/2016 Patient Education: Patient Medication Summary Completed 05/10/2016 Patient Education: Hypertension Completed 05/10/2016 Appointment: Merle Esparza WPtel: [facility]5 [phone] [place] [address] (15 min) Moderate 05/09/2016 Visit Plan: Afib-not [...] medications. 04/25/2016 Appointment: Merle Esparza WPtel: [phone] (30 min) Complex 04/25/2016 Patient Education: Patient Medication Summary Completed 04/25/2016 Patient Education: Hypertension Completed 04/25/2016 Appointment: Merle Esparza WPtel: [phone] (15 min) Moderate 02/12/2016 Visit Plan: Hypertension [...] uncontrolled. 01/14/2016 Appointment: Merle Esparza WPtel: [phone] (30 min) Complex 01/14/2016 Patient Education: Patient [...] peripheral edema. 12/10/2015 Appointment: Merle Esparza WPtel: [phone] (30 min) Complex 12/10/2015 Patient Education: [...] edema. 11/12/2015 Appointment: Merle Esparza WPtel: [phone] (15 min) Moderate 11/12/2015 Patient Education: Patient Medication Summary Completed 11/12/2015 Appointment: Merle Esparza WPtel: [phone] (15 min) Moderate 10/22/2015 Visit Plan: Hypertension [...] peripheral edema. 10/08/2015 Appointment: Merle Esparza WPtel: [address] [place] [address] (15 min) Moderate 10/08/2015 Patient Education: Patient [...] at home. 09/29/2015 Appointment: Merle Esparza WPtel: [facility] (15 min) Moderate 09/29/2015 Patient Education: [...] [facility]el[facility] [phone] [phone] (30 min) Complex 09/22/2015 Patient Education: [...] week- will restart anti coagulant if able Voueb-msydgekz-al change in medications Anemia-received 1 unit blood last week-hgb repeated yesterday and has increased from 9.5 to 9.8-continue to monitor 06/23/2015 Appointment: [facility]el[phone] [phone] (30 min) Complex 06/23/2015 Patient Education: [...] Completed 01/30/2015 Appointment: Veronica Daigle WPtel: [phone] [facility] (30 min) Complex 01/28/2015 Appointment: (30 min) [...] home. 12/22/2014 Appointment: Merle Esparza WPtel: [phone] [phone] (30 min) Complex 12/22/2014 Patient Education: Patient [...] Care Plan: COMPLETE CBC AUTOMATED LOINC : 51962-2 Ordered 08/22/2014 Visit Plan: Itching/Skin irritation- Resolved. [...] if needed. 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 She states that she does not have any family left, and is not willing to have any further testing/treatment. Labs to be checked today for coumadin levels to be further adjusted. 07/15/2014 Appointment: Ver[facility] Daigle [facility]el[phone] [facility] [place] ([place] New [...] in blood pressure readings at home. START METOLAZONE 5MG TWICE PER WEEK-TUESDAYS AND [...] to further attempt to reduce peripheral edema. WE WILL CHECK YOUR PT/INR (WARFARIN LEVEL) TODAY I SENT A PRESCRIPTION FOR LASIX (FUROSEMIDE) TO [facility] YOU CAN TAKE 1 TAB DAILY NEEDED [...] CHEST XRAY, LUMBAR SPINE Antibiotics sent to [facility] Take a probiotic while on the antibiotics REFER TO HOME [id number]-Qnrjeij-wmnzh PT/INR on , PT SWALLOW STUDY DX dysphagia Shun (neighbor) [phone] . Pneumonia - Pt has been diagnosed [...] CHEST XRAY, LUMBAR SPINE [facility] Take a probiotic while on the antibiotics REFER TO HOME [id number]-Zraqupo-uwmec PT/INR on , PT SWALLOW STUDY DX dysphagia Shun (neighbor) [phone] . Pneumonia - Pt has been diagnosed [...] in 10 days or sooner if needed. . 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 Xnvpdicsd-naezpgtxn-lekriq all of abx Atrial Fibrillation - pt [...] for INR is between 2.0 and 3.5. increase the metalozone to three times a [...]
[2018-04-19] MEDS ORDERED: NS IV 1000 ML 1,000 ML ONE (02:39)
--- NOTE | 2018-04-19 07:08 | Diagnostic Imaging Report ---
EXAM: CHEST 1 VIEW, AP/PA ONLY INDICATION: Fall. COMPARISON: Chest radiograph 07/10/2017. FINDINGS: Stable cardiomegaly. Normal central pulmonary vascularity. Hyperinflation. No new focal pulmonary opacity, pleural effusion or pneumothorax. No acute osseous findings. Surgical clips in the upper abdomen. IMPRESSION: 1. No acute cardiopulmonary findings. 2. Cardiomegaly with normal central pulmonary vascularity. 3. Hyperinflation. Dictated by: Dictated on workstation # [id number]
--- NOTE | 2018-04-19 07:09 | Diagnostic Imaging Report ---
EXAM: PELVIS WITH LEFT HIP 2-3 VIEWS INDICATION: Fall. Left hip pain. COMPARISON: None. FINDINGS: Comminuted markedly displaced left intertrochanteric hip fracture. Demineralization. No other fractures. Soft tissue shadows are unremarkable. IMPRESSION: Comminuted markedly displaced left intertrochanteric hip fracture. Dictated by: Dictated on workstation # [id number]
== END 2018-04-19 00:45 | disposition short-term general hospital (02) ==
LOC: EDUNIT# 23:11 → ER 23:12
DX: S72.142A Displaced intertrochanteric fracture of left femur, initial encounter for closed fracture (principal); I48.2 Chronic atrial fibrillation; N39.0 Urinary tract infection, site not specified; G47.30 Sleep apnea, unspecified; I27.0 Primary pulmonary hypertension; I11.0 Hypertensive heart disease with heart failure; I50.30 Unspecified diastolic (congestive) heart failure; I25.10 Atherosclerotic heart disease of native coronary artery without angina pectoris; R40.2142 Coma scale, eyes open, spontaneous, at arrival to emergency department; R40.2252 Coma scale, best verbal response, oriented, at arrival to emergency department; R40.2362 Coma scale, best motor response, obeys commands, at arrival to emergency department; F41.9 Anxiety disorder, unspecified; K21.9 Gastro-esophageal reflux disease without esophagitis; Z88.2 Allergy status to sulfonamides; Z86.010 Personal history of colon polyps; Z82.49 Family history of ischemic heart disease and other diseases of the circulatory system; Z79.01 Long term (current) use of anticoagulants; Z80.8 Family history of malignant neoplasm of other organs or systems; Z98.890 Other specified postprocedural states; Z96.651 Presence of right artificial knee joint; Z90.49 Acquired absence of other specified parts of digestive tract; Z90.710 Acquired absence of both cervix and uterus; W18.39XA Other fall on same level, initial encounter
CPT/HCPCS: 36415; 51702; 71045; 80053; 81000; 83735; 85025; 85610; 85730; 87077; 87088; 93005; 93041

== ENCOUNTER → 2018-05-11 | Outpatient (CLI) | payer MEDICARE ==
--- NOTE | 2018-05-11 14:25 | Diagnostic Imaging Report ---
Indication: Dysphagia. A study was performed in conjunction with speech pathology. Video fluoroscopy was performed during swallowing of barium at multiple consistencies. Patient was given thin liquid, applesauce and banana consistency as well as ground meat and cracker consistency. Oral phase grossly unremarkable. There is normal epiglottic tilt and laryngeal elevation. No penetration or aspiration was observed. There is mild follicular residue noted with multiple consistencies. Overall fluoroscopic time is 1 minute 17 seconds. Impression: Unremarkable video swallow apart from mild vallecular residue. No penetration or aspiration was observed. Dictated by: Dictated on workstation # [id number]
== END ==
LOC: RAD 09:54
PROVIDERS: ATTEND Nurse Practitioner Family
DX: R13.12 Dysphagia, oropharyngeal phase (principal)
CPT/HCPCS: 74230

== ENCOUNTER 2018-05-19 11:57 | Emergency (ER) | payer MEDICARE ==
[~2018-05-19] VITALS: Ht 162.6 cm; Wt 63.5 kg
--- NOTE | 2018-05-19 13:22 | ED Lower Extremity ---
General Stated Complaint: HIP AND LEG SWELLING/PAIN Source: patient Exam Limitations: no limitations History of Present Illness Date Seen by Provider: May 19, 2018 Time Seen by Provider: 13:20 Initial Comments To ER from local alf with reports of swelling and a lump to the left leg. She has hip replacement on the left in March. She is on warfarin. Concern for DVT. Onset: last week Severity: moderate Pain/Injury Location: left leg Method of Injury: unknown Allergies and Home Medications Allergies Coded Allergies: Sulfa (Sulfonamide Antibiotics) (Verified Allergy, Unknown, 05/19/18) No Allergy Information Available (Unverified , 04/18/18) Home Medications Alprazolam 0.25 Mg Tablet, 0.25 MG PO TID PRN for ANXIETY, (Reported) Amlodipine Besylate 10 Mg Tablet, 10 MG PO DAILY, (Reported) Buspirone HCl 10 Mg Tablet, 10 MG PO TID, (Reported) Cyanocobalamin 1,000 Mcg/Ml Inj, 1,000 MCG IJ MONTHLY, (Reported) Diltiazem HCl 360 Mg Cap.er.24h, 360 MG PO DAILY, (Reported) Docusate Sodium 100 Mg Tablet, 100 MG PO PRN PRN for CONSTIPATION, (Reported) Escitalopram Oxalate 5 Mg Tablet, 5 MG PO HS, (Reported) Furosemide 40 Mg Tablet, 40 MG PO DAILY, (Reported) Hydrocodone/Acetaminophen 1 Each Tablet, 1-2 EACH PO Q6H PRN for PAIN-MILD, ( Reported) Isosorbide Mononitrate 30 Mg Tab.er.24h, 30 MG PO DAILY, (Reported) Meclizine HCl 25 Mg Tab.chew, 25 MG PO BID PRN for DIZZINESS, (Reported) Metoprolol Tartrate 25 Mg Tablet, 12.5 MG PO BID, (Reported) Omeprazole 20 Mg Capsule.dr, 20 MG PO BID, (Reported) Ondansetron HCl 4 Mg Tablet, 4 MG PO QID PRN for NAUSEA/VOMITING-1ST LINE, ( Reported) Potassium Chloride 10 Meq Tablet.er, 20 MEQ PO TID, (Reported) Warfarin Sodium 2.5 Mg Tablet, 2.5 MG PO DAILY Prescribed by: KAYE VENCES on 05/15/17 0920 Patient Home Medication List Home Medication List Reviewed: Yes Review of Systems Constitutional: see HPI EENTM: see HPI Respiratory: no symptoms reported Cardiovascular: no symptoms reported Genitourinary: no symptoms reported Musculoskeletal: see HPI Skin: no symptoms reported Psychiatric/Neurological: No Symptoms Reported Past Biteybo-Gzbyuy-Xvwjxa Hx Patient Social History Recent Hopitalizations: Yes Immunizations Up To Date Date of Pneumonia Vaccine: Nov 17, 2014 Date of Influenza Vaccine: Nov 28, 2016 Past Medical History Surgeries: Yes Abdominal, Appendectomy, Cardiac, Hysterectomy, Joint Replacement, Orthopedic Respiratory: Yes (PULMONARY HTN) Sleep Apnea Cardiac: Yes Atrial Fibrillation, Chronic Edema/Swelling, Coronary Artery Disease, Hypertension, Irregular Heartbeat, Valvular Heart Disease Neurological: No Reproductive Disorders: No 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, 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 Genitourinary: Yes Kidney Infection Gastrointestinal: Yes (ZENKER'S DIVERTICULUM REPAIR) Gastroesophageal Reflux, Polyps Musculoskeletal: Yes (RIGHT ANKLE FX; RIGHT KNEE REPLACEMENT) Arthritis, Fractures Endocrine: No HEENT: No Cancer: No Psychosocial: Yes Anxiety Integumentary: No Blood Disorders: No Family Medical History Cardiovascular disease 19 MOTHER Neoplasm G8 BROTHER (BRAIN TUMORS X2) Physical Exam Vital Signs Vital Signs - First Documented 05/19/18 13:05 Temp 98.2 Pulse 59 Resp 16 B/P (MAP) 111/59 (76) O2 Delivery Room Air Capillary Refill : Height, Weight, BMI Height: 5'4.00" Weight: 180lbs. 0.0oz. 81.341621fv; 24.6 BMI Method:Estimated General Appearance: WD/WN, no apparent distress HEENT: PERRL/EOMI, normal ENT inspection Neck: non-tender, full range of motion Respiratory: no respiratory distress, no accessory muscle use Hips: bilateral hip non-tender, bilateral hip normal inspection, bilateral hip normal range of motion Legs: left leg swelling, left leg other (the right leg swelling is trace. The left leg swelling is +1. The palpable lump that they are feeling is at the medial aspect of the distal thigh which is the dependent portion from her sitting in a wheelchair where the edema has pooled and caused the tissues to be more taut.) Knees: bilateral knee non-tender, bilateral knee normal inspection, bilateral knee normal range of motion Ankles: bilateral ankle non-tender, bilateral ankle normal inspection, bilateral ankle normal range of motion Neurologic/Psychiatric: alert, normal mood/affect, oriented x 3 Skin: normal color, warm/dry Progress/Results/Core Measures Results/Orders Lab Results Laboratory Tests Test 05/19/18 13:37 Range/Units White Blood Count 10.0 4.3-11.0 10^3/uL Red Blood Count 3.67 L 4.35-5.85 10^6/uL Hemoglobin 9.1 L 11.5-16.0 G/DL Hematocrit 30 L 35-52 % Mean Corpuscular Volume 82 80-99 FL Mean Corpuscular Hemoglobin 25 25-34 PG Mean Corpuscular Hemoglobin Concent 30 L 32-36 G/DL Red Cell Distribution Width 17.8 H 10.0-14.5 % Platelet Count 381 130-400 10^3/uL Mean Platelet Volume 10.8 H 7.4-10.4 FL Neutrophils (%) (Auto) 68 42-75 % Lymphocytes (%) (Auto) 12 12-44 % Monocytes (%) (Auto) 18 H 0-12 % Eosinophils (%) (Auto) 1 0-10 % Basophils (%) (Auto) 1 0-10 % Neutrophils # (Auto) 6.8 1.8-7.8 X 10^3 Lymphocytes # (Auto) 1.2 1.0-4.0 X 10^3 Monocytes # (Auto) 1.8 H 0.0-1.0 X 10^3 Eosinophils # (Auto) 0.1 0.0-0.3 10^3/uL Basophils # (Auto) 0.1 0.0-0.1 10^3/uL Prothrombin Time 17.2 H 12.2-14.7 SEC INR Comment 1.3 0.8-1.4 Sodium Level 138 135-145 MMOL/L Potassium Level 3.5 L 3.6-5.0 MMOL/L Chloride Level 101 98-107 MMOL/L Carbon Dioxide Level 26 21-32 MMOL/L Anion Gap 11 5-14 MMOL/L Blood Urea Nitrogen 14 7-18 MG/DL Creatinine 1.06 0.60-1.30 MG/DL Estimat Glomerular Filtration Rate 49 BUN/Creatinine Ratio 13 Glucose Level 97 70-105 MG/DL Calcium Level 9.6 8.5-10.1 MG/DL Corrected Calcium 9.6 8.5-10.1 MG/DL Total Bilirubin 0.5 0.1-1.0 MG/DL Aspartate Amino Transf (AST/SGOT) 20 5-34 U/L Alanine Aminotransferase (ALT/SGPT) 13 0-55 U/L Alkaline Phosphatase 267 H 40-136 U/L Total Protein 7.2 6.4-8.2 GM/DL Albumin 4.0 3.2-4.5 GM/DL My Orders Orders - EDITH AUGUSTINE APRN Cbc With Automated Diff (05/19/18 13:19) Protime With Inr (05/19/18 13:19) Comprehensive Metabolic Panel (05/19/18 13:19) Manual Differential (05/19/18 13:37) Vital Signs/I&O 05/19/18 13:05 Temp 98.2 Pulse 59 Resp 16 B/P (MAP) 111/59 (76) O2 Delivery Room Air Departure Communication (Admissions) 1415-ultrasound is unavailable this weekend. This will have to wait until Monday. Will continue her anticoagulation in the meantime. Have her take an extra dose of Coumadin and repeat INR on Monday. Impression Primary Impression: Lymphedema of left leg Additional Impression: Postoperative edema Disposition: HOME, SELF-CARE Condition: Stable Departure-Patient Inst. Decision time for Depature: 13:22 Referrals: JAMEE DAIGLE MD (PCP/Family) Primary Care Physician Patient Instructions: Dependent Edema (DC) Add. Discharge Instructions: 1. Wear thigh-high compression stockings 2. Follow-up with Dr. Daigle next week 3. Taken a dose of Coumadin tonight. Repeat INR on Monday and follow-up with Dr. DAIGLE on Monday for ultrasound of the left leg. Copy Copies To 1: JAMEE DAIGLE MD, PETER J APRN May 19, 2018 13:22
[2018-05-19] MEDS ORDERED: AMLO10TA7 PO (13:37)
--- NOTE | 2018-05-19 13:38 | NUR ---
BLOOD FOR LABS DRAWN BY LAB.
[2018-05-19 13:57] LABS: BASOPHILS # (AUTO) 0.1 10^3/uL (0.0-0.1); BASOPHILS % (AUTO) 1 % (0-10); EOSINOPHILS # (AUTO) 0.1 10^3/uL (0.0-0.3); EOSINOPHILS % (AUTO) 1 % (0-10); HEMATOCRIT 30 % (35-52); HEMOGLOBIN 9.1 G/DL (11.5-16.0); LYMPHOCYTES # (AUTO) 1.2 X 10^3 (1.0-4.0); LYMPHOCYTES % (AUTO) 12 % (12-44); MEAN CORPUSCULAR HEMOGLOBIN 25 PG (25-34); MEAN CORPUSCULAR HGB CONC 30 G/DL (32-36); MEAN CORPUSCULAR VOLUME 82 FL (80-99); MEAN PLATELET VOLUME 10.8 FL (7.4-10.4); MONOCYTES # (AUTO) 1.8 X 10^3 (0.0-1.0); MONOCYTES % (AUTO) 18 % (0-12); NEUTROPHILS # (AUTO) 6.8 X 10^3 (1.8-7.8); NEUTROPHILS % (AUTO) 68 % (42-75); PLATELET COUNT 381 10^3/uL (130-400); RED CELL DISTRIBUTION WIDTH 17.8 % (10.0-14.5)
[2018-05-19 14:09] LABS: INR 1.3 (0.8-1.4); PROTHROMBIN TIME PATIENT 17.2 SEC (12.2-14.7)
[2018-05-19 14:15] LABS: BILIRUBIN,TOTAL 0.5 MG/DL (0.1-1.0); CALCIUM 9.6 MG/DL (8.5-10.1); CREATININE SERUM 1.06 MG/DL (0.60-1.30); POTASSIUM 3.5 MMOL/L (3.6-5.0); TOTAL PROTEIN 7.2 GM/DL (6.4-8.2)
[2018-05-19 14:40] VITALS: BP 111/59
[2018-05-19 15:23] LABS: EOSINOPHILS % (MANUAL) 3 %; LYMPHOCYTES % (MANUAL) 27 %; MONOCYTES % (MANUAL) 4 %; NEUTROPHILS % (MANUAL) 66 %
[2018-05-19 15:24] LABS: SMUDGE CELLS SLIGHT
== END 2018-05-19 14:43 | disposition home or self-care (01) ==
LOC: EDUNIT# 11:57 → ER 11:59
DX: R60.0 Localized edema (principal); T81.89XA Other complications of procedures, not elsewhere classified, initial encounter; G47.30 Sleep apnea, unspecified; I48.91 Unspecified atrial fibrillation; I25.10 Atherosclerotic heart disease of native coronary artery without angina pectoris; I10 Essential (primary) hypertension; F41.9 Anxiety disorder, unspecified; K21.9 Gastro-esophageal reflux disease without esophagitis; Z96.651 Presence of right artificial knee joint; Z86.010 Personal history of colon polyps; Z82.49 Family history of ischemic heart disease and other diseases of the circulatory system; Z87.448 Personal history of other diseases of urinary system; Z90.710 Acquired absence of both cervix and uterus; Z98.890 Other specified postprocedural states; Z90.49 Acquired absence of other specified parts of digestive tract; Z88.2 Allergy status to sulfonamides; Z79.01 Long term (current) use of anticoagulants
CPT/HCPCS: 36415; 80053; 85007; 85027; 85610; 99281

== ENCOUNTER → 2018-05-22 | Outpatient (CLI) | payer MEDICARE ==
[~2018-05-22] MED LIST changes: +AMLO10TA7 PO
--- NOTE | 2018-05-22 15:04 | Diagnostic Imaging Report ---
PROCEDURE: US left lower extremity venous. TECHNIQUE: Multiple real-time grayscale images were obtained over the left lower extremity in various projections. Additional duplex Doppler and color Doppler images were also obtained. INDICATION: Recent hip surgery, complaining of left leg swelling. There is no evidence of left lower extremity DVT. Left lower extremity deep venous system demonstrates normal compressibility with normal response to augmentation and Valsalva. No fluid collection or mass is seen. IMPRESSION: No evidence of left lower extremity DVT. Dictated by: Dictated on workstation # [id number]
== END ==
LOC: RAD 13:02
PROVIDERS: ATTEND Nurse Practitioner Family
DX: R60.0 Localized edema (principal); Z98.890 Other specified postprocedural states

== ENCOUNTER → 2018-06-28 | Outpatient (CLI) | payer MEDICARE ==
--- NOTE | 2018-06-28 14:56 | Diagnostic Imaging Report ---
INDICATION: Dyspnea COMPARISON: 04/18/2018 FINDINGS: Frontal and lateral views of the chest demonstrate mild cardiomegaly. Pulmonary vasculature is within normal limits. The lungs are hyperinflated, but are otherwise clear. There are no signs of infiltrate, pleural effusions or pneumothoraces. The visualized osseous structures show no acute abnormalities. IMPRESSION: 1. Mild cardiomegaly, but no evidence of failure or focal infiltrate. 2. Background COPD changes. Dictated by: Dictated on workstation # [id number]
== END ==
LOC: RAD 14:34
PROVIDERS: ATTEND Physician Assistant
DX: J44.9 Chronic obstructive pulmonary disease, unspecified (principal); I51.7 Cardiomegaly; I35.1 Nonrheumatic aortic (valve) insufficiency; I48.91 Unspecified atrial fibrillation; I25.10 Atherosclerotic heart disease of native coronary artery without angina pectoris
CPT/HCPCS: 71046

== ENCOUNTER → 2018-07-12 | Outpatient (CLI) | payer MEDICARE | LOC: CARD 11:44 | PROVIDERS: ATTEND Physician Assistant | DX: I35.1 Nonrheumatic aortic (valve) insufficiency (principal); I48.2 Chronic atrial fibrillation; I25.10 Atherosclerotic heart disease of native coronary artery without angina pectoris; R06.02 Shortness of breath; I08.3 Combined rheumatic disorders of mitral, aortic and tricuspid valves | CPT/HCPCS: 93306 ==

== ENCOUNTER → 2018-09-04 | Outpatient (CLI) | payer MEDICARE ==
[2018-09-04 18:04] LABS: PROTHROMBIN TIME PATIENT 13.2 SEC (12.2-14.7)
== END ==
LOC: LABNPT 17:50
PROVIDERS: ATTEND Internal Medicine Cardiovascular Disease
DX: I48.91 Unspecified atrial fibrillation (principal)
CPT/HCPCS: 85610

== ENCOUNTER → 2018-10-30 | Outpatient (CLI) | payer MEDICARE ==
--- NOTE | 2018-10-30 10:43 | Diagnostic Imaging Report ---
INDICATION: Postmenopausal screening for osteoporosis and previous left hip fracture. COMPARISON: None FINDINGS: AP Spine L1-L4: [BMD (g/cm2): 0.775] [T-Score: -.35] [Z-Score: -1.6] [BMD Previous: 0.916] [BMD % Change: -15.4] LT Hip Neck: [BMD (g/cm2): na] [T-Score: na] [Z-Score: na] LT Hip Total: [BMD (g/cm2):na] [T-Score:na] [Z-Score: na] [BMD Previous: na] [BMD % Change: na] RT Hip Neck: [BMD (g/cm2):0.604] [T-Score:-3.1] [Z-Score:-0.7] RT Hip Total: [BMD (g/cm2):0.535] [T-score:-3.7] [Z-Score:-1.4] [BMD Previous:0.731] [BMD % Change:-26.8] *Indicates significant change from prior examination based on 95% confidence level. World Health Organization criteria for BMD interpretation classify patients as Normal (T-score at or above -1.0), Osteopenic (T-score between -1.0 and -2.5) or Osteoporotic (T-score at or below -2.5). LIMITATIONS AND MODIFICATION: None. FRACTURE RISK (FRAX SCORE): The ten year probability of (%): Major Osteoporotic Fracture: [34.3] Hip Fracture: [13.4] IMPRESSION: 1. Osteoporosis. 2. Baseline examination. 3. See below National Osteoporosis Foundation guidelines on when to potentially initiate pharmacologic therapy. Based on the National Osteoporosis Foundation Guidelines, pharmacologic treatment should be initiated in any of the following, unless clinical conditions suggest otherwise: * Any patient with prior fragility fracture of the hip or vertebrae. A spine fracture indicates 5X risk for subsequent spine fracture and 2X risk for subsequent hip fracture. * Osteoporosis (T-score <-2.5). * Postmenopausal women and men age 50 and older with low bone mass/osteopenia (T-score between -1.0 and -2.5) by DXA and 10-year major osteoporotic fracture greater than 20% or a 10-year probability of hip fracture greater than 3%. These fracture risks are supplied above in the FRAX score, if applicable. * Clinician judgement and/or patient preferences may indicate treatment for people with 10-year fracture probabilities above or below these levels. Dictated by: Dictated on workstation # [id number]
== END ==
LOC: RAD 09:53
PROVIDERS: ATTEND Internal Medicine
DX: Z13.820 Encounter for screening for osteoporosis (principal); M81.0 Age-related osteoporosis without current pathological fracture; Z78.0 Asymptomatic menopausal state; Z87.81 Personal history of (healed) traumatic fracture
CPT/HCPCS: 77080

== ENCOUNTER → 2018-11-02 | Outpatient (CLI) | payer MEDICARE ==
--- NOTE | 2018-11-02 14:27 | Diagnostic Imaging Report ---
INDICATION: Back pain for 2 weeks and chest pain. Time of exam 10:30 a.m. FINDINGS: Three views of the thoracic spine were obtained. There is left convexity lower thoracic scoliotic curvature. There is hyperkyphotic curvature. Vertebral body heights appear to be fairly well maintained. No acute compression fracture is seen. There is compression deformity at approximately T12 or L1. This appears to have been present since exam from June 2018. No other compression deformities are seen. There is multilevel degenerative disc disease with disc space narrowing and marginal spurring. The paraspinous line is intact. IMPRESSION: Thoracic scoliosis and spondylosis. There is a chronic compression deformity at approximately T12 or L1. No other significant abnormality is seen. Dictated by: Dictated on workstation # [id number]
--- NOTE | 2018-11-02 14:28 | Diagnostic Imaging Report ---
INDICATION: Chest pain and back pain. Time of exam 10:16 a.m. FINDINGS: Three views of the left ribs were obtained. No displaced rib fracture is identified. No definite parenchymal contusion, effusion or pneumothorax is seen. IMPRESSION: No displaced rib fractures detected. Dictated by: Dictated on workstation # [id number]
== END ==
LOC: RAD 09:44
PROVIDERS: ATTEND Internal Medicine
DX: M47.814 Spondylosis without myelopathy or radiculopathy, thoracic region (principal); M41.84 Other forms of scoliosis, thoracic region; M81.0 Age-related osteoporosis without current pathological fracture; R07.89 Other chest pain; W57.XXXA Bitten or stung by nonvenomous insect and other nonvenomous arthropods, initial encounter
CPT/HCPCS: 71100; 72072

== ENCOUNTER → 2018-12-03 | Outpatient (CLI) | payer MEDICARE ==
--- NOTE | 2018-12-03 11:10 | Diagnostic Imaging Report ---
MRI THORACIC SPINE W/O CON Technique: Unenhanced MRI imaging of the thoracic spine was performed. Indication: Back pain. Prior fall. Comparison: Thoracic spine radiographs of 11/02/2018. Findings: Exaggerated kyphosis of the thoracic spine is unchanged. There is a chronic superior endplate compression fracture of L1 which has approximately 30-40% height loss in its anterior aspect. Slight increased signal intensity within the T3 and T4 vertebral bodies on fat suppression imaging is favored to be due to an complete/suboptimal fat suppression rather than fracture as there is no significant hilar loss and no fracture lines are seen on T1-weighted imaging. No spondylolisthesis. Thoracic cord is normal in size and signal. No spinal stenosis or neural foraminal narrowing within the thoracic spine. Conus terminates at appropriate level. No pleural effusion. Impression: 1. No acute fracture within the thoracic spine. Old compression fracture of L1. 2. Increased signal within the T4 and T5 vertebral bodies on T2 fat-suppressed imaging is felt to be due to suboptimal fat suppression rather than bone marrow edema. Additionally, there is no significant height loss and no fracture lines on T1-weighted imaging. Therefore, this is highly likely artifactual in nature rather than bone marrow edema from nondepressed fractures. 3. Normal thoracic cord. Dictated by: Dictated on workstation # [id number]
== END ==
LOC: RAD 08:53
PROVIDERS: ATTEND Internal Medicine
DX: S22.009S Unspecified fracture of unspecified thoracic vertebra, sequela (principal)
CPT/HCPCS: 72146

== ENCOUNTER 2019-05-21 17:46 | Emergency (ER) | payer MEDICARE ==
[~2019-05-21] VITALS: Ht 160 cm; Wt 65.0 kg
[~2019-05-21 17:46] MED LIST changes: +ONDA-105 PO; -ONDA4TAB10 PO
[2019-05-21] MEDS ORDERED: NS IV 1000 ML 1,000 ML IV ONE (17:51)
[2019-05-21] MEDS ORDERED: ONDANSETRON 4 MG/2 ML (SDV) Z0FRAN IVP ONE (18:00)
--- NOTE | 2019-05-21 18:06 | ED GI ---
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, NOTED DURING EXAM) History of Present Illness Date Seen by Provider: May 21, 2019 Time Seen by Provider: 17:48 Initial Comments PT ARRIVES VIA EMS FROM HOME C/O RECTAL BLEEDING SINCE YESTERDAY STATES IT WAS BRIGHT RED BLOOD, AND NOW IS BLACK--HAD ONE STOOL THIS AM, AND JUST PRIOR TO ARRIVAL WAS "JUST A LITTLE SMEAR" C/O LOWER ABDOMINAL CRAMPING C/O MILD NAUSEA, NO VOMITING HAS HAD DECREASED APPETITE TODAY, BUT DRANK PEPSI, ATE BANANA BREAD AND PART OF MEAL FROM [employer] ON WHEELS NO PROBLEMS URINATING AND HAS BEEN VOIDING A NORMAL AMOUNT NO FEVER NO CHEST PAIN C/O MILD SHORTNESS OF BREATH, WHICH IS CHRONIC AND NO DIFFERENT THAN NORMAL. STATES SHE ALSO HAS ANXIETY, BUT DID NOT TAKE HER ANXIETY MEDICATION TODAY PT IS ON ELIQUIS FOR CHRONIC ATRIAL FIBRILLATION. STATES SHE DID TAKE IT THIS MORNING, BUT NOT HER EVENING DOSE PT HAS HTN, AND REPORTS SHE DID TAKE HER BP MEDICATION TODAY NO EXCESSIVE BLEEDING OR BRUISING FROM OTHER SITES PCP: DR. MUÑOZ Allergies and Home Medications Allergies Coded Allergies: Sulfa (Sulfonamide Antibiotics) (Verified Allergy, Unknown, 05/19/18) No Allergy Information Available (Unverified , 04/18/18) Home Medications Alprazolam 0.25 Mg Tablet, 0.25 MG PO TID PRN for ANXIETY, (Reported) Amlodipine Besylate 10 Mg Tablet, 10 MG PO DAILY, (Reported) Buspirone HCl 10 Mg Tablet, 10 MG PO TID, (Reported) Cyanocobalamin 1,000 Mcg/Ml Inj, 1,000 MCG IJ MONTHLY, (Reported) Diltiazem HCl 360 Mg Cap.er.24h, 360 MG PO DAILY, (Reported) Docusate Sodium 100 Mg Tablet, 100 MG PO PRN PRN for CONSTIPATION, (Reported) Escitalopram Oxalate 5 Mg Tablet, 5 MG PO HS, (Reported) Furosemide 40 Mg Tablet, 40 MG PO DAILY, (Reported) Hydrocodone/Acetaminophen 1 Each Tablet, 1-2 EACH PO Q6H PRN for PAIN-MILD, (Reported) Isosorbide Mononitrate 30 Mg Tab.er.24h, 30 MG PO DAILY, (Reported) Meclizine HCl 25 Mg Tab.chew, 25 MG PO BID PRN for DIZZINESS, (Reported) Metoprolol Tartrate 25 Mg Tablet, 12.5 MG PO BID, (Reported) Omeprazole 20 Mg Capsule.dr, 20 MG PO BID, (Reported) Ondansetron HCl 4 Mg Tablet, 4 MG PO QID PRN for NAUSEA/VOMITING-1ST LINE, (Reported) Potassium Chloride 10 Meq Tablet.er, 20 MEQ PO TID, (Reported) Warfarin Sodium 2.5 Mg Tablet, 2.5 MG PO DAILY Prescribed by: KAYE VENCES on 05/15/17 0979 Patient Home Medication List Home Medication List Reviewed: Yes Review of Systems Review of Systems Constitutional: no symptoms reported; No dizziness EENTM: No Symptoms Reported Respiratory: See HPI, Shortness of Air Cardiovascular: See HPI; Denies Chest Pain, Denies Lightheadedness Gastrointestinal: See HPI, Abdominal Pain, Nausea, Poor Appetite, Rectal Bleeding; Denies Vomiting Genitourinary: No Symptoms Reported Musculoskeletal: no symptoms reported Skin: no symptoms reported Psychiatric/Neurological: No Symptoms Reported Endocrine: No Symptoms Reported Hematologic/Lymphatic: See HPI Past Chnosyu-Cwluqh-Tmpydb Hx Past Med/Social Hx: Reviewed and Corrections made Patient Social History Alcohol Use: Denies Use Recreational Drug Use: No Smoking Status: Never a Smoker 2nd Hand Smoke Exposure: No Recent Hopitalizations: Yes (MAR 2018 FOR HIP FRACTURE) Immunizations Up To Date PED Vaccines UTD: Yes Date of Pneumonia Vaccine: Nov 17, 2014 Date of Influenza Vaccine: Nov 28, 2017 Past Medical History Surgeries: Yes (SEE BELOW) Abdominal, Appendectomy, Cardiac, Hysterectomy, Joint Replacement, Orthopedic Respiratory: Yes (PULMONARY HTN) Sleep Apnea Cardiac: Yes Atrial Fibrillation, Chronic Edema/Swelling, Coronary Artery Disease, High Cholesterol, Hypertension, Irregular Heartbeat, Valvular Heart Disease Neurological: Yes (SHORT TERM MEMORY ISSUES NOTED ON EXAM 05/21/19) 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, 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 Genitourinary: Yes Kidney Infection Gastrointestinal: Yes (ZENKER'S DIVERTICULUM REPAIR) Gastroesophageal Reflux, Polyps Musculoskeletal: Yes (RIGHT ANKLE FX; RIGHT KNEE REPLACEMENT, LEFT HIP FRACTURE) Arthritis, Fractures Endocrine: No HEENT: No Cancer: No Psychosocial: Yes Anxiety Integumentary: No Blood Disorders: No Family Medical History Cardiovascular disease 19 MOTHER Neoplasm G8 BROTHER (BRAIN TUMORS X2) PSH: -ZENKER'S DIVERTICULUM REPAIR -RIGHT KNEE REPLACEMENT -RIGHT ANKLE FX/ORIF -LEFT HIP FX/ORIF -APPENDECTOMY -HYSTERECTOMY--OVARIES INTACT -SURGERY FOR BOWEL OBSTRUCTION -EGD'S/COLONOSCOPIES -CARDIAC CATH--NO INTERVENTION Physical Exam Vital Signs Vital Signs - First Documented 05/21/19 17:56 Temp 36.6 Pulse 71 Resp 20 B/P (MAP) 189/82 (117) O2 Delivery Room Air Capillary Refill : Less Than 3 Seconds Height/Weight/BMI Height: 5'4.00" Weight: 140lbs. 0.0oz. 63.865500aq; 25.00 BMI Method:Stated General Appearance: WD/WN, no apparent distress, other (VERY PLEASANT, SMILING. DOES NOT APPEAR TO BE IN ANY DISCOMFORT OR DISTRESS. ) HEENT: other (ORAL MUCOSA MOIST) Neck: normal inspection Respiratory: normal breath sounds, no respiratory distress, no accessory muscle use Cardiovascular: systolic murmur (FAINT), irregularly irregular Gastrointestinal: normal bowel sounds, soft, no organomegaly, no pulsatile mass, tenderness (MILD SUPRAPUBIC TENDERNESS), hernia (VENTRAL AND RIGHT LOWER ABDOMEN) Rectal: normal rectal tone, other (NO STOOL IN VAULT. MILD HEMORRHOIDS WITHOUT ACTIVE BLEEDING. ) Extremities: normal range of motion, non-tender, normal capillary refill, pedal edema (1+ EDEMA RIGHT ANKLE, TRACE EDEMA ON LEFT. 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, no motor/sensory deficits, alert, normal mood/affect, oriented x 3 (BUT POOR SHORT TERM MEMORY) Skin: normal color, warm/dry; No ecchymosis, No pallor Progress/Results/Core Measures Results/Orders Lab Results Laboratory Tests Test 05/21/19 18:09 05/21/19 18:10 Range/Units Urine Color YELLOW Urine Clarity CLEAR Urine pH 6.5 5-9 Urine Specific T[place]te <=1.005 1.016-1.022 Urine Protein NEGATIVE NEGATIVE Urine Glucose (UA) NEGATIVE NEGATIVE Urine Ketones NEGATIVE NEGATIVE Urine Nitrite NEGATIVE NEGATIVE Urine Bilirubin NEGATIVE NEGATIVE Urine Urobilinogen 0.2 < = 1.0 MG/DL Urine Leukocyte Esterase NEGATIVE NEGATIVE Urine RBC (Auto) TRACE-L NEGATIVE Urine RBC 2-5 H /HPF Urine WBC NONE /HPF Urine Crystals NONE /LPF Urine Bacteria TRACE /HPF Urine Casts NONE /LPF Urine Mucus NEGATIVE /LPF Urine Culture Indicated NO White Blood Count 8.1 4.3-11.0 10^3/uL Red Blood Count 4.47 4.35-5.85 10^6/uL Hemoglobin 13.7 11.5-16.0 G/DL Hematocrit 42 35-52 % Mean Corpuscular Volume 93 80-99 FL Mean Corpuscular Hemoglobin 31 25-34 PG Mean Corpuscular Hemoglobin Concent 33 32-36 G/DL Red Cell Distribution Width 15.1 H 10.0-14.5 % Platelet Count 272 130-400 10^3/uL Mean Platelet Volume 11.1 H 7.4-10.4 FL Neutrophils (%) (Auto) 60 42-75 % Lymphocytes (%) (Auto) 24 12-44 % Monocytes (%) (Auto) 14 H 0-12 % Eosinophils (%) (Auto) 2 0-10 % Basophils (%) (Auto) 1 0-10 % Neutrophils # (Auto) 4.9 1.8-7.8 X 10^3 Lymphocytes # (Auto) 1.9 1.0-4.0 X 10^3 Monocytes # (Auto) 1.1 H 0.0-1.0 X 10^3 Eosinophils # (Auto) 0.2 0.0-0.3 10^3/uL Basophils # (Auto) 0.0 0.0-0.1 10^3/uL Prothrombin Time 13.9 12.2-14.7 SEC INR Comment 1.0 0.8-1.4 Activated Partial Thromboplast Time 29 24-35 SEC Sodium Level 139 135-145 MMOL/L Potassium Level 4.1 3.6-5.0 MMOL/L Chloride Level 102 98-107 MMOL/L Carbon Dioxide Level 26 21-32 MMOL/L Anion Gap 11 5-14 MMOL/L Blood Urea Nitrogen 17 7-18 MG/DL Creatinine 1.12 0.60-1.30 MG/DL Estimat Glomerular Filtration Rate 46 BUN/Creatinine Ratio 15 Glucose Level 92 70-105 MG/DL Calcium Level 9.9 8.5-10.1 MG/DL Corrected Calcium 9.8 8.5-10.1 MG/DL Magnesium Level 2.1 1.6-2.4 MG/DL Total Bilirubin 0.4 0.1-1.0 MG/DL Aspartate Amino Transf (AST/SGOT) 32 5-34 U/L Alanine Aminotransferase (ALT/SGPT) 33 0-55 U/L Alkaline Phosphatase 145 H 40-136 U/L Total Protein 6.9 6.4-8.2 GM/DL Albumin 4.1 3.2-4.5 GM/DL Amylase Level 113 25-125 U/L Lipase 59 8-78 U/L My Orders Orders - MITCH ABEBE DO Ed Iv/Invasive Line Start (05/21/19 17:51) Monitor-Rhythm Ecg Trace Only (05/21/19 17:51) Straight Cath For Spec.-Adult (05/21/19 17:51) Amylase (05/21/19 17:51) Cbc With Automated Diff (05/21/19 17:51) Comprehensive Metabolic Panel (05/21/19 17:51) Lipase (05/21/19 17:51) Magnesium (05/21/19 17:51) Protime With Inr (05/21/19 17:51) Partial Thromboplastin Time (05/21/19 17:51) Ua Culture If Indicated (05/21/19 17:51) Ed Iv/Invasive Line Start (05/21/19 17:51) Ns Iv 1000 Ml (Sodium Chloride 0.9%) (05/21/19 17:51) Catheter(Urinary) Insert & Ass 03,15 (05/21/19 17:58) Ondansetron Injection (Zofran Injectio (05/21/19 18:00) Ct Abdomen/Pelvis Wo (05/21/19 17:58) Chest 1 View, Ap/Pa Only (05/21/19 18:25) Medications Given in ED Current Medications Medications Dose Ordered Sig/Leatha Route Start Time Stop Time Status Last Admin Dose Admin Ondansetron HCl 4 mg ONCE ONCE IVP 05/21/19 18:00 05/21/19 18:01 DC 05/21/19 18:21 4 MG Sodium Chloride 1,000 ml @ 0 mls/hr Q0M ONCE IV 05/21/19 17:51 05/21/19 17:52 DC 05/21/19 18:21 1,000 MLS/HR Vital Signs/I&O 05/21/19 17:56 Temp 36.6 Pulse 71 Resp 20 B/P (MAP) 189/82 (117) O2 Delivery Room Air Progress Progress Note : Progress Note NO COMPLAINTS OF PAIN AND NO BM OR BLEEDING DURING ER STAY NO COMPLAINTS OF ANY KIND VITALS REMAINED STABLE--NO TACHYCARDIA OR HYPOTENSION, NO FEVER Diagnostic Imaging Comments CT ABDOMEN/PELVIS--PER RADIOLOGIST REPORT AT 1934 IMPRESSION: Midline ventral hernia as well as right inguinal hernia containing portions of the large bowel. No definite strangulation or bowel obstruction is seen. No other significant abnormality is detected. 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 WILL HOLD ELIQUIS, SEND HOME AND HE WILL SEE IN OFFICE TOMORROW Impression Primary Impression: Rectal bleeding Additional Impressions: ELIQUIS THERAPY HTN (hypertension) Chronic atrial fibrillation Disposition: HOME, SELF-CARE Condition: Stable Departure-Patient Inst. Referrals: HAM ROSE WILLIAM J DO (PCP/Family) Primary Care Physician Patient Instructions: Bloody Stools, Adult (DC), Gastrointestinal Bleeding (DC), High Blood Pressure (DC) Add. Discharge Instructions: HOLD ELIQUIS CONTINUE ALL OF YOUR REGULAR MEDICATIONS LOTS OF CLEAR LIQUIDS FOLLOW UP WITH DR. ROSE TOMORROW FOR FURTHER CARE RETURN TO ER IF SYMPTOMS WORSEN All discharge instructions reviewed with patient and/or family. Voiced understanding. MITCH ABEBE DO May 21, 2019 18:06
[2019-05-21 18:15] LABS: BILIRUBIN,URINE NEGATIVE (NEGATIVE); CLARITY,URINE CLEAR; COLOR,URINE YELLOW; GLUCOSE, URINE (UA) NEGATIVE (NEGATIVE); KETONES,URINE NEGATIVE (NEGATIVE); LEUKOCYTE ESTERASE ,URINE NEGATIVE (NEGATIVE); NITRITE,URINE NEGATIVE (NEGATIVE); PH,URINE 6.5 (5-9); PROTEIN,URINE NEGATIVE (NEGATIVE)
[2019-05-21 18:23] LABS: BASOPHILS % (AUTO) 1 % (0-10); EOSINOPHILS # (AUTO) 0.2 10^3/uL (0.0-0.3); EOSINOPHILS % (AUTO) 2 % (0-10); HEMATOCRIT 42 % (35-52); HEMOGLOBIN 13.7 G/DL (11.5-16.0); LYMPHOCYTES # (AUTO) 1.9 X 10^3 (1.0-4.0); LYMPHOCYTES % (AUTO) 24 % (12-44); MEAN CORPUSCULAR HEMOGLOBIN 31 PG (25-34); MEAN CORPUSCULAR HGB CONC 33 G/DL (32-36); MEAN CORPUSCULAR VOLUME 93 FL (80-99); MEAN PLATELET VOLUME 11.1 FL (7.4-10.4); MONOCYTES # (AUTO) 1.1 X 10^3 (0.0-1.0); MONOCYTES % (AUTO) 14 % (0-12); NEUTROPHILS # (AUTO) 4.9 X 10^3 (1.8-7.8); NEUTROPHILS % (AUTO) 60 % (42-75); PLATELET COUNT 272 10^3/uL (130-400); RED CELL DISTRIBUTION WIDTH 15.1 % (10.0-14.5); WHITE BLOOD COUNT 8.1 10^3/uL (4.3-11.0)
[2019-05-21 18:39] LABS: BACTERIA,URINE TRACE /HPF
[2019-05-21 18:44] LABS: ALBUMIN 4.1 GM/DL (3.2-4.5); BILIRUBIN,TOTAL 0.4 MG/DL (0.1-1.0); CALCIUM 9.9 MG/DL (8.5-10.1); CREATININE SERUM 1.12 MG/DL (0.60-1.30); MAGNESIUM 2.1 MG/DL (1.6-2.4); POTASSIUM 4.1 MMOL/L (3.6-5.0); TOTAL PROTEIN 6.9 GM/DL (6.4-8.2)
[2019-05-21 18:45] LABS: PROTHROMBIN TIME PATIENT 13.9 SEC (12.2-14.7)
--- NOTE | 2019-05-21 19:20 | Diagnostic Imaging Report ---
PROCEDURE: CT abdomen and pelvis without contrast. TECHNIQUE: Multiple contiguous axial images were obtained through the abdomen and pelvis without the use of intravenous contrast. Auto Exposure Controls were utilized during the CT exam to meet ALARA standards for radiation dose reduction. INDICATION: Rectal bleeding and pain. COMPARISON: Correlation is made with prior CT from 02/02/2016. FINDINGS: The lung bases are clear. The heart is enlarged. No discrete liver mass is detected. Gallbladder is unremarkable. No biliary ductal dilatation is seen. The pancreas is unremarkable. The spleen appears to be surgically absent. No adrenal mass is detected. Kidneys demonstrate cortical low densities on the right suggestive of cysts. No calculi or hydronephrosis is seen. Aorta is non-aneurysmal. Midline ventral hernia, previously described, does contain a portion of the transverse colon. No wall thickening or evidence of strangulation is seen. Intra-abdominal bowel loops are normal caliber and without evidence of obstruction. There is also a hernia in the right lower quadrant inguinal region containing a portion of the right colon. Again, no definite strangulation or obstruction is seen. There is no free fluid or fluid collection identified. The bladder is decompressed. There is diverticulosis of the left colon and sigmoid. A chronic compression fracture deformity involving L1 vertebral body appears stable. IMPRESSION: Midline ventral hernia as well as right inguinal hernia containing portions of the large bowel. No definite strangulation or bowel obstruction is seen. No other significant abnormality is detected. Dictated by: Dictated on workstation # [id number]
--- NOTE | 2019-05-21 19:31 | Diagnostic Imaging Report ---
INDICATION: Rectal bleeding. Time of exam: 6:40 PM Comparison is made with prior chest from 06/28/2018. The heart is enlarged but stable. The lungs are clear. No infiltrate or failure is seen. There is no effusion or pneumothorax. IMPRESSION: No acute cardiopulmonary process is detected. Dictated by: Dictated on workstation # [id number]
[2019-05-21 20:35] VITALS: BP 183/73
== END 2019-05-21 20:35 | disposition home or self-care (01) ==
LOC: EDUNIT# 17:46 → ER 17:47
DX: K62.5 Hemorrhage of anus and rectum (principal); F41.9 Anxiety disorder, unspecified; I48.20 Chronic atrial fibrillation, unspecified; I10 Essential (primary) hypertension; I27.20 Pulmonary hypertension, unspecified; Z90.710 Acquired absence of both cervix and uterus; Z90.49 Acquired absence of other specified parts of digestive tract; G47.30 Sleep apnea, unspecified; I25.10 Atherosclerotic heart disease of native coronary artery without angina pectoris; E78.00 Pure hypercholesterolemia, unspecified; K21.9 Gastro-esophageal reflux disease without esophagitis; M19.91 Primary osteoarthritis, unspecified site
CPT/HCPCS: 36415; 51702; 71045; 74176; 80053; 81000; 82150; 83690; 83735; 85025; 85610; 85730; 93041

== ENCOUNTER → 2019-09-26 | Outpatient (CLI) | payer MEDICARE, OTHER ==
[~2019-09-26] MED LIST changes: -WARF2.5T PO; +WRF2.5T PO
--- NOTE | 2019-09-26 15:01 | Diagnostic Imaging Report ---
PROCEDURE: CT abdomen and pelvis without contrast. TECHNIQUE: Multiple contiguous axial images were obtained through the abdomen and pelvis without the use of intravenous contrast. Auto Exposure Controls were utilized during the CT exam to meet ALARA standards for radiation dose reduction. INDICATION: Epigastric pain, right lower quadrant pain. FINDINGS: The previous CT abdomen/pelvis exam of 05/21/2019 did note a midline ventral hernia as well as herniation of the large bowel into the right inguinal canal. On this exam, those findings are again evident and do not appear to have changed significantly. The prior study also suggested a small portion of the transverse colon extending through the ventral hernia defect into the subcutaneous fat. That finding is again evident and no different as well. There is no sign of obstruction of the colon. The appendix is not particularly well visualized, but there are no indirect signs of acute appendicitis. There is gas and fluid in both the large and small bowel in a nonspecific fashion. There is no evidence for bowel obstruction. There is diverticulosis of the sigmoid colon, but there is no sign of acute diverticulitis. There is no pelvic mass or free fluid collection evident. The bladder is not well distended and consequently difficult to assess. There is a tiny droplet of gas within the bladder. This is nonspecific. The uterus is surgically absent. The liver, kidneys, adrenals, pancreas, aorta and inferior vena cava show no sign of an acute abnormality. There is no evidence of cholelithiasis. The gallbladder does seem more distended than noted on the prior exam. The air-fluid level and the surgical clips along the posterior aspect of the gastric fundus noted on the prior study are again evident and no different. The lung bases are clear. The heart is enlarged but stable when compared to the prior study. There is no obvious breast mass. The bone windows fail to show any evidence for an acute bony injury. The long-standing compression deformity of L1 noted previously is again evident. The orthopedic hardware securing the intertrochanteric fracture of the left femur seen previously is again evident and no different. IMPRESSION: 1. As on the prior exam, there is a portion of the right colon extending into the inguinal canal. There is also a defect in the anterior abdominal wall with a small portion of transverse colon protruding into the subcutaneous fat. These findings are similar to the prior exam. There is still no evidence for obstruction of the colon. 2. There is no acute abnormality of the abdomen or pelvis noted otherwise. Dictated by: Dictated on workstation # [id number]
== END ==
LOC: RAD 12:15
PROVIDERS: ATTEND Internal Medicine
DX: R10.13 Epigastric pain (principal); K43.9 Ventral hernia without obstruction or gangrene; R60.0 Localized edema; I10 Essential (primary) hypertension; I27.20 Pulmonary hypertension, unspecified
CPT/HCPCS: 74176

== ENCOUNTER → 2019-10-10 | Outpatient (CLI) | payer MEDICARE ==
--- NOTE | 2019-10-10 12:56 | Diagnostic Imaging Report ---
PROCEDURE: US Gallbladder. TECHNIQUE: Multiple real-time grayscale images were obtained over the right upper quadrant in various projections. INDICATION: Abdominal pain. FINDINGS: Liver measures 13 cm in size. No discrete liver mass is identified. The portal vein is patent and shows normal direction of flow. Gallbladder is without stones or sludge. No wall thickening or biliary ductal dilatation is identified. The pancreas was obscured by bowel gas. Aorta appears nonaneurysmal. Distal aorta was not well-visualized, however. IVC is patent. Right kidney was not well visualized due to bowel gas. There is no ascites. IMPRESSION: Somewhat limited study due to overlying bowel gas. There is no evidence of cholelithiasis or acute cholecystitis. Dictated by: Dictated on workstation # [id number]
== END ==
LOC: RAD 08:06
PROVIDERS: ATTEND Internal Medicine
DX: R10.13 Epigastric pain (principal)
CPT/HCPCS: 76705

== ENCOUNTER → 2019-10-21 | Outpatient (CLI) | payer MEDICARE ==
--- NOTE | 2019-10-21 11:39 | Diagnostic Imaging Report ---
INDICATION: Coronary artery disease. TIME OF EXAM: 11:38 AM Correlation is made with prior chest from 05/21/2019. The heart is enlarged but stable. There is ectasia and tortuosity of the descending thoracic aorta. The lungs are clear. No infiltrates are detected. The pulmonary vascularity is unremarkable. No effusion or pneumothorax is detected. IMPRESSION: No acute cardiopulmonary process is detected. Dictated by: Dictated on workstation # [id number]
== END ==
LOC: CARD 11:30
PROVIDERS: ATTEND Internal Medicine Cardiovascular Disease
DX: I25.10 Atherosclerotic heart disease of native coronary artery without angina pectoris (principal); I08.2 Rheumatic disorders of both aortic and tricuspid valves; I11.9 Hypertensive heart disease without heart failure
CPT/HCPCS: 71046; 93306

== ENCOUNTER 2020-01-13 13:32 | Emergency (ER) | payer MEDICARE ==
[~2020-01-13] VITALS: Ht 152 cm; Wt 72.0 kg
[~2020-01-13 13:32] MED LIST changes: -CATHETER FLUSH 10 ML SYR IV PRN; -HOLD METFORMIN - RECEIVED CONTRAST 20 ML VIAL IV SCH; -IOHEXOL 350 MG/ML 100 ML (OMNIPAQUE 350) VIAL IV ONE; -NS 100 ML (IVPB) BAG IV ONE; -RT-ALBUTEROL SULF 2.5 MG/3 ML PRE-MIX VIAL INH ONE
[2020-01-13] MEDS ORDERED: FAMOTIDINE 20MG/2ML IV (PEPCID) IV STA (13:39)
--- NOTE | 2020-01-13 13:39 | ED Chest Pain ---
General Stated Complaint: CHEST PAINS History of Present Illness Date Seen by Provider: Jan 13, 2020 Time Seen by Provider: 13:39 Initial Comments 84-year-old female presents with chest pain. Chest pain is substernal. It is been going on for at least a couple days if not mildly for at least a week. Patient reports that he got worse today. She has some mild radiation into her shoulder. Patient reports she saw her manager freelance about a week ago and was told her "heart was good" patient is extremely anxious partially from the chest pain and partially from being at the ER. She has some mild nausea, no vomiting and no diaphoresis, no cough, shortness of breath, fevers or chills. Allergies and Home Medications Allergies Coded Allergies: Sulfa (Sulfonamide Antibiotics) (Verified Allergy, Unknown, 05/19/18) No Allergy Information Available (Unverified , 04/18/18) Home Medications Alprazolam 0.25 Mg Tablet, 0.25 MG PO TID PRN for ANXIETY, (Reported) Amlodipine Besylate 10 Mg Tablet, 10 MG PO DAILY, (Reported) Buspirone HCl 10 Mg Tablet, 10 MG PO TID, (Reported) Cyanocobalamin 1,000 Mcg/Ml Inj, 1,000 MCG IJ MONTHLY, (Reported) Diltiazem HCl 360 Mg Cap.er.24h, 360 MG PO DAILY, (Reported) Docusate Sodium 100 Mg Tablet, 100 MG PO PRN PRN for CONSTIPATION, (Reported) Escitalopram Oxalate 5 Mg Tablet, 5 MG PO HS, (Reported) Furosemide 40 Mg Tablet, 40 MG PO DAILY, (Reported) Hydrocodone/Acetaminophen 1 Each Tablet, 1-2 EACH PO Q6H PRN for PAIN-MILD, (Reported) Isosorbide Mononitrate 30 Mg Tab.er.24h, 30 MG PO DAILY, (Reported) Meclizine HCl 25 Mg Tab.chew, 25 MG PO BID PRN for DIZZINESS, (Reported) Metoprolol Tartrate 25 Mg Tablet, 12.5 MG PO BID, (Reported) Omeprazole 20 Mg Capsule.dr, 20 MG PO BID, (Reported) Ondansetron HCl 4 Mg Tablet, 4 MG PO QID PRN for NAUSEA/VOMITING-1ST LINE, (Reported) Potassium Chloride 10 Meq Tablet.er, 20 MEQ PO TID, (Reported) Warfarin Sodium 2.5 Mg Tablet, 2.5 MG PO DAILY Prescribed by: KAYE VENCES on 05/15/17 1949 Patient Home Medication List Home Medication List Reviewed: Yes Review of Systems Review of Systems Constitutional: No chills, No fever Respiratory: Denies Cough Cardiovascular: Chest Pain; Denies Lightheadedness, Denies Palpitations Gastrointestinal: Denies Abdominal Pain, Denies Constipated, Denies Diarrhea; Nausea; Denies Vomiting Musculoskeletal: no symptoms reported Skin: no symptoms reported Psychiatric/Neurological: No Symptoms Reported Endocrine: No Symptoms Reported Hematologic/Lymphatic: No Symptoms Reported Past Fhfepug-Acgxhc-Blreav Hx Past Med/Social Hx: Reviewed Nursing Past Med/Soc Hx Patient Social History 2nd Hand Smoke Exposure: No Recent Hopitalizations: Yes (MAR 2018 FOR HIP FRACTURE) Immunizations Up To Date PED Vaccines UTD: Yes Date of Pneumonia Vaccine: Nov 17, 2014 Date of Influenza Vaccine: Nov 28, 2017 Past Medical History Surgeries: Yes (SEE BELOW) Abdominal, Appendectomy, Cardiac, Hysterectomy, Joint Replacement, Orthopedic Respiratory: Yes (PULMONARY HTN) Sleep Apnea Cardiac: Yes Atrial Fibrillation, Chronic Edema/Swelling, Coronary Artery Disease, High Cholesterol, Hypertension, Irregular Heartbeat, Valvular Heart Disease Neurological: Yes (SHORT TERM MEMORY ISSUES NOTED ON EXAM 05/21/19) Reproductive Disorders: No 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, 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 Genitourinary: Yes Kidney Infection Gastrointestinal: Yes (ZENKER'S DIVERTICULUM REPAIR) Gastroesophageal Reflux, Polyps Musculoskeletal: Yes (RIGHT ANKLE FX; RIGHT KNEE REPLACEMENT, LEFT HIP FRACTURE) Arthritis, Fractures Endocrine: No HEENT: No Cancer: No Psychosocial: Yes Anxiety Integumentary: No Blood Disorders: No Family Medical History Cardiovascular disease 19 MOTHER Neoplasm G8 BROTHER (BRAIN TUMORS X2) PSH: -ZENKER'S DIVERTICULUM REPAIR -RIGHT KNEE REPLACEMENT -RIGHT ANKLE FX/ORIF -LEFT HIP FX/ORIF -APPENDECTOMY -HYSTERECTOMY--OVARIES INTACT -SURGERY FOR BOWEL OBSTRUCTION -EGD'S/COLONOSCOPIES -CARDIAC CATH--NO INTERVENTION Physical Exam Vital Signs Vital Signs - First Documented 01/13/20 13:35 Temp 36.0 Pulse 64 Resp 24 B/P (MAP) 202/72 (115) Pulse Ox 100 O2 Delivery Nasal Cannula O2 Flow Rate 2.0 Capillary Refill : Height, Weight, BMI Height: 5'4.00" Weight: 140lbs. 0.0oz. 63.255494nv; 25.00 BMI Method:Stated General Appearance: Anxious, Mild Distress Neck: Non Tender, Supple Respiratory: Lungs Clear, Normal Breath Sounds Cardiovascular: Regular Rate, Rhythm, No Edema Gastrointestinal: Non Tender, Soft Extremity: Normal Capillary Refill, Normal Inspection Neurologic/Psychiatric: Alert, Oriented x3, Normal Mood/Affect, mobility specialist II-XII Norm as Tested Skin: Normal Color, Warm/Dry Progress/Results/Core Measures Results/Orders Lab Results Laboratory Tests Test 01/13/20 13:47 01/13/20 14:12 Range/Units White Blood Count 9.6 4.3-11.0 10^3/uL Red Blood Count 4.17 3.80-5.11 10^6/uL Hemoglobin 13.0 11.5-16.0 g/dL Hematocrit 40 35-52 % Mean Corpuscular Volume 97 80-99 fL Mean Corpuscular Hemoglobin 31 25-34 pg Mean Corpuscular Hemoglobin Concent 32 32-36 g/dL Red Cell Distribution Width 13.2 10.0-14.5 % Platelet Count 222 130-400 10^3/uL Mean Platelet Volume 11.0 9.0-12.2 fL Immature Granulocyte % (Auto) 0 % Neutrophils (%) (Auto) 67 42-75 % Lymphocytes (%) (Auto) 21 12-44 % Monocytes (%) (Auto) 10 0-12 % Eosinophils (%) (Auto) 2 0-10 % Basophils (%) (Auto) 1 0-10 % Neutrophils # (Auto) 6.5 1.8-7.8 10^3/uL Lymphocytes # (Auto) 2.0 1.0-4.0 10^3/uL Monocytes # (Auto) 1.0 0.0-1.0 10^3/uL Eosinophils # (Auto) 0.1 0.0-0.3 10^3/uL Basophils # (Auto) 0.1 0.0-0.1 10^3/uL Immature Granulocyte # (Auto) 0.0 0.0-0.1 10^3/uL Prothrombin Time 15.2 H 12.2-14.7 SEC INR Comment 1.2 0.8-1.4 Activated Partial Thromboplast Time 32 24-35 SEC Sodium Level 141 135-145 MMOL/L Potassium Level 4.3 3.6-5.0 MMOL/L Chloride Level 102 98-107 MMOL/L Carbon Dioxide Level 25 21-32 MMOL/L Anion Gap 14 5-14 MMOL/L Blood Urea Nitrogen 16 7-18 MG/DL Creatinine 1.08 0.60-1.30 MG/DL Estimat Glomerular Filtration Rate 48 BUN/Creatinine Ratio 15 Glucose Level 91 70-105 MG/DL Calcium Level 9.8 8.5-10.1 MG/DL Corrected Calcium 9.7 8.5-10.1 MG/DL Magnesium Level 2.3 1.6-2.4 MG/DL Total Bilirubin 1.1 H 0.1-1.0 MG/DL Aspartate Amino Transf (AST/SGOT) 27 5-34 U/L Alanine Aminotransferase (ALT/SGPT) 20 0-55 U/L Alkaline Phosphatase 140 H 40-136 U/L Myoglobin 78.0 10.0-92.0 NG/ML Troponin I < 0.028 <0.028 NG/ML Total Protein 7.3 6.4-8.2 GM/DL Albumin 4.1 3.2-4.5 GM/DL Lipase 28 8-78 U/L Coronavirus 2019 ([facility]) Negative Negative My Orders Orders - WYNN,DONALDO L DO Cbc With Automated Diff (01/13/20 13:39) Magnesium (01/13/20 13:39) Chest 1 View, Ap/Pa Only (01/13/20 13:39) Ekg Tracing (01/13/20 13:39) Comprehensive Metabolic Panel (01/13/20 13:39) Myoglobin Serum (01/13/20 13:39) Protime With Inr (01/13/20 13:39) Partial Thromboplastin Time (01/13/20 13:39) Monitor-Rhythm Ecg Trace Only (01/13/20 13:39) Lipid Panel (01/14/20 06:00) Ed Iv/Invasive Line Start (01/13/20 13:39) Lipase (01/13/20 13:39) Troponin I (01/13/20 13:39) Aspirin Chewable Tablet (Baby Aspirin Ch (01/13/20 13:45) Ondansetron Injection (Zofran Injectio (01/13/20 13:45) Famotidine Injection (Pepcid Injection) (01/13/20 13:39) Fentanyl Injection (Sublimaze Injection (01/13/20 13:44) Covid 19 Inhouse Test (01/13/20 13:49) Alprazolam Tablet (Xanax Tablet) (01/13/20 14:30) Medications Given in ED Current Medications Medications Dose Ordered Sig/Leatha Route Start Time Stop Time Status Last Admin Dose Admin Alprazolam 0.25 mg ONCE ONCE PO 01/13/20 14:30 01/13/20 14:31 DC 01/13/20 14:33 0.25 MG Aspirin 324 mg ONCE ONCE PO 01/13/20 13:45 01/13/20 13:46 DC 01/13/20 13:51 324 MG Ondansetron HCl 4 mg ONCE ONCE IVP 01/13/20 13:45 01/13/20 13:46 DC 01/13/20 13:51 4 MG Vital Signs/I&O 01/13/20 01/13/20 13:35 13:35 Temp 36.0 Pulse 64 Resp 24 B/P (MAP) 202/72 (115) Pulse Ox 100 O2 Delivery Nasal Cannula Nasal Cannula O2 Flow Rate 2.0 2.00 Progress Progress Note : Time: 14:38 Progress Note Patient with epigastric pain and improved with Pepcid and Zofran. Patient's power of health care attorney called and reports that she gets this way whenever she gets a new caregiver. Patient just received a new caregiver recently. Patient is also status post take a Xanax every day at noon when she missed today's dose. Patient with negative EKG, negative troponin, and no other abnormalities found on her workup. Patient stable will be discharged home. I did recommend she start Pepcid daily. Patient should follow-up with her primary care provider as needed. Initial ECG Impression Date: Jan 13, 2020 Initial ECG Impression Time: 13:37 Initial ECG Rate: 64 Initial ECG Rhythm: A Fib/Flutter Initial ECG Impression: Atrial Fibrillation Comment Atrial fib, RBBB, HR 64, no acute changes Diagnostic Imaging Diagonstic Imaging: Xray Plain Films/CT/US/NM/MRI: chest Comments [facility] [place], [place] NAME: MAX HOOD [facility] REC#: [id number] PT STATUS: REG ER : 1935 PHYSICIAN: DONALDO WYNN DO ADMIT DATE: 01/13/20/ER Draft Date of Exam:01/13/20 CHEST 1 VIEW, AP/PA ONLY INDICATION: Shortness of breath and chest pain. TECHNIQUE: Frontal chest obtained at 02:19 p.m. and compared to 10/21/2019. FINDINGS: There is cardiomegaly and mild central vascular congestion, unchanged compared to the prior study. There are chronic-appearing increased interstitial markings. There is no acute consolidation or pleural fluid. IMPRESSION: Cardiomegaly and mild central vascular prominence with unchanged chronic interstitial prominence. No acute consolidation or pleural fluid. Dictated on workstation # [id number] Dict: 01/13/20 1427 Trans: 01/13/20 1451 [id number] Interpreted by: GWENDOLYN QUICK MD Departure Impression Primary Impression: Chest pain Qualified Codes: R07.89 - Other chest pain Additional Impression: Epigastric abdominal pain Disposition: 01 HOME, SELF-CARE Condition: Stable Departure-Patient Inst. Referrals: SEE MUÑOZ DO (PCP/Family) Primary Care Physician Patient Instructions: Dyspepsia, Chest Pain That Is Not Caused by the Heart (DC) Add. Discharge Instructions: I would recommend she start Pepcid twice daily as directed on package Follow-up with her primary care provider in 2-3 days for continuation of care and recheck in today symptoms DONALDO WYNN DO Jan 13, 2020 13:39
[2020-01-13] MEDS ORDERED: fentaNYL INJECTION 100 MCG/2 ML AMP IVP STA (13:44)
[2020-01-13] MEDS ORDERED: ONDANSETRON 4 MG/2 ML (SDV) Z0FRAN IVP ONE (13:45)
[2020-01-13] MEDS ORDERED: ASPIRIN 81 MG CHEW (CHILDREN'S ASA) PO ONE (13:45)
[2020-01-13 13:55] LABS: BASOPHILS # (AUTO) 0.1 10^3/uL (0.0-0.1); BASOPHILS % (AUTO) 1 % (0-10); EOSINOPHILS # (AUTO) 0.1 10^3/uL (0.0-0.3); EOSINOPHILS % (AUTO) 2 % (0-10); HEMATOCRIT 40 % (35-52); LYMPHOCYTES % (AUTO) 21 % (12-44); MEAN CORPUSCULAR HEMOGLOBIN 31 pg (25-34); MEAN CORPUSCULAR HGB CONC 32 g/dL (32-36); MEAN CORPUSCULAR VOLUME 97 fL (80-99); MONOCYTES % (AUTO) 10 % (0-12); NEUTROPHILS # (AUTO) 6.5 10^3/uL (1.8-7.8); NEUTROPHILS % (AUTO) 67 % (42-75); PLATELET COUNT 222 10^3/uL (130-400); WHITE BLOOD COUNT 9.6 10^3/uL (4.3-11.0)
[2020-01-13 14:08] LABS: ALBUMIN 4.1 GM/DL (3.2-4.5); POTASSIUM 4.3 MMOL/L (3.6-5.0)
[2020-01-13 14:10] LABS: CALCIUM 9.8 MG/DL (8.5-10.1)
[2020-01-13 14:11] LABS: INR 1.2 (0.8-1.4); PROTHROMBIN TIME PATIENT 15.2 SEC (12.2-14.7); TOTAL PROTEIN 7.3 GM/DL (6.4-8.2)
[2020-01-13 14:13] LABS: BILIRUBIN,TOTAL 1.1 MG/DL (0.1-1.0)
[2020-01-13 14:15] LABS: CREATININE SERUM 1.08 MG/DL (0.60-1.30)
[2020-01-13 14:17] LABS: MAGNESIUM 2.3 MG/DL (1.6-2.4)
--- NOTE | 2020-01-13 14:19 | NUR ---
SPOKE WITH DEVAN LOPEZ, HER POA, AND LET HER KNOW HOW SHE WAS AND THAT IT WOULD BE A WHILE BEFORE SHE IS D/C'D. DEVAN LOPEZ HAS AN APPOINTMENT IN [facility] BUT WILL CALL BACK AFTER TO PICK HER UP.
[2020-01-13] MEDS ORDERED: ALPRAZolam 0.25 MG (XANAX) TAB PO ONE (14:30)
[2020-01-13 14:49] VITALS: BP 159/83
--- NOTE | 2020-01-13 14:51 | Diagnostic Imaging Report ---
INDICATION: Shortness of breath and chest pain. TECHNIQUE: Frontal chest obtained at 02:19 p.m. and compared to 10/21/2019. FINDINGS: There is cardiomegaly and mild central vascular congestion, unchanged compared to the prior study. There are chronic-appearing increased interstitial markings. There is no acute consolidation or pleural fluid. IMPRESSION: Cardiomegaly and mild central vascular prominence with unchanged chronic interstitial prominence. No acute consolidation or pleural fluid. Dictated by: Dictated on workstation # [id number]
== END 2020-01-13 14:49 | disposition home or self-care (01) ==
LOC: EDUNIT# 13:32 → ER 13:35
DX: R07.9 Chest pain, unspecified (principal); R10.13 Epigastric pain; F41.9 Anxiety disorder, unspecified; K21.9 Gastro-esophageal reflux disease without esophagitis; I25.10 Atherosclerotic heart disease of native coronary artery without angina pectoris; I10 Essential (primary) hypertension; Z20.828 Contact with and (suspected) exposure to other viral communicable diseases; Z82.49 Family history of ischemic heart disease and other diseases of the circulatory system; Z80.8 Family history of malignant neoplasm of other organs or systems; Z88.2 Allergy status to sulfonamides; Z79.01 Long term (current) use of anticoagulants
CPT/HCPCS: 71045; 80053; 83690; 83735; 83874; 84484; 85025; 85610; 85730; 93041; 99284; U0002; 36415; 87635

== ENCOUNTER → 2020-01-13 | Outpatient (CLI) | payer MEDICARE ==
[~2020-01-13] MED LIST changes: +AMLO-251 PO; -AMLO10TA7 PO; +CATHETER FLUSH 10 ML SYR IV PRN; +HOLD METFORMIN - RECEIVED CONTRAST 20 ML VIAL IV SCH; +IOHEXOL 350 MG/ML 100 ML (OMNIPAQUE 350) VIAL IV ONE; +NS 100 ML (IVPB) BAG IV ONE; +RT-ALBUTEROL SULF 2.5 MG/3 ML PRE-MIX VIAL INH ONE; -WARF1TAB82 PO; +WARF4TAB3 PO; -WARF4TAB70 PO; +WRF1T PO
[2020-01-13 12:36] LABS: CREATININE SERUM 1.09 MG/DL (0.60-1.30)
--- NOTE | 2020-01-13 13:38 | NUR ---
Patient was ordered for complete PFT with bronchodilator. Flower was brought up to room in wheelchair and was very SOB with increased WOB. Patient complained of pain in chest and left shoulder before test began but stated she frequently had pain there and pain was not out of ordinary nor worse at that time. Began PFT and patient complained of chest pain increasing slightly and WOB was hard. Performed 2 spirometry tests and 1 DLCO. Did not perform lung volumes. Began administering Albuterol as ordered and patient breathed it approximately 1 minute when she complained of severe chest pain. Nebulizer and test stopped and patient was taken downstairs. Patient declined at first to go to ED but changed her mind and patient was taken to ED for evaluation.
== END ==
LOC: RT 13:00
PROVIDERS: ATTEND Nurse Practitioner Family
DX: I27.0 Primary pulmonary hypertension (principal); J98.4 Other disorders of lung
CPT/HCPCS: 36415; 82565; 84520; 94060; 94729

== ENCOUNTER 2020-07-06 08:43 | Emergency (ER) | payer MEDICARE ==
[~2020-07-06] VITALS: Ht 157 cm; Wt 61.3 kg
[~2020-07-06 08:43] MED LIST changes: -ESCI5TAB12 PO; +ESCI5TAB16 PO; -ISOS30TA3 PO; +ISOS30TA82 PO; -LISI10TA2 PO; +LISI10TA25 PO
[2020-07-06] MEDS ORDERED: ONDANSETRON 4 MG/2 ML (SDV) Z0FRAN IVP ONE (09:00)
[2020-07-06 09:30] LABS: BASOPHILS # (AUTO) 0.1 10^3/uL (0.0-0.1); BASOPHILS % (AUTO) 1 % (0-10); EOSINOPHILS # (AUTO) 0.1 10^3/uL (0.0-0.3); EOSINOPHILS % (AUTO) 2 % (0-10); HEMATOCRIT 40 % (35-52); HEMOGLOBIN 13.1 g/dL (11.5-16.0); LYMPHOCYTES # (AUTO) 1.6 10^3/uL (1.0-4.0); LYMPHOCYTES % (AUTO) 23 % (12-44); MEAN CORPUSCULAR HEMOGLOBIN 31 pg (25-34); MEAN CORPUSCULAR HGB CONC 33 g/dL (32-36); MEAN CORPUSCULAR VOLUME 96 fL (80-99); MEAN PLATELET VOLUME 12.5 fL (9.0-12.2); MONOCYTES # (AUTO) 1.2 10^3/uL (0.0-1.0); MONOCYTES % (AUTO) 16 % (0-12); NEUTROPHILS # (AUTO) 4.1 10^3/uL (1.8-7.8); NEUTROPHILS % (AUTO) 58 % (42-75); PLATELET COUNT 199 10^3/uL (130-400); WHITE BLOOD COUNT 7.1 10^3/uL (4.3-11.0)
[2020-07-06 09:39] LABS: ALBUMIN 3.7 GM/DL (3.2-4.5)
[2020-07-06 09:40] LABS: CHLORIDE 103 MMOL/L (98-107); POTASSIUM 4.1 MMOL/L (3.6-5.0); SODIUM 139 MMOL/L (135-145)
[2020-07-06 09:41] LABS: CALCIUM 9.6 MG/DL (8.5-10.1)
[2020-07-06 09:42] LABS: GLUCOSE 96 MG/DL (70-105); TOTAL PROTEIN 6.6 GM/DL (6.4-8.2)
[2020-07-06 09:43] LABS: CARBON DIOXIDE 25 MMOL/L (21-32)
[2020-07-06 09:44] LABS: BILIRUBIN,TOTAL 0.8 MG/DL (0.1-1.0)
[2020-07-06 09:45] LABS: ALKALINE PHOSPHATASE 139 U/L (40-136)
[2020-07-06 09:46] LABS: CREATININE SERUM 1.14 MG/DL (0.60-1.30); GFR ESTIMATED 45
[2020-07-06 09:47] LABS: BUN/CREATININE RATIO 12
[2020-07-06 09:48] LABS: ALANINE AMINOTRANSFERASE 13 U/L (0-55)
[2020-07-06 09:49] LABS: CREATINE KINASE 40 U/L (29-168)
[2020-07-06 09:57] LABS: CREATINE KINASE MB 0.9 NG/ML (<6.6)
--- NOTE | 2020-07-06 10:41 | Diagnostic Imaging Report ---
INDICATION: Chest pain and dyspnea. TECHNIQUE: AP view of the chest is obtained with comparison made to study of 01/13/2020. FINDINGS: There is mild cardiomegaly. Air trapping is seen in both lungs. There is no evidence of pneumothorax or new infiltrate. No significant pleural fluid is seen. IMPRESSION: Mild cardiomegaly and probable background emphysema. No definite acute abnormality is appreciated. Dictated by: Dictated on workstation # [id number]
--- NOTE | 2020-07-06 10:47 | ED General ---
General Chief Complaint: Chest Pain Stated Complaint: CP,SOB Nursing Triage Note: PT PRESENTS TO ED VIA EMS FROM HOME WITH COMPLAINTS OF CP AND SOA X 12 HOURS. Nursing Sepsis Screen: Possible Sepsis Risk Source of Information: Patient Exam Limitations: No Limitations History of Present Illness Date Seen by Provider: July 06, 2020 Time Seen by Provider: 08:50 Initial Comments Patient is a an 84-year-old female who presents to the emergency department today with a chief complaint of feeling weak unable to stand dizzy and generally not well. She had some shortness of breath associated with this. Onset of symptoms when she woke up. She was unable to really get out of bed. She describes some vague chest discomfort with her shortness of breath. Nothing that radiated, no associated nausea no associated sweating. She is a patient of Dr. Pavon. She denies any recent illnesses such as fevers, chills. EMS did report a temp of 100.5. She is Covid vaccinated. Patient's had no productive cough. No urinary tract symptoms. No diarrhea. All other review of systems reviewed and negative except as stated above. Timing/Duration: 1 Hour Allergies and Home Medications Allergies Coded Allergies: Sulfa (Sulfonamide Antibiotics) (Verified Allergy, Unknown, 05/19/18) No Allergy Information Available (Unverified , 04/18/18) Home Medications Alprazolam 0.25 Mg Tablet, 0.25 MG PO TID PRN for ANXIETY, (Reported) Amlodipine Besylate 10 Mg Tablet, 10 MG PO DAILY, (Reported) Buspirone HCl 10 Mg Tablet, 10 MG PO TID, (Reported) Cyanocobalamin 1,000 Mcg/Ml Inj, 1,000 MCG IJ MONTHLY, (Reported) Diltiazem HCl 360 Mg Cap.er.24h, 360 MG PO DAILY, (Reported) Docusate Sodium 100 Mg Tablet, 100 MG PO PRN PRN for CONSTIPATION, (Reported) Escitalopram Oxalate 5 Mg Tablet, 5 MG PO HS, (Reported) Furosemide 40 Mg Tablet, 40 MG PO DAILY, (Reported) Hydrocodone/Acetaminophen 1 Each Tablet, 1-2 EACH PO Q6H PRN for PAIN-MILD, (Reported) Isosorbide Mononitrate 30 Mg Tab.er.24h, 30 MG PO DAILY, (Reported) Meclizine HCl 25 Mg Tab.chew, 25 MG PO BID PRN for DIZZINESS, (Reported) Metoprolol Tartrate 25 Mg Tablet, 12.5 MG PO BID, (Reported) Omeprazole 20 Mg Capsule.dr, 20 MG PO BID, (Reported) Ondansetron HCl 4 Mg Tablet, 4 MG PO QID PRN for NAUSEA/VOMITING-1ST LINE, (Reported) Potassium Chloride 10 Meq Tablet.er, 20 MEQ PO TID, (Reported) Warfarin Sodium 2.5 Mg Tablet, 2.5 MG PO DAILY Prescribed by: KAYE ECHEVARRIA on 05/15/17 0994 Patient Home Medication List Home Medication List Reviewed: Yes Review of Systems Review of Systems Constitutional: see HPI EENTM: no symptoms reported Respiratory: short of breath Cardiovascular: chest pain Gastrointestinal: no symptoms reported Genitourinary: no symptoms reported Musculoskeletal: no symptoms reported Skin: no symptoms reported Psychiatric/Neurological: Weakness (Generalized weakness) All Other Systems Reviewed Negative Unless Noted: Yes Past Wgpvobm-Feyqyy-Ewtqwg Hx Patient Social History Alcohol Use: Denies Use Smoking Status: Never a Smoker 2nd Hand Smoke Exposure: No Recent Infectious Disease Expo: No Recent Hopitalizations: No (MAR 2018 FOR HIP FRACTURE) Immunizations Up To Date Tetanus Booster (TDap): Unknown PED Vaccines UTD: Yes Date of Pneumonia Vaccine: Nov 17, 2014 Date of Influenza Vaccine: Nov 29, 2019 Seasonal Allergies Seasonal Allergies: No Past Medical History Surgeries: Yes (SEE BELOW) Abdominal, Appendectomy, Cardiac, Hysterectomy, Joint Replacement, Orthopedic Respiratory: Yes (PULMONARY HTN) Sleep Apnea Cardiac: Yes Atrial Fibrillation, Chronic Edema/Swelling, Coronary Artery Disease, High Cholesterol, Hypertension, Irregular Heartbeat, Valvular Heart Disease Neurological: Yes (SHORT TERM MEMORY ISSUES NOTED ON EXAM 05/21/19) Reproductive Disorders: No 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 HAND History: Hysterectomy, Menopausal Genitourinary: Yes Kidney Infection Gastrointestinal: Yes (ZENKER'S DIVERTICULUM REPAIR) Gastroesophageal Reflux, Polyps Musculoskeletal: Yes (RIGHT ANKLE FX; RIGHT KNEE REPLACEMENT, LEFT HIP FRACTURE) Arthritis, Fractures Endocrine: No HEENT: No Cancer: No Psychosocial: Yes Anxiety Integumentary: No Blood Disorders: No Family Medical History Cardiovascular disease 19 MOTHER Neoplasm G8 BROTHER (BRAIN TUMORS X2) PSH: -ZENKER'S DIVERTICULUM REPAIR -RIGHT KNEE REPLACEMENT -RIGHT ANKLE FX/ORIF -LEFT HIP FX/ORIF -APPENDECTOMY -HYSTERECTOMY--OVARIES INTACT -SURGERY FOR BOWEL OBSTRUCTION -EGD'S/COLONOSCOPIES -CARDIAC CATH--NO INTERVENTION Physical Exam Vital Signs Vital Signs - First Documented Capillary Refill : Less Than 3 Seconds Height, Weight, BMI Height: 5'4.00" Weight: 140lbs. 0.0oz. 63.710721kp; 24.00 BMI Method:Stated General Appearance: WD/WN, Anxious, Chronically ill Eyes: Bilateral Eye Normal Inspection, Bilateral Eye PERRL HEENT: Normal ENT Inspection Neck: Normal Inspection Respiratory: Lungs Clear, Normal Breath Sounds, No Accessory Muscle Use, Other (Increased respiratory rate into the 30s on initial evaluation) Cardiovascular: Regular Rate, Rhythm, Bradycardia (Rates from 41-51) Gastrointestinal: Non Tender, Soft Extremity: Normal Capillary Refill, Normal Inspection, Normal Range of Motion, Non Tender, No Calf Tenderness Neurologic/Psychiatric: Alert, Oriented x3, No Motor/Sensory Deficits, Normal Mood/Affect Progress/Results/Core Measures Suspected Sepsis Recent Fever Within 48 Hours: Yes Infection Criteria Present: Suspected New Infection New/Unexplained Altered Menta: No Sepsis Screen: Possible Sepsis Risk SIRS Temperature: Pulse: 55 Respiratory Rate: 32 Laboratory Tests 07/06/20 08:59: White Blood Count 7.1 Blood Pressure 171 /79 Mean: 109 Laboratory Tests 07/06/20 08:59: Creatinine 1.14, Platelet Count 199, Total Bilirubin 0.8 Results/Orders Lab Results Laboratory Tests Test 07/06/20 08:57 07/06/20 08:59 07/06/20 11:06 Range/Units SARS-CoV-2 RNA (RT-PCR) Not Detected Not Detecte White Blood Count 7.1 4.3-11.0 10^3/uL Red Blood Count 4.18 3.80-5.11 10^6/uL Hemoglobin 13.1 11.5-16.0 g/dL Hematocrit 40 35-52 % Mean Corpuscular Volume 96 80-99 fL Mean Corpuscular Hemoglobin 31 25-34 pg Mean Corpuscular Hemoglobin Concent 33 32-36 g/dL Red Cell Distribution Width 13.1 10.0-14.5 % Platelet Count 199 130-400 10^3/uL Mean Platelet Volume 12.5 H 9.0-12.2 fL Immature Granulocyte % (Auto) 0 % Neutrophils (%) (Auto) 58 42-75 % Lymphocytes (%) (Auto) 23 12-44 % Monocytes (%) (Auto) 16 H 0-12 % Eosinophils (%) (Auto) 2 0-10 % Basophils (%) (Auto) 1 0-10 % Neutrophils # (Auto) 4.1 1.8-7.8 10^3/uL Lymphocytes # (Auto) 1.6 1.0-4.0 10^3/uL Monocytes # (Auto) 1.2 H 0.0-1.0 10^3/uL Eosinophils # (Auto) 0.1 0.0-0.3 10^3/uL Basophils # (Auto) 0.1 0.0-0.1 10^3/uL Immature Granulocyte # (Auto) 0.0 0.0-0.1 10^3/uL Sodium Level 139 135-145 MMOL/L Potassium Level 4.1 3.6-5.0 MMOL/L Chloride Level 103 98-107 MMOL/L Carbon Dioxide Level 25 21-32 MMOL/L Anion Gap 11 5-14 MMOL/L Blood Urea Nitrogen 14 7-18 MG/DL Creatinine 1.14 0.60-1.30 MG/DL Estimat Glomerular Filtration Rate 45 BUN/Creatinine Ratio 12 Glucose Level 96 70-105 MG/DL Calcium Level 9.6 8.5-10.1 MG/DL Corrected Calcium 9.8 8.5-10.1 MG/DL Total Bilirubin 0.8 0.1-1.0 MG/DL Aspartate Amino Transf (AST/SGOT) 20 5-34 U/L Alanine Aminotransferase (ALT/SGPT) 13 0-55 U/L Alkaline Phosphatase 139 H 40-136 U/L Total Creatine Kinase 40 29-168 U/L Creatine Kinase MB 0.9 <6.6 NG/ML Troponin I < 0.028 <0.028 NG/ML Total Protein 6.6 6.4-8.2 GM/DL Albumin 3.7 3.2-4.5 GM/DL Urine Color YELLOW Urine Clarity CLEAR Urine pH 6.0 5-9 Urine Specific [place] 1.015 L 1.016-1.022 Urine Protein NEGATIVE NEGATIVE Urine Glucose (UA) NEGATIVE NEGATIVE Urine Ketones NEGATIVE NEGATIVE Urine Nitrite NEGATIVE NEGATIVE Urine Bilirubin NEGATIVE NEGATIVE Urine Urobilinogen 0.2 < = 1.0 MG/DL Urine Leukocyte Esterase NEGATIVE NEGATIVE Urine RBC (Auto) TRACE-I NEGATIVE Urine RBC 2-5 H /HPF Urine WBC NONE /HPF Urine Squamous Epithelial Cells 5-10 /HPF Urine Crystals NONE /LPF Urine Bacteria NEGATIVE /HPF Urine Casts NONE /LPF Urine Mucus NEGATIVE /LPF Urine Culture Indicated NO My Orders Orders - ARIAN WELLS MD Covid 19 Inhouse Test (07/06/20 08:55) Ondansetron Injection (Zofran Injectio (07/06/20 09:00) Chest 1 View, Ap/Pa Only (07/06/20 09:12) Ekg Tracing (07/06/20 09:12) Cbc With Automated Diff (07/06/20 09:12) Comprehensive Metabolic Panel (07/06/20 09:12) Ua Culture If Indicated (07/06/20 09:12) Creatine Kinase (07/06/20 09:12) Creatine Kinase Mb (07/06/20 09:12) Troponin I (07/06/20 09:12) Medications Given in ED Current Medications Medications Dose Ordered Sig/Leatha Route Start Time Stop Time Status Last Admin Dose Admin Ondansetron HCl 8 mg ONCE ONCE IVP 07/06/20 09:00 07/06/20 09:01 DC 07/06/20 09:09 8 MG Vital Signs/I&O 07/06/20 07/06/20 09:00 09:00 Temp 36.6 Pulse 55 Resp 32 B/P (MAP) 171/79 (109) Pulse Ox 97 O2 Delivery Nasal Cannula Nasal Cannula O2 Flow Rate 2.00 2.0 Capillary Refill : Less Than 3 Seconds Blood Pressure Mean: 109 Progress Note : Time: 12:15 Progress Note Patient seen and evaluated, 84-year-old with a chief complaint of weakness, shortness of breath dizziness and chest discomfort. Evaluation today includes a physical exam, EKG, chest x-ray, basic laboratory studies. Labs have been reviewed and are all within normal limits. Her EKG shows a apparent sinus bradycardia possibly atrial fibrillation. Rates go as low as the low 40s. Of note the patient is chronically anticoagulated on Eliquis. She is also on metoprolol 25 mg twice daily. She is on isosorbide mononitrate as well. She initially looked somewhat distressed but after a while has improved is sitting up looking around the room and conversational with a caregiver at the bedside. She has no complaints that are persistent. I did discuss her medications with Dr. Echevarria; he is okay with discontinuing her metoprolol for her low heart rates. He will follow her up in clinic. Patient has no clinical or objective findings to warrant further studies from the ER nor admission to the hospital at this time. She appears much improved. Case is discussed with the patient as well as her DPOA who is at the bedside. All questions are sought and answered. Patient is stable for discharge. ECG Initial ECG Impression Date: July 06, 2020 Initial ECG Impression Time: 08:50 Initial ECG Rate: 42 Initial ECG Rhythm: S.Isaias Initial ECG Impression: Nonspecific Changes Diagnostic Imaging Diagonstic Imaging: Xray Plain Films/CT/US/NM/MRI: chest Comments [facility], [place] NAME: MAX HOOD [facility] REC#: [id number] PT STATUS: REG ER : [id number] PHYSICIAN: ARIAN WELLS MD ADMIT DATE: 07/06/20/ER Draft Date of Exam:07/06/20 CHEST 1 VIEW, AP/PA ONLY INDICATION: Chest pain and dyspnea. TECHNIQUE: AP view of the chest is obtained with comparison made to study of 01/13/2020. FINDINGS: There is mild cardiomegaly. Air trapping is seen in both lungs. There is no evidence of pneumothorax or new infiltrate. No significant pleural fluid is seen. IMPRESSION: Mild cardiomegaly and probable background emphysema. No definite acute abnormality is appreciated. Dictated on workstation # [id number] Dict: 07/06/20 1035 Trans: 07/06/20 1041 [id number] Interpreted by: LAUREL HAWLEY MD Electronically signed by: Departure Impression Primary Impression: Generalized weakness Additional Impression: Bradycardia Disposition: 01 HOME, SELF-CARE Condition: Stable Departure-Patient Inst. Decision time for Depature: 12:17 Referrals: KAYE ECHEVARRIA MD, WILLIAM J DO (PCP/Family) Primary Care Physician Patient Instructions: Generalized Weakness (DC) Add. Discharge Instructions: Stop taking your metoprolol, 25 mg twice daily. Please call and follow-up with Dr. Echevarria, your industrial ecology technician this week. Come back to the emergency room for any return of symptoms, worsening shortness of breath, chest pain nausea or any other emergent concerning symptoms. ARIAN WELLS MD July 06, 2020 10:47
[2020-07-06 11:14] LABS: BILIRUBIN,URINE NEGATIVE (NEGATIVE); CLARITY,URINE CLEAR; COLOR,URINE YELLOW; GLUCOSE, URINE (UA) NEGATIVE (NEGATIVE); KETONES,URINE NEGATIVE (NEGATIVE); LEUKOCYTE ESTERASE ,URINE NEGATIVE (NEGATIVE); NITRITE,URINE NEGATIVE (NEGATIVE); PROTEIN,URINE NEGATIVE (NEGATIVE)
[2020-07-06 11:34] LABS: BACTERIA,URINE NEGATIVE /HPF
[2020-07-06 12:28] VITALS: BP 160/68
== END 2020-07-06 12:28 | disposition home or self-care (01) ==
LOC: EDUNIT# 08:43 → ER 08:44
DX: R53.1 Weakness (principal); R00.1 Bradycardia, unspecified; I48.91 Unspecified atrial fibrillation; I10 Essential (primary) hypertension; I25.10 Atherosclerotic heart disease of native coronary artery without angina pectoris; K21.9 Gastro-esophageal reflux disease without esophagitis; F41.9 Anxiety disorder, unspecified; Z20.822 Contact with and (suspected) exposure to COVID-19; Z88.2 Allergy status to sulfonamides; Z79.01 Long term (current) use of anticoagulants; Z79.899 Other long term (current) drug therapy
CPT/HCPCS: 51701; 71045; 80053; 81000; 82550; 82553; 84484; 85025; 93005; 99284; U0002; 36415; 87635

== ENCOUNTER → 2020-07-16 | Outpatient (CLI) | payer MEDICARE ==
--- NOTE | 2020-07-16 15:36 | Diagnostic Imaging Report ---
EXAMINATION: CT head without contrast. TECHNIQUE: Multiple contiguous axial images were obtained through the brain without the use of intravenous contrast. All CT scans use one or more of the following dose optimizing techniques: automated exposure control, MA and/or KvP adjustment based on patient size and exam type or iterative reconstruction. HISTORY: Delusions. Altered mental status. COMPARISON: CT head on 11/17/2014. FINDINGS: No large acute territorial ischemia, mass, or hemorrhage. No midline shift or mass effect. Decreased attenuation is seen in the periventricular and subcortical white matter. The ventricles and cortical sulci are prominent. The basilar cisterns are patent and unremarkable. The orbits are normal. Frothy secretions are seen in the left sphenoid sinus. Mastoid air cells are clear. No soft tissue abnormality is seen. No osseus lesions or fractures are seen. IMPRESSION: 1. No large acute territorial ischemia, mass, or hemorrhage. 2. Chronic microvascular disease. 3. Generalized parenchymal volume loss. 4. Frothy secretions in the left sphenoid sinus, which may represent acute sinusitis. Dictated by: Dictated on workstation # [id number]
== END ==
LOC: RAD 14:49
PROVIDERS: ATTEND Internal Medicine
DX: G31.9 Degenerative disease of nervous system, unspecified (principal); I67.82 Cerebral ischemia
CPT/HCPCS: 70450

== ENCOUNTER 2020-07-23 08:54 | Outpatient (CLI) | payer MEDICARE ==
[~2020-07-23] VITALS: Ht 162.6 cm; Wt 68.0 kg
[2020-07-23] MEDS ORDERED: POTA10TA36 PO (09:46)
[2020-07-23] MEDS ORDERED: NITR0.4T42 SL (09:46)
[2020-07-23] MEDS ORDERED: MECL-149 PO (09:46)
[2020-07-23] MEDS ORDERED: PRD1T PO (09:46)
[2020-07-23] MEDS ORDERED: MULT-1136 PO (09:46)
[2020-07-23] MEDS ORDERED: ACET-93 PO (09:46)
[2020-07-23] MEDS ORDERED: HYDR-3817 PO (09:46)
[2020-07-23] MEDS ORDERED: CYAN250014 PO (09:46)
[2020-07-23] MEDS ORDERED: APIX5TAB PO (09:46)
[2020-07-23] MEDS ORDERED: LORA-404 PO (09:46)
[2020-07-23] MEDS ORDERED: CHOL100048 PO (09:46)
[2020-07-24] MEDS ORDERED: FAMO20TA3 PO (10:34)
[2020-07-24] MEDS ORDERED: DOCU-143 PO (10:59)
[2020-07-24] MEDS ORDERED: NYST1POW22 EXT (10:59)
[2020-07-24] MEDS ORDERED: METO5TAB2 PO (10:59)
== END 2020-07-23 11:05 | disposition home or self-care (01) ==
LOC: PREOP 08:54
PROVIDERS: ATTEND Surgery
DX: Z01.818 Encounter for other preprocedural examination (principal)

== ENCOUNTER 2020-07-24 08:06 | Day surgery (SDC) | payer MEDICARE, MEDICAID ==
[~2020-07-24] VITALS: Ht 64 cm; Wt 68.0 kg
[2020-07-24] VITALS (10 sets, daily range): BP systolic 161–189; BP diastolic 69–86
[~2020-07-24 08:06] MED LIST changes: +ACET-93 PO; +APIX5TAB PO; +CHOL100048 PO; +CYAN250014 PO; +HYDR-3817 PO; +LORA-404 PO; +MECL-149 PO; +MULT-1136 PO; +NITR0.4T42 SL; +POTA10TA36 PO; +PRD1T PO
[2020-07-24] MEDS ORDERED: LACTATED RINGERS 1,000 ML IV PRN (08:30)
[2020-07-24] MEDS ORDERED: ceFAZolin INJECTION 1,000 MG in WATER (STERILE) FOR INJECTION 10 ML IV ONE (08:30)
[2020-07-24] MEDS ORDERED: PROPOFOL INJECTION 0 ML IV ONE (08:50)
[2020-07-24] MEDS ORDERED: proPOfol 200 MG/20 ML (DIPRIVAN) VIAL IV ONE (09:13)
[2020-07-24] MEDS ORDERED: MIDAZOLAM 2 MG/2 ML (VERSED) VIAL ONE (09:13)
[2020-07-24] MEDS ORDERED: LIDOCAINE PF 2% 5 ML (XYLOCAINE) VIAL ONE (09:13)
[2020-07-24] MEDS ORDERED: ONDANSETRON 4 MG/2 ML (SDV) Z0FRAN ONE (09:13)
[2020-07-24] MEDS ORDERED: fentaNYL INJ 100 MCG/2 ML AMP ONE (09:13)
[2020-07-24] MEDS ORDERED: ROCURONIUM 10 MG/ML 5 ML SYRINGE IV ONE (09:13)
[2020-07-24] MEDS ORDERED: SEVOFLURANE (ULTANE) 15 ML INHAL SOLN ONE ×5 (09:15→10:40)
--- NOTE | 2020-07-24 09:19 | Progress Note-Pre Operative ---
Pre-Operative Progress Note H&P Reviewed The H&P was reviewed, patient examined and no changes noted. Date Seen by Provider: July 24, 2020 Time Seen by Provider: 09:19 Date H&P Reviewed: July 24, 2020 Time H&P Reviewed: 09:19 Pre-Operative Diagnosis: temporal arteritis NORMAN PITTMAN DO July 24, 2020 09:19
[2020-07-24] MEDS ORDERED: CLINDAMYCIN 600 MG/50 ML IVPB 50 ML IV ONE ×2 (09:21→10:15)
[2020-07-24] MEDS ORDERED: LIDOCAINE 1% INJ 20 ML 20 ML VIAL ONE (10:25)
[2020-07-24] MEDS ORDERED: BACITRACIN OINTMENT 28 GM TUBE ONE (10:25)
[2020-07-24] MEDS ORDERED: MUPIROCIN 2% OINT 22 GM (BACTROBAN) TUBE ONE (10:25)
[2020-07-24] MEDS ORDERED: FAMO20TA3 PO (10:34)
[2020-07-24] MEDS ORDERED: NYST1POW22 EXT (10:59)
[2020-07-24] MEDS ORDERED: DOCU-143 PO (10:59)
[2020-07-24] MEDS ORDERED: METO5TAB2 PO (10:59)
[2020-07-24] MEDS ORDERED: ONDANSETRON 4 MG/2 ML (SDV) Z0FRAN IVP PRN (11:00)
[2020-07-24] MEDS ORDERED: morphine INJ 10 MG/ML 1ML (SYR OR VIAL) IVP ONE (11:00)
[2020-07-24] MEDS ORDERED: HYDROcodone/APAP 7.5 MG/325 MG (LORTAB, LORCET PLUS) TABLET PO ONE (12:00)
--- NOTE | 2020-07-24 13:03 | Progress Note-Post Operative ---
Post-Operative Progess Note Surgeon (s)/Supervisor [employer] Shop (s) Surgeon NORMAN PITTMAN DO Supervisor [employer]: na Pre-Operative Diagnosis temporal arteritis Post-Operative Diagnosis same Procedure & Operative Findings Date of Procedure 07/24/20 Procedure Performed/Findings right temporal artery biopsy Anesthesia Type general Estimated Blood Loss Estimated blood loss (mL): minimal Specimens/Packing Specimens Removed right temporal artery NORMAN PITTMAN DO July 24, 2020 13:03
--- NOTE | 2020-07-24 13:40 | Anesthesia-General Post-Op ---
General Patient Condition Mental Status/LOC: Same as Preop Cardiovascular: Satisfactory Nausea/Vomiting: Absent Respiratory: Satisfactory Pain: Controlled Complications: Absent Post Op Complications Complications None Follow Up Care/Instructions Patient Instructions None needed. Anesthesia/Patient Condition Patient Condition Patient is doing well, no complaints, stable vital signs, no apparent adverse anesthesia problems. No complications reported per nursing. DANIELLE PERKINS CRNA July 24, 2020 13:40
--- NOTE | 2020-07-25 02:01 | OPERATIVE REPORT ---
DATE OF SERVICE: 07/24/2020 PREOPERATIVE DIAGNOSIS: Temporal arteritis. POSTOPERATIVE DIAGNOSIS: Temporal arteritis. PROCEDURE: Right temporal artery biopsy. SURGEON: Norman Villa DO ANESTHESIA: General. ESTIMATED BLOOD LOSS: Minimal. COMPLICATIONS: None. INDICATIONS: The patient is an 84-year-old female who has been treated for temporal arteritis. I have been requested to do a temporal artery biopsy. The patient understands risks and benefits and wishes to proceed with procedure. Consent was signed in the chart. DESCRIPTION OF PROCEDURE: The patient was taken to the operating suite. She was prepped and draped in sterile fashion. Timeout was performed. Doppler was used to find the right temporal artery. A 15 blade scalpel was used to make a skin incision and then cautery was used to dissect down through the subcutaneous tissues. A hemostat was then used to continue dissecting down through the subcutaneous tissues temporal artery was isolated, it was dissected around and elevated. It was suture ligated proximally and distally with 3-0 silk suture. A segment of vessel was then removed and sent for pathology. The wound was then irrigated with saline and the skin was then reapproximated using 5-0 Prolene in simple interrupted fashion. Prior to closure, local anesthetic was infiltrated. The area was then washed, and dried and sterile bandage was applied. The patient tolerated procedure well without any complications. She was taken to recovery room in stable condition. Job ID: [id number] DocumentID: [id number] Dictated Date: 07/24/2020 21:17:27 [employer] Date: 07/25/2020 02:01:12 Dictated By: NORMAN VILLA DO [facility]
== END 2020-07-24 13:50 | disposition home or self-care (01) ==
LOC: SDC 08:06
PROVIDERS: ATTEND Surgery
DX: M31.6 Other giant cell arteritis (principal); I10 Essential (primary) hypertension; I48.91 Unspecified atrial fibrillation; G47.33 Obstructive sleep apnea (adult) (pediatric); F41.9 Anxiety disorder, unspecified; K21.9 Gastro-esophageal reflux disease without esophagitis; Z79.899 Other long term (current) drug therapy; Z79.01 Long term (current) use of anticoagulants
CPT/HCPCS: 87081; 88305

== ENCOUNTER 2020-07-31 09:32 | Observation (INO) | payer MEDICARE, MEDICAID ==
[~2020-07-31] VITALS: Ht 165 cm; Wt 83.0 kg
[2020-07-31] VITALS (9 sets, daily range): BP systolic 157–202; BP diastolic 51–92
[~2020-07-31 09:32] MED LIST changes: +DOCU-143 PO; +FAMO20TA3 PO; +METO5TAB2 PO; +NYST1POW22 EXT
--- NOTE | 2020-07-31 09:53 | ED Abdominal Pain ---
General Chief Complaint: Abdominal/GI Problems Stated Complaint: HERNIA,NAUSEA, RLQ PAIN Source of Information: Patient Exam Limitations: No Limitations History of Present Illness Date Seen by Provider: Jul 31, 2020 Time Seen by Provider: 09:30 Initial Comments Patient is an 84-year-old female who presents to the emergency department today with a chief complaint of significant nausea, abdominal pain, she points more to the right lower abdomen, some chest discomfort. Patient is unclear as to when her symptoms started she thinks that she started feeling nausea last night after she ate some chili. Patient is a little slow to respond secondary to having a half of a Xanax tablet prior to EMS picking her up. Patient states that she did feel better if she could vomit. She again points to the right lower quadrant. She states she thinks she had a normal bowel movement this morning. She denies any problems with urination. No reported cough or other complaints of pain. She does at times hold onto her chest and states "it alvarez." She states that she did not want to eat chili last night but "they made me". Per review of her medical records from the residential she has a history of atrial fibrillation, anticoagulated on Eliquis. DPOA is at the bedside. Timing/Duration: 1-3 Hours Severity/Quality: Severe, Aching, Burning Location: RLQ Radiation: No Radiation Activities at Onset: None Associated Symptoms: Chest Pain, Heartburn, Nausea/Vomiting Allergies and Home Medications Allergies Coded Allergies: Sulfa (Sulfonamide Antibiotics) (Verified Allergy, Unknown, 05/19/18) Home Medications Acetaminophen 500 Mg Tablet, 500 MG PO Q6H, (Reported) Alprazolam 0.25 Mg Tablet, 0.25 MG PO TID PRN for ANXIETY, (Reported) Amlodipine Besylate 10 Mg Tablet, 10 MG PO DAILY, (Reported) Buspirone HCl 10 Mg Tablet, 10 MG PO TID, (Reported) Cholecalciferol (Vitamin D3) 25 Mcg Capsule, 25 MCG PO DAILY, (Reported) Cyanocobalamin (Vitamin B-12) Unknown Strength Tab.chew, 1,000 MCG PO DAILY, (Reported) Diltiazem HCl 360 Mg Cap.er.24h, 360 MG PO DAILY, (Reported) Docusate Sodium 100 Mg Tablet, 100 MG PO PRN PRN for CONSTIPATION, (Reported) Docusate Sodium 100 Mg Capsule, 100 MG PO DAILY, (Reported) Escitalopram Oxalate 5 Mg Tablet, 5 MG PO HS, (Reported) Famotidine 20 Mg Tablet, 20 MG PO DAILY, (Reported) Furosemide 40 Mg Tablet, 80 MG PO DAILY, (Reported) Hydrocodone/Acetaminophen 1 Each Tablet, 1 EACH PO Q6H, (Reported) Isosorbide Mononitrate 30 Mg Tab.er.24h, 30 MG PO DAILY, (Reported) Lorazepam 0.5 Mg Tablet, 0.5 MG PO BID PRN for ANXIETY, (Reported) Meclizine HCl 25 Mg Tablet, 25 MG PO PRN, (Reported) Metoclopramide HCl 5 Mg Tablet, 5 MG PO BIDAC, (Reported) Metoprolol Tartrate 25 Mg Tablet, 12.5 MG PO BID, (Reported) Multivitamin 1 Each Tablet, 1 EACH PO DAILY, (Reported) Nitroglycerin 0.4 Mg Tab.subl, 0.4 MG SL PRN, (Reported) Ondansetron HCl 4 Mg Tablet, 4 MG PO QID PRN for NAUSEA/VOMITING-1ST LINE, (Reported) Potassium Chloride 10 Meq Tab.er.prt, 10 MEQ PO BID, (Reported) Prednisone Unknown Strength Tab, Unknown Dose PO DAILY, (Reported) Patient Home Medication List Home Medication List Reviewed: Yes Review of Systems Review of Systems Constitutional: see HPI EENTM: No Symptoms Reported Respiratory: No Symptoms Reported Cardiovascular: Chest Pain Gastrointestinal: Abdominal Pain, Nausea Genitourinary: No Symptoms Reported Musculoskeletal: no symptoms reported Skin: no symptoms reported Psychiatric/Neurological: Anxiety All Other Systems Reviewed Negative Unless Noted: Yes Past Fzltshw-Tmlqrj-Kzkhfs Hx Patient Social History 2nd Hand Smoke Exposure: No Recent Hopitalizations: No Immunizations Up To Date Tetanus Booster (TDap): Unknown PED Vaccines UTD: Yes Date of Pneumonia Vaccine: Nov 17, 2014 Date of Influenza Vaccine: Nov 29, 2019 Seasonal Allergies Seasonal Allergies: No Past Medical History Surgeries: Yes (LEFT HIP REPLACEMENT; ANKLE/FOOT SX; RIGHT ANKLE FX; RIGHT KNEE REPLACEMENT) Abdominal, Appendectomy, Cardiac, Hysterectomy, Joint Replacement, Orthopedic Respiratory: Yes (SOB ON EXERTION; PULMONARY HTN ) Sleep Apnea Currently Using CPAP: No (REFUSES TO USE ) Cardiac: Yes Atrial Fibrillation, Chronic Edema/Swelling, Coronary Artery Disease, High Cholesterol, Hypertension, Irregular Heartbeat, Valvular Heart Disease Neurological: Yes Dementia Reproductive Disorders: No [employer] History: Hysterectomy, Menopausal Genitourinary: Yes Kidney Infection, UTI-Chronic Gastrointestinal: Yes (ZENKER'S DIVERTICULUM REPAIR) Abdominal Hernia, Gastroesophageal Reflux, Polyps Musculoskeletal: Yes (RIGHT ANKLE FX; RIGHT KNEE REPLACEMENT, LEFT HIP FRACTURE) Osteoporosis, Arthritis, Fractures Endocrine: No HEENT: Yes (DENTURES, GLASSES) Loss of Vision: Bilateral Cancer: No Psychosocial: Yes Anxiety Integumentary: No Blood Disorders: No Family Medical History Cardiovascular disease 19 MOTHER Neoplasm G8 BROTHER (BRAIN TUMORS X2) PSH: -ZENKER'S DIVERTICULUM REPAIR -RIGHT KNEE REPLACEMENT -RIGHT ANKLE FX/ORIF -LEFT HIP FX/ORIF -APPENDECTOMY -HYSTERECTOMY--OVARIES INTACT -SURGERY FOR BOWEL OBSTRUCTION -EGD'S/COLONOSCOPIES -CARDIAC CATH--NO INTERVENTION Physical Exam Vital Signs Vital Signs - First Documented 07/31/20 09:32 Temp 35.5 Pulse 62 Resp 16 B/P (MAP) 241/79 (132) Pulse Ox 97 O2 Delivery Room Air Capillary Refill : Height/Weight/BMI Height: 5'4.00" Weight: 140lbs. 0.0oz. 63.785218bl; 166.01 BMI Method:Stated General Appearance: WD/WN, mild distress Respiratory: lungs clear, normal breath sounds, no respiratory distress Cardiovascular: irregularly irregular Gastrointestinal: soft, abnormal bowel sounds (Hyperactive bowel sounds), tenderness (Tenderness in the bilateral right and left quadrants of the abdomen to deep palpation) Neurologic/Psychiatric: alert, oriented x 3, other (Anxious appearing mild distress) Skin: normal color, warm/dry Progress/Results/Core Measures Results/Orders Lab Results Laboratory Tests Test 07/31/20 09:45 Range/Units White Blood Count 15.2 H 4.3-11.0 10^3/uL Red Blood Count 4.80 3.80-5.11 10^6/uL Hemoglobin 15.0 11.5-16.0 g/dL Hematocrit 45 35-52 % Mean Corpuscular Volume 95 80-99 fL Mean Corpuscular Hemoglobin 31 25-34 pg Mean Corpuscular Hemoglobin Concent 33 32-36 g/dL Red Cell Distribution Width 13.4 10.0-14.5 % Platelet Count 304 130-400 10^3/uL Mean Platelet Volume 12.0 9.0-12.2 fL Immature Granulocyte % (Auto) 1 % Neutrophils (%) (Auto) 71 42-75 % Lymphocytes (%) (Auto) 15 12-44 % Monocytes (%) (Auto) 13 H 0-12 % Eosinophils (%) (Auto) 1 0-10 % Basophils (%) (Auto) 0 0-10 % Neutrophils # (Auto) 10.7 H 1.8-7.8 10^3/uL Lymphocytes # (Auto) 2.3 1.0-4.0 10^3/uL Monocytes # (Auto) 2.0 H 0.0-1.0 10^3/uL Eosinophils # (Auto) 0.1 0.0-0.3 10^3/uL Basophils # (Auto) 0.0 0.0-0.1 10^3/uL Immature Granulocyte # (Auto) 0.1 0.0-0.1 10^3/uL Neutrophils % (Manual) 72 % Lymphocytes % (Manual) 12 % Monocytes % (Manual) 15 % Eosinophils % (Manual) 1 % Kathy Cells SLIGHT Sodium Level 139 135-145 MMOL/L Potassium Level 3.9 3.6-5.0 MMOL/L Chloride Level 98 98-107 MMOL/L Carbon Dioxide Level 27 21-32 MMOL/L Anion Gap 14 5-14 MMOL/L Blood Urea Nitrogen 20 H 7-18 MG/DL Creatinine 1.10 0.60-1.30 MG/DL Estimat Glomerular Filtration Rate 47 BUN/Creatinine Ratio 18 Glucose Level 125 H 70-105 MG/DL Calcium Level 9.6 8.5-10.1 MG/DL Corrected Calcium 9.8 8.5-10.1 MG/DL Total Bilirubin 0.9 0.1-1.0 MG/DL Aspartate Amino Transf (AST/SGOT) 23 5-34 U/L Alanine Aminotransferase (ALT/SGPT) 19 0-55 U/L Alkaline Phosphatase 124 40-136 U/L Troponin I 0.039 H <0.028 NG/ML Total Protein 6.8 6.4-8.2 GM/DL Albumin 3.7 3.2-4.5 GM/DL My Orders Orders - ARIAN WELLS MD Ed Iv/Invasive Line Start (07/31/20 09:48) Cbc With Automated Diff (07/31/20 09:48) Comprehensive Metabolic Panel (07/31/20 09:48) Chest 1 View, Ap/Pa Only (07/31/20 09:48) Ekg Tracing (07/31/20 09:48) Troponin I (07/31/20 09:48) Manual Differential (07/31/20 09:45) Diphenhydramine Injection (Benadryl Inje (07/31/20 10:30) Aspirin Chewable Tablet (Baby Aspirin Ch (08/01/20 09:00) Ct Abdomen/Pelvis Wo (07/31/20 10:44) Hydralazine Injection (Apresoline Inject (07/31/20 11:15) Fentanyl Inj (Sublimaze Injection) (07/31/20 12:15) Medications Given in ED Current Medications Medications Dose Ordered Sig/Leatha Route Start Time Stop Time Status Last Admin Dose Admin Diphenhydramine HCl 12.5 mg ONCE ONCE IVP 07/31/20 10:30 07/31/20 10:32 DC 07/31/20 10:41 12.5 MG Hydralazine HCl 10 mg ONCE ONCE IV 07/31/20 11:15 07/31/20 11:16 DC 07/31/20 11:26 10 MG Vital Signs/I&O 07/31/20 09:32 Temp 35.5 Pulse 62 Resp 16 B/P (MAP) 241/79 (132) Pulse Ox 97 O2 Delivery Room Air Progress Progress Note : Time: 12:05 Progress Note Patient reevaluated complaining of significant pain now pointing to the left chest. She is a little bit more confused and not really wanting to answer my questions. She just points when I asked her where she hurts. She is breathing about 40 times a minute. Her chest x-ray is reviewed and is within normal limits. CAT scan of the abdomen and pelvis shows no acute intra-abdominal pathology. She does have a little bit of a look leukocytosis with a white blood cell count of 15,000. Her troponin is bumped up 0.039. Will discuss with the hospitalist for admission as well as Dr. Menon. The patient's last heart cath was in 2017 which showed an LAD with 40 to 50% blockage. She has underlying A. fib. She is not anticoagulated. She has no previous stents as far as I can see in the medical record. Initial ECG Impression Date: Jul 31, 2020 Initial ECG Impression Time: 09:50 Initial ECG Rate: 54 Initial ECG Rhythm: A Fib/Flutter Initial ECG Intervals RBBB Initial ECG Impression: Atrial Fibrillation Initial ECG Comparisson: Unchanged Diagnostic Imaging Diagonstic Imaging: Xray Plain Films/CT/US/NM/MRI: chest Comments [facility], [place] NAME: MAX HOOD [facility] REC#: [id number] PT STATUS: REG ER : 1935 PHYSICIAN: ARIAN WELLS MD ADMIT DATE: 07/31/20/ER Draft Date of Exam:07/31/20 CHEST 1 VIEW, AP/PA ONLY INDICATION: Chest and abdominal pain. TIME OF EXAM: 10:03 AM CORRELATION is made with prior chest 07/06/2020. FINDINGS: The heart size is stable. The lungs are clear. No infiltrate or failure is detected. No effusion or pneumothorax is detected. IMPRESSION: No acute cardiopulmonary process is detected. Dictated on workstation # [id number] Dict: 07/31/20 1002 Trans: 07/31/20 1004 [facility] [id number] Interpreted by: LUZ MARIA ARAUJO MD Electronically signed by: Departure Communication (Admissions) Time/Spoke to Admitting Phy: 12:[address] Glynn recommends admission to cardiac stepdown Impression Primary Impression: Intractable nausea and vomiting Additional Impressions: Chest pain Qualified Codes: R07.89 - Other chest pain Elevated troponin Disposition: ADMITTED INPATIENT Condition: Stable Admissions Decision to Admit Reason: Admit from ER (General) Decision to Admit/Date: Jul 31, 2020 Time/Decision to Admit Time: 12:15 Departure-Patient Inst. Referrals: SEE MUÑOZ DO (PCP/Family) Primary Care Physician ARIAN WELLS MD Jul 31, 2020 09:52
[2020-07-31 09:54] LABS: BASOPHILS % (AUTO) 0 % (0-10); EOSINOPHILS # (AUTO) 0.1 10^3/uL (0.0-0.3); EOSINOPHILS % (AUTO) 1 % (0-10); HEMATOCRIT 45 % (35-52); LYMPHOCYTES # (AUTO) 2.3 10^3/uL (1.0-4.0); LYMPHOCYTES % (AUTO) 15 % (12-44); MEAN CORPUSCULAR HEMOGLOBIN 31 pg (25-34); MEAN CORPUSCULAR HGB CONC 33 g/dL (32-36); MEAN CORPUSCULAR VOLUME 95 fL (80-99); MONOCYTES % (AUTO) 13 % (0-12); NEUTROPHILS # (AUTO) 10.7 10^3/uL (1.8-7.8); NEUTROPHILS % (AUTO) 71 % (42-75); PLATELET COUNT 304 10^3/uL (130-400); WHITE BLOOD COUNT 15.2 10^3/uL (4.3-11.0)
[2020-07-31 10:01] LABS: ALBUMIN 3.7 GM/DL (3.2-4.5)
[2020-07-31 10:03] LABS: CALCIUM 9.6 MG/DL (8.5-10.1)
[2020-07-31 10:04] LABS: TOTAL PROTEIN 6.8 GM/DL (6.4-8.2)
--- NOTE | 2020-07-31 10:05 | Diagnostic Imaging Report ---
INDICATION: Chest and abdominal pain. TIME OF EXAM: 10:03 AM CORRELATION is made with prior chest 07/06/2020. FINDINGS: The heart size is stable. The lungs are clear. No infiltrate or failure is detected. No effusion or pneumothorax is detected. IMPRESSION: No acute cardiopulmonary process is detected. Dictated by: Dictated on workstation # [id number]
[2020-07-31 10:06] LABS: BILIRUBIN,TOTAL 0.9 MG/DL (0.1-1.0)
[2020-07-31 10:08] LABS: CREATININE SERUM 1.1 MG/DL (0.60-1.30)
[2020-07-31] MEDS ORDERED: diphenhydrAMINE 50 MG/ML INJ (BENADRYL) IVP ONE (10:30)
[2020-07-31 10:39] LABS: POTASSIUM 3.9 MMOL/L (3.6-5.0)
[2020-07-31 10:40] LABS: EOSINOPHILS % (MANUAL) 1 %; LYMPHOCYTES % (MANUAL) 12 %; MONOCYTES % (MANUAL) 15 %; NEUTROPHILS % (MANUAL) 72 %
[2020-07-31 10:41] LABS: BURR CELLS SLIGHT
[2020-07-31] MEDS ORDERED: hydrALAZINE (APESOLINE) 20 MG/ML VIAL IV ONE (11:15)
--- NOTE | 2020-07-31 11:24 | Diagnostic Imaging Report ---
PROCEDURE: CT abdomen and pelvis without contrast. TECHNIQUE: Multiple contiguous axial images were obtained through the abdomen and pelvis without the use of intravenous contrast. Auto Exposure Controls were utilized during the CT exam to meet ALARA standards for radiation dose reduction. INDICATION: Right lower quadrant pain and leukocytosis. CORRELATION is made with prior CT from 09/26/2019. The heart is enlarged. The lung bases are clear. No discrete liver mass is identified. No biliary ductal dilatation is seen. The pancreas is unremarkable. The spleen appears to be surgically absent. No adrenal mass is identified. Low-attenuation lesion lower pole right kidney appears to be stable and most suggestive of a cyst. Aorta is nonaneurysmal. There continues to be a portion of the ascending colon extending into the right inguinal canal, similar to prior exam. No definite evidence of strangulation or obstruction is seen. The transverse colon again demonstrates very slight protrusion in the right para-midline anterior abdominal wall but no strangulation or obstruction is seen. Cephalad to this there is a right para-midline fat-containing ventral hernia. There are small bowel loops extending into the left inguinal canal but no evidence of strangulation or obstruction is seen. Intra-abdominal bowel loops are normal caliber. No free fluid or fluid collection is identified. Bladder is decompressed. Uterus is surgically absent. Postoperative changes to the left hip are identified. IMPRESSION: Overall similar CT abdomen and pelvis study when compared with examination from 09/26/2019. Abdominal wall hernias as well as bilateral inguinal canal hernias containing bowel loops are similar to prior exam. There is no evidence of strangulation or obstruction. Dictated by: Dictated on workstation # [id number]
[2020-07-31] MEDS ORDERED: ASPIRIN 81 MG CHEW (CHILDREN'S ASA) ONE (12:03)
[2020-07-31] MEDS ORDERED: ASPIRIN 300 MG (5 GR) SUPPOSITORY PR STA (12:12)
[2020-07-31] MEDS ORDERED: fentaNYL INJ 100 MCG/2 ML AMP IVP ONE (12:15)
--- NOTE | 2020-07-31 13:51 | Consultation-Cardiology ---
HPI-Cardiology Cardiology Consultation: Date of Consultation 07/31/20 Time Seen by a Provider: 14:25 Date of Admission 07-31-20 Attending Physician Muriel Grove MD Admitting Physician Alexis Bassett DO Consulting Physician Jaycee Vergara MD HPI: Chief Complaint: Chest pain Ms. Hood is an 84 yr old female admitted to 512 from the ED with c/o chest pain and abdominal pain. She resides in a LTC facility. She is a poor historian. She is slow to answer questions, but has received Xanax prior to ED arrival. Family x 1 at the bedside states she reported having nausea and abdo alessio pain starting yesterday which has increasing become worse. She reports she has had poor appetite last couple days. No vomitting. No diarrhea. She is not reporting any chest pain at this time, but did report to the ED a feeling of burning in her chest. She reports she has had some blood in her bowel movements, but unable to describe any further. She consistently is reporting she feels very nauseated. No report of fever. Review of Systems-Cardiology Review of Systems Other comments The ROS to the extent it could be obtained is as per HPI All Other Systems Reviewed Negative Unless Noted: Yes [id number]-Hfnwuq-Bmjdqi Hx Patient Social History 2nd Hand Smoke Exposure: No Immunizations Up To Date Tetanus Booster (TDap): Unknown Date of Pneumonia Vaccine: Nov 17, 2014 Date of Influenza Vaccine: Nov 29, 2019 Past Medical History PMH As described under Assessment. Family Medical History Family Medical History: Unable to provide any history Family History: Cardiovascular disease 19 MOTHER Neoplasm G8 BROTHER (BRAIN TUMORS X2) Allergies and Home Medications Allergies Coded Allergies: Sulfa (Sulfonamide Antibiotics) (Verified Allergy, Unknown, 05/19/18) Home Medications Acetaminophen 500 Mg Tablet, 500 MG PO Q6H, (Reported) Alprazolam 0.25 Mg Tablet, 0.25 MG PO TID PRN for ANXIETY, (Reported) Amlodipine Besylate 10 Mg Tablet, 10 MG PO DAILY, (Reported) Buspirone HCl 10 Mg Tablet, 10 MG PO TID, (Reported) Cholecalciferol (Vitamin D3) 25 Mcg Capsule, 25 MCG PO DAILY, (Reported) Cyanocobalamin (Vitamin B-12) Unknown Strength Tab.chew, 1,000 MCG PO DAILY, (Reported) Diltiazem HCl 360 Mg Cap.er.24h, 360 MG PO DAILY, (Reported) Docusate Sodium 100 Mg Tablet, 100 MG PO PRN PRN for CONSTIPATION, (Reported) Docusate Sodium 100 Mg Capsule, 100 MG PO DAILY, (Reported) Escitalopram Oxalate 5 Mg Tablet, 5 MG PO HS, (Reported) Famotidine 20 Mg Tablet, 20 MG PO DAILY, (Reported) Furosemide 40 Mg Tablet, 80 MG PO DAILY, (Reported) Hydrocodone/Acetaminophen 1 Each Tablet, 1 EACH PO Q6H, (Reported) Isosorbide Mononitrate 30 Mg Tab.er.24h, 30 MG PO DAILY, (Reported) Lorazepam 0.5 Mg Tablet, 0.5 MG PO BID PRN for ANXIETY, (Reported) Meclizine HCl 25 Mg Tablet, 25 MG PO PRN, (Reported) Metoclopramide HCl 5 Mg Tablet, 5 MG PO BIDAC, (Reported) Metoprolol Tartrate 25 Mg Tablet, 12.5 MG PO BID, (Reported) Multivitamin 1 Each Tablet, 1 EACH PO DAILY, (Reported) Nitroglycerin 0.4 Mg Tab.subl, 0.4 MG SL PRN, (Reported) Ondansetron HCl 4 Mg Tablet, 4 MG PO QID PRN for NAUSEA/VOMITING-1ST LINE, (Reported) Potassium Chloride 10 Meq Tab.er.prt, 10 MEQ PO BID, (Reported) Prednisone Unknown Strength Tab, Unknown Dose PO DAILY, (Reported) Physical Exam-Cardiology Physical Exam Vital Signs/I&O 07/31/20 07/31/20 07/31/20 09:32 14:13 14:28 Temp 35.5 Pulse 62 65 68 Resp 16 16 B/P (MAP) 241/79 (132) 182/53 Pulse Ox 97 98 O2 Delivery Room Air Room Air Capillary Refill : Less Than 3 Seconds Constitutional: AAO x 3, well-developed, well-nourished, other HEENT: PERRL, other (sutures to the right side of her face at the level of the ear, edges approx, no redness or drainage), hearing is well preserved, oral hygience is good Neck: No carotid bruit; carotid pulses are 2 + bilaterally Respiratory: No accessory muscle use, No respiratory distress; other (good air entry) Cardiovascular: irregularly irregular; No JVD; S1 and S2 Gastrointestinal: tender, soft; No guarding; audible bowel sounds (hypoactive) Extremities: no lower extremity edema bilateral Neurologic/Psychiatric: grossly intact (moves all extremities) Skin: No rash on exposed areas, No ulcerations on exposed areas Data Review Labs Laboratory Tests 07/31/20 09:45: White Blood Count 15.2H, Red Blood Count 4.80, Hemoglobin 15.0, Hematocrit 45, Mean Corpuscular Volume 95, Mean Corpuscular Hemoglobin 31, Mean Corpuscular Hemoglobin Concent 33, Red Cell Distribution Width 13.4, Platelet Count 304, Mean Platelet Volume 12.0, Immature Granulocyte % (Auto) 1, Neutrophils (%) (Auto) 71, Lymphocytes (%) (Auto) 15, Monocytes (%) (Auto) 13H, Eosinophils (%) (Auto) 1, Basophils (%) (Auto) 0, Neutrophils # (Auto) 10.7H, Lymphocytes # (Auto) 2.3, Monocytes # (Auto) 2.0H, Eosinophils # (Auto) 0.1, Basophils # (Auto) 0.0, Immature Granulocyte # (Auto) 0.1, Neutrophils % (Manual) 72, Lymphocytes % (Manual) 12, Monocytes % (Manual) 15, Eosinophils % (Manual) 1, [place] Cells SLIGHT, Sodium Level 139, Potassium Level 3.9, Chloride Level 98, Carbon Dioxide Level 27, Anion Gap 14, Blood Urea Nitrogen 20H, Creatinine 1.10, Estimat Glomerular Filtration Rate 47, BUN/Creatinine Ratio 18, Glucose Level 125H, Calcium Level 9.6, Corrected Calcium 9.8, Total Bilirubin 0.9, Aspartate Amino Transf (AST/SGOT) 23, Alanine Aminotransferase (ALT/SGPT) 19, Alkaline Phosphatase 124, Troponin I 0.039H, Total Protein 6.8, Albumin 3.7 07/31/20 14:40: Radiology NAME: MAX HOOD [facility] REC#: [id number] PT STATUS: REG ER : 1935 PHYSICIAN: ARIAN WELLS MD ADMIT DATE: 07/31/20/ER Draft Date of Exam:07/31/20 CT ABDOMEN/PELVIS WO PROCEDURE: CT abdomen and pelvis without contrast. TECHNIQUE: Multiple contiguous axial images were obtained through the abdomen and pelvis without the use of intravenous contrast. Auto Exposure Controls were utilized during the CT exam to meet ALARA standards for radiation dose reduction. INDICATION: Right lower quadrant pain and leukocytosis. CORRELATION is made with prior CT from 09/26/2019. The heart is enlarged. The lung bases are clear. No discrete liver mass is identified. No biliary ductal dilatation is seen. The pancreas is unremarkable. The spleen appears to be surgically absent. No adrenal mass is identified. Low-attenuation lesion lower pole right kidney appears to be stable and most suggestive of a cyst. Aorta is nonaneurysmal. There continues to be a portion of the ascending colon extending into the right inguinal canal, similar to prior exam. No definite evidence of strangulation or obstruction is seen. The transverse colon again demonstrates very slight protrusion in the right para-midline anterior abdominal wall but no strangulation or obstruction is seen. Cephalad to this there is a right para-midline fat-containing ventral hernia. There are small bowel loops extending into the left inguinal canal but no evidence of strangulation or obstruction is seen. Intra-abdominal bowel loops are normal caliber. No free fluid or fluid collection is identified. Bladder is decompressed. Uterus is surgically absent. Postoperative changes to the left hip are identified. IMPRESSION: Overall similar CT abdomen and pelvis study when compared with examination from 09/26/2019. Abdominal wall hernias as well as bilateral inguinal canal hernias containing bowel loops are similar to prior exam. There is no evidence of strangulation or obstruction. Dictated on workstation # [id number] Dict: 07/31/20 1114 Trans: 07/31/20 1124 [facility] [id number] Interpreted by: LUZ MARIA ARAUJO MD Electronically signed by: A/P-Cardiology Assessment/Admission Diagnosis Chest pain of undetermined etiology - currently not reporting any Abdominal pain/nausea of undetermined etiology - medical services managing Abdominal wall hernias as well as bilateral inguinal canal hernias containing bowel loops are similar to prior exam. There is no evidence of strangulation or obstruction per CTA of abd/pelvis on 07-31-20 Coronary artery disease - cardiac catheterization done on May 15, [address] Echevarria showing [id number] coronary artery disease in the LAD proximal and distal, circumflex and right coronary artery, severe hypertension Last echocardiogram was done on October 21, [address] Echevarria showing normal LV size EF 55-65 percent, left atrium is dilated 6.07 cm, right atrium dilated, mod AoR, moderate severe tricuspid regurgitation with PA pressure 40-45 mmHg CKD Chronic atrial fibrillation -maintained on Eliquis - [id number] score of 4, high risk, yearly risk of stroke without OAC is 4.0%, maintained on Eliquis Hyperlipidemia HTN Baseline EKG with right bundle branch block, left anterior fascicular block Pulmonary hypertension NIVIA - non-compliant with CPAP History of Zenker's diverticulum-status post repair by Dr. Mansfield Anxiety Mild bilateral carotid stenosis, last ultrasound was done in March [address] 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
[2020-07-31] MEDS ORDERED: ONDANSETRON 4 MG/2 ML (SDV) Z0FRAN IVP ONE (14:00)
--- NOTE | 2020-07-31 14:29 | History & Physical-Hospitalist ---
History of Present Illness HPI/Chief Complaint Pt is an 84yoCF with a PMH of a fib, HTN, anxiety who presented to the ER due to nausea and vomiting. She has just receive benadryl so is not able to give much history but does still complain of nausea and shoulder pain. Her DPOA is as bedside who states she was feeling fine yesterday but ate chili and has been ill since then. She was unable to keep anything down and had persistent vomiting so was brought in for evaluation. She couldn't to feel nauseated despite multiple IV antiemetics in the ER and was admitted for intractable nausea. She was also found to have a slightly troponin elevated. Source: patient Date Seen 07/31/20 Time Seen by a Provider: 14:18 Attending Physician Raffy Grove MD PCP Alexis Bassett DO Referring Physician Date of Admission Jul 31, 2020 at 12:14 Home Medications & Allergies Home Medications Reviewed patient Home Medication Reconciliation performed by pharmacy medication reconciliations dental technician instructor and/or nursing. Patients Allergies have been reviewed. Allergies Allergies Coded Allergies Sulfa (Sulfonamide Antibiotics) (Verified Allergy, Unknown, 05/19/18) Past Sanxyvh-Dgwdin-Lypmwj Hx Patient Social History Marrital Status: Employed/Student: retired Smoking Status: Never a Smoker Immunizations Up To Date Date of Influenza Vaccine: Nov 29, 2019 PED Vaccines UTD: Yes Date of Pneumonia Vaccine: Nov 17, 2014 Seasonal Allergies Seasonal Allergies: No Current Status Primary Language: Nauruan Past Medical History Surgeries: Abdominal, Appendectomy, Cardiac, Hysterectomy, Joint Replacement, Orthopedic Sleep Apnea Currently Using CPAP: No (REFUSES TO USE ) Atrial Fibrillation, Chronic Edema/Swelling, Coronary Artery Disease, High Cho lesterol, Hypertension, Irregular Heartbeat, Valvular Heart Disease Dementia 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: Hysterectomy, Menopausal Kidney Infection, UTI-Chronic Abdominal Hernia, Gastroesophageal Reflux, Polyps Osteoporosis, Arthritis, Fractures Loss of Vision: Bilateral Anxiety Blood Disorders: No Family Medical History Reviewed Nursing Family Hx Cardiovascular disease 19 MOTHER Neoplasm G8 BROTHER (BRAIN TUMORS X2) PSH: -ZENKER'S DIVERTICULUM REPAIR -RIGHT KNEE REPLACEMENT -RIGHT ANKLE FX/ORIF -LEFT HIP FX/ORIF -APPENDECTOMY -HYSTERECTOMY--OVARIES INTACT -SURGERY FOR BOWEL OBSTRUCTION -EGD'S/COLONOSCOPIES -CARDIAC CATH--NO INTERVENTION Review of Systems ROS-Unable to Obtain: limited due to sedation Constitutional: see HPI Cardiovascular: chest pain Gastrointestinal: abdominal pain, nausea, vomiting Physical Exam Physical Exam Vital Signs Vital Signs - First Documented 07/31/20 07/31/20 09:32 16:41 Temp 35.5 Pulse 62 Resp 16 B/P (MAP) 241/79 (132) Pulse Ox 97 O2 Delivery Room Air FiO2 28 Capillary Refill : Less Than 3 Seconds Height, Weight, BMI Height: 5'4.00" Weight: 140lbs. 0.0oz. 63.716379bf; 30.00 BMI Method:Stated General Appearance: Anxious, Chronically ill, Mild Distress HEENT: PERRL/EOMI, Moist Mucous Membranes; No Scleral Icterus (L), No Scleral Icterus (R) Neck: Normal Inspection, Supple Respiratory: Lungs Clear, No Accessory Muscle Use, No Respiratory Distress Cardiovascular: Regular Rate, Rhythm, No Murmur Gastrointestinal: Normal Bowel Sounds, Non Tender, Soft Extremity: Normal Capillary Refill, No Calf Tenderness, No Pedal Edema Neurologic/Psychiatric: Alert, Oriented x3, Normal Mood/Affect Skin: Normal Color, Warm/Dry Results Results/Procedures Labs Laboratory Tests 08/01/20 07:23 Patient resulted labs reviewed. Imaging: Reviewed Imaging Report Imaging [facility] [place], [place] NAME: MAX HOOD [facility] REC#: [id number] PT STATUS: ADM IN : 1935 PHYSICIAN: ARIAN WELLS MD ADMIT DATE: 07/31/20/[facility] Signed Date of Exam:07/31/20 CT ABDOMEN/PELVIS WO PROCEDURE: CT abdomen and pelvis without contrast. TECHNIQUE: Multiple contiguous axial images were obtained through the abdomen and pelvis without the use of intravenous contrast. Auto Exposure Controls were utilized during the CT exam to meet ALARA standards for radiation dose reduction. INDICATION: Right lower quadrant pain and leukocytosis. CORRELATION is made with prior CT from 09/26/2019. The heart is enlarged. The lung bases are clear. No discrete liver mass is identified. No biliary ductal dilatation is seen. The pancreas is unremarkable. The spleen appears to be surgically absent. No adrenal mass is identified. Low-attenuation lesion lower pole right kidney appears to be stable and most suggestive of a cyst. Aorta is nonaneurysmal. There continues to be a portion of the ascending colon extending into the right inguinal canal, similar to prior exam. No definite evidence of strangulation or obstruction is seen. The transverse colon again demonstrates very slight protrusion in the right para-midline anterior abdominal wall but no strangulation or obstruction is seen. Cephalad to this there is a right para-midline fat-containing ventral hernia. There are small bowel loops extending into the left inguinal canal but no evidence of strangulation or obstruction is seen. Intra-abdominal bowel loops are normal caliber. No free fluid or fluid collection is identified. Bladder is decompressed. Uterus is surgically absent. Postoperative changes to the left hip are identified. IMPRESSION: Overall similar CT abdomen and pelvis study when compared with examination from 09/26/2019. Abdominal wall hernias as well as bilateral inguinal canal hernias containing bowel loops are similar to prior exam. There is no evidence of strangulation or obstruction. Dictated by: Dictated on workstation # [id number] Dict: 07/31/20 1114 Trans: 07/31/20 [address] [facility] [id number] Interpreted by: LUZ MARIA ARAUJO MD Electronically signed by: LUZ MARIA ARAUJO MD 07/31/20 1609 Assessment/Plan Admission Diagnosis intractable nausea and vomiting Admission Status: Observation Assessment and Plan intractable nausea and vomiting May be atypical chest pain Continue zofran prn Add phenergan as well Consider scopolamine patch as well HTN A-fib NSTEMI pHTN Continue on home meds Cardiology consulted, appreciate recs Monitor on telemetry RAFFY GROVE MD Jul 31, 2020 14:29
[2020-07-31] MEDS ORDERED: PROMETHAZINE INJ 25 MG/ML (PHENERGAN) AMP IVP PRN (14:30)
[2020-07-31] MEDS ORDERED: ONDANSETRON 4 MG/2 ML (SDV) Z0FRAN IV PRN (14:30)
[2020-07-31] MEDS ORDERED: PANTOPRAZOLE 40 MG (PROTONIX) VIAL IV NR (14:30)
[2020-07-31] MEDS: NS IV 1000 ML 1,000 ML IV SCH (14:38)
[2020-07-31] MEDS ORDERED: NITR0.4T39 SL (15:16)
[2020-07-31] MEDS ORDERED: FAMO20TA5 PO (15:16)
[2020-07-31] MEDS ORDERED: FURO80TA3 PO (15:16)
[2020-07-31] MEDS ORDERED: CHOL20003 PO (15:16)
[2020-07-31] MEDS ORDERED: APIX2.5T PO (15:16)
[2020-07-31] MEDS ORDERED: CYAN100088 PO (15:16)
[2020-07-31] MEDS ORDERED: LORA-404 PO (15:18)
[2020-07-31] MEDS ORDERED: ACETAMINOPHEN 500 MG TAB (TYLENOL) PO PRN (15:30)
[2020-07-31] MEDS: KCL 10 MEQ TAB (MICRO K) PO SCH (17:13)
[2020-07-31] MEDS: HYDROcodone/APAP 7.5 MG/325 MG (LORTAB, LORCET PLUS) TABLET PO PRN (17:22)
[2020-07-31] MEDS: ALPRAZolam 0.25 MG (XANAX) TAB PO PRN (17:22)
[2020-07-31] MEDS ORDERED: amLODIPine 10 MG (NORVASC) TAB PO NR (17:30)
--- NOTE | 2020-07-31 17:36 | Consultation-Cardiology ---
HPI-Cardiology Cardiology Consultation: Date of Consultation 07/31/20 Time Seen by a Provider: 16:10 Date of Admission Attending Physician Muriel Grove MD Admitting Physician Alexis Bassett DO Consulting Physician JESSICA THORNTON MD, MA, FACP, FACC, FSCAI, CCDS HPI: Chief Complaint: CC: Abd pain and chest pain and nausea HPI Ms. Dickinson is an 84 yr old female admitted to 512 from the ED with c/o chest pain and abdominal pain. She resides in a LTC facility. She is a poor historian. She is slow to answer questions, but has received Xanax prior to ED arrival. Family x 1 at the bedside states she reported having nausea and abdominal pain starting yesterday which has increasing become worse. She reports she has had poor appetite last couple days. No vomitting. No diarrhea. She is not reporting any chest pain at this time, but did report to the ED a feeling of burning in her chest. She reports she has had some blood in her bowel movements, but unable to describe any further. She consistently is reporting she feels very nauseated. No report of fever. Review of Systems-Cardiology Review of Systems Constitutional: other (She does not provide a detailed ROS. To the extent a review of systems could be obtained is described above) All Other Systems Reviewed Negative Unless Noted: Yes PHR-Ftffqj-Puebye Hx Patient Social History 2nd Hand Smoke Exposure: No Have you traveled recently?: No Alcohol Use?: No Pt feels they are or have been: No Immunizations Up To Date Tetanus Booster (TDap): Unknown Date of Pneumonia Vaccine: Nov 17, 2014 Date of Influenza Vaccine: Nov 29, 2019 Past Medical History PMH As described under Assessment. Family Medical History Family Medical History: Unable to provide any history Family History: Cardiovascular disease 19 MOTHER Neoplasm G8 BROTHER (BRAIN TUMORS X2) Allergies and Home Medications Allergies Coded Allergies: Sulfa (Sulfonamide Antibiotics) (Verified Allergy, Unknown, 05/19/18) Home Medications Acetaminophen 500 Mg Tablet, 500 MG PO HS PRN for PAIN-MILD (1-4), (Reported) Last Action: Continued Alprazolam 0.25 Mg Tablet, 0.25 MG PO Q8H PRN for ANXIETY, (Reported) Last Action: Continued Apixaban 2.5 Mg Tablet, 2.5 MG PO BID, (Reported) Last Action: Continued Buspirone HCl 10 Mg Tablet, 10 MG PO TID, (Reported) Last Action: Continued Cholecalciferol (Vitamin D3) 50 Mcg Capsule, 50 MCG PO DAILY, (Reported) Last Action: Converted Cyanocobalamin (Vitamin B-12) 1,000 Mcg Tablet, 1,000 MCG PO DAILY, (Reported) Last Action: Held Docusate Sodium 100 Mg Capsule, 100 MG PO DAILY, (Reported) Last Action: Held Famotidine 20 Mg Tablet, 20 MG PO DAILY, (Reported) Last Action: Held Furosemide 80 Mg Tablet, 80 MG PO DAILY, (Reported) Last Action: Held Hydrocodone/Acetaminophen 1 Each Tablet, 1 EACH PO Q8H PRN for PAIN-MODERATE (5- 7), (Reported) Last Action: Continued Isosorbide Mononitrate 30 Mg Tab.er.24h, 30 MG PO DAILY, (Reported) Last Action: Continued Lorazepam 0.5 Mg Tablet, 0.25 MG PO BID, (Reported) TAKES OF A 0.5MG Last Action: Continued Meclizine HCl 25 Mg Tablet, 25 MG PO Q12H, (Reported) Last Action: Continued Nitroglycerin 0.4 Mg Tab.subl, 0.4 MG SL UD PRN for CHEST PAIN, (Reported) Last Action: Held Ondansetron HCl 4 Mg Tablet, 4 MG PO QID PRN for NAUSEA/VOMITING-1ST LINE, (Reported) Last Action: Held Potassium Chloride 10 Meq Tab.er.prt, 10 MEQ PO BID, (Reported) Last Action: Held Patient Home Medication List Home Medication List Reviewed: Yes Physical Exam-Cardiology Physical Exam Vital Signs/I&O 07/31/20 07/31/20 07/31/20 07/31/20 09:32 14:13 14:28 14:30 Temp 35.5 36.6 Pulse 62 65 68 66 Resp 16 16 18 B/P (MAP) 241/79 (132) 182/53 202/76 (108) Pulse Ox 97 98 97 O2 Delivery Room Air Room Air Nasal Cannula O2 Flow Rate 2.00 07/31/20 07/31/20 07/31/20 07/31/20 14:30 15:00 16:00 16:41 Temp 36.6 Pulse 79 79 79 Resp 22 14 B/P (MAP) 190/92 (141) 157/51 (88) Pulse Ox 98 97 99 99 O2 Delivery Room Air Nasal Cannula Nasal Cannula O2 Flow Rate 2.00 2.00 FiO2 28 Capillary Refill : Less Than 3 Seconds Constitutional: well-developed, well-nourished, other (She appears oriented to person and place but does not provide any detailed answers to any questions and appears intermittently confused) HEENT: PERRL, other (sutures to the right side of her face at the level of the ear, edges approx, no redness or drainage), hearing is well preserved, oral hygience is good Neck: No carotid bruit; carotid pulses are 2 + bilaterally Respiratory: No accessory muscle use, No respiratory distress; other (good air entry) Cardiovascular: irregularly irregular; No JVD; S1 and S2 Gastrointestinal: tender, soft; No guarding; audible bowel sounds (hypoactive) Extremities: no lower extremity edema bilateral Neurologic/Psychiatric: other (See above under Constitutional exam for mental state exam; she appears to be able to move all her limbs equally) Skin: No rash on exposed areas, No ulcerations on exposed areas Data Review Labs Laboratory Tests 07/31/20 09:45: White Blood Count 15.2H, Red Blood Count 4.80, Hemoglobin 15.0, Hematocrit 45, Mean Corpuscular Volume 95, Mean Corpuscular Hemoglobin 31, Mean Corpuscular Hemoglobin Concent 33, Red Cell Distribution Width 13.4, Platelet Count 304, Mean Platelet Volume 12.0, Immature Granulocyte % (Auto) 1, Neutrophils (%) (Auto) 71, Lymphocytes (%) (Auto) 15, Monocytes (%) (Auto) 13H, Eosinophils (%) (Auto) 1, Basophils (%) (Auto) 0, Neutrophils # (Auto) 10.7H, Lymphocytes # (Auto) 2.3, Monocytes # (Auto) 2.0H, Eosinophils # (Auto) 0.1, Basophils # (Auto) 0.0, Immature Granulocyte # (Auto) 0.1, Neutrophils % (Manual) 72, Lymphocytes % (Manual) 12, Monocytes % (Manual) 15, Eosinophils % (Manual) 1, Mobile Cells SLIGHT, Sodium Level 139, Potassium Level 3.9, Chloride Level 98, Carbon Dioxide Level 27, Anion Gap 14, Blood Urea Nitrogen 20H, Creatinine 1.10, Estimat Glomerular Filtration Rate 47, BUN/Creatinine Ratio 18, Glucose Level 125H, Calcium Level 9.6, Corrected Calcium 9.8, Total Bilirubin 0.9, Aspartate Amino Transf (AST/SGOT) 23, Alanine Aminotransferase (ALT/SGPT) 19, Alkaline Phosphatase 124, Troponin I 0.039H, Total Protein 6.8, Albumin 3.7 07/31/20 14:40: Troponin I 0.203H Laboratory Tests 07/31/20 09:45 A/P-Cardiology Assessment/Admission Diagnosis Uncontrolled hypertension - Echo on 07-31-20: LVEF 50-55%, mild enlargement of both atria, grade 3 diastolic dysfunction, AoV sclerosis w/o significant stenosis, mild AI, PASP 40-45 mmHg Chest pain of undetermined etiology - currently not reporting any Mild troponin elevation, likely due to type 2 MD due to uncontrolled hypertension, but cannot exclude small, acute NSTEMI - card cath offered. Pt and her POA (Cristina Talbert with whom I spoke on the phone at 5:45 pm on 07/30/20) refuse; desire conservative managment only Abdominal pain/nausea of undetermined etiology - Medical services managing - CT abd and pelvis on 07-31-20: Abdominal wall hernias as well as bilateral inguinal canal hernias containing bowel loops are similar to prior exam. There is no evidence of strangulation or obstruction Coronary artery disease - cardiac catheterization done on May 15, [address] Echevarria showing [id number] coronary artery disease in the LAD proximal and distal, circumflex and right coronary artery CKD 2 - 3 Chronic atrial fibrillation - Eliquis for stroke prophylaxis Hyperlipidemia Ch RBBB NIVIA - non-compliant with CPAP History of Zencker's diverticulum-status post repair by Dr. Mansfield Mild bilateral carotid stenosis, last ultrasound was done in March [address] Echevarria Mild confusion/dementia Discussion and Recomendations * Offered cath to eval if troponin elev may be from CAD. She and her POA refuse * Add amlodipine for bp control * Hold beta-viola if bradycardic * Continue apixaban for stroke prophylaxis ([facility] has approved) * Low-dose ASA because of a h/o mild to mod CAD (Med S[facility] has approved) * Monitor labs * I discussed her CV issues with her and her POA JESSICA THORNTON MD FACP FAC CCDS Jul 31, 2020 17:36
[2020-07-31] MEDS ORDERED: APIXABAN 2.5 MG (ELIQUIS) TABLET PO SCH (21:00)
[2020-07-31] MEDS: meTOprolol TARTRATE 25 MG (LOPRESSOR) TABLET PO SCH (21:35)
[2020-07-31] MEDS: APIXABAN 2.5 MG (ELIQUIS) TABLET PO SCH (21:36)
[2020-07-31] MEDS: LORazepam 0.5 MG (ATIVAN) TABLET PO SCH (21:36)
[2020-07-31] MEDS: busPIRone 10 MG (BUSPAR) TAB PO SCH (21:36)
[2020-07-31] MEDS: MECLIZINE 25 MG (ANTIVERT) TAB PO SCH (21:36)
[2020-08-01] VITALS (7 sets, daily range): BP systolic 100–145; BP diastolic 49–72
[2020-08-01] MEDS: NS IV 1000 ML 1,000 ML IV SCH (04:21)
[2020-08-01] MEDS: FUROSEMIDE 40 MG (LASIX) TAB PO SCH (06:22)
[2020-08-01] MEDS: ISOSORBIDE MONONITRATE 30 MG (IMDUR) TAB PO SCH (06:23)
[2020-08-01] MEDS ORDERED: ASPI81TA64 PO (07:14)
--- NOTE | 2020-08-01 07:15 | Discharge Inst-Simple/Standard ---
Discharge Inst-Standard Discharge Medications New, Converted or Re-Newed RX: Transmitted to Pharmacy Patient Instructions/Follow Up Plan of Care/Instructions/FU: Please continue to take your medications as written. Please follow up with your primary care doctor to follow up this hospital stay. Activity as Tolerated: Yes Discharge Diet: No Restrictions Return to The Hospital For: Chest pain, shortness of breath, confusion, weakness, nausea, vomiting, abdominal pain, if you feel you are getting worse. RAFFY YEE MD Aug 01, 2020 07:15
--- NOTE | 2020-08-01 07:16 | Discharge Summary ---
Diagnosis/Chief Complaint Date of Admission Jul 31, 2020 at 12:14 Date of Discharge Discharge Date: Aug 01, 2020 Admission Diagnosis intractable nausea and vomiting Primary Care Alexis Bassett DO Discharge Summary Procedures/Consulations Dr Vergara- Cardiology Discharge Physical Exam Allergies: Coded Allergies: Sulfa (Sulfonamide Antibiotics) (Verified Allergy, Unknown, 05/19/18) Vitals & I&Os Vital Signs Date Time Temp Pulse Resp B/P (MAP) Pulse Ox O2 Delivery O2 Flow Rate FiO2 08/02/20 08:00 37.3 81 20 163/76 (105) 94 Room Air 08/01/20 21:10 0.00 07/31/20 16:41 28 General Appearance: No Apparent Distress, WD/WN Respiratory: Lungs Clear, No Respiratory Distress Cardiovascular: Regular Rate, Rhythm, No Murmur Gastrointestinal: Normal Bowel Sounds, Non Tender, Soft Neurologic/Psychiatric: Alert, Oriented x3 Hospital Course Pt was admitted for NSTEMI and intractable nausea and vomiting. She was seen by cardiology and offered cath but she declined this. She was treated for her nausea and this resolved. Her symptoms resolved and she was requesting DC home. She is to DC home with medical management of NSTEMI and to follow up with Dr Villa for her path results of her recent biopsy. Labs (last 24 hrs) Patient resulted labs reviewed. Discussion & Recommendations Discharge Planning: >30 minutes discharge planning Discharge Home Medications: Active Scripts Active Children's Aspirin (Aspirin) 81 Mg Tab.chew 81 Mg PO DAILY Reported Ativan (Lorazepam) 0.5 Mg Tablet 0.25 Mg PO BID TAKES OF A 0.5MG Nitroglycerin 0.4 Mg Tab.subl 0.4 Mg SL UD PRN Furosemide 80 Mg Tablet 80 Mg PO DAILY Famotidine 20 Mg Tablet 20 Mg PO DAILY Eliquis (Apixaban) 2.5 Mg Tablet 2.5 Mg PO BID Vitamin D3 (Cholecalciferol (Vitamin D3)) 50 Mcg Capsule 50 Mcg PO DAILY B-12 (Cyanocobalamin (Vitamin B-12)) 1,000 Mcg Tablet 1,000 Mcg PO DAILY Colace (Docusate Sodium) 100 Mg Capsule 100 Mg PO DAILY Potassium Chloride 10 Meq Tab.er.prt 10 Meq PO BID Hydrocodone-Acetamin 7.5-325 (Hydrocodone/Acetaminophen) 1 Each Tablet 1 Each PO Q8H PRN Meclizine HCl 25 Mg Tablet 25 Mg PO Q12H Acetaminophen 500 Mg Tablet 500 Mg PO HS PRN Buspirone HCl 10 Mg Tablet 10 Mg PO TID Xanax (Alprazolam) 0.25 Mg Tablet 0.25 Mg PO Q8H PRN Ondansetron HCl 4 Mg Tablet 4 Mg PO QID PRN Isosorbide Mononitrate ER (Isosorbide Mononitrate) 30 Mg Tab.er.24h 30 Mg PO DAILY Instructions to patient/family Please see electronic discharge instructions given to patient. RAFFY YEE MD Aug 01, 2020 07:16
[2020-08-01 07:30] LABS: HEMATOCRIT 41 % (35-52); HEMOGLOBIN 13.5 g/dL (11.5-16.0); MEAN CORPUSCULAR HEMOGLOBIN 32 pg (25-34); MEAN CORPUSCULAR HGB CONC 33 g/dL (32-36); MEAN CORPUSCULAR VOLUME 95 fL (80-99); MEAN PLATELET VOLUME 11.5 fL (9.0-12.2); PLATELET COUNT 247 10^3/uL (130-400); WHITE BLOOD COUNT 17.9 10^3/uL (4.3-11.0)
[2020-08-01 07:39] LABS: CHLORIDE 104 MMOL/L (98-107); POTASSIUM 3.9 MMOL/L (3.6-5.0); SODIUM 138 MMOL/L (135-145)
[2020-08-01 07:40] LABS: CALCIUM 8.8 MG/DL (8.5-10.1)
[2020-08-01 07:41] LABS: GLUCOSE 81 MG/DL (70-105)
[2020-08-01 07:42] LABS: CARBON DIOXIDE 24 MMOL/L (21-32)
[2020-08-01 07:44] LABS: GFR ESTIMATED > 60
[2020-08-01 07:45] LABS: BUN/CREATININE RATIO 18
[2020-08-01] MEDS: meTOprolol TARTRATE 25 MG (LOPRESSOR) TABLET PO SCH ×2 (08:36→20:19)
[2020-08-01] MEDS: ASPIRIN 81 MG CHEW (CHILDREN'S ASA) PO SCH (08:36)
[2020-08-01] MEDS: busPIRone 10 MG (BUSPAR) TAB PO SCH ×3 (08:36→20:18)
[2020-08-01] MEDS: amLODIPine 5 MG (NORVASC) TAB PO SCH (08:36)
[2020-08-01] MEDS: VITAMIN D3 25 MCG (1,000 UNITS) TABLET PO SCH (08:36)
[2020-08-01] MEDS: KCL 10 MEQ TAB (MICRO K) PO SCH ×2 (08:36→17:15)
[2020-08-01] MEDS: APIXABAN 2.5 MG (ELIQUIS) TABLET PO SCH ×2 (08:36→20:19)
[2020-08-01] MEDS: LORazepam 0.5 MG (ATIVAN) TABLET PO SCH ×2 (08:51→19:54)
[2020-08-01] MEDS: MECLIZINE 25 MG (ANTIVERT) TAB PO SCH ×2 (08:52→20:18)
[2020-08-01] MEDS ORDERED: ISOSORBIDE MONONITRATE 30 MG (IMDUR) TAB PO SCH (09:00)
[2020-08-01] MEDS ORDERED: ASPIRIN 81 MG CHEW (CHILDREN'S ASA) PO SCH (09:00)
[2020-08-01] MEDS ORDERED: NON-FORMULARY MEDICATION 1 EA EA (Cholecalciferol (Vitamin D3) (Vitamin D3) 50 MCG) PO SCH (09:00)
[2020-08-01] MEDS ORDERED: PANTOPRAZOLE 40 MG (PROTONIX) VIAL IV SCH (09:00)
[2020-08-01] MEDS: HYDROcodone/APAP 7.5 MG/325 MG (LORTAB, LORCET PLUS) TABLET PO PRN (12:22)
--- NOTE | 2020-08-01 15:17 | Progress Note - Cardiology ---
Cardiology SOAP Progress Note Subjective: Continues to have nausea and gen malaise and weakness No cp or palp or syncope No vomiting or diarrhea No shortness of breath at rest Objective: I&O/Vital Signs 08/01/20 08/01/20 08/01/20 08/01/20 04:00 06:59 07:00 07:32 Temp 36.2 36.6 Pulse 53 63 73 Resp 18 18 B/P (MAP) 145/61 (89) 121/52 (75) Pulse Ox 94 96 91 O2 Delivery Nasal Cannula Nasal Cannula Nasal Cannula O2 Flow Rate 2.00 2.00 2.00 08/01/20 08/01/20 08/01/20 09:03 12:00 12:30 Temp 36.5 Pulse 63 56 Resp 18 B/P (MAP) 137/62 (87) Pulse Ox 95 93 O2 Delivery Nasal Cannula Nasal Cannula O2 Flow Rate 0.00 2.00 08/01/20 00:00 Intake Total 100 ml Output Total 550 ml Balance -450 ml Weight (Pounds): 140 Weight (Ounces): 0.0 Weight (Calculated Kilograms): 63.324355 Constitutional: well-developed, well-nourished, other (She appears oriented to person and place but does not provide any detailed answers to any questions and appears intermittently confused) Respiratory: No accessory muscle use, No respiratory distress; other (good air entry) Cardiovascular: irregularly irregular; No JVD; S1 and S2 Gastrointestional: tender, soft; No guarding; audible bowel sounds (hypoactive) Extremities: no lower extremity edema bilateral Neurologic/Psychiatric: other (See above under Constitutional exam for mental state exam; she appears to be able to move all her limbs equally) Skin: No rash on exposed areas, No ulcerations on exposed areas Results/Procedures: Labs Laboratory Tests 07/31/20 18:12: Troponin I 0.313*H 08/01/20 07:23: White Blood Count 17.9H, Red Blood Count 4.29, Hemoglobin 13.5, Hematocrit 41, M liu Corpuscular Volume 95, Mean Corpuscular Hemoglobin 32, Mean Corpuscular Hemoglobin Concent 33, Red Cell Distribution Width 13.7, Platelet Count 247, Mean Platelet Volume 11.5, Sodium Level 138, Potassium Level 3.9, Chloride Level 104, Carbon Dioxide Level 24, Anion Gap 10, Blood Urea Nitrogen 14, Creatinine 0.80, Estimat Glomerular Filtration Rate > 60, BUN/Creatinine Ratio 18, Glucose Level 81, Calcium Level 8.8 Laboratory Tests 07/31/20 09:45 08/01/20 07:23 A/P: Assessment: Uncontrolled hypertension, now improved Chest pain of undetermined etiology - currently not reporting any - Echo on 07-31-20: LVEF 50-55%, mild enlargement of both atria, grade 3 diastolic dysfunction, AoV sclerosis w/o significant stenosis, mild AI, PASP 40-45 mmHg Mild troponin elevation, likely due to type 2 IL due to uncontrolled hypertension, but cannot exclude small, acute NSTEMI - card cath offered. Pt and her POA (Cristina Talbert with whom I spoke on the phone at 5:45 pm on 07/30/20) refused; desire conservative managment only Abdominal pain/nausea of undetermined etiology - Medical services managing - CT abd and pelvis on 07-31-20: Abdominal wall hernias as well as bilateral inguinal canal hernias containing bowel loops are similar to prior exam. There is no evidence of strangulation or obstruction Coronary artery disease - cardiac catheterization done on May 15, [address] Echevarria showing [id number] coronary artery disease in the LAD proximal and distal, circumflex and right coronary artery CKD 2 Chronic atrial fibrillation - Eliquis for stroke prophylaxis Hyperlipidemia Ch RBBB NIVIA - non-compliant with CPAP History of Zencker's diverticulum-status post repair by Dr. Mansfield Mild bilateral carotid stenosis, last ultrasound was done in March [address] Echevarria Mild confusion/dementia Plan: * Offered cath on 07/31/20 to eval if troponin elev may be from CAD. She and her POA refused * Add amlodipine for bp control * Hold beta-viola if bradycardic * Continue apixaban for stroke prophylaxis (Med Svce has approved) * Low-dose ASA because of a h/o mild to mod CAD (Med Svce has approved) * Monitor labs JESSICA THORNTON MD FACP FAC CCDS Aug 01, 2020 15:17
[2020-08-01] MEDS ORDERED: LORazepam 1 MG (ATIVAN) TAB ONE (19:42)
[2020-08-01] MEDS: ALPRAZolam 0.25 MG (XANAX) TAB PO PRN (23:37)
[2020-08-02 03:19] VITALS: BP 136/73
[2020-08-02] MEDS: FUROSEMIDE 40 MG (LASIX) TAB PO SCH (06:05)
[2020-08-02] MEDS: ISOSORBIDE MONONITRATE 30 MG (IMDUR) TAB PO SCH (06:05)
[2020-08-02 08:00] VITALS: BP 163/76
[2020-08-02] MEDS: KCL 10 MEQ TAB (MICRO K) PO SCH ×2 (08:18→15:49)
[2020-08-02] MEDS: APIXABAN 2.5 MG (ELIQUIS) TABLET PO SCH (08:18)
[2020-08-02] MEDS: meTOprolol TARTRATE 25 MG (LOPRESSOR) TABLET PO SCH ×2 (08:18→19:50)
[2020-08-02] MEDS: ASPIRIN 81 MG CHEW (CHILDREN'S ASA) PO SCH (08:18)
[2020-08-02] MEDS: VITAMIN D3 25 MCG (1,000 UNITS) TABLET PO SCH (08:19)
[2020-08-02] MEDS: busPIRone 10 MG (BUSPAR) TAB PO SCH ×3 (08:19→19:50)
[2020-08-02] MEDS: amLODIPine 5 MG (NORVASC) TAB PO SCH (08:19)
[2020-08-02] MEDS: ALPRAZolam 0.25 MG (XANAX) TAB PO PRN ×2 (08:19→15:49)
[2020-08-02] MEDS: HYDROcodone/APAP 7.5 MG/325 MG (LORTAB, LORCET PLUS) TABLET PO PRN ×2 (08:19→19:51)
[2020-08-02] MEDS: LORazepam 0.5 MG (ATIVAN) TABLET PO SCH ×2 (08:26→19:50)
[2020-08-02] MEDS: PANTOPRAZOLE 40 MG (PROTONIX) TAB PO SCH (08:26)
[2020-08-02] MEDS: MECLIZINE 25 MG (ANTIVERT) TAB PO SCH ×2 (08:29→19:50)
--- NOTE | 2020-08-02 11:56 | Progress Note - Hospitalist ---
Subjective HPI/CC On Admission Date Seen by Provider: Aug 02, 2020 Time Seen by Provider: 11:53 Pt is an 84yoCF with a PMH of a fib, HTN, anxiety who presented to the ER due to nausea and vomiting. She is no Subjective/Events-last exam pt reports doing ok today but has some abdominal pain, Discussed plan for possible EGD with her but she is unsure if she wants this. Discussed with Dr Villa as well who will see her tomorrow. Was to dicharge yesterday but was unable to due to weakness. Objective Exam Vital Signs Vital Signs Date Time Temp Pulse Resp B/P (MAP) Pulse Ox O2 Delivery O2 Flow Rate FiO2 08/02/20 08:00 37.3 81 20 163/76 (105) 94 Room Air 08/01/20 21:10 0.00 07/31/20 16:41 28 Capillary Refill : Less Than 3 Seconds General Appearance: No Apparent Distress, WD/WN Respiratory: Lungs Clear, No Respiratory Distress Cardiovascular: Regular Rate, Rhythm, No Murmur Gastrointestinal: Normal Bowel Sounds, Soft, Tenderness (epigastric) Neurologic/Psychiatric: Alert, Other (oriented to person and place but confused about minor details) Results/Procedures Lab Patient resulted labs reviewed. Assessment/Plan Assessment and Plan Assess & Plan/Chief Complaint intractable nausea and vomiting Resolved Continue to have epigastric pain Continue PPI Surgery consulted for possible EGD, chastity held for it HTN A-fib NSTEMI pHTN Continue on home meds Cardiology consulted, appreciate recs Monitor on telemetry troponin trended up but patient and family declined cath DVT ppx: RAFFY Ayers MD Aug 02, 2020 11:56
[2020-08-02 12:00] VITALS: BP 104/60
[2020-08-02 16:07] VITALS: BP 122/68
--- NOTE | 2020-08-02 16:29 | Progress Note - Cardiology ---
Cardiology SOAP Progress Note Subjective: No shortness of breath persistent No cp or palp or syncope No n/v/d Gen malaise present Objective: I&O/Vital Signs 08/02/20 08/02/20 08/02/20 08/02/20 07:00 08:00 09:00 12:00 Temp 37.3 37.4 Pulse 83 81 79 Resp 20 16 B/P (MAP) 163/76 (105) 104/60 (75) Pulse Ox 94 96 O2 Delivery Room Air Room Air Room Air 08/02/20 08/02/20 12:29 16:07 Temp 36.4 Pulse 81 66 Resp 20 B/P (MAP) 122/68 (86) Pulse Ox 97 O2 Delivery Room Air 08/02/20 00:00 Intake Total 1910 ml Output Total 1475 ml Balance 435 ml Weight (Pounds): 140 Weight (Ounces): 0.0 Weight (Calculated Kilograms): [id number] Constitutional: well-developed, well-nourished, other (Appears confused, but is in no distress) Respiratory: No accessory muscle use, No respiratory distress; other (good air entry) Cardiovascular: irregularly irregular; No JVD; S1 and S2 Gastrointestional: tender, soft; No guarding; audible bowel sounds (hypoactive) Extremities: no lower extremity edema bilateral Neurologic/Psychiatric: other (See above under Constitutional exam for mental s fuentes exam; she appears to be able to move all her limbs equally) Skin: No rash on exposed areas, No ulcerations on exposed areas Results/Procedures: Labs Laboratory Tests 08/01/20 07:23 A/P: Assessment: Uncontrolled hypertension, now improved Chest pain of undetermined etiology - currently not reporting any - Echo on 07-31-20: LVEF 50-55%, mild enlargement of both atria, grade 3 diastolic dysfunction, AoV sclerosis w/o significant stenosis, mild AI, PASP 40-45 mmHg Mild troponin elevation, likely due to type 2 [place] due to uncontrolled hypertension, but cannot exclude small, acute NSTEMI - card cath offered. Pt and her POA (Cristina Talbert with whom I spoke on the phone at 5:45 pm on 07/30/20) refused; desire conservative managment only Abdominal pain/nausea of undetermined etiology - Medical services managing - CT abd and pelvis on 07-31-20: Abdominal wall hernias as well as bilateral inguinal canal hernias containing bowel loops are similar to prior exam. There is no evidence of strangulation or obstruction Coronary artery disease - cardiac catheterization done on May 15, [address] Echevarria showing [id number] coronary artery disease in the LAD proximal and distal, circumflex and right coronary artery CKD 2 Chronic atrial fibrillation - Eliquis for stroke prophylaxis Hyperlipidemia Ch RBBB NIVIA - non-compliant with CPAP History of Zencker's diverticulum-status post repair by Dr. Mansfield Mild bilateral carotid stenosis, last ultrasound was done in March [address] Echevarria Mild confusion/dementia Plan: * Continue current regimen * Continue apixaban for stroke prophylaxis ([facility] has approved) * Low-dose ASA because of a h/o mild to mod CAD ([facility] has approved) * Monitor labs JESSICA THORNTON MD FACP [facility] Aug 02, 2020 16:29
[2020-08-02 19:32] VITALS: BP 125/73
[2020-08-02 23:55] VITALS: BP 147/81
[2020-08-03 04:56] VITALS: BP 159/71
[2020-08-03] MEDS: ISOSORBIDE MONONITRATE 30 MG (IMDUR) TAB PO SCH (06:16)
[2020-08-03] MEDS: FUROSEMIDE 40 MG (LASIX) TAB PO SCH (06:20)
[2020-08-03 08:00] VITALS: BP 170/72
[2020-08-03] MEDS: ASPIRIN 81 MG CHEW (CHILDREN'S ASA) PO SCH ×2 (09:00→09:05)
[2020-08-03] MEDS: PANTOPRAZOLE 40 MG (PROTONIX) TAB PO SCH ×2 (09:00→09:04)
[2020-08-03] MEDS: VITAMIN D3 25 MCG (1,000 UNITS) TABLET PO SCH ×2 (09:00→09:04)
[2020-08-03] MEDS: meTOprolol TARTRATE 25 MG (LOPRESSOR) TABLET PO SCH ×3 (09:00→19:48)
[2020-08-03] MEDS: KCL 10 MEQ TAB (MICRO K) PO SCH ×3 (09:00→18:49)
[2020-08-03] MEDS: amLODIPine 5 MG (NORVASC) TAB PO SCH ×2 (09:00→09:05)
[2020-08-03] MEDS: MECLIZINE 25 MG (ANTIVERT) TAB PO SCH ×3 (09:00→19:48)
[2020-08-03] MEDS: busPIRone 10 MG (BUSPAR) TAB PO SCH ×3 (09:04→19:48)
[2020-08-03] MEDS: LORazepam 0.5 MG (ATIVAN) TABLET PO SCH ×2 (09:05→19:48)
--- NOTE | 2020-08-03 09:30 | Cardiology Progress Note ---
Subjective Date Seen by Provider: Aug 03, 2020 Time Seen by Provider: 08:45 Subjective/Events-last exam Patient sitting up in bed, oriented to place and self. Appears slightly confused today. Denies any chest pain. Review of Systems General: No Chills, No Night Sweats; Fatigue, Malaise; No Appetite, No Other HEENT: No Head Aches, No Visual Changes, No Eye Pain, No Ear Pain, No D ysphasia, No Sinus Congestion, No Post Nasal Drip, No Sore Throat, No Other Pulmonary: No Dyspnea, No Cough, No Pleuritic Chest Pain, No Other Cardiovascular: No: Chest Pain, Palpitations, Orthopnea, Paroxysmal Noc. Dyspnea, Edema, Lt Headedness, Other Objective-Cardiology Exam Last Set of Vital Signs Vital Signs 07/31/20 08/01/20 08/03/20 08/03/20 16:41 21:10 08:00 09:00 Temp 36.8 Pulse 88 Resp 18 B/P (MAP) 170/72 (104) Pulse Ox 94 O2 Delivery Room Air O2 Flow Rate 0.00 FiO2 28 Capillary Refill : Less Than 3 Seconds I&O Intake and Output 08/03/20 00:00 Intake Total 2027 ml Output Total 1520 ml Balance 507 ml Intake Oral 2027 ml Output Urine Total 1520 ml # Voids 5 # Bowel Movements 2 General: Alert, Cooperative HEENT: Atraumatic, PERRLA Neck: Supple Lungs: Clear to Auscultation, Normal Air Movement Heart: Regular Rate, Normal S1 Abdomen: Normal Bowel Sounds, Soft Extremities: No Edema Skin: No Rashes, No Significant Lesion Neuro: Cranial Nerves 3-12 NL Psych/Mental Status: Other (confused and slightly agitated this morning) A/P-Cardiology Admission Diagnosis Chest pain Type II [place] CAD HTN Assessment/Plan Uncontrolled hypertension, better controlled, continue to monitor. Chest pain of undetermined etiology - currently not reporting any. Echo on 07-31-20: LVEF 50-55%, mild enlargement of both atria, grade 3 diastolic dysfunction, AoV sclerosis w/o significant stenosis, mild AI, PASP 40-45 mmHg Mild troponin elevation, likely due to type 2 [place] due to uncontrolled hypertension, but cannot exclude small, acute NSTEMI. card cath offered. Pt and her POA (Cristina Talbert) refused; desire conservative managment only. Continue on ASA, I recommend conservative management, I agree with the family on not proceeding with any procedure or intervention Abdominal pain/nausea of undetermined etiology - Medical services managing, reports improvement. CT abd and pelvis on 07-31-20: Abdominal wall hernias as well as bilateral inguinal canal hernias containing bowel loops are similar to prior exam. There is no evidence of strangulation or obstruction Coronary artery disease, cardiac catheterization done on May 15, [address] Echevarria showing [id number] coronary artery disease in the LAD proximal and distal, circumflex and right coronary artery CKD 2, management per PCP Chronic atrial fibrillation, Eliquis for stroke prophylaxis Hyperlipidemia, monitored as outpatient Ch RBBB NIVIA - non-compliant with CPAP History of Zencker's diverticulum-status post repair by Dr. Mansfield Mild bilateral carotid stenosis, last ultrasound was done in March 2019 Mild confusion/dementia, appears slightly confused and agitated this morning. Patient was seen and evaluated with Yusra, examination performed, management plan was discussed, agree with the current scribed note, I made few changes to the note using Italic font Patient was seen at bedside, sitting comfortably in a chair, confused and agitated Denied any active chest pain Reviewed of the events since admission, discussed the management plan with Dr. Marina I will continue to titrate her blood pressure medication to achieve adequate control Regarding her type II myocardial infarction I recommend conservative management, I will increase isosorbide dose at this time Monitor renal function and blood pressure I recommend long-term nursing facility, patient is unable to take care of herself YUSRA BURROUGHS Aug 03, 2020 09:30 KAYE ECHEVARRIA MD Aug 03, 2020 11:44
--- NOTE | 2020-08-03 10:26 | Physical Therapy Evaluation ---
PT Evaluation-General Medical Diagnosis Admission Date Jul 31, 2020 at 12:14 Medical Diagnosis: intractable N&V, elevated troponin/CP Onset Date: Jul 31, 2020 Therapy Diagnosis Therapy Diagnosis: generalized weakness/debility Height/Weight Height (Feet): 5 Height (Inches): 4.00 Weight (Pounds): 140 Weight (Ounces): 0.0 Precautions Precautions/Isolations: Fall Prevention, Standard Precautions Referral Physician: Perfecto Reason for Referral: Evaluation/Treatment Medical History Pertinent Medical History: Atrial Fib, CAD, Dementia, GERD, HTN Current History EMS secondary to abdominal pain Reviewed History: Yes Prior Prior Level of Function SCALE: Activities may be completed with or without assistive devices. 2-Mvqgnsgbfk-fvifwnp completes the activity by him/herself with no assistance from a helper. 5-Set-up or Clean-up Assistance-helper sets up or cleans up; patient completes activity. [place] assists only prior to or following the activity. 4-Supervision or Touching Assistance-helper provides verbal cues and/or touching/steadying and/or contact guard assistance as patient completes act ivity. Assistance may be provided throughout the activity or intermittently. 3-Partial/Moderate Assistance-helper does LESS THAN HALF the effort. Valmy lifts, holds or supports trunk or limbs, but provides less than half the effort. 2-Substantial/Maximal Assistance-helper does MORE THAN HALF the effort. [place] lifts or holds trunk or limbs and provides more than half the effort. 3-Zhyvglbjx-gbgzpm does ALL the effort. Patient does none of the effort to complete the activity. Or, the assistance of 2 or more helpers is required for the patient to complete the activity. If activity was not attempted, code reason: 7-Patient Refused. 9-Not Applicable-not attempted and the patient did not perform the activity before the current illness, exacerbation or injury. 10-Not Attempted due to Environmental Limitations-(lack of equipment, weather restraints, etc.). 88-Not Attempted due to Medical Conditions or Safety Concerns. Bed Mobility: 4 Transfers (B,C,W/C): 4 Gait: 4 Indoor Mobility (Ambulation): Needed Some Help Prior Devices Use: Walker PT Evaluation-Current Subjective Patient is very confused and talking to people in the room (no one present). Patient also states, "There is smoke and you need to get these people out of here." (no smoke) Objective Patient Orientation: Confused (very agitated) ROM/Strength ROM Lower Extremities bilateral LE WFL Strength Lower Extremities 3/5 grossly bilateral LE Integumentary/Posture Integumentary refer to nursing notes Posture kyphotic Neuromuscular (Tone, Coordination, Reflexes) grossly intact Sensory Vision: Wears Glasses Hearing: Functional Transfers Sit to Stand (QC): 2 Gait Does the Patient Walk?: Yes Mode of Locomotion: Walk Anticipated Mode of Locomotion: Walk Walk 10 feet (QC): 2 Walk 50 ft with 2 Turns(QC): 7 Walk 150 ft (QC): 7 Distance: 10' Gait Assistive Device: FWW Comments/Gait Description ceased ambulation requiring max assist to attain sitting in recliner safely Balance Sitting Static: Fair Sitting Dynamic: Fair Standing Static: Fair Standing Dynamic: Fair Assessment/Needs 84 y.o. female, will benefit from skilled PT to address functional strength and mobility to improve current LOF. Patient is severely confused and agitated on this date. Per DPOA, patient is not normally like this. 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 PT Retirement Goals Time Frame: Aug 15, 2020 Roll Left & Right (QC): 4 Sit to Lying (QC): 4 Lying-Sitting on Side/Bed(QC): 4 Sit to Stand (QC): 4 Chair/Hzb-ef-Vuvdk Xfer(QC): 4 Toilet Transfer (QC): 4 Does the Patient Walk: Yes Walk 10 feet (QC): 4 Walk 50ft with 2 Turns (QC): 4 Walk 150 ft (QC): 4 PT Plan Problem List Problem List: Activity Tolerance, Functional Strength, Safety, Balance, Gait, Transfer, Bed Mobility Treatment/Plan Treatment Plan: Continue Plan of Care Treatment Plan: Bed Mobility, Education, Functional Activity Bryanna, Functional Strength, Gait, Safety, Therapeutic Exercise, Transfers Treatment Duration: Aug 15, 2020 Frequency: 6 times per week Estimated Hrs Per Day: .25 hour per day Patient and/or Family Agrees t: Yes Time/GCodes Time In: 955 Time Out: 1004 Total Billed Treatment Time: 9 Total Billed Treatment 1 visit EVModC 9 min URVASHI OLMEDO PT Aug 03, 2020 10:26
--- NOTE | 2020-08-03 11:11 | Consultation - Surgery ---
History of Present Illness History of Present Illness Patient Consulted On(erin/time) 08/03/20 09:06 Date Seen by Provider: Aug 03, 2020 Time Seen by Provider: 09:06 History of Present Illness Consult requested by Dr. Grove for epigastric abdominal pain. Patient is an 84 year old female who has been having episodes of epigastric pain. Currently it has resolved. She feels it associated with her incisional hernia. She is on Protonix currently. She has stated before she does not want anything done. Reports having nausea and vomiting. Nothing makes worse or better. She is having some confusion at this time. Ct scan abdomen and pelvis showed incisional and b/l inguinal hernia. Allergies and Home Medications Allergies Coded Allergies: Sulfa (Sulfonamide Antibiotics) (Verified Allergy, Unknown, 05/19/18) Home Medications Acetaminophen 500 Mg Tablet, 500 MG PO HS PRN for PAIN-MILD (1-4), (Reported) Last Action: Continued Alprazolam 0.25 Mg Tablet, 0.25 MG PO Q8H PRN for ANXIETY, (Reported) Last Action: Continued Apixaban 2.5 Mg Tablet, 2.5 MG PO BID, (Reported) Last Action: Continued Aspirin 81 Mg Tab.chew, 81 MG PO DAILY Prescribed by: RAFFY GROVE on 08/01/20 0714 Buspirone HCl 10 Mg Tablet, 10 MG PO TID, (Reported) Last Action: Continued Cholecalciferol (Vitamin D3) 50 Mcg Capsule, 50 MCG PO DAILY, (Reported) Last Action: Converted Cyanocobalamin (Vitamin B-12) 1,000 Mcg Tablet, 1,000 MCG PO DAILY, (Reported) Last Action: Held Docusate Sodium 100 Mg Capsule, 100 MG PO DAILY, (Reported) Last Action: Held Famotidine 20 Mg Tablet, 20 MG PO DAILY, (Reported) Last Action: Held Furosemide 80 Mg Tablet, 80 MG PO DAILY, (Reported) Last Action: Held Hydrocodone/Acetaminophen 1 Each Tablet, 1 EACH PO Q8H PRN for PAIN-MODERATE (5- 7), (Reported) Last Action: Continued Isosorbide Mononitrate 30 Mg Tab.er.24h, 30 MG PO DAILY, (Reported) Last Action: Continued Lorazepam 0.5 Mg Tablet, 0.25 MG PO BID, (Reported) TAKES OF A 0.5MG Last Action: Continued Meclizine HCl 25 Mg Tablet, 25 MG PO Q12H, (Reported) Last Action: Continued Nitroglycerin 0.4 Mg Tab.subl, 0.4 MG SL UD PRN for CHEST PAIN, (Reported) Last Action: Held Ondansetron HCl 4 Mg Tablet, 4 MG PO QID PRN for NAUSEA/VOMITING-1ST LINE, (Reported) Last Action: Held Potassium Chloride 10 Meq Tab.er.prt, 10 MEQ PO BID, (Reported) Last Action: Held Patient Home Medication List Home Medication List Reviewed: Yes Past Ptjlgrz-Basgrx-Lqeiau Hx Patient Social History Smoking Status: Never a Smoker 2nd Hand Smoke Exposure: No Recent Hopitalizations: No Alcohol Use?: No Have you traveled recently?: No Immunizations Up To Date Tetanus Booster (TDap): Unknown PED Vaccines UTD: Yes Date of Pneumonia Vaccine: Nov 17, 2014 Date of Influenza Vaccine: Nov 29, 2019 Seasonal Allergies Seasonal Allergies: No Surgeries History of Surgeries: Yes (LEFT HIP REPLACEMENT; ANKLE/FOOT SX; RIGHT ANKLE FX; RIGHT KNEE REPLACEMENT) Surgeries: Abdominal, Appendectomy, Cardiac, Hysterectomy, Joint Replacement, Orthopedic Respiratory History of Respiratory Disorde: Yes (SOB ON EXERTION; PULMONARY HTN ) Respiratory Disorders: Sleep Apnea Cardiovascular History of Cardiac Disorders: Yes Cardiac Disorders: Atrial Fibrillation, Chronic Edema/Swelling, Coronary Artery Disease, High Cholesterol, Hypertension, Irregular Heartbeat, Valvular Heart Disease Neurological History of Neurological Disord: Yes Neurological Disorders: Dementia Reproductive System Hx Reproductive Disorders: No 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, 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 Genitourinary History of Genitourinary Disor: Yes Genitourinary Disorders: Kidney Infection, UTI-Chronic Gastrointestinal History of Gastrointestinal Di: Yes (ZENKER'S DIVERTICULUM REPAIR) Gastrointestinal Disorders: Abdominal Hernia, Gastroesophageal Reflux, Polyps Musculoskeletal History of Musculoskeletal Dis: Yes (RIGHT ANKLE FX; RIGHT KNEE REPLACEMENT, LEFT HIP FRACTURE) Musculoskeletal Disorders: Osteoporosis, Arthritis, Fractures Endocrine History of Endocrine Disorders: No HEENT History of HEENT Disorders: Yes (DENTURES, GLASSES) Loss of Vision: Bilateral Cancer History of Cancer: No Psychosocial History of Psychiatric Problem: Yes Behavioral Health Disorders: Anxiety Integumentary History of Skin or Integumenta: No Blood Transfusions History of Blood Disorders: No Reviewed Nursing Assessment Reviewed/Agree w Nursing PMH: Yes Family Medical History Significant Family History: No Pertinent Family Hx Family Medial History: Cardiovascular disease 19 MOTHER Neoplasm G8 BROTHER (BRAIN TUMORS X2) Review of Systems-General Constitutional: No chills, No diaphoresis EENTM: No blurred vision, No double vision Respiratory: No cough, No dyspnea on exertion Cardiovascular: No chest pain, No palpitations Gastrointestinal: see HPI, abdominal pain; No constipation; nausea, vomiting Genitourinary: No decreased output, No discharge Musculoskeletal: No back pain, No gout, No joint pain Skin: No change in color, No change in hair/nails Psychiatric/Neurological: Anxiety; Denies Depressed All Other Systems Reviewed Negative Unless Noted: Yes (Negative excepted noted.) Physical Exam-General Problems Physical Exam Vital Signs Vital Signs - First Documented 07/31/20 07/31/20 09:32 16:41 Temp 35.5 Pulse 62 Resp 16 B/P (MAP) 241/79 (132) Pulse Ox 97 O2 Delivery Room Air FiO2 28 Capillary Refill : Less Than 3 Seconds General Appearance: no apparent distress, other (weak appearing) HEENT: PERRL/EOMI, normal ENT inspection Neck: non-tender, supple Respiratory: chest non-tender, no respiratory distress Cardiovascular: no JVD, irregularly irregular Gastrointestinal: non tender, soft; No guarding, No rebound, No tenderness; hernia Rectal: deferred Back: no CVA tenderness, no vertebral tenderness Extremities: non-tender, normal inspection Neurologic/Psychiatric: hardboard supervisor II-XII nml as tested, alert (but some confusion) Skin: normal color, warm/dry Lymphatic: no adenopathy Assessment/Plan Assessment/Plan Assessment/Plan epigastric abd pain nausea vomiting fci anticoagulation incisional and b/l inguinal hernia does not want to have egd tolerating diet this morning keep on protonix to cover for gi etiology Continue medical management NORMAN PITTMAN DO Aug 03, 2020 11:11
[2020-08-03 12:00] VITALS: BP 156/72
--- NOTE | 2020-08-03 12:23 | Progress Note - Hospitalist ---
Subjective HPI/CC On Admission Date Seen by Provider: Aug 03, 2020 Time Seen by Provider: 10:05 Pt is an 84yoCF with a PMH of a fib, HTN, anxiety who presented to the ER due to nausea and vomiting. She has just receive benadryl so is not able to give much history but does still complain of nausea and shoulder pain. Her DPOA is as bedside who states she was feeling fine yesterday but ate chili and has been ill since then. She was unable to keep anything down and had persistent vomiting so was brought in for evaluation. She couldn't to feel nauseated despite multiple IV antiemetics in the ER and was admitted for intractable nausea. She was also found to have a slightly troponin elevated. Subjective/Events-last exam She is confused today. She denies any pain. She denies any trouble breathing. She denies any vomiting. She has no other complaints or concerns. Objective Exam Vital Signs Vital Signs Date Time Temp Pulse Resp B/P (MAP) Pulse Ox O2 Delivery O2 Flow Rate FiO2 08/03/20 09:00 Room Air 08/03/20 08:00 36.8 88 18 170/72 (104) 94 08/01/20 21:10 0.00 07/31/20 16:41 28 Capillary Refill : Less Than 3 Seconds General Appearance: No Apparent Distress, Obese Respiratory: Lungs Clear, Normal Breath Sounds, No Respiratory Distress Cardiovascular: Regular Rate, Rhythm, No Edema, No Murmur Gastrointestinal: Normal Bowel Sounds, Non Tender, Soft Extremity: Normal Inspection, Non Tender, No Pedal Edema Neurologic/Psychiatric: Alert, Disoriented Skin: Normal Color, Warm/Dry Results/Procedures Lab Patient resulted labs reviewed. Imaging: Reviewed Imaging Report Assessment/Plan Assessment and Plan Assess & Plan/Chief Complaint Intractable nausea and vomiting Resolved Continue PPI Surgery consulted, patient denied EGD HTN A-fib NSTEMI pHTN Continue on home meds Cardiology consulted, appreciate recs Monitor on telemetry troponin trended up but patient and family declined cath Delirium Likely dementia Reorient as needed DVT ppx: already receiving therapeutic anticoagulation Diagnosis/Problems Diagnosis/Problems (1) NSTEMI (non-ST elevation myocardial infarction) Status: Acute (2) Delirium Status: Acute (3) Dementia Status: Acute (4) Intractable nausea and vomiting Status: Resolved Resolution Date/Time: 08/03/20 @ 12:26 MICHELLE DÍAZ MD Aug 03, 2020 12:23
[2020-08-03 16:00] VITALS: BP 131/66
[2020-08-03] MEDS: HYDROcodone/APAP 7.5 MG/325 MG (LORTAB, LORCET PLUS) TABLET PO PRN (18:49)
[2020-08-03] MEDS: ISOSORBIDE MONONITRATE 60 MG (IMDUR) TAB PO SCH (20:03)
[2020-08-03 20:10] VITALS: BP 162/70
[2020-08-03] MEDS: ALPRAZolam 0.25 MG (XANAX) TAB PO PRN (23:01)
[2020-08-03 23:04] VITALS: BP 136/63
[2020-08-04 05:00] VITALS: BP 146/75
[2020-08-04] MEDS: FUROSEMIDE 40 MG (LASIX) TAB PO SCH (06:31)
[2020-08-04 08:00] VITALS: BP 129/60
--- NOTE | 2020-08-04 08:27 | Cardiology Progress Note ---
Subjective Date Seen by Provider: Aug 04, 2020 Time Seen by Provider: 08:25 Subjective/Events-last exam Patient is asleep in bed, no apparent distress. Review of Systems General: No Chills, No Night Sweats; Fatigue, Malaise; No Appetite, No Other Pulmonary: No Dyspnea, No Cough, No Pleuritic Chest Pain, No Other Cardiovascular: No: Chest Pain, Palpitations, Orthopnea, Paroxysmal Noc. Dyspnea, Edema, Lt Headedness, Other Objective-Cardiology Exam Last Set of Vital Signs Vital Signs 07/31/20 08/01/20 08/04/20 08/04/20 16:41 21:10 05:00 06:58 Temp 36.7 Pulse 63 Resp 20 B/P (MAP) 146/75 (98) Pulse Ox 90 O2 Delivery Room Air O2 Flow Rate 0.00 FiO2 28 Capillary Refill : Less Than 3 Seconds I&O Intake and Output 08/04/20 00:00 Intake Total 800 ml Output Total 200 ml Balance 600 ml Intake Oral 800 ml Output Urine Total 200 ml # Voids 7 General: Alert, Cooperative HEENT: Atraumatic, PERRLA Neck: Supple Lungs: Clear to Auscultation, Normal Air Movement Heart: Regular Rate, Normal S1 Abdomen: Normal Bowel Sounds, Soft Extremities: No Edema Skin: No Rashes, No Significant Lesion Neuro: Cranial Nerves 3-12 NL Psych/Mental Status: Other (confused and slightly agitated this morning) A/P-Cardiology Admission Diagnosis Chest pain Type II [place] CAD HTN Assessment/Plan Hypertension, better controlled today, continue on current medications and monitor Chest pain of undetermined etiology - currently not reporting any. Echo on 07-31-20: LVEF 50-55%, mild enlargement of both atria, grade 3 diastolic dysfunction, AoV sclerosis w/o significant stenosis, mild AI, PASP 40-45 mmHg Mild troponin elevation, likely due to type 2 [place] due to uncontrolled hypertension, but cannot exclude small, acute NSTEMI. card cath offered. Pt and her POA (Cristina Talbert) refused; desire conservative managment only. Continue on ASA, recommend conservative management, agree with the family on not proceeding with any procedure or intervention Abdominal pain/nausea of undetermined etiology - Medical services managing, reports improvement. CT abd and pelvis on 07-31-20: Abdominal wall hernias as well as bilateral inguinal canal hernias containing bowel loops are similar to prior exam. There is no evidence of strangulation or obstruction Coronary artery disease, cardiac catheterization done on May 15, [address] Echevarria showing [id number] coronary artery disease in the LAD proximal and distal, circumflex and right coronary artery CKD 2, management per PCP Chronic atrial fibrillation, Eliquis for stroke prophylaxis Hyperlipidemia, monitored as outpatient Ch RBBB NIVIA - non-compliant with CPAP History of Zencker's diverticulum-status post repair by Dr. 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 Patient was seen and evaluated with Yusra, examination performed, management plan was discussed, agree with the current scribed note, I made few changes to the note using Italic font Patient was seen at bedside laying down comfortably, sleepy, no new complaint Blood pressure is better controlled Continue with conservative management, okay for discharge and follow-up as an outpatient by cardiology Supervisory-Addendum Brief Supervisory Addendum Participated in pt care: history, MDM, physical Personally performed: exam, history, MDM Care discussed with: YUSRA MATUTE Aug 04, 2020 08:27 KAYE ECHEVARRIA MD Aug 04, 2020 08:34
[2020-08-04] MEDS ORDERED: LORazepam 1 MG (ATIVAN) TAB ONE (08:30)
[2020-08-04] MEDS: MECLIZINE 25 MG (ANTIVERT) TAB PO SCH (09:20)
[2020-08-04] MEDS: ISOSORBIDE MONONITRATE 60 MG (IMDUR) TAB PO SCH (09:20)
[2020-08-04] MEDS: busPIRone 10 MG (BUSPAR) TAB PO SCH ×2 (09:20→13:01)
[2020-08-04] MEDS: amLODIPine 5 MG (NORVASC) TAB PO SCH (09:21)
[2020-08-04] MEDS: KCL 10 MEQ TAB (MICRO K) PO SCH (09:21)
[2020-08-04] MEDS: ASPIRIN 81 MG CHEW (CHILDREN'S ASA) PO SCH (09:21)
[2020-08-04] MEDS: meTOprolol TARTRATE 25 MG (LOPRESSOR) TABLET PO SCH (09:21)
[2020-08-04] MEDS: LORazepam 0.5 MG (ATIVAN) TABLET PO SCH (09:21)
[2020-08-04] MEDS: VITAMIN D3 25 MCG (1,000 UNITS) TABLET PO SCH (09:21)
[2020-08-04] MEDS: PANTOPRAZOLE 40 MG (PROTONIX) TAB PO SCH (09:21)
--- NOTE | 2020-08-04 09:58 | Physical Therapy Daily Note ---
PT Daily Note-Current Subjective Patient more agreeable to participate with therapy today. Mental Status Patient Orientation: Confused Transfers SCALE: Activities may be completed with or without assistive devices. 1-[id number]-[id number] completes the activity by him/herself with no assistance from a helper. 5-Set-up or Clean-up Assistance-helper sets up or cleans up; patient completes activity. [place] assists only prior to or following the activity. 4-Supervision or Touching Assistance-helper provides verbal cues and/or touching /steadying and/or contact guard assistance as patient completes activity. Assistance may be provided throughout the activity or intermittently. 3-Partial/Moderate Assistance-helper does LESS THAN HALF the effort. [place] lifts, holds or supports trunk or limbs, but provides less than half the effort. 2-Substantial/Maximal Assistance-helper does MORE THAN HALF the effort. [place] lifts or holds trunk or limbs and provides more than half the effort. 0-Maypausmy-kzbhiw does ALL the effort. Patient does none of the effort to complete the activity. Or, the assistance of 2 or more helpers is required for the patient to complete the activity. If activity was not attempted, code reason: 7-Patient Refused. 9-Not Applicable-not attempted and the patient did not perform the activity before the current illness, exacerbation or injury. 10-Not Attempted due to Environmental Limitations-(lack of equipment, weather restraints, etc.). 88-Not Attempted due to Medical Conditions or Safety Concerns. Roll Left & Right (QC): 2 Sit to Lying (QC): 2 Lying to Sitting/Side of Bed(Q: 2 Sit to Stand (QC): 3 Gait Training Does the Patient Walk?: Yes Distance: 15' Walk 10 feet (QC): 3 Gait Assistive Device: FWW slow, shuffle gait sequence with VC's for body placement in FWW Assessment Patient returned to bed with needs met. DPOA present during session. PT Snf Goals [employer] Goals PT Snf Goals Time Frame: Aug 15, 2020 Roll Left & Right (QC): 4 Sit to Lying (QC): 4 Lying-Sitting on Side/Bed(QC): 4 Sit to Stand (QC): 4 Chair/Qxm-ua-Uzwuz Xfer(QC): 4 Toilet Transfer (QC): 4 Does the Patient Walk: Yes Walk 10 feet (QC): 4 Walk 50ft with 2 Turns (QC): 4 Walk 150 ft (QC): 4 PT Plan Treatment/Plan Treatment Plan: Continue Plan of Care Treatment Plan: Bed Mobility, Education, Functional Activity Bryanna, Functional Strength, Gait, Safety, Therapeutic Exercise, Transfers Treatment Duration: Aug 15, 2020 Frequency: 6 times per week Estimated Hrs Per Day: .25 hour per day Patient and/or Family Agrees t: Yes Time/GCodes Time In: 915 Time Out: 925 Total Billed Treatment Time: 10 Total Billed Treatment 1 visit GT 10 min URVASHI OLMEDO PT Aug 04, 2020 09:58
[2020-08-04] MEDS ORDERED: ISOS60TA63 PO (11:20)
[2020-08-04 11:43] VITALS: BP 121/57
[2020-08-04 15:15] VITALS: BP 121/57
== END 2020-08-04 11:17 | disposition hospice, home (50) ==
LOC: EDUNIT# 09:32 → ER 09:33 → CSD 12:14 → UNDOADMOB 12:14 → INTOOBSV 12:14 → CSD 14:20 → 4TH 08-01 14:28 → CSD 08-01 14:28 → UNDODISOB 08-04 15:15
PROVIDERS: ADMIT Family Medicine; ATTEND Internal Medicine
DX: I21.A1 Myocardial infarction type 2 (principal); I25.10 Atherosclerotic heart disease of native coronary artery without angina pectoris; I48.20 Chronic atrial fibrillation, unspecified; I27.20 Pulmonary hypertension, unspecified; I12.9 Hypertensive chronic kidney disease with stage 1 through stage 4 chronic kidney disease, or unspecified chronic kidney disease; I16.0 Hypertensive urgency; I65.23 Occlusion and stenosis of bilateral carotid arteries; I45.10 Unspecified right bundle-branch block; G47.30 Sleep apnea, unspecified; E78.00 Pure hypercholesterolemia, unspecified; N39.0 Urinary tract infection, site not specified; N18.30 Chronic kidney disease, stage 3 unspecified; K21.9 Gastro-esophageal reflux disease without esophagitis; M19.90 Unspecified osteoarthritis, unspecified site; M81.0 Age-related osteoporosis without current pathological fracture; E78.5 Hyperlipidemia, unspecified; F03.90 Unspecified dementia, unspecified severity, without behavioral disturbance, psychotic disturbance, mood disturbance, and anxiety; F41.9 Anxiety disorder, unspecified; Z79.899 Other long term (current) drug therapy; Z79.891 Long term (current) use of opiate analgesic; Z91.19 Patient's noncompliance with other medical treatment and regimen; Z90.89 Acquired absence of other organs; Z90.710 Acquired absence of both cervix and uterus; Z80.8 Family history of malignant neoplasm of other organs or systems
CPT/HCPCS: 71045; 74176; 80048; 80053; 84484; 85007; 85027 ×2; 93005; 93306; 94760 ×2; 96374; 96375; 97116; 97162; 99284; G0378 ×2; 36415